=== PATIENT | male | born 1945 | race Caucasian/White ===

== ENCOUNTER → 2016-04-11 | Outpatient (CLI) | payer OTHER ==
[~2016-04-11] MED LIST: ADVIN25050 INH; ALBU0.08 INH; ALBUAER2 INH; ASPEC81 PO; ATEN-175 PO; ATOR-26 PO; CALC500C70 PO; DIGO0.2518 PO; FURO20TA PO; HYDR-5688 PO; KRIL1CAP14 PO; MOME50SP5; MULT-506 PO; SNG10 PO; XRL10 PO
[2016-04-11 12:16] LABS: HEMATOCRIT 48.1 % (42-52); MEAN CELL VOLUME 97.4 fL (80-100); MEAN CORPUSCULAR HEMOGLOBIN 32.6 pg (25-34); MEAN CORPUSCULAR HGB CONC 33.5 g/dl (32-36); PLATELET COUNT 244 K/uL (130-400); RED BLOOD COUNT 4.94 M/uL (4.7-6.1); WHITE BLOOD COUNT 9.59 K/uL (4.8-10.8)
[2016-04-11 12:26] LABS: ALT/SGPT 34 U/L (12-78); AST/SGOT 25 U/L (15-37); BLOOD UREA NITROGEN 19 mg/dl (7-18); BUN/CREATININE RATIO 20.4 (10-20); CALCIUM 8.9 mg/dl (8.5-10.1); CARBON DIOXIDE 31 mmol/L (21-32); CHLORIDE 105 mmol/L (98-107); CREATININE 0.94 mg/dl (0.60-1.40); GLUCOSE 90 mg/dl (70-99); POTASSIUM 4.4 mmol/L (3.5-5.1); SODIUM 144 mmol/L (136-145)
[2016-04-11 12:37] LABS: ALKALINE PHOSPHATASE 84 U/L (45-117)
== END | disposition home or self-care (01) ==
LOC: C.LAB1850 10:23
PROVIDERS: ATTEND Internal Medicine Cardiovascular Disease
DX: R53.83 Other fatigue (principal)

== ENCOUNTER → 2016-05-03 | Outpatient (CLI) | payer OTHER ==
--- NOTE | 2016-05-03 09:29 | DIAGNOSTIC IMAGING REPORT ---
TWO VIEW CHEST CLINICAL HISTORY: COPD. FINDINGS: PA and lateral chest radiographs are compared to study dated 04/14/2015. Correlation is made with chest CT dated 01/07/2014. The examination is degraded by large body habitus. The heart is enlarged and there is atherosclerotic calcification of the thoracic aorta. The pulmonary vasculature is noncongested. Emphysema and chronic interstitial thickening are similar to previous. There is no evidence of superimposed airspace consolidation or pleural effusion. Linear atelectasis is seen at the left lung base. There is no pneumothorax. The skeletal structures are osteopenic. A right shoulder arthroplasty is unchanged again noted. Lumbar fusion hardware is partially imaged. IMPRESSION: 1. Cardiomegaly and emphysema with no active disease in the chest. 2. No concerning pulmonary nodules are identified by x-ray. Note that chest x-ray is insensitive in screening for lung cancer. If there is strong clinical concern for lung cancer then a chest CT should be considered. Electronically signed by: Nicolas Duenas M.D. 05/03/2016 9:28 AM Dictated Date/Time: 05/03/2016 9:26 AM
== END | disposition home or self-care (01) ==
LOC: C.RAD1850 09:11
PROVIDERS: ATTEND Internal Medicine Pulmonary Disease
DX: J44.9 Chronic obstructive pulmonary disease, unspecified (principal); I51.7 Cardiomegaly

== ENCOUNTER → 2016-11-07 | Outpatient (CLI) | payer OTHER ==
[2016-11-07 12:42] LABS: BASO % 0.3 %; BASO ABS # 0.02 K/uL (0-0.2); COMPLETE YES; EOS % 2.5 %; HEMATOCRIT 47.4 % (42-52); IG% 0.2 %; LYMPH % 18.7 %; LYMPH ABS # 1.11 K/uL (1.2-3.4); MEAN CELL VOLUME 105.3 fL (80-100); MEAN CORPUSCULAR HEMOGLOBIN 36.2 pg (25-34); MEAN CORPUSCULAR HGB CONC 34.4 g/dl (32-36); MONO % 10.3 %; PLATELET COUNT 194 K/uL (130-400); WHITE BLOOD COUNT 5.94 K/uL (4.8-10.8)
[2016-11-07 12:57] LABS: ALT/SGPT 45 U/L (12-78); AST/SGOT 38 U/L (15-37); BLOOD UREA NITROGEN 19 mg/dl (7-18); BUN/CREATININE RATIO 18.6 (10-20); CALCIUM 8.5 mg/dl (8.5-10.1); CARBON DIOXIDE 28 mmol/L (21-32); CHLORIDE 105 mmol/L (98-107); GLUCOSE 141 mg/dl (70-99); SODIUM 141 mmol/L (136-145)
[2016-11-07 13:02] LABS: ALKALINE PHOSPHATASE 68 U/L (45-117); CHOLESTEROL 155 mg/dl (0-200); CHOLESTEROL/HDL RATIO 2.9; HDL CHOLESTEROL 54 mg/dl; LDL CHOLESTEROL CALCULATED 74 mg/dl; PROSTATE SPECIFIC ANTIGEN < 0.010 ng/ml (0.000-4.000); TRIGLYCERIDES 136 mg/dl (0-150); VERY LOW DENSITY LIPOPROT CALC 27 mg/dl
== END | disposition home or self-care (01) ==
LOC: C.LABBFT 08:58
PROVIDERS: ATTEND Internal Medicine
DX: E78.5 Hyperlipidemia, unspecified (principal); R53.83 Other fatigue; I25.10 Atherosclerotic heart disease of native coronary artery without angina pectoris; C61 Malignant neoplasm of prostate

== ENCOUNTER → 2017-03-13 | Outpatient (CLI) | payer OTHER ==
[2017-03-13 13:01] LABS: ESTIMATED AVERAGE GLUCOSE 128 mg/dl; HA1C FLAG Normal (Normal)
== END | disposition home or self-care (01) ==
LOC: C.LABBFT 09:21
PROVIDERS: ATTEND Physician Assistant Medical
DX: R73.09 Other abnormal glucose (principal); L03.115 Cellulitis of right lower limb

== ENCOUNTER → 2017-05-24 | Outpatient (CLI) | payer OTHER ==
[2017-05-24 12:04] LABS: BASO % 0.3 %; BASO ABS # 0.02 K/uL (0-0.2); EOS % 1.6 %; EOS ABS # 0.12 K/uL (0-0.5); HEMATOCRIT 48.2 % (42-52); HEMOGLOBIN 16.9 g/dL (14.0-18.0); IG# 0.02 K/uL (0.00-0.02); LYMPH % 17.9 %; LYMPH ABS # 1.33 K/uL (1.2-3.4); MEAN CELL VOLUME 102.8 fL (80-100); MEAN CORPUSCULAR HGB CONC 35.1 g/dl (32-36); MEAN PLATELET VOLUME 10.7 fL (7.4-10.4); MONO % 10.9 %; MONO ABS # 0.81 K/uL (0.11-0.59); NEUT ABS # 5.14 K/uL (1.4-6.5); PLATELET COUNT 212 K/uL (130-400); RED CELL DISTRIBUTION WIDTH CV 13.8 % (11.5-14.5); RED CELL DISTRIBUTION WIDTH SD 51.7 fL (36.4-46.3); WHITE BLOOD COUNT 7.44 K/uL (4.8-10.8)
[2017-05-24 12:15] LABS: ALBUMIN 3.4 gm/dl (3.4-5.0); ALT/SGPT 49 U/L (12-78); AST/SGOT 47 U/L (15-37); BLOOD UREA NITROGEN 22 mg/dl (7-18); CALCIUM 8.9 mg/dl (8.5-10.1); CARBON DIOXIDE 33 mmol/L (21-32); CREATININE 0.92 mg/dl (0.60-1.40); GLUCOSE 102 mg/dl (70-99); SODIUM 139 mmol/L (136-145)
[2017-05-24 12:18] LABS: ALKALINE PHOSPHATASE 64 U/L (45-117); TOTAL PROTEIN 7.2 gm/dl (6.4-8.2)
== END | disposition home or self-care (01) ==
LOC: C.LAB1850 10:25
PROVIDERS: ATTEND Internal Medicine Cardiovascular Disease
DX: G47.30 Sleep apnea, unspecified (principal)

== ENCOUNTER 2017-10-24 05:03 | Inpatient (IN) | payer OTHER ==
[2017-09-19 08:36] VITALS: BMI 42.0
--- NOTE | 2017-09-24 08:36 | PAT Medication Instructions ---
Service Date Sep 24, 2017. Current Home Medication List Albuterol Hfa (Ventolin Hfa), 2-4 PUFFS INH Q6H PRN for SOB/Wheezing Aspirin (Aspirin Adult Low Dose), 1 TAB PO QAM Atenolol (Tenormin), 200 MG PO BID Atorvastatin (Lipitor), 80 MG PO HS Calcium/Vitamin D (Os-Kostas 500 Plus D), 1 TAB PO BID Digoxin (Digoxin), 1 TAB PO QAM Fluticasone Prop/Salmeterol (Advair Diskus 250/50 60 Dose), 1 PUFF INH BID Furosemide (Furosemide), 2 TAB PO QAM Ipratropium [place] (Ipratropium [place]), 1 DOSE INH Q6 PRN for SOB/Wheezing Mometasone Furoate (Nasal) (Mometasone Furoate), 2 SPRAYS NA HS Montelukast Sod (Montelukast Sodium), 1 TAB PO QAM Multivitamin (Multivitamin), 1 TAB PO QPM Naproxen (Aleve), 2 TABS PO BID Potassium Ext Rel (Klor-Con), 1 TAB PO QAM Rivaroxaban (Xarelto), 2 TAB PO QAM [ Klor-Con], 10 MEQ PO BID [[place] 3 Krill Oil], 500 MG PO QAM Medication Instructions For Your Scheduled Surgery -Check with your hand embroiderer for instructions for: Rivaroxaban (Xarelto), 2 TAB PO QAM *MUST BE HELD FOR AT LEAST 72 HOURS FOR SPINAL ANESTHESIA* - Hold the following medications 2 weeks prior to surgery: [[place] 3 Krill Oil], 500 MG PO QAM - Hold the following medications 10 days prior to surgery per surgeon: Naproxen (Aleve), 2 TABS PO BID - Hold the following medications the morning of surgery: Furosemide (Furosemide), 2 TAB PO QAM Montelukast Sod (Montelukast Sodium), 1 TAB PO QAM Potassium Ext Rel (Klor-Con), 1 TAB PO QAM [ Klor-Con], 10 MEQ PO BID - Take the following medications the morning of surgery with a sip of water: Albuterol Hfa (Ventolin Hfa), 2-4 PUFFS INH Q6H PRN for SOB/Wheezing (if needed , and bring it with you the day of surgery) Aspirin (Aspirin Adult Low Dose), 1 TAB PO QAM Atenolol (Tenormin), 200 MG PO BID Digoxin (Digoxin), 1 TAB PO QAM Fluticasone Prop/Salmeterol (Advair Diskus 250/50 60 Dose), 1 PUFF INH BID Ipratropium [place] (Ipratropium [place]), 1 DOSE INH Q6 PRN for SOB/Wheezing ( if needed) - Take the following medications as scheduled the night before surgery: Albuterol Hfa (Ventolin Hfa), 2-4 PUFFS INH Q6H PRN for SOB/Wheezing (if needed) Atenolol (Tenormin), 200 MG PO BID Atorvastatin (Lipitor), 80 MG PO HS Calcium/Vitamin D (Os-Kostas 500 Plus D), 1 TAB PO BID Ipratropium [place] (Ipratropium [place]), 1 DOSE INH Q6 PRN for SOB/Wheezing ( if needed) Mometasone Furoate (Nasal) (Mometasone Furoate), 2 SPRAYS NA HS Multivitamin (Multivitamin), 1 TAB PO QPM [ Klor-Con], 10 MEQ PO BID If you have any questions please call us at [phone] or [phone] or [phone]
--- NOTE | 2017-09-24 09:01 | DIAGNOSTIC IMAGING REPORT ---
CHEST 2 VIEWS ROUTINE HISTORY: Preop. COMPARISON: Chest 05/03/2016. FINDINGS: The heart remains borderline enlarged. Mild interstitial thickening which appears to be chronic. Linear densities at the left lung base favor subsegmental atelectasis or scarring. No new focal lung consolidations. No pleural effusions. No pneumothorax. Right shoulder prosthesis and lumbar spinal fusion hardware is noted. IMPRESSION: No significant change compared to the prior study. No acute process. Electronically signed by: Sudeep Wolff M.D. 09/24/2017 9:00 AM Dictated Date/Time: 09/24/2017 8:58 AM
[2017-09-24 09:03] LABS: BASO % 0.5 %; BASO ABS # 0.03 K/uL (0-0.2); EOS % 2.6 %; EOS ABS # 0.17 K/uL (0-0.5); HEMATOCRIT 46.7 % (42-52); IG# 0.02 K/uL (0.00-0.02); LYMPH ABS # 1.16 K/uL (1.2-3.4); MEAN CELL VOLUME 102.4 fL (80-100); MEAN CORPUSCULAR HEMOGLOBIN 35.1 pg (25-34); MEAN CORPUSCULAR HGB CONC 34.3 g/dl (32-36); MEAN PLATELET VOLUME 10.1 fL (7.4-10.4); MONO % 12.1 %; MONO ABS # 0.78 K/uL (0.11-0.59); NEUT % 66.5 %; NEUT ABS # 4.28 K/uL (1.4-6.5); PLATELET COUNT 216 K/uL (130-400); RED CELL DISTRIBUTION WIDTH CV 13.5 % (11.5-14.5); RED CELL DISTRIBUTION WIDTH SD 50.2 fL (36.4-46.3); WHITE BLOOD COUNT 6.44 K/uL (4.8-10.8)
[2017-09-24 09:11] LABS: INR 1.4 (0.9-1.1); PTT PATIENT 30.7 SECONDS (21.0-31.0)
[2017-09-24 09:12] LABS: BLOOD UREA NITROGEN 17 mg/dl (7-18); CALCIUM 8.8 mg/dl (8.5-10.1); CARBON DIOXIDE 32 mmol/L (21-32); CREATININE 0.86 mg/dl (0.60-1.40); GLUCOSE 130 mg/dl (70-99); POTASSIUM 4.2 mmol/L (3.5-5.1); SODIUM 140 mmol/L (136-145)
--- NOTE | 2017-10-08 12:15 | HISTORY & PHYSICAL EXAMINATION ---
DATE OF ADMISSION: 10/24/2017 CHIEF COMPLAINT: Right hip pain, discomfort, and stiffness. HISTORY OF PRESENT ILLNESS: A 72-year-old gentleman well known to me from previous left hip replacement done 8 years ago and a troch nail done on this right side 4 years ago. He has done pretty well. He has got a long history of alcohol abuse and his left hip was done for AVN. Over the past year, he has developed increased pain and discomfort in his right hip. He did have extensive back surgery by Dr. Bravo. We have seen him in consultation and he has told him that he thinks most of his pain is coming from his hip. This does describe some degree of lateral hip pain and groin pain. He has difficulty putting his shoes and socks on. He says difficulty walking any distance. He uses a cane to try and get along for quite some time now. X-ray show progressive hip arthritis and he would like to have his right hip fixed. PAST MEDICAL HISTORY: Significant for: 1. Coronary artery disease, status post cardiac stent placement done by Dr. Luna. 2. Emphysema/COPD. 3. Sleep apnea with CPAP machine. 4. Extensive back surgery and fusion. 5. Arthritis. 6. Prostate cancer. 7. Obesity with BMI of 42. PAST SURGICAL HISTORY: Include: 1. Left hip replacement done 04/22/2009. 2. Right troch nail done 04/05/2013. 3. Right shoulder replacement. 4. Extensive back surgery. 5. Prostate surgery. 6. Umbilical hernia. ALLERGIES: OXYCODONE, LATEX. CURRENT MEDICINES: Include: 1. Xarelto 20 mg a day. 2. Digoxin 250 mcg a day. 3. Atenolol 200 mg twice a day. 4. Furosemide 20 mg a day. 5. Atorvastatin 80 mg at bedtime. 6. Advair Diskus at bedtime. 7. Albuterol 2 puffs p.r.n. 8. Ipratropium nebulizer every 6 hours p.r.n. 9. Nasonex 2 sprays at bedtime each nostril. 10. Aspirin 81 mg a day. 11. Calcium with vitamin D. 12. Multivitamin. 13. MegaRed Krill oil. 14. Montelukast 10 mg a day. 15. Klor-Con 10 mEq twice a day. 16. Aleve 2 tablets twice a day. SOCIAL HISTORY: A 72-year-old male. He is . Drinks 25 drinks per week. Does not smoke. FAMILY HISTORY: Noncontributory. REVIEW OF SYSTEMS: Significant for alcohol history. Denies any chest pain or shortness of breath. No history of DVT or PE. He is on Xarelto. PHYSICAL EXAMINATION: GENERAL: A large moderately obese middle-aged male. HEENT: Benign. NECK: Supple. No lymphadenopathy. LUNGS: Clear to auscultation. HEART: Regular rate and rhythm. ABDOMEN: Soft, nontender, nondistended. EXTREMITIES: Grossly neurovascularly intact. Examination of the right hip reveals the patient walks with antalgic gait. He comes in using a cane. He is about a 0.5 cm short on the right side compared to left. He has a very stiff hip with pain with any type of hip motion. He can internally rotate to -5. He is neurologically intact. Negative straight leg raise. X-RAYS: X-ray of the right hip reviewed. Shows advanced right hip DJD. He has got a long troch nail in place. Hip x-ray shows progressive arthritis over the past year. He does have a pretty extensive spine fusion. ASSESSMENT: A 72-year-old male 4 years out from right long troch nail for fracture and significant alcohol use with advanced right hip arthritis after previous spine surgery. He failed conservative care. I do think some of his pain is coming from his hip, but I cannot certainly guarantee him all of it by any sense. PLAN: We talked about treatment. He would like to have his hip replaced. We will take him to the operating room and do a right hip hardware removal. We are going to need to take the troch nail out and do a noncemented total hip replacement. The risks and benefits of this procedure were explained to the patient including, but not limited to DVT, PE, , infection, neurological injury, vascular injury, bleeding problem, pain, limited range of motion, stiffness, failure to relieve his symptoms, incomplete relief of symptoms, need for further surgery in future, fracture, leg length inequality, nerve palsy, dislocation, etc. The patient understands and desires to proceed. Informed consent was obtained. We did talk about stopping his Xarelto 3 days preop. We will likely have Dr. Luna follow him in the hospital along with his automotive sales associate. We will start him back on the Xarelto 24 hours postoperative at a lower dose and discharge him on therapeutic dose. We did talk to him about taking his atenolol on the morning of surgery and holding his Lasix, potassium, Aleve, and Xarelto.
[~2017-10-24] VITALS: Ht 170.2 cm; Wt 122.7 kg
[2017-10-24] VITALS (18 sets, daily range): BP systolic 103–151; BP diastolic 54–92; PULSE 54–88; TEMP 36.4–36.8; O2SAT 91–98; Ht 170.2 cm; Wt 122.7 kg
[~2017-10-24 05:03] MED LIST changes: +ADVIN25/60 INH; -ADVIN25050 INH; -ALBU0.08 INH; -ALBUAER2 INH; -ASPEC81 PO; +ASPI-589 PO; -CALC500C70 PO; -DIGO0.2518 PO; -FURO20TA PO; -HYDR-5688 PO; -KRIL1CAP14 PO; +LNX25 PO; +LSX40 PO; -MOME50SP5; +MOME6000; +NAPR1TAB9 PO; +OMEGA 3 KRILL OIL PO; +POTA-639 PO; +RRIPRATNEB INH; +VNTHFA/IN INH
[2017-10-24] MEDS ORDERED: PRLSR20 PO (05:56)
[2017-10-24] MEDS ORDERED: LACTATED RINGER'S 1000ML IV SCH (06:00)
[2017-10-24] MEDS ORDERED: METOCLOPRAMIDE HCL 10 MG TAB PO SCH (06:00)
[2017-10-24] MEDS ORDERED: ACETAMINOPHEN 500 MG TAB PO SCH (06:00)
[2017-10-24] MEDS ORDERED: FAMOTIDINE 20 MG TAB PO SCH (06:00)
[2017-10-24] MEDS ORDERED: CEFAZOLIN 3000MG IV PUSH 22.5 ML IV SCH (06:00)
[2017-10-24] MEDS ORDERED: LACTATED RINGER'S 1000ML 1,000 ML IV SCH (06:00)
[2017-10-24] MEDS ORDERED: TRANEXAMIC ACID INJ 1,000 MG x 1 Bag Preop IV SCH ×2 (06:00)
[2017-10-24] MEDS ORDERED: GABAPENTIN 300 MG CAP PO SCH (06:00)
[2017-10-24 06:05] LABS: PTT PATIENT 23.4 SECONDS (21.0-31.0)
[2017-10-24] MEDS ORDERED: BUPIVACAINE 0.5 % 5 MG/1 ML PF 10ML VIAL ONE (06:19)
[2017-10-24] MEDS ORDERED: MIDAZOLAM HCL 1 MG/ML 2ML VIAL ONE (06:27)
[2017-10-24] MEDS ORDERED: FENTANYL CITRATE INJ 50 MCG/1 ML 2 ML VIAL ONE (06:27)
[2017-10-24] MEDS ORDERED: MoRPHine SULFATE PF 1 MG/ML 10 ML AMP/VIAL ONE (06:28)
--- NOTE | 2017-10-24 06:49 | History & Physical Bridge Note ---
H&P Re-Evaluation Bridge Note: I have examined the patient, reviewed the History & Physical and in the interval since the performance of the History & Physical I have noted the following changes of clinical significance: No changes noted
[2017-10-24] MEDS ORDERED: BACITRACIN 50000 UNIT VIAL ONE (06:50)
[2017-10-24] MEDS ORDERED: BUPIVACAINE/EPINEPHRINE 0.5% MPF 1:200,000 30 ML VIAL ONE (06:50)
[2017-10-24] MEDS ORDERED: ONDANSETRON INJ 2 MG/ML 2 ML VIAL ONE (08:17)
[2017-10-24] MEDS ORDERED: PROPOFOL IV EMULSION 10 MG/ML 20 ML VIAL ONE ×2 (08:17→09:10)
[2017-10-24] MEDS ORDERED: LIDOCAINE HCL 2% 2 ML VIAL (20MG/ML) ONE (08:17)
[2017-10-24] MEDS ORDERED: SODIUM CHLORIDE 0.9% 1000ML 1,000 ML IV PRN (08:59)
[2017-10-24] MEDS ORDERED: NALOXONE HCL INJ 0.08 MG in SYRINGE 1.8 ML IV PRN (08:59)
[2017-10-24] MEDS ORDERED: LACTATED RINGER'S 1000ML 500 ML IV PRN (08:59)
[2017-10-24] MEDS ORDERED: NALOXONE HCL INJ 1 MG in SODIUM CHLORIDE 0.9% 1000ML 1,000 ML IV PRN ×4 (08:59)
[2017-10-24] MEDS ORDERED: ONDANSETRON INJ 2 MG/ML 2 ML VIAL IV PRN ×2 (09:00)
[2017-10-24] MEDS ORDERED: NALBUPHINE HCL INJ 10 MG/ML 1ML AMP IV PRN (09:00)
[2017-10-24] MEDS ORDERED: NO NARCOTICS OR SEDATIVES SCH (09:00)
[2017-10-24] MEDS ORDERED: NALOXONE HCL 0.4 MG/1 ML VIAL/CARP IV PRN (09:00)
[2017-10-24] MEDS ORDERED: EpHEDrine SULFATE INJ 50 MG/ML AMP IV PRN ×2 (09:00)
[2017-10-24] MEDS ORDERED: MoRPHine SULFATE PF 1 MG/ML 10 ML AMP/VIAL EPI PRN (09:00)
[2017-10-24] MEDS ORDERED: PROMETHAZINE HCL INJ 12.5 MG in SODIUM CHLORIDE 0.9% 50ML 50 ML IV PRN (09:00)
[2017-10-24] MEDS ORDERED: MEPERIDINE HCL 25 MG/ML CARP IV PRN ×2 (09:00)
[2017-10-24] MEDS ORDERED: PHENYLEPHRINE 100MCG/ML 5ML SYR IV PRN (09:00)
[2017-10-24] MEDS ORDERED: DiphenhydrAMINE HCL 50 MG/ML VIAL IV PRN (09:00)
[2017-10-24] MEDS ORDERED: KETOROLAC TROMETHAMINE 15 MG/ML VIAL IV. PRN ×2 (09:00)
[2017-10-24] MEDS ORDERED: ATROPINE SULFATE 0.1 MG/ML 5ML SYR IV PRN (09:00)
[2017-10-24] MEDS ORDERED: TAMSULOSIN HCL 0.4 MG CAP PO PRN (09:30)
[2017-10-24] MEDS ORDERED: ALUMINUM/MAGNESIUM/SIMETH (MAALOX MAX) 30 ML UDC PO PRN (09:30)
[2017-10-24] MEDS ORDERED: IPRATROPIUM BROMIDE NEB SOLN 0.02% 2.5 ML VIAL INH PRN (09:30)
[2017-10-24] MEDS ORDERED: BISACODYL 10 MG SUPP PR PRN (09:30)
[2017-10-24] MEDS ORDERED: ALBUTEROL HFA 8 GM INHALER INH PRN (09:30)
[2017-10-24] MEDS ORDERED: SILVER SULFADIAZINE 1% CR 50 GM JAR EXT PRN (09:30)
[2017-10-24] MEDS ORDERED: MAGNESIUM HYDROXIDE SUSP 30 ML UDC PO PRN (09:30)
--- NOTE | 2017-10-24 09:30 | [facility] Post Operative Brief Note ---
Immediate Operative Summary Operative Date Oct 24, 2017. Pre-Operative Diagnosis Advanced Right Hip Degenerative Joint Disease, With A Long Troch Nail In Place. Post-Operative Diagnosis Advanced Right Hip Degenerative Joint Disease, With A Long Troch Nail In Place. Procedure(s) Performed Right Femur Hardware Removal Right Uncemented Total Hip Arthroplasty Surgeon Rug Measurer Surgeon(s) ALEXANDRA Hensley Estimated Blood Loss 400ML Findings Consistent with Post-Op Diagnosis Fluids (cc crystalloids) 1900 cc Specimens A. Removed Hardware Right Hip b. Right Femoral Head Drains None Anesthesia Type Spinal MAC Complication(s) none Disposition Accompanied Pt To Recover: yes Disposition: Recovery Room / PACU Overlapping Procedure I was present for: the critical portions of procedure. I was immediately available: during the entire case
--- NOTE | 2017-10-24 10:21 | DIAGNOSTIC IMAGING REPORT ---
R PELVIS/UNILATERAL HIP 1 VIEW CLINICAL HISTORY: IN PACU - A/P PELVIS and LATERAL HIP INCLUDING ALL OF IMPLANT postoperative evaluation COMPARISON: None. DISCUSSION: Anatomic alignment posttotal right hip arthroplasty. Good contact between prosthetic and underlying bone. Pre-existing total left hip arthroplasty with postoperative changes to the lumbosacral region. Expected soft tissue postoperative change IMPRESSION: Anatomic alignment posttotal right hip arthroplasty. The above report was generated using voice recognition software. It may contain grammatical, syntax or spelling errors. Electronically signed by: Shane Pastor M.D. 10/24/2017 10:20 AM Dictated Date/Time: 10/24/2017 10:18 AM
--- NOTE | 2017-10-24 11:00 | Anesthesiology Progress Note ---
Anesthesia Post Op Note Date & Time Oct 24, 2017 at 11:00 Vital Signs Pain Intensity: 0 Vital Signs Past 12 Hours Date Time Temp Pulse Resp B/P (MAP) Pulse Ox O2 Delivery O2 Flow Rate FiO2 10/24/17 10:15 98 Nasal Cannula 2.0 10/24/17 10:15 98 Nasal Cannula 2.0 10/24/17 10:15 36.5 70 16 130/78 (95) 98 Nasal Cannula 2.0 10/24/17 10:00 36.4 83 16 122/84 97 Nasal Cannula 2 10/24/17 09:50 68 16 146/77 97 Nasal Cannula 2 10/24/17 09:40 60 16 156/75 97 Nasal Cannula 2 10/24/17 09:31 36.4 65 16 148/88 97 Nasal Cannula 2 10/24/17 06:05 36.4 88 20 133/66 91 Room Air Notes Mental Status: alert / awake / arousable, participated in evaluation Pt Amnestic to Procedure: Yes Nausea / Vomiting: adequately controlled Pain: adequately controlled Airway Patency, RR, SpO2: stable & adequate BP & HR: stable & adequate Hydration State: stable & adequate Anesthetic Complications: no major complications apparent
[2017-10-24] MEDS: CEFAZOLIN IV 2,000 MG in SYRINGE 0 ML IV SCH ×2 (13:34→21:00)
[2017-10-24] MEDS: FERROUS GLUCONATE 324 MG TAB PO SCH ×2 (13:34→17:40)
[2017-10-24] MEDS: D5W AND 1/2NSS + 20MEQ KCL 1,000 ML IV SCH ×2 (13:34→19:09)
[2017-10-24] MEDS: ACETAMINOPHEN 500 MG TAB PO SCH ×2 (13:35→21:02)
--- NOTE | 2017-10-24 14:40 | PROGRESS NOTE ---
DATE: 10/24/2017 SUBJECTIVE: A 72-year-old gentleman postop from a right total hip replacement and hardware removal of a troch nail. He is doing pretty well. Not having any pain yet. No chest pain or shortness of breath. Not feeling dizzy or lightheaded. OBJECTIVE: VITAL SIGNS: Temperature is 36.5. Vital signs stable. GENERAL: Physical examination reveals a healthy, pleasant, middle-aged male. He is sitting up in bed and looks quite comfortable. LUNGS: Clear to auscultation. HEART: Regular rate and rhythm. ABDOMEN: Soft, nontender, nondistended. EXTREMITIES: Grossly neurovascularly intact except as follows: Examination of the right leg reveals his dressing to be clean, dry and intact. His hip is located. Leg lengths are equal. Thigh is soft and supple. He can dorsiflex and plantarflex his foot appropriately. He is neurologically intact. X-RAYS: X-ray of the right hip from recovery room reviewed. It shows a right uncemented total hip arthroplasty. Components looked to be in good position. No signs of problems. ASSESSMENT: A 72-year-old gentleman postop from a right femur hardware removal and total hip replacement for degenerative arthritis. He is doing well. Hip is located. He is neurologically intact. His pain is controlled. He does have a significant alcohol history and we are going to provide him with some DVT prophylaxis. PLAN: 1. DVT prophylaxis including thigh-high TEDs, SCDs, and back on his Xarelto at a prophylactic dose. 2. PT/OT. He can weightbear as tolerated. Right total hip protocol. 3. Pain control. Doing reasonably well with current pain regimen. 4. IV antibiotics x24 hours. 5. Alcohol history. We put him on thiamine and folic acid and p.r.n. Librium. We will consult medicine to help manage this. 6. Disposition: Plan to discharge to home with some home health once adequately recovered.
--- NOTE | 2017-10-24 17:16 | Medical Consult ---
Consultation Date of Consultation: Oct 24, 2017. Attending Physician: Colton Ty M.D. Reason for Consultation: Post Op management History of Present Illness 72y/oM with hx of CAD s/p RCA stent, PAF, HLD, significant alcohol abuse, emphysema/COPD, SHIRA with CPAP use, prostate cancer, arthritis, back surgery/ fusion and obesity admitted post R total hip arthroplasty. Consultation placed for medical management in the setting of severe alcohol abuse. Pt denies any discomfort or symptoms at this time. Pain well controlled on ATC tylenol. Pt has been drinking 4 seagrams 12oz with 7up each night from 4:30-8:30 for a long time. He last drank last night. Denies any hx of withdrawal or seizures. He denied having any during previous hospitalizations as well. Denies any palpitations, tremors or agitation at this time. Past Medical/Surgical History CAD s/p RCA stent PAF HLD significant alcohol abuse emphysema/COPD SHIRA with CPAP use prostate cancer arthritis back surgery/fusion obesity Family History FH: cancer Social History Smoking Status: Former Smoker Drug Use: none Marital Status: Housing Status: lives with significant other Occupation Status: employed Allergies Coded Allergies: Adhesives (Verified Allergy, Mild, TAPE-RASH, 10/03/17) Latex (Verified Allergy, Mild, RASH, 10/03/17) Oxycodone (Verified Allergy, Unknown, RASH, 10/03/17) Home Medications Reported Home Medications Medications Dose Route/Sig Max Daily Dose Days Date Category Prilosec (Omeprazole) 20 Mg Capcr 20 Mg PO DAILY 10/24/17 Reported Klor-Con (Potassium Chloride) 20 Meq Tabcr 1 Tab PO QAM 09/19/17 Reported Aleve (Naproxen) 220 Mg Tab 2 Tabs PO BID 09/19/17 Reported Advair Diskus 250/50 60 Dose (Fluticasone Prop/Salmeterol) 1 Ea Aerp 1 Puff INH BID 09/19/17 Reported [[place] 3 Krill Oil] 500 Mg PO QAM 09/19/17 Reported Mometasone Furoate (Mometasone Furoate (Nasal)) 50 Mcg/Act Spr 2 Sprays NA HS 09/19/17 Reported Ipratropium [place] 0.5 Mg/2.5 Ml Nebu 1 Dose INH Q6 PRN 09/19/17 Reported Furosemide 40 Mg Tab 2 Tab PO QAM 09/19/17 Reported Digoxin 0.25 Mg Tab 1 Tab PO QAM 09/19/17 Reported Aspirin Adult Low Dose (Aspirin) 81 Mg Tab 1 Tab PO QAM 09/19/17 Reported Ventolin Hfa (Albuterol) 200 Puffs/53454 Mcg Aers 2-4 Puffs INH Q6H PRN 09/19/17 Reported Montelukast Sodium (Montelukast Sod) 10 Mg Tab 1 Tab PO QAM 09/19/17 Reported Lipitor (Atorvastatin Calcium) 80 Mg Tab 80 Mg PO HS 04/14/15 Reported Xarelto (Rivaroxaban) 10 Mg Tab 1 Tab PO QAM 04/14/15 Reported Tenormin (Atenolol) 100 Mg Tab 200 Mg PO BID 04/14/15 Reported Multivitamin (Multivitamins) Tab 1 Tab PO QPM 05/03/08 Reported Current Inpatient Medications Current Inpatient Medications Medications (Trade) Dose Ordered Sig/[place] Route Start Time Stop Time Status Last Admin Dose Admin Naloxone HCl (Narcan Inj) 0.1 mg UD PRN IV 10/24/17 09:00 10/25/17 00:00 Diphenhydramine HCl (Benadryl Inj) 12.5 mg Q6H PRN IV 10/24/17 09:00 10/25/17 00:00 Nalbuphine HCl (Nubain Inj) 5 mg Q10M PRN IV 10/24/17 09:00 10/25/17 00:00 Naloxone HCl 1 mg/ Sodium Chloride 1,002.5 ml @ 50 mls/hr Q20H3M PRN IV 10/24/17 08:59 10/25/17 00:00 Ondansetron HCl (Zofran Inj) 4 mg Q6H PRN IV 10/24/17 09:00 10/25/17 00:00 Promethazine HCl 12.5 mg/Sodium Chloride 50.5 ml @ 200 mls/hr Q6H PRN IV 10/24/17 09:00 10/25/17 00:00 Naloxone HCl 1 mg/ Sodium Chloride 1,002.5 ml @ 50 mls/hr Q20H3M PRN IV 10/24/17 08:59 10/25/17 00:00 Ketorolac Tromethamine (Toradol Inj) 15 mg Q6H PRN IV. 10/24/17 09:00 10/25/17 00:00 Meperidine HCl (Demerol Inj) 25 mg Q15M PRN IV 10/24/17 09:00 10/25/17 00:00 Miscellaneous Information (Dc Intraspinal Morphine) 1 ea TODAY@0000 N/A 10/25/17 00:00 10/25/17 00:01 Miscellaneous Information (No Narcotics Or Sedatives) 1 ea UD N/A 10/24/17 09:00 10/25/17 00:00 Naloxone HCl 0.08 mg/Syringe 2 ml @ 1 mls/min Q2M PRN IV 10/24/17 08:59 10/25/17 00:00 Lactated Ringer's 500 ml @ 999 mls/hr Q31M PRN IV 10/24/17 08:59 10/25/17 00:00 Ephedrine Sulfate (EpHEDrine SULFATE INJ) 10 mg Q5M PRN IV 10/24/17 09:00 10/25/17 00:00 Morphine Sulfate (Duramorph Pf Inj) TODAY PRN EPI 10/24/17 09:00 10/25/17 00:00 Sodium Chloride 1,000 ml @ 15 mls/hr Q24H PRN IV 10/24/17 08:59 10/25/17 00:00 Potassium Chloride/Dextrose/ Sod Cl 1,000 ml @ 150 mls/hr Q6H40M IV 10/24/17 12:00 10/25/17 09:29 10/24/17 13:34 150 MLS/HR Ketorolac Tromethamine (Toradol Inj) 15 mg Q6H IV. 10/25/17 02:00 10/25/17 20:01 Acetaminophen (Tylenol Tab) 1,000 mg Q8H PO 10/24/17 14:00 11/23/17 09:29 10/24/17 13:35 1,000 MG Magnesium Hydroxide (Milk Of Magnesia Susp) 30 ml Q6H PRN PO 10/24/17 09:30 11/23/17 09:29 Bisacodyl (Dulcolax Supp) 10 mg DAILY PRN [place] 10/24/17 09:30 11/23/17 09:29 Senna (Senokot Tab) 17.2 mg HS PO 10/24/17 21:00 11/23/17 20:59 Docusate Sodium (coLACE CAP) 100 mg BID PO 10/24/17 21:00 11/23/17 20:59 Al Hydrox/Mg Hydrox/Simethicone (Maalox Max Susp) 15 ml Q4H PRN PO 10/24/17 09:30 11/23/17 09:29 Zolpidem Tartrate (Ambien Tab) 5 mg HSZ PRN PO 10/25/17 00:01 11/24/17 00:00 Ondansetron HCl (Zofran Inj) 4 mg Q6H PRN IV 10/25/17 00:01 11/24/17 00:00 Metoclopramide HCl (Reglan Inj) 10 mg Q6H PRN IV 10/25/17 00:01 11/24/17 00:00 Ferrous Gluconate (Ferrous Gluconate Tab) 324 mg TIDM PO 10/24/17 12:30 11/23/17 12:29 10/24/17 13:34 324 MG Silver Sulfadiazine (Silvadene 1% Crm 50GM Jar) 1 appln BID PRN EXT 10/24/17 09:30 11/23/17 09:29 Tamsulosin HCl (Flomax Cap) 0.4 mg QAM PRN PO 10/24/17 09:30 11/23/17 09:29 Cefazolin Sodium 2000 mg/Syringe 15 ml @ 3.75 mls/ min Q8H IV 10/24/17 14:00 10/24/17 22:03 10/24/17 13:34 3.75 MLS/MIN Tapentadol (Nucynta Er Tab) 50 mg BID PO 10/25/17 09:00 11/24/17 08:59 Hydromorphone HCl (Dilaudid Inj) 0.5 mg Q1H PRN IV 10/25/17 00:01 11/08/17 00:00 Hydromorphone HCl (Dilaudid Tab) 2 mg Q4H PRN PO 10/25/17 00:01 11/08/17 00:00 Albuterol (Ventolin Hfa Inhaler) prn Q6H PRN INH 10/24/17 09:30 11/23/17 09:29 Aspirin (Ecotrin Tab) 81 mg QAM PO 10/25/17 09:00 11/24/17 08:59 Atenolol (Tenormin Tab) 200 mg BID PO 10/24/17 21:00 11/23/17 20:59 Atorvastatin Calcium (Lipitor Tab) 80 mg HS PO 10/24/17 21:00 11/23/17 20:59 Digoxin (Lanoxin Tab) 0.25 mg DAILY@1600 PO 10/25/17 16:00 11/24/17 15:59 Salmeterol Xinafoate/ Fluticasone (Advair Diskus 250/50 Inh) 1 puff BID INH 10/24/17 21:00 11/23/17 20:59 Furosemide (Lasix Tab) 80 mg QAM PO 10/25/17 09:00 11/24/17 08:59 Ipratropium [place] (Atrovent 0.02% 0.5MG/2.5ML Neb) 0.5 mg Q6 PRN INH 10/24/17 09:30 11/23/17 09:29 Montelukast Sodium (Singulair Tab) 10 mg QAM PO 10/25/17 09:00 11/24/17 08:59 Multivitamins (Multivitamin Tab) 1 tab QPM PO 10/24/17 21:00 11/23/17 20:59 Potassium Chloride (Klor-Con Tab) 20 meq QAM PO 10/25/17 09:00 11/24/17 08:59 Fluticasone Propionate (Flonase Nasal [place]) 2 sprays HS NA 10/24/17 21:00 11/23/17 20:59 Pantoprazole Sodium (Protonix Tab) 40 mg QAM PO 10/25/17 09:00 11/24/17 08:59 Thiamine HCl (Vitamin B-1 Tab) 50 mg QAM PO 10/25/17 09:00 11/24/17 08:59 Folic Acid (Folvite Tab) 1 mg QAM PO 10/25/17 09:00 11/24/17 08:59 Chlordiazepoxide (Librium Cap) 25 mg Q8H PRN PO 10/25/17 00:01 11/24/17 00:00 Rivaroxaban (Xarelto Tab) 10 mg DAILY PO 10/25/17 10:00 11/24/17 09:59 Review of Systems Constitutional: No fever, No chills Respiratory: No shortness of breath Cardiovascular: No chest pain Abdomen: No pain, No nausea, No vomiting, No diarrhea, No constipation Musculoskeletal: + problem reported (denied any R hip discomfort) Genitourinary - Male: No dysuria Physical Exam Date Time Temp Pulse Resp B/P (MAP) Pulse Ox O2 Delivery O2 Flow Rate FiO2 10/24/17 16:15 15 92 10/24/17 15:40 Nasal Cannula 2.0 10/24/17 15:15 18 97 10/24/17 14:59 36.6 71 18 134/76 (95) 97 Nasal Cannula 2.0 10/24/17 13:47 61 15 103/54 (70) 95 10/24/17 13:25 61 18 125/67 (86) 97 10/24/17 12:15 54 18 147/92 (110) 97 10/24/17 11:15 60 18 151/77 (101) 97 10/24/17 10:45 62 18 132/85 (101) 95 10/24/17 10:15 98 Nasal Cannula 2.0 10/24/17 10:15 98 Nasal Cannula 2.0 10/24/17 10:15 36.5 70 16 130/78 (95) 98 Nasal Cannula 2.0 10/24/17 10:00 36.4 83 16 122/84 97 Nasal Cannula 2 10/24/17 09:50 68 16 146/77 97 Nasal Cannula 2 10/24/17 09:40 60 16 156/75 97 Nasal Cannula 2 10/24/17 09:31 36.4 65 16 148/88 97 Nasal Cannula 2 10/24/17 06:05 36.4 88 20 133/66 91 Room Air General Appearance: no apparent distress Head: normocephalic, atraumatic Eyes: normal inspection ENT: hearing grossly normal Respiratory/Chest: lungs clear, normal breath sounds, no respiratory distress Cardiovascular: regular rate, rhythm, no murmur Abdomen/GI: normal bowel sounds, non tender, soft Back: normal inspection Extremities/Musculoskelatal: no calf tenderness, no pedal edema, + pertinent finding (R hip dressing C/D/I, good distal pulses; skin warm and dry) Neurologic/Psych: alert Skin: normal color, warm/dry Laboratory Results Last 24 Hours Test 10/24/17 05:49 Prothrombin Time 10.9 SECONDS Prothromb Time International Ratio 1.0 Activated Partial Thromboplast Time 23.4 SECONDS Partial Thromboplastin Ratio 0.9 Assessment & Plan 72y/oM with hx of CAD s/p RCA stent, PAF, HLD, significant alcohol abuse, emphysema/COPD, SHIRA with CPAP use, prostate cancer, arthritis, back surgery/ fusion and obesity admitted post R total hip arthroplasty. Pain well controlled on current regimen and otherwise asymptomatic. R hip total arthroplasty - pain well managed on: Tylenol 1g q8H. Also has Toradol 15mg IV Q6H and Dilaudid 0.5mg Q1H, and 2mmg Q4H PRN - D5W 1/2NS + 20KCL at 150mls/hr - PT/OT with WBAT - DVT prop: Xarelt will resume tomorrow and JOSELIN/SCDs Alcohol abuse - Drinks 4 - 12oz Seagrams per night - no concern for withdrawal at this time; no hx of withdrawal/seizures - Continue Librium 25mg Q8H PRN - Continue Thiamine 50mg QAM and Folic acid 1mg QAM - Continue to monitor for withdrawal symptoms CAD s/p stent in RCA/HLD/PAF - Continue Atenolol, Digoxin, Lasix, Atorvastatin, Aspirin - Continue Xarelto tomorrow Emphysema/COPD - Continue Advair BID - Continue Albuterol and Ipratropium PRN - Continue Nasonex and Montelukast SHIRA - Continue home CPAP FEN/GI - Zofran and Reglan PRN for nausea - Continue Protonix DVT prop: Xarelto continue tomorrow; SCD/TEDs Full Code Dispo: pending clinical improvement Resident Physician Supervision Note: I interviewed and examined the patient. Discussed with Dr. Jovany Aponte and agree with findings and plan as documented in the note. Any exceptions or clarifications are listed here: Eventhough patient has history of alcohol abuse, patient is not exhibiting signs of withdrawal. Will continue to monitor patient. In regards to his COPD and emphysema, will continue his home meds as noted above. Documented By: Lucio Steel
[2017-10-24] MEDS: FLUTICASONE PROPIONATE NA SPR 16 GM BTL SCH (21:01)
[2017-10-24] MEDS: FLUTICASONE/SALMETEROL 250/50 (ADVAIR) 14 PUFF/1 INHALER INH SCH (21:01)
[2017-10-24] MEDS: SENNA 8.6 MG TAB PO SCH (21:01)
[2017-10-24] MEDS: ATORVASTATIN 40 MG TAB PO SCH (21:02)
[2017-10-24] MEDS: DOCUSATE SODIUM 100 MG CAP PO SCH (21:03)
[2017-10-24] MEDS: MULTIVITAMIN TAB PO SCH (21:03)
[2017-10-25] VITALS (9 sets, daily range): BP systolic 94–133; BP diastolic 59–79; PULSE 58–99; TEMP 36.4–37; O2SAT 88–98
[2017-10-25] MEDS ORDERED: DC INTRASPINAL MORPHINE SCH
[2017-10-25] MEDS ORDERED: ONDANSETRON INJ 2 MG/ML 2 ML VIAL IV PRN (00:01)
[2017-10-25] MEDS ORDERED: METOCLOPRAMIDE HCL INJ 5 MG/ML 2 ML VIAL IV PRN (00:01)
[2017-10-25] MEDS ORDERED: HYDROmorphone HCL 2 MG TAB PO PRN (00:01)
[2017-10-25] MEDS ORDERED: CHLORDIAZEPOXIDE 25 MG CAP PO PRN (00:01)
[2017-10-25] MEDS ORDERED: HYDROmorphone INJ 0.5 MG/0.5 ML SYR IV PRN (00:01)
[2017-10-25] MEDS ORDERED: ZOLPIDEM TARTRATE 5 MG TAB PO PRN (00:01)
[2017-10-25] MEDS: D5W AND 1/2NSS + 20MEQ KCL 1,000 ML IV SCH ×2 (01:38→08:00)
[2017-10-25] MEDS: KETOROLAC TROMETHAMINE 15 MG/ML VIAL IV. SCH ×4 (01:39→19:54)
[2017-10-25] MEDS: ACETAMINOPHEN 500 MG TAB PO SCH ×3 (05:56→21:51)
[2017-10-25 06:07] LABS: BASO % 0.1 %; BASO ABS # 0.01 K/uL (0-0.2); EOS % 2.2 %; EOS ABS # 0.15 K/uL (0-0.5); HEMATOCRIT 40.7 % (42-52); HEMOGLOBIN 13.5 g/dL (14.0-18.0); IG# 0.02 K/uL (0.00-0.02); LYMPH % 14.6 %; LYMPH ABS # 1.01 K/uL (1.2-3.4); MEAN CELL VOLUME 104.9 fL (80-100); MEAN CORPUSCULAR HEMOGLOBIN 34.8 pg (25-34); MEAN CORPUSCULAR HGB CONC 33.2 g/dl (32-36); MEAN PLATELET VOLUME 10.1 fL (7.4-10.4); MONO % 7.8 %; MONO ABS # 0.54 K/uL (0.11-0.59); NEUT ABS # 5.19 K/uL (1.4-6.5); PLATELET COUNT 155 K/uL (130-400); RED CELL DISTRIBUTION WIDTH CV 13.4 % (11.5-14.5); RED CELL DISTRIBUTION WIDTH SD 51.4 fL (36.4-46.3); WHITE BLOOD COUNT 6.92 K/uL (4.8-10.8)
[2017-10-25 06:44] LABS: CALCIUM 7.8 mg/dl (8.5-10.1); CREATININE 0.75 mg/dl (0.60-1.40); POTASSIUM 4.4 mmol/L (3.5-5.1)
--- NOTE | 2017-10-25 07:27 | Anesthesiology Progress Note ---
Anesthesia Post Op Note Date & Time Oct 25, 2017 at 07:26 Vital Signs Pain Intensity: 1.0 Vital Signs Past 12 Hours Date Time Temp Pulse Resp B/P (MAP) Pulse Ox O2 Delivery O2 Flow Rate FiO2 10/25/17 07:02 36.4 58 18 122/72 (89) 98 2.0 10/25/17 02:51 37.0 75 17 120/64 (82) 97 Nasal Cannula 2.0 10/25/17 00:00 Nasal Cannula 2.0 10/25/17 00:00 16 97 10/24/17 22:56 36.6 76 16 138/82 (100) 91 Nasal Cannula 2.0 10/24/17 22:14 15 96 10/24/17 21:20 17 97 10/24/17 20:30 18 97 Notes Mental Status: alert / awake / arousable, participated in evaluation Pt Amnestic to Procedure: Yes Nausea / Vomiting: adequately controlled Pain: adequately controlled Airway Patency, RR, SpO2: stable & adequate BP & HR: stable & adequate Hydration State: stable & adequate Neuraxial Anesthesia: sensory block resolved Anesthetic Complications: no major complications apparent
--- NOTE | 2017-10-25 07:51 | OPERATIVE REPORT ---
DATE OF OPERATION: 10/24/2017 SURGEON: Colton Ty MD PLANT QUALITY MANAGER: ALEXANDRA Holden PREOPERATIVE DIAGNOSIS: Right hip degenerative joint disease status post intramedullary nailing for a previous hip fracture. POSTOPERATIVE DIAGNOSIS: Same. PROCEDURE PERFORMED: 1. Right femoral trochanteric nail removal. 2. Right uncemented total hip arthroplasty. COMPLICATIONS: None. ESTIMATED BLOOD LOSS: 400 mL. FLUID REPLACEMENT: 1900 mL crystalloid fluid replacement. ANESTHESIA: Spinal. DRAINS: None. SPECIMENS: 1. Right femoral head sent for pathology. 2. Right femoral hardware sent for gross specimen. OPERATIVE INDICATIONS: The patient is a 72-year-old gentleman who is 4 years out from IM nailing of a right intertrochanteric fracture. He did well, but over the past year or so, he has developed markedly increasing leg pain. He actually underwent a pretty extensive spine surgery without much relief. X-rays show progressive hip arthritis and patient elected to proceed with operative treatment of his hip pathology. OPERATIVE FINDINGS: Operative findings were advanced right hip degenerative joint disease. Extensive grade 4 [id number] disease of the femoral head and acetabulum. He had a fairly large joint effusion. OPERATIVE IMPLANTS: Operative implants consisted of: 1. Biomet G7 size 52 mm acetabular shell. 2. A 6.5 cancellous acetabular screws, 1 at 35 mm length and one at 20 mm length. 3. Highly cross-linked polyethylene liner with a 52 mm outer diameter and 36 mm inner diameter. 4. An apex hole eliminator. 5. DePuy size 12 small stature AML femoral stem. 6. A +8.5/36 mm metal articular ball. OPERATIVE PROCEDURE: The patient taken to the operating room, identified, and placed on the operating table in supine position. All contact areas were appropriately padded. IV antibiotics were provided by anesthesia team. A spinal anesthetic had been implemented in the holding area. Menendez catheter was placed in sterile fashion. The patient was then placed in the left lateral decubitus position. An axillary roll was placed. [facility] hip positioner was used for positioning. The hip was then prepped and draped in the usual sterile fashion. A posterolateral approach to the right hip was then performed through a curvilinear incision centered over the greater trochanter. I did have to make a different incision posterior to his previous hip incision. I did incorporate the distal aspect of the incision with his helical blade incision. Sharp dissection was carried through subcutaneous tissue down to the level of the IT band and gluteal fascia. The IT band and gluteal fascia were incised longitudinally in line with the skin incision. The underlying greater trochanteric bursa was excised. The piriformis and external rotators and posterior capsule were then released from the posterior aspect of the femur as a single layer as his hip was significantly contracted and difficult to internally rotate. Great care was taken throughout the procedure to protect the sciatic nerve at all times. Hip was internally rotated and dislocated. At this point, I elected to proceed with hardware removal. The hip was then once again relocated. I made an incision in the hip abductor muscles and used a curette to find the proximal aspect of the troch nail. It was buried in bone and I had to remove this. I then threaded the extraction device in and loosened the set screw. I then made an incision in the vastus lateralis in the area of the helical blade. We also had to define this as it was buried in bone. Once found, I threaded the extractor into this and removed the helical blade. I then made a stab incision distally over the distal interlocking hole. I made an incision through the IT band and down to the bone and removed the distal interlocking screw. I then irrigated that wound extensively and injected locally with about 10 mL of 0.5% Marcaine with epinephrine and closed the IT band with #1 Vicryl suture in running fashion and the subcutaneous tissues with 2-0 Dexon suture in a buried interrupted fashion. Attention was then drawn back to the hip. I then removed the IM nail with a SLAP hammer. I then made a femoral neck osteotomy cut with the final cut about 10 mm above the lesser trochanter. Femoral head was removed and sent for pathology. The femur was retracted anteriorly. Attention was then drawn to the acetabulum. The acetabulum labrum was excised. The pulvinar fat was excised. Sequential reaming of the acetabulum was then performed beginning with a size 45 reamer and progressing up to 51. A 52 mm Biomet G7 acetabular shell was then placed in about 40 degrees of lateral opening and 20 degrees of anteversion. It was fixed with two 6.5 cancellous acetabular screws. A trial liner was placed. Attention was then drawn to the femur. The proximal femur was entered with a [employer] cutter followed by canal finder and lateralizing reamer. I reamed and even started getting chatter little bit of a 10. We reamed up to 11.5. I did not think I could get any bigger implant in so we stopped. I then broached beginning with size 10.5 broach and progressing up to a 12 small. We got good fit with this. Calcar reamer was used to smoothen off the calcar. I then trialed the hip. I elected to use a +8.5 articular ball. It created soft tissue tension appropriately and was fully stable in full extension and external rotation and flexion to 90 degrees, internal rotation to 60 degrees. I knew this was a little longer neck than on his other side, but I felt the neck was a little bit lower and the soft tissue tension was looser. We elected to place these implants. All trial implants were removed. An apex hole eliminator was placed. Highly cross-linked polyethylene liner was placed. A size 12 small stature AML femoral stem was impacted in position. We got good fit. I relocated the hip. Attention was then drawn toward closing. The wound was irrigated with copious amounts of pulsatile lavage solution. I did inject locally with 50 mL of 0.5% Marcaine with epinephrine. The posterior capsule and external rotators were repaired as a single layer through drill holes in the posterior trochanter with #2 Ti-Cron suture. I did repair a little bit of gluteal sling with #1 Vicryl suture which had been taken off to remove the helical blade. The IT band and gluteal fascia were then closed with #1 PDS suture in running fashion. The subcutaneous tissues were closed with #2 Vicryl suture in a buried interrupted fashion. The subcutaneous tissue was then closed with 2-0 Dexon suture in a buried interrupted fashion. Both incisions were then closed with skin garrett. The leg was then cleaned and dried and a sterile dressing of Xeroform, 4 x 4, sterile ABD pad and foam tape was applied. The patient was then transferred to the recovery room in stable condition. The patient tolerated the procedure well with no complications. All needle and sponge counts were correct at the end of the operation. I attest to the content of the Intraoperative Record and any orders documented therein. Any exceptions are noted below. TONIE
--- NOTE | 2017-10-25 08:09 | PROGRESS NOTE ---
DATE: 10/25/2017 SUBJECTIVE: A 72-year-old gentleman, postop day 1, from a right femur hardware removal and total hip replacement. He is doing well. Really not having much pain. No chest pain, no shortness of breath. Not feeling dizzy or lightheaded. OBJECTIVE: VITAL SIGNS: Temperature is 36.4. Stable. GENERAL: Examination shows a pleasant middle-aged male. He is lying in bed and looks pretty comfortable. EXTREMITIES: Examination of the right hip and leg reveals the leg to be well positioned. His dressing is clean, dry, and intact. His thigh is soft and supple. Hip is located. He is neurologically intact. LABORATORY DATA: Hemoglobin 13.5, hematocrit 40.7. Electrolytes are stable. ASSESSMENT: A 72-year-old gentleman postop day 1 from right total hip replacement and hardware removal. He is doing pretty well. Pretty significant operation. His pain is controlled. His hip is located. He is neurologically intact. PLAN: 1. DVT prophylaxis including thigh-high TEDs, SCDs, and back on Xarelto. 2. PT/OT. Weight bear as tolerated. Right total hip protocol. 3. Pain control, doing well with current pain regimen. 4. Disposition: Plan is to discharge to home with some home health once adequately recovered.
[2017-10-25] MEDS: FLUTICASONE/SALMETEROL 250/50 (ADVAIR) 14 PUFF/1 INHALER INH SCH ×2 (08:21→20:00)
[2017-10-25] MEDS: FERROUS GLUCONATE 324 MG TAB PO SCH ×3 (08:22→18:17)
[2017-10-25] MEDS: DOCUSATE SODIUM 100 MG CAP PO SCH ×2 (08:22→20:00)
[2017-10-25] MEDS: ASPIRIN 81 MG ECTAB PO SCH (08:22)
[2017-10-25] MEDS: POTASSIUM CHLORIDE 20 MEQ TABCR PO SCH (08:23)
[2017-10-25] MEDS: FUROSEMIDE 80 MG PO SCH (08:26)
[2017-10-25] MEDS: THIAMINE HCL 50 MG TAB PO SCH (08:27)
[2017-10-25] MEDS: MONTELUKAST SOD 10 MG TAB PO SCH (08:27)
[2017-10-25] MEDS: PANTOprazole SOD 40 MG TAB PO SCH (08:27)
[2017-10-25] MEDS: TAPENTADOL ER 50 MG TABCR PO SCH ×2 (08:30→20:00)
[2017-10-25] MEDS ORDERED: PANTOprazole SOD 40 MG TAB PO SCH (09:00)
[2017-10-25] MEDS ORDERED: MULTIVITAMIN TAB PO SCH (09:00)
[2017-10-25] MEDS: RIVAROXABAN 10 MG TAB PO SCH (09:39)
--- NOTE | 2017-10-25 10:51 | Hospitalist Progress Note ---
Hospitalist Progress Note Date of Service Oct 25, 2017. Subjective Pt evaluation today including: conversation w/ patient, conversation w/ family , physical exam, chart review, lab review, review of inpatient medication list Patient seen and evaluated. No acute events overnight. Tolerating diet. Pain is controlled. No signs of ETOH withdrawal at this time. Is currently on supplemental O2. No SOB and no wheezing to suggest exacerbation. Will wean to maintain sats at 88-92%. Does utilize CPAP at night but states he will just use O2 while here. Does have some macrocytic anemia which is likely from ETOH consumption and reports largely only eating 1 meal a day. Discussed considering B12/Folate supplementation. Constitutional: No fever, No chills ENT: No nasal symptoms, No trouble swallowing Respiratory: No cough, No wheezing, No shortness of breath Cardiovascular: No chest pain Abdomen: No pain, No nausea, No vomiting, No diarrhea, No constipation Musculoskeletal: No swelling, No calf pain Neurologic: No numbness/tingling Heme: No abnormal bleeding/bruising Skin: No rash Medications Current Inpatient Medications Medications (Trade) Dose Ordered Sig/Soledad Route Start Time Stop Time Status Last Admin Dose Admin Ketorolac Tromethamine (Toradol Inj) 15 mg Q6H IV. 10/25/17 02:00 10/25/17 20:01 10/25/17 07:39 15 MG Acetaminophen (Tylenol Tab) 1,000 mg Q8H PO 10/24/17 14:00 11/23/17 09:29 10/25/17 05:56 1,000 MG Magnesium Hydroxide (Milk Of Magnesia Susp) 30 ml Q6H PRN PO 10/24/17 09:30 11/23/17 09:29 Bisacodyl (Dulcolax Supp) 10 mg DAILY PRN [place] 10/24/17 09:30 11/23/17 09:29 Senna (Senokot Tab) 17.2 mg HS PO 10/24/17 21:00 11/23/17 20:59 10/24/17 21:01 17.2 MG Docusate Sodium (coLACE CAP) 100 mg BID PO 10/24/17 21:00 11/23/17 20:59 10/25/17 08:22 100 MG Al Hydrox/Mg Hydrox/Simethicone (Maalox Max Susp) 15 ml Q4H PRN PO 10/24/17 09:30 11/23/17 09:29 Zolpidem Tartrate (Ambien Tab) 5 mg HSZ PRN PO 10/25/17 00:01 11/24/17 00:00 Ondansetron HCl (Zofran Inj) 4 mg Q6H PRN IV 10/25/17 00:01 11/24/17 00:00 Metoclopramide HCl (Reglan Inj) 10 mg Q6H PRN IV 10/25/17 00:01 11/24/17 00:00 Ferrous Gluconate (Ferrous Gluconate Tab) 324 mg TIDM PO 10/24/17 12:30 11/23/17 12:29 10/25/17 08:22 324 MG Silver Sulfadiazine (Silvadene 1% Crm 50GM Jar) 1 appln BID PRN EXT 10/24/17 09:30 11/23/17 09:29 Tamsulosin HCl (Flomax Cap) 0.4 mg QAM PRN PO 10/24/17 09:30 11/23/17 09:29 Tapentadol (Nucynta Er Tab) 50 mg BID PO 10/25/17 09:00 11/24/17 08:59 10/25/17 08:30 50 MG Hydromorphone HCl (Dilaudid Inj) 0.5 mg Q1H PRN IV 10/25/17 00:01 11/08/17 00:00 Hydromorphone HCl (Dilaudid Tab) 2 mg Q4H PRN PO 10/25/17 00:01 11/08/17 00:00 Albuterol (Ventolin Hfa Inhaler) prn Q6H PRN INH 10/24/17 09:30 11/23/17 09:29 Aspirin (Ecotrin Tab) 81 mg QAM PO 10/25/17 09:00 11/24/17 08:59 10/25/17 08:22 81 MG Atenolol (Tenormin Tab) 200 mg BID PO 10/24/17 21:00 11/23/17 20:59 10/25/17 08:28 200 MG Atorvastatin Calcium (Lipitor Tab) 80 mg HS PO 10/24/17 21:00 11/23/17 20:59 10/24/17 21:02 80 MG Digoxin (Lanoxin Tab) 0.25 mg DAILY@1600 PO 10/25/17 16:00 11/24/17 15:59 Salmeterol Xinafoate/ Fluticasone (Advair Diskus 250/50 Inh) 1 puff BID INH 10/24/17 21:00 11/23/17 20:59 10/25/17 08:21 1 PUFF Furosemide (Lasix Tab) 80 mg QAM PO 10/25/17 09:00 11/24/17 08:59 10/25/17 08:26 80 MG Ipratropium [place] (Atrovent 0.02% 0.5MG/2.5ML Neb) 0.5 mg Q6 PRN INH 10/24/17 09:30 8 09:29 Montelukast Sodium (Singulair Tab) 10 mg QAM PO 10/25/17 09:00 11/24/17 08:59 10/25/17 08:27 10 MG Multivitamins (Multivitamin Tab) 1 tab QPM PO 10/24/17 21:00 11/23/17 20:59 10/24/17 21:03 1 TAB Potassium Chloride (Klor-Con Tab) 20 meq QAM PO 10/25/17 09:00 11/24/17 08:59 10/25/17 08:23 20 MEQ Fluticasone Propionate (Flonase Nasal [place]) 2 sprays HS NA 10/24/17 21:00 11/23/17 20:59 10/24/17 21:01 2 SPRAYS Pantoprazole Sodium (Protonix Tab) 40 mg QAM PO 10/25/17 09:00 11/24/17 08:59 10/25/17 08:27 40 MG Thiamine HCl (Vitamin B-1 Tab) 50 mg QAM PO 10/25/17 09:00 11/24/17 08:59 10/25/17 08:27 50 MG Folic Acid (Folvite Tab) 1 mg QAM PO 10/25/17 09:00 11/24/17 08:59 10/25/17 08:23 1 MG Chlordiazepoxide (Librium Cap) 25 mg Q8H PRN PO 10/25/17 00:01 11/24/17 00:00 Rivaroxaban (Xarelto Tab) 10 mg DAILY PO 10/25/17 10:00 11/24/17 09:59 10/25/17 09:39 10 MG Objective Vital Signs Date Time Temp Pulse Resp B/P (MAP) Pulse Ox O2 Delivery O2 Flow Rate FiO2 10/25/17 08:24 80 114/66 (82) 10/25/17 07:50 Nasal Cannula 1.0 10/25/17 07:02 36.4 58 18 122/72 (89) 98 2.0 10/25/17 02:51 37.0 75 17 120/64 (82) 97 Nasal Cannula 2.0 10/25/17 00:00 Nasal Cannula 2.0 10/25/17 00:00 16 97 10/24/17 22:56 36.6 76 16 138/82 (100) 91 Nasal Cannula 2.0 10/24/17 22:14 15 96 10/24/17 21:20 17 97 10/24/17 20:30 18 97 10/24/17 19:25 36.8 72 18 123/78 (93) 91 Room Air 10/24/17 19:09 17 96 10/24/17 18:15 17 97 10/24/17 17:30 18 92 10/24/17 16:15 15 92 10/24/17 15:40 Nasal Cannula 2.0 10/24/17 15:15 18 97 10/24/17 14:59 36.6 71 18 134/76 (95) 97 Nasal Cannula 2.0 10/24/17 13:47 61 15 103/54 (70) 95 10/24/17 13:25 61 18 125/67 (86) 97 10/24/17 12:15 54 18 147/92 (110) 97 10/24/17 11:15 60 18 151/77 (101) 97 10/24/17 10:45 62 18 132/85 (101) 95 Physical Exam General Appearance: WD/WN, no apparent distress, + obese Eyes: sclerae normal ENT: hearing grossly normal Neck: supple, no JVD, trachea midline Respiratory/Chest: lungs clear, normal breath sounds, no respiratory distress, no accessory muscle use Cardiovascular: regular rate, rhythm Abdomen: normal bowel sounds, non tender, soft Extremities: no calf tenderness Neurologic/Psychiatric: alert, normal mood/affect, oriented x 3 Skin: normal color, warm/dry Laboratory Results Last 24 Hours Test 10/25/17 05:56 White Blood Count 6.92 K/uL Red Blood Count 3.88 M/uL Hemoglobin 13.5 g/dL Hematocrit 40.7 % Mean Corpuscular Volume 104.9 fL Mean Corpuscular Hemoglobin 34.8 pg Mean Corpuscular Hemoglobin Concent 33.2 g/dl Platelet Count 155 K/uL Mean Platelet Volume 10.1 fL Neutrophils (%) (Auto) 75.0 % Lymphocytes (%) (Auto) 14.6 % Monocytes (%) (Auto) 7.8 % Eosinophils (%) (Auto) 2.2 % Basophils (%) (Auto) 0.1 % Neutrophils # (Auto) 5.19 K/uL Lymphocytes # (Auto) 1.01 K/uL Monocytes # (Auto) 0.54 K/uL Eosinophils # (Auto) 0.15 K/uL Basophils # (Auto) 0.01 K/uL RDW Standard Deviation 51.4 fL RDW Coefficient of Variation 13.4 % Immature Granulocyte % (Auto) 0.3 % Immature Granulocyte # (Auto) 0.02 K/uL Sodium Level 138 mmol/L Potassium Level 4.4 mmol/L Chloride Level 104 mmol/L Carbon Dioxide Level 31 mmol/L Anion Gap 3.0 mmol/L Blood Urea Nitrogen 13 mg/dl Creatinine 0.75 mg/dl Est Creatinine Clear Calc Drug Dose 115.1 ml/min Estimated GFR () 107.7 Estimated GFR (Non- 92.9 BUN/Creatinine Ratio 16.7 Random Glucose 133 mg/dl Calcium Level 7.8 mg/dl Assessment and Plan 72y/oM with hx of CAD s/p RCA stent, PAF, HLD, significant alcohol abuse, emphysema/COPD, SHIRA with CPAP use, prostate cancer, arthritis, back surgery/ fusion and obesity admitted post R total hip arthroplasty. Pain well controlled on current regimen and otherwise asymptomatic. S/P R ROHAN on 10/25: - Pain management, DVT Prophylaxis, IVF, PT/OT, Surgical management per primary - DVT prophylaxis: Xarelto ETOH Abuse: - Reports drinking Seagrams 7 and 7 - has four 12 oz drinks per night - No signs of alcohol withdrawal at this time/no H/O withdrawal seizures - Librium PRN; Folic acid/Thiamine Emphysema/COPD without Exacerbation and SHIRA on CPAP: STABLE - Recommend to wean O2 for sats 88-92% - patient follows with Finn Garrison PA-C - Reports he will just use supplemental O2 at night instead of CPAP while in the hospital - Ventolin PRN; Advair BID; Singulair 10 mg daily CAD S/P [employer] Stent/Paroxysmal A Fib/HLD: STABLE - Continue ASA 81 mg daily, Atenolol 200 mg BID, Digoxin 0.25 mg daily, Lasix 80 mg daily, Lipitor 80 mg HS - Patient is normally on Xarelto at A Fib dosing - will defer to orthopedics when to advance to this full amount given recent surgery Macrocytic Anemia: - Likely due to ETOH use and limited food intake - Continue Folic acid 1 mg daily - Discussed with patient about supplementation Hospitalists will continue to follow
[2017-10-25] MEDS ORDERED: DIGOXIN 0.25 MG TAB PO SCH (16:00)
[2017-10-25] MEDS: ATORVASTATIN 40 MG TAB PO SCH (20:01)
[2017-10-25] MEDS: MULTIVITAMIN TAB PO SCH (20:01)
[2017-10-25] MEDS: SENNA 8.6 MG TAB PO SCH (20:01)
[2017-10-25] MEDS: FLUTICASONE PROPIONATE NA SPR 16 GM BTL SCH (20:02)
[2017-10-26] MEDS: ACETAMINOPHEN 500 MG TAB PO SCH (05:30)
[2017-10-26 06:37] VITALS: BP 111/64; PULSE 71; TEMP 36.5; O2SAT 91
[2017-10-26] MEDS ORDERED: ACET-24 PO (08:24)
[2017-10-26] MEDS ORDERED: DLD/2 PO (08:24)
--- NOTE | 2017-10-26 08:25 | Discharge Instructions ---
Discharge Instructions Date of Service Oct 26, 2017. Admission Reason for Admission: Right Hip Degenerative Joint Disease Discharge Discharge Diagnosis / Problem: Right Hip Replacement Discharge Goals Goal(s): Decrease discomfort, Improve function, Increase independence, Improve disease control, Therapeutic intervention Activity Recommendations Activity Limitations: per Instructions/Follow-up section Weightbearing Status: Right weightbearing . Instructions / Follow-Up Instructions / Follow-Up ACTIVITY RECOMMENDATIONS: Physical Therapy: * Aggressive physical therapy is not usually needed. You will learn to take care of yourself safely and walk. * Follow the "Hip Precautions Instructions." * In some cases, the pediatric social worker at the hospital will arrange to have a therapist come to your house for the first couple of weeks to help you learn these skills. * You need to practice on your own or with the help of a family member as needed. * When you learn these skills, most of the therapy can be done on your own. Home Exercise: * You were shown a series of exercises in the hospital. Do these exercises three to four times each day including the exercises you were shown in physical therapy. Walking: * Get up and walk several times each day. For the first four weeks, try not to stand or walk for more than one hour at a time. If you do stand or walk for more than one hour, you will not hurt anything, but your leg will likely swell. * As you feel comfortable, you may change from the walker or crutches to a cane and then to independent walking. MEDICATIONS: New Medicine: * You will likely be taking one or more of these medicines: 1. Dilaudid - Take, as directed, when you need it, every four to six hours to control your pain. 2. Aspirin - Thins your blood to lessen the chance of forming a blood clot. * The most common side effects of pain medicine and iron are nausea and constipation. If nausea or constipation is too much of a problem or if you have any questions about your new medicines or doses, call [facility] at . We will try to help you manage these issues. VERY IMPORTANT TO READ AND REVIEW" Pain: * The immediate post-operative period after hip replacement surgery is often quite painful. * You are given a prescription for pain medicine. You should take it, as directed, when you need it, especially before physical therapy and before going to bed. Pain that interferes with sleep is very common and can last several months. * You will likely need pain medicine for the first two to four weeks. It will not stop all of the pain. The pain will lessen and as you feel better, you may change to milder pain medicine such as Tylenol. * The most common side effects of pain medicine are nausea and constipation, so don't take more than you need. SPECIAL CARE INSTRUCTIONS: TEDs/Elastic Stockings: * The white elastic stockings help limit swelling and prevent blood clots from forming in your legs. The more you wear them, the more they work. * Wear them for six weeks. Prevention of Infection: * Take antibiotics one hour before any dental cleaning, dental work, urological procedure, gastrointestinal procedure or any invasive surgery in order to prevent your new joint from getting infected. * You may get the antibiotics from the doctor performing the procedure or you may call our office at before and we will call in a prescription to the pharmacy of your choice. Things to Watch For: * Drainage from the incision site that occurs more than one week after your surgery. * Severely increased leg pain or swelling. * Increased redness at the incision site. * Fever above 102 degrees Fahrenheit. * Unusual chest pain or shortness of breath. * Unusual pain or burning with urination. Call [facility] at with any of the above problems or if you have any questions about your medicines or recovery. FOLLOW UP VISIT: Make an appointment to see your doctor for approximately two weeks after surgery for a progress check and staple removal by calling the office at . Current Hospital Diet Patient's current hospital diet: Regular Diet Discharge Diet Recommended Diet: Regular Diet Procedures Procedures Performed: Right Femur Hardware Removal Right Uncemented Total Hip Arthroplasty Pending Studies Studies pending at discharge: no Laboratory Results Hemoglobin A1c Test 09/24/17 08:14 Range/Units Estimated Average Glucose 126 mg/dl Hemoglobin A1c 6.0 H 4.5-5.6 % Lipid Panel Test 09/24/17 08:14 Range/Units Triglycerides Level 111 0-150 mg/dl Cholesterol Level 146 0-200 mg/dl HDL Cholesterol 53 mg/dl Cholesterol/HDL Ratio 2.8 LDL Cholesterol, Calculated 71 mg/dl Medical Emergencies . Who to Call and When: Medical Emergencies: If at any time you feel your situation is an emergency, please call 911 immediately. . Non-Emergent Contact Non-Emergency issues call your: Surgeon . "Provider Documentation" section prepared by Colton Ty. .
[2017-10-26] MEDS: PANTOprazole SOD 40 MG TAB PO SCH (08:34)
[2017-10-26] MEDS: FLUTICASONE/SALMETEROL 250/50 (ADVAIR) 14 PUFF/1 INHALER INH SCH (08:34)
[2017-10-26] MEDS: FERROUS GLUCONATE 324 MG TAB PO SCH (08:34)
[2017-10-26] MEDS: DOCUSATE SODIUM 100 MG CAP PO SCH (08:34)
[2017-10-26] MEDS: FUROSEMIDE 80 MG PO SCH (08:35)
[2017-10-26] MEDS: POTASSIUM CHLORIDE 20 MEQ TABCR PO SCH (08:35)
[2017-10-26] MEDS: ASPIRIN 81 MG ECTAB PO SCH (08:35)
[2017-10-26] MEDS: MONTELUKAST SOD 10 MG TAB PO SCH (08:35)
[2017-10-26] MEDS: RIVAROXABAN 10 MG TAB PO SCH (08:36)
[2017-10-26] MEDS: THIAMINE HCL 50 MG TAB PO SCH (08:36)
[2017-10-26] MEDS: TAPENTADOL ER 50 MG TABCR PO SCH (08:39)
[2017-10-26 08:41] VITALS: BP 151/79; PULSE 71
--- NOTE | 2017-10-26 08:55 | PROGRESS NOTE ---
DATE: 10/26/2017 SUBJECTIVE: A 72-year-old gentleman postop day 2 from right femur hardware removal and total hip arthroplasty. He is doing well. Pain is controlled. No chest pain or shortness of breath. Not feeling dizzy or lightheaded. OBJECTIVE: VITAL SIGNS: Temperature 36.5. Vital signs stable. GENERAL: Physical examination reveals a pleasant, middle-aged male. He is sitting up in his bedside chair and looks comfortable. EXTREMITIES: Examination of the right hip reveals the dressing to be clean, dry and intact. Thigh is soft and supple. His hip is located. He is neurologically intact. ASSESSMENT: A 72-year-old gentleman postop day 2 from a right hip hardware removal and hip replacement, doing pretty well. His pain is controlled. PLAN: 1. DVT prophylaxis including thigh-high TEDs, SCDs, and back on his Xarelto. 2. PT/OT. Weight bear as tolerated. Right total hip protocol. 3. Pain control, doing well with current pain regimen. 4. Disposition: Plan to discharge to home with some home health later today if does okay in therapy.
[2017-10-26 09:45] VITALS: BP 151/79; PULSE 71; TEMP 36.5; O2SAT 91
--- NOTE | 2017-11-05 16:01 | DISCHARGE SUMMARY ---
ADMITTING PHYSICIAN AND SURGEON: Dr. Ty. ADMITTING DIAGNOSIS: Right hip degenerative joint disease status post IM nailing of a previous hip fracture. PROCEDURE PERFORMED: 1. Right femoral trochanteric nail removal. 2. Right total hip arthroplasty. SECONDARY DIAGNOSES: Coronary artery disease, emphysema, COPD, sleep apnea, extensive back surgery and history of fusion, arthritis, prostate cancer, obesity. CONSULTS: Dr. Acevedo, postoperative medical management and DT prophylaxis. HISTORY AND PHYSICAL EXAM: Well documented in the patient's chart. HOSPITAL COURSE: The patient was admitted on 10/24/2017, underwent hardware removal and total hip arthroplasty, tolerated the procedure well. There were no complications. He was transferred to the PACU postoperatively and later to the orthopedic floor for further care. He was given Ancef for antibiotic prophylaxis, JOSELIN stockings, SCDs and Xarelto for DVT prophylaxis. Hemoglobin, hematocrit and vital signs were monitored during his hospital stay and remained stable. He did not require any blood transfusions. There were no complications during his hospital stay. He did have a history of heavy alcohol intake. The hospitalist service was consulted for DT prophylaxis. He was given Librium p.r.n. and folic acid as well as thiamin. By postoperative day 2, he was tolerating a regular diet, pain was controlled with oral pain medicine. He was participating in physical therapy. On postop day 2, he was discharged to home, set up with home health services. He was given printed discharge instructions including new prescriptions for extra-strength Tylenol and hydromorphone. Continue his home medications, continue physical therapy, weightbearing as tolerated, JOSELIN stockings, total hip precautions. Follow up approximately 2 weeks postoperatively or sooner if any problems or concerns.
== END 2017-10-26 10:52 | disposition home health service (06) | DRG 470 ==
LOC: C.ACU 05:03 → C.3E 06:35 → ENRESERV 09:45
PROVIDERS: ADMIT Orthopaedic Surgery Sports Medicine; ATTEND Orthopaedic Surgery Sports Medicine
PROC: 0SR904A Replacement of Right Hip Joint with Ceramic on Polyethylene Synthetic Substitute, Uncemented, Open Approach (ICD-10-PCS; principal; 2017-10-24 07:15)
PROC: 0QP604Z Removal of Internal Fixation Device from Right Upper Femur, Open Approach (ICD-10-PCS; principal; 2017-10-24 07:15)
DX: M16.11 Unilateral primary osteoarthritis, right hip (principal); Z68.41 Body mass index [BMI] 40.0-44.9, adult; F10.10 Alcohol abuse, uncomplicated; Z96.642 Presence of left artificial hip joint; I25.10 Atherosclerotic heart disease of native coronary artery without angina pectoris; Z95.5 Presence of coronary angioplasty implant and graft; Z98.1 Arthrodesis status; E66.9 Obesity, unspecified; Z96.611 Presence of right artificial shoulder joint; I48.0 Paroxysmal atrial fibrillation; J43.9 Emphysema, unspecified; E78.5 Hyperlipidemia, unspecified; G47.33 Obstructive sleep apnea (adult) (pediatric); Z85.45 Personal history of malignant neoplasm of unspecified male genital organ; Z87.891 Personal history of nicotine dependence

== ENCOUNTER 2019-10-13 11:32 | Inpatient (IN) ==
[2019-10-13] MEDS ORDERED: ASPIRIN CHEW 324 MG PO STA (12:14)
[2019-10-13] MEDS ORDERED: ALBUTEROL HFA 8 GM INHALER INH ONE (12:15)
[2019-10-13] MEDS ORDERED: predniSONE 50 MG TAB PO STA (12:16)
--- NOTE | 2019-10-13 12:20 | Emergency Department Note ---
History of Present Illness General Chief complaint: Shortness of Breath/Dyspnea Stated complaint: SOB Time Seen by Provider: 10/13/19 12:05 History of Present Illness Provider complaint: Shortness of breath Onset (ago): day(s) 3 Location: chest Maximum Pain Intensity: 0 Current Pain Intensity: 0 Relieved By: + rest Exacerbated By: + movement Associated symptoms: + shortness of breath; no chest pain, no fever/chills and no nausea/vomiting 74-year-old male presents emergency department with shortness of breath. Patient reports for the last 3 days he has had worsening shortness of breath with exertion. He denies any cough. No fevers, no loss of taste or smell, no cough. He denies any hemoptysis. No nausea vomiting or diarrhea. No hematuria dysuria. Patient states he wears 3 L of home oxygen all the time but with his increasing shortness of breath has had to wear 4 L lately. Home Medications Home Medications Medication Instructions Recorded Confirmed Type Calcium 600 + D(3) 1 cap PO BID 08/21/18 10/13/19 History albuterol sulfate 1 puff INHALATION Q6H PRN 08/21/18 10/13/19 History [id number] 1 cap PO QAM 08/21/18 10/13/19 History [MegaRed Ariel-3 Krill Oil] mometasone [Nasonex] 2 spray INTRANASAL HS 08/21/18 10/13/19 History multivitamin 1 tab PO QAM 08/21/18 10/13/19 History omeprazole 40 mg PO BID 08/21/18 10/13/19 History triamcinolone acetonide 1 applic TOPICAL DAILY PRN 08/21/18 10/13/19 History ipratropium 0.5 mg-albuterol 3 mg 3 ml INHALATION Q6H PRN ml 11/04/18 10/13/19 History (2.5 mg base)/3 mL nebulization soln cyanocobalamin (vitamin B-12) 1,000 mcg PO QAM 11/05/18 10/13/19 History [Vitamin B-12] furosemide 40 mg tablet 80 mg PO QAM #90 tab 03/20/19 10/13/19 Rx atenolol 100 mg tablet 200 mg PO BID 05/19/19 10/13/19 History digoxin 125 mcg (0.125 mg) tablet 125 mcg PO QAM #90 tab 07/27/19 10/13/19 Rx rivaroxaban 20 mg tablet 20 mg PO QAM #90 tab 07/27/19 10/13/19 Rx atorvastatin 80 mg tablet 80 mg PO HS #90 tab 09/11/19 10/13/19 Rx Advair Diskus 250 mcg-50 mcg/dose 1 inh INHALATION BID #1 inhaler NS 09/16/19 10/13/19 Rx powder for inhalation montelukast 10 mg PO DAILY 09/24/19 10/13/19 History potassium chloride 10 mEq 20 meq PO BID #360 tab 10/01/19 10/13/19 Rx tablet,extended release Allergies Allergy/AdvReac Type Severity Reaction Status Date / Time adhesive Allergy Mild TAPE-RASH Verified 10/13/19 12:33 oxycodone Allergy Mild RASH Verified 10/13/19 12:33 diltiazem Allergy Unknown Verified 10/13/19 12:33 Past Med/Surg History Medical History (Updated 10/13/19 @ 19:53 by Anand Higgins) Anemia Atrial fibrillation dx 4-5 years ago --reason for xarelto--follows with Dr. Luna Walker esophagus Chronic obstructive pulmonary disease Denies any h/o hospitalization or intubation. Used advair this am. Has not used albuterol for a few months. Chronic respiratory failure with hypoxia and hypercapnia Difficulty swallowing GERD (gastroesophageal reflux disease) History of heart artery stent x1 2008 @ [facility] by Dr. Luna History of prostate cancer Hyperlipidemia Hypertension Morbid obesity with BMI of 45.0-49.9, adult On anticoagulant therapy On home oxygen therapy 2-3L N/C at all times Sleep apnea CPAP with 2-3L Surgical History History of bilateral cataract extraction History of cardiac cath 2008 @ [facility] - HAD STENT X1 History of colonoscopy History of esophagogastroduodenoscopy (EGD) EUS 03/2019 [facility] EUS 11/21/18 Glidescope 4 with grade 1 view History of lumbar surgery hardware in place History of prostate biopsy malignant History of prostatectomy History of right shoulder replacement History of total left hip replacement History of total right hip replacement History of umbilical hernia repair Hx of esophagogastroduodenoscopy Hx of nasal septoplasty Family History Uncle Prostate cancer Mother Septicemia Father COPD (chronic obstructive pulmonary disease) Pancreatic cancer Other No family history of adverse response to anesthesia Social History (Updated 10/13/19 @ 17:16 by Avila Abraham) Preferred Language: Portuguese Communication Ability: Effective Hearing Ability: Use of Hearing Aid 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: No Beliefs That Will Affect Care: Hindu, Spiritual and Cultural marital status: Current Living Situation: Spouse Current Living Situation Comment: has step-children 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 Other Information That Helps Us Care for You: No Feels Safe at Home: Yes Safety Concerns: Feels Safe At This Time Smoking Status: Former smoker Tobacco Type: cigarettes ; Age Started Using Tobacco: 17 ; Age Quit Using Tobacco: 54 ; packs per day: 1 ; Do You Dip or Chew Tobacco: No ; Second Hand Exposure: No ; Tobacco Cessation Education Requested by Patient: No Hx Alcohol Use: Yes Alcohol type: hard liquor Alcohol Intake Frequency: Daily Alcohol Intake Frequency Comment: 2-3 daily Hx Substance Use: No Seatbelt Use: always Sunscreen Use: No Review of Systems A total of 10 systems reviewed and were otherwise negative Physical Exam Vital Signs Vital Signs - 24 hr 10/13/19 11:41 10/13/19 11:56 10/13/19 12:00 Temperature 36.4 C L Temperature Source Oral Pulse Rate 80 69 76 Pulse Rate [Right Finger] Pulse Rate from SpO2 Sensor Respiratory Rate 20 17 24 Respiratory Effort / Characteristics Respiratory Depth Respiratory Pattern Blood Pressure 128/55 L Blood Pressure Mean 79 Pulse Oximetry 93 Oxygen Delivery Method Nasal Cannula Oxygen Flow Rate 4 Fraction of Inspired Oxygen Sepsis Recent Fever Within 48 Hours No Sepsis New/Unexplained Change in Mental Status No 10/13/19 12:10 10/13/19 12:14 10/13/19 12:17 Temperature Temperature Source Pulse Rate 76 Pulse Rate [Right Finger] Pulse Rate from SpO2 Sensor 78 Respiratory Rate 15 Respiratory Effort / Characteristics Spontaneous Labored Respiratory Depth Shallow Respiratory Pattern Tachypnea Blood Pressure Blood Pressure Mean Pulse Oximetry 99 96 96 Oxygen Delivery Method Nasal Cannula Nasal Cannula Oxygen Flow Rate 4 4 Fraction of Inspired Oxygen Sepsis Recent Fever Within 48 Hours Sepsis New/Unexplained Change in Mental Status 10/13/19 12:20 10/13/19 12:30 10/13/19 12:40 Temperature Temperature Source Pulse Rate 76 83 79 Pulse Rate [Right Finger] Pulse Rate from SpO2 Sensor 76 80 79 Respiratory Rate 27 H 13 22 Respiratory Effort / Characteristics Respiratory Depth Respiratory Pattern Blood Pressure Blood Pressure Mean Pulse Oximetry 100 99 100 Oxygen Delivery Method Oxygen Flow Rate Fraction of Inspired Oxygen Sepsis Recent Fever Within 48 Hours Sepsis New/Unexplained Change in Mental Status 10/13/19 12:50 10/13/19 13:00 10/13/19 13:03 Temperature Temperature Source Pulse Rate 76 77 74 Pulse Rate [Right Finger] Pulse Rate from SpO2 Sensor 80 78 75 Respiratory Rate 24 29 H 25 H Respiratory Effort / Characteristics Respiratory Depth Respiratory Pattern Blood Pressure 140/90 Blood Pressure Mean 95 Pulse Oximetry 100 100 100 Oxygen Delivery Method Oxygen Flow Rate Fraction of Inspired Oxygen Sepsis Recent Fever Within 48 Hours Sepsis New/Unexplained Change in Mental Status 10/13/19 13:04 10/13/19 13:10 10/13/19 13:20 Temperature Temperature Source Pulse Rate 71 76 80 Pulse Rate [Right Finger] Pulse Rate from SpO2 Sensor 77 81 80 Respiratory Rate 26 H 29 H 19 Respiratory Effort / Characteristics Respiratory Depth Respiratory Pattern Blood Pressure Blood Pressure Mean Pulse Oximetry 100 100 100 Oxygen Delivery Method Oxygen Flow Rate Fraction of Inspired Oxygen Sepsis Recent Fever Within 48 Hours Sepsis New/Unexplained Change in Mental Status 10/13/19 13:48 10/13/19 13:49 10/13/19 13:50 Temperature Temperature Source Pulse Rate 76 Pulse Rate [Right Finger] 76 Pulse Rate from SpO2 Sensor 74 76 Respiratory Rate 25 H Respiratory Effort / Characteristics Spontaneous Respiratory Depth Respiratory Pattern Tachypnea Blood Pressure Blood Pressure Mean Pulse Oximetry 97 97 97 Oxygen Delivery Method BiPAP Oxygen Flow Rate Fraction of Inspired Oxygen 30 Sepsis Recent Fever Within 48 Hours Sepsis New/Unexplained Change in Mental Status 10/13/19 14:00 10/13/19 14:10 10/13/19 14:11 Temperature Temperature Source Pulse Rate 68 74 Pulse Rate [Right Finger] Pulse Rate from SpO2 Sensor 77 74 78 Respiratory Rate 16 19 Respiratory Effort / Characteristics Respiratory Depth Respiratory Pattern Blood Pressure 128/60 Blood Pressure Mean 83 Pulse Oximetry 95 93 94 Oxygen Delivery Method Oxygen Flow Rate Fraction of Inspired Oxygen Sepsis Recent Fever Within 48 Hours Sepsis New/Unexplained Change in Mental Status 10/13/19 14:12 10/13/19 14:20 10/13/19 14:30 Temperature Temperature Source Pulse Rate 71 74 76 Pulse Rate [Right Finger] Pulse Rate from SpO2 Sensor 72 72 76 Respiratory Rate 16 18 27 H Respiratory Effort / Characteristics Respiratory Depth Respiratory Pattern Blood Pressure Blood Pressure Mean Pulse Oximetry 94 94 91 Oxygen Delivery Method Oxygen Flow Rate Fraction of Inspired Oxygen Sepsis Recent Fever Within 48 Hours Sepsis New/Unexplained Change in Mental Status 10/13/19 14:40 10/13/19 14:50 10/13/19 15:00 Temperature Temperature Source Pulse Rate 72 67 73 Pulse Rate [Right Finger] Pulse Rate from SpO2 Sensor Respiratory Rate 23 12 24 Respiratory Effort / Characteristics Respiratory Depth Respiratory Pattern Blood Pressure Blood Pressure Mean Pulse Oximetry Oxygen Delivery Method Oxygen Flow Rate Fraction of Inspired Oxygen Sepsis Recent Fever Within 48 Hours Sepsis New/Unexplained Change in Mental Status 10/13/19 15:01 10/13/19 15:10 10/13/19 15:20 Temperature Temperature Source Pulse Rate 68 72 74 Pulse Rate [Right Finger] Pulse Rate from SpO2 Sensor Respiratory Rate 25 H 24 25 H Respiratory Effort / Characteristics Respiratory Depth Respiratory Pattern Blood Pressure 158/50 H Blood Pressure Mean 95 Pulse Oximetry Oxygen Delivery Method Oxygen Flow Rate Fraction of Inspired Oxygen Sepsis Recent Fever Within 48 Hours Sepsis New/Unexplained Change in Mental Status 10/13/19 15:30 10/13/19 15:40 10/13/19 15:50 Temperature Temperature Source Pulse Rate 71 70 74 Pulse Rate [Right Finger] Pulse Rate from SpO2 Sensor Respiratory Rate 26 H 20 17 Respiratory Effort / Characteristics Respiratory Depth Respiratory Pattern Blood Pressure Blood Pressure Mean Pulse Oximetry Oxygen Delivery Method Oxygen Flow Rate Fraction of Inspired Oxygen Sepsis Recent Fever Within 48 Hours Sepsis New/Unexplained Change in Mental Status 10/13/19 16:00 10/13/19 16:10 10/13/19 16:20 Temperature Temperature Source Pulse Rate 73 75 71 Pulse Rate [Right Finger] Pulse Rate from SpO2 Sensor 72 Respiratory Rate 22 24 22 Respiratory Effort / Characteristics Respiratory Depth Respiratory Pattern Blood Pressure Blood Pressure Mean Pulse Oximetry 94 Oxygen Delivery Method Oxygen Flow Rate Fraction of Inspired Oxygen Sepsis Recent Fever Within 48 Hours Sepsis New/Unexplained Change in Mental Status 10/13/19 16:30 10/13/19 16:31 Temperature Temperature Source Pulse Rate 75 74 Pulse Rate [Right Finger] Pulse Rate from SpO2 Sensor 79 71 Respiratory Rate 15 19 Respiratory Effort / Characteristics Respiratory Depth Respiratory Pattern Blood Pressure 146/80 H Blood Pressure Mean 111 Pulse Oximetry 97 95 Oxygen Delivery Method Oxygen Flow Rate Fraction of Inspired Oxygen Sepsis Recent Fever Within 48 Hours Sepsis New/Unexplained Change in Mental Status Physical Exam GENERAL: He is oriented to person, place, and time. He appears well-developed and well-nourished. He does not appear distressed. HENT: Exam performed. - Head: Normocephalic and atraumatic. - Right Ear: External ear normal. No mastoid tenderness. - Left Ear: External ear normal. No mastoid tenderness. - Mouth/Throat: The oropharynx is clear and moist. No trismus in the jaw. No dental abscesses or uvula swelling. No oropharyngeal exudate or tonsillar abscesses. EYES: Conjunctivae and EOM are normal. Pupils are equal, round, and reactive to light. Right eye exhibits no discharge. Left eye exhibits no discharge. No scleral icterus. NECK: Normal range of motion. Neck supple. No JVD present. No spinous process tenderness present. No carotid bruit present. No rigidity. No tracheal deviation and normal range of motion present. No Brudzinski's sign and no Kernig's sign noted. CV: Normal rate, irregular rhythm, normal heart sounds and intact distal pulses. There is no peripheral edema. Palpable radial pulses bue. PULM/CHEST: Diffuse expiratory wheezes bilaterally. - Chest Wall: He exhibits no tenderness. ABD: The abdomen is soft obese. No pain on palpation of the abdomen. MUSC/SKEL: Normal range of motion. There is no peripheral edema, tenderness or deformity. No COVID toes. LYMPH: No cervical adenopathy. NEURO: He is alert and oriented to person, place, and time. He has normal strength. No cranial nerve deficit or sensory deficit. Coordination and gait normal. GCS eye subscore is 4. GCS verbal subscore is 5. GCS motor subscore is 6. Cerebellar tests wnl. SKIN: Skin is warm and dry. He is not diaphoretic. PSYCH: He has a normal mood and affect. Behavior is normal. Judgment and thought content normal. Course Course 1205: The patient was evaluated in room C1. A complete history and physical exam was performed. Cardiac monitoring: An order was placed for continuous cardiac monitoring. The monitor shows a rate of 80 with atrial fibrillation rhythm EMR reviewed. Patient has a history of Walker's esophagus, anemia, pulmonary A V fistula, atrial fibrillation, COPD, coronary artery disease, lymphedema, is on Xarelto and digoxin. Patient had negative COVID-19 swab on September 30, 2019. 1350: Vital signs stable. Potassium is elevated 5.9. Patient will be treated with calcium gluconate 1 g as well as 10 units of insulin along with 1 amp of D50. Patient's VBG shows a PCO2 of 90 and a venous pH of 7.23. proBNP elevated at 1176. Patient continues to have wheezing. Chest x-ray viewed by me showed cardiomegaly with cephalization. Given his VBG findings, continued wheezing despite albuterol treatment, and chest x-ray findings, the patient be started on BiPAP and attempt to improve his blood gas as well as work of breathing for CHF/COPD exacerbation. Patient will be given additional DuoNeb treatment. We will repeat the VBG after the patient has been on BiPAP to see if there is any significant improvement. 1500: Blood gas shows some improvement with BiPAP, venous pH repeat 7.25 and PCO2 has gone down to 84. Patient is alert and oriented, he is complaining about waiting so long in the emergency department and wants his bed ready upstairs and is asking for food. Administered Medications Discontinued Medications Albuterol (Ventolin Hfa) 4 puffs INH NOW ONE Stop: 10/13/19 12:16 Last Admin: 10/13/19 12:26 Dose: 4 puffs Documented by: [id number] Albuterol (Duoneb) 3 ml NEB NOW STA Stop: 10/13/19 13:26 Last Admin: 10/13/19 13:49 Dose: 3 ml Documented by: [id number] Aspirin (Aspirin) 324 mg PO NOW STA Stop: 10/13/19 12:15 Last Admin: 10/13/19 12:27 Dose: 324 mg Documented by: [id number] Dextrose (Dextrose 50%) 50 ml IV NOW STA Stop: 10/13/19 13:29 Last Admin: 10/13/19 14:08 Dose: 50 ml Documented by: [id number] Furosemide (Lasix) 40 mg IV NOW STA Stop: 10/13/19 15:06 Last Admin: 10/13/19 16:11 Dose: 40 mg Documented by: [id number] Calcium Gluconate 1,000 mg/ (Sodium Chloride) 60 mls @ 240 mls/hr IV NOW STA Stop: 10/13/19 13:42 Last Infusion: 10/13/19 14:33 Dose: 0 mls/hr Documented by: [id number] Admin: 10/13/19 14:08 Dose: 240 mls/hr Documented by: [id number] Insulin Human Regular 10 units (/ Syringe) 9.9 mls @ 3 mls/sec IV ONE STA Stop: 10/13/19 13:29 Last Admin: 10/13/19 14:08 Dose: 3 mls/sec Documented by: [id number] Cosigned by: [id number] Methylprednisolone (Solumedrol) 60 mg IV NOW STA Stop: 10/13/19 16:27 Last Admin: 10/13/19 18:48 Dose: Not Given Documented by: [id number] Methylprednisolone (Solumedrol) Confirm Administered Dose 125 mg .ROUTE .STK-MED ONE Stop: 10/13/19 16:49 Last Admin: 10/13/19 16:52 Dose: 60 mg Documented by: [id number] Prednisone (Prednisone) 50 mg PO NOW STA Stop: 10/13/19 12:17 Last Admin: 10/13/19 12:27 Dose: 50 mg Documented by: [id number] Critical Care Time Critical Care Time: Yes Total Critical Care Time: 51 I have personally spent greater than 51 minutes of critical care time in the direct management of this patient. This includes bedside care, interpretation of diagnostic studies, and testing, discussion with consultants, patient, and family members, and other required patient management activities. This 51 minutes is in excess of all separately billable procedures. Medical Decision Making Laboratory Data Result diagrams: 10/13/19 12:25 10/13/19 16:43 Lab Results 10/13/19 10/13/19 10/13/19 Range/Units 12:25 12:25 12:25 WBC 9.17 (4.8-10.8) K/uL RBC 3.27 L (4.7-6.1) M/uL Hgb 8.2 L (14.0-18.0) g/dL Hct 29.7 L (42-52) % MCV 90.8 (80-100) fL MCH 25.1 (25-34) pg MCHC 27.6 L (32-36) g/dL RDW Std Deviation 57.3 H (36.4-46.3) fL RDW Coeff of Ezekiel 17.2 H (11.5-14.5) % Plt Count 266 (130-400) K/uL MPV 11.1 H (7.4-10.4) fL Immature Gran % (Auto) 0.4 % Neut % (Auto) 72.4 % Lymph % (Auto) 11.9 % Fleming % (Auto) 13.4 % Eos % (Auto) 1.6 % Baso % (Auto) 0.3 % Neut # (Auto) 6.63 H (1.4-6.5) K/uL Lymph # (Auto) 1.09 L (1.2-3.4) K/uL Fleming # (Auto) 1.23 H (0.11-0.59) K/uL Eos # (Auto) 0.15 (0-0.5) K/uL Baso # (Auto) 0.03 (0-0.2) K/uL Immature Gran # (Auto) 0.04 H (0.00-0.02) K/uL Absolute Nucleated RBC 0.04 H (0-0) K/uL Nucleated RBC % (auto) 0.4 % Hypochromasia Present Stomatocytes 2+ PT 18.1 H (9.0-12.0) Seconds INR 1.8 H (0.9-1.1) APTT 30.4 (21.0-31.0) Seconds PTT Ratio 1.1 VBG pH (7.36-7.41) VBG pCO2 (38-50) mmHg VBG pO2 mmHg VBG HCO3 mmol/L VBG O2 Saturation % VBG Base Excess mEq/L Barometric Pressure mm/Hg Sodium 144 (136-145) mmol/L Potassium 5.9 H (3.5-5.1) mmol/L Chloride 108 H (98-107) mmol/L Carbon Dioxide 36 H (21-32) mmol/L Anion Gap 0 L (3-11) BUN 27 H (7-18) mg/dl Creatinine 1.15 (0.6-1.4) mg/dl Est Cr Clr Drug Dosing 76.4 ml/min Est GFR ( Amer) 73.3 Est GFR (Non-Af Amer) 63.2 BUN/Creatinine Ratio 23.2 H (10-20) Glucose 113 H (70-99) mg/dl Calcium 8.3 L (8.5-10.1) mg/dl Troponin I < 0.015 (0-0.045) ng/ml NT-Pro-B Natriuret Pep 1176 H (0-900) pg/ml Lipase 324 (73-393) U/L Digoxin (0.8-2.0) ng/ml 10/13/19 10/13/19 10/13/19 Range/Units 12:25 12:27 14:37 WBC (4.8-10.8) K/uL RBC (4.7-6.1) M/uL Hgb (14.0-18.0) g/dL Hct (42-52) % MCV (80-100) fL MCH (25-34) pg MCHC (32-36) g/dL RDW Std Deviation (36.4-46.3) fL RDW Coeff of Ezekiel (11.5-14.5) % Plt Count (130-400) K/uL MPV (7.4-10.4) fL Immature Gran % (Auto) % Neut % (Auto) % Lymph % (Auto) % Fleming % (Auto) % Eos % (Auto) % Baso % (Auto) % Neut # (Auto) (1.4-6.5) K/uL Lymph # (Auto) (1.2-3.4) K/uL Fleming # (Auto) (0.11-0.59) K/uL Eos # (Auto) (0-0.5) K/uL Baso # (Auto) (0-0.2) K/uL Immature Gran # (Auto) (0.00-0.02) K/uL Absolute Nucleated RBC (0-0) K/uL Nucleated RBC % (auto) % Hypochromasia Stomatocytes PT (9.0-12.0) Seconds INR (0.9-1.1) APTT (21.0-31.0) Seconds PTT Ratio VBG pH 7.23 L 7.25 L (7.36-7.41) VBG pCO2 90 H 84 H (38-50) mmHg VBG pO2 27 25 mmHg VBG HCO3 37 36 mmol/L VBG O2 Saturation < 60.0 < 60.0 % VBG Base Excess 7.7 7.3 mEq/L Barometric Pressure 733.4 732.7 mm/Hg Sodium (136-145) mmol/L Potassium (3.5-5.1) mmol/L Chloride (98-107) mmol/L Carbon Dioxide (21-32) mmol/L Anion Gap (3-11) BUN (7-18) mg/dl Creatinine (0.6-1.4) mg/dl Est Cr Clr Drug Dosing ml/min Est GFR ( Amer) Est GFR (Non-Af Amer) BUN/Creatinine Ratio (10-20) Glucose (70-99) mg/dl Calcium (8.5-10.1) mg/dl Troponin I (0-0.045) ng/ml NT-Pro-B Natriuret Pep (0-900) pg/ml Lipase (73-393) U/L Digoxin 1.4 (0.8-2.0) ng/ml Imaging Data Radiologist's Impression: XR chest 2V PA/lateral CLINICAL HISTORY: Chest Pain COMPARISON STUDY: 10/05/2019 FINDINGS: Limited study technically due to body habitus configuration/limitation. Persistent cardiomegaly. Prominent pulmonary vascul ature. Small bilateral pleural effusions. IMPRESSION: Congestive heart failure ACT 112: Negative or not required by law. The above report was generated using voice recognition software. It may contain grammatical, syntax or spelling errors. Electronically signed by: Shane Pastor M.D. 10/13/2019 1:49 PM Dictated: 10/13/19 1348 Transcribed: 10/13/19 1348 ECG Data Indication: + SOB/dyspnea Rate (beats per minute): 71 Rhythm: + atrial fibrillation ECG Intervals/blocks: + Normal QRS and + Normal QT-c ECG ST segments: + Normal ST segments [facility] Narrative 1205: The patient was evaluated in room C1. A complete history and physical exam was performed. Cardiac monitoring: An order was placed for continuous cardiac monitoring. The monitor shows a rate of 80 with atrial fibrillation rhythm EMR reviewed. Patient has a history of Walker's esophagus, anemia, pulmonary AV fistula, atrial fibrillation, COPD, coronary artery disease, lymphedema, is on Xarelto and digoxin. Patient had negative COVID-19 swab on September 30, 2019. 1350: Vital signs stable. Potassium is elevated 5.9. Patient will be treated with calcium gluconate 1 g as well as 10 units of insulin along with 1 amp of D50. Patient's VBG shows a PCO2 of 90 and a venous pH of 7.23. proBNP elevated at 1176. Patient continues to have wheezing. Chest x-ray viewed by me showed cardiomegaly with cephalization. Given his VBG findings, continued wheezing despite albuterol treatment, and chest x-ray findings, the patient be started on BiPAP and attempt to improve his blood gas as well as work of breathing for CHF/COPD exacerbation. Patient will be given additional DuoNeb treatment. We will repeat the VBG after the patient has been on BiPAP to see if there is any significant improvement. 1500: Blood gas shows some improvement with BiPAP, venous pH repeat 7.25 and PCO2 has gone down to 84. Patient is alert and oriented, he is complaining about waiting so long in the emergency department and wants his bed ready upstairs and is asking for food. Impression & Plan Acute exacerbation of CHF (congestive heart failure), COPD exacerbation, Acute hyperkalemia Discharge Plan Visit Data *Final* Discharge Date/Time: 10/13/19 17:31 Chief Complaint: Shortness of Breath/Dyspnea Stated Complaint: SOB ED Provider: Anand Higgins Discharge Problem: Acute exacerbation of CHF (congestive heart failure), COPD exacerbation, Acute hyperkalemia Patient Disposition: Admitted As Inpatient Discharge Instructions Interventions: ED Discharge Assessment Last Done: 10/13/19 17:31 Discharge Problem: Acute exacerbation of CHF (congestive heart failure) Qualifiers: Heart failure type: unspecified Qualified Code(s): I50.9 - Heart failure, un specified
[2019-10-13 12:43] LABS: Base Excess VBG 7.7 mEq/L; HCO3 VBG 37 mmol/L; PCO2 VBG 90 mmHg (38-50); PO2 VBG 27 mmHg; pH VBG 7.23 (7.36-7.41)
[2019-10-13 12:44] LABS: Oxygen Saturation VBG < 60.0 %
[2019-10-13 12:48] LABS: INR 1.8 (0.9-1.1); Partial Thromboplastin Ratio 1.1; Partial Thromboplastin Time 30.4 Seconds (21.0-31.0); Prothrombin Time 18.1 Seconds (9.0-12.0)
[2019-10-13 12:52] LABS: Anion Gap 0 (3-11); BUN Creatinine Ratio 23.2 (10-20); Blood Urea Nitrogen 27 mg/dl (7-18); Calcium 8.3 mg/dl (8.5-10.1); Carbon Dioxide 36 mmol/L (21-32); Chloride 108 mmol/L (98-107); Creatinine Clr Calc Pharmacy 76.4 ml/min; Est GFR (African American) 73.3; Est GFR (Non-African American) 63.2; Glucose 113 mg/dl (70-99); Lipase 324 U/L (73-393); Potassium 5.9 mmol/L (3.5-5.1); Sodium 144 mmol/L (136-145)
[2019-10-13 12:57] LABS: NT Pro B Type Natriuretic Pept 1176 pg/ml (0-900); Troponin I < 0.015 ng/ml (0-0.045)
[2019-10-13 13:03] LABS: Hematocrit (blood only) 29.7 % (42-52); Hemoglobin 8.2 g/dL (14.0-18.0); Mean Corpuscular Hemoglobin 25.1 pg (25-34); Mean Corpuscular Hgb Conc 27.6 g/dL (32-36); Mean Corpuscular Volume 90.8 fL (80-100); Mean Platelet Volume 11.1 fL (7.4-10.4); Nucleated RBC # (auto) 0.04 K/uL (0-0); Nucleated RBC % (auto) 0.4 %; Platelet Count 266 K/uL (130-400); RDW Coefficient of Variation 17.2 % (11.5-14.5); RDW Standard Deviation 57.3 fL (36.4-46.3); Red Blood Count 3.27 M/uL (4.7-6.1); White Blood Count 9.17 K/uL (4.8-10.8)
[2019-10-13 13:05] LABS: Basophils # (auto) 0.03 K/uL (0-0.2); Basophils % (auto) 0.3 %; Eosinophils # (auto) 0.15 K/uL (0-0.5); Eosinophils % (auto) 1.6 %; Hypochromasia Present; Immature Granulocytes # (auto) 0.04 K/uL (0.00-0.02); Immature Granulocytes % (auto) 0.4 %; Lymphocytes # (auto) 1.09 K/uL (1.2-3.4); Lymphocytes % (auto) 11.9 %; Monocytes # (auto) 1.23 K/uL (0.11-0.59); Monocytes % (auto) 13.4 %; Neutrophils # (auto) 6.63 K/uL (1.4-6.5); Neutrophils % (auto) 72.4 %; Stomatocytes 2+
[2019-10-13] MEDS ORDERED: ALBUT/IPRATROP 3MG/0.5MG NEB 3 ML VIAL NEB STA (13:25)
[2019-10-13] MEDS ORDERED: CALCIUM GLUCONATE 10% 1,000 MG in SODIUM CHLORIDE 0.9% 50 ML IV STA (13:28)
[2019-10-13] MEDS ORDERED: DEXTROSE 50% 50 ML SYRINGE IV STA (13:28)
[2019-10-13] MEDS ORDERED: INSULIN HUMAN REGULAR PER UNIT 10 UNITS in SYRINGE 9.9 ML IV STA (13:28)
--- NOTE | 2019-10-13 13:50 | XRay Report ---
XR chest 2V PA/lateral CLINICAL HISTORY: Chest Pain COMPARISON STUDY: 10/05/2019 FINDINGS: Limited study technically due to body habitus configuration/limitation. Persistent cardiome iman. Prominent pulmonary vasculature. Small bilateral pleural effusions. IMPRESSION: Congestive heart failure ACT 112: Negative or not required by law. The above report was generated using voice recognition software. It may contain grammatical, syntax or spelling errors. Electronically signed by: Shane Pastor M.D. 10/13/2019 1:49 PM
[2019-10-13 14:49] LABS: Base Excess VBG 7.3 mEq/L; HCO3 VBG 36 mmol/L; PCO2 VBG 84 mmHg (38-50); PO2 VBG 25 mmHg; pH VBG 7.25 (7.36-7.41)
[2019-10-13] MEDS ORDERED: FUROSEMIDE 40 MG/4 ML VIAL IV STA (15:05)
[2019-10-13 15:09] LABS: Oxygen Saturation VBG < 60.0 %
--- NOTE | 2019-10-13 15:38 | Electrocardiogram Report ---
Test Reason : Blood Pressure : / mmHG Vent. Rate : 071 BPM Atrial Rate : 102 BPM P-R Int : 000 ms QRS Dur : 088 ms QT Int : 336 ms P-R-T Axes : 000 117 047 degrees QTc Int : 365 ms Atrial fibrillation Low voltage QRS Left posterior fascicular block Abnormal ECG When compared with ECG of 24-SEP-2017 08:17, Left posterior fascicular block is now Present Confirmed by Miguelangel Bauer ([id number]) on 10/13/2019 3:38:20 PM Referred By: Confirmed By:rBuce Bauer
--- NOTE | 2019-10-13 15:53 | History & Physical Report ---
Date of Service October 13, 2019 Assessment & Plan (1) Acute on chronic respiratory failure with hypoxia and hypercapnia: Patient with chronic respiratory failure at baseline - likely combination of COPD, SHIRA, etc. Now with acute on chronic respiratory failure - acute component most likely COPD exacerbation. He had no response to IV lasix in the ER (i.e. no UOP). He has not had any increase in weight, peripheral edema, etc. Plan - * repeat VBG now to ensure hypercarbia is improving and that current BiPAP settings are appropriate * continue BiPAP * solumedrol 60mg IV q6h * duonebs q4h * continue advair * pulmonary toilet * no cough, sputum production, or infectious symptoms; defer on antibiotics for now * hold off on additional diuretic at this time (2) COPD (chronic obstructive pulmonary disease): With exacerbation. Severe COPD at baseline. Patient reports symptoms worsened recently in the heat outside. Environmental/allergic trigger? other? Again no infectious symptoms. IV steroids as above. Duonebs q4h. Defer on antibiotics for now. Pulmonary toilet. No COVID-19 risk factors (no travel, sick contacts, etc). Defer on COVID testing at this time. (also had negative COVID-19 test earlier this month). (3) Hyperkalemia: Mild volume depletion/prerenal state in the setting of chronic potassium supplementation? Repeat BMP now. If K still high then kayexalate x 1. BMP again in am (sooner if needed). Hold additional lasix given he may be modestly volume depleted. (4) Coagulopathy: INR 1.8 today. Is on xarelto and novel agents can make INR modestly elevated but typically not 1.8. Check LFTs to ensure no liver dysfunction. Repeat INR am. Platelets noted to be normal. (5) Anemia: Check iron studies, B12, and folate level. Patient reporting melena stools. Has prior h/o iron deficiency. Check fecal occult blood test. CBC in am. Cont PPI bid. Just had EGD a few weeks ago and, although Walker's was present, he had no source of bleeding. 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 (7) CAD (coronary artery disease): No ischemic symptoms. Stable EKG. Troponin negative. Continue atenolol, statin. Uncertain why not on aspirin. (8) Hypertension: Continue all home medications except lasix for now. (9) Permanent atrial fibrillation: Rates controlled. Continue atenolol. Continue xarelto. (10) Sleep apnea, unspecified: Continue CPAP or BiPAP (BiPAP for now due to hypercarbia). (11) Morbid obesity with BMI of 45.0-49.9, adult: BMI 48.7 (12) Iron deficiency: History of such. Significant anemia found on CBC. Patient reporting melena stools. Check iron studies. Check fecal occult blood test. CBC in am. (13) DVT prophylaxis: xarelto updated at bedside History of Present Illness Chief Complaint: shortness of breath Primary Care Provider: Luis Manuel Mijares MD 74yo male with h/o chronic hypoxic/hypercarbic respiratory failure on home O2 3 Liters continuously, SHIRA on CPAP, permanent a.fib on xarelto, Walker's esophagus, COPD, CAD, and HTN who presents from home with his due to progressive dyspnea. Patient is on BiPAP during my assessment and it is difficult to hear his history. Therefore his supplemented some of the historical details. Apparently in the last 2-3 days he has had worsening dyspnea particularly with exertion. He has had no cough, fever, chills, loss of taste or smell, loss of appetite (although he reports chronic poor appetite), nasal congestion, sore throat, headache, fatigue/malaise, abdominal pain, emesis, diarrhea, dysuria, or myalgias. He denies any worsening LE edema, weight gain or abdominal swelling. He reports using his CPAP each night and did not have orthopnea last night. Denies sick contacts. Denies travel outside of the local area. Had EGD on October [address] Sandhu showing Walker's esophagus. He underwent COVID-19 testing pre-operatively and this was negative. During the ER encounter he was placed on BiPAP, given IV lasix, given prednisone, and received treatment for mild hyperkalemia. He also received a duoneb. He reports "feeling the same" despite all of these measures. Allergies Allergy/AdvReac Type Severity Reaction Status Date / Time adhesive Allergy Mild TAPE-RASH Verified 10/13/19 12:33 oxycodone Allergy Mild RASH Verified 10/13/19 12:33 diltiazem Allergy Unknown Verified 10/13/19 12:33 Home Medications Home Medications Medication Instructions Recorded Confirmed Type Calcium 600 + D(3) 1 cap PO BID 08/21/18 10/13/19 History albuterol sulfate 1 puff INHALATION Q6H PRN 08/21/18 10/13/19 History wzunu-[id number]-ast 1 cap PO QAM 08/21/18 10/13/19 History [MegaRed Reeders-3 Krill Oil] mometasone [Nasonex] 2 spray INTRANASAL HS 08/21/18 10/13/19 History multivitamin 1 tab PO QAM 08/21/18 10/13/19 History omeprazole 40 mg PO BID 08/21/18 10/13/19 History triamcinolone acetonide 1 applic TOPICAL DAILY PRN 08/21/18 10/13/19 History ipratropium 0.5 mg-albuterol 3 mg 3 ml INHALATION Q6H PRN ml 11/04/18 10/13/19 History (2.5 mg base)/3 mL nebulization soln cyanocobalamin (vitamin B-12) 1,000 mcg PO QAM 11/05/18 10/13/19 History [Vitamin B-12] furosemide 40 mg tablet 80 mg PO QAM #90 tab 03/20/19 10/13/19 Rx atenolol 100 mg tablet 200 mg PO BID 05/19/19 10/13/19 History digoxin 125 mcg (0.125 mg) tablet 125 mcg PO QAM #90 tab 07/27/19 10/13/19 Rx rivaroxaban 20 mg tablet 20 mg PO QAM #90 tab 07/27/19 10/13/19 Rx atorvastatin 80 mg tablet 80 mg PO HS #90 tab 09/11/19 10/13/19 Rx Advair Diskus 250 mcg-50 mcg/dose 1 inh INHALATION BID #1 inhaler NS 09/16/19 10/13/19 Rx powder for inhalation montelukast 10 mg PO DAILY 09/24/19 10/13/19 History potassium chloride 10 mEq 20 meq PO BID #360 tab 10/01/19 10/13/19 Rx tablet,extended release Past Med/Surg History Medical History (Updated 10/13/19 @ 19:53 by Anand Higgins) Anemia Atrial fibrillation dx 4-5 years ago --reason for xarelto--follows with Dr. Luna Walker esophagus Chronic obstructive pulmonary disease Denies any h/o hospitalization or intubation. Used advair this am. Has not used albuterol for a few months. Chronic respiratory failure with hypoxia and hypercapnia Difficulty swallowing GERD (gastroesophageal reflux disease) History of heart artery stent x1 2008 @ [facility] by Dr. Luna History of prostate cancer Hyperlipidemia Hypertension Morbid obesity with BMI of 45.0-49.9, adult On anticoagulant therapy On home oxygen therapy 2-3L N/C at all times Sleep apnea CPAP with 2-3L Surgical History History of bilateral cataract extraction History of cardiac cath 2008 @ [facility] - HAD STENT X1 History of colonoscopy History of esophagogastroduodenoscopy (EGD) EUS 03/2019 [facility] EUS 11/21/18 Glidescope 4 with grade 1 view History of lumbar surgery hardware in place History of prostate biopsy malignant History of prostatectomy History of right shoulder replacement History of total left hip replacement History of total right hip replacement History of umbilical hernia repair Hx of esophagogastroduodenoscopy Hx of nasal septoplasty Family History Uncle Prostate cancer Mother Septicemia Father COPD (chronic obstructive pulmonary disease) Pancreatic cancer Other No family history of adverse response to anesthesia Social History (Updated 10/13/19 @ 17:16 by Avila Abraham) Preferred Language: Barbadian Communication Ability: Effective Hearing Ability: Use of Hearing Aid Cyber Special Agent Required: No Beliefs That Will Affect Care: Restorationism, Spiritual and Cultural marital status: Current Living Situation: Spouse Current Living Situation Comment: has step-children 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 Other Information That Helps Us Care for You: No Feels Safe at Home: Yes Safety Concerns: Feels Safe At This Time Smoking Status: Former smoker Tobacco Type: cigarettes ; Age Started Using Tobacco: 17 ; Age Quit Using Tobacco: 54 ; packs per day: 1 ; Do You Dip or Chew Tobacco: No ; Second Hand Exposure: No ; Tobacco Cessation Education Requested by Patient: No Hx Alcohol Use: Yes Alcohol type: hard liquor Alcohol Intake Frequency: Daily Alcohol Intake Frequency Comment: 2-3 daily Hx Substance Use: No Seatbelt Use: always Sunscreen Use: No Review of Systems Constitutional: + anorexia (chronic); no fever, no chills, no fatigue, no weight loss and no weight gain Eyes: no worsening vision Ear, Nose, Mouth, Throat: no nasal discharge, no nasal trauma and no sore throat Respiratory: + dyspnea, + dyspnea on exertion and + wheezing; no cough and no sputum production Cardiovascular: + edema (mild); no chest pain, no orthopnea and no paroxysmal nocturnal dyspnea Gastrointestinal: + melena; no abdominal pain, no nausea, no vomiting, no constipation, no diarrhea/loose stools and no blood in stools Genitourinary: no dysuria Musculoskeletal: no joint pain and no myalgia Integumentary: + rash (feet) Neurologic: no localized weakness and no loss of sensation Psychiatric: no depression Endocrine: denies any diabetes Hematologic / Lymphatic: no unexplained weight loss Physical Exam Constitutional: + morbidly obese; no acute distress and no altered mental status Eyes: PERRL ENMT: Ears: no TM abnormality Mouth: + dry oral mucous membranes Neck: trachea midline, no thyromegaly Respiratory: + tachypneic; does not use accessory muscles Auscultation: + diminished lung sounds (expiratory phase; poor air movement ) and + wheezes (extensive b/l ); no crackles Cardiovascular: Rate/Rhythm: regular rate and + irregularly irregular Heart Sounds: normal S1 and normal S2; no murmur Vessels: posterior tibial pulses present and dorsalis pedis pulses present; no JVD Extremities: + edema (<1+ b/l) Gastrointestinal (Abdomen): normal bowel sounds, soft, nontender, no hepatosplenomegaly Inspection/Auscultation: + abdomen distended Musculoskeletal: no cyanosis or clubbing, extremities motor strength 5/5 Skin: dry feet b/l; mild stasis changes b/l shins Neurologic: deep tendon reflexes 2+ bilaterally and moves all extremities Psychiatric: A+Ox3, euthymic affect Lymphatic: no cervical lymphadenopathy Results & Data Results & Data ([facility]) Vital Signs (Past 12 Hours) Vital Signs Temp Pulse Pulse Resp BP Pulse Ox 10/13/19 15:10 72 24 10/13/19 15:01 68 25 H 158/50 H 10/13/19 15:00 73 24 10/13/19 14:50 67 12 10/13/19 14:40 72 23 10/13/19 14:30 76 27 H 91 10/13/19 14:20 74 18 94 10/13/19 14:12 71 16 94 10/13/19 14:11 74 19 128/60 94 10/13/19 14:10 68 16 93 10/13/19 14:00 95 10/13/19 13:50 97 10/13/19 13:49 76 76 25 H 97 10/13/19 13:48 97 10/13/19 13:20 80 19 100 10/13/19 13:10 76 29 H 100 10/13/19 13:04 71 26 H 100 10/13/19 13:03 74 25 H 140/90 100 10/13/19 13:00 77 29 H 100 10/13/19 12:50 76 24 100 10/13/19 12:40 79 22 100 10/13/19 12:30 83 13 99 10/13/19 12:20 76 27 H 100 10/13/19 12:17 96 10/13/19 12:14 96 10/13/19 12:10 76 15 99 10/13/19 12:00 76 24 10/13/19 11:56 69 17 10/13/19 11:41 36.4 C L 80 20 128/55 L 93 Laboratory Results Laboratory Results - last 24 hr 10/13/19 10/13/19 10/13/19 12:25 12:25 12:25 WBC 9.17 RBC 3.27 L Hgb 8.2 L Hct 29.7 L MCV 90.8 MCH 25.1 MCHC 27.6 L RDW Std Deviation 57.3 H RDW Coeff of Ezekiel 17.2 H Plt Count 266 MPV 11.1 H Immature Gran % (Auto) 0.4 Neut % (Auto) 72.4 Lymph % (Auto) 11.9 [place] % (Auto) 13.4 Eos % (Auto) 1.6 Baso % (Auto) 0.3 Neut # (Auto) 6.63 H Lymph # (Auto) 1.09 L [place] # (Auto) 1.23 H Eos # (Auto) 0.15 Baso # (Auto) 0.03 Immature Gran # (Auto) 0.04 H Absolute Nucleated RBC 0.04 H Nucleated RBC % (auto) 0.4 Hypochromasia Present Stomatocytes 2+ PT 18.1 H INR 1.8 H APTT 30.4 PTT Ratio 1.1 VBG pH VBG pCO2 VBG pO2 VBG HCO3 VBG O2 Saturation VBG Base Excess Barometric Pressure Sodium 144 Potassium 5.9 H Chloride 108 H Carbon Dioxide 36 H Anion Gap 0 L BUN 27 H Creatinine 1.15 Est Cr Clr Drug Dosing 76.4 Est GFR ( Amer) 73.3 Est GFR (Non-Af Amer) 63.2 BUN/Creatinine Ratio 23.2 H Glucose 113 H Calcium 8.3 L Iron Transferrin Transferrin % Sat Ferritin Total Bilirubin AST ALT Alkaline Phosphatase Troponin I < 0.015 NT-Pro-B Natriuret Pep 1176 H Total Protein Albumin Globulin Albumin/Globulin Ratio Lipase 324 Vitamin B12 Folate Digoxin 10/13/19 10/13/19 10/13/19 12:25 12:27 14:37 WBC RBC Hgb Hct MCV MCH MCHC RDW Std Deviation RDW Coeff of Ezekiel Plt Count MPV Immature Gran % (Auto) Neut % (Auto) Lymph % (Auto) [place] % (Auto) Eos % (Auto) Baso % (Auto) Neut # (Auto) Lymph # (Auto) [place] # (Auto) Eos # (Auto) Baso # (Auto) Immature Gran # (Auto) Absolute Nucleated RBC Nucleated RBC % (auto) Hypochromasia Stomatocytes PT INR APTT PTT Ratio VBG pH 7.23 L 7.25 L VBG pCO2 90 H 84 H VBG pO2 27 25 VBG HCO3 37 36 VBG O2 Saturation < 60.0 < 60.0 VBG Base Excess 7.7 7.3 Barometric Pressure 733.4 732.7 Sodium Potassium Chloride Carbon Dioxide Anion Gap BUN Creatinine Est Cr Clr Drug Dosing Est GFR ( Amer) Est GFR (Non-Af Amer) BUN/Creatinine Ratio Glucose Calcium Iron Transferrin Transferrin % Sat Ferritin Total Bilirubin AST ALT Alkaline Phosphatase Troponin I NT-Pro-B Natriuret Pep Total Protein Albumin Globulin Albumin/Globulin Ratio Lipase Vitamin B12 Folate Digoxin 1.4 10/13/19 10/13/19 10/13/19 16:43 16:43 16:43 WBC RBC Hgb Hct MCV MCH MCHC RDW Std Deviation RDW Coeff of Ezekiel Plt Count MPV Immature Gran % (Auto) Neut % (Auto) Lymph % (Auto) [place] % (Auto) Eos % (Auto) Baso % (Auto) Neut # (Auto) Lymph # (Auto) [place] # (Auto) Eos # (Auto) Baso # (Auto) Immature Gran # (Auto) Absolute Nucleated RBC Nucleated RBC % (auto) Hypochromasia Stomatocytes PT INR APTT PTT Ratio VBG pH 7.28 L VBG pCO2 76 H VBG pO2 29 VBG HCO3 35 VBG O2 Saturation < 60.0 VBG Base Excess 7.3 Barometric Pressure 733.0 Sodium 143 Potassium 5.5 H Chloride 107 Carbon Dioxide 35 H Anion Gap 1.0 L BUN 28 H Creatinine 1.04 Est Cr Clr Drug Dosing 84.5 Est GFR ( Amer) 82.7 Est GFR (Non-Af Amer) 71.4 BUN/Creatinine Ratio 26.4 H Glucose 91 Calcium 9.0 Iron 25 L Transferrin 286 Transferrin % Sat 6 L Ferritin 16.3 Total Bilirubin 0.8 AST 26 ALT 25 Alkaline Phosphatase 57 Troponin I NT-Pro-B Natriuret Pep Total Protein 7.2 Albumin 3.3 L Globulin 3.9 Albumin/Globulin Ratio 0.8 L Lipase Vitamin B12 Pending Folate Pending Digoxin Diagnostic Findings cxr - pulm edema EKG - a.fib, no St changes Code Status & VTE Plan Code Status DNR/DNI VTE Prophylaxis Plan VTE Prophylaxis will be ordered: Yes PG Care Time/CCT Total # of Minutes Spent Total Time Spent with Patient: Total time spent is greater than 50% in coordination of care (as documented) at patient's floor/unit and/or counseling patient: Coding Level of Care Code 64338 Initial Inpt Care Lvl 3 Diagnoses Acute on chronic respiratory failure with hypoxia and hypercapnia J96.21; J96.22 COPD (chronic obstructive pulmonary disease) J44.1 COPD type: COPD with acute exacerbation Hyperkalemia E87.5 Coagulopathy D68.9 Anemia D64.9 Anemia type: unspecified type Walker esophagus K22.719 Walker's esophagus type: with dysplasia of unspecified degree CAD (coronary artery disease) I25.10 Associated angina: without angina Coronary Disease-Associated Artery/Lesion type: [place] artery [place] vs. transplanted heart: [place] heart Hypertension I10 Hypertension type: essential hypertension Permanent atrial fibrillation I48.2 Sleep apnea, unspecified G47.33 Sleep apnea type: obstructive Morbid obesity with BMI of 45.0-49.9, adult E66.01; Z68.42 Iron deficiency E61.1 DVT prophylaxis Z29.9 (1) Sleep apnea, unspecified Sleep apnea type: obstructive Qualified Code(s): G47.33 - Obstructive sleep apnea (adult) (pediatric) (2) CAD (coronary artery disease) Associated angina: without angina Coronary Disease-Associated Artery/Lesion type: [place] artery [place] vs. transplanted heart: [place] heart Qualified Code(s): I25.10 - Atherosclerotic heart disease of [place] coronary artery without angina pectoris (3) Anemia Anemia type: unspecified type Qualified Code(s): D64.9 - Anemia, unspecified (4) COPD (chronic obstructive pulmonary disease) COPD type: COPD with acute exacerbation Qualified Code(s): J44.1 - Chronic obstructive pulmonary disease with (acute) exacerbation (5) Walker esophagus Walker's esophagus type: with dysplasia of unspecified degree Qualified Code(s): K22.719 - Walker's esophagus with dysplasia, unspecified (6) Hypertension Hypertension type: essential hypertension Qualified Code(s): I10 - Essential (primary) hypertension
[2019-10-13] MEDS ORDERED: methylPREDNISolone 125 MG/2 ML VIAL IV STA (16:26)
[2019-10-13] MEDS ORDERED: methylPREDNISolone 125 MG/2 ML VIAL ONE (16:48)
[2019-10-13 17:09] LABS: Albumin Level 3.3 gm/dl (3.4-5.0); BUN Creatinine Ratio 26.4 (10-20); Creatinine Clr Calc Pharmacy 84.5 ml/min; Est GFR (African American) 82.7; Est GFR (Non-African American) 71.4; Potassium 5.5 mmol/L (3.5-5.1)
[2019-10-13 17:12] LABS: Albumin Globulin Ratio 0.8 (0.9-2); Bilirubin,Total 0.8 mg/dl (0.2-1); Ferritin 16.3 ng/ml (8-388); Globulin 3.9 gm/dl (2.5-4.0); Total Protein 7.2 gm/dl (6.4-8.2)
[2019-10-13 17:17] LABS: Base Excess VBG 7.3 mEq/L; HCO3 VBG 35 mmol/L; Oxygen Saturation VBG < 60.0 %; PCO2 VBG 76 mmHg (38-50); PO2 VBG 29 mmHg; pH VBG 7.28 (7.36-7.41)
[2019-10-13] MEDS ORDERED: SODIUM POLYSTYRENE SULFONATE 15G/60ML SUSP PO STA ×2 (17:25→19:05)
[2019-10-13 17:35] LABS: Vitamin B12 > 2000 pg/ml (211-911)
[2019-10-13 17:36] LABS: Folate (Folic Acid) 15.59 ng/ml (>5.38)
[2019-10-13] MEDS ORDERED: NITROGLYCERIN SL 0.4 MG/TAB TAB SL PRN (18:40)
[2019-10-13] MEDS ORDERED: ONDANSETRON INJ 2 MG/ML 2 ML VIAL IV PRN (18:40)
[2019-10-13] MEDS: ALBUT/IPRATROP 3MG/0.5MG NEB 3 ML VIAL INH SCH ×2 (19:54→22:28)
[2019-10-13] MEDS: CALCIUM 600MG + VIT D 400 IU TAB PO SCH (20:13)
[2019-10-13] MEDS: ATENOLOL 50 MG TABLET PO SCH (20:13)
[2019-10-13] MEDS: ATORVASTATIN 40 MG TAB PO SCH (20:13)
[2019-10-13] MEDS: PANTOprazole 40 MG TAB PO SCH (20:13)
[2019-10-13] MEDS: methylPREDNISolone 60 MG in SYRINGE 0 ML IV SCH (22:11)
[2019-10-13] MEDS: FLUTICASONE PROPIONATE NA SPR 16 GM BTL SCH (22:11)
[2019-10-13] MEDS ORDERED: methylPREDNISolone 125 MG/2 ML VIAL IV SCH (22:30)
[2019-10-14] MEDS: methylPREDNISolone 60 MG in SYRINGE 0 ML IV SCH ×4 (03:33→20:48)
[2019-10-14] MEDS: ALBUT/IPRATROP 3MG/0.5MG NEB 3 ML VIAL INH SCH ×6 (03:47→22:55)
[2019-10-14 07:28] LABS: INR 1.4 (0.9-1.1); Prothrombin Time 14.3 Seconds (9.0-12.0)
[2019-10-14 07:40] LABS: Hematocrit (blood only) 28.7 % (42-52); Mean Corpuscular Hemoglobin 25.2 pg (25-34); Mean Corpuscular Hgb Conc 27.9 g/dL (32-36); Mean Corpuscular Volume 90.5 fL (80-100); Nucleated RBC # (auto) 0.03 K/uL (0-0); Nucleated RBC % (auto) 0.5 %; Platelet Count 242 K/uL (130-400); RDW Coefficient of Variation 17.2 % (11.5-14.5); RDW Standard Deviation 56.5 fL (36.4-46.3); Red Blood Count 3.17 M/uL (4.7-6.1); White Blood Count 5.16 K/uL (4.8-10.8)
[2019-10-14] MEDS: CYANOCOBALAMIN 500 MCG TABLET (VITAMIN B-12) PO SCH (07:55)
[2019-10-14] MEDS: FERROUS SULFATE 325 MG TAB PO SCH ×2 (07:55→16:15)
[2019-10-14] MEDS: ATENOLOL 50 MG TABLET PO SCH ×2 (07:56→20:49)
[2019-10-14] MEDS: CALCIUM 600MG + VIT D 400 IU TAB PO SCH ×2 (07:56→20:50)
[2019-10-14] MEDS: PANTOprazole 40 MG TAB PO SCH ×2 (07:56→20:51)
[2019-10-14] MEDS: MONTELUKAST SODIUM 10 MG TABLET PO SCH (07:56)
[2019-10-14] MEDS: MULTIVITAMIN TAB PO SCH (07:56)
[2019-10-14] MEDS: RIVAROXABAN 20 MG TAB PO SCH (07:56)
[2019-10-14] MEDS: FLUTICASONE/VILANTEROL 100/25MCG 14 PUFFS/INHALER INH SCH (07:57)
[2019-10-14 07:58] LABS: BUN Creatinine Ratio 29.4 (10-20); Calcium 8.7 mg/dl (8.5-10.1); Creatinine Clr Calc Pharmacy 93.5 ml/min; Est GFR (African American) 91.2; Est GFR (Non-African American) 78.7; Potassium 5.1 mmol/L (3.5-5.1)
[2019-10-14] MEDS: DIGOXIN 0.125 MG TAB PO SCH (16:15)
[2019-10-14] MEDS: ATORVASTATIN 40 MG TAB PO SCH (20:49)
[2019-10-14] MEDS: FLUTICASONE PROPIONATE NA SPR 16 GM BTL SCH (20:49)
--- NOTE | 2019-10-14 22:36 | Hospitalist Progress Note ---
Date of Service October 14, 2019 Assessment & Plan (1) Acute on chronic respiratory failure with hypoxia and hypercapnia: Patient with chronic respiratory failure at baseline It appears to be multfactorial: likely combination of COPD, SHIRA, etc. Now with acute on chronic respiratory failure - acute component most likely COPD exacerbation. He had no response to IV lasix in the ER (i.e. no UOP). He has not had any increase in weight, peripheral edema, etc. Plan - * rVBG is showing an improvement in his CO2. Given how he is improving, likely his baseline is high. * continue BiPAP HS. * solumedrol 60mg IV q6h * duonebs q4h * continue advair * pulmonary toilet * no cough, sputum production, or infectious symptoms; defer on antibiotics for now * hold off on additional diuretic at this time * Will continnue to monitor: continues to be wheezing. (2) COPD (chronic obstructive pulmonary disease): With exacerbation. Severe COPD at baseline. Patient reports symptoms worsened recently in the heat outside. Environmental/allergic trigger? other? Again no infectious symptoms. IV steroids as above. Duonebs q4h. Defer on antibiotics for now. Pulmonary toilet. No COVID-19 risk factors (no travel, sick contacts, etc). Defer on COVID testing at this time. (also had negative COVID-19 test earlier this month). (3) Hyperkalemia: Mild volume depletion/prerenal state in the setting of chronic potassium supplementation? improved will monitor (4) Coagulopathy: INR 1.8 today. Is on xarelto and novel agents can make INR modestly elevated but typically not 1.8. Check LFTs to ensure no liver dysfunction. Repeat INR am. Platelets noted to be normal. (5) Anemia: Check iron studies, B12, and folate level. Patient reporting melena stools. Iron studies are suggestive of iron def. anemia with low ferritin and iron. Has prior h/o iron deficiency. Check fecal occult blood test: pending. will repeat CBC in am. Cont PPI bid. Just had EGD a few weeks ago and, although Walker's was present, he had no source of bleeding. 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 (7) CAD (coronary artery disease): No ischemic symptoms. Stable EKG. Troponin negative. Continue atenolol, statin. Uncertain why not on aspirin. (8) Hypertension: Continue all home medications except lasix for now. (9) Permanent atrial fibrillation: Rates controlled. Continue atenolol. Continue xarelto. (10) Sleep apnea, unspecified: Continue CPAP or BiPAP (BiPAP for now due to hypercarbia). (11) Morbid obesity with BMI of 45.0-49.9, adult: BMI 48.7 (12) Iron deficiency: History of such. Significant anemia found on CBC. Patient reporting melena stools. Check iron studies. Check fecal occult blood test. CBC in am. (13) DVT prophylaxis: xarelto Admission and Anticipated Discharge Date Admission Date: October 13, 2019 Subjective Patient continues to feel SOB at rest, but it has decreased in intensity. He states he does feel better, but not quite at baseline. Patient deneis any fever, chills, nausea, or vomiting. Review of Systems Review of Systems: All systems reviewed & are unremarkable except as noted in HPI & below Physical Exam Physical Exam: Constitutional: + morbidly obese; no acute distress and no altered mental status Eyes: PERRL ENMT: Ears: no TM abnormality Mouth: + dry oral mucous membranes Neck: trachea midline, no thyromegaly Respiratory: + tachypneic; does not use accessory muscles Auscultation: + diminished lung sounds (expiratory phase; poor air movement ) and + wheezes (extensive b/l ); no crackles Cardiovascular: Rate/Rhythm: regular rate and + irregularly irregular Heart Sounds: normal S1 and normal S2; no murmur Vessels: posterior tibial pulses present and dorsalis pedis pulses present; no JVD Extremities: + edema (<1+ b/l) Gastrointestinal (Abdomen): normal bowel sounds, soft, nontender, no hepatosplenomegaly Inspection/Auscultation: + abdomen distended Musculoskeletal: no cyanosis or clubbing, extremities motor strength 5/5 Skin: dry feet b/l; mild stasis changes b/l shins Neurologic: deep tendon reflexes 2+ bilaterally and moves all extremities Psychiatric: A+Ox3, euthymic affect Lymphatic: no cervical lymphadenopathy Results & Data Results & Data ([facility]) Vital Signs (Past 12 Hours) Vital Signs Temp Pulse Pulse Resp BP Pulse Ox 10/14/19 21:42 102 H 27 H 94 07/15/20 19:21 36.2 C L 97 H 20 135/72 94 10/14/19 19:09 101 H 18 94 10/14/19 16:15 81 10/14/19 15:39 36.6 C 90 24 121/74 94 10/14/19 15:09 81 18 93 10/14/19 11:14 36.4 C L 79 20 149/85 H 98 10/14/19 11:08 79 20 95 PG Care Time/CCT Total # of Minutes Spent Total Time Spent with Patient: Total time spent is greater than 50% in coordination of care (as documented) at patient's floor/unit and/or counseling patient: Coding Level of Care Code 77467 Subseq Hosp Care Lvl 3 Diagnoses Acute on chronic respiratory failure with hypoxia and hypercapnia J96.21; J96.22 COPD (chronic obstructive pulmonary disease) J44.1 COPD type: COPD with acute exacerbation Hyperkalemia E87.5 Coagulopathy D68.9 Anemia D64.9 Anemia type: unspecified type Walker esophagus K22.719 Walker's esophagus type: with dysplasia of unspecified degree CAD (coronary artery disease) I25.10 Associated angina: without angina Coronary Disease-Associated Artery/Lesion type: [place] artery [place] vs. transplanted heart: [place] heart Hypertension I10 Hypertension type: essential hypertension Permanent atrial fibrillation I48.2 Sleep apnea, unspecified G47.33 Sleep apnea type: obstructive Morbid obesity with BMI of 45.0-49.9, adult E66.01; Z68.42 Iron deficiency E61.1 DVT prophylaxis Z29.9 Time Spent (min) 35 (1) Sleep apnea, unspecified Sleep apnea type: obstructive Qualified Code(s): G47.33 - Obstructive sleep apnea (adult) (pediatric) (2) CAD (coronary artery disease) Associated angina: without angina Coronary Disease-Associated Artery/Lesion type: [place] artery [place] vs. transplanted heart: [place] heart Qualified Code(s): I25.10 - Atherosclerotic heart disease of [place] coronary artery without angina pectoris (3) Anemia Anemia type: unspecified type Qualified Code(s): D64.9 - Anemia, unspecified (4) COPD (chronic obstructive pulmonary disease) COPD type: COPD with acute exacerbation Qualified Code(s): J44.1 - Chronic obstructive pulmonary disease with (acute) exacerbation (5) Walker esophagus Walker's esophagus type: with dysplasia of unspecified degree Qualified Code(s): K22.719 - Walker's esophagus with dysplasia, unspecified (6) Hypertension Hypertension type: essential hypertension Qualified Code(s): I10 - Essential (primary) hypertension
[2019-10-15] MEDS: ALBUT/IPRATROP 3MG/0.5MG NEB 3 ML VIAL INH SCH ×6 (03:08→23:19)
[2019-10-15] MEDS: methylPREDNISolone 60 MG in SYRINGE 0 ML IV SCH ×3 (03:26→15:27)
[2019-10-15] MEDS: PANTOprazole 40 MG TAB PO SCH ×2 (08:32→20:53)
[2019-10-15] MEDS: RIVAROXABAN 20 MG TAB PO SCH (08:33)
[2019-10-15] MEDS: ATENOLOL 50 MG TABLET PO SCH ×2 (08:33→20:52)
[2019-10-15] MEDS: MULTIVITAMIN TAB PO SCH (08:33)
[2019-10-15] MEDS: FLUTICASONE/VILANTEROL 100/25MCG 14 PUFFS/INHALER INH SCH (08:33)
[2019-10-15] MEDS: CALCIUM 600MG + VIT D 400 IU TAB PO SCH ×2 (08:33→20:52)
[2019-10-15] MEDS: MONTELUKAST SODIUM 10 MG TABLET PO SCH (08:33)
[2019-10-15] MEDS: FERROUS SULFATE 325 MG TAB PO SCH ×2 (08:34→15:29)
[2019-10-15] MEDS: CYANOCOBALAMIN 500 MCG TABLET (VITAMIN B-12) PO SCH (08:34)
[2019-10-15 10:30] LABS: Calcium 8.5 mg/dl (8.5-10.1); Creatinine Clr Calc Pharmacy 97.2 ml/min; Est GFR (African American) 94.7; Est GFR (Non-African American) 81.7; Potassium 4.7 mmol/L (3.5-5.1)
[2019-10-15] MEDS ORDERED: FUROSEMIDE 40 MG in SYRINGE 0 ML IV ONE ×2 (12:00→16:30)
[2019-10-15] MEDS: POLYETHYLENE (MIRALAX) 17 GM PACK PO SCH (12:49)
--- NOTE | 2019-10-15 13:21 | XRay Report ---
XR chest 2V PA/lateral CLINICAL HISTORY: Respiratory failure COMPARISON STUDY: 10/13/2019 FINDINGS: The heart remains enlarged. There is radiographic evidence of congestive failure/fluid over load. There are bilateral pleural effusions. There are basilar airspace opacities, likely atelectatic . A superimposed infectious/inflammatory process cannot be excluded[ IMPRESSION: Cardiomegaly and radiographic evidence of congestive failure/fluid overload with bilatera l pleural effusions ACT 112: Negative or not required by law. Electronically signed by: Hira Moreno M.D. 10/15/2019 1:19 PM
--- NOTE | 2019-10-15 14:02 | Ultrasound Report ---
US venous doppler UE LT CLINICAL HISTORY: Left arm edema. Possible DVT COMPARISON STUDY: No previous studies for comparison. FINDINGS: No intraluminal thrombus was visualized. The internal jugular, subclavian, axillary, cephal ic, brachial, basilic, radial, and ulnar veins were patent. There is soft tissue edema. IMPRESSION: No evidence of left upper extremity DVT. ACT 112: Negative or not required by law. Electronically signed by: Hira Moreno M.D. 10/15/2019 2:00 PM
[2019-10-15] MEDS: SENNA 8.6 MG TAB PO SCH (15:27)
[2019-10-15] MEDS: DIGOXIN 0.125 MG TAB PO SCH (15:28)
[2019-10-15] MEDS: FLUTICASONE PROPIONATE NA SPR 16 GM BTL SCH (20:51)
[2019-10-15] MEDS: methylPREDNISolone 40 MG in SYRINGE 0 ML IV SCH (20:52)
[2019-10-15] MEDS: ATORVASTATIN 40 MG TAB PO SCH (20:53)
--- NOTE | 2019-10-15 21:19 | Hospitalist Progress Note ---
Date of Service October 15, 2019 Assessment & Plan (1) Acute on chronic respiratory failure with hypoxia and hypercapnia: Patient with chronic respiratory failure at baseline - likely combination of COPD, SHIRA, etc. Now with acute on chronic respiratory failure - acute component 2nd COPD exace rbation +/- acute/chronic diastolic CHF. * cont solumedrol but lower dose to 40mg IV q6h * duonebs q4h * continue advair * pulmonary toilet * no cough, sputum production, or infectious symptoms; defer on antibiotics * cxr today with pulmonary edema - resume lasix but give IV x 2 doses today (2) COPD (chronic obstructive pulmonary disease): With exacerbation. Severe COPD at baseline. Patient reports symptoms worsened recently in the heat outside. Environmental/allergic trigger? other? Again no infectious symptoms. IV steroids as above. Duonebs q4h. Defer on antibiotics. Pulmonary toilet. repeat cxr today with pulmonary edema. diurese. (3) Hyperkalemia: resolved still holding K supplementation (4) Coagulopathy: repeat INR after admission 1.4 INR elevation likely 2nd to xarelto (5) Anemia: Fe studies c/w severe Fe def. Cont ferrous sulfate BID. Check fecal occult blood test. CBC in am. Cont PPI bid. Just had EGD a few weeks ago and, although Walker's was present, he had no source of bleeding. 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 (7) CAD (coronary artery disease): No ischemic symptoms. Stable EKG. Troponin negative. Continue atenolol, statin. Uncertain why not on aspirin. (8) Hypertension: Continue all home medications (9) Permanent atrial fibrillation: Rates controlled. Continue atenolol. Continue xarelto. (10) Sleep apnea, unspecified: Continue BiPAP HS (11) Morbid obesity with BMI of 45.0-49.9, adult: BMI 51 - rise during the stay likely edema (12) Iron deficiency: severe Fe supplementation hb in am will need GI evaluation post-d/c (13) Acute on chronic diastolic (congestive) heart failure: lasix IV x 2 today (14) Edema of left upper arm: check doppler - r/o DVT if negative - likely due to CHF?? (15) DVT prophylaxis: xarelto updated by phone today PT/OT requested Admission and Anticipated Discharge Date Admission Date: October 13, 2019 Subjective patient reports slow improvement in dyspnea still no significant cough appetite fair still with edema mainly of left arm and b/l legs c/o constipation no other new complaints tele - a.fib, rates controlled Review of Systems Constitutional: no fever and no chills Respiratory: + wheezing; no hemoptysis Cardiovascular: no chest pain Gastrointestinal: no abdominal pain, no nausea and no vomiting Physical Exam Constitutional: + morbidly obese; no acute distress and no altered mental status ENMT: external ear and nose normal, oropharynx normal Respiratory: no respiratory distress Auscultation: + crackles and + wheezes (Extensive b/l -- but improved relative to my admit exam) Cardiovascular: Rate/Rhythm: regular rate and + irregularly irregular Heart Sounds: normal S1 and normal S2; no murmur Vessels: + JVD (Mild?), posterior tibial pulses present and dorsalis pedis pulses present Extremities: + edema (2+ left arm, 1+ right arm; <1+ b/l legs ) Gastrointestinal (Abdomen): normal bowel sounds, soft, nontender, no hepatosplenomegaly Inspection/Auscultation: + abdomen distended Psychiatric: A+Ox3, euthymic affect Results & Data Results & Data ([facility]) Vital Signs (Past 12 Hours) Vital Signs Temp Pulse Pulse Resp BP BP Pulse Ox 10/15/19 19:38 36.8 C 79 19 131/75 95 10/15/19 19:21 89 20 90 10/15/19 16:00 80 10/15/19 15:55 92 H 18 96 10/15/19 15:46 36.4 C L 80 22 161/78 H 96 10/15/19 15:28 80 10/15/19 12:59 36.6 C 84 22 121/77 93 10/15/19 11:07 79 20 97 Laboratory Results Laboratory Results - last 24 hr 10/15/19 10/15/19 10/15/19 09:43 11:33 16:18 Sodium 143 Potassium 4.7 Chloride 104 Carbon Dioxide 35 H Anion Gap 4.0 BUN 28 H Creatinine 0.93 Est Cr Clr Drug Dosing 97.2 Est GFR ( Amer) 94.7 Est GFR (Non-Af Amer) 81.7 BUN/Creatinine Ratio 30.0 H Glucose 162 H POC Glucose 149 H 146 H Calcium 8.5 PG Care Time/CCT Total # of Minutes Spent Total Time Spent with Patient: Total time spent is greater than 50% in coordination of care (as documented) at patient's floor/unit and/or counseling patient: Coding Level of Care Code 57226 Subseq Hosp Care Lvl 3 Diagnoses Acute on chronic respiratory failure with hypoxia and hypercapnia J96.21; J96 .22 COPD (chronic obstructive pulmonary disease) J44.1 COPD type: COPD with acute exacerbation Hyperkalemia E87.5 Coagulopathy D68.9 Anemia D64.9 Anemia type: unspecified type Walker esophagus K22.719 Walker's esophagus type: with dysplasia of unspecified degree CAD (coronary artery disease) I25.10 Associated angina: without angina Coronary Disease-Associated Artery/Lesion type: [place] artery [place] vs. transplanted heart: [place] heart Hypertension I10 Hypertension type: essential hypertension Permanent atrial fibrillation I48.2 Sleep apnea, unspecified G47.33 Sleep apnea type: obstructive Morbid obesity with BMI of 45.0-49.9, adult E66.01; Z68.42 Iron deficiency E61.1 Acute on chronic diastolic (congestive) heart failure I50.33 Edema of left upper arm R60.0 DVT prophylaxis Z29.9 (1) Sleep apnea, unspecified Sleep apnea type: obstructive Qualified Code(s): G47.33 - Obstructive sleep apnea (adult) (pediatric) (2) CAD (coronary artery disease) Associated angina: without angina Coronary Disease-Associated Artery/Lesion type: [place] artery [place] vs. 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
[2019-10-16] MEDS: ALBUT/IPRATROP 3MG/0.5MG NEB 3 ML VIAL INH SCH ×6 (02:45→22:45)
[2019-10-16] MEDS: methylPREDNISolone 40 MG in SYRINGE 0 ML IV SCH ×4 (03:19→20:16)
[2019-10-16 06:51] LABS: BUN Creatinine Ratio 32.2 (10-20); Calcium 8.9 mg/dl (8.5-10.1); Est GFR (African American) 94.7; Est GFR (Non-African American) 81.7; Potassium 4.5 mmol/L (3.5-5.1)
[2019-10-16] MEDS ORDERED: IRON SUCROSE 200 MG in 0.9 % SODIUM CHLORIDE 100 ML IV ONE (08:30)
[2019-10-16] MEDS: MONTELUKAST SODIUM 10 MG TABLET PO SCH (08:40)
[2019-10-16] MEDS: FLUTICASONE/VILANTEROL 100/25MCG 14 PUFFS/INHALER INH SCH (08:40)
[2019-10-16] MEDS: MULTIVITAMIN TAB PO SCH (08:40)
[2019-10-16] MEDS: ATENOLOL 50 MG TABLET PO SCH ×2 (08:41→20:16)
[2019-10-16] MEDS: PANTOprazole 40 MG TAB PO SCH ×2 (08:41→20:17)
[2019-10-16] MEDS: CYANOCOBALAMIN 500 MCG TABLET (VITAMIN B-12) PO SCH (08:41)
[2019-10-16] MEDS: SENNA 8.6 MG TAB PO SCH (08:42)
[2019-10-16] MEDS: CALCIUM 600MG + VIT D 400 IU TAB PO SCH ×2 (08:42→20:17)
[2019-10-16] MEDS: POLYETHYLENE (MIRALAX) 17 GM PACK PO SCH (08:42)
[2019-10-16] MEDS: RIVAROXABAN 20 MG TAB PO SCH (08:42)
[2019-10-16] MEDS: FERROUS SULFATE 325 MG TAB PO SCH (08:43)
[2019-10-16] MEDS: FUROSEMIDE 40 MG in SYRINGE 0 ML IV SCH ×2 (09:37→15:54)
--- NOTE | 2019-10-16 12:17 | Hospitalist Progress Note ---
Date of Service October 16, 2019 Assessment & Plan (1) Acute on chronic respiratory failure with hypoxia and hypercapnia: Patient with chronic respiratory failure at baseline - likely combination of COPD, SHIRA, etc. Now with acute on chronic respiratory failure - acute component 2nd COPD exace rbation + acute/chronic diastolic CHF. * cont solumedrol 40mg IV q6h - no wean today * duonebs q4h * continue advair * pulmonary toilet * no cough, sputum production, or infectious symptoms; cont to defer on antibiotics * cont lasix 40mg IV BID (2) COPD (chronic obstructive pulmonary disease): With exacerbation. Severe COPD at baseline. Patient reports symptoms worsened recently in the heat outside. Environmental/allergic trigger? IV steroids as above. Duonebs q4h. Defer on antibiotics. Pulmonary toilet. cont diuresis for CHF. (3) Hyperkalemia: resolved still holding K supplementation that he typically takes at home (4) Coagulopathy: repeat INR after admission 1.4 INR elevation likely 2nd to xarelto (5) Anemia: 2nd severe Fe def. Just had EGD a few weeks ago and, although Walker's was present, he had no lauryn rce of bleeding. s/p venofer 200mg yesterday. will repeat tomorrow. refusing PO supplementation. will need outpatient colonoscopy and/or capsule study. stool indeed heme+. CBC am. 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 (7) CAD (coronary artery disease): No ischemic symptoms. Stable EKG. Troponin negative. Continue atenolol, statin. Uncertain why not on aspirin. (8) Hypertension: Continue all home medications (9) Permanent atrial fibrillation: Rates controlled. Continue atenolol. Continue xarelto. (10) Sleep apnea, unspecified: Continue BiPAP HS (11) Morbid obesity with BMI of 45.0-49.9, adult: BMI >50 (12) Acute on chronic diastolic (congestive) heart failure: cont to tiny (13) Edema of left upper arm: checked doppler - DVT ruled out unusual to have this even with CHF if this persists then check chest CT (14) Iron deficiency: severe see above in anemia (15) Heme positive stool: PPI BID outpatient w/u will be needed (16) DVT prophylaxis: xarelto updated at bedside today cont PT/OT Admission and Anticipated Discharge Date Admission Date: October 13, 2019 Subjective patient's breathing improved no cough eating well LUE edema still present LE edema about at baseline had bowel movement today - was heme+ tele overnight - rate controlled a.[email or web address] at bedside today Review of Systems Constitutional: no fever, no chills, no fatigue and no anorexia Respiratory: + dyspnea on exertion (at baseline); no hemoptysis and no wheezing Cardiovascular: no chest pain Gastrointestinal: no abdominal pain, no nausea and no vomiting Physical Exam Constitutional: + morbidly obese; no acute distress and no altered mental status ENMT: external ear and nose normal, oropharynx normal Respiratory: no respiratory distress and does not use accessory muscles Auscultation: + diminished lung sounds (air movement improving slowly ) and + wheezes (Extensive b/l but improved from prior exams); no crackles Cardiovascular: Rate/Rhythm: regular rate and + irregularly irregular Heart Sounds: normal S1 and normal S2; no murmur Vessels: posterior tibial pulses present and dorsalis pedis pulses present; no JVD Extremities: + edema (1+ left arm, none right arm; 1+ b/l legs ) Gastrointestinal (Abdomen): normal bowel sounds, soft, nontender, no hepatosplenomegaly Psychiatric: A+Ox3, euthymic affect Results & Data Results & Data ([facility]) Vital Signs (Past 12 Hours) Vital Signs Temp Pulse Pulse Resp BP BP Pulse Ox 10/16/19 12:01 36.5 C 81 19 101/46 L 98 10/16/19 11:06 84 19 92 10/16/19 08:00 68 10/16/19 07:41 36.3 C L 77 22 123/69 95 10/16/19 07:15 82 82 21 92 10/16/19 03:23 36.8 C 80 18 122/71 88 L 10/16/19 02:47 71 18 95 10/16/19 02:46 71 17 95 Laboratory Results Laboratory Results - last 24 hr 10/15/19 10/16/19 10/16/19 16:18 05:35 05:38 Sodium 143 Potassium 4.5 Chloride 101 Carbon Dioxide 37 H Anion Gap 5.0 BUN 30 H Creatinine 0.93 Est Cr Clr Drug Dosing 97.0 Est GFR ( Amer) 94.7 Est GFR (Non-Af Amer) 81.7 BUN/Creatinine Ratio 32.2 H Glucose 127 H POC Glucose 146 H Calcium 8.9 Stool Occult Bld Scrn Positive A 10/16/19 10/16/19 07:30 11:33 Sodium Potassium Chloride Carbon Dioxide Anion Gap BUN Creatinine Est Cr Clr Drug Dosing Est GFR ( Amer) Est GFR (Non-Af Amer) BUN/Creatinine Ratio Glucose POC Glucose 126 H 159 H Calcium Stool Occult Bld Scrn PG Care Time/CCT Total # of Minutes Spent Total Time Spent with Patient: Total time spent is greater than 50% in coordination of care (as documented) at patient's floor/unit and/or counseling patient: Coding Level of Care Code 87652 Subseq Hosp Care Lvl 3 Diagnoses Acute on chronic respiratory failure with hypoxia and hypercapnia J96.21; J96.22 COPD (chronic obstructive pulmonary disease) J44.1 COPD type: COPD with acute exacerbation Hyperkalemia E87.5 Coagulopathy D68.9 Anemia D64.9 Anemia type: unspecified type Walker esophagus K22.719 Walker's esophagus type: with dysplasia of unspecified degree CAD (coronary artery disease) I25.10 Associated angina: without angina Coronary Disease-Associated Artery/Lesion type: [place] artery [place] vs. transplanted heart: [place] heart Hypertension I10 Hypertension type: essential hypertension Permanent atrial fibrillation I48.2 Sleep apnea, unspecified G47.33 Sleep apnea type: obstructive Morbid obesity with BMI of 45.0-49.9, adult E66.01; Z68.42 Acute on chronic diastolic (congestive) heart failure I50.33 Edema of left upper arm R60.0 Iron deficiency E61.1 Heme positive stool R19.5 DVT prophylaxis Z29.9 (1) Sleep apnea, unspecified Sleep apnea type: obstructive Qualified Code(s): G47.33 - Obstructive sleep apnea (adult) (pediatric) (2) CAD (coronary artery disease) Associated angina: without angina Coronary Disease-Associated Artery/Lesion type: [place] artery [place] vs. 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
[2019-10-16] MEDS: DIGOXIN 0.125 MG TAB PO SCH (15:55)
[2019-10-16] MEDS: ATORVASTATIN 40 MG TAB PO SCH (20:17)
[2019-10-16] MEDS: FLUTICASONE PROPIONATE NA SPR 16 GM BTL SCH (20:18)
[2019-10-17] MEDS: ALBUT/IPRATROP 3MG/0.5MG NEB 3 ML VIAL INH SCH ×6 (02:35→23:10)
[2019-10-17] MEDS: methylPREDNISolone 40 MG in SYRINGE 0 ML IV SCH ×2 (04:57→08:36)
[2019-10-17 06:30] LABS: Hematocrit (blood only) 27.6 % (42-52); Hemoglobin 7.8 g/dL (14.0-18.0); Mean Corpuscular Hemoglobin 25.2 pg (25-34); Mean Corpuscular Hgb Conc 28.3 g/dL (32-36); Mean Platelet Volume 10.4 fL (7.4-10.4); Nucleated RBC # (auto) 0.11 K/uL (0-0); Nucleated RBC % (auto) 1.5 %; Platelet Count 251 K/uL (130-400); RDW Coefficient of Variation 17.7 % (11.5-14.5); RDW Standard Deviation 57.1 fL (36.4-46.3); White Blood Count 7.73 K/uL (4.8-10.8)
[2019-10-17 06:57] LABS: BUN Creatinine Ratio 33.4 (10-20); Calcium 8.3 mg/dl (8.5-10.1); Creatinine Clr Calc Pharmacy 115.7 ml/min; Est GFR (African American) 104.5; Est GFR (Non-African American) 90.2; Magnesium 2.3 mg/dl (1.8-2.4); Potassium 4.4 mmol/L (3.5-5.1)
[2019-10-17] MEDS ORDERED: IRON SUCROSE 200 MG in 0.9 % SODIUM CHLORIDE 100 ML IV ONE (08:30)
[2019-10-17] MEDS: FUROSEMIDE 40 MG in SYRINGE 0 ML IV SCH (08:36)
[2019-10-17] MEDS: ATENOLOL 50 MG TABLET PO SCH ×2 (08:36→21:00)
[2019-10-17] MEDS: MULTIVITAMIN TAB PO SCH (08:36)
[2019-10-17] MEDS: POLYETHYLENE (MIRALAX) 17 GM PACK PO SCH (08:37)
[2019-10-17] MEDS: MONTELUKAST SODIUM 10 MG TABLET PO SCH (08:37)
[2019-10-17] MEDS: CYANOCOBALAMIN 500 MCG TABLET (VITAMIN B-12) PO SCH (08:37)
[2019-10-17] MEDS: FLUTICASONE/VILANTEROL 100/25MCG 14 PUFFS/INHALER INH SCH (08:37)
[2019-10-17] MEDS: SENNA 8.6 MG TAB PO SCH (08:37)
[2019-10-17] MEDS: CALCIUM 600MG + VIT D 400 IU TAB PO SCH ×2 (08:38→21:00)
[2019-10-17] MEDS: PANTOprazole 40 MG TAB PO SCH ×2 (08:38→21:01)
[2019-10-17] MEDS: RIVAROXABAN 20 MG TAB PO SCH (08:41)
--- NOTE | 2019-10-17 15:18 | Hospitalist Progress Note ---
Date of Service October 17, 2019 Assessment & Plan (1) Acute on chronic respiratory failure with hypoxia and hypercapnia: Patient with chronic respiratory failure at baseline - likely combination of COPD, SHIRA, etc. Acute component 2nd COPD exacerbation + acute/chronic diastolic CHF. -- IMPR OVING. * cont solumedrol - wean to 30mg IV q6h * duonebs q4h * continue advair * pulmonary toilet, flutter valve/incentive lata * no cough, sputum production, or infectious symptoms; cont to defer on an tibiotics * cont lasix but increase to 60mg IV BID (2) COPD (chronic obstructive pulmonary disease): With exacerbation. Severe COPD at baseline. Patient reports symptoms worsened recently in the heat outside. Environmental/allergic trigger? IV steroids as above. Duonebs q4h. Pulmonary toilet. (3) Acute on chronic diastolic (congestive) heart failure: cont to diurese but increase to 60mg IV BID lasix BMP am (4) Coagulopathy: INR 1.8 at admission - lab error? repeat INR was 1.4 INR elevation likely 2nd to xarelto use (5) Anemia: 2nd severe Fe def. Just had EGD a few weeks ago and, although Walker's was present, he had no source of bleeding. s/p venofer 200mg x 2 doses thus far; will give 3rd dose tomorrow am. Hb 7.8 today; if any Hb < 7.5 then Tx PRBCs in light of significant cardiopulmonary disease. will need outpatient colonoscopy and/or capsule study. stool indeed heme+. Hb am. 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 (7) CAD (coronary artery disease): No ischemic symptoms. Stable EKG. Troponin negative. Continue atenolol, statin. Uncertain why not on aspirin. In light of CAD and anemia low threshold for PRBC infusion. (8) Hypertension: Continue all home medications (9) Permanent atrial fibrillation: Rates controlled. Continue atenolol. Continue xarelto. (10) Sleep apnea, unspecified: Continue BiPAP HS (11) Morbid obesity with BMI of 45.0-49.9, adult: BMI >50 but improving w/ diuresis (12) Edema of left upper arm: checked doppler - DVT ruled out unusual to have this even with CHF but edema IS improving w/ diuresis if this persists then check chest CT to r/o SVC compression (13) Iron deficiency: severe see above in anemia (14) Heme positive stool: PPI BID recent EGD w/o bleeding source outpatient w/u will be needed (15) DVT prophylaxis: xarelto updated at bedside today cont PT/OT, but rehab not recommended by either anticipate another 2 days of hospitalization Admission and Anticipated Discharge Date Admission Date: October 13, 2019 Subjective patient sitting in chair getting neb upon my arrival. feels same or better than yesterday. starting to cough - mainly with use of flutter valve. RIVERA is nearing his baseline. appetite fair/good. had another BM this am. tolerated venofer this morning. no new complaints. tele - rate-controlled a.fib. Review of Systems Constitutional: no fever and no chills Respiratory: + cough, + dyspnea on exertion and + wheezing; no dyspnea, no hemoptysis and no sputum production Cardiovascular: + edema; no chest pain and no orthopnea Gastrointestinal: no abdominal pain, no nausea, no vomiting, no constipation and no diarrhea/loose stools Physical Exam 2 Constitutional: + morbidly obese; no acute distress and no altered mental status ENMT: external ear and nose normal, oropharynx normal Respiratory: no respiratory distress and does not use accessory muscles Auscultation: + diminished lung sounds (exp phase; bases of lungs ) and + wheezes (b/l ); no crackles Cardiovascular: Rate/Rhythm: regular rate and + irregularly irregular Heart Sounds: normal S1 and normal S2; no murmur Vessels: posterior tibial pulses present and dorsalis pedis pulses present; no JVD Extremities: + edema (<1+ left arm (improved), none right arm; 1+ b/l legs - no change ) Gastrointestinal (Abdomen): normal bowel sounds, soft, nontender, no hepatosplenomegaly Psychiatric: A+Ox3, euthymic affect Results & Data Results & Data ([facility]) Vital Signs (Past 12 Hours) Vital Signs Temp Pulse Resp BP BP Pulse Ox 10/17/19 15:11 89 20 145/71 H 95 10/17/19 15:01 79 16 95 10/17/19 11:22 36.5 C 82 20 102/66 95 10/17/19 11:06 72 16 93 10/17/19 07:45 76 18 96 10/17/19 07:17 70 20 116/78 98 07/18/20 04:00 36.5 C 77 18 106/69 97 Laboratory Results Laboratory Results - last 24 hr 10/16/19 10/16/19 10/17/19 16:15 20:29 06:14 WBC 7.73 RBC 3.10 L Hgb 7.8 L Hct 27.6 L MCV 89.0 MCH 25.2 MCHC 28.3 L RDW Std Deviation 57.1 H RDW Coeff of Ezekiel 17.7 H Plt Count 251 MPV 10.4 Absolute Nucleated RBC 0.11 H Nucleated RBC % (auto) 1.5 Sodium Potassium Chloride Carbon Dioxide Anion Gap BUN Creatinine Est Cr Clr Drug Dosing Est GFR ( Amer) Est GFR (Non-Af Amer) BUN/Creatinine Ratio Glucose POC Glucose 161 H 206 H Calcium Magnesium 10/17/19 10/17/19 10/17/19 06:14 07:46 11:48 WBC RBC Hgb Hct MCV MCH MCHC RDW Std Deviation RDW Coeff of Ezekiel Plt Count MPV Absolute Nucleated RBC Nucleated RBC % (auto) Sodium 143 Potassium 4.4 Chloride 99 Carbon Dioxide 40 H Anion Gap 4.0 BUN 26 H Creatinine 0.78 Est Cr Clr Drug Dosing 115.7 Est GFR ( Amer) 104.5 Est GFR (Non-Af Amer) 90.2 BUN/Creatinine Ratio 33.4 H Glucose 118 H POC Glucose 129 H 165 H Calcium 8.3 L Magnesium 2.3 PG Care Time/CCT Total # of Minutes Spent Total Time Spent with Patient: Total time spent is greater than 50% in coordination of care (as documented) at patient's floor/unit and/or counseling patient: Coding Level of Care Code 12323 Subseq Hosp Care Lvl 3 Diagnoses Acute on chronic respiratory failure with hypoxia and hypercapnia J96.21; J96.22 COPD (chronic obstructive pulmonary disease) J44.1 COPD type: COPD with acute exacerbation Acute on chronic diastolic (congestive) heart failure I50.33 Coagulopathy D68.9 Anemia D64.9 Anemia type: unspecified type Walker esophagus K22.719 Walker's esophagus type: with dysplasia of unspecified degree CAD (coronary artery disease) I25.10 Associated angina: without angina Coronary Disease-Associated Artery/Lesion type: [place] artery [place] vs. transplanted heart: [place] heart Hypertension I10 Hypertension type: essential hypertension Permanent atrial fibrillation I48.2 Sleep apnea, unspecified G47.33 Sleep apnea type: obstructive Morbid obesity with BMI of 45.0-49.9, adult E66.01; Z68.42 Edema of left upper arm R60.0 Iron deficiency E61.1 Heme positive stool R19.5 DVT prophylaxis Z29.9 (1) Sleep apnea, unspecified Sleep apnea type: obstructive Qualified Code(s): G47.33 - Obstructive sleep apnea (adult) (pediatric) (2) CAD (coronary artery disease) Associated angina: without angina Coronary Disease-Associated Artery/Lesion type: [place] artery [place] vs. transplanted heart: [place] heart Qualified Code(s): I25.10 - Atherosclerotic heart disease of [place] coronary artery without angina pectoris (3) Anemia Anemia type: unspecified type Qualified Code(s): D64.9 - Anemia, unspecified (4) COPD (chronic obstructive pulmonary disease) COPD type: COPD with acute exacerbation Qualified Code(s): J44.1 - Chronic obstructive pulmonary disease with (acute) exacerbation (5) Walker esophagus Walker's esophagus type: with dysplasia of unspecified degree Qualified Code(s): K22.719 - Walker's esophagus with dysplasia, unspecified (6) Hypertension Hypertension type: essential hypertension Qualified Code(s): I10 - Essential (primary) hypertension
[2019-10-17] MEDS: FUROSEMIDE 60 MG in SYRINGE 0 ML IV SCH (16:14)
[2019-10-17] MEDS: DIGOXIN 0.125 MG TAB PO SCH (16:14)
[2019-10-17] MEDS: methylPREDNISolone 30 MG in SYRINGE 0 ML IV SCH ×2 (16:14→21:00)
[2019-10-17] MEDS: ATORVASTATIN 40 MG TAB PO SCH (21:01)
[2019-10-17] MEDS: FLUTICASONE PROPIONATE NA SPR 16 GM BTL SCH (21:03)
[2019-10-18] MEDS: ALBUT/IPRATROP 3MG/0.5MG NEB 3 ML VIAL INH SCH ×6 (03:38→23:20)
[2019-10-18] MEDS: methylPREDNISolone 30 MG in SYRINGE 0 ML IV SCH ×3 (04:11→20:10)
[2019-10-18] MEDS: FUROSEMIDE 60 MG in SYRINGE 0 ML IV SCH ×2 (08:16→17:23)
[2019-10-18] MEDS: FLUTICASONE/VILANTEROL 100/25MCG 14 PUFFS/INHALER INH SCH (08:16)
[2019-10-18] MEDS: CYANOCOBALAMIN 500 MCG TABLET (VITAMIN B-12) PO SCH (08:17)
[2019-10-18] MEDS: CALCIUM 600MG + VIT D 400 IU TAB PO SCH ×2 (08:17→20:10)
[2019-10-18] MEDS: RIVAROXABAN 20 MG TAB PO SCH (08:17)
[2019-10-18] MEDS: ATENOLOL 50 MG TABLET PO SCH ×2 (08:17→20:13)
[2019-10-18] MEDS: MONTELUKAST SODIUM 10 MG TABLET PO SCH (08:17)
[2019-10-18] MEDS: SENNA 8.6 MG TAB PO SCH (08:17)
[2019-10-18] MEDS: PANTOprazole 40 MG TAB PO SCH ×2 (08:17→20:13)
[2019-10-18] MEDS: MULTIVITAMIN TAB PO SCH (08:17)
[2019-10-18] MEDS: POLYETHYLENE (MIRALAX) 17 GM PACK PO SCH (08:21)
[2019-10-18] MEDS ORDERED: IRON SUCROSE 200 MG in 0.9 % SODIUM CHLORIDE 100 ML IV ONE (08:30)
[2019-10-18 08:36] LABS: BUN Creatinine Ratio 31.2 (10-20); Calcium 8.9 mg/dl (8.5-10.1); Creatinine Clr Calc Pharmacy 101.8 ml/min; Est GFR (Non-African American) 85.4; Potassium 4.3 mmol/L (3.5-5.1)
--- NOTE | 2019-10-18 10:15 | Hospitalist Progress Note ---
Date of Service October 18, 2019 Assessment & Plan (1) Acute on chronic respiratory failure with hypoxia and hypercapnia: Patient with chronic respiratory failure at baseline - likely combination of COPD, obesity-hypoventilation syndrome, etc. Acute component 2nd COPD exacerbation + acute/chronic diastolic CHF. -- IMPROVING. * cont solumedrol - wean to 30mg IV q12h * duonebs q4h * continue advair * pulmonary toilet, flutter valve/incentive lata * lasix 60mg IV BID (2) COPD (chronic obstructive pulmonary disease): With exacerbation. Severe COPD at baseline. IMPROVING flare. wean steroids to q12h. cont nebs, inhalers, O2, pulmonary toilet. (3) Acute on chronic diastolic (congestive) heart failure: improving. continue lasix 60mg IV BID. typically takes lasix 40mg PO BID at home. Follows with Dr Luna. cont daily weights, fluid restriction, etc. (4) Coagulopathy: INR 1.8 at admission - lab error? repeat INR was 1.4 INR elevation likely 2nd to xarelto use (5) Anemia: 2nd severe Fe def. Ferritin level 16. H/H improved today. Just had EGD a few weeks ago by Dr Sandhu. Walker's was present but had no source of bleeding. s/p venofer 200mg x 3 doses thus far. check retic, ferritin, and Hb in am. this will help determine if he needs additional Fe IV. will need outpatient colonoscopy and/or capsule study with Dr Sandhu. stool indeed heme+. 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 (8) Heme positive stool: PPI BID recent EGD w/o bleeding source outpatient w/u will be needed (colonoscopy, etc) (9) CAD (coronary artery disease): No ischemic symptoms. Stable EKG. Continue atenolol, statin. Uncertain why not on aspirin. In light of CAD and anemia low threshold for PRBC infusion. (10) Hypertension: Continue all home medications (11) Permanent atrial fibrillation: Rates controlled. Continue atenolol. Continue xarelto. (12) Sleep apnea, unspecified: Continue BiPAP HS (13) Morbid obesity with BMI of 45.0-49.9, adult: BMI >50 but improving w/ diuresis (14) Edema of left upper arm: checked doppler - DVT ruled out improved/nearly resolved w/ diuresis doubt SVC syndrome (15) DVT prophylaxis: xarelto updated by phone today cont PT/OT, but rehab not recommended by either anticipate another 1-2 days of hospitalization Admission and Anticipated Discharge Date Admission Date: October 13, 2019 Subjective patient overall doing well had 3rd venofer treatment today w/o incident denies any new complaints feels about "50%" better relative to his baseline still with RIVERA above his baseline eating well Review of Systems Constitutional: no fever Respiratory: + cough (minimal), + dyspnea on exertion and + wheezing; no dyspnea Cardiovascular: + edema; no chest pain and no dyspnea at rest Gastrointestinal: no abdominal pain and no constipation Physical Exam Constitutional: + morbidly obese; no acute distress and no altered mental status ENMT: external ear and nose normal, oropharynx normal Respiratory: no respiratory distress and does not use accessory muscles Auscultation: + diminished lung sounds (exp phase; bases of lungs ) and + wheezes (b/l - but again improved relative to 10/16 exam); no crackles Cardiovascular: Rate/Rhythm: regular rate and + irregularly irregular Heart Sounds: normal S1 and normal S2; no murmur Vessels: posterior tibial pulses present and dorsalis pedis pulses present; no JVD Extremities: + edema (left arm resolved; 1+ b/l legs - no change (firm edema)) Gastrointestinal (Abdomen): normal bowel sounds, soft, nontender, no hepatosplenomegaly Psychiatric: A+Ox3, euthymic affect Results & Data Results & Data ([facility]) Vital Signs (Past 12 Hours) Vital Signs Temp Pulse Pulse Resp BP Pulse Ox 10/18/19 07:32 21 93 10/18/19 07:27 36.6 C 70 20 101/61 92 10/18/19 03:42 58 L 29 H 97 10/18/19 03:39 58 L 29 H 97 10/18/19 03:01 37 C 80 19 104/67 96 10/17/19 23:31 36.6 C 81 18 110/75 97 10/17/19 23:11 80 22 94 Laboratory Results Laboratory Results - last 24 hr 10/17/19 10/17/19 10/17/19 11:48 16:39 20:17 Hgb Sodium Potassium Chloride Carbon Dioxide Anion Gap BUN Creatinine Est Cr Clr Drug Dosing Est GFR ( Amer) Est GFR (Non-Af Amer) BUN/Creatinine Ratio Glucose POC Glucose 165 H 128 H 180 H Calcium 10/18/19 10/18/19 10/18/19 07:09 07:09 07:43 Hgb 8.9 L Sodium 140 Potassium 4.3 Chloride 97 L Carbon Dioxide 38 H Anion Gap 5.0 BUN 28 H Creatinine 0.89 Est Cr Clr Drug Dosing 101.8 Est GFR ( Amer) 99.0 Est GFR (Non-Af Amer) 85.4 BUN/Creatinine Ratio 31.2 H Glucose 110 H POC Glucose 127 H Calcium 8.9 PG Care Time/CCT Total # of Minutes Spent Total Time Spent with Patient: Total time spent is greater than 50% in coordination of care (as documented) at patient's floor/unit and/or counseling patient: Coding Level of Care Code 20106 Subseq Hosp Care Lvl 3 Diagnoses Acute on chronic respiratory failure with hypoxia and hypercapnia J96.21; J96.22 COPD (chronic obstructive pulmonary disease) J44.1 COPD type: COPD with acute exacerbation Acute on chronic diastolic (congestive) heart failure I50.33 Coagulopathy D68.9 Anemia D64.9 Anemia type: unspecified type Iron deficiency E61.1 Walker esophagus K22.719 Walker's esophagus type: with dysplasia of unspecified degree Heme positive stool R19.5 CAD (coronary artery disease) I25.10 Associated angina: without angina Coronary Disease-Associated Artery/Lesion type: [place] artery [place] vs. transplanted heart: [place] heart Hypertension I10 Hypertension type: essential hypertension Permanent atrial fibrillation I48.2 Sleep apnea, unspecified G47.33 Sleep apnea type: obstructive Morbid obesity with BMI of 45.0-49.9, adult E66.01; Z68.42 Edema of left upper arm R60.0 DVT prophylaxis Z29.9 (1) Sleep apnea, unspecified Sleep apnea type: obstructive Qualified Code(s): G47.33 - Obstructive sleep apnea (adult) (pediatric) (2) CAD (coronary artery disease) Associated angina: without angina Coronary Disease-Associated Artery/Lesion type: [place] artery [place] vs. transplanted heart: [place] heart Qualified Code(s): I25.10 - Atherosclerotic heart disease of [place] coronary artery without angina pectoris (3) Anemia Anemia type: unspecified type Qualified Code(s): D64.9 - Anemia, unspecified (4) COPD (chronic obstructive pulmonary disease) COPD type: COPD with acute exacerbation Qualified Code(s): J44.1 - Chronic obstructive pulmonary disease with (acute) exacerbation (5) Walker esophagus Walker's esophagus type: with dysplasia of unspecified degree Qualified Code(s): K22.719 - Walker's esophagus with dysplasia, unspecified (6) Hypertension Hypertension type: essential hypertension Qualified Code(s): I10 - Essential (primary) hypertension
[2019-10-18] MEDS: NYSTATIN SUSP 500,000 U/5 ML UDC PO SCH ×3 (13:08→20:13)
[2019-10-18] MEDS: DIGOXIN 0.125 MG TAB PO SCH (16:21)
[2019-10-18] MEDS: FLUTICASONE PROPIONATE NA SPR 16 GM BTL SCH (20:12)
[2019-10-18] MEDS: ATORVASTATIN 40 MG TAB PO SCH (20:13)
[2019-10-19] MEDS: ALBUT/IPRATROP 3MG/0.5MG NEB 3 ML VIAL INH SCH ×6 (03:16→22:59)
[2019-10-19 07:09] LABS: Reticulocyte % 5.2 % (0.5-2.0); Reticulocytes # 0.19 10^6/uL (0.02-0.10)
[2019-10-19 07:37] LABS: BUN Creatinine Ratio 34.6 (10-20); Calcium 8.2 mg/dl (8.5-10.1); Creatinine Clr Calc Pharmacy 116.1 ml/min; Est GFR (African American) 104.5; Est GFR (Non-African American) 90.2; Ferritin 247.7 ng/ml (8-388); Potassium 3.8 mmol/L (3.5-5.1)
[2019-10-19] MEDS: CYANOCOBALAMIN 500 MCG TABLET (VITAMIN B-12) PO SCH (08:40)
[2019-10-19] MEDS: ATENOLOL 50 MG TABLET PO SCH ×2 (08:40→21:36)
[2019-10-19] MEDS: RIVAROXABAN 20 MG TAB PO SCH (08:40)
[2019-10-19] MEDS: CALCIUM 600MG + VIT D 400 IU TAB PO SCH ×2 (08:40→21:36)
[2019-10-19] MEDS: MULTIVITAMIN TAB PO SCH (08:40)
[2019-10-19] MEDS: SENNA 8.6 MG TAB PO SCH (08:40)
[2019-10-19] MEDS: FLUTICASONE/VILANTEROL 100/25MCG 14 PUFFS/INHALER INH SCH (08:41)
[2019-10-19] MEDS: NYSTATIN SUSP 500,000 U/5 ML UDC PO SCH ×4 (08:41→21:36)
[2019-10-19] MEDS: MONTELUKAST SODIUM 10 MG TABLET PO SCH (08:41)
[2019-10-19] MEDS: methylPREDNISolone 30 MG in SYRINGE 0 ML IV SCH ×2 (08:41→21:35)
[2019-10-19] MEDS: FUROSEMIDE 60 MG in SYRINGE 0 ML IV SCH ×2 (08:41→17:41)
[2019-10-19] MEDS: PANTOprazole 40 MG TAB PO SCH ×2 (08:41→21:36)
[2019-10-19] MEDS: POLYETHYLENE (MIRALAX) 17 GM PACK PO SCH (08:55)
[2019-10-19] MEDS: ACETAMINOPHEN 325 MG TAB PO PRN (15:22)
[2019-10-19] MEDS: DIGOXIN 0.125 MG TAB PO SCH (15:23)
--- NOTE | 2019-10-19 15:55 | Hospitalist Progress Note ---
Date of Service October 19, 2019 Assessment & Plan (1) Acute on chronic respiratory failure with hypoxia and hypercapnia: Patient with chronic respiratory failure at baseline - likely combination of COPD, obesity-hypoventilation syndrome, etc. Acute component 2nd COPD exacerbation + acute/chronic diastolic CHF. -- IMPROVING. - Continue Advair - Switch steroid to oral tomorrow * lasix 60mg IV BID (2) COPD (chronic obstructive pulmonary disease): With exacerbation. Severe COPD at baseline. - Improving cont nebs, inhalers, O2, pulmonary toilet. (3) Acute on chronic diastolic (congestive) heart failure: Typically takes lasix 40mg PO BID at home. Follows with Dr Luna. - Cont daily weights, fluid restriction, etc. - Continue with Lasix 60 mg IV BID (4) Anemia: 2nd severe Fe def. Ferritin level 16. Just had EGD a few weeks ago by Dr Sandhu. Walker's was present but had no source of bleeding. - S/p venofer 200mg x 3 doses - Will need outpatient colonoscopy and/or capsule study with Dr Sandhu; stool is heme positive. 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 (6) CAD (coronary artery disease): No ischemic symptoms. Stable EKG. - Continue atenolol, statin. (7) Hypertension: BP is 125/65 today. Continue all home medications (8) Permanent atrial fibrillation: Rates controlled. - Continue atenolol. - Continue Xarelto. (9) Sleep apnea, unspecified: Continue BiPAP HS (10) DVT prophylaxis: Xarelto Admission and Anticipated Discharge Date Admission Date: October 13, 2019 Subjective Improving somewhat today. Still with some mild wheezing. Reports no fevers/chills, chest pain, abdominal pain, nausea, or vomiting. Physical Exam Constitutional: WD/WN, vitals as above Eyes: EOM intact bilaterally; no conjunctival abnormality ENMT: external ear and nose normal, oropharynx normal Neck: trachea midline, no thyromegaly normal visual inspection Respiratory: no respiratory distress Auscultation: + wheezes Cardiovascular: RRR, no murmur, no edema Gastrointestinal (Abdomen): Inspection/Auscultation: abdomen normal to inspection; abdomen not distended Musculoskeletal: no cyanosis or clubbing, extremities motor strength 5/5 Skin: no rashes, warm and dry Neurologic: moves all extremities and awake Psychiatric: Orientation: alert, oriented to person and cooperative Results & Data Results & Data ([facility]) Vital Signs (Past 12 Hours) Vital Signs Temp Pulse Pulse Resp BP Pulse Ox 10/19/19 15:37 84 18 96 10/19/19 15:35 36.6 C 76 18 124/65 94 10/19/19 15:23 77 10/19/19 11:14 82 16 93 10/19/19 07:31 36.8 C 82 16 148/69 H 95 10/19/19 06:58 72 22 94 PG Care Time/CCT Total # of Minutes Spent Total Time Spent with Patient: Total time spent is greater than 50% in coordination of care (as documented) at patient's floor/unit and/or counseling patient: Coding Level of Care Code 64647 Subseq Hosp Care Lvl 2 Diagnoses Acute on chronic respiratory failure with hypoxia and hypercapnia J96.21; J96.22 COPD (chronic obstructive pulmonary disease) J44.1 COPD type: COPD with acute exacerbation Acute on chronic diastolic (congestive) heart failure I50.33 Anemia D64.9 Anemia type: unspecified type Walker esophagus K22.719 Walker's esophagus type: with dysplasia of unspecified degree CAD (coronary artery disease) I25.10 Coronary Disease-Associated Artery/Lesion type: [place] artery [place] vs. transplanted heart: [place] heart Associated angina: without angina Hypertension I10 Hypertension type: essential hypertension Permanent atrial fibrillation I48.2 Sleep apnea, unspecified G47.33 Sleep apnea type: obstructive DVT prophylaxis Z29.9 (1) COPD (chronic obstructive pulmonary disease) COPD type: COPD with acute exacerbation Qualified Code(s): J44.1 - Chronic obstructive pulmonary disease with (acute) exacerbation (2) Anemia Anemia type: unspecified type Qualified Code(s): D64.9 - Anemia, unspecified (3) Walker esophagus Walker's esophagus type: with dysplasia of unspecified degree Qualified Code(s): K22.719 - Walker's esophagus with dysplasia, unspecified (4) CAD (coronary artery disease) Coronary Disease-Associated Artery/Lesion type: [place] artery [place] vs. transplanted heart: [place] heart Associated angina: without angina Qualified Code(s): I25.10 - Atherosclerotic heart disease of [place] coronary artery without angina pectoris (5) Hypertension Hypertension type: essential hypertension Qualified Code(s): I10 - Essential (primary) hypertension (6) Sleep apnea, unspecified Sleep apnea type: obstructive Qualified Code(s): G47.33 - Obstructive sleep apnea (adult) (pediatric)
[2019-10-19] MEDS: ATORVASTATIN 40 MG TAB PO SCH (21:37)
[2019-10-19] MEDS: FLUTICASONE PROPIONATE NA SPR 16 GM BTL SCH (21:37)
[2019-10-20] MEDS: ALBUT/IPRATROP 3MG/0.5MG NEB 3 ML VIAL INH SCH ×6 (03:13→22:53)
[2019-10-20 06:13] LABS: Hematocrit (blood only) 30.9 % (42-52); Hemoglobin 8.9 g/dL (14.0-18.0); Mean Corpuscular Hemoglobin 25.7 pg (25-34); Mean Corpuscular Hgb Conc 28.8 g/dL (32-36); Mean Corpuscular Volume 89.3 fL (80-100); Mean Platelet Volume 10.8 fL (7.4-10.4); Nucleated RBC # (auto) 0.07 K/uL (0-0); Nucleated RBC % (auto) 0.7 %; Platelet Count 278 K/uL (130-400); RDW Coefficient of Variation 19.8 % (11.5-14.5); RDW Standard Deviation 56.3 fL (36.4-46.3); Red Blood Count 3.46 M/uL (4.7-6.1); White Blood Count 10.31 K/uL (4.8-10.8)
[2019-10-20 06:37] LABS: Calcium 8.1 mg/dl (8.5-10.1); Creatinine Clr Calc Pharmacy 105.7 ml/min; Est GFR (African American) 101.4; Est GFR (Non-African American) 87.5; Magnesium 2.5 mg/dl (1.8-2.4); Potassium 3.8 mmol/L (3.5-5.1)
[2019-10-20] MEDS: FUROSEMIDE 60 MG in SYRINGE 0 ML IV SCH ×2 (08:28→16:11)
[2019-10-20] MEDS: RIVAROXABAN 20 MG TAB PO SCH (08:29)
[2019-10-20] MEDS: predniSONE 20 MG TAB PO SCH (08:29)
[2019-10-20] MEDS: MULTIVITAMIN TAB PO SCH (08:29)
[2019-10-20] MEDS: NYSTATIN SUSP 500,000 U/5 ML UDC PO SCH ×4 (08:29→20:47)
[2019-10-20] MEDS: CYANOCOBALAMIN 500 MCG TABLET (VITAMIN B-12) PO SCH (08:29)
[2019-10-20] MEDS: MONTELUKAST SODIUM 10 MG TABLET PO SCH (08:30)
[2019-10-20] MEDS: ATENOLOL 50 MG TABLET PO SCH ×2 (08:30→20:51)
[2019-10-20] MEDS: SENNA 8.6 MG TAB PO SCH (08:30)
[2019-10-20] MEDS: FLUTICASONE/VILANTEROL 100/25MCG 14 PUFFS/INHALER INH SCH (08:31)
[2019-10-20] MEDS: PANTOprazole 40 MG TAB PO SCH ×2 (08:31→20:47)
[2019-10-20] MEDS: CALCIUM 600MG + VIT D 400 IU TAB PO SCH ×2 (08:32→20:48)
[2019-10-20] MEDS: POLYETHYLENE (MIRALAX) 17 GM PACK PO SCH (08:38)
--- NOTE | 2019-10-20 12:08 | Hospitalist Progress Note ---
Date of Service October 20, 2019 Assessment & Plan (1) Acute on chronic respiratory failure with hypoxia and hypercapnia: Patient with chronic respiratory failure at baseline - likely combination of COPD, obesity-hypoventilation syndrome, etc. Acute component 2nd COPD exacerbation + acute/chronic diastolic CHF. -- IMPROVING. - Continue Advair - Switched to prednisone 40mg daily on 10/19 - Continue Lasix 60mg IV BID (2) COPD (chronic obstructive pulmonary disease): With exacerbation. Severe COPD at baseline. - Improving - Cont nebs, inhalers, O2, pulmonary toilet. (3) Acute on chronic diastolic (congestive) heart failure: Typically takes lasix 40mg PO BID at home. Follows with Dr Luna. - Cont daily weights, fluid restriction, etc. - Continue with Lasix 60 mg IV BID -> Cr stable. Wt at 139 kg today. Net -1.5L in 24 hours. (4) Anemia: 2nd severe Fe def. Ferritin level 16. Just had EGD a few weeks ago by Dr. Sandhu. Walker's was present but had no source of bleeding. - S/p Venofer 200mg x 3 doses - Will need outpatient colonoscopy and/or capsule study with Dr. Sandhu; stool is heme positive. 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 (6) CAD (coronary artery disease): No ischemic symptoms. Stable EKG. - Continue atenolol, statin. (7) Hypertension: BP is 105/65 today. - Continue all home medications (8) Permanent atrial fibrillation: Rates controlled. - Continue atenolol. - Continue Xarelto. (9) Sleep apnea, unspecified: - Continue BiPAP HS (10) DVT prophylaxis: Xarelto Admission and Anticipated Discharge Date Admission Date: October 13, 2019 Subjective About 1/2 better compared to baseline. Reports no fevers/chills, chest pain, abdominal pain, nausea, or vomiting. Physical Exam Constitutional: WD/WN, vitals as above Eyes: EOM intact bilaterally; no conjunctival abnormality ENMT: external ear and nose normal, oropharynx normal Neck: trachea midline, no thyromegaly normal visual inspection Respiratory: no respiratory distress Auscultation: + wheezes Cardiovascular: RRR, no murmur, no edema Gastrointestinal (Abdomen): Inspection/Auscultation: abdomen normal to inspection; abdomen not distended Musculoskeletal: no cyanosis or clubbing, extremities motor strength 5/5 Skin: no rashes, warm and dry Neurologic: moves all extremities and awake Psychiatric: Orientation: alert, oriented to person and cooperative Results & Data Results & Data ([facility]) Vital Signs (Past 12 Hours) Vital Signs Temp Pulse Pulse Resp BP Pulse Ox 10/20/19 11:20 86 16 95 10/20/19 07:26 65 18 93 10/20/19 07:07 36.5 C 65 20 100/65 95 10/20/19 03:15 69 20 92 10/20/19 03:13 69 20 92 PG Care Time/CCT Total # of Minutes Spent Total Time Spent with Patient: Total time spent is greater than 50% in coordination of care (as documented) at patient's floor/unit and/or counseling patient: Coding Level of Care Code 56083 Subseq Hosp Care Lvl 2 Diagnoses Acute on chronic respiratory failure with hypoxia and hypercapnia J96.21; J96.22 COPD (chronic obstructive pulmonary disease) J44.1 COPD type: COPD with acute exacerbation Acute on chronic diastolic (congestive) heart failure I50.33 Anemia D64.9 Anemia type: unspecified type Walker esophagus K22.719 Walker's esophagus type: with dysplasia of unspecified degree CAD (coronary artery disease) I25.10 Coronary Disease-Associated Artery/Lesion type: [place] artery [place] vs. transplanted heart: [place] heart Associated angina: without angina Hypertension I10 Hypertension type: essential hypertension Permanent atrial fibrillation I48.2 Sleep apnea, unspecified G47.33 Sleep apnea type: obstructive DVT prophylaxis Z29.9 (1) COPD (chronic obstructive pulmonary disease) COPD type: COPD with acute exacerbation Qualified Code(s): J44.1 - Chronic obstructive pulmonary disease with (acute) exacerbation (2) Anemia Anemia type: unspecified type Qualified Code(s): D64.9 - Anemia, unspecified (3) Walker esophagus Walker's esophagus type: with dysplasia of unspecified degree Qualified Code(s): K22.719 - Walker's esophagus with dysplasia, unspecified (4) CAD (coronary artery disease) Coronary Disease-Associated Artery/Lesion type: [place] artery [place] vs. transplanted heart: [place] heart Associated angina: without angina Qualified Code(s): I25.10 - Atherosclerotic heart disease of [place] coronary artery without angina pectoris (5) Hypertension Hypertension type: essential hypertension Qualified Code(s): I10 - Essential (primary) hypertension (6) Sleep apnea, unspecified Sleep apnea type: obstructive Qualified Code(s): G47.33 - Obstructive sleep apnea (adult) (pediatric)
[2019-10-20] MEDS: DIGOXIN 0.125 MG TAB PO SCH (16:13)
[2019-10-20] MEDS: ATORVASTATIN 40 MG TAB PO SCH (20:48)
[2019-10-20] MEDS: FLUTICASONE PROPIONATE NA SPR 16 GM BTL SCH (20:48)
[2019-10-20] MEDS: ACETAMINOPHEN 325 MG TAB PO PRN (20:55)
[2019-10-21] MEDS: ALBUT/IPRATROP 3MG/0.5MG NEB 3 ML VIAL INH SCH ×6 (03:30→22:42)
[2019-10-21 07:49] LABS: Creatinine Clr Calc Pharmacy 121.4 ml/min; Est GFR (African American) 107.4; Est GFR (Non-African American) 92.7; Potassium 3.8 mmol/L (3.5-5.1)
[2019-10-21] MEDS: FLUTICASONE/VILANTEROL 100/25MCG 14 PUFFS/INHALER INH SCH (08:07)
[2019-10-21] MEDS: ATENOLOL 50 MG TABLET PO SCH ×2 (08:08→21:00)
[2019-10-21] MEDS: CYANOCOBALAMIN 500 MCG TABLET (VITAMIN B-12) PO SCH (08:08)
[2019-10-21] MEDS: FUROSEMIDE 60 MG in SYRINGE 0 ML IV SCH ×2 (08:09→17:57)
[2019-10-21] MEDS: PANTOprazole 40 MG TAB PO SCH ×2 (08:09→20:56)
[2019-10-21] MEDS: predniSONE 20 MG TAB PO SCH (08:09)
[2019-10-21] MEDS: CALCIUM 600MG + VIT D 400 IU TAB PO SCH ×2 (08:09→20:56)
[2019-10-21] MEDS: NYSTATIN SUSP 500,000 U/5 ML UDC PO SCH ×4 (08:10→20:56)
[2019-10-21] MEDS: MONTELUKAST SODIUM 10 MG TABLET PO SCH (08:10)
[2019-10-21] MEDS: MULTIVITAMIN TAB PO SCH (08:10)
[2019-10-21] MEDS: RIVAROXABAN 20 MG TAB PO SCH (08:10)
[2019-10-21] MEDS: SENNA 8.6 MG TAB PO SCH (08:11)
[2019-10-21] MEDS: POLYETHYLENE (MIRALAX) 17 GM PACK PO SCH (08:16)
--- NOTE | 2019-10-21 15:38 | Hospitalist Progress Note ---
Date of Service October 21, 2019 Assessment & Plan (1) Acute on chronic respiratory failure with hypoxia and hypercapnia: Patient with chronic respiratory failure at baseline - likely combination of COPD, obesity-hypoventilation syndrome, etc. Acute component 2nd COPD exacerbation + acute/chronic diastolic CHF. -- IMPROVING today, but slowly. - Continue Advair - Switched to prednisone 40mg daily on 10/19 - Continue Lasix 60mg IV BID (2) COPD (chronic obstructive pulmonary disease): With exacerbation. Severe COPD at baseline. - Improving - Cont nebs, inhalers, O2, pulmonary toilet. (3) Acute on chronic diastolic (congestive) heart failure: Typically takes lasix 40mg PO BID at home. Follows with Dr Luna. - Cont daily weights, fluid restriction, etc. - Continue with Lasix 60 mg IV BID -> Cr stable. Wt at 139 kg today. Net -800 mL in 24 hours. (4) Anemia: 2nd severe Fe def. Ferritin level 16. Just had EGD a few weeks ago by Dr. Sandhu. Walker's was present but had no source of bleeding. - S/p Venofer 200mg x 3 doses - Will need outpatient colonoscopy and/or capsule study with Dr. Sandhu; stool is heme positive. 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 (6) CAD (coronary artery disease): No ischemic symptoms. Stable EKG. - Continue atenolol, statin. (7) Hypertension: BP is 100/65 today. - Continue all home medications (8) Permanent atrial fibrillation: Rates controlled. - Continue atenolol. - Continue Xarelto. (9) Sleep apnea, unspecified: - Continue BiPAP HS (10) DVT prophylaxis: Xarelto Admission and Anticipated Discharge Date Admission Date: October 13, 2019 Subjective Somewhat better this morning, though still only slightly above 50%. Reports no fevers/chills, chest pain, abdominal pain, nausea, or vomiting. Physical Exam Constitutional: WD/WN, vitals as above Eyes: EOM intact bilaterally; no conjunctival abnormality ENMT: external ear and nose normal, oropharynx normal Neck: trachea midline, no thyromegaly normal visual inspection Respiratory: no respiratory distress Auscultation: + wheezes Cardiovascular: RRR, no murmur, no edema Gastrointestinal (Abdomen): Inspection/Auscultation: abdomen normal to inspection; abdomen not distended Musculoskeletal: no cyanosis or clubbing, extremities motor strength 5/5 Skin: no rashes, warm and dry Neurologic: moves all extremities and awake Psychiatric: Orientation: alert, oriented to person and cooperative Results & Data Results & Data ([facility]) Vital Signs (Past 12 Hours) Vital Signs Temp Pulse Pulse Resp BP Pulse Ox 10/21/19 15:11 75 18 96 10/21/19 11:17 57 L 16 95 10/21/19 08:00 36.7 C 72 16 94/57 L 94 10/21/19 07:14 73 18 97 10/21/19 04:00 36.6 C 71 18 108/68 97 PG Care Time/CCT Total # of Minutes Spent Total Time Spent with Patient: Total time spent is greater than 50% in coordination of care (as documented) at patient's floor/unit and/or counseling patient: Coding Level of Care Code 65794 Subseq Hosp Care Lvl 2 Diagnoses Acute on chronic respiratory failure with hypoxia and hypercapnia J96.21; J96.22 COPD (chronic obstructive pulmonary disease) J44.1 COPD type: COPD with acute exacerbation Acute on chronic diastolic (congestive) heart failure I50.33 Anemia D64.9 Anemia type: unspecified type Walker esophagus K22.719 Walker's esophagus type: with dysplasia of unspecified degree CAD (coronary artery disease) I25.10 Coronary Disease-Associated Artery/Lesion type: [place] artery [place] vs. transplanted heart: [place] heart Associated angina: without angina Hypertension I10 Hypertension type: essential hypertension Permanent atrial fibrillation I48.2 Sleep apnea, unspecified G47.33 Sleep apnea type: obstructive DVT prophylaxis Z29.9 (1) COPD (chronic obstructive pulmonary disease) COPD type: COPD with acute exacerbation Qualified Code(s): J44.1 - Chronic obstructive pulmonary disease with (acute) exacerbation (2) Anemia Anemia type: unspecified type Qualified Code(s): D64.9 - Anemia, unspecified (3) Walker esophagus Walker's esophagus type: with dysplasia of unspecified degree Qualified Code(s): K22.719 - Walker's esophagus with dysplasia, unspecified (4) CAD (coronary artery disease) Coronary Disease-Associated Artery/Lesion type: [place] artery [place] vs. transplanted heart: [place] heart Associated angina: without angina Qualified Code(s): I25.10 - Atherosclerotic heart disease of [place] coronary artery without angina pectoris (5) Hypertension Hypertension type: essential hypertension Qualified Code(s): I10 - Essential (primary) hypertension (6) Sleep apnea, unspecified Sleep apnea type: obstructive Qualified Code(s): G47.33 - Obstructive sleep apnea (adult) (pediatric)
[2019-10-21] MEDS: DIGOXIN 0.125 MG TAB PO SCH (17:26)
[2019-10-21] MEDS: ATORVASTATIN 40 MG TAB PO SCH (20:56)
[2019-10-21] MEDS: ACETAMINOPHEN 325 MG TAB PO PRN (21:00)
[2019-10-21] MEDS: FLUTICASONE PROPIONATE NA SPR 16 GM BTL SCH (21:02)
[2019-10-22] MEDS: ALBUT/IPRATROP 3MG/0.5MG NEB 3 ML VIAL INH SCH ×6 (03:38→23:26)
[2019-10-22] MEDS: NYSTATIN SUSP 500,000 U/5 ML UDC PO SCH ×4 (08:11→20:35)
[2019-10-22] MEDS: FUROSEMIDE 60 MG in SYRINGE 0 ML IV SCH ×2 (08:11→16:10)
[2019-10-22] MEDS: PANTOprazole 40 MG TAB PO SCH ×2 (08:11→20:39)
[2019-10-22] MEDS: CYANOCOBALAMIN 500 MCG TABLET (VITAMIN B-12) PO SCH (08:11)
[2019-10-22] MEDS: RIVAROXABAN 20 MG TAB PO SCH (08:12)
[2019-10-22] MEDS: MONTELUKAST SODIUM 10 MG TABLET PO SCH (08:12)
[2019-10-22] MEDS: SENNA 8.6 MG TAB PO SCH (08:12)
[2019-10-22] MEDS: ATENOLOL 50 MG TABLET PO SCH ×2 (08:12→20:38)
[2019-10-22] MEDS: CALCIUM 600MG + VIT D 400 IU TAB PO SCH ×2 (08:12→20:38)
[2019-10-22] MEDS: MULTIVITAMIN TAB PO SCH (08:13)
[2019-10-22] MEDS: predniSONE 20 MG TAB PO SCH (08:13)
[2019-10-22] MEDS: POLYETHYLENE (MIRALAX) 17 GM PACK PO SCH (08:14)
[2019-10-22] MEDS: FLUTICASONE/VILANTEROL 100/25MCG 14 PUFFS/INHALER INH SCH (08:15)
[2019-10-22 08:24] LABS: Hematocrit (blood only) 34.3 % (42-52); Hemoglobin 9.8 g/dL (14.0-18.0); Mean Corpuscular Hgb Conc 28.6 g/dL (32-36); Mean Platelet Volume 10.5 fL (7.4-10.4); Platelet Count 262 K/uL (130-400); RDW Coefficient of Variation 21.4 % (11.5-14.5); RDW Standard Deviation 62.2 fL (36.4-46.3); Red Blood Count 3.77 M/uL (4.7-6.1); White Blood Count 11.94 K/uL (4.8-10.8)
[2019-10-22 08:45] LABS: BUN Creatinine Ratio 31.3 (10-20); Calcium 8.3 mg/dl (8.5-10.1); Creatinine Clr Calc Pharmacy 109.8 ml/min; Est GFR (African American) 103.4; Est GFR (Non-African American) 89.2; Magnesium 2.6 mg/dl (1.8-2.4)
--- NOTE | 2019-10-22 15:47 | Hospitalist Progress Note ---
Date of Service October 22, 2019 Assessment & Plan (1) Acute on chronic respiratory failure with hypoxia and hypercapnia: Patient with chronic respiratory failure at baseline - likely combination of COPD, obesity-hypoventilation syndrome, etc. Acute component 2nd COPD exacerbation + acute/chronic diastolic CHF. -- IMPROVING today, but slowly. - Continue Advair - Switched to prednisone 40mg daily on 10/19 - Continue Lasix 60mg IV BID -> Still with no XIOMY. Will continue this dosing. Supposedly net -1.9 L today. (2) COPD (chronic obstructive pulmonary disease): With exacerbation. Severe COPD at baseline. - Improving - Cont nebs, inhalers, O2, pulmonary toilet. (3) Acute on chronic diastolic (congestive) heart failure: Typically takes lasix 40mg PO BID at home. Follows with Dr Luna. - Cont daily weights, fluid restriction, etc. - Continue with Lasix 60 mg IV BID -> Cr stable. Wt at 137 kg today. Net -1.9 mL in 24 hours. (4) Anemia: 2nd severe Fe def. Ferritin level 16. Just had EGD a few weeks ago by Dr. Sandhu. Walker's was present but had no source of bleeding. - S/p Venofer 200mg x 3 doses - Will need outpatient colonoscopy and/or capsule study with Dr. Sandhu; stool is heme positive. 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 (6) CAD (coronary artery disease): No ischemic symptoms. Stable EKG. - Continue atenolol, statin. (7) Hypertension: BP is 110/65 today. - Continue all home medications (8) Permanent atrial fibrillation: Rates controlled. - Continue atenolol. - Continue Xarelto. (9) Sleep apnea, unspecified: - Continue BiPAP HS (10) DVT prophylaxis: Xarelto Admission and Anticipated Discharge Date Admission Date: October 13, 2019 Subjective Doing better today. Around 75%. Reports no fevers/chills, chest pain, abdominal pain, nausea, or vomiting. Physical Exam Constitutional: WD/WN, vitals as above Eyes: EOM intact bilaterally; no conjunctival abnormality ENMT: external ear and nose normal, oropharynx normal Neck: trachea midline, no thyromegaly normal visual inspection Respiratory: no respiratory distress Auscultation: + wheezes Cardiovascular: RRR, no murmur, no edema Gastrointestinal (Abdomen): Inspection/Auscultation: abdomen normal to inspection; abdomen not distended Musculoskeletal: no cyanosis or clubbing, extremities motor strength 5/5 Skin: no rashes, warm and dry Neurologic: moves all extremities and awake Psychiatric: Orientation: alert, oriented to person and cooperative Results & Data Results & Data ([facility]) Vital Signs (Past 12 Hours) Vital Signs Temp Pulse Resp BP Pulse Ox 10/22/19 15:29 36.4 C L 69 18 113/65 97 10/22/19 11:02 70 18 94 10/22/19 07:19 74 18 96 10/22/19 06:56 36.5 C 69 19 115/74 97 10/22/19 04:18 36.7 C 71 19 123/72 97 PG Care Time/CCT Total # of Minutes Spent Total Time Spent with Patient: Total time spent is greater than 50% in coordination of care (as documented) at patient's floor/unit and/or counseling patient: Coding Level of Care Code 90529 Subseq Hosp Care Lvl 2 Diagnoses Acute on chronic respiratory failure with hypoxia and hypercapnia J96.21; J96.22 COPD (chronic obstructive pulmonary disease) J44.1 COPD type: COPD with acute exacerbation Acute on chronic diastolic (congestive) heart failure I50.33 Anemia D64.9 Anemia type: unspecified type Walker esophagus K22.719 Walker's esophagus type: with dysplasia of unspecified degree CAD (coronary artery disease) I25.10 Coronary Disease-Associated Artery/Lesion type: [place] artery [place] vs. transplanted heart: [place] heart Associated angina: without angina Hypertension I10 Hypertension type: essential hypertension Permanent atrial fibrillation I48.2 Sleep apnea, unspecified G47.33 Sleep apnea type: obstructive DVT prophylaxis Z29.9 (1) COPD (chronic obstructive pulmonary disease) COPD type: COPD with acute exacerbation Qualified Code(s): J44.1 - Chronic obstructive pulmonary disease with (acute) exacerbation (2) Anemia Anemia type: unspecified type Qualified Code(s): D64.9 - Anemia, unspecified (3) Walker esophagus Walker's esophagus type: with dysplasia of unspecified degree Qualified Code(s): K22.719 - Walker's esophagus with dysplasia, unspecified (4) CAD (coronary artery disease) Coronary Disease-Associated Artery/Lesion type: [place] artery [place] vs. transplanted heart: [place] heart Associated angina: without angina Qualified Code(s): I25.10 - Atherosclerotic heart disease of [place] coronary artery without angina pectoris (5) Hypertension Hypertension type: essential hypertension Qualified Code(s): I10 - Essential (primary) hypertension (6) Sleep apnea, unspecified Sleep apnea type: obstructive Qualified Code(s): G47.33 - Obstructive sleep apnea (adult) (pediatric)
[2019-10-22] MEDS: DIGOXIN 0.125 MG TAB PO SCH (16:10)
[2019-10-22] MEDS: ATORVASTATIN 40 MG TAB PO SCH (20:35)
[2019-10-22] MEDS: FLUTICASONE PROPIONATE NA SPR 16 GM BTL SCH (20:37)
[2019-10-23] MEDS: ALBUT/IPRATROP 3MG/0.5MG NEB 3 ML VIAL INH SCH ×3 (03:16→11:04)
[2019-10-23 07:38] LABS: Hematocrit (blood only) 33.8 % (42-52); Hemoglobin 9.6 g/dL (14.0-18.0); Mean Corpuscular Hemoglobin 25.6 pg (25-34); Mean Corpuscular Hgb Conc 28.4 g/dL (32-36); Mean Corpuscular Volume 90.1 fL (80-100); Mean Platelet Volume 11.1 fL (7.4-10.4); Platelet Count 248 K/uL (130-400); RDW Coefficient of Variation 21.3 % (11.5-14.5); RDW Standard Deviation 65.2 fL (36.4-46.3); Red Blood Count 3.75 M/uL (4.7-6.1); White Blood Count 9.51 K/uL (4.8-10.8)
[2019-10-23 07:49] LABS: BUN Creatinine Ratio 31.1 (10-20); Calcium 8.2 mg/dl (8.5-10.1); Creatinine Clr Calc Pharmacy 118.4 ml/min; Est GFR (Non-African American) 93.2; Magnesium 2.4 mg/dl (1.8-2.4); Potassium 3.5 mmol/L (3.5-5.1)
[2019-10-23] MEDS: FLUTICASONE/VILANTEROL 100/25MCG 14 PUFFS/INHALER INH SCH (08:07)
[2019-10-23] MEDS: CALCIUM 600MG + VIT D 400 IU TAB PO SCH (08:08)
[2019-10-23] MEDS: FUROSEMIDE 60 MG in SYRINGE 0 ML IV SCH (08:08)
[2019-10-23] MEDS: MULTIVITAMIN TAB PO SCH (08:08)
[2019-10-23] MEDS: SENNA 8.6 MG TAB PO SCH (08:09)
[2019-10-23] MEDS: predniSONE 20 MG TAB PO SCH (08:09)
[2019-10-23] MEDS: NYSTATIN SUSP 500,000 U/5 ML UDC PO SCH ×2 (08:09→13:59)
[2019-10-23] MEDS: PANTOprazole 40 MG TAB PO SCH (08:09)
[2019-10-23] MEDS: CYANOCOBALAMIN 500 MCG TABLET (VITAMIN B-12) PO SCH (08:10)
[2019-10-23] MEDS: ATENOLOL 50 MG TABLET PO SCH (08:10)
[2019-10-23] MEDS: MONTELUKAST SODIUM 10 MG TABLET PO SCH (08:10)
[2019-10-23] MEDS: RIVAROXABAN 20 MG TAB PO SCH (08:10)
[2019-10-23] MEDS: POLYETHYLENE (MIRALAX) 17 GM PACK PO SCH (08:55)
--- NOTE | 2019-10-23 16:37 | Discharge Summary ---
Date of Service October 23, 2019 Admission HPI Per Admitting Provider 74yo male with h/o chronic hypoxic/hypercarbic respiratory failure on home O2 3 Liters continuously, SHIRA on CPAP, permanent a.fib on xarelto, Walker's esophagus, COPD, CAD, and HTN who presents from home with his due to progressive dyspnea. Patient is on BiPAP during my assessment and it is difficult to hear his history. Therefore his supplemented some of the historical details. Apparently in the last 2-3 days he has had worsening dyspnea particularly with exertion. He has had no cough, fever, chills, loss of taste or smell, loss of appetite (although he reports chronic poor appetite), nasal congestion, sore throat, headache, fatigue/malaise, abdominal pain, emesis, diarrhea, dysuria, or myalgias. He denies any worsening LE edema, weight gain or abdominal swelling. He reports using his CPAP each night and did not have orthopnea last night. Denies sick contacts. Denies travel outside of the local area. Had EGD on October [address] Sandhu showing Walker's esophagus. He underwent COVID-19 testing pre-operatively and this was negative. During the ER encounter he was placed on BiPAP, given IV lasix, given prednisone, and received treatment for mild hyperkalemia. He also received a duoneb. He reports "feeling the same" despite all of these measures. Principal Diagnosis COPD exacerbation Discharge Exam Constitutional WD/WN, vitals as above Eyes EOM intact bilaterally; no conjunctival abnormality ENMT external ear and nose normal, oropharynx normal Neck trachea midline, no thyromegaly normal visual inspection Respiratory no respiratory distress Auscultation: + wheezes Cardiovascular RRR, no murmur, no edema Gastrointestinal (Abdomen) Inspection/Auscultation: abdomen normal to inspection; abdomen not distended Musculoskeletal no cyanosis or clubbing, extremities motor strength 5/5 Skin no rashes, warm and dry Neurologic moves all extremities and awake Psychiatric Orientation: alert, oriented to person and cooperative Discharge Data Allergies Allergy/AdvReac Type Severity Reaction Status Date / Time adhesive Allergy Mild TAPE-RASH Verified 10/13/19 12:33 oxycodone Allergy Mild RASH Verified 10/13/19 12:33 diltiazem Allergy Unknown Verified 10/13/19 12:33 Consultations 10/13/19 15:08 ED Decision to Admit Stat Ordered Studies 10/15/19 15:00 US venous doppler UE LT Urgent Hospital Course (1) Acute on chronic respiratory failure with hypoxia and hypercapnia: Patient with chronic respiratory failure at baseline - likely combination of COPD, obesity-hypoventilation syndrome, etc. Acute component 2nd COPD exacerbation + acute/chronic diastolic CHF. -- IMPROVING today, but slowly. - Continue Advair - Switched to prednisone 40mg daily on 10/19 - 2 week taper of steroids. Will see pulmonology next week. - Continued Lasix 60mg IV BID while inpatient. Likely still has some volume to give. Instructed to not allow himself to gain weight. (2) COPD (chronic obstructive pulmonary disease): With exacerbation. Severe COPD at baseline. - Improving - Cont nebs, inhalers, O2, pulmonary toilet. (3) Acute on chronic diastolic (congestive) heart failure: Typically takes lasix 40mg PO BID at home. Follows with Dr Luna. - Cont daily weights, fluid restriction, etc. - Continued with Lasix 60 mg IV BID while inpatient. (4) Anemia: 2nd severe Fe def. Ferritin level 16. Just had EGD a few weeks ago by Dr. Sandhu. Walker's was present but had no source of bleeding. - S/p Venofer 200mg x 3 doses - Will need outpatient colonoscopy and/or capsule study with Dr. Sandhu; stool is heme positive. 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 (6) CAD (coronary artery disease): No ischemic symptoms. Stable EKG. - Continue atenolol, statin. (7) Hypertension: BP is 110/65 today. - Continue all home medications (8) Permanent atrial fibrillation: Rates controlled. - Continue atenolol. - Continue Xarelto. (9) Sleep apnea, unspecified: - Continue BiPAP HS (10) DVT prophylaxis: Xarelto Total Time Total Time Spent Total Time Spent (In Minutes): 35 Discharge Plan Discharge Items Patient Disposition: Home - Self-Care Reason For Visit: ACUTE/CHRONIC HYPERCARBIC,HYPOXIC RESP FAILURE,MANAGER STRATEGY & ACCOUNT Discharge Diagnosis: COPD exacerbation Activity: Resume your previous activity Non-emergency contact: Primary Care Provider and Interior Design Instructor Call non-emergency contact if: your symptoms worsen Follow-up/Referrals: Luis Manuel Mijares III, MD [Primary Care Provider] - 11/05/19 2:20 pm () Opal Estrella MD [Physician] - 10/30/19 11:00 am (You have an appointment with Dr. Estrella on October 29 at 11:00. If you can not keep this appointment please call [phone]) Diet: Heart Healthy Addtl Attending Provider Instructions: Mr. Anderson, You were admitted to the hospital with shortness of breath. We feel this was a combination of COPD exacerbation as well as extra fluid. We gave you steroids to help you reduce inflammation (irritation) in the lungs, and we would like you to follow up with your lung doctor, Dr. Estrella next week. Please take your steroid taper as follows: Prednisone 30 mg (3 tablets) by mouth once a day for 3 days, then Prednisone 20 mg (2 tablets) by mouth once a day for 3 days, then Prednisone 10 mg (1 tablet) by mouth once a day for 3 days, then stop. Please also watch your weight. On discharge, your weight is 285 lbs almost even. Check yourself on the scale at home to see what you weigh on your home scale. We would like you to stay at this weight and not gain weight. If you start to gain more than 2-3 lbs, please take an extra dose of Lasix in the afternoon around 3pm, and call your doctor to be seen to be sure you are not building up fluid in the legs and lungs. Finally, you had blood in your bowel movements. You should follow up with Dr. Sandhu to pursue a colonoscopy to be sure you do not have colon cancer or a source of bleeding. Pending Studies at Discharge: No Stand-Alone Forms: My [facility] [employer], Smoking Cessation Medications and DC Order Prescriptions: New prednisone 10 mg tablet 30 mg PO DAILY Qty: 18 RF: 0 Continued digoxin [Digox] 125 mcg (0.125 mg) tablet 125 mcg PO QAM Qty: 90 RF: 3 Xarelto 20 mg tablet 20 mg PO QAM Qty: 90 RF: 3 atorvastatin 80 mg tablet 80 mg PO HS Qty: 90 RF: 3 fluticasone propion-salmeterol [Advair Diskus] 250-50 mcg/dose blister with device 1 inh INHALATION BID Qty: 1 RF: 5 potassium chloride [Klor-Con 10] 10 mEq tablet extended release 20 meq PO BID Qty: 360 RF: 3 furosemide 40 mg tablet 80 mg PO QAM Qty: 90 RF: 3 montelukast 10 mg tablet 10 mg PO DAILY RF: 0 multivitamin Tablet 1 tab PO QAM RF: 0 omeprazole 40 mg Capsule,Delayed Release(Dr/Ec) 40 mg PO BID RF: 0 triamcinolone acetonide 0.1 % Cream 1 applic TOPICAL DAILY PRN (Reason: Rash) RF: 0 mometasone [Nasonex] 50 mcg/actuation [place],Non-Aerosol 2 spray INTRANASAL HS RF: 0 albuterol sulfate 90 mcg/actuation Hfa Aerosol Inhaler 1 puff INHALATION Q6H PRN (Reason: Shortness Of Breath) RF: 0 Calcium 600 + D(3) 600 mg calcium- 200 unit Capsule 1 cap PO BID RF: 0 kawjc-cc-0-zfl-mbt-lsknslm-ast [MegaRed [place]-3 Krill Oil] 1,000-230-60 mg Capsule 1 cap PO QAM RF: 0 ipratropium-albuterol 0.5 mg-3 mg(2.5 mg base)/3 mL solution for nebulization 3 ml INHALATION Q6H PRN (Reason: Wheezing) RF: 0 cyanocobalamin (vitamin B-12) [Vitamin B-12] 1,000 mcg Tablet Extended Release 1,000 mcg PO QAM RF: 0 atenolol 100 mg tablet 200 mg PO BID RF: 0 Discharge Orders: Discharge Order (Routine); Ordered 10/23/19 Ordered By: Edgard Crocker Admission Data Admit Date/Time: 10/13/19 16:33 Attending Provider: Edgard Crocker Admit Provider: Avila Abraham Primary Care Provider: Luis Manuel Mijares III Other Providers: Lucio Steel Other Interventions: Discharge Summary Assessment (RN) Last Done: 10/23/19 13:20 DC Date/Time DO NOT enter until pt leaves facility: 10/23/19 14:57 Coding Level of Care Code D/C Day Management >30 mins Diagnoses Acute on chronic respiratory failure with hypoxia and hypercapnia J96.21; J96.22 COPD (chronic obstructive pulmonary disease) J44.1 COPD type: COPD with acute exacerbation Acute on chronic diastolic (congestive) heart failure I50.33 Anemia D64.9 Anemia type: unspecified type Walker esophagus K22.719 Walker's esophagus type: with dysplasia of unspecified degree CAD (coronary artery disease) I25.10 Coronary Disease-Associated Artery/Lesion type: [place] artery [place] vs. transplanted heart: [place] heart Associated angina: without angina Hypertension I10 Hypertension type: essential hypertension Permanent atrial fibrillation I48.2 Sleep apnea, unspecified G47.33 Sleep apnea type: obstructive DVT prophylaxis Z29.9
== END 2019-10-23 14:57 | disposition home or self-care (01) | DRG 190 ==
LOC: ED 11:32 → 2S 16:33 → SUATTDRO 16:33 → 2S 17:31 → 2N 10-16 15:10

== ENCOUNTER 2020-02-02 11:56 | Inpatient (IN) ==
[2020-02-02] MEDS ORDERED: SODIUM CHLORIDE 0.9% 250 ML IV PRN ×3 (12:17→22:31)
--- NOTE | 2020-02-02 12:17 | Emergency Department Note ---
Impression & Plan Acute GI bleeding, Acute hyperkalemia, CHF (congestive heart failure), XIOMY (acute kidney injury), Acute electrocardiogram changes ED Provider Note NAME: ALINA SHAH AGE: 74 SEX: M : 1945 ARRIVES VIA: Walk-In INFORMANT: Patient ED PROVIDER(S): Johnathan Sanchez DO CHIEF COMPLAINT: Bright red blood per rectum HPI: Patient is a 74-year-old male who presents the ER for bright red blood per rectum along with dark tarry stools which is been present since this past . He notes going to the bathroom about every 2 hours. He does take blood thinners which include rivaroxaban. I believe he takes it for irregular heartbeat. He denies any headaches but does admit to shortness of breath which has been worsening over the past several weeks. He notes he is now short of breath with walking 20 feet. He does have a history of COPD and wears 4 L nasal cannula persistently. Denies any belly pain nausea vomiting or diarrhea. ROS: See above HPI for pertinent positives & negatives. A total of 10 systems reviewed and were otherwise negative. PAST MEDICAL HISTORY:See Below PAST SURGICAL HISTORY:See Below FAMILY HISTORY:See Below SOCIAL HISTORY:See Below HOME MEDICATIONS:See Below ALLERGIES:See Below VITALS:See Below PHYSICAL EXAMINATION: GENERAL: Sitting up in bed, alert, morbidly obese, disheveled, on 4 L nasal cannula EYE EXAM: normal conjunctiva. PERRL and EOM's grossly intact. OROPHARYNX: no exudate, no erythema, lips, buccal mucosa, and tongue normal and mucous membranes are moist NECK: supple, no nuchal rigidity, no adenopathy, non-tender LUNGS: Mild wheezing bilaterally. Normal chest wall mechanics HEART: no murmurs, S1 normal and S2 normal ABDOMEN: abdomen soft, non-tender, normo-active bowel sounds, no masses, no rebound or guarding. BACK: Back is symmetrical on inspection and there is no deformity, no midline tenderness, no CVA tenderness. SKIN: no rashes and no bruising UPPER EXTREMITIES: upper extremities are grossly normal. LOWER EXTREMITIES: Diffuse pitting edema tracking up to chest NEURO EXAM: Normal sensorium, cranial nerves II-XII grossly intact, normal speech, no gross weakness of arms, no gross weakness of legs. MEDICAL DECISION MAKING: Patient is a 74-year-old male who presents the ER for bright red blood and dark tarry stools which have been present since last week. Upon presentation he was found to be hypotensive with systolic pressures in the 70s. Heart rates in the 40s. IV was established blood work was obtained. Difficult stick blood work was eventually obtained. Results show a hemoglobin of 6.7. No significant leukocytosis. INR was 2.3 as he is taking rivaroxaban. BMP with a potassium of 7.3 and a creatinine of 3.4. Troponin was elevated 0.131. With the bradycardia and hypotension EKG shows Afib with normal intervals, normal QRS complexes, no ST elevation or depression, and no arrhythmias. And difficult access triple- lumen was placed emergently in the right groin. He was given IV bicarb x3 A, IV calcium gluconate, insulin and dextrose. He was not given any Kayexalate due to the GI bleed. After these doses heart rates came up into the 60s to 70s. Patient does have diffuse pitting edema. He was given a dose of Lasix in consultation with Dr. Estrella from the ICU after reviewing the case. Patient was also given Kcentra and IV vitamin K for the reversal of the GI bleed. He was typed and crossed and consented at bedside by myself and given 2 units of PRBCs. Discussed with the hospitalist and patient will be admitted for acute kidney injury with hyperkalemia, EKG changes and a GI bleed with symptomatic anemia. Triage Nursing notes reviewed. Prior medical records reviewed Vital Signs: reviewed and remarkable for hypotension Differential diagnosis: Differential diagnosis includes etiologies such as diverticulitis, diverticulosis, AVM, coagulopathy, colitis, inflammatory bowel disease, malignancy, Blanca-Butler tear, esophagitis, peptic ulcer disease, variceal bleed, gastritis, epistaxis, fissure, hemorrhoids, as well as others were entertained. ER treatment provided: See below Diagnostics interpreted by me: ECG: A. fib rate of 54 Normal axis No PVCs Low voltage ST depressions in the high lateral leads Cardiac Monitoring: An order was placed for continuous cardiac monitoring. The monitor shows a rate of 40 with Afib rhythm. Laboratory studies: As stated above and show below. Imaging studies: Chest x-ray shows pulmonary edema Consultation(s): D/w Dr. huang who accept the patient to the ICU Discussed with Dr. Steel from not any hospitalist ED COURSE: Procedures: PROCEDURE NOTE - Central Line Insertion - Ultrasound Guided PRIOR TO PROCEDURE: Consent: Discussion was held with the patient concerning central line. The risks and benefits were explained with possible risks to include bleeding, pain, pneumothorax, hemothorax, pulmonary contusion, pulmonary laceration, and infection. The patient freely consented. The patient was evaluated prior to the procedure. The patient was identified and the procedure verified as central line insertion. A Time Out was held and the following information confirmed. Verify Correct Patient: Yes Verify Correct Site: Yes Availability of Necessary Equipment: Yes PROCEDURE NOTE: Procedure: Central Line Inserting Clinician: Johnathan Sanchez DO. Guide-wire was removed, examined and is intact Complication/Corrective Action: Two sticks Estimated Blood Loss: 10 mls US guided line placement: Yes I have reviewed and educated the patient and or family regarding the benefits and risks of central line insertion, and I have reviewed the potential complications including infection - yes CENTRAL LINE BUNDLE: Skin Prep: Chlorhexidine/alcohol Barriers Used: Mask: yes Sterile gown: yes Large sterile drape: yes Cap: yes Sterile gloves: yes Insertion Status: new site Placement Conditions: Emergent 2/2 hypotension Site: Femoral Side: r Number of lumen(s): 3 Length of catheter inserted into patient: 20 centimeters Anesthesia: local Number of Needle Passes: 2 Radiological confirmation: No I performed the procedure. Critical Care: I have personally spent 75 minutes of critical care time in the direct management of this patient. This includes bedside care, interpretation of diagnostic studies, and testing, discussion with consultants, patient, and family members, and other required patient management activities. This 75 minutes is in excess of all separately billable procedures. Past Med/Surg History Medical History (Updated 02/02/20 @ 16:12 by Johnathan Sanchez DO) Anemia Atrial fibrillation dx 4-5 years ago --reason for xarelto--follows with Dr. Cheryl Walker esophagus Chronic obstructive pulmonary disease Denies any h/o hospitalization or intubation. Used advair this am. Has not used albuterol for a few months. Chronic respiratory failure with hypoxia and hypercapnia Difficulty swallowing GERD (gastroesophageal reflux disease) History of heart artery stent x1 2008 @ [facility] by Dr. Luna History of prostate cancer Hyperlipidemia Hypertension Morbid obesity with BMI of 45.0-49.9, adult On anticoagulant therapy On home oxygen therapy 2-3L N/C at all times Sleep apnea CPAP with 2-3L Surgical History History of bilateral cataract extraction History of cardiac cath 2008 @ [facility] - HAD STENT X1 History of colonoscopy History of esophagogastroduodenoscopy (EGD) EUS 03/2019 [facility] EUS 11/21/18 Glidescope 4 with grade 1 view History of lumbar surgery hardware in place History of prostate biopsy malignant History of prostatectomy History of right shoulder replacement History of total left hip replacement History of total right hip replacement History of umbilical hernia repair Hx of esophagogastroduodenoscopy Hx of nasal septoplasty Family History Uncle Prostate cancer Mother Septicemia Father COPD (chronic obstructive pulmonary disease) Pancreatic cancer Other No family history of adverse response to anesthesia Social History Smoking Status: Former smoker Tobacco Type: Cigarettes Age Started Using Tobacco: 17; Age Quit Using Tobacco: 54; packs per day: 1; Years Smoked: 37; Second Hand Exposure: No; Hx Alcohol Use: Yes Alcohol type: hard liquor Alcohol Intake Frequency Comment: 2-3 daily Hx Substance Use: No Preferred Language: Lao Communication Ability: Effective Hearing Ability: Use of Hearing Aid Medical Scribe Required: No Beliefs That Will Affect Care: None marital status: Current Living Situation: Spouse Current Living Situation Comment: has step-children 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 Other Information That Helps Us Care for You: No Feels Safe at Home: Yes Safety Concerns: Feels Safe At This Time Seatbelt Use: always Sunscreen Use: No Assistive Devices: Cane, CPAP, Oxygen - Continuous and Walker Allergies Allergies Allergy/AdvReac Type Severity Reaction Status Date / Time adhesive Allergy Mild TAPE-RASH Verified 02/02/20 13:08 oxycodone Allergy Mild RASH Verified 02/02/20 13:08 diltiazem Allergy Unknown Verified 02/02/20 13:08 Home Meds Home Medications Medication Instructions Recorded Confirmed Calcium 600 + D(3) 1 cap PO BID 08/21/18 02/02/20 [id number]-[id number] 1 cap PO QAM 08/21/18 02/02/20 [MegaRed [place]-3 Krill Oil] mometasone [Nasonex] 2 spray INTRANASAL HS 08/21/18 02/02/20 multivitamin 1 tab PO QAM 08/21/18 02/02/20 triamcinolone acetonide 1 applic TOPICAL DAILY PRN 08/21/18 02/02/20 cyanocobalamin (vitamin B-12) 1,000 mcg PO QAM 11/05/18 02/02/20 [Vitamin B-12] [id number] 1 inh INH QAM 02/02/20 02/02/20 [Trelegy Ellipta] furosemide 40 mg PO BID 02/02/20 02/02/20 metolazone 2.5 mg PO FR 02/02/20 02/02/20 montelukast 10 mg PO QAM 02/02/20 02/02/20 Previous Rx's Medication Instructions Recorded digoxin 125 mcg (0.125 mg) tablet 125 mcg PO QAM #90 tab 07/27/19 rivaroxaban 20 mg tablet 20 mg PO QAM #90 tab 07/27/19 atorvastatin 80 mg tablet 80 mg PO HS #90 tab 09/11/19 potassium chloride 10 mEq 20 meq PO BID #360 tab 10/01/19 tablet,extended release atenolol 100 mg tablet 200 mg PO BID #360 tab 11/04/19 albuterol sulfate 90 mcg/actuation 1 puff INHALATION Q6H PRN #18 g 11/18/19 aerosol inhaler ipratropium 0.5 mg-albuterol 3 mg 3 ml INHALATION Q6H PRN #180 ml 11/18/19 (2.5 mg base)/3 mL nebulization soln omeprazole 40 mg capsule,delayed 40 mg PO BID #180 cap 12/15/19 release Results & Data (ED) Vital Signs Vital Signs - 24 hr 02/02/20 11:57 02/02/20 12:18 02/02/20 12:20 Temperature 36.3 C L Temperature Source Oral Pulse Rate 57 L 47 L 54 L Pulse Rate from SpO2 Sensor Respiratory Rate 24 24 21 Respiratory Effort / Characteristics Non-Labored Spontaneous Respiratory Depth Normal Respiratory Pattern Regular Blood Pressure 73/43 L 115/44 L Blood Pressure [Left Arm] Blood Pressure Mean 53 62 Blood Pressure Mean [Left Arm] Pulse Oximetry 93 Oxygen Delivery Method Nasal Cannula Oxygen Flow Rate 4 Sepsis Recent Fever Within 48 Hours No Sepsis New/Unexplained Change in Mental Status N/A Sepsis Action Taken by Nursing No Action Required 02/02/20 12:21 02/02/20 12:30 02/02/20 12:36 Temperature Temperature Source Pulse Rate 44 L Pulse Rate from SpO2 Sensor Respiratory Rate 22 15 Respiratory Effort / Characteristics Respiratory Depth Respiratory Pattern Blood Pressure 105/41 L Blood Pressure [Left Arm] 115/44 L Blood Pressure Mean 59 Blood Pressure Mean [Left Arm] 67 Pulse Oximetry 98 Oxygen Delivery Method Nasal Cannula Oxygen Flow Rate 2 Sepsis Recent Fever Within 48 Hours Sepsis New/Unexplained Change in Mental Status Sepsis Action Taken by Nursing 02/02/20 12:45 02/02/20 12:46 02/02/20 13:00 Temperature Temperature Source Pulse Rate 47 L 49 L 52 L Pulse Rate from SpO2 Sensor 48 L 47 L 44 L Respiratory Rate 12 18 18 Respiratory Effort / Characteristics Respiratory Depth Respiratory Pattern Blood Pressure 100/36 L Blood Pressure [Left Arm] Blood Pressure Mean 52 Blood Pressure Mean [Left Arm] Pulse Oximetry 98 96 94 Oxygen Delivery Method Oxygen Flow Rate 4 4 Sepsis Recent Fever Within 48 Hours Sepsis New/Unexplained Change in Mental Status Sepsis Action Taken by Nursing 02/02/20 13:15 02/02/20 13:17 02/02/20 13:30 Temperature Temperature Source Pulse Rate 48 L 48 L Pulse Rate from SpO2 Sensor Respiratory Rate 19 20 31 H Respiratory Effort / Characteristics Respiratory Depth Respiratory Pattern Blood Pressure 115/31 L Blood Pressure [Left Arm] Blood Pressure Mean 47 Blood Pressure Mean [Left Arm] Pulse Oximetry Oxygen Delivery Method Oxygen Flow Rate 4 4 4 Sepsis Recent Fever Within 48 Hours Sepsis New/Unexplained Change in Mental Status Sepsis Action Taken by Nursing 02/02/20 13:31 02/02/20 13:45 02/02/20 13:46 Temperature Temperature Source Pulse Rate Pulse Rate from SpO2 Sensor Respiratory Rate 31 H 21 16 Respiratory Effort / Characteristics Respiratory Depth Respiratory Pattern Blood Pressure 111/46 L 93/41 L Blood Pressure [Left Arm] Blood Pressure Mean 61 66 Blood Pressure Mean [Left Arm] Pulse Oximetry Oxygen Delivery Method Oxygen Flow Rate 4 Sepsis Recent Fever Within 48 Hours Sepsis New/Unexplained Change in Mental Status Sepsis Action Taken by Nursing 02/02/20 13:59 02/02/20 14:00 02/02/20 14:06 Temperature 36.3 C L Temperature Source Oral Pulse Rate 66 47 L 68 Pulse Rate from SpO2 Sensor 66 73 Respiratory Rate 18 21 17 Respiratory Effort / Characteristics Respiratory Depth Respiratory Pattern Blood Pressure 108/42 L 108/42 L Blood Pressure [Left Arm] Blood Pressure Mean 64 74 Blood Pressure Mean [Left Arm] Pulse Oximetry 100 99 96 Oxygen Delivery Method Oxygen Flow Rate 4 4 4 Sepsis Recent Fever Within 48 Hours Sepsis New/Unexplained Change in Mental Status Sepsis Action Taken by Nursing 02/02/20 14:15 02/02/20 14:16 Temperature Temperature Source Pulse Rate 67 76 Pulse Rate from SpO2 Sensor 70 78 Respiratory Rate 17 20 Respiratory Effort / Characteristics Respiratory Depth Respiratory Pattern Blood Pressure 119/60 Blood Pressure [Left Arm] Blood Pressure Mean 83 Blood Pressure Mean [Left Arm] Pulse Oximetry 100 100 Oxygen Delivery Method Oxygen Flow Rate 4 4 Sepsis Recent Fever Within 48 Hours Sepsis New/Unexplained Change in Mental Status Sepsis Action Taken by Nursing Laboratory Data Result diagrams: 02/02/20 12:22 02/02/20 12:22 Lab Results 02/02/20 02/02/20 02/02/20 Range/Units 12:22 12:22 12:22 WBC 8.92 (4.8-10.8) K/uL RBC 3.03 L (4.7-6.1) M/uL Hgb 6.7 L* (14.0-18.0) g/dL POC Hgb (14.0-18.0) g/dl Hct 25.9 L (42-52) % POC Hct (42-52) % MCV 85.5 (80-100) fL MCH 22.1 L (25-34) pg MCHC 25.9 L (32-36) g/dL RDW Std Deviation 63.4 H (36.4-46.3) fL RDW Coeff of Ezekiel 20.4 H (11.5-14.5) % Plt Count 357 (130-400) K/uL MPV 11.3 H (7.4-10.4) fL Immature Gran % (Auto) 0.1 % Neut % (Auto) 74.6 % Lymph % (Auto) 9.0 % Mckenzie % (Auto) 15.5 % Eos % (Auto) 0.7 % Baso % (Auto) 0.1 % Neut # (Auto) 6.66 H (1.4-6.5) K/uL Lymph # (Auto) 0.80 L (1.2-3.4) K/uL Mckenzie # (Auto) 1.38 H (0.11-0.59) K/uL Eos # (Auto) 0.06 (0-0.5) K/uL Baso # (Auto) 0.01 (0-0.2) K/uL Immature Gran # (Auto) 0.01 (0.00-0.02) K/uL Absolute Nucleated RBC 0.08 H (0-0) K/uL Nucleated RBC % (auto) 0.9 % Hypochromasia Present Ovalocytes 1+ PT 23.4 H (9.0-12.0) Seconds INR 2.3 H (0.9-1.1) APTT 34.3 H (21.0-31.0) Seconds PTT Ratio 1.2 POC Sodium (135-144) mmol/L Sodium 137 (136-145) mmol/L POC Potassium (3.3-5.0) mmol/L Potassium 7.7 H* (3.5-5.1) mmol/L POC Chloride (101-112) mmol/L Chloride 104 (98-107) mmol/L Carbon Dioxide 27 (21-32) mmol/L POC Total CO2 (24-31) mmol/L Anion Gap 6.0 (3-11) POC Anion Gap (16-25) mmol/L POC BUN (7-18) mg/dl BUN 77 H (7-18) mg/dl Creatinine 3.55 H (0.6-1.4) mg/dl POC Creatinine (0.6-1.3) mg/dl Est Cr Clr Drug Dosing Not Reportable Est GFR ( Amer) 18.8 Est GFR (Non-Af Amer) 16.2 BUN/Creatinine Ratio 21.6 H (10-20) Glucose 106 H (70-99) mg/dl POC Glucose (other) (70-99) mg/dl Calcium 8.8 (8.5-10.1) mg/dl POC Ioniz Calcium Magaly (1.12-1.32) mmol/l Total Bilirubin 0.8 (0.2-1) mg/dl AST 38 H (15-37) U/L ALT 20 (12-78) U/L Alkaline Phosphatase 57 (45-117) U/L Troponin I 0.131 H* (0-0.045) ng/ml Total Protein 7.0 (6.4-8.2) gm/dl Albumin 3.1 L (3.4-5.0) gm/dl Globulin 3.9 (2.5-4.0) gm/dl Albumin/Globulin Ratio 0.8 L (0.9-2) Blood Type Antibody Screen Crossmatch 02/02/20 02/02/20 Range/Units 12:30 13:45 WBC (4.8-10.8) K/uL RBC (4.7-6.1) M/uL Hgb (14.0-18.0) g/dL POC Hgb 7.1 L (14.0-18.0) g/dl Hct (42-52) % POC Hct 21 L (42-52) % MCV (80-100) fL MCH (25-34) pg MCHC (32-36) g/dL RDW Std Deviation (36.4-46.3) fL RDW Coeff of Ezekiel (11.5-14.5) % Plt Count (130-400) K/uL MPV (7.4-10.4) fL Immature Gran % (Auto) % Neut % (Auto) % Lymph % (Auto) % Mckenzie % (Auto) % Eos % (Auto) % Baso % (Auto) % Neut # (Auto) (1.4-6.5) K/uL Lymph # (Auto) (1.2-3.4) K/uL Mckenzie # (Auto) (0.11-0.59) K/uL Eos # (Auto) (0-0.5) K/uL Baso # (Auto) (0-0.2) K/uL Immature Gran # (Auto) (0.00-0.02) K/uL Absolute Nucleated RBC (0-0) K/uL Nucleated RBC % (auto) % Hypochromasia Ovalocytes PT (9.0-12.0) Seconds INR (0.9-1.1) APTT (21.0-31.0) Seconds PTT Ratio POC Sodium 139 (135-144) mmol/L Sodium (136-145) mmol/L POC Potassium 7.3 H* (3.3-5.0) mmol/L Potassium (3.5-5.1) mmol/L POC Chloride 99 L (101-112) mmol/L Chloride (98-107) mmol/L Carbon Dioxide (21-32) mmol/L POC Total CO2 32 H (24-31) mmol/L Anion Gap (3-11) POC Anion Gap 17.0 (16-25) mmol/L POC BUN 82 H (7-18) mg/dl BUN (7-18) mg/dl Creatinine (0.6-1.4) mg/dl POC Creatinine 3.4 H (0.6-1.3) mg/dl Est Cr Clr Drug Dosing Est GFR ( Amer) Est GFR (Non-Af Amer) BUN/Creatinine Ratio (10-20) Glucose (70-99) mg/dl POC Glucose (other) 107 H (70-99) mg/dl Calcium (8.5-10.1) mg/dl POC Ioniz Calcium Magaly 1.05 L (1.12-1.32) mmol/l Total Bilirubin (0.2-1) mg/dl AST (15-37) U/L ALT (12-78) U/L Alkaline Phosphatase (45-117) U/L Troponin I (0-0.045) ng/ml Total Protein (6.4-8.2) gm/dl Albumin (3.4-5.0) gm/dl Globulin (2.5-4.0) gm/dl Albumin/Globulin Ratio (0.9-2) Blood Type A Positive Antibody Screen NEGATIVE Crossmatch See Detail Administered Medications Prothrombin Complex Concent ( (Human) 2,000 units/ Syringe) 80 mls @ 10 mls/min IV TODAY@1315 [facility]; Protocol Stop: 02/02/20 18:00 Last Admin: 02/02/20 13:23 Dose: 10 mls/min Documented by: [id number] Discontinued Medications Calcium Gluconate (Calcium Gluconate 10% 10 Ml Vial) 1,000 mg IV NOW STA Stop: 02/02/20 13:05 Last Admin: 02/02/20 14:15 Dose: 1,000 mg Documented by: [id number] Dextrose (Dextrose 50% 50 Ml Syringe) 50 ml IV NOW STA Stop: 02/02/20 13:07 Last Admin: 02/02/20 13:47 Dose: 50 ml Documented by: [id number] Furosemide (Furosemide 40 Mg/4 Ml Vial) 60 mg IV NOW STA Stop: 02/02/20 14:00 Last Admin: 02/02/20 14:39 Dose: 60 mg Documented by: [id number] Phytonadione 10 mg/ Sodium (Chloride) 51 mls @ 102 mls/hr IV NOW ONE Stop: 02/02/20 13:44 Last Infusion: 02/02/20 16:06 Dose: 0 mls/hr Documented by: [id number] Admin: 02/02/20 13:53 Dose: 102 mls/hr Documented by: [id number] Sodium Chloride (Nss 1000ml) 1,000 mls @ 999 mls/hr IV .Q1H1M ONE Stop: 02/02/20 14:48 Last Infusion: 02/02/20 16:08 Dose: 0 mls/hr Documented by: [id number] Admin: 02/02/20 14:18 Dose: 999 mls/hr Documented by: [id number] Glucagon 5 mg/ Syringe 5 mls @ 1 mls/min IV ONE ONE Stop: 02/02/20 15:39 Last Admin: 02/02/20 15:59 Dose: 1 mls/min Documented by: [id number] Insulin Human Regular (Novolin-R Insulin Per Unit Charge) 10 units IV NOW STA Stop: 02/02/20 13:07 Last Admin: 02/02/20 13:13 Dose: 10 units Documented by: [id number] Cosigned by: [id number] Sodium Bicarbonate (Sodium Bicarb 8.4% Inj 50 Meq/50 Ml Syr) 150 meq IV NOW STA Stop: 02/02/20 13:05 Last Admin: 02/02/20 13:13 Dose: 150 meq Documented by: [id number] Discharge Plan Visit Data Chief Complaint: GI Bleed Stated Complaint: REF BY ,BLOOD IN STOOL ED Provider: Johnathan Sanchez Discharge Problem: Acute GI bleeding, Acute hyperkalemia, CHF (congestive heart failure), XIOMY (acute kidney injury), Acute electrocardiogram changes Patient Disposition: Admitted As Inpatient Discharge Instructions Interventions: ED Discharge Assessment Last Done: 02/02/20 14:47
[2020-02-02 12:51] LABS: INR 2.3 (0.9-1.1); Partial Thromboplastin Ratio 1.2; Partial Thromboplastin Time 34.3 Seconds (21.0-31.0); Prothrombin Time 23.4 Seconds (9.0-12.0)
--- NOTE | 2020-02-02 12:53 | Electrocardiogram Report ---
Test Reason : Blood Pressure : / mmHG Vent. Rate : 054 BPM Atrial Rate : 032 BPM P-R Int : 000 ms QRS Dur : 108 ms QT Int : 380 ms P-R-T Axes : 000 049 020 degrees QTc Int : 360 ms Atrial fibrillation with slow ventricular response Low voltage QRS Possible Anterolateral infarct (cited on or before 02-FEB-2020) Abnormal ECG Confirmed by Miguelangel Bauer ([id number]) on 02/02/2020 12:53:17 PM Referred By: Confirmed By:Bruce Bauer
[2020-02-02 13:01] LABS: Hematocrit (blood only) 25.9 % (42-52); Hemoglobin 6.7 g/dL (14.0-18.0); Mean Corpuscular Hemoglobin 22.1 pg (25-34); Mean Corpuscular Hgb Conc 25.9 g/dL (32-36); Mean Corpuscular Volume 85.5 fL (80-100); Mean Platelet Volume 11.3 fL (7.4-10.4); Nucleated RBC # (auto) 0.08 K/uL (0-0); Nucleated RBC % (auto) 0.9 %; Platelet Count 357 K/uL (130-400); RDW Coefficient of Variation 20.4 % (11.5-14.5); RDW Standard Deviation 63.4 fL (36.4-46.3); Red Blood Count 3.03 M/uL (4.7-6.1); White Blood Count 8.92 K/uL (4.8-10.8)
[2020-02-02] MEDS ORDERED: SODIUM BICARB 8.4% INJ 50 MEQ/50 ML SYR IV STA (13:04)
[2020-02-02] MEDS ORDERED: CALCIUM GLUCONATE 10% 10 ML VIAL IV STA (13:04)
[2020-02-02 13:06] LABS: Alanine Aminotransferase 20 U/L (12-78); Albumin Globulin Ratio 0.8 (0.9-2); Albumin Level 3.1 gm/dl (3.4-5.0); Alkaline Phosphatase 57 U/L (45-117); Aspartate Aminotransferase 38 U/L (15-37); BUN Creatinine Ratio 21.6 (10-20); Bilirubin,Total 0.8 mg/dl (0.2-1); Blood Urea Nitrogen 77 mg/dl (7-18); Calcium 8.8 mg/dl (8.5-10.1); Carbon Dioxide 27 mmol/L (21-32); Chloride 104 mmol/L (98-107); Est GFR (African American) 18.8; Est GFR (Non-African American) 16.2; Globulin 3.9 gm/dl (2.5-4.0); Glucose 106 mg/dl (70-99); Potassium 7.7 mmol/L (3.5-5.1); Sodium 137 mmol/L (136-145); Troponin I 0.131 ng/ml (0-0.045)
[2020-02-02] MEDS ORDERED: DEXTROSE 50% 50 ML SYRINGE IV STA (13:06)
[2020-02-02] MEDS ORDERED: NovoLIN-R INSULIN PER UNIT CHARGE IV STA (13:06)
[2020-02-02 13:08] LABS: Basophils # (auto) 0.01 K/uL (0-0.2); Basophils % (auto) 0.1 %; Eosinophils # (auto) 0.06 K/uL (0-0.5); Eosinophils % (auto) 0.7 %; Hypochromasia Present; Immature Granulocytes # (auto) 0.01 K/uL (0.00-0.02); Immature Granulocytes % (auto) 0.1 %; Monocytes # (auto) 1.38 K/uL (0.11-0.59); Monocytes % (auto) 15.5 %; Neutrophils # (auto) 6.66 K/uL (1.4-6.5); Neutrophils % (auto) 74.6 %; Ovalocytes 1+
[2020-02-02] MEDS ORDERED: PHYTONADIONE 10 MG in SODIUM CHLORIDE 0.9% 50 ML IV ONE (13:15)
[2020-02-02] MEDS ORDERED: PROTHROMBIN COMP CONC- KCENTRA 2,000 UNITS in SYRINGE 0 ML IV SCH (13:15)
[2020-02-02] MEDS ORDERED: SODIUM CHLORIDE 0.9% 1000ML 1,000 ML IV ONE (13:48)
[2020-02-02 13:59] LABS: iSTAT Creatinine 3.4 mg/dl (0.6-1.3); iSTAT Hemoglobin 7.1 g/dl (14.0-18.0); iSTAT Ionized Calcium 1.05 mmol/l (1.12-1.32); iSTAT Potassium 7.3 mmol/L (3.3-5.0)
[2020-02-02] MEDS ORDERED: FUROSEMIDE 40 MG/4 ML VIAL IV STA (13:59)
[2020-02-02] MEDS ORDERED: ICU PROTOCOL FOR HYPERGLYCEMIA PRN (14:24)
--- NOTE | 2020-02-02 14:43 | XRay Report ---
XR chest 1V portable HISTORY: Shortness of breath. COMPARISON: Chest 12/23/2019. FINDINGS: The heart remains enlarged. There is a right shoulder prosthesis. No pneumothorax. Progress rahat perihilar interstitial and vascular thickening with hazy airspace opacities. Small bilateral pleu ral effusions have also progressed. Left basilar densities are noted. IMPRESSION: 1. Interval progression of the moderate pulmonary edema and small bilateral pleural effusions. 2. Left basilar densities have also progressed. This favors atelectasis from the pleural effusion. A pneumonia could also have a similar appearance. ACT 112: Negative or not required by law. Electronically signed by: Sudeep Wolff M.D. 02/02/2020 2:41 PM
[2020-02-02] MEDS ORDERED: GLUCAGON 5 MG in SYRINGE 0 ML IV ONE (15:35)
--- NOTE | 2020-02-02 15:35 | Critical Care Consultation ---
Date of Consultation February 02, 2020 Assessment & Plan (1) Admitted to intensive care unit: Reason Critically Ill: Mr. Anderson is a 74 yo gentleman who was admitted with a GI bleed, found to have XIOMY with hyperkalemia on presentation. He was sent to the ICU for close cardiac monitoring in the setting of significant electrolyte derangements. Neuro: [facility] ICU: Negative - no issues Cardiac: * Atrial Fibrillation - EKG showing Afib without RVR - holding Rivaroxaban in the setting of acute GI bleed - INR 2.3 on admission - rate controlled with atenolol 200mg, BID at home * Hx CHF - CXR on admission showing bilateral pleural effusions and moderate pulmonary vascular congestion - patient appears to be volume overloaded on exam - home medication regimen includes digoxin, atenolol, and furosemide 40mg, PO BID - given 60mg IV lasix in ED; additional 60mg ordered - digoxin level elevated to 2.9 - most recent ECHO 07/2018 showing normal biventricular systolic function, mild concentric LVH, no valvular abnormalities * Hx CAD - on atorvastatin 80 * Elevated troponin - trop at 0.131 on admission - EKG without ST segment changes - likely secondary to demand ischemia in the setting of anemia - without chest pain on exam - trend trop Respiratory: * COPD - baseline oxygen requirement of 4L via NC - currently satting 95% on 10 L via NC - continue home medication regimen: montelukast, Trelegy Ellipta and ipratropium/albuterol inhaler * Hx SHIRA - patient compliant with CPAP at home GI: * GI bleed - Hgb 6.7 on admission, fecal occult blood + - patient reported 6 day history of BRBPR and black, tarry stools on admission - patient with extensive work over past year without identified source (see HPI) - K-centra and vit K administered in the event of procedure - NPO in the event of procedure - GI consulted RENAL/LYTES: * Acute Kidney Injury - Cr 3.55, BUN 77, ratio 21.6 - given 1 L of normal saline in ED - suspect secondary to hypoperfusion (given hypotension on admission) - nephrology consulted * Hyperkalemia - K 7.7 on admission; K down to 6.6 - EKG with mildly prolonged QRS interval, but with normal CA interval, no peaked T waves - given 60mg IV lasix in ED; additional 60mg ordered now - given 10 units of Novolin Insulin; 5mg glucagon ordered - given 150 meq Na-Bicarb - given 1 g Ca+ gluconate for cardiac membrane stabilization - cayexalate contraindicated in setting of acute GI bleed; Valtasa ordered - nephrology consulted as above -CK level ordered : - Raphael in place -strict Is/Os ENDO: - no history of diabetes or thyroid disease HEME: * Anemia - Hgb 6.7 on admission - MCV 85, normocytic - known history of iron deficiency - fecal occult stool + and report of BRBPR suggestive of blood loss - s/p 1 unit of pRBCs - repeat H+H ID: - WBC normal on admission - procal not elevated - Nasal MRSA pending LINES/IV ACCESS: R femoral triple lumen central catheter, PIV (22 gauge in R wrist), raphael CODE STATUS: Full DVT PROPHYLAXIS: bilateral SCDs, chemical prophylaxis contraindicated in se tting of acute GI bleed Thank you for allowing us to participate in the care of this patient. Please refer to my attending physician's documentation for any further recommendations. Supervising Physician Co-Signing Physician Notes Dr Grant was the resident-physician during care of patient. I separately evaluated patient for blancas portions of the history and the exam. I was present during the critical portion of medical decision making, and I discussed the case with the resident. I generally agree with the findings and plan except for any additions/exceptions noted. Patient seen and examined at bedside no acute distress at the time of examination. He is a morbidly obese brittney who was on Xarelto and has taken the medication even today along with hypertension medications. He has been having bloody bowel movements since almost a week. He had decreased appetite as well. He came in with acute renal failure along with hyperkalemia and hemoglobin of 6.7 He got 1 unit of PRBC. 60 of Lasix in the ED. His potassium went down from 7.7 to 6.6. Patient got the hyperkalemia cocktail which includes calcium gluconate, insulin, DuoNeb's, bicarb. Nephrology is on board. He also got phosphate binder. If there is no improvement in the potassium when the renal function does not improve dialysis up is a possibility. Patient is agreeable to it if need be. GI has been consulted for the GI bleed. Protonix twice daily. Patient got K Centra as well as vitamin K in the ED. For possible EGD tomorrow Patient digoxin level is 2.9 he has been taking digoxin on a daily basis and took it in the morning as well. EKG shows A. fib with low voltage QRS. There is no widening of the QRS but patient has been bradycardic. It could be from atenolol and it could be from digoxin toxicity as well. After improvement in the potassium if there is no improvement in the bradycardia, Digibind will be considered. Patient was given glucagon for his bradycardia to reverse beta-surjit. SHIRA continue with CPAP Case was discussed on the phone with nephrology as well as GI. I have personally spent 61 minutes of critical care time in the direct management of this patient. This is a life/limb threatening event. This includes time spent evaluating patient, direct bedside care, chart review, placing orders, interpretation of diagnostic studies, discussion with consultants, patient, and/or family members regarding treatment decisions, as well as other required patient management activities. This time is exclusive of all separately billable procedures, and teaching time and separate from and in addition to any other critical care service time. History of Present Illness Reason for Consultation: Mr. Anderson is a 74 yo gentleman with a PMHx of atrial fibrillation, on anticoagulation with Rivaroxaban, who presented to [facility] today with bright red blood per rectum and black, tarry stools for past 6 days. He has a history of iron deficiency for which he takes ferrous sulfate supplements. He had a colonoscopy in 07/[address] Sandhu at which time 7 polyps were removed ; other findings included diverticulosis + several non-bleeding internal hemorrhoids. The pathology reported of the 7 polyps returned as tubular adenomas. He also had an upper endoscopy 07/2018, which showed no evidence of a bleeding source. He had a wireless capsule endoscopy which identified diffuse LAD in 09/2018; EUS and FNA analysis returned benign in fall. He had a repeat abdominal CT scan in 05/2019, which showed no evidence of LAD. Upper endoscopy was repeated in 10/18 which showed a submucosal gastric mass; biopsy returned as normal gastric mucosa. He was experiencing SOB in the days to weeks preceding admission. He does have underlying COPD for which he has a baseline oxygen requirement of 4L O2 via NC. He also sleeps with a CPAP at night. He does wear it every night. In the emergency department, his HR was in 40-50s and his blood pressers were soft, both of which improved with 1 liter bolus of normal saline. His hemoglobin was found to be low at 6.7. Fecal occult blood was positive. He was typed and crossed and transfused 1 unit of pRBCs. He was administered 10 units of vitamin K. Creatinine was 3.55 and potassium was elevated to 7.7. He was administered 60mg of IV lasix, 10 units of Novolin and and 150meQ of sodium bicarbonate. He was also given Ca2+ gluconate. Attending Physician: Lucio Steel Allergies Allergy/AdvReac Type Severity Reaction Status Date / Time adhesive Allergy Mild TAPE-RASH Verified 02/02/20 13:08 oxycodone Allergy Mild RASH Verified 02/02/20 13:08 diltiazem Allergy Unknown Verified 02/02/20 13:08 Home Medications Home Medications Medication Instructions Recorded Confirmed Type Calcium 600 + D(3) 1 cap PO BID 08/21/18 02/02/20 History lrsgn-yr-[id number]-nlo-[id number]-ast 1 cap PO QAM 08/21/18 02/02/20 History [MegaRed [place]-3 Krill Oil] mometasone [Nasonex] 2 spray INTRANASAL HS 08/21/18 02/02/20 History multivitamin 1 tab PO QAM 08/21/18 02/02/20 History triamcinolone acetonide 1 applic TOPICAL DAILY PRN 08/21/18 02/02/20 History cyanocobalamin (vitamin B-12) 1,000 mcg PO QAM 11/05/18 02/02/20 History [Vitamin B-12] digoxin 125 mcg (0.125 mg) tablet 125 mcg PO QAM #90 tab 07/27/19 02/02/20 Rx rivaroxaban 20 mg tablet 20 mg PO QAM #90 tab 07/27/19 02/02/20 Rx atorvastatin 80 mg tablet 80 mg PO HS #90 tab 09/11/19 02/02/20 Rx potassium chloride 10 mEq 20 meq PO BID #360 tab 10/01/19 02/02/20 Rx tablet,extended release atenolol 100 mg tablet 200 mg PO BID #360 tab 11/04/19 02/02/20 Rx albuterol sulfate 90 mcg/actuation 1 puff INHALATION Q6H PRN #18 g 08/19/20 11/03/20 Rx aerosol inhaler ipratropium 0.5 mg-albuterol 3 mg 3 ml INHALATION Q6H PRN #180 ml 11/18/19 02/02/20 Rx (2.5 mg base)/3 mL nebulization soln omeprazole 40 mg capsule,delayed 40 mg PO BID #180 cap 12/15/19 02/02/20 Rx release epjdxsyiukt-tojqxoffb-fjcwwhwk 1 inh INH QAM 02/02/20 02/02/20 History [Trelegy Ellipta] furosemide 40 mg PO BID 02/02/20 02/02/20 History metolazone 2.5 mg PO FR 02/02/20 02/02/20 History montelukast 10 mg PO QAM 02/02/20 02/02/20 History Patient History Medical History (Updated 02/03/20 @ 08:08 by Mahamed Acevedo MD) Anemia Atrial fibrillation dx 4-5 years ago --reason for xarelto--follows with Dr. Luna Walker esophagus Chronic obstructive pulmonary disease Denies any h/o hospitalization or intubation. Used advair this am. Has not used albuterol for a few months. Chronic respiratory failure with hypoxia and hypercapnia Difficulty swallowing GERD (gastroesophageal reflux disease) History of heart artery stent x1 2008 @ [facility] by Dr. Luna History of prostate cancer Hyperlipidemia Hypertension Morbid obesity with BMI of 45.0-49.9, adult On anticoagulant therapy On home oxygen therapy 2-3L N/C at all times Sleep apnea CPAP with 2-3L Surgical History History of bilateral cataract extraction History of cardiac cath 2008 @ [facility] - HAD STENT X1 History of colonoscopy History of esophagogastroduodenoscopy (EGD) EUS 03/2019 [facility] EUS 11/21/18 Glidescope 4 with grade 1 view History of lumbar surgery hardware in place History of prostate biopsy malignant History of prostatectomy History of right shoulder replacement History of total left hip replacement History of total right hip replacement History of umbilical hernia repair Hx of esophagogastroduodenoscopy Hx of nasal septoplasty Family History Uncle Prostate cancer Mother Septicemia Father COPD (chronic obstructive pulmonary disease) Pancreatic cancer Other No family history of adverse response to anesthesia Social History Smoking Status: Former smoker Tobacco Type: Cigarettes Age Started Using Tobacco: 17; Age Quit Using Tobacco: 54; packs per day: 1; Years Smoked: 37; Second Hand Exposure: No; Hx Alcohol Use: Yes Alcohol type: hard liquor Alcohol Intake Frequency Comment: 2-3 daily Hx Substance Use: No Preferred Language: Russian Communication Ability: Effective Hearing Ability: Use of Hearing Aid [employer] Specialist Required: No Beliefs That Will Affect Care: None marital status: Current Living Situation: Spouse Current Living Situation Comment: has step-children 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 Feels Safe at Home: Yes Seatbelt Use: always Sunscreen Use: No Assistive Devices: CPAP Review of Systems Cardiovascular: + dyspnea; no chest pain Physical Exam Constitutional: + obese and cooperative; no acute distress Eyes: PERRL, conjunctivae normal, anicteric sclerae ENMT: external ear and nose normal, oropharynx normal Neck: normal visual inspection and trachea midline Respiratory: Auscultation: + rales (bilateral lung bases) and + wheezes (inspiratory and expiratory, diffusely throughout lung martínez) Cardiovascular: Rate/Rhythm: regular rate and + irregularly irregular Heart Sounds: normal S1 and normal S2 Extremities: + pedal edema (+2 bilaterally) Gastrointestinal (Abdomen): normal bowel sounds, soft, nontender, no hepatosplenomegaly Skin: no rashes, warm and dry Psychiatric: A+Ox3, euthymic affect Genitourinary: Raphael catheter in place, draining yellow urine without visible blood clots Results & Data Results & Data ([facility]) Vital Signs (Past 12 Hours) Vital Signs Temp Pulse Resp BP BP Pulse Ox 02/02/20 15:00 76 24 130/63 02/02/20 14:46 74 18 125/79 100 02/02/20 14:45 71 16 100 02/02/20 14:40 36.5 C 73 16 125/79 94 02/02/20 14:30 67 28 H 99 02/02/20 14:27 68 24 119/57 L 100 02/02/20 14:25 36.4 C L 66 18 119/57 L 99 02/02/20 14:16 76 20 119/60 100 02/02/20 14:15 67 17 100 02/02/20 14:06 68 17 108/42 L 96 02/02/20 14:00 47 L 21 99 02/02/20 13:59 36.3 C L 66 18 108/42 L 100 02/02/20 13:46 16 93/41 L 02/02/20 13:45 21 02/02/20 13:31 31 H 111/46 L 02/02/20 13:30 31 H 02/02/20 13:17 48 L 20 115/31 L 02/02/20 13:15 48 L 19 02/02/20 13:00 52 L 18 94 02/02/20 12:46 49 L 18 100/36 L 96 02/02/20 12:45 47 L 12 98 02/02/20 12:36 15 105/41 L 02/02/20 12:30 44 L 22 02/02/20 12:21 115/44 L 98 02/02/20 12:20 54 L 21 115/44 L 02/02/20 12:18 47 L 24 02/02/20 11:57 36.3 C L 57 L 24 73/43 L 93 Resident Activity Tracking Resident Involvement: Resident Care Provided Care Provided: Adult Hospital Medicine
[2020-02-02] MEDS ORDERED: SODIUM CHLORIDE 0.9% 1000ML 1,000 ML IV SCH (15:45)
[2020-02-02] MEDS ORDERED: PATIROMER CALCIUM SORBITEX 8.4 GM PACK PO ONE (16:15)
[2020-02-02 16:38] LABS: BUN Creatinine Ratio 23.2 (10-20); Calcium 8.6 mg/dl (8.5-10.1); Creatinine Clr Calc Pharmacy 25.6 ml/min; Est GFR (African American) 19.2; Est GFR (Non-African American) 16.6; Magnesium 2.9 mg/dl (1.8-2.4); Phosphorus 5.6 mg/dl (2.5-4.9); Potassium 6.6 mmol/L (3.5-5.1)
[2020-02-02] MEDS: PANTOprazole 40 MG TAB PO SCH ×2 (17:32→19:59)
[2020-02-02] MEDS: MONTELUKAST SODIUM 10 MG TABLET PO SCH (19:59)
[2020-02-02] MEDS ORDERED: SODIUM BICARBONATE 8.4% 75 MEQ in SODIUM CHLORIDE 0.45 % 1,000 ML IV SCH (20:00)
--- NOTE | 2020-02-02 20:11 | Nephrology Consultation ---
Date of Consultation February 02, 2020 Assessment & Plan (1) XIOMY (acute kidney injury): Clinically consistent with ATN. Non-oliguric. No emergent need for dialysis. Medications appropriately dosed for kidney function. UA/micro requested. No imaging at this time. Menendez intact. If kidney function continues to decline, non contrast CT should be obtained of the abdomen and pelvis. (2) Acute hyperkalemia: Patiromer 8.4 g given. Additional 60 mg IV furosemide ordered. Continue diuretics with IV fluid containing HCO3 to encourage urine output. 0.45% NaCl + NaHCO3 @ 100 ml/hr x 1 L ordered. No acute EKG changes. Potential role of dialysis discussed with patient. He is aware that [facility] has limited dialysis capabilities overnight. (3) Acute on chronic diastolic (congestive) heart failure: Document strict I/O's. Goal is to encourage a slightly negative fluid balance. Additional 60 mg IV now. (4) Acute GI bleeding: GI consult pending. Rivaroxaban held. (5) SHIRA (obstructive sleep apnea): CPAP QHS. (6) Admitted to intensive care unit: 45 minutes of critical care time provided today. History of Present Illness Reason for Consultation: XIOMY, hyperkalemia Requesting Physician: Lucio Steel Attending Physician: Lucio Steel History of Present Illness Mr. Rodrigo Anderson is a 74-year-old male with obesity, hypertension, coronary artery disease, atrial fibrillation, COPD requiring supplemental oxygen, obstructive sleep apnea, chronic anemia, and history of GI bleed. More recent medical history includes an admission to [facility] in September of 2019 with a COPD exacerbation. Rodrigo has been undergoing monitoring and evaluation for a submucosal gastric mass. Pathology most recently from September continued to demonstrate benign gastric mucosa. Rodrigo presented to the ER at [facility] today with BRBPR and melena. Symptoms started 6 days ago. He reported associated progressive weakness and dyspnea. Rodrigo described dyspnea at rest when sitting down. He has noticed increasing edema in his arms and legs over the past few days. He has been taking furosemide 40 mg twice daily but urine output was noted to be significantly reduced. He denies any LUTS otherwise. He denied any pain. Rodrigo was hypotensive and bradycardic on arrival with a BP of 73/43 mmHg. EKG demonstrated atrial fibrillation with a ventricular rate of 54 bpm. Creatinine was 3.5 mg/dL with a serum potassium of 7.7 mmol/L. <7. He has received medical therapy for hyperkalemia. Following 1 L NSS, 60 mg IV furosemide was provided. 1 unit PRBC transfusion has been provided. Repeat metabolic profile demonstrates a creatinine of 3.5 mg/dL and potassium of 6.6 mmol/L. Urine output since admission ~250 ml. I discussed the POC with the ICU team this evening. Allergies Allergy/AdvReac Type Severity Reaction Status Date / Time adhesive Allergy Mild TAPE-RASH Verified 02/02/20 13:08 oxycodone Allergy Mild RASH Verified 02/02/20 13:08 diltiazem Allergy Unknown Verified 02/02/20 13:08 Home Medications Home Medications Medication Instructions Recorded Confirmed Type Calcium 600 + D(3) 1 cap PO BID 08/21/18 02/02/20 History apkys-bx-3-kde-emk-fptyeor-ast 1 cap PO QAM 08/21/18 02/02/20 History [MegaRed [place]-3 Krill Oil] mometasone [Nasonex] 2 spray INTRANASAL HS 08/21/18 02/02/20 History multivitamin 1 tab PO QAM 08/21/18 02/02/20 History triamcinolone acetonide 1 applic TOPICAL DAILY PRN 08/21/18 02/02/20 History cyanocobalamin (vitamin B-12) 1,000 mcg PO QAM 11/05/18 02/02/20 History [Vitamin B-12] digoxin 125 mcg (0.125 mg) tablet 125 mcg PO QAM #90 tab 07/27/19 02/02/20 Rx rivaroxaban 20 mg tablet 20 mg PO QAM #90 tab 07/27/19 02/02/20 Rx atorvastatin 80 mg tablet 80 mg PO HS #90 tab 09/11/19 02/02/20 Rx potassium chloride 10 mEq 20 meq PO BID #360 tab 10/01/19 02/02/20 Rx tablet,extended release atenolol 100 mg tablet 200 mg PO BID #360 tab 11/04/19 02/02/20 Rx albuterol sulfate 90 mcg/actuation 1 puff INHALATION Q6H PRN #18 g 11/18/19 02/02/20 Rx aerosol inhaler ipratropium 0.5 mg-albuterol 3 mg 3 ml INHALATION Q6H PRN #180 ml 11/18/19 02/02/20 Rx (2.5 mg base)/3 mL nebulization soln omeprazole 40 mg capsule,delayed 40 mg PO BID #180 cap 12/15/19 02/02/20 Rx release blujfdpkdnc-zzacfnkfj-bklrconr 1 inh INH QAM 02/02/20 02/02/20 History [Trelegy Ellipta] furosemide 40 mg PO BID 02/02/20 02/02/20 History metolazone 2.5 mg PO FR 02/02/20 02/02/20 History montelukast 10 mg PO QAM 02/02/20 02/02/20 History Patient History Medical History Anemia Atrial fibrillation dx 4-5 years ago --reason for xarelto--follows with Dr. Luna Walker esophagus Chronic obstructive pulmonary disease Denies any h/o hospitalization or intubation. Used advair this am. Has not used albuterol for a few months. Chronic respiratory failure with hypoxia and hypercapnia Difficulty swallowing GERD (gastroesophageal reflux disease) History of heart artery stent x1 2008 @ [facility] by Dr. Luna History of prostate cancer Hyperlipidemia Hypertension Morbid obesity with BMI of 45.0-49.9, adult On anticoagulant therapy On home oxygen therapy 2-3L N/C at all times Sleep apnea CPAP with 2-3L Surgical History History of bilateral cataract extraction History of cardiac cath 2008 @ [facility] - HAD STENT X1 History of colonoscopy History of esophagogastroduodenoscopy (EGD) EUS 03/2019 [facility] EUS 11/21/18 Glidescope 4 with grade 1 view History of lumbar surgery hardware in place History of prostate biopsy malignant History of prostatectomy History of right shoulder replacement History of total left hip replacement History of total right hip replacement History of umbilical hernia repair Hx of esophagogastroduodenoscopy Hx of nasal septoplasty Family History Uncle Prostate cancer Mother Septicemia Father COPD (chronic obstructive pulmonary disease) Pancreatic cancer Other No family history of adverse response to anesthesia Social History (Reviewed 02/02/20 @ 20:03 by MICHELINE Balderas Smoking Status: Former smoker Tobacco Type: Cigarettes Age Started Using Tobacco: 17; Age Quit Using Tobacco: 54; packs per day: 1; Years Smoked: 37; Second Hand Exposure: No; Hx Alcohol Use: Yes Alcohol type: hard liquor Alcohol Intake Frequency Comment: 2-3 daily Hx Substance Use: No Preferred Language: Korean Communication Ability: Effective Hearing Ability: Use of Hearing Aid Generator Switchboard Operator Required: No Beliefs That Will Affect Care: None marital status: Current Living Situation: Spouse Current Living Situation Comment: has step-children 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 Other Information That Helps Us Care for You: No Feels Safe at Home: Yes Safety Concerns: Feels Safe At This Time Seatbelt Use: always Sunscreen Use: No Assistive Devices: Cane, CPAP, Oxygen - Continuous and Walker Review of Systems Review of Systems: All systems reviewed & are unremarkable except as noted in HPI & below Physical Exam Constitutional: well developed, + ill appearing and + morbidly obese; no acute distress Eyes: + anicteric sclerae; no corneal abnormality ENMT: Mouth: no oral mucosal abnormality and oral mucous membranes not dry Neck: normal visual inspection, trachea midline and + thick neck Respiratory: normal respiratory effort Auscultation: + diminished lung sounds and + wheezes Cardiovascular: Rate/Rhythm: + irregularly irregular Heart Sounds: normal S1 and normal S2 Extremities: + edema Gastrointestinal (Abdomen): Percussion/Palpation: abdomen soft; abdomen nontender Musculoskeletal: Extremities: no cyanosis and no clubbing Skin: normal turgor; no lesions Neurologic: Motor/Sensory: no tremor and no asterixis Psychiatric: Orientation: alert and oriented x 3 Genitourinary: ~250 ml of concentrated cloudy urine in bag Results & Data ([facility]) Vital Signs (Past 12 Hours) Vital Signs Temp Pulse Pulse Resp BP BP Pulse Ox 02/02/20 17:18 36.9 C 63 24 122/35 L 02/02/20 16:52 36.9 C 64 16 122/35 L 98 02/02/20 16:45 66 21 94 02/02/20 16:30 62 23 02/02/20 16:22 59 L 21 122/35 L 02/02/20 16:15 64 25 H 02/02/20 16:00 60 22 02/02/20 15:45 73 25 H 02/02/20 15:33 36.4 C L 71 24 120/51 L 95 02/02/20 15:30 62 25 H 02/02/20 15:22 62 27 H 120/51 L 02/02/20 15:19 80 14 02/02/20 15:00 76 24 130/63 02/02/20 14:46 74 18 125/79 100 02/02/20 14:45 71 16 100 02/02/20 14:40 36.5 C 73 16 125/79 94 02/02/20 14:30 67 28 H 99 02/02/20 14:27 68 24 119/57 L 100 02/02/20 14:25 36.4 C L 66 18 119/57 L 99 02/02/20 14:16 76 20 119/60 100 02/02/20 14:15 67 17 100 02/02/20 14:06 68 17 108/42 L 96 02/02/20 14:00 47 L 21 99 02/02/20 13:59 36.3 C L 66 18 108/42 L 100 02/02/20 13:46 16 93/41 L 02/02/20 13:45 21 02/02/20 13:31 31 H 111/46 L 02/02/20 13:30 31 H 02/02/20 13:17 48 L 20 115/31 L 02/02/20 13:15 48 L 19 02/02/20 13:00 52 L 18 94 02/02/20 12:46 49 L 18 100/36 L 96 02/02/20 12:45 47 L 12 98 02/02/20 12:36 15 105/41 L 02/02/20 12:30 44 L 22 02/02/20 12:21 115/44 L 98 02/02/20 12:20 54 L 21 115/44 L 02/02/20 12:18 47 L 24 02/02/20 11:57 36.3 C L 57 L 24 73/43 L 93 Laboratory Results Laboratory Results - last 24 hr 02/02/20 02/02/20 02/02/20 12:22 12:22 12:22 WBC 8.92 RBC 3.03 L Hgb 6.7 L* POC Hgb Hct 25.9 L POC Hct MCV 85.5 MCH 22.1 L MCHC 25.9 L RDW Std Deviation 63.4 H RDW Coeff of Ezekiel 20.4 H Plt Count 357 MPV 11.3 H Immature Gran % (Auto) 0.1 Neut % (Auto) 74.6 Lymph % (Auto) 9.0 Wilcox % (Auto) 15.5 Eos % (Auto) 0.7 Baso % (Auto) 0.1 Neut # (Auto) 6.66 H Lymph # (Auto) 0.80 L Wilcox # (Auto) 1.38 H Eos # (Auto) 0.06 Baso # (Auto) 0.01 Immature Gran # (Auto) 0.01 Absolute Nucleated RBC 0.08 H Nucleated RBC % (auto) 0.9 Hypochromasia Present Ovalocytes 1+ PT 23.4 H INR 2.3 H APTT 34.3 H PTT Ratio 1.2 POC Sodium Sodium 137 POC Potassium Potassium 7.7 H* POC Chloride Chloride 104 Carbon Dioxide 27 POC Total CO2 Anion Gap 6.0 POC Anion Gap POC BUN BUN 77 H Creatinine 3.55 H POC Creatinine Est Cr Clr Drug Dosing Not Reportable Est GFR ( Amer) 18.8 Est GFR (Non-Af Amer) 16.2 BUN/Creatinine Ratio 21.6 H Glucose 106 H POC Glucose POC Glucose (other) Lactate Calcium 8.8 POC Ioniz Calcium Magaly Phosphorus Magnesium Total Bilirubin 0.8 AST 38 H ALT 20 Alkaline Phosphatase 57 Total Creatine Kinase Troponin I 0.131 H* Total Protein 7.0 Albumin 3.1 L Globulin 3.9 Albumin/Globulin Ratio 0.8 L Procalcitonin Nasal Screen MRSA (PCR) Digoxin Blood Type Antibody Screen Crossmatch 02/02/20 02/02/20 02/02/20 12:30 13:45 15:24 WBC RBC Hgb POC Hgb 7.1 L Hct POC Hct 21 L MCV MCH MCHC RDW Std Deviation RDW Coeff of Ezekiel Plt Count MPV Immature Gran % (Auto) Neut % (Auto) Lymph % (Auto) Wilcox % (Auto) Eos % (Auto) Baso % (Auto) Neut # (Auto) Lymph # (Auto) Wilcox # (Auto) Eos # (Auto) Baso # (Auto) Immature Gran # (Auto) Absolute Nucleated RBC Nucleated RBC % (auto) Hypochromasia Ovalocytes PT INR APTT PTT Ratio POC Sodium 139 Sodium POC Potassium 7.3 H* Potassium POC Chloride 99 L Chloride Carbon Dioxide POC Total CO2 32 H Anion Gap POC Anion Gap 17.0 POC BUN 82 H BUN Creatinine POC Creatinine 3.4 H Est Cr Clr Drug Dosing Est GFR ( Amer) Est GFR (Non-Af Amer) BUN/Creatinine Ratio Glucose POC Glucose POC Glucose (other) 107 H Lactate Calcium POC Ioniz Calcium Magaly 1.05 L Phosphorus Magnesium Total Bilirubin AST ALT Alkaline Phosphatase Total Creatine Kinase Troponin I Total Protein Albumin Globulin Albumin/Globulin Ratio Procalcitonin Nasal Screen MRSA (PCR) Negative Digoxin Blood Type A Positive Antibody Screen NEGATIVE Crossmatch See Detail 02/02/20 02/02/20 02/02/20 15:52 15:52 15:52 WBC RBC Hgb POC Hgb Hct POC Hct MCV MCH MCHC RDW Std Deviation RDW Coeff of Ezekiel Plt Count MPV Immature Gran % (Auto) Neut % (Auto) Lymph % (Auto) Wilcox % (Auto) Eos % (Auto) Baso % (Auto) Neut # (Auto) Lymph # (Auto) Wilcox # (Auto) Eos # (Auto) Baso # (Auto) Immature Gran # (Auto) Absolute Nucleated RBC Nucleated RBC % (auto) Hypochromasia Ovalocytes PT INR APTT PTT Ratio POC Sodium Sodium 141 POC Potassium Potassium 6.6 H* POC Chloride Chloride 106 Carbon Dioxide 32 POC Total CO2 Anion Gap 4.0 POC Anion Gap POC BUN BUN 81 H Creatinine 3.48 H POC Creatinine Est Cr Clr Drug Dosing 25.6 Est GFR ( Amer) 19.2 Est GFR (Non-Af Amer) 16.6 BUN/Creatinine Ratio 23.2 H Glucose 58 L POC Glucose POC Glucose (other) Lactate Calcium 8.6 POC Ioniz Calcium Magaly Phosphorus 5.6 H Magnesium 2.9 H Total Bilirubin AST ALT Alkaline Phosphatase Total Creatine Kinase 59 Troponin I Total Protein Albumin Globulin Albumin/Globulin Ratio Procalcitonin 0.21 Nasal Screen MRSA (PCR) Digoxin 2.9 H* Blood Type Antibody Screen Crossmatch 02/02/20 02/02/20 15:52 16:13 WBC RBC Hgb POC Hgb Hct POC Hct MCV MCH MCHC RDW Std Deviation RDW Coeff of Ezekiel Plt Count MPV Immature Gran % (Auto) Neut % (Auto) Lymph % (Auto) Wilcox % (Auto) Eos % (Auto) Baso % (Auto) Neut # (Auto) Lymph # (Auto) Wilcox # (Auto) Eos # (Auto) Baso # (Auto) Immature Gran # (Auto) Absolute Nucleated RBC Nucleated RBC % (auto) Hypochromasia Ovalocytes PT INR APTT PTT Ratio POC Sodium Sodium POC Potassium Potassium POC Chloride Chloride Carbon Dioxide POC Total CO2 Anion Gap POC Anion Gap POC BUN BUN Creatinine POC Creatinine Est Cr Clr Drug Dosing Est GFR ( Amer) Est GFR (Non-Af Amer) BUN/Creatinine Ratio Glucose POC Glucose 71 POC Glucose (other) Lactate 1.7 Calcium POC Ioniz Calcium Magaly Phosphorus Magnesium Total Bilirubin AST ALT Alkaline Phosphatase Total Creatine Kinase Troponin I Total Protein Albumin Globulin Albumin/Globulin Ratio Procalcitonin Nasal Screen MRSA (PCR) Digoxin Blood Type Antibody Screen Crossmatch PG Care Time/CCT Total # of Minutes Spent Total Time Spent with Patient: Total time spent is greater than 50% in coordination of care (as documented) at patient's floor/unit and/or counseling patient: Coding Level of Care Code 25600 Inpt Consult Level 5 Diagnoses XIOMY (acute kidney injury) N17.9 Acute hyperkalemia E87.5 Acute on chronic diastolic (congestive) heart failure I50.33 Acute GI bleeding K92.2 SHIRA (obstructive sleep apnea) G47.33 Admitted to intensive care unit Z78.9
[2020-02-02] MEDS ORDERED: FUROSEMIDE 60 MG in SYRINGE 0 ML IV ONE (20:30)
[2020-02-02] MEDS ORDERED: ATENOLOL 50 MG TABLET PO SCH (21:00)
[2020-02-02 21:49] LABS: Appearance Urine Turbid (Clear); Bilirubin Urine Negative (Negative); Blood Urine 2+ (Negative); Color Urine Dark Yellow; Epithelial Cell Urine Auto >30 /lpf (0-5); Glucose Urine UA Negative (Negative); Ketones Urine Negative (Negative); Leukocyte Esterase Urine 2+ (Negative); Nitrite Urine Negative (Negative); Protein Urine 2+ (Negative); Specific Gravity Urine 1.019 (1.000-1.030); Urobilinogen Urine Negative (Negative); WBC Urine Automated >30 /hpf (0-5)
[2020-02-02 21:49] LABS: Hematocrit (blood only) 25.3 % (42-52); Mean Corpuscular Hemoglobin 23.4 pg (25-34); Mean Corpuscular Hgb Conc 27.7 g/dL (32-36); Mean Corpuscular Volume 84.6 fL (80-100); Mean Platelet Volume 10.6 fL (7.4-10.4); Platelet Count 287 K/uL (130-400); RDW Coefficient of Variation 19.2 % (11.5-14.5); RDW Standard Deviation 58.9 fL (36.4-46.3); Red Blood Count 2.99 M/uL (4.7-6.1); White Blood Count 9.49 K/uL (4.8-10.8)
[2020-02-02 21:59] LABS: Bacteria Urine Automated 1+ (Negative)
[2020-02-02 22:14] LABS: Urine Potassium 58.9 mmol/L
[2020-02-02 22:15] LABS: BUN Creatinine Ratio 22.7 (10-20); Calcium 8.5 mg/dl (8.5-10.1); Creatinine Clr Calc Pharmacy 25.7 ml/min; Est GFR (African American) 19.3; Est GFR (Non-African American) 16.6; Potassium 6.8 mmol/L (3.5-5.1)
[2020-02-02 22:17] LABS: Basophils # (auto) 0.02 K/uL (0-0.2); Basophils % (auto) 0.2 %; Eosinophils # (auto) 0.07 K/uL (0-0.5); Eosinophils % (auto) 0.7 %; Hypochromasia Present; Immature Granulocytes # (auto) 0.02 K/uL (0.00-0.02); Immature Granulocytes % (auto) 0.2 %; Lymphocytes # (auto) 0.93 K/uL (1.2-3.4); Lymphocytes % (auto) 9.8 %; Monocytes # (auto) 1.46 K/uL (0.11-0.59); Monocytes % (auto) 15.4 %; Neutrophils # (auto) 6.99 K/uL (1.4-6.5); Neutrophils % (auto) 73.7 %; Ovalocytes 1+
--- NOTE | 2020-02-02 23:50 | History & Physical Report ---
Date of Service February 02, 2020 Assessment & Plan (1) Acute GI bleeding: Patient has an acute gastrointestinal bleed, Likely lower GI, this has been ongoing for about 5 days. will replenish with PRBC.consent obtained. will admit to the ICU. will hold rivaroxaban (2) Acute hyperkalemia: potassium is relevated at 7.7 may need dialysis. will consult nephri. patient receiving diuretics may be complicated by his home potassium supplements. may need to hold this at discharge (3) Acute on chronic diastolic (congestive) heart failure: Paient appears to be fluid overloaded, this may be complicated by his poor rennal function. will continue diuretics for now (4) SHIRA (obstructive sleep apnea): bipap at night. (5) XIOMY (acute kidney injury): as noted above. consult nephro (6) Chronic obstructive pulmonary disease: does not appear to be in COPD exacerbation at this time. will resume home meds Admission and Anticipated Discharge Date Admission Date: February 02, 2020 History of Present Illness Chief Complaint: Blood in stool Primary Care Provider: Luis Manuel Mijares MD This is a pleasant 74 yo male who has h/o atrial fib, on Rivaroxaban, COPD presents to the hospital with a 5 day history (last ), of having bright red blood in his stools. His is at bedside and reports that it was a large amount and splattered all over the toilet. He states he had an appointment with a provider on and was willing to wait it out, however as each day passed, his bleeding continued, and be came more tired, and weak. As he continued to feel worse, he finally called his provider and was told to go to the ER. Allergies Allergy/AdvReac Type Severity Reaction Status Date / Time adhesive Allergy Mild TAPE-RASH Verified 02/02/20 13:08 oxycodone Allergy Mild RASH Verified 02/02/20 13:08 diltiazem Allergy Unknown Verified 02/02/20 13:08 Home Medications Home Medications Medication Instructions Recorded Confirmed Type Calcium 600 + D(3) 1 cap PO BID 08/21/18 02/02/20 History grgme-nz-3-sni-ske-lgzafis-ast 1 cap PO QAM 08/21/18 02/02/20 History [MegaRed [place]-3 Krill Oil] mometasone [Nasonex] 2 spray INTRANASAL HS 08/21/18 02/02/20 History multivitamin 1 tab PO QAM 08/21/18 02/02/20 History triamcinolone acetonide 1 applic TOPICAL DAILY PRN 08/21/18 02/02/20 History cyanocobalamin (vitamin B-12) 1,000 mcg PO QAM 11/05/18 02/02/20 History [Vitamin B-12] digoxin 125 mcg (0.125 mg) tablet 125 mcg PO QAM #90 tab 07/27/19 02/02/20 Rx rivaroxaban 20 mg tablet 20 mg PO QAM #90 tab 07/27/19 02/02/20 Rx atorvastatin 80 mg tablet 80 mg PO HS #90 tab 09/11/19 02/02/20 Rx potassium chloride 10 mEq 20 meq PO BID #360 tab 10/01/19 02/02/20 Rx tablet,extended release atenolol 100 mg tablet 200 mg PO BID #360 tab 11/04/19 02/02/20 Rx albuterol sulfate 90 mcg/actuation 1 puff INHALATION Q6H PRN #18 g 11/18/19 02/02/20 Rx aerosol inhaler ipratropium 0.5 mg-albuterol 3 mg 3 ml INHALATION Q6H PRN #180 ml 11/18/19 02/02/20 Rx (2.5 mg base)/3 mL nebulization soln omeprazole 40 mg capsule,delayed 40 mg PO BID #180 cap 12/15/19 02/02/20 Rx release swqtntjaxkd-ocblhacuu-uubdrbot 1 inh INH QAM 02/02/20 02/02/20 History [Trelegy Ellipta] furosemide 40 mg PO BID 02/02/20 02/02/20 History metolazone 2.5 mg PO FR 02/02/20 02/02/20 History montelukast 10 mg PO QAM 02/02/20 02/02/20 History Past Med/Surg History Medical History (Updated 02/03/20 @ 07:52 by Lucio Steel) Anemia Atrial fibrillation dx 4-5 years ago --reason for xarelto--follows with Dr. Cheryl Walker esophagus Chronic obstructive pulmonary disease Denies any h/o hospitalization or intubation. Used advair this am. Has not used albuterol for a few months. Chronic respiratory failure with hypoxia and hypercapnia Difficulty swallowing GERD (gastroesophageal reflux disease) History of heart artery stent x1 2008 @ [facility] by Dr. Luna History of prostate cancer Hyperlipidemia Hypertension Morbid obesity with BMI of 45.0-49.9, adult On anticoagulant therapy On home oxygen therapy 2-3L N/C at all times Sleep apnea CPAP with 2-3L Surgical History History of bilateral cataract extraction History of cardiac cath 2008 @ [facility] - HAD STENT X1 History of colonoscopy History of esophagogastroduodenoscopy (EGD) EUS 03/2019 [facility] EUS 11/21/18 Glidescope 4 with grade 1 view History of lumbar surgery hardware in place History of prostate biopsy malignant History of prostatectomy History of right shoulder replacement History of total left hip replacement History of total right hip replacement History of umbilical hernia repair Hx of esophagogastroduodenoscopy Hx of nasal septoplasty Family History Uncle Prostate cancer Mother Septicemia Father COPD (chronic obstructive pulmonary disease) Pancreatic cancer Other No family history of adverse response to anesthesia Social History Smoking Status: Former smoker Tobacco Type: Cigarettes Age Started Using Tobacco: 17; Age Quit Using Tobacco: 54; packs per day: 1; Years Smoked: 37; Second Hand Exposure: No; Hx Alcohol Use: Yes Alcohol type: hard liquor Alcohol Intake Frequency Comment: 2-3 daily Hx Substance Use: No Preferred Language: Sierra Leonean Communication Ability: Effective Hearing Ability: Use of Hearing Aid Pipe Chipper Required: No Beliefs That Will Affect Care: None marital status: Current Living Situation: Spouse Current Living Situation Comment: has step-children 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 Other Information That Helps Us Care for You: No Feels Safe at Home: Yes Safety Concerns: Feels Safe At This Time Seatbelt Use: always Sunscreen Use: No Assistive Devices: Cane, CPAP, Oxygen - Continuous and Walker Review of Systems Constitutional: no fever and no sweats Eyes: no diplopia Ear, Nose, Mouth, Throat: no ear pain and no ear trauma Respiratory: no change in sputum Cardiovascular: no chest pain, no chest pain with activity and no radiating jaw, neck or arm pain Gastrointestinal: + blood in stools Genitourinary: no urinary frequency Musculoskeletal: no radicular pain Integumentary: no rash Neurologic: no falls Psychiatric: no hopelessness Endocrine: no polydipsia Hematologic / Lymphatic: no unexplained weight loss Physical Exam Constitutional: Lying in bed and receiving blood Eyes: PERRL, conjunctivae normal, anicteric sclerae ENMT: external ear and nose normal, oropharynx normal Neck: trachea midline, no thyromegaly Respiratory: bilateral wheezing heard Cardiovascular: Rate/Rhythm: regular rate and regular rhythm Heart Sounds: normal S1 and normal S2 Gastrointestinal (Abdomen): normal bowel sounds, soft, nontender, no hepatosplenomegaly Musculoskeletal: no cyanosis or clubbing, extremities motor strength 5/5 Skin: no rashes, warm and dry Neurologic: PERRL, EOMI, accommodation nl, no face palsy, no dysarthria Psychiatric: A+Ox3, euthymic affect Lymphatic: no cervical or axillary lymphadenopathy Results & Data Results & Data ([facility]) Vital Signs (Past 12 Hours) Vital Signs Temp Pulse Pulse Resp BP BP Pulse Ox 02/02/20 22:56 61 22 95 02/02/20 22:44 36.4 C L 60 15 99/55 L 95 02/02/20 21:30 64 19 100 02/02/20 21:22 63 13 84/66 L 100 02/02/20 21:00 61 12 100 02/02/20 20:31 62 15 110/39 L 100 02/02/20 20:30 61 13 02/02/20 20:00 65 19 85 L 02/02/20 19:30 54 L 19 86 L 02/02/20 19:22 56 L 26 H 112/58 L 02/02/20 19:00 57 L 15 02/02/20 17:18 36.9 C 63 24 122/35 L 02/02/20 16:52 36.9 C 64 16 122/35 L 98 02/02/20 16:45 66 21 94 02/02/20 16:30 62 23 02/02/20 16:22 59 L 21 122/35 L 02/02/20 16:15 64 25 H 02/02/20 16:00 60 22 02/02/20 15:45 73 25 H 02/02/20 15:33 36.4 C L 71 24 120/51 L 95 02/02/20 15:30 62 25 H 02/02/20 15:22 62 27 H 120/51 L 02/02/20 15:19 80 14 02/02/20 15:00 76 24 130/63 02/02/20 14:46 74 18 125/79 100 02/02/20 14:45 71 16 100 02/02/20 14:40 36.5 C 73 16 125/79 94 02/02/20 14:30 67 28 H 99 02/02/20 14:27 68 24 119/57 L 100 02/02/20 14:25 36.4 C L 66 18 119/57 L 99 02/02/20 14:16 76 20 119/60 100 02/02/20 14:15 67 17 100 02/02/20 14:06 68 17 108/42 L 96 02/02/20 14:00 47 L 21 99 02/02/20 13:59 36.3 C L 66 18 108/42 L 100 02/02/20 13:46 16 93/41 L 02/02/20 13:45 21 02/02/20 13:31 31 H 111/46 L 02/02/20 13:30 31 H 02/02/20 13:17 48 L 20 115/31 L 02/02/20 13:15 48 L 19 02/02/20 13:00 52 L 18 94 02/02/20 12:46 49 L 18 100/36 L 96 02/02/20 12:45 47 L 12 98 02/02/20 12:36 15 105/41 L 02/02/20 12:30 44 L 22 02/02/20 12:21 115/44 L 98 02/02/20 12:20 54 L 21 115/44 L 02/02/20 12:18 47 L 24 02/02/20 11:57 36.3 C L 57 L 24 73/43 L 93 PG Care Time/CCT Total # of Minutes Spent Total Time Spent with Patient: Total time spent is greater than 50% in coordination of care (as documented) at patient's floor/unit and/or counseling patient: Coding Level of Care Code 46367 Initial Inpt Care Lvl 3 Diagnoses Acute GI bleeding K92.2 Acute hyperkalemia E87.5 Acute on chronic diastolic (congestive) heart failure I50.33 SHIRA (obstructive sleep apnea) G47.33 XIOMY (acute kidney injury) N17.9 Chronic obstructive pulmonary disease J44.9 Time Spent (min) 65
[2020-02-03] MEDS ORDERED: DEXTROSE 50% 50 ML SYRINGE IV ONE (00:11)
[2020-02-03] MEDS ORDERED: CALCIUM CHLORIDE 10% 1,000 MG in SODIUM CHLORIDE 0.9% 50 ML IV STA (00:11)
[2020-02-03] MEDS ORDERED: SODIUM BICARB 8.4% INJ 50 MEQ/50 ML SYR IV STA (00:11)
[2020-02-03] MEDS ORDERED: INSULIN HUMAN REGULAR PER UNIT 8 UNITS in SYRINGE 7.92 ML IV STA (00:22)
[2020-02-03 03:23] LABS: Hematocrit (blood only) 25.5 % (42-52); Hemoglobin 7.5 g/dL (14.0-18.0); Mean Corpuscular Hgb Conc 29.4 g/dL (32-36); Mean Platelet Volume 10.9 fL (7.4-10.4); Nucleated RBC # (auto) 0.06 K/uL (0-0); Nucleated RBC % (auto) 0.6 %; Platelet Count 263 K/uL (130-400); RDW Coefficient of Variation 18.9 % (11.5-14.5); RDW Standard Deviation 58.5 fL (36.4-46.3); White Blood Count 10.37 K/uL (4.8-10.8)
[2020-02-03 03:29] LABS: Base Excess VBG 5.3 mEq/L; HCO3 VBG 31 mmol/L; PCO2 VBG 56 mmHg (38-50); PO2 VBG 31 mmHg; pH VBG 7.37 (7.36-7.41)
[2020-02-03 03:30] LABS: Oxygen Saturation VBG < 60.0 %
[2020-02-03 03:31] LABS: INR 1.6 (0.9-1.1); Prothrombin Time 16.9 Seconds (9.0-12.0)
[2020-02-03 03:39] LABS: BUN Creatinine Ratio 24.7 (10-20); Calcium 8.3 mg/dl (8.5-10.1); Creatinine Clr Calc Pharmacy 26.8 ml/min; Est GFR (African American) 20.3; Est GFR (Non-African American) 17.5; Magnesium 2.8 mg/dl (1.8-2.4); Potassium 5.9 mmol/L (3.5-5.1)
[2020-02-03 03:49] LABS: Phosphorus 5.4 mg/dl (2.5-4.9); Troponin I 0.274 ng/ml (0-0.045)
[2020-02-03 03:53] LABS: Basophils # (auto) 0.01 K/uL (0-0.2); Basophils % (auto) 0.1 %; Eosinophils # (auto) 0.12 K/uL (0-0.5); Eosinophils % (auto) 1.2 %; Hypochromasia Present; Immature Granulocytes # (auto) 0.01 K/uL (0.00-0.02); Immature Granulocytes % (auto) 0.1 %; Lymphocytes # (auto) 1.87 K/uL (1.2-3.4); Monocytes # (auto) 0.77 K/uL (0.11-0.59); Monocytes % (auto) 7.4 %; Neutrophils # (auto) 7.59 K/uL (1.4-6.5); Neutrophils % (auto) 73.2 %; Ovalocytes 1+
[2020-02-03] MEDS ORDERED: SODIUM CHLORIDE 0.9% 250 ML IV PRN (03:53)
[2020-02-03] MEDS ORDERED: FUROSEMIDE 80 MG in SYRINGE 0 ML IV ONE ×2 (05:04→11:00)
--- NOTE | 2020-02-03 07:14 | XRay Report ---
XR chest 1V portable CLINICAL HISTORY: f/u COMPARISON STUDY: Chest radiograph December 19, 2018. Chest radiograph February 02, 2020 FINDINGS: Right shoulder arthroplasty is incidentally noted. Cardiomegaly is unchanged. Interstitial thickening and bilateral opacities have slightly improved. There are small bilateral pleural effusion s with left basilar opacity. There is no pneumothorax. IMPRESSION: 1. Mild pulmonary edema, improved since prior exam. 2. Persistent small bilateral pleural effusions with left basilar opacity which may reflect atelectas is or consolidation. ACT 112: Negative or not required by law. Electronically signed by: Zackery Jensen M.D. 02/03/2020 7:13 AM
[2020-02-03] MEDS ORDERED: GLUCAGON 5 MG in SYRINGE 0 ML IV STA (07:21)
--- NOTE | 2020-02-03 08:02 | Hospitalist Progress Note ---
Date of Service February 03, 2020 Assessment & Plan (1) Acute GI bleeding: Patient has an acute gastrointestinal bleed, acute blood loss anemia, ongoing for about 5 days. hold rivaroxaban previous significant work up in 2019 with endosocpes and capsule was unrevealing no plan on intervention at this time unless bleeding appears to be on going repeat hgb 8.2 (2) Acute hyperkalemia: potassium was elevated at 7.7, after treatment has improved but not completely normal followed by consult nephrology patient did recieve additional diuretics nephrology is considering dialysis (3) Acute on chronic diastolic (congestive) heart failure: Paient appears to be fluid overloaded, this may be complicated by his poor renal function. will continue diuretics for now, not clear if will have good response, may need dialysis for volume and electrolyte balance (4) Elevated troponin: likely demand ischemia in the face of severe anemia (5) Afib: pt is with rate control, atenolol digoxin is supratherapeutic (6) XIOMY (acute kidney injury): acute kideny injury in history of ckd 3, most likley from intravascular volume loss, complicated by / causing digoxin toxicity, on digibine, and attempt to promote urine production with loop diuretic to help lower potassium, consideration for dialysis by neprhology (7) Chronic obstructive pulmonary disease: does not appear to be in COPD exacerbation at this time. will resume home meds-trelegy, singular and nebulized albuterol and atrovent (8) Abnormal urinalysis: markedly abnormal will send syed mauricio from atn (9) SHIRA (obstructive sleep apnea): bipap at night. (10) DVT prophylaxis: scd as chemoprophylaxis contraindicated in pt with Acute blood loss anemia Admission and Anticipated Discharge Date Admission Date: February 02, 2020 Subjective Patient is mild distress he is appearing to be mildly volume overloaded given his peripheral edema. There is concern for ATN with low urine output possibly based on hypovolemic shock to the acute blood loss from a suspected lower GI bleed that was encouraged by chronic anticoagulation therapy with Xarelto patient suffers without significant distress he has no abdominal pain he did note a hospital to have significant dyspnea on exertion and was also troubled by blood containing stools or dark stools Nephrology is considering the need for dialysis as a bridge to get the patient over his ATN if he does not produce urine by this afternoon Gastroenterology is also hesitant to perform any intervention unless it becomes apparent that acute blood loss is continuing Patient is renal distress this created him to be dig toxic and he was given Digibind Review of Systems Review of Systems: Moderate distress and fatigue no headache, blurry or double vision no speech or swallowing issues no chest pain, pressure or palpitations Dyspnea on exertion, no significant cough or wheezes no abdominal pain, nausea or vomiting, diarrhea or constipation no dysuria, hematuria or frequency no focal joint pain significant peripheral swelling no back pain, CVA tenderness or radicular pain no bruising, bleeding or rashes no focal signs of weakness or numbness or altered sensation no complaints of anxiety or depression. Physical Exam Physical Exam: The patient appeared in moderate distress, swollen and uncomfortable Vital signs as documented. Head exam is normocephalic atraumatic no scleral icterus Neck is with difficult to asses JVD due to morbid obesity, no carotid bruits. Lungs are diminshed at the bases Cardiac exam, irregular rate controlled with [place] Abdominal exam reveals normal bowel sounds, soft non tender, no masses, distended Extremities are 2+ edematous and both pedal pulses are present Neurologic exam is alert and oriented, no focal loss of strength or sensation Skin is without bruises Psychologically is without concerns for anxiety or depression. Results & Data Results & Data ([facility]) Vital Signs (Past 12 Hours) Vital Signs Temp Pulse Resp BP Pulse Ox 02/03/20 07:33 98.1 F 57 L 24 125/61 96 02/03/20 07:32 97.9 F 57 L 24 121/48 L 95 02/03/20 06:15 59 L 25 H 90 02/03/20 06:03 62 27 H 116/42 L 89 L 02/03/20 06:00 71 28 H 91 02/03/20 05:48 59 L 22 108/46 L 87 L 02/03/20 05:45 64 22 89 L 02/03/20 05:33 67 24 120/50 L 90 02/03/20 05:30 72 23 84 L 02/03/20 05:18 66 24 120/60 88 L 02/03/20 05:16 97.7 F 59 L 19 119/49 L 91 02/03/20 05:15 60 27 H 93 02/03/20 05:03 60 27 H 119/49 L 91 02/03/20 05:00 66 23 89 L 02/03/20 04:48 47 L 21 105/50 L 88 L 02/03/20 04:45 52 L 17 82 L 02/03/20 04:33 63 23 112/45 L 84 L 02/03/20 04:30 68 22 85 L 02/03/20 03:26 60 18 92 02/03/20 02:00 51 L 14 94 02/03/20 01:48 59 L 12 101/52 L 94 02/03/20 01:45 58 L 17 88 L 02/03/20 01:34 60 23 101/37 L 83 L 02/03/20 01:30 56 L 21 86 L 02/03/20 01:18 64 25 H 115/54 L 88 L 02/03/20 01:15 60 19 87 L 02/03/20 01:03 69 28 H 109/45 L 93 02/03/20 01:00 53 L 18 89 L 02/03/20 00:48 61 28 H 116/43 L 90 02/03/20 00:45 64 28 H 90 02/03/20 00:33 62 17 101/59 L 96 02/03/20 00:30 66 23 95 02/03/20 00:18 63 24 89/71 L 96 02/03/20 00:15 48 L 18 95 02/03/20 00:03 53 L 15 90/67 L 94 02/03/20 00:00 62 24 111/44 L 96 02/02/20 23:48 63 16 111/44 L 95 02/02/20 23:45 57 L 16 87 L 02/02/20 23:33 54 L 18 106/41 L 94 02/02/20 23:30 57 L 23 90 02/02/20 23:21 60 20 98/50 L 91 02/02/20 23:15 59 L 16 90 02/02/20 23:03 61 20 94 02/02/20 23:00 60 8 L 94 02/02/20 22:56 61 22 95 02/02/20 22:44 97.5 F L 60 15 99/55 L 95 02/02/20 21:30 64 19 100 02/02/20 21:22 63 13 84/66 L 100 02/02/20 21:00 61 12 100 02/02/20 20:31 62 15 110/39 L 100 02/02/20 20:30 61 13 02/02/20 20:00 65 19 85 L PG Care Time/CCT Total # of Minutes Spent Total Time Spent with Patient: Total time spent is greater than 50% in coordination of care (as documented) at patient's floor/unit and/or counseling patient: Coding Level of Care Code 72724 Subseq Hosp Care Lvl 3 Diagnoses Acute GI bleeding K92.2 Acute hyperkalemia E87.5 Acute on chronic diastolic (congestive) heart failure I50.33 Elevated troponin R77.8 Afib I48.91 XIOMY (acute kidney injury) N17.9 Chronic obstructive pulmonary disease J44.9 Abnormal urinalysis R82.90 SHIRA (obstructive sleep apnea) G47.33 DVT prophylaxis Z29.9
[2020-02-03] MEDS: ATORVASTATIN 40 MG TAB PO SCH (08:17)
[2020-02-03] MEDS: FLUTICASONE FUROATE 100MCG 14 PUFFS/INHALER INH SCH (08:17)
[2020-02-03] MEDS: UMECLIDINIUM/VILANTEROL 62.5/25MCG 7 PUFFS/INHALER INH SCH (08:17)
[2020-02-03] MEDS: PATIROMER CALCIUM SORBITEX 8.4 GM PACK PO SCH (08:19)
--- NOTE | 2020-02-03 08:27 | Critical Care Progress Note ---
Date of Service February 03, 2020 Assessment & Plan (1) Admitted to intensive care unit: Reason Critically Ill: Mr. Anderson is a 74 yo gentleman who was admitted with a GI bleed, found to have XIOMY with hyperkalemia on presentation. He was sent to the ICU for close cardiac monitoring in the setting of significant electrolyte derangements. Over the past 24 hours Mr. Anderson has received 3 units of pRBCs. His hemoglobin did not rise appropriately after the first two units, suggestive of an ongoing GI bleed. Plan to recheck H+H after third unit transfuses. He was given vitamin K and prothrombin concentrate to lower his INR in anticipation of an endoscopy procedure today. His renal function has only mildly improved. Urine output has been only 125 cc in the past 12 hours, despite 2 doses of lasix, IV 60mg. An additional dose will be ordered this morning. For his hyperkalemia, he was started on a bicarb drip overnight, and was given an additional 10 units of insulin. His potassium has come down to 5.9 from 7.7 on admission. The bicarb drip has since been discontinued. We will order an additional dose of Valtasa this morning. Patient is aware he may need dialysis if his kidney function fails to improve; he is also aware this will entail placement of a hemodialysis catheter. Patient's presentation may be secondary to digoxin toxicity. Digoxin level remains elevated at 2.9; we will initiate digibind today. His HR remains mildly bradycardic in 50s; he is meeting MAP goals without vasopressors. He is breathing on his home oxygen requirement. Neuro: CAM ICU: Negative - no issues Cardiac: * Atrial Fibrillation - EKG showing Afib without RVR - holding Rivaroxaban in the setting of acute GI bleed - INR 2.3 on admission, down to 1.6 with vitamin K and prothrombin concentrate administration - rate controlled with atenolol 200mg, BID at home * Hx CHF - CXR on admission showing bilateral pleural effusions and moderate pulmonary vascular congestion. Repeat study today showing improvement in his pulmonary edema. - patient appears to be volume overloaded on exam - home medication regimen includes digoxin, atenolol, and furosemide 40mg, PO BID - currently holding digoxin, atenolol and home lasix dose in favor of IV doses - expect further dieresis with additional IV lasix - digoxin level elevated to 2.9 on admission, remains at 2.9 today. Will start Digibind today. - most recent ECHO 07/2018 showing normal biventricular systolic function, mild concentric LVH, no valvular abnormalities * Hx CAD - on atorvastatin 80mg * Elevated troponin - trop at 0.131 on admission --> 0.27 - EKG without ST segment changes - likely secondary to demand ischemia in the setting of anemia - without chest pain on exam - trend trop Respiratory: * COPD - baseline oxygen requirement of 4L via NC - currently satting 95% on 10 L via NC - continue home medication regimen: montelukast, Trelegy Ellipta and ipratropium/albuterol inhaler * Hx SHIRA - patient compliant with CPAP at home GI: * GI bleed - Hgb 6.7 on admission, fecal occult blood + - patient reported 6 day history of BRBPR and black, tarry stools on admission - patient with extensive work over past year without identified source (see HPI) - Hgb improved to 7.5 after 2 units of pRBCs transfused, suggestive of ongoing GI bleed. Additional unit ordered. - K-centra and vit K administered in the event of procedure - NPO in the event of procedure - GI consulted RENAL/LYTES: * Acute Kidney Injury - Cr 3.55 on admission, down to 3.33 today. BUN 77, ratio 24 - suspect secondary to hypoperfusion (given hypotension on admission) - urine sodium at 23. Urine osmolality 340. Urine urea and creatinine pending. - oliguric - nephrology consulted * Hyperkalemia - K 7.7 on admission; K down to 5.9 - EKG with mildly prolonged QRS interval, but with normal ME interval, no peaked T waves (although low voltage makes interpretation limited) - patient has been treated with Iv Lasix, insulin, and bicarb drip - he has been given calcium gluconate for cardiac membrane stabilization - cayexalate contraindicated in setting of acute GI bleed; Valtasa ordered - nephrology consulted as above -CK level normal : - Raphael in place -strict Is/Os ENDO: - no history of diabetes or thyroid disease HEME: * Anemia - Hgb 6.7 on admission. Improved to only 7.5 after being transfused 2 units of pRBCs. Additional unit ordered. - MCV 85, normocytic - known history of iron deficiency - fecal occult stool + in ED and report of BRBPR by patient suggestive of blood loss - etiology of anemia may therefore be multifactorial - repeat H+H after 3rd unit transfused ID: - WBC normal on admission - procal not elevated - Nasal MRSA negative LINES/IV ACCESS: R femoral triple lumen central catheter, PIV (22 gauge in R wrist), raphael CODE STATUS: DNR/DNI DVT PROPHYLAXIS: bilateral SCDs, chemical prophylaxis contraindicated in setting of acute GI bleed Thank you for allowing us to participate in the care of this patient. Please refer to my attending physician's documentation for any further recommendations. Admission and Anticipated Discharge Date Admission Date: February 02, 2020 Supervising Physician Co-Signing Physician Notes Dr Grant was the resident-physician during care of patient. I separately d[place] luated patient for blancas portions of the history and the exam. I was present during the critical portion of medical decision making, and I discussed the case with the resident. I generally agree with the findings and plan except for any additions/exceptions noted. Patient seen and examined at bedside. No acute distress, no adverse events overnight. Patient was 68 of Lasix early in the morning. His potassium is still on the higher side. His urine output is significantly reduced he made only 270 ml in the last 12 hours. Given the decrease in urine output as well as still elevated potassium. Plan will be to dialyze the patient. We will put dialysis catheter. Patient digoxin level is still 2.9. And he is also bradycardic. Digoxin toxicity can also present the same way. We will give him 1 dose of Digibind. Discussed the case with GI. They want to monitor H&H and plan to do EGD prior to discharge if need be. In/out: Urine output 150 mL, +[id number] I have personally spent 37 minutes of critical care time in the direct management of this patient. This is a life/limb threatening event. This includes time spent evaluating patient, direct bedside care, chart review, placing orders, interpretation of diagnostic studies, discussion with consultants, patient, and/or family members regarding treatment decisions, as well as other required patient management activities. This time is exclusive of all separately billable procedures, and teaching time and separate from and in addition to any other critical care service time. Subjective Mr. Anderson says he is feeling lousy, but denies any chest pain or SOB. He is aware he may ultimately need to be dialyzed, which will involve placement of an HD catheter. He has no had a BM since being in the hospital. Review of Systems Cardiovascular: no chest pain and no dyspnea Physical Exam Constitutional: + obese and cooperative; no acute distress Eyes: PERRL, conjunctivae normal, anicteric sclerae ENMT: external ear and nose normal, oropharynx normal Neck: normal visual inspection and trachea midline Respiratory: Auscultation: + rales (bilateral lung bases) and + wheezes (inspiratory and expiratory, diffusely throughout lung martínez) Cardiovascular: Rate/Rhythm: regular rate and + irregularly irregular Heart Sounds: normal S1 and normal S2 Extremities: + pedal edema (+2 bilaterally) Gastrointestinal (Abdomen): normal bowel sounds, soft, nontender, no hepatosplenomegaly Skin: no rashes, warm and dry Psychiatric: A+Ox3, euthymic affect Genitourinary: Raphael catheter in place, draining yellow urine without visible blood clots Results & Data Results & Data ([facility]) Vital Signs (Past 12 Hours) Vital Signs Temp Pulse Resp BP Pulse Ox 02/03/20 07:33 36.7 C 57 L 24 125/61 96 02/03/20 07:32 36.6 C 57 L 24 121/48 L 95 02/03/20 06:15 59 L 25 H 90 02/03/20 06:03 62 27 H 116/42 L 89 L 02/03/20 06:00 71 28 H 91 02/03/20 05:48 59 L 22 108/46 L 87 L 02/03/20 05:45 64 22 89 L 02/03/20 05:33 67 24 120/50 L 90 02/03/20 05:30 72 23 84 L 02/03/20 05:18 66 24 120/60 88 L 02/03/20 05:16 36.5 C 59 L 19 119/49 L 91 02/03/20 05:15 60 27 H 93 02/03/20 05:03 60 27 H 119/49 L 91 02/03/20 05:00 66 23 89 L 02/03/20 04:48 47 L 21 105/50 L 88 L 02/03/20 04:45 52 L 17 82 L 02/03/20 04:33 63 23 112/45 L 84 L 02/03/20 04:30 68 22 85 L 02/03/20 03:26 60 18 92 02/03/20 02:00 51 L 14 94 02/03/20 01:48 59 L 12 101/52 L 94 02/03/20 01:45 58 L 17 88 L 02/03/20 01:34 60 23 101/37 L 83 L 02/03/20 01:30 56 L 21 86 L 02/03/20 01:18 64 25 H 115/54 L 88 L 02/03/20 01:15 60 19 87 L 02/03/20 01:03 69 28 H 109/45 L 93 02/03/20 01:00 53 L 18 89 L 02/03/20 00:48 61 28 H 116/43 L 90 02/03/20 00:45 64 28 H 90 02/03/20 00:33 62 17 101/59 L 96 02/03/20 00:30 66 23 95 02/03/20 00:18 63 24 89/71 L 96 02/03/20 00:15 48 L 18 95 02/03/20 00:03 53 L 15 90/67 L 94 02/03/20 00:00 62 24 111/44 L 96 02/02/20 23:48 63 16 111/44 L 95 02/02/20 23:45 57 L 16 87 L 02/02/20 23:33 54 L 18 106/41 L 94 02/02/20 23:30 57 L 23 90 02/02/20 23:21 60 20 98/50 L 91 02/02/20 23:15 59 L 16 90 02/02/20 23:03 61 20 94 02/02/20 23:00 60 8 L 94 02/02/20 22:56 61 22 95 02/02/20 22:44 36.4 C L 60 15 99/55 L 95 02/02/20 21:30 64 19 100 02/02/20 21:22 63 13 84/66 L 100 02/02/20 21:00 61 12 100 02/02/20 20:31 62 15 110/39 L 100 02/02/20 20:30 61 13 Resident Activity Tracking Resident Involvement: Resident Care Provided Care Provided: Adult Hospital Medicine
[2020-02-03] MEDS ORDERED: 0.2 MICRON FILTER SET 1 EA IV ONE (08:44)
[2020-02-03] MEDS ORDERED: SODIUM CHLORIDE 0.9% IV ONE (08:45)
[2020-02-03] MEDS ORDERED: DIGOXIN IMMUNE FAB IV ONE (08:45)
[2020-02-03] MEDS: PANTOprazole 40 MG in SYRINGE 0 ML IV SCH ×2 (09:25→20:07)
[2020-02-03 09:26] LABS: Hematocrit (blood only) 29.6 % (42-52); Hemoglobin 8.4 g/dL (14.0-18.0)
--- NOTE | 2020-02-03 09:30 | Billing Data ---
Date of Service February 02, 2020 Coding Level of Care Code Critical Care 1st 30-74 mins Time Spent (min) 61
--- NOTE | 2020-02-03 10:07 | Gastrointestinal Consultation ---
Date of Consultation February 03, 2020 Assessment & Plan (1) Rectal bleeding: By description, sounds consistent with lower GI bleeding. Possible etiologies include diverticular vs hemorrhoidal vs less likely neoplastic vs other. Patient has had a significant work-up for anemia/bleeding since 2019 with EGDs, colonoscopy, & VCE without source of bleeding. Of note, patient continues Xarelto as an outpatient. -Monitor H/H. -Treat possible volume overload. -Will continue o follow clinically, but will determine need for potential intervention as things continue. -Supportive care per primary team. Thank you for allowing us to participate in the care of this patient. If you should have any further questions or concerns, do not hesitate to contact us at extension [phone] or [phone]. Supervising Physician Co-Signing Physician Notes Agree with Elaine Cuevas PAC He is sitting up in bed eating Abd: Soft, NT, ND, +BS Will follow H/H and allow for treatment of heart failure Consider endoscopic evaluation for evidence of overt GI bleeding Continue current therapy and supportive care. History of Present Illness Reason for Consultation: Lower GI bleeding, anemia Attending Physician: Mahamed Acevedo MD History of Present Illness Patient is a 74 yo male who presents to [facility] with rectal bleeding. Currently hemoglobin and hematocrit is 8.4/29.6. Upon presentation yesterday his Hemoglobin was 6.7. He reports 5 days of painless BRBPR. He is on Xarelto for atrial fibrillation. He reports no additional NSAID use. He denies abdominal pain or rectal pain. He has been evaluated repeatedly for anemia in the outpatient setting. In July 2018, he underwent an EGD & colonoscopy that did not indicate any sources of active bleeding. He then had a video capsule study that was unremarkable as well. Presently, he does seem to have an acute exacerbation of CHF with volume overload. He reports he feels well at present, but acknowledges he never really feels significantly different when anemic. Allergies Allergy/AdvReac Type Severity Reaction Status Date / Time adhesive Allergy Mild TAPE-RASH Verified 02/02/20 13:08 oxycodone Allergy Mild RASH Verified 02/02/20 13:08 diltiazem Allergy Unknown Verified 02/02/20 13:08 Home Medications Home Medications Medication Instructions Recorded Confirmed Type Calcium 600 + D(3) 1 cap PO BID 08/21/18 02/02/20 History vfknt-qj-3-fqj-eri-maxmrea-ast 1 cap PO QAM 08/21/18 02/02/20 History [MegaRed Sequ[place]-3 Krill Oil] mometasone [Nasonex] 2 spray INTRANASAL HS 08/21/18 02/02/20 History multivitamin 1 tab PO QAM 08/21/18 02/02/20 History triamcinolone acetonide 1 applic TOPICAL DAILY PRN 08/21/18 02/02/20 History cyanocobalamin (vitamin B-12) 1,000 mcg PO QAM 11/05/18 02/02/20 History [Vitamin B-12] digoxin 125 mcg (0.125 mg) tablet 125 mcg PO QAM #90 tab 07/27/19 02/02/20 Rx rivaroxaban 20 mg tablet 20 mg PO QAM #90 tab 07/27/19 02/02/20 Rx atorvastatin 80 mg tablet 80 mg PO HS #90 tab 09/11/19 02/02/20 Rx potassium chloride 10 mEq 20 meq PO BID #360 tab 10/01/19 02/02/20 Rx tablet,extended release atenolol 100 mg tablet 200 mg PO BID #360 tab 11/04/19 02/02/20 Rx albuterol sulfate 90 mcg/actuation 1 puff INHALATION Q6H PRN #18 g 11/18/19 02/02/20 Rx aerosol inhaler ipratropium 0.5 mg-albuterol 3 mg 3 ml INHALATION Q6H PRN #180 ml 11/18/19 02/02/20 Rx (2.5 mg base)/3 mL nebulization soln omeprazole 40 mg capsule,delayed 40 mg PO BID #180 cap 12/15/19 02/02/20 Rx release xoykmursqly-xdgpxrafp-hdtbliwh 1 inh INH QAM 02/02/20 02/02/20 History [Trelegy Ellipta] furosemide 40 mg PO BID 02/02/20 02/02/20 History metolazone 2.5 mg PO FR 02/02/20 02/02/20 History montelukast 10 mg PO QAM 02/02/20 02/02/20 History Patient History Medical History (Updated 02/03/20 @ 15:18 by Mahamed Acevedo MD) Anemia Atrial fibrillation dx 4-5 years ago --reason for xarelto--follows with Dr. Luna Walker esophagus Chronic obstructive pulmonary disease Denies any h/o hospitalization or intubation. Used advair this am. Has not used albuterol for a few months. Chronic respiratory failure with hypoxia and hypercapnia Difficulty swallowing GERD (gastroesophageal reflux disease) History of heart artery stent x1 2008 @ [facility] by Dr. Luna History of prostate cancer Hyperlipidemia Hypertension Morbid obesity with BMI of 45.0-49.9, adult On anticoagulant therapy On home oxygen therapy 2-3L N/C at all times Sleep apnea CPAP with 2-3L Surgical History History of bilateral cataract extraction History of cardiac cath 2008 @ [facility] - HAD STENT X1 History of colonoscopy History of esophagogastroduodenoscopy (EGD) EUS 03/2019 [facility] EUS 11/21/18 Glidescope 4 with grade 1 view History of lumbar surgery hardware in place History of prostate biopsy malignant History of prostatectomy History of right shoulder replacement History of total left hip replacement History of total right hip replacement History of umbilical hernia repair Hx of esophagogastroduodenoscopy Hx of nasal septoplasty Family History Uncle Prostate cancer Mother Septicemia Father COPD (chronic obstructive pulmonary disease) Pancreatic cancer Other No family history of adverse response to anesthesia Social History Smoking Status: Former smoker Tobacco Type: Cigarettes Age Started Using Tobacco: 17; Age Quit Using Tobacco: 54; packs per day: 1; Years Smoked: 37; Second Hand Exposure: No; Hx Alcohol Use: Yes Alcohol type: hard liquor Alcohol Intake Frequency Comment: 2-3 daily Hx Substance Use: No Preferred Language: Indonesian Communication Ability: Effective Hearing Ability: Use of Hearing Aid Ruling Machine Feeder Required: No Beliefs That Will Affect Care: None marital status: Current Living Situation: Spouse Current Living Situation Comment: has step-children 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 Feels Safe at Home: Yes Seatbelt Use: always Sunscreen Use: No Assistive Devices: CPAP Review of Systems Constitutional: no fever and no chills Eyes: no problem reported Respiratory: + dyspnea on exertion Cardiovascular: no chest pain Gastrointestinal: + blood in stools; no abdominal pain, no heartburn, no vomiting, no cramping, no change in bowel habits and no diarrhea/loose stools Musculoskeletal: no problem reported Neurologic: no problem reported Psychiatric: no problem reported Hematologic / Lymphatic: no unexplained weight loss Physical Exam Constitutional: well developed and well nourished Neck: normal visual inspection Respiratory: no respiratory distress Cardiovascular: Extremities: + edema Gastrointestinal (Abdomen): Inspection/Auscultation: abdomen normal to inspection; abdomen not distended Percussion/Palpation: abdomen nontender Skin: no rashes Psychiatric: A+Ox3, euthymic affect Results & Data ([facility]) Vital Signs (Past 12 Hours) Vital Signs Temp Pulse Resp BP Pulse Ox 02/03/20 09:49 63 26 H 114/45 L 96 02/03/20 09:33 68 21 119/40 L 92 02/03/20 09:30 60 24 95 02/03/20 09:19 67 36 H 112/42 L 96 02/03/20 09:03 68 28 H 109/59 L 94 02/03/20 09:00 36.6 C 65 22 96 02/03/20 08:48 66 18 122/46 L 96 02/03/20 08:33 62 25 H 114/51 L 96 02/03/20 08:30 68 26 H 96 02/03/20 08:28 62 20 123/54 L 95 02/03/20 08:19 63 26 H 90/32 L 96 02/03/20 08:04 63 20 140/55 L 97 02/03/20 08:00 37.0 C 72 22 97 02/03/20 07:48 77 23 101/72 97 02/03/20 07:34 64 24 125/51 L 97 02/03/20 07:33 36.7 C 57 L 24 125/61 96 02/03/20 07:32 36.6 C 57 L 24 121/48 L 95 02/03/20 07:30 66 23 96 02/03/20 07:19 64 21 121/48 L 96 02/03/20 07:04 66 21 113/58 L 96 02/03/20 07:00 65 28 H 89 L 02/03/20 06:49 57 L 27 H 103/38 L 93 02/03/20 06:34 62 27 H 104/54 L 95 02/03/20 06:30 58 L 27 H 89 L 02/03/20 06:19 59 L 23 107/42 L 91 02/03/20 06:15 59 L 25 H 90 02/03/20 06:03 62 27 H 116/42 L 89 L 02/03/20 06:00 71 28 H 91 02/03/20 05:48 59 L 22 108/46 L 87 L 02/03/20 05:45 64 22 89 L 02/03/20 05:33 67 24 120/50 L 90 02/03/20 05:30 72 23 84 L 02/03/20 05:18 66 24 120/60 88 L 02/03/20 05:16 36.5 C 59 L 19 119/49 L 91 02/03/20 05:15 60 27 H 93 02/03/20 05:03 60 27 H 119/49 L 91 02/03/20 05:00 66 23 89 L 02/03/20 04:48 47 L 21 105/50 L 88 L 02/03/20 04:45 52 L 17 82 L 02/03/20 04:33 63 23 112/45 L 84 L 02/03/20 04:30 68 22 85 L 02/03/20 03:26 60 18 92 02/03/20 02:00 51 L 14 94 02/03/20 01:48 59 L 12 101/52 L 94 02/03/20 01:45 58 L 17 88 L 02/03/20 01:34 60 23 101/37 L 83 L 02/03/20 01:30 56 L 21 86 L 02/03/20 01:18 64 25 H 115/54 L 88 L 02/03/20 01:15 60 19 87 L 02/03/20 01:03 69 28 H 109/45 L 93 02/03/20 01:00 53 L 18 89 L 02/03/20 00:48 61 28 H 116/43 L 90 02/03/20 00:45 64 28 H 90 02/03/20 00:33 62 17 101/59 L 96 02/03/20 00:30 66 23 95 02/03/20 00:18 63 24 89/71 L 96 02/03/20 00:15 48 L 18 95 02/03/20 00:03 53 L 15 90/67 L 94 02/03/20 00:00 62 24 111/44 L 96 02/02/20 23:48 63 16 111/44 L 95 02/02/20 23:45 57 L 16 87 L 02/02/20 23:33 54 L 18 106/41 L 94 02/02/20 23:30 57 L 23 90 02/02/20 23:21 60 20 98/50 L 91 02/02/20 23:15 59 L 16 90 02/02/20 23:03 61 20 94 02/02/20 23:00 60 8 L 94 02/02/20 22:56 61 22 95 02/02/20 22:44 36.4 C L 60 15 99/55 L 95 PG Care Time/CCT Total # of Minutes Spent Total Time Spent with Patient: Total time spent is greater than 50% in coordination of care (as documented) at patient's floor/unit and/or counseling patient: Coding Level of Care Code 60600 Initial Inpt Care Lvl 3 Diagnoses Rectal bleeding K62.5
[2020-02-03 12:14] LABS: Hemoglobin 8.2 g/dL (14.0-18.0)
[2020-02-03 12:23] LABS: BUN Creatinine Ratio 24.4 (10-20); Calcium 8.5 mg/dl (8.5-10.1); Creatinine Clr Calc Pharmacy 26.9 ml/min; Est GFR (African American) 20.3; Est GFR (Non-African American) 17.5; Magnesium 2.7 mg/dl (1.8-2.4); Phosphorus 5.6 mg/dl (2.5-4.9); Potassium 5.9 mmol/L (3.5-5.1)
--- NOTE | 2020-02-03 12:24 | Nephrology Progress Note ---
Date of Service February 03, 2020 Assessment & Plan (1) XIOMY (acute kidney injury): Clinically consistent with ATN. UA: +2 protein, >30 WBC, 5-10 RBC, and granular casts. Creatinine stable. Unfortunately remains relatively oliguric and in a positive fluid balance without response to diuretic challenge. Remains hyperkalemic but improved. If no significant improvement in urine output, I suspect Rodrigo would benefit from HD for some clearance. Medications appropriately dosed for kidney function. Digoxin held initially due to renal dysfunction. Remains relatively bradycardic but no evidence of toxicity at this time. I have discussed temporary dialysis catheter placement with the patient and his family which Dr. Estrella was agreeable to if UOP does not improve. To rule-out any partial obstruction in anticipation of potential need for LADLER, I would like to obtain a non-contrast CT abdomen and pelvis. (2) Acute hyperkalemia: Patiromer 8.4 g given again this morning. Additional 60 mg IV furosemide also provided. Potassium improved but Rodrigo remains relatively oliguric. (3) Acute on chronic diastolic (congestive) heart failure: Ideally would like to encourage a slightly negative fluid balance. (4) Acute GI bleeding: GI consult pending. NO active signs of bleeding since admission. Rivaroxaban held. (5) SHIRA (obstructive sleep apnea): CPAP QHS. (6) Admitted to intensive care unit: 30 minutes of critical care time provided today. Admission and Anticipated Discharge Date Admission Date: February 02, 2020 Subjective No acute events overnight. Uncomfortable this AM and mildly dyspneic at rest but no acute complaints otherwise. Afebrile. No bowel movement - melena or hematochezia since admission. UOP remains relatively olguric despite diuretics. Serum potassium thankfully improved. Review of Systems Review of Systems: All systems reviewed & are unremarkable except as noted in HPI & below Physical Exam Constitutional: well developed and + morbidly obese; no acute distress Eyes: + anicteric sclerae; no corneal abnormality ENMT: Mouth: no oral mucosal abnormality and oral mucous membranes not dry Neck: normal visual inspection, trachea midline and + thick neck Respiratory: + tachypneic Auscultation: + diminished lung sounds Cardiovascular: Rate/Rhythm: + irregularly irregular Heart Sounds: normal S1 and normal S2 Extremities: + edema Gastrointestinal (Abdomen): Percussion/Palpation: abdomen soft; abdomen nontender Musculoskeletal: Extremities: no cyanosis and no clubbing Skin: normal turgor; no lesions Neurologic: Motor/Sensory: no tremor and no asterixis Psychiatric: Orientation: alert and oriented x 3 Genitourinary: small amount of concentrate urine in [place] Results & Data ([facility]) Vital Signs (Past 12 Hours) Vital Signs Temp Pulse Resp BP Pulse Ox 02/03/20 12:00 63 02/03/20 09:49 63 26 H 114/45 L 96 02/03/20 09:33 68 21 119/40 L 92 02/03/20 09:30 60 24 95 02/03/20 09:19 67 36 H 112/42 L 96 02/03/20 09:03 68 28 H 109/59 L 94 02/03/20 09:00 36.6 C 65 22 96 02/03/20 08:48 66 18 122/46 L 96 02/03/20 08:33 62 25 H 114/51 L 96 02/03/20 08:30 68 26 H 96 02/03/20 08:28 62 20 123/54 L 95 02/03/20 08:19 63 26 H 90/32 L 96 02/03/20 08:04 63 20 140/55 L 97 02/03/20 08:00 37.0 C 72 22 97 02/03/20 07:48 77 23 101/72 97 02/03/20 07:34 64 24 125/51 L 97 02/03/20 07:33 36.7 C 57 L 24 125/61 96 02/03/20 07:32 36.6 C 57 L 24 121/48 L 95 02/03/20 07:30 66 23 96 02/03/20 07:19 64 21 121/48 L 96 02/03/20 07:04 66 21 113/58 L 96 02/03/20 07:00 65 28 H 89 L 02/03/20 06:49 57 L 27 H 103/38 L 93 02/03/20 06:34 62 27 H 104/54 L 95 02/03/20 06:30 58 L 27 H 89 L 02/03/20 06:19 59 L 23 107/42 L 91 02/03/20 06:15 59 L 25 H 90 02/03/20 06:03 62 27 H 116/42 L 89 L 02/03/20 06:00 71 28 H 91 02/03/20 05:48 59 L 22 108/46 L 87 L 02/03/20 05:45 64 22 89 L 02/03/20 05:33 67 24 120/50 L 90 02/03/20 05:30 72 23 84 L 02/03/20 05:18 66 24 120/60 88 L 02/03/20 05:16 36.5 C 59 L 19 119/49 L 91 02/03/20 05:15 60 27 H 93 02/03/20 05:03 60 27 H 119/49 L 91 02/03/20 05:00 66 23 89 L 02/03/20 04:48 47 L 21 105/50 L 88 L 02/03/20 04:45 52 L 17 82 L 02/03/20 04:33 63 23 112/45 L 84 L 02/03/20 04:30 68 22 85 L 02/03/20 03:26 60 18 92 02/03/20 02:00 51 L 14 94 02/03/20 01:48 59 L 12 101/52 L 94 02/03/20 01:45 58 L 17 88 L 02/03/20 01:34 60 23 101/37 L 83 L 02/03/20 01:30 56 L 21 86 L 02/03/20 01:18 64 25 H 115/54 L 88 L 02/03/20 01:15 60 19 87 L 02/03/20 01:03 69 28 H 109/45 L 93 02/03/20 01:00 53 L 18 89 L 02/03/20 00:48 61 28 H 116/43 L 90 02/03/20 00:45 64 28 H 90 02/03/20 00:33 62 17 101/59 L 96 02/03/20 00:30 66 23 95 Laboratory Results Laboratory Results - last 24 hr 02/02/20 02/02/20 02/02/20 12:22 12:22 12:22 WBC 8.92 RBC 3.03 L Hgb 6.7 L* POC Hgb Hct 25.9 L POC Hct MCV 85.5 MCH 22.1 L MCHC 25.9 L RDW Std Deviation 63.4 H RDW Coeff of Ezekiel 20.4 H Plt Count 357 MPV 11.3 H Immature Gran % (Auto) 0.1 Neut % (Auto) 74.6 Lymph % (Auto) 9.0 Cassia % (Auto) 15.5 Eos % (Auto) 0.7 Baso % (Auto) 0.1 Neut # (Auto) 6.66 H Lymph # (Auto) 0.80 L Cassia # (Auto) 1.38 H Eos # (Auto) 0.06 Baso # (Auto) 0.01 Immature Gran # (Auto) 0.01 Absolute Nucleated RBC 0.08 H Nucleated RBC % (auto) 0.9 Hypochromasia Present Ovalocytes 1+ PT 23.4 H INR 2.3 H APTT 34.3 H PTT Ratio 1.2 VBG pH VBG pCO2 VBG pO2 VBG HCO3 VBG O2 Saturation VBG Base Excess Barometric Pressure POC Sodium Sodium 137 POC Potassium Potassium 7.7 H* POC Chloride Chloride 104 Carbon Dioxide 27 POC Total CO2 Anion Gap 6.0 POC Anion Gap POC BUN BUN 77 H Creatinine 3.55 H POC Creatinine Est Cr Clr Drug Dosing Not Reportable Est GFR ( Amer) 18.8 Est GFR (Non-Af Amer) 16.2 BUN/Creatinine Ratio 21.6 H Glucose 106 H POC Glucose POC Glucose (other) Lactate Calcium 8.8 POC Ioniz Calcium Magaly Phosphorus Magnesium Total Bilirubin 0.8 AST 38 H ALT 20 Alkaline Phosphatase 57 Total Creatine Kinase Troponin I 0.131 H* Total Protein 7.0 Albumin 3.1 L Globulin 3.9 Albumin/Globulin Ratio 0.8 L Procalcitonin Urine Color Urine Appearance Urine pH Ur Specific Lucile Urine Protein Urine Glucose (UA) Urine Ketones Urine Blood Urine Nitrite Urine Bilirubin Urine Urobilinogen Ur Leukocyte Esterase Urine WBC (Auto) Urine RBC (Auto) U Hyaline Cast (Auto) U Epithel Cells (Auto) Urine Bacteria (Auto) Ur Renal Epithelial Cell Granular Casts Urine Yeast Urine Osmolality Ur Random Creatinine Ur Random Urea Nitrogn Urine Sodium Urine Potassium Urine Chloride Nasal Screen MRSA (PCR) Stool Occult Bld Scrn POC Stool Occult Blood Digoxin Blood Type Antibody Screen Crossmatch 02/02/20 02/02/20 02/02/20 12:30 13:45 15:24 WBC RBC Hgb POC Hgb 7.1 L Hct POC Hct 21 L MCV MCH MCHC RDW Std Deviation RDW Coeff of Ezekiel Plt Count MPV Immature Gran % (Auto) Neut % (Auto) Lymph % (Auto) Cassia % (Auto) Eos % (Auto) Baso % (Auto) Neut # (Auto) Lymph # (Auto) Cassia # (Auto) Eos # (Auto) Baso # (Auto) Immature Gran # (Auto) Absolute Nucleated RBC Nucleated RBC % (auto) Hypochromasia Ovalocytes PT INR APTT PTT Ratio VBG pH VBG pCO2 VBG pO2 VBG HCO3 VBG O2 Saturation VBG Base Excess Barometric Pressure POC Sodium 139 Sodium POC Potassium 7.3 H* Potassium POC Chloride 99 L Chloride Carbon Dioxide POC Total CO2 32 H Anion Gap POC Anion Gap 17.0 POC BUN 82 H BUN Creatinine POC Creatinine 3.4 H Est Cr Clr Drug Dosing Est GFR ( Amer) Est GFR (Non-Af Amer) BUN/Creatinine Ratio Glucose POC Glucose POC Glucose (other) 107 H Lactate Calcium POC Ioniz Calcium Magaly 1.05 L Phosphorus Magnesium Total Bilirubin AST ALT Alkaline Phosphatase Total Creatine Kinase Troponin I Total Protein Albumin Globulin Albumin/Globulin Ratio Procalcitonin Urine Color Urine Appearance Urine pH Ur Specific Lucile Urine Protein Urine Glucose (UA) Urine Ketones Urine Blood Urine Nitrite Urine Bilirubin Urine Urobilinogen Ur Leukocyte Esterase Urine WBC (Auto) Urine RBC (Auto) U Hyaline Cast (Auto) U Epithel Cells (Auto) Urine Bacteria (Auto) Ur Renal Epithelial Cell Granular Casts Urine Yeast Urine Osmolality Ur Random Creatinine Ur Random Urea Nitrogn Urine Sodium Urine Potassium Urine Chloride Nasal Screen MRSA (PCR) Negative Stool Occult Bld Scrn POC Stool Occult Blood Digoxin Blood Type A Positive Antibody Screen NEGATIVE Crossmatch See Detail 02/02/20 02/02/20 02/02/20 15:52 15:52 15:52 WBC RBC Hgb POC Hgb Hct POC Hct MCV MCH MCHC RDW Std Deviation RDW Coeff of Ezekiel Plt Count MPV Immature Gran % (Auto) Neut % (Auto) Lymph % (Auto) Cassia % (Auto) Eos % (Auto) Baso % (Auto) Neut # (Auto) Lymph # (Auto) Cassia # (Auto) Eos # (Auto) Baso # (Auto) Immature Gran # (Auto) Absolute Nucleated RBC Nucleated RBC % (auto) Hypochromasia Ovalocytes PT INR APTT PTT Ratio VBG pH VBG pCO2 VBG pO2 VBG HCO3 VBG O2 Saturation VBG Base Excess Barometric Pressure POC Sodium Sodium 141 POC Potassium Potassium 6.6 H* POC Chloride Chloride 106 Carbon Dioxide 32 POC Total CO2 Anion Gap 4.0 POC Anion Gap POC BUN BUN 81 H Creatinine 3.48 H POC Creatinine Est Cr Clr Drug Dosing 25.6 Est GFR ( Amer) 19.2 Est GFR (Non-Af Amer) 16.6 BUN/Creatinine Ratio 23.2 H Glucose 58 L POC Glucose POC Glucose (other) Lactate Calcium 8.6 POC Ioniz Calcium Magaly Phosphorus 5.6 H Magnesium 2.9 H Total Bilirubin AST ALT Alkaline Phosphatase Total Creatine Kinase 59 Troponin I Total Protein Albumin Globulin Albumin/Globulin Ratio Procalcitonin 0.21 Urine Color Urine Appearance Urine pH Ur Specific Lucile Urine Protein Urine Glucose (UA) Urine Ketones Urine Blood Urine Nitrite Urine Bilirubin Urine Urobilinogen Ur Leukocyte Esterase Urine WBC (Auto) Urine RBC (Auto) U Hyaline Cast (Auto) U Epithel Cells (Auto) Urine Bacteria (Auto) Ur Renal Epithelial Cell Granular Casts Urine Yeast Urine Osmolality Ur Random Creatinine Ur Random Urea Nitrogn Urine Sodium Urine Potassium Urine Chloride Nasal Screen MRSA (PCR) Stool Occult Bld Scrn POC Stool Occult Blood Digoxin 2.9 H* Blood Type Antibody Screen Crossmatch 02/02/20 02/02/20 02/02/20 15:52 16:13 21:15 WBC RBC Hgb POC Hgb Hct POC Hct MCV MCH MCHC RDW Std Deviation RDW Coeff of Ezekiel Plt Count MPV Immature Gran % (Auto) Neut % (Auto) Lymph % (Auto) Cassia % (Auto) Eos % (Auto) Baso % (Auto) Neut # (Auto) Lymph # (Auto) Cassia # (Auto) Eos # (Auto) Baso # (Auto) Immature Gran # (Auto) Absolute Nucleated RBC Nucleated RBC % (auto) Hypochromasia Ovalocytes PT INR APTT PTT Ratio VBG pH VBG pCO2 VBG pO2 VBG HCO3 VBG O2 Saturation VBG Base Excess Barometric Pressure POC Sodium Sodium POC Potassium Potassium POC Chloride Chloride Carbon Dioxide POC Total CO2 Anion Gap POC Anion Gap POC BUN BUN Creatinine POC Creatinine Est Cr Clr Drug Dosing Est GFR ( Amer) Est GFR (Non-Af Amer) BUN/Creatinine Ratio Glucose POC Glucose 71 POC Glucose (other) Lactate 1.7 Calcium POC Ioniz Calcium Magaly Phosphorus Magnesium Total Bilirubin AST ALT Alkaline Phosphatase Total Creatine Kinase Troponin I Total Protein Albumin Globulin Albumin/Globulin Ratio Procalcitonin Urine Color Urine Appearance Urine pH Ur Specific Lucile Urine Protein Urine Glucose (UA) Urine Ketones Urine Blood Urine Nitrite Urine Bilirubin Urine Urobilinogen Ur Leukocyte Esterase Urine WBC (Auto) Urine RBC (Auto) U Hyaline Cast (Auto) U Epithel Cells (Auto) Urine Bacteria (Auto) Ur Renal Epithelial Cell Granular Casts Urine Yeast Urine Osmolality Ur Random Creatinine Ur Random Urea Nitrogn Urine Sodium 23 Urine Potassium 58.9 Urine Chloride 32 Nasal Screen MRSA (PCR) Stool Occult Bld Scrn POC Stool Occult Blood Digoxin Blood Type Antibody Screen Crossmatch 02/02/20 02/02/20 02/02/20 21:15 21:39 21:39 WBC 9.49 RBC 2.99 L Hgb 7.0 L POC Hgb Hct 25.3 L POC Hct MCV 84.6 MCH 23.4 L MCHC 27.7 L RDW Std Deviation 58.9 H RDW Coeff of Ezekiel 19.2 H Plt Count 287 MPV 10.6 H Immature Gran % (Auto) 0.2 Neut % (Auto) 73.7 Lymph % (Auto) 9.8 Cassia % (Auto) 15.4 Eos % (Auto) 0.7 Baso % (Auto) 0.2 Neut # (Auto) 6.99 H Lymph # (Auto) 0.93 L Cassia # (Auto) 1.46 H Eos # (Auto) 0.07 Baso # (Auto) 0.02 Immature Gran # (Auto) 0.02 Absolute Nucleated RBC Nucleated RBC % (auto) Hypochromasia Present Ovalocytes 1+ PT INR APTT PTT Ratio VBG pH VBG pCO2 VBG pO2 VBG HCO3 VBG O2 Saturation VBG Base Excess Barometric Pressure POC Sodium Sodium 140 POC Potassium Potassium 6.8 H* POC Chloride Chloride 104 Carbon Dioxide 33 H POC Total CO2 Anion Gap 3.0 POC Anion Gap POC BUN BUN 79 H Creatinine 3.47 H POC Creatinine Est Cr Clr Drug Dosing 25.7 Est GFR ( Amer) 19.3 Est GFR (Non-Af Amer) 16.6 BUN/Creatinine Ratio 22.7 H Glucose 90 POC Glucose POC Glucose (other) Lactate Calcium 8.5 POC Ioniz Calcium Magaly Phosphorus Magnesium Total Bilirubin AST ALT Alkaline Phosphatase Total Creatine Kinase Troponin I Total Protein Albumin Globulin Albumin/Globulin Ratio Procalcitonin Urine Color Dark Yellow Urine Appearance Turbid A Urine pH 5.0 Ur Specific Lucile 1.019 Urine Protein 2+ H Urine Glucose (UA) Negative Urine Ketones Negative Urine Blood 2+ H Urine Nitrite Negative Urine Bilirubin Negative Urine Urobilinogen Negative Ur Leukocyte Esterase 2+ H Urine WBC (Auto) >30 H Urine RBC (Auto) 5-10 H U Hyaline Cast (Auto) 1-5 U Epithel Cells (Auto) >30 H Urine Bacteria (Auto) 1+ H Ur Renal Epithelial Cell Not Reportable Granular Casts 1-5 H Urine Yeast Not Reportable Urine Osmolality Ur Random Creatinine Ur Random Urea Nitrogn Urine Sodium Urine Potassium Urine Chloride Nasal Screen MRSA (PCR) Stool Occult Bld Scrn POC Stool Occult Blood Digoxin Blood Type Antibody Screen Crossmatch 02/03/20 02/03/20 02/03/20 03:18 03:18 03:18 WBC 10.37 RBC 3.00 L Hgb 7.5 L POC Hgb Hct 25.5 L POC Hct MCV 85.0 MCH 25.0 MCHC 29.4 L RDW Std Deviation 58.5 H RDW Coeff of Ezekiel 18.9 H Plt Count 263 MPV 10.9 H Immature Gran % (Auto) 0.1 Neut % (Auto) 73.2 Lymph % (Auto) 18.0 Cassia % (Auto) 7.4 Eos % (Auto) 1.2 Baso % (Auto) 0.1 Neut # (Auto) 7.59 H Lymph # (Auto) 1.87 Cassia # (Auto) 0.77 H Eos # (Auto) 0.12 Baso # (Auto) 0.01 Immature Gran # (Auto) 0.01 Absolute Nucleated RBC 0.06 H Nucleated RBC % (auto) 0.6 Hypochromasia Present Ovalocytes 1+ PT 16.9 H INR 1.6 H APTT PTT Ratio VBG pH VBG pCO2 VBG pO2 VBG HCO3 VBG O2 Saturation VBG Base Excess Barometric Pressure POC Sodium Sodium 140 POC Potassium Potassium 5.9 H POC Chloride Chloride 105 Carbon Dioxide 32 POC Total CO2 Anion Gap 3.0 POC Anion Gap POC BUN BUN 82 H Creatinine 3.33 H POC Creatinine Est Cr Clr Drug Dosing 26.8 Est GFR ( Amer) 20.3 Est GFR (Non-Af Amer) 17.5 BUN/Creatinine Ratio 24.7 H Glucose 77 POC Glucose POC Glucose (other) Lactate Calcium 8.3 L POC Ioniz Calcium Magaly Phosphorus 5.4 H Magnesium 2.8 H Total Bilirubin AST ALT Alkaline Phosphatase Total Creatine Kinase Troponin I 0.274 H* Total Protein Albumin Globulin Albumin/Globulin Ratio Procalcitonin Urine Color Urine Appearance Urine pH Ur Specific Lucile Urine Protein Urine Glucose (UA) Urine Ketones Urine Blood Urine Nitrite Urine Bilirubin Urine Urobilinogen Ur Leukocyte Esterase Urine WBC (Auto) Urine RBC (Auto) U Hyaline Cast (Auto) U Epithel Cells (Auto) Urine Bacteria (Auto) Ur Renal Epithelial Cell Granular Casts Urine Yeast Urine Osmolality Ur Random Creatinine Ur Random Urea Nitrogn Urine Sodium Urine Potassium Urine Chloride Nasal Screen MRSA (PCR) Stool Occult Bld Scrn POC Stool Occult Blood Digoxin Blood Type Antibody Screen Crossmatch 02/03/20 02/03/20 02/03/20 03:18 03:18 08:46 WBC RBC Hgb POC Hgb Hct POC Hct MCV MCH MCHC RDW Std Deviation RDW Coeff of Ezekiel Plt Count MPV Immature Gran % (Auto) Neut % (Auto) Lymph % (Auto) Cassia % (Auto) Eos % (Auto) Baso % (Auto) Neut # (Auto) Lymph # (Auto) Cassia # (Auto) Eos # (Auto) Baso # (Auto) Immature Gran # (Auto) Absolute Nucleated RBC Nucleated RBC % (auto) Hypochromasia Ovalocytes PT INR APTT PTT Ratio VBG pH 7.37 VBG pCO2 56 H VBG pO2 31 VBG HCO3 31 VBG O2 Saturation < 60.0 VBG Base Excess 5.3 Barometric Pressure 737.9 POC Sodium Sodium POC Potassium Potassium POC Chloride Chloride Carbon Dioxide POC Total CO2 Anion Gap POC Anion Gap POC BUN BUN Creatinine POC Creatinine Est Cr Clr Drug Dosing Est GFR ( Amer) Est GFR (Non-Af Amer) BUN/Creatinine Ratio Glucose POC Glucose 127 H POC Glucose (other) Lactate Calcium POC Ioniz Calcium Magaly Phosphorus Magnesium Total Bilirubin AST ALT Alkaline Phosphatase Total Creatine Kinase Troponin I Total Protein Albumin Globulin Albumin/Globulin Ratio Procalcitonin Urine Color Urine Appearance Urine pH Ur Specific Lucile Urine Protein Urine Glucose (UA) Urine Ketones Urine Blood Urine Nitrite Urine Bilirubin Urine Urobilinogen Ur Leukocyte Esterase Urine WBC (Auto) Urine RBC (Auto) U Hyaline Cast (Auto) U Epithel Cells (Auto) Urine Bacteria (Auto) Ur Renal Epithelial Cell Granular Casts Urine Yeast Urine Osmolality Ur Random Creatinine Ur Random Urea Nitrogn Urine Sodium Urine Potassium Urine Chloride Nasal Screen MRSA (PCR) Stool Occult Bld Scrn POC Stool Occult Blood Digoxin 2.9 H* Blood Type Antibody Screen Crossmatch 02/03/20 02/03/20 02/03/20 08:50 08:50 08:50 WBC RBC Hgb POC Hgb Hct POC Hct MCV MCH MCHC RDW Std Deviation RDW Coeff of Ezekiel Plt Count MPV Immature Gran % (Auto) Neut % (Auto) Lymph % (Auto) Cassia % (Auto) Eos % (Auto) Baso % (Auto) Neut # (Auto) Lymph # (Auto) Cassia # (Auto) Eos # (Auto) Baso # (Auto) Immature Gran # (Auto) Absolute Nucleated RBC Nucleated RBC % (auto) Hypochromasia Ovalocytes PT INR APTT PTT Ratio VBG pH VBG pCO2 VBG pO2 VBG HCO3 VBG O2 Saturation VBG Base Excess Barometric Pressure POC Sodium Sodium POC Potassium Potassium POC Chloride Chloride Carbon Dioxide POC Total CO2 Anion Gap POC Anion Gap POC BUN BUN Creatinine POC Creatinine Est Cr Clr Drug Dosing Est GFR ( Amer) Est GFR (Non-Af Amer) BUN/Creatinine Ratio Glucose POC Glucose POC Glucose (other) Lactate Calcium POC Ioniz Calcium Magaly Phosphorus Magnesium Total Bilirubin AST ALT Alkaline Phosphatase Total Creatine Kinase Troponin I Total Protein Albumin Globulin Albumin/Globulin Ratio Procalcitonin Urine Color Urine Appearance Urine pH Ur Specific Lucile Urine Protein Urine Glucose (UA) Urine Ketones Urine Blood Urine Nitrite Urine Bilirubin Urine Urobilinogen Ur Leukocyte Esterase Urine WBC (Auto) Urine RBC (Auto) U Hyaline Cast (Auto) U Epithel Cells (Auto) Urine Bacteria (Auto) Ur Renal Epithelial Cell Granular Casts Urine Yeast Urine Osmolality 340 L Ur Random Creatinine 152.0 Ur Random Urea Nitrogn 475 Urine Sodium Urine Potassium Urine Chloride Nasal Screen MRSA (PCR) Stool Occult Bld Scrn POC Stool Occult Blood Digoxin Blood Type Antibody Screen Crossmatch 02/03/20 02/03/20 02/03/20 08:59 10:34 10:34 WBC RBC Hgb 8.4 L POC Hgb Hct 29.6 L POC Hct MCV MCH MCHC RDW Std Deviation RDW Coeff of Ezekiel Plt Count MPV Immature Gran % (Auto) Neut % (Auto) Lymph % (Auto) Cassia % (Auto) Eos % (Auto) Baso % (Auto) Neut # (Auto) Lymph # (Auto) Cassia # (Auto) Eos # (Auto) Baso # (Auto) Immature Gran # (Auto) Absolute Nucleated RBC Nucleated RBC % (auto) Hypochromasia Ovalocytes PT INR APTT PTT Ratio VBG pH VBG pCO2 VBG pO2 VBG HCO3 VBG O2 Saturation VBG Base Excess Barometric Pressure POC Sodium Sodium POC Potassium Potassium POC Chloride Chloride Carbon Dioxide POC Total CO2 Anion Gap POC Anion Gap POC BUN BUN Creatinine POC Creatinine Est Cr Clr Drug Dosing Est GFR ( Amer) Est GFR (Non-Af Amer) BUN/Creatinine Ratio Glucose POC Glucose POC Glucose (other) Lactate Calcium POC Ioniz Calcium Magaly Phosphorus Magnesium Total Bilirubin AST ALT Alkaline Phosphatase Total Creatine Kinase Troponin I Total Protein Albumin Globulin Albumin/Globulin Ratio Procalcitonin Urine Color Urine Appearance Urine pH Ur Specific Lucile Urine Protein Urine Glucose (UA) Urine Ketones Urine Blood Urine Nitrite Urine Bilirubin Urine Urobilinogen Ur Leukocyte Esterase Urine WBC (Auto) Urine RBC (Auto) U Hyaline Cast (Auto) U Epithel Cells (Auto) Urine Bacteria (Auto) Ur Renal Epithelial Cell Granular Casts Urine Yeast Urine Osmolality Ur Random Creatinine Ur Random Urea Nitrogn Urine Sodium Urine Potassium Urine Chloride Nasal Screen MRSA (PCR) Stool Occult Bld Scrn Positive A POC Stool Occult Blood Cancelled Digoxin Blood Type Antibody Screen Crossmatch 02/03/20 02/03/20 02/03/20 11:50 11:50 11:50 WBC RBC Hgb 8.2 L POC Hgb Hct 29.0 L POC Hct MCV MCH MCHC RDW Std Deviation RDW Coeff of Ezekiel Plt Count MPV Immature Gran % (Auto) Neut % (Auto) Lymph % (Auto) Cassia % (Auto) Eos % (Auto) Baso % (Auto) Neut # (Auto) Lymph # (Auto) Cassia # (Auto) Eos # (Auto) Baso # (Auto) Immature Gran # (Auto) Absolute Nucleated RBC Nucleated RBC % (auto) Hypochromasia Ovalocytes PT INR APTT PTT Ratio VBG pH VBG pCO2 VBG pO2 VBG HCO3 VBG O2 Saturation VBG Base Excess Barometric Pressure POC Sodium Sodium 140 POC Potassium Potassium 5.9 H POC Chloride Chloride 104 Carbon Dioxide 32 POC Total CO2 Anion Gap 5.0 POC Anion Gap POC BUN BUN 81 H Creatinine 3.32 H POC Creatinine Est Cr Clr Drug Dosing 26.9 Est GFR ( Amer) 20.3 Est GFR (Non-Af Amer) 17.5 BUN/Creatinine Ratio 24.4 H Glucose 79 POC Glucose POC Glucose (other) Lactate Calcium 8.5 POC Ioniz Calcium Magaly Phosphorus 5.6 H Magnesium 2.7 H Total Bilirubin AST ALT Alkaline Phosphatase Total Creatine Kinase Troponin I Total Protein Albumin Globulin Albumin/Globulin Ratio Procalcitonin Urine Color Urine Appearance Urine pH Ur Specific Lucile Urine Protein Urine Glucose (UA) Urine Ketones Urine Blood Urine Nitrite Urine Bilirubin Urine Urobilinogen Ur Leukocyte Esterase Urine WBC (Auto) Urine RBC (Auto) U Hyaline Cast (Auto) U Epithel Cells (Auto) Urine Bacteria (Auto) Ur Renal Epithelial Cell Granular Casts Urine Yeast Urine Osmolality Ur Random Creatinine Ur Random Urea Nitrogn Urine Sodium Urine Potassium Urine Chloride Nasal Screen MRSA (PCR) Stool Occult Bld Scrn POC Stool Occult Blood Digoxin Blood Type Antibody Screen Crossmatch PG Care Time/CCT Total # of Minutes Spent Total Time Spent with Patient: Total time spent is greater than 50% in coordination of care (as documented) at patient's floor/unit and/or counseling patient: Coding Level of Care Code 06504 Subseq Hosp Care Lvl 3 Diagnoses XIOMY (acute kidney injury) N17.9 Acute hyperkalemia E87.5 Acute on chronic diastolic (congestive) heart failure I50.33 Acute GI bleeding K92.2 SHIRA (obstructive sleep apnea) G47.33 Admitted to intensive care unit Z78.9
--- NOTE | 2020-02-03 13:10 | CT Scan Report ---
ABDOMEN AND PELVIS CT WITHOUT CONTRAST CT DOSE: 2115.48 mGy.cm HISTORY: acute kidney injury TECHNIQUE: Multiaxial CT images of the abdomen and pelvis were performed without contrast. A dose lo wering technique was utilized adhering to the principles of ALARA. COMPARISON STUDY: MRI of the abdomen 12/19/2018, chest CT 12/19/2018 FINDINGS: Small right and [id number]-dwullwgi left pleural effusions with dependent left greater than right bibas ilar consolidation suggestive of atelectasis. Emphysema. No pneumatosis or pneumoperitoneum. Study is limited secondary to patient body habitus. Cardiomegaly. Coronary artery calcifications. Spleen, lucero creas and right adrenal gland are unremarkable. Unchanged 13 mm left adrenal gland adenoma. Mild hepa tic steatosis. Unremarkable gallbladder. There are approximately 3-4 nonobstructing calculi left kidney measuring up to 4 mm. Unremarkable rig ht kidney. No ureteral calculi or obstructive uropathy. Decompressed or bladder. Pelvis is suboptimal ly visualized secondary to streak artifact from bilateral hip total joint arthroplasties. Uterus appe ars surgically absent. No adnexal mass lesion. Extensive calcified plaque of the abdominal aorta with out aneurysm. No adenopathy. Ingested fat versus lipoma of the distal gastric body, 1.3 cm. Mild colonic diverticulosis. No bowel obstruction or bowel wall thickening. Visualized appendix is unremarkable. Small volume of abdominal pelvic ascites with anasarca. No acute fracture. Posterior interbody corwin fusion at L2-S1. The hardwar e appears intact. IMPRESSION: 1. Nonobstructing left nephrolithiasis. No ureteral calculi or obstructive uropathy. 2. Cardiomegaly with fluid overload manifested by left greater than right pleural effusions, small vo lume of abdominopelvic ascites and anasarca. 3. Hepatic steatosis. 4. Mild colonic diverticulosis. 5. Additional findings as above. ACT 112: Negative or not required by law. The above report was generated using voice recognition software. It may contain grammatical, syntax o r spelling errors. Electronically signed by: Kvng Santana M.D. 02/03/2020 1:09 PM
[2020-02-03 14:05] LABS: Hepatitis B Surface Ab Quant < 3.10 mIU/mL (>or=10mIU/mL Immune); Hepatitis B Surface Antibody Non-Immune
[2020-02-03 14:16] LABS: Hepatitis B Surface Antigen Neg (Neg)
--- NOTE | 2020-02-03 14:23 | XRay Report ---
SINGLE VIEW CHEST CLINICAL HISTORY: Central venous catheter placement attempt. FINDINGS: An AP, portable, upright chest radiograph is compared to study performed earlier the same d ay 02/03/2020. Impression degraded The heart is enlarged noting atherosclerotic calcification of the t horacic aorta. There is pulmonary vascular congestion with evidence of interstitial edema. There are small pleural effusions with bibasilar consolidation. No pneumothorax is seen. The skeletal structure s are osteopenic. The bony thorax is grossly intact. A right shoulder arthroplasty is in place. IMPRESSION: 1. No pneumothorax is identified post procedure. 2. Cardiomegaly with evidence of congestive failure and interstitial edema. This is unchanged from pr evious. 3. Small pleural effusions with bibasilar consolidation ACT 112: Negative or not required by law. Electronically signed by: Nicolas Duenas M.D. 02/03/2020 2:22 PM
[2020-02-03] MEDS ORDERED: DIGOXIN 0.125 MG TAB PO SCH (16:00)
--- NOTE | 2020-02-03 16:58 | Procedure Note ---
Procedure Note Date of Service February 03, 2020 Procedure: Inserting dialysis catheter Tearoom Host/Hostess: Dr. Opal Estrella Indication: Acute renal failure Consent: signed by patient and verified with timeout prior to procedure. Anesthesia: 1% lidocaine without epinephrine local. Procedure: Consent was verified and timeout performed. Appropriate imaging studies were reviewed prior to the procedure. Right IJ was tried first but guidewire was unable to be passed after second length and the procedure was terminated. Chest x-ray postprocedure did not show any pneumothorax. Under aseptic and sterile condition, left femoral vein was accessed under direct ultrasound guidance. Guidewire was confirmed to be within the lumen of vein with the help of ultrasound. Catheter was introduced via Seldinger technique. Guide a wire was removed. Good non-pulsatile blood flow was appreciated from all the ports. The catheter was placed at 24 cm and sutured in place. BioPatch was applied to the catheter and a sterile Tegaderm dressing was applied over the catheter with careful attention to sterility. Patient tolerated the procedure well. Blood loss: Less than 5 cc Complications: None Coding CPT Codes Tubes, Drains, and Vasc Access - Tubes, Drains, and Vasc Access: [id number] Insertion of cannula for hemodialysis ([id number]) Tubes, Drains, and Vasc Access - Tubes, Drains, and Vasc Access: [id number] Ultrasound Guidance For Vascular ([id number]) [facility] [place] Procedure Codes (Charges) Tubes, Drains, and Vasc Access Procedure 1: Tubes, Drains, and Vasc Access: [id number] Insertion of cannula for hemodialysis Procedure 2: Tubes, Drains, and Vasc Access: [id number] Ultrasound Guidance For Vascular
[2020-02-03 19:04] LABS: Hematocrit (blood only) 29.8 % (42-52); Hemoglobin 8.3 g/dL (14.0-18.0)
--- NOTE | 2020-02-03 19:17 | Billing Data ---
Date of Service February 03, 2020 Coding Level of Care Code Critical Care 1st 30-74 mins Time Spent (min) 37
[2020-02-03] MEDS: MONTELUKAST SODIUM 10 MG TABLET PO SCH (20:08)
[2020-02-04 04:35] LABS: Hematocrit (blood only) 27.9 % (42-52); Hemoglobin 7.7 g/dL (14.0-18.0); Mean Corpuscular Hemoglobin 24.1 pg (25-34); Mean Corpuscular Hgb Conc 27.6 g/dL (32-36); Mean Corpuscular Volume 87.2 fL (80-100); Mean Platelet Volume 10.9 fL (7.4-10.4); Nucleated RBC # (auto) 0.03 K/uL (0-0); Nucleated RBC % (auto) 0.3 %; Platelet Count 249 K/uL (130-400); RDW Coefficient of Variation 19.1 % (11.5-14.5); RDW Standard Deviation 61.8 fL (36.4-46.3); White Blood Count 10.04 K/uL (4.8-10.8)
[2020-02-04 05:09] LABS: BUN Creatinine Ratio 25.4 (10-20); Calcium 7.9 mg/dl (8.5-10.1); Creatinine Clr Calc Pharmacy 34.3 ml/min; Est GFR (African American) 27.2; Est GFR (Non-African American) 23.5; Magnesium 2.6 mg/dl (1.8-2.4); Potassium 4.8 mmol/L (3.5-5.1)
--- NOTE | 2020-02-04 07:12 | Hospitalist Progress Note ---
Date of Service February 04, 2020 Assessment & Plan (1) Acute GI bleeding: Patient has an acute gastrointestinal bleed, hgb in the 7 gm range if needed can transuse with dialysis acute blood loss anemia, ongoing for about 5 days. hold rivaroxaban previous significant work up in 2019 with endosocpes and capsule was unrevealing (2) Acute hyperkalemia: potassium was elevated at 7.7, after treatment has normalized followed by consult nephrology patient did receive additional diuretics nephrology is considering dialysis (3) Acute on chronic diastolic (congestive) heart failure: Paient appears to be fluid overloaded, this may be complicated by his poor renal function. nephrology oversight for dialysis (4) Elevated troponin: likely demand ischemia in the face of severe anemia (5) Afib: pt is with rate control, atenolol digoxin is supratherapeutic, was given digibind (6) XIOMY (acute kidney injury): acute kideny injury in history of ckd 3, most likley from intravascular volume loss, complicated by / causing digoxin toxicity, on digibine, and attempt to promote urine production with loop diuretic to help lower potassium, dialysis by neprhology (7) Chronic obstructive pulmonary disease: does not appear to be in COPD exacerbation at this time. will resume home meds-trelegy, singular and nebulized albuterol and atrovent (8) Abnormal urinalysis: markedly abnormal will send culture, syed from [facility], pt did grow strep consider a contaminant unless he develops symptoms (9) SHIRA (obstructive sleep apnea): bipap at night. (10) DVT prophylaxis: scd as chemoprophylaxis contraindicated in pt with Acute blood loss anemia (11) Digoxin toxicity: pt did have digibind, Admission and Anticipated Discharge Date Admission Date: February 02, 2020 Subjective Patient is stable respiratory status however he overlooked over looks uncomfortable with significant third space and tissue fluid. Nephrology is planning for additional dialysis as needed while is ATN is still having sluggish urine output. Additionally his digoxin level was supratherapeutic today and Digibind was given. Remainder of his electrolytes are improving although he still has some elevations of magnesium and phosphorus his potassium and bicarb as well as anion gap are stable. No plans of interventional gastroenterology at this time Review of Systems Review of Systems: Continues with moderate distress and fatigue no headache, blurry or double vision no speech or swallowing issues no chest pain, pressure or palpitations Dyspnea on exertion, no significant cough or wheezes no abdominal pain, nausea or vomiting, diarrhea or constipation no dysuria, hematuria or frequency no focal joint pain significant peripheral swelling no back pain, CVA tenderness or radicular pain no bruising, bleeding or rashes no focal signs of weakness or numbness or altered sensation no complaints of anxiety or depression. Physical Exam Physical Exam: The patient appeared in moderate distress, remains swollen and uncomfortable Vital signs as documented. Head exam is normocephalic atraumatic no scleral icterus Neck is with difficult to asses JVD due to morbid obesity, no carotid bruits. Lungs are diminished at the bases Cardiac exam, irregular rate controlled with [place] Abdominal exam reveals normal bowel sounds, soft non tender, no masses, distended Extremities are 2+ edematous and both pedal pulses are present Neurologic exam is alert and oriented, no focal loss of strength or sensation Skin is without bruises Psychologically is without concerns for anxiety or depression. Results & Data Results & Data ([facility]) Vital Signs (Past 12 Hours) Vital Signs Temp Pulse Resp BP Pulse Ox 02/04/20 06:39 63 125/52 L 97 02/04/20 06:00 70 97 02/04/20 05:39 77 141/65 H 97 02/04/20 05:00 69 99 02/04/20 04:45 72 98 02/04/20 04:39 71 130/62 96 02/04/20 04:30 96 02/04/20 04:15 64 25 H 94 02/04/20 04:00 66 21 95 02/04/20 03:45 64 16 95 02/04/20 03:39 65 16 132/51 L 89 L 02/04/20 03:30 75 25 H 90 02/04/20 03:15 68 21 96 02/04/20 03:12 76 18 96 02/04/20 03:00 66 18 87 L 02/04/20 02:45 60 17 88 L 02/04/20 02:39 73 22 113/55 L 90 02/04/20 01:39 72 21 132/57 L 90 02/04/20 01:00 78 17 89 L 02/04/20 00:39 72 22 120/61 89 L 02/03/20 23:40 63 02/03/20 23:39 63 20 123/38 L 89 L 02/03/20 23:00 98.2 F 72 23 90 02/03/20 22:36 68 23 93 02/03/20 22:35 65 19 115/46 L 87 L 02/03/20 22:05 66 20 117/51 L 85 L 02/03/20 22:00 64 19 89 L 02/03/20 21:49 64 23 122/49 L 88 L 02/03/20 21:35 68 25 H 106/52 L 90 02/03/20 21:20 69 H 96 02/03/20 21:04 74 29 H 123/48 L 96 02/03/20 21:00 67 30 H 97 02/03/20 20:50 67 26 H 129/52 L 95 02/03/20 20:35 79 27 H 109/54 L 92 02/03/20 20:19 69 17 120/54 L 100 02/03/20 20:04 69 30 H 116/60 98 02/03/20 20:00 65 23 98 02/03/20 19:59 69 02/03/20 19:49 71 23 122/45 L 100 02/03/20 19:34 66 30 H 104/52 L 97 02/03/20 19:19 64 30 H 118/49 L 100 02/03/20 19:14 72 23 129/39 L 95 PG Care Time/CCT Total # of Minutes Spent Total Time Spent with Patient: Total time spent is greater than 50% in coordination of care (as documented) at patient's floor/unit and/or counseling patient: Coding Level of Care Code 74632 Subseq Hosp Care Lvl 3 Diagnoses Acute GI bleeding K92.2 Acute hyperkalemia E87.5 Acute on chronic diastolic (congestive) heart failure I50.33 Elevated troponin R77.8 Afib I48.91 XIOMY (acute kidney injury) N17.9 Chronic obstructive pulmonary disease J44.9 Abnormal urinalysis R82.90 SHIRA (obstructive sleep apnea) G47.33 DVT prophylaxis Z29.9 Digoxin toxicity T46.0X1A
--- NOTE | 2020-02-04 07:52 | Critical Care Progress Note ---
Date of Service February 04, 2020 Assessment & Plan (1) Admitted to intensive care unit: Reason Critically Ill: Mr. Anderson is a 74 yo gentleman who was admitted with a GI bleed, found to have XIOMY with hyperkalemia on presentation. He was sent to the ICU for close cardiac monitoring in the setting of significant electrolyte derangements. Over the past 24 hours Mr. Anderson underwent dialysis. His renal function has improved and his potassium has normalized. He has made ~ 1 liter of urine since being dialyzed. His fluid balance remains positive at 4.9 liters and significantly edematous on exam. Additional 60mg IV Lasix today along with metolazone 2.5mg. His urine production is encouraging that he may not be reliant on permanent dialysis. Mr. Anderson's hemoglobin has improved to 7.7, an increase of only 1 point despite transfusion of 3 units of pRBCs. Will repeat H+H today. GI is following, considering scope. Patient's presentation may be secondary to digoxin toxicity. Digoxin level 2.9 on admission, given 1 dose of Digibind yesterday. Increase in level today is secondary to Digibind administration (falsely elevates digoxin level). His HR has improved, ranging 60s-70s. He is meeting MAP goals without vasopressors. He is breathing on his home oxygen requirement. Plan to remove his right femoral catheter. At this time, he is stable for ICU downgrade. Neuro: CAM ICU: Negative - no issues Cardiac: * Atrial Fibrillation - EKG showing Afib without RVR - holding Rivaroxaban in the setting of acute GI bleed - INR 2.3 on admission, down to 1.6 with vitamin K and prothrombin concentrate administration (in the event of GI scope) - rate controlled with atenolol 200mg, BID at home - will resume renally dosed Atenolol at 25mg, BID today * Hx CHF - CXR on admission showing bilateral pleural effusions and moderate pulmonary vascular congestion. Repeat CXR from 02/02 showing mild improvement - patient appears to be volume overloaded on exam - home medication regimen includes digoxin, atenolol, and furosemide 40mg, PO BID - currently holding digoxin (due to elevated level)and home lasix dose in favor of IV doses - resume renally dosed atenolol 25mg, BID - expect further dieresis with additional IV lasix and metolazone - digoxin level elevated to 2.9 on admission, given 1 dose of Digibind yesterday. Level today 3.3 (falsely elevated due to digibind) - most recent ECHO 07/2018 showing normal biventricular systolic function, mild concentric LVH, no valvular abnormalities * Hx CAD - continue atorvastatin 80mg * Elevated troponin - trop at 0.131 on admission --> 0.27 - EKG without ST segment changes - likely secondary to demand ischemia in the setting of anemia - without chest pain on exam Respiratory: * COPD - currently satting 97% on baseline oxygen requirement of 4L via NC - continue home medication regimen: montelukast, Trelegy Ellipta and ipratropium/albuterol inhaler - flutter valve added - mucinex 600mg, BID - Duo Nebs q6 prn * Hx SHIRA - patient compliant with CPAP at home - likely a component of obesity hypoventilation syndrome GI: * GI bleed - Hgb 6.7 on admission, fecal occult blood + - patient reported 6 day history of BRBPR and black, tarry stools on admission - patient with extensive work over past year without identified source - Hgb improved to 7.7 after 3 units of pRBCs - repeat H+H today at noon - K-centra and vit K administered in the event of procedure (due to elevated INR) - GI following RENAL/LYTES: * Acute Kidney Injury - Cr 3.55 on admission, down to 2.6 today. BUN 66, ratio 25 - suspect secondary to hypoperfusion (given hypotension on admission) - patient underwent dialysis yesterday - FeUrea 12.8% - non-oliguric; improved urine output is encouraging, less likelihood of needing dialysis permanently - nephrology consulted * Hyperkalemia - resolved - K 7.7 on admission; K down to 4.9 - EKG with mildly prolonged QRS interval, but with normal MS interval, no peaked T waves (although low voltage makes interpretation limited) - patient has been treated with Iv Lasix, insulin, and bicarb drip - he has been given calcium gluconate for cardiac membrane stabilization - cayexalate contraindicated in setting of acute GI bleed - we will give dose of Valtasa today and then discontinue - likely secondary to acute kidney injury - patient underwent dialysis on 02/02 - nephrology consulted as above -CK level normal : - Raphael in place -strict Is/Os ENDO: - no history of diabetes or thyroid disease HEME: * Anemia - Hgb 6.7 on admission. Improved to only 7.7 after being transfused 3 units of pRBCs. - MCV 85, normocytic - known history of iron deficiency - fecal occult stool + in ED and report of BRBPR by patient suggestive of blood loss - etiology of anemia may therefore be multifactorial - transfuse if Hgb <7 ID: - WBC normal on admission - procal not elevated - Nasal MRSA negative LINES/IV ACCESS: L femoral hemodialysis cath, PIV (22 gauge in R wrist), raphael CODE STATUS: DNR/DNI DVT PROPHYLAXIS: bilateral SCDs, chemical prophylaxis contraindicated in setting of acute GI bleed Thank you for allowing us to participate in the care of this patient. Please refer to my attending physician's documentation for any further recommendations. Admission and Anticipated Discharge Date Admission Date: February 02, 2020 Supervising Physician Co-Signing Physician Notes Dr Grant was the resident-physician during care of patient. I separately evaluated patient for blancas portions of the history and the exam. I was present during the critical portion of medical decision making, and I discussed the case with the resident. I generally agree with the findings and plan except for any additions/exceptions noted. Patient seen and examined at bedside. No acute distress, no adverse events overnight. Patient is feeling better. Denies any shortness of breath, no chest pain, no dizziness, no headache, no nausea, no vomiting. Patient digoxin level is today 3.3 but he got Digibind yesterday which is the reason for the false elevation of digoxin level. He got dialysis yesterday. Potassium today is 4.8. We will give 1 more dose of potassium binder today. He is making urine him a total of 1 L which is progress compared to 175 the night prior. I will give him 60 mg of Lasix IV once following 2.5 mg of metolazone. Nephrology is on board and follow recommendation. Hemoglobin is still trending down. It is 7.7 today. Repeat H&H at 12 there is trending down transfuse and let GI know. Get peripheral IV access and remove the right-sided femoral central line. Patient is hemodynamically stable to be downgraded to the medical floor. In/out: Urine output 1020 mL, +487 This time is exclusive of all separately billable procedures, and teaching time and separate from and in addition to any other critical care service time. Subjective Mr. Anderson again says he feels lousy this morning. He denies any chest pain or SOB. Review of Systems Respiratory: no dyspnea Cardiovascular: no chest pain Physical Exam Constitutional: + obese, cooperative and + edematous; no acute distress Eyes: PERRL, conjunctivae normal, anicteric sclerae ENMT: external ear and nose normal, oropharynx normal Neck: normal visual inspection and trachea midline Respiratory: Auscultation: + rales (bilateral lung bases) and + wheezes (inspiratory and expiratory, diffusely throughout lung martínez) Cardiovascular: Rate/Rhythm: regular rate and + irregularly irregular Heart Sounds: normal S1 and normal S2 Extremities: + pedal edema (+2 bilaterally) Gastrointestinal (Abdomen): normal bowel sounds, soft, nontender, no hepatosplenomegaly Skin: no rashes, warm and dry blisters and erythema on b/l lower legs Psychiatric: A+Ox3, euthymic affect Genitourinary: Raphael catheter in place, draining yellow urine without visible blood clots Results & Data Results & Data ([facility]) Vital Signs (Past 12 Hours) Vital Signs Temp Pulse Resp BP Pulse Ox 02/04/20 06:39 63 125/52 L 97 02/04/20 06:00 70 97 02/04/20 05:39 77 141/65 H 97 02/04/20 05:00 69 99 02/04/20 04:45 72 98 02/04/20 04:39 71 130/62 96 02/04/20 04:30 96 02/04/20 04:15 64 25 H 94 02/04/20 04:00 66 21 95 02/04/20 03:45 64 16 95 02/04/20 03:39 65 16 132/51 L 89 L 02/04/20 03:30 75 25 H 90 02/04/20 03:15 68 21 96 02/04/20 03:12 76 18 96 02/04/20 03:00 66 18 87 L 02/04/20 02:45 60 17 88 L 02/04/20 02:39 73 22 113/55 L 90 02/04/20 01:39 72 21 132/57 L 90 02/04/20 01:00 78 17 89 L 02/04/20 00:39 72 22 120/61 89 L 02/03/20 23:40 63 02/03/20 23:39 63 20 123/38 L 89 L 02/03/20 23:00 36.8 C 72 23 90 02/03/20 22:36 68 23 93 02/03/20 22:35 65 19 115/46 L 87 L 02/03/20 22:05 66 20 117/51 L 85 L 02/03/20 22:00 64 19 89 L 02/03/20 21:49 64 23 122/49 L 88 L 02/03/20 21:35 68 25 H 106/52 L 90 02/03/20 21:20 69 H 96 02/03/20 21:04 74 29 H 123/48 L 96 02/03/20 21:00 67 30 H 97 02/03/20 20:50 67 26 H 129/52 L 95 02/03/20 20:35 79 27 H 109/54 L 92 02/03/20 20:19 69 17 120/54 L 100 02/03/20 20:04 69 30 H 116/60 98 02/03/20 20:00 65 23 98 02/03/20 19:59 69 Resident Activity Tracking Resident Involvement: Resident Care Provided Care Provided: Adult Hospital Medicine
[2020-02-04] MEDS: UMECLIDINIUM/VILANTEROL 62.5/25MCG 7 PUFFS/INHALER INH SCH (08:13)
[2020-02-04] MEDS: FLUTICASONE FUROATE 100MCG 14 PUFFS/INHALER INH SCH (08:13)
[2020-02-04] MEDS: PANTOprazole 40 MG in SYRINGE 0 ML IV SCH ×2 (08:14→21:17)
[2020-02-04] MEDS: ATORVASTATIN 40 MG TAB PO SCH (08:14)
[2020-02-04] MEDS ORDERED: ALBUT/IPRATROP 3MG/0.5MG NEB 3 ML VIAL NEB PRN (09:01)
--- NOTE | 2020-02-04 09:59 | Gastroenterology Progress Note ---
Date of Service February 04, 2020 Assessment & Plan (1) Rectal bleeding: -Continue to monitor H/H -Protonix 40 mg BID -Given no further bleeding at present, can continue to monitor conservatively and consider endoscopic evaluation once stable from cardiopulmonary standpoint Present on Admission?: Yes Admission and Anticipated Discharge Date Admission Date: February 02, 2020 Supervising Physician Co-Signing Physician Notes Agree with Elaine Cuevas, PAC Continue current therapy and supportive care Will consider endoscopic workup when more clinically appropriate if he is agreeable. Subjective Follow-up for rectal bleeding and anemia. H/H is 7.7/27.9 though he is volume overloaded so this may be dilutional to some degree. He reports no further rectal bleeding. He underwent dialysis yesterday. He is being treated for a CHF exacerbation along with possible Digoxin toxicity contributing to worsening kidney function. He reports he feels very tired today. Review of Systems Constitutional: + fatigue Cardiovascular: no chest pain Gastrointestinal: no abdominal pain, no change in bowel habits and no blood in stools Musculoskeletal: no problem reported Physical Exam Constitutional: WD/WN, vitals as above Respiratory: no respiratory distress Cardiovascular: Extremities: + edema Gastrointestinal (Abdomen): Percussion/Palpation: abdomen soft; abdomen nontender Musculoskeletal: Head/Neck/Chest: normocephalic Psychiatric: A+Ox3, euthymic affect Results & Data Results & Data ([facility]) Vital Signs (Past 12 Hours) Vital Signs Temp Pulse Resp BP Pulse Ox 02/04/20 06:39 63 125/52 L 97 02/04/20 06:00 70 97 02/04/20 05:39 77 141/65 H 97 02/04/20 05:00 69 99 02/04/20 04:45 72 98 02/04/20 04:39 71 130/62 96 02/04/20 04:30 96 02/04/20 04:15 64 25 H 94 02/04/20 04:00 66 21 95 02/04/20 03:45 64 16 95 02/04/20 03:39 65 16 132/51 L 89 L 02/04/20 03:30 75 25 H 90 02/04/20 03:15 68 21 96 02/04/20 03:12 76 18 96 02/04/20 03:00 66 18 87 L 02/04/20 02:45 60 17 88 L 02/04/20 02:39 73 22 113/55 L 90 02/04/20 01:39 72 21 132/57 L 90 02/04/20 01:00 78 17 89 L 02/04/20 00:39 72 22 120/61 89 L 02/03/20 23:40 63 02/03/20 23:39 63 20 123/38 L 89 L 02/03/20 23:00 36.8 C 72 23 90 02/03/20 22:36 68 23 93 02/03/20 22:35 65 19 115/46 L 87 L 02/03/20 22:05 66 20 117/51 L 85 L 02/03/20 22:00 64 19 89 L PG Care Time/CCT Total # of Minutes Spent Total Time Spent with Patient: Total time spent is greater than 50% in coordination of care (as documented) at patient's floor/unit and/or counseling patient: Coding Level of Care Code 44151 Subseq Hosp Care Lvl 2 Diagnoses Rectal bleeding K62.5
[2020-02-04] MEDS ORDERED: metOLazone 2.5 MG TABLET PO ONE (10:00)
--- NOTE | 2020-02-04 10:01 | XRay Report ---
XR chest 1V portable CLINICAL HISTORY: f/u COMPARISON STUDY: Chest radiograph February 03, 2020. FINDINGS: Right shoulder arthroplasty is incidentally noted. Cardiomegaly is unchanged. There is no p neumothorax. Small to moderate left pleural effusion has increased. There is a small right pleural ef fusion. Persistent left basilar opacity is noted. Pulmonary edema is again noted. IMPRESSION: 1. Increase in a small to moderate left pleural effusion with left basilar opacity could reflect atel ectasis or consolidation. Small right pleural effusion. 2. Persistent pulmonary edema. ACT 112: Negative or not required by law. Electronically signed by: Zackery Jensen M.D. 02/04/2020 9:59 AM
--- NOTE | 2020-02-04 10:18 | Nephrology Progress Note ---
Date of Service February 04, 2020 Assessment & Plan (1) XIOMY (acute kidney injury): Clinically consistent with ATN. UA: +2 protein, >30 WBC, 5-10 RBC, and granular casts. L HD cath placed at the bedside yesterday by ICU team. 1st HD treatment completed yesterday without complications. Will perform 2nd treatment today for additional UF. UOP improving. Electrolytes acceptable. Remains hypervolemic. Medications appropriately dosed for kidney function. Digibind provided and monitored. No obvious signs of toxicity at this time. Remains relatively bradycardic but acceptable. No obstruction noted on CT. Menendez remains intact. (2) Acute hyperkalemia: Resolved. (3) Acute on chronic diastolic (congestive) heart failure: Ideally would like to encourage a slightly negative fluid balance. (4) Acute GI bleeding: No melena or hematochezia overnight. Hgb 7.7. If signs of bleeding, PRBC can be given with HD as needed. (5) SHIRA (obstructive sleep apnea): (6) Admitted to intensive care unit: Admission and Anticipated Discharge Date Admission Date: February 02, 2020 Subjective No acute events overnight. HD completed yesterday without complications. UOP improving. Remains in a positive fluid balance. Breathing relatively comfortably with poor activity tolerance. No fevers or chills. No additional melena or hematochezia. Review of Systems Review of Systems: All systems reviewed & are unremarkable except as noted in HPI & below Physical Exam Constitutional: well developed and + morbidly obese; no acute distress Eyes: + anicteric sclerae; no corneal abnormality ENMT: Mouth: no oral mucosal abnormality and oral mucous membranes not dry Neck: normal visual inspection, trachea midline and + thick neck Respiratory: + tachypneic Auscultation: + diminished lung sounds Cardiovascular: Rate/Rhythm: + irregularly irregular Heart Sounds: normal S1 and normal S2 Extremities: + edema Gastrointestinal (Abdomen): Percussion/Palpation: abdomen soft; abdomen nontender Musculoskeletal: Extremities: no cyanosis and no clubbing Skin: normal turgor; no lesions Neurologic: Motor/Sensory: no tremor and no asterixis Psychiatric: Orientation: alert and oriented x 3 Results & Data ([facility]) Vital Signs (Past 12 Hours) Vital Signs Temp Pulse Resp BP Pulse Ox 02/04/20 06:39 63 125/52 L 97 02/04/20 06:00 70 97 11/05/20 05:39 77 141/65 H 97 02/04/20 05:00 69 99 02/04/20 04:45 72 98 02/04/20 04:39 71 130/62 96 02/04/20 04:30 96 02/04/20 04:15 64 25 H 94 02/04/20 04:00 66 21 95 02/04/20 03:45 64 16 95 02/04/20 03:39 65 16 132/51 L 89 L 02/04/20 03:30 75 25 H 90 02/04/20 03:15 68 21 96 02/04/20 03:12 76 18 96 02/04/20 03:00 66 18 87 L 02/04/20 02:45 60 17 88 L 02/04/20 02:39 73 22 113/55 L 90 02/04/20 01:39 72 21 132/57 L 90 02/04/20 01:00 78 17 89 L 02/04/20 00:39 72 22 120/61 89 L 02/03/20 23:40 63 02/03/20 23:39 63 20 123/38 L 89 L 02/03/20 23:00 36.8 C 72 23 90 02/03/20 22:36 68 23 93 02/03/20 22:35 65 19 115/46 L 87 L Laboratory Results Laboratory Results - last 24 hr 02/02/20 02/03/20 02/03/20 12:30 08:50 10:34 WBC RBC Hgb Hct MCV MCH MCHC RDW Std Deviation RDW Coeff of Ezekiel Plt Count MPV Absolute Nucleated RBC Nucleated RBC % (auto) Sodium Potassium Chloride Carbon Dioxide Anion Gap BUN Creatinine Est Cr Clr Drug Dosing Est GFR ( Amer) Est GFR (Non-Af Amer) BUN/Creatinine Ratio Glucose POC Glucose Calcium Phosphorus Magnesium Ur Random Creatinine 152.0 Stool Occult Bld Scrn POC Stool Occult Blood Cancelled Digoxin Hep Bs Antigen Hep Bs Antibody Hep Bs Antibody, Quant Crossmatch See Detail 02/03/20 02/03/20 02/03/20 10:34 11:50 11:50 WBC RBC Hgb Hct MCV MCH MCHC RDW Std Deviation RDW Coeff of Ezekiel Plt Count MPV Absolute Nucleated RBC Nucleated RBC % (auto) Sodium 140 Potassium 5.9 H Chloride 104 Carbon Dioxide 32 Anion Gap 5.0 BUN 81 H Creatinine 3.32 H Est Cr Clr Drug Dosing 26.9 Est GFR ( Amer) 20.3 Est GFR (Non-Af Amer) 17.5 BUN/Creatinine Ratio 24.4 H Glucose 79 POC Glucose Calcium 8.5 Phosphorus 5.6 H Magnesium 2.7 H Ur Random Creatinine Stool Occult Bld Scrn Positive A POC Stool Occult Blood Digoxin Hep Bs Antigen Hep Bs Antibody Hep Bs Antibody, Quant Crossmatch 02/03/20 02/03/20 02/03/20 11:50 13:18 15:21 WBC RBC Hgb 8.2 L Hct 29.0 L MCV MCH MCHC RDW Std Deviation RDW Coeff of Ezekiel Plt Count MPV Absolute Nucleated RBC Nucleated RBC % (auto) Sodium Potassium Chloride Carbon Dioxide Anion Gap BUN Creatinine Est Cr Clr Drug Dosing Est GFR ( Amer) Est GFR (Non-Af Amer) BUN/Creatinine Ratio Glucose POC Glucose 83 Calcium Phosphorus Magnesium Ur Random Creatinine Stool Occult Bld Scrn POC Stool Occult Blood Digoxin Hep Bs Antigen Neg Hep Bs Antibody Non-Immune Hep Bs Antibody, Quant < 3.10 L Crossmatch 02/03/20 02/03/20 02/04/20 18:32 20:17 03:52 WBC 10.04 RBC 3.20 L Hgb 8.3 L 7.7 L Hct 29.8 L 27.9 L MCV 87.2 MCH 24.1 L MCHC 27.6 L RDW Std Deviation 61.8 H RDW Coeff of Ezekiel 19.1 H Plt Count 249 MPV 10.9 H Absolute Nucleated RBC 0.03 H Nucleated RBC % (auto) 0.3 Sodium Potassium Chloride Carbon Dioxide Anion Gap BUN Creatinine Est Cr Clr Drug Dosing Est GFR ( Amer) Est GFR (Non-Af Amer) BUN/Creatinine Ratio Glucose POC Glucose 100 H Calcium Phosphorus Magnesium Ur Random Creatinine Stool Occult Bld Scrn POC Stool Occult Blood Digoxin Hep Bs Antigen Hep Bs Antibody Hep Bs Antibody, Quant Crossmatch 02/04/20 02/04/20 03:52 03:52 WBC RBC Hgb Hct MCV MCH MCHC RDW Std Deviation RDW Coeff of Ezekiel Plt Count MPV Absolute Nucleated RBC Nucleated RBC % (auto) Sodium 139 Potassium 4.8 D Chloride 103 Carbon Dioxide 32 Anion Gap 4.0 BUN 66 H Creatinine 2.61 H D Est Cr Clr Drug Dosing 34.3 Est GFR ( Amer) 27.2 Est GFR (Non-Af Amer) 23.5 BUN/Creatinine Ratio 25.4 H Glucose 81 POC Glucose Calcium 7.9 L Phosphorus 5.0 H Magnesium 2.6 H Ur Random Creatinine Stool Occult Bld Scrn POC Stool Occult Blood Digoxin 3.3 H* Hep Bs Antigen Hep Bs Antibody Hep Bs Antibody, Quant Crossmatch PG Care Time/CCT Total # of Minutes Spent Total Time Spent with Patient: Total time spent is greater than 50% in coordination of care (as documented) at patient's floor/unit and/or counseling patient: Coding Level of Care Code 57929 Subseq Hosp Care Lvl 3 Diagnoses XIOMY (acute kidney injury) N17.9 Acute hyperkalemia E87.5 Acute on chronic diastolic (congestive) heart failure I50.33 Acute GI bleeding K92.2 SHIRA (obstructive sleep apnea) G47.33 Admitted to intensive care unit Z78.9
[2020-02-04] MEDS ORDERED: FUROSEMIDE 60 MG in SYRINGE 0 ML IV ONE (10:30)
[2020-02-04] MEDS ORDERED: ATENOLOL 25 MG TABLET PO ONE (11:00)
--- NOTE | 2020-02-04 11:26 | Billing Data ---
Date of Service February 04, 2020 Coding Level of Care Code 74649 Subseq Hosp Care Lvl 3
[2020-02-04] MEDS: PATIROMER CALCIUM SORBITEX 8.4 GM PACK PO SCH (12:09)
[2020-02-04 12:28] LABS: Hemoglobin 8.4 g/dL (14.0-18.0)
[2020-02-04] MEDS: guaiFENesin 600 MG TABCR PO SCH (21:17)
[2020-02-04] MEDS: MONTELUKAST SODIUM 10 MG TABLET PO SCH (21:18)
[2020-02-04] MEDS: ATENOLOL 25 MG TABLET PO SCH (21:19)
[2020-02-05 06:31] LABS: Hemoglobin 7.7 g/dL (14.0-18.0); Mean Corpuscular Hemoglobin 24.6 pg (25-34); Mean Corpuscular Hgb Conc 27.5 g/dL (32-36); Mean Corpuscular Volume 89.5 fL (80-100); Mean Platelet Volume 10.2 fL (7.4-10.4); Platelet Count 214 K/uL (130-400); RDW Coefficient of Variation 19.5 % (11.5-14.5); RDW Standard Deviation 63.6 fL (36.4-46.3); Red Blood Count 3.13 M/uL (4.7-6.1); White Blood Count 9.61 K/uL (4.8-10.8)
--- NOTE | 2020-02-05 07:00 | Hospitalist Progress Note ---
Date of Service February 05, 2020 Assessment & Plan (1) Acute GI bleeding: *Hemorrhagic disord d/t extrinsic circulating anticoagulants Patient has an acute gastrointestinal bleed, hgb in the 7 gm range if needed can transuse with dialysis acute blood loss anemia, ongoing for about 5 days prehospital no significant blood loss noted while here but we did hold rivaroxaban Continue to hold this at time of discharge. previous significant work up in 2019 with endosocpes and capsule was unrevealing No plan on intervention was hemodynamically unstable (2) Acute hyperkalemia: potassium was elevated at 7.7, after treatment has normalized followed by consult nephrology patient did receive additional diuretics nephrology has completed dialysis is considering stopping dialysis and trying diuresis (3) Acute on chronic diastolic (congestive) heart failure: Paimaci appears to be fluid overloaded, this may be complicated by his poor renal function. nephrology oversight for dialysis improving with negative fluid balance on 02/05/2020 (4) Elevated troponin: likely demand ischemia in the face of severe anemia (5) Afib: pt is with rate control, atenolol digoxin is supratherapeutic, was given digibind (6) XIOMY (acute kidney injury): acute kideny injury in history of ckd 3, most likley from intravascular volume loss, complicated by / causing digoxin toxicity, on digibine, and attempt to promote urine production with loop diuretic to help lower potassium, dialysis by neprhology (7) Chronic obstructive pulmonary disease: does not appear to be in COPD exacerbation at this time. will resume home meds-trelegy, singular and nebulized albuterol and atrovent (8) Abnormal urinalysis: markedly abnormal will send culture, syed from atn, pt did grow strep consider a contaminant unless he develops symptoms (9) SHIRA (obstructive sleep apnea): bipap at night. (10) DVT prophylaxis: scd as chemoprophylaxis contraindicated in pt with Acute blood loss anemia (11) Digoxin toxicity: pt did have digibind, last dialysis Admission and Anticipated Discharge Date Admission Date: February 02, 2020 Subjective Patient doing somewhat better. He is overall generally not feeling well. He has had some urine output. Nephrology is encouraged that we may be able to stop dialysis and his ATN may be recovering. His hemoglobin is stayed stable in the 7.5 g range. He is mostly bothered by having poor sleep Review of Systems Review of Systems: Continues with moderate distress and fatigue no headache, blurry or double vision no speech or swallowing issues no chest pain, pressure or palpitations Dyspnea on exertion, no significant cough or wheezes no abdominal pain, nausea or vomiting, diarrhea or constipation no dysuria, hematuria or frequency no focal joint pain significant peripheral swelling no back pain, CVA tenderness or radicular pain no bruising, bleeding or rashes no focal signs of weakness or numbness or altered sensation no complaints of anxiety or depression. Physical Exam Physical Exam: The patient appeared in mild to moderate distress, remains swollen and uncomfortable Vital signs as documented. Head exam is normocephalic atraumatic no scleral icterus Neck is with difficult to asses JVD due to morbid obesity, no carotid bruits. Lungs are diminished at the bases Cardiac exam, irregular rate controlled with [place] Abdominal exam reveals normal bowel sounds, soft non tender, no masses, distended Extremities are 2+ edematous and both pedal pulses are present Neurologic exam is alert and oriented, no focal loss of strength or sensation Skin is without bruises Psychologically is without concerns for anxiety or depression. Results & Data Results & Data ([facility]) Vital Signs (Past 12 Hours) Vital Signs Temp Pulse Pulse Resp BP Pulse Ox 02/05/20 03:30 97.9 F 64 24 124/42 L 95 02/05/20 02:44 71 20 91 02/05/20 00:03 98.4 F 65 20 110/56 L 86 L 02/05/20 00:01 91 02/04/20 21:36 59 L 20 95 02/04/20 20:10 97.7 F 74 21 162/72 H 93 PG Care Time/CCT Total # of Minutes Spent Total Time Spent with Patient: Total time spent is greater than 50% in coordination of care (as documented) at patient's floor/unit and/or counseling patient: Coding Level of Care Code 49509 Subseq Hosp Care Lvl 3 Diagnoses Acute GI bleeding K92.2 Acute hyperkalemia E87.5 Acute on chronic diastolic (congestive) heart failure I50.33 Elevated troponin R77.8 Afib I48.91 XIOMY (acute kidney injury) N17.9 Chronic obstructive pulmonary disease J44.9 Abnormal urinalysis R82.90 SHIRA (obstructive sleep apnea) G47.33 DVT prophylaxis Z29.9 Digoxin toxicity T46.0X1A
[2020-02-05 07:01] LABS: Calcium 7.9 mg/dl (8.5-10.1); Creatinine Clr Calc Pharmacy 52.2 ml/min; Est GFR (African American) 45.4; Est GFR (Non-African American) 39.1; Potassium 4.7 mmol/L (3.5-5.1)
[2020-02-05] MEDS: FLUTICASONE FUROATE 100MCG 14 PUFFS/INHALER INH SCH (08:13)
[2020-02-05] MEDS: ATENOLOL 25 MG TABLET PO SCH ×2 (08:13→20:44)
[2020-02-05] MEDS: UMECLIDINIUM/VILANTEROL 62.5/25MCG 7 PUFFS/INHALER INH SCH (08:13)
[2020-02-05] MEDS: guaiFENesin 600 MG TABCR PO SCH ×2 (08:13→20:44)
[2020-02-05] MEDS: PANTOprazole 40 MG in SYRINGE 0 ML IV SCH ×2 (08:13→20:44)
[2020-02-05] MEDS ORDERED: FUROSEMIDE 80 MG in SYRINGE 0 ML IV ONE (09:30)
--- NOTE | 2020-02-05 13:19 | Nephrology Progress Note ---
Date of Service February 05, 2020 Assessment & Plan (1) XIOMY (acute kidney injury): Clinically consistent with ATN. UA: +2 protein, >30 WBC, 5-10 RBC, and granular casts. L HD cath placed at the bedside 02/02 by ICU team. 1st HD treatment completed 02/02 without complications. 2nd treatment yesterday for additional UF. Metabolic profile acceptable this AM. UOP improving. Furosemide 80 mg IV provided this AM to encourage a a goal net negative fluid balance. Remains hypervolemic but no urgent indication for additional [employer] at this time as volume status is reasonable, obligatory intake low, and hyperkalemia resolved. Will hold today and monitor for renal recovery. Nephrology will evaluation tomorrow in the AM for possible additional dialysis needs. Please maintain femoral catheter as able for now. Medications appropriately dosed for kidney function. No signs of digoxin toxicity at this time. Remains relatively bradycardic but acceptable. I did review Rodrigo's recent history with Dr. Luna in the clinic. Outpatient follow up with cardiology will be arranged as appropriate. No obstruction noted on CT. Menendez remains intact. (2) Acute hyperkalemia: Resolved. Remains on low potassium diet with monitoring of renal recovery. (3) Acute on chronic diastolic (congestive) heart failure: Balanced I/O's for admission. Fluid retention appears to be largely related to renal insufficiency. Monitoring for renal recovery at this time while providing supportive HD as needed. (4) Acute GI bleeding: No melena or hematochezia overnight. Hgb 7.7 stable. s/p 3 units PRBC within 24 hours of admission. Admission and Anticipated Discharge Date Admission Date: February 02, 2020 Subjective No acute events overnight. Rodrigo looks well this morning. He denies significant dyspnea. He has not passed any melena or hematochezia overnight. No ligh theadedness, dizziness, chest pain, or palpitations. Tolerated HD yesterday without complications. Net UF 2 L. I/O's matched at this time. Edema persists but Rodrigo notes some improvement. UOP has been increasing. Review of Systems Review of Systems: All systems reviewed & are unremarkable except as noted in HPI & below Physical Exam Constitutional: well developed and + morbidly obese; no acute distress Eyes: + anicteric sclerae; no corneal abnormality ENMT: Mouth: no oral mucosal abnormality and oral mucous membranes not dry Neck: normal visual inspection, trachea midline and + thick neck Respiratory: normal respiratory effort Auscultation: + diminished lung sounds Cardiovascular: Rate/Rhythm: + irregularly irregular Heart Sounds: normal S1 and normal S2 Extremities: + edema Gastrointestinal (Abdomen): Percussion/Palpation: abdomen soft; abdomen nontender Musculoskeletal: Extremities: no cyanosis and no clubbing Skin: normal turgor; no lesions Neurologic: Motor/Sensory: no tremor and no asterixis Psychiatric: Orientation: alert and oriented x 3 Results & Data ([facility]) Vital Signs (Past 12 Hours) Vital Signs Temp Pulse Pulse Resp BP Pulse Ox 02/05/20 11:24 36.5 C 68 19 132/50 L 96 02/05/20 07:32 36.5 C 71 22 131/54 L 97 02/05/20 03:30 36.6 C 64 24 124/42 L 95 02/05/20 02:44 71 20 91 Laboratory Results Laboratory Results - last 24 hr 02/02/20 02/05/20 02/05/20 12:30 06:02 06:02 WBC 9.61 RBC 3.13 L Hgb 7.7 L Hct 28.0 L MCV 89.5 MCH 24.6 L MCHC 27.5 L RDW Std Deviation 63.6 H RDW Coeff of Ezekiel 19.5 H Plt Count 214 MPV 10.2 Sodium 140 Potassium 4.7 Chloride 105 Carbon Dioxide 33 H Anion Gap 2.0 L BUN 43 H Creatinine 1.71 H D Est Cr Clr Drug Dosing 52.2 Est GFR ( Amer) 45.4 Est GFR (Non-Af Amer) 39.1 BUN/Creatinine Ratio 25.0 H Glucose 116 H Calcium 7.9 L Digoxin Crossmatch See Detail 02/05/20 06:02 WBC RBC Hgb Hct MCV MCH MCHC RDW Std Deviation RDW Coeff of Ezekiel Plt Count MPV Sodium Potassium Chloride Carbon Dioxide Anion Gap BUN Creatinine Est Cr Clr Drug Dosing Est GFR ( Amer) Est GFR (Non-Af Amer) BUN/Creatinine Ratio Glucose Calcium Digoxin 1.9 Crossmatch PG Care Time/CCT Total # of Minutes Spent Total Time Spent with Patient: Total time spent is greater than 50% in coordination of care (as documented) at patient's floor/unit and/or counseling patient: Coding Level of Care Code 20019 Subseq Hosp Care Lvl 3 Diagnoses XIOMY (acute kidney injury) N17.9 Acute hyperkalemia E87.5 Acute on chronic diastolic (congestive) heart failure I50.33 Acute GI bleeding K92.2
[2020-02-05] MEDS ORDERED: MELATONIN 3 MG TAB PO ONE ×2 (16:00→21:00)
[2020-02-05] MEDS ORDERED: Nursing to Pharmacy Communication SCH (18:15)
[2020-02-05] MEDS: MONTELUKAST SODIUM 10 MG TABLET PO SCH (20:44)
[2020-02-05] MEDS: QUEtiapine FUMARATE 25 MG TABLET PO SCH (20:44)
--- NOTE | 2020-02-06 07:11 | Hospitalist Progress Note ---
Date of Service February 06, 2020 Assessment & Plan (1) XIOMY (acute kidney injury): acute kideny injury in history of ckd 3, most likley ATN from intravascular volume loss, complicated by / causing digoxin toxicity, on digibind Pt was given lasix 80 mg 02/05/20 with -1340, w renal function has improved restart his Lasix at 40 twice daily which is his prehospital dose (2) Acute GI bleeding: *Hemorrhagic disord d/t extrinsic circulating anticoagulants Patient has an acute gastrointestinal bleed, hgb in the 8 gm range if needed can transuse with dialysis acute blood loss anemia, ongoing for about 5 days prehospital no significant blood loss noted while here but we did hold rivaroxaban Continue to hold this at time of discharge. previous significant work up in 2019 with endosocpes and capsule was unrevealing No plan on intervention was hemodynamically unstable (3) Acute hyperkalemia: potassium was elevated at 7.7, after treatment has normalized followed by consult nephrology patient did receive additional diuretics nephrology has completed dialysis he will return to his normal oral medications of Lasix 40 twice daily (4) Acute on chronic diastolic (congestive) heart failure: Paimaci appears to be fluid overloaded, this may be complicated by his poor renal function. nephrology oversight no indication for dialysis with improving weight is reduced from admission (5) Elevated troponin: likely demand ischemia in the face of severe anemia (6) Afib: pt is with rate control, atenolol digoxin is supratherapeutic, was given digibind digoxin is not restarted rate control with atenolol is appropriate at this time (7) Chronic obstructive pulmonary disease: does not appear to be in COPD exacerbation at this time. will resume home meds-trelegy, singular and nebulized albuterol and atrovent (8) Abnormal urinalysis: markedly abnormal will send culture, syed from at, pt did grow Enterococcus faecalis he is without symptoms but he has a femoral dialysis cath in place and will be treated (9) SHIRA (obstructive sleep apnea): bipap at night. (10) DVT prophylaxis: scd as chemoprophylaxis contraindicated in pt with Acute blood loss anemia (11) Digoxin toxicity: pt did have digibind, last dialysis Admission and Anticipated Discharge Date Admission Date: February 02, 2020 Subjective Patient did not sleep well with melatonin and Seroquel combination. He was seen by nephrology is pleased with the improvement of his renal function. He will be resumed on his home Lasix dosing which is 40 twice daily starting on 02/05. Bev ent otherwise is significantly deconditioned and likely may benefit from some physical rehab prior to going home Review of Systems Review of Systems: Continues with mild distress and fatigue no headache, blurry or double vision no speech or swallowing issues no chest pain, pressure or palpitations Dyspnea on exertion, no significant cough or wheezes no abdominal pain, nausea or vomiting, diarrhea or constipation no dysuria, hematuria or frequency no focal joint pain persist with peripheral swelling no back pain, CVA tenderness or radicular pain no bruising, bleeding or rashes no focal signs of weakness or numbness or altered sensation no complaints of anxiety or depression. Physical Exam Physical Exam: The patient appeared in mild distress, remains uncomfortable did have improved sleep Vital signs as documented. Head exam is normocephalic atraumatic no scleral icterus Neck is with difficult to asses JVD due to morbid obesity, no carotid bruits. Lungs are diminished at the bases Cardiac exam, irregular rate controlled with [place] Abdominal exam reveals normal bowel sounds, soft non tender, no masses, distended Extremities are 2+ edematous and both pedal pulses are present Neurologic exam is alert and oriented, no focal loss of strength or sensation Skin is without bruises Psychologically is without concerns for anxiety or depression. Results & Data Results & Data ([facility]) Vital Signs (Past 12 Hours) Vital Signs Temp Pulse Pulse Resp BP BP Pulse Ox 02/06/20 06:00 78 18 132/78 95 02/06/20 00:00 98.2 F 67 19 129/53 L 97 02/05/20 21:00 80 18 90 02/05/20 20:40 98.2 F 68 18 125/48 L 95 PG Care Time/CCT Total # of Minutes Spent Total Time Spent with Patient: Total time spent is greater than 50% in coordination of care (as documented) at patient's floor/unit and/or counseling patient: Coding Level of Care Code 19972 Subseq Hosp Care Lvl 3 Diagnoses XIOMY (acute kidney injury) N17.9 Acute GI bleeding K92.2 Acute hyperkalemia E87.5 Acute on chronic diastolic (congestive) heart failure I50.33 Elevated troponin R77.8 Afib I48.91 Chronic obstructive pulmonary disease J44.9 Abnormal urinalysis R82.90 SHIRA (obstructive sleep apnea) G47.33 DVT prophylaxis Z29.9 Digoxin toxicity T46.0X1A
[2020-02-06 07:37] LABS: Hematocrit (blood only) 28.9 % (42-52); Mean Corpuscular Hemoglobin 24.8 pg (25-34); Mean Corpuscular Hgb Conc 27.7 g/dL (32-36); Mean Corpuscular Volume 89.5 fL (80-100); Mean Platelet Volume 10.1 fL (7.4-10.4); Platelet Count 196 K/uL (130-400); RDW Coefficient of Variation 19.6 % (11.5-14.5); RDW Standard Deviation 63.8 fL (36.4-46.3); Red Blood Count 3.23 M/uL (4.7-6.1); White Blood Count 11.06 K/uL (4.8-10.8)
[2020-02-06 07:48] LABS: BUN Creatinine Ratio 26.6 (10-20); Calcium 8.2 mg/dl (8.5-10.1); Est GFR (African American) 55.4; Est GFR (Non-African American) 47.8; Potassium 4.4 mmol/L (3.5-5.1)
[2020-02-06] MEDS: guaiFENesin 600 MG TABCR PO SCH ×2 (08:19→21:22)
[2020-02-06] MEDS: UMECLIDINIUM/VILANTEROL 62.5/25MCG 7 PUFFS/INHALER INH SCH (08:19)
[2020-02-06] MEDS: FLUTICASONE FUROATE 100MCG 14 PUFFS/INHALER INH SCH (08:19)
[2020-02-06] MEDS: ATENOLOL 25 MG TABLET PO SCH ×2 (08:31→21:23)
[2020-02-06] MEDS: PANTOprazole 40 MG in SYRINGE 0 ML IV SCH ×2 (08:31→21:23)
--- NOTE | 2020-02-06 10:42 | Nephrology Progress Note ---
Date of Service February 06, 2020 Assessment & Plan (1) XIOMY (acute kidney injury): * ATN due to GI bleed, hypotension and impaired renal perfusion * Required acute HD 02/02 & 02/03 * Now in recovery phase. Cr has improved from 3.5 to 1.45 (baseline Cr ~ 1.0). Volume status and electrolyte balance are acceptable. No acute indication for HD today * Keep R femoral temporary dialysis catheter in place today. If continued improvement tomorrow, it may then be removed (2) Acute hyperkalemia: * Resolved following d/c of KCl supplement and HD * Continue to hold KCl * Continue low potassium diet (3) Acute on chronic diastolic (congestive) heart failure: * 3L volume + since admission * Now diuresing in recovery phase of XIOMY * Hold diuretic today and monitor UO (4) Acute GI bleeding: * Hgb stable. GI is following and will consider endoscopic evaluation once medically stable Admission and Anticipated Discharge Date Admission Date: February 02, 2020 Subjective Mr. Anderson was seen & examined in his hospital room this morning. His was present at the time of my evaluation. She reports that her slept poorly last night. Mr. Anderson will awaken to voice. He is oriented to self and place but not month. He currently denies angina, dyspnea or fever. His temporary R femoral HD catheter remains in place. His last HD treatment was 02/03 am. Menendez catheter collection bag has ~ 1 L clear, yellow urine. Review of Systems Constitutional: no fever Eyes: no problem reported Ear, Nose, Mouth, Throat: no problem reported Respiratory: no dyspnea Cardiovascular: no chest pain Gastrointestinal: no abdominal pain, no nausea and no diarrhea/loose stools Integumentary: no rash Physical Exam Constitutional: + morbidly obese; no acute distress Eyes: + anicteric sclerae; no corneal abnormality ENMT: Mouth: no oral mucosal abnormality Neck: normal visual inspection, trachea midline and + thick neck Respiratory: normal respiratory effort Auscultation: + diminished lung sounds Cardiovascular: Rate/Rhythm: + irregularly irregular Heart Sounds: normal S1 and normal S2 Extremities: + edema Gastrointestinal (Abdomen): Percussion/Palpation: abdomen soft; abdomen nontender Musculoskeletal: Extremities: no cyanosis Neurologic: Motor/Sensory: no tremor Results & Data ([facility]) Vital Signs (Past 12 Hours) Vital Signs Temp Pulse Pulse Resp BP BP Pulse Ox 1107/20 07:49 36.5 C 73 16 132/59 L 97 02/06/20 06:00 78 18 132/78 95 02/06/20 00:00 36.8 C 67 19 129/53 L 97 Laboratory Results Laboratory Tests 02/03/20 02/06/20 02/06/20 03:18 06:50 06:50 WBC 11.06 H Hgb 8.0 L Hct 28.9 L Plt Count 196 INR 1.6 H Sodium 142 Potassium 4.4 Chloride 106 Carbon Dioxide 33 H BUN 39 H Creatinine 1.45 H Glucose 137 H PG Care Time/CCT Total # of Minutes Spent Total Time Spent with Patient: Total time spent is greater than 50% in coordination of care (as documented) at patient's floor/unit and/or counseling patient: Coding Level of Care Code 90062 Subseq Hosp Care Lvl 3 Diagnoses XIOMY (acute kidney injury) N17.9 Acute hyperkalemia E87.5 Acute on chronic diastolic (congestive) heart failure I50.33 Acute GI bleeding K92.2
[2020-02-06] MEDS ORDERED: FUROSEMIDE 40 MG in SYRINGE 0 ML IV ONE (13:45)
[2020-02-06] MEDS ORDERED: FUROSEMIDE 40 MG TAB PO SCH (17:00)
[2020-02-06] MEDS: QUEtiapine FUMARATE 25 MG TABLET PO SCH (21:22)
[2020-02-06] MEDS: MONTELUKAST SODIUM 10 MG TABLET PO SCH (21:22)
[2020-02-06] MEDS: AMOXICILLIN 500 MG CAP PO SCH (23:01)
[2020-02-07 07:33] LABS: BUN Creatinine Ratio 28.3 (10-20); Calcium 8.2 mg/dl (8.5-10.1); Creatinine Clr Calc Pharmacy 79.6 ml/min; Est GFR (African American) 76.5
[2020-02-07 07:45] LABS: Hematocrit (blood only) 29.1 % (42-52); Hemoglobin 7.9 g/dL (14.0-18.0); Mean Corpuscular Hemoglobin 24.7 pg (25-34); Mean Corpuscular Hgb Conc 27.1 g/dL (32-36); Mean Corpuscular Volume 90.9 fL (80-100); Mean Platelet Volume 10.8 fL (7.4-10.4); Platelet Count 211 K/uL (130-400); RDW Coefficient of Variation 19.7 % (11.5-14.5); RDW Standard Deviation 65.5 fL (36.4-46.3); White Blood Count 11.42 K/uL (4.8-10.8)
[2020-02-07] MEDS: FUROSEMIDE 40 MG TAB PO SCH (09:11)
[2020-02-07] MEDS: AMOXICILLIN 500 MG CAP PO SCH ×2 (09:11→22:15)
[2020-02-07] MEDS: PANTOprazole 40 MG in SYRINGE 0 ML IV SCH ×2 (09:11→22:41)
[2020-02-07] MEDS: guaiFENesin 600 MG TABCR PO SCH ×2 (09:12→22:15)
[2020-02-07] MEDS: FLUTICASONE FUROATE 100MCG 14 PUFFS/INHALER INH SCH (09:13)
[2020-02-07] MEDS: UMECLIDINIUM/VILANTEROL 62.5/25MCG 7 PUFFS/INHALER INH SCH (09:13)
[2020-02-07] MEDS: ATENOLOL 25 MG TABLET PO SCH ×2 (09:22→22:16)
--- NOTE | 2020-02-07 10:17 | Nephrology Progress Note ---
Date of Service February 07, 2020 Assessment & Plan (1) XIOMY (acute kidney injury): * ATN due to GI bleed, hypotension and impaired renal perfusion * Required acute HD 02/02 & 02/03 * Now in recovery phase. Cr has improved from 3.5 to 1.1 (baseline Cr ~ 1.0). Volume status and electrolyte balance are acceptable. No acute indication for HD today * I have spoken w/ critical care. They will remove temporary dialysis catheter in am (2) Acute hyperkalemia: * Resolved following d/c of KCl supplement and HD * Continue to hold KCl * Continue low potassium diet (3) Acute on chronic diastolic (congestive) heart failure: * Continues to diurese well on his own. Net -2.3L last 24 hours * Hold diuretic today and monitor UO (4) Acute GI bleeding: * Hgb stable. GI is following and will consider endoscopic evaluation once medically stable Admission and Anticipated Discharge Date Admission Date: February 02, 2020 Subjective Mr. Anderson was seen & examined in his hospital room this morning. His was present at the time of my evaluation. He is more alert and denies angina, dyspnea or fever. His temporary R femoral HD catheter remains in place. His last HD treatment was 02/03 am. Menendez catheter collection bag has yellow urine. Review of Systems Constitutional: no fever Eyes: no problem reported Ear, Nose, Mouth, Throat: no problem reported Respiratory: no dyspnea Cardiovascular: no chest pain Gastrointestinal: no abdominal pain, no nausea and no diarrhea/loose stools Integumentary: no rash Physical Exam Constitutional: + morbidly obese; no acute distress Eyes: PERRL ENMT: Mouth: no oral mucosal abnormality Neck: trachea midline Respiratory: normal respiratory effort, lungs clear to auscultation Cardiovascular: Rate/Rhythm: regular rate and regular rhythm Extremities: + edema (2+ dependent edema) Gastrointestinal (Abdomen): normal bowel sounds, soft, nontender, no hepatosplenomegaly Musculoskeletal: Extremities: no cyanosis Neurologic: Motor/Sensory: no tremor Results & Data ([facility]) Vital Signs (Past 12 Hours) Vital Signs Temp Pulse Pulse Resp BP Pulse Ox 02/07/20 08:00 83 02/07/20 07:53 36.6 C 94 H 22 101/60 94 02/07/20 03:16 37.0 C 83 19 99/56 L 95 02/07/20 00:53 37.0 C 78 20 99/55 L 94 Laboratory Results Laboratory Tests 02/07/20 02/07/20 06:26 06:26 WBC 11.42 H Hgb 7.9 L Hct 29.1 L Plt Count 211 Sodium 143 Potassium 4.0 Chloride 105 Carbon Dioxide 37 H BUN 31 H Creatinine 1.11 D Glucose 118 H PG Care Time/CCT Total # of Minutes Spent Total Time Spent with Patient: Total time spent is greater than 50% in coordination of care (as documented) at patient's floor/unit and/or counseling patient: Coding Diagnoses XIOMY (acute kidney injury) N17.9 Acute hyperkalemia E87.5 Acute on chronic diastolic (congestive) heart failure I50.33 Acute GI bleeding K92.2
--- NOTE | 2020-02-07 19:36 | Hospitalist Progress Note ---
Date of Service February 07, 2020 Assessment & Plan (1) XIOMY (acute kidney injury): acute kidney injury in history of ckd 3, most likley ATN from intravascular volume loss, complicated by / causing digoxin toxicity, did receive digibind Patient did have dialysis on 2 occasions, however since that time his renal function has improved, 02/06 in the evening did restart his Lasix at 40 twice daily which is his prehospital dose Dialysis catheter will be removed on 02/06 Marked deconditioning and morbid obesity likely will combined require rehabilitation prior to going home (2) Acute GI bleeding: *Hemorrhagic disord d/t extrinsic circulating anticoagulants* Patient has an acute gastrointestinal bleed, hgb in the 7-8 gm range has not required transfusions acute blood loss anemia, ongoing for about 5 days prehospital no significant blood loss noted while here but we did hold rivaroxaban Continue to hold this at time of discharge. Dr. Hernandez stated he would speak to Dr. Luna regarding this previous significant work up in 2019 with endosocpes and capsule was unrevealing No plan on intervention was hemodynamically unstable (3) Acute hyperkalemia: potassium was elevated at 7.7, after treatment has normalized followed by consult nephrology patient did receive additional diuretics nephrology has completed dialysis he will return to his normal oral medications of Lasix 40 twice daily (4) Acute on chronic diastolic (congestive) heart failure: Paimaci appears to be fluid overloaded, this may be complicated by his poor renal function. nephrology oversight no indication for dialysis with improving weight is reduced from admission (5) Elevated troponin: likely demand ischemia in the face of severe anemia (6) Afib: pt is with rate control, continues with lower dose atenolol digoxin was supratherapeutic, was given digibind digoxin is not restarted (7) Chronic obstructive pulmonary disease: does not appear to be in COPD exacerbation at this time. will resume home meds-trelegy, singular and nebulized albuterol and atrovent (8) Abnormal urinalysis: markedly abnormal will send culture, syed from [facility]), pt did grow Enterococcus faecalis he is without symptoms but he has a femoral dialysis cath in place and will be treated currently with po amoxil (9) SHIRA (obstructive sleep apnea): bipap at night. (10) Digoxin toxicity: pt did have digibind,plus dialysis (11) DVT prophylaxis: scd as chemoprophylaxis contraindicated in pt with Acute blood loss anemia Admission and Anticipated Discharge Date Admission Date: February 02, 2020 Subjective pt was feeling somewhat lethargic today likely still hangover from his Seroquel sleeping medication which is stopped on 02/06. Patient has had good urine output. Nephrology is recommending removal of left inguinal dialysis catheter. The patient requests his Menendez catheter stay in place he does not get out of bed. The patient is morbidly obese with a BMI of 51 and has mobility issues as he is only 5 foot 5 inches tall. Patient likely need PT OT and eventual penitentiary placement Review of Systems Review of Systems: Continues with mild distress and fatigue proving every day no headache, blurry or double vision no speech or swallowing issues no chest pain, pressure or palpitations Continues with dyspnea on exertion, no significant cough or wheezes no abdominal pain, nausea or vomiting, diarrhea or constipation no dysuria, hematuria or frequency no focal joint pain persist with peripheral swelling no back pain, CVA tenderness or radicular pain no bruising, bleeding or rashes no focal signs of weakness or numbness or altered sensation no complaints of anxiety or depression. Physical Exam Physical Exam: The patient appeared in mild distress, but better but remains sleepy today Vital signs as documented. Head exam is normocephalic atraumatic no scleral icterus Neck is with difficult to asses JVD due to morbid obesity, no carotid bruits. Lungs are diminished at the bases Cardiac exam, irregular rate controlled with [place] Abdominal exam reveals normal bowel sounds, soft non tender, no masses, distended Left groin dialysis catheter will be removed on 02/07/2020 Extremities are 2+ edematous and both pedal pulses are present Neurologic exam is alert and oriented, no focal loss of strength or sensation Skin is without bruises Psychologically is without concerns for anxiety or depression. Results & Data Results & Data ([facility]) Vital Signs (Past 12 Hours) Vital Signs Temp Pulse Pulse Pulse Resp BP Pulse Ox 02/07/20 15:36 97.9 F 80 18 104/63 91 02/07/20 11:34 97.5 F L 81 20 111/57 L 96 02/07/20 08:00 83 02/07/20 07:53 97.9 F 94 H 22 101/60 94 PG Care Time/CCT Total # of Minutes Spent Total Time Spent with Patient: Total time spent is greater than 50% in coordination of care (as documented) at patient's floor/unit and/or counseling patient: Coding Level of Care Code 21098 Subseq Hosp Care Lvl 3 Diagnoses XIOMY (acute kidney injury) N17.9 Acute GI bleeding K92.2 Acute hyperkalemia E87.5 Acute on chronic diastolic (congestive) heart failure I50.33 Elevated troponin R77.8 Afib I48.91 Chronic obstructive pulmonary disease J44.9 Abnormal urinalysis R82.90 SHIRA (obstructive sleep apnea) G47.33 Digoxin toxicity T46.0X1A DVT prophylaxis Z29.9
[2020-02-07] MEDS: MONTELUKAST SODIUM 10 MG TABLET PO SCH (22:15)
[2020-02-07] MEDS ORDERED: MICONAZOLE NITRATE POWDER 43 GM EXT PRN (22:45)
[2020-02-08 06:37] LABS: Hematocrit (blood only) 27.9 % (42-52); Hemoglobin 7.7 g/dL (14.0-18.0); Mean Corpuscular Hemoglobin 24.6 pg (25-34); Mean Corpuscular Hgb Conc 27.6 g/dL (32-36); Mean Corpuscular Volume 89.1 fL (80-100); Mean Platelet Volume 10.5 fL (7.4-10.4); Platelet Count 217 K/uL (130-400); RDW Coefficient of Variation 19.9 % (11.5-14.5); RDW Standard Deviation 65.5 fL (36.4-46.3); Red Blood Count 3.13 M/uL (4.7-6.1); White Blood Count 8.39 K/uL (4.8-10.8)
[2020-02-08 06:38] LABS: INR 1.1 (0.9-1.1)
[2020-02-08 07:01] LABS: BUN Creatinine Ratio 23.2 (10-20); Calcium 8.5 mg/dl (8.5-10.1); Est GFR (African American) 92.3; Est GFR (Non-African American) 79.7; Potassium 3.7 mmol/L (3.5-5.1)
[2020-02-08] MEDS: PANTOprazole 40 MG in SYRINGE 0 ML IV SCH ×2 (08:08→20:58)
[2020-02-08] MEDS: guaiFENesin 600 MG TABCR PO SCH ×2 (08:08→20:59)
[2020-02-08] MEDS: AMOXICILLIN 500 MG CAP PO SCH ×2 (08:08→20:59)
[2020-02-08] MEDS: FUROSEMIDE 40 MG TAB PO SCH (08:08)
[2020-02-08] MEDS: UMECLIDINIUM/VILANTEROL 62.5/25MCG 7 PUFFS/INHALER INH SCH (08:09)
[2020-02-08] MEDS: MULTIVITAMIN TAB PO SCH (08:09)
[2020-02-08] MEDS: ATENOLOL 25 MG TABLET PO SCH ×2 (08:09→21:00)
[2020-02-08] MEDS: FLUTICASONE FUROATE 100MCG 14 PUFFS/INHALER INH SCH (08:09)
--- NOTE | 2020-02-08 09:39 | Nephrology Progress Note ---
Date of Service February 08, 2020 Assessment & Plan (1) XIOMY (acute kidney injury): * ATN due to GI bleed, hypotension and impaired renal perfusion * Required acute HD 02/02 & 02/03 * Kidney function has recovered. Patient is nonoliguric. I&O's matched overnight. Electrolyte balance is acceptable. No further need for HD * I have spoken w/ critical care. They will remove temporary dialysis catheter today * No further Nephrology evaluation indicated at this time. Will sign off. Please call if further assistance is needed (2) Acute on chronic diastolic (congestive) heart failure: * Clinically improved. Continues to diurese well on his own. I&O's matched overnight (3) Acute GI bleeding: * Hgb stable. GI is following and will consider endoscopic evaluation once medically stable Admission and Anticipated Discharge Date Admission Date: February 02, 2020 Subjective Mr. Anderson was seen & examined in his hospital room this morning. He denies angina, dyspnea or fever. His temporary R femoral HD catheter remains in place. His last HD treatment was 02/03 am. Menendez catheter collection bag has yellow urine. Review of Systems Constitutional: no fever Eyes: no problem reported Ear, Nose, Mouth, Throat: no problem reported Respiratory: no dyspnea Cardiovascular: no chest pain Gastrointestinal: no abdominal pain, no nausea and no diarrhea/loose stools Integumentary: no rash Physical Exam Constitutional: + morbidly obese; no acute distress Eyes: PERRL ENMT: Mouth: no oral mucosal abnormality Neck: trachea midline Respiratory: normal respiratory effort, lungs clear to auscultation Cardiovascular: Rate/Rhythm: regular rate and regular rhythm Extremities: + edema (2+ dependent edema) Gastrointestinal (Abdomen): normal bowel sounds, soft, nontender, no hepatosplenomegaly Musculoskeletal: Extremities: no cyanosis Neurologic: Motor/Sensory: no tremor Results & Data ([facility]) Vital Signs (Past 12 Hours) Vital Signs Temp Pulse Resp BP BP Pulse Ox 02/08/20 08:16 122/72 02/08/20 07:44 36.8 C 77 16 95/59 L 91 02/07/20 22:05 36.3 C L 80 18 136/70 94 Laboratory Results Laboratory Tests 02/08/20 02/08/20 02/08/20 05:52 05:52 05:52 WBC 8.39 Hgb 7.7 L Hct 27.9 L Plt Count 217 INR 1.1 Sodium 143 Potassium 3.7 Chloride 104 Carbon Dioxide 39 H BUN 22 H Creatinine 0.95 Glucose 95 PG Care Time/CCT Total # of Minutes Spent Total Time Spent with Patient: Total time spent is greater than 50% in coordination of care (as documented) at patient's floor/unit and/or counseling patient: Coding Level of Care Code 13678 Subseq Hosp Care Lvl 3 Diagnoses XIOMY (acute kidney injury) N17.9 Acute on chronic diastolic (congestive) heart failure I50.33 Acute GI bleeding K92.2
--- NOTE | 2020-02-08 13:20 | XRay Report ---
SINGLE VIEW CHEST CLINICAL HISTORY: Respiratory failure. FINDINGS: 2 AP, portable, semierect chest radiographs are compared to study dated 02/04/2020. The exam ination is degraded by portable technique, large body habitus, and patient rotation. The heart is enl arged noting atherosclerotic calcification of the thoracic aorta. There is pulmonary vascular congest ion with evidence of interstitial edema. There are layering pleural effusions with bibasilar consolid ation. No pneumothorax is seen. The skeletal structures are osteopenic. The bony thorax is grossly in tact. A right shoulder arthroplasty is in place. Advanced arthritic change is noted in the left shoul fabiola. IMPRESSION: 1. Cardiomegaly with evidence of congestive failure and interstitial edema. This has worsened as comp ared to 02/04/2020. 2. Layering pleural effusions with bibasilar consolidation Electronically signed by: Nicolas Duenas M.D. 02/08/2020 1:19 PM
[2020-02-08 14:15] LABS: Base Excess ABG 11.2 mEq/L (-9-1.8); HCO3 ABG 38 mmol/L (19-24); Oxygen Saturation ABG 92.1 % (90-95); PCO2 ABG 76 mmHg (35-46); PO2 ABG 90 mmHg (80-95); pH ABG 7.32 (7.35-7.45)
--- NOTE | 2020-02-08 14:48 | Hospitalist Progress Note ---
Date of Service February 08, 2020 Assessment & Plan (1) XIOMY (acute kidney injury): acute kidney injury in history of ckd 3, most likley ATN from intravascular volume loss, complicated by / causing digoxin toxicity, did receive digibind Patient did have dialysis on 2 occasions, however since that time his renal function has improved Dialysis catheter will be removed on 02/07 (2) Acute GI bleeding: *Hemorrhagic disord d/t extrinsic circulating anticoagulants* Patient has an acute gastrointestinal bleed, hgb in the 7-8 gm range has not required transfusions acute blood loss anemia, ongoing for about 5 days prehospital no significant blood loss noted while here but we did hold rivaroxaban Continue to hold this at time of discharge. Dr. Hernandez stated he would speak to Dr. Luna regarding this previous significant work up in 2019 with endosocpes and capsule was unrevealing No plan on intervention was hemodynamically unstable (3) Acute hyperkalemia: potassium was elevated at 7.7, after treatment has normalized followed by consult nephrology patient did receive additional diuretics nephrology has completed dialysis (4) Acute on chronic diastolic (congestive) heart failure: Paient appears to be fluid overloaded and chest x-ray today appears worse. He will need parenteral Lasix diuresis. Will need to monitor renal function daily. (5) Elevated troponin: likely demand ischemia in the face of severe anemia (6) Afib: pt is with rate control, continues with lower dose atenolol digoxin was supratherapeutic, was given digibind digoxin is not restarted (7) Chronic obstructive pulmonary disease: Acute exacerbation of COPD with acute on chronic respiratory failure. Oxygen requirements are higher than usual. This is due to exacerbation of his COPD and worsening diastolic CHF. Hopefully will respond with diuresis. Continue nebulizers. (8) Abnormal urinalysis: Enterococcal UTI noted and treated. (9) SHIRA (obstructive sleep apnea): bipap at night. (10) Digoxin toxicity: pt did have digibind,plus dialysis (11) DVT prophylaxis: scd as chemoprophylaxis contraindicated in pt with Acute blood loss anemia Admission and Anticipated Discharge Date Admission Date: February 02, 2020 Subjective The patient is short of breath at rest. He is slightly lethargic. CO2 levels may be elevated. ABGs pending. Chest x-ray today reveals worsening edema from fluid overload. Despite his recent acute renal failure, parenteral diuresis will be necessary. Review of Systems Review of Systems: Constitutional-no fever or chills ENT-no blurred vision, no double vision, no epistaxis, no sore throat Respiratory-shortness of breath at rest. Wheezing. Nonproductive cough Cardiac-no palpitations, no chest pain, no syncope GI-no nausea, vomiting, diarrhea, melena, hematochezia -no urinary retention, no urinary incontinence, no dysuria, no hematuria Musculoskeletal-no joint pain, no muscle tenderness Skin-no bruising, no rashes, no pruritus Neuro-no isolated weakness, no paresthesia, no weakness Psych-no depression, no anxiety Physical Exam Physical Exam: General-somewhat lethargic. Morbidly obese HEENT-head atraumatic and normocephalic, TMs intact bilaterally, pupils equal and reactive to light, extraocular muscles intact Neck-no lymphadenopathy or thyromegaly, trachea midline Chest-auscultated anteriorly. Diminished breath sounds. End expiratory wheezes. Mildly tachypneic with prolonged expiratory phase Cardiac-regular rate and rhythm, normal S1 and S2 Abdomen-normal bowel sounds, nontender, no hepatosplenomegaly Extremities-no cyanosis, clubbing. Chronic bilateral edema noted Neuro-cranial nerves II through XII intact, motor and sensory function within normal limits, strength symmetrical 5/5, no focal deficits Psych-normal affect, normal mood Results & Data Results & Data ([facility]) Vital Signs (Past 12 Hours) Vital Signs Temp Pulse Resp BP BP Pulse Ox 02/08/20 11:27 36.4 C L 79 16 134/80 93 02/08/20 08:16 122/72 02/08/20 07:44 36.8 C 77 16 95/59 L 91 Laboratory Results 02/08/20 05:52 02/08/20 05:52 PG Care Time/CCT Total # of Minutes Spent Total Time Spent with Patient: Total time spent is greater than 50% in coordination of care (as documented) at patient's floor/unit and/or counseling patient: Coding Level of Care Code 92486 Subseq Hosp Care Lvl 3 Diagnoses XIOMY (acute kidney injury) N17.9 Acute GI bleeding K92.2 Acute hyperkalemia E87.5 Acute on chronic diastolic (congestive) heart failure I50.33 Elevated troponin R77.8 Afib I48.91 Chronic obstructive pulmonary disease J44.9 Abnormal urinalysis R82.90 SHIRA (obstructive sleep apnea) G47.33 Digoxin toxicity T46.0X1A DVT prophylaxis Z29.9
[2020-02-08 14:52] LABS: Allen Test Pos (Pos)
[2020-02-08] MEDS: FUROSEMIDE 40 MG in SYRINGE 0 ML IV SCH (14:59)
[2020-02-08] MEDS: MONTELUKAST SODIUM 10 MG TABLET PO SCH (20:59)
[2020-02-09] MEDS: FUROSEMIDE 40 MG in SYRINGE 0 ML IV SCH ×2 (02:44→14:31)
[2020-02-09 08:41] LABS: Hematocrit (blood only) 28.1 % (42-52); Hemoglobin 7.8 g/dL (14.0-18.0); Mean Corpuscular Hemoglobin 24.7 pg (25-34); Mean Corpuscular Hgb Conc 27.8 g/dL (32-36); Mean Corpuscular Volume 88.9 fL (80-100); Mean Platelet Volume 9.9 fL (7.4-10.4); Platelet Count 216 K/uL (130-400); RDW Coefficient of Variation 19.7 % (11.5-14.5); RDW Standard Deviation 64.6 fL (36.4-46.3); Red Blood Count 3.16 M/uL (4.7-6.1); White Blood Count 7.64 K/uL (4.8-10.8)
[2020-02-09 09:00] LABS: Basophils # (auto) 0.01 K/uL (0-0.2); Basophils % (auto) 0.1 %; Eosinophils # (auto) 0.24 K/uL (0-0.5); Eosinophils % (auto) 3.1 %; Hypochromasia Present; Immature Granulocytes # (auto) 0.01 K/uL (0.00-0.02); Immature Granulocytes % (auto) 0.1 %; Lymphocytes # (auto) 0.76 K/uL (1.2-3.4); Lymphocytes % (auto) 9.9 %; Monocytes # (auto) 1.08 K/uL (0.11-0.59); Monocytes % (auto) 14.1 %; Neutrophils # (auto) 5.54 K/uL (1.4-6.5); Neutrophils % (auto) 72.7 %; Ovalocytes 1+; Polychromasia 1+
[2020-02-09] MEDS: UMECLIDINIUM/VILANTEROL 62.5/25MCG 7 PUFFS/INHALER INH SCH (09:17)
[2020-02-09] MEDS: AMOXICILLIN 500 MG CAP PO SCH ×2 (09:19→21:04)
[2020-02-09] MEDS: MULTIVITAMIN TAB PO SCH (09:20)
[2020-02-09] MEDS: guaiFENesin 600 MG TABCR PO SCH ×2 (09:20→21:04)
[2020-02-09] MEDS: FLUTICASONE FUROATE 100MCG 14 PUFFS/INHALER INH SCH (09:21)
[2020-02-09 09:25] LABS: BUN Creatinine Ratio 18.7 (10-20); Calcium 8.7 mg/dl (8.5-10.1); Creatinine Clr Calc Pharmacy 102.7 ml/min; Est GFR (African American) 100.4; Est GFR (Non-African American) 86.6; Potassium 3.4 mmol/L (3.5-5.1)
[2020-02-09] MEDS: ATENOLOL 25 MG TABLET PO SCH ×2 (09:26→21:05)
[2020-02-09] MEDS: PANTOprazole 40 MG in SYRINGE 0 ML IV SCH ×2 (09:40→21:03)
[2020-02-09] MEDS: POTASSIUM CHLORIDE CRTAB 20 MEQ TABCR PO SCH ×2 (12:00→21:03)
--- NOTE | 2020-02-09 12:21 | Hospitalist Progress Note ---
Date of Service February 09, 2020 Assessment & Plan (1) XIOMY (acute kidney injury): acute kidney injury in history of ckd 3, most likley ATN from intravascular volume loss, complicated by / causing digoxin toxicity, did receive digibind Patient did have dialysis on 2 occasions, however since that time his renal function has improved Dialysis catheter removed on 02/07 (2) Acute GI bleeding: *Hemorrhagic disord d/t extrinsic circulating anticoagulants* Patient has an acute gastrointestinal bleed, hgb in the 7-8 gm range has not required transfusions acute blood loss anemia, ongoing for about 5 days prehospital no significant blood loss noted while here but we did hold rivaroxaban Continue to hold this at time of discharge. Dr. Hernandez stated he would speak to Dr. Luna regarding this previous significant work up in 2019 with endosocpes and capsule was unrevealing No plan on intervention was hemodynamically unstable (3) Acute hyperkalemia: potassium was elevated at 7.7 on admission. Normalized with resolution of renal failure. Now hypokalemic with diuresis. Oral potassium replacement u n[place]way. Serial lab studies. (4) Acute on chronic diastolic (congestive) heart failure: Paient is now fluid overloaded and chest x-ray 02/07 appears worse. Very good diuretic response with intravenous Lasix started February 07. Creatinine is trending down and now normal. Will need to monitor renal function daily. (5) Elevated troponin: likely demand ischemia in the face of severe anemia (6) Afib: pt is with rate control, continues with lower dose atenolol digoxin was supratherapeutic, was given digibind digoxin is not restarted (7) Chronic obstructive pulmonary disease: Acute exacerbation of COPD with acute on chronic respiratory failure. Oxygen requirements are higher than usual. This is due to exacerbation of his COPD and worsening diastolic CHF. BiPAP in place. He should improve with continued diuresis. Repeat ABGs today, February 08. Continue nebulizers. (8) Abnormal urinalysis: Enterococcal UTI noted and treated. (9) SHIRA (obstructive sleep apnea): bipap at night. (10) Digoxin toxicity: pt did have digibind,plus dialysis (11) DVT prophylaxis: scd as chemoprophylaxis contraindicated in pt with Acute blood loss anemia (12) Acute and chronic respiratory failure with hypercapnia: Treat underlying CHF. BiPAP until hypercarbia is back to baseline. Repeat ABGs today, February 08. Present on Admission?: No Admission and Anticipated Discharge Date Admission Date: February 02, 2020 Subjective The patient had a brisk diuresis with intravenous Lasix. Chest x-ray revealed CHF with effusions consistent with acute exacerbation of his chronic diastolic CHF. Creatinine continues to improve. Potassium replacement underway. Repeat ABGs pending. Hopefully he can come off the BiPAP today. Review of Systems Review of Systems: Constitutional-no fever or chills ENT-no blurred vision, no double vision, no epistaxis, no sore throat Respiratory-no cough, no wheezing. Dyspnea with minimal exertion Cardiac-no palpitations, no chest pain, no syncope GI-no nausea, vomiting, diarrhea, melena, hematochezia -no urinary retention, no urinary incontinence, no dysuria, no hematuria Musculoskeletal-no joint pain, no muscle tenderness Skin-no bruising, no rashes, no pruritus Neuro-no isolated weakness, no paresthesia, no weakness Psych-no depression, no anxiety Physical Exam Physical Exam: General-alert and oriented x3, no fevers, no chills HEENT-head atraumatic and normocephalic, TMs intact bilaterally, pupils equal and reactive to light, extraocular muscles intact Neck-no lymphadenopathy or thyromegaly, trachea midline Chest-diminished breath sounds anteriorly bilaterally. Tachypnea has resolved. No respiratory distress. Cardiac-regular rate and rhythm, normal S1 and S2, no murmurs Abdomen-normal bowel sounds, nontender, no hepatosplenomegaly Extremities-no cyanosis, clubbing. 2-3+ pitting edema bilateral lower extremities below the knees Neuro-cranial nerves II through XII intact, motor and sensory function within normal limits, strength symmetrical 5/5, no focal deficits Psych-normal affect, normal mood Results & Data Results & Data ([facility]) Vital Signs (Past 12 Hours) Vital Signs Temp Pulse Pulse Resp BP BP Pulse Ox 02/09/20 09:47 68 26 H 93 02/09/20 09:25 91 H 119/71 02/09/20 08:12 36.5 C 84 20 125/62 91 02/09/20 03:37 37.1 C 92 H 18 92/53 L 95 02/09/20 00:55 88 16 96 Laboratory Results 02/09/20 08:20 02/09/20 08:20 PG Care Time/CCT Total # of Minutes Spent Total Time Spent with Patient: Total time spent is greater than 50% in coordina tion of care (as documented) at patient's floor/unit and/or counseling patient: Coding Level of Care Code 07168 Subseq Hosp Care Lvl 3 Diagnoses XIOMY (acute kidney injury) N17.9 Acute GI bleeding K92.2 Acute hyperkalemia E87.5 Acute on chronic diastolic (congestive) heart failure I50.33 Elevated troponin R77.8 Afib I48.91 Chronic obstructive pulmonary disease J44.9 Abnormal urinalysis R82.90 SHIRA (obstructive sleep apnea) G47.33 Digoxin toxicity T46.0X1A DVT prophylaxis Z29.9 Acute and chronic respiratory failure with hypercapnia J96.22
[2020-02-09 12:23] LABS: Base Excess ABG 14.1 mEq/L (-9-1.8); HCO3 ABG 42 mmol/L (19-24); PCO2 ABG 76 mmHg (35-46); PO2 ABG 80 mmHg (80-95); pH ABG 7.36 (7.35-7.45)
[2020-02-09 12:24] LABS: Allen Test Pos (Pos)
[2020-02-09] MEDS: MONTELUKAST SODIUM 10 MG TABLET PO SCH (21:05)
[2020-02-10] MEDS: FUROSEMIDE 40 MG in SYRINGE 0 ML IV SCH (02:17)
[2020-02-10 07:22] LABS: BUN Creatinine Ratio 16.6 (10-20); Calcium 8.8 mg/dl (8.5-10.1); Creatinine Clr Calc Pharmacy 111.8 ml/min; Est GFR (Non-African American) 89.7; Potassium 3.4 mmol/L (3.5-5.1)
[2020-02-10 07:24] LABS: Hematocrit (blood only) 28.8 % (42-52); Hemoglobin 7.8 g/dL (14.0-18.0); Mean Corpuscular Hemoglobin 24.3 pg (25-34); Mean Corpuscular Hgb Conc 27.1 g/dL (32-36); Mean Corpuscular Volume 89.7 fL (80-100); Mean Platelet Volume 10.4 fL (7.4-10.4); Platelet Count 240 K/uL (130-400); RDW Coefficient of Variation 19.8 % (11.5-14.5); RDW Standard Deviation 65.5 fL (36.4-46.3); Red Blood Count 3.21 M/uL (4.7-6.1); White Blood Count 6.93 K/uL (4.8-10.8)
[2020-02-10 07:39] LABS: Anisocytosis Present; Basophils # (auto) 0.02 K/uL (0-0.2); Basophils % (auto) 0.3 %; Eosinophils # (auto) 0.25 K/uL (0-0.5); Eosinophils % (auto) 3.6 %; Hypochromasia Present; Immature Granulocytes # (auto) 0.01 K/uL (0.00-0.02); Immature Granulocytes % (auto) 0.1 %; Lymphocytes # (auto) 1.02 K/uL (1.2-3.4); Lymphocytes % (auto) 14.7 %; Monocytes # (auto) 0.84 K/uL (0.11-0.59); Monocytes % (auto) 12.1 %; Neutrophils # (auto) 4.79 K/uL (1.4-6.5); Neutrophils % (auto) 69.2 %; Ovalocytes 1+
[2020-02-10] MEDS: AMOXICILLIN 500 MG CAP PO SCH ×2 (08:43→20:18)
[2020-02-10] MEDS: guaiFENesin 600 MG TABCR PO SCH ×2 (08:44→20:19)
[2020-02-10] MEDS: MULTIVITAMIN TAB PO SCH (08:44)
[2020-02-10] MEDS: POTASSIUM CHLORIDE CRTAB 20 MEQ TABCR PO SCH ×2 (08:45→20:19)
[2020-02-10] MEDS: ATENOLOL 25 MG TABLET PO SCH ×2 (08:45→20:18)
--- NOTE | 2020-02-10 09:01 | XRay Report ---
SINGLE VIEW CHEST CLINICAL HISTORY: Dyspnea. FINDINGS: And AP, portable, upright chest radiograph is compared to study dated 02/08/2020. The examin ation is degraded by portable technique and apical lordotic positioning. The heart is enlarged noting atherosclerotic calcification of the thoracic aorta. There is pulmonary vascular congestion with rosalinda dence of interstitial edema. There are layering pleural effusions with bibasilar consolidation. No pn eumothorax is seen. The skeletal structures are osteopenic. The bony thorax is grossly intact. A righ t shoulder arthroplasty is in place. Advanced arthritic change is noted in the left shoulder. IMPRESSION: 1. Cardiomegaly with evidence of congestive failure and interstitial edema. This has modestly improve d as compared to 02/08/2020. 2. Layering pleural effusions with bibasilar consolidation Electronically signed by: Nicolas Duenas M.D. 02/10/2020 8:59 AM
[2020-02-10] MEDS: UMECLIDINIUM/VILANTEROL 62.5/25MCG 7 PUFFS/INHALER INH SCH (09:34)
[2020-02-10] MEDS: PANTOprazole 40 MG in SYRINGE 0 ML IV SCH ×2 (09:35→20:19)
[2020-02-10] MEDS: FLUTICASONE FUROATE 100MCG 14 PUFFS/INHALER INH SCH (09:37)
--- NOTE | 2020-02-10 15:10 | Hospitalist Progress Note ---
Date of Service February 10, 2020 Assessment & Plan (1) Acute and chronic respiratory failure with hypercapnia: Treating underlying CHF. likely component of SHIRA/obesity hypoventilation as well bipap prn (2) Acute on chronic diastolic (congestive) heart failure: Paient is now fluid overloaded and chest x-ray 02/07 appears worse -- some improvement in CXR on 02-09 Needing to hold diuresis in setting of metabolic alkalosis - bicarb 44 Will resume diuretics again tomorrow Creatinine is trending down and now normal. monitor renal function daily (3) SHIRA (obstructive sleep apnea): bipap at night 12/12 (4) Chronic obstructive pulmonary disease: Acute exacerbation of COPD with acute on chronic respiratory failure. Oxygen requirements are higher than usual. This is due to exacerbation of his COPD and worsening diastolic CHF. BiPAP in place. He should improve with continued diuresis. Repeat ABGs today, February 08. Continue nebulizers. (5) Afib: pt is with rate control, continues with lower dose atenolol digoxin was supratherapeutic, was given digibind digoxin is not restarted (6) Acute GI bleeding: *Hemorrhagic disord d/t extrinsic circulating anticoagulants* Patient has an acute gastrointestinal bleed, hgb in the 7-8 gm range has not required transfusions acute blood loss anemia, ongoing for about 5 days prehospital no significant blood loss noted while here but we did hold rivaroxaban Continue to hold this at time of discharge. Dr. Hernandez stated he would speak to Dr. Luna regarding this previous significant work up in 2019 with endosocpes and capsule was unrevealing No plan on intervention was hemodynamically unstable (7) XIOMY (acute kidney injury): acute kidney injury in history of ckd 3, most likely ATN from intravascular volume loss, complicated by / causing digoxin toxicity, did receive digibind Patient did have dialysis on 2 occasions, however since that time his renal function has improved Dialysis catheter removed on 02/07 (8) Acute hyperkalemia: potassium was elevated at 7.7 on admission. Normalized with resolution of renal failure. Now hypokalemic with diuresis. Oral potassium replacement underway. Serial lab studies. (9) Elevated troponin: likely demand ischemia in the face of severe anemia (10) Digoxin toxicity: pt did have digibind,plus dialysis (11) Abnormal urinalysis: Enterococcal UTI noted and treated. (12) DVT prophylaxis: SCD as chemoprophylaxis contraindicated in pt with Acute blood loss anemia Admission and Anticipated Discharge Date Admission Date: February 02, 2020 Subjective Mr. Anderson reports that he did not sleep well. He woke up feeling short of breath. He states that he did not wear his bipap over night -- RT confirmed that he did wear it over night. Patient denies cough. Reports that his edema is improving, though still present in both legs. Agreeable to trying compression hose. Denies nausea, vomiting, diarrhea. Eating well. Review of Systems Constitutional: no fever, no chills, no fatigue, no weakness, no anorexia, no weight loss and no weight gain Ear, Nose, Mouth, Throat: no nasal congestion, no sore throat and no dysphagia Respiratory: no cough and no dyspnea Cardiovascular: no chest pain, no dyspnea on exertion, no orthopnea and no palpitations Gastrointestinal: no abdominal pain, no nausea, no vomiting, no hematemesis, no dysphagia, no constipation, no diarrhea/loose stools, no blood in stools and no melena Musculoskeletal: no back pain, no joint pain, no myalgia and no muscle weakness Integumentary: no rash, no lesions, no skin ulcer, no erythema, no dry skin and no pruritus Neurologic: no falls, no localized weakness, no generalized weakness, no numbness, no paresthesia, no tremor(s) and no headache(s) Psychiatric: no depression, no suicidal ideation, no homicidal ideation and no anxiety Endocrine: no cold intolerance and no heat intolerance Hematologic / Lymphatic: no easy bleeding and no easy bruising Physical Exam Constitutional: well developed, well nourished and + morbidly obese; no acute distress Eyes: PERRL, conjunctivae normal, anicteric sclerae ENMT: Mouth: oral mucous membranes not dry Respiratory: normal respiratory effort; no respiratory distress and no labored breathing Auscultation: lungs clear to auscultation bilaterally; no crackles, no rales, no rhonchi and no wheezes Cardiovascular: Rate/Rhythm: regular rate and regular rhythm Heart Sounds: no murmur and no cardiac rub Vessels: normal peripheral pulses and radial pulses present; no JVD Extremities: + edema Gastrointestinal (Abdomen): Inspection/Auscultation: abdomen normal to inspection and normal bowel sounds; abdomen not distended Pe rcussion/Palpation: abdomen soft; abdomen nontender, no guarding, abdomen not rigid and no hepatosplenomegaly Musculoskeletal: Head/Neck/Chest: normocephalic and head atraumatic Spine: no cervical spinal tenderness, no cervical muscular tenderness, no thoracic spinal tenderness and no lumbar spinal tenderness Skin: no rashes, warm and dry Neurologic: CN's II-XI intact bilaterally and moves all extremities Motor/Sensory: no tremor and no sensory deficit Psychiatric: Orientation: alert, oriented to person, oriented to place and oriented to time Apperance: appropriately groomed; not disheveled Affect: euthymic affect; no anxious affect and no tearful affect Genitourinary: no Menendez catheter Results & Data Results & Data ([facility]) Vital Signs (Past 12 Hours) Vital Signs Temp Pulse Pulse Resp BP BP Pulse Ox 02/10/20 15:02 37.2 C 76 20 142/70 H 100 02/10/20 14:24 97 02/10/20 14:21 88 22 95 02/10/20 08:40 78 130/63 02/10/20 07:56 37.0 C 77 22 127/68 95 Laboratory Results Abnormal lab results 02/10/20 02/10/20 Range/Units 05:45 05:45 RBC 3.21 L (4.7-6.1) M/uL Hgb 7.8 L (14.0-18.0) g/dL Hct 28.8 L (42-52) % MCH 24.3 L (25-34) pg MCHC 27.1 L (32-36) g/dL RDW Std Deviation 65.5 H (36.4-46.3) fL RDW Coeff of Ezekiel 19.8 H (11.5-14.5) % Lymph # (Auto) 1.02 L (1.2-3.4) K/uL [place] # (Auto) 0.84 H (0.11-0.59) K/uL Potassium 3.4 L (3.5-5.1) mmol/L Carbon Dioxide 44 H* (21-32) mmol/L Anion Gap 1.0 L (3-11) Medications Administered Current Inpatient Medications Albuterol (Albut/Ipratrop 3mg/0.5mg Neb 3 Ml Vial) 3 ml NEB Q6H PRN PRN Reason: Wheezing Stop: 03/05/20 09:00 Amoxicillin (Amoxicillin 500 Mg Cap) 1,000 mg PO BID [facility] Stop: 02/16/20 20:59 Last Admin: 02/10/20 08:43 Dose: 1,000 mg Documented by: Atenolol (Atenolol 25 Mg Tablet) 25 mg PO BID [facility] Stop: 03/05/20 20:59 Last Admin: 02/10/20 08:45 Dose: 25 mg Documented by: Fluticasone Furoate (Fluticasone Furoate 100mcg 14 Puffs/Inhaler) 1 puffs INH QAM [facility] Stop: 03/04/20 08:59 Last Admin: 02/10/20 09:37 Dose: 1 puffs Documented by: Guaifenesin (Guaifenesin 600 Mg Tabcr) 600 mg PO Q12 [facility] Stop: 03/05/20 20:59 Last Admin: 02/10/20 08:44 Dose: 600 mg Documented by: Heparin Sodium (Beef Lung) (Heparin 10 Unit/Ml 5 Ml Flush) 5 ml FLUSH PRN PRN PRN Reason: Flush Stop: 03/09/20 15:09 Last Admin: 02/10/20 09:35 Dose: 5 ml Documented by: Pantoprazole Sodium 40 mg/ (Syringe) 10 mls @ 5 mls/min IV BID [facility] Stop: 03/04/20 08:59 Last Admin: 02/10/20 09:35 Dose: 5 mls/min Documented by: Miconazole Nitrate (Miconazole Nitrate Powder 43 Gm) 1 appln EXT PRN PRN PRN Reason: Affected Skin Folds Stop: 03/08/20 22:44 Last Admin: 02/08/20 08:09 Dose: 1 appln Documented by: Montelukast Sodium (Montelukast Sodium 10 Mg Tablet) 10 mg PO HS [facility] Stop: 03/03/20 20:59 Last Admin: 02/09/20 21:05 Dose: 10 mg Documented by: Multivitamins (Multivitamin Tab) 1 tab PO QAM [facility] Stop: 03/09/20 08:59 Last Admin: 02/10/20 08:44 Dose: 1 tab Documented by: Potassium Chloride (Potassium Chloride 20 Meq Tabcr) 20 meq PO BID [facility] Stop: 03/10/20 09:44 Last Admin: 02/10/20 08:45 Dose: 20 meq Documented by: Umeclidinium/Vilanterol (Umeclidinium/Vilanterol 62.5/25mcg 7 Puffs/Inhaler) 1 puffs INH QAM [facility] Stop: 03/04/20 08:59 Last Admin: 02/10/20 09:34 Dose: 1 puffs Documented by: PG Care Time/CCT Total # of Minutes Spent Total Time Spent with Patient: Total time spent is greater than 50% in coordination of care (as documented) at patient's floor/unit and/or counseling patient: Coding Level of Care Code 10533 Subseq Hosp Care Lvl 3 Diagnoses Acute and chronic respiratory failure with hypercapnia J96.22 Acute on chronic diastolic (congestive) heart failure I50.33 SHIRA (obstructive sleep apnea) G47.33 Chronic obstructive pulmonary disease J44.9 COPD type: unspecified COPD Afib I48.91 Atrial fibrillation type: unspecified Acute GI bleeding K92.2 XIOMY (acute kidney injury) N17.9 Acute hyperkalemia E87.5 Elevated troponin R77.8 Digoxin toxicity T46.0X1S Encounter type: sequela Injury intent: accidental or unintentional Abnormal urinalysis R82.90 DVT prophylaxis Z29.9 (1) Digoxin toxicity Encounter type: sequela Injury intent: accidental or unintentional Qualified Code(s): T46.0X1S - Poisoning by cardiac-stimulant glycosides and drugs of similar action, accidental (unintentional), sequela (2) Afib Atrial fibrillation type: unspecified Qualified Code(s): I48.91 - Unspecified atrial fibrillation (3) Chronic obstructive pulmonary disease COPD type: unspecified COPD Qualified Code(s): J44.9 - Chronic obstructive pulmonary disease, unspecified
[2020-02-10] MEDS: MONTELUKAST SODIUM 10 MG TABLET PO SCH (20:18)
[2020-02-11 06:38] LABS: Hematocrit (blood only) 28.7 % (42-52); Hemoglobin 7.6 g/dL (14.0-18.0); Mean Corpuscular Hemoglobin 23.9 pg (25-34); Mean Corpuscular Hgb Conc 26.5 g/dL (32-36); Mean Corpuscular Volume 90.3 fL (80-100); Mean Platelet Volume 10.4 fL (7.4-10.4); Platelet Count 248 K/uL (130-400); RDW Coefficient of Variation 19.7 % (11.5-14.5); RDW Standard Deviation 65.1 fL (36.4-46.3); Red Blood Count 3.18 M/uL (4.7-6.1); White Blood Count 7.06 K/uL (4.8-10.8)
[2020-02-11 07:04] LABS: BUN Creatinine Ratio 16.2 (10-20); Calcium 8.4 mg/dl (8.5-10.1); Est GFR (African American) 107.4; Est GFR (Non-African American) 92.7; Magnesium 1.9 mg/dl (1.8-2.4); Phosphorus 2.3 mg/dl (2.5-4.9); Potassium 3.6 mmol/L (3.5-5.1)
[2020-02-11 08:05] LABS: Anisocytosis Present; Basophils # (auto) 0.02 K/uL (0-0.2); Basophils % (auto) 0.3 %; Eosinophils # (auto) 0.24 K/uL (0-0.5); Eosinophils % (auto) 3.4 %; Hypochromasia Present; Immature Granulocytes # (auto) 0.01 K/uL (0.00-0.02); Immature Granulocytes % (auto) 0.1 %; Lymphocytes # (auto) 1.02 K/uL (1.2-3.4); Lymphocytes % (auto) 14.4 %; Monocytes # (auto) 0.85 K/uL (0.11-0.59); Neutrophils # (auto) 4.92 K/uL (1.4-6.5); Neutrophils % (auto) 69.8 %; Ovalocytes 1+
[2020-02-11] MEDS: FLUTICASONE FUROATE 100MCG 14 PUFFS/INHALER INH SCH (08:43)
[2020-02-11] MEDS: PANTOprazole 40 MG in SYRINGE 0 ML IV SCH ×2 (08:43→20:13)
[2020-02-11] MEDS: UMECLIDINIUM/VILANTEROL 62.5/25MCG 7 PUFFS/INHALER INH SCH (08:43)
[2020-02-11] MEDS: ATENOLOL 25 MG TABLET PO SCH ×2 (08:44→20:17)
[2020-02-11] MEDS: AMOXICILLIN 500 MG CAP PO SCH ×2 (08:44→20:14)
[2020-02-11] MEDS: POTASSIUM CHLORIDE CRTAB 20 MEQ TABCR PO SCH ×2 (08:44→20:14)
[2020-02-11] MEDS: guaiFENesin 600 MG TABCR PO SCH ×2 (08:44→20:14)
[2020-02-11] MEDS: MULTIVITAMIN TAB PO SCH (08:44)
--- NOTE | 2020-02-11 08:58 | Hospitalist Progress Note ---
Date of Service February 11, 2020 Assessment & Plan (1) Acute on chronic respiratory failure with hypoxia and hypercapnia: Requires 4L oxygen at baseline -- up to 5L today Treating underlying CHF. 11 added COPD exacerbation treatment likely component of SHIRA/obesity hypoventilation as well bipap at bed and prn (2) Acute on chronic diastolic (congestive) heart failure: Paient is fluid overloaded 02-07 Chest x-ray appears worse 02-09 CXR some improvement, unfortunately needed to hold diuresis in setting of metabolic alkalosis - bicarb 44 02-10 again unable to diurese due to alkalosis 02-11 resume diruresis lasix 40mg IV daily monitor renal function daily (3) Chronic obstructive pulmonary disease: Acute exacerbation of COPD Oxygen requirements are higher than usual and wheezing started prednisone 40mg x 5 days Continue nebulizers -- change from PRN to q6h scheduled (4) Metabolic alkalosis: 02-09 held lasix, bicarb minimal improvement 02-10 gave acetazolamide 500mg IV once (5) SHIRA (obstructive sleep apnea): bipap at night 12/12 (6) Afib: pt is with rate control, continues with lower dose atenolol digoxin was supratherapeutic, was given digibind digoxin is not restarted (7) Acute GI bleeding: *Hemorrhagic disord d/t extrinsic circulating anticoagulants* Patient has an acute gastrointestinal bleed, hgb in the 7-8 gm range has not required transfusions acute blood loss anemia, ongoing for about 5 days prehospital no significant blood loss noted while here but we did hold rivaroxaban Continue to hold this at time of discharge. Dr. Hernandez stated he would speak to Dr. Luna regarding this previous significant work up in 2019 with endosocpes and capsule was unrevealing No plan on intervention was hemodynamically unstable (8) XIOMY (acute kidney injury): acute kidney injury in history of ckd 3, most likely ATN from intravascular volume loss, complicated by / causing digoxin toxicity, did receive digibind Patient did have dialysis on 2 occasions, however since that time his renal function has improved Dialysis catheter removed on 02/07 (9) Acute hyperkalemia: potassium was elevated at 7.7 on admission. Normalized with resolution of renal failure. Now hypokalemic with diuresis. Oral potassium replacement underway. Serial lab studies. (10) Elevated troponin: likely demand ischemia in the face of severe anemia (11) Digoxin toxicity: pt did have digibind,plus dialysis (12) Abnormal urinalysis: Enterococcal UTI noted and treated. (13) DVT prophylaxis: SCD as chemoprophylaxis contraindicated in pt with Acute blood loss anemia Admission and Anticipated Discharge Date Admission Date: February 02, 2020 Subjective Patient slept better last night. Wore Bipap. Required frequent breaks from Bipap in order to take sips of water. This morning, requiring 5L up from his baseline 4L. Patient denies chest pain, abdominal pain. Endorses headache. No nausea, no vomiting. Edema has improved. His hands are more wrinkly. Persistent shortness of breath with rest and worse with any exertion. States he can not walk to bedside commode without needing a break to catch his breath. Review of Systems Constitutional: no fever, no chills, no fatigue, no weakness, no anorexia, no weight loss and no weight gain Ear, Nose, Mouth, Throat: no nasal congestion, no sore throat and no dysphagia Respiratory: + dyspnea; no cough Cardiovascular: + dyspnea on exertion, + orthopnea and + edema; no chest pain and no palpitations Gastrointestinal: no abdominal pain, no nausea, no vomiting, no hematemesis, no dysphagia, no constipation, no diarrhea/loose stools, no blood in stools and no melena Musculoskeletal: no back pain, no joint pain, no myalgia and no muscle weakness Integumentary: no rash, no lesions, no skin ulcer, no erythema, no dry skin and no pruritus Neurologic: no falls, no localized weakness, no generalized weakness, no numbness, no paresthesia, no tremor(s) and no headache(s) Psychiatric: no depression, no suicidal ideation, no homicidal ideation and no anxiety Endocrine: no cold intolerance and no heat intolerance Hematologic / Lymphatic: no easy bleeding and no easy bruising Physical Exam Constitutional: well developed, well nourished and + morbidly obese; no acute distress Eyes: PERRL, conjunctivae normal, anicteric sclerae ENMT: Mouth: oral mucous membranes not dry Respiratory: normal respiratory effort and + labored breathing; no respiratory distress and + not able to speak in complete sentence Auscultation: + rales and + wheezes; + lungs not clear to auscultation, no crackles and no rhonchi Cardiovascular: Rate/Rhythm: regular rate and regular rhythm Heart Sounds: no murmur and no cardiac rub Vessels: normal peripheral pulses and radial pulses present; no JVD Extremities: + edema Gastrointestinal (Abdomen): Inspection/Auscultation: abdomen normal to inspection and normal bowel sounds; abdomen not distended Percussion/Palpation: abdomen soft; abdomen nontender, no guarding, abdomen not rigid and no hepatosplenomegaly Musculoskeletal: Head/Neck/Chest: normocephalic and head atraumatic Spine: no cervical spinal tenderness, no cervical muscular tenderness, no thoracic spinal tenderness and no lumbar spinal tenderness Skin: no rashes, warm and dry Neurologic: CN's II-XI intact bilaterally and moves all extremities Motor/Sensory: no tremor and no sensory deficit Psychiatric: Orientation: alert, oriented to person, oriented to place and oriented to time Apperance: appropriately groomed; not disheveled Affect: euthymic affect; no anxious affect and no tearful affect Results & Data Results & Data ([facility]) Vital Signs (Past 12 Hours) Vital Signs Temp Pulse Pulse Resp BP BP Pulse Ox 02/11/20 07:52 37.0 C 98 H 20 137/77 93 02/11/20 02:00 92 H 29 H 95 02/10/20 23:50 91 02/10/20 22:57 36.8 C 74 16 128/72 95 02/10/20 22:06 87 22 91 Laboratory Results Abnormal lab results 02/11/20 02/11/20 02/11/20 Range/Units 05:36 05:36 12:15 RBC 3.18 L (4.7-6.1) M/uL Hgb 7.6 L (14.0-18.0) g/dL Hct 28.7 L (42-52) % MCH 23.9 L (25-34) pg MCHC 26.5 L (32-36) g/dL RDW Std Deviation 65.1 H (36.4-46.3) fL RDW Coeff of Ezekiel 19.7 H (11.5-14.5) % Lymph # (Auto) 1.02 L (1.2-3.4) K/uL [place] # (Auto) 0.85 H (0.11-0.59) K/uL Carbon Dioxide 43 H* 44 H* (21-32) mmol/L Anion Gap -1.0 L -2.0 L (3-11) Glucose 134 H (70-99) mg/dl Calcium 8.4 L (8.5-10.1) mg/dl Phosphorus 2.3 L (2.5-4.9) mg/dl 02/11/20 Range/Units 17:51 RBC (4.7-6.1) M/uL Hgb (14.0-18.0) g/dL Hct (42-52) % MCH (25-34) pg MCHC (32-36) g/dL RDW Std Deviation (36.4-46.3) fL RDW Coeff of Ezekiel (11.5-14.5) % Lymph # (Auto) (1.2-3.4) K/uL [place] # (Auto) (0.11-0.59) K/uL Carbon Dioxide 38 H (21-32) mmol/L Anion Gap (3-11) Glucose 129 H (70-99) mg/dl Calcium (8.5-10.1) mg/dl Phosphorus (2.5-4.9) mg/dl Medications Administered Current Inpatient Medications Acetaminophen (Acetaminophen 325 Mg Tab) 325 mg PO Q4H PRN PRN Reason: Pain Stop: 03/12/20 16:19 Last Admin: 02/11/20 19:08 Dose: 325 mg Documented by: Albuterol (Albut/Ipratrop 3mg/0.5mg Neb 3 Ml Vial) 3 ml NEB Q6H PRN PRN Reason: Wheezing Stop: 03/05/20 09:00 Amoxicillin (Amoxicillin 500 Mg Cap) 1,000 mg PO BID [facility] Stop: 02/16/20 20:59 Last Admin: 02/11/20 08:44 Dose: 1,000 mg Documented by: Atenolol (Atenolol 25 Mg Tablet) 25 mg PO BID [facility] Stop: 03/05/20 20:59 Last Admin: 02/11/20 08:44 Dose: 25 mg Documented by: Fluticasone Furoate (Fluticasone Furoate 100mcg 14 Puffs/Inhaler) 1 puffs INH QAM [facility] Stop: 03/04/20 08:59 Last Admin: 02/11/20 08:43 Dose: 1 puffs Documented by: Guaifenesin (Guaifenesin 600 Mg Tabcr) 600 mg PO Q12 [facility] Stop: 03/05/20 20:59 Last Admin: 02/11/20 08:44 Dose: 600 mg Documented by: Heparin Sodium (Beef Lung) (Heparin 10 Unit/Ml 5 Ml Flush) 5 ml FLUSH PRN PRN PRN Reason: Flush Stop: 03/09/20 15:09 Last Admin: 02/11/20 05:36 Dose: 5 ml Documented by: Pantoprazole Sodium 40 mg/ (Syringe) 10 mls @ 5 mls/min IV BID [facility] Stop: 03/04/20 08:59 Last Admin: 02/11/20 08:43 Dose: 5 mls/min Documented by: Furosemide 40 mg/ Syringe 4 mls @ 4 mls/min IV DAILY [facility] Stop: 03/13/20 08:59 Miconazole Nitrate (Miconazole Nitrate Powder 43 Gm) 1 appln EXT PRN PRN PRN Reason: Affected Skin Folds Stop: 03/08/20 22:44 Last Admin: 02/08/20 08:09 Dose: 1 appln Documented by: Montelukast Sodium (Montelukast Sodium 10 Mg Tablet) 10 mg PO HS [facility] Stop: 03/03/20 20:59 Last Admin: 02/10/20 20:18 Dose: 10 mg Documented by: Multivitamins (Multivitamin Tab) 1 tab PO QAM [facility] Stop: 03/09/20 08:59 Last Admin: 02/11/20 08:44 Dose: 1 tab Documented by: Potassium Chloride (Potassium Chloride 20 Meq Tabcr) 20 meq PO BID [facility] Stop: 03/10/20 09:44 Last Admin: 02/11/20 08:44 Dose: 20 meq Documented by: Prednisone (Prednisone 20 Mg Tab) 40 mg PO DAILY [facility] Stop: 02/16/20 10:29 Last Admin: 02/11/20 19:07 Dose: 40 mg Documented by: Umeclidinium/Vilanterol (Umeclidinium/Vilanterol 62.5/25mcg 7 Puffs/Inhaler) 1 puffs INH QAM [facility] Stop: 03/04/20 08:59 Last Admin: 02/11/20 08:43 Dose: 1 puffs Documented by: PG Care Time/CCT Total # of Minutes Spent Total Time Spent with Patient: Total time spent is greater than 50% in coordination of care (as documented) at patient's floor/unit and/or counseling patient: Coding Level of Care Code 47247 Subseq Hosp Care Lvl 3 Diagnoses Acute on chronic respiratory failure with hypoxia and hypercapnia J96.21; J96.22 Acute on chronic diastolic (congestive) heart failure I50.33 Chronic obstructive pulmonary disease J44.9 COPD type: unspecified COPD Metabolic alkalosis E87.3 SHIRA (obstructive sleep apnea) G47.33 Afib I48.91 Atrial fibrillation type: unspecified Acute GI bleeding K92.2 XIOMY (acute kidney injury) N17.9 Acute hyperkalemia E87.5 Elevated troponin R77.8 Digoxin toxicity T46.0X1S Encounter type: sequela Injury intent: accidental or unintentional Abnormal urinalysis R82.90 DVT prophylaxis Z29.9 (1) Digoxin toxicity Encounter type: sequela Injury intent: accidental or unintentional Qualified Code(s): T46.0X1S - Poisoning by cardiac-stimulant glycosides and drugs of similar action, accidental (unintentional), sequela (2) Afib Atrial fibrillation type: unspecified Qualified Code(s): I48.91 - Unspecified atrial fibrillation (3) Chronic obstructive pulmonary disease COPD type: unspecified COPD Qualified Code(s): J44.9 - Chronic obstructive pulmonary disease, unspecified
[2020-02-11] MEDS ORDERED: acetaZOLAMIDE 500 MG in SYRINGE 0 ML IV ONE (09:30)
[2020-02-11 12:58] LABS: BUN Creatinine Ratio 12.9 (10-20); Calcium 8.6 mg/dl (8.5-10.1); Creatinine Clr Calc Pharmacy 111.8 ml/min; Est GFR (Non-African American) 89.7; Potassium 3.6 mmol/L (3.5-5.1)
[2020-02-11 18:18] LABS: BUN Creatinine Ratio 14.4 (10-20); Calcium 8.6 mg/dl (8.5-10.1); Creatinine Clr Calc Pharmacy 124.4 ml/min; Est GFR (African American) 108.6; Est GFR (Non-African American) 93.7; Potassium 4.7 mmol/L (3.5-5.1)
[2020-02-11] MEDS: predniSONE 20 MG TAB PO SCH (19:07)
[2020-02-11] MEDS: ACETAMINOPHEN 325 MG TAB PO PRN (19:08)
[2020-02-11] MEDS: MONTELUKAST SODIUM 10 MG TABLET PO SCH (20:15)
[2020-02-11] MEDS: ALBUT/IPRATROP 3MG/0.5MG NEB 3 ML VIAL NEB SCH (20:46)
[2020-02-12] MEDS: ALBUT/IPRATROP 3MG/0.5MG NEB 3 ML VIAL NEB SCH ×4 (00:28→20:25)
[2020-02-12 06:32] LABS: Hematocrit (blood only) 28.5 % (42-52); Hemoglobin 7.5 g/dL (14.0-18.0); Mean Corpuscular Hemoglobin 23.9 pg (25-34); Mean Corpuscular Hgb Conc 26.3 g/dL (32-36); Mean Corpuscular Volume 90.8 fL (80-100); Mean Platelet Volume 10.6 fL (7.4-10.4); Platelet Count 252 K/uL (130-400); RDW Coefficient of Variation 19.5 % (11.5-14.5); RDW Standard Deviation 64.7 fL (36.4-46.3); Red Blood Count 3.14 M/uL (4.7-6.1); White Blood Count 6.51 K/uL (4.8-10.8)
[2020-02-12 07:00] LABS: Anisocytosis Present; Basophils # (auto) 0.01 K/uL (0-0.2); Basophils % (auto) 0.2 %; Eosinophils # (auto) 0.01 K/uL (0-0.5); Eosinophils % (auto) 0.2 %; Lymphocytes # (auto) 0.34 K/uL (1.2-3.4); Lymphocytes % (auto) 5.2 %; Monocytes # (auto) 0.13 K/uL (0.11-0.59); Neutrophils # (auto) 6.02 K/uL (1.4-6.5); Neutrophils % (auto) 92.4 %
[2020-02-12 07:02] LABS: Calcium 8.7 mg/dl (8.5-10.1); Creatinine Clr Calc Pharmacy 126.2 ml/min; Est GFR (African American) 109.3; Est GFR (Non-African American) 94.3; Magnesium 2.1 mg/dl (1.8-2.4); Potassium 4.4 mmol/L (3.5-5.1)
[2020-02-12] MEDS: FLUTICASONE FUROATE 100MCG 14 PUFFS/INHALER INH SCH (08:44)
[2020-02-12] MEDS: UMECLIDINIUM/VILANTEROL 62.5/25MCG 7 PUFFS/INHALER INH SCH (08:44)
[2020-02-12] MEDS: ATENOLOL 25 MG TABLET PO SCH ×2 (08:45→20:46)
[2020-02-12] MEDS: FUROSEMIDE 40 MG in SYRINGE 0 ML IV SCH (08:45)
[2020-02-12] MEDS: PANTOprazole 40 MG in SYRINGE 0 ML IV SCH ×2 (08:45→20:42)
[2020-02-12] MEDS: AMOXICILLIN 500 MG CAP PO SCH ×2 (08:46→20:43)
[2020-02-12] MEDS: MULTIVITAMIN TAB PO SCH (08:46)
[2020-02-12] MEDS: predniSONE 20 MG TAB PO SCH (08:46)
[2020-02-12] MEDS: guaiFENesin 600 MG TABCR PO SCH ×2 (08:46→20:42)
[2020-02-12] MEDS: POTASSIUM CHLORIDE CRTAB 20 MEQ TABCR PO SCH ×2 (08:47→20:43)
--- NOTE | 2020-02-12 08:47 | Hospitalist Progress Note ---
Date of Service February 12, 2020 Assessment & Plan (1) Acute on chronic respiratory failure with hypoxia and hypercapnia: Requires 4L oxygen at baseline 02-10 up to 5L Treating underlying CHF 02-10 added COPD exacerbation treatment likely component of SHIRA/obesity hypoventilation as well bipap at bed and prn (2) Acute on chronic diastolic (congestive) heart failure: Paient is fluid overloaded 02-07 Chest x-ray appears worse 02-09 CXR some improvement, unfortunately needed to hold diuresis in setting of metabolic alkalosis - bicarb 44 02-10 again unable to diurese due to alkalosis 02-11 resume diruresis lasix 40mg IV daily and an additional lasix 20mg IV in the afternoon monitor renal function and bicarb daily (3) Chronic obstructive pulmonary disease: Acute exacerbation of COPD Oxygen requirements are higher than usual and he is wheezing 02-05 already on amoxicillin for UTI 02-10 started prednisone 40mg x 5 days and continue nebulizers, but change from PRN to q6h scheduled (4) Metabolic alkalosis: baseline bicarb 33 02-09 bicarb 44, held lasix 02-10 bicarb still 43, gave acetazolamide 500mg IV once 02-11 bicarb 39, resumed diuresis (5) Complicated UTI (urinary tract infection): 02-02 urine culture with > 100,000 enterococcus faecalis 02-05 evening started on amoxicillin 1g BID 02-13 morning stop amoxicillin for completion of 7 day course (6) SHIRA (obstructive sleep apnea): bipap at night 12/12 (7) Afib: pt is with rate control, continues with lower dose atenolol digoxin was supratherapeutic, was given digibind digoxin is not restarted (8) Acute GI bleeding: *Hemorrhagic disord d/t extrinsic circulating anticoagulants* Patient has an acute gastrointestinal bleed, hgb in the 7-8 gm range has not required transfusions acute blood loss anemia, ongoing for about 5 days prehospital no significant blood loss noted while here but we did hold rivaroxaban Continue to hold this at time of discharge. Dr. Hernandez stated he would speak to Dr. Luna regarding this previous significant work up in 2019 with endosocpes and capsule was unrevealing No plan on intervention was hemodynamically unstable (9) XIOMY (acute kidney injury): acute kidney injury in history of ckd 3, most likely ATN from intravascular volume loss, complicated by / causing digoxin toxicity, did receive digibind Patient did have dialysis on 2 occasions, however since that time his renal function has improved Dialysis catheter removed on 02/07 (10) Acute hyperkalemia: potassium was elevated at 7.7 on admission. Normalized with resolution of renal failure. Now hypokalemic with diuresis. Oral potassium replacement underway. Serial lab studies. (11) Elevated troponin: likely demand ischemia in the face of severe anemia (12) Digoxin toxicity: pt did have digibind,plus dialysis (13) Abnormal urinalysis: Enterococcal UTI noted and treated. (14) DVT prophylaxis: SCD as chemoprophylaxis contraindicated in pt with Acute blood loss anemia Admission and Anticipated Discharge Date Admission Date: February 02, 2020 Subjective Did not sleep well overnight which he thinks is related to frequent naps in the daytime. Patient has less dyspnea today. Less coughing. Reports that the prednisone is helping a lot. Tells me that his edema in his hands has improved, as he can now see wrinkles. Only had a small BM today. Making plenty of urine. No headache. Review of Systems Constitutional: no fever, no chills, no fatigue, no weakness, no anorexia, no weight loss and no weight gain Ear, Nose, Mouth, Throat: no nasal congestion, no sore throat and no dysphagia Respiratory: + cough and + dyspnea Cardiovascular: + dyspnea on exertion, + orthopnea and + edema; no chest pain and no palpitations Gastrointestinal: no abdominal pain, no nausea, no vomiting, no hematemesis, no dysphagia, no constipation, no diarrhea/loose stools, no blood in stools and no melena Musculoskeletal: no back pain, no joint pain, no myalgia and no muscle weakness Integumentary: no rash, no lesions, no skin ulcer, no erythema, no dry skin and no pruritus Neurologic: no falls, no localized weakness, no generalized weakness, no numbness, no paresthesia, no tremor(s) and no headache(s) Psychiatric: no depression, no suicidal ideation, no homicidal ideation and no anxiety Endocrine: no cold intolerance and no heat intolerance Hematologic / Lymphatic: no easy bleeding and no easy bruising Physical Exam Constitutional: well developed, well nourished and + morbidly obese; no acute distress Eyes: PERRL, conjunctivae normal, anicteric sclerae ENMT: Mouth: oral mucous membranes not dry Respiratory: normal respiratory effort and + labored breathing; no respiratory distress and + not able to speak in complete sentence Auscultation: + rales and + wheezes; + lungs not clear to auscultation, no crackles and no rhonchi Cardiovascular: Rate/Rhythm: regular rate and regular rhythm Heart Sounds: no murmur and no cardiac rub Vessels: normal peripheral pulses and radial pulses present; no JVD Extremities: + edema Gastrointestinal (Abdomen): Inspection/Auscultation: abdomen normal to inspection and normal bowel sounds; abdomen not distended Percussion/Pal pation: abdomen soft; abdomen nontender, no guarding, abdomen not rigid and no hepatosplenomegaly Musculoskeletal: Head/Neck/Chest: normocephalic and head atraumatic Spine: no cervical spinal tenderness, no cervical muscular tenderness, no thoracic spinal tenderness and no lumbar spinal tenderness Skin: no rashes, warm and dry Neurologic: CN's II-XI intact bilaterally and moves all extremities Motor/Sensory: no tremor and no sensory deficit Psychiatric: Orientation: alert, oriented to person, oriented to place and oriented to time Apperance: appropriately groomed; not disheveled Affect: euthymic affect; no anxious affect and no tearful affect Results & Data Results & Data ([facility]) Vital Signs (Past 12 Hours) Vital Signs Temp Pulse Pulse Resp BP BP Pulse Ox 02/12/20 08:07 98 H 18 93 02/12/20 07:16 36.6 C 18 86/59 L 93 02/12/20 00:28 82 82 20 92 02/11/20 23:49 36.5 C 92 H 20 131/72 90 02/11/20 20:49 86 86 20 96 Laboratory Results Abnormal lab results 02/11/20 02/11/20 02/12/20 Range/Units 12:15 17:51 05:26 RBC 3.14 L (4.7-6.1) M/uL Hgb 7.5 L (14.0-18.0) g/dL Hct 28.5 L (42-52) % MCH 23.9 L (25-34) pg MCHC 26.3 L (32-36) g/dL RDW Std Deviation 64.7 H (36.4-46.3) fL RDW Coeff of Ezekiel 19.5 H (11.5-14.5) % MPV 10.6 H (7.4-10.4) fL Lymph # (Auto) 0.34 L (1.2-3.4) K/uL Carbon Dioxide 44 H* 38 H (21-32) mmol/L Anion Gap -2.0 L (3-11) Glucose 134 H 129 H (70-99) mg/dl 02/12/20 Range/Units 05:26 RBC (4.7-6.1) M/uL Hgb (14.0-18.0) g/dL Hct (42-52) % MCH (25-34) pg MCHC (32-36) g/dL RDW Std Deviation (36.4-46.3) fL RDW Coeff of Ezekiel (11.5-14.5) % MPV (7.4-10.4) fL Lymph # (Auto) (1.2-3.4) K/uL Carbon Dioxide 39 H (21-32) mmol/L Anion Gap 2.0 L (3-11) Glucose 152 H (70-99) mg/dl Medications Administered Current Inpatient Medications Acetaminophen (Acetaminophen 325 Mg Tab) 325 mg PO Q4H PRN PRN Reason: Pain Stop: 03/12/20 16:19 Last Admin: 02/11/20 19:08 Dose: 325 mg Documented by: Albuterol (Albut/Ipratrop 3mg/0.5mg Neb 3 Ml Vial) 3 ml NEB Q6R [facility] Stop: 03/12/20 19:29 Last Admin: 02/12/20 08:07 Dose: 3 ml Documented by: Amoxicillin (Amoxicillin 500 Mg Cap) 1,000 mg PO BID [facility] Stop: 02/16/20 20:59 Last Admin: 02/11/20 20:14 Dose: 1,000 mg Documented by: Atenolol (Atenolol 25 Mg Tablet) 25 mg PO BID [facility] Stop: 03/05/20 20:59 Last Admin: 02/11/20 20:17 Dose: Not Given Documented by: Fluticasone Furoate (Fluticasone Furoate 100mcg 14 Puffs/Inhaler) 1 puffs INH QAM [facility] Stop: 03/04/20 08:59 Last Admin: 02/11/20 08:43 Dose: 1 puffs Documented by: Guaifenesin (Guaifenesin 600 Mg Tabcr) 600 mg PO Q12 [facility] Stop: 03/05/20 20:59 Last Admin: 02/11/20 20:14 Dose: 600 mg Documented by: Heparin Sodium (Beef Lung) (Heparin 10 Unit/Ml 5 Ml Flush) 5 ml FLUSH PRN PRN PRN Reason: Flush Stop: 03/09/20 15:09 Last Admin: 02/12/20 05:26 Dose: 5 ml Documented by: Pantoprazole Sodium 40 mg/ (Syringe) 10 mls @ 5 mls/min IV BID [facility] Stop: 03/04/20 08:59 Last Admin: 02/11/20 20:13 Dose: 5 mls/min Documented by: Furosemide 40 mg/ Syringe 4 mls @ 4 mls/min IV DAILY [facility] Stop: 03/13/20 08:59 Miconazole Nitrate (Miconazole Nitrate Powder 43 Gm) 1 appln EXT PRN PRN PRN Reason: Affected Skin Folds Stop: 03/08/20 22:44 Last Admin: 02/08/20 08:09 Dose: 1 appln Documented by: Montelukast Sodium (Montelukast Sodium 10 Mg Tablet) 10 mg PO HS [facility] Stop: 03/03/20 20:59 Last Admin: 02/11/20 20:15 Dose: 10 mg Documented by: Multivitamins (Multivitamin Tab) 1 tab PO QAM [facility] Stop: 03/09/20 08:59 Last Admin: 02/11/20 08:44 Dose: 1 tab Documented by: Potassium Chloride (Potassium Chloride 20 Meq Tabcr) 20 meq PO BID [facility] Stop: 03/10/20 09:44 Last Admin: 02/11/20 20:14 Dose: 20 meq Documented by: Prednisone (Prednisone 20 Mg Tab) 40 mg PO DAILY [facility] Stop: 02/16/20 10:29 Last Admin: 02/11/20 19:07 Dose: 40 mg Documented by: Umeclidinium/Vilanterol (Umeclidinium/Vilanterol 62.5/25mcg 7 Puffs/Inhaler) 1 puffs INH QAM [facility] Stop: 03/04/20 08:59 Last Admin: 02/11/20 08:43 Dose: 1 puffs Documented by: PG Care Time/CCT Total # of Minutes Spent Total Time Spent with Patient: Total time spent is greater than 50% in coordination of care (as documented) at patient's floor/unit and/or counseling patient: Coding Level of Care Code 10945 Subseq Hosp Care Lvl 3 Diagnoses Acute on chronic respiratory failure with hypoxia and hypercapnia J96.21; J96.22 Acute on chronic diastolic (congestive) heart failure I50.33 Chronic obstructive pulmonary disease J44.9 COPD type: unspecified COPD Metabolic alkalosis E87.3 Complicated UTI (urinary tract infection) N39.0 SHIRA (obstructive sleep apnea) G47.33 Afib I48.91 Atrial fibrillation type: unspecified Acute GI bleeding K92.2 XIOMY (acute kidney injury) N17.9 Acute hyperkalemia E87.5 Elevated troponin R77.8 Digoxin toxicity T46.0X1S Encounter type: sequela Injury intent: accidental or unintentional Abnormal urinalysis R82.90 DVT prophylaxis Z29.9 (1) Digoxin toxicity Encounter type: sequela Injury intent: accidental or unintentional Qualified Code(s): T46.0X1S - Poisoning by cardiac-stimulant glycosides and drugs of similar action, accidental (unintentional), sequela (2) Afib Atrial fibrillation type: unspecified Qualified Code(s): I48.91 - Unspecified atrial fibrillation (3) Chronic obstructive pulmonary disease COPD type: unspecified COPD Qualified Code(s): J44.9 - Chronic obstructive pulmonary disease, unspecified
[2020-02-12] MEDS ORDERED: FUROSEMIDE 20 MG in SYRINGE 0 ML IV ONE (15:15)
[2020-02-12] MEDS: MONTELUKAST SODIUM 10 MG TABLET PO SCH (20:43)
[2020-02-13] MEDS: ALBUT/IPRATROP 3MG/0.5MG NEB 3 ML VIAL NEB SCH ×4 (00:44→19:14)
[2020-02-13] MEDS: NYSTATIN POWDER 15GM BTL EXT PRN ×2 (04:31→08:49)
[2020-02-13] MEDS: ACETAMINOPHEN 325 MG TAB PO PRN (06:25)
[2020-02-13 06:29] LABS: Hematocrit (blood only) 28.2 % (42-52); Hemoglobin 7.7 g/dL (14.0-18.0); Mean Corpuscular Hemoglobin 24.7 pg (25-34); Mean Corpuscular Hgb Conc 27.3 g/dL (32-36); Mean Corpuscular Volume 90.4 fL (80-100); Mean Platelet Volume 10.1 fL (7.4-10.4); Platelet Count 260 K/uL (130-400); RDW Coefficient of Variation 19.4 % (11.5-14.5); RDW Standard Deviation 64.9 fL (36.4-46.3); Red Blood Count 3.12 M/uL (4.7-6.1); White Blood Count 8.43 K/uL (4.8-10.8)
[2020-02-13 07:01] LABS: Anisocytosis Present; Eosinophils # (auto) 0.02 K/uL (0-0.5); Eosinophils % (auto) 0.2 %; Hypochromasia Present; Immature Granulocytes # (auto) 0.02 K/uL (0.00-0.02); Immature Granulocytes % (auto) 0.2 %; Lymphocytes # (auto) 0.69 K/uL (1.2-3.4); Lymphocytes % (auto) 8.2 %; Monocytes # (auto) 1.21 K/uL (0.11-0.59); Monocytes % (auto) 14.4 %; Neutrophils # (auto) 6.49 K/uL (1.4-6.5); Ovalocytes 1+; Polychromasia 1+; Stomatocytes 1+
[2020-02-13 07:02] LABS: BUN Creatinine Ratio 18.4 (10-20); Calcium 8.8 mg/dl (8.5-10.1); Creatinine Clr Calc Pharmacy 105.1 ml/min; Est GFR (African American) 101.4; Est GFR (Non-African American) 87.5; Potassium 4.3 mmol/L (3.5-5.1)
--- NOTE | 2020-02-13 07:33 | Hospitalist Progress Note ---
Date of Service February 13, 2020 Assessment & Plan (1) Acute on chronic respiratory failure with hypoxia and hypercapnia: Requires 4L oxygen at baseline 02-10 up to 5L Treating underlying CHF 02-10 added COPD exacerbation treatment likely component of SHIRA/obesity hypoventilation as well bipap at bed and prn 02-12 patient making little improvement. remains dyspneic at rest. desaturates with any movement. sleeping all the time. offered palliative care consult. pt is agreeable to palliative care consult on the condition that his be present on speaker phone for all conversations (2) Acute on chronic diastolic (congestive) heart failure: Paient is fluid overloaded 02-07 Chest x-ray appears worse 02-09 CXR some improvement, unfortunately needed to hold diuresis in setting of metabolic alkalosis - bicarb 44 02-10 again unable to diurese due to alkalosis 02-11 resume diruresis lasix 40mg IV daily and an additional lasix 20mg IV in the afternoon monitor renal function and bicarb daily 02-12 little improvement, start monitoring daily weights. giving an additional lasix 40mg IV this afternoon (3) Chronic obstructive pulmonary disease: Acute exacerbation of COPD Oxygen requirements are higher than usual and he is wheezing 02-05 already on amoxicillin for UTI 02-10 started prednisone 40mg x 5 days and continue nebulizers, but change from PRN to q6h scheduled (4) Metabolic alkalosis: baseline bicarb 33 02-09 bicarb 44, held lasix 02-10 bicarb still 43, gave acetazolamide 500mg IV once 02-11 bicarb 39, resumed diuresis (5) Complicated UTI (urinary tract infection): 02-02 urine culture with > 100,000 enterococcus faecalis 02-05 evening started on amoxicillin 1g BID 02-13 morning stop amoxicillin for completion of 7 day course (6) SHIRA (obstructive sleep apnea): bipap at night 12/12 (7) Afib: pt is with rate control, continues with lower dose atenolol digoxin was supratherapeutic, was given digibind digoxin is not restarted (8) Acute GI bleeding: *Hemorrhagic disord d/t extrinsic circulating anticoagulants* Patient has an acute gastrointestinal bleed, hgb in the 7-8 gm range has not required transfusions acute blood loss anemia, ongoing for about 5 days prehospital no significant blood loss noted while here but we did hold rivaroxaban Continue to hold this at time of discharge. Dr. Hernandez stated he would speak to Dr. Luna regarding this previous significant work up in 2019 with endosocpes and capsule was unrevealing No plan on intervention was hemodynamically unstable (9) XIOMY (acute kidney injury): acute kidney injury in history of ckd 3, most likely ATN from intravascular volume loss, complicated by / causing digoxin toxicity, did receive digibind Patient did have dialysis on 2 occasions, however since that time his renal function has improved Dialysis catheter removed on 02/07 (10) Acute hyperkalemia: potassium was elevated at 7.7 on admission. Normalized with resolution of renal failure. Now hypokalemic with diuresis. Oral potassium replacement underway. Serial lab studies. (11) Elevated troponin: likely demand ischemia in the face of severe anemia (12) Digoxin toxicity: pt did have digibind,plus dialysis (13) Abnormal urinalysis: Enterococcal UTI noted and treated. (14) DVT prophylaxis: SCD as chemoprophylaxis contraindicated in pt with Acute blood loss anemia Admission and Anticipated Discharge Date Admission Date: February 02, 2020 Subjective Patient walked 18 feet with bariatric rollator with PT yesterday. During ambulation, his oxygen sats dipped into 70-80's with ambulation. Nursing reports patient sleeping every time they enter the room. This morning patient asleep in chair when I entered. He does not feel his dyspnea is improving. His cough is persistent as well. His edema is unchanged. No pain, no headache. Review of Systems Constitutional: no fever, no chills, no fatigue, no weakness, no anorexia, no weight loss and no weight gain Ear, Nose, Mouth, Throat: + hearing loss; no nasal congestion, no sore throat and no dysphagia Respiratory: + cough and + dyspnea Cardiovascular: + dyspnea on exertion, + orthopnea and + edema; no chest pain and no palpitations Gastrointestinal: no abdominal pain, no nausea, no vomiting, no hematemesis, no dysphagia, no constipation, no diarrhea/loose stools, no blood in stools and no melena Musculoskeletal: no back pain, no joint pain, no myalgia and no muscle weakness Integumentary: no rash, no lesions, no skin ulcer, no erythema, no dry skin and no pruritus Neurologic: no falls, no localized weakness, no generalized weakness, no numbness, no paresthesia, no tremor(s) and no headache(s) Psychiatric: no depression, no suicidal ideation, no homicidal ideation and no anxiety Endocrine: no cold intolerance and no heat intolerance Hematologic / Lymphatic: no easy bleeding and no easy bruising Physical Exam Constitutional: well developed, well nourished and + morbidly obese; no acute distress Eyes: PERRL, conjunctivae normal, anicteric sclerae ENMT: Ears: + hearing impairment Mouth: oral mucous membranes not dry Respiratory: normal respiratory effort and + labored breathing; no respiratory distress and + not able to speak in complete sentence Auscultation: + rales and + wheezes; + lungs not clear to auscultation, no crackles and no rhonchi Cardiovascular: Rate/Rhythm: regular rate and regular rhythm Heart Sounds: no murmur and no cardiac rub Vessels: normal peripheral pulses and radial pulses present; no JVD Extremities: + edema Gastrointestinal (Abdomen): Inspection/Auscultation: abdomen normal to inspection and normal bowel sounds; abdomen not distended Percussion/Palpation: abdomen soft; abdomen nontender, no guarding, abdomen not rigid and no hepatosplenomegaly Musculoskeletal: Head/Neck/Chest: normocephalic and head atraumatic Spine: no cervical spinal tenderness, no cervical muscular tenderness, no thoracic spinal tenderness and no lumbar spinal tenderness Skin: no rashes, warm and dry Neurologic: CN's II-XI intact bilaterally and moves all extremities Motor/Sensory: no tremor and no sensory deficit Psychiatric: Orientation: alert, oriented to person, oriented to place and oriented to time Apperance: appropriately groomed; not disheveled Affect: euthymic affect; no anxious affect and no tearful affect Results & Data Results & Data ([facility]) Vital Signs (Past 12 Hours) Vital Signs Temp Pulse Pulse Resp BP BP Pulse Ox 02/13/20 07:22 99 H 20 98 02/13/20 06:47 36.8 C 98 H 16 101/65 94 02/13/20 00:46 90 22 94 02/12/20 23:32 36.5 C 88 22 109/63 92 02/12/20 20:29 90 90 24 92 Laboratory Results Abnormal lab results 02/13/20 02/13/20 Range/Units 06:03 06:03 RBC 3.12 L (4.7-6.1) M/uL Hgb 7.7 L (14.0-18.0) g/dL Hct 28.2 L (42-52) % MCH 24.7 L (25-34) pg MCHC 27.3 L (32-36) g/dL RDW Std Deviation 64.9 H (36.4-46.3) fL RDW Coeff of Ezekiel 19.4 H (11.5-14.5) % Lymph # (Auto) 0.69 L (1.2-3.4) K/uL Desha # (Auto) 1.21 H (0.11-0.59) K/uL Carbon Dioxide 39 H (21-32) mmol/L Anion Gap 0 L (3-11) Glucose 132 H (70-99) mg/dl Medications Administered Current Inpatient Medications Acetaminophen (Acetaminophen 325 Mg Tab) 325 mg PO Q4H PRN PRN Reason: Pain Stop: 03/12/20 16:19 Last Admin: 02/13/20 06:25 Dose: 325 mg Documented by: Albuterol (Albut/Ipratrop 3mg/0.5mg Neb 3 Ml Vial) 3 ml NEB Q6R [facility] Stop: 03/12/20 19:29 Last Admin: 02/13/20 07:18 Dose: 3 ml Documented by: Amoxicillin (Amoxicillin 500 Mg Cap) 1,000 mg PO BID [facility] Stop: 02/16/20 20:59 Last Admin: 02/12/20 20:43 Dose: 1,000 mg Documented by: Atenolol (Atenolol 25 Mg Tablet) 25 mg PO BID [facility] Stop: 03/05/20 20:59 Last Admin: 02/12/20 20:46 Dose: 25 mg Documented by: Fluticasone Furoate (Fluticasone Furoate 100mcg 14 Puffs/Inhaler) 1 puffs INH QAM [facility] Stop: 03/04/20 08:59 Last Admin: 02/12/20 08:44 Dose: 1 puffs Documented by: Guaifenesin (Guaifenesin 600 Mg Tabcr) 600 mg PO Q12 [facility] Stop: 03/05/20 20:59 Last Admin: 02/12/20 20:42 Dose: 600 mg Documented by: Heparin Sodium (Beef Lung) (Heparin 10 Unit/Ml 5 Ml Flush) 5 ml FLUSH PRN PRN PRN Reason: Flush Stop: 03/09/20 15:09 Last Admin: 02/13/20 06:04 Dose: 10 ml Documented by: Pantoprazole Sodium 40 mg/ (Syringe) 10 mls @ 5 mls/min IV BID [facility] Stop: 03/04/20 08:59 Last Admin: 02/12/20 20:42 Dose: 5 mls/min Documented by: Furosemide 40 mg/ Syringe 4 mls @ 4 mls/min IV DAILY [facility] Stop: 03/13/20 08:59 Last Admin: 02/12/20 08:45 Dose: 4 mls/min Documented by: Miconazole Nitrate (Miconazole Nitrate Powder 43 Gm) 1 appln EXT PRN PRN PRN Reason: Affected Skin Folds Stop: 03/08/20 22:44 Last Admin: 02/08/20 08:09 Dose: 1 appln Documented by: Montelukast Sodium (Montelukast Sodium 10 Mg Tablet) 10 mg PO HS [facility] Stop: 03/03/20 20:59 Last Admin: 02/12/20 20:43 Dose: 10 mg Documented by: Multivitamins (Multivitamin Tab) 1 tab PO QAM [facility] Stop: 03/09/20 08:59 Last Admin: 02/12/20 08:46 Dose: 1 tab Documented by: Nystatin (Nystatin Powder 15gm Btl) 1 appln EXT TID PRN PRN Reason: Affected Skin Folds Stop: 03/14/20 04:08 Last Admin: 02/13/20 04:31 Dose: 1 appln Documented by: Potassium Chloride (Potassium Chloride 20 Meq Tabcr) 20 meq PO BID [facility] Stop: 03/10/20 09:44 Last Admin: 02/12/20 20:43 Dose: 20 meq Documented by: Prednisone (Prednisone 20 Mg Tab) 40 mg PO DAILY [facility] Stop: 02/16/20 10:29 Last Admin: 02/12/20 08:46 Dose: 40 mg Documented by: Umeclidinium/Vilanterol (Umeclidinium/Vilanterol 62.5/25mcg 7 Puffs/Inhaler) 1 puffs INH QAM [facility] Stop: 03/04/20 08:59 Last Admin: 02/12/20 08:44 Dose: 1 puffs Documented by: PG Care Time/CCT Total # of Minutes Spent Total Time Spent with Patient: Total time spent is greater than 50% in coordination of care (as documented) at patient's floor/unit and/or counseling patient: Coding Level of Care Code 35050 Subseq Hosp Care Lvl 3 Diagnoses Acute on chronic respiratory failure with hypoxia and hypercapnia J96.21; J96.22 Acute on chronic diastolic (congestive) heart failure I50.33 Chronic obstructive pulmonary disease J44.9 COPD type: unspecified COPD Metabolic alkalosis E87.3 Complicated UTI (urinary tract infection) N39.0 SHIRA (obstructive sleep apnea) G47.33 Afib I48.91 Atrial fibrillation type: unspecified Acute GI bleeding K92.2 XIOMY (acute kidney injury) N17.9 Acute hyperkalemia E87.5 Elevated troponin R77.8 Digoxin toxicity T46.0X1S Encounter type: sequela Injury intent: accidental or unintentional Abnormal urinalysis R82.90 DVT prophylaxis Z29.9 (1) Digoxin toxicity Encounter type: sequela Injury intent: accidental or unintentional Qualified Code(s): T46.0X1S - Poisoning by cardiac-stimulant glycosides and drugs of similar action, accidental (unintentional), sequela (2) Afib Atrial fibrillation type: unspecified Qualified Code(s): I48.91 - Unspecified atrial fibrillation (3) Chronic obstructive pulmonary disease COPD type: unspecified COPD Qualified Code(s): J44.9 - Chronic obstructive pulmonary disease, unspecified
[2020-02-13] MEDS: FUROSEMIDE 40 MG in SYRINGE 0 ML IV SCH (08:45)
[2020-02-13] MEDS: PANTOprazole 40 MG in SYRINGE 0 ML IV SCH ×2 (08:45→22:02)
[2020-02-13] MEDS: MULTIVITAMIN TAB PO SCH (08:46)
[2020-02-13] MEDS: AMOXICILLIN 500 MG CAP PO SCH ×2 (08:46→22:02)
[2020-02-13] MEDS: ATENOLOL 25 MG TABLET PO SCH ×2 (08:46→22:02)
[2020-02-13] MEDS: POTASSIUM CHLORIDE CRTAB 20 MEQ TABCR PO SCH ×2 (08:46→22:02)
[2020-02-13] MEDS: predniSONE 20 MG TAB PO SCH (08:46)
[2020-02-13] MEDS: UMECLIDINIUM/VILANTEROL 62.5/25MCG 7 PUFFS/INHALER INH SCH (08:47)
[2020-02-13] MEDS: guaiFENesin 600 MG TABCR PO SCH ×2 (08:47→22:03)
[2020-02-13] MEDS: FLUTICASONE FUROATE 100MCG 14 PUFFS/INHALER INH SCH (08:47)
[2020-02-13] MEDS ORDERED: FUROSEMIDE 40 MG in SYRINGE 0 ML IV ONE (14:00)
[2020-02-13] MEDS: MONTELUKAST SODIUM 10 MG TABLET PO SCH (22:03)
[2020-02-14] MEDS: ALBUT/IPRATROP 3MG/0.5MG NEB 3 ML VIAL NEB SCH ×4 (01:03→19:15)
[2020-02-14 07:13] LABS: Hematocrit (blood only) 28.4 % (42-52); Hemoglobin 7.7 g/dL (14.0-18.0); Mean Corpuscular Hemoglobin 24.5 pg (25-34); Mean Corpuscular Hgb Conc 27.1 g/dL (32-36); Mean Corpuscular Volume 90.4 fL (80-100); Mean Platelet Volume 10.3 fL (7.4-10.4); Platelet Count 268 K/uL (130-400); RDW Coefficient of Variation 19.6 % (11.5-14.5); RDW Standard Deviation 64.7 fL (36.4-46.3); Red Blood Count 3.14 M/uL (4.7-6.1); White Blood Count 8.25 K/uL (4.8-10.8)
[2020-02-14 07:49] LABS: BUN Creatinine Ratio 25.9 (10-20); Calcium 8.7 mg/dl (8.5-10.1); Creatinine Clr Calc Pharmacy 112.9 ml/min; Est GFR (African American) 104.5; Est GFR (Non-African American) 90.2; Magnesium 2.4 mg/dl (1.8-2.4); Phosphorus 2.9 mg/dl (2.5-4.9); Potassium 4.7 mmol/L (3.5-5.1)
[2020-02-14] MEDS: FLUTICASONE FUROATE 100MCG 14 PUFFS/INHALER INH SCH (08:38)
[2020-02-14] MEDS: UMECLIDINIUM/VILANTEROL 62.5/25MCG 7 PUFFS/INHALER INH SCH (08:38)
[2020-02-14] MEDS: POTASSIUM CHLORIDE CRTAB 20 MEQ TABCR PO SCH (08:38)
[2020-02-14] MEDS: AMOXICILLIN 500 MG CAP PO SCH (08:38)
[2020-02-14] MEDS: PANTOprazole 40 MG in SYRINGE 0 ML IV SCH ×2 (08:39→20:46)
[2020-02-14] MEDS: FUROSEMIDE 40 MG in SYRINGE 0 ML IV SCH (08:39)
[2020-02-14] MEDS: MULTIVITAMIN TAB PO SCH (08:39)
[2020-02-14] MEDS: guaiFENesin 600 MG TABCR PO SCH ×2 (08:39→20:45)
[2020-02-14] MEDS: ATENOLOL 25 MG TABLET PO SCH ×3 (08:40→20:54)
[2020-02-14] MEDS: predniSONE 20 MG TAB PO SCH (08:40)
[2020-02-14] MEDS ORDERED: SODIUM CHLORIDE 0.9% 250 ML IV PRN (09:41)
--- NOTE | 2020-02-14 09:46 | Hospitalist Progress Note ---
Date of Service February 14, 2020 Assessment & Plan (1) Acute on chronic respiratory failure with hypoxia and hypercapnia: Requires 4L oxygen at baseline 02-10 up to 5L Treating underlying CHF 02-10 added COPD exacerbation treatment likely component of SHIRA/obesity hypoventilation as well bipap at bed and prn 02-12 patient making little improvement. remains dyspneic at rest. desaturates with any movement. sleeping all the time. offered palliative care consult. pt is agreeable to palliative care consult on the condition that his be present on speaker phone for all conversations 02-13 awaiting palliative consult asked pulm to see -- discussed with Dr. Lock and he agreed with current management (2) Acute on chronic diastolic (congestive) heart failure: Paient is fluid overloaded 02-01 143.9 kg 02-07 Chest x-ray appears worse 02-09 CXR some improvement, unfortunately needed to hold diuresis in setting of metabolic alkalosis - bicarb 44 02-10 again unable to diurese due to alkalosis 02-11 resume diruresis lasix 40mg IV daily and an additional lasix 20mg IV in the afternoon monitor renal function and bicarb daily 02-12 little improvement, start monitoring daily weights. giving an additional lasix 40mg IV this afternoon 02-13 140.8kg, lasix 40mg IV once this morning, acetazolamide this afternoon Dr. Lock does not recommend lasix drip (3) Chronic obstructive pulmonary disease: Acute exacerbation of COPD Oxygen requirements are higher than usual and he is wheezing 02-05 already on amoxicillin for UTI 02-10 started prednisone 40mg x 5 days and continue nebulizers, but change from PRN to q6h scheduled (4) Anemia: 02-01 transfused 2 units PRBC 02-02 transfused 1 unit PRBC 02-13 Hg 7.7, will transfuse one unit (5) Hyperkalemia: 02-13 minimal elevation of K 5.2 checking EKG to ensure no changes stopped daily potassium supplement (6) Metabolic alkalosis: baseline bicarb 33 02-09 bicarb 44, held lasix 02-10 bicarb still 43, gave acetazolamide 500mg IV once 02-11 bicarb 39, resumed diuresis 02-13, bicarb 40, will give another dose acetazolamide 500mg IV once this afternoon repeat bicarb 43, hold off on additional lasix today decrease dose of lasix going forward to 20mg IV BID Dr. Lock agrees alkalosis will continue to be an issue with diuresis and would likely improve over time with compliance with BIPAP (7) SHIRA (obstructive sleep apnea): bipap at night 12/12 (8) Complicated UTI (urinary tract infection): 11-4 urine culture with > 100,000 enterococcus faecalis 11-7 evening started on amoxicillin 1g BID 11-15 morning stop amoxicillin for completion of 7 day course (9) Afib: pt is with rate control, continues with lower dose atenolol digoxin was supratherapeutic, was given digibind digoxin is not restarted (10) Acute GI bleeding: *Hemorrhagic disord d/t extrinsic circulating anticoagulants* Patient has an acute gastrointestinal bleed, hgb in the 7-8 gm range has not required transfusions acute blood loss anemia, ongoing for about 5 days prehospital no significant blood loss noted while here but we did hold rivaroxaban Continue to hold this at time of discharge. Dr. Hernandez stated he would speak to Dr. Luna regarding this previous significant work up in 2019 with endosocpes and capsule was unrevealing No plan on intervention was hemodynamically unstable (11) XIOMY (acute kidney injury): acute kidney injury in history of ckd 3, most likely ATN from intravascular volume loss, complicated by / causing digoxin toxicity, did receive digibind Patient did have dialysis on 2 occasions, however since that time his renal function has improved Dialysis catheter removed on 02/07 (12) Acute hyperkalemia: potassium was elevated at 7.7 on admission. Normalized with resolution of renal failure. Now hypokalemic with diuresis. Oral potassium replacement underway. Serial lab studies. (13) Elevated troponin: likely demand ischemia in the face of severe anemia (14) Digoxin toxicity: pt did have digibind,plus dialysis (15) Abnormal urinalysis: Enterococcal UTI noted and treated. (16) DVT prophylaxis: SCD chemoprophylaxis contraindicated in pt with Acute blood loss anemia Admission and Anticipated Discharge Date Admission Date: February 02, 2020 Subjective Called yesterday by IV team -- stool found near femoral central line. Placed peripheral IV and pulled femoral line. Receiving PRBC today. Patient feels better today -- more energy. Continues to have massive leg edema and abdominal edema. Continues to have shortness of breath with minimal activity. Coughing is productive of phlegm. He is using his flutter valve which helps. Denies fevers, nausea, vomiting. Tolerating his diet. Review of Systems Constitutional: no fever, no chills, no fatigue, no weakness, no anorexia, no weight loss and no weight gain Ear, Nose, Mouth, Throat: + hearing loss; no nasal congestion, no sore throat and no dysphagia Respiratory: + cough and + dyspnea Cardiovascular: + dyspnea on exertion, + orthopnea and + edema; no chest pain and no palpitations Gastrointestinal: no abdominal pain, no nausea, no vomiting, no hematemesis, no dysphagia, no constipation, no diarrhea/loose stools, no blood in stools and no melena Musculoskeletal: no back pain, no joint pain, no myalgia and no muscle weakness Integumentary: no rash, no lesions, no skin ulcer, no erythema, no dry skin and no pruritus Neurologic: no falls, no localized weakness, no generalized weakness, no numbness, no paresthesia, no tremor(s) and no headache(s) Psychiatric: no depression, no suicidal ideation, no homicidal ideation and no anxiety Endocrine: no cold intolerance and no heat intolerance Hematologic / Lymphatic: no easy bleeding and no easy bruising Physical Exam Constitutional: well developed, well nourished and + morbidly obese; no acute distress Eyes: PERRL, conjunctivae normal, anicteric sclerae ENMT: Ears: + hearing impairment Mouth: oral mucous membranes not dry Respiratory: normal respiratory effort and + labored breathing; no respiratory distress and + not able to speak in complete sentence Auscultation: + rales and + wheezes; + lungs not clear to auscultation, no crackles and no rhonchi Cardiovascular: Rate/Rhythm: regular rate and regular rhythm Heart Sounds: no murmur and no cardiac rub Vessels: + JVD, normal peripheral pulses and radial pulses present Extremities: + edema Gastrointestinal (Abdomen): Inspection/Auscultation: abdomen normal to inspection and normal bowel sounds; abdomen not distended Percussion/Palpation: abdomen soft; abdomen nontender, no guarding, abdomen not rigid and no hepatosplenomegaly Musculoskeletal: Head/Neck/Chest: normocephalic and head atraumatic Spine: no cervical spinal tenderness, no cervical muscular tenderness, no thoracic spinal tenderness and no lumbar spinal tenderness Skin: no rashes, warm and dry Neurologic: CN's II-XI intact bilaterally and moves all extremities Motor/Sensory: no tremor and no sensory deficit Psychiatric: Orientation: alert, oriented to person, oriented to place and oriented to time Apperance: appropriately groomed; not disheveled Affect: euthymic affect; no anxious affect and no tearful affect Results & Data Results & Data ([facility]) Vital Signs (Past 12 Hours) Vital Signs Temp Pulse Pulse Resp BP Pulse Ox 02/14/20 07:52 98 H 22 93 02/14/20 07:10 36.7 C 94 H 15 107/64 92 02/14/20 02:06 98 H 24 92 02/14/20 01:05 95 H 25 H 96 02/14/20 01:04 95 H 25 H 96 02/13/20 23:23 36.6 C 98 H 20 113/54 L 92 02/13/20 22:07 90 20 95 Laboratory Results Abnormal lab results 02/14/20 02/14/20 Range/Units 06:42 06:42 RBC 3.14 L (4.7-6.1) M/uL Hgb 7.7 L (14.0-18.0) g/dL Hct 28.4 L (42-52) % MCH 24.5 L (25-34) pg MCHC 27.1 L (32-36) g/dL RDW Std Deviation 64.7 H (36.4-46.3) fL RDW Coeff of Ezekiel 19.6 H (11.5-14.5) % Carbon Dioxide 40 H (21-32) mmol/L Anion Gap 1.0 L (3-11) BUN 20 H (7-18) mg/dl BUN/Creatinine Ratio 25.9 H (10-20) Glucose 100 H (70-99) mg/dl Medications Administered Current Inpatient Medications Acetaminophen (Acetaminophen 325 Mg Tab) 325 mg PO Q4H PRN PRN Reason: Pain Stop: 03/12/20 16:19 Last Admin: 02/13/20 06:25 Dose: 325 mg Documented by: Albuterol (Albut/Ipratrop 3mg/0.5mg Neb 3 Ml Vial) 3 ml NEB Q6R FREDDY Stop: 03/12/20 19:29 Last Admin: 02/14/20 07:50 Dose: 3 ml Documented by: Amoxicillin (Amoxicillin 500 Mg Cap) 1,000 mg PO BID FREDDY Stop: 02/16/20 20:59 Last Admin: 02/14/20 08:38 Dose: 1,000 mg Documented by: Atenolol (Atenolol 25 Mg Tablet) 25 mg PO BID FREDDY Stop: 03/05/20 20:59 Last Admin: 02/14/20 08:40 Dose: 25 mg Documented by: Fluticasone Furoate (Fluticasone Furoate 100mcg 14 Puffs/Inhaler) 1 puffs INH QAM FREDDY Stop: 03/04/20 08:59 Last Admin: 02/14/20 08:38 Dose: 1 puffs Documented by: Guaifenesin (Guaifenesin 600 Mg Tabcr) 600 mg PO Q12 FREDDY Stop: 03/05/20 20:59 Last Admin: 02/14/20 08:39 Dose: 600 mg Documented by: Heparin Sodium (Beef Lung) (Heparin 10 Unit/Ml 5 Ml Flush) 5 ml FLUSH PRN PRN PRN Reason: Flush Stop: 03/09/20 15:09 Last Admin: 02/13/20 06:04 Dose: 10 ml Documented by: Pantoprazole Sodium 40 mg/ (Syringe) 10 mls @ 5 mls/min IV BID [facility] Stop: 03/04/20 08:59 Last Admin: 02/14/20 08:39 Dose: 5 mls/min Documented by: Furosemide 40 mg/ Syringe 4 mls @ 4 mls/min IV DAILY FREDDY Stop: 03/13/20 08:59 Last Admin: 02/14/20 08:39 Dose: 4 mls/min Documented by: Miconazole Nitrate (Miconazole Nitrate Powder 43 Gm) 1 appln EXT PRN PRN PRN Reason: Affected Skin Folds Stop: 03/08/20 22:44 Last Admin: 02/08/20 08:09 Dose: 1 appln Documented by: Montelukast Sodium (Montelukast Sodium 10 Mg Tablet) 10 mg PO HS [facility] Stop: 03/03/20 20:59 Last Admin: 02/13/20 22:03 Dose: 10 mg Documented by: Multivitamins (Multivitamin Tab) 1 tab PO QAM FREDDY Stop: 03/09/20 08:59 Last Admin: 02/14/20 08:39 Dose: 1 tab Documented by: Nystatin (Nystatin Powder 15gm Btl) 1 appln EXT TID PRN PRN Reason: Affected Skin Folds Stop: 03/14/20 04:08 Last Admin: 02/13/20 08:49 Dose: 1 appln Documented by: Potassium Chloride (Potassium Chloride 20 Meq Tabcr) 20 meq PO BID [facility] Stop: 03/10/20 09:44 Last Admin: 02/14/20 08:38 Dose: 20 meq Documented by: Prednisone (Prednisone 20 Mg Tab) 40 mg PO DAILY [facility] Stop: 02/16/20 10:29 Last Admin: 02/14/20 08:40 Dose: 40 mg Documented by: Umeclidinium/Vilanterol (Umeclidinium/Vilanterol 62.5/25mcg 7 Puffs/Inhaler) 1 puffs INH QAM [facility] Stop: 03/04/20 08:59 Last Admin: 02/14/20 08:38 Dose: 1 puffs Documented by: PG Care Time/CCT Total # of Minutes Spent Total Time Spent with Patient: Total time spent is greater than 50% in coordination of care (as documented) at patient's floor/unit and/or counseling patient: Coding Level of Care Code 19142 Subseq Hosp Care Lvl 3 Diagnoses Acute on chronic respiratory failure with hypoxia and hypercapnia J96.21; J96.22 Acute on chronic diastolic (congestive) heart failure I50.33 Chronic obstructive pulmonary disease J44.9 COPD type: unspecified COPD Anemia D64.9 Anemia type: unspecified type Hyperkalemia E87.5 Metabolic alkalosis E87.3 SHIRA (obstructive sleep apnea) G47.33 Complicated UTI (urinary tract infection) N39.0 Afib I48.91 Atrial fibrillation type: unspecified Acute GI bleeding K92.2 XIOMY (acute kidney injury) N17.9 Acute hyperkalemia E87.5 Elevated troponin R77.8 Digoxin toxicity T46.0X1S Encounter type: sequela Injury intent: accidental or unintentional Abnormal urinalysis R82.90 DVT prophylaxis Z29.9 (1) Digoxin toxicity Encounter type: sequela Injury intent: accidental or unintentional Qualified Code(s): T46.0X1S - Poisoning by cardiac-stimulant glycosides and drugs of similar action, accidental (unintentional), sequela (2) Anemia Anemia type: unspecified type Qualified Code(s): D64.9 - Anemia, unspecified (3) Afib Atrial fibrillation type: unspecified Qualified Code(s): I48.91 - Unspecified atrial fibrillation (4) Chronic obstructive pulmonary disease COPD type: unspecified COPD Qualified Code(s): J44.9 - Chronic obstructive pulmonary disease, unspecified
--- NOTE | 2020-02-14 13:24 | Pulmonary Consultation ---
Date of Consultation February 14, 2020 Assessment & Plan (1) Acute on chronic respiratory failure with hypoxia and hypercapnia: The patient's hypoxia is multifactorial most likely related to his acute on chronic diastolic heart failure exacerbation, obesity hypoventilation syndrome, obstructive sleep apnea, likely cor pulmonale and possibly some degree of COPD. No PFTs are available for review, but he does have evidence of emphysema noted on the CT chest from 2019 and he does have a smoking history. I would recommend discontinuing the Arnuity inhaler and starting him on a long- acting muscarinic antagonist such as Spiriva or Incruse Ellipta. Recommend continued use of BiPAP at all times while sleeping and discharge home on BiPAP. He apparently has a CPAP at home. I would recommend minimizing steroid use to no longer than 5 days especially in light of his very significant obesity. Excess steroids can also worsen underlying metabolic alkalosis. Significant weight loss is advised. It appears that there may be a palliative care consultation which may be beneficial for symptom management. PFTs as an outpatient would be recommended. Pulmonary rehab may also be beneficial. Can consider ordering a repeat chest x-ray for tomorrow morning to see how his pleural effusions look post diuresis. He does have small bilateral effusions on the most recent chest x-ray which would likely be difficult to tap due to his large size. I do not know that a Lasix drip at this point would change his outcome much. His ongoing metabolic alkalosis will continue to be an issue with diuresis and this would most likely be improved with adequate compliance of BiPAP. Diamox likely has little utility here. He likely has very significant cor pulmonale. His intravascular volume status is difficult to assess given his size. I suspect that a repeat echocardiogram will be of limited utility as well as the acoustic windows would likely be poor to evaluate the right ventricular outflow tract. I discussed the case with the bedside RN and the hospitalist. (2) Chronic obstructive pulmonary disease: COPD type: unspecified COPD Qualified Code(s): J44.9 - Chronic obstructive pulmonary disease, unspecified (3) CHF (congestive heart failure): (4) SHIRA (obstructive sleep apnea): (5) Morbid obesity with BMI of 45.0-49.9, adult: (6) Bilateral pleural effusion: History of Present Illness Reason for Consultation: Acute hypoxemic respiratory failure Requesting Physician: Hospitalist service Attending Physician: Elena Brar MD History of Present Illness 74-year-old male with a past medical history of morbid obesity, likely OHS, reported COPD, coronary artery disease, atrial fibrillation, obstructive sleep apnea, chronic hypoxemic respiratory failure and diastolic heart failure who is currently in the hospital due to ongoing hypoxia and diastolic heart failure. He was originally admitted approximately 12 days ago due to acute kidney injury, digoxin toxicity and a concern for possible gastrointestinal bleed. Gastroenterology saw him earlier in the hospitalization and determined that he likely had rectal bleeding. No EGD was performed. He did require hemodialysis during this hospital visit. His creatinine recovered. He did have a dialysis catheter temporarily. He is currently requiring 5 L of oxygen and his baseline is typically 4 L. He is being treated for an Enterococcus faecalis UTI with amoxicillin. He is currently also on BiPAP at 12/12 for OHS/SHIRA. He is receiving Diamox and Lasix for volume overload. Serum bicarbonate has been very elevated likely related to chronic hypercapnic respiratory failure and contraction alkalosis. He was recently started on prednisone for concern of a possible COPD exacerbation by the hospitalist. His most recent ABG is from his 02/09/2020 which demonstrated pH is 7.36, PCO2 of 76 and a PO2 of 80. His procalcitonin on 02/19/2020 was 0.21. Echocardiogram on 08/28/2018 was a technically limited study, but moderate left atrial dilation was noted with mild concentric left ventricular hypertrophy and normal biventricular systolic function. Chest x-ray from 02/09 with evidence of cardiomegaly and CHF. Bilateral effusions noted. He is -8 L since hospital admission. Patient very hard of hearing and history is limited. He notes that he smoked 2 packs a day for 30 to 40 years. He quit several years ago. He is very sedentary at home. He does not have any pets. He lives with his . I did discuss with the bedside nurse who indicated the patient is not very motivated for activity. He denies any chest pain. He has chronic shortness of breath and is chronically on 3 to 4 L of oxygen at home. He notes that he has a CPAP at home. Allergies Allergy/AdvReac Type Severity Reaction Status Date / Time adhesive Allergy Mild TAPE-RASH Verified 02/02/20 13:08 oxycodone Allergy Mild RASH Verified 02/02/20 13:08 diltiazem Allergy Unknown Verified 02/02/20 13:08 Home Medications Home Medications Medication Instructions Recorded Confirmed Type Calcium 600 + D(3) 1 cap PO BID 08/21/18 02/02/20 History seadc-[id number]-ast 1 cap PO QAM 08/21/18 02/02/20 History [MegaRed Dry Run-3 Krill Oil] mometasone [Nasonex] 2 spray INTRANASAL HS 08/21/18 02/02/20 History multivitamin 1 tab PO QAM 08/21/18 02/02/20 History triamcinolone acetonide 1 applic TOPICAL DAILY PRN 08/21/18 02/02/20 History cyanocobalamin (vitamin B-12) 1,000 mcg PO QAM 11/05/18 02/02/20 History [Vitamin B-12] digoxin 125 mcg (0.125 mg) tablet 125 mcg PO QAM #90 tab 07/27/19 02/02/20 Rx rivaroxaban 20 mg tablet 20 mg PO QAM #90 tab 07/27/19 02/02/20 Rx atorvastatin 80 mg tablet 80 mg PO HS #90 tab 09/11/19 02/02/20 Rx potassium chloride 10 mEq 20 meq PO BID #360 tab 10/01/19 02/02/20 Rx tablet,extended release atenolol 100 mg tablet 200 mg PO BID #360 tab 11/04/19 02/02/20 Rx albuterol sulfate 90 mcg/actuation 1 puff INHALATION Q6H PRN #18 g 11/18/19 02/02/20 Rx aerosol inhaler ipratropium 0.5 mg-albuterol 3 mg 3 ml INHALATION Q6H PRN #180 ml 11/18/19 02/02/20 Rx (2.5 mg base)/3 mL nebulization soln omeprazole 40 mg capsule,delayed 40 mg PO BID #180 cap 12/15/19 02/02/20 Rx release clmtmiuutgw-vrtzoxxxx-iyrjfbqe 1 inh INH QAM 02/02/20 02/02/20 History [Trelegy Ellipta] furosemide 40 mg PO BID 02/02/20 02/02/20 History metolazone 2.5 mg PO FR 02/02/20 02/02/20 History montelukast 10 mg PO QAM 02/02/20 02/02/20 History Patient History Medical History (Updated 02/14/20 @ 13:23 by Bobby Lock MD) Anemia Atrial fibrillation dx 4-5 years ago --reason for xarelto--follows with Dr. Luna Walker esophagus Bilateral pleural effusion Chronic obstructive pulmonary disease Denies any h/o hospitalization or intubation. Used advair this am. Has not used albuterol for a few months. Chronic respiratory failure with hypoxia and hypercapnia Difficulty swallowing GERD (gastroesophageal reflux disease) History of heart artery stent x1 2008 @ [facility] by Dr. Luna History of prostate cancer Hyperlipidemia Hypertension Morbid obesity with BMI of 45.0-49.9, adult On anticoagulant therapy On home oxygen therapy 2-3L N/C at all times Sleep apnea CPAP with 2-3L Surgical History History of bilateral cataract extraction History of cardiac cath 2008 [facility] - HAD STENT X1 History of colonoscopy History of esophagogastroduodenoscopy (EGD) EUS 03/2019 [facility] EUS 11/21/18 Glidescope 4 with grade 1 view History of lumbar surgery hardware in place History of prostate biopsy malignant History of prostatectomy History of right shoulder replacement History of total left hip replacement History of total right hip replacement History of umbilical hernia repair Hx of esophagogastroduodenoscopy Hx of nasal septoplasty Family History Uncle Prostate cancer Mother Septicemia Father COPD (chronic obstructive pulmonary disease) Pancreatic cancer Other No family history of adverse response to anesthesia Social History Smoking Status: Former smoker Tobacco Type: Cigarettes Age Started Using Tobacco: 17; Age Quit Using Tobacco: 54; packs per day: 1; Years Smoked: 37; Second Hand Exposure: No; Hx Alcohol Use: Yes Alcohol type: hard liquor Alcohol Intake Frequency Comment: 2-3 daily Hx Substance Use: No Preferred Language: Swedish Communication Ability: Effective Hearing Ability: Use of Hearing Aid Maintenance Journeyman Required: No Beliefs That Will Affect Care: None marital status: Current Living Situation: Spouse Current Living Situation Comment: has step-children 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 Diminished at the bases. Cardiovascular: Rate/Rhythm: regular rate and regular rhythm Heart Sounds: normal S1 and normal S2 3-4+ pitting edema in the lower extremities. Gastrointestinal (Abdomen): normal bowel sounds, soft, nontender, no hepatosplenomegaly Musculoskeletal: no cyanosis or clubbing, extremities motor strength 5/5 Skin: no rashes, warm and dry Neurologic: PERRL, EOMI, accommodation nl, no face palsy, no dysarthria Psychiatric: A+Ox3, euthymic affect Results & Data Results & Data ([facility]) Vital Signs (Past 12 Hours) Vital Signs Temp Pulse Pulse Resp BP BP Pulse Ox 02/14/20 12:59 94 H 20 94 02/14/20 12:35 97.5 F L 95 H 21 134/74 90 02/14/20 12:05 98.4 F 87 24 121/65 97 02/14/20 11:50 98.2 F 82 24 112/59 L 95 02/14/20 11:33 97.9 F 92 H 24 107/70 95 02/14/20 07:52 98 H 22 93 02/14/20 07:10 98.1 F 94 H 15 107/64 92 02/14/20 02:06 98 H 24 92 I reviewed the vital signs, labs and imaging PG Care Time/CCT Total # of Minutes Spent Total Time Spent with Patient: Total time spent is greater than 50% in coordination of care (as documented) at patient's floor/unit and/or counseling patient: Coding Level of Care Code 39093 Inpt Consult Level 5 Diagnoses Acute on chronic respiratory failure with hypoxia and hypercapnia J96.21; J96.22 Chronic obstructive pulmonary disease J44.9 COPD type: unspecified COPD CHF (congestive heart failure) I50.9 SHIRA (obstructive sleep apnea) G47.33 Morbid obesity with BMI of 45.0-49.9, adult E66.01; Z68.42 Bilateral pleural effusion J90
[2020-02-14] MEDS ORDERED: acetaZOLAMIDE 500 MG in SYRINGE 0 ML IV ONE (15:00)
[2020-02-14 17:36] LABS: BUN Creatinine Ratio 26.8 (10-20); Creatinine Clr Calc Pharmacy 102.4 ml/min; Est GFR (African American) 100.4; Est GFR (Non-African American) 86.6; Potassium 5.2 mmol/L (3.5-5.1)
[2020-02-14 17:45] LABS: Hematocrit (blood only) 34.1 % (42-52); Hemoglobin 9.4 g/dL (14.0-18.0); Immature Granulocytes # (auto) 0.05 K/uL (0.00-0.02); Immature Granulocytes % (auto) 0.5 %; Lymphocytes % (auto) 4.3 %; Mean Corpuscular Hemoglobin 25.1 pg (25-34); Mean Corpuscular Hgb Conc 27.6 g/dL (32-36); Mean Corpuscular Volume 90.9 fL (80-100); Mean Platelet Volume 10.6 fL (7.4-10.4); Monocytes # (auto) 0.67 K/uL (0.11-0.59); Monocytes % (auto) 7.2 %; Neutrophils # (auto) 8.21 K/uL (1.4-6.5); Platelet Count 292 K/uL (130-400); RDW Coefficient of Variation 19.2 % (11.5-14.5); RDW Standard Deviation 64.3 fL (36.4-46.3); Red Blood Count 3.75 M/uL (4.7-6.1); White Blood Count 9.33 K/uL (4.8-10.8)
[2020-02-14] MEDS ORDERED: FUROSEMIDE 40 MG in SYRINGE 0 ML IV ONE (19:00)
[2020-02-14] MEDS: MONTELUKAST SODIUM 10 MG TABLET PO SCH (20:45)
[2020-02-15] MEDS: ALBUT/IPRATROP 3MG/0.5MG NEB 3 ML VIAL NEB SCH ×4 (00:45→19:21)
[2020-02-15] MEDS: NYSTATIN POWDER 15GM BTL EXT PRN ×2 (01:04→20:31)
[2020-02-15 06:18] LABS: Hematocrit (blood only) 30.6 % (42-52); Hemoglobin 8.6 g/dL (14.0-18.0); Mean Corpuscular Hemoglobin 25.3 pg (25-34); Mean Corpuscular Hgb Conc 28.1 g/dL (32-36); Mean Platelet Volume 10.3 fL (7.4-10.4); Platelet Count 269 K/uL (130-400); RDW Coefficient of Variation 19.4 % (11.5-14.5); RDW Standard Deviation 63.9 fL (36.4-46.3); White Blood Count 7.61 K/uL (4.8-10.8)
[2020-02-15 06:24] LABS: BUN Creatinine Ratio 31.2 (10-20); Calcium 8.7 mg/dl (8.5-10.1); Creatinine Clr Calc Pharmacy 115.8 ml/min; Est GFR (African American) 105.6; Est GFR (Non-African American) 91.1; Magnesium 2.4 mg/dl (1.8-2.4); Phosphorus 3.1 mg/dl (2.5-4.9); Potassium 4.1 mmol/L (3.5-5.1)
[2020-02-15] MEDS: UMECLIDINIUM/VILANTEROL 62.5/25MCG 7 PUFFS/INHALER INH SCH (08:15)
[2020-02-15] MEDS: FLUTICASONE FUROATE 100MCG 14 PUFFS/INHALER INH SCH (08:15)
[2020-02-15] MEDS: MULTIVITAMIN TAB PO SCH (08:16)
[2020-02-15] MEDS: predniSONE 20 MG TAB PO SCH (08:16)
[2020-02-15] MEDS: guaiFENesin 600 MG TABCR PO SCH ×2 (08:16→20:30)
[2020-02-15] MEDS: ATENOLOL 25 MG TABLET PO SCH ×2 (08:16→20:30)
[2020-02-15] MEDS: PANTOprazole 40 MG in SYRINGE 0 ML IV SCH (08:18)
[2020-02-15] MEDS: FUROSEMIDE 20 MG in SYRINGE 0 ML IV SCH ×2 (09:21→19:23)
--- NOTE | 2020-02-15 09:24 | Palliative Care Consultation ---
Date of Consultation February 15, 2020 Assessment & Plan (1) Palliative care encounter: This patient is a 74 year old male who presented to the [facility] with a five day history of hematochezia, along with weakness. He has a PMH that includes Atrial Fibrillation and is on Rivaroxaban. Additionally, he has CHF, and COPD and wears 3-4 liters of supplemental home oxygen at baseline, along with a CPAP machine. ON admission he has been receiving treatment for CHF, maintaining his hemodynamic balance, and wearing BiPAP PRN at at ; however, he has not been making significant improvement. Pulmonary did see this gentleman who recommended continued use of BiPAP, even upon discharge at home. Despite treatment, he is making little improvement and remains having RIVERA and at rest. He does desaturate into the 70s and is becoming more lethargic. He has a that lives with him at home. Palliative Care has been consulted to discuss goals of care and provide symptom management. Patient was sitting in his bedside chair watching television in no apparent distress. Patient is significantly hard of hearing, hears me best when I am close to his left side. Lengthy conversation regarding his disease process and overall big picture indentification of what he would like done regarding halfway goals. The patient is receptive to the conversation and would like me to talk with his , Rosa, as well. He understands that his COPD and CHF are becoming more difficult to manage. He would like to persue rehabilitation and return home, but when he returns home, he is not certain that he would want to return to the hospital. Lengthy discussion held with patients regarding hospice and qualifying factors and logistics. POLST form completed with the patient at his bedside indicating DNR/DNI, [employer], trial abx and no artificial nutrition/hydration. Palliative Care will follow from a symptom management standpoint and if any other needs arise. (2) Chronic obstructive pulmonary disease: The patient has been evaluated by Pulmonary medicine. patient wears 3-4 liters of supplemental O2 at baseline. He always uses a CPAP at bedtime at home. He is a chronic smoker, although recently has participated in smoking cessation. He was started on a long acting inhaler and is receiving steroids. Roxanol may benefit for air hunger - this has been ordered: Roxanol 5 mg PO Q4 PRN and we will reevaluate response and use of it. Discussion held with patient and regarding hospice and qualifying diagnosis of COPD COPD type: unspecified COPD Qualified Code(s): J44.9 - Chronic obstructive pulmonary disease, unspecified (3) CHF (congestive heart failure): Patient has had complicated course of CHF and COPD. Discussion held with patient and regarding hospice and qualifying diagnosis of CHF (4) Heme positive stool: (5) Anemia: Anemia type: unspecified type Qualified Code(s): D64.9 - Anemia, unspecified History of Present Illness Reason for Consultation: Goals of Care Requesting Physician: Elena Brar MD Attending Physician: Avila Abraham History of Present Illness This patient is a 74 year old male who presented to the [facility] with a five day history of hematochezia, along with weakness. He has a PMH that includes Atrial Fibrillation and is on Rivaroxaban. Additionally, he has CHF, and COPD and wears 3-4 liters of supplemental home oxygen at baseline, along with a CPAP machine. On admission he has been receiving treatment for CHF, maintaining his hemodynamic balance, and wearing BiPAP PRN at at HS; however, he has not been making significant improvement. Pulmonary did see this gentleman who recommended continued use of BiPAP, even upon discharge at home. Despite treatment, he is making little improvement and remains having RIVERA and at rest. He does desaturate into the 70s and is becoming more lethargic. He has a that lives with him at home. Palliative Care has been consulted to discuss goals of care and provide symptom management. Please see A/P for further details. Thank you kindly for involving the palliative care consultation service with this individual. Allergies Allergy/AdvReac Type Severity Reaction Status Date / Time adhesive Allergy Mild TAPE-RASH Verified 02/02/20 13:08 oxycodone Allergy Mild RASH Verified 02/02/20 13:08 diltiazem Allergy Unknown Verified 02/02/20 13:08 Home Medications Medication Instructions Recorded Confirmed Type Calcium 600 + D(3) 1 cap PO BID 08/21/18 02/02/20 History nlyza-fo-0-thb-vtj-nmvfcmy-ast 1 cap PO QAM 08/21/18 02/02/20 History [MegaRed [place]-3 Krill Oil] mometasone [Nasonex] 2 spray INTRANASAL HS 08/21/18 02/02/20 History multivitamin 1 tab PO QAM 08/21/18 02/02/20 History triamcinolone acetonide 1 applic TOPICAL DAILY PRN 08/21/18 02/02/20 History cyanocobalamin (vitamin B-12) 1,000 mcg PO QAM 11/05/18 02/02/20 History [Vitamin B-12] digoxin 125 mcg (0.125 mg) tablet 125 mcg PO QAM #90 tab 07/27/19 02/02/20 Rx rivaroxaban 20 mg tablet 20 mg PO QAM #90 tab 07/27/19 02/02/20 Rx atorvastatin 80 mg tablet 80 mg PO HS #90 tab 09/11/19 02/02/20 Rx potassium chloride 10 mEq 20 meq PO BID #360 tab 10/01/19 02/02/20 Rx tablet,extended release atenolol 100 mg tablet 200 mg PO BID #360 tab 11/04/19 02/02/20 Rx albuterol sulfate 90 mcg/actuation 1 puff INHALATION Q6H PRN #18 g 11/18/19 02/02/20 Rx aerosol inhaler ipratropium 0.5 mg-albuterol 3 mg 3 ml INHALATION Q6H PRN #180 ml 11/18/19 02/02/20 Rx (2.5 mg base)/3 mL nebulization soln omeprazole 40 mg capsule,delayed 40 mg PO BID #180 cap 12/15/19 02/02/20 Rx release yatznuyufef-hpuyrqiyh-fqoxfzbj 1 inh INH QAM 02/02/20 02/02/20 History [Trelegy Ellipta] furosemide 40 mg PO BID 02/02/20 02/02/20 History metolazone 2.5 mg PO FR 02/02/20 02/02/20 History montelukast 10 mg PO QAM 02/02/20 02/02/20 History Patient History Medical History (Updated 02/16/20 @ 09:06 by Avila Abraham) Anemia Atrial fibrillation dx 4-5 years ago --reason for xarelto--follows with Dr. Luna Walker esophagus Bilateral pleural effusion Chronic obstructive pulmonary disease Denies any h/o hospitalization or intubation. Used advair this am. Has not used albuterol for a few months. Chronic respiratory failure with hypoxia and hypercapnia Difficulty swallowing GERD (gastroesophageal reflux disease) History of heart artery stent x1 2008 @ [facility] by Dr. Luna History of prostate cancer Hyperlipidemia Hypertension Morbid obesity with BMI of 45.0-49.9, adult On anticoagulant therapy On home oxygen therapy 2-3L N/C at all times Palliative care encounter Sleep apnea CPAP with 2-3L Surgical History History of bilateral cataract extraction History of cardiac cath 2008 @ [facility] - HAD STENT X1 History of colonoscopy History of esophagogastroduodenoscopy (EGD) EUS 03/2019 [facility] EUS 11/21/18 Glidescope 4 with grade 1 view History of lumbar surgery hardware in place History of prostate biopsy malignant History of prostatectomy History of right shoulder replacement History of total left hip replacement History of total right hip replacement History of umbilical hernia repair Hx of esophagogastroduodenoscopy Hx of nasal septoplasty Family History Uncle Prostate cancer Mother Septicemia Father COPD (chronic obstructive pulmonary disease) Pancreatic cancer Other No family history of adverse response to anesthesia Social History Smoking Status: Former smoker Tobacco Type: Cigarettes Age Started Using Tobacco: 17; Age Quit Using Tobacco: 54; packs per day: 1; Years Smoked: 37; Second Hand Exposure: No; Hx Alcohol Use: Yes Alcohol type: hard liquor Alcohol Intake Frequency Comment: 2-3 daily Hx Substance Use: No Preferred Language: Maltese Communication Ability: Effective Hearing Ability: Use of Hearing Aid Stores [employer] Required: No Beliefs That Will Affect Care: None marital status: Current Living Situation: Spouse Current Living Situation Comment: has step-children 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 Feels Safe at Home: Yes Seatbelt Use: always Sunscreen Use: No Assistive Devices: Walker Physical Exam Constitutional: + ill appearing, + obese and cooperative Respiratory: + uses accessory muscles and + cough Auscultation: + diminished lung sounds and + rhonchi Cardiovascular: Rate/Rhythm: + tachycardic Heart Sounds: normal S1 and normal S2 Extremities: normal capillary refill and + edema Gastrointestinal (Abdomen): Inspection/Auscultation: + abdomen distended Psychiatric: Orientation: alert and oriented x 3 Insight: good insight Judgement: good judgement Genitourinary: indwelling raphael catheter Lymphatic: + lymphedema Results & Data ([place]) Vital Signs (Past 12 Hours) Vital Signs Temp Pulse Pulse Pulse Resp BP Pulse Ox 02/15/20 07:12 36.5 C 99 H 16 93/60 L 95 02/15/20 07:03 101 H 20 94 02/15/20 00:45 94 H 94 H 20 94 02/14/20 23:36 36.5 C 98 H 20 90/54 L 94 02/14/20 21:56 95 H 28 H 99 PG Care Time/CCT Total # of Minutes Spent Total Time Spent with Patient: Total time spent is greater than 50% in coordination of care (as documented) at patient's floor/unit and/or counseling patient: 100 Coding Level of Care Code 53328 Inpt Consult Level 4 Diagnoses Palliative care encounter Z51.5 Chronic obstructive pulmonary disease J44.9 COPD type: unspecified COPD CHF (congestive heart failure) I50.9 Heme positive stool R19.5 Anemia D64.9 Anemia type: unspecified type Time Spent (min) 100 Time Spent Midlevel Total time spent 100 minutes with > 50% of that time spent assessing the patient, discussing goals of care with the patient and his , completing a POLST form and collaborating with the IDT
[2020-02-15] MEDS ORDERED: FUROSEMIDE 40 MG in SYRINGE 0 ML IV ONE (09:30)
[2020-02-15] MEDS ORDERED: MoRPHine SULFATE 5 MG/0.25 ML UDP PO PRN (10:48)
--- NOTE | 2020-02-15 13:27 | Electrocardiogram Report ---
Test Reason : Blood Pressure : / mmHG Vent. Rate : 088 BPM Atrial Rate : 394 BPM P-R Int : 000 ms QRS Dur : 098 ms QT Int : 324 ms P-R-T Axes : 000 008 044 degrees QTc Int : 392 ms Atrial fibrillation Low voltage QRS Possible Anterolateral infarct (cited on or before 02-FEB-2020) Abnormal ECG When compared with ECG of 02-FEB-2020 12:17, Vent. rate has increased BY 34 BPM Questionable change in initial forces of Lateral leads Confirmed by Richard Sams ([id number]) on 02/15/2020 1:27:31 PM Referred By: REFERRED SELF Confirmed By:Richard Sams
--- NOTE | 2020-02-15 13:43 | Pulmonology Progress Note ---
Date of Service February 15, 2020 Assessment & Plan (1) Acute on chronic respiratory failure with hypoxia and hypercapnia: --Acute on chronic hypercapnic hypoxic respiratory failure Multifactorial Underlying SHIRA/OHS playing a role Diastolic CHF as well as recent history of XIOMY We will continue with diuresis as tolerated. Keep the patient negative balance. Needs to be compliant with CPAP/BiPAP in the hospital as well as at home Keep O2 saturation between 88-92% --Metabolic alkalosis Is a combination of chronic respiratory acidosis as well as contraction alkalosis from Lasix use Patient was on Diamox which was recently stopped. --COPD Continue with Anoro and Arnuity Discharged only on Anoro. --SHIRA/OHS Continue with BiPAP while in the hospital --Morbid obesity Advised to lose weight Plan: Patient is s/p Diamox. Patient's metabolic alkalosis is most likely because of the use of Lasix. If the patient's bicarb again goes greater than 38 can give Diamox for total of 6 doses. Keep an eye on while giving Diamox pH to make sure it is not getting acidotic. Patient is back to his baseline 4 L oxygen saturating 93%. No further recommendations from pulmonary perspective. Will sign off. Recall if needed. Please note the above document was generated using voice recognition software. It may contain grammatical, syntax or spelling errors.Any formal questions or concerns about the content, text or information contained within the body of this dictation should be directly addressed to the provider for clarification. (2) Chronic obstructive pulmonary disease: COPD type: unspecified COPD Qualified Code(s): J44.9 - Chronic obstructive pulmonary disease, unspecified (3) CHF (congestive heart failure): (4) SHIRA (obstructive sleep apnea): (5) Morbid obesity with BMI of 45.0-49.9, adult: (6) Bilateral pleural effusion: Admission and Anticipated Discharge Date Admission Date: February 02, 2020 Subjective Patient seen and examined at bedside. No acute distress, no adverse events overnight. Patient was sitting on a chair at the time of examination. He was saturating 97% on 5 L nasal cannula. Went down to 4 L. Denies any chest pain, no shortness of breath, no headache, no nausea, no vomiting. Patient was last seen at his hearing is worse while he is in the hospital. Urinating well. Review of Systems Review of Systems: All systems reviewed & are unremarkable except as noted in Subjective Physical Exam Physical Exam: Constitutional: No acute distress HEENT: EOMI, PERRLA Respiratory system: Decreased air entry bilaterally, no wheeze, no rhonchi, positive crackles bilateral lower lobes CVS: S1-S2 positive, no murmurs or gallops, distant heart sounds Abdomen: Soft, nontender, nondistended, positive bowel sounds x4, obese Extremities: +2 pulses bilaterally radialis/ dorsalis pedis, no cyanosis, +3 pitting edema bilateral lower extremity Neuro: Awake alert oriented x3 Psych: Normal mood and affect G/U: Positive Menendez Skin: no rashes, warm and dry Lymphatic: no cervical or axillary lymphadenopathy Results & Data Results & Data ([facility]) Vital Signs (Past 12 Hours) Vital Signs Temp Pulse Pulse Resp BP Pulse Ox 02/15/20 12:30 112 H 18 93 02/15/20 07:12 36.5 C 99 H 16 93/60 L 95 02/15/20 07:03 101 H 20 94 02/15/20 05:21 02/15/20 05:21 PG Care Time/CCT Total # of Minutes Spent Total Time Spent with Patient: Total time spent is greater than 50% in coordination of care (as documented) at patient's floor/unit and/or counseling patient: Coding Level of Care Code 26863 Subseq Hosp Care Lvl 3 Diagnoses Acute on chronic respiratory failure with hypoxia and hypercapnia J96.21; J96.22 Chronic obstructive pulmonary disease J44.9 COPD type: unspecified COPD CHF (congestive heart failure) I50.9 SIHRA (obstructive sleep apnea) G47.33 Morbid obesity with BMI of 45.0-49.9, adult E66.01; Z68.42 Bilateral pleural effusion J90
[2020-02-15] MEDS ORDERED: acetaZOLAMIDE 500 MG in SYRINGE 0 ML IV ONE (17:15)
[2020-02-15] MEDS: PANTOprazole 40 MG TAB PO SCH (20:30)
[2020-02-15] MEDS: MONTELUKAST SODIUM 10 MG TABLET PO SCH (20:30)
[2020-02-16] MEDS: ALBUT/IPRATROP 3MG/0.5MG NEB 3 ML VIAL NEB SCH ×2 (01:18→06:57)
[2020-02-16 06:36] LABS: Hematocrit (blood only) 31.8 % (42-52); Hemoglobin 8.9 g/dL (14.0-18.0)
[2020-02-16 07:02] LABS: BUN Creatinine Ratio 31.6 (10-20); Calcium 9.2 mg/dl (8.5-10.1); Creatinine Clr Calc Pharmacy 119.8 ml/min; Est GFR (Non-African American) 93.2; Potassium 3.9 mmol/L (3.5-5.1)
[2020-02-16] MEDS: ATENOLOL 25 MG TABLET PO SCH (08:27)
[2020-02-16] MEDS: FLUTICASONE FUROATE 100MCG 14 PUFFS/INHALER INH SCH (08:27)
[2020-02-16] MEDS: UMECLIDINIUM/VILANTEROL 62.5/25MCG 7 PUFFS/INHALER INH SCH (08:27)
[2020-02-16] MEDS: predniSONE 20 MG TAB PO SCH (08:28)
[2020-02-16] MEDS: guaiFENesin 600 MG TABCR PO SCH ×2 (08:28→20:03)
[2020-02-16] MEDS: PANTOprazole 40 MG TAB PO SCH ×2 (08:28→20:03)
[2020-02-16] MEDS: MULTIVITAMIN TAB PO SCH (08:28)
--- NOTE | 2020-02-16 08:51 | Hospitalist Progress Note ---
Date of Service February 15, 2020 Assessment & Plan (1) Acute on chronic respiratory failure with hypoxia and hypercapnia: Requires 4L NC O2 continuously at baseline. acute component 2nd to decompensated CHF & COPD exacerbation. chronically - component of SHIRA/obesity hypoventilation as well as COPD. continue diuresis, steroids, nebs. (2) Acute on chronic diastolic (congestive) heart failure: Previous echo 2018 with preserved LV and RV function. Lasix 40mg IV x 1 this am. Then 500mg IV of acetazolamide this afternoon. BMP in am. (3) Chronic obstructive pulmonary disease: With exacerbation. Cont nebs. Cont prednisone - no wean today. Completed course of antibiotics. Pulmonary toilet. Diurese for decompensated CHF. (4) Anemia: Total 4 units PRBCs since admission. Suspected GI bleeding. Remains on PPI IV twice daily. Convert latter to oral. Start ferrous sulfate. CBC in am. (5) Metabolic alkalosis: 2nd diuresis. diamox x 1 again today. wear BIPAP at night/naps. BMP am. (6) SHIRA (obstructive sleep apnea): bipap at night 12/12 (7) Complicated UTI (urinary tract infection): 02-02 urine culture with > 100,000 enterococcus faecalis s/p 7 day course of amoxicillin (8) Afib: digoxin was supratherapeutic at presentation and he was given digibind. digoxin on hold since then. remains on atenolol BID. ideally would use beta selective agent for rate control. xarelto on hold due to concerns for GI bleeding. (9) Acute GI bleeding: Hemorrhagic disorder d/t extrinsic circulating anticoagulants. With resulting acute blood loss anemia. s/p 4 units PRBCs since admission. PPI twice daily. Ferrous sulfate supplementation. Cont to hold xarelto. Previous significant work up in 2019 with endoscopes and capsule endoscopy was unrevealing. (10) XIOMY (acute kidney injury): 2nd ATN. Resolved. Patient did have dialysis on 2 occasions earlier in stay. None needed since. Dialysis catheter removed on 02/07. Making good urine with diuretics. BMP in am. (11) Elevated troponin: likely demand ischemia in the face of severe anemia earlier this stay. doubt ACS. (12) Digoxin toxicity: pt did have digibind + dialysis at presentation. resolved. (13) Morbid obesity with BMI of 45.0-49.9, adult: BMI 49-50 (14) CAD (coronary artery disease): h/o stent in the past primary economics professor - Dr Luna, [facility] Cardiology (15) DVT prophylaxis: SCDs chemoprophylaxis contraindicated in pt with Acute blood loss anemia and suspicion of GI bleeding appreciate palliative care assistance, POLST completion DNR status Admission and Anticipated Discharge Date Admission Date: February 02, 2020 Subjective patient resting in bed watching TV during the visit. very hard of hearing - feels that he has "plugged ears", like he's on an airplane. denies dyspnea at rest but with any activity has such. continues with edema of legs and abd swelling but thinks it is modestly improved. denies pain any location. eating fair. Review of Systems Constitutional: no fever Respiratory: + cough Cardiovascular: + edema; no chest pain and no orthopnea Gastrointestinal: + bloating; no abdominal pain and no nausea Physical Exam Constitutional: + morbidly obese and + frail appearing; no acute distress and no altered mental status ENMT: external ear and nose normal, oropharynx normal Respiratory: Auscultation: + diminished lung sounds and + crackles (bases); no wheezes Cardiovascular: Rate/Rhythm: regular rate and + irregularly irregular Heart Sounds: normal S1, normal S2 and + murmur (2/6 systolic LSB) Vessels: + JVD (to the jaw ), posterior tibial pulses present and dorsalis pedis pulses present Extremities: + edema (2-3+ b/l legs ) Gastrointestinal (Abdomen): normal bowel sounds, soft, nontender, no hepatosplenomegaly Inspection/Auscultation: + abdomen distended (with edema/ascites ) Skin: + pallor Psychiatric: Orientation: alert and oriented x 3 Results & Data Results & Data ([facility]) Vital Signs (Past 12 Hours) Vital Signs Temp Pulse Pulse Resp BP BP Pulse Ox 02/16/20 07:45 37.1 C 96 H 20 89/58 L 93 02/16/20 06:57 103 H 20 96 02/16/20 01:18 96 H 96 H 20 96 02/15/20 23:07 36.4 C L 111 H 20 78/52 L 88/53 L 94 02/15/20 22:53 94 H 26 H 94 PG Care Time/CCT Total # of Minutes Spent Total Time Spent with Patient: Total time spent is greater than 50% in coordination of care (as documented) at patient's floor/unit and/or counseling patient: Coding Level of Care Code 47436 Subseq Hosp Care Lvl 3 Diagnoses Acute on chronic respiratory failure with hypoxia and hypercapnia J96.21; J96.22 Acute on chronic diastolic (congestive) heart failure I50.33 Chronic obstructive pulmonary disease J44.9 COPD type: unspecified COPD Anemia D64.9 Anemia type: unspecified type Metabolic alkalosis E87.3 SHIRA (obstructive sleep apnea) G47.33 Complicated UTI (urinary tract infection) N39.0 Afib I48.91 Atrial fibrillation type: unspecified Acute GI bleeding K92.2 XIOMY (acute kidney injury) N17.9 Elevated troponin R77.8 Digoxin toxicity T46.0X1S Encounter type: sequela Injury intent: accidental or unintentional Morbid obesity with BMI of 45.0-49.9, adult E66.01; Z68.42 CAD (coronary artery disease) I25.10 DVT prophylaxis Z29.9 (1) Chronic obstructive pulmonary disease COPD type: unspecified COPD Qualified Code(s): J44.9 - Chronic obstructive pulmonary disease, unspecified (2) Anemia Anemia type: unspecified type Qualified Code(s): D64.9 - Anemia, unspecified (3) Afib Atrial fibrillation type: unspecified Qualified Code(s): I48.91 - Unspecified atrial fibrillation (4) Digoxin toxicity Encounter type: sequela Injury intent: accidental or unintentional Qualified Code(s): T46.0X1S - Poisoning by cardiac-stimulant glycosides and drugs of similar action, accidental (unintentional), sequela
[2020-02-16] MEDS ORDERED: ALBUT/IPRATROP 3MG/0.5MG NEB 3 ML VIAL NEB PRN (09:26)
[2020-02-16] MEDS: ACETAMINOPHEN 325 MG TAB PO PRN (12:15)
[2020-02-16] MEDS ORDERED: FUROSEMIDE 40 MG in SYRINGE 0 ML IV ONE (15:30)
--- NOTE | 2020-02-16 17:21 | XRay Report ---
XR chest 1V portable HISTORY: 74 years-old Male extensive b/l wheezing acute shortness of breath with wheezing COMPARISON: Chest radiograph 02/10/2020 TECHNIQUE: Portable AP view the chest FINDINGS: Moderate cardiomegaly with pulmonary vascular congestion and interstitial opacities. No pneumothorax. Bilateral pleural effusions with bibasilar consolidation, left greater than right appears unchanged from comparison. Degenerative changes of the spine and left shoulder. Right shoulder total joint arth roplasty. IMPRESSION: 1. Cardiomegaly with unchanged pulmonary edema. 2. Pleural effusions with bibasilar consolidation, left greater than right. ACT 112: Negative or not required by law. The above report was generated using voice recognition software. It may contain grammatical, syntax o r spelling errors. Electronically signed by: Kvng Santana M.D. 02/16/2020 5:20 PM
[2020-02-16] MEDS: methylPREDNISolone 40 MG in SYRINGE 0 ML IV SCH (19:43)
[2020-02-16] MEDS: MONTELUKAST SODIUM 10 MG TABLET PO SCH (20:03)
[2020-02-16] MEDS: METOPROLOL TARTRATE 25 MG TAB PO SCH (20:03)
[2020-02-16] MEDS: NYSTATIN POWDER 15GM BTL EXT PRN (20:07)
--- NOTE | 2020-02-16 20:12 | Hospitalist Progress Note ---
Date of Service February 16, 2020 Assessment & Plan (1) Acute on chronic respiratory failure with hypoxia and hypercapnia: Requires 3-4L NC O2 continuously at baseline. acute component 2nd to decompensated CHF & COPD exacerbation. chronically - component of SHIRA/obesity hypoventilation as well as COPD. continue diuresis, steroids, nebs. will change steroids to IV solumedrol today due to worsening wheezing. will repeat his cxr today due to the wheezing. (2) Acute on chronic diastolic (congestive) heart failure: Previous echo 2018 with preserved LV and RV function. will obtain repeat echo to ensure no change in systolic function. Give additional IV lasix today. Change atenolol to metoprolol. (3) Chronic obstructive pulmonary disease: With exacerbation. Cont nebs. Seems worse today - change PO prednisone to IV solumedrol 40mg IV q8h. Completed course of antibiotics. Pulmonary toilet. Diurese for decompensated CHF. Repeat a cxr today. (4) Anemia: Total 4 units PRBCs since admission. Suspected GI bleeding. PPI bid. Consider ferrous sulfate. CBC in am. Consider ferritin check. (5) Metabolic alkalosis: 2nd diuresis. 2nd to compensation for resp acidosis. wear BIPAP at night/naps. BMP am. (6) SHIRA (obstructive sleep apnea): bipap at night / (7) Complicated UTI (urinary tract infection): 11-4 urine culture with > 100,000 enterococcus faecalis s/p 7 day course of amoxicillin (8) Afib: digoxin was supratherapeutic at presentation and he was given digibind. digoxin on hold since then. remains on atenolol BID. change this to metoprolol. xarelto on hold due to concerns for GI bleeding. (9) Acute GI bleeding: Hemorrhagic disorder d/t extrinsic circulating anticoagulants. With resulting acute blood loss anemia. s/p 4 units PRBCs since admission. PPI twice daily. Cont to hold xarelto. Previous significant work up in 2019 with endoscopes and capsule endoscopy was unrevealing. (10) XIOMY (acute kidney injury): 2nd ATN. Resolved. Patient did have dialysis on 2 occasions earlier in stay. None needed since. Dialysis catheter removed on 02/07. Making good urine with diuretics. BMP in am. (11) Elevated troponin: likely demand ischemia in the face of severe anemia earlier this stay. doubt ACS. (12) Digoxin toxicity: pt did have digibind + dialysis at presentation. resolved. 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 he had woken up with PND. he feels wheezy today and short of breath. weakness continues. mild cough; no sputum. no chest pain or abd pain. eating ok. Review of Systems Constitutional: + fatigue; no fever Respiratory: + cough, + dyspnea on exertion and + wheezing Cardiovascular: + paroxysmal nocturnal dyspnea and + edema; no chest pain Gastrointestinal: + bloating; no nausea and no vomiting Physical Exam Constitutional: + morbidly obese and + frail appearing; no acute distress and no altered mental status ENMT: external ear and nose normal, oropharynx normal Respiratory: Auscultation: + diminished lung sounds, + crackles (bases, minimal) and + wheezes (Extensive today ) Cardiovascular: Rate/Rhythm: regular rate and + irregularly irregular Heart Sounds: normal S1, normal S2 and + murmur (2/6 systolic LSB) Vessels: + JVD, posterior tibial pulses present and dorsalis pedis pulses present Extremities: + edema (3+ b/l legs ) Gastrointestinal (Abdomen): normal bowel sounds, soft, nontender, no hepatosplenomegaly Inspection/Auscultation: + abdomen distended (with edema/ascites ) Skin: + pallor Psychiatric: Orientation: alert and oriented x 3 Results & Data Results & Data ([facility]) Vital Signs (Past 12 Hours) Vital Signs Temp Pulse Resp BP Pulse Ox 02/16/20 15:38 36.7 C 98 H 18 97/67 L 94 02/16/20 13:52 95 Laboratory Results Laboratory Results - last 24 hr 02/16/20 02/16/20 05:52 05:52 Hgb 8.9 L Hct 31.8 L Sodium 141 Potassium 3.9 Chloride 99 Carbon Dioxide 37 H Anion Gap 4.0 BUN 23 H Creatinine 0.72 Est Cr Clr Drug Dosing 119.8 Est GFR ( Amer) 108.0 Est GFR (Non-Af Amer) 93.2 BUN/Creatinine Ratio 31.6 H Glucose 86 Calcium 9.2 PG Care Time/CCT Total # of Minutes Spent Total Time Spent with Patient: Total time spent is greater than 50% in coordination of care (as documented) at patient's floor/unit and/or counseling patient: Coding Level of Care Code 55815 Subseq Hosp Care Lvl 3 Diagnoses Acute on chronic respiratory failure with hypoxia and hypercapnia J96.21; J96.22 Acute on chronic diastolic (congestive) heart failure I50.33 Chronic obstructive pulmonary disease J44.9 COPD type: unspecified COPD Anemia D64.9 Anemia type: unspecified type Metabolic alkalosis E87.3 SHIRA (obstructive sleep apnea) G47.33 Complicated UTI (urinary tract infection) N39.0 Afib I48.91 Atrial fibrillation type: unspecified Acute GI bleeding K92.2 XIOMY (acute kidney injury) N17.9 Elevated troponin R77.8 Digoxin toxicity T46.0X1S Encounter type: sequela Injury intent: accidental or unintentional Morbid obesity with BMI of 45.0-49.9, adult E66.01; Z68.42 CAD (coronary artery disease) I25.10 DVT prophylaxis Z29.9 (1) Digoxin toxicity Encounter type: sequela Injury intent: accidental or unintentional Qualified Code(s): T46.0X1S - Poisoning by cardiac-stimulant glycosides and drugs of similar action, accidental (unintentional), sequela (2) Anemia Anemia type: unspecified type Qualified Code(s): D64.9 - Anemia, unspecified (3) Afib Atrial fibrillation type: unspecified Qualified Code(s): I48.91 - Unspecified atrial fibrillation (4) Chronic obstructive pulmonary disease COPD type: unspecified COPD Qualified Code(s): J44.9 - Chronic obstructive pulmonary disease, unspecified
[2020-02-17] MEDS: methylPREDNISolone 40 MG in SYRINGE 0 ML IV SCH ×2 (05:04→15:55)
[2020-02-17 07:14] LABS: BUN Creatinine Ratio 30.8 (10-20); Calcium 9.3 mg/dl (8.5-10.1); Creatinine Clr Calc Pharmacy 123.1 ml/min; Est GFR (African American) 109.3; Est GFR (Non-African American) 94.3; Magnesium 2.3 mg/dl (1.8-2.4); Potassium 4.3 mmol/L (3.5-5.1)
[2020-02-17 07:21] LABS: Hematocrit (blood only) 32.4 % (42-52); Mean Corpuscular Hemoglobin 25.2 pg (25-34); Mean Corpuscular Hgb Conc 27.8 g/dL (32-36); Mean Corpuscular Volume 90.8 fL (80-100); Mean Platelet Volume 10.9 fL (7.4-10.4); Platelet Count 342 K/uL (130-400); RDW Standard Deviation 63.4 fL (36.4-46.3); Red Blood Count 3.57 M/uL (4.7-6.1); White Blood Count 6.53 K/uL (4.8-10.8)
[2020-02-17] MEDS: PANTOprazole 40 MG TAB PO SCH ×2 (09:29→20:26)
[2020-02-17] MEDS: guaiFENesin 600 MG TABCR PO SCH ×2 (09:29→20:26)
[2020-02-17] MEDS: METOPROLOL TARTRATE 25 MG TAB PO SCH ×2 (09:29→20:25)
[2020-02-17] MEDS: MULTIVITAMIN TAB PO SCH (09:30)
[2020-02-17] MEDS: UMECLIDINIUM/VILANTEROL 62.5/25MCG 7 PUFFS/INHALER INH SCH (09:30)
[2020-02-17] MEDS: FLUTICASONE FUROATE 100MCG 14 PUFFS/INHALER INH SCH (09:30)
[2020-02-17] MEDS ORDERED: FUROSEMIDE 40 MG in SYRINGE 0 ML IV ONE (10:15)
--- NOTE | 2020-02-17 11:29 | Palliative Care Progress Note ---
Date of Service February 17, 2020 Assessment & Plan (1) Palliative care encounter: Patient was sitting in his bedside chair watching television in no apparent distress when I entered the room. He is requiring 3 LNC and appears to have return to a baseline O2 need standpoint. Patient continues to plan for [facility] for rehab and transition to a more conservative approach after he returns home. I did order Roxanol on Saturday for air hunger. He has not utilized any doses and he does recall that it is available for him. He denies struggling to breathe and feels comfortable with the current plan for him See below for COPD details. POLST form completed on 02/15/20 with the patient at his bedside indicating DNR/DNI, [employer], trial abx and no artificial nutrition/hydration. For now, Palliative Care will follow peripherally unless requested or if the patient has a decline in his condition. (2) Chronic obstructive pulmonary disease: The patient has been evaluated by Pulmonary medicine. patient wears 3-4 liters of supplemental O2 at baseline. He always uses a CPAP at bedtime at home. He is a chronic smoker, although recently has participated in smoking cessation. He was started on a long acting inhaler and is receiving steroids. Roxanol may benefit for air hunger - this has been ordered: Roxanol 5 mg PO Q4 PRN . Pt has not utilized any doses. (3) CHF (congestive heart failure): Patient has had complicated course of CHF and COPD. Discussion held with patient regarding hospice and qualifying diagnosis of CHF (4) Heme positive stool: (5) Anemia: Admission and Anticipated Discharge Date Admission Date: February 02, 2020 Subjective patient resting in bed watching TV during the visit. very hard of hearing - feels that he has "plugged ears", like he's on an airplane. denies dyspnea at rest but with any activity has such. continues with edema of legs and abd swelling but thinks it is modestly improved. denies pain any location. eating fair. Physical Exam Constitutional: + ill appearing, + obese and cooperative Respiratory: + uses accessory muscles and + cough Auscultation: + diminished lung sounds and + rhonchi Cardiovascular: Rate/Rhythm: + tachycardic Heart Sounds: normal S1 and normal S2 Extremities: normal capillary refill and + edema Gastrointestinal (Abdomen): Inspection/Auscultation: + abdomen distended Psychiatric: Orientation: alert and oriented x 3 Insight: good insight Judgement: good judgement Lymphatic: + lymphedema Results & Data ([facility]) Vital Signs (Past 12 Hours) Vital Signs Temp Pulse Pulse Resp BP Pulse Ox 02/17/20 07:00 37.1 C 96 H 16 101/65 93 02/17/20 00:02 87 18 90 PG Care Time/CCT Total # of Minutes Spent Total Time Spent with Patient: Total time spent is greater than 50% in coordination of care (as documented) at patient's floor/unit and/or counseling patient: 35 Coding Level of Care Code 73707 Subseq Hosp Care Lvl 3 Diagnoses Palliative care encounter Z51.5 Chronic obstructive pulmonary disease J44.9 COPD type: unspecified COPD CHF (congestive heart failure) I50.9 Heme positive stool R19.5 Anemia D64.9 Anemia type: unspecified type Time Spent (min) 35 Time Spent Midlevel Total time spent 35 minutes with > 50% of that time spent assessing the patient, discussing plan of care and symptom management with patient; all while collaborating with IDT (1) Chronic obstructive pulmonary disease COPD type: unspecified COPD Qualified Code(s): J44.9 - Chronic obstructive pulmonary disease, unspecified (2) Anemia Anemia type: unspecified type Qualified Code(s): D64.9 - Anemia, unspecified
--- NOTE | 2020-02-17 14:42 | XCELERA ---
[id number]
[2020-02-17] MEDS: MONTELUKAST SODIUM 10 MG TABLET PO SCH (20:26)
--- NOTE | 2020-02-17 20:33 | Hospitalist Progress Note ---
Date of Service February 17, 2020 Assessment & Plan (1) Acute on chronic respiratory failure with hypoxia and hypercapnia: Requires 4L NC O2 continuously at baseline. acute component 2nd to decompensated CHF & COPD exacerbation. both improved albeit slowly. chronically - component of SHIRA/obesity hypoventilation as well as COPD. continue diuresis, steroids, nebs. (2) Acute on chronic diastolic (congestive) heart failure: Previous echo 2018 with preserved LV and RV function. Echo today with EF >70%, RV function preserved. Lasix 40mg IV x 1 again this am. BMP in am. Cont beta surjit. (3) Chronic obstructive pulmonary disease: With exacerbation. Improved. Wean steroids. Cont bronchodilators. Completed course of antibiotics. Pulmonary toilet. Diurese for decompensated CHF. (4) Anemia: Total 4 units PRBCs since admission. Suspected GI bleeding. Remains on PPI IV twice daily. Convert latter to oral. Check ferritin in am - if low then IV venofer. Hemoglobin in am for stability. (5) Metabolic alkalosis: 2nd diuresis and acute/chronic resp acidosis. wear BIPAP at night/naps. BMP am. (6) SHIRA (obstructive sleep apnea): bipap at night 12/12 (7) Complicated UTI (urinary tract infection): - urine culture with > 100,000 enterococcus faecalis s/p 7 day course of amoxicillin (8) Afib: digoxin was supratherapeutic at presentation and he was given digibind. digoxin on hold since then. changed atenolol to metoprolol for beta selective rate control. (9) Acute GI bleeding: Hemorrhagic disorder d/t extrinsic circulating anticoagulants. With resulting acute blood loss anemia. s/p 4 units PRBCs since admission. PPI twice daily. Cont to hold xarelto. Previous significant work up in 2019 with endoscopes and capsule endoscopy was unrevealing. Check ferritin and hb in am (10) XIOMY (acute kidney injury): 2nd ATN. Resolved. Patient did have dialysis on 2 occasions earlier in stay. None needed since. Dialysis catheter removed on 02/07. Making good urine with diuretics. BMP in am. (11) Elevated troponin: likely demand ischemia in the face of severe anemia earlier this stay. doubt ACS. (12) Digoxin toxicity: pt did have digibind + dialysis at presentation. resolved. 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, [facility] Cardiology cont BB (15) Candidiasis of mouth and esophagus: start nystatin solution 5cc qid (16) DVT prophylaxis: SCDs chemoprophylaxis contraindicated in pt with Acute blood loss anemia and suspicion of GI bleeding appreciate palliative care assistance, POLST completion DNR status updated yesterday evening extensively Admission and Anticipated Discharge Date Admission Date: February 02, 2020 Subjective feels better today less wheezing no cough still w/ dyspnea at times eating ok no pain good spirits despite his situation Review of Systems Constitutional: no fever and no chills Respiratory: no sputum production Cardiovascular: + edema; no chest pain Gastrointestinal: + bloating Physical Exam Constitutional: + morbidly obese and + frail appearing; no acute distress and no altered mental status ENMT: Mouth: + oropharynx abnormality (mild erythema of posterior palate - early thrush?) Respiratory: Auscultation: + diminished lung sounds and + crackles (bases); no wheezes Cardiovascular: Rate/Rhythm: regular rate and + irregularly irregular Heart Sounds: normal S1, normal S2 and + murmur (2/6 systolic LSB) Vessels: + JVD (improved today ), posterior tibial pulses present and dorsalis pedis pulses present Extremities: + edema (3+ b/l legs ) Gastrointestinal (Abdomen): normal bowel sounds, soft, nontender, no hepatosplenomegaly Inspection/Auscultation: + abdomen distended (with edema/ascites ) Skin: + pallor Psychiatric: Orientation: alert and oriented x 3 Results & Data Results & Data ([facility]) Vital Signs (Past 12 Hours) Vital Signs Temp Pulse Resp BP Pulse Ox 02/17/20 20:23 86 16 97/62 L 02/17/20 16:17 36.5 C 88 19 91/54 L 96 Laboratory Results Laboratory Results - last 24 hr 02/17/20 02/17/20 06:33 06:33 WBC 6.53 RBC 3.57 L Hgb 9.0 L Hct 32.4 L MCV 90.8 MCH 25.2 MCHC 27.8 L RDW Std Deviation 63.4 H RDW Coeff of Ezekiel 19.0 H Plt Count 342 MPV 10.9 H Sodium 140 Potassium 4.3 Chloride 100 Carbon Dioxide 38 H Anion Gap 1.0 L BUN 22 H Creatinine 0.70 Est Cr Clr Drug Dosing 123.1 Est GFR ( Amer) 109.3 Est GFR (Non-Af Amer) 94.3 BUN/Creatinine Ratio 30.8 H Glucose 146 H Calcium 9.3 Magnesium 2.3 PG Care Time/CCT Total # of Minutes Spent Total Time Spent with Patient: Total time spent is greater than 50% in coordination of care (as documented) at patient's floor/unit and/or counseling patient: Coding Level of Care Code 89094 Subseq Hosp Care Lvl 3 Diagnoses Acute on chronic respiratory failure with hypoxia and hypercapnia J96.21; J96.22 Acute on chronic diastolic (congestive) heart failure I50.33 Chronic obstructive pulmonary disease J44.9 COPD type: unspecified COPD Anemia D64.9 Anemia type: unspecified type Metabolic alkalosis E87.3 SHIRA (obstructive sleep apnea) G47.33 Complicated UTI (urinary tract infection) N39.0 Afib I48.91 Atrial fibrillation type: unspecified Acute GI bleeding K92.2 XIOMY (acute kidney injury) N17.9 Elevated troponin R77.8 Digoxin toxicity T46.0X1S Encounter type: sequela Injury intent: accidental or unintentional Morbid obesity with BMI of 45.0-49.9, adult E66.01; Z68.42 CAD (coronary artery disease) I25.10 Candidiasis of mouth and esophagus B37.81; B37.0 DVT prophylaxis Z29.9 (1) Digoxin toxicity Encounter type: sequela Injury intent: accidental or unintentional Qualified Code(s): T46.0X1S - Poisoning by cardiac-stimulant glycosides and drugs of similar action, accidental (unintentional), sequela (2) Anemia Anemia type: unspecified type Qualified Code(s): D64.9 - Anemia, unspecified (3) Afib Atrial fibrillation type: unspecified Qualified Code(s): I48.91 - Unspecified atrial fibrillation (4) Chronic obstructive pulmonary disease COPD type: unspecified COPD Qualified Code(s): J44.9 - Chronic obstructive pulmonary disease, unspecified
--- NOTE | 2020-02-17 21:08 | Medical Student Progress Note ---
Date of Service February 17, 2020 Assessment & Plan (1) COPD exacerbation: bilateral wheezing, pulmonary congestion still present, productive cough to a lesser degree. Completed a course of ABX Plan: continue steroids, and albuterol (2) Acute on chronic diastolic (congestive) heart failure: Still fluid overloaded. Weight only down by 0.2 kg since yesterday. Bilateral edema 3+. Bilateral wheeze on auscultation. Plan: Continue Lasix and acetazolamide. Add an additional does of 40 mg Lasix in the evening. Get weight tomorrow am (3) Acute on chronic respiratory failure with hypoxia and hypercapnia: 2nd to COPD exacerbation, CHF with decompensation, Hx of SHIRA, O2 sat 93% on 4L/m NC. Co2=38 Plan: continue on NC 4 L/min, Bipap at night. (4) Metabolic alkalosis: 2nd to diuretics and steroids. complicated by resp alkalosis due to rapid shallow breathing. Co2 38. Plan: continue bipap at night (5) Acute GI bleeding: Resolved. 4 units of RBC were given. Hg= 9 Plan: continue to hold Xeralto for Afid Cont PPI Continue Iron supplement Monitor with CBC Admission and Anticipated Discharge Date Admission Date: February 02, 2020 Subjective Mr. Anderson says that he feels like he is improving. He denies SOB at rest but has RIVERA. He feel like his edema has gone down. His appetite is not great but still eats. He was able to sit in his chair today. He admits to some headaches, co ughing w/sputum. Denies chest pain, palpitations, fevers, chills, sweats, presyncope, syncope Review of Systems Constitutional: no fever, no chills and no sweats Respiratory: + cough, + chest congestion and + dyspnea on exertion; no dyspnea Cardiovascular: + chest pain with activity, + dyspnea on exertion and + edema; no chest pain at rest, no radiating jaw, neck or arm pain, no dyspnea, no palpitations, no syncope and no calf pain Gastrointestinal: no abdominal pain, no nausea and no vomiting Psychiatric: no behavioral changes, no panic attacks, no difficulty concentrating and no confusion Physical Exam Physical Exam: Was sleeping in bed what I walked in. Shallow, fast breathing. Constitutional: + morbidly obese; no acute distress Respiratory: + labored breathing, + cough and + tachypneic Auscultation: + diminished lung sounds and + wheezes; no crackles, no rales and no rhonchi Cardiovascular: Rate/Rhythm: + tachycardic and + irregularly irregular Heart Sounds: no gallop, no murmur and no cardiac rub Vessels: no JVD and no carotid bruit Extremities: + pedal edema and + edema (3+ bilateral edema ); no calf tenderness Gastrointestinal (Abdomen): Inspection/Auscultation: abdomen normal to inspection, + abdomen distended, normal bowel sounds and + abdominal edema Percussion/Palpation: abdomen nontender, no guarding and abdomen not rigid Neurologic: moves all extremities and awake; not confused Speech / Cognition: + abnormal speech Psychiatric: Orientation: alert and oriented x 3 Apperance: appropriately dressed Eye Contact: good eye contact Speech: normal rate/rhythm/volume of speech Affect: euthymic affect Results & Data ([facility]) Vital Signs (Past 12 Hours) Vital Signs Temp Pulse Resp BP Pulse Ox 02/17/20 20:23 86 16 97/62 L 02/17/20 16:17 36.5 C 88 19 91/54 L 96
[2020-02-18] MEDS: ACETAMINOPHEN 325 MG TAB PO PRN (02:09)
[2020-02-18] MEDS ORDERED: methylPREDNISolone 30 MG in SYRINGE 0 ML IV SCH (04:00)
[2020-02-18 07:50] LABS: Calcium 9.2 mg/dl (8.5-10.1); Est GFR (Non-African American) 93.2; Potassium 4.5 mmol/L (3.5-5.1)
[2020-02-18 08:00] LABS: Thyroid Stimulating Hormone 2.46 uIu/ml (0.300-4.500)
[2020-02-18] MEDS: FLUTICASONE FUROATE 100MCG 14 PUFFS/INHALER INH SCH (09:09)
[2020-02-18] MEDS: UMECLIDINIUM/VILANTEROL 62.5/25MCG 7 PUFFS/INHALER INH SCH (09:09)
[2020-02-18] MEDS: MULTIVITAMIN TAB PO SCH (09:10)
[2020-02-18] MEDS: METOPROLOL TARTRATE 25 MG TAB PO SCH ×2 (09:10→20:45)
[2020-02-18] MEDS: PANTOprazole 40 MG TAB PO SCH ×2 (09:10→20:45)
[2020-02-18] MEDS: ATORVASTATIN 40 MG TAB PO SCH (09:10)
[2020-02-18] MEDS: guaiFENesin 600 MG TABCR PO SCH ×2 (09:10→20:46)
[2020-02-18] MEDS: NYSTATIN SUSP 500,000 U/5 ML UDC PO SCH ×4 (09:10→20:46)
[2020-02-18] MEDS ORDERED: IRON SUCROSE 200 MG in 0.9 % SODIUM CHLORIDE 100 ML IV ONE (10:30)
[2020-02-18] MEDS ORDERED: FUROSEMIDE 40 MG in SYRINGE 0 ML IV ONE (10:30)
[2020-02-18] MEDS: ACETAMINOPHEN 500 MG TAB PO SCH ×2 (13:10→20:45)
[2020-02-18] MEDS ORDERED: acetaZOLAMIDE 500 MG in SYRINGE 0 ML IV ONE (16:30)
--- NOTE | 2020-02-18 16:56 | Medical Student Progress Note ---
Date of Service February 18, 2020 Assessment & Plan (1) COPD exacerbation: bilateral wheezing, pulmonary congestion still present, productive cough to a lesser degree. Completed a course of ABX Plan: continue nebs start steroid taper off. Switch to prednisone 40 mg daily (2) Acute on chronic diastolic (congestive) heart failure: Still fluid overloaded. Weight only down by 2.8 kg on a standing scale compared to bed scale yesterday. Bilateral edema 3+. Bilateral wheeze on auscultation. Plan: Continue Lasix and acetazolamide Get weight tomorrow am, standing scale if possible (3) Acute on chronic respiratory failure with hypoxia and hypercapnia: 2nd to COPD exacerbation, CHF with decompensation, Hx of SHIRA, O2 sat 95% on 4L/m NC. Co2=38 Plan: continue on NC 4 L/min, Bipap at night. try to stay on bipap at night as much as tolerable (4) Metabolic alkalosis: 2nd to diuretics and steroids. complicated by resp alkalosis due to rapid shallow breathing. Co2 38. Plan: Order ABG to reevaluate CO2 levls continue bipap at night (5) Acute GI bleeding: Resolved. 4 units of RBC were given. Hg= 9.8 Ferritin levels low at 28. Plan: continue to hold Xeralto for Afid Give Iron sucrose IV Monitor with CBC (6) Headache: Frontal headaches. Plan: tylonol 325 Q4h PRN Admission and Anticipated Discharge Date Admission Date: February 02, 2020 Subjective Mr Anderson says he feels better today. He does not have chest pain or SOB at rest. He feels less swollen. Coughing a little bit with some sputum. Was able to get up and walk to the bathroom. Was a little SOB doing that. He complains of not being able to sleep well at night. Keeps waking up. Cannot stay on bipap more than 3 hours at night, as apposed to using his at home throughout the whole night, as this one keep "leaking air". Also complains of some headaches in the frontal area of the head. Denies palpations, fevers, chills, night sweats, calf pain. Review of Systems Constitutional: no fever, no chills and no sweats Respiratory: + cough, + chest congestion and + dyspnea on exertion; no dyspnea Cardiovascular: + chest pain with activity, + dyspnea on exertion and + edema; no chest pain at rest, no radiating jaw, neck or arm pain, no dyspnea, no dyspnea at rest, no palpitations, no syncope and no calf pain Gastrointestinal: no nausea, no vomiting and no pain with swallowing Psychiatric: no behavioral changes, no hopelessness and no change in appetite Physical Exam Constitutional: + ill appearing and + morbidly obese; no acute distress Respiratory: + labored breathing, + cough and + tachypneic Auscultation: + diminished lung sounds and + wheezes (diffuse bilateral ); no crackles, no rales and no rhonchi Cardiovascular: Rate/Rhythm: + tachycardic and + irregularly irregular Heart Sounds: no gallop, no murmur and no cardiac rub Vessels: no JVD and no carotid bruit Extremities: + pedal edema and + edema (3+ bilateral edema ); no calf tenderness Gastrointestinal (Abdomen): Inspection/Auscultation: abdomen normal to inspection, + abdomen distended, normal bowel sounds and + abdominal edema Percussion/Palpation: abdomen nontender, no guarding and abdomen not rigid Neurologic: moves all extremities and awake; not confused Speech / Cognition: + abnormal speech Psychiatric: Orientation: alert and oriented x 3 Apperance: appropriately dressed Eye Contact: good eye contact Speech: normal rate/rhythm/volume of speech Affect: euthymic affect Results & Data ([facility]) Vital Signs (Past 12 Hours) Vital Signs Temp Pulse Resp BP BP Pulse Ox 02/18/20 15:34 36.7 C 98 H 18 100/65 90 02/18/20 07:32 37 C 96 H 20 119/70 95
--- NOTE | 2020-02-18 20:43 | Hospitalist Progress Note ---
Date of Service February 18, 2020 Assessment & Plan (1) Acute on chronic respiratory failure with hypoxia and hypercapnia: Requires 4L NC O2 continuously at baseline. acute component 2nd to decompensated CHF & COPD exacerbation. both improving slowly. chronically - component of SHIRA/obesity hypoventilation as well as COPD. continue diuresis, steroids, nebs. (2) Acute on chronic diastolic (congestive) heart failure: Previous echo 2019 with preserved LV and RV function. Echo this admission with EF >70%, RV function preserved. Lasix 40mg IV x 1 again this am with diamox 500mg IV x 1 this afternoon. BMP in am. Cont beta surjit. Increase to 25mg BID. (3) Iron deficiency anemia: ferritin very low 20s venofer 200mg daily x 5 days repeat H/H am. (4) Chronic obstructive pulmonary disease: With exacerbation. Improving. Wean steroids -- prednisone 40mg daily starting tomorrow. Cont bronchodilators. Completed course of antibiotics. Pulmonary toilet. Diurese for decompensated CHF. (5) Anemia: Total 4 units PRBCs since admission. Suspected GI bleeding. Remains on PPI twice daily. IV iron today. H/H stable x 4 days - high risk of VTE, atrial thrombus with a.fib, etc. resume anticoagulation - use eliquis in ramya of xarelto. (6) Metabolic alkalosis: 2nd diuresis and acute/chronic resp acidosis. wear BIPAP at night/naps. BMP am. (7) SHIRA (obstructive sleep apnea): bipap at night 13/9 (8) Complicated UTI (urinary tract infection): 11-4 urine culture with > 100,000 enterococcus faecalis s/p 7 day course of amoxicillin (9) Afib: digoxin was supratherapeutic at presentation and he was given digibind. digoxin on hold since then. changed atenolol to metoprolol for beta selective rate control. increase to 25mg BID today. resume anticoagulation tomorrow if H/H stable. (10) Acute GI bleeding: Hemorrhagic disorder d/t extrinsic circulating anticoagulants. With resulting acute blood loss anemia. s/p 4 units PRBCs since admission. PPI twice daily. xarelto on hold. Previous significant work up in 2019 with endoscopes and capsule endoscopy was unrevealing. IV iron today. resume anticoagulation tomorrow cautiously but use eliquis. (11) XIOMY (acute kidney injury): 2nd ATN. Resolved. Patient did have dialysis on 2 occasions earlier in stay. None needed since. Dialysis catheter removed on 02/07. Making good urine with diuretics. BMP in am. (12) Elevated troponin: likely demand ischemia in the face of severe anemia earlier this stay. doubt ACS. (13) Digoxin toxicity: pt did have digibind + dialysis at presentation. resolved. 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 - Dr Luna, [facility] Cardiology cont BB (16) Candidiasis of mouth and esophagus: nystatin solution 5cc qid resolved (17) DVT prophylaxis: SCDs strongly consider restarting anticoagulation tomorrow appreciate palliative care assistance, POLST completion DNR status updated again tonight by phone Admission and Anticipated Discharge Date Admission Date: February 02, 2020 Subjective patient feels better today still sleeping very poorly, however only sleeping 2 hours, maybe 3 at most, then wakes up and takes off the BIPAP has same issues at home sleeps during the day with frequent falling asleep declined PT today - too tired minimal cough eating ok did ambulate and sit in chair today Review of Systems Constitutional: + fatigue; no fever and no chills Respiratory: + cough and + wheezing Cardiovascular: + edema; no chest pain and no orthopnea Gastrointestinal: + bloating; no abdominal pain, no nausea and no vomiting Physical Exam Constitutional: + morbidly obese and + frail appearing; no acute distress and no altered mental status ENMT: external ear and nose normal, oropharynx normal thrush improved Respiratory: Auscultation: + diminished lung sounds, + crackles (bases) and + wheezes (b/l - mild) Cardiovascular: Rate/Rhythm: regular rate and + irregularly irregular Heart Sounds: normal S1, normal S2 and + murmur (2/6 systolic LSB) Vessels: + JVD, posterior tibial pulses present and dorsalis pedis pulses present Extremities: + edema (2-3+ b/l legs ) Gastrointestinal (Abdomen): normal bowel sounds, soft, nontender, no hepatosplenomegaly Inspection/Auscultation: + abdomen distended (with edema/ascites ) Skin: + pallor Psychiatric: Orientation: alert and oriented x 3 Results & Data Results & Data ([facility]) Vital Signs (Past 12 Hours) Vital Signs Temp Pulse Resp BP Pulse Ox 02/18/20 15:34 36.7 C 98 H 18 100/65 90 Laboratory Results Laboratory Results - last 24 hr 02/18/20 02/18/20 06:59 06:59 Hgb 9.8 L Sodium 140 Potassium 4.5 Chloride 99 Carbon Dioxide 39 H Anion Gap 1.0 L BUN 28 H Creatinine 0.72 Est Cr Clr Drug Dosing 118.0 Est GFR ( Amer) 108.0 Est GFR (Non-Af Amer) 93.2 BUN/Creatinine Ratio 39.0 H Glucose 126 H Calcium 9.2 Ferritin 24.0 TSH 2.460 PG Care Time/CCT Total # of Minutes Spent Total Time Spent with Patient: Total time spent is greater than 50% in coordination of care (as documented) at patient's floor/unit and/or counseling patient: Coding Level of Care Code 95965 Subseq Hosp Care Lvl 3 Diagnoses Acute on chronic respiratory failure with hypoxia and hypercapnia J96.21; J96.22 Acute on chronic diastolic (congestive) heart failure I50.33 Iron deficiency anemia D50.9 Iron deficiency anemia type: unspecified iron deficiency Chronic obstructive pulmonary disease J44.9 COPD type: unspecified COPD Anemia D64.9 Anemia type: unspecified type Metabolic alkalosis E87.3 SHIRA (obstructive sleep apnea) G47.33 Complicated UTI (urinary tract infection) N39.0 Afib I48.91 Atrial fibrillation type: unspecified Acute GI bleeding K92.2 XIOMY (acute kidney injury) N17.9 Elevated troponin R77.8 Digoxin toxicity T46.0X1S Encounter type: sequela Injury intent: accidental or unintentional Morbid obesity with BMI of 45.0-49.9, adult E66.01; Z68.42 CAD (coronary artery disease) I25.10 Candidiasis of mouth and esophagus B37.81; B37.0 DVT prophylaxis Z29.9 (1) Digoxin toxicity Encounter type: sequela Injury intent: accidental or unintentional Qualified Code(s): T46.0X1S - Poisoning by cardiac-stimulant glycosides and drugs of similar action, accidental (unintentional), sequela (2) Anemia Anemia type: unspecified type Qualified Code(s): D64.9 - Anemia, unspecified (3) Afib Atrial fibrillation type: unspecified Qualified Code(s): I48.91 - Unspecified atrial fibrillation (4) Chronic obstructive pulmonary disease COPD type: unspecified COPD Qualified Code(s): J44.9 - Chronic obstructive pulmonary disease, unspecified (5) Iron deficiency anemia Iron deficiency anemia type: unspecified iron deficiency Qualified Code(s): D50.9 - Iron deficiency anemia, unspecified
[2020-02-18] MEDS: MONTELUKAST SODIUM 10 MG TABLET PO SCH (20:45)
[2020-02-18] MEDS ORDERED: traZODone HCL 50 MG TAB PO SCH (21:00)
[2020-02-19 08:01] LABS: Base Excess VBG 12.1 mEq/L; Oxygen Saturation VBG 77.3 %; pH VBG 7.34 (7.36-7.41)
[2020-02-19 08:20] LABS: Hematocrit (blood only) 34.7 % (42-52); Hemoglobin 9.8 g/dL (14.0-18.0); Mean Corpuscular Hemoglobin 25.3 pg (25-34); Mean Corpuscular Hgb Conc 28.2 g/dL (32-36); Mean Corpuscular Volume 89.7 fL (80-100); Mean Platelet Volume 10.2 fL (7.4-10.4); Platelet Count 381 K/uL (130-400); RDW Coefficient of Variation 19.3 % (11.5-14.5); RDW Standard Deviation 63.1 fL (36.4-46.3); Red Blood Count 3.87 M/uL (4.7-6.1); White Blood Count 9.62 K/uL (4.8-10.8)
[2020-02-19 08:29] LABS: BUN Creatinine Ratio 34.5 (10-20); Calcium 8.9 mg/dl (8.5-10.1); Creatinine Clr Calc Pharmacy 107.5 ml/min; Est GFR (Non-African American) 89.7; Potassium 4.2 mmol/L (3.5-5.1)
[2020-02-19] MEDS: UMECLIDINIUM/VILANTEROL 62.5/25MCG 7 PUFFS/INHALER INH SCH (08:34)
[2020-02-19] MEDS: FLUTICASONE FUROATE 100MCG 14 PUFFS/INHALER INH SCH (08:34)
[2020-02-19] MEDS: METOPROLOL TARTRATE 25 MG TAB PO SCH ×2 (08:35→21:35)
[2020-02-19] MEDS: guaiFENesin 600 MG TABCR PO SCH ×2 (08:35→21:36)
[2020-02-19] MEDS: predniSONE 20 MG TAB PO SCH (08:35)
[2020-02-19] MEDS: ATORVASTATIN 40 MG TAB PO SCH (08:36)
[2020-02-19] MEDS: MULTIVITAMIN TAB PO SCH (08:36)
[2020-02-19] MEDS: PANTOprazole 40 MG TAB PO SCH ×2 (08:36→21:36)
[2020-02-19] MEDS: NYSTATIN SUSP 500,000 U/5 ML UDC PO SCH ×4 (08:36→21:36)
[2020-02-19] MEDS: ACETAMINOPHEN 500 MG TAB PO SCH ×3 (08:37→21:36)
[2020-02-19] MEDS ORDERED: FUROSEMIDE 40 MG in SYRINGE 0 ML IV ONE (10:00)
--- NOTE | 2020-02-19 10:06 | Medical Student Progress Note ---
Date of Service February 19, 2020 Assessment & Plan (1) COPD exacerbation: lungs sounds much better to auscultation. No wheezing today. productive cough still there. Completed a course of ABX Plan: continue nebs continue steroid taper. continue prednisone 40 mg daily (2) Acute on chronic diastolic (congestive) heart failure: Still fluid overloaded. Weigh not obtained today yet? . Bilateral edema 3+. Plan: Continue Lasix. Stop acetazolamide? Get weight tomorrow am, standing scale if possible (3) Acute on chronic respiratory failure with hypoxia and hypercapnia: 2nd to COPD exacerbation, CHF with decompensation, Hx of SHIRA, O2 sat 95% on 4L/m NC. Co2=38 Plan: continue on NC 4 L/min, Bipap at night. try to stay on bipap at night as much as tolerable (4) Acute GI bleeding: Resolved. 4 units of RBC were given. Hg= 9.8 Iron sucrose IV was given yesterday due to low Iron. Plan: Give another dose of Iron sucrose IV Monitor with CBC, get retic count Since no sins of GI bleeding, will resume Xeralto for Afib (5) Headache: Frontal headaches. Likely due to lack of sleep Plan: tylonol 325 Q4h PRN (6) Metabolic acidosis: Due to res acidosis secondary to COPD exacerbation and hypercapnia, with metabolic decompenstation pH= 7.34 on ABG HCO3 40 PCO2 75 encourage longer use of bipap, may use dueing day naps as well. Discussed having drop off his unite from home. Continue NC at 4ml/min Admission and Anticipated Discharge Date Admission Date: February 02, 2020 Subjective Mr Anderson says that he feels better today. Some productive cough still present. No chest pain, SOB at rest. Able to walk around in room with some SOB and no chest pain. Feels less swollen. Some appetite, still eating. Headache still there. Still having trouble sleeping, tolerating bipap for a few hours at night. Nurse said she was removing raphael today. Had been there since admission. Says this will encourage him to get up and move around. Review of Systems Constitutional: no fever, no chills, no sweats and no fatigue Respiratory: + cough, + chest congestion and + dyspnea on exertion; no dyspnea Cardiovascular: + chest pain with activity, + dyspnea on exertion and + edema; no chest pain at rest, no radiating jaw, neck or arm pain, no dyspnea, no dyspnea at rest, no palpitations, no syncope and no calf pain Gastrointestinal: + bloating; no nausea, no vomiting, no constipation and no diarrhea/loose stools Psychiatric: no depression, no hopelessness, no anhedonia and no change in appetite Physical Exam Physical Exam: was sitting comfortably in chair when I walked in. Looks better. NAD Constitutional: + morbidly obese; no acute distress Respiratory: + labored breathing, + cough and + tachypneic Auscultation: lungs clear to auscultation bilaterally; no crackles, no rales, no rhonchi and no wheezes Cardiovascular: Rate/Rhythm: + tachycardic and + irregularly irregular Heart Sounds: no gallop, no murmur and no cardiac rub Vessels: no JVD and no carotid bruit Extremities: + pedal edema and + edema (3+ bilateral edema ); no calf tenderness Gastrointestinal (Abdomen): Inspection/Auscultation: abdomen normal to inspection, + abdomen distended, normal bowel sounds and + abdominal edema Percussion/Palpation: abdomen nontender, no guarding and abdomen not rigid Neurologic: moves all extremities and awake; not confused Speech / Cognition: + abnormal speech Psychiatric: Orientation: alert and oriented x 3 Apperance: appropriately dressed Eye Contact: good eye contact Speech: normal rate/rhythm/volume of speech Affect: euthymic affect Results & Data ([facility]) Vital Signs (Past 12 Hours) Vital Signs Temp Pulse Pulse Pulse Resp BP BP 02/19/20 07:25 36.9 C 98 H 18 103/66 02/18/20 23:22 36.5 C 89 20 123/66 02/18/20 23:03 93 H 26 H Pulse Ox 02/19/20 07:25 93 02/18/20 23:22 91 02/18/20 23:03 91
[2020-02-19] MEDS ORDERED: IRON SUCROSE 200 MG in 0.9 % SODIUM CHLORIDE 100 ML IV ONE (10:30)
[2020-02-19] MEDS: APIXABAN 5 MG TABLET PO SCH ×2 (11:38→21:36)
[2020-02-19] MEDS: NYSTATIN POWDER 15GM BTL EXT PRN (13:20)
--- NOTE | 2020-02-19 14:49 | Palliative Care Progress Note ---
Date of Service February 19, 2020 Assessment & Plan (1) Palliative care encounter: I talked with him about his goals. Plan has been for him to go to [facility] for rehab. He has been there in the past and is aware that this is a pretty rigorous schedule for PT. We discussed concern that he may not be up to doing that much therapy. He acknowledges this but feels like he wants to give it a try. He hopes to be able to be more mobile and independent at home. He understands that he may not reach this goal and then would want to go home. When discharged to home, his goal is to have hospice with symptom management and focus on remaining at home until his dying time. I did also speak to his on the phone. She is having a difficult time managing the house and property which is something that Rodrigo has always done. She feels that she would be able to care for him at home and has a lot of equipment already at home to help with this. They are considering purchasing a lift chair. She seems to be in agreement that ideally, he would go to [facility] first. (2) Dyspnea: Comfortable at rest. Increased with exertion. Opioid is available for air hunger as needed. Admission and Anticipated Discharge Date Admission Date: February 02, 2020 Subjective Sitting in chair, watching TV. Denies dyspnea or discomfort. He has been walking with PT and does get fatigued and short of breath. He tells me that he's getting better every day. Review of Systems Review of Systems: [place] Symptom Assessment Scale Dyspnea 1/3 Pain 0/3 Depression 0/3 Anxiety 0/3 Nausea 0/3 Drowsiness 0/3 Physical Exam Constitutional: no acute distress Respiratory: no labored breathing Musculoskeletal: Extremities: strength 5/5 throughout Skin: no rashes, warm and dry Psychiatric: A+Ox3, euthymic affect Genitourinary: Continent Results & Data ([facility]) Vital Signs (Past 12 Hours) Vital Signs Temp Pulse Pulse Resp BP Pulse Ox 02/19/20 10:13 88 18 96 02/19/20 07:25 98.4 F 98 H 18 103/66 93 PG Care Time/CCT Total # of Minutes Spent Total Time Spent with Patient: Total time spent is greater than 50% in coordination of care (as documented) at patient's floor/unit and/or counseling patient: 40 minutes total with more than 50% of time spent on discussing hospice, goals of care and support. Coding Level of Care Code 16850 Subseq Hosp Care Lvl 3 Diagnoses Palliative care encounter Z51.5 Dyspnea R06.00
[2020-02-19] MEDS ORDERED: SPIRONOLACTONE 12.5 MG TAB PO ONE (18:46)
--- NOTE | 2020-02-19 21:21 | Hospitalist Progress Note ---
Date of Service February 19, 2020 Assessment & Plan (1) Acute on chronic respiratory failure with hypoxia and hypercapnia: Requires 4L NC O2 continuously at baseline. acute component 2nd to decompensated CHF & COPD exacerbation. both improving slowly. this am with mild resp acidosis due to poor compliance with night-time BIPAP. I asked him to wear it for the remainder of this am. I also spoke with - asked her to drop off his home unit - likely to feel more comfortable using his own. chronically - component of SHIRA/obesity hypoventilation as well as COPD. continue diuresis, steroids, nebs. (2) Acute on chronic diastolic (congestive) heart failure: Previous echo 2018 with preserved LV and RV function. Echo this admission with EF >70%, RV function preserved. Lasix 40mg IV x 1 again this am and will also start aldactone 12.5mg daily. BMP in am. Cont beta surjit. (3) Iron deficiency anemia: ferritin very low 20s. venofer 200mg x 1 again today; consider tomorrow as well. repeat H/H am. (4) Chronic obstructive pulmonary disease: With exacerbation. Improving. Cont prednisone 40mg daily - no wean today. Cont bronchodilators. Completed course of antibiotics. Pulmonary toilet. Diurese for decompensated CHF. (5) Anemia: Total 4 units PRBCs since admission. Suspected GI bleeding. Remains on PPI twice daily. IV iron again today. H/H stable x 5 days - high risk of VTE, atrial thrombus with a.fib, etc. Thus, cont anticoagulation with eliquis in ramya of xarelto. (6) Metabolic alkalosis: 2nd diuresis and acute/chronic resp acidosis. wear BIPAP at night/naps. BMP am. (7) SHIRA (obstructive sleep apnea): bipap at night 12/12 asked to bring home unit (8) Complicated UTI (urinary tract infection): 11-4 urine culture with > 100,000 enterococcus faecalis s/p 7 day course of amoxicillin (9) Afib: digoxin was supratherapeutic at presentation and he was given digibind. digoxin on hold since then. changed atenolol to metoprolol for beta selective rate control. improved on metoprolol 25mg BID. eliquis BID. (10) Acute GI bleeding: Hemorrhagic disorder d/t extrinsic circulating anticoagulants. With resulting acute blood loss anemia. s/p 4 units PRBCs since admission. PPI twice daily. Previous significant work up in 2019 with endoscopes and capsule endoscopy was unrevealing. IV iron today. resumed anticoagulation cautiously with eliquis. (11) XIOMY (acute kidney injury): 2nd ATN. Resolved. Patient did have dialysis on 2 occasions earlier in stay. None needed since. Dialysis catheter removed on 02/07. Making good urine with diuretics. BMP in am. (12) Elevated troponin: likely demand ischemia in the face of severe anemia earlier this stay. doubt ACS. (13) Digoxin toxicity: pt did have digibind + dialysis at presentation. resolved. 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 he does indeed want to walk and work with them - he was simply tired yesterday. despite trazodone overnight he still woke up early in the night and took BIPAP off. remained awake remainder of night. breathing somewhat better than previous. no cough. eating fine. no other new complaints. tolerated IV Fe this am. Review of Systems Constitutional: no fever and no chills Ear, Nose, Mouth, Throat: no loss of taste/smell Respiratory: + dyspnea on exertion Cardiovascular: + edema; no dyspnea at rest, no orthopnea and no paroxysmal nocturnal dyspnea Gastrointestinal: + bloating; no abdominal pain Physical Exam Constitutional: + morbidly obese and + frail appearing; no acute distress and no altered mental status ENMT: external ear and nose normal, oropharynx normal Respiratory: Auscultation: + diminished lung sounds, + crackles (bases) and + wheezes (b/l - minimal ) Cardiovascular: Rate/Rhythm: regular rate and + irregularly irregular Heart Sounds: normal S1, normal S2 and + murmur (2/6 systolic LSB) Vessels: + JVD, posterior tibial pulses present and dorsalis pedis pulses present Extremities: + edema (2-3+ b/l legs ) Gastrointestinal (Abdomen): normal bowel sounds, soft, nontender, no hepatosplenomegaly Inspection/Auscultation: + abdomen distended (with edema/ascites ) Psychiatric: Orientation: alert and oriented x 3 Results & Data Results & Data ([facility]) Vital Signs (Past 12 Hours) Vital Signs Temp Pulse Pulse Resp BP Pulse Ox 02/19/20 15:32 36.9 C 92 H 18 97/65 L 91 02/19/20 10:13 88 18 96 Laboratory Results Laboratory Results - last 24 hr 02/19/20 02/19/20 02/19/20 07:42 07:42 07:42 WBC 9.62 RBC 3.87 L Hgb 9.8 L Hct 34.7 L MCV 89.7 MCH 25.3 MCHC 28.2 L RDW Std Deviation 63.1 H RDW Coeff of Ezekiel 19.3 H Plt Count 381 MPV 10.2 VBG pH VBG pCO2 VBG pO2 VBG HCO3 VBG O2 Saturation VBG Base Excess Barometric Pressure Sodium 141 Potassium 4.2 Chloride 100 Carbon Dioxide 39 H Anion Gap 2.0 L BUN 27 H Creatinine 0.79 Est Cr Clr Drug Dosing 107.5 Est GFR ( Amer) 104.0 Est GFR (Non-Af Amer) 89.7 BUN/Creatinine Ratio 34.5 H Glucose 77 Calcium 8.9 Ammonia 29.2 Specimen Hemolysis 02/19/20 07:42 WBC RBC Hgb Hct MCV MCH MCHC RDW Std Deviation RDW Coeff of Ezekiel Plt Count MPV VBG pH 7.34 L VBG pCO2 75 H VBG pO2 46 VBG HCO3 40 VBG O2 Saturation 77.3 VBG Base Excess 12.1 Barometric Pressure 741.8 Sodium Potassium Chloride Carbon Dioxide Anion Gap BUN Creatinine Est Cr Clr Drug Dosing Est GFR ( Amer) Est GFR (Non-Af Amer) BUN/Creatinine Ratio Glucose Calcium Ammonia Specimen Hemolysis PG Care Time/CCT Total # of Minutes Spent Total Time Spent with Patient: Total time spent is greater than 50% in coordination of care (as documented) at patient's floor/unit and/or counseling patient: Coding Level of Care Code 00335 Subseq Hosp Care Lvl 3 Diagnoses Acute on chronic respiratory failure with hypoxia and hypercapnia J96.21; J96.22 Acute on chronic diastolic (congestive) heart failure I50.33 Iron deficiency anemia D50.9 Iron deficiency anemia type: unspecified iron deficiency Chronic obstructive pulmonary disease J44.9 COPD type: unspecified COPD Anemia D64.9 Anemia type: unspecified type Metabolic alkalosis E87.3 SHIRA (obstructive sleep apnea) G47.33 Complicated UTI (urinary tract infection) N39.0 Afib I48.91 Atrial fibrillation type: unspecified Acute GI bleeding K92.2 XIOMY (acute kidney injury) N17.9 Elevated troponin R77.8 Digoxin toxicity T46.0X1S Encounter type: sequela Injury intent: accidental or unintentional Morbid obesity with BMI of 45.0-49.9, adult E66.01; Z68.42 CAD (coronary artery disease) I25.10 Candidiasis of mouth and esophagus B37.81; B37.0 DVT prophylaxis Z29.9 (1) Digoxin toxicity Encounter type: sequela Injury intent: accidental or unintentional Qualified Code(s): T46.0X1S - Poisoning by cardiac-stimulant glycosides and drugs of similar action, accidental (unintentional), sequela (2) Anemia Anemia type: unspecified type Qualified Code(s): D64.9 - Anemia, unspecified (3) Afib Atrial fibrillation type: unspecified Qualified Code(s): I48.91 - Unspecified atrial fibrillation (4) Iron deficiency anemia Iron deficiency anemia type: unspecified iron deficiency Qualified Code(s): D50.9 - Iron deficiency anemia, unspecified (5) Chronic obstructive pulmonary disease COPD type: unspecified COPD Qualified Code(s): J44.9 - Chronic obstructive pulmonary disease, unspecified
[2020-02-19] MEDS: MONTELUKAST SODIUM 10 MG TABLET PO SCH (21:36)
[2020-02-19] MEDS: traZODone HCL 50 MG TAB PO SCH (21:44)
[2020-02-20 07:50] LABS: Hematocrit (blood only) 35.1 % (42-52); Hemoglobin 9.9 g/dL (14.0-18.0)
[2020-02-20 08:15] LABS: BUN Creatinine Ratio 30.2 (10-20); Calcium 8.9 mg/dl (8.5-10.1); Creatinine Clr Calc Pharmacy 115.1 ml/min; Est GFR (African American) 106.8; Est GFR (Non-African American) 92.2; Potassium 3.7 mmol/L (3.5-5.1)
[2020-02-20] MEDS: ATORVASTATIN 40 MG TAB PO SCH (08:47)
[2020-02-20] MEDS: PANTOprazole 40 MG TAB PO SCH ×2 (08:47→20:44)
[2020-02-20] MEDS: guaiFENesin 600 MG TABCR PO SCH ×2 (08:47→20:44)
[2020-02-20] MEDS: NYSTATIN SUSP 500,000 U/5 ML UDC PO SCH ×4 (08:47→20:46)
[2020-02-20] MEDS: FLUTICASONE FUROATE 100MCG 14 PUFFS/INHALER INH SCH (08:47)
[2020-02-20] MEDS: METOPROLOL TARTRATE 25 MG TAB PO SCH ×2 (08:47→20:45)
[2020-02-20] MEDS: UMECLIDINIUM/VILANTEROL 62.5/25MCG 7 PUFFS/INHALER INH SCH (08:47)
[2020-02-20] MEDS: MULTIVITAMIN TAB PO SCH (08:48)
[2020-02-20] MEDS: APIXABAN 5 MG TABLET PO SCH ×2 (08:48→20:46)
[2020-02-20] MEDS: ACETAMINOPHEN 500 MG TAB PO SCH ×3 (08:48→20:45)
[2020-02-20] MEDS: predniSONE 20 MG TAB PO SCH (08:48)
[2020-02-20] MEDS ORDERED: SPIRONOLACTONE 12.5 MG TAB PO SCH (10:00)
[2020-02-20] MEDS ORDERED: FUROSEMIDE 40 MG in SYRINGE 0 ML IV ONE (10:00)
[2020-02-20] MEDS ORDERED: IRON SUCROSE 200 MG in 0.9 % SODIUM CHLORIDE 100 ML IV ONE (10:00)
[2020-02-20] MEDS: traZODone HCL 50 MG TAB PO SCH (20:45)
[2020-02-20] MEDS: MONTELUKAST SODIUM 10 MG TABLET PO SCH (20:45)
--- NOTE | 2020-02-20 21:02 | Hospitalist Progress Note ---
Date of Service February 20, 2020 Assessment & Plan (1) Acute on chronic respiratory failure with hypoxia and hypercapnia: Requires 3-4L NC O2 continuously at baseline. acute component 2nd to decompensated CHF & COPD exacerbation. both improving slowly. chronically - component of SHIRA/obesity hypoventilation as well as COPD. acute component improving with diuresis, steroids, nebs. no wean on steroids today- 40mg prednisone today, then again tomorrow, then wean to 30mg after that. additional dose of lasix today. increase aldactone to 25mg daily. (2) Acute on chronic diastolic (congestive) heart failure: IMPROVING. Previous echo 2018 with preserved LV and RV function. Echo this admission with EF >70%, RV function preserved. Lasix 40mg IV x 1 again this am and will also increase his aldactone to 25mg daily. BMP in am. Cont beta surjit - should convert metoprolol to metoprolol xl before d/c. (3) Iron deficiency anemia: ferritin very low 20s. venofer 200mg x 1 again today; consider tomorrow as well. repeat H/H am. today is 3rd dose of IV venofer. could do up to 5 days while hospitalized. (4) Chronic obstructive pulmonary disease: With exacerbation. Improving. Cont prednisone 40mg daily - no wean today. Would do 40mg on 02/20, then wean to 30mg on 02/21. wean every 2-3 days. Cont bronchodilators. Completed course of antibiotics. Pulmonary toilet. Diurese for decompensated CHF. (5) Anemia: Total 4 units PRBCs since admission. Suspected GI bleeding. Remains on PPI twice daily. IV iron again today. see above. H/H stable x 5 days - high risk of VTE, atrial thrombus with a.fib, etc. Thus, cont anticoagulation with eliquis in ramya of xarelto. (6) Metabolic alkalosis: 2nd diuresis and acute/chronic resp acidosis. wear BIPAP at night/naps - this will help. BMP am. (7) SHIRA (obstructive sleep apnea): bipap at night 12/12 asked to bring home unit and she dropped this off today - staff know to use home unit (8) Complicated UTI (urinary tract infection): 11-4 urine culture with > 100,000 enterococcus faecalis s/p 7 day course of amoxicillin (9) Afib: digoxin was supratherapeutic at presentation and he was given digibind. digoxin on hold since then. changed atenolol to metoprolol for beta selective rate control. improved on metoprolol 25mg BID. eliquis BID. (10) Acute GI bleeding: Hemorrhagic disorder d/t extrinsic circulating anticoagulants. With resulting acute blood loss anemia. s/p 4 units PRBCs since admission. PPI twice daily. Previous significant work up in 2019 with endoscopes and capsule endoscopy was unrevealing. IV iron today. resumed anticoagulation cautiously with eliquis. (11) XIOMY (acute kidney injury): 2nd ATN. Resolved. Patient did have dialysis on 2 occasions earlier in stay. None needed since. Dialysis catheter removed earlier this stay. (12) Elevated troponin: likely demand ischemia in the face of severe anemia earlier this stay. doubt ACS. (13) Digoxin toxicity: pt did have digibind + dialysis at presentation. resolved. 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 but refusing home with HH or hospice? slowly progressing with CHF/COPD Admission and Anticipated Discharge Date Admission Date: February 02, 2020 Subjective patient sitting in chair during my visit says this is the best he has felt in some time he said "I think the sleeping pill worked" he slept good until about 4-5am this am - much better than usual kept BIPAP on multiple times yesterday, and then again overnight no cough no dyspnea at rest -- just w/ exertion eating well Review of Systems Constitutional: no fever, no chills, no fatigue and no anorexia Respiratory: + cough and + wheezing; no sputum production Cardiovascular: + edema; no chest pain Gastrointestinal: no abdominal pain, no nausea and no vomiting Physical Exam Constitutional: + morbidly obese; no acute distress and no altered mental status sitting in chair, best he has looked all week ENMT: external ear and nose normal, oropharynx normal Respiratory: Auscultation: + diminished lung sounds, + crackles (bases) and + wheezes (b/l - minimal ) Cardiovascular: Rate/Rhythm: regular rate and + irregularly irregular Heart Sounds: normal S1, normal S2 and + murmur (2/6 systolic LSB) Vessels: + JVD, posterior tibial pulses present and dorsalis pedis pulses present Extremities: + edema (2+ b/l legs -- firm & hard) Gastrointestinal (Abdomen): normal bowel sounds, soft, nontender, no hepatosplenomegaly Inspection/Auscultation: + abdomen distended (with edema/ascites ) Skin: + pallor Psychiatric: Orientation: alert and oriented x 3 Results & Data Results & Data ([facility]) Vital Signs (Past 12 Hours) Vital Signs Temp Pulse Resp BP Pulse Ox 02/20/20 15:18 36.6 C 100 H 16 105/68 91 02/20/20 12:14 36.6 C 88 16 104/72 92 02/20/20 10:32 36.6 C 92 H 16 94/59 L 95 Laboratory Results Laboratory Results - last 24 hr 02/20/20 02/20/20 07:25 07:25 Hgb 9.9 L Hct 35.1 L Sodium 142 Potassium 3.7 Chloride 101 Carbon Dioxide 40 H Anion Gap 1.0 L BUN 22 H Creatinine 0.74 Est Cr Clr Drug Dosing 115.1 Est GFR ( Amer) 106.8 Est GFR (Non-Af Amer) 92.2 BUN/Creatinine Ratio 30.2 H Glucose 83 Calcium 8.9 PG Care Time/CCT Total # of Minutes Spent Total Time Spent with Patient: Total time spent is greater than 50% in coordination of care (as documented) at patient's floor/unit and/or counseling patient: Coding Level of Care Code 61178 Subseq Hosp Care Lvl 3 Diagnoses Acute on chronic respiratory failure with hypoxia and hypercapnia J96.21; J96.22 Acute on chronic diastolic (congestive) heart failure I50.33 Iron deficiency anemia D50.9 Iron deficiency anemia type: unspecified iron deficiency Chronic obstructive pulmonary disease J44.9 COPD type: unspecified COPD Anemia D64.9 Anemia type: unspecified type Metabolic alkalosis E87.3 SHIRA (obstructive sleep apnea) G47.33 Complicated UTI (urinary tract infection) N39.0 Afib I48.91 Atrial fibrillation type: unspecified Acute GI bleeding K92.2 XIOMY (acute kidney injury) N17.9 Elevated troponin R77.8 Digoxin toxicity T46.0X1S Encounter type: sequela Injury intent: accidental or unintentional Morbid obesity with BMI of 45.0-49.9, adult E66.01; Z68.42 CAD (coronary artery disease) I25.10 Candidiasis of mouth and esophagus B37.81; B37.0 DVT prophylaxis Z29.9 (1) Digoxin toxicity Encounter type: sequela Injury intent: accidental or unintentional Qualified Code(s): T46.0X1S - Poisoning by cardiac-stimulant glycosides and drugs of similar action, accidental (unintentional), sequela (2) Anemia Anemia type: unspecified type Qualified Code(s): D64.9 - Anemia, unspecified (3) Afib Atrial fibrillation type: unspecified Qualified Code(s): I48.91 - Unspecified atrial fibrillation (4) Iron deficiency anemia Iron deficiency anemia type: unspecified iron deficiency Qualified Code(s): D50.9 - Iron deficiency anemia, unspecified (5) Chronic obstructive pulmonary disease COPD type: unspecified COPD Qualified Code(s): J44.9 - Chronic obstructive pulmonary disease, unspecified
[2020-02-21 06:41] LABS: BUN Creatinine Ratio 32.4 (10-20); Calcium 8.7 mg/dl (8.5-10.1); Creatinine Clr Calc Pharmacy 134.6 ml/min; Est GFR (African American) 114.1; Est GFR (Non-African American) 98.5; Potassium 3.8 mmol/L (3.5-5.1)
[2020-02-21] MEDS: UMECLIDINIUM/VILANTEROL 62.5/25MCG 7 PUFFS/INHALER INH SCH (09:17)
[2020-02-21] MEDS: FLUTICASONE FUROATE 100MCG 14 PUFFS/INHALER INH SCH (09:17)
[2020-02-21] MEDS: APIXABAN 5 MG TABLET PO SCH ×2 (09:17→21:23)
[2020-02-21] MEDS: guaiFENesin 600 MG TABCR PO SCH ×2 (09:17→21:25)
[2020-02-21] MEDS: NYSTATIN SUSP 500,000 U/5 ML UDC PO SCH ×4 (09:17→21:32)
[2020-02-21] MEDS: predniSONE 20 MG TAB PO SCH (09:18)
[2020-02-21] MEDS: METOPROLOL TARTRATE 25 MG TAB PO SCH ×2 (09:18→21:27)
[2020-02-21] MEDS: MULTIVITAMIN TAB PO SCH (09:18)
[2020-02-21] MEDS: ATORVASTATIN 40 MG TAB PO SCH (09:18)
[2020-02-21] MEDS: PANTOprazole 40 MG TAB PO SCH ×2 (09:19→21:26)
[2020-02-21] MEDS: ACETAMINOPHEN 500 MG TAB PO SCH ×3 (09:19→21:27)
[2020-02-21] MEDS: SPIRONOLACTONE 25 MG TAB PO SCH (09:23)
[2020-02-21] MEDS ORDERED: MAGNESIUM HYDROXIDE SUSP 30 ML UDC PO STA (11:43)
[2020-02-21] MEDS ORDERED: IRON SUCROSE 200 MG in 0.9 % SODIUM CHLORIDE 100 ML IV ONE (13:00)
[2020-02-21] MEDS: SENNA 8.6 MG TAB PO SCH (13:27)
--- NOTE | 2020-02-21 14:42 | Hospitalist Progress Note ---
Date of Service February 21, 2020 Assessment & Plan (1) Acute on chronic respiratory failure with hypoxia and hypercapnia: Requires 3-4L NC O2 continuously at baseline. acute component 2nd to decompensated CHF & COPD exacerbation. both improving slowly. chronically - component of SHIRA/obesity hypoventilation as well as COPD. acute component improving with diuresis, steroids, nebs. no wean on steroids today- 40mg prednisone today, then wean to 30mg after that. Edema improved s/p additional dose of lasix 02/19 and increased aldactone to 25mg daily. (2) Acute on chronic diastolic (congestive) heart failure: IMPROVING. Previous echo 2018 with preserved LV and RV function. Echo this admission with EF >70%, RV function preserved. Edema improved s/p additional dose of lasix 02/19 and increased aldactone to 25mg daily. BMP in am. Cont beta surjit - should convert metoprolol to metoprolol xl before d/c. (3) Iron deficiency anemia: ferritin very low 20s. venofer 200mg IV started 02/17, last dose will be 02/21 monitor H/H (4) Chronic obstructive pulmonary disease: With exacerbation. Improving. Cont prednisone 40mg taper Would do 40mg on 02/20, then wean to 30mg on 02/21. wean every 2-3 days. Cont bronchodilators. Completed course of antibiotics. Pulmonary toilet. Diurese for decompensated CHF. (5) Anemia: Total 4 units PRBCs since admission. Suspected GI bleeding. Remains on PPI twice daily. IV iron again today. see above. H/H stable x 5 days - high risk of VTE, atrial thrombus with a.fib, etc. Thus, cont anticoagulation with eliquis in ramya of xarelto. (6) Metabolic alkalosis: 2nd diuresis and acute/chronic resp acidosis. wear BIPAP at night/naps - this will help. BMP am. (7) SHIRA (obstructive sleep apnea): bipap at night 12/12 pt has home unit now (8) Complicated UTI (urinary tract infection): 11-4 urine culture with > 100,000 enterococcus faecalis s/p 7 day course of amoxicillin (9) Afib: digoxin was supratherapeutic at presentation and he was given digibind. digoxin on hold since then. changed atenolol to metoprolol for beta selective rate control. improved on metoprolol 25mg BID. eliquis BID. (10) Acute GI bleeding: Hemorrhagic disorder d/t extrinsic circulating anticoagulants. With resulting acute blood loss anemia. s/p 4 units PRBCs since admission. PPI twice daily. Previous significant work up in 2019 with endoscopes and capsule endoscopy was unrevealing. IV iron today. resumed anticoagulation cautiously with eliquis. (11) XIOMY (acute kidney injury): 2nd ATN. Resolved. Patient did have dialysis on 2 occasions earlier in stay. None needed since. Dialysis catheter removed earlier this stay. (12) Elevated troponin: likely demand ischemia in the face of severe anemia earlier this stay. doubt ACS. (13) Digoxin toxicity: pt did have digibind + dialysis at presentation. resolved. 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 [place] Cardiology cont BB Dr Luna extensively updated during admission (16) Candidiasis of mouth and esophagus: nystatin solution 5cc qid, started on 02/17 and will need 10-14 days of tx resolved (17) DVT prophylaxis: eliquis 5mg BID appreciate palliative care assistance, POLST completion DNR status updated again tonight by phone disposition still uncertain if he makes improvement rehab is not out of the question if no improvement - SNF? but refusing home with HH or hospice? Currently planning for rehab, accepted at [facility] slowly progressing with CHF/COPD Admission and Anticipated Discharge Date Admission Date: February 02, 2020 Subjective Pt states he felt better today and was able to walk around the nursing unit. Pt denies fever, SOB, chest pain, abd pain, n/v, LE pain or swelling. Tolerating PO without issue. Pt denies michi constipation, but apprarently reported to nursing that he feels like his stool is "stuck" at time and would like a stool softener. Review of Systems Review of Systems: Pertinent positives and negatives reviewed in HPI--all others negative Physical Exam Constitutional: WD/WN, vitals as above Eyes: normal visual martínez by confrontation and + anicteric sclerae Neck: normal visual inspection and trachea midline Respiratory: normal respiratory effort, lungs clear to auscultation Auscultation: no crackles and no wheezes Cardiovascular: Rate/Rhythm: regular rate and regular rhythm Extremities: + edema (trace) Gastrointestinal (Abdomen): Inspection/Auscultation: abdomen not distended Percussion/Palpation: abdomen soft; abdomen nontender Musculoskeletal: Head/Neck/Chest: normocephalic and head atraumatic peripheral pulses intact Skin: no rashes, warm and dry Neurologic: awake; not confused Speech / Cognition: normal speech Psychiatric: A+Ox3, euthymic affect Results & Data Results & Data ([facility]) Vital Signs (Past 12 Hours) Vital Signs Temp Pulse Pulse Resp BP Pulse Ox 02/21/20 13:38 95 H 16 99/68 L 92 02/21/20 07:25 36.5 C 91 H 16 103/67 95 PG Care Time/CCT Total # of Minutes Spent Total Time Spent with Patient: Total time spent is greater than 50% in coordination of care (as documented) at patient's floor/unit and/or counseling patient: Coding Level of Care Code 15384 Subseq Hosp Care Lvl 3 Diagnoses Acute on chronic respiratory failure with hypoxia and hypercapnia J96.21; J96.22 Acute on chronic diastolic (congestive) heart failure I50.33 Iron deficiency anemia D50.9 Iron deficiency anemia type: unspecified iron deficiency Chronic obstructive pulmonary disease J44.9 COPD type: unspecified COPD Anemia D64.9 Anemia type: unspecified type Metabolic alkalosis E87.3 SHIRA (obstructive sleep apnea) G47.33 Complicated UTI (urinary tract infection) N39.0 Afib I48.91 Atrial fibrillation type: unspecified Acute GI bleeding K92.2 XIOMY (acute kidney injury) N17.9 Elevated troponin R77.8 Digoxin toxicity T46.0X1S Encounter type: sequela Injury intent: accidental or unintentional Morbid obesity with BMI of 45.0-49.9, adult E66.01; Z68.42 CAD (coronary artery disease) I25.10 Candidiasis of mouth and esophagus B37.81; B37.0 DVT prophylaxis Z29.9 (1) Iron deficiency anemia Iron deficiency anemia type: unspecified iron deficiency Qualified Code(s): D50.9 - Iron deficiency anemia, unspecified (2) Chronic obstructive pulmonary disease COPD type: unspecified COPD Qualified Code(s): J44.9 - Chronic obstructive pulmonary disease, unspecified (3) Anemia Anemia type: unspecified type Qualified Code(s): D64.9 - Anemia, unspecified (4) Afib Atrial fibrillation type: unspecified Qualified Code(s): I48.91 - Unspecified atrial fibrillation (5) Digoxin toxicity Encounter type: sequela Injury intent: accidental or unintentional Qualified Code(s): T46.0X1S - Poisoning by cardiac-stimulant glycosides and drugs of similar action, accidental (unintentional), sequela
[2020-02-21] MEDS: traZODone HCL 50 MG TAB PO SCH (21:23)
[2020-02-21] MEDS: MONTELUKAST SODIUM 10 MG TABLET PO SCH (21:27)
[2020-02-22 06:18] LABS: Basophils # (auto) 0.01 K/uL (0-0.2); Basophils % (auto) 0.1 %; Eosinophils # (auto) 0.09 K/uL (0-0.5); Hematocrit (blood only) 35.1 % (42-52); Hemoglobin 9.9 g/dL (14.0-18.0); Immature Granulocytes # (auto) 0.08 K/uL (0.00-0.02); Immature Granulocytes % (auto) 0.8 %; Lymphocytes # (auto) 1.02 K/uL (1.2-3.4); Lymphocytes % (auto) 10.8 %; Mean Corpuscular Hemoglobin 25.1 pg (25-34); Mean Corpuscular Hgb Conc 28.2 g/dL (32-36); Mean Corpuscular Volume 89.1 fL (80-100); Mean Platelet Volume 10.7 fL (7.4-10.4); Monocytes # (auto) 0.99 K/uL (0.11-0.59); Monocytes % (auto) 10.5 %; Neutrophils # (auto) 7.24 K/uL (1.4-6.5); Neutrophils % (auto) 76.8 %; Platelet Count 438 K/uL (130-400); RDW Coefficient of Variation 19.7 % (11.5-14.5); RDW Standard Deviation 63.2 fL (36.4-46.3); Red Blood Count 3.94 M/uL (4.7-6.1); White Blood Count 9.43 K/uL (4.8-10.8)
[2020-02-22] MEDS: SPIRONOLACTONE 25 MG TAB PO SCH (08:41)
[2020-02-22] MEDS: PANTOprazole 40 MG TAB PO SCH ×2 (08:41→20:30)
[2020-02-22] MEDS: SENNA 8.6 MG TAB PO SCH (08:41)
[2020-02-22] MEDS: guaiFENesin 600 MG TABCR PO SCH ×2 (08:41→20:29)
[2020-02-22] MEDS: ATORVASTATIN 40 MG TAB PO SCH (08:41)
[2020-02-22] MEDS: APIXABAN 5 MG TABLET PO SCH ×2 (08:41→20:29)
[2020-02-22] MEDS: MULTIVITAMIN TAB PO SCH (08:41)
[2020-02-22] MEDS: predniSONE 10 MG TABLET PO SCH (08:42)
[2020-02-22] MEDS: ACETAMINOPHEN 500 MG TAB PO SCH ×3 (08:42→20:30)
[2020-02-22] MEDS: FLUTICASONE FUROATE 100MCG 14 PUFFS/INHALER INH SCH (08:43)
[2020-02-22] MEDS: NYSTATIN SUSP 500,000 U/5 ML UDC PO SCH ×4 (08:43→20:30)
[2020-02-22] MEDS: UMECLIDINIUM/VILANTEROL 62.5/25MCG 7 PUFFS/INHALER INH SCH (08:43)
[2020-02-22] MEDS ORDERED: IRON SUCROSE 200 MG in 0.9 % SODIUM CHLORIDE 100 ML IV ONE (09:00)
[2020-02-22] MEDS: METOPROLOL SUCC 50MG EXT REL TAB PO SCH (09:45)
--- NOTE | 2020-02-22 15:45 | Hospitalist Progress Note ---
Date of Service February 22, 2020 Assessment & Plan (1) Acute on chronic respiratory failure with hypoxia and hypercapnia: Requires 3-4L NC O2 continuously at baseline. acute component 2nd to decompensated CHF & COPD exacerbation. both improving slowly. chronically - component of SHIRA/obesity hypoventilation as well as COPD. acute component improving with diuresis, steroids, nebs. Wean to 30mg prednisone 02/21 Edema improved s/p additional dose of lasix 02/19 and increased aldactone to 25mg daily. (2) Acute on chronic diastolic (congestive) heart failure: IMPROVING. Previous echo 2018 with preserved LV and RV function. Echo this admission with EF >70%, RV function preserved. Edema improved s/p additional dose of lasix 02/19 and increased aldactone to 25mg daily. BMP in am. Cont beta sujrit - should convert metoprolol to metoprolol xl before d/c. (3) Iron deficiency anemia: ferritin very low 20s. venofer 200mg IV started 02/17, last dose 02/21 monitor H/H (4) Chronic obstructive pulmonary disease: With exacerbation. Improving. Cont prednisone taper Wean to 30mg on 02/21. wean every 2-3 days. Cont bronchodilators. Completed course of antibiotics. Pulmonary toilet. Diurese for decompensated CHF. (5) Anemia: Total 4 units PRBCs since admission. Suspected GI bleeding. Remains on PPI twice daily. IV iron again today. see above. H/H stable x 5 days - high risk of VTE, atrial thrombus with a.fib, etc. Thus, cont anticoagulation with eliquis in ramya of xarelto. (6) Metabolic alkalosis: 2nd diuresis and acute/chronic resp acidosis. wear BIPAP at night/naps - this will help. BMP am. (7) SHIRA (obstructive sleep apnea): bipap at night 12/12 pt has home unit now (8) Complicated UTI (urinary tract infection): 11-4 urine culture with > 100,000 enterococcus faecalis s/p 7 day course of amoxicillin (9) Afib: digoxin was supratherapeutic at presentation and he was given digibind. digoxin on hold since then. changed atenolol to metoprolol for beta selective rate control. improved on metoprolol 25mg BID. eliquis BID. (10) Acute GI bleeding: Hemorrhagic disorder d/t extrinsic circulating anticoagulants. With resulting acute blood loss anemia. s/p 4 units PRBCs since admission. PPI twice daily. Previous significant work up in 2019 with endoscopes and capsule endoscopy was unrevealing. IV iron today. resumed anticoagulation cautiously with eliquis. (11) XIOMY (acute kidney injury): 2nd ATN. Resolved. Patient did have dialysis on 2 occasions earlier in stay. None needed since. Dialysis catheter removed earlier this stay. (12) Elevated troponin: likely demand ischemia in the face of severe anemia earlier this stay. doubt ACS. (13) Digoxin toxicity: pt did have digibind + dialysis at presentation. resolved. 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 but refusing home with HH or hospice? Currently planning for rehab, accepted at [facility] slowly progressing with CHF/COPD Pt requesting copies of d/c summary to Dr. Luna and Finn Garrison Admission and Anticipated Discharge Date Admission Date: February 02, 2020 Subjective Pt is OOB to chair. He has not had therapy yet today, so has not walked much. Nursing states he does well getting from the bed to the chair. Pt feels that he is not yet ready to go to rehab. "I want to be sure before I go there so that I don't end up right back here." Pt denies fever, SOB, chest pain, abd pain, n/v/c/d, LE pain. Ongoing LE swelling. Review of Systems Review of Systems: Pertinent positives and negatives reviewed in HPI--all others negative Physical Exam Constitutional: WD/WN, vitals as above Eyes: normal visual martínez by confrontation and + anicteric sclerae Neck: normal visual inspection and trachea midline Respiratory: normal respiratory effort, lungs clear to auscultation Auscultation: no crackles and no wheezes Cardiovascular: Rate/Rhythm: regular rate; + abnormal rhythm Extremities: + edema (trace pitting) Gastrointestinal (Abdomen): Inspection/Auscultation: abdomen not distended Percussion/Palpation: abdomen soft; abdomen nontender Musculoskeletal: Head/Neck/Chest: normocephalic and head atraumatic Skin: no rashes, warm and dry Neurologic: awake; not confused Speech / Cognition: normal speech Psychiatric: A+Ox3, euthymic affect Results & Data Results & Data ([facility]) Vital Signs (Past 12 Hours) Vital Signs Temp Pulse Pulse Resp BP Pulse Ox 02/22/20 15:22 36.8 C 102 H 16 105/73 94 02/22/20 07:48 36.8 C 96 H 16 115/75 96 PG Care Time/CCT Total # of Minutes Spent Total Time Spent with Patient: Total time spent is greater than 50% in coordination of care (as documented) at patient's floor/unit and/or counseling patient: Coding Level of Care Code 02732 Subseq Hosp Care Lvl 3 Diagnoses Acute on chronic respiratory failure with hypoxia and hypercapnia J96.21; J96.2 2 Acute on chronic diastolic (congestive) heart failure I50.33 Iron deficiency anemia D50.9 Iron deficiency anemia type: unspecified iron deficiency Chronic obstructive pulmonary disease J44.9 COPD type: unspecified COPD Anemia D64.9 Anemia type: unspecified type Metabolic alkalosis E87.3 SHIRA (obstructive sleep apnea) G47.33 Complicated UTI (urinary tract infection) N39.0 Afib I48.91 Atrial fibrillation type: unspecified Acute GI bleeding K92.2 XIOMY (acute kidney injury) N17.9 Elevated troponin R77.8 Digoxin toxicity T46.0X1S Encounter type: sequela Injury intent: accidental or unintentional Morbid obesity with BMI of 45.0-49.9, adult E66.01; Z68.42 CAD (coronary artery disease) I25.10 Candidiasis of mouth and esophagus B37.81; B37.0 DVT prophylaxis Z29.9 (1) Iron deficiency anemia Iron deficiency anemia type: unspecified iron deficiency Qualified Code(s): D50.9 - Iron deficiency anemia, unspecified (2) Chronic obstructive pulmonary disease COPD type: unspecified COPD Qualified Code(s): J44.9 - Chronic obstructive pulmonary disease, unspecified (3) Anemia Anemia type: unspecified type Qualified Code(s): D64.9 - Anemia, unspecified (4) Afib Atrial fibrillation type: unspecified Qualified Code(s): I48.91 - Unspecified atrial fibrillation (5) Digoxin toxicity Encounter type: sequela Injury intent: accidental or unintentional Qualified Code(s): T46.0X1S - Poisoning by cardiac-stimulant glycosides and drugs of similar action, accidental (unintentional), sequela
[2020-02-22] MEDS: traZODone HCL 50 MG TAB PO SCH (20:28)
[2020-02-22] MEDS: MONTELUKAST SODIUM 10 MG TABLET PO SCH (20:30)
[2020-02-23] MEDS: UMECLIDINIUM/VILANTEROL 62.5/25MCG 7 PUFFS/INHALER INH SCH (08:42)
[2020-02-23] MEDS: SPIRONOLACTONE 25 MG TAB PO SCH (08:42)
[2020-02-23] MEDS: APIXABAN 5 MG TABLET PO SCH (08:43)
[2020-02-23] MEDS: FLUTICASONE FUROATE 100MCG 14 PUFFS/INHALER INH SCH (08:43)
[2020-02-23] MEDS: NYSTATIN SUSP 500,000 U/5 ML UDC PO SCH ×2 (08:44→13:12)
[2020-02-23] MEDS: ATORVASTATIN 40 MG TAB PO SCH (08:44)
[2020-02-23] MEDS: guaiFENesin 600 MG TABCR PO SCH (08:44)
[2020-02-23] MEDS: MULTIVITAMIN TAB PO SCH (08:44)
[2020-02-23] MEDS: PANTOprazole 40 MG TAB PO SCH (08:45)
[2020-02-23] MEDS: predniSONE 10 MG TABLET PO SCH (08:45)
[2020-02-23] MEDS: METOPROLOL SUCC 50MG EXT REL TAB PO SCH (08:45)
[2020-02-23] MEDS: SENNA 8.6 MG TAB PO SCH (08:45)
[2020-02-23] MEDS: ACETAMINOPHEN 500 MG TAB PO SCH ×2 (08:46→13:11)
[2020-02-23 10:29] LABS: BUN Creatinine Ratio 20.2 (10-20); Calcium 8.4 mg/dl (8.5-10.1); Creatinine Clr Calc Pharmacy 107.3 ml/min; Est GFR (Non-African American) 89.7; Magnesium 2.1 mg/dl (1.8-2.4); Potassium 3.8 mmol/L (3.5-5.1)
[2020-02-23 10:34] LABS: Ferritin 481.3 ng/ml (8-388)
[2020-02-23] MEDS ORDERED: FUROSEMIDE 20 MG TAB PO ONE (12:00)
--- NOTE | 2020-02-23 13:23 | Discharge Summary ---
Date of Service date of admission - February 02, 2020 date of discharge - February 23, 2020 Admission HPI Per Admitting Provider This is a pleasant 74 yo male who has h/o atrial fib on Rivaroxaban, COPD with resulting chronic hypoxic respiratory failure, SHIRA, CAD, and HTN who presents t o the hospital with a 5 day history of having bright red blood in his stools. His is at bedside and reports that it was a large amount and splattered all over the toilet. He states he had an appointment with a provider on and was willing to wait it out, however as each day passed, his bleeding continued, and became more tired and weak. As he continued to feel worse, he finally called his provider and was told to go to the ER. Hemoglobin upon admission was 6.7. Principal Diagnosis 1. acute blood loss anemia 2nd to GI bleeding 2. acute/chronic respiratory failure with hypoxia and hypercarbia Discharge Exam Constitutional + morbidly obese; no acute distress and no altered mental status ENMT Mouth: + oropharynx abnormality (mild erythema of posterior palate - early thrush?) Respiratory Auscultation: + diminished lung sounds and + wheezes (b/l - minimal ); no crackles Cardiovascular Rate/Rhythm: regular rate and + irregularly irregular Heart Sounds: normal S1, normal S2 and + murmur (2/6 systolic LSB) Vessels: posterior tibial pulses present and dorsalis pedis pulses present; no JVD Extremities: + edema (1-2+ b/l legs ) Gastrointestinal (Abdomen) normal bowel sounds, soft, nontender, no hepatosplenomegaly Psychiatric Orientation: alert and oriented x 3 Discharge Data Allergies Allergy/AdvReac Type Severity Reaction Status Date / Time adhesive Allergy Mild TAPE-RASH Verified 02/02/20 13:08 oxycodone Allergy Mild RASH Verified 02/02/20 13:08 diltiazem Allergy Unknown Verified 02/02/20 13:08 Consultations Consult Lease Analyst Consult Nephrology Gastroenterology Consult Palliative Care Pulmonology PT, OT Ordered Studies 02/03/20 10:31 US point of care ultrasound Urgent 02/03/20 11:39 CT abd pelvis wo con Stat IMPRESSION: 1. Nonobstructing left nephrolithiasis. No ureteral calculi or obstructive uropathy. 2. Cardiomegaly with fluid overload manifested by left greater than right pleural effusions, small volume of abdominopelvic ascites and anasarca. 3. Hepatic steatosis. 4. Mild colonic diverticulosis. Echocardiogram: * EF >70% * hyperdynamic left ventricle * no regional wall motion abnormalities * mild LVH * no significant valvular abnormalities * normal RV function Temporary femoral dialysis catheter PRBCs x 4 units Hospital Course (1) Acute GI bleeding: Patient had acute blood loss anemia 2nd to acute GI bleeding in the setting of chronic xarelto use. Xarelto was held, and patient ultimately received 4 units of PRBCs. Following the PRBCs his H/H remained stable for the remainder of his stay. Discharge hemoglobin was 10.5. The patient was seen by [facility]. GI opted to defer on endoscopic evaluation given his fragile status early on in the hospital stay. Instead he was treated with PPI twice daily and simply watched carefully. Previous work up in 2019 for GI bleeding with endoscopes and capsule endoscopy failed to show a source for his bleeding. Patient was ultimately resumed on anticoagulation - eliquis was used in ramya of xarelto - and there was no overt bleeding moving forward. (2) Acute blood loss anemia: 2nd to GI bleeding. Source uncertain. Lowest Hb was 6.7 at time of admission. s/p 4 units PRBCs in total during the stay. Discharge hemoglobin was 10.5. (3) Digoxin toxicity: Patient's peak digoxin level was 3.3. The digoxin toxicity was in the setting of his acute GI bleeding, acute kidney injury, and hyperkalemia. Digibind was administered. Digoxin was discontinued for the remainder of the stay and not resumed at d ischarge. (4) XIOMY (acute kidney injury): 2nd ATN. Peak Cr was 3.5. This led to hyperkalemia with K level of 7.7. Patient required placement of temporary dialysis catheter and 2 dialysis sessions while in the ICU. He had spontaneous recovery of renal function, dialysis catheter was removed, and made normal amounts of urine for the remainder of his stay. Cr at discharge was 0.7. (5) Acute on chronic respiratory failure with hypoxia and hypercapnia: Requires 3-4L NC O2 continuously at baseline. Acute component 2nd to decompensated CHF & COPD exacerbation. Both improved albeit slowly. Chronic resp failure 2nd SHIRA/obesity hypoventilation as well as COPD. Acute component improved with steroids, diuresis, and nebs. (6) Acute on chronic diastolic (congestive) heart failure: IMPROVED with diuresis. Previous echo 2019 with preserved LV and RV function. Echo this admission with EF >70%, RV function preserved. Regimen at discharge - * metoprolol xl 50mg qam * metoprolol xl 25mg qhs * lasix 40mg BID * aldactone 25mg daily Discharge weight ~132 kg (7) Iron deficiency anemia: ferritin very low at 24. s/p multiple doses of venofer IV. ferritin improved to 481, and hemoglobin improved to 10.5 prior to discharge. (8) Chronic obstructive pulmonary disease: With exacerbation. Improved with slow prednisone wean. Cont prednisone for a few more days post-discharge. Cont bronchodilators. Completed course of antibiotics while hospitalized. Continue NC O2. (9) SHIRA (obstructive sleep apnea): bipap at night 12/12 (10) Complicated UTI (urinary tract infection): 11-4 urine culture with > 100,000 enterococcus faecalis s/p 7 day course of amoxicillin (11) Afib: digoxin was supratherapeutic at presentation and he was given digibind. digoxin discontinued thereafter. changed atenolol to metoprolol for beta selective rate control. dosing as above. eliquis BID used in ramya of xarelto. (12) Elevated troponin: likely demand ischemia in the face of severe anemia earlier in stay. doubt ACS. 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 Cardiology cont BB cont statin (15) Candidiasis of mouth and esophagus: nystatin solution 5cc qid resolved finish 7 days of such Total Time Total Time Spent Total Time Spent (In Minutes): 50 Total Time Includes: Examination of the Patient, Discharge Planning, Medication Reconciliation and Communication With Other Providers Discharge Plan Discharge Items Patient Disposition: Transfer Inpatient Rehab Fac Reason For Visit: GI BLEED Discharge Diagnosis: 1. GI bleeding - resolved 2. acute blood loss anemia due to #1 - s/p 4 units of red cells - discharge Hemoglobin 10.5 3. acute/chronic diastolic congestive heart failure 4. COPD exacerbation 5. chronic hypoxic respiratory failure on home O2 - 3/4 liters continuously 6. SHIRA (sleep apnea) on BIPAP at night 7. digoxin toxicity 8. acute renal failure - needed temporary dialysis - resolved; making good urine on own 9. 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 An appointment has been scheduled for you with the [facility] Heart [facility] within 7 days of discharge. Anticipate this visit to be 30-60 minutes long. Please expect a supervisor dry paste phone call from one of our nurses approximately 48 hours from discharge. They will also be placing an order for lab work to be completed 1-2 days prior to your heart failure follow up appointment. Please be sure to have this done so we can go over the results when you come in. Office Location The cardiology office building is located in front of the hospital at [address]. Bring the following with you to your follow-up doctor appointments: Please bring your daily weight log any discharge paperwork all of your medication bottles with you to this visit. ) Diet: Heart Healthy and Low Sodium (2gm) Fluids: 1800ml (7 cups) Addtl Attending Provider Instructions: 1. repeat CBC, BMP, and magnesium in 3 days, then weekly thereafter for stability. Results to ophthalmic medical technician. 2. see ALEXANDRA Chopra OR Dr Hanna - [facility] - 5-7 days for CHF. 3. see Dr Finn Lock or any [facility] pulmonary provider - 1-2 weeks - for COPD. 4. BIPAP via home unit EVERY NIGHT and with NAPS. 5. NC O2 - continuously - 3-4 liters. 6. DAILY WEIGHTS. Notify MD of any weight gain of more than 3 pounds in 24 hours. Pending Studies at Discharge: No Stand-Alone Forms: My [facility] Skilled Items Patient informed of condition?: Yes DNR: Yes Discharge Level of Care: Acute rehab Communicable Disease: No Discharge Prognosis: Stable Lines: None Urinary Catheter: No Medications and DC Order Prescriptions: New Eliquis 5 mg Tablet 5 mg PO BID Qty: 60 RF: 2 metoprolol succinate 50 mg Tablet Extended Release 24 Hr 50 mg PO QAM Qty: 30 RF: 2 spironolactone 25 mg Tablet 25 mg PO DAILY Qty: 30 RF: 2 trazodone 50 mg Tablet 37.5 mg PO HS Qty: 45 RF: 0 pantoprazole 40 mg Tablet,Delayed Release (Dr/Ec) 40 mg PO BID Qty: 60 RF: 2 sennosides [Senokot] 8.6 mg Tablet 8.6 mg PO QAM Qty: 30 RF: 0 metoprolol succinate [Toprol XL] 25 mg tablet extended release 24 hr 25 mg PO HS Qty: 30 RF: 2 prednisone 10 mg tablet 10 mg PO DIRECTED Qty: 9 RF: 0 (DME) Oxygen Home Liters Per Minute See Rx Instructions .ROUTE .MEDSUPPLY Qty: 1 RF: 0 Continued atorvastatin 80 mg tablet 80 mg PO HS Qty: 90 RF: 3 potassium chloride [Klor-Con 10] 10 mEq tablet extended release 20 meq PO BID Qty: 360 RF: 3 albuterol sulfate 90 mcg/actuation HFA aerosol inhaler 1 puff INHALATION Q6H PRN (Reason: Shortness Of Breath) Qty: 18 RF: 5 ipratropium-albuterol 0.5 mg-3 mg(2.5 mg base)/3 mL solution for nebulization 3 ml INHALATION Q6H PRN (Reason: Wheezing) Qty: 180 RF: 5 multivitamin Tablet 1 tab PO QAM RF: 0 triamcinolone acetonide 0.1 % Cream 1 applic TOPICAL DAILY PRN (Reason: Rash) RF: 0 mometasone [Nasonex] 50 mcg/actuation [place],Non-Aerosol 2 spray INTRANASAL HS RF: 0 Calcium 600 + D(3) 600 mg calcium- 200 unit Capsule 1 cap PO BID RF: 0 [id number] [MegaRed [place]-3 Krill Oil] 1,000-230-60 mg Capsule 1 cap PO QAM RF: 0 cyanocobalamin (vitamin B-12) [Vitamin B-12] 1,000 mcg Tablet Extended Release 1,000 mcg PO QAM RF: 0 furosemide 40 mg tablet 40 mg PO BID RF: 0 montelukast 10 mg tablet 10 mg PO QAM RF: 0 Trelegy Ellipta 100-62.5-25 mcg blister with device 1 inh INH QAM RF: 0 Discontinued digoxin [Digox] 125 mcg (0.125 mg) tablet 125 mcg PO QAM Qty: 90 RF: 3 Xarelto 20 mg tablet 20 mg PO QAM Qty: 90 RF: 3 atenolol 100 mg tablet 200 mg PO BID Qty: 360 RF: 3 omeprazole 40 mg capsule,delayed release(DR/EC) 40 mg PO BID Qty: 180 RF: 3 metolazone 2.5 mg tablet 2.5 mg PO FR RF: 0 Discharge Orders: Discharge Order (Routine); Ordered 02/23/20 Ordered By: Avila Abraham Admission Data Admit Date/Time: 02/02/20 14:24 Attending Provider: Avila Abraham Admit Provider: Lucio Steel Primary Care Provider: Luis Manuel Mijares III [facility] ; Lucio Steel ; Opal Estrella ; Boyd Mcnamara ; Pattie Dixon ; Bobby Lock Other Interventions: Discharge Summary Assessment (RN) Last Done: 02/23/20 12:41 Coding Level of Care Code D/C Day Management >30 mins Diagnoses Acute GI bleeding K92.2 Acute blood loss anemia D62 Digoxin toxicity T46.0X1S Encounter type: sequela Injury intent: accidental or unintentional XIOMY (acute kidney injury) N17.9 Acute on chronic respiratory failure with hypoxia and hypercapnia J96.21; J96.22 Acute on chronic diastolic (congestive) heart failure I50.33 Iron deficiency anemia D50.9 Iron deficiency anemia type: unspecified iron deficiency Chronic obstructive pulmonary disease J44.9 COPD type: unspecified COPD SHIRA (obstructive sleep apnea) G47.33 Complicated UTI (urinary tract infection) N39.0 Afib I48.91 Atrial fibrillation type: unspecified Elevated troponin R77.8 Morbid obesity with BMI of 45.0-49.9, adult E66.01; Z68.42 CAD (coronary artery disease) I25.10 Candidiasis of mouth and esophagus B37.81; B37.0
== END 2020-02-23 14:39 | DRG 377 ==
LOC: ED 11:56 → 1E 14:24 → SUATTDRO 14:24 → 1E 14:47 → 2E 02-04 11:58 → 2N 02-07 15:15 → 3E 02-09 03:47

== ENCOUNTER 2020-04-12 15:55 | Inpatient (IN) ==
[2020-04-12] MEDS ORDERED: SODIUM CHLORIDE 0.9% 1000ML 500 ML IV ONE ×2 (16:24→18:10)
--- NOTE | 2020-04-12 16:37 | Electrocardiogram Report ---
Test Reason : Blood Pressure : / mmHG Vent. Rate : 036 BPM Atrial Rate : 258 BPM P-R Int : 000 ms QRS Dur : 094 ms QT Int : 390 ms P-R-T Axes : 000 -22 020 degrees QTc Int : 301 ms Atrial fibrillation with slow ventricular response (36 bpm) Low voltage QRS Possible Old Anterior infarct (cited on or before 02-FEB-2020) Diffuse Nonspecific T wave abnormality Abnormal ECG When compared with ECG of 14-FEB-2020 18:56, Vent. rate has decreased BY 52 BPM Nonspecific T wave abnormality now present Confirmed by Bib Ramirez ([id number]) on 04/12/2020 4:37:36 PM Referred By: Confirmed By:Bib Ramirez
[2020-04-12 16:55] LABS: Mean Corpuscular Hgb Conc 30.5 g/dL (32-36); Mean Platelet Volume 11.2 fL (7.4-10.4); Platelet Count 224 K/uL (130-400)
[2020-04-12 16:59] LABS: iSTAT Creatinine 1.5 mg/dl (0.6-1.3); iSTAT Hemoglobin 10.9 g/dl (14.0-18.0); iSTAT Ionized Calcium 1.05 mmol/l (1.12-1.32); iSTAT Potassium 4.8 mmol/L (3.3-5.0)
[2020-04-12 17:06] LABS: INR 1.3 (0.9-1.1); Partial Thromboplastin Ratio 1.1; Partial Thromboplastin Time 30.8 Seconds (21.0-31.0); Prothrombin Time 13.6 Seconds (9.0-12.0)
[2020-04-12 17:09] LABS: Hematocrit (blood only) 34.7 % (42-52); Hemoglobin 10.6 g/dL (14.0-18.0); Mean Corpuscular Hemoglobin 31.2 pg (25-34); Mean Corpuscular Volume 102.1 fL (80-100); RDW Coefficient of Variation 23.5 % (11.5-14.5); RDW Standard Deviation 88.2 fL (36.4-46.3); White Blood Count 7.47 K/uL (4.8-10.8)
[2020-04-12 17:10] LABS: Anisocytosis Present; Basophils # (auto) 0.04 K/uL (0-0.2); Basophils % (auto) 0.5 %; Eosinophils # (auto) 0.16 K/uL (0-0.5); Eosinophils % (auto) 2.1 %; Immature Granulocytes # (auto) 0.01 K/uL (0.00-0.02); Immature Granulocytes % (auto) 0.1 %; Lymphocytes # (auto) 1.29 K/uL (1.2-3.4); Lymphocytes % (auto) 17.3 %; Monocytes # (auto) 0.79 K/uL (0.11-0.59); Monocytes % (auto) 10.6 %; Neutrophils # (auto) 5.18 K/uL (1.4-6.5); Neutrophils % (auto) 69.4 %; Ovalocytes 1+
[2020-04-12 17:11] LABS: Alanine Aminotransferase 17 U/L (12-78); Albumin Level 3.3 gm/dl (3.4-5.0); Aspartate Aminotransferase 22 U/L (15-37); BUN Creatinine Ratio 20.8 (10-20); Blood Urea Nitrogen 30 mg/dl (7-18); Calcium 8.9 mg/dl (8.5-10.1); Carbon Dioxide 33 mmol/L (21-32); Chloride 105 mmol/L (98-107); Creatinine Clr Calc Pharmacy 56.6 ml/min; Est GFR (African American) 54.9; Est GFR (Non-African American) 47.4; Glucose 96 mg/dl (70-99); Magnesium 2.5 mg/dl (1.8-2.4); Potassium 4.8 mmol/L (3.5-5.1); Sodium 141 mmol/L (136-145)
[2020-04-12 17:16] LABS: Albumin Globulin Ratio 0.9 (0.9-2); Alkaline Phosphatase 49 U/L (45-117); Bilirubin,Total 0.8 mg/dl (0.2-1); C Reactive Protein 0.61 mg/dl (0-0.29); Globulin 3.6 gm/dl (2.5-4.0); Total Protein 6.9 gm/dl (6.4-8.2); Troponin I < 0.015 ng/ml (0-0.045)
--- NOTE | 2020-04-12 17:28 | Emergency Department Note ---
Impression & Plan Digoxin toxicity, Acute kidney injury, Acute GI bleeding, Acute hypotension, Symptomatic bradycardia ED Provider Note NAME: ALINA SHAH AGE: 74 SEX: M : 1945 ARRIVES VIA: Walk-In INFORMANT: Patient, ED PROVIDER(S): Richard Leonardo DO CHIEF COMPLAINT: Weakness HPI: The patient is a 74-year-old male who presented to the emergency department for an evaluation of generalized weakness. The patient states he started having the symptoms over the course the last 2 to 3 days. He states that he started noticing difficulty ambulating and becoming very dizzy and lightheaded upon standing. The patient states that he went to see his primary care physician for the symptoms and was found to have significant bradycardia. He was sent to the emergency department because his heart rate was low and his blood pressure was also very low. The patient has a history of atrial fibrillation. He is noticed lower extremity swelling. He denies having any chest pain or difficulty breathing. He is also noticed rectal bleeding recently. The patient states he also had his digoxin dose increased over the course of the last few weeks. He does take Eliquis for chronic atrial fibrillation. He states that he has been compliant with all of his medications. ROS: See above HPI for pertinent positives & negatives. A total of 10 systems reviewed and were otherwise negative. PAST MEDICAL HISTORY: See Below PAST SURGICAL HISTORY: See Below FAMILY HISTORY: See Below SOCIAL HISTORY: See Below HOME MEDICATIONS: See Below ALLERGIES: See Below VITALS: See Below PHYSICAL EXAMINATION: GENERAL: The patient is awake and alert. The patient is somewhat anxious appearing. EYES: The conjunctivae are clear. The pupils are round and reactive. EARS, NOSE, MOUTH AND THROAT: The nose is without any evidence of any deformity. NECK: The neck is nontender and supple. RESPIRATORY: Shallow respirations were noted. Diminished breath sounds are noted in the left base. CARDIOVASCULAR: Bradycardic heart sounds were noted to auscultation. No definite murmur was noted. GASTROINTESTINAL: The abdomen is soft and nondistended. There is no tenderness to palpation. Rectal exam revealed brown stool which was strongly heme positive. MUSCULOSKELETAL/EXTREMITIES: There is no evidence of gross deformity full range of motion is noted in the hips and shoulders. SKIN: There is no obvious evidence of any rash. Pedal edema was noted bilaterally. NEUROLOGIC: Patient is awake alert and oriented x3. MEDICAL DECISION MAKING: The patient is a 74-year-old male who presented to the emergency department for an evaluation of generalized weakness. The patient was found to bradycardia hypotension. Initially his work-up started to go down a septic pathway given his symptoms. The patient was found to have an elevated digoxin level. He was treated with IV fluids. He was reevaluated multiple times. His symptoms significantly improved. He was also found to have heme positive stool. I am unsure of the significance of this at this time he does not appear to be hemorrhaging and his stool was only heme positive brown. I discussed the patient's laboratory and radiographic studies with him. I also discussed his case with the on-call [facility] hospitalist. I discussed his case with the strategic marketing manager at the [facility]. Triage Nursing notes reviewed. Prior medical records reviewed Vital Signs: reviewed and remarkable for bradycardia and hypotension. Differential diagnosis: Premature contractions, electrolyte abnormality, cardiac dysrhythmia, thyroid dysfunction, pulmonary embolism, infection, gastrointestinal, as well as other pathologies. ER treatment provided: See below Diagnostics interpreted by me: ECG: EKG was obtained in the emergency department. My interpretation is atrial fibrillation at 36 bpm. Low voltage was noted throughout. Lateral ST segment abnormalities were noted. This was compared to a tracing from February 14, 2020. The rate has significantly decreased otherwise no significant changes were noted. Cardiac Monitoring: An order was placed for continuous cardiac monitoring. The monitor shows a rate of 38 bpm with atrial fibrillation rhythm. Laboratory studies: As stated above and show below. Imaging studies: See below Consultation(s): [id number]: PCC consult. Dr Snell, she recommends giving the patient Digibind. She recommends starting with 1-2 vials over the first 60 minutes and then repeat one vial at a time to affect. She also recommends that we keep the patient in the ICU. She also recommends that we further evaluate why the patient is on digoxin and consider discontinuing this medication if at all possible. 182: I discussed this case with Dr. Saavedra [facility] will [facility] the patient in the emergency department. ED COURSE: Procedures: none PDMP:reviewed and no issues Critical Care: I have personally spent greater than 45 minutes of critical care time in the direct management of this patient. This includes bedside care, interpretation of diagnostic studies, and testing, discussion with consultants, patient, and family members, and other required patient management activities. This 45 minutes is in excess of all separately billable procedures. Past Med/Surg History Medical History Acute blood loss anemia Acute exacerbation of CHF (congestive heart failure) Acute hyperkalemia XIOMY (acute kidney injury) Anemia Atrial fibrillation Walker esophagus Cellulitis of right lower leg Chronic respiratory failure with hypoxia and hypercapnia Closed right hip fracture (04/05/13) COPD exacerbation Difficulty swallowing Edema of left upper arm Gastritis, erosive GERD (gastroesophageal reflux disease) Hip fracture (04/03/13) History of heart artery stent x1 2008 @ [facility] by Dr. Luna History of prostate cancer Hyperlipidemia Hypertension Leg edema On anticoagulant therapy On home oxygen therapy 2-3L N/C at all times S/P right hip fracture (04/05/13) Sleep apnea CPAP with 2-3L Subepithelial gastric mass Surgical History History of bilateral cataract extraction History of cardiac cath 2008 @ [facility] - HAD STENT X1 History of colonoscopy History of esophagogastroduodenoscopy (EGD) EUS 03/2019 [facility] EUS 11/21/18 Glidescope 4 with grade 1 view History of lumbar surgery hardware in place History of prostate biopsy malignant History of prostatectomy History of right shoulder replacement History of total left hip replacement History of total right hip replacement History of umbilical hernia repair Hx of nasal septoplasty Family History Uncle Prostate cancer Mother Septicemia Father COPD (chronic obstructive pulmonary disease) Pancreatic cancer Other No family history of adverse response to anesthesia Social History Smoking Status: Former smoker Tobacco Type: Cigarettes Age Started Using Tobacco: 17; Age Quit Using Tobacco: 54; packs per day: 1; Years Smoked: 37; Second Hand Exposure: No; Hx Alcohol Use: Yes Alcohol type: hard liquor Alcohol Intake Frequency Comment: 2-3 daily Hx Substance Use: No Preferred Language: [place] Citizen Communication Ability: Effective Hearing Ability: Use of Hearing Aid Thin Film Technician Required: No Beliefs That Will Affect Care: None marital status: Current Living Situation: Spouse Current Living Situation Comment: has step-children 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 Feels Safe at Home: Yes Seatbelt Use: always Sunscreen Use: No Assistive Devices: Walker Allergies Allergies Allergy/AdvReac Type Severity Reaction Status Date / Time adhesive Allergy Mild TAPE-RASH Verified 04/12/20 15:23 oxycodone Allergy Mild RASH Verified 04/12/20 15:23 diltiazem Allergy Unknown Verified 04/12/20 15:23 Home Meds Home Medications Medication Instructions Recorded Confirmed Calcium 600 + D(3) 1 cap PO BID 08/21/18 04/12/20 [id number] 1 cap PO QAM 08/21/18 04/12/20 [MegaRed [place]-3 Krill Oil] mometasone [Nasonex] 2 spray INTRANASAL HS 08/21/18 04/12/20 multivitamin 1 tab PO QAM 08/21/18 04/12/20 triamcinolone acetonide 1 applic TOPICAL DAILY PRN 08/21/18 04/12/20 cyanocobalamin (vitamin B-12) 1,000 mcg PO QAM 11/05/18 04/12/20 [Vitamin B-12] Trelegy Ellipta 1 inh INH QAM 02/02/20 04/12/20 montelukast 10 mg PO QAM 02/02/20 04/12/20 furosemide 40 mg tablet 120 mg PO BID tab 04/12/20 04/12/20 Previous Rx's Medication Instructions Recorded atorvastatin 80 mg tablet 80 mg PO HS #90 tab 09/11/19 albuterol sulfate 90 mcg/actuation 1 puff INHALATION Q6H PRN #18 g 11/18/19 aerosol inhaler ipratropium 0.5 mg-albuterol 3 mg 3 ml INHALATION Q6H PRN #180 ml 11/18/19 (2.5 mg base)/3 mL nebulization soln Oxygen Home #1 ea 02/23/20 apixaban [Eliquis] 5 mg PO BID #60 tab 02/23/20 trazodone 37.5 mg PO HS #45 tab 02/23/20 omeprazole 40 mg capsule,delayed 40 mg PO DAILY #30 cap 03/24/20 release Lift Chair See Rx Instructions .ROUTE 04/05/20 .COMPLEX #1 ea NS atenolol 100 mg tablet 100 mg PO DAILY #30 tab 04/09/20 potassium chloride 10 mEq 10 meq PO DAILY #90 tab 04/09/20 tablet,extended release Results & Data (ED) Vital Signs Vital Signs - 24 hr 04/12/20 15:59 04/12/20 16:20 04/12/20 16:23 Temperature 36.5 C Temperature Source Oral Pulse Rate 41 L 41 L 41 L Pulse Rate [Apical] Pulse Rate from SpO2 Sensor Pulse Rhythm Regular Pulse Rhythm [Apical] Pulse Strength Normal Respiratory Rate 16 20 21 Respiratory Effort / Characteristics Non-Labored Respiratory Depth Normal Respiratory Pattern Regular Blood Pressure 99/48 L 114/36 L Blood Pressure [Right Arm] Blood Pressure Mean 65 88 Blood Pressure Mean [Right Arm] Blood Pressure Position Sitting Blood Pressure Position [Right Arm] Pulse Oximetry 92 100 99 Oxygen Delivery Method Room Air Room Air Room Air Oxygen Flow Rate Sepsis Recent Fever Within 48 Hours No Sepsis New/Unexplained Change in Mental Status N/A Sepsis Action Taken by Nursing No Action Required 04/12/20 16:30 04/12/20 16:31 04/12/20 16:40 Temperature Temperature Source Pulse Rate 35 L 30 L 42 L Pulse Rate [Apical] Pulse Rate from SpO2 Sensor 42 L Pulse Rhythm Pulse Rhythm [Apical] Pulse Strength Respiratory Rate 21 22 18 Respiratory Effort / Characteristics Respiratory Depth Respiratory Pattern Blood Pressure 122/92 Blood Pressure [Right Arm] Blood Pressure Mean 100 Blood Pressure Mean [Right Arm] Blood Pressure Position Blood Pressure Position [Right Arm] Pulse Oximetry 98 97 100 Oxygen Delivery Method Room Air Room Air Room Air Oxygen Flow Rate Sepsis Recent Fever Within 48 Hours Sepsis New/Unexplained Change in Mental Status Sepsis Action Taken by Nursing 04/12/20 16:46 04/12/20 16:47 04/12/20 16:50 Temperature Temperature Source Pulse Rate 41 L 39 L 37 L Pulse Rate [Apical] Pulse Rate from SpO2 Sensor 42 L 51 L 42 L Pulse Rhythm Pulse Rhythm [Apical] Pulse Strength Respiratory Rate 19 14 24 Respiratory Effort / Characteristics Respiratory Depth Respiratory Pattern Blood Pressure 115/42 L Blood Pressure [Right Arm] Blood Pressure Mean 66 66 Blood Pressure Mean [Right Arm] Blood Pressure Position Blood Pressure Position [Right Arm] Pulse Oximetry 100 96 97 Oxygen Delivery Method Room Air Room Air Room Air Oxygen Flow Rate Sepsis Recent Fever Within 48 Hours Sepsis New/Unexplained Change in Mental Status Sepsis Action Taken by Nursing 04/12/20 16:58 04/12/20 17:00 04/12/20 17:01 Temperature Temperature Source Pulse Rate 45 L Pulse Rate [Apical] Pulse Rate from SpO2 Sensor 44 L Pulse Rhythm Pulse Rhythm [Apical] Pulse Strength Respiratory Rate 17 Respiratory Effort / Characteristics Respiratory Depth Respiratory Pattern Blood Pressure 120/46 L Blood Pressure [Right Arm] Blood Pressure Mean 68 Blood Pressure Mean [Right Arm] Blood Pressure Position Blood Pressure Position [Right Arm] Pulse Oximetry 100 100 100 Oxygen Delivery Method Room Air Room Air Oxygen Flow Rate Sepsis Recent Fever Within 48 Hours Sepsis New/Unexplained Change in Mental Status Sepsis Action Taken by Nursing 04/12/20 17:11 04/12/20 17:16 04/12/20 17:20 Temperature Temperature Source Pulse Rate 46 L 61 61 Pulse Rate [Apical] Pulse Rate from SpO2 Sensor 49 L 108 H 67 Pulse Rhythm Pulse Rhythm [Apical] Pulse Strength Respiratory Rate 20 23 23 Respiratory Effort / Characteristics Respiratory Depth Respiratory Pattern Blood Pressure 100/89 Blood Pressure [Right Arm] Blood Pressure Mean 95 Blood Pressure Mean [Right Arm] Blood Pressure Position Blood Pressure Position [Right Arm] Pulse Oximetry 98 97 100 Oxygen Delivery Method Room Air Other Oxygen Flow Rate Sepsis Recent Fever Within 48 Hours Sepsis New/Unexplained Change in Mental Status Sepsis Action Taken by Nursing 04/12/20 17:30 04/12/20 17:31 04/12/20 17:41 Temperature Temperature Source Pulse Rate 50 L 52 L 59 L Pulse Rate [Apical] Pulse Rate from SpO2 Sensor 47 L 65 70 Pulse Rhythm Pulse Rhythm [Apical] Pulse Strength Respiratory Rate 20 21 21 Respiratory Effort / Characteristics Respiratory Depth Respiratory Pattern Blood Pressure 120/95 Blood Pressure [Right Arm] Blood Pressure Mean 99 Blood Pressure Mean [Right Arm] Blood Pressure Position Blood Pressure Position [Right Arm] Pulse Oximetry 99 100 98 Oxygen Delivery Method Oxygen Flow Rate Sepsis Recent Fever Within 48 Hours Sepsis New/Unexplained Change in Mental Status Sepsis Action Taken by Nursing 04/12/20 17:50 04/12/20 18:00 04/12/20 18:01 Temperature Temperature Source Pulse Rate 54 L 51 L 0 L Pulse Rate [Apical] Pulse Rate from SpO2 Sensor 86 52 L 47 L Pulse Rhythm Pulse Rhythm [Apical] Pulse Strength Respiratory Rate 22 21 19 Respiratory Effort / Characteristics Respiratory Depth Respiratory Pattern Blood Pressure 111/83 Blood Pressure [Right Arm] Blood Pressure Mean 87 Blood Pressure Mean [Right Arm] Blood Pressure Position Blood Pressure Position [Right Arm] Pulse Oximetry 100 99 96 Oxygen Delivery Method Room Air Room Air Oxygen Flow Rate Sepsis Recent Fever Within 48 Hours Sepsis New/Unexplained Change in Mental Status Sepsis Action Taken by Nursing 04/12/20 18:10 04/12/20 18:11 04/12/20 18:18 Temperature Temperature Source Pulse Rate 38 L 45 L Pulse Rate [Apical] 47 L Pulse Rate from SpO2 Sensor 37 L 50 L Pulse Rhythm Pulse Rhythm [Apical] Irregular Pulse Strength Respiratory Rate 24 17 24 Respiratory Effort / Characteristics Non-Labored Spontaneous Respiratory Depth Shallow Respiratory Pattern Regular Blood Pressure 107/80 Blood Pressure [Right Arm] 111/83 Blood Pressure Mean 83 Blood Pressure Mean [Right Arm] 92 Blood Pressure Position Blood Pressure Position [Right Arm] Lying Pulse Oximetry 100 99 100 Oxygen Delivery Method Nasal Cannula Room Air Room Air Oxygen Flow Rate 2 Sepsis Recent Fever Within 48 Hours Sepsis New/Unexplained Change in Mental Status Sepsis Action Taken by Nursing 04/12/20 18:20 Temperature Temperature Source Pulse Rate 56 L Pulse Rate [Apical] Pulse Rate from SpO2 Sensor 70 Pulse Rhythm Pulse Rhythm [Apical] Pulse Strength Respiratory Rate 22 Respiratory Effort / Characteristics Respiratory Depth Respiratory Pattern Blood Pressure Blood Pressure [Right Arm] Blood Pressure Mean Blood Pressure Mean [Right Arm] Blood Pressure Position Blood Pressure Position [Right Arm] Pulse Oximetry 100 Oxygen Delivery Method Room Air Oxygen Flow Rate Sepsis Recent Fever Within 48 Hours Sepsis New/Unexplained Change in Mental Status Sepsis Action Taken by Long-Term Medications Current Medication List: was personally reviewed by me Laboratory Data Attestation: I reviewed the patient's lab results. Result diagrams: 04/12/20 16:38 04/12/20 16:38 Lab Results 04/12/20 04/12/20 04/12/20 Range/Units 16:25 16:25 16:38 WBC (4.8-10.8) K/uL RBC (4.7-6.1) M/uL Hgb (14.0-18.0) g/dL POC Hgb (14.0-18.0) g/dl Hct (42-52) % POC Hct (42-52) % MCV (80-100) fL MCH (25-34) pg MCHC (32-36) g/dL RDW Std Deviation (36.4-46.3) fL RDW Coeff of Ezekiel (11.5-14.5) % Plt Count (130-400) K/uL MPV (7.4-10.4) fL Immature Gran % (Auto) % Neut % (Auto) % Lymph % (Auto) % Ellis % (Auto) % Eos % (Auto) % Baso % (Auto) % Neut # (Auto) (1.4-6.5) K/uL Lymph # (Auto) (1.2-3.4) K/uL Ellis # (Auto) (0.11-0.59) K/uL Eos # (Auto) (0-0.5) K/uL Baso # (Auto) (0-0.2) K/uL Immature Gran # (Auto) (0.00-0.02) K/uL Anisocytosis Ovalocytes ESR (0-14) mm/hr PT (9.0-12.0) Seconds INR (0.9-1.1) APTT (21.0-31.0) Seconds PTT Ratio POC Sodium (135-144) mmol/L Sodium (136-145) mmol/L POC Potassium (3.3-5.0) mmol/L Potassium (3.5-5.1) mmol/L POC Chloride (101-112) mmol/L Chloride (98-107) mmol/L Carbon Dioxide (21-32) mmol/L POC Total CO2 (24-31) mmol/L Anion Gap (3-11) POC Anion Gap (16-25) mmol/L POC BUN (7-18) mg/dl BUN (7-18) mg/dl Creatinine (0.6-1.4) mg/dl POC Creatinine (0.6-1.3) mg/dl Est Cr Clr Drug Dosing ml/min Est GFR ( Amer) Est GFR (Non-Af Amer) BUN/Creatinine Ratio (10-20) Glucose (70-99) mg/dl POC Glucose (other) (70-99) mg/dl Lactate (0.4-2.0) mmol/L Calcium (8.5-10.1) mg/dl POC Ioniz Calcium Magaly (1.12-1.32) mmol/l Magnesium (1.8-2.4) mg/dl Total Bilirubin (0.2-1) mg/dl AST (15-37) U/L ALT (12-78) U/L Alkaline Phosphatase (45-117) U/L Troponin I (0-0.045) ng/ml C-Reactive Protein (0-0.29) mg/dl Total Protein (6.4-8.2) gm/dl Albumin (3.4-5.0) gm/dl Globulin (2.5-4.0) gm/dl Albumin/Globulin Ratio (0.9-2) Procalcitonin Digoxin (0.8-2.0) ng/ml COVID-19 Eval Order Covid19 IDNow atMDEC SARS-CoV-2, RNA, NAAT NEGATIVE (NEGATIVE) Blood Type A Positive Antibody Screen NEGATIVE 04/12/20 04/12/20 04/12/20 Range/Units 16:38 16:38 16:38 WBC 7.47 (4.8-10.8) K/uL RBC 3.40 L (4.7-6.1) M/uL Hgb 10.6 L (14.0-18.0) g/dL POC Hgb (14.0-18.0) g/dl Hct 34.7 L (42-52) % POC Hct (42-52) % MCV 102.1 H (80-100) fL MCH 31.2 (25-34) pg MCHC 30.5 L (32-36) g/dL RDW Std Deviation 88.2 H (36.4-46.3) fL RDW Coeff of Ezekiel 23.5 H (11.5-14.5) % Plt Count 224 (130-400) K/uL MPV 11.2 H (7.4-10.4) fL Immature Gran % (Auto) 0.1 % Neut % (Auto) 69.4 % Lymph % (Auto) 17.3 % Ellis % (Auto) 10.6 % Eos % (Auto) 2.1 % Baso % (Auto) 0.5 % Neut # (Auto) 5.18 (1.4-6.5) K/uL Lymph # (Auto) 1.29 (1.2-3.4) K/uL Ellis # (Auto) 0.79 H (0.11-0.59) K/uL Eos # (Auto) 0.16 (0-0.5) K/uL Baso # (Auto) 0.04 (0-0.2) K/uL Immature Gran # (Auto) 0.01 (0.00-0.02) K/uL Anisocytosis Present Ovalocytes 1+ ESR 22 H (0-14) mm/hr PT 13.6 H (9.0-12.0) Seconds INR 1.3 H (0.9-1.1) APTT 30.8 (21.0-31.0) Seconds PTT Ratio 1.1 POC Sodium (135-144) mmol/L Sodium (136-145) mmol/L POC Potassium (3.3-5.0) mmol/L Potassium (3.5-5.1) mmol/L POC Chloride (101-112) mmol/L Chloride (98-107) mmol/L Carbon Dioxide (21-32) mmol/L POC Total CO2 (24-31) mmol/L Anion Gap (3-11) POC Anion Gap (16-25) mmol/L POC BUN (7-18) mg/dl BUN (7-18) mg/dl Creatinine (0.6-1.4) mg/dl POC Creatinine (0.6-1.3) mg/dl Est Cr Clr Drug Dosing ml/min Est GFR ( Amer) Est GFR (Non-Af Amer) BUN/Creatinine Ratio (10-20) Glucose (70-99) mg/dl POC Glucose (other) (70-99) mg/dl Lactate (0.4-2.0) mmol/L Calcium (8.5-10.1) mg/dl POC Ioniz Calcium Magaly (1.12-1.32) mmol/l Magnesium (1.8-2.4) mg/dl Total Bilirubin (0.2-1) mg/dl AST (15-37) U/L ALT (12-78) U/L Alkaline Phosphatase (45-117) U/L Troponin I (0-0.045) ng/ml C-Reactive Protein (0-0.29) mg/dl Total Protein (6.4-8.2) gm/dl Albumin (3.4-5.0) gm/dl Globulin (2.5-4.0) gm/dl Albumin/Globulin Ratio (0.9-2) Procalcitonin Digoxin (0.8-2.0) ng/ml COVID-19 Eval Order SARS-CoV-2, RNA, NAAT (NEGATIVE) Blood Type Antibody Screen 01/12/21 01/12/21 01/12/21 Range/Units 16:38 16:38 16:38 WBC (4.8-10.8) K/uL RBC (4.7-6.1) M/uL Hgb (14.0-18.0) g/dL POC Hgb (14.0-18.0) g/dl Hct (42-52) % POC Hct (42-52) % MCV (80-100) fL MCH (25-34) pg MCHC (32-36) g/dL RDW Std Deviation (36.4-46.3) fL RDW Coeff of Ezekiel (11.5-14.5) % Plt Count (130-400) K/uL MPV (7.4-10.4) fL Immature Gran % (Auto) % Neut % (Auto) % Lymph % (Auto) % Ellis % (Auto) % Eos % (Auto) % Baso % (Auto) % Neut # (Auto) (1.4-6.5) K/uL Lymph # (Auto) (1.2-3.4) K/uL Ellis # (Auto) (0.11-0.59) K/uL Eos # (Auto) (0-0.5) K/uL Baso # (Auto) (0-0.2) K/uL Immature Gran # (Auto) (0.00-0.02) K/uL Anisocytosis Ovalocytes ESR (0-14) mm/hr PT (9.0-12.0) Seconds INR (0.9-1.1) APTT (21.0-31.0) Seconds PTT Ratio POC Sodium (135-144) mmol/L Sodium 141 (136-145) mmol/L POC Potassium (3.3-5.0) mmol/L Potassium 4.8 (3.5-5.1) mmol/L POC Chloride (101-112) mmol/L Chloride 105 (98-107) mmol/L Carbon Dioxide 33 H (21-32) mmol/L POC Total CO2 (24-31) mmol/L Anion Gap 3.0 (3-11) POC Anion Gap (16-25) mmol/L POC BUN (7-18) mg/dl BUN 30 H (7-18) mg/dl Creatinine 1.46 H (0.6-1.4) mg/dl POC Creatinine (0.6-1.3) mg/dl Est Cr Clr Drug Dosing 56.6 ml/min Est GFR ( Amer) 54.9 Est GFR (Non-Af Amer) 47.4 BUN/Creatinine Ratio 20.8 H (10-20) Glucose 96 (70-99) mg/dl POC Glucose (other) (70-99) mg/dl Lactate 2.3 H* (0.4-2.0) mmol/L Calcium 8.9 (8.5-10.1) mg/dl POC Ioniz Calcium Magaly (1.12-1.32) mmol/l Magnesium 2.5 H (1.8-2.4) mg/dl Total Bilirubin 0.8 (0.2-1) mg/dl AST 22 (15-37) U/L ALT 17 (12-78) U/L Alkaline Phosphatase 49 (45-117) U/L Troponin I < 0.015 (0-0.045) ng/ml C-Reactive Protein 0.61 H (0-0.29) mg/dl Total Protein 6.9 (6.4-8.2) gm/dl Albumin 3.3 L (3.4-5.0) gm/dl Globulin 3.6 (2.5-4.0) gm/dl Albumin/Globulin Ratio 0.9 (0.9-2) Procalcitonin Cancelled Digoxin (0.8-2.0) ng/ml COVID-19 Eval Order SARS-CoV-2, RNA, NAAT (NEGATIVE) Blood Type Antibody Screen 04/12/20 04/12/20 Range/Units 16:42 16:47 WBC (4.8-10.8) K/uL RBC (4.7-6.1) M/uL Hgb (14.0-18.0) g/dL POC Hgb 10.9 L (14.0-18.0) g/dl Hct (42-52) % POC Hct 32 L (42-52) % MCV (80-100) fL MCH (25-34) pg MCHC (32-36) g/dL RDW Std Deviation (36.4-46.3) fL RDW Coeff of Ezekiel (11.5-14.5) % Plt Count (130-400) K/uL MPV (7.4-10.4) fL Immature Gran % (Auto) % Neut % (Auto) % Lymph % (Auto) % Ellis % (Auto) % Eos % (Auto) % Baso % (Auto) % Neut # (Auto) (1.4-6.5) K/uL Lymph # (Auto) (1.2-3.4) K/uL Ellis # (Auto) (0.11-0.59) K/uL Eos # (Auto) (0-0.5) K/uL Baso # (Auto) (0-0.2) K/uL Immature Gran # (Auto) (0.00-0.02) K/uL Anisocytosis Ovalocytes ESR (0-14) mm/hr PT (9.0-12.0) Seconds INR (0.9-1.1) APTT (21.0-31.0) Seconds PTT Ratio POC Sodium 140 (135-144) mmol/L Sodium (136-145) mmol/L POC Potassium 4.8 (3.3-5.0) mmol/L Potassium (3.5-5.1) mmol/L POC Chloride 102 (101-112) mmol/L Chloride (98-107) mmol/L Carbon Dioxide (21-32) mmol/L POC Total CO2 32 H (24-31) mmol/L Anion Gap (3-11) POC Anion Gap 12.0 L (16-25) mmol/L POC BUN 31 H (7-18) mg/dl BUN (7-18) mg/dl Creatinine (0.6-1.4) mg/dl POC Creatinine 1.5 H (0.6-1.3) mg/dl Est Cr Clr Drug Dosing ml/min Est GFR ( Amer) Est GFR (Non-Af Amer) BUN/Creatinine Ratio (10-20) Glucose (70-99) mg/dl POC Glucose (other) 97 (70-99) mg/dl Lactate (0.4-2.0) mmol/L Calcium (8.5-10.1) mg/dl POC Ioniz Calcium Magaly 1.05 L (1.12-1.32) mmol/l Magnesium (1.8-2.4) mg/dl Total Bilirubin (0.2-1) mg/dl AST (15-37) U/L ALT (12-78) U/L Alkaline Phosphatase (45-117) U/L Troponin I (0-0.045) ng/ml C-Reactive Protein (0-0.29) mg/dl Total Protein (6.4-8.2) gm/dl Albumin (3.4-5.0) gm/dl Globulin (2.5-4.0) gm/dl Albumin/Globulin Ratio (0.9-2) Procalcitonin Digoxin 3.9 H* (0.8-2.0) ng/ml COVID-19 Eval Order SARS-CoV-2, RNA, NAAT (NEGATIVE) Blood Type Antibody Screen Administered Medications Sodium Chloride (Nss 1000ml) 500 mls @ 999 mls/hr IV .Q31M ONE Stop: 04/12/20 18:40 Last Admin: 04/12/20 18:16 Dose: 999 mls/hr Documented by: [id number] Discontinued Medications Sodium Chloride (Nss 1000ml) 500 mls @ 999 mls/hr IV .Q31M ONE Stop: 04/12/20 16:54 Last Infusion: 04/12/20 17:16 Dose: 0 mls/hr Documented by: [id number] Admin: 04/12/20 16:44 Dose: 999 mls/hr Documented by: [id number] Imaging Data Radiologist's Impression: Patient: ALINA SHAH Admit Date: 04/12/20 MR#: [id number] Address1: [address] [place] [address] Acct ID:[id number] Address2: Date: 1945 [facility] [place] Zip: [place] [address] Age: 74 Location: ED Sex: M Room/Bed: Att Phy: Diagnosis: LOW HEART RATE AND HYPOTENSION Henny Phy: Luis Manuel Mijares III, MD Service Date: 04/12/20 Fam Phy: Interpreting Phy: Tristan Santana Admit Phy: Ordering Phy: Richard Leonardo DO cc: ~ XR chest 1V portable HISTORY: 74 years-old Male SEPSIS acute sepsis COMPARISON: Chest radiograph 02/16/2020 TECHNIQUE: Portable AP view the chest FINDINGS: Cardiac silhouette is enlarged. Pulmonary vascular congestion. Trace pleural effusions with mild bibasilar opacities. Degenerative changes of the spine and left shoulder. Right shoulder total joint arthroplasty. IMPRESSION: 1. Cardiomegaly with pulmonary vascular congestion. 2. Mild bibasilar opacities suggest atelectasis versus pneumonitis. 3. Trace pleural effusions. ACT 112: Negative or not required by law. The above report was generated using voice recognition software. It may contain grammatical, syntax or spelling errors. Electronically signed by: Kvng Santana M.D. 04/12/2020 5:59 PM Dictated: 04/12/201757 Transcribed: 04/12/201757 Blood Pressure Blood Pressure Findings: Low blood pressure Discharge Plan Visit Data Chief Complaint: Hypotension Stated Complaint: LOW HEART RATE AND HYPOTENSION ED Provider: Richard Leonardo Discharge Problem: Digoxin toxicity, Acute kidney injury, Acute GI bleeding, Acute hypotension, Symptomatic bradycardia Patient Disposition: Being Evaluated by Hospitalist Condition: Good Forms Stand Alone Forms: My [employer] Prescriptions Prescriptions: No Action atorvastatin 80 mg tablet 80 mg PO HS Qty: 90 RF: 3 furosemide 40 mg tablet 120 mg PO BID RF: 0 omeprazole 40 mg capsule,delayed release(DR/EC) 40 mg PO DAILY Qty: 30 RF: 2 Lift Chair Misc See Rx Instructions .ROUTE .COMPLEX Qty: 1 RF: 0 atenolol 100 mg tablet 100 mg PO DAILY Qty: 30 RF: 2 potassium chloride [Klor-Con 10] 10 mEq tablet extended release 10 meq PO DAILY Qty: 90 RF: 3 albuterol sulfate 90 mcg/actuation HFA aerosol inhaler 1 puff INHALATION Q6H PRN (Reason: Shortness Of Breath) Qty: 18 RF: 5 ipratropium-albuterol 0.5 mg-3 mg(2.5 mg base)/3 mL solution for nebulization 3 ml INHALATION Q6H PRN (Reason: Wheezing) Qty: 180 RF: 5 multivitamin Tablet 1 tab PO QAM RF: 0 triamcinolone acetonide 0.1 % Cream 1 applic TOPICAL DAILY PRN (Reason: Rash) RF: 0 mometasone [Nasonex] 50 mcg/actuation [place],Non-Aerosol 2 spray INTRANASAL HS RF: 0 Calcium 600 + D(3) 600 mg calcium- 200 unit Capsule 1 cap PO BID RF: 0 ijgao-un-6-hba-njg-jfchtal-ast [MegaRed [place]-3 Krill Oil] 1,000-230-60 mg Capsule 1 cap PO QAM RF: 0 cyanocobalamin (vitamin B-12) [Vitamin B-12] 1,000 mcg Tablet Extended Release 1,000 mcg PO QAM RF: 0 montelukast 10 mg tablet 10 mg PO QAM RF: 0 Trelegy Ellipta 100-62.5-25 mcg blister with device 1 inh INH QAM RF: 0 Eliquis 5 mg Tablet 5 mg PO BID Qty: 60 RF: 2 trazodone 50 mg Tablet 37.5 mg PO HS Qty: 45 RF: 0 (DME) Oxygen Home Liters Per Minute See Rx Instructions .ROUTE .MEDSUPPLY Qty: 1 RF: 0 Referrals Referrals: Luis Manuel Mijares III, MD [Primary Care Provider] - Discharge Problem: Digoxin toxicity Qualifiers: Encounter type: initial encounter Injury intent: accidental or unintentional Qualified Code(s): T46.0X1A - Poisoning by cardiac-stimulant glycosides and drugs of similar action, accidental (unintentional), initial encounter
--- NOTE | 2020-04-12 18:00 | XRay Report ---
XR chest 1V portable HISTORY: 74 years-old Male SEPSIS acute sepsis COMPARISON: Chest radiograph 02/16/2020 TECHNIQUE: Portable AP view the chest FINDINGS: Cardiac silhouette is enlarged. Pulmonary vascular congestion. Trace pleural effusions with mild biba silar opacities. Degenerative changes of the spine and left shoulder. Right shoulder total joint arth roplasty. IMPRESSION: 1. Cardiomegaly with pulmonary vascular congestion. 2. Mild bibasilar opacities suggest atelectasis versus pneumonitis. 3. Trace pleural effusions. ACT 112: Negative or not required by law. The above report was generated using voice recognition software. It may contain grammatical, syntax o r spelling errors. Electronically signed by: Kvng Santana M.D. 04/12/2020 5:59 PM
[2020-04-12] MEDS ORDERED: CALCIUM GLUCONATE 10% 1,000 MG in SODIUM CHLORIDE 0.9% 50 ML IV ONE ×2 (18:54→19:22)
[2020-04-12] MEDS ORDERED: LACTATED RINGER'S 1,000 ML IV ONE (19:20)
[2020-04-12 19:24] LABS: Appearance Urine Cloudy (Clear); Bacteria Urine Automated Negative (Negative); Bilirubin Urine Negative (Negative); Blood Urine Negative (Negative); Color Urine Yellow; Glucose Urine UA Negative (Negative); Ketones Urine Negative (Negative); Leukocyte Esterase Urine Negative (Negative); Nitrite Urine Negative (Negative); Protein Urine 1+ (Negative); RBC Urine Automated 0-4 /hpf (0-4); Specific Gravity Urine 1.015 (1.000-1.030); Urobilinogen Urine Negative (Negative)
--- NOTE | 2020-04-12 20:07 | History & Physical Report ---
Date of Service April 12, 2020 Assessment & Plan (1) Digoxin toxicity: Patient has again suffered an XIOMY on top of his CKD, and resulting in Digoxin toxicity. We will have to ensure that the patient is able to remove this medication from his use upon discharge as he was not supposed to be taking it anyway given a history of digoxin toxicity and previous hospitalization requiring Digibind. Currently the patient is responding to conservative therapy, is well perfused and is mentating well, has blurred vision bradycardia and hypotension. - Will stabilize rhythm with optimizing electrolytes. Specifically K+, CA++, MG++ and NA+. - Clearing through urine is primary excretion, will increase IVF to dilute and as long as patient continues to make urine and kidney function responds to perfusion and hydration the patient should excrete digoxin. - If patient status fails to respond or he becomes hemodynamically unstable, would support with vasopressor/inotrope- Dopamine. We have discussed the case with Dr. Bauer (Cardiology/Electrophysiology) realtime and agrees with conservative care at this time. - Digibind-if needed, recommend to start with 1 vials over the first 60 minutes and then repeat one vial at a time to affect. Poison control has been consulted by the EMD. Holding off on giving this for now unless develops worsening ventricular ectopy or worsening bradycardia Admitted to ICU for close monitoring in case of recurrent hypotension and bradycardia requiring vasopressors (2) Acute kidney injury: Stage I XIOMY on CKD III. - Hypovolemia at this time, likely related to his diuretic use and blood loss (although does not appear to be severe acute blood loss), Resuscitate up front with 2L crystalloid, then re-evaluate organ perfusion, volume status, and urinary output. Optimizing hemodynamics and flushing out digoxin level as above. - Maintain MAPS >65 or per ICU team. (3) Acute hypotension: As above, contributed to digoxin overdose, likely concomitant with reduced beta surjit clearance as well. - As patient responds will not administer glucagon secondary to unwanted side effect profile and short lived effects. Improved with administration of IV fluids Following in the ICU in case of need for vasopressors (4) Symptomatic bradycardia: as above (5) Atrial fibrillation with slow ventricular response: as above - Hold BB for 24-48 hours until patient hemodynamics improve (HR/BP) - reintroduce slowly for HR control as well as BP support. Recommend conve rting back to metoprolol rather than atenolol in case of worsening renal failure again in the future - Will need to discuss bleeding vs clot risk with the patient regarding ferry terminal agent anticoagulation for AFIB. Patient has had bleeding episodes with Xeralto and Apixaban. No acute need to reverse at this time and half life will be done by this evening. Will hold PM dose. - Maybe a good candidate for aspirin therapy as primary. Multidisciplinary discussion regarding risk and benefit. (6) Acute GI bleeding: Patient with strong history of recurrent GI bleeds and anemia. Unclear at this time if patient is acutely bleeding, there appears to be no sign with physical exam however Heme (+) with guiac in ER. No michi blood comming from rectum. - Will trend CBC q6 hours with the ability to adjust frequency as clinical scenario changes - HGB and HCT may trend down with volume replacement, but will be careful not to misinterpret - Type and Cross for PRBC - Ferritin level pending - IF HGB/HCT trend down and acute bleeding can not be ruled out will consult GI - Consider as renal function stabilizes repeat abdominal CT scan for evaluation of gastric malignancy and abdominal lymphadenopathy. (7) COPD (chronic obstructive pulmonary disease): Continue home therapy. Patient is on home oxygen, will support SPO2 goal of 88-92% (8) CAD (coronary artery disease): No acute disease process needs at this time. Follow ECG, Troponin negative in the EMD, patient has no complaints of CP or worsening of dyspnea. Resume BB when able, continue to medically optimize (9) Iron deficiency anemia: Currently no acute need. Ferritin pending. - Is concerning with patient requiring multiple amount of blood transfusions and iron infusion. (10) Sleep apnea: BIPAP 13/9 for in house. Continue to work with patient compliance while at home. Mixed component likely and obesity playing large role is likely. (11) On home oxygen therapy: Continue support, will need upon discharge. (12) Chronic kidney disease (CKD): As above. Maintain perfusion and MAPS. Avoid nephrotoxic agents. Suppo rtive care. (13) Current use of nursing home anticoagulation: as above. Risk vs. Benefit needs to be discussed. (14) Lymphadenopathy, abdominal: Patient with portacaval and racheal hepatis lymphadenopathy history and adrenal gland nodule from previous scans of the abdomen. Negative FNA from 2019. - CT scan of abdomen repeat as above when stable or discuss alternate imaging modalities. (15) DVT prophylaxis: Holding home Eliquis for rectal bleeding as above, add SCDs Disposition-admit to ICU, appreciate etiquette teacher consultation History of Present Illness Primary Care Provider: Luis Manuel Mijares MD Mr. 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 Luna today, bradycardia; hypotension; and concern for acute blood loss in lower GI tract. The patient has a history of XIOMY, FE deficient anemia (recieved iron supplementation and 4 units of PRBC in most recent hospitalization in Jan), Afib on apixaban, HfPef (EF 70%), multiple assessments for anemia/lower GI bleeding concerns, COPD with SHIRA and Obesity on home oxygen at 5L/min, CAD with stent placement, HLD, CKD. Patient was recently admitted in January for continued anemia and blood loss and was sent to [facility] for rehab. Patient was discharged from [facility] to home with new medication list, that did not include digoxin, however, patient states that his dose was recently increased and he has been taking Digoxin 250 mcg every day. This appears to not be the case when reviewing his outpatient notes. Medication list was reviewed with telephone plant power operator and the patient on Mar 23, 2020 and did not include digoxin. The patient was restarted on his atenolol 200mg PO BID for patient preference and was changed to apixaban at that time from [facility] secondary to concern for GI bleeding. During the January admission, the patient was in ARF secondary to ATN from hypovolemia/anemia he was supported with dialysis and also had digoxin toxicity (level 3.3 at that time). Patient was seen by GI and secondary to his critical illness and resolution of his bleeding it was deemed that he would be evaluated when more clinically stable. He did have a FNA (2018) for evaluation of submucosal gastric mass that was negative. He has been evaluated repeatedly for anemia in the outpatient setting. In July 2018, he underwent an EGD & colonoscopy that did not indicate any sources of active bleeding, He then had a video capsule study that was unremarkable as well. He arrived to the emergency room with BP recorded at 70/42 and HR in the 30's, following 1 liter of 0.9% saline the patient's HR increased to the 40-50 range and BP increased to 90-100/40-50. Upon further evaluation it was determined that the patient was continuing to take his digoxin medication and digoxin level was 3.9. The patient does endorse 2 weeks of blood in the toilet at home and on the toilet paper, has not had any on his underwear. He reports that the blood is so much in the toilet that he can sometimes not see his stool through it. Patient is heme (+) in the EMD and does not have any michi blood coming from rectum. Patient is alert and keenly responsive and rythm is stabilizing and he is well perfused. His potassium level is normal at this time, sodium level normal at this time, and will acutely replace calcium for hypocalcemia iCA 1.05. Cardiology was consulted and reviewed the case. Poison control was consulted by the EMD provider. Patient will be admitted for telemetry monitoring, resuscitation and following of perfusion/hemodynamic support. COVID negative. Allergies Allergy/AdvReac Type Severity Reaction Status Date / Time adhesive Allergy Mild TAPE-RASH Verified 04/12/20 15:23 oxycodone Allergy Mild RASH Verified 04/12/20 15:23 diltiazem Allergy Unknown Verified 04/12/20 15:23 Home Medications Medication Instructions Recorded Confirmed Type Calcium 600 + D(3) 1 cap PO BID 08/21/18 04/12/20 History triamcinolone acetonide 1 applic TOPICAL DAILY PRN 08/21/18 04/12/20 History cyanocobalamin (vitamin B-12) 1,000 mcg PO QAM 11/05/18 04/12/20 History [Vitamin B-12] Trelegy Ellipta 1 inh INH QAM 02/02/20 04/12/20 History montelukast 10 mg PO HS 02/02/20 04/12/20 History trazodone 37.5 mg PO HS #45 tab 02/23/20 04/12/20 Rx acetaminophen 1,000 mg PO TID MDD 3000 MG 04/12/20 04/12/20 History APAP/DAY albuterol sulfate 1 puff INHALATION Q6H PRN 04/12/20 04/12/20 History apixaban [Eliquis] 5 mg PO AMHS 04/12/20 04/12/20 History atorvastatin 80 mg PO QAM 04/12/20 04/12/20 History digoxin 250 mcg PO QAM 04/12/20 04/12/20 History docusate sodium 100 mg PO BID 04/12/20 04/12/20 History fluticasone propionate [Flonase] 2 spray INTRANASAL DAILY PRN 04/12/20 04/12/20 History furosemide 40 mg tablet 40 mg PO BID tab 04/12/20 04/12/20 History ipratropium-albuterol 3 ml INHALATION Q6H PRN 04/12/20 04/12/20 History melatonin 3 mg PO HS 04/12/20 04/12/20 History metoprolol succinate See Rx Instructions .ROUTE .COMPLEX 04/12/20 04/12/20 History multivitamin,yt-nwfk-Ou-FA-min 1 tab PO QAM 04/12/20 04/12/20 History [Multivitamin And Mineral] omega-3 fatty acids [Fish Oil] 1,000 mg PO QAM 04/12/20 04/12/20 History Past Med/Surg History Medical History (Updated 04/12/20 @ 23:06 by Collette Saavedra MD) Acute blood loss anemia Acute exacerbation of CHF (congestive heart failure) Acute hyperkalemia XIOMY (acute kidney injury) Anemia Atrial fibrillation Walker esophagus Cellulitis of right lower leg Chronic respiratory failure with hypoxia and hypercapnia Closed right hip fracture (04/05/13) COPD exacerbation Difficulty swallowing Edema of left upper arm Gastritis, erosive GERD (gastroesophageal reflux disease) Hip fracture (04/03/13) History of heart artery stent x1 2008 @ [facility] by Dr. Luna History of prostate cancer Hyperlipidemia Hypertension Leg edema On anticoagulant therapy On home oxygen therapy 2-3L N/C at all times S/P right hip fracture (04/05/13) Sleep apnea CPAP with 2-3L Subepithelial gastric mass Surgical History History of bilateral cataract extraction History of cardiac cath 2008 @ [facility] - HAD STENT X1 History of colonoscopy History of esophagogastroduodenoscopy (EGD) EUS 03/2019 [facility] EUS 11/21/18 Glidescope 4 with grade 1 view History of lumbar surgery hardware in place History of prostate biopsy malignant History of prostatectomy History of right shoulder replacement History of total left hip replacement History of total right hip replacement History of umbilical hernia repair Hx of nasal septoplasty Family History Uncle Prostate cancer Mother Septicemia Father COPD (chronic obstructive pulmonary disease) Pancreatic cancer Other No family history of adverse response to anesthesia Social History Smoking Status: Former smoker Tobacco Type: Cigarettes Age Started Using Tobacco: 17; Age Quit Using Tobacco: 54; packs per day: 1; Years Smoked: 37; Second Hand Exposure: No; Hx Alcohol Use: Yes Alcohol type: hard liquor Alcohol Intake Frequency Comment: 2-3 daily Hx Substance Use: No Preferred Language: Yakut Communication Ability: Effective Hearing Ability: Use of Hearing Aid Cutting Supervisor Required: No Beliefs That Will Affect Care: None marital status: Current Living Situation: Spouse Current Living Situation Comment: has step-children 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 ENT: normal hearing, no trouble swallowing Respiratory: (+) oxygen use at home, sob with 50 feet of walking, (+)cough, (-) sputum, dyspnea at rest. Cardiovascular: Denies chest pain, tightness or palpitations, dizziness or light headedness Abdomen: (+) blood, No pain, nausea, vomiting, diarrhea or constipation Musculoskeletal: (+) joint pain, (-) calf pain, swelling Neurologic: No weakness, numbness/tingling, or balance problems Psychiatric: No anxiety or depression Skin: (+) venous ulcerations. No rash or itch Physical Exam Physical Exam: PHYSICAL EXAM: General: awake, alert, no apparent distress Head: Normocephalic, atraumatic ENT: PERRL, EOMI, no pharyngeal exudate, mucous membranes dry. Neuro: AAO x 3, speech clear and appropriate, strength intact bilaterally 5/5, sensation intact and equal all extremities. Chest: equal rise and fall of the chest, no accessory muscle use, no heaves or thirlls, Clear to auscultation, on 3l NC. Cardiac: irregular rate and rhythm, telemetry reviewed with bigeminy/bradycardia/afib and NSR, skin warm dry, cap refill <3 seconds, peripheral pusles +2 no JVD, no murmur +3 edema to lower extremities to mid calf, venous ulcerations to legs. GI: NABS x 4 quadrants, soft, nontender to palpation, no rebound, guarding or tenderness : Spontaneously voiding, no pain, no CVA tenderness, Extremities: Normal inspection, no peripheral edema or erythema, calfs nontender to palpation Psych: Normal mood and affect cits Skin: no rash or erythema Results & Data Results & Data ([facility]) Vital Signs (Past 12 Hours) Vital Signs Temp Pulse Pulse Resp BP BP Pulse Ox 04/12/20 19:31 51 L 24 93/58 L 99 04/12/20 19:17 48 L 24 102/56 L 99 04/12/20 19:01 59 L 18 100/71 100 04/12/20 18:45 0 L 23 110/55 L 100 04/12/20 18:32 43 L 19 101/41 L 99 04/12/20 18:30 50 L 21 97 04/12/20 18:20 56 L 22 100 04/12/20 18:18 45 L 24 107/80 100 04/12/20 18:11 38 L 17 99 04/12/20 18:10 47 L 24 111/83 100 04/12/20 18:01 0 L 19 111/83 96 04/12/20 18:00 51 L 21 99 04/12/20 17:50 54 L 22 100 04/12/20 17:41 59 L 21 98 04/12/20 17:31 52 L 21 120/95 100 04/12/20 17:30 50 L 20 99 04/12/20 17:20 61 23 100 04/12/20 17:16 61 23 100/89 97 04/12/20 17:11 46 L 20 98 04/12/20 17:01 45 L 17 120/46 L 100 04/12/20 17:00 100 04/12/20 16:58 100 04/12/20 16:50 37 L 24 97 04/12/20 16:47 39 L 14 115/42 L 96 04/12/20 16:46 41 L 19 100 04/12/20 16:40 42 L 18 100 04/12/20 16:31 30 L 22 97 04/12/20 16:30 35 L 21 122/92 98 04/12/20 16:23 41 L 21 99 04/12/20 16:20 41 L 20 114/36 L 100 04/12/20 15:59 36.5 C 41 L 16 99/48 L 92 ECG: Atrial fibrillation with slow ventricular response (36 bpm) Low voltage QRS Possible Old Anterior infarct (cited on or before 02-FEB-2020) Diffuse Nonspecific T wave abnormality Abnormal ECG When compared with ECG of 14-FEB-2020 18:56, Vent. rate has decreased BY 52 BPM Nonspecific T wave abnormality now present XR chest 1V portable HISTORY: 74 years-old Male SEPSIS acute sepsis COMPARISON: Chest radiograph 02/16/2020 TECHNIQUE: Portable AP view the chest FINDINGS: Cardiac silhouette is enlarged. Pulmonary vascular congestion. Trace pleural effusions with mild bibasilar opacities. Degenerative changes of the spine and left shoulder. Right shoulder total joint arthroplasty. IMPRESSION: 1. Cardiomegaly with pulmonary vascular congestion. 2. Mild bibasilar opacities suggest atelectasis versus pneumonitis. 3. Trace pleural effusions. Code Status & VTE Plan Code Status Full code VTE- SCD"s Hold Apixaban. VTE Prophylaxis Plan VTE Prophylaxis will be ordered: Yes Critical Care Time Prolonged Care Time Prolonged Care Time: Yes Total Prolonged Care Time: 40 Supervising Physician Co-Signing Physician Notes KENNEL MANAGER Supervision note: I have personally seen and examined the patient and discussed and verified the blancas points of the history and physical along with the plan with CHARISMA Adair with the following exceptions and/or additions: Patient presents from his telephone plant power operator office with feeling very lightheaded, and found to be hypotensive and bradycardic. His digoxin level is quite elevated and he had a heart rate in the 30s with a blood pressure of 70/40 upon arrival. He was given IV fluids and the blood pressure did improve to the low 100 systolic. Discussion was had with cardiology as well as the ER physician who discussed with poison control. Poison control did recommend Digibind at a low dose at this time, but after further discussion with cardiology, conservative management with IV fluid resuscitation and IV calcium gluconate and careful observation were chosen instead. Patient is mentating very well and denies any nausea. He does have some blurry vision. He denies any chest pain or shortness of breath. History and ROS reviewed as above-also with rectal bleeding ongoing again for several weeks Vitals reviewed Gen: AAOx3, NAD, morbidly obese HEENT: Anicteric sclerae, EOMI CV: Irregularly irregular, bradycardic, no mgr nl S1S2 Pulm: CTAB no wcr Abd: +BS soft NT ND no masses or hernias Ext: Chronic 2-3+ woody edema of legs bilaterally Skin: No rashes, warm/dry Neuro: Full strength throughout Laboratory values reviewed ECG reviewed Chest x-ray reviewed Case discussed with Dr. Bauer of cardiology 74-year-old male with history as noted above, here with hypotension, bradycardia, acute kidney injury, and rectal bleeding. Hypotension bradycardia thought to be secondary to digoxin toxicity as well as beta-surjit overdose. The patient is noted to have significant confusion over what medications he should and should not be taking. He was not to be taking digoxin at all and obviously has been. He plans on having his check all of his bottles tomorrow and will call in to say if digoxin is in one of the medication bottles. He is also been taking high doses of atenolol for a long time and was supposed to be on metoprolol since discharge from the rehab 1 month ago. His atenolol dose was reduced last week by cardiology down to 100 mg once a day. We will hold off on giving any glucagon at this point but will focus on improving renal function with IV fluid hydration and holding diuretics Discussion on Digibind as above-hold off for now unless has worsening ventricular ectopy-did have bigeminy in the ER Monitor closely in the ICU Could consider giving dopamine versus isoproterenol if needed For rectal bleeding, he has had extensive work-ups by GI in the past and had a recent admission for GI bleed 2 months ago here. Hemoglobin has not dropped much from previous. Trend serial CBC, hold Eliquis and consider discontinuing anticoagulation permanently in the future. Consider consultation with GI once more stable. PG Care Time/CCT Total # of Minutes Spent Total Time Spent: 75 Total Time Spent with Patient: Total time spent is greater than 50% in coordination of care (as documented) at patient's floor/unit and/or counseling patient: Prolonged Care Time Prolonged Care Time: Yes Total Prolonged Care Time: 40 Coding Level of Care Code 70429 Initial Inpt Care Lvl 3 (25 - SIGNIFICANT, SEPARATELY IDENTIFIABLE ) Diagnoses Digoxin toxicity T46.0X1A Encounter type: initial encounter Injury intent: accidental or unintentional Acute kidney injury N17.9 Acute hypotension I95.9 Symptomatic bradycardia R00.1 Atrial fibrillation with slow ventricular response I48.91 Acute GI bleeding K92.2 COPD (chronic obstructive pulmonary disease) J44.1 COPD type: COPD with acute exacerbation CAD (coronary artery disease) I25.10 Associated angina: without angina Coronary Disease-Associated Artery/Lesion type: ione artery [place] vs. transplanted heart: ione heart Iron deficiency anemia D50.9 Iron deficiency anemia type: unspecified iron deficiency Sleep apnea G47.30 Sleep apnea type: unspecified type On home oxygen therapy Z99.81 Chronic kidney disease (CKD) N18.9 Chronic kidney disease stage: stage 3 (moderate) Current use of nursing home anticoagulation Z79.01 Lymphadenopathy, abdominal R59.0 DVT prophylaxis Z29.9 Additional Codes Prolonged Care Time - Prolonged Care Time: Yes ([id number]) (1) Sleep apnea Sleep apnea type: unspecified type Qualified Code(s): G47.30 - Sleep apnea, unspecified (2) Digoxin toxicity Encounter type: initial encounter Injury intent: accidental or unintentional Qualified Code(s): T46.0X1A - Poisoning by cardiac-stimulant glycosides and drugs of similar action, accidental (unintentional), initial encounter (3) CAD (coronary artery disease) Associated angina: without angina Coronary Disease-Associated Artery/Lesion type: ione artery [place] vs. transplanted heart: ione heart Qualified Code(s): I25.10 - Atherosclerotic heart disease of ione coronary artery without angina pectoris (4) Chronic kidney disease (CKD) Chronic kidney disease stage: stage 3 (moderate) (5) Iron deficiency anemia Iron deficiency anemia type: unspecified iron deficiency Qualified Code(s): D50.9 - Iron deficiency anemia, unspecified (6) COPD (chronic obstructive pulmonary disease) COPD type: COPD with acute exacerbation Qualified Code(s): J44.1 - Chronic obstructive pulmonary disease with (acute) exacerbation
[2020-04-12] MEDS ORDERED: ICU PROTOCOL FOR HYPERGLYCEMIA PRN (20:37)
[2020-04-12] MEDS ORDERED: SODIUM CHLORIDE 0.9% 250 ML IV PRN (21:12)
[2020-04-12 21:42] LABS: BUN Creatinine Ratio 21.1 (10-20); Calcium 9.2 mg/dl (8.5-10.1); Creatinine Clr Calc Pharmacy 59.2 ml/min; Est GFR (African American) 57.8; Est GFR (Non-African American) 49.8; Potassium 4.7 mmol/L (3.5-5.1)
--- NOTE | 2020-04-12 21:45 | Critical Care Consultation ---
Date of Consultation April 12, 2020 Assessment & Plan (1) Admitted to intensive care unit: Reason Critically Ill: 74-year-old male with symptomatic bradycardia and hypotension with concerns of intravascular volume depletion and possible digitalis toxicity requiring close hemodynamic monitoring and possible need for intervention in the event of ongoing and/or worsening symptomatic bradycardia. NEURO - * CAM ICU: NEGATIVE CARDIAC/VASCULAR - * Bradycardia: * Patient currently on metoprolol at home. Previously on atenolol. * Concerns for digitalis toxicity with a level of 3.9 today. * Patient has remained hemodynamically stable after fluid resuscitation and IV calcium gluconate. * Initial recommendation for Digibind were held at the recommendation of cardiology as the patient has remained hemodynamically stable. * Will proceed with Digibind in the event that symptoms were to worsen. Would allow this to gauge further treatment recommendations including continuing with ongoing Digibind versus addition of chronotropic agent. * Will repeat AM Dig levels. * Will add AM Lyme titer for the sake of completeness. * Hypotension: * Likely 2/2 bradycardia and volume depletion. * Responded to IVF. * If requiring pressors, would consider Dopamine initially, but would certainly be cautious given its propensity for arrhythmogenicity. * EKG: A. fib w/ slow ventricular response at 36 bpm. QTc 301 ms. When compared to prior, rate has decrease, but no other significant findings noted. * Monitor on telemetry. RESPIRATORY - * Chronic hypoxic respiratory failure: * 5L O2 dependency. * BiPAP HS. * Saturating well at this time. GI/NUTRITION - * AHA Diet RENAL/LYTES - * XIOMY: * Concerns for volume depletion. * Received 1L crystalloid in the ED followed by 1L LR @200mL/hr * Continue to monitor closely for s/s volume overload. * Patient has previously required short term HD 2/2 XIOMY and oliguria. * Will monitor electrolytes and Dig levels w/ hopes of being able to avoid the need for HD. - * Strict I&Os. ENDO - * No h/o DM or Thyroid Dz * BSGs per unit protocol. ISS --> gtt per unit policy. HEME - * Monitor H&H in the setting of heme positive stools. * Previously evaluated for this and required PRBCs during recent admission. ID - * COVID PCR - NEGATIVE LINES/IV ACCESS - * PIVs x2 DVT PROPHYLAXIS - * Hold 2/2 Heme positive stool and currently on Eliquis. * SCDs I have personally spent 35 minutes of critical care time in the direct management of this patient. This is a life/limb threatening event. This includes time spent evaluating patient, direct bedside care, chart review, placing orders, interpretation of diagnostic studies, discussion with consultants, patient, and family members, as well as other required patient management activities. This time is exclusive of all separately billable procedures, and teaching time and separate from and in addition to any other critical care service time. Thank you for allowing us to participate in the care of this patient. Please refer to my attending physician's documentation for any further recommendations. (2) Bradycardia: (3) Digoxin toxicity: (4) Acute kidney injury: (5) Heme positive stool: (6) Acute hypotension: (7) Symptomatic bradycardia: (8) Atrial fibrillation: (9) Chronic respiratory failure with hypoxia and hypercapnia: (10) Sleep apnea, unspecified: (11) COPD (chronic obstructive pulmonary disease): (12) CAD (coronary artery disease): (13) Hypertension: Supervising Physician Co-Signing Physician Notes Seen and examined. Discussed with admitting service and with CC FELISHA. Agree with AP as noted. History of Present Illness Attending Physician: Collette Saavedra MD History of Present Illness Patient is a 74-year-old male with significant past medical history of hypertension, chronic respiratory failure on 5 L home O2 dependence, iron deficiency anemia coronary artery disease,, COPD, obstructive sleep apnea, A. fib on chronic anticoagulation in the form of Eliquis hyperlipidemia, obesity, iron deficiency anemia, chronic kidney disease, and recent concerns for GI bleeding. Patient was recently admitted to this facility with concerns for GI bleeding. He was eventually discharged to a rehabilitation facility and subsequently able to return to home. At some point during the patient's time at home, digoxin was restarted. There was also concern that the patient's dose may have been doubled. He was seen today at a regular cardiology follow-up appointment at which point, the patient was noted to be hypotensive and bradycardic. There was concern for volume depletion as well. Patient was directed immediately to the emergency department for further evaluation management. Upon arrival in the emergency department, the patient was noted to be hypotensive with systolic blood pressures in the 70s. His heart rate was in the 30s. Patient was resuscitated with 1 L of normal saline. His heart rate did improve into the 40s to 50s at that point. Blood pressure was maintained with appropriate systolics in the 1 teens to 120s with appropriate MAPs. Emergency physician did speak with poison control with recommendation for Digibind. Conversation also had with cardiology who recommends hydration and close hemodynamic monitoring and withholding Digibind unless the patient is to develop worsening ventricular dysrhythmias and/or worsening hemodynamics. He did receive 2 g of calcium gluconate as well as some additional total liter of lactated Ringer's at a rate of 200 mL/h. Upon arrival in the ICU, the patient is awake, alert, and oriented. He states that other than feeling generally weak, he reports that he is near his baseline. Specifically, the patient denies any complaints of dizziness, lightheadedness, palpitations, nausea, vomiting, abdominal pain. He does report some shortness of breath which he states has been ongoing for the last few months. Allergies Allergy/AdvReac Type Severity Reaction Status Date / Time adhesive Allergy Mild TAPE-RASH Verified 04/12/20 15:23 oxycodone Allergy Mild RASH Verified 04/12/20 15:23 diltiazem Allergy Unknown Verified 04/12/20 15:23 Home Medications Medication Instructions Recorded Confirmed Type Calcium 600 + D(3) 1 cap PO BID 08/21/18 04/12/20 History triamcinolone acetonide 1 applic TOPICAL DAILY PRN 08/21/18 04/12/20 History cyanocobalamin (vitamin B-12) 1,000 mcg PO QAM 11/05/18 04/12/20 History [Vitamin B-12] Trelegy Ellipta 1 inh INH QAM 02/02/20 04/12/20 History montelukast 10 mg PO HS 02/02/20 04/12/20 History trazodone 37.5 mg PO HS #45 tab 02/23/20 04/12/20 Rx acetaminophen 1,000 mg PO TID MDD 3000 MG 04/12/20 04/12/20 History APAP/DAY albuterol sulfate 1 puff INHALATION Q6H PRN 04/12/20 04/12/20 History apixaban [Eliquis] 5 mg PO AMHS 04/12/20 04/12/20 History atorvastatin 80 mg PO QAM 04/12/20 04/12/20 History digoxin 250 mcg PO QAM 04/12/20 04/12/20 History docusate sodium 100 mg PO BID 04/12/20 04/12/20 History fluticasone propionate [Flonase] 2 spray INTRANASAL DAILY PRN 04/12/20 04/12/20 History furosemide 40 mg tablet 40 mg PO BID tab 04/12/20 04/12/20 History ipratropium-albuterol 3 ml INHALATION Q6H PRN 04/12/20 04/12/20 History melatonin 3 mg PO HS 04/12/20 04/12/20 History metoprolol succinate See Rx Instructions .ROUTE .COMPLEX 04/12/20 04/12/20 History multivitamin,ue-eycq-Dg-FA-min 1 tab PO QAM 04/12/20 04/12/20 History [Multivitamin And Mineral] omega-3 fatty acids [Fish Oil] 1,000 mg PO QAM 04/12/20 04/12/20 History Patient History Medical History Acute blood loss anemia Acute exacerbation of CHF (congestive heart failure) Acute hyperkalemia XIOMY (acute kidney injury) Anemia Atrial fibrillation Walker esophagus Cellulitis of right lower leg Chronic respiratory failure with hypoxia and hypercapnia Closed right hip fracture (04/05/13) COPD exacerbation Difficulty swallowing Edema of left upper arm Gastritis, erosive GERD (gastroesophageal reflux disease) Hip fracture (04/03/13) History of heart artery stent x1 2008 @ [facility] by Dr. Luna History of prostate cancer Hyperlipidemia Hypertension Leg edema On anticoagulant therapy On home oxygen therapy 2-3L N/C at all times S/P right hip fracture (04/05/13) Sleep apnea CPAP with 2-3L Subepithelial gastric mass Surgical History History of bilateral cataract extraction History of cardiac cath 2008 @ [facility] - HAD STENT X1 History of colonoscopy History of esophagogastroduodenoscopy (EGD) EUS 03/2019 [facility] EUS 11/21/18 Glidescope 4 with grade 1 view History of lumbar surgery hardware in place History of prostate biopsy malignant History of prostatectomy History of right shoulder replacement History of total left hip replacement History of total right hip replacement History of umbilical hernia repair Hx of nasal septoplasty Family History Uncle Prostate cancer Mother Septicemia Father COPD (chronic obstructive pulmonary disease) Pancreatic cancer Other No family history of adverse response to anesthesia Social History Smoking Status: Former smoker Tobacco Type: Cigarettes Age Started Using Tobacco: 17; Age Quit Using Tobacco: 54; packs per day: 1; Years Smoked: 37; Second Hand Exposure: No; Hx Alcohol Use: Yes Alcohol type: hard liquor Alcohol Intake Frequency Comment: 2-3 daily Hx Substance Use: No Preferred Language: Serbian Communication Ability: Effective Hearing Ability: Use of Hearing Aid Hydrator Required: No Beliefs That Will Affect Care: None marital status: Current Living Situation: Spouse Current Living Situation Comment: has step-children 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 All else were negative. Physical Exam Physical Exam: VITAL SIGNS - Vital signs and nursing notes were reviewed. GENERAL - 74-year-old male appearing his stated age who is in no acute distress. Communicates well with provider and answers questions appropriately. SKIN - Without rashes. HEAD - NC/AT. EYES - PERRL with EOMI bilaterally. Sclera anicteric. EARS - No deformities of external structures noted on gross examination bilaterally. NOSE - Midline and without cyanosis. No epistaxis or purulent drainage noted. MOUTH/OROPHARYNX - Without perioral cyanosis. Buccal mucosa pink and moist and without leukoplakia. NECK - Neck with FROM. Supple to palpation. No nuchal rigidity. LUNGS - Chest wall symmetric without accessory muscle use, intercostals retractions, or central cyanosis. Normal vesicular breath sounds CTA B/L. No wheezes, rales, or rhonchi appreciated. CARDIAC - RRR with S1/S2. No murmur, rubs, or gallops appreciated. ABDOMEN - Abdominal contour obese without pulsations or visible masses. BS normoactive all four quadrants. No tenderness, palpable masses, he patosplenomegaly, or ascites noted. EXTREMITIES - No clubbing or peripheral cyanosis. +3/5 radial and dorsalis pedis pulses palpated throughout. +5/5 strength noted in UE/LE bilaterally. NEUROLOGIC - Cranial nerves II through XII grossly intact. PSYCH - A&Ox3 and cooperates fully with examiner. Pt is very pleasant and interacts well with examiner. Results & Data Results & Data ([facility]) Vital Signs (Past 12 Hours) Vital Signs Temp Pulse Pulse Resp BP BP Pulse Ox 04/12/20 20:59 36.7 C 54 L 20 108/55 L 99 04/12/20 20:16 58 L 23 124/45 L 100 04/12/20 20:00 47 L 18 124/45 L 100 04/12/20 19:46 61 19 115/58 L 97 04/12/20 19:31 51 L 24 93/58 L 99 04/12/20 19:17 48 L 24 102/56 L 99 04/12/20 19:01 59 L 18 100/71 100 04/12/20 18:45 0 L 23 110/55 L 100 04/12/20 18:32 43 L 19 101/41 L 99 04/12/20 18:30 50 L 21 97 04/12/20 18:20 56 L 22 100 04/12/20 18:18 45 L 24 107/80 100 04/12/20 18:11 38 L 17 99 04/12/20 18:10 47 L 24 111/83 100 04/12/20 18:01 0 L 19 111/83 96 04/12/20 18:00 51 L 21 99 04/12/20 17:50 54 L 22 100 04/12/20 17:41 59 L 21 98 04/12/20 17:31 52 L 21 120/95 100 04/12/20 17:30 50 L 20 99 04/12/20 17:20 61 23 100 04/12/20 17:16 61 23 100/89 97 04/12/20 17:11 46 L 20 98 04/12/20 17:01 45 L 17 120/46 L 100 04/12/20 17:00 100 04/12/20 16:58 100 04/12/20 16:50 37 L 24 97 04/12/20 16:47 39 L 14 115/42 L 96 04/12/20 16:46 41 L 19 100 04/12/20 16:40 42 L 18 100 04/12/20 16:31 30 L 22 97 04/12/20 16:30 35 L 21 122/92 98 04/12/20 16:23 41 L 21 99 04/12/20 16:20 41 L 20 114/36 L 100 04/12/20 15:59 36.5 C 41 L 16 99/48 L 92 Coding Level of Care Code 80816 Inpt Consult Level 5 Diagnoses Admitted to intensive care unit Z78.9 Bradycardia R00.1 Digoxin toxicity T46.0X1A Encounter type: initial encounter Injury intent: accidental or unintentional Acute kidney injury N17.9 Heme positive stool R19.5 Acute hypotension I95.9 Symptomatic bradycardia R00.1 Atrial fibrillation I48.21 Atrial fibrillation type: permanent Chronic respiratory failure with hypoxia and hypercapnia J96.11; J96.12 Sleep apnea, unspecified G47.33 Sleep apnea type: obstructive COPD (chronic obstructive pulmonary disease) J44.1 COPD type: COPD with acute exacerbation CAD (coronary artery disease) I25.10 Associated angina: without angina Coronary Disease-Associated Artery/Lesion type: [place] artery [place] vs. transplanted heart: [place] heart Hypertension I10 Hypertension type: essential hypertension Time Spent (min) 35 (1) Sleep apnea, unspecified Sleep apnea type: obstructive Qualified Code(s): G47.33 - Obstructive sleep apnea (adult) (pediatric) (2) Digoxin toxicity Encounter type: initial encounter Injury intent: accidental or unintentional Qualified Code(s): T46.0X1A - Poisoning by cardiac-stimulant glycosides and drugs of similar action, accidental (unintentional), initial encounter (3) CAD (coronary artery disease) Associated angina: without angina Coronary Disease-Associated Artery/Lesion type: [place] artery [place] vs. transplanted heart: [place] heart Qualified Code(s): I25.10 - Atherosclerotic heart disease of [place] coronary artery without angina pectoris (4) Atrial fibrillation Atrial fibrillation type: permanent Qualified Code(s): I48.21 - Permanent atrial fibrillation (5) COPD (chronic obstructive pulmonary disease) COPD type: COPD with acute exacerbation Qualified Code(s): J44.1 - Chronic obstructive pulmonary disease with (acute) exacerbation (6) Hypertension Hypertension type: essential hypertension Qualified Code(s): I10 - Essential (primary) hypertension
[2020-04-12 21:46] LABS: Ferritin 73.9 ng/ml (8-388); Hematocrit (blood only) 32.6 % (42-52); Hemoglobin 10.1 g/dL (14.0-18.0); Mean Corpuscular Hemoglobin 30.8 pg (25-34); Mean Corpuscular Volume 99.4 fL (80-100); Mean Platelet Volume 11.1 fL (7.4-10.4); Platelet Count 209 K/uL (130-400); RDW Coefficient of Variation 23.4 % (11.5-14.5); RDW Standard Deviation 85.5 fL (36.4-46.3); Red Blood Count 3.28 M/uL (4.7-6.1); White Blood Count 6.96 K/uL (4.8-10.8)
[2020-04-12 21:47] LABS: Anisocytosis Present; Basophils # (auto) 0.05 K/uL (0-0.2); Basophils % (auto) 0.7 %; Eosinophils # (auto) 0.15 K/uL (0-0.5); Eosinophils % (auto) 2.2 %; Immature Granulocytes # (auto) 0.03 K/uL (0.00-0.02); Immature Granulocytes % (auto) 0.4 %; Lymphocytes # (auto) 1.65 K/uL (1.2-3.4); Lymphocytes % (auto) 23.7 %; Monocytes # (auto) 0.75 K/uL (0.11-0.59); Monocytes % (auto) 10.8 %; Neutrophils # (auto) 4.33 K/uL (1.4-6.5); Neutrophils % (auto) 62.2 %; Ovalocytes 1+; Platelet Estimate Normal (Normal)
[2020-04-12] MEDS ORDERED: ALBUTEROL HFA 8 GM INHALER INH PRN (22:03)
[2020-04-12] MEDS ORDERED: TRIAMCINOLONE ACET 0.1% CR 15 GM TUBE TOP PRN (22:03)
[2020-04-12] MEDS ORDERED: ALBUT/IPRATROP 3MG/0.5MG NEB 3 ML VIAL INH PRN (22:03)
[2020-04-13 01:25] LABS: BUN Creatinine Ratio 21.9 (10-20); Calcium 8.5 mg/dl (8.5-10.1); Est GFR (African American) 59.8; Est GFR (Non-African American) 51.6; Potassium 4.9 mmol/L (3.5-5.1)
[2020-04-13 05:01] LABS: Basophils # (auto) 0.02 K/uL (0-0.2); Basophils % (auto) 0.3 %; Eosinophils # (auto) 0.17 K/uL (0-0.5); Eosinophils % (auto) 2.9 %; Hemoglobin 9.5 g/dL (14.0-18.0); Lymphocytes # (auto) 1.17 K/uL (1.2-3.4); Mean Corpuscular Hemoglobin 31.4 pg (25-34); Mean Corpuscular Hgb Conc 30.6 g/dL (32-36); Mean Corpuscular Volume 102.3 fL (80-100); Mean Platelet Volume 11.3 fL (7.4-10.4); Monocytes # (auto) 0.66 K/uL (0.11-0.59); Monocytes % (auto) 11.3 %; Neutrophils # (auto) 3.82 K/uL (1.4-6.5); Neutrophils % (auto) 65.5 %; Platelet Count 209 K/uL (130-400); RDW Coefficient of Variation 23.6 % (11.5-14.5); RDW Standard Deviation 89.3 fL (36.4-46.3); Red Blood Count 3.03 M/uL (4.7-6.1); White Blood Count 5.84 K/uL (4.8-10.8)
[2020-04-13 05:26] LABS: BUN Creatinine Ratio 23.1 (10-20); Calcium 8.6 mg/dl (8.5-10.1); Creatinine Clr Calc Pharmacy 64.3 ml/min; Est GFR (African American) 63.8; Magnesium 2.4 mg/dl (1.8-2.4); Potassium 4.4 mmol/L (3.5-5.1)
[2020-04-13 05:30] LABS: Giant Platelets 1+; Ovalocytes 1+
[2020-04-13 05:45] LABS: Lyme Ab IgG w/WB Rflx Negative (Negative); Lyme Ab IgM w/WB Rflx Negative (Negative)
[2020-04-13] MEDS: ACETAMINOPHEN 500 MG TAB PO SCH ×3 (06:01→20:24)
--- NOTE | 2020-04-13 08:46 | Critical Care Progress Note ---
Date of Service April 13, 2020 Assessment & Plan (1) Admitted to intensive care unit: Impression: 74-year-old male with multiple comorbidities including heart failure, chronic kidney disease, sleep disordered breathing, COPD with chronic hypoxemic respiratory failure admitted with digoxin toxicity and heme positive stools. 24-hour events: Patient presented to the emergency room and was evaluated. Poison control was contacted and initially recommended administration of Digibind however after discussion with cardiology and the hospitalist was elected to proceed with conservative management. The patient has been monitored in the ICU overnight with no adverse effects. He initially had low blood pressure which resolved with IV fluids. He is without complaints this morning. Recommendations: 1. Neurologic: No current issues. 2. Cardiovascular: Acute hypotension likely secondary to volume depletion as well as digoxin overdose. Improved with IV fluids. He has had A. fib with a slow response but heart rates now appear to be in the 50s sustained and his blood pressure is better. Would continue telemetry. He does not appear to require Digibind. Think he is okay to transfer out of the ICU to the floor on telemetry status at this point time but will await cardiology input. With regards to his atrial fibrillation, would be reluctant to start beta-surjit until the digoxin has cleared. Anticoagulation may also be an issue given the questionable GI bleed so we will hold for now. Aspirin may be appropriate as there does not appear to be active ongoing bleeding. Continue lipid therapy 3. Pulmonary: Advanced COPD. Follows with ALEXANDRA Garrison in the pulmonary cl in. Oxygen dependent at baseline. Continue supplemental oxygen. He is not bronchospastic currently. Outpatient inhalers can be continued. He does have sleep disordered breathing and will continue nightly CPAP. 4. Renal: Acute on chronic renal insufficiency. Kidney function is improved with IV fluids. Continue to trend and follow electrolytes with appropriate repletion. Suspect some degree of prerenal/cardiorenal syndrome based on his low blood pressure on presentation. 5. GI: Questionable GI bleed. The patient reportedly had heme positive stools. He has declined GI evaluation for this in the past most recently a month ago. He is hemodynamically stable and his hemoglobin hematocrit of been stable so would defer endoscopy for now until his other issues are addressed. Holding anticoagulation for now. Okay to advance diet. 6. Endo: Glycemic control per protocol. 7. ID: No current issues. Continue to follow. 8. Goals of therapy: The patient was seen by palliative care during her hospitalization in January and plans were to go to [facility] and then presumably pursue home hospice. He states he was evaluated by hospice and told that he was doing so well that he did not need hospice. We readdressed CODE STATUS today and the patient confirms that he would want ACLS interventions and intubation if needed. 9. Patient appears appropriate to transfer out of the intensive care unit to the telemetry unit as he has been stable for over 12 hours now. Will await fo rmal cardiology consultation. We will sign off at this point time. Feel free to contact us if we can be of additional assistance. Admission and Anticipated Discharge Date Admission Date: April 12, 2020 Subjective Patient seen and examined. EMR reviewed. The patient reports that his breathing is stable. Used his CPAP last night. He is not experiencing any chest pain or palpitations. No dizziness or lightheadedness. He feels he is close to his baseline. Review of Systems Review of Systems: All systems reviewed & are unremarkable except as noted in HPI & below Physical Exam Constitutional: + morbidly obese; no acute distress and no altered mental status sitting in chair, best he has looked all week ENMT: external ear and nose normal, oropharynx normal Respiratory: Auscultation: + diminished lung sounds, + crackles (bases) and + wheezes (b/l - minimal ) Cardiovascular: Rate/Rhythm: regular rate and + irregularly irregular Heart Sounds: normal S1, normal S2 and + murmur (2/6 systolic LSB) Vessels: + JVD, posterior tibial pulses present and dorsalis pedis pulses present Ext remities: + edema (2+ b/l legs -- firm & hard) Gastrointestinal (Abdomen): normal bowel sounds, soft, nontender, no hepatosplenomegaly Inspection/Auscultation: + abdomen distended (with edema/ascites ) Skin: + pallor Psychiatric: Orientation: alert and oriented x 3 Results & Data Results & Data ([facility]) Vital Signs (Past 12 Hours) Vital Signs Temp Pulse Pulse Resp BP BP Pulse Ox 04/13/20 06:08 43 L 20 106/47 L 95 04/13/20 04:52 36.5 C 39 L 18 114/92 98 04/13/20 03:57 46 L 19 123/40 L 93 04/13/20 02:56 43 L 16 99/60 L 96 04/13/20 01:53 42 L 14 106/34 L 97 04/13/20 00:52 36.7 C 33 L 13 111/42 L 96 04/12/20 23:59 37 L 04/12/20 23:52 52 L 18 116/44 L 96 04/12/20 23:05 54 L 22 98 04/12/20 22:52 63 12 100/39 L 100 04/12/20 22:05 56 L 23 102/46 L 98 04/12/20 20:59 36.7 C 54 L 20 108/55 L 99 Laboratory Results 04/13/20 04:33 04/13/20 04:33 Diagnostic Findings Chest x-ray from yesterday was independently reviewed. Cardiomegaly is noted. Coarsening of the bronchovascular markings in the bilateral bases but no focal airspace opacity or pleural effusion noted. Small degree of blunting of the costophrenic angles bilaterally. Right shoulder replacement Coding Level of Care Code 25408 Subs Hosp Care Lvl 3 Diagnoses Admitted to intensive care unit Z78.9
[2020-04-13] MEDS: CALCIUM 600MG + VIT D 400 IU TAB PO SCH ×2 (08:47→20:24)
[2020-04-13] MEDS: CEROVITE ADV FORMULA TAB PO SCH (08:47)
[2020-04-13] MEDS: FLUTICASONE FUROATE 100MCG 14 PUFFS/INHALER INH SCH (08:47)
[2020-04-13] MEDS: DOCUSATE SODIUM 100 MG CAP PO SCH ×2 (08:47→20:24)
[2020-04-13] MEDS: UMECLIDINIUM/VILANTEROL 62.5/25MCG 7 PUFFS/INHALER INH SCH (08:47)
[2020-04-13] MEDS: CYANOCOBALAMIN 500 MCG TABLET (VITAMIN B-12) PO SCH (08:47)
[2020-04-13] MEDS: ATORVASTATIN 40 MG TAB PO SCH (08:48)
[2020-04-13] MEDS: PANTOprazole 40 MG TAB PO SCH (08:48)
[2020-04-13] MEDS ORDERED: OMEGA-3 (PURIFIED FISH OIL) 1 GM CAP PO SCH (09:00)
[2020-04-13 09:34] LABS: BUN Creatinine Ratio 21.9 (10-20); Calcium 9.5 mg/dl (8.5-10.1); Creatinine Clr Calc Pharmacy 63.3 ml/min; Est GFR (African American) 60.9; Est GFR (Non-African American) 52.6
--- NOTE | 2020-04-13 11:09 | Hospitalist Progress Note ---
Date of Service April 13, 2020 Assessment & Plan (1) Digoxin toxicity: 74 yo M PMHx CKD stage III, AFib, COPD, chronic hypercapnic respiratory failure, CAD, HTN, iron deficiency anemia presented with symptomatic hypotension and bradycardia from Cardiology office, and was found to have Digoxin toxicity. Digoxin toxicity with symptomatic bradycardia: - History of digoxin toxicity in the past requiring Digibind, and patient was discontinued from this medication on his January admission. - Electrolytes are stable, continue to monitor on Telemetry. - No further IV fluids given holding furosemide. Encourage PO fluid intake. - Poison control consulted while in ED; given stable blood pressure Digibind was deferred for now. - Cardiology consulted, appreciate recommendations. - Stable for transfer from ICU level of care to PCU/Telemetry floor. - He admits that he is unclear which medications he should take, and that he "takes whatever the bottles say to take" so it is likely that he was taking his previous Digoxin despite being advised to stop it. Spoke to on phone who does not participate in his medications in any way. She was unaware that his Digoxin was stopped. I advised her to dispose of this medication so as to prevent further accidental toxicity on discharge. XIOMY on CKD: - Creatinine 1.42, baseline 1.15. - Holding diuretics given XIOMY and low BP. - Encourage PO fluids. No IVF at this time. - BMP in AM. Hypotension: - As above with digoxin, patient's atenolol was changed to metoprolol in January, however patient reverted back to atenolol at home on discharge home. - Will discuss with Cardiology which medication will be appropriate on discharge, and discuss with family which medications to dispose of prior to patient going home. - Hold antihypertensives and beta blockers at this time. Atrial fibrillation: - Hold beta blockers given hypotension and bradycardia. - Have discussed home medications with . She could not find metoprolol at home, but did find atenolol 100mg daily. Will confer with Cardiology regarding transition to metoprolol on discharge once patient's bradycardia improves. Will advise on which medication will be appropriate for discharge tomorrow. - CHADS-VASc score 5, HAS-BLED score 2. Benefit outweighs risk regarding anti coagulation for AFib. Defer restarting Eliquis to Cardiology. ? Acute GI bleeding: - Heme positive stool in ED, with history of prior GI bleed. - Hgb stable this admission compared to baseline of ~10. - Has been offered endoscopy in the past but has declined. - Will hold Eliquis/Heparin at this time, defer to Cardiology regarding anticoagulation. - Does not appear to have acute GI bleed at this time. - Daily CBC. COPD (chronic obstructive pulmonary disease)/chronic hypercapnic respiratory failure/SHIRA: - On 4LNC at home at baseline with BiPAP at night. - Saturating well on baseline oxygen requirements. - Continue home inhalers. CAD (coronary artery disease), HLD: - EKG, troponin negative for acute ischemia. - Continue atorvastatin. - Will confer with Cardiology regarding baby aspirin for CAD. Code Status: FULL CODE FEN/GI: Heart Healthy, DM2 diet DVT ppx: SCDs, holding medical ppx at this time Dispo: transfer to Telemetry level of care from ICU today. Tele for continuous monitoring of bradycardia given Digoxin toxicity. PT/OT evaluations ordered. (2) Atrial fibrillation: (3) Acute kidney injury: (4) Chronic kidney disease (CKD): (5) Chronic respiratory failure with hypoxia and hypercapnia: (6) Sleep apnea, unspecified: (7) Hyperlipidemia: (8) COPD (chronic obstructive pulmonary disease): (9) CAD (coronary artery disease): (10) Iron deficiency anemia: (11) Hypertension: Admission and Anticipated Discharge Date Admission Date: April 12, 2020 Supervising Physician Co-Signing Physician Notes Resident Physician Supervision Note: I independently interviewed and examined the patient and verified the blancas history and physical, reviewed labs and image studies, discussed the case with the resident Dr. Salvador and agree with the findings and care plan. Subjective Patient without acute events overnight. Feels well this morning, albeit a bit fatigued. Feels like he "has more pep" as compared to yesterday. No subjective complaints of shortness of breath or chest pain, nausea or vomiting, abdominal pain. Review of Systems Review of Systems: All systems reviewed & are unremarkable except as noted in HPI & below Constitutional: no fever, no chills and no malaise Respiratory: no cough and no dyspnea (no change from baseline 4LNC) Cardiovascular: no chest pain, no palpitations and no edema Gastrointestinal: no abdominal pain, no constipation and no diarrhea/loose stools Physical Exam Constitutional: well developed and + morbidly obese; no acute distress Respiratory: poor air movement bilaterally bibasilar wheezes saturating well on baseline 4LNC Cardiovascular: 2/6 systolic murmur best heard over LUSB regular rate and rhythm 2+ pitting edema Gastrointestinal (Abdomen): Inspection/Auscultation: + abdomen distended and normal bowel sounds Percussion/Palpation: abdomen soft; abdomen nontender and no guarding Skin: no rashes, warm and dry Psychiatric: A+Ox3, euthymic affect Results & Data Results & Data ([facility]) Vital Signs (Past 12 Hours) Vital Signs Temp Pulse Resp BP Pulse Ox 04/13/20 10:00 40 L 23 96 04/13/20 09:52 40 L 21 125/55 L 96 04/13/20 08:53 44 L 22 115/39 L 96 04/13/20 08:00 36.5 C 21 93 04/13/20 07:52 18 109/41 L 92 04/13/20 07:00 47 L 12 96 04/13/20 06:08 43 L 20 106/47 L 95 04/13/20 04:52 36.5 C 39 L 18 114/92 98 04/13/20 03:57 46 L 19 123/40 L 93 04/13/20 02:56 43 L 16 99/60 L 96 04/13/20 01:53 42 L 14 106/34 L 97 04/13/20 00:52 36.7 C 33 L 13 111/42 L 96 04/12/20 23:59 37 L 04/12/20 23:52 52 L 18 116/44 L 96 Resident Activity Tracking Resident Involvement: Resident Care Provided Care Provided: Adult Hospital Medicine (1) Sleep apnea, unspecified Sleep apnea type: obstructive Qualified Code(s): G47.33 - Obstructive sleep apnea (adult) (pediatric) (2) Digoxin toxicity Encounter type: initial encounter Injury intent: accidental or unintentional Qualified Code(s): T46.0X1A - Poisoning by cardiac-stimulant glycosides and drugs of similar action, accidental (unintentional), initial encounter (3) CAD (coronary artery disease) Associated angina: without angina Coronary Disease-Associated Artery/Lesion type: [place] artery [place] vs. transplanted heart: [place] heart Qualified Code(s): I25.10 - Atherosclerotic heart disease of [place] coronary artery without angina pectoris (4) Atrial fibrillation Atrial fibrillation type: permanent Qualified Code(s): I48.21 - Permanent atrial fibrillation (5) Hyperlipidemia Hyperlipidemia type: unspecified Qualified Code(s): E78.5 - Hyperlipidemia, unspecified (6) Chronic kidney disease (CKD) Chronic kidney disease stage: stage 3 (moderate) Chronic kidney disease stage 3 subtype: stage 3a (GFR 45-59) Qualified Code(s): N18.31 - Chronic kidney disease, stage 3a (7) Iron deficiency anemia Iron deficiency anemia type: unspecified iron deficiency Qualified Code(s): D 50.9 - Iron deficiency anemia, unspecified (8) COPD (chronic obstructive pulmonary disease) COPD type: COPD with acute exacerbation Qualified Code(s): J44.1 - Chronic obstructive pulmonary disease with (acute) exacerbation (9) Hypertension Hypertension type: essential hypertension Qualified Code(s): I10 - Essential (primary) hypertension
[2020-04-13 12:41] LABS: Hematocrit (blood only) 33.3 % (42-52); Hemoglobin 9.9 g/dL (14.0-18.0); Mean Corpuscular Hemoglobin 30.7 pg (25-34); Mean Corpuscular Hgb Conc 29.7 g/dL (32-36); Mean Corpuscular Volume 103.1 fL (80-100); Mean Platelet Volume 11.1 fL (7.4-10.4); Platelet Count 226 K/uL (130-400); RDW Coefficient of Variation 23.6 % (11.5-14.5); RDW Standard Deviation 88.9 fL (36.4-46.3); Red Blood Count 3.23 M/uL (4.7-6.1)
[2020-04-13 12:46] LABS: Anisocytosis Present; Basophils # (auto) 0.02 K/uL (0-0.2); Basophils % (auto) 0.3 %; Eosinophils # (auto) 0.14 K/uL (0-0.5); Eosinophils % (auto) 2.3 %; Giant Platelets 1+; Immature Granulocytes # (auto) 0.01 K/uL (0.00-0.02); Immature Granulocytes % (auto) 0.2 %; Lymphocytes # (auto) 1.14 K/uL (1.2-3.4); Lymphocytes % (auto) 18.4 %; Monocytes # (auto) 0.69 K/uL (0.11-0.59); Monocytes % (auto) 11.1 %; Neutrophils % (auto) 67.7 %; Ovalocytes 1+; Polychromasia 1+
[2020-04-13 13:00] LABS: BUN Creatinine Ratio 20.4 (10-20); Calcium 9.3 mg/dl (8.5-10.1); Creatinine Clr Calc Pharmacy 59.7 ml/min; Est GFR (African American) 56.8; Potassium 4.9 mmol/L (3.5-5.1)
[2020-04-13] MEDS ORDERED: HEPARIN SOD 5,000 UNIT/0.5 ML VIAL SQ SCH (14:00)
[2020-04-13 17:29] LABS: BUN Creatinine Ratio 21.5 (10-20); Calcium 9.2 mg/dl (8.5-10.1); Creatinine Clr Calc Pharmacy 60.6 ml/min; Est GFR (African American) 57.8; Est GFR (Non-African American) 49.8; Potassium 4.9 mmol/L (3.5-5.1)
[2020-04-13] MEDS ORDERED: APIXABAN 5 MG TABLET PO SCH (21:00)
[2020-04-14] MEDS: ACETAMINOPHEN 500 MG TAB PO SCH ×3 (06:44→21:04)
[2020-04-14 07:31] LABS: Basophils # (auto) 0.02 K/uL (0-0.2); Basophils % (auto) 0.4 %; Eosinophils # (auto) 0.17 K/uL (0-0.5); Eosinophils % (auto) 3.1 %; Hematocrit (blood only) 30.2 % (42-52); Hemoglobin 9.2 g/dL (14.0-18.0); Immature Granulocytes # (auto) 0.01 K/uL (0.00-0.02); Immature Granulocytes % (auto) 0.2 %; Lymphocytes # (auto) 0.95 K/uL (1.2-3.4); Lymphocytes % (auto) 17.4 %; Mean Corpuscular Hemoglobin 31.3 pg (25-34); Mean Corpuscular Hgb Conc 30.5 g/dL (32-36); Mean Corpuscular Volume 102.7 fL (80-100); Mean Platelet Volume 11.1 fL (7.4-10.4); Monocytes # (auto) 0.72 K/uL (0.11-0.59); Monocytes % (auto) 13.2 %; Neutrophils # (auto) 3.58 K/uL (1.4-6.5); Neutrophils % (auto) 65.7 %; Platelet Count 200 K/uL (130-400); RDW Coefficient of Variation 23.3 % (11.5-14.5); RDW Standard Deviation 88.1 fL (36.4-46.3); Red Blood Count 2.94 M/uL (4.7-6.1); White Blood Count 5.45 K/uL (4.8-10.8)
[2020-04-14 07:49] LABS: Macrocytosis Present; Ovalocytes 1+; Polychromasia 1+
[2020-04-14] MEDS: UMECLIDINIUM/VILANTEROL 62.5/25MCG 7 PUFFS/INHALER INH SCH (07:50)
[2020-04-14] MEDS: DOCUSATE SODIUM 100 MG CAP PO SCH ×2 (07:51→21:04)
[2020-04-14] MEDS: CYANOCOBALAMIN 500 MCG TABLET (VITAMIN B-12) PO SCH (07:51)
[2020-04-14] MEDS: FLUTICASONE FUROATE 100MCG 14 PUFFS/INHALER INH SCH (07:51)
[2020-04-14] MEDS: CALCIUM 600MG + VIT D 400 IU TAB PO SCH ×2 (07:52→21:04)
[2020-04-14] MEDS: CEROVITE ADV FORMULA TAB PO SCH (07:52)
[2020-04-14] MEDS: PANTOprazole 40 MG TAB PO SCH (07:52)
[2020-04-14] MEDS: ATORVASTATIN 40 MG TAB PO SCH (07:52)
[2020-04-14 08:00] LABS: Calcium 9.4 mg/dl (8.5-10.1); Est GFR (African American) 77.3; Est GFR (Non-African American) 66.7; Magnesium 2.5 mg/dl (1.8-2.4); Potassium 4.5 mmol/L (3.5-5.1)
--- NOTE | 2020-04-14 08:11 | Hospitalist Progress Note ---
Date of Service April 14, 2020 Assessment & Plan (1) Digoxin toxicity: 74 yo M PMHx CKD stage III, AFib, COPD, chronic hypercapnic respiratory failure, CAD, HTN, iron deficiency anemia presented with symptomatic hypotension and bradycardia from Cardiology office, and was found to have Digoxin toxicity. Digoxin toxicity with symptomatic bradycardia: - History of digoxin toxicity in the past requiring Digibind, and patient was discontinued from Digoxin on his January admission. - Electrolytes are stable, continue to monitor on Telemetry. - No further IV fluids given holding furosemide. - Poison control consulted while in ED; given stable blood pressure Digibind was deferred. - Continue PCU Telemetry for continuous cardiac monitoring given intermittent HR in 30s. - Suspect 1-2 days for Digoxin to clear, especially given patient's CKD. Watchful waiting for now. - He admits that he is unclear which medications he should take, and that he "takes whatever the bottles say to take" so it is likely that he was taking his previous Digoxin despite being advised to stop it. Spoke to on phone who does not participate in his medications in any way. She was unaware that his Digoxin was stopped. I advised her to dispose of this medication so as to prevent further accidental toxicity on discharge. - Cardiology consulted, appreciate recommendations. XIOMY on CKD: - Creatinine 1.42 on admission, has since decreased to 1.1 0 which is his baseline. - Consider resuming diuretics tomorrow given fluid overload. - Encourage PO fluids. No IVF at this time. - BMP in AM. Hypotension: - As above with digoxin, patient's atenolol was changed to metoprolol in January, however patient reverted back to atenolol at home on discharge home. - Hold antihypertensives and beta blockers at this time. - Will likely defer restarting beta blockers this admission and instead have patient follow up in short order with Dr. Luna in the outpatient setting. Atrial fibrillation: - Holding beta blockers given hypotension and bradycardia. - Have discussed home medications with . She could not find metoprolol at home, but did find atenolol 100mg daily. Will confer with Cardiology regarding transition to metoprolol on discharge once patient's bradycardia improves. Will advise on which medication will be appropriate for discharge tomorrow. - CHADS-VASc score 5, HAS-BLED score 2. Benefit outweighs risk regarding anticoagulation for AFib. Will resume Eliquis today. ? Acute GI bleeding: - Heme positive stool in ED, with history of prior GI bleed. - Hgb stable this admission and near baseline of ~10. - Has been offered endoscopy in the past but has declined. - Does not appear to have acute GI bleed at this time, no bloody BM, no change in Hgb. - Daily CBC. COPD (chronic obstructive pulmonary disease)/chronic hypercapnic respiratory failure/SHIRA: - On 4LNC at home at baseline with BiPAP at night. - Saturating well on baseline oxygen requirements. - Continue home inhalers. CAD (coronary artery disease), HLD: - EKG, troponin negative for acute ischemia. - Continue atorvastatin. - Consider baby asa for CAD. Code Status: FULL CODE FEN/GI: Heart Healthy, DM2 diet DVT ppx: Eliquis 5mg BID Dispo: Telemetry for continuous cardiac monitoring given Digoxin toxicity and bradycardia Admission and Anticipated Discharge Date Admission Date: April 12, 2020 Supervising Physician Co-Signing Physician Notes Resident Physician Supervision Note: I independently interviewed and examined the patient and verified the blancas history and physical, reviewed labs and image studies, discussed the case with the resident Dr. Salvador and agree with the findings and care plan. Subjective Patient without acute events overnight. Continues to be bradycardic to 40-50s, however feels more well today than yesterday and day before. Denies shortness of breath, chest pain, nausea, abdominal pain, dizziness, headache. Review of Systems Review of Systems: no fever, no chills and no malaise no cough and no dyspnea (no change from baseline 4LNC) no chest pain, no palpitations and no edema no abdominal pain, no constipation and no diarrhea/loose stools Physical Exam Constitutional: well developed and + morbidly obese; no acute distress Respiratory: poor air movement bilaterally bibasilar wheezes saturating well on baseline 4LNC Cardiovascular: Rate/Rhythm: regular rhythm and + bradycardic Heart Sounds: + murmur (2/6, systolic) Extremities: + edema (2+ pitting, bilateral LE) Gastrointestinal (Abdomen): Inspection/Auscultation: + abdomen distended and normal bowel sounds Percussion/Palpation: abdomen soft; abdomen nontender and no guarding Skin: no rashes, warm and dry Psychiatric: A+Ox3, euthymic affect Results & Data Results & Data ([facility]) Vital Signs (Past 12 Hours) Vital Signs Temp Pulse Pulse Resp BP BP Pulse Ox 04/14/20 07:59 36.5 C 52 L 20 122/52 L 94 04/14/20 07:00 36.8 C 103 H 20 125/70 96 04/14/20 04:00 36.7 C 56 L 20 145/71 H 95 04/14/20 02:10 80 18 95 04/14/20 00:14 37 C 45 L 18 127/56 L 95 04/13/20 23:00 51 L 04/13/20 22:25 56 L 18 94 Resident Activity Tracking Resident Involvement: Resident Care Provided Care Provided: Adult Hospital Medicine (1) Digoxin toxicity Encounter type: initial encounter Injury intent: accidental or unintentional Qualified Code(s): T46.0X1A - Poisoning by cardiac-stimulant glycosides and drugs of similar action, accidental (unintentional), initial encounter
--- NOTE | 2020-04-14 15:12 | Cardiology Progress Note ---
Date of Service April 13, 2020 Assessment & Plan (1) Bradycardia: His current bradycardia is almost certainly due to excessive AV jamilah blocking medications which include high-dose beta-blockade on admission and digoxin. Agree with withholding both of these medications for now. We could give Digibind, since he is doing adequately well hemodynamically I do not think we need to although with his renal insufficiency it will take a long time to excrete the digoxin. The beta-surjit should be metabolized more quickly. I would continue to observe. (2) Digoxin toxicity: His digoxin level is markedly elevated and his electrocardiogram is consi stent with AV block potentiated by dig toxicity. Digibind would probably help, however will still take a long time to eliminate the bound digoxin from his system and observation should be sufficient. (3) Atrial fibrillation with slow ventricular response: He remains in atrial fibrillation, his heart rate is slow but he is not in heart block (as evidenced by an irregular rhythm). Ideally he would be anticoagulated. (4) Current use of senior care anticoagulation: He does have a high [id number] score, and he should be on an anticoagulant if possible. We can hold it temporarily but we should make a decision as to whether to restart in the near future. That would be determined by his bleeding risk, from the cardiac standpoint he should be on an anticoagulant. Eliquis is probably the safest in this regard. Admission and Anticipated Discharge Date Admission Date: April 12, 2020 Subjective This is a 74-year-old male with a history of atrial fibrillation and coronary artery disease including stent placement in the past. He presented with volume overload in January 2020, his ejection fraction was greater than 70% with normal right ventricular systolic function and he had an elevated troponin felt secondary to demand ischemia. He was discharged on March 04, 2020 to [facility]. His medications had been adjusted during the hospitalization and at [facility] however upon discharge from [facility] he went back to a lot of his prior medications which included atenolol 200 mg twice a day and digoxin. He saw Dr. Luna in the office on April 12, 2020 where his heart rate was in the 40s, his blood pressure was slightly low at 106/54 and his weight had increased. He was on apixaban for atrial fibrillation and was having bright red blood in the toilet bowl. He was therefore sent to the hospital. He was evaluated in the emergency room on April 12, 2020 where he confirmed that he was having rectal bleeding and additionally stated that his induction dose had been increased over the prior several weeks. He was in atrial fibrillation with a very slow heart rate. His digoxin level of 3.9, consideration had been given to giving Digibind however he was hemodynamically stable and that was not done. He was in atrial fibrillation. Although he reported rectal bleeding his hemoglobin was stable but in the emergency room I believe he did have heme positive stools. His Eliquis is on hold. Today he tells me he feels well, he does not have lightheadedness or dizziness, he does not seem to be aware that his heart rate is slow. He does note that he has significant peripheral edema. Physical Exam Physical Exam: Constitutional: Alert, cooperative and in no distress. HEENT: Unremarkable Neck: No jugular venous distention, carotid pulses are irregular and slow but otherwise normal and equal bilaterally without bruits. Pulmonary: Clear to auscultation bilaterally. Cardiac: Irregular slow rhythm with no murmur, gallop or rub. Abdomen: Soft, nontender with normal bowel sounds. Extremities: +3 bilateral pretibial edema. Distal pulses difficult to feel. Neurologic: No focal findings. Gait was not tested. Skin: No rash, ecchymoses or petechiae. Results & Data ([facility]) Vital Signs (Past 12 Hours) Vital Signs Temp Pulse Resp BP Pulse Ox 04/13/20 15:52 36.8 C 35 L 22 112/51 L 97 04/13/20 15:30 46 L 04/13/20 14:52 36.9 C 46 L 23 126/42 L 96 04/13/20 13:50 43 L 20 115/34 L 94 04/13/20 12:52 44 L 26 H 121/35 L 04/13/20 12:00 36.7 C 35 L 26 H 04/13/20 11:52 41 L 20 111/50 L 04/13/20 11:12 39 L 19 117/66 96 04/13/20 10:53 40 L 20 105/62 96 04/13/20 10:00 40 L 23 96 04/13/20 09:52 40 L 21 125/55 L 96 04/13/20 08:53 44 L 22 115/39 L 96 04/13/20 08:00 36.5 C 21 93 04/13/20 07:52 18 109/41 L 92 04/13/20 07:00 47 L 12 96 04/13/20 06:08 43 L 20 106/47 L 95 PG Care Time/CCT Total # of Minutes Spent Total Time Spent with Patient: Total time spent is greater than 50% in coordination of care (as documented) at patient's floor/unit and/or counseling patient: Coding Level of Care Code 92385 Subseq Hosp Care Lvl 3 Diagnoses Bradycardia R00.1 Digoxin toxicity T46.0X1A Encounter type: initial encounter Injury intent: accidental or unintentional Atrial fibrillation with slow ventricular response I48.91 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
--- NOTE | 2020-04-14 15:34 | Cardiology Progress Note ---
Date of Service April 14, 2020 Assessment & Plan (1) Bradycardia: His current bradycardia is almost certainly due to excessive AV jamilah blocking medications which include high-dose beta-blockade on admission and digoxin. Agree with withholding both of these medications for now. We could give Digibind, since he is doing adequately well hemodynamically I do not think we need to although with his renal insufficiency it will take a long time to excrete the digoxin. His level has dropped down to 2.9 today, from 3.9, and will likely take several more days to get below 2. The beta-surjit should be metabolized more quickly and is probably mostly out of his system. I would continue to observe. I am not surprised his heart rate is not increased much with that level of dig toxicity. (2) Digoxin toxicity: His digoxin level was markedly elevated and his electrocardiogram is consistent with AV jamilah block potentiated by dig toxicity. Digibind would probably help his heart rate, however will still take a long time to eliminate the bound digoxin from his system and observation should be sufficient. It will be important to try to keep him from taking digoxin in the future, I do not know if he was supposed to be on a low dose or not but I would avoid it altogether. There is a second time he has been admitted with dig toxicity. (3) Atrial fibrillation with slow ventricular response: He remains in atrial fibrillation, his heart rate is slow but he is not in heart block (as evidenced by an irregular rhythm). Ideally he would be anticoagulated. (4) Current use of group home anticoagulation: He does have a high [id number] score, and he should be on an anticoagulant if possible. We can hold it temporarily but we should make a decision as to whether to restart in the near future. That would be determined by his bleeding risk, from the cardiac standpoint he should be on an anticoagulant. Eliquis is probably the safest in this regard. (5) Edema: He has quite significant lower extremity edema. Part of that might be from sitting in a chair with his feet down a great deal the time, however I bel ieve he is fluid overloaded. His kidney function has improved since admission, probably in part by improved kidney perfusion even though his heart rate has not increased substantially as yet. We should try removal of some fluid. He is not currently on a diuretic, I would recommend introducing 1 at least by tomorrow to see whether we can remove some of his fluid. His weight is up about 8 kg over what looks like his dry weight during his last admission. Admission and Anticipated Discharge Date Admission Date: April 12, 2020 Subjective This is a 74-year-old male with a history of atrial fibrillation and coronary artery disease including stent placement in the past. He presented with volume overload in January 2020, his ejection fraction was greater than 70% with normal right ventricular systolic function and he had an elevated troponin felt secondary to demand ischemia. He was discharged on March 04, 2020 to [facility]. His medications had been adjusted during the hospitalization and at [facility] however upon discharge from [facility] he went back to a lot of his prior medications which included atenolol 200 mg twice a day and digoxin. He saw Dr. Luna in the office on April 12, 2020 where his heart rate was in the 40s, his blood pressure was slightly low at 106/54 and his weight had increased. He was on apixaban for atrial fibrillation and was reportedly having bright red blood in the toilet bowl. He was therefore sent to the hospital. He was evaluated in the emergency room on April 12, 2020 where he confirmed that he was having rectal bleeding and additionally stated that his digoxin dose had been increased over the prior several weeks. He was in atrial fibrillation with a very slow heart rate. His digoxin level of 3.9, consideration had been given to giving Digibind however he was hemodynamically stable and that was not done. He was in atrial fibrillation. Although he reported rectal bleeding his hemoglobin was stable but in the emergency room I believe he did have heme positive stools. His Eliquis is on hold. He tells me he is feeling well although he is sitting at his bedside and has not been active. He does not have lightheadedness or dizziness, he is not aware of his heart rate and he has no chest discomfort or other cardiovascular symptoms. Physical Exam Physical Exam: Constitutional: Alert, cooperative and in no distress. HEENT: Unremarkable Neck: No jugular venous distention, carotid pulses are irregular and slow but otherwise normal and equal bilaterally without bruits. Pulmonary: Clear to auscultation bilaterally. Cardiac: Irregular slow rhythm with no murmur, gallop or rub. Abdomen: Soft, nontender with normal bowel sounds. Extremities: +3 bilateral pretibial edema. Distal pulses difficult to feel. Neurologic: No focal findings. Gait was not tested. Skin: No rash, ecchymoses or petechiae. Results & Data ([facility]) Vital Signs (Past 12 Hours) Vital Signs Temp Pulse Pulse Resp BP BP Pulse Ox 04/14/20 15:07 36.5 C 43 L 17 103/48 L 100 04/14/20 11:47 36.5 C 43 L 22 116/90 99 04/14/20 08:00 51 L 04/14/20 07:59 36.5 C 52 L 20 122/52 L 94 04/14/20 07:00 36.8 C 103 H 20 125/70 96 04/14/20 04:00 36.7 C 56 L 20 145/71 H 95 Laboratory Results CBC 04/14/20 Range/Units 07:04 WBC 5.45 (4.8-10.8) K/uL RBC 2.94 L (4.7-6.1) M/uL Hgb 9.2 L (14.0-18.0) g/dL Hct 30.2 L (42-52) % Plt Count 200 (130-400) K/uL Neut # (Auto) 3.58 (1.4-6.5) K/uL Lymph # (Auto) 0.95 L (1.2-3.4) K/uL [place] # (Auto) 0.72 H (0.11-0.59) K/uL Eos # (Auto) 0.17 (0-0.5) K/uL Baso # (Auto) 0.02 (0-0.2) K/uL Comprehensive Metabolic Panel 04/13/20 04/14/20 Range/Units 16:53 07:04 Sodium 143 143 (136-145) mmol/L Potassium 4.9 4.5 (3.5-5.1) mmol/L Chloride 108 H 107 (98-107) mmol/L Carbon Dioxide 28 32 (21-32) mmol/L BUN 30 H 26 H (7-18) mg/dl Creatinine 1.40 1.10 D (0.6-1.4) mg/dl Glucose 115 H 114 H (70-99) mg/dl Calcium 9.2 9.4 (8.5-10.1) mg/dl Intake and Output 01/14/21 01/14/21 01/14/21 06:59 14:59 22:59 Intake Total 200 / 1120 720 / 720 Output Total 150 / 601 50 / 50 Balance 50 / 519 720 / 670 -50 / 670 Intake: Oral 200 / 1120 720 / 720 Output: Urine 150 / 600 50 / 50 Other: Weight 125.7 kg Diagnostic Findings Telemetry: Atrial fibrillation with a slow heart rate, averaging around 40 bpm. PG Care Time/CCT Total # of Minutes Spent Total Time Spent with Patient: Total time spent is greater than 50% in coordination of care (as documented) at patient's floor/unit and/or counseling patient: Coding Level of Care Code 48710 Subseq Hosp Care Lvl 3 Diagnoses Bradycardia R00.1 Digoxin toxicity T46.0X1A Encounter type: initial encounter Injury intent: accidental or unintentional Atrial fibrillation with slow ventricular response I48.91 Current use of extermination supervisor anticoagulation Z79.01 Edema R60.9 (1) Digoxin toxicity Encounter type: initial encounter Injury intent: accidental or unintentional Qualified Code(s): T46.0X1A - Poisoning by cardiac-stimulant glycosides and drugs of similar action, accidental (unintentional), initial encounter
[2020-04-14] MEDS: APIXABAN 5 MG TABLET PO SCH (21:05)
[2020-04-15] MEDS: ACETAMINOPHEN 500 MG TAB PO SCH ×3 (05:57→20:12)
[2020-04-15 06:41] LABS: Hematocrit (blood only) 30.4 % (42-52); Hemoglobin 9.4 g/dL (14.0-18.0); Mean Corpuscular Hemoglobin 31.5 pg (25-34); Mean Corpuscular Hgb Conc 30.9 g/dL (32-36); Mean Platelet Volume 10.6 fL (7.4-10.4); Platelet Count 207 K/uL (130-400); RDW Coefficient of Variation 23.2 % (11.5-14.5); RDW Standard Deviation 87.3 fL (36.4-46.3); Red Blood Count 2.98 M/uL (4.7-6.1)
[2020-04-15 07:15] LABS: BUN Creatinine Ratio 24.1 (10-20); Calcium 9.2 mg/dl (8.5-10.1); Creatinine Clr Calc Pharmacy 96.9 ml/min; Est GFR (African American) 99.9; Est GFR (Non-African American) 86.2; Magnesium 2.5 mg/dl (1.8-2.4); Potassium 4.4 mmol/L (3.5-5.1)
[2020-04-15] MEDS: FLUTICASONE FUROATE 100MCG 14 PUFFS/INHALER INH SCH (09:01)
[2020-04-15] MEDS: UMECLIDINIUM/VILANTEROL 62.5/25MCG 7 PUFFS/INHALER INH SCH (09:01)
[2020-04-15] MEDS: CYANOCOBALAMIN 500 MCG TABLET (VITAMIN B-12) PO SCH (09:02)
[2020-04-15] MEDS: PANTOprazole 40 MG TAB PO SCH (09:02)
[2020-04-15] MEDS: CALCIUM 600MG + VIT D 400 IU TAB PO SCH ×2 (09:02→20:12)
[2020-04-15] MEDS: CEROVITE ADV FORMULA TAB PO SCH (09:02)
[2020-04-15] MEDS: ATORVASTATIN 40 MG TAB PO SCH (09:02)
[2020-04-15] MEDS: APIXABAN 5 MG TABLET PO SCH ×2 (09:02→20:12)
[2020-04-15] MEDS: DOCUSATE SODIUM 100 MG CAP PO SCH ×2 (09:05→20:13)
--- NOTE | 2020-04-15 10:28 | Cardiology Progress Note ---
Date of Service April 15, 2020 Assessment & Plan (1) Bradycardia: His current bradycardia is almost certainly due to excessive AV jamilah blocking medications which include high-dose beta-blockade on admission and digoxin. Agree with withholding both of these medications for now. His digoxin level has dropped down to 1.8 today, from 3.9, and will continue to drop fairly quickly now that is renal function has improved. The beta-surjit should be metabolized more quickly and is probably out of his system. I would continue to observe. If possible I would send him home without beta-blockade and without digoxin, we should know over the next day or 2 whether his heart rate can sustain that. He did have some bradycardia during the night but that is acceptable. (2) Digoxin toxicity: His digoxin level was markedly elevated and his electrocardiogram was consistent with AV jamilah block potentiated by dig toxicity. That has substantially improved now that his digoxin level is dropping. It will be important to try to keep him from taking digoxin in the future, I do not know if he was supposed to be on a low dose or not but I would avoid it altogether going forward. I tried to discuss it with him but he is very confused and told me fabiano t in July 2019 he was told to go up to a higher dose, long before it was discontinued several months ago. There is a second time he has been admitted with dig toxicity. (3) Atrial fibrillation with slow ventricular response: He remains in atrial fibrillation, his heart rate is slow but he was not in heart block (as evidenced by an irregular rhythm). Ideally he would be anticoagulated. (4) Current use of skilled nursing anticoagulation: He does have a high [id number] score, and he should be on an anticoagulant if possible. We can hold it temporarily but we should make a decision as to whether to restart in the near future. That would be determined by his bleeding risk, from the cardiac standpoint he should be on an anticoagulant. Eliquis is probably the safest in this regard. (5) Edema: He has quite significant lower extremity edema. Part of that might be f rom sitting in a chair with his feet down a great deal the time, however he is fluid overloaded and his weight is increasing. His kidney function has improved markedly since admission, probably in part by improved kidney perfusion. We should try removal of some fluid. He is not currently on a diuretic, I would recommend introducing it today to see whether we can remove some of his fluid. Admission and Anticipated Discharge Date Admission Date: April 12, 2020 Subjective This is a 74-year-old male with a history of atrial fibrillation and coronary artery disease including stent placement in the past. He presented with volume overload in January 2020, his ejection fraction was greater than 70% with normal right ventricular systolic function and he had an elevated troponin felt secondary to demand ischemia. He was discharged on March 04, 2020 to [facility]. His medications had been adjusted during the hospitalization and at [facility] however upon discharge from [facility] he went back to a lot of his prior medications which included atenolol 200 mg twice a day and digoxin. He saw Dr. Luna in the office on April 12, 2020 where his heart rate was in the 40s, his blood pressure was slightly low at 106/54 and his weight had increased. He was on apixaban for atrial fibrillation and was reportedly having bright red blood in the toilet bowl. He was therefore sent to the hospital. He was evaluated in the emergency room on April 12, 2020 where he confirmed that he was having rectal bleeding and additionally stated that his digoxin dose had been increased over the prior several weeks. He was in atrial fibrillation with a very slow heart rate. His digoxin level of 3.9, consideration had been given to giving Digibind however he was hemodynamically stable and that was not done. He was in atrial fibrillation. Although he reported rectal bleeding his hemoglobin was stable but in the emergency room I believe he did have heme positive stools. His Eliquis is on hold. He seems to be doing well this morning, he was very hard to arouse as he was sleeping in his bedside chair. Once aroused he was conversational. He told me he did not sleep well last night. He is not having lightheadedness, dizziness or palpitations. He is aware that his legs are very edematous. Physical Exam Physical Exam: Constitutional: Alert, cooperative and in no distress. HEENT: Unremarkable Neck: No jugular venous distention, carotid pulses are irregular and slow but otherwise normal and equal bilaterally without bruits. Pulmonary: Clear to auscultation bilaterally. Cardiac: Irregular somewhat slow rhythm with no murmur, gallop or rub. Abdomen: Soft, nontender with normal bowel sounds. Extremities: +3 bilateral pretibial edema. Distal pulses difficult to feel. Neurologic: No focal findings. Gait was not tested. Skin: No rash, ecchymoses or petechiae. Results & Data ([facility]) Vital Signs (Past 12 Hours) Vital Signs Temp Pulse Pulse Resp BP Pulse Ox 04/15/20 07:52 36.5 C 68 18 145/62 H 98 04/15/20 03:09 36.3 C L 52 L 18 146/68 H 97 04/15/20 02:49 63 18 93 04/14/20 23:15 36.9 C 54 L 18 121/74 96 04/14/20 22:43 100 H 20 95 Laboratory Results CBC 04/15/20 Range/Units 06:27 WBC 6.00 (4.8-10.8) K/uL RBC 2.98 L (4.7-6.1) M/uL Hgb 9.4 L (14.0-18.0) g/dL Hct 30.4 L (42-52) % Plt Count 207 (130-400) K/uL Comprehensive Metabolic Panel 04/15/20 Range/Units 06:27 Sodium 143 (136-145) mmol/L Potassium 4.4 (3.5-5.1) mmol/L Chloride 107 (98-107) mmol/L Carbon Dioxide 33 H (21-32) mmol/L BUN 21 H (7-18) mg/dl Creatinine 0.87 (0.6-1.4) mg/dl Glucose 106 H (70-99) mg/dl Calcium 9.2 (8.5-10.1) mg/dl Intake and Output 04/14/20 04/15/20 04/15/20 22:59 06:59 14:59 Intake Total 240 / 960 Output Total 351 / 451 100 / 451 Balance -111 / 509 -100 / 509 Intake: Oral 240 / 960 Output: Urine 350 / 450 100 / 450 # Bowel Movements Other: # Unmeasured Voids 1 Weight 127.4 kg Diagnostic Findings Telemetry: Atrial fibrillation, heart rate averaging about 50 bpm this morning. Improved. PG Care Time/CCT Total # of Minutes Spent Total Time Spent with Patient: Total time spent is greater than 50% in coordination of care (as documented) at patient's floor/unit and/or counseling patient: Coding Level of Care Code 88315 Subseq Hosp Care Lvl 2 Diagnoses Bradycardia R00.1 Digoxin toxicity T46.0X1A Encounter type: initial encounter Injury intent: accidental or unintentional Atrial fibrillation with slow ventricular response I48.91 Current use of skilled nursing anticoagulation Z79.01 Edema R60.9 (1) Digoxin toxicity Encounter type: initial encounter Injury intent: accidental or unintentional Qualified Code(s): T46.0X1A - Poisoning by cardiac-stimulant glycosides and drugs of similar action, accidental (unintentional), initial encounter
--- NOTE | 2020-04-15 10:37 | Hospitalist Progress Note ---
Date of Service April 15, 2020 Assessment & Plan (1) Digoxin toxicity: 74 yo M PMHx CKD stage III, AFib, COPD, chronic hypercapnic respiratory failure, CAD, HTN, iron deficiency anemia presented with symptomatic hypotension and bradycardia from Cardiology office, and was found to have Digoxin toxicity. Digoxin toxicity with symptomatic bradycardia: - History of digoxin toxicity in the past requiring Digibind, and patient was discontinued from Digoxin on his January admission. - Electrolytes are stable, continue to monitor on Telemetry. - Poison control consulted while in ED; given stable blood pressure Digibind was deferred. - Continue PCU Telemetry for continuous cardiac monitoring given intermittent HR in 30s. - HR braycardic to low 30s overnight while sleeping, but 50s while awake. Watchful waiting for now. - Patient's spouse disposed of Digoxin at home; will defer resumption of beta surjit to Cardiology in outpatient setting. - Cardiology consulted, appreciate recommendations. Acute on chronic diastolic heart failure: - Sec to holding home lasix because of XIOMY and receiving IV hydration - Resumed home lasix - follow I and Os XIOMY on CKD: - Creatinine 1.42 on admission, has since returned to baseline. - Will resume his home diuretic dosing given peripheral edema. - Encourage PO fluids. No IVF at this time. - BMP daily while admitted. Hypotension: - As above with digoxin, patient's atenolol was changed to metoprolol in January, however patient reverted back to atenolol at home on discharge home. - Hold antihypertensives and beta blockers at this time. - Will defer restarting beta blockers this admission and instead have patient follow up in short order with Dr. Luna in the outpatient setting. Atrial fibrillation: - Holding beta blockers given bradycardia. - CHADS-VASc score 5, HAS-BLED score 2. Benefit outweighs risk regarding anticoagulation for AFib. Continue Eliquis. ? Acute GI bleeding: - Heme positive stool in ED, with history of prior GI bleed. - Hgb stable this admission and near baseline of ~10. - Has been offered endoscopy in the past but has declined. - Does not appear to have acute GI bleed at this time, no bloody BM, no change in Hgb. - Daily CBC. Worsening Lower Extremity Edema: - Seemingly dependent edema as patient's fluid in legs worsening with gravity. - Encourage leg wrapping. - Resume home Lasix 40mg PO BID, and reevaluate in morning. COPD (chronic obstructive pulmonary disease)/chronic hypercapnic respiratory viky lure/SHIRA: - On 4LNC at home at baseline with BiPAP at night. - Saturating well on baseline oxygen requirements. - Continue home inhalers. CAD (coronary artery disease), HLD: - EKG, troponin negative for acute ischemia. - Continue atorvastatin. - Consider baby asa for CAD. Code Status: FULL CODE FEN/GI: Heart Healthy, DM2 diet DVT ppx: Eliquis 5mg BID Dispo: Telemetry for continuous cardiac monitoring given Digoxin toxicity and bradycardia (2) Atrial fibrillation: Admission and Anticipated Discharge Date Admission Date: April 12, 2020 Supervising Physician Co-Signing Physician Notes Resident Physician Supervision Note: I independently interviewed and examined the patient and verified the blancas history and physical, reviewed labs and image studies, discussed the case with the resident Dr. Salvador and agree with the findings and care plan. Subjective Patient with HR low 30s while sleeping, asymptomatic; 50s during the day. Feeling well and without complaints today, no chest pain, SOB, abdominal pain. Reports worse swelling in bilateral LE. Review of Systems Review of Systems: no fever, no chills and no malaise no cough and no dyspnea (no change from baseline 4LNC) no chest pain, no palpitations and no edema no abdominal pain, no constipation and no diarrhea/loose stools Physical Exam Constitutional: well developed and + morbidly obese; no acute distress Respiratory: poor air movement bilaterally left sided expiratory wheeze saturating well on baseline 4LNC Cardiovascular: Rate/Rhythm: regular rhythm and + bradycardic Heart Sounds: + murmur (2/6, systolic) Extremities: + edema (3+ pitting, bilateral LE, skin tightening) Gastrointestinal (Abdomen): Inspection/Auscultation: + abdomen distended and normal bowel sounds Percussion/Palpation: abdomen soft; abdomen nontender and no guarding Skin: no rashes, warm and dry Psychiatric: A+Ox3, euthymic affect Results & Data Results & Data ([facility]) Vital Signs (Past 12 Hours) Vital Signs Temp Pulse Pulse Resp BP Pulse Ox 04/15/20 07:52 36.5 C 68 18 145/62 H 98 04/15/20 03:09 36.3 C L 52 L 18 146/68 H 97 04/15/20 02:49 63 18 93 04/14/20 23:15 36.9 C 54 L 18 121/74 96 04/14/20 22:43 100 H 20 95 Resident Activity Tracking Resident Involvement: Resident Care Provided Care Provided: Adult Hospital Medicine (1) Digoxin toxicity Encounter type: initial encounter Injury intent: accidental or unintentional Qualified Code(s): T46.0X1A - Poisoning by cardiac-stimulant glycosides and drugs of similar action, accidental (unintentional), initial encounter (2) Atrial fibrillation Atrial fibrillation type: permanent Qualified Code(s): I48.21 - Permanent atrial fibrillation
[2020-04-15] MEDS: FUROSEMIDE 40 MG TAB PO SCH ×2 (11:40→16:36)
--- NOTE | 2020-04-15 13:25 | Electrocardiogram Report ---
Test Reason : Blood Pressure : / mmHG Vent. Rate : 036 BPM Atrial Rate : 000 BPM P-R Int : 000 ms QRS Dur : 082 ms QT Int : 416 ms P-R-T Axes : 000 -35 047 degrees QTc Int : 321 ms Atrial fibrillation with slow ventricular response Left axis deviation Low voltage QRS Cannot rule out Anteroseptal infarct (cited on or before 02-FEB-2020) Abnormal ECG When compared with ECG of 12-APR-2020 16:20, No significant change was found Confirmed by José Lewis ([id number]) on 04/15/2020 1:25:20 PM Referred By: Matias Luna Confirmed By:José Lewis
[2020-04-16] MEDS: ACETAMINOPHEN 500 MG TAB PO SCH ×2 (05:42→14:22)
[2020-04-16] MEDS: FLUTICASONE FUROATE 100MCG 14 PUFFS/INHALER INH SCH (08:27)
[2020-04-16] MEDS: CEROVITE ADV FORMULA TAB PO SCH (08:27)
[2020-04-16] MEDS: CYANOCOBALAMIN 500 MCG TABLET (VITAMIN B-12) PO SCH (08:27)
[2020-04-16] MEDS: UMECLIDINIUM/VILANTEROL 62.5/25MCG 7 PUFFS/INHALER INH SCH (08:27)
[2020-04-16] MEDS: CALCIUM 600MG + VIT D 400 IU TAB PO SCH (08:28)
[2020-04-16] MEDS: ATORVASTATIN 40 MG TAB PO SCH (08:28)
[2020-04-16] MEDS: APIXABAN 5 MG TABLET PO SCH (08:28)
[2020-04-16] MEDS: FUROSEMIDE 40 MG TAB PO SCH (08:28)
[2020-04-16] MEDS: PANTOprazole 40 MG TAB PO SCH (08:28)
[2020-04-16 08:30] LABS: Basophils # (auto) 0.02 K/uL (0-0.2); Basophils % (auto) 0.3 %; Eosinophils # (auto) 0.24 K/uL (0-0.5); Eosinophils % (auto) 3.9 %; Hematocrit (blood only) 31.8 % (42-52); Hemoglobin 9.9 g/dL (14.0-18.0); Immature Granulocytes # (auto) 0.01 K/uL (0.00-0.02); Immature Granulocytes % (auto) 0.2 %; Lymphocytes # (auto) 0.92 K/uL (1.2-3.4); Lymphocytes % (auto) 15.1 %; Mean Corpuscular Hemoglobin 31.5 pg (25-34); Mean Corpuscular Hgb Conc 31.1 g/dL (32-36); Mean Corpuscular Volume 101.3 fL (80-100); Mean Platelet Volume 10.5 fL (7.4-10.4); Monocytes # (auto) 0.68 K/uL (0.11-0.59); Monocytes % (auto) 11.1 %; Neutrophils # (auto) 4.23 K/uL (1.4-6.5); Neutrophils % (auto) 69.4 %; Platelet Count 234 K/uL (130-400); RDW Coefficient of Variation 22.8 % (11.5-14.5); RDW Standard Deviation 85.9 fL (36.4-46.3); Red Blood Count 3.14 M/uL (4.7-6.1)
[2020-04-16] MEDS: DOCUSATE SODIUM 100 MG CAP PO SCH (08:32)
[2020-04-16 09:18] LABS: Anisocytosis Present; Ovalocytes 1+
[2020-04-16 09:32] LABS: BUN Creatinine Ratio 15.7 (10-20); Calcium 9.5 mg/dl (8.5-10.1); Creatinine Clr Calc Pharmacy 101.3 ml/min; Est GFR (African American) 101.9; Est GFR (Non-African American) 87.9; Potassium 4.2 mmol/L (3.5-5.1)
--- NOTE | 2020-04-16 10:41 | Discharge Summary ---
Date of Service April 16, 2020 Admission HPI Per Admitting Provider Mr. 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 Luna today, bradycardia; hypotension; and concern for acute blood loss in lower GI tract. The patient has a history of XIOMY, FE deficient anemia (recieved iron supplementation and 4 units of PRBC in most recent hospitalization in Jan), Afib on apixaban, HfPef (EF 70%), multiple assessments for anemia/lower GI bleeding concerns, COPD with SHIRA and Obesity on home oxygen at 5L/min, CAD with stent placement, HLD, CKD. Patient was recently admitted in January for continued anemia and blood loss and was sent to [facility] for rehab. Patient was discharged from [facility] to home with new medication list, that did not include digoxin, however, patient states that his dose was recently increased and he has been taking Digoxin 250 mcg every day. This appears to not be the case when reviewing his outpatient notes. Medication list was reviewed with extrusion process operator and the patient on Mar 23, 2020 and did not include digoxin. The patient was restarted on his atenolol 200mg PO BID for patient preference and was changed to apixaban at that time from [facility] secondary to concern for GI bleeding. During the January admission, the patient was in ARF secondary to ATN from hypovolemia/anemia he was supported with dialysis and also had digoxin toxicity (level 3.3 at that time). Patient was seen by GI and secondary to his critical illness and resolution of his bleeding it was deemed that he would be evaluated when more clinically stable. He did have a FNA (2018) for evaluation of submucosal gastric mass that was negative. He has been evaluated repeatedly for anemia in the outpatient setting. In July 2018, he underwent an EGD & colonoscopy that did not indicate any sources of active bleeding, He then had a video capsule study that was unremarkable as well. He arrived to the emergency room with BP recorded at 70/42 and HR in the 30's, following 1 liter of 0.9% saline the patient's HR increased to the 40-50 range and BP increased to 90-100/40-50. Upon further evaluation it was determined that the patient was continuing to take his digoxin medication and digoxin level was 3.9. The patient does endorse 2 weeks of blood in the toilet at home and on the toilet paper, has not had any on his underwear. He reports that the blood is so much in the toilet that he can sometimes not see his stool through it. Patient is heme (+) in the EMD and does not have any michi blood coming from rectum. Patient is alert and keenly responsive and rythm is stabilizing and he is well perfused. His potassium level is normal at this time, sodium level normal at this time, and will acutely replace calcium for hypocalcemia iCA 1.05. Cardiology was consulted and reviewed the case. Poison control was consulted by the EMD provider. Patient will be admitted for telemetry monitoring, resuscitation and following of perfusion/hemodynamic support. COVID negative. Admission Exam Per Admitting Provider General: awake, alert, no apparent distress Head: Normocephalic, atraumatic ENT: PERRL, EOMI, no pharyngeal exudate, mucous membranes dry. Neuro: AAO x 3, speech clear and appropriate, strength intact bilaterally 5/5, sensation intact and equal all extremities. Chest: equal rise and fall of the chest, no accessory muscle use, no heaves or thirlls, Clear to auscultation, on 3l NC. Cardiac: irregular rate and rhythm, telemetry reviewed with bigeminy/bradycardia/afib and NSR, skin warm dry, cap refill <3 seconds, peripheral pusles +2 no JVD, no murmur +3 edema to lower extremities to mid calf, venous ulcerations to legs. GI: NABS x 4 quadrants, soft, nontender to palpation, no rebound, guarding or tenderness : Spontaneously voiding, no pain, no CVA tenderness, Extremities: Normal inspection, no peripheral edema or erythema, calfs nontender to palpation Psych: Normal mood and affect cits Skin: no rash or erythema Principal Diagnosis Digoxin toxicity Discharge Exam Constitutional: obese, in no apparent distress, sitting comfortably in chair Eyes: EOMI, pupils equal and reactive bilaterally, no scleral icterus Cardiac: RRR, no murmurs, gallops or rubs. Normal S1, S2 Pulm: CTA BL, no wheezes, rhonchi, crackles or rubs, moving air well throughout both lungs on 4L NC Abd: soft, nontender, distended, normal bowel sounds, no rebound or guarding Extremities:poor peripheral pulses, 3+ pitting edema BL, overlying venous stasis changes with left calf posterior pressure ulcer bandaged, Neuro: no focal deficits, moving all 4 limbs, A&Ox3, able to walk unassisted with walker Discharge Data Allergies Allergy/AdvReac Type Severity Reaction Status Date / Time adhesive Allergy Mild TAPE-RASH Verified 04/12/20 15:23 oxycodone Allergy Mild RASH Verified 04/12/20 15:23 diltiazem Allergy Unknown Verified 04/12/20 15:23 Consultations 04/12/20 18:22 ED Decision to Admit Stat 04/12/20 20:37 Consult Case Management - Discharge Planning Routine Consult Industrial Recruiter Routine 04/12/20 20:44 Consult Cardiology Stat 04/14/20 07:14 Consult Cardiology Routine Hospital Course (1) Digoxin toxicity: 74 yo M PMHx CKD stage III, AFib, COPD, chronic hypercapnic respiratory failure, CAD, HTN, iron deficiency anemia presented with symptomatic hypotension and bradycardia from Cardiology office, and was found to have Digoxin toxicity. Digoxin toxicity with symptomatic bradycardia: Mr. Anderson did not require Digibind during this admission. His digoxin was held and was given IVF and level appropriately downtrended. Level at discharge was 1.2. He was seen by [facility] cardiology who recommended discontinuing the metoprolol and digoxin given considerable hypotension and resistant bradycardia during admission. Patient reportedly had reverted back to taking his atenolol rather than metoprolol when he was last discharged from the hospital. Recommended short follow up with Cardiology to reconcile necessary medications. XIOMY on CKD: - Creatinine 1.42 on admission, returned to baseline with fluid resuscitation and medication hold. Home diuretic dosing of 40 mg Lasix PO BID restarted at discharge, yielding appropriate urine output. Acute on Chronic diastolic heart failure: Sec to holding lasix and receiving IVF. Diuresed with resumption of home diuretics. Acute vs chronic GI bleeding: Mr. Anderson has a history of GIB and was found to have heme positive stool in the emergency department. His hemoglobin remained stable near baseline at 10, and did not have any bloody BMs or Hg fluctuation during stay. Eliquis continued during stay given high chadsvasc score and benefit of anticoagulation over bleeding risk. Recommend outpatient follow up with Upper endoscopy + Colonoscopy. All other chronic conditions managed per home regimen. Discontinued Medications: Digoxin 250 mcg PO AM Metoprolol Succinate ER 50 mg AM, 25 mg PM (2) Atrial fibrillation: Total Time Total Time Spent Total Time Spent (In Minutes): see attending attestation Discharge Plan Discharge Items Patient Disposition: Home - Self-Care Reason For Visit: DIGOXIN TOXICITY Discharge Diagnosis: Digoxin toxicity Condition on Discharge: Good Activity: Resume your previous activity Non-emergency contact: Primary Care Provider and Archivist Call non-emergency contact if: you have any medication questions and your symptoms worsen Follow-up/Referrals: Luis Manuel Mijares III, MD [Primary Care Provider] - (1 week following discharge) Matias Luna Jr, MD, FACC [Physician] - (1 week following discharge for digoxin toxicity and medication adjustments) Diet: Heart Healthy Addtl Attending Provider Instructions: You were admitted to the hospital for low blood pressure and low heart rate. You were found to have what is called Digoxin Toxicity, where your body is poisoned by the Digoxin medication and makes your heart rate very low. We stopped the Digoxin medicine as well as your atenolol medicine because of your low heart rate. Your heart rate got slowly better and we felt safe to discharge you home with the following changes: 1) DO NOT TAKE Digoxin when you go home. 2) STOP TAKING your atenolol medication at home. Dr. Luna and the Cardiology group are aware of these medication changes. You can talk about these changes with him at your appointment. You will be scheduled with an appointment with Dr. Luna for following discharge. If you are not contacted Saturday regarding scheduling an appointment, then call his office to schedule a hospital follow up. Please take a look at the medication list on this paperwork, and compare it to the medicines you have at home. Do not take any that are not on the list to take. You should also get a call to schedule an appointment with Dr. Mijares's office. If in the meantime before seeing Dr Luna and Dr Mijares you feel worsening shortness of breath, pain in your chest, dizziness, passing out, please come back to the hospital to be evaluated. Pending Studies at Discharge: No Stand-Alone Forms: [employer], Smoking Cessation Medications and DC Order Prescriptions: Continued furosemide 40 mg tablet 40 mg PO BID RF: 0 triamcinolone acetonide 0.1 % Cream 1 applic TOPICAL DAILY PRN (Reason: Rash) RF: 0 Calcium 600 + D(3) 600 mg calcium- 200 unit Capsule 1 cap PO BID RF: 0 cyanocobalamin (vitamin B-12) [Vitamin B-12] 1,000 mcg Tablet Extended Release 1,000 mcg PO QAM RF: 0 montelukast 10 mg tablet 10 mg PO HS RF: 0 Trelegy Ellipta 100-62.5-25 mcg blister with device 1 inh INH QAM RF: 0 trazodone 50 mg Tablet 37.5 mg PO HS Qty: 45 RF: 0 acetaminophen 500 mg Tablet 1,000 mg PO TID MDD 3000 MG APAP/DAY RF: 0 docusate sodium 100 mg Capsule 100 mg PO BID RF: 0 atorvastatin 80 mg tablet 80 mg PO QAM RF: 0 ipratropium-albuterol 0.5 mg-3 mg(2.5 mg base)/3 mL solution for nebulization 3 ml INHALATION Q6H PRN (Reason: Shortness Of Breath Or Wheezing) RF: 0 Eliquis 5 mg tablet 5 mg PO AMHS RF: 0 fluticasone propionate 50 mcg/actuation [place],Suspension 2 spray INTRANASAL DAILY PRN (Reason: Allergy Symptoms) RF: 0 melatonin 3 mg Tablet 3 mg PO HS RF: 0 multivitamin,ms-dpkn-Kk-FA-min Tablet 1 tab PO QAM RF: 0 omega-3 fatty acids Capsule 1,000 mg PO QAM RF: 0 albuterol sulfate 90 mcg/actuation HFA aerosol inhaler 1 puff INHALATION Q6H PRN (Reason: Shortness Of Breath Or Wheezing) RF: 0 Discontinued metoprolol succinate 50 mg Tablet Extended Release 24 Hr See Rx Instructions .ROUTE .COMPLEX RF: 0 digoxin 125 mcg (0.125 mg) Tablet 250 mcg PO QAM RF: 0 Discharge Orders: Discharge Order (Routine); Ordered 04/16/20 Ordered By: Ellen Olson Admission Data Admit Date/Time: 04/12/20 19:39 Attending Provider: Naomie Tellez Admit Provider: Collette Saavedra Primary Care Provider: Luis Manuel Mijares III Other Providers: Collette Saavedra ; Miguel Garcia ; Roland Bauer ; José Lewis ; Ellen Olson Other Interventions: Discharge Summary Assessment (RN) Last Done: 04/16/20 14:14 Supervising Physician Co-Signing Physician Notes Resident Physician Supervision Note: I independently interviewed and examined the patient and verified the blancas history and physical, reviewed labs and image studies, discussed the case with the resident Dr. Olson and agree with the findings and care plan. Resident Activity Tracking Resident Involvement: Resident Care Provided Care Provided: [facility]
== END 2020-04-16 16:23 | disposition home or self-care (01) | DRG 917 ==
LOC: ED 15:55 → 1E 19:39 → SUATTDRO 19:39 → 1E 20:22 → 2S 04-13 17:43

== ENCOUNTER 2020-08-16 11:47 | Inpatient (IN) ==
[2020-08-16 13:20] LABS: Appearance Urine Clear (Clear); Bilirubin Urine Negative (Negative); Blood Urine Negative (Negative); Color Urine Yellow; Glucose Urine UA Negative (Negative); Ketones Urine Trace (Negative); Leukocyte Esterase Urine Negative (Negative); Nitrite Urine Negative (Negative); Protein Urine 3+ (Negative); Specific Gravity Urine 1.025 (1.000-1.030); Urobilinogen Urine Negative (Negative)
--- NOTE | 2020-08-16 13:34 | XRay Report ---
XR chest 1V portable HISTORY: Dyspnea COMPARISON: Chest 04/12/2020. FINDINGS: No pneumothorax. The heart remains enlarged. Perihilar interstitial/vascular thickening wit h trace bilateral pleural effusions. This is similar to the prior study and consistent with mild pulm onary edema. Right shoulder prosthesis. IMPRESSION: No change in the mild pulmonary edema and trace bilateral pleural effusions. ACT 112: Negative or not required by law. Electronically signed by: Sudeep Wolff M.D. 08/16/2020 1:33 PM
[2020-08-16 13:37] LABS: Mucus Urine Present (None Prsent)
[2020-08-16 13:38] LABS: RBC Urine 0-4 /hpf (0-4); WBC Urine 0-5 /hpf (0-5)
[2020-08-16 13:39] LABS: Amorphous Sediment Urine Present (None Prsent); Bacteria Urine 1+ (Negative)
--- NOTE | 2020-08-16 13:56 | Emergency Department Note ---
Impression & Plan Edema, Painless rectal bleeding, CHF (congestive heart failure), Symptomatic anemia ED Provider Note INFORMANT: Patient ED PROVIDER(S): Pillo Briceno MD CHIEF COMPLAINT: Shortness of breath PLAN: Disposition: Admitted Condition: Guarded Outpatient prescription management: none Referral: None MEDICAL DECISION MAKING: Patient presented to the emergency department because of shortness of breath and swelling. His clinical examination was concerning for CHF. The patient also noted recent rectal bleeding. His vital signs were stable. Blood work was obtained. He was found to be profoundly anemic. He was consented for packed red blood cell transfusion. Transfusion began in the ER. The patient was also found to be mildly hyperkalemic and have XIOMY. He notes he has not taken his Lasix today. The patient was given Lasix 120 mg IV to compensate for his home dose that was missed. He will need further management in the hospital. Patient and are in agreement. Consultation was made with Dr. Acevedo of the hospitalist service. He was evaluated in the ER and admitted for further management. Triage Nursing notes reviewed and agree them. Vital Signs: reviewed and remarkable for borderline tachycardia Differential diagnosis: Symptomatic anemia, reactive airway disease, pneumonia, pneumothorax, COPD, CHF, infections, cardiac ischemia, pulmonary embolism, musculoskeletal, gastrointestinal, as well as other pathologies. Diagnostics interpreted by me: ECG: Twelve-lead ECG reveals atrial fibrillation with rapid ventricular response at 104 bpm. Low voltage QRS. Poor R wave progression. No ST elevation or depression. No PVCs. Cardiac Monitoring: Cardiac monitoring ordered by me: The patient was placed on continuous cardiac monitoring and observed. It revealed atrial fibrillation at 98 bpm. Imaging studies: Chest x-ray reveals mild pulmonary edema and effusions. HPI: The patient is a 75 year old male who presents to the Emergency Room with complaints of SOB. This started two weeks ago and is worsening. The patient also notes the following associated symptoms, lower leg swelling, wheezing, weakness, rectal bleeding. The patient has found no relieving factors. Been using lasix as prescribed. Current pain is rated as o/10. Patient is on anticoagulation secondary to A. fib. Pt denies LOC, headache, fevers, chills, diaphoresis, visual changes, neck pain, chest pain, nausea, vomiting, abdominal pain, back pain, melena, hematochezia, urinary symptoms, numbness, lymphadenopathy, rash, or other complaints. ROS: See above HPI for pertinent positives & negatives. A total of 10 systems reviewed and were otherwise negative. PAST MEDICAL HISTORY:See Below , Afib PAST SURGICAL HISTORY:See Below, FAMILY HISTORY:See Below SOCIAL HISTORY:See Below, HOME MEDICATIONS:See Below ALLERGIES:See Below VITALS:See Below PHYSICAL EXAMINATION: GENERAL: Awake, alert, well-appearing, in no distress HENT: Normocephalic, atraumatic. Oropharynx unremarkable. EYES: Pale conjunctiva. Sclera non-icteric. NECK: Inspection normal. Non-tender. Supple. No nuchal rigidity. FROM. No masses. RESPIRATORY: Scattered rales and wheezes. Normal respiratory effort. CARDIAC: Normal rate. Normal rhythm. No murmurs. No rubs. Extremities warm and well perfused. Pulses equal. No JVD. GI: Soft, non-distended. No tenderness to palpation. No rebound or guarding. No masses. RECTAL: Deferred. MUSCULOSKELETAL: Atraumatic. Chest examination reveals no tenderness. The back is symmetrical on inspection without obvious abnormality. There is no CVA tenderness to palpation. No joint edema. LOWER EXTREMITIES: Calves are equal size bilaterally and non-tender. 3+ edema. Chronic venous discoloration. NEURO: Normal sensorium. No sensory or motor deficits noted. SKIN: No rash or jaundice noted. CRITICAL CARE: I have personally spent greater than 40 minutes of critical care time in the direct management of this patient. This includes bedside care, interpretation of diagnostic studies, and testing, discussion with consultants, patient, and family members, and other required patient management activities. These minutes are in excess of all separately billable procedures. Pillo Briceno MD Past Med/Surg History Medical History Acute blood loss anemia Acute exacerbation of CHF (congestive heart failure) Acute GI bleeding Acute hyperkalemia Acute hypotension Acute kidney injury XIOMY (acute kidney injury) Anemia Atrial fibrillation with slow ventricular response Walker esophagus Bilateral cellulitis of lower leg Cellulitis of right lower leg Chronic respiratory failure with hypoxia and hypercapnia Closed right hip fracture (04/05/13) Coagulopathy COPD exacerbation Difficulty swallowing Digoxin toxicity Digoxin toxicity Edema of left upper arm Gastritis, erosive Gastrointestinal hemorrhage GERD (gastroesophageal reflux disease) Hip fracture (04/03/13) History of heart artery stent History of prostate cancer Hyperlipidemia Hypertension Leg edema On anticoagulant therapy On home oxygen therapy S/P right hip fracture (04/05/13) Sleep apnea Subepithelial gastric mass Symptomatic bradycardia Surgical History History of bilateral cataract extraction History of cardiac cath History of colonoscopy History of esophagogastroduodenoscopy (EGD) History of lumbar surgery History of prostate biopsy History of prostatectomy History of right shoulder replacement History of total left hip replacement History of total right hip replacement History of umbilical hernia repair Hx of nasal septoplasty Family History Uncle Prostate cancer Mother Septicemia Father COPD (chronic obstructive pulmonary disease) Pancreatic cancer Other No family history of adverse response to anesthesia Social History Smoking Status: Current some day smoker Tobacco Type: Cigarettes Age Started Using Tobacco: 17; Age Quit Using Tobacco: 54; packs per day: 1; Years Smoked: 37; Second Hand Exposure: No; Hx Alcohol Use: Yes Alcohol type: hard liquor Alcohol Intake Frequency Comment: 2-3 daily Hx Substance Use: No Preferred Language: Armenian Communication Ability: Effective Visual Impairment: No Limitations Hearing Ability: Use of Hearing Aid Manager Intensive Care Required: No Beliefs That Will Affect Care: None marital status: Current Living Situation: Spouse Current Living Situation Comment: has step-children 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 Feels Safe at Home: Yes Seatbelt Use: always Sunscreen Use: No Assistive Devices: Cane, Glasses and Oxygen - Continuous Allergies Allergies Allergy/AdvReac Type Severity Reaction Status Date / Time adhesive Allergy Mild TAPE-RASH Verified 08/16/20 13:31 oxycodone Allergy Mild RASH Verified 08/16/20 13:31 diltiazem Allergy Unknown Verified 08/16/20 13:31 Home Meds Home Medications Medication Instructions Recorded Confirmed Calcium 600 + D(3) 1 cap PO BID 08/21/18 08/16/20 cyanocobalamin (vitamin B-12) 1,000 mcg PO QAM 11/05/18 08/16/20 [Vitamin B-12] albuterol sulfate 1 puff INHALATION Q6H PRN 04/12/20 08/16/20 naproxen sodium 220 mg capsule 440 mg PO BID cap 04/21/20 08/16/20 omeprazole 40 mg capsule,delayed 40 mg PO BID 04/21/20 08/16/20 release triamcinolone acetonide 55 mcg 2 spray INTRANASAL DAILY 04/21/20 08/16/20 nasal spray aerosol docusate sodium 100 mg capsule 100 mg PO BID PRN 05/18/20 08/16/20 potassium chloride 10 mEq 10 meq PO QAM tab 05/18/20 08/16/20 tablet,extended release atorvastatin 80 mg PO HS 08/16/20 08/16/20 [id number] 1 inh INHALATION QAM 08/16/20 08/16/20 [Trelegy Ellipta] ipratropium-albuterol 3 ml INHALATION BID 08/16/20 08/16/20 multivitamin 1 tab PO QDD 08/16/20 08/16/20 omega 5-wgr-obi-fish oil [Fish Oil] 1 cap PO QAM 08/16/20 08/16/20 triamcinolone acetonide [Nasacort] 1 spray INTRANASAL HS 08/16/20 08/16/20 Previous Rx's Medication Instructions Recorded apixaban 5 mg tablet 5 mg PO BID #180 tab 05/19/20 furosemide 40 mg tablet 120 mg PO BID #540 tab 05/19/20 atenolol 100 mg tablet 100 mg PO BID #180 tab 06/07/20 Results & Data (ED) Vital Signs Vital Signs - 24 hr 08/16/20 11:49 08/16/20 12:18 08/16/20 12:20 Temperature 36.4 C L Temperature Source Temporal Artery Scan Pulse Rate 101 H 98 H 96 H Pulse Rate [Left] Pulse Rate from SpO2 Sensor 93 H 107 H Respiratory Rate 97 H 20 29 H Respiratory Effort / Characteristics Spontaneous Blood Pressure 105/74 Blood Pressure Mean 84 Blood Pressure Position Pulse Oximetry 97 100 100 Oxygen Delivery Method Nasal Cannula Oxygen Flow Rate 4 Sepsis Recent Fever Within 48 Hours No Sepsis New/Unexplained Change in Mental Status N/A Sepsis Action Taken by Nursing No Action Required 08/16/20 12:30 08/16/20 12:31 08/16/20 12:40 Temperature Temperature Source Pulse Rate 97 H 105 H 96 H Pulse Rate [Left] Pulse Rate from SpO2 Sensor 108 H 97 H Respiratory Rate 25 H 25 H 19 Respiratory Effort / Characteristics Blood Pressure 96/64 L Blood Pressure Mean 74 Blood Pressure Position Pulse Oximetry 100 100 Oxygen Delivery Method Oxygen Flow Rate Sepsis Recent Fever Within 48 Hours Sepsis New/Unexplained Change in Mental Status Sepsis Action Taken by Nursing 08/16/20 12:50 08/16/20 13:00 08/16/20 13:01 Temperature Temperature Source Pulse Rate 112 H Pulse Rate [Left] Pulse Rate from SpO2 Sensor 92 H 104 H 112 H Respiratory Rate 19 24 27 H Respiratory Effort / Characteristics Blood Pressure 125/73 Blood Pressure Mean 90 Blood Pressure Position Pulse Oximetry 100 100 100 Oxygen Delivery Method Oxygen Flow Rate Sepsis Recent Fever Within 48 Hours Sepsis New/Unexplained Change in Mental Status Sepsis Action Taken by Nursing 08/16/20 13:07 08/16/20 13:10 08/16/20 13:20 Temperature Temperature Source Pulse Rate 116 H Pulse Rate [Left] Pulse Rate from SpO2 Sensor 96 H 107 H Respiratory Rate 26 H 22 Respiratory Effort / Characteristics Blood Pressure Blood Pressure Mean Blood Pressure Position Pulse Oximetry 95 100 100 Oxygen Delivery Method Nasal Cannula Oxygen Flow Rate Sepsis Recent Fever Within 48 Hours Sepsis New/Unexplained Change in Mental Status Sepsis Action Taken by Nursing 08/16/20 13:30 08/16/20 13:40 08/16/20 13:50 Temperature Temperature Source Pulse Rate 106 H 99 H 113 H Pulse Rate [Left] Pulse Rate from SpO2 Sensor 107 H 114 H Respiratory Rate 20 20 20 Respiratory Effort / Characteristics Blood Pressure 113/87 Blood Pressure Mean 95 Blood Pressure Position Pulse Oximetry 100 100 Oxygen Delivery Method Oxygen Flow Rate Sepsis Recent Fever Within 48 Hours Sepsis New/Unexplained Change in Mental Status Sepsis Action Taken by Nursing 08/16/20 14:00 08/16/20 14:10 08/16/20 14:20 Temperature Temperature Source Pulse Rate 103 H 90 111 H Pulse Rate [Left] Pulse Rate from SpO2 Sensor 108 H 90 103 H Respiratory Rate 24 21 23 Respiratory Effort / Characteristics Blood Pressure Blood Pressure Mean Blood Pressure Position Pulse Oximetry 100 100 100 Oxygen Delivery Method Nasal Cannula Nasal Cannula Nasal Cannula Oxygen Flow Rate 3 3 3 Sepsis Recent Fever Within 48 Hours Sepsis New/Unexplained Change in Mental Status Sepsis Action Taken by Nursing 08/16/20 14:30 08/16/20 14:31 08/16/20 14:40 Temperature Temperature Source Pulse Rate 93 H 94 H 102 H Pulse Rate [Left] Pulse Rate from SpO2 Sensor 95 H 99 H 95 H Respiratory Rate 21 22 21 Respiratory Effort / Characteristics Blood Pressure 108/74 Blood Pressure Mean 85 Blood Pressure Position Pulse Oximetry 100 100 100 Oxygen Delivery Method Oxygen Flow Rate Sepsis Recent Fever Within 48 Hours Sepsis New/Unexplained Change in Mental Status Sepsis Action Taken by Nursing 08/16/20 14:50 08/16/20 15:00 08/16/20 15:01 Temperature Temperature Source Pulse Rate 86 94 H 93 H Pulse Rate [Left] Pulse Rate from SpO2 Sensor 93 H 89 99 H Respiratory Rate 24 26 H 21 Respiratory Effort / Characteristics Blood Pressure 107/73 Blood Pressure Mean 84 Blood Pressure Position Pulse Oximetry 100 100 100 Oxygen Delivery Method Oxygen Flow Rate Sepsis Recent Fever Within 48 Hours Sepsis New/Unexplained Change in Mental Status Sepsis Action Taken by Nursing 08/16/20 15:05 08/16/20 15:10 08/16/20 15:20 Temperature Temperature Source Pulse Rate 100 H 157 H Pulse Rate [Left] 99 H Pulse Rate from SpO2 Sensor 92 H 107 H Respiratory Rate 22 16 23 Respiratory Effort / Characteristics Non-Labored Spontaneous Blood Pressure Blood Pressure Mean Blood Pressure Position Pulse Oximetry 99 100 96 Oxygen Delivery Method Nasal Cannula Oxygen Flow Rate 4 Sepsis Recent Fever Within 48 Hours Sepsis New/Unexplained Change in Mental Status Sepsis Action Taken by Nursing 08/16/20 15:30 08/16/20 15:31 08/16/20 15:40 Temperature Temperature Source Pulse Rate 90 101 H 96 H Pulse Rate [Left] Pulse Rate from SpO2 Sensor 84 97 H 99 H Respiratory Rate 23 19 27 H Respiratory Effort / Characteristics Blood Pressure 132/85 Blood Pressure Mean 100 Blood Pressure Position Pulse Oximetry 100 100 100 Oxygen Delivery Method Oxygen Flow Rate Sepsis Recent Fever Within 48 Hours Sepsis New/Unexplained Change in Mental Status Sepsis Action Taken by Nursing 08/16/20 15:50 08/16/20 16:00 08/16/20 16:10 Temperature Temperature Source Pulse Rate 102 H 117 H 103 H Pulse Rate [Left] Pulse Rate from SpO2 Sensor 99 H 101 H 96 H Respiratory Rate 30 H 27 H 26 H Respiratory Effort / Characteristics Blood Pressure 115/81 Blood Pressure Mean 92 Blood Pressure Position Pulse Oximetry 100 100 100 Oxygen Delivery Method Oxygen Flow Rate Sepsis Recent Fever Within 48 Hours Sepsis New/Unexplained Change in Mental Status Sepsis Action Taken by Nursing 08/16/20 16:18 08/16/20 16:32 08/16/20 16:50 Temperature 36.8 C 36.9 C Temperature Source Oral Oral Pulse Rate 95 H 97 H 93 H Pulse Rate [Left] Pulse Rate from SpO2 Sensor 103 H Respiratory Rate 29 H 23 24 Respiratory Effort / Characteristics Blood Pressure 117/57 L 120/64 107/74 Blood Pressure Mean 77 82 85 Blood Pressure Position Lying Sitting Pulse Oximetry 100 100 100 Oxygen Delivery Method Oxygen Flow Rate 4 4 Sepsis Recent Fever Within 48 Hours Sepsis New/Unexplained Change in Mental Status Sepsis Action Taken by Nursing Laboratory Data Result diagrams: 08/16/20 13:57 08/16/20 13:57 Lab Results 08/16/20 08/16/20 08/16/20 Range/Units 12:15 13:07 13:57 WBC 10.40 (4.8-10.8) K/uL RBC 2.23 L (4.7-6.1) M/uL Hgb 6.0 L* (14.0-18.0) g/dL Hct 20.5 L* (42-52) % MCV 91.9 (80-100) fL MCH 26.9 (25-34) pg MCHC 29.3 L (32-36) g/dL RDW Std Deviation 56.7 H (36.4-46.3) fL RDW Coeff of Ezekiel 17.0 H (11.5-14.5) % Plt Count 311 (130-400) K/uL MPV 10.1 (7.4-10.4) fL Immature Gran % (Auto) 0.3 % Neut % (Auto) 74.7 % Lymph % (Auto) 10.9 % Gordon % (Auto) 12.4 % Eos % (Auto) 1.4 % Baso % (Auto) 0.3 % Neut # (Auto) 7.77 H (1.4-6.5) K/uL Lymph # (Auto) 1.13 L (1.2-3.4) K/uL Gordon # (Auto) 1.29 H (0.11-0.59) K/uL Eos # (Auto) 0.15 (0-0.5) K/uL Baso # (Auto) 0.03 (0-0.2) K/uL Immature Gran # (Auto) 0.03 H (0.00-0.02) K/uL Absolute Nucleated RBC 0.03 H (0-0) K/uL Nucleated RBC % (auto) 0.3 % Poikilocytosis Present Anisocytosis Present PT (9.0-12.0) Seconds INR (0.9-1.1) APTT (21.0-31.0) Seconds PTT Ratio Sodium (136-145) mmol/L Potassium (3.5-5.1) mmol/L Chloride (98-107) mmol/L Carbon Dioxide (21-32) mmol/L Anion Gap (3-11) BUN (7-18) mg/dl Creatinine (0.6-1.4) mg/dl Est Cr Clr Drug Dosing Est GFR ( Amer) ml/min Est GFR (Non-Af Amer) ml/min BUN/Creatinine Ratio (10-20) Glucose (70-99) mg/dl Calcium (8.5-10.1) mg/dl Magnesium (1.8-2.4) mg/dl Total Bilirubin (0.2-1) mg/dl AST (15-37) U/L ALT (12-78) U/L Alkaline Phosphatase (45-117) U/L Troponin I (0-0.045) ng/ml NT-Pro-B Natriuret Pep (0-900) pg/ml Total Protein (6.4-8.2) gm/dl Albumin (3.4-5.0) gm/dl Globulin (2.5-4.0) gm/dl Albumin/Globulin Ratio (0.9-2) Urine Color Yellow Cancelled Urine Appearance Clear Cancelled (Clear) Urine pH 5.0 Cancelled (4.5-7.5) Ur Specific [place] 1.025 Cancelled (1.000-1.030) Urine Protein 3+ H Cancelled (Negative) Urine Glucose (UA) Negative Cancelled (Negative) Urine Ketones Trace H Cancelled (Negative) Urine Blood Negative Cancelled (Negative) Urine Nitrite Negative Cancelled (Negative) Urine Bilirubin Negative Cancelled (Negative) Urine Urobilinogen Negative Cancelled (Negative) Ur Leukocyte Esterase Negative Cancelled (Negative) Urine WBC (Auto) Cancelled Urine RBC (Auto) Cancelled U Hyaline Cast (Auto) Cancelled U Epithel Cells (Auto) Cancelled Urine Bacteria (Auto) Cancelled Urine RBC 0-4 (0-4) /hpf Urine WBC 0-5 (0-5) /hpf Ur Epithelial Cells 10-20 H (0-5) /lpf Ur Renal Epithelial Cell Cancelled Urine Crystals Cancelled Calcium Oxalate Crystal Cancelled Uric Acid Crystals Cancelled Triple Phos Crystals Cancelled Other Crystals Cancelled Amorphous Sediment Present A Cancelled (None Prsent) Urine Bacteria 1+ H (Negative) Hyaline Casts 10-30 H (0-5) /lpf Granular Casts Cancelled Waxy Casts Cancelled RBC Casts Cancelled WBC Casts Cancelled Other Casts Cancelled Urine Mucus Present A Cancelled (None Prsent) Urine Other Cancelled Urine Trichomonas Cancelled Urine Yeast Cancelled Urine Sperm Cancelled Ur Oval Fat Bodies Cancelled COVID-19 Eval Order SARS-CoV-2 (PCR) (Negative) Blood Type Antibody Screen Crossmatch 08/16/20 08/16/20 08/16/20 Range/Units 13:57 13:59 13:59 WBC (4.8-10.8) K/uL RBC (4.7-6.1) M/uL Hgb (14.0-18.0) g/dL Hct (42-52) % MCV (80-100) fL MCH (25-34) pg MCHC (32-36) g/dL RDW Std Deviation (36.4-46.3) fL RDW Coeff of Ezekiel (11.5-14.5) % Plt Count (130-400) K/uL MPV (7.4-10.4) fL Immature Gran % (Auto) % Neut % (Auto) % Lymph % (Auto) % Gordon % (Auto) % Eos % (Auto) % Baso % (Auto) % Neut # (Auto) (1.4-6.5) K/uL Lymph # (Auto) (1.2-3.4) K/uL Gordon # (Auto) (0.11-0.59) K/uL Eos # (Auto) (0-0.5) K/uL Baso # (Auto) (0-0.2) K/uL Immature Gran # (Auto) (0.00-0.02) K/uL Absolute Nucleated RBC (0-0) K/uL Nucleated RBC % (auto) % Poikilocytosis Anisocytosis PT 13.0 H (9.0-12.0) Seconds INR 1.3 H (0.9-1.1) APTT 23.9 (21.0-31.0) Seconds PTT Ratio 0.9 Sodium 141 (136-145) mmol/L Potassium 5.8 H (3.5-5.1) mmol/L Chloride 105 (98-107) mmol/L Carbon Dioxide 31 (21-32) mmol/L Anion Gap 5.0 (3-11) BUN 48 H (7-18) mg/dl Creatinine 2.17 H (0.6-1.4) mg/dl Est Cr Clr Drug Dosing Not Reportable Est GFR ( Amer) 33.8 ml/min Est GFR (Non-Af Amer) 29.1 ml/min BUN/Creatinine Ratio 22.1 H (10-20) Glucose 104 H (70-99) mg/dl Calcium 8.8 (8.5-10.1) mg/dl Magnesium 3.1 H (1.8-2.4) mg/dl Total Bilirubin 0.6 (0.2-1) mg/dl AST 13 L (15-37) U/L ALT 12 (12-78) U/L Alkaline Phosphatase 40 L (45-117) U/L Troponin I < 0.015 (0-0.045) ng/ml NT-Pro-B Natriuret Pep 2371 H (0-900) pg/ml Total Protein 6.6 (6.4-8.2) gm/dl Albumin 3.3 L (3.4-5.0) gm/dl Globulin 3.3 (2.5-4.0) gm/dl Albumin/Globulin Ratio 1.0 (0.9-2) Urine Color Urine Appearance (Clear) Urine pH (4.5-7.5) Ur Specific [place] (1.000-1.030) Urine Protein (Negative) Urine Glucose (UA) (Negative) Urine Ketones (Negative) Urine Blood (Negative) Urine Nitrite (Negative) Urine Bilirubin (Negative) Urine Urobilinogen (Negative) Ur Leukocyte Esterase (Negative) Urine WBC (Auto) Urine RBC (Auto) U Hyaline Cast (Auto) U Epithel Cells (Auto) Urine Bacteria (Auto) Urine RBC (0-4) /hpf Urine WBC (0-5) /hpf Ur Epithelial Cells (0-5) /lpf Ur Renal Epithelial Cell Urine Crystals Calcium Oxalate Crystal Uric Acid Crystals Triple Phos Crystals Other Crystals Amorphous Sediment (None Prsent) Urine Bacteria (Negative) Hyaline Casts (0-5) /lpf Granular Casts Waxy Casts RBC Casts WBC Casts Other Casts Urine Mucus (None Prsent) Urine Other Urine Trichomonas Urine Yeast Urine Sperm Ur Oval Fat Bodies COVID-19 Eval Order SARS-CoV-2 (PCR) (Negative) Blood Type A Positive Antibody Screen NEGATIVE Crossmatch See Detail 08/16/20 08/16/20 Range/Units 14:32 14:32 WBC (4.8-10.8) K/uL RBC (4.7-6.1) M/uL Hgb (14.0-18.0) g/dL Hct (42-52) % MCV (80-100) fL MCH (25-34) pg MCHC (32-36) g/dL RDW Std Deviation (36.4-46.3) fL RDW Coeff of Ezekiel (11.5-14.5) % Plt Count (130-400) K/uL MPV (7.4-10.4) fL Immature Gran % (Auto) % Neut % (Auto) % Lymph % (Auto) % Gordon % (Auto) % Eos % (Auto) % Baso % (Auto) % Neut # (Auto) (1.4-6.5) K/uL Lymph # (Auto) (1.2-3.4) K/uL Gordon # (Auto) (0.11-0.59) K/uL Eos # (Auto) (0-0.5) K/uL Baso # (Auto) (0-0.2) K/uL Immature Gran # (Auto) (0.00-0.02) K/uL Absolute Nucleated RBC (0-0) K/uL Nucleated RBC % (auto) % Poikilocytosis Anisocytosis PT (9.0-12.0) Seconds INR (0.9-1.1) APTT (21.0-31.0) Seconds PTT Ratio Sodium (136-145) mmol/L Potassium (3.5-5.1) mmol/L Chloride (98-107) mmol/L Carbon Dioxide (21-32) mmol/L Anion Gap (3-11) BUN (7-18) mg/dl Creatinine (0.6-1.4) mg/dl Est Cr Clr Drug Dosing Est GFR ( Amer) ml/min Est GFR (Non-Af Amer) ml/min BUN/Creatinine Ratio (10-20) Glucose (70-99) mg/dl Calcium (8.5-10.1) mg/dl Magnesium (1.8-2.4) mg/dl Total Bilirubin (0.2-1) mg/dl AST (15-37) U/L ALT (12-78) U/L Alkaline Phosphatase (45-117) U/L Troponin I (0-0.045) ng/ml NT-Pro-B Natriuret Pep (0-900) pg/ml Total Protein (6.4-8.2) gm/dl Albumin (3.4-5.0) gm/dl Globulin (2.5-4.0) gm/dl Albumin/Globulin Ratio (0.9-2) Urine Color Urine Appearance (Clear) Urine pH (4.5-7.5) Ur Specific [place] (1.000-1.030) Urine Protein (Negative) Urine Glucose (UA) (Negative) Urine Ketones (Negative) Urine Blood (Negative) Urine Nitrite (Negative) Urine Bilirubin (Negative) Urine Urobilinogen (Negative) Ur Leukocyte Esterase (Negative) Urine WBC (Auto) Urine RBC (Auto) U Hyaline Cast (Auto) U Epithel Cells (Auto) Urine Bacteria (Auto) Urine RBC (0-4) /hpf Urine WBC (0-5) /hpf Ur Epithelial Cells (0-5) /lpf Ur Renal Epithelial Cell Urine Crystals Calcium Oxalate Crystal Uric Acid Crystals Triple Phos Crystals Other Crystals Amorphous Sediment (None Prsent) Urine Bacteria (Negative) Hyaline Casts (0-5) /lpf Granular Casts Waxy Casts RBC Casts WBC Casts Other Casts Urine Mucus (None Prsent) Urine Other Urine Trichomonas Urine Yeast Urine Sperm Ur Oval Fat Bodies COVID-19 Eval Order Covid19 at [facility] SARS-CoV-2 (PCR) NEGATIVE (Negative) Blood Type Antibody Screen Crossmatch Administered Medications Discontinued Medications Albuterol (Albut/Ipratrop 3mg/0.5mg Neb 3 Ml Vial) 3 ml NEB NOW STA Stop: 08/16/20 14:36 Last Admin: 08/16/20 15:03 Dose: 3 ml Documented by: [id number] Furosemide (Furosemide 40 Mg/4 Ml Vial) 120 mg IV NOW STA Stop: 08/16/20 14:36 Last Admin: 08/16/20 16:17 Dose: 120 mg Documented by: [id number] Imaging Data Radiologist's Impression: Chest X-Ray 08/16/20 13:05 XR chest 1V portable HISTORY: Dyspnea COMPARISON: Chest 04/12/2020. FINDINGS: No pneumothorax. The heart remains enlarged. Perihilar interstitial/vascular thickening with trace bilateral pleural effusions. This is similar to the prior study and consistent with mild pulmonary edema. Right shoulder prosthesis. IMPRESSION: No change in the mild pulmonary edema and trace bilateral pleural effusions. ACT 112: Negative or not required by law. Electronically signed by: Sudeep Wolff M.D. 08/16/2020 1:33 PM Discharge Plan Visit Data Chief Complaint: Illness Stated Complaint: BLOOD IN URINE, RETAINING FLUID, SOB ED Provider: Pillo Briceno Discharge Problem: Edema, Painless rectal bleeding, CHF (congestive heart failure), Symptomatic anemia Forms Stand Alone Forms: [facility] Prescriptions Prescriptions: No Action furosemide 40 mg tablet 120 mg PO BID Qty: 540 RF: 3 Eliquis 5 mg tablet 5 mg PO BID Qty: 180 RF: 3 atenolol 100 mg tablet 100 mg PO BID Qty: 180 RF: 3 omeprazole 40 mg capsule,delayed release(DR/EC) 40 mg PO BID RF: 0 naproxen sodium [Aleve] 220 mg capsule 440 mg PO BID RF: 0 triamcinolone acetonide [Nasacort] 55 mcg aerosol,spray 2 spray intranasal DAILY RF: 0 potassium chloride [Klor-Con 10] 10 mEq tablet extended release 10 meq PO QAM RF: 0 Calcium 600 + D(3) 600 mg calcium- 200 unit Capsule 1 cap PO BID RF: 0 cyanocobalamin (vitamin B-12) [Vitamin B-12] 1,000 mcg Tablet Extended Release 1,000 mcg PO QAM RF: 0 albuterol sulfate 90 mcg/actuation HFA aerosol inhaler 1 puff INHALATION Q6H PRN (Reason: Shortness Of Breath Or Wheezing) RF: 0 docusate sodium 100 mg capsule 100 mg PO BID PRN (Reason: constipation) RF: 0 multivitamin Tablet 1 tab PO QDD RF: 0 triamcinolone acetonide [Nasacort] 55 mcg Aerosol,[place] 1 spray INTRANASAL HS RF: 0 omega 9-pwy-zkk-fish oil [Fish Oil] 1,000 mg (120 mg-180 mg) Capsule 1 cap PO QAM RF: 0 atorvastatin 80 mg tablet 80 mg PO HS RF: 0 ipratropium-albuterol 0.5 mg-3 mg(2.5 mg base)/3 mL solution for nebulization 3 ml INHALATION BID RF: 0 Trelegy Ellipta 100-62.5-25 mcg blister with device 1 inh inhalation QAM RF: 0
[2020-08-16 14:20] LABS: Hematocrit (blood only) 20.5 % (42-52); Mean Corpuscular Hemoglobin 26.9 pg (25-34); Mean Corpuscular Hgb Conc 29.3 g/dL (32-36); Mean Corpuscular Volume 91.9 fL (80-100); Mean Platelet Volume 10.1 fL (7.4-10.4); Nucleated RBC # (auto) 0.03 K/uL (0-0); Nucleated RBC % (auto) 0.3 %; Platelet Count 311 K/uL (130-400); RDW Standard Deviation 56.7 fL (36.4-46.3); Red Blood Count 2.23 M/uL (4.7-6.1)
[2020-08-16] MEDS ORDERED: SODIUM CHLORIDE 0.9% 250 ML IV PRN (14:22)
[2020-08-16 14:25] LABS: Alanine Aminotransferase 12 U/L (12-78); Albumin Level 3.3 gm/dl (3.4-5.0); Aspartate Aminotransferase 13 U/L (15-37); BUN Creatinine Ratio 22.1 (10-20); Blood Urea Nitrogen 48 mg/dl (7-18); Calcium 8.8 mg/dl (8.5-10.1); Carbon Dioxide 31 mmol/L (21-32); Chloride 105 mmol/L (98-107); Est GFR (African American) 33.8 ml/min; Est GFR (Non-African American) 29.1 ml/min; Glucose 104 mg/dl (70-99); Magnesium 3.1 mg/dl (1.8-2.4); Potassium 5.8 mmol/L (3.5-5.1); Sodium 141 mmol/L (136-145)
[2020-08-16 14:30] LABS: Alkaline Phosphatase 40 U/L (45-117); Bilirubin,Total 0.6 mg/dl (0.2-1); Globulin 3.3 gm/dl (2.5-4.0); NT Pro B Type Natriuretic Pept 2371 pg/ml (0-900); Total Protein 6.6 gm/dl (6.4-8.2); Troponin I < 0.015 ng/ml (0-0.045)
[2020-08-16 14:34] LABS: Anisocytosis Present; Basophils # (auto) 0.03 K/uL (0-0.2); Basophils % (auto) 0.3 %; Eosinophils # (auto) 0.15 K/uL (0-0.5); Eosinophils % (auto) 1.4 %; Immature Granulocytes # (auto) 0.03 K/uL (0.00-0.02); Immature Granulocytes % (auto) 0.3 %; Lymphocytes # (auto) 1.13 K/uL (1.2-3.4); Lymphocytes % (auto) 10.9 %; Monocytes # (auto) 1.29 K/uL (0.11-0.59); Monocytes % (auto) 12.4 %; Neutrophils # (auto) 7.77 K/uL (1.4-6.5); Neutrophils % (auto) 74.7 %; Poikilocytosis Present
[2020-08-16] MEDS ORDERED: FUROSEMIDE 40 MG/4 ML VIAL IV STA (14:35)
[2020-08-16] MEDS ORDERED: ALBUT/IPRATROP 3MG/0.5MG NEB 3 ML VIAL NEB STA (14:35)
[2020-08-16 14:48] LABS: INR 1.3 (0.9-1.1); Partial Thromboplastin Ratio 0.9; Partial Thromboplastin Time 23.9 Seconds (21.0-31.0)
--- NOTE | 2020-08-16 16:06 | History & Physical Report ---
Date of Service August 16, 2020 Assessment & Plan (1) GI bleed: Unspecified source, presumed lower - chronic on acute ? - symptomatic anemia - Hemodynamically stable - Transfuse 1-2 units PRBC diurese in between - GI consult - Ferritin and iron studies pending (2) CHF (congestive heart failure): Increased in lower extremity edema, already given 120 mg Lasix in the EMD - observe response - Hold atenolol at this time, - he has remained on Atenolol secondary to preference, he was put on Metoprolol in Jan. (3) Permanent atrial fibrillation: As above, - Metoprolol- 5 mg IV q4 hr PRN for HR >110, can adjust or schedule if needed - Continue Atenolol when backk to PO - NPO after midnight for GI eval. (4) Anemia: As above - iron studies pending (5) Chronic kidney disease (CKD): CKD III with XIOMY - ENTRY LEVEL CHEMIST doubled from outpatient - Improve volume status - monitor renal function closely - FEUREA pending - UA pending- expect to see some casts with his renal function (6) COPD (chronic obstructive pulmonary disease): No acute needs, continue home inhalers - chronic oxygen therapy- continue - CPAP at night (7) Hyperlipidemia: Continue Atorvastatin (8) Hypertension: As above- offload volume (9) On home oxygen therapy: As above, chronic. Titrate to keep SP02> 88-92% History of Present Illness Primary Care Provider: Luis Manuel Mijares MD 75 YOM with past medical history of CAD with stent, permanent afib (on eliquis), FE deficient anemia, HFpEF, SHIRA, COPD, chronic home oxygen, Dig-toxicity, dialysis. Patient comes in today for complaints of blood in toilet, in his stool, and increase in shortness of breath as well as increase in lower extremity edema. He reports that this has been ongoing for the past 2 weeks, and up until then he was feeling much better, this is also reflected in his most recent cardiology note from May. The patient has been having complaints of blood in his lower GI tract since January. He did have a FNA (2018) for evaluation of submucosal gastric mass that was negative. He has been evaluated repeatedly for anemia in the outpatient setting prior to his January admission. In July 2018, he underwent an EGD & colonoscopy that did not indicate any sources of active bleeding, He then had a video capsule study that was unremarkable as well. He reportedly declined this service during his admission in April 2020. His bleeding is not associated with pain, denies hemorrhoids. He has not had any dark tarry stools or vomited any blood. He has noted some small clots in the toilet and on the toilet paper. His summation of amount of blood is difficult to discern. He is now short of breath when walking about 25 feet and his activity tolerance has gone down. He also endorses that he has not been urinating much after his Lasix dosing at home. Patient has a history of non-compliance and his does endorse dietary indiscretion with "junk food" and chips. The patient is overtly volume overloaded at this time and IS hemodynamically stable. He was noted to have a hemoglobin of 6.6 in the emergency room. He was typed and crossed, given 120 mg IV lasix, and 2 units of PRBC to be transfused upon my evaluation. Patient will be admitted to PCU for anemia, CHF exacerbation, GI consult. He will have iron studies in the morning, and will consult the CHF clinic and will hold his Eliquis for now. Patient was admitted in January 2020 for similar episode of anemia and concern for GI Bleeding. He received iron and 4 units PRBC. He suffered from an acute renal failure episode secondary to ATN and was supported with short term dialysis. He was also admitted in April for digoxin toxicity and above symptoms. His dig-toxicity was secondary to him taking this medication when it was discontinued. Allergies Allergy/AdvReac Type Severity Reaction Status Date / Time adhesive Allergy Mild TAPE-RASH Verified 08/16/20 13:31 oxycodone Allergy Mild RASH Verified 08/16/20 13:31 diltiazem Allergy Unknown Verified 08/16/20 13:31 Home Medications Medication Instructions Recorded Confirmed Type Calcium 600 + D(3) 1 cap PO BID 08/21/18 08/16/20 History cyanocobalamin (vitamin B-12) 1,000 mcg PO QAM 11/05/18 08/16/20 History [Vitamin B-12] albuterol sulfate 1 puff INHALATION Q6H PRN 04/12/20 08/16/20 History naproxen sodium 220 mg capsule 440 mg PO BID cap 04/21/20 08/16/20 History omeprazole 40 mg capsule,delayed 40 mg PO BID 04/21/20 08/16/20 History release triamcinolone acetonide 55 mcg 2 spray INTRANASAL DAILY 04/21/20 08/16/20 History nasal spray aerosol docusate sodium 100 mg capsule 100 mg PO BID PRN 05/18/20 08/16/20 History potassium chloride 10 mEq 10 meq PO QAM tab 05/18/20 08/16/20 History tablet,extended release apixaban 5 mg tablet 5 mg PO BID #180 tab 05/19/20 08/16/20 Rx furosemide 40 mg tablet 120 mg PO BID #540 tab 05/19/20 08/16/20 Rx atenolol 100 mg tablet 100 mg PO BID #180 tab 06/07/20 08/16/20 Rx atorvastatin 80 mg PO HS 08/16/20 08/16/20 History silicourycy-ksrvojhgq-qaghwbog 1 inh INHALATION QAM 08/16/20 08/16/20 History [Trelegy Ellipta] ipratropium-albuterol 3 ml INHALATION BID 08/16/20 08/16/20 History multivitamin 1 tab PO QDD 08/16/20 08/16/20 History omega 5-xfg-zsd-fish oil [Fish Oil] 1 cap PO QAM 08/16/20 08/16/20 History triamcinolone acetonide [Nasacort] 1 spray INTRANASAL HS 08/16/20 08/16/20 History Past Med/Surg History Medical History Acute blood loss anemia Acute exacerbation of CHF (congestive heart failure) Acute GI bleeding Acute hyperkalemia Acute hypotension Acute kidney injury XIOMY (acute kidney injury) Anemia Atrial fibrillation with slow ventricular response Walker esophagus Bilateral cellulitis of lower leg Cellulitis of right lower leg Chronic respiratory failure with hypoxia and hypercapnia Closed right hip fracture (04/05/13) Coagulopathy COPD exacerbation Difficulty swallowing Digoxin toxicity Digoxin toxicity Edema of left upper arm Gastritis, erosive Gastrointestinal hemorrhage GERD (gastroesophageal reflux disease) Hip fracture (04/03/13) History of heart artery stent History of prostate cancer Hyperlipidemia Hypertension Leg edema On anticoagulant therapy On home oxygen therapy S/P right hip fracture (04/05/13) Sleep apnea Subepithelial gastric mass Symptomatic bradycardia Surgical History History of bilateral cataract extraction History of cardiac cath History of colonoscopy History of esophagogastroduodenoscopy (EGD) History of lumbar surgery History of prostate biopsy History of prostatectomy History of right shoulder replacement History of total left hip replacement History of total right hip replacement History of umbilical hernia repair Hx of nasal septoplasty Family History Uncle Prostate cancer Mother Septicemia Father COPD (chronic obstructive pulmonary disease) Pancreatic cancer Other No family history of adverse response to anesthesia Social History Smoking Status: Smoker, status unknown Tobacco Type: Cigarettes Age Started Using Tobacco: 17; Age Quit Using Tobacco: 54; packs per day: 1; Years Smoked: 37; Second Hand Exposure: No; Hx Alcohol Use: Yes Alcohol type: hard liquor Alcohol Intake Frequency Comment: 2-3 daily Hx Substance Use: No Preferred Language: Indonesian Communication Ability: Effective Visual Impairment: No Limitations Hearing Ability: Use of Hearing Aid 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: No Beliefs That Will Affect Care: None marital status: Current Living Situation: Spouse 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 Feels Safe at Home: Yes Safety Concerns: Feels Safe At This Time Seatbelt Use: always Sunscreen Use: No Assistive Devices: Cane, Glasses and Oxygen - Continuous Review of Systems Review of Systems: REVIEW OF SYSTEMS: Constitutional: No fever, sweats or chills Eyes: No diplopia, no worsening or blurred vision ENT: normal hearing, no trouble swallowing Respiratory: (+) dyspnea at rest or on exertion, No cough, sputum, Cardiovascular: No chest pain, tightness or palpitations Abdomen: No pain, nausea, vomiting, diarrhea or constipation Musculoskeletal: No joint pain, calf pain, swelling Neurologic: No weakness, numbness/tingling, or balance problems Psychiatric: No anxiety or depression Skin: No rash or itch Physical Exam Physical Exam: PHYSICAL EXAM: General: awake, alert, no apparent distress Head: Normocephalic, atraumatic ENT: PERRL, EOMI, no pharyngeal exudate, mucous membranes moist Neuro: AAO x 3, speech clear and appropriate, strength intact bilaterally 5/5, sensation intact and equal all extremities and dermatomes, no pronator drift Chest: equal rise and fall of the chest, no accessory muscle use, no heaves or thrills, Clear to auscultation, on room air, Cardiac: Regular rate and rhythm, telemetry reviewed- afib, skin warm dry, cap refill <3 seconds, peripheral pules +2 no JVD, no murmur, (+) 3 pitting edema to thighs GI: NABS x 4 quadrants, soft, nontender to palpation, no rebound, guarding or tenderness : Spontaneously voiding, no pain, no CVA tenderness, Extremities: chronic venous insufficiency to bilateral lower extremities, mild erythema, calfs nontender to palpation Psych: Normal mood and affect Skin: no rash or erythema Results & Data Results & Data ([facility]) Vital Signs (Past 12 Hours) Vital Signs Temp Pulse Pulse Resp BP Pulse Ox 08/16/20 15:10 100 H 16 100 08/16/20 15:05 99 H 22 99 08/16/20 15:01 93 H 21 100 08/16/20 15:00 94 H 26 H 107/73 100 08/16/20 14:50 86 24 100 08/16/20 14:40 102 H 21 100 08/16/20 14:31 94 H 22 108/74 100 08/16/20 14:30 93 H 21 100 08/16/20 14:20 111 H 23 100 08/16/20 14:10 90 21 100 08/16/20 14:00 103 H 24 100 08/16/20 13:50 113 H 20 08/16/20 13:40 99 H 20 100 08/16/20 13:30 106 H 20 113/87 100 08/16/20 13:20 116 H 22 100 08/16/20 13:10 26 H 100 08/16/20 13:07 95 08/16/20 13:01 112 H 27 H 100 08/16/20 13:00 24 125/73 100 08/16/20 12:50 19 100 08/16/20 12:40 96 H 19 100 08/16/20 12:31 105 H 25 H 96/64 L 100 08/16/20 12:30 97 H 25 H 08/16/20 12:20 96 H 29 H 100 08/16/20 12:18 98 H 20 100 08/16/20 11:49 36.4 C L 101 H 97 H 105/74 97 Laboratory Results Abnormal lab results 08/16/20 08/16/20 08/16/20 Range/Units 12:15 13:57 13:57 RBC 2.23 L (4.7-6.1) M/uL Hgb 6.0 L* (14.0-18.0) g/dL Hct 20.5 L* (42-52) % MCHC 29.3 L (32-36) g/dL RDW Std Deviation 56.7 H (36.4-46.3) fL RDW Coeff of Ezekiel 17.0 H (11.5-14.5) % Neut # (Auto) 7.77 H (1.4-6.5) K/uL Lymph # (Auto) 1.13 L (1.2-3.4) K/uL [place] # (Auto) 1.29 H (0.11-0.59) K/uL Immature Gran # (Auto) 0.03 H (0.00-0.02) K/uL Absolute Nucleated RBC 0.03 H (0-0) K/uL PT (9.0-12.0) Seconds INR (0.9-1.1) Potassium 5.8 H (3.5-5.1) mmol/L BUN 48 H (7-18) mg/dl Creatinine 2.17 H (0.6-1.4) mg/dl BUN/Creatinine Ratio 22.1 H (10-20) Glucose 104 H (70-99) mg/dl Magnesium 3.1 H (1.8-2.4) mg/dl AST 13 L (15-37) U/L Alkaline Phosphatase 40 L (45-117) U/L NT-Pro-B Natriuret Pep 2371 H (0-900) pg/ml Albumin 3.3 L (3.4-5.0) gm/dl Urine Protein 3+ H (Negative) Urine Ketones Trace H (Negative) Ur Epithelial Cells 10-20 H (0-5) /lpf Amorphous Sediment Present A (None Prsent) Urine Bacteria 1+ H (Negative) Hyaline Casts 10-30 H (0-5) /lpf Urine Mucus Present A (None Prsent) Crossmatch 08/16/20 08/16/20 Range/Units 13:59 13:59 RBC (4.7-6.1) M/uL Hgb (14.0-18.0) g/dL Hct (42-52) % MCHC (32-36) g/dL RDW Std Deviation (36.4-46.3) fL RDW Coeff of Ezekiel (11.5-14.5) % Neut # (Auto) (1.4-6.5) K/uL Lymph # (Auto) (1.2-3.4) K/uL [place] # (Auto) (0.11-0.59) K/uL Immature Gran # (Auto) (0.00-0.02) K/uL Absolute Nucleated RBC (0-0) K/uL PT 13.0 H (9.0-12.0) Seconds INR 1.3 H (0.9-1.1) Potassium (3.5-5.1) mmol/L BUN (7-18) mg/dl Creatinine (0.6-1.4) mg/dl BUN/Creatinine Ratio (10-20) Glucose (70-99) mg/dl Magnesium (1.8-2.4) mg/dl AST (15-37) U/L Alkaline Phosphatase (45-117) U/L NT-Pro-B Natriuret Pep (0-900) pg/ml Albumin (3.4-5.0) gm/dl Urine Protein (Negative) Urine Ketones (Negative) Ur Epithelial Cells (0-5) /lpf Amorphous Sediment (None Prsent) Urine Bacteria (Negative) Hyaline Casts (0-5) /lpf Urine Mucus (None Prsent) Crossmatch See Detail Diagnostic Findings Chest X-Ray 08/16/20 13:05 XR chest 1V portable HISTORY: Dyspnea COMPARISON: Chest 04/12/2020. FINDINGS: No pneumothorax. The heart remains enlarged. Perihilar interstitial/vascular thickening with trace bilateral pleural effusions. This is similar to the prior study and consistent with mild pulmonary edema. Right shoulder prosthesis. IMPRESSION: No change in the mild pulmonary edema and trace bilateral pleural effusions. Electronically signed by: Sudeep Wolff M.D. 08/16/2020 1:33 PM Medications Administered Discontinued Medications Albuterol (Albut/Ipratrop 3mg/0.5mg Neb 3 Ml Vial) 3 ml NEB NOW STA Stop: 08/16/20 14:36 Last Admin: 08/16/20 15:03 Dose: 3 ml Documented by: [id number] Furosemide (Furosemide 40 Mg/4 Ml Vial) 120 mg IV NOW STA Stop: 08/16/20 14:36 Last Admin: 08/16/20 16:17 Dose: 120 mg Documented by: [id number] Home Medications Calcium 600 + D(3) 1 cap PO BID 08/21/18 [History Confirmed 08/16/20] cyanocobalamin (vitamin B-12) [Vitamin B-12] 1,000 mcg PO QAM 11/05/18 [History Confirmed 08/16/20] albuterol sulfate 1 puff INHALATION Q6H PRN 04/12/20 [History Confirmed 08/16/20] naproxen sodium 220 mg capsule 440 mg PO BID cap 04/21/20 [History Confirmed 08/16/20] omeprazole 40 mg capsule,delayed release 40 mg PO BID 04/21/20 [History Confirmed 08/16/20] triamcinolone acetonide 55 mcg nasal spray aerosol 2 spray INTRANASAL DAILY 04/21/20 [History Confirmed 08/16/20] docusate sodium 100 mg capsule 100 mg PO BID PRN 05/18/20 [History Confirmed 08/16/20] potassium chloride 10 mEq tablet,extended release 10 meq PO QAM tab 05/18/20 [History Confirmed 08/16/20] apixaban 5 mg tablet 5 mg PO BID #180 tab 05/19/20 [Rx Confirmed 08/16/20] furosemide 40 mg tablet 120 mg PO BID #540 tab 05/19/20 [Rx Confirmed 08/16/20] atenolol 100 mg tablet 100 mg PO BID #180 tab 06/07/20 [Rx Confirmed 08/16/20] atorvastatin 80 mg PO HS 08/16/20 [History Confirmed 08/16/20] kjafnowiqtd-vwdgpdjer-oqcqrqnr [Trelegy Ellipta] 1 inh INHALATION QAM 08/16/20 [History Confirmed 08/16/20] ipratropium-albuterol 3 ml INHALATION BID 08/16/20 [History Confirmed 08/16/20] multivitamin 1 tab PO QDD 08/16/20 [History Confirmed 08/16/20] omega 3-ese-luh-fish oil [Fish Oil] 1 cap PO QAM 08/16/20 [History Confirmed 08/16/20] triamcinolone acetonide [Nasacort] 1 spray INTRANASAL HS 08/16/20 [History Confirmed 08/16/20] Active Medications Sodium Chloride (Nss) 250 mls @ 15 mls/hr IV .[id number] PRN PRN Reason: For Transfusion Stop: 08/17/20 00:22 ECG Additional Comments: Atrial fibrillation with rapid ventricular response Low vo ltage QRS Code Status & VTE Plan Code Status CODE: FULL VTE: SCD's, ambulation, oob to chair ALL meals. VTE Prophylaxis Plan VTE Prophylaxis will be ordered: Yes Supervising Physician Co-Signing Physician Notes Patient was seen and examined independently I discussed the case with Nitish ZAFAR I reviewed pertinent past medical social family history and also the plan of care and agree with the plan of care. Patient is here with significant what appears to be peripheral edema marked anemia he is known to have heart failure preserved ejection fraction in the past and has had very similar presentations of this in the past. He has lower extremity edema such that he is weeping of fluid he has got open areas to his lower extremities he is dyspneic just sitting in bed he says he has been wheezing for a week prehospital. His examination reveals him to have wheezes in his upper air martínez he is on a percent sats on 4 L he is has a Menendez placed and was given Lasix therapy at this time Likely heart failure preserved ejection fraction or acute on chronic diastolic heart failure precipitated by significant anemia. In the past he has been unable to have a colonoscopy is although he recently reports some blood in his stools. Will re address these issues as his hospital stay progresses. He may benefit from heart failure clinic Any exceptions will be noted below PG Care Time/CCT Total # of Minutes Spent Total Time Spent with Patient: Total time spent is greater than 50% in coordination of care (as documented) at patient's floor/unit and/or counseling patient: Coding Level of Care Code 52163 Initial Inpt Care Lvl 3 Diagnoses GI bleed K92.2 GI bleed type/associated pathology: unspecified gastrointestinal hemorrhage type CHF (congestive heart failure) I50.9 Heart failure chronicity: unspecified Heart failure type: unspecified Permanent atrial fibrillation I48.2 Anemia D64.9 Anemia type: unspecified type Chronic kidney disease (CKD) N18.31 Chronic kidney disease stage: stage 3 (moderate) Chronic kidney disease stage 3 subtype: stage 3a (GFR 45-59) COPD (chronic obstructive pulmonary disease) J44.1 COPD type: COPD with acute exacerbation Hyperlipidemia E78.5 Hyperlipidemia type: unspecified Hypertension I10 Hypertension type: essential hypertension On home oxygen therapy Z99.81 (1) GI bleed GI bleed type/associated pathology: unspecified gastrointestinal hemorrhage type Qualified Code(s): K92.2 - Gastrointestinal hemorrhage, unspecified (2) CHF (congestive heart failure) Heart failure chronicity: unspecified Heart failure type: unspecified Qualified Code(s): I50.9 - Heart failure, unspecified (3) Anemia Anemia type: unspecified type Qualified Code(s): D64.9 - Anemia, unspecified (4) Hyperlipidemia Hyperlipidemia type: unspecified Qualified Code(s): E78.5 - Hyperlipidemia, unspecified (5) Chronic kidney disease (CKD) Chronic kidney disease stage: stage 3 (moderate) Chronic kidney disease stage 3 subtype: stage 3a (GFR 45-59) Qualified Code(s): N18.31 - Chronic kidney disease, stage 3a (6) COPD (chronic obstructive pulmonary disease) COPD type: COPD with acute exacerbation Qualified Code(s): J44.1 - Chronic obstructive pulmonary disease with (acute) exacerbation (7) Hypertension Hypertension type: essential hypertension Qualified Code(s): I10 - Essential (primary) hypertension
--- NOTE | 2020-08-16 17:12 | Electrocardiogram Report ---
Test Reason : Blood Pressure : / mmHG Vent. Rate : 104 BPM Atrial Rate : 093 BPM P-R Int : 000 ms QRS Dur : 096 ms QT Int : 330 ms P-R-T Axes : 000 000 035 degrees QTc Int : 433 ms Atrial fibrillation with rapid ventricular response Low voltage QRS Cannot rule out Anterior infarct (cited on or before 02-FEB-2020) Abnormal ECG When compared with ECG of 13-APR-2020 09:47, Vent. rate has increased BY 68 BPM Nonspecific T wave abnormality no longer evident in Lateral leads QT has lengthened Confirmed by Miguelangel Bauer ([id number]) on 08/16/2020 5:11:31 PM Referred By: Confirmed By:Bruce Bauer
[2020-08-16] MEDS ORDERED: ALBUTEROL HFA 8 GM INHALER INH PRN (19:35)
[2020-08-16] MEDS ORDERED: ONDANSETRON INJ 2 MG/ML 2 ML VIAL IV PRN (19:35)
[2020-08-16] MEDS ORDERED: METOPROLOL TARTRATE 1 MG/ML VIAL IV PRN (19:35)
[2020-08-16] MEDS ORDERED: DOCUSATE SODIUM 100 MG CAP PO PRN (19:35)
[2020-08-16 20:50] LABS: Creatinine Urine Random 52.4 mg/dl
[2020-08-16] MEDS: ALBUT/IPRATROP 3MG/0.5MG NEB 3 ML VIAL INH SCH (20:54)
[2020-08-16] MEDS: ATORVASTATIN 40 MG TAB PO SCH (20:57)
[2020-08-16] MEDS: PANTOprazole 40 MG TAB PO SCH (21:49)
[2020-08-16] MEDS: TRIAMCINOLONE ACET NASAL SPRAY 10.8ML BTL SCH (21:50)
[2020-08-17 01:42] LABS: Basophils # (auto) 0.02 K/uL (0-0.2); Basophils % (auto) 0.2 %; Eosinophils # (auto) 0.23 K/uL (0-0.5); Eosinophils % (auto) 2.7 %; Hematocrit (blood only) 22.6 % (42-52); Immature Granulocytes # (auto) 0.02 K/uL (0.00-0.02); Immature Granulocytes % (auto) 0.2 %; Lymphocytes # (auto) 1.15 K/uL (1.2-3.4); Lymphocytes % (auto) 13.4 %; Mean Corpuscular Volume 90.4 fL (80-100); Mean Platelet Volume 10.2 fL (7.4-10.4); Monocytes # (auto) 0.98 K/uL (0.11-0.59); Monocytes % (auto) 11.4 %; Neutrophils # (auto) 6.17 K/uL (1.4-6.5); Neutrophils % (auto) 72.1 %; Nucleated RBC # (auto) 0.03 K/uL (0-0); Nucleated RBC % (auto) 0.3 %; Platelet Count 252 K/uL (130-400); RDW Coefficient of Variation 16.5 % (11.5-14.5); RDW Standard Deviation 54.6 fL (36.4-46.3); White Blood Count 8.57 K/uL (4.8-10.8)
[2020-08-17 02:08] LABS: Hypochromasia Present; Ovalocytes 1+; Polychromasia 1+
[2020-08-17 06:59] LABS: Basophils # (auto) 0.02 K/uL (0-0.2); Basophils % (auto) 0.2 %; Eosinophils # (auto) 0.22 K/uL (0-0.5); Eosinophils % (auto) 2.6 %; Hematocrit (blood only) 24.3 % (42-52); Hemoglobin 7.4 g/dL (14.0-18.0); Immature Granulocytes # (auto) 0.02 K/uL (0.00-0.02); Immature Granulocytes % (auto) 0.2 %; Lymphocytes # (auto) 0.99 K/uL (1.2-3.4); Lymphocytes % (auto) 11.8 %; Mean Corpuscular Hemoglobin 27.7 pg (25-34); Mean Corpuscular Hgb Conc 30.5 g/dL (32-36); Mean Platelet Volume 10.1 fL (7.4-10.4); Monocytes % (auto) 9.5 %; Neutrophils # (auto) 6.35 K/uL (1.4-6.5); Neutrophils % (auto) 75.7 %; Nucleated RBC # (auto) 0.02 K/uL (0-0); Nucleated RBC % (auto) 0.3 %; Platelet Count 256 K/uL (130-400); RDW Coefficient of Variation 16.7 % (11.5-14.5); RDW Standard Deviation 55.1 fL (36.4-46.3); Red Blood Count 2.67 M/uL (4.7-6.1)
[2020-08-17] MEDS: ALBUT/IPRATROP 3MG/0.5MG NEB 3 ML VIAL INH SCH ×2 (07:06→17:57)
[2020-08-17 07:38] LABS: Calcium 8.8 mg/dl (8.5-10.1); Creatinine Clr Calc Pharmacy 51.8 ml/min; Est GFR (African American) 44.1 ml/min; Est GFR (Non-African American) 38.1 ml/min; Magnesium 2.9 mg/dl (1.8-2.4); Potassium 4.6 mmol/L (3.5-5.1)
[2020-08-17 07:43] LABS: Estimated Average Glucose 111 mg/dl; Hemoglobin A1C 5.5 % (4.5-5.6)
[2020-08-17 07:44] LABS: Ferritin 10.8 ng/ml (8-388)
[2020-08-17 07:48] LABS: Polychromasia 1+
[2020-08-17] MEDS ORDERED: FUROSEMIDE 120 MG in SYRINGE 0 ML IV ONE (08:10)
[2020-08-17] MEDS ORDERED: SODIUM CHLORIDE 0.9% 250 ML IV PRN (08:11)
[2020-08-17] MEDS ORDERED: FUROSEMIDE IV ONE (08:12)
[2020-08-17] MEDS ORDERED: SODIUM CHLORIDE 0.9% IV ONE (08:12)
--- NOTE | 2020-08-17 08:15 | Hospitalist Progress Note ---
Date of Service August 17, 2020 Assessment & Plan (1) GI bleed: Unspecified source, presumed lower but did have melena noted as well. Along with acute on chronic CHF exacerbation. (Weight 146.6kg on admission from 120s more dry weight, currently 141.5kg this AM) * On Eliquis and had been using Naproxen as he had not been told to avoid per his account (holding currently) * Transfused 2u PRBC on admission with 120mg IV lasix. * Additional 2u PRBC today for hgb 7.4 to get >8. Additional 120mg IV lasix provided. * Discussed with GI -- will need cardiac clearance. Clear liquid diet with bowel prep today with plans for scope in AM. NPO after midnight * Iron studies with low iron -- will avoid IV iron supplementation at the moment given hx transfusions requiring dialysis last year. * Will start daily supplementation once taking PO and continue at d/c * Cardiology consulted. Trop negative on admission. No CP reported. Telemetry to afib 90-100s. (2) Permanent atrial fibrillation: * As above, - Metoprolol- 5 mg IV q4 hr PRN for HR >110, can adjust or schedule if needed * Atenolol today x 1 if able to tolerate * NPO after midnight for GI eval (3) Anemia: * As above * iron studies as above --> low. Rec PO supplementation. 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 Nephrology following. * BMP in AM (5) COPD (chronic obstructive pulmonary disease): * No acute needs, continue home inhalers * chronic oxygen therapy- continue 4l NC -- currently 97% on 4L NC * CPAP at night (6) Hyperlipidemia: * Continue Atorvastatin when on PO (7) Hypertension: * As above- offload volume * BP low but asymptomatic * Continue diuresis as above * Holding atenolol for now (8) On home oxygen therapy: * As above, chronic. Titrate to keep SP02> 88-92% * On 4L chronically GERD/Barretts * On omeprazole 40mg PO BID * Put on protonix and changed to IVP BID currently and will continue overnight as NPO DVT Prophylaxis * Holding Eliquis for bleeding * SCDs Dispo: bowel prep/cardio clearance today NPO after midnight (9) Morbid obesity with BMI of 50.0-59.9, adult: (10) Acute blood loss anemia: (11) Chronic respiratory failure with hypoxia and hypercapnia: Admission and Anticipated Discharge Date Admission Date: August 16, 2020 Supervising Physician Co-Signing Physician Notes Attending Attestation: Chart reviewed in detail, care plan d/w PA Beth Momin. I agree w/ the blancas components of her documentation. Complex 75yo male with chronic resp failure on home O2, morbid obesity BMI 50, CAD, COPD, a.fib on eliquis - with acute blood loss anemia 2nd GI blood loss. s/p transfusion. GI consultation appreciated. Scheduled for EGD/colonoscopy 08/18. Trend labs. VSS thus far. Avila Abraham MD Subjective Patient evaluated this morning. Feeling better. Chronically on 4L NC. States over past week he has noticed increased swelling, edema, and shortness of breath. No increased abdominal fullness, nausea or vomiting. Good appetite. Has been taking naproxen on occasion for aches/pains - states he was never told not to take NSAIDs with his eliquis, as this could be cause for current bleeding. He states he has not had any further BM or bleeding noted. Will have liquid diet today and clearance by cardiology and scope by GI tomorrow. Has not yet seen cardiology but denies chest pain, tightness, palpitations. Chronically in afib on eliquis, rates 90-100s on monitor. Discussed switching to bumex to see if any improvement in diuresis. Patient agreeable. He states he is ok with CPR and ventilation as long as it's "not assisted". No fever, chills, chest pain, abdominal pain, nausea, vomiting or dysuria. Questions/concerns addressed at this time. Review of Systems Review of Systems: All systems reviewed & are unremarkable except as noted in HPI & below Physical Exam Physical Exam: PHYSICAL EXAM: General: awake, alert, no apparent distress, well nourished, well developed. morbidly obese. sitting up in bed eating lunch Head: Normocephalic, atraumatic ENT: PERRL, EOMI, no pharyngeal exudate, mucous membranes moist Neuro: AAO x 3, speech clear and appropriate, strength intact bilaterally 5/5, sensation intact and equal all extremities and dermatomes, no pronator drift Chest: equal rise and fall of the chest, no accessory muscle use, no heaves or thrills, diminished BS in bases. End expiratory wheezing posterior martínez. No crackles/rhonchi. 97% on chronic 4L NC Cardiac: irregularrly irregular, cap refil <3 seconds. 3+ pitting edema bi laterally up to thighs. NVI. pulses palpable. multiple excoriations to b/l LE noted GI: NABS x 4 quadrants, soft, nontender to palpation, no rebound, guarding or tenderness : Menendez with yellow urine draining, 600cc in bag currently Extremities: chronic venous insufficiency to bilateral lower extremities, mild erythema, calfs nontender to palpation Psych: Normal mood and affect Skin: no rash or erythema Results & Data Results & Data ([facility]) Vital Signs (Past 12 Hours) Vital Signs Temp Pulse Pulse Resp BP BP Pulse Ox 08/17/20 07:36 36.4 C L 96 H 23 126/69 99 08/17/20 07:06 80 18 99 08/17/20 04:04 36.8 C 92 H 13 130/74 98 08/16/20 23:43 98 H 08/16/20 23:27 36.9 C 81 20 112/71 95 08/16/20 22:00 87 20 94 08/16/20 21:52 36.9 C 81 20 112/71 95 08/16/20 21:22 36.5 C 102 H 20 111/74 99 08/16/20 21:07 36.7 C 100 H 21 128/59 L 96 08/16/20 20:54 92 H 16 94 08/16/20 20:44 36.8 C 20 121/76 100 Laboratory Results 08/17/20 08/17/20 08/17/20 Range/Units 06:37 06:37 06:37 WBC 8.40 (4.8-10.8) K/uL RBC 2.67 L (4.7-6.1) M/uL Hgb 7.4 L (14.0-18.0) g/dL Hct 24.3 L (42-52) % MCV 91.0 (80-100) fL MCH 27.7 (25-34) pg MCHC 30.5 L (32-36) g/dL RDW Std Deviation 55.1 H (36.4-46.3) fL RDW Coeff of Ezekiel 16.7 H (11.5-14.5) % Plt Count 256 (130-400) K/uL MPV 10.1 (7.4-10.4) fL Immature Gran % (Auto) 0.2 % Neut % (Auto) 75.7 % Lymph % (Auto) 11.8 % [place] % (Auto) 9.5 % Eos % (Auto) 2.6 % Baso % (Auto) 0.2 % Neut # (Auto) 6.35 (1.4-6.5) K/uL Lymph # (Auto) 0.99 L (1.2-3.4) K/uL [place] # (Auto) 0.80 H (0.11-0.59) K/uL Eos # (Auto) 0.22 (0-0.5) K/uL Baso # (Auto) 0.02 (0-0.2) K/uL Immature Gran # (Auto) 0.02 (0.00-0.02) K/uL Absolute Nucleated RBC 0.02 H (0-0) K/uL Nucleated RBC % (auto) 0.3 % Polychromasia 1+ Hypochromasia Poikilocytosis Anisocytosis Ovalocytes PT (9.0-12.0) Seconds INR (0.9-1.1) APTT (21.0-31.0) Seconds PTT Ratio Sodium 142 (136-145) mmol/L Potassium 4.6 D (3.5-5.1) mmol/L Chloride 104 (98-107) mmol/L Carbon Dioxide 33 H (21-32) mmol/L Anion Gap 5.0 (3-11) BUN 45 H (7-18) mg/dl Creatinine 1.74 H D (0.6-1.4) mg/dl Est Cr Clr Drug Dosing 51.8 Est GFR ( Amer) 44.1 ml/min Est GFR (Non-Af Amer) 38.1 ml/min BUN/Creatinine Ratio 26.0 H (10-20) Glucose 92 (70-99) mg/dl Estimat Average Glucose 111 mg/dl Hemoglobin A1c 5.5 (4.5-5.6) % Calcium 8.8 (8.5-10.1) mg/dl Magnesium 2.9 H (1.8-2.4) mg/dl Iron 30 L (35-175) mcg/dl Transferrin 283 (200-360) mg/dl Transferrin % Sat 7 L (20-50) % Ferritin 10.8 (8-388) ng/ml Total Bilirubin (0.2-1) mg/dl AST (15-37) U/L ALT (12-78) U/L Alkaline Phosphatase (45-117) U/L Troponin I (0-0.045) ng/ml NT-Pro-B Natriuret Pep (0-900) pg/ml Total Protein (6.4-8.2) gm/dl Albumin (3.4-5.0) gm/dl Globulin (2.5-4.0) gm/dl Albumin/Globulin Ratio (0.9-2) Urine Color Urine Appearance (Clear) Urine pH (4.5-7.5) Ur Specific [place] (1.000-1.030) Urine Protein (Negative) Urine Glucose (UA) (Negative) Urine Ketones (Negative) Urine Blood (Negative) Urine Nitrite (Negative) Urine Bilirubin (Negative) Urine Urobilinogen (Negative) Ur Leukocyte Esterase (Negative) Urine WBC (Auto) Urine RBC (Auto) U Hyaline Cast (Auto) U Epithel Cells (Auto) Urine Bacteria (Auto) Urine RBC (0-4) /hpf Urine WBC (0-5) /hpf Ur Epithelial Cells (0-5) /lpf Ur Renal Epithelial Cell Urine Crystals Calcium Oxalate Crystal Uric Acid Crystals Triple Phos Crystals Other Crystals Amorphous Sediment (None Prsent) Urine Bacteria (Negative) Hyaline Casts (0-5) /lpf Granular Casts Waxy Casts RBC Casts WBC Casts Other Casts Urine Mucus (None Prsent) Urine Other Urine Trichomonas Urine Yeast Urine Sperm Ur Oval Fat Bodies Ur Random Creatinine mg/dl Ur Random Urea Nitrogn mg/dl COVID-19 Eval Order SARS-CoV-2 (PCR) (Negative) Blood Type Antibody Screen Crossmatch 08/17/20 08/16/20 08/16/20 Range/Units 00:56 Unknown 14:32 WBC 8.57 (4.8-10.8) K/uL RBC 2.50 L (4.7-6.1) M/uL Hgb 7.0 L (14.0-18.0) g/dL Hct 22.6 L (42-52) % MCV 90.4 (80-100) fL MCH 28.0 (25-34) pg MCHC 31.0 L (32-36) g/dL RDW Std Deviation 54.6 H (36.4-46.3) fL RDW Coeff of Ezekiel 16.5 H (11.5-14.5) % Plt Count 252 (130-400) K/uL MPV 10.2 (7.4-10.4) fL Immature Gran % (Auto) 0.2 % Neut % (Auto) 72.1 % Lymph % (Auto) 13.4 % [place] % (Auto) 11.4 % Eos % (Auto) 2.7 % Baso % (Auto) 0.2 % Neut # (Auto) 6.17 (1.4-6.5) K/uL Lymph # (Auto) 1.15 L (1.2-3.4) K/uL [place] # (Auto) 0.98 H (0.11-0.59) K/uL Eos # (Auto) 0.23 (0-0.5) K/uL Baso # (Auto) 0.02 (0-0.2) K/uL Immature Gran # (Auto) 0.02 (0.00-0.02) K/uL Absolute Nucleated RBC 0.03 H (0-0) K/uL Nucleated RBC % (auto) 0.3 % Polychromasia 1+ Hypochromasia Present Poikilocytosis Anisocytosis Ovalocytes 1+ PT (9.0-12.0) Seconds INR (0.9-1.1) APTT (21.0-31.0) Seconds PTT Ratio Sodium (136-145) mmol/L Potassium (3.5-5.1) mmol/L Chloride (98-107) mmol/L Carbon Dioxide (21-32) mmol/L Anion Gap (3-11) BUN (7-18) mg/dl Creatinine (0.6-1.4) mg/dl Est Cr Clr Drug Dosing Est GFR ( Amer) ml/min Est GFR (Non-Af Amer) ml/min BUN/Creatinine Ratio (10-20) Glucose (70-99) mg/dl Estimat Average Glucose mg/dl Hemoglobin A1c (4.5-5.6) % Calcium (8.5-10.1) mg/dl Magnesium (1.8-2.4) mg/dl Iron (35-175) mcg/dl Transferrin (200-360) mg/dl Transferrin % Sat (20-50) % Ferritin (8-388) ng/ml Total Bilirubin (0.2-1) mg/dl AST (15-37) U/L ALT (12-78) U/L Alkaline Phosphatase (45-117) U/L Troponin I (0-0.045) ng/ml NT-Pro-B Natriuret Pep (0-900) pg/ml Total Protein (6.4-8.2) gm/dl Albumin (3.4-5.0) gm/dl Globulin (2.5-4.0) gm/dl Albumin/Globulin Ratio (0.9-2) Urine Color Urine Appearance (Clear) Urine pH (4.5-7.5) Ur Specific [place] (1.000-1.030) Urine Protein (Negative) Urine Glucose (UA) (Negative) Urine Ketones (Negative) Urine Blood (Negative) Urine Nitrite (Negative) Urine Bilirubin (Negative) Urine Urobilinogen (Negative) Ur Leukocyte Esterase (Negative) Urine WBC (Auto) Urine RBC (Auto) U Hyaline Cast (Auto) U Epithel Cells (Auto) Urine Bacteria (Auto) Urine RBC (0-4) /hpf Urine WBC (0-5) /hpf Ur Epithelial Cells (0-5) /lpf Ur Renal Epithelial Cell Urine Crystals Calcium Oxalate Crystal Uric Acid Crystals Triple Phos Crystals Other Crystals Amorphous Sediment (None Prsent) Urine Bacteria (Negative) Hyaline Casts (0-5) /lpf Granular Casts Waxy Casts RBC Casts WBC Casts Other Casts Urine Mucus (None Prsent) Urine Other Urine Trichomonas Urine Yeast Urine Sperm Ur Oval Fat Bodies Ur Random Creatinine 52.4 mg/dl Ur Random Urea Nitrogn 255 mg/dl COVID-19 Eval Order SARS-CoV-2 (PCR) NEGATIVE (Negative) Blood Type Antibody Screen Crossmatch 08/16/20 08/16/20 08/16/20 Range/Units 14:32 13:59 13:59 WBC (4.8-10.8) K/uL RBC (4.7-6.1) M/uL Hgb (14.0-18.0) g/dL Hct (42-52) % MCV (80-100) fL MCH (25-34) pg MCHC (32-36) g/dL RDW Std Deviation (36.4-46.3) fL RDW Coeff of Ezekiel (11.5-14.5) % Plt Count (130-400) K/uL MPV (7.4-10.4) fL Immature Gran % (Auto) % Neut % (Auto) % Lymph % (Auto) % [place] % (Auto) % Eos % (Auto) % Baso % (Auto) % Neut # (Auto) (1.4-6.5) K/uL Lymph # (Auto) (1.2-3.4) K/uL [place] # (Auto) (0.11-0.59) K/uL Eos # (Auto) (0-0.5) K/uL Baso # (Auto) (0-0.2) K/uL Immature Gran # (Auto) (0.00-0.02) K/uL Absolute Nucleated RBC (0-0) K/uL Nucleated RBC % (auto) % Polychromasia Hypochromasia Poikilocytosis Anisocytosis Ovalocytes PT 13.0 H (9.0-12.0) Seconds INR 1.3 H (0.9-1.1) APTT 23.9 (21.0-31.0) Seconds PTT Ratio 0.9 Sodium (136-145) mmol/L Potassium (3.5-5.1) mmol/L Chloride (98-107) mmol/L Carbon Dioxide (21-32) mmol/L Anion Gap (3-11) BUN (7-18) mg/dl Creatinine (0.6-1.4) mg/dl Est Cr Clr Drug Dosing Est GFR ( Amer) ml/min Est GFR (Non-Af Amer) ml/min BUN/Creatinine Ratio (10-20) Glucose (70-99) mg/dl Estimat Average Glucose mg/dl Hemoglobin A1c (4.5-5.6) % Calcium (8.5-10.1) mg/dl Magnesium (1.8-2.4) mg/dl Iron (35-175) mcg/dl Transferrin (200-360) mg/dl Transferrin % Sat (20-50) % Ferritin (8-388) ng/ml Total Bilirubin (0.2-1) mg/dl AST (15-37) U/L ALT (12-78) U/L Alkaline Phosphatase (45-117) U/L Troponin I (0-0.045) ng/ml NT-Pro-B Natriuret Pep (0-900) pg/ml Total Protein (6.4-8.2) gm/dl Albumin (3.4-5.0) gm/dl Globulin (2.5-4.0) gm/dl Albumin/Globulin Ratio (0.9-2) Urine Color Urine Appearance (Clear) Urine pH (4.5-7.5) Ur Specific [place] (1.000-1.030) Urine Protein (Negative) Urine Glucose (UA) (Negative) Urine Ketones (Negative) Urine Blood (Negative) Urine Nitrite (Negative) Urine Bilirubin (Negative) Urine Urobilinogen (Negative) Ur Leukocyte Esterase (Negative) Urine WBC (Auto) Urine RBC (Auto) U Hyaline Cast (Auto) U Epithel Cells (Auto) Urine Bacteria (Auto) Urine RBC (0-4) /hpf Urine WBC (0-5) /hpf Ur Epithelial Cells (0-5) /lpf Ur Renal Epithelial Cell Urine Crystals Calcium Oxalate Crystal Uric Acid Crystals Triple Phos Crystals Other Crystals Amorphous Sediment (None Prsent) Urine Bacteria (Negative) Hyaline Casts (0-5) /lpf Granular Casts Waxy Casts RBC Casts WBC Casts Other Casts Urine Mucus (None Prsent) Urine Other Urine Trichomonas Urine Yeast Urine Sperm Ur Oval Fat Bodies Ur Random Creatinine mg/dl Ur Random Urea Nitrogn mg/dl COVID-19 Eval Order Covid19 at [facility] SARS-CoV-2 (PCR) (Negative) Blood Type A Positive Antibody Screen NEGATIVE Crossmatch See Detail 08/16/20 08/16/20 08/16/20 Range/Units 13:57 13:57 13:07 WBC 10.40 (4.8-10.8) K/uL RBC 2.23 L (4.7-6.1) M/uL Hgb 6.0 L* (14.0-18.0) g/dL Hct 20.5 L* (42-52) % MCV 91.9 (80-100) fL MCH 26.9 (25-34) pg MCHC 29.3 L (32-36) g/dL RDW Std Deviation 56.7 H (36.4-46.3) fL RDW Coeff of Ezekiel 17.0 H (11.5-14.5) % Plt Count 311 (130-400) K/uL MPV 10.1 (7.4-10.4) fL Immature Gran % (Auto) 0.3 % Neut % (Auto) 74.7 % Lymph % (Auto) 10.9 % [place] % (Auto) 12.4 % Eos % (Auto) 1.4 % Baso % (Auto) 0.3 % Neut # (Auto) 7.77 H (1.4-6.5) K/uL Lymph # (Auto) 1.13 L (1.2-3.4) K/uL [place] # (Auto) 1.29 H (0.11-0.59) K/uL Eos # (Auto) 0.15 (0-0.5) K/uL Baso # (Auto) 0.03 (0-0.2) K/uL Immature Gran # (Auto) 0.03 H (0.00-0.02) K/uL Absolute Nucleated RBC 0.03 H (0-0) K/uL Nucleated RBC % (auto) 0.3 % Polychromasia Hypochromasia Poikilocytosis Present Anisocytosis Present Ovalocytes PT (9.0-12.0) Seconds INR (0.9-1.1) APTT (21.0-31.0) Seconds PTT Ratio Sodium 141 (136-145) mmol/L Potassium 5.8 H (3.5-5.1) mmol/L Chloride 105 (98-107) mmol/L Carbon Dioxide 31 (21-32) mmol/L Anion Gap 5.0 (3-11) BUN 48 H (7-18) mg/dl Creatinine 2.17 H (0.6-1.4) mg/dl Est Cr Clr Drug Dosing Not Reportable Est GFR ( Amer) 33.8 ml/min Est GFR (Non-Af Amer) 29.1 ml/min BUN/Creatinine Ratio 22.1 H (10-20) Glucose 104 H (70-99) mg/dl Estimat Average Glucose mg/dl Hemoglobin A1c (4.5-5.6) % Calcium 8.8 (8.5-10.1) mg/dl Magnesium 3.1 H (1.8-2.4) mg/dl Iron (35-175) mcg/dl Transferrin (200-360) mg/dl Transferrin % Sat (20-50) % Ferritin (8-388) ng/ml Total Bilirubin 0.6 (0.2-1) mg/dl AST 13 L (15-37) U/L ALT 12 (12-78) U/L Alkaline Phosphatase 40 L (45-117) U/L Troponin I < 0.015 (0-0.045) ng/ml NT-Pro-B Natriuret Pep 2371 H (0-900) pg/ml Total Protein 6.6 (6.4-8.2) gm/dl Albumin 3.3 L (3.4-5.0) gm/dl Globulin 3.3 (2.5-4.0) gm/dl Albumin/Globulin Ratio 1.0 (0.9-2) Urine Color Cancelled Urine Appearance Cancelled (Clear) Urine pH Cancelled (4.5-7.5) Ur Specific [place] Cancelled (1.000-1.030) Urine Protein Cancelled (Negative) Urine Glucose (UA) Cancelled (Negative) Urine Ketones Cancelled (Negative) Urine Blood Cancelled (Negative) Urine Nitrite Cancelled (Negative) Urine Bilirubin Cancelled (Negative) Urine Urobilinogen Cancelled (Negative) Ur Leukocyte Esterase Cancelled (Negative) Urine WBC (Auto) Cancelled Urine RBC (Auto) Cancelled U Hyaline Cast (Auto) Cancelled U Epithel Cells (Auto) Cancelled Urine Bacteria (Auto) Cancelled Urine RBC (0-4) /hpf Urine WBC (0-5) /hpf Ur Epithelial Cells (0-5) /lpf Ur Renal Epithelial Cell Cancelled Urine Crystals Cancelled Calcium Oxalate Crystal Cancelled Uric Acid Crystals Cancelled Triple Phos Crystals Cancelled Other Crystals Cancelled Amorphous Sediment Cancelled (None Prsent) Urine Bacteria (Negative) Hyaline Casts (0-5) /lpf Granular Casts Cancelled Waxy Casts Cancelled RBC Casts Cancelled WBC Casts Cancelled Other Casts Cancelled Urine Mucus Cancelled (None Prsent) Urine Other Cancelled Urine Trichomonas Cancelled Urine Yeast Cancelled Urine Sperm Cancelled Ur Oval Fat Bodies Cancelled Ur Random Creatinine mg/dl Ur Random Urea Nitrogn mg/dl COVID-19 Eval Order SARS-CoV-2 (PCR) (Negative) Blood Type Antibody Screen Crossmatch 08/16/20 Range/Units 12:15 WBC (4.8-10.8) K/uL RBC (4.7-6.1) M/uL Hgb (14.0-18.0) g/dL Hct (42-52) % MCV (80-100) fL MCH (25-34) pg MCHC (32-36) g/dL RDW Std Deviation (36.4-46.3) fL RDW Coeff of Ezekiel (11.5-14.5) % Plt Count (130-400) K/uL MPV (7.4-10.4) fL Immature Gran % (Auto) % Neut % (Auto) % Lymph % (Auto) % [place] % (Auto) % Eos % (Auto) % Baso % (Auto) % Neut # (Auto) (1.4-6.5) K/uL Lymph # (Auto) (1.2-3.4) K/uL [place] # (Auto) (0.11-0.59) K/uL Eos # (Auto) (0-0.5) K/uL Baso # (Auto) (0-0.2) K/uL Immature Gran # (Auto) (0.00-0.02) K/uL Absolute Nucleated RBC (0-0) K/uL Nucleated RBC % (auto) % Polychromasia Hypochromasia Poikilocytosis Anisocytosis Ovalocytes PT (9.0-12.0) Seconds INR (0.9-1.1) APTT (21.0-31.0) Seconds PTT Ratio Sodium (136-145) mmol/L Potassium (3.5-5.1) mmol/L Chloride (98-107) mmol/L Carbon Dioxide (21-32) mmol/L Anion Gap (3-11) BUN (7-18) mg/dl Creatinine (0.6-1.4) mg/dl Est Cr Clr Drug Dosing Est GFR ( Amer) ml/min Est GFR (Non-Af Amer) ml/min BUN/Creatinine Ratio (10-20) Glucose (70-99) mg/dl Estimat Average Glucose mg/dl Hemoglobin A1c (4.5-5.6) % Calcium (8.5-10.1) mg/dl Magnesium (1.8-2.4) mg/dl Iron (35-175) mcg/dl Transferrin (200-360) mg/dl Transferrin % Sat (20-50) % Ferritin (8-388) ng/ml Total Bilirubin (0.2-1) mg/dl AST (15-37) U/L ALT (12-78) U/L Alkaline Phosphatase (45-117) U/L Troponin I (0-0.045) ng/ml NT-Pro-B Natriuret Pep (0-900) pg/ml Total Protein (6.4-8.2) gm/dl Albumin (3.4-5.0) gm/dl Globulin (2.5-4.0) gm/dl Albumin/Globulin Ratio (0.9-2) Urine Color Yellow Urine Appearance Clear (Clear) Urine pH 5.0 (4.5-7.5) Ur Specific [place] 1.025 (1.000-1.030) Urine Protein 3+ H (Negative) Urine Glucose (UA) Negative (Negative) Urine Ketones Trace H (Negative) Urine Blood Negative (Negative) Urine Nitrite Negative (Negative) Urine Bilirubin Negative (Negative) Urine Urobilinogen Negative (Negative) Ur Leukocyte Esterase Negative (Negative) Urine WBC (Auto) Urine RBC (Auto) U Hyaline Cast (Auto) U Epithel Cells (Auto) Urine Bacteria (Auto) Urine RBC 0-4 (0-4) /hpf Urine WBC 0-5 (0-5) /hpf Ur Epithelial Cells 10-20 H (0-5) /lpf Ur Renal Epithelial Cell Urine Crystals Calcium Oxalate Crystal Uric Acid Crystals Triple Phos Crystals Other Crystals Amorphous Sediment Present A (None Prsent) Urine Bacteria 1+ H (Negative) Hyaline Casts 10-30 H (0-5) /lpf Granular Casts Waxy Casts RBC Casts WBC Casts Other Casts Urine Mucus Present A (None Prsent) Urine Other Urine Trichomonas Urine Yeast Urine Sperm Ur Oval Fat Bodies Ur Random Creatinine mg/dl Ur Random Urea Nitrogn mg/dl COVID-19 Eval Order SARS-CoV-2 (PCR) (Negative) Blood Type Antibody Screen Crossmatch PG Care Time/CCT Total # of Minutes Spent Total Time Spent with Patient: Total time spent is greater than 50% in coordination of care (as documented) at patient's floor/unit and/or counseling patient: Coding Level of Care Code 68234 Subseq Hosp Care Lvl 3 Diagnoses GI bleed K92.2 GI bleed type/associated pathology: unspecified gastrointestinal hemorrhage type Permanent atrial fibrillation I48.2 Anemia D64.9 Anemia type: unspecified type Chronic kidney disease (CKD) N18.31 Chronic kidney disease stage: stage 3 (moderate) Chronic kidney disease stage 3 subtype: stage 3a (GFR 45-59) COPD (chronic obstructive pulmonary disease) J44.1 COPD type: COPD with acute exacerbation Hyperlipidemia E78.5 Hyperlipidemia type: unspecified Hypertension I10 Hypertension type: essential hypertension On home oxygen therapy Z99.81 Morbid obesity with BMI of 50.0-59.9, adult E66.01; Z68.43 Acute blood loss anemia D62 Chronic respiratory failure with hypoxia and hypercapnia J96.11; J96.12 (1) GI bleed GI bleed type/associated pathology: unspecified gastrointestinal hemorrhage type Qualified Code(s): K92.2 - Gastrointestinal hemorrhage, unspecified (2) Anemia Anemia type: unspecified type Qualified Code(s): D64.9 - Anemia, unspecified (3) Hyperlipidemia Hyperlipidemia type: unspecified Qualified Code(s): E78.5 - Hyperlipidemia, unspecified (4) Chronic kidney disease (CKD) Chronic kidney disease stage: stage 3 (moderate) Chronic kidney disease stage 3 subtype: stage 3a (GFR 45-59) Qualified Code(s): N18.31 - Chronic kidney disease, stage 3a (5) COPD (chronic obstructive pulmonary disease) COPD type: COPD with acute exacerbation Qualified Code(s): J44.1 - Chronic obstructive pulmonary disease with (acute) exacerbation (6) Hypertension Hypertension type: essential hypertension Qualified Code(s): I10 - Essential (primary) hypertension
[2020-08-17] MEDS: PANTOprazole 40 MG in SYRINGE 0 ML IV SCH ×3 (08:36→20:39)
[2020-08-17] MEDS: UMECLIDINIUM/VILANTEROL 62.5/25MCG 7 PUFFS/INHALER INH SCH (08:36)
[2020-08-17] MEDS: OMEGA-3 (PURIFIED FISH OIL) 1 GM CAP PO SCH (08:36)
[2020-08-17] MEDS: FLUTICASONE FUROATE 100MCG 14 PUFFS/INHALER INH SCH (08:37)
[2020-08-17] MEDS ORDERED: NON-FORMULARY MEDICATION (Fluticasone-Umeclidin-Vilanter [Trelegy Ellipta] 100-62.5-25 mcg INH SCH (09:00)
[2020-08-17 09:22] LABS: Folate (Folic Acid) > 20.00 ng/ml (>5.38); Vitamin B12 513 pg/ml (193-986)
[2020-08-17] MEDS ORDERED: acetaZOLAMIDE 250 MG TAB PO ONE (09:42)
--- NOTE | 2020-08-17 10:02 | Nephrology Consultation ---
Date of Consultation August 17, 2020 Assessment & Plan (1) Acute kidney injury: * XIOMY due to renal hypoperfusion from profound anemia in the setting of NSAID therapy * Agree w/ holding Apixaban and Alleve * Urine sediment is negative for casts, patient remains nonoliguric, electrolyte balance is acceptable. No acute indication for BUSINESS CONT[employer] GLOBAL [employer]OR at this time * Monitor PRP (2) Anemia: * Agree w/ blood transfusion to maintain Hgb > 8 * Consider GI evaluation * Cardiology to assess risks/benefits to longterm anticoagulation (3) CHF (congestive heart failure): * Follows closely w/ Cardiology. Previously CHF was compensated * Diuretics as per Cardiology. Outpatient Furosemide dose was 120 mg po BID History of Present Illness Reason for Consultation: XIOMY Attending Physician: Avila Abraham History of Present Illness Mr. Anderson is a 75 year old white male who is seen at the request of Dr. Abraham for evaluation of XIOMY. Medical records in the EMR were reviewed today and are summarized as follows: Mr. Anderson's medical history is significant for ASCVD s/p PCI with stenting, HFpEF, permanent atrial fibrillation (on apixaban, h/o digoxin toxicity), iron deficient anemia, SHIRA, COPD requiring chronic home oxygen. and osteoarthritis managed w/ OTC Alleve BID. He has suffered from recurrent LGI bleeding. In 02/18 he became profoundly anemic and developed XIOMY w/ hyperkalemia requiring two sessions of acute HD. Mr. Anderson's baseline Cr is 0.8. He reports that over the last two weeks he has been experiencing melena and hematochezia. This has been accompanied by progressive weakness, LE swelling, dyspnea and lower back pain. Mr. Anderson presented to the [facility] ED yesterday evening where Hgb was 6.0, Cr 2.7, K 5.8 and CXR revealed mild pulmonary vascular congestion. He was transfused 2 U PRBC and given 120 mg Furosemide IV x1. Apixaban and Alleve have been held. Mr. Anderson has a raphael catheter in place draining clear yellow urine. He reports that his breathing this morning is subjectively improved Allergies Allergy/AdvReac Type Severity Reaction Status Date / Time adhesive Allergy Mild TAPE-RASH Verified 08/16/20 13:31 oxycodone Allergy Mild RASH Verified 08/16/20 13:31 diltiazem Allergy Unknown Verified 08/16/20 13:31 Home Medications Medication Instructions Recorded Confirmed Type Calcium 600 + D(3) 1 cap PO BID 08/21/18 08/16/20 History cyanocobalamin (vitamin B-12) 1,000 mcg PO QAM 11/05/18 08/16/20 History [Vitamin B-12] albuterol sulfate 1 puff INHALATION Q6H PRN 04/12/20 08/16/20 History naproxen sodium 220 mg capsule 440 mg PO BID cap 04/21/20 08/16/20 History omeprazole 40 mg capsule,delayed 40 mg PO BID 04/21/20 08/16/20 History release triamcinolone acetonide 55 mcg 2 spray INTRANASAL DAILY 04/21/20 08/16/20 History nasal spray aerosol docusate sodium 100 mg capsule 100 mg PO BID PRN 05/18/20 08/16/20 History potassium chloride 10 mEq 10 meq PO QAM tab 05/18/20 08/16/20 History tablet,extended release apixaban 5 mg tablet 5 mg PO BID #180 tab 05/19/20 08/16/20 Rx furosemide 40 mg tablet 120 mg PO BID #540 tab 05/19/20 08/16/20 Rx atenolol 100 mg tablet 100 mg PO BID #180 tab 06/07/20 08/16/20 Rx atorvastatin 80 mg PO HS 08/16/20 08/16/20 History mxukfulktnb-emxofdusm-djsagrcc 1 inh INHALATION QAM 08/16/20 08/16/20 History [Trelegy Ellipta] ipratropium-albuterol 3 ml INHALATION BID 08/16/20 08/16/20 History multivitamin 1 tab PO QDD 08/16/20 08/16/20 History omega 6-ial-jit-fish oil [Fish Oil] 1 cap PO QAM 08/16/20 08/16/20 History triamcinolone acetonide [Nasacort] 1 spray INTRANASAL HS 08/16/20 08/16/20 History Patient History Medical History Acute blood loss anemia Acute exacerbation of CHF (congestive heart failure) Acute GI bleeding Acute hyperkalemia Acute hypotension Acute kidney injury XIOMY (acute kidney injury) Anemia Atrial fibrillation with slow ventricular response Walker esophagus Bilateral cellulitis of lower leg Cellulitis of right lower leg Chronic respiratory failure with hypoxia and hypercapnia Closed right hip fracture (04/05/13) Coagulopathy COPD exacerbation Difficulty swallowing Digoxin toxicity Digoxin toxicity Edema of left upper arm Gastritis, erosive Gastrointestinal hemorrhage GERD (gastroesophageal reflux disease) Hip fracture (04/03/13) History of heart artery stent x1 2008 @ [facility] by Dr. Luna History of prostate cancer Hyperlipidemia Hypertension Leg edema On anticoagulant therapy On home oxygen therapy 2-3L N/C at all times S/P right hip fracture (04/05/13) Sleep apnea CPAP with 2-3L Subepithelial gastric mass Symptomatic bradycardia Surgical History History of bilateral cataract extraction History of cardiac cath 2008 @ [facility] - HAD STENT X1 History of colonoscopy History of esophagogastroduodenoscopy (EGD) EUS 03/2019 [facility] EUS 11/21/18 Glidescope 4 with grade 1 view History of lumbar surgery hardware in place History of prostate biopsy malignant History of prostatectomy History of right shoulder replacement History of total left hip replacement History of total right hip replacement History of umbilical hernia repair Hx of nasal septoplasty Family History Uncle Prostate cancer Mother Septicemia Father COPD (chronic obstructive pulmonary disease) Pancreatic cancer Other No family history of adverse response to anesthesia Social History Smoking Status: Smoker, status unknown Tobacco Type: Cigarettes Age Started Using Tobacco: 17; Age Quit Using Tobacco: 54; packs per day: 1; Years Smoked: 37; Second Hand Exposure: No; Hx Alcohol Use: Yes Alcohol type: hard liquor Alcohol Intake Frequency Comment: 2-3 daily Hx Substance Use: No Preferred Language: Uzbek Communication Ability: Effective Visual Impairment: No Limitations Hearing Ability: Use of Hearing Aid Sports Book Board Attendant Required: No Beliefs That Will Affect Care: None marital status: Current Living Situation: Spouse 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 Feels Safe at Home: Yes Safety Concerns: Feels Safe At This Time Seatbelt Use: always Sunscreen Use: No Assistive Devices: Cane, CPAP and Oxygen - Continuous Review of Systems Constitutional: + weakness; no fever Eyes: no problem reported Ear, Nose, Mouth, Throat: no problem reported Respiratory: + dyspnea Cardiovascular: + edema; no chest pain and no palpitations Gastrointestinal: + blood in stools and + melena; no abdominal pain, no nausea and no diarrhea/loose stools Musculoskeletal: + back pain Neurologic: no falls, no dizziness and no confusion Physical Exam Constitutional: + obese; not in distress Eyes: PERRL, conjunctivae normal, anicteric sclerae ENMT: external ear and nose normal, oropharynx normal Neck: trachea midline, no thyromegaly Respiratory: normal respiratory effort, lungs clear to auscultation Cardiovascular: Rate/Rhythm: + irregularly irregular Extremities: + edema (2+ pretibial pitting edema) Gastrointestinal (Abdomen): normal bowel sounds, soft, nontender, no hepatosplenomegaly Musculoskeletal: Extremities: no cyanosis Skin: no rashes, warm and dry Neurologic: awake; not confused Results & Data ([facility]) Vital Signs (Past 12 Hours) Vital Signs Temp Pulse Pulse Resp BP BP Pulse Ox 08/17/20 07:36 36.4 C L 96 H 23 126/69 99 08/17/20 07:06 80 18 99 08/17/20 04:04 36.8 C 92 H 13 130/74 98 08/16/20 23:43 98 H 08/16/20 23:27 36.9 C 81 20 112/71 95 08/16/20 22:00 87 20 94 08/16/20 21:52 36.9 C 81 20 112/71 95 Laboratory Tests 04/25/20 05/18/20 08/16/20 12:08 12:04 12:15 WBC Hgb Hct Plt Count Sodium Potassium Chloride Carbon Dioxide BUN Creatinine 0.85 1.06 Estimat Average Glucose Urine Color Yellow Urine Appearance Clear Urine pH 5.0 Ur Specific [place] 1.025 Urine Protein 3+ H Urine Glucose (UA) Negative Urine Ketones Trace H Urine Blood Negative Urine Nitrite Negative Urine Bilirubin Negative Urine Urobilinogen Negative Ur Leukocyte Esterase Negative Urine RBC 0-4 Urine WBC 0-5 Ur Epithelial Cells 10-20 H Amorphous Sediment Present A Urine Bacteria 1+ H Hyaline Casts 10-30 H Urine Mucus Present A Ur Random Creatinine Ur Random Urea Nitrogn 08/16/20 08/16/20 08/17/20 13:57 Unknown 06:37 WBC 8.40 Hgb 7.4 L Hct 24.3 L Plt Count 256 Sodium Potassium Chloride Carbon Dioxide BUN Creatinine 2.17 H Estimat Average Glucose Urine Color Urine Appearance Urine pH Ur Specific [place] Urine Protein Urine Glucose (UA) Urine Ketones Urine Blood Urine Nitrite Urine Bilirubin Urine Urobilinogen Ur Leukocyte Esterase Urine RBC Urine WBC Ur Epithelial Cells Amorphous Sediment Urine Bacteria Hyaline Casts Urine Mucus Ur Random Creatinine 52.4 Ur Random Urea Nitrogn 255 08/17/20 08/17/20 06:37 06:37 WBC Hgb Hct Plt Count Sodium 142 Potassium 4.6 D Chloride 104 Carbon Dioxide 33 H BUN 45 H Creatinine 1.74 H D Estimat Average Glucose 111 Urine Color Urine Appearance Urine pH Ur Specific [place] Urine Protein Urine Glucose (UA) Urine Ketones Urine Blood Urine Nitrite Urine Bilirubin Urine Urobilinogen Ur Leukocyte Esterase Urine RBC Urine WBC Ur Epithelial Cells Amorphous Sediment Urine Bacteria Hyaline Casts Urine Mucus Ur Random Creatinine Ur Random Urea Nitrogn PG Care Time/CCT Total # of Minutes Spent Total Time Spent with Patient: Total time spent is greater than 50% in coordination of care (as documented) at patient's floor/unit and/or counseling patient: Coding Level of Care Code 96229 Inpt Consult Level 5 Diagnoses Acute kidney injury N17.9 Anemia D64.9 Anemia type: unspecified type CHF (congestive heart failure) I50.9 Heart failure type: unspecified Heart failure chronicity: unspecified (1) Anemia Anemia type: unspecified type Qualified Code(s): D64.9 - Anemia, unspecified (2) CHF (congestive heart failure) Heart failure type: unspecified Heart failure chronicity: unspecified Qualified Code(s): I50.9 - Heart failure, unspecified
[2020-08-17] MEDS: POTASSIUM CHLORIDE 10 MEQ TABCR PO SCH (10:29)
--- NOTE | 2020-08-17 10:40 | Gastrointestinal Consultation ---
Date of Consultation August 17, 2020 Assessment & Plan (1) Symptomatic anemia: (2) GI bleed: Possible diverticular vs hemorrhoidal bleeding vs other. Likely worsened by daily Apixiban. -Continue to monitor H/H -Transfusion per primary team with caution due to CHF -Obtain cardiac clearance -Clear liquid diet today -NPO after midnight with exception of bowel prep as ordered -Colonoscopy/EGD tomorrow Supervising Physician Co-Signing Physician Notes Agree with NAZANIN Saleh as above Abd: Soft, NT, ND, +BS Clear liquid diet, Bowel prep tonight, then NPO EGD and Colon tomorrow Continue current meds and supportive care Transfuse PRN to maintain H/H >8/24 History of Present Illness Reason for Consultation: GI bleeding, anemia Attending Physician: Avila Abraham History of Present Illness Patient is a 75 yo male with many medical comorbidities including CHF, SHIRA, CKD, chronic iron deficiency anemia, Walker's Esophagus, permanent atrial fibrillation, DJD, prostate cancer, HLD, CAD with stent placement, COPD, HTN, & lymphadenopathy. GI has been consulted for evaluation of rectal bleeding and anemia. The patient has an extensive history of rectal bleeding & anemia. He underwent an EGD, colonoscopy in 2018 for this issue. He was noted to have Walker's Esophagus as well as internal hemorrhoids & diverticulosis. He then had a Video Capsule Endoscopy that did not indicate sources of bleeding. He was hospitalized in April for rectal bleeding. At the time he felt his symptoms were hemorrhoidal and did not wish to proceed with repeat endoscopic evaluation. He is on Apixiban daily for his atrial fibrillation. He notes that 4 days ago, he developed bright red blood per rectum & increased frequency of bowel movements (up to 4 times daily). He denies diarrhea or melena. This eventually led him to feeling short of breath. He presented to the ED where his hemoglobin was found to be 6.6. He has been transfused and is currently receiving more blood this AM. H/H 7.4/24.3. No bowel movements since admission. He offers no further complaints to me at the present time. Allergies Allergy/AdvReac Type Severity Reaction Status Date / Time adhesive Allergy Mild TAPE-RASH Verified 08/16/20 13:31 oxycodone Allergy Mild RASH Verified 08/16/20 13:31 diltiazem Allergy Unknown Verified 08/16/20 13:31 Home Medications Medication Instructions Recorded Confirmed Type Calcium 600 + D(3) 1 cap PO BID 08/21/18 08/16/20 History cyanocobalamin (vitamin B-12) 1,000 mcg PO QAM 11/05/18 08/16/20 History [Vitamin B-12] albuterol sulfate 1 puff INHALATION Q6H PRN 04/12/20 08/16/20 History naproxen sodium 220 mg capsule 440 mg PO BID cap 04/21/20 08/16/20 History omeprazole 40 mg capsule,delayed 40 mg PO BID 04/21/20 08/16/20 History release triamcinolone acetonide 55 mcg 2 spray INTRANASAL DAILY 04/21/20 08/16/20 History nasal spray aerosol docusate sodium 100 mg capsule 100 mg PO BID PRN 05/18/20 08/16/20 History potassium chloride 10 mEq 10 meq PO QAM tab 05/18/20 08/16/20 History tablet,extended release apixaban 5 mg tablet 5 mg PO BID #180 tab 05/19/20 08/16/20 Rx furosemide 40 mg tablet 120 mg PO BID #540 tab 05/19/20 08/16/20 Rx atenolol 100 mg tablet 100 mg PO BID #180 tab 06/07/20 08/16/20 Rx atorvastatin 80 mg PO HS 08/16/20 08/16/20 History sazdozdiwpm-mibxazppa-lawlrrua 1 inh INHALATION QAM 08/16/20 08/16/20 History [Trelegy Ellipta] ipratropium-albuterol 3 ml INHALATION BID 08/16/20 08/16/20 History multivitamin 1 tab PO QDD 08/16/20 08/16/20 History omega 4-cdn-axi-fish oil [Fish Oil] 1 cap PO QAM 08/16/20 08/16/20 History triamcinolone acetonide [Nasacort] 1 spray INTRANASAL HS 08/16/20 08/16/20 History Patient History Medical History Acute blood loss anemia Acute exacerbation of CHF (congestive heart failure) Acute GI bleeding Acute hyperkalemia Acute hypotension Acute kidney injury XIOMY (acute kidney injury) Anemia Atrial fibrillation with slow ventricular response Walker esophagus Bilateral cellulitis of lower leg Cellulitis of right lower leg Chronic respiratory failure with hypoxia and hypercapnia Closed right hip fracture (04/05/13) Coagulopathy COPD exacerbation Difficulty swallowing Digoxin toxicity Digoxin toxicity Edema of left upper arm Gastritis, erosive Gastrointestinal hemorrhage GERD (gastroesophageal reflux disease) Hip fracture (04/03/13) History of heart artery stent x1 2008 @ [facility] by Dr. Luna History of prostate cancer Hyperlipidemia Hypertension Leg edema On anticoagulant therapy On home oxygen therapy 2-3L N/C at all times S/P right hip fracture (04/05/13) Sleep apnea CPAP with 2-3L Subepithelial gastric mass Symptomatic bradycardia Surgical History History of bilateral cataract extraction History of cardiac cath 2008 @ [facility] - HAD STENT X1 History of colonoscopy History of esophagogastroduodenoscopy (EGD) EUS 03/2019 [facility] EUS 11/21/18 Glidescope 4 with grade 1 view History of lumbar surgery hardware in place History of prostate biopsy malignant History of prostatectomy History of right shoulder replacement History of total left hip replacement History of total right hip replacement History of umbilical hernia repair Hx of nasal septoplasty Family History Uncle Prostate cancer Mother Septicemia Father COPD (chronic obstructive pulmonary disease) Pancreatic cancer Other No family history of adverse response to anesthesia Social History Smoking Status: Smoker, status unknown Tobacco Type: Cigarettes Age Started Using Tobacco: 17; Age Quit Using Tobacco: 54; packs per day: 1; Years Smoked: 37; Second Hand Exposure: No; Hx Alcohol Use: Yes Alcohol type: hard liquor Alcohol Intake Frequency Comment: 2-3 daily Hx Substance Use: No Preferred Language: Indonesian Communication Ability: Effective Visual Impairment: No Limitations Hearing Ability: Use of Hearing Aid Green Inspector Required: No Beliefs That Will Affect Care: None marital status: Current Living Situation: Spouse 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 Feels Safe at Home: Yes Safety Concerns: Feels Safe At This Time Seatbelt Use: always Sunscreen Use: No Assistive Devices: Cane, CPAP and Oxygen - Continuous Review of Systems Constitutional: + fatigue Respiratory: + dyspnea on exertion Cardiovascular: no chest pain Gastrointestinal: + change in bowel habits and + blood in stools; no abdominal pain Neurologic: no problem reported Psychiatric: no problem reported Hematologic / Lymphatic: + easy bleeding and + easy bruising; no unexplained weight loss Physical Exam Constitutional: + morbidly obese Respiratory: normal respiratory effort Cardiovascular: Rate/Rhythm: + irregularly irregular Heart Sounds: + murmur Extremities: + edema Gastrointestinal (Abdomen): Inspection/Auscultation: abdomen normal to inspection and + hypoactive bowel sounds (bowel sounds difficult to auscultate given body habitus) Percussion/Palpation: abdomen soft; abdomen nontender Musculoskeletal: Head/Neck/Chest: normocephalic Skin: + ecchymosis Psychiatric: A+Ox3, euthymic affect Results & Data ([facility]) Vital Signs (Past 12 Hours) Vital Signs Temp Pulse Pulse Resp BP BP Pulse Ox 08/17/20 10:20 92/66 L 08/17/20 10:10 36.3 C L 101 H 20 89/57 L 99 08/17/20 09:46 36.7 C 94 H 20 100/64 98 08/17/20 07:36 36.4 C L 96 H 23 126/69 99 08/17/20 07:06 80 18 99 08/17/20 04:04 36.8 C 92 H 13 130/74 98 08/16/20 23:43 98 H 08/16/20 23:27 36.9 C 81 20 112/71 95 PG Care Time/CCT Total # of Minutes Spent Total Time Spent with Patient: Total time spent is greater than 50% in coordination of care (as documented) at patient's floor/unit and/or counseling patient: Coding Level of Care Code 29754 Initial Inpt Care Lvl 3 Diagnoses Symptomatic anemia D64.9 GI bleed K92.2 GI bleed type/associated pathology: unspecified gastrointestinal hemorrhage type (1) GI bleed GI bleed type/associated pathology: unspecified gastrointestinal hemorrhage type Qualified Code(s): K92.2 - Gastrointestinal hemorrhage, unspecified
--- NOTE | 2020-08-17 10:47 | Heart Failure Consultation ---
Date of Consultation August 17, 2020 Assessment & Plan (1) Acute on chronic diastolic (congestive) heart failure: (2) Acute kidney injury: (3) Edema: (4) On home oxygen therapy: (5) Chronic kidney disease (CKD): (6) Anemia: (7) Permanent atrial fibrillation: (8) CAD (coronary artery disease): (9) COPD (chronic obstructive pulmonary disease): (10) Current use of continuous churn buttermaker anticoagulation: (11) Dependence on continuous supplemental oxygen: (12) Sleep apnea: Acute on chronic diastolic congestive heart failure: Currently Class III symptoms. He is significantly hypervolemic on his exam. He notes a decrease response to Lasix (120 mg BID) at home. Dyspnea is likely secondary to both CHF and anemia. Would recommend switching him to Bumex 2 mg IV BID with a goal loss of 1-2 L per day. Continue to closely monitor kidney function and electrolytes. Would have a low threshold to increase to 3mg or 4mg if needed. Tachycardia may be contributing factor as well, recommend optimization of rate once BP stabilizes. Low sodium diet, less than 2,000 mg daily. Strict I&Os during admission. Daily STANDING weights each morning. Anemia: As per GI and primary service. For colonoscopy/EGD in am. Atrial fibrillation. Recommend improved rate control. Plan to resume Atenolol once BP adequate. Plan for anticoagulation pending results of procedures tomorrow. Discussed the nature of heart failure and the goals of the program. Patient has been referred in the past but has been resistant to follow up. I think participation would offer significant benefits to him including decrease his risk of hospitalization. He is somewhat agreeable to this today. Will arrange for ongoing outpatient follow up at discharge. Will continue to follow during hospitalization. Disposition: Follow up with the heart failure program within 7 days of discharge. Follow up with Dr. Luna as scheduled 09/12/20. History of Present Illness Attending Physician: Avila Abraham Mr. Anderson is a 75 year old male with a history of permanent atrial fibrillation, CAD, anemia, edema, hyperlipidemia, GI bleed, CKD, chronic diastolic CHF, sleep apea- uses CPAP, and COPD requiring supplemental O2. Dr. 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 Recent cardiac studies: 1. 02/17/20 Echo: LV is hyperdynamic. EF > 70%. No RWMA. Mild LVH. His last hospitalization was 2020 for digoxin toxicity. He was last evaluated by Dr. Luna on 06/07/20. He was doing very well at that time. Patient has been referred to the heart failure program in the past but has been resistant to follow up. Patient presented to the ED yesterday with dark stool, shortness of breath, edema, and weight gain. He also noted recent rectal bleeding. He was having progressive shortness of breath that has worsened over the past 2 weeks. His lower extremity edema has increased. He has not been weighing himself at home but his last dry weight was approximately 160 lb. He's up 30-40 lb in the last 2 months. He confirms he's taking Lasix 120 mg BID without missing any doses. He notes less urine output more recently. CXR mild pulmonary edema and trace BL pleural effusions. XIOMY noted on admission with creatinine 2.17, BUN 48. ProBNP 2371. Hgb was 6.0 on admission and he received 2 units PRBCs in the ED. He was also treated with 120 mg Lasix IV. This morning he is laying in bed. He reports he is comfortable. His breathing is somewhat improved but not yet to baseline. He has not been out of bed. He slept well with his head elevated. His lower extremity edema is about the same. There is no drainage or evidence of cellulitis. He denies chest pain, worsening cough, palpitations. He is net negative -600 ml. Weight has gone from 323 lb in the ED to 312 lb this am on standing scale. He had another 120 mg of Lasix IV this am. Patient has been evaluated by palliative care in the past. POLST completed 01/2020. He was DNR/DNI at that time. Now currently listed as full code. Allergies Allergy/AdvReac Type Severity Reaction Status Date / Time adhesive Allergy Mild TAPE-RASH Verified 08/16/20 13:31 oxycodone Allergy Mild RASH Verified 08/16/20 13:31 diltiazem Allergy Unknown Verified 08/16/20 13:31 Home Medications Medication Instructions Recorded Confirmed Type Calcium 600 + D(3) 1 cap PO BID 08/21/18 08/16/20 History cyanocobalamin (vitamin B-12) 1,000 mcg PO QAM 11/05/18 08/16/20 History [Vitamin B-12] albuterol sulfate 1 puff INHALATION Q6H PRN 04/12/20 08/16/20 History naproxen sodium 220 mg capsule 440 mg PO BID cap 04/21/20 08/16/20 History omeprazole 40 mg capsule,delayed 40 mg PO BID 04/21/20 08/16/20 History release triamcinolone acetonide 55 mcg 2 spray INTRANASAL DAILY 04/21/20 08/16/20 History nasal spray aerosol docusate sodium 100 mg capsule 100 mg PO BID PRN 05/18/20 08/16/20 History potassium chloride 10 mEq 10 meq PO QAM tab 05/18/20 08/16/20 History tablet,extended release apixaban 5 mg tablet 5 mg PO BID #180 tab 05/19/20 08/16/20 Rx furosemide 40 mg tablet 120 mg PO BID #540 tab 05/19/20 08/16/20 Rx atenolol 100 mg tablet 100 mg PO BID #180 tab 06/07/20 08/16/20 Rx atorvastatin 80 mg PO HS 08/16/20 08/16/20 History szlzkpopcnp-gbkzdwdas-uefrqank 1 inh INHALATION QAM 08/16/20 08/16/20 History [Trelegy Ellipta] ipratropium-albuterol 3 ml INHALATION BID 08/16/20 08/16/20 History multivitamin 1 tab PO QDD 08/16/20 08/16/20 History omega 9-ifk-ehz-fish oil [Fish Oil] 1 cap PO QAM 08/16/20 08/16/20 History triamcinolone acetonide [Nasacort] 1 spray INTRANASAL HS 08/16/20 08/16/20 History Patient History Medical History Acute blood loss anemia Acute exacerbation of CHF (congestive heart failure) Acute GI bleeding Acute hyperkalemia Acute hypotension Acute kidney injury XIOYM (acute kidney injury) Anemia Atrial fibrillation with slow ventricular response Walker esophagus Bilateral cellulitis of lower leg Cellulitis of right lower leg Chronic respiratory failure with hypoxia and hypercapnia Closed right hip fracture (04/05/13) Coagulopathy COPD exacerbation Difficulty swallowing Digoxin toxicity Digoxin toxicity Edema of left upper arm Gastritis, erosive Gastrointestinal hemorrhage GERD (gastroesophageal reflux disease) Hip fracture (04/03/13) History of heart artery stent x1 2009 @ [facility] [address] Luna History of prostate cancer Hyperlipidemia Hypertension Leg edema On anticoagulant therapy On home oxygen therapy 2-3L N/C at all times S/P right hip fracture (04/05/13) Sleep apnea CPAP with 2-3L Subepithelial gastric mass Symptomatic bradycardia Surgical History History of bilateral cataract extraction History of cardiac cath 2008 @ [facility] - HAD STENT X1 History of colonoscopy History of esophagogastroduodenoscopy (EGD) EUS 03/2019 [facility] EUS 11/21/18 Glidescope 4 with grade 1 view History of lumbar surgery hardware in place History of prostate biopsy malignant History of prostatectomy History of right shoulder replacement History of total left hip replacement History of total right hip replacement History of umbilical hernia repair Hx of nasal septoplasty Family History Uncle Prostate cancer Mother Septicemia Father COPD (chronic obstructive pulmonary disease) Pancreatic cancer Other No family history of adverse response to anesthesia Social History Smoking Status: Smoker, status unknown Tobacco Type: Cigarettes Age Started Using Tobacco: 17; Age Quit Using Tobacco: 54; packs per day: 1; Years Smoked: 37; Second Hand Exposure: No; Hx Alcohol Use: Yes Alcohol type: hard liquor Alcohol Intake Frequency Comment: 2-3 daily Hx Substance Use: No Preferred Language: Portuguese Communication Ability: Effective Visual Impairment: No Limitations Hearing Ability: Use of Hearing Aid Adult Neurologist Required: No Beliefs That Will Affect Care: None marital status: Current Living Situation: Spouse 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 EOMs intact. Sclera anicteric. Face is symmetric. No perioral cyanosis. Mucous membranes moist. Neck: Supple, JVD difficult to determine due to body habitus Pulmonary: Normal respiratory effort, clear to auscultation bilaterally Cardiac: Irregular rate and rhythm. Normal S1 and S2, no gallops, no rubs, no murmurs Extremities: 2+ radial pulses bilaterally. 2+ posterior tibialis pulses bilaterally. 2-3+ pitting edema extending into the thighs. No cyanosis or clubbing. Abdomen: Normal bowel sounds, soft, non-tender, no abdominal mass palpated. Obese. Skin: Normal skin color, turgor, and pigmentation, no rash, no skin lesions Neurological: Patient is awake, alert, and oriented. Pleasant and cooperative. Answers questions appropriately. Speech is clear. Normal movement in all 4 extremities. Gait pattern is unremarkable. Results & Data ([facility]) Vital Signs (Past 12 Hours) Vital Signs Temp Pulse Pulse Resp BP BP Pulse Ox 08/17/20 10:25 97.5 F L 101 H 20 96/60 L 98 08/17/20 10:20 92/66 L 08/17/20 10:10 97.3 F L 101 H 20 89/57 L 99 08/17/20 09:46 98.1 F 94 H 20 100/64 98 08/17/20 07:36 97.5 F L 96 H 23 126/69 99 08/17/20 07:06 80 18 99 08/17/20 04:04 98.2 F 92 H 13 130/74 98 08/16/20 23:43 98 H 08/16/20 23:27 98.4 F 81 20 112/71 95 Heart Failure Data/Metrics Heart Failure Type: Diastolic Ejection Fraction: 70% Dry Weight (kg): 260 Weight: 312 lb Pacemaker: No Implanted Cardiac Defibrillator (ICD): No Bi-V Pacemaker: No Bi-V Defibrillator: No Evidenced Based Beta Ivon Therapy Beta Ivon Therapy: Not Indicated SILVIA/ARB/ARNI Therapy SILVIA/ARB/ARNI Therapy: Not Indicated Aldosterone Antagonist Therapy Aldosterone Antagonist Therapy: Not Indicated Coding Level of Care Code 98461 Initial Inpt Care Lvl 3 Diagnoses Acute on chronic diastolic (congestive) heart failure I50.33 Acute kidney injury N17.9 Edema R60.9 On home oxygen therapy Z99.81 Chronic kidney disease (CKD) N18.31 Chronic kidney disease stage: stage 3 (moderate) Chronic kidney disease stage 3 subtype: stage 3a (GFR 45-59) Anemia D64.9 Anemia type: unspecified type Permanent atrial fibrillation I48.2 CAD (coronary artery disease) I25.10 Associated angina: without angina Coronary Disease-Associated Artery/Lesion type: [place] artery [place] vs. transplanted heart: [place] heart COPD (chronic obstructive pulmonary disease) J44.1 COPD type: COPD with acute exacerbation Current use of continuous churn buttermaker anticoagulation Z79.01 Dependence on continuous supplemental oxygen Z99.81 Sleep apnea G47.30 Sleep apnea type: unspecified type (1) Sleep apnea Sleep apnea type: unspecified type Qualified Code(s): G47.30 - Sleep apnea, unspecified (2) CAD (coronary artery disease) Associated angina: without angina Coronary Disease-Associated Artery/Lesion type: [place] artery [place] vs. transplanted heart: [place] heart Qualified Code(s): I25.10 - Atherosclerotic heart disease of [place] coronary artery without angina pectoris (3) Anemia Anemia type: unspecified type Qualified Code(s): D64.9 - Anemia, unspecified (4) Chronic kidney disease (CKD) Chronic kidney disease stage: stage 3 (moderate) Chronic kidney disease stage 3 subtype: stage 3a (GFR 45-59) Qualified Code(s): N18.31 - Chronic kidney disease, stage 3a (5) COPD (chronic obstructive pulmonary disease) COPD type: COPD with acute exacerbation Qualified Code(s): J44.1 - Chronic obstructive pulmonary disease with (acute) exacerbation
[2020-08-17] MEDS ORDERED: ATENOLOL 50 MG TABLET PO ONE ×2 (12:46→20:12)
--- NOTE | 2020-08-17 14:56 | Cardiology Consultation ---
Date of Consultation August 17, 2020 Assessment & Plan (1) Acute on chronic diastolic (congestive) heart failure: Echocardiogram performed approximately 6 months ago revealed preserved LV systolic function. He has mild LVH. He is clearly volume overloaded. He is very edematous and has gained a significant amount of weight. He follows a high sodium diet by admission. He appears to be compliant with his diuretics, but has notice reduced urination recently. He did receive an intravenous dose of Bumex this morning appears to be affecting a good diuresis. While he does have significant dyspnea, this was likely related both to his anemia and only mild pulmonary vascular congestion. He will likely need to have a significant diuresis prior to discharge. We will continue his Bumex, monitor his outputs and electrolytes closely. With AV has significant diuresis over the course of today and this evening he would be safe for his colonoscopy tomorrow. (2) Symptomatic anemia: Most likely related to gastrointestinal hemorrhage. Receiving blood transfusion. (3) Permanent atrial fibrillation: He is not symptomatic from the arrhythmia itself. He seems to have adequate rate control. One question would be a need for continued anticoagulation. Clearly he has an elevated risk of stroke given his comorbidities. However, he now has significant gastrointestinal bleeding requiring transfusion. We can wait to see the results of the colonoscopy tomorrow, but I think he would benefit from an evaluation for left atrial appendage occlusion device. I will continue him on beta-blockade. His blood pressure is somewhat low currently, but when he is normotensive I would administer his usual atenolol dose. (4) CAD (coronary artery disease): He has remote history of PCI to the RCA. No current symptoms suggestive of coronary insufficiency or angina. He should be continued high-dose atorvastatin. History of Present Illness Reason for Consultation: Preop evaluation Requesting Physician: Liliane Attending Physician: Avila Abraham History of Present Illness The patient is a 75-year-old gentleman with a remote history of coronary disease having previously undergone percutaneous intervention in 2008. He is known to have permanent atrial fibrillation and diastolic heart failure. Patient states that he was at his baseline until approximately 1 and half weeks ago. This time frame he developed progressively worsening dyspnea. He has some dyspnea at baseline uses supplemental oxygen at all times. However, even doing minor acti vities over the past week caused him significant shortness of breath. Around this time he also noticed the development of some blood in his stools as well as dark stools. He was having frequent bowel movements. He also noted the development of progressively worsening edema. This is most notable in his lower extremities but also increasing abdominal girth. He denied other symptoms such as dizziness or lightheadedness. He has not been aware of any palpitations. He denies any symptoms of chest pain either at rest or with activity. The patient was referred to the emergency room for evaluation. He was discovered to have significant anemia. He is also noted to be very edematous. He was admitted for evaluation of a suspected gastrointestinal hemorrhage as well as diuresis. Allergies Allergy/AdvReac Type Severity Reaction Status Date / Time adhesive Allergy Mild TAPE-RASH Verified 08/16/20 13:31 oxycodone Allergy Mild RASH Verified 08/16/20 13:31 diltiazem Allergy Unknown Verified 08/16/20 13:31 Home Medications Medication Instructions Recorded Confirmed Type Calcium 600 + D(3) 1 cap PO BID 08/21/18 08/16/20 History cyanocobalamin (vitamin B-12) 1,000 mcg PO QAM 11/05/18 08/16/20 History [Vitamin B-12] albuterol sulfate 1 puff INHALATION Q6H PRN 04/12/20 08/16/20 History naproxen sodium 220 mg capsule 440 mg PO BID cap 04/21/20 08/16/20 History omeprazole 40 mg capsule,delayed 40 mg PO BID 04/21/20 08/16/20 History release triamcinolone acetonide 55 mcg 2 spray INTRANASAL DAILY 04/21/20 08/16/20 History nasal spray aerosol docusate sodium 100 mg capsule 100 mg PO BID PRN 05/18/20 08/16/20 History potassium chloride 10 mEq 10 meq PO QAM tab 05/18/20 08/16/20 History tablet,extended release apixaban 5 mg tablet 5 mg PO BID #180 tab 05/19/20 08/16/20 Rx furosemide 40 mg tablet 120 mg PO BID #540 tab 05/19/20 08/16/20 Rx atenolol 100 mg tablet 100 mg PO BID #180 tab 06/07/20 08/16/20 Rx atorvastatin 80 mg PO HS 08/16/20 08/16/20 History eizkekgvzlv-aentovdxl-fxrsmaif 1 inh INHALATION QAM 08/16/20 08/16/20 History [Trelegy Ellipta] ipratropium-albuterol 3 ml INHALATION BID 08/16/20 08/16/20 History multivitamin 1 tab PO QDD 08/16/20 08/16/20 History omega 1-ybr-iim-fish oil [Fish Oil] 1 cap PO QAM 08/16/20 08/16/20 History triamcinolone acetonide [Nasacort] 1 spray INTRANASAL HS 08/16/20 08/16/20 History Patient History Medical History Acute blood loss anemia Acute exacerbation of CHF (congestive heart failure) Acute GI bleeding Acute hyperkalemia Acute hypotension Acute kidney injury XIOMY (acute kidney injury) Anemia Atrial fibrillation with slow ventricular response Walker esophagus Bilateral cellulitis of lower leg Cellulitis of right lower leg Chronic respiratory failure with hypoxia and hypercapnia Closed right hip fracture (04/05/13) Coagulopathy COPD exacerbation Difficulty swallowing Digoxin toxicity Digoxin toxicity Edema of left upper arm Gastritis, erosive Gastrointestinal hemorrhage GERD (gastroesophageal reflux disease) Hip fracture (04/03/13) History of heart artery stent x1 2009 @ [facility] by Dr. Luna History of prostate cancer Hyperlipidemia Hypertension Leg edema On anticoagulant therapy On home oxygen therapy 2-3L N/C at all times S/P right hip fracture (04/05/13) Sleep apnea CPAP with 2-3L Subepithelial gastric mass Symptomatic bradycardia Surgical History History of bilateral cataract extraction History of cardiac cath 2008 @ [facility] - HAD STENT X1 History of colonoscopy History of esophagogastroduodenoscopy (EGD) EUS 03/2019 [facility] EUS 11/21/18 Glidescope 4 with grade 1 view History of lumbar surgery hardware in place History of prostate biopsy malignant History of prostatectomy History of right shoulder replacement History of total left hip replacement History of total right hip replacement History of umbilical hernia repair Hx of nasal septoplasty Family History Uncle Prostate cancer Mother Septicemia Father COPD (chronic obstructive pulmonary disease) Pancreatic cancer Other No family history of adverse response to anesthesia Social History Smoking Status: Smoker, status unknown Tobacco Type: Cigarettes Age Started Using Tobacco: 17; Age Quit Using Tobacco: 54; packs per day: 1; Years Smoked: 37; Second Hand Exposure: No; Hx Alcohol Use: Yes Alcohol type: hard liquor Alcohol Intake Frequency Comment: 2-3 daily Hx Substance Use: No Preferred Language: Urdu Communication Ability: Effective Visual Impairment: No Limitations Hearing Ability: Use of Hearing Aid Director Of Customer Service Required: No Beliefs That Will Affect Care: None marital status: Current Living Situation: Spouse 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 No recent fevers or chills. He does admit to a high sodium diet. He has notice reduced urination with use of his usual diuretic regimen. Easy bruisability on Eliquis Physical Exam Physical Exam: The patient is alert and oriented. Mood and affect appeared normal. He answered all questions appropriately. HEENT: Pupils are equal and reactive to light and accommodation. Extraocular movements are intact. The sclerae are anicteric. Neuro: Cranial nerves intact Neck: Patient's neck is supple. He has palpable carotid pulses bilaterally without bruits on auscultation. . The thyroid is not enlarged. Lungs: Some expiratory wheezing. Normal respiratory effort. Reduced breath sounds diffusely. Cardiac: Heart demonstrates an irregular rhythm but normal rate. Normal S1 and S2. No murmurs on examination. Pulses: The patient has palpable radial pulses bilaterally that are equal in intensity Abdomen: Distended Extremities: There was no evidence of hypoperfusion. There is no cyanosis or clubbing. Severe lower extremity edema. Skin: I did not appreciate any rashes on examination today. Results & Data ([facility]) Vital Signs (Past 12 Hours) Vital Signs Temp Pulse Pulse Resp BP BP Pulse Ox 08/17/20 14:38 88 20 96/63 L 98 08/17/20 14:16 36.8 C 87 20 97/57 L 98 08/17/20 14:01 36.8 C 101 H 22 103/66 98 08/17/20 13:40 36.7 C 93 H 22 99/64 L 98 08/17/20 13:25 36.8 C 97 H 20 89/60 L 100 08/17/20 12:55 36.8 C 95 H 20 98/63 L 100 08/17/20 11:55 36.8 C 92 H 20 98/66 L 97 08/17/20 10:55 36.7 C 96 H 20 106/70 08/17/20 10:25 36.4 C L 101 H 20 96/60 L 98 08/17/20 10:20 92/66 L 08/17/20 10:10 36.3 C L 101 H 20 89/57 L 99 08/17/20 09:46 36.7 C 94 H 20 100/64 98 08/17/20 08:20 100 H 08/17/20 07:36 36.4 C L 96 H 23 126/69 99 08/17/20 07:06 80 18 99 08/17/20 04:04 36.8 C 92 H 13 130/74 98 Laboratory Results Abnormal Lab Results 08/16/20 08/16/20 08/16/20 13:59 14:32 14:32 WBC RBC Hgb Hct MCV MCH MCHC RDW Std Deviation RDW Coeff of Ezekiel Plt Count MPV Immature Gran % (Auto) Neut % (Auto) Lymph % (Auto) Jennings % (Auto) Eos % (Auto) Baso % (Auto) Neut # (Auto) Lymph # (Auto) Jennings # (Auto) Eos # (Auto) Baso # (Auto) Immature Gran # (Auto) Absolute Nucleated RBC Nucleated RBC % (auto) Polychromasia Hypochromasia Ovalocytes Sodium Potassium Chloride Carbon Dioxide Anion Gap BUN Creatinine Est Cr Clr Drug Dosing Est GFR ( Amer) Est GFR (Non-Af Amer) BUN/Creatinine Ratio Glucose Estimat Average Glucose Hemoglobin A1c Calcium Magnesium Iron Transferrin Transferrin % Sat Ferritin Vitamin B12 Folate Ur Random Creatinine Ur Random Urea Nitrogn COVID-19 Eval Order Covid19 at [facility] SARS-CoV-2 (PCR) NEGATIVE Blood Type A Positive Antibody Screen NEGATIVE Crossmatch See Detail 08/16/20 08/17/20 08/17/20 Unknown 00:56 06:37 WBC 8.57 8.40 RBC 2.50 L 2.67 L Hgb 7.0 L 7.4 L Hct 22.6 L 24.3 L MCV 90.4 91.0 MCH 28.0 27.7 MCHC 31.0 L 30.5 L RDW Std Deviation 54.6 H 55.1 H RDW Coeff of Ezekiel 16.5 H 16.7 H Plt Count 252 256 MPV 10.2 10.1 Immature Gran % (Auto) 0.2 0.2 Neut % (Auto) 72.1 75.7 Lymph % (Auto) 13.4 11.8 Jennings % (Auto) 11.4 9.5 Eos % (Auto) 2.7 2.6 Baso % (Auto) 0.2 0.2 Neut # (Auto) 6.17 6.35 Lymph # (Auto) 1.15 L 0.99 L Jennings # (Auto) 0.98 H 0.80 H Eos # (Auto) 0.23 0.22 Baso # (Auto) 0.02 0.02 Immature Gran # (Auto) 0.02 0.02 Absolute Nucleated RBC 0.03 H 0.02 H Nucleated RBC % (auto) 0.3 0.3 Polychromasia 1+ 1+ Hypochromasia Present Ovalocytes 1+ Sodium Potassium Chloride Carbon Dioxide Anion Gap BUN Creatinine Est Cr Clr Drug Dosing Est GFR ( Amer) Est GFR (Non-Af Amer) BUN/Creatinine Ratio Glucose Estimat Average Glucose Hemoglobin A1c Calcium Magnesium Iron Transferrin Transferrin % Sat Ferritin Vitamin B12 Folate Ur Random Creatinine 52.4 Ur Random Urea Nitrogn 255 COVID-19 Eval Order SARS-CoV-2 (PCR) Blood Type Antibody Screen Crossmatch 08/17/20 08/17/20 08/17/20 06:37 06:37 08:17 WBC RBC Hgb Hct MCV MCH MCHC RDW Std Deviation RDW Coeff of Ezekiel Plt Count MPV Immature Gran % (Auto) Neut % (Auto) Lymph % (Auto) Jennings % (Auto) Eos % (Auto) Baso % (Auto) Neut # (Auto) Lymph # (Auto) Jennings # (Auto) Eos # (Auto) Baso # (Auto) Immature Gran # (Auto) Absolute Nucleated RBC Nucleated RBC % (auto) Polychromasia Hypochromasia Ovalocytes Sodium 142 Potassium 4.6 D Chloride 104 Carbon Dioxide 33 H Anion Gap 5.0 BUN 45 H Creatinine 1.74 H D Est Cr Clr Drug Dosing 51.8 Est GFR ( Amer) 44.1 Est GFR (Non-Af Amer) 38.1 BUN/Creatinine Ratio 26.0 H Glucose 92 Estimat Average Glucose 111 Hemoglobin A1c 5.5 Calcium 8.8 Magnesium 2.9 H Iron 30 L Transferrin 283 Transferrin % Sat 7 L Ferritin 10.8 Vitamin B12 513 Folate > 20.00 Ur Random Creatinine Ur Random Urea Nitrogn COVID-19 Eval Order SARS-CoV-2 (PCR) Blood Type Antibody Screen Crossmatch Diagnostic Findings Mild pulmonary edema and trace bilateral pleural effusions. ECG Additional Comments: EKG demonstrated atrial fibrillation rapid ventricular response. Somewhat low voltage with poor R-wave progression of precordial leads PG Care Time/CCT Total # of Minutes Spent Total Time Spent with Patient: Total time spent is greater than 50% in coordination of care (as documented) at patient's floor/unit and/or counseling patient: Coding Level of Care Code 48993 Initial Inpt Care Lvl 3 Diagnoses Acute on chronic diastolic (congestive) heart failure I50.33 Symptomatic anemia D64.9 Permanent atrial fibrillation I48.2 CAD (coronary artery disease) I25.10 Coronary Disease-Associated Artery/Lesion type: [place] artery [place] vs. transplanted heart: [place] heart Associated angina: without angina (1) CAD (coronary artery disease) Coronary Disease-Associated Artery/Lesion type: [place] artery [place] vs. transplanted heart: [place] heart Associated angina: without angina Qualified Code(s): I25.10 - Atherosclerotic heart disease of [place] coronary artery without angina pectoris
[2020-08-17] MEDS ORDERED: BUMETANIDE 2 MG in SYRINGE 0 ML IV ONE (16:00)
[2020-08-17] MEDS: LAVAGE SOLUTION 4000ML PO SCH (18:09)
[2020-08-17 19:42] LABS: Hematocrit (blood only) 29.4 % (42-52); Mean Corpuscular Hemoglobin 27.3 pg (25-34); Mean Corpuscular Hgb Conc 30.6 g/dL (32-36); Mean Corpuscular Volume 89.1 fL (80-100); Mean Platelet Volume 10.3 fL (7.4-10.4); Nucleated RBC # (auto) 0.03 K/uL (0-0); Nucleated RBC % (auto) 0.3 %; Platelet Count 236 K/uL (130-400); RDW Coefficient of Variation 16.8 % (11.5-14.5); RDW Standard Deviation 54.5 fL (36.4-46.3); White Blood Count 9.18 K/uL (4.8-10.8)
[2020-08-17 20:07] LABS: BUN Creatinine Ratio 25.1 (10-20); Calcium 8.4 mg/dl (8.5-10.1); Creatinine Clr Calc Pharmacy 58.1 ml/min; Est GFR (African American) 51.9 ml/min; Est GFR (Non-African American) 44.8 ml/min
[2020-08-17] MEDS: ATORVASTATIN 40 MG TAB PO SCH (20:40)
[2020-08-17] MEDS: TRIAMCINOLONE ACET NASAL SPRAY 10.8ML BTL SCH (20:41)
[2020-08-18] MEDS: LAVAGE SOLUTION 4000ML PO SCH (03:01)
[2020-08-18] MEDS ORDERED: SOD PHOSPHATE/SOD BIPHOSPHATE ENEMA 132 ML BTL PR STA (06:05)
[2020-08-18 06:10] LABS: Basophils # (auto) 0.02 K/uL (0-0.2); Basophils % (auto) 0.2 %; Eosinophils % (auto) 2.3 %; Hematocrit (blood only) 30.4 % (42-52); Hemoglobin 9.3 g/dL (14.0-18.0); Immature Granulocytes # (auto) 0.02 K/uL (0.00-0.02); Immature Granulocytes % (auto) 0.2 %; Lymphocytes # (auto) 0.97 K/uL (1.2-3.4); Mean Corpuscular Hemoglobin 27.5 pg (25-34); Mean Corpuscular Hgb Conc 30.6 g/dL (32-36); Mean Corpuscular Volume 89.9 fL (80-100); Mean Platelet Volume 10.3 fL (7.4-10.4); Monocytes # (auto) 0.87 K/uL (0.11-0.59); Monocytes % (auto) 9.8 %; Neutrophils # (auto) 6.76 K/uL (1.4-6.5); Neutrophils % (auto) 76.5 %; Nucleated RBC # (auto) 0.02 K/uL (0-0); Nucleated RBC % (auto) 0.3 %; Platelet Count 236 K/uL (130-400); RDW Coefficient of Variation 17.3 % (11.5-14.5); Red Blood Count 3.38 M/uL (4.7-6.1); White Blood Count 8.84 K/uL (4.8-10.8)
[2020-08-18] MEDS ORDERED: BUMETANIDE 2 MG in SYRINGE 0 ML IV ONE (06:30)
[2020-08-18 06:48] LABS: BUN Creatinine Ratio 25.1 (10-20); Calcium 8.1 mg/dl (8.5-10.1); Est GFR (African American) 61.6 ml/min; Est GFR (Non-African American) 53.1 ml/min; Magnesium 2.7 mg/dl (1.8-2.4)
[2020-08-18] MEDS: ALBUT/IPRATROP 3MG/0.5MG NEB 3 ML VIAL INH SCH ×2 (07:12→20:01)
[2020-08-18] MEDS: OMEGA-3 (PURIFIED FISH OIL) 1 GM CAP PO SCH (09:07)
[2020-08-18] MEDS: POTASSIUM CHLORIDE 10 MEQ TABCR PO SCH (09:08)
[2020-08-18] MEDS: PANTOprazole 40 MG in SYRINGE 0 ML IV SCH (09:08)
[2020-08-18] MEDS: FLUTICASONE FUROATE 100MCG 14 PUFFS/INHALER INH SCH (09:08)
[2020-08-18] MEDS: UMECLIDINIUM/VILANTEROL 62.5/25MCG 7 PUFFS/INHALER INH SCH (09:09)
--- NOTE | 2020-08-18 09:10 | Hospitalist Progress Note ---
Date of Service August 18, 2020 Assessment & Plan (1) GI bleed: Unspecified source, presumed lower but did have melena noted as well. Along with acute on chronic CHF exacerbation. (Weight 146.6kg on admission from 120s more dry weight, currently 141.5kg this AM) * On Eliquis and had been using Naproxen as he had not been told to avoid per his account (holding currently) * Transfused 2u PRBC on admission with 120mg IV lasix. * Additional 2u PRBC today for hgb 7.4 to get >8. Additional 120mg IV lasix provided. * Discussed with GI -- will need cardiac clearance. Clear liquid diet with bowel prep today with plans for scope in AM. NPO after midnight * Iron studies with low iron -- will avoid IV iron supplementation at the moment given hx transfusions requiring dialysis last year. * Will start daily supplementation once taking PO and continue at d/c * Cardiology consulted. Trop negative on admission. No CP reported. Telemetry to afib 90-100s. 08/18 * -- Given dose of Bumex 2mg IV last evening and additional 3L output. Weight stable and will continue diuresis with 2mg IV BID with hopes of increasing to 3mg BID at discharge * --Given dose of PO atenolol 100mg last evening after bumex with HR in 110s as BP improved to 130s/72 in evening * --Additional 2mg Bumex this AM * --H/h stable and improved to 9.3 on am labs. Total 4u PRBC * --NO MORE ALEVE -- HAS BEEN TAKING 2X/DAILY FOR ONE YEAR AT LEAST FOR SHOULDER PAIN * Currently NPO for EGD/C-scope by Dr. Sandhu. * Cardiology on board -- ok for scope if good diuresis. HD stable (2) Permanent atrial fibrillation: * As above, - Metoprolol- 5 mg IV q4 hr PRN for HR >110, can adjust or schedule if needed * Atenolol 100mg last evening * NPO after midnight for GI eval -- would resume atenolol this evening if BP tolerates/elevated HR given afib (3) Anemia: * As above * iron studies as above --> low. Rec PO supplementation when able. Avoid IV venofer at this time (4) Chronic kidney disease (CKD): * CKD III with XIOMY - OB GYN doubled from outpatient * Cr improving with diuresis -- currently 1.32 from 2.17 on admission * Switching to bumex as above * AVOID NSAIDs * UA with evidence of ATN. Nephrology following. * BMP in AM (5) COPD (chronic obstructive pulmonary disease): * No acute needs, continue home inhalers * chronic oxygen therapy- continue 4l NC -- currently 94% on 4L NC * CPAP at night (6) Hyperlipidemia: * Continue Atorvastatin when on PO (7) Hypertension: * As above- offload volume * BP low but asymptomatic * Continue diuresis as above * Atenolol as above (8) On home oxygen therapy: * As above, chronic. Titrate to keep SP02> 88-92% * On 4L chronically GERD/Barretts * On omeprazole 40mg PO BID * Put on protonix and changed to IVP BID currently and will continue overnight as NPO DVT Prophylaxis * Holding Eliquis for bleeding * SCDs Dispo: NPO for EGD/c-scope (9) Morbid obesity with BMI of 50.0-59.9, adult: (10) Acute blood loss anemia: (11) Chronic respiratory failure with hypoxia and hypercapnia: Admission and Anticipated Discharge Date Admission Date: August 16, 2020 Supervising Physician Co-Signing Physician Notes Attending Attestation - Chart reviewed in detail, care plan d/w ALEXANDRA Momin. I agree w/ the blancas components of her documentation. s/p EGD / colonoscopy today. source of GI bleeding found - multiple AVMs, s/p argon plasma by Dr Sandhu. colonoscopy wnl. H/H remain acceptable. Doing well with diuresis for decompensated CHF. Vitals remain stable. Labs in am. Avila Abraham MD Subjective Patient evaluated this morning. Breathing better less wheezing. No CP. On his usual 4L NC. Output over 3L overnight. 2L yesterday during the day. He is slightly irritated about having scope this afternoon and not being able to have any water. He states per Dr. Aguilar for his left shoulder pain that eventually needs repair, was recommended to take Aleve and ok'd to take twice daily. Mr Anderson states he has been taking 2 Aleve twice daily for at least the past year. He now understands that this medication should not be taken, especially with his eliquis. No fever, chills, chest pain, palpitations, nausea, vomiting or other issues at this time. Review of Systems Review of Systems: All systems reviewed & are unremarkable except as noted in HPI & below Physical Exam Physical Exam: PHYSICAL EXAM: General: awake, alert, no apparent distress, well nourished, well developed. morbidly obese. sitting up in bed watching TV Head: Normocephalic, atraumatic ENT: PERRL, EOMI, no pharyngeal exudate, mucous membranes moist Neuro: AAO x 3, irritable about not getting water. speech clear and appropriate, strength intact bilaterally 5/5, sensation intact and equal all extremities and dermatomes, no pronator drift Chest: equal rise and fall of the chest, no accessory muscle use, no heaves or thrills, diminished BS in bases. End expiratory wheezing posterior martínez. No crackles/rhonchi. 94% on chronic 4L NC Cardiac: irregularrly irregular 94bpm, cap refil <3 seconds. 2-3+ pitting edema bilaterally up to thighs. NVI. pulses palpable. multiple excoriations to b/l LE noted GI: NABS x 4 quadrants, soft, nontender to palpation, no rebound, guarding or tenderness : Menendez with yellow urine draining, 700cc in bag currently Extremities: chronic venous insufficiency to bilateral lower extremities, mild erythema, calfs nontender to palpation Psych: Normal mood and affect Skin: no rash or erythema Results & Data Results & Data ([facility]) Vital Signs (Past 12 Hours) Vital Signs Temp Pulse Pulse Resp BP Pulse Ox 08/18/20 07:30 36.4 C L 105 H 22 104/80 94 08/18/20 07:14 104 H 18 96 08/18/20 02:56 36.8 C 101 H 20 104/63 97 08/17/20 23:27 36.6 C 102 H 20 132/71 97 08/17/20 22:20 103 H Laboratory Results 08/18/20 08/18/20 08/17/20 Range/Units 05:31 05:31 20:39 WBC 8.84 (4.8-10.8) K/uL RBC 3.38 L (4.7-6.1) M/uL Hgb 9.3 L (14.0-18.0) g/dL Hct 30.4 L (42-52) % MCV 89.9 (80-100) fL MCH 27.5 (25-34) pg MCHC 30.6 L (32-36) g/dL RDW Std Deviation 56.0 H (36.4-46.3) fL RDW Coeff of Ezekiel 17.3 H (11.5-14.5) % Plt Count 236 (130-400) K/uL MPV 10.3 (7.4-10.4) fL Immature Gran % (Auto) 0.2 % Neut % (Auto) 76.5 % Lymph % (Auto) 11.0 % Kittson % (Auto) 9.8 % Eos % (Auto) 2.3 % Baso % (Auto) 0.2 % Neut # (Auto) 6.76 H (1.4-6.5) K/uL Lymph # (Auto) 0.97 L (1.2-3.4) K/uL Kittson # (Auto) 0.87 H (0.11-0.59) K/uL Eos # (Auto) 0.20 (0-0.5) K/uL Baso # (Auto) 0.02 (0-0.2) K/uL Immature Gran # (Auto) 0.02 (0.00-0.02) K/uL Absolute Nucleated RBC 0.02 H (0-0) K/uL Nucleated RBC % (auto) 0.3 % Sodium 142 (136-145) mmol/L Potassium 4.0 4.1 (3.5-5.1) mmol/L Chloride 105 (98-107) mmol/L Carbon Dioxide 34 H (21-32) mmol/L Anion Gap 3.0 (3-11) BUN 33 H (7-18) mg/dl Creatinine 1.32 (0.6-1.4) mg/dl Est Cr Clr Drug Dosing 68.0 ml/min Est GFR ( Amer) 61.6 ml/min Est GFR (Non-Af Amer) 53.1 ml/min BUN/Creatinine Ratio 25.1 H (10-20) Glucose 99 (70-99) mg/dl Calcium 8.1 L (8.5-10.1) mg/dl Magnesium 2.7 H (1.8-2.4) mg/dl Vitamin B12 (193-986) pg/ml Folate (>5.38) ng/ml Blood Type Antibody Screen Crossmatch 08/17/20 08/17/20 08/17/20 Range/Units 19:15 19:15 08:17 WBC 9.18 (4.8-10.8) K/uL RBC 3.30 L (4.7-6.1) M/uL Hgb 9.0 L (14.0-18.0) g/dL Hct 29.4 L (42-52) % MCV 89.1 (80-100) fL MCH 27.3 (25-34) pg MCHC 30.6 L (32-36) g/dL RDW Std Deviation 54.5 H (36.4-46.3) fL RDW Coeff of Ezekiel 16.8 H (11.5-14.5) % Plt Count 236 (130-400) K/uL MPV 10.3 (7.4-10.4) fL Immature Gran % (Auto) % Neut % (Auto) % Lymph % (Auto) % Kittson % (Auto) % Eos % (Auto) % Baso % (Auto) % Neut # (Auto) (1.4-6.5) K/uL Lymph # (Auto) (1.2-3.4) K/uL Kittson # (Auto) (0.11-0.59) K/uL Eos # (Auto) (0-0.5) K/uL Baso # (Auto) (0-0.2) K/uL Immature Gran # (Auto) (0.00-0.02) K/uL Absolute Nucleated RBC 0.03 H (0-0) K/uL Nucleated RBC % (auto) 0.3 % Sodium 143 (136-145) mmol/L Potassium (3.5-5.1) mmol/L Chloride 105 (98-107) mmol/L Carbon Dioxide 35 H (21-32) mmol/L Anion Gap 3.0 (3-11) BUN 38 H (7-18) mg/dl Creatinine 1.52 H (0.6-1.4) mg/dl Est Cr Clr Drug Dosing 58.1 ml/min Est GFR ( Amer) 51.9 ml/min Est GFR (Non-Af Amer) 44.8 ml/min BUN/Creatinine Ratio 25.1 H (10-20) Glucose 97 (70-99) mg/dl Calcium 8.4 L (8.5-10.1) mg/dl Magnesium (1.8-2.4) mg/dl Vitamin B12 513 (193-986) pg/ml Folate > 20.00 (>5.38) ng/ml Blood Type Antibody Screen Crossmatch 08/16/20 Range/Units 13:59 WBC (4.8-10.8) K/uL RBC (4.7-6.1) M/uL Hgb (14.0-18.0) g/dL Hct (42-52) % MCV (80-100) fL MCH (25-34) pg MCHC (32-36) g/dL RDW Std Deviation (36.4-46.3) fL RDW Coeff of Ezekiel (11.5-14.5) % Plt Count (130-400) K/uL MPV (7.4-10.4) fL Immature Gran % (Auto) % Neut % (Auto) % Lymph % (Auto) % Kittson % (Auto) % Eos % (Auto) % Baso % (Auto) % Neut # (Auto) (1.4-6.5) K/uL Lymph # (Auto) (1.2-3.4) K/uL Kittson # (Auto) (0.11-0.59) K/uL Eos # (Auto) (0-0.5) K/uL Baso # (Auto) (0-0.2) K/uL Immature Gran # (Auto) (0.00-0.02) K/uL Absolute Nucleated RBC (0-0) K/uL Nucleated RBC % (auto) % Sodium (136-145) mmol/L Potassium (3.5-5.1) mmol/L Chloride (98-107) mmol/L Carbon Dioxide (21-32) mmol/L Anion Gap (3-11) BUN (7-18) mg/dl Creatinine (0.6-1.4) mg/dl Est Cr Clr Drug Dosing ml/min Est GFR ( Amer) ml/min Est GFR (Non-Af Amer) ml/min BUN/Creatinine Ratio (10-20) Glucose (70-99) mg/dl Calcium (8.5-10.1) mg/dl Magnesium (1.8-2.4) mg/dl Vitamin B12 (193-986) pg/ml Folate (>5.38) ng/ml Blood Type A Positive Antibody Screen NEGATIVE Crossmatch See Detail PG Care Time/CCT Total # of Minutes Spent Total Time Spent with Patient: Total time spent is greater than 50% in coordination of care (as documented) at patient's floor/unit and/or counseling patient: Coding Level of Care Code 28803 Subseq Hosp Care Lvl 3 Diagnoses GI bleed K92.2 GI bleed type/associated pathology: unspecified gastrointestinal hemorrhage type Permanent atrial fibrillation I48.2 Anemia D64.9 Anemia type: unspecified type Chronic kidney disease (CKD) N18.31 Chronic kidney disease stage: stage 3 (moderate) Chronic kidney disease stage 3 subtype: stage 3a (GFR 45-59) COPD (chronic obstructive pulmonary disease) J44.1 COPD type: COPD with acute exacerbation Hyperlipidemia E78.5 Hyperlipidemia type: unspecified Hypertension I10 Hypertension type: essential hypertension On home oxygen therapy Z99.81 Morbid obesity with BMI of 50.0-59.9, adult E66.01; Z68.43 Acute blood loss anemia D62 Chronic respiratory failure with hypoxia and hypercapnia J96.11; J96.12 (1) GI bleed GI bleed type/associated pathology: unspecified gastrointestinal hemorrhage type Qualified Code(s): K92.2 - Gastrointestinal hemorrhage, unspecified (2) Anemia Anemia type: unspecified type Qualified Code(s): D64.9 - Anemia, unspecified (3) Hyperlipidemia Hyperlipidemia type: unspecified Qualified Code(s): E78.5 - Hyperlipidemia, unspecified (4) Chronic kidney disease (CKD) Chronic kidney disease stage: stage 3 (moderate) Chronic kidney disease stage 3 subtype: stage 3a (GFR 45-59) Qualified Code(s): N18.31 - Chronic kidney disease, stage 3a (5) COPD (chronic obstructive pulmonary disease) COPD type: COPD with acute exacerbation Qualified Code(s): J44.1 - Chronic obstructive pulmonary disease with (acute) exacerbation (6) Hypertension Hypertension type: essential hypertension Qualified Code(s): I10 - Essential (primary) hypertension
--- NOTE | 2020-08-18 09:25 | Nephrology Progress Note ---
Date of Service August 18, 2020 Assessment & Plan (1) Acute kidney injury: * XIOMY due to renal hypoperfusion from profound anemia in the setting of NSAID therapy * Continue to hold Alleve * Apixaban as per Cardiology * Kidney function has returned to baseline, urine sediment is negative for casts, patient remains nonoliguric, electrolyte balance is acceptable. No further Nephrology evaluation indicated at this time. Will sign off. Please call if further assistance is needed (2) Anemia: * Agree w/ blood transfusion to maintain Hgb > 8 * Cardiology to assess risks/benefits to predatory animal exterminator anticoagulation * Marleni is scheduled for endoscopy today (3) CHF (congestive heart failure): * Follows closely w/ Cardiology. Previously CHF was compensated * Diuretics as per Cardiology. Outpatient Furosemide dose was 120 mg po BID Admission and Anticipated Discharge Date Admission Date: August 16, 2020 Subjective Mr. Anderson was seen and examined in his hospital room this morning. He has a Menendez catheter in place but notes brisk UO and reports that peripheral edema is mildly improved. Mr. Anderson denies melena or hematochezia over night. He is awaiting endoscopy later this morning. Review of Systems Constitutional: + weakness; no fever Eyes: no problem reported Ear, Nose, Mouth, Throat: no problem reported Respiratory: + dyspnea Cardiovascular: + edema; no chest pain and no palpitations Gastrointestinal: no abdominal pain, no nausea, no blood in stools and no melena Musculoskeletal: no back pain Neurologic: no falls, no dizziness and no confusion Physical Exam Constitutional: + obese; not in distress Eyes: PERRL, conjunctivae normal, anicteric sclerae ENMT: external ear and nose normal, oropharynx normal Neck: trachea midline, no thyromegaly Respiratory: normal respiratory effort, lungs clear to auscultation Cardiovascular: Rate/Rhythm: + irregularly irregular Extremities: + edema (2+ pretibial pitting edema) Gastrointestinal (Abdomen): normal bowel sounds, soft, nontender, no hepatosplenomegaly Musculoskeletal: Extremities: no cyanosis Skin: no rashes, warm and dry Neurologic: awake; not confused Results & Data ([facility]) Vital Signs (Past 12 Hours) Vital Signs Temp Pulse Pulse Resp BP Pulse Ox 08/18/20 07:30 36.4 C L 105 H 22 104/80 94 08/18/20 07:14 104 H 18 96 08/18/20 02:56 36.8 C 101 H 20 104/63 97 08/17/20 23:27 36.6 C 102 H 20 132/71 97 08/17/20 22:20 103 H Laboratory Tests 08/18/20 08/18/20 05:31 05:31 WBC 8.84 Hgb 9.3 L Hct 30.4 L Plt Count 236 Sodium 142 Potassium 4.0 Chloride 105 Carbon Dioxide 34 H BUN 33 H Creatinine 1.32 Glucose 99 PG Care Time/CCT Total # of Minutes Spent Total Time Spent with Patient: Total time spent is greater than 50% in coordination of care (as documented) at patient's floor/unit and/or counseling patient: Coding Level of Care Code 84951 Subseq Hosp Care Lvl 3 Diagnoses Acute kidney injury N17.9 Anemia D64.9 Anemia type: unspecified type CHF (congestive heart failure) I50.9 Heart failure type: unspecified Heart failure chronicity: unspecified (1) Anemia Anemia type: unspecified type Qualified Code(s): D64.9 - Anemia, unspecified (2) CHF (congestive heart failure) Heart failure type: unspecified Heart failure chronicity: unspecified Qualified Code(s): I50.9 - Heart failure, unspecified
--- NOTE | 2020-08-18 09:36 | History & Physical Bridge Note ---
Date of Service August 18, 2020 History & Physical Bridge Note I have examined the patient, reviewed the History & Physical and in the interval since the performance of the History & Physical I have noted the following changes of clinical significance: no changes noted. Patient denies any bleeding this AM. Nursing reports his bowels are moving liquid stool that is more clear since the enema provided to him this morning. His H/H is 9.3/30.4. He denies any further issues at present. He has been NPO since prior to midnight with the exception of his bowel preparation. Keep NPO & proceed with EGD & colonoscopy this afternoon. Supervising Physician Co-Signing Physician Notes Agree with NAZANIN Saleh as above Abd: Soft, Obese, NT, +BS Continue current therapy Proceed with EGD and colonoscopy now for further evaluation of GI bleeding and acute blood loss anemia.
--- NOTE | 2020-08-18 13:14 | Heart Failure Progress Note ---
Date of Service August 18, 2020 Assessment & Plan (1) Acute on chronic diastolic (congestive) heart failure: (2) Morbid obesity with BMI of 50.0-59.9, adult: (3) On home oxygen therapy: (4) Chronic kidney disease (CKD): (5) COPD (chronic obstructive pulmonary disease): Acute on chronic diastolic congestive heart failure: Currently Class III symptoms. He is significantly hypervolemic on his exam. He notes a decrease response to Lasix (120 mg BID) at home. Continue aggressive diuresis while inpatient, Bumex 2 mg IV BID with a goal loss of 1-2 L per day. Continue to closely monitor kidney function and electrolytes. Would have a low threshold to increase to 3mg or 4mg if needed - for now he seems to be doing well on 2 mg. Anticipate 2 mg PO BID on discharge. Tachycardia may be contributing factor as well, recommend optimization of rate once BP stabilizes. Low sodium diet, less than 2,000 mg daily. Could consider inpatient dietary consult for education. Strict I&Os during admission. Daily STANDING weights each morning. Anemia: As per GI and primary service. For colonoscopy/EGD today. Atrial fibrillation. Recommend improved rate control. Plan to resume Atenolol once BP adequate. Plan for anticoagulation pending results of procedures. Discussed the nature of heart failure and the goals of the program. Patient has been referred in the past but has been resistant to follow up. I think participation would offer significant benefits to him including decrease his risk of hospitalization. He is somewhat agreeable to this. Will arrange for ongoing outpatient follow up at discharge. Will continue to follow during hospitalization. Disposition: Follow up with the heart failure program within 7 days of discharge. Follow up with Dr. Luna as scheduled 09/12/20. Admission and Anticipated Discharge Date Admission Date: August 16, 2020 Subjective Patient reports he's feeling well this am. His breathing is slightly improved. He remains on supplemental O2, 4 L. He slept with his head elevated but denies PND. He continues to demonstrate significant lower extremity edema. He effected a good diuresis with Bumex 2 mg IV yesterday. He's net negative 3 L. Weight is trending down, 312 lb on standing scale this am. He denies chest pain, tightness, palpitations, or lightheadedness. Physical Exam Physical Exam: Constitutional: Alert, oriented, in no acute distress HEENT: Head is atraumatic and normocephalic. EOMs intact. Sclera anicteric. Face is symmetric. No perioral cyanosis. Mucous membranes moist. Neck: Supple, JVD difficult to determine due to body habitus Pulmonary: Normal respiratory effort, clear to auscultation bilaterally Cardiac: Irregular rate and rhythm. Normal S1 and S2, no gallops, no rubs, no murmurs Extremities: 2+ radial pulses bilaterally. 2+ posterior tibialis pulses bilaterally. 2-3+ pitting edema extending into the thighs. No cyanosis or clubbing. Abdomen: Normal bowel sounds, soft, non-tender, no abdominal mass palpated. Obese. Skin: Normal skin color, turgor, and pigmentation, no rash, no skin lesions Neurological: Patient is awake, alert, and oriented. Pleasant and cooperative. Answers questions appropriately. Speech is clear. Normal movement in all 4 extremities. Results & Data ([facility]) Vital Signs (Past 12 Hours) Vital Signs Temp Pulse Pulse Resp BP Pulse Ox 08/18/20 11:38 97.7 F 105 H 19 119/67 99 08/18/20 08:00 101 H 08/18/20 07:30 97.5 F L 105 H 22 104/80 94 08/18/20 07:14 104 H 18 96 08/18/20 02:56 98.2 F 101 H 20 104/63 97 PG Care Time/CCT Total # of Minutes Spent Total Time Spent with Patient: Total time spent is greater than 50% in coordination of care (as documented) at patient's floor/unit and/or counseling patient: Heart Failure Data/Metrics Heart Failure Type: Diastolic Evidenced Based Beta Ivon Therapy Beta Ivon Therapy: Not Indicated SILVIA/ARB/ARNI Therapy SILVIA/ARB/ARNI Therapy: Not Indicated Aldosterone Antagonist Therapy Aldosterone Antagonist Therapy: Not Indicated Coding Level of Care Code 96002 Subseq Hosp Care Lvl 3 Diagnoses Acute on chronic diastolic (congestive) heart failure I50.33 Morbid obesity with BMI of 50.0-59.9, adult E66.01; Z68.43 On home oxygen therapy Z99.81 Chronic kidney disease (CKD) N18.31 Chronic kidney disease stage: stage 3 (moderate) Chronic kidney disease stage 3 subtype: stage 3a (GFR 45-59) COPD (chronic obstructive pulmonary disease) J44.1 COPD type: COPD with acute exacerbation (1) Chronic kidney disease (CKD) Chronic kidney disease stage: stage 3 (moderate) Chronic kidney disease stage 3 subtype: stage 3a (GFR 45-59) Qualified Code(s): N18.31 - Chronic kidney disease, stage 3a (2) COPD (chronic obstructive pulmonary disease) COPD type: COPD with acute exacerbation Qualified Code(s): J44.1 - Chronic obstructive pulmonary disease with (acute) exacerbation
--- NOTE | 2020-08-18 16:16 | Anesthesiology Consultation ---
Date of Service August 18, 2020 Assessment & Plan Chart Review Chart Review: Acceptable Risk for Surgery Consults Requested none History Surgery Operation Date: 08/18/20 16:00 Proposed Procedures p Colonoscopy EGD Dr. Edson Sandhu, Height/Weight Height: 5 ft 6 in Weight: 141.8 kg Allergies Allergy/AdvReac Type Severity Reaction Status Date / Time adhesive Allergy Mild TAPE-RASH Verified 08/16/20 13:31 oxycodone Allergy Mild RASH Verified 08/16/20 13:31 diltiazem Allergy Unknown Verified 08/16/20 13:31 Medications Home Medications Medication Instructions Recorded Confirmed Last Taken Calcium 600 + D(3) 1 cap PO BID 08/21/18 08/16/20 08/16/20 cyanocobalamin (vitamin B-12) 1,000 mcg PO QAM 11/05/18 08/16/20 08/16/20 [Vitamin B-12] albuterol sulfate 1 puff INHALATION Q6H PRN 04/12/20 08/16/20 Unknown naproxen sodium 220 mg capsule 440 mg PO BID cap 04/21/20 08/16/20 08/16/20 omeprazole 40 mg capsule,delayed 40 mg PO BID 04/21/20 08/16/20 08/16/20 release triamcinolone acetonide 55 mcg 2 spray INTRANASAL DAILY 04/21/20 08/16/20 Unknown nasal spray aerosol docusate sodium 100 mg capsule 100 mg PO BID PRN 05/18/20 08/16/20 Unknown potassium chloride 10 mEq 10 meq PO QAM tab 05/18/20 08/16/20 08/16/20 tablet,extended release apixaban 5 mg tablet 5 mg PO BID #180 tab 05/19/20 08/16/20 08/16/20 furosemide 40 mg tablet 120 mg PO BID #540 tab 05/19/20 08/16/20 08/16/20 atenolol 100 mg tablet 100 mg PO BID #180 tab 06/07/20 08/16/20 08/16/20 atorvastatin 80 mg PO HS 08/16/20 08/16/20 08/15/20 xjcixtdxyqt-fewyzmqtb-maydxbsc 1 inh INHALATION QAM 08/16/20 08/16/20 08/16/20 [Trelegy Ellipta] ipratropium-albuterol 3 ml INHALATION BID 08/16/20 08/16/20 08/16/20 multivitamin 1 tab PO QDD 08/16/20 08/16/20 08/15/20 omega 6-vvc-hqb-fish oil [Fish Oil] 1 cap PO QAM 08/16/20 08/16/20 08/16/20 triamcinolone acetonide [Nasacort] 1 spray INTRANASAL HS 08/16/20 08/16/20 08/15/20 Active Medications Generic Name Dose Route Start Last Admin Trade Name Freq PRN Reason Stop Dose Admin Albuterol 3 ml 08/16/20 21:00 08/18/20 07:12 Albut/Ipratrop 3mg/0.5mg Neb 3 Ml Vial INH 09/15/20 20:59 3 ml BID FREDDY Administration Atorvastatin Calcium 80 mg 08/16/20 21:00 08/17/20 20:40 Atorvastatin 40 Mg Tab PO 09/15/20 20:59 80 mg HS FREDDY Administration Fish Oil 1 gm 08/17/20 09:00 08/18/20 09:07 [place]-3 (Purified Fish Oil) 1 Gm Cap PO 09/16/20 08:59 Not Given QAM FREDDY Fluticasone Furoate 1 puffs 08/17/20 09:00 08/18/20 09:08 Fluticasone Furoate 100mcg 14 Puffs/Inhaler INH 09/16/20 08:59 1 puffs DAILY FREDDY Administration Pantoprazole Sodium 40 mg/ 10 mls @ 5 mls/min 08/17/20 09:00 08/18/20 09:08 Syringe IV 09/16/20 08:59 5 mls/min BID FREDDY Administration Pantoprazole Sodium 40 mg 08/16/20 21:00 08/16/20 21:49 Pantoprazole 40 Mg Tab PO 09/15/20 20:59 40 mg BID FREDDY Administration Potassium Chloride 10 meq 08/17/20 09:00 08/18/20 09:08 Potassium Chloride 10 Meq Tabcr PO 09/16/20 08:59 Not Given QAM FREDDY Triamcinolone Acetonide 1 sprays 08/16/20 21:00 08/17/20 20:41 Triamcinolone Acet Nasal [place] 10.8ml Btl NA 09/15/20 20:59 1 sprays HS FREDDY Administration Umeclidinium/Vilanterol 1 puffs 08/17/20 09:00 08/18/20 09:09 Umeclidinium/Vilanterol 62.5/25mcg 7 Puffs/Inhaler INH 09/16/20 08:59 1 puf fs DAILY FREDDY Administration NPO Date Last Intake of Fluids: 08/18/20 Time Last Intake of Fluids: 05:00 Date Last Intake of Solids: 08/16/20 Time Last Intake of Solids: 17:00 Past Medical History Medical History Acute blood loss anemia Acute exacerbation of CHF (congestive heart failure) Acute GI bleeding Acute hyperkalemia Acute hypotension Acute kidney injury XIOMY (acute kidney injury) Anemia Atrial fibrillation with slow ventricular response Walker esophagus Bilateral cellulitis of lower leg Cellulitis of right lower leg Chronic respiratory failure with hypoxia and hypercapnia Closed right hip fracture (04/05/13) Coagulopathy COPD exacerbation Difficulty swallowing Digoxin toxicity Digoxin toxicity Edema of left upper arm Gastritis, erosive Gastrointestinal hemorrhage GERD (gastroesophageal reflux disease) Hip fracture (04/03/13) History of heart artery stent x1 2008 @ [facility] by Dr. Luna History of prostate cancer Hyperlipidemia Hypertension Leg edema On anticoagulant therapy On home oxygen therapy 2-3L N/C at all times S/P right hip fracture (04/05/13) Sleep apnea CPAP with 2-3L Subepithelial gastric mass Symptomatic bradycardia Past Family History Family History Uncle Prostate cancer Mother Septicemia Father COPD (chronic obstructive pulmonary disease) Pancreatic cancer Other No family history of adverse response to anesthesia Past Surgical History Surgical History History of bilateral cataract extraction History of cardiac cath 2008 @ [facility] - HAD STENT X1 History of colonoscopy History of esophagogastroduodenoscopy (EGD) EUS 03/2019 [facility] EUS 11/21/18 Glidescope 4 with grade 1 view History of lumbar surgery hardware in place History of prostate biopsy malignant History of prostatectomy History of right shoulder replacement History of total left hip replacement History of total right hip replacement History of umbilical hernia repair Hx of nasal septoplasty Social History Smoking Status: Smoker, status unknown tobacco type: cigarettes Hx Alcohol Use: Yes Alcohol type: hard liquor alcohol intake frequency: 0-2 drinks per day Hx Substance Use: No substance use type: does not use Physical Exam Vital Signs Last Vital Signs Temp 36.5 C 08/18/20 16:01 Pulse 99 H 08/18/20 16:01 Resp 22 08/18/20 16:01 BP 103/71 08/18/20 16:01 Pulse Ox 100 08/18/20 16:01 Testing Laboratory Results 08/18/20 05:31 08/18/20 05:31 PT 13.0 Seconds (9.0-12.0) H 08/16/20 13:59 INR 1.3 (0.9-1.1) H 08/16/20 13:59 APTT 23.9 Seconds (21.0-31.0) 08/16/20 13:59 Hemoglobin A1c 5.5 % (4.5-5.6) 08/17/20 06:37 Urine Color Cancelled 08/16/20 13:07 Urine Appearance Cancelled 08/16/20 13:07 Urine pH Cancelled 08/16/20 13:07 Ur Specific [place] Cancelled 08/16/20 13:07 Urine Protein Cancelled 08/16/20 13:07 Urine Glucose (UA) Cancelled 08/16/20 13:07 Urine Ketones Cancelled 08/16/20 13:07 Urine Nitrite Cancelled 08/16/20 13:07 Ur Leukocyte Esterase Cancelled 08/16/20 13:07 Urine WBC (Auto) Cancelled 08/16/20 13:07 Urine RBC (Auto) Cancelled 08/16/20 13:07 U Hyaline Cast (Auto) Cancelled 08/16/20 13:07 U Epithel Cells (Auto) Cancelled 08/16/20 13:07 Urine Bacteria (Auto) Cancelled 08/16/20 13:07 Urine RBC 0-4 /hpf (0-4) 08/16/20 12:15 Urine WBC 0-5 /hpf (0-5) 08/16/20 12:15 Ur Epithelial Cells 10-20 /lpf (0-5) H 08/16/20 12:15 Blood Type A Positive 08/16/20 13:59 Antibody Screen NEGATIVE 08/16/20 13:59 08/16/20 12:15 Urine Culture - Final Urine,Clean Catch More than three types of organisms present, all moderate counts mixed probable skin beronica. No further identifications or sensitivities to follow.
[2020-08-18] MEDS ORDERED: LIDOCAINE 2% 2 ML VIAL/AMP(20MG/ML) INFIL ONE (16:17)
[2020-08-18] MEDS ORDERED: PROPOFOL IV EMULSION 10 MG/ML 20 ML VIAL IV ONE (16:17)
[2020-08-18] MEDS ORDERED: GLYCOPYRROLATE 0.2 MG/ML VIAL ONE (16:17)
[2020-08-18] MEDS ORDERED: KETAMINE 50 MG/5 ML SYRINGE ONE (16:20)
--- NOTE | 2020-08-18 17:05 | GI REPORT ---
Patient Name: Rodrigo Anderson Procedure Date: 08/18/2020 4:04 PM Date of : 1945 Admit Type: Inpatient Age: 75 Gender: Male Attending MD: Lex Sandhu DO Procedure: Colonoscopy Providers: Lex Sandhu DO Referring MD: Matias Luna Indications: Last colonoscopy: July 2018, Acute post hemorrhagic anemia Medicines: Monitored Anesthesia Care Complications: No immediate complications. Estimated Blood Loss: Estimated blood loss: none. Procedure: Pre-Anesthesia Assessment: - Prior to the procedure, a History and Physical was performed, and patient medications and allergies were reviewed. The patient's tolerance of previous anesthesia was also reviewed. The risks and benefits of the procedure and the sedation options and risks were discussed with the patient. All questions were answered, and informed consent was obtained. Prior Anticoagulants: The patient has taken Eliquis (apixaban), last dose was 2 days prior to procedure. ASA Grade Assessment: IV - A patient with severe systemic disease that is a constant threat to life. After reviewing the risks and benefits, the patient was deemed in satisfactory condition to undergo the procedure. After I obtained informed consent, the scope was passed under direct vision. Throughout the procedure, the patient's blood pressure, pulse, and oxygen saturations were monitored continuously. The Colonoscope was introduced through the anus and advanced to the cecum, identified by appendiceal orifice and ileocecal valve. The colonoscopy was performed without difficulty. The patient tolerated the procedure well. The quality of the bowel preparation was good. The terminal ileum, ileocecal valve, appendiceal orifice, and rectum were photographed. Findings: The perianal and digital rectal examinations were normal. Multiple small-mouthed diverticula were found in the sigmoid colon. Non-bleeding internal hemorrhoids were found during retroflexion. The hemorrhoids were small. Impression: - Diverticulosis in the sigmoid colon. - Non-bleeding internal hemorrhoids. - No specimens collected. Recommendation: - [facility]. - Advance diet as tolerated. - Continue present medications. - No repeat colonoscopy due to age and the absence of advanced adenomas. Lex Sandhu DO 08/18/2020 5:05:30 PM This report has been signed electronically. Note Initiated On: 08/18/2020 4:04 PM Number of Addenda: 0 I attest to the content of the Intraoperative Record and orders documented therein, exceptions below {[id number]}
--- NOTE | 2020-08-18 17:12 | GI REPORT ---
Patient Name: Rodrigo Anderson Procedure Date: 08/18/2020 4:05 PM Date of : 1945 Admit Type: Inpatient Age: 75 Gender: Male Attending MD: Lex Sandhu DO Procedure: Upper GI endoscopy Providers: Lex Sandhu DO Referring MD: Matias Luna Indications: Acute post hemorrhagic anemia Medicines: Monitored Anesthesia Care Complications: No immediate complications. Estimated Blood Loss: Estimated blood loss: none. Procedure: Pre-Anesthesia Assessment: - Prior to the procedure, a History and Physical was performed, and patient medications and allergies were reviewed. The patient's tolerance of previous anesthesia was also reviewed. The risks and benefits of the procedure and the sedation options and risks were discussed with the patient. All questions were answered, and informed consent was obtained. Prior Anticoagulants: The patient has taken Eliquis (apixaban), last dose was 2 days prior to procedure. ASA Grade Assessment: IV - A patient with severe systemic disease that is a constant threat to life. After reviewing the risks and benefits, the patient was deemed in satisfactory condition to undergo the procedure. After obtaining informed consent, the endoscope was passed under direct vision. Throughout the procedure, the patient's blood pressure, pulse, and oxygen saturations were monitored continuously. The Colonoscope was introduced through the mouth, and advanced to the fourth part of duodenum. The upper GI endoscopy was accomplished without difficulty. The patient tolerated the procedure well. Findings: The esophagus was normal. A small hiatal hernia was present. Multiple 2 to 5 mm angioectasias with stigmata of recent bleeding were found in the gastric antrum. Coagulation for hemostasis using argon plasma at 1.4 liters/minute and 35 jenkins was successful. A medium-sized, submucosal, non-circumferential mass with no bleeding and no stigmata of recent bleeding was found on the greater curvature of the stomach. The examined duodenum was normal. Impression: - Normal esophagus. - Small hiatal hernia. - Multiple recently bleeding angioectasias in the stomach. Treated with argon plasma coagulation (APC). 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 - Normal examined duodenum. - No specimens collected. Recommendation: - [facility]. - Advance diet as tolerated. - Continue present medications. Lexajit Sandhu, DO 08/18/2020 5:12:21 PM This report has been signed electronically. Note Initiated On: 08/18/2020 4:05 PM Number of Addenda: 0 I attest to the content of the Intraoperative Record and orders documented therein, exceptions below {[id number]}
--- NOTE | 2020-08-18 17:45 | Anesthesiology Progress Note ---
Date of Service August 18, 2020 Anesthesia Post Procedure Vital Signs Vital Signs: Temp Pulse Pulse Resp BP BP Pulse Ox 08/18/20 17:36 120 H 20 82/70 L 100 08/18/20 17:22 114 H 20 96/64 L 100 08/18/20 17:05 125 H 16 82/66 L 100 08/18/20 16:01 36.5 C 99 H 22 103/71 103/71 100 08/18/20 15:20 104 H 08/18/20 11:38 36.5 C 105 H 19 119/67 99 08/18/20 08:00 101 H 08/18/20 07:30 36.4 C L 105 H 22 104/80 94 08/18/20 07:14 104 H 18 96 08/18/20 02:56 36.8 C 101 H 20 104/63 97 08/17/20 23:27 36.6 C 102 H 20 132/71 97 08/17/20 22:20 103 H 08/17/20 19:29 36.3 C L 115 H 22 133/72 94 08/17/20 17:57 100 H 20 95 Transfer of Care Handoff Completed per policy Notes Mental Status: alert / awake / arousable and participated in evaluation Patient Amnestic to Procedure: Yes Nausea / Vomiting: adequately controlled Pain: adequately controlled Airway Patency, RR, SpO2: stable & adequate BP & HR: stable & adequate Hydration State: stable & adequate Anesthetic Complications: no major complications apparent
[2020-08-18] MEDS: BUMETANIDE 2 MG in SYRINGE 0 ML IV SCH (18:18)
[2020-08-18] MEDS: ATORVASTATIN 40 MG TAB PO SCH (20:20)
[2020-08-18] MEDS: TRIAMCINOLONE ACET NASAL SPRAY 10.8ML BTL SCH (20:21)
[2020-08-18] MEDS: POTASSIUM CHLORIDE CRTAB 20 MEQ TABCR PO SCH (20:22)
[2020-08-18] MEDS: PANTOprazole 40 MG TAB PO SCH (20:37)
[2020-08-18] MEDS ORDERED: ATENOLOL 50 MG TABLET PO ONE (23:38)
[2020-08-19 05:41] LABS: Basophils # (auto) 0.01 K/uL (0-0.2); Basophils % (auto) 0.1 %; Eosinophils # (auto) 0.11 K/uL (0-0.5); Eosinophils % (auto) 1.6 %; Hematocrit (blood only) 29.6 % (42-52); Hemoglobin 8.8 g/dL (14.0-18.0); Immature Granulocytes # (auto) 0.01 K/uL (0.00-0.02); Immature Granulocytes % (auto) 0.1 %; Lymphocytes # (auto) 0.91 K/uL (1.2-3.4); Lymphocytes % (auto) 12.9 %; Mean Corpuscular Hemoglobin 27.3 pg (25-34); Mean Corpuscular Hgb Conc 29.7 g/dL (32-36); Mean Corpuscular Volume 91.9 fL (80-100); Mean Platelet Volume 9.9 fL (7.4-10.4); Monocytes # (auto) 0.69 K/uL (0.11-0.59); Monocytes % (auto) 9.7 %; Neutrophils # (auto) 5.35 K/uL (1.4-6.5); Neutrophils % (auto) 75.6 %; Platelet Count 223 K/uL (130-400); RDW Coefficient of Variation 17.1 % (11.5-14.5); RDW Standard Deviation 56.8 fL (36.4-46.3); Red Blood Count 3.22 M/uL (4.7-6.1); White Blood Count 7.08 K/uL (4.8-10.8)
[2020-08-19 06:18] LABS: BUN Creatinine Ratio 19.1 (10-20); Calcium 7.6 mg/dl (8.5-10.1); Creatinine Clr Calc Pharmacy 83.4 ml/min; Est GFR (African American) 80.3 ml/min; Est GFR (Non-African American) 69.3 ml/min; Magnesium 2.4 mg/dl (1.8-2.4); Potassium 3.9 mmol/L (3.5-5.1)
[2020-08-19] MEDS: ALBUT/IPRATROP 3MG/0.5MG NEB 3 ML VIAL INH SCH ×2 (07:23→19:23)
[2020-08-19] MEDS: ACETAMINOPHEN 325 MG TAB PO PRN ×2 (08:10→20:43)
[2020-08-19] MEDS: BUMETANIDE 2 MG in SYRINGE 0 ML IV SCH ×2 (08:45→16:52)
[2020-08-19] MEDS: PANTOprazole 40 MG TAB PO SCH ×2 (08:46→20:26)
[2020-08-19] MEDS: OMEGA-3 (PURIFIED FISH OIL) 1 GM CAP PO SCH (08:46)
[2020-08-19] MEDS: POTASSIUM CHLORIDE CRTAB 20 MEQ TABCR PO SCH ×2 (08:46→20:26)
[2020-08-19] MEDS: FLUTICASONE FUROATE 100MCG 14 PUFFS/INHALER INH SCH (08:47)
[2020-08-19] MEDS: UMECLIDINIUM/VILANTEROL 62.5/25MCG 7 PUFFS/INHALER INH SCH (08:48)
--- NOTE | 2020-08-19 09:41 | Hospitalist Progress Note ---
Date of Service August 19, 2020 Assessment & Plan (1) GI bleed: Unspecified source, presumed lower but did have melena noted as well. Along with acute on chronic CHF exacerbation. (Weight 146.6kg on admission from 120s more dry weight, currently 139.3kg this AM) * WAS taking aleve 2 pills twice daily for at least 1 year -- educated on avoidance of NSAIDs and to use tylenol as needed for pain. Has been controlling his shoulder pain * On Eliquis and had been using Naproxen as he had not been told to avoid per his account (holding currently) * Transfused 4u PRBC * GI consulted 08/18 s/p EGD/c-scope with Dr. Sandhu * EGD: Multiple recently bleeding angioectasias in the stomach. Treated with argon plasma coagulation (APC). 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 * C-scope: non bleeding internal hemorrhoids * Placed back on Protonix 40mg PO BID and to be continued at discharge 08/19 * Hgb 8.8 but still signif volume overload and suspect some hemodilution as no further bleeding reported * Iron studies on admission with low iron 30 (prior IV iron req HD) and will order PO supplementation -- would continue at d/c for 2-3 months and have repeat labs now that he will no longer be on Aleve and is instructed to avoid NSAIDs in general * Will attempt to resume Eliquis in AM unless felt otherwise by cardiology * Diuresis as below * Telemetry 100-120s this AM, resumed atenolol --> in 80s-90s currently, afib * CBC in AM (2) Acute on chronic diastolic (congestive) heart failure: * ECHO 08/28/18 with EF 60-65%. Most recent 02/17/20 with hyperdynamic LV, no wnl. mild LVH. Of note, had been in volume overload state at that time * Wt on admission 146.6kg * Dry weight closer to 120kg * Switched lasix 120mg PO BID to Bumex 2mg IV BID 08/17- : * Output 4L, net negative 2.3L * Wt 141kg 08/18-: * Additional 3.2L output, net -1.5L * Wt 139.3kg * Continue bumex 2mg IV BID * Additional 675cc so far this afternoon * Had given evening doses of 100mg atenolol on 08/17 and 08/18 as BP tolerated with diuresis--> Resumed usual 100mg BID today * CHF clinic referral * Discussed with patient about monitoring daily weights at home. and patient report they had been doing that up until past couple of months when weight gain became issue. * TO WATCH FLUID INTAKE AND BE MINDFUL AT D/C TO LIMIT INTAKE, MORE ICE IF NEEDED * F/U CHF clinic AND DR. BUSCH AT D/C * Continue to monitor (3) Permanent atrial fibrillation: * As above * Atenolol 100mg PO BID resumed, rates improved, currently 80-90s * Eliquis as above,cardiology reviewing need for continued vs atrial appendage occ. 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 Nephrology following. 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 I agree w/ the blancas components of her documentation. Labs & vitals are acceptable - hemoglobin today 8.8. Continue current care plan. Diurese. H/H in am . Avila Abraham MD Subjective Patient evaluated this afternoon with at bedside. Confirmed Aleve 2pills 2x/daily that had initially been one pill once daily but increased by Dr. Aguilar for his pain. Reviewed EGD/c-scope and treatment. Tylenol effective at pain control for his shoulder. Can try topical Voltaren if needed but no needs at this time. No further bleeding. Eating/drinking no issue. Started on oral iron daily. Discussed restarted atenolol and will continue his Bumex. Kidney function improving. Shortness of breath and abdominal fullness improved. Has dry mouth/nose due to oxygen and agreeable to humidify oxygen. Of note, confirmed with they do have scale at home and had been doing daily weights but haven't for the past couple of months. Did note increased abd fullness and belly touching the steering wheel as well as inability to put on his socks let alone his shoes. Had increased PND and filling up bedside urinal more than once at times. Discussed need for CHF clinic follow up and can coordinate with his primary photostat operator Dr. Busch to keep stable and prevent need for rehospitalization in the future as Mr Anderson states in past he was here almost a month for diuresis at one point. He and state they will need vary specific instructions at discharge given prior admission last year when he was to stop his digoxin but and patient denied having known this. They would also like Finn Garrison from pulmonary and Dr Mijares to be provided with information and medication changes so that everyone is on the same page. No fever, chills, chest pain, abdominal pain, nausea, vomiting or dysuria at this time. Questions/concerns were addressed at this time. Review of Systems Review of Systems: All systems reviewed & are unremarkable except as noted in HPI & below Physical Exam Physical Exam: General: awake, alert, no apparent distress, well nourished, well developed. morbidly obese. sitting up in bed watching TV. at bedside Head: Normocephalic, atraumatic ENT: PERRL, EOMI, no pharyngeal exudate, mucous membranes dry Neuro: AAO x 3, euthymic. speech clear and appropriate, strength intact bilaterally, sensation intact and equal all extremities and dermatomes, no pronator drift Resp: equal rise and fall of the chest, no accessory muscle use, no heaves or thrills, diminished BS in bases. +Wheezing throughout. Bibasilar crackels 98%on 4L NC Cardiac: irregularly irregular 108bpm, cap refill <3 seconds. 2-3+ pitting edema bilaterally up to thighs. NVI. pulses palpable. multiple excoriations to b/l LE noted GI: NABS x 4 quadrants, soft, distended, nontender to palpation, no rebound, guarding or tenderness : Menendez with yellow urine draining, 700cc in bag currently Extremities: chronic venous insufficiency to bilateral lower extremities, mild erythema, calfs nontender to palpation Psych: Normal mood and affect Results & Data Results & Data ([facility]) Vital Signs (Past 12 Hours) Vital Signs Temp Pulse Pulse Pulse Resp BP Pulse Ox 08/19/20 08:50 96 H 08/19/20 08:06 37.0 C 120 H 18 128/65 96 08/19/20 07:23 98 H 18 96 08/19/20 04:29 36.8 C 104 H 18 95/53 L 97 08/18/20 23:26 37.4 C 115 H 18 110/66 90 08/18/20 22:20 122 H Laboratory Results 08/19/20 08/19/20 Range/Units 05:21 05:21 WBC 7.08 (4.8-10.8) K/uL RBC 3.22 L (4.7-6.1) M/uL Hgb 8.8 L (14.0-18.0) g/dL Hct 29.6 L (42-52) % MCV 91.9 (80-100) fL MCH 27.3 (25-34) pg MCHC 29.7 L (32-36) g/dL RDW Std Deviation 56.8 H (36.4-46.3) fL RDW Coeff of Ezekiel 17.1 H (11.5-14.5) % Plt Count 223 (130-400) K/uL MPV 9.9 (7.4-10.4) fL Immature Gran % (Auto) 0.1 % Neut % (Auto) 75.6 % Lymph % (Auto) 12.9 % [place] % (Auto) 9.7 % Eos % (Auto) 1.6 % Baso % (Auto) 0.1 % Neut # (Auto) 5.35 (1.4-6.5) K/uL Lymph # (Auto) 0.91 L (1.2-3.4) K/uL [place] # (Auto) 0.69 H (0.11-0.59) K/uL Eos # (Auto) 0.11 (0-0.5) K/uL Baso # (Auto) 0.01 (0-0.2) K/uL Immature Gran # (Auto) 0.01 (0.00-0.02) K/uL Sodium 144 (136-145) mmol/L Potassium 3.9 (3.5-5.1) mmol/L Chloride 106 (98-107) mmol/L Carbon Dioxide 36 H (21-32) mmol/L Anion Gap 2.0 L (3-11) BUN 20 H (7-18) mg/dl Creatinine 1.06 (0.6-1.4) mg/dl Est Cr Clr Drug Dosing 83.4 ml/min Est GFR ( Amer) 80.3 ml/min Est GFR (Non-Af Amer) 69.3 ml/min BUN/Creatinine Ratio 19.1 (10-20) Glucose 96 (70-99) mg/dl Calcium 7.6 L (8.5-10.1) mg/dl Magnesium 2.4 (1.8-2.4) mg/dl PG Care Time/CCT Total # of Minutes Spent Total Time Spent with Patient: Total time spent is greater than 50% in coordination of care (as documented) at patient's floor/unit and/or counseling patient: Coding Level of Care Code 28571 Subseq Hosp Care Lvl 3 Diagnoses GI bleed K92.2 GI bleed type/associated pathology: unspecified gastrointestinal hemorrhage type Acute on chronic diastolic (congestive) heart failure I50.33 Permanent atrial fibrillation I48.2 Anemia D64.9 Anemia type: unspecified type Chronic kidney disease (CKD) N18.31 Chronic kidney disease stage: stage 3 (moderate) Chronic kidney disease stage 3 subtype: stage 3a (GFR 45-59) COPD (chronic obstructive pulmonary disease) J44.1 COPD type: COPD with acute exacerbation Hyperlipidemia E78.5 Hyperlipidemia type: unspecified Hypertension I10 Hypertension type: essential hypertension On home oxygen therapy Z99.81 Morbid obesity with BMI of 50.0-59.9, adult E66.01; Z68.43 Acute blood loss anemia D62 Chronic respiratory failure with hypoxia and hypercapnia J96.11; J96.12 (1) GI bleed GI bleed type/associated pathology: unspecified gastrointestinal hemorrhage type Qualified Code(s): K92.2 - Gastrointestinal hemorrhage, unspecified (2) Anemia Anemia type: unspecified type Qualified Code(s): D64.9 - Anemia, unspecified (3) Hyperlipidemia Hyperlipidemia type: unspecified Qualified Code(s): E78.5 - Hyperlipidemia, unspecified (4) Chronic kidney disease (CKD) Chronic kidney disease stage: stage 3 (moderate) Chronic kidney disease stage 3 subtype: stage 3a (GFR 45-59) Qualified Code(s): N18.31 - Chronic kidney disease, stage 3a (5) COPD (chronic obstructive pulmonary disease) COPD type: COPD with acute exacerbation Qualified Code(s): J44.1 - Chronic obstructive pulmonary disease with (acute) exacerbation (6) Hypertension Hypertension type: essential hypertension Qualified Code(s): I10 - Essential (primary) hypertension
--- NOTE | 2020-08-19 10:41 | Gastroenterology Progress Note ---
Date of Service August 19, 2020 Assessment & Plan (1) Acute blood loss anemia: (2) AVM (arteriovenous malformation): -Continue Protonix 40 mg BID (continue for discharge as well). -Continue to monitor H/H. -Agree with Dr. Sandhu's recommendation from yesterday to advance diet as tolerated, barring any other planned testing/studies per primary team or other consulting services. Admission and Anticipated Discharge Date Admission Date: August 16, 2020 Supervising Physician Co-Signing Physician Notes Agree with NAZANIN Saleh as above Abd: Soft, Obese, NT Continue current therapy Advance diet as tolerated Will defer to primary team regarding further anticoagulation, as GI bleed is a relative contraindication to anticoagulation, and therefore risk/benefit analysis is vital. Subjective Patient is a 75 yo male with anemia. He underwent an EGD and colonoscopy on 08/18/20 that indicated a gastric AVM. This was treated with APC. H/H stable today at 8.8/29.6. No further GI bleeding. Patient is hungry and appears to be on a liquid diet still. He is receiving IV Protonix 40 mg BID. Review of Systems Constitutional: no fever and no chills Respiratory: no cough and no dyspnea Cardiovascular: no chest pain Gastrointestinal: no abdominal pain and no melena Physical Exam Constitutional: well developed Respiratory: normal respiratory effort Cardiovascular: Extremities: no edema Gastrointestinal (Abdomen): Inspection/Auscultation: abdomen normal to inspection and normal bowel sounds (difficult to auscultate due to body habitus) Percussion/Palpation: abdomen soft; abdomen nontender Musculoskeletal: Head/Neck/Chest: normocephalic Psychiatric: A+Ox3, euthymic affect Results & Data Results & Data ([facility]) Vital Signs (Past 12 Hours) Vital Signs Temp Pulse Pulse Pulse Resp BP Pulse Ox 08/19/20 08:50 96 H 08/19/20 08:15 90 08/19/20 08:06 37.0 C 120 H 18 128/65 96 08/19/20 07:23 98 H 18 96 08/19/20 04:29 36.8 C 104 H 18 95/53 L 97 08/18/20 23:26 37.4 C 115 H 18 110/66 90 PG Care Time/CCT Total # of Minutes Spent Total Time Spent with Patient: Total time spent is greater than 50% in coordination of care (as documented) at patient's floor/unit and/or counseling patient: Coding Level of Care Code 91925 Subseq Hosp Care Lvl 3 Diagnoses Acute blood loss anemia D62 AVM (arteriovenous malformation) Q27.30
[2020-08-19] MEDS: ATENOLOL 50 MG TABLET PO SCH ×2 (11:03→20:26)
[2020-08-19] MEDS: FERROUS SULFATE 325 MG TAB PO SCH (11:03)
[2020-08-19] MEDS: VITAMIN B COMPLEX TAB PO SCH (15:31)
--- NOTE | 2020-08-19 17:25 | Cardiology Progress Note ---
Date of Service August 19, 2020 Assessment & Plan (1) Acute on chronic diastolic (congestive) heart failure: He appears to be diuresing well on his current medical regimen. I will continue the Bumex twice daily monitoring his electrolytes and renal function closely. At some point he can be transitioned to an oral regimen of Bumex and monitored on an outpatient basis. (2) Permanent atrial fibrillation: No symptoms of atrial fibrillation. He has had some higher ventricular rates over the past 24 hours. I believe this is related to holding his beta- surjit. He is now back on his outpatient dose of atenolol and his heart rates are improved. With respect to ongoing anticoagulation, we will require some guidance from the GI service. However, if the bleeding was felt to be due to his AVMs which were cauterized, then resuming his apixaban seems like a good idea. However, I would wait couple of days order to ensure there was no additional bleeding before restarting the medication. He has had some symptoms of gastrointestinal bleeding previously. He appears to be a good candidate for the Watchman device as an alternative to ongoing anticoagulation. A referral could be arranged in the outpatient setting. (3) CAD (coronary artery disease): He has remote history of PCI to the RCA. No current symptoms suggestive of coronary insufficiency or angina. He should be continued high-dose atorv astatin. Admission and Anticipated Discharge Date Admission Date: August 16, 2020 Subjective This afternoon the patient claims to be feeling well. He states his breathing is fine. He does report being ambulatory back in 4 to the bathroom without significant difficulty. No abdominal pain. Tolerating a diet. Review of Systems Review of Systems: Per HPI Physical Exam Physical Exam: The patient is alert and oriented. Mood and affect appeared normal. He answered all questions appropriately. HEENT: Pupils are equal and reactive to light and accommodation. Extraocular movements are intact. The sclerae are anicteric. Neuro: Cranial nerves intact Lungs: Normal respiratory effort Cardiac: Regular rhythm Pulses: The patient has palpable radial pulses bilaterally that are equal in intensity somewhat diminished overall. Abdomen: Distended Extremities: There was no evidence of hypoperfusion. There is no cyanosis or clubbing. Severe lower extremity edema. Skin: I did not appreciate any rashes on examination today. Some ecchymosis on both arms. Results & Data ([facility]) Vital Signs (Past 12 Hours) Vital Signs Temp Pulse Pulse Pulse Resp BP Pulse Ox 08/19/20 15:26 36.8 C 92 H 84 18 111/65 98 08/19/20 11:56 36.7 C 108 H 18 101/68 98 08/19/20 08:50 96 H 08/19/20 08:15 90 08/19/20 08:06 37.0 C 120 H 18 128/65 96 08/19/20 07:23 98 H 18 96 Laboratory Results Abnormal Lab Results 08/19/20 08/19/20 05:21 05:21 WBC 7.08 RBC 3.22 L Hgb 8.8 L Hct 29.6 L MCV 91.9 MCH 27.3 MCHC 29.7 L RDW Std Deviation 56.8 H RDW Coeff of Ezekiel 17.1 H Plt Count 223 MPV 9.9 Immature Gran % (Auto) 0.1 Neut % (Auto) 75.6 Lymph % (Auto) 12.9 Kane % (Auto) 9.7 Eos % (Auto) 1.6 Baso % (Auto) 0.1 Neut # (Auto) 5.35 Lymph # (Auto) 0.91 L Kane # (Auto) 0.69 H Eos # (Auto) 0.11 Baso # (Auto) 0.01 Immature Gran # (Auto) 0.01 Sodium 144 Potassium 3.9 Chloride 106 Carbon Dioxide 36 H Anion Gap 2.0 L BUN 20 H Creatinine 1.06 Est Cr Clr Drug Dosing 83.4 Est GFR ( Amer) 80.3 Est GFR (Non-Af Amer) 69.3 BUN/Creatinine Ratio 19.1 Glucose 96 Calcium 7.6 L Magnesium 2.4 Diagnostic Findings Chest x-ray demonstrated Mild pulmonary edema and trace bilateral pleural effusions. PG Care Time/CCT Total # of Minutes Spent Total Time Spent with Patient: Total time spent is greater than 50% in coordination of care (as documented) at patient's floor/unit and/or counseling patient: Coding Level of Care Code 37867 Subseq Hosp Care Lvl 2 Diagnoses Acute on chronic diastolic (congestive) heart failure I50.33 Permanent atrial fibrillation I48.2 CAD (coronary artery disease) I25.10 Coronary Disease-Associated Artery/Lesion type: eek artery [place] vs. transplanted heart: eek heart Associated angina: without angina (1) CAD (coronary artery disease) Coronary Disease-Associated Artery/Lesion type: eek artery [place] vs. transplanted heart: eek heart Associated angina: without angina Qualified Code(s): I25.10 - Atherosclerotic heart disease of eek coronary artery without angina pectoris
[2020-08-19] MEDS ORDERED: CALCIUM GLUCONATE 10% 1,000 MG in SODIUM CHLORIDE 0.9% 50 ML IV ONE (19:00)
[2020-08-19] MEDS: ATORVASTATIN 40 MG TAB PO SCH (20:26)
[2020-08-19] MEDS: TRIAMCINOLONE ACET NASAL SPRAY 10.8ML BTL SCH (20:26)
[2020-08-19] MEDS ORDERED: APIXABAN 5 MG TABLET PO SCH (21:00)
[2020-08-20] MEDS: ALBUT/IPRATROP 3MG/0.5MG NEB 3 ML VIAL INH SCH ×2 (07:00→19:13)
[2020-08-20 07:34] LABS: Hematocrit (blood only) 31.3 % (42-52); Mean Corpuscular Hemoglobin 27.4 pg (25-34); Mean Corpuscular Hgb Conc 28.8 g/dL (32-36); Mean Corpuscular Volume 95.4 fL (80-100); Mean Platelet Volume 9.9 fL (7.4-10.4); Platelet Count 221 K/uL (130-400); RDW Coefficient of Variation 16.9 % (11.5-14.5); RDW Standard Deviation 58.4 fL (36.4-46.3); Red Blood Count 3.28 M/uL (4.7-6.1); White Blood Count 6.84 K/uL (4.8-10.8)
[2020-08-20 07:48] LABS: Albumin Level 2.7 gm/dl (3.4-5.0); BUN Creatinine Ratio 15.4 (10-20); Creatinine Clr Calc Pharmacy 88.2 ml/min; Est GFR (African American) 87.2 ml/min; Est GFR (Non-African American) 75.2 ml/min
[2020-08-20 07:51] LABS: Albumin Globulin Ratio 0.8 (0.9-2); Bilirubin,Total 0.7 mg/dl (0.2-1); Globulin 3.5 gm/dl (2.5-4.0); Total Protein 6.2 gm/dl (6.4-8.2)
[2020-08-20] MEDS: PANTOprazole 40 MG TAB PO SCH ×2 (08:09→20:54)
[2020-08-20] MEDS: POTASSIUM CHLORIDE CRTAB 20 MEQ TABCR PO SCH ×2 (08:10→20:54)
[2020-08-20] MEDS: FERROUS SULFATE 325 MG TAB PO SCH (08:10)
[2020-08-20] MEDS: VITAMIN B COMPLEX TAB PO SCH (08:10)
[2020-08-20] MEDS: FLUTICASONE FUROATE 100MCG 14 PUFFS/INHALER INH SCH (08:11)
[2020-08-20] MEDS: UMECLIDINIUM/VILANTEROL 62.5/25MCG 7 PUFFS/INHALER INH SCH (08:11)
[2020-08-20] MEDS: BUMETANIDE 2 MG in SYRINGE 0 ML IV SCH (08:11)
[2020-08-20] MEDS: ATENOLOL 50 MG TABLET PO SCH ×2 (08:13→20:54)
[2020-08-20] MEDS ORDERED: acetaZOLAMIDE 250 MG TAB PO ONE (09:50)
--- NOTE | 2020-08-20 09:53 | Hospitalist Progress Note ---
Date of Service August 20, 2020 Assessment & Plan (1) GI bleed: Unspecified source, presumed lower but did have melena noted as well. Along with acute on chronic CHF exacerbation. (Weight 146.6kg on admission from 120s more dry weight, currently 139.3kg this AM) * WAS taking aleve 2 pills twice daily for at least 1 year -- educated on avoidance of NSAIDs and to use tylenol as needed for pain. Has been controlling his shoulder pain * On Eliquis and had been using Naproxen as he had not been told to avoid per his account (holding currently) * Transfused 4u PRBC * GI consulted 08/18 s/p EGD/c-scope with Dr. Sandhu * EGD: Multiple recently bleeding angioectasias in the stomach. Treated with argon plasma coagulation (APC). 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 * C-scope: non bleeding internal hemorrhoids * Placed back on Protonix 40mg PO BID and to be continued at discharge 08/19 * Hgb 8.8 but still signif volume overload and suspect some hemodilution as no further bleeding reported * Iron studies on admission with low iron 30 (prior IV iron req HD) and will order PO supplementation -- would continue at d/c for 2-3 months and have repeat labs now that he will no longer be on Aleve and is instructed to avoid NSAIDs in general * Diuresis as below * Resumed atenolol 100mg BID 08/20 hgb 9.0 -- no further bleeding reported. Continuing to hold eliquis to prevent rebleeding. To resume when safe with cardiology/GI -- hesitant to resume given risk for rebleeding -- possible restart in AM Started iron supplementations (added bowel regimen to prevent constipation) CBC in AM (2) Acute on chronic diastolic (congestive) heart failure: * ECHO 08/28/18 with EF 60-65%. Most recent 02/17/20 with hyperdynamic LV, no wnl. mild LVH. Of note, had been in volume overload state at that time * Wt on admission 146.6kg * Dry weight closer to 120kg * Switched lasix 120mg PO BID to Bumex 2mg IV BID CHF referral --> will need close f/u outpatient Discussed with patient about monitoring daily weights at home. and patient report they had been doing that up until past couple of months when weight gain became issue. TO WATCH FLUID INTAKE AND BE MINDFUL AT D/C TO LIMIT INTAKE, MORE ICE IF NEEDED Discussed at length sodium and fluid restriction with patient and at bedside and to keep dietary journal for sodium as well as log of daily weights to get better control on chronic issue Atenolol 100 mg twice daily resumed on 08/19 blood pressures have tolerated 08/17- : * Output 4L, net negative 2.3L. Of note he did get a dose of Diamox * Wt 141kg 08/18-: * Additional 3.2L output, net -1.5L * Wt 139.3kg * Continued bumex 2mg IV BID 08/19-08/20: * Did not obtain standing weight this AM * Output 1.9L, net -1.2L * *Increasing to bumex 3mg IV BID (2mg BID equivalent to usual home dosing and will increase as tolerated) * Attempted dose of Diamox today as was done on 08/17 with good success however patient developed shaking which has resolved and will avoid repeat dose of this in the future * Cr improved to 0.99 on Am labs (3) Permanent atrial fibrillation: * As above * Atenolol 100mg PO BID resumed, rates improved, currently 80-90s * Eliquis as above,cardiology reviewing need for continued vs atrial appendage occ. * continue to monitor on telemetry --got a dose of Lopressor this afternoon for rate up to 140 (4) Anemia: * As above-- started oral iron supp as above for iron low at 30 (5) Chronic kidney disease (CKD): * CKD III with XIOMY - [employer] doubled from outpatient. 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 Nephro consulted, signed off. * Cr improving with diuresis -- currently 0.99 from 2.17 on admission * Lasix --> bumex as above (6) COPD (chronic obstructive pulmonary disease): * No acute needs, continue home inhalers * chronic oxygen therapy- continue 4l NC * CPAP at night (7) Hyperlipidemia: * Continue Atorvastatin when on PO (8) Hypertension: * As above- offload volume * BP tolerating diuretics and atenolol able to be resumed as above * BP currently 102/55 * Continue to monitor (9) On home oxygen therapy: * On 4L chronically * please forward d/c summary to Finn Garrison per patient request (as well as Dr Mijares) GERD/Barretts * On omeprazole 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 --> Patient to be good candidate for watchman device as alternative and ref could be arranged in outpatient setting if unable to resume. * SCDs Dispo: continued inpatient stay for diuresis PT/OT consultations placed (10) Morbid obesity with BMI of 50.0-59.9, adult: (11) Acute blood loss anemia: (12) Chronic respiratory failure with hypoxia and hypercapnia: Admission and Anticipated Discharge Date Admission Date: August 16, 2020 Supervising Physician Co-Signing Physician Notes Attending Attestation - Chart reviewed in detail, care plan d/w ALEXANDRA Momin. I agree w/ the blancas components of her documentation. Labs & vitals are acceptable today including Hb 9 and Cr 0.99. Continue diuresis for decompensated CHF. Trend the H/H. Cont PPI. Avila Abraham MD Subjective Patient evaluated this afternoon. He had previously had an episode of shivering following administration of Diamox although he did tolerate this dose 2 days prior. Will avoid in the future as this was likely the culprit and has resolved. His heart rates did get up to the [id number] in A. fib and was given a dose of Lopressor with resolution of the [id number]. He continues to have good diuresis however we will attempt to increase his Bumex to 3 mg twice daily as blood pressures tolerate. He states his breathing is improved. He has not yet had a bowel movement per his account. Updated at bedside and discussed importance of fluid restriction as they had questions regarding why he needed to have this reduced dose. . That and patient unaware salt intake increasing thirst and increasing his fluid intake which further promotes his heart failure and weight gain and will need to closely monitor his dietary and fluid intake at discharge to prevent recurrence of present issue. They are in agreement to follow-up for CHF program at discharge. Patient currently denies any headaches, blurred vision, chest pain, abdominal discomfort, nausea, vomiting at this time. No further bleeding reported and his hemoglobin remained stable discussed starting iron supplementation which should be continued at discharge at least temporarily given his bleeding. All questions and concerns addressed at this time. Review of Systems Review of Systems: All systems reviewed & are unremarkable except as noted in HPI & below Physical Exam Physical Exam: General: awake, alert, no apparent distress, well nourished, well developed. morbidly obese. sitting up in bed watching TV. at bedside Head: Normocephalic, atraumatic ENT: PERRL, EOMI, no pharyngeal exudate, mucous membranes dry Neuro: AAO x 3, euthymic. speech clear and appropriate, strength intact bilaterally, sensation intact and equal all extremities and dermatomes, no pronator drift Resp: equal rise and fall of the chest, no accessory muscle use, no heaves or thrills, diminished BS in bases. +Wheezing throughout (decreased). Bibasilar crackles 92%on 4L NC Cardiac: irregularly irregular 98bpm, cap refill <3 seconds. 2-3+ pitting edema bilaterally up to thighs. NVI. pulses palpable. multiple excoriations to b/l LE noted GI: NABS x 4 quadrants, soft, distended, nontender to palpation, no rebound, guarding or tenderness : Menendez with yellow urine draining Extremities: chronic venous insufficiency to bilateral lower extremities, mild erythema, calfs nontender to palpation Psych: Normal mood and affect Results & Data Results & Data ([facility]) Vital Signs (Past 12 Hours) Vital Signs Temp Pulse Pulse Pulse Resp BP BP 08/20/20 08:00 93 H 76 130/71 08/20/20 07:59 36.7 C 64 19 91/51 L 08/20/20 07:02 71 18 08/20/20 04:29 37.0 C 96 H 18 102/61 08/19/20 23:07 36.7 C 107 H 18 110/61 Pulse Ox 08/20/20 08:00 08/20/20 07:59 98 08/20/20 07:02 98 08/20/20 04:29 95 08/19/20 23:07 91 Laboratory Results 08/20/20 08/20/20 Range/Units 06:56 06:56 WBC 6.84 (4.8-10.8) K/uL RBC 3.28 L (4.7-6.1) M/uL Hgb 9.0 L (14.0-18.0) g/dL Hct 31.3 L (42-52) % MCV 95.4 (80-100) fL MCH 27.4 (25-34) pg MCHC 28.8 L (32-36) g/dL RDW Std Deviation 58.4 H (36.4-46.3) fL RDW Coeff of Ezekiel 16.9 H (11.5-14.5) % Plt Count 221 (130-400) K/uL MPV 9.9 (7.4-10.4) fL Sodium 143 (136-145) mmol/L Potassium 4.0 (3.5-5.1) mmol/L Chloride 105 (98-107) mmol/L Carbon Dioxide 35 H (21-32) mmol/L Anion Gap 3.0 (3-11) BUN 15 (7-18) mg/dl Creatinine 0.99 (0.6-1.4) mg/dl Est Cr Clr Drug Dosing 88.2 ml/min Est GFR ( Amer) 87.2 ml/min Est GFR (Non-Af Amer) 75.2 ml/min BUN/Creatinine Ratio 15.4 (10-20) Glucose 99 (70-99) mg/dl Calcium 8.0 L (8.5-10.1) mg/dl Total Bilirubin 0.7 (0.2-1) mg/dl AST 15 (15-37) U/L ALT 11 L (12-78) U/L Alkaline Phosphatase 40 L (45-117) U/L Total Protein 6.2 L (6.4-8.2) gm/dl Albumin 2.7 L (3.4-5.0) gm/dl Globulin 3.5 (2.5-4.0) gm/dl Albumin/Globulin Ratio 0.8 L (0.9-2) PG Care Time/CCT Total # of Minutes Spent Total Time Spent with Patient: Total time spent is greater than 50% in coordination of care (as documented) at patient's floor/unit and/or counseling patient: Coding Level of Care Code 68619 Subseq Hosp Care Lvl 3 Diagnoses GI bleed K92.2 GI bleed type/associated pathology: unspecified gastrointestinal hemorrhage type Acute on chronic diastolic (congestive) heart failure I50.33 Permanent atrial fibrillation I48.2 Anemia D64.9 Anemia type: unspecified type Chronic kidney disease (CKD) N18.31 Chronic kidney disease stage: stage 3 (moderate) Chronic kidney disease stage 3 subtype: stage 3a (GFR 45-59) COPD (chronic obstructive pulmonary disease) J44.1 COPD type: COPD with acute exacerbation Hyperlipidemia E78.5 Hyperlipidemia type: unspecified Hypertension I10 Hypertension type: essential hypertension On home oxygen therapy Z99.81 Morbid obesity with BMI of 50.0-59.9, adult E66.01; Z68.43 Acute blood loss anemia D62 Chronic respiratory failure with hypoxia and hypercapnia J96.11; J96.12 (1) GI bleed GI bleed type/associated pathology: unspecified gastrointestinal hemorrhage type Qualified Code(s): K92.2 - Gastrointestinal hemorrhage, unspecified (2) Anemia Anemia type: unspecified type Qualified Code(s): D64.9 - Anemia, unspecified (3) Hyperlipidemia Hyperlipidemia type: unspecified Qualified Code(s): E78.5 - Hyperlipidemia, unspecified (4) Chronic kidney disease (CKD) Chronic kidney disease stage: stage 3 (moderate) Chronic kidney disease stage 3 subtype: stage 3a (GFR 45-59) Qualified Code(s): N18.31 - Chronic kidney disease, stage 3a (5) COPD (chronic obstructive pulmonary disease) COPD type: COPD with acute exacerbation Qualified Code(s): J44.1 - Chronic obstructive pulmonary disease with (acute) exacerbation (6) Hypertension Hypertension type: essential hypertension Qualified Code(s): I10 - Essential (primary) hypertension
[2020-08-20] MEDS: ACETAMINOPHEN 325 MG TAB PO PRN ×2 (10:53→20:53)
[2020-08-20] MEDS: BUMETANIDE 3 MG in SYRINGE 0 ML IV SCH (17:18)
[2020-08-20] MEDS: DOCUSATE SODIUM 100 MG CAP PO SCH (20:54)
[2020-08-20] MEDS: ATORVASTATIN 40 MG TAB PO SCH (20:54)
[2020-08-20] MEDS: TRIAMCINOLONE ACET NASAL SPRAY 10.8ML BTL SCH (20:55)
--- NOTE | 2020-08-20 22:30 | Communication Note ---
Date of Service: August 20, 2020 Notified by nursing that patient was having a fever 38.7C which reduced to 38.5C after 650mg tylenol. Evaluated patient at bedside. Other than feeling tired, patient noted he was feeling fine. No chest pain, pressure, SOB, abdominal pain, tenderness of his upper or lower extremities, headache. Repeat temperature check showed a temp of 37.6C. Plan: -At this time without obvious source of infection will continue to monitor -If fever again later this night, consider UA, blood cultures -Will continue to follow throughout the night. Resident Activity Tracking Resident Involvement: Resident Care Provided Care Provided: Adult [facility] Medicine
[2020-08-21] MEDS: ACETAMINOPHEN 325 MG TAB PO PRN ×3 (06:37→21:06)
[2020-08-21] MEDS: ALBUT/IPRATROP 3MG/0.5MG NEB 3 ML VIAL INH SCH ×2 (07:22→19:39)
[2020-08-21 07:30] LABS: Hematocrit (blood only) 31.4 % (42-52); Hemoglobin 9.1 g/dL (14.0-18.0); Mean Corpuscular Hemoglobin 27.4 pg (25-34); Mean Corpuscular Volume 94.6 fL (80-100); Mean Platelet Volume 9.9 fL (7.4-10.4); Platelet Count 215 K/uL (130-400); RDW Coefficient of Variation 16.9 % (11.5-14.5); RDW Standard Deviation 57.9 fL (36.4-46.3); Red Blood Count 3.32 M/uL (4.7-6.1); White Blood Count 8.76 K/uL (4.8-10.8)
--- NOTE | 2020-08-21 07:44 | Hospitalist Progress Note ---
Date of Service August 21, 2020 Assessment & Plan (1) GI bleed: Unspecified source, presumed lower but did have melena noted as well. Along with acute on chronic CHF exacerbation. (Weight 146.6kg on admission from 120s more dry weight, currently 139.3kg this AM) * WAS taking aleve 2 pills twice daily for at least 1 year -- educated on avoidance of NSAIDs and to use tylenol as needed for pain. Has been controlling his shoulder pain * On Eliquis and had been using Naproxen as he had not been told to avoid per his account (holding currently) * Transfused 4u PRBC * Iron studies on admission with low iron 30 (prior IV iron req HD) and ordered PO supplementation -- would continue at d/c for 2-3 months and have repeat labs now that he will no longer be on Aleve and is instructed to avoid NSAIDs in general * GI consulted POD#3 s/p EGD/c-scope with Dr. Sandhu * EGD: Multiple recently bleeding angioectasias in the stomach. Treated with argon plasma coagulation (APC). 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 * C-scope: non bleeding internal hemorrhoids * Placed back on Protonix 40mg PO BID and to be continued at discharge 08/21 Hgb 9.1 Did have temp of 38.7C last evening -- discussed with overnight resident chain sales consultant regarding patient condition. stable but with some erythema to b/l LE (chronic, non-tender). Stated he felt well at that time Obtained CXR: no change Blood cultures obtained Currently 37.2C Of note, patient was very cold yesterday and had multiple warm blankets after administration of diamox --? medication reaction Lactic wnl. Procal 0.09 -- possible LE cellulitis and placed on doxy po BID. Will also obtain venous dopplers to r/o DVT given eliquis on hold Continue to monitor (2) Acute on chronic diastolic (congestive) heart failure: * ECHO 08/28/18 with EF 60-65%. Most recent 02/17/20 with hyperdynamic LV, no wnl. mild LVH. Of note, had been in volume overload state at that time * Wt on admission 146.6kg * Dry weight closer to 120kg * CHF referral --> will need close f/u outpatient * Discussed with patient about monitoring daily weights at home. and patient report they had been doing that up until past couple of months when weight gain became issue. * TO WATCH FLUID INTAKE AND BE MINDFUL AT D/C TO LIMIT INTAKE, MORE ICE IF NEEDED * Discussed at length sodium and fluid restriction with patient and at bedside and to keep dietary journal for sodium as well as log of daily weights to get better control on chronic issue * Atenolol 100 mg twice daily resumed on 08/19 blood pressures have tolerated * Switched lasix 120mg PO BID to Bumex 2mg IV BID --> Increased to bumex 3mg IV BID currently 08/17- : Wt 141kg. Output 4L, net negative 2.3L. Of note he did get a dose of Diamox 08/18-: Wt 139.2kg. Additional 3.2L output, net -1.5L. Continued bumex 2mg IV BID 08/19-08/20: 139.3kg -- output 1.9L, net -1.2L. Increased bumex to 3mg IV BID for now. (outpt lasix 120bid = 2mg bumex bid) * Attempted dose of Diamox today as was done on 08/17 with good success however patient developed shaking which has resolved and will avoid repeat dose of this in the future 08/20-08/21: Nursing to obtain standing scale weight later today. Output 2.7L, net -1.7L thus far. Continued bumex 3mg IV BID (3) Permanent atrial fibrillation: * As above * Atenolol 100mg PO BID resumed, rates improved, currently 80-90s * Eliquis as above,cardiology reviewing need for continued vs atrial appendage occ. 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 Nephro consulted, signed off. 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 --> Patient to be good candidate for watchman device as alternative and ref could be arranged in outpatient setting if unable to resume. * SCDs * Obtaining Venous Dopplers to r/o DVT as above give eliquis on hold Dispo: continued inpatient stay for diuresis PT/OT consultations placed (10) Morbid obesity with BMI of 50.0-59.9, adult: (11) Acute blood loss anemia: (12) Chronic respiratory failure with hypoxia and hypercapnia: (13) Fever: (14) Cellulitis: Admission and Anticipated Discharge Date Admission Date: August 16, 2020 Subjective Patient evaluated this morning. Feeling ok. Little tired this morning. Noted fever last evening -- Mr Anderson states he did not feel warm, chills, chest pain, shortness of breath above baseline, abdominal pain or other issues at that time or currently. Does not feel tight in his chest or increased wheezing. Declines feeling need for any type of nebulizers at this time. No cough or sputum production noted. Tolerating increased dose of bumex. HR improved. Discussed erythema to b/l legs and will cover for possible soft tissue/cellulitis. Agreeable to plan. Going to work with PT/OT today. Review of Systems Review of Systems: All systems reviewed & are unremarkable except as noted in HPI & below Physical Exam Physical Exam: General: awake, alert, no apparent distress, well nourished, well developed. morbidly obese. laying in bed sleeping upon arrival but easily awoken Head: Normocephalic, atraumatic ENT: PERRL, EOMI, no pharyngeal exudate, mucous membranes moist Neuro: AAO x 3, euthymic. speech clear and appropriate, strength intact bilaterally, sensation intact and equal all extremities and dermatomes, no pronator drift Resp: equal rise and fall of the chest, no accessory muscle use, no heaves or thrills, diminished BS in bases. +Wheezing throughout (decreased). Bibasilar crackles 92%on 4L NC Cardiac: irregularly irregular 98bpm, cap refill <3 seconds. 2-3+ pitting edema bilaterally up to thighs. NVI. pulses palpable. multiple excoriations to b/l LE noted with mild erythema L>R GI: NABS x 4 quadrants, soft, distended, nontender to palpation, no rebound, guarding or tenderness : Menendez with yellow urine draining Extremities: chronic venous insufficiency to bilateral lower extremities, mild erythema, calfs nontender to palpation Psych: Normal mood and affect Results & Data Results & Data ([facility]) Vital Signs (Past 12 Hours) Vital Signs Temp Pulse Pulse Resp BP BP Pulse Ox 08/21/20 07:23 105 H 18 96 08/21/20 06:56 37.2 C 92 H 20 98/58 L 97 08/21/20 03:32 37.3 C 95 H 20 95/71 L 97 08/20/20 23:21 37.8 C H 105 H 16 91/50 L 92 08/20/20 22:39 106 H 16 91 08/20/20 22:21 37.6 C H 08/20/20 21:46 38.5 C H Laboratory Results 08/21/20 08/21/20 08/21/20 Range/Units 07:17 07:17 07:17 WBC 8.76 (4.8-10.8) K/uL RBC 3.32 L (4.7-6.1) M/uL Hgb 9.1 L (14.0-18.0) g/dL Hct 31.4 L (42-52) % MCV 94.6 (80-100) fL MCH 27.4 (25-34) pg MCHC 29.0 L (32-36) g/dL RDW Std Deviation 57.9 H (36.4-46.3) fL RDW Coeff of Ezekiel 16.9 H (11.5-14.5) % Plt Count 215 (130-400) K/uL MPV 9.9 (7.4-10.4) fL Sodium 141 (136-145) mmol/L Potassium 3.8 (3.5-5.1) mmol/L Chloride 103 (98-107) mmol/L Carbon Dioxide 35 H (21-32) mmol/L Anion Gap 3.0 (3-11) BUN 15 (7-18) mg/dl Creatinine 1.04 (0.6-1.4) mg/dl Est Cr Clr Drug Dosing 83.7 ml/min Est GFR ( Amer) 82.2 ml/min Est GFR (Non-Af Amer) 70.9 ml/min BUN/Creatinine Ratio 14.3 (10-20) Glucose 106 H (70-99) mg/dl Lactate (0.4-2.0) mmol/L Calcium 8.4 L (8.5-10.1) mg/dl Vitamin B1 Pending Procalcitonin (0-0.5) ng/ml 08/21/20 08/21/20 Range/Units 00:19 00:19 WBC (4.8-10.8) K/uL RBC (4.7-6.1) M/uL Hgb (14.0-18.0) g/dL Hct (42-52) % MCV (80-100) fL MCH (25-34) pg MCHC (32-36) g/dL RDW Std Deviation (36.4-46.3) fL RDW Coeff of Ezekiel (11.5-14.5) % Plt Count (130-400) K/uL MPV (7.4-10.4) fL Sodium (136-145) mmol/L Potassium (3.5-5.1) mmol/L Chloride (98-107) mmol/L Carbon Dioxide (21-32) mmol/L Anion Gap (3-11) BUN (7-18) mg/dl Creatinine (0.6-1.4) mg/dl Est Cr Clr Drug Dosing ml/min Est GFR ( Amer) ml/min Est GFR (Non-Af Amer) ml/min BUN/Creatinine Ratio (10-20) Glucose (70-99) mg/dl Lactate 0.9 (0.4-2.0) mmol/L Calcium (8.5-10.1) mg/dl Vitamin B1 Procalcitonin 0.09 (0-0.5) ng/ml Diagnostic Findings Chest X-Ray 08/20/20 23:41 XR chest 1V portable HISTORY: Fever. Congestive heart failure. COMPARISON: Chest 08/16/2020. FINDINGS: No change in the mild interstitial pulmonary edema, cardiomegaly, and small bilateral pleural effusions. No new focal lung consolidations identified. There is a right shoulder prosthesis. No pneumothorax. IMPRESSION: No change in the mild pulmonary edema and trace bilateral pleural effusions. ACT 112: Negative or not required by law. Electronically signed by: Sudeep Wolff M.D. 08/21/2020 9:04 AM PG Care Time/CCT Total # of Minutes Spent Total Time Spent with Patient: Total time spent is greater than 50% in coordination of care (as documented) at patient's floor/unit and/or counseling patient: Coding Level of Care Code 94599 Subseq Hosp Care Lvl 3 Diagnoses GI bleed K92.2 GI bleed type/associated pathology: unspecified gastrointestinal hemorrhage type Acute on chronic diastolic (congestive) heart failure I50.33 Permanent atrial fibrillation I48.2 Anemia D64.9 Anemia type: unspecified type Chronic kidney disease (CKD) N18.31 Chronic kidney disease stage: stage 3 (moderate) Chronic kidney disease stage 3 subtype: stage 3a (GFR 45-59) COPD (chronic obstructive pulmonary disease) J44.1 COPD type: COPD with acute exacerbation Hyperlipidemia E78.5 Hyperlipidemia type: unspecified Hypertension I10 Hypertension type: essential hypertension On home oxygen therapy Z99.81 Morbid obesity with BMI of 50.0-59.9, adult E66.01; Z68.43 Acute blood loss anemia D62 Chronic respiratory failure with hypoxia and hypercapnia J96.11; J96.12 Fever R50.9 Cellulitis L03.90 (1) GI bleed GI bleed type/associated pathology: unspecified gastrointestinal hemorrhage type Qualified Code(s): K92.2 - Gastrointestinal hemorrhage, unspecified (2) Anemia Anemia type: unspecified type Qualified Code(s): D64.9 - Anemia, unspecified (3) Hyperlipidemia Hyperlipidemia type: unspecified Qualified Code(s): E78.5 - Hyperlipidemia, unspecified (4) Chronic kidney disease (CKD) Chronic kidney disease stage: stage 3 (moderate) Chronic kidney disease stage 3 subtype: stage 3a (GFR 45-59) Qualified Code(s): N18.31 - Chronic kidney disease, stage 3a (5) COPD (chronic obstructive pulmonary disease) COPD type: COPD with acute exacerbation Qualified Code(s): J44.1 - Chronic obstructive pulmonary disease with (acute) exacerbation (6) Hypertension Hypertension type: essential hypertension Qualified Code(s): I10 - Essential (primary) hypertension
[2020-08-21 07:59] LABS: BUN Creatinine Ratio 14.3 (10-20); Calcium 8.4 mg/dl (8.5-10.1); Creatinine Clr Calc Pharmacy 83.7 ml/min; Est GFR (African American) 82.2 ml/min; Est GFR (Non-African American) 70.9 ml/min; Potassium 3.8 mmol/L (3.5-5.1)
[2020-08-21] MEDS: POTASSIUM CHLORIDE CRTAB 20 MEQ TABCR PO SCH ×2 (08:38→21:07)
[2020-08-21] MEDS: DOCUSATE SODIUM 100 MG CAP PO SCH ×2 (08:38→21:07)
[2020-08-21] MEDS: ATENOLOL 50 MG TABLET PO SCH ×2 (08:38→21:07)
[2020-08-21] MEDS: BUMETANIDE 3 MG in SYRINGE 0 ML IV SCH ×2 (08:38→16:22)
[2020-08-21] MEDS: PANTOprazole 40 MG TAB PO SCH ×2 (08:38→21:07)
[2020-08-21] MEDS: UMECLIDINIUM/VILANTEROL 62.5/25MCG 7 PUFFS/INHALER INH SCH (08:39)
[2020-08-21] MEDS: VITAMIN B COMPLEX TAB PO SCH (08:39)
[2020-08-21] MEDS: FERROUS SULFATE 325 MG TAB PO SCH (08:39)
[2020-08-21] MEDS: FLUTICASONE FUROATE 100MCG 14 PUFFS/INHALER INH SCH (08:39)
[2020-08-21] MEDS: POLYETHYLENE (MIRALAX) 17 GM PACK PO SCH (08:39)
--- NOTE | 2020-08-21 09:05 | XRay Report ---
XR chest 1V portable HISTORY: Fever. Congestive heart failure. COMPARISON: Chest 08/16/2020. FINDINGS: No change in the mild interstitial pulmonary edema, cardiomegaly, and small bilateral pleur al effusions. No new focal lung consolidations identified. There is a right shoulder prosthesis. No p neumothorax. IMPRESSION: No change in the mild pulmonary edema and trace bilateral pleural effusions. ACT 112: Negative or not required by law. Electronically signed by: Sudeep Wolff M.D. 08/21/2020 9:04 AM
--- NOTE | 2020-08-21 13:47 | Ultrasound Report ---
BILATERAL LOWER EXTREMITY VENOUS DOPPLER HISTORY: Bilateral leg swelling. r/o DVT COMPARISON STUDY: None. FINDINGS: There is normal compressibility, flow, and augmentation within the bilateral lower extremit y deep venous systems. IMPRESSION: No DVT within the right or left lower extremity. ACT 112: Negative or not required by law. Electronically signed by: Sudeep Wolff M.D. 08/21/2020 1:46 PM
[2020-08-21] MEDS: DOXYCYCLINE HYCLATE 100 MG CAP PO SCH (18:25)
[2020-08-21] MEDS: MELATONIN 3 MG TAB PO PRN (21:06)
[2020-08-21] MEDS: TRIAMCINOLONE ACET NASAL SPRAY 10.8ML BTL SCH (21:07)
[2020-08-21] MEDS: ATORVASTATIN 40 MG TAB PO SCH (21:07)
[2020-08-22] MEDS: ALBUT/IPRATROP 3MG/0.5MG NEB 3 ML VIAL INH SCH ×2 (07:20→19:13)
[2020-08-22 07:45] LABS: BUN Creatinine Ratio 18.1 (10-20); Calcium 8.7 mg/dl (8.5-10.1); Creatinine Clr Calc Pharmacy 93.2 ml/min; Est GFR (African American) 94.1 ml/min; Est GFR (Non-African American) 81.2 ml/min; Potassium 4.2 mmol/L (3.5-5.1)
[2020-08-22] MEDS: DOXYCYCLINE HYCLATE 100 MG CAP PO SCH ×2 (07:48→20:35)
[2020-08-22 08:10] LABS: Basophils # (auto) 0.02 K/uL (0-0.2); Basophils % (auto) 0.3 %; Eosinophils # (auto) 0.31 K/uL (0-0.5); Eosinophils % (auto) 4.5 %; Hematocrit (blood only) 31.6 % (42-52); Hemoglobin 9.1 g/dL (14.0-18.0); Immature Granulocytes # (auto) 0.01 K/uL (0.00-0.02); Immature Granulocytes % (auto) 0.1 %; Lymphocytes # (auto) 0.54 K/uL (1.2-3.4); Lymphocytes % (auto) 7.9 %; Mean Corpuscular Hemoglobin 27.4 pg (25-34); Mean Corpuscular Hgb Conc 28.8 g/dL (32-36); Mean Corpuscular Volume 95.2 fL (80-100); Mean Platelet Volume 10.2 fL (7.4-10.4); Monocytes # (auto) 0.75 K/uL (0.11-0.59); Monocytes % (auto) 10.9 %; Neutrophils # (auto) 5.23 K/uL (1.4-6.5); Neutrophils % (auto) 76.3 %; Platelet Count 223 K/uL (130-400); RDW Coefficient of Variation 16.6 % (11.5-14.5); Red Blood Count 3.32 M/uL (4.7-6.1); White Blood Count 6.86 K/uL (4.8-10.8)
[2020-08-22] MEDS: VITAMIN B COMPLEX TAB PO SCH (08:17)
[2020-08-22] MEDS: ATENOLOL 50 MG TABLET PO SCH ×2 (08:17→20:37)
[2020-08-22] MEDS: FERROUS SULFATE 325 MG TAB PO SCH (08:17)
[2020-08-22] MEDS: PANTOprazole 40 MG TAB PO SCH ×2 (08:17→20:36)
[2020-08-22] MEDS: DOCUSATE SODIUM 100 MG CAP PO SCH ×2 (08:17→20:36)
[2020-08-22] MEDS: BUMETANIDE 3 MG in SYRINGE 0 ML IV SCH ×2 (08:17→18:06)
[2020-08-22] MEDS: POTASSIUM CHLORIDE CRTAB 20 MEQ TABCR PO SCH ×2 (08:17→20:37)
[2020-08-22] MEDS: POLYETHYLENE (MIRALAX) 17 GM PACK PO SCH (08:18)
[2020-08-22] MEDS: UMECLIDINIUM/VILANTEROL 62.5/25MCG 7 PUFFS/INHALER INH SCH (08:18)
[2020-08-22] MEDS: FLUTICASONE FUROATE 100MCG 14 PUFFS/INHALER INH SCH (08:18)
[2020-08-22] MEDS: ACETAMINOPHEN 325 MG TAB PO PRN (10:15)
--- NOTE | 2020-08-22 14:42 | Hospitalist Progress Note ---
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 (Weight 146.6kg on admission from 120s more dry weight, currently 139.3kg this AM) * WAS taking aleve 2 pills twice daily for at least 1 year -- educated on avoidance of NSAIDs and to use tylenol as needed for pain. Has been controlling his shoulder pain * On Eliquis and had been using Naproxen as he had not been told to avoid per his account (holding currently) * Transfused 4u PRBC * Iron studies on admission with low iron 30 (prior IV iron req HD) and ordered PO supplementation -- would continue at d/c for 2-3 months and have repeat labs now that he will no longer be on Aleve and is instructed to avoid NSAIDs in general POD#4 s/p EGD/c-scope with Dr. Sandhu * EGD: Multiple recently bleeding angioectasias in the stomach. Treated with argon plasma coagulation (APC). 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 * C-scope: non bleeding internal hemorrhoids * Placed back on Protonix 40mg PO BID and to be continued at discharge (2) Acute on chronic diastolic (congestive) heart failure: * ECHO 08/28/18 with EF 60-65%. Most recent 02/17/20 with hyperdynamic LV, no wnl. mild LVH. Of note, had been in volume overload state at that time * Wt on admission 146.6kg * Dry weight closer to 120kg * Appreciate heart failure progress note -discussed with Sara Kahn and will need further IV diuresis prior to discharge * Atenolol 100 mg twice daily resumed on 08/19 blood pressures have tolerated * Switched lasix 120mg PO BID to Bumex 2mg IV BID --> Increased to bumex 3mg IV BID currently (3) Permanent atrial fibrillation: * As above * Atenolol 100mg PO BID resumed, rates improved, currently 80-90s * Eliquis as above,cardiology reviewing need for continued vs atrial appendage occ. 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 Nephro consulted, signed off. 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 --> Patient to be good candidate for watchman device as alternative and ref could be arranged in outpatient setting if unable to resume. * SCDs * Obtaining Venous Dopplers to r/o DVT as above give eliquis on hold Dispo: continued inpatient stay for diuresis PT/OT consultations placed (10) Morbid obesity with BMI of 50.0-59.9, adult: (11) Acute blood loss anemia: (12) Chronic respiratory failure with hypoxia and hypercapnia: Admission and Anticipated Discharge Date Admission Date: August 16, 2020 Subjective Patient reports at baseline oxygen saturation. Not yet back to baseline shortness of breath or weight. No further fevers or chills. Ultrasound venous Doppler negative for right DVT. He reports that his right leg is still larger than the left. No worsening erythema on his legs. No chest pain. Review of Systems Review of Systems: All systems reviewed & are unremarkable except as noted in HPI & below Physical Exam Constitutional: WD/WN, vitals as above + morbidly obese Eyes: + anicteric sclerae; normal pupil size Neck: trachea midline Respiratory: normal respiratory effort, lungs clear to auscultation Auscultation: + diminished lung sounds (Mild at bases only) Cardiovascular: Rate/Rhythm: + tachycardic Heart Sounds: no murmur Extremities: normal capillary refill, + calf tenderness (Bilateral) and + pedal edema (3+ R > L pitting) Gastrointestinal (Abdomen): normal bowel sounds, soft, nontender, no hepatosplenomegaly Inspection/Auscultation: + abdomen distended Musculoskeletal: no cyanosis or clubbing, extremities motor strength 5/5 Skin: + erythema (B/l venous stasis LE not extending below ankle or above knee) Neurologic: moves all extremities and awake; not confused Psychiatric: A+Ox3, euthymic affect Results & Data Results & Data ([facility]) Vital Signs (Past 12 Hours) Vital Signs Temp Pulse Pulse Resp BP BP Pulse Ox 08/22/20 11:35 37.0 C 113 H 22 118/66 96 08/22/20 10:24 95 08/22/20 08:00 93 H 08/22/20 07:20 85 18 97 08/22/20 07:16 36.6 C 108 H 22 106/60 96 08/22/20 04:04 36.5 C 99 H 25 H 138/84 95 PG Care Time/CCT Total # of Minutes Spent Total Time Spent with Patient: Total time spent is greater than 50% in coordination of care (as documented) at patient's floor/unit and/or counseling patient: Coding Level of Care Code 86885 Subseq Hosp Care Lvl 2 Diagnoses GI bleed K92.2 GI bleed type/associated pathology: unspecified gastrointestinal hemorrhage type Acute on chronic diastolic (congestive) heart failure I50.33 Permanent atrial fibrillation I48.2 Anemia D64.9 Anemia type: unspecified type Chronic kidney disease (CKD) N18.31 Chronic kidney disease stage: stage 3 (moderate) Chronic kidney disease stage 3 subtype: stage 3a (GFR 45-59) COPD (chronic obstructive pulmonary disease) J44.1 COPD type: COPD with acute exacerbation Hyperlipidemia E78.5 Hyperlipidemia type: unspecified Hypertension I10 Hypertension type: essential hypertension On home oxygen therapy Z99.81 Morbid obesity with BMI of 50.0-59.9, adult E66.01; Z68.43 Acute blood loss anemia D62 Chronic respiratory failure with hypoxia and hypercapnia J96.11; J96.12 (1) GI bleed GI bleed type/associated pathology: unspecified gastrointestinal hemorrhage type Qualified Code(s): K92.2 - Gastrointestinal hemorrhage, unspecified (2) Anemia Anemia type: unspecified type Qualified Code(s): D64.9 - Anemia, unspecified (3) Hyperlipidemia Hyperlipidemia type: unspecified Qualified Code(s): E78.5 - Hyperlipidemia, unspecified (4) Chronic kidney disease (CKD) Chronic kidney disease stage: stage 3 (moderate) Chronic kidney disease stage 3 subtype: stage 3a (GFR 45-59) Qualified Code(s): N18.31 - Chronic kidney disease, stage 3a (5) COPD (chronic obstructive pulmonary disease) COPD type: COPD with acute exacerbation Qualified Code(s): J44.1 - Chronic obstructive pulmonary disease with (acute) exacerbation (6) Hypertension Hypertension type: essential hypertension Qualified Code(s): I10 - Essential (primary) hypertension
--- NOTE | 2020-08-22 16:45 | Heart Failure Progress Note ---
Date of Service August 22, 2020 Assessment & Plan (1) Acute on chronic diastolic (congestive) heart failure: (2) Morbid obesity with BMI of 50.0-59.9, adult: (3) On home oxygen therapy: (4) Chronic kidney disease (CKD): (5) COPD (chronic obstructive pulmonary disease): Acute on chronic diastolic congestive heart failure: Currently Class III symptoms. He remains significantly hypervolemic on his exam. Continue aggressive diuresis while inpatient, Bumex 3 mg IV BID with a goal loss of 1-2 L per day. Continue to closely monitor kidney function and electrolytes. Would have a low threshold to increase to 4mg if needed - for now he seems to be doing well on 3 mg with appropriate output. Anticipate 2 mg PO BID on discharge. Tachycardia may be contributing factor as well, recommend optimization of rate once BP stabilizes. Low sodium diet, less than 2,000 mg daily. Could consider inpatient dietary consult for education. Strict I&Os during admission. Daily STANDING weights each morning. Anemia: As per GI and primary service. For colonoscopy/EGD today. Atrial fibrillation. Recommend improved rate control. Plan to resume Atenolol once BP adequate. Plan for anticoagulation pending results of procedures. Discussed the nature of heart failure and the goals of the program. Patient has been referred in the past but has been resistant to follow up. I think participation would offer significant benefits to him including decrease his risk of hospitalization. He is somewhat agreeable to this. Will arrange for ongoing outpatient follow up at discharge. Will continue to follow during hospitalization. Disposition: Follow up with the heart failure program within 7 days of discharge. Follow up with Dr. Luna as scheduled 09/12/20. Admission and Anticipated Discharge Date Admission Date: August 16, 2020 Subjective Patient reports he's feeling about the same. He seems more fatigued today but did not sleep well last night. Denies worsening shortness of breath or edema. Remains on supplemental O2. Continues to diurese well- negative 10 L per admission. Weight trending down- 302 lb today. Physical Exam Physical Exam: Constitutional: Alert, oriented, in no acute distress HEENT: Head is atraumatic and normocephalic. EOMs intact. Sclera anicteric. Face is symmetric. No perioral cyanosis. Mucous membranes moist. Neck: Supple, JVD difficult to determine due to body habitus Pulmonary: Normal respiratory effort, clear to auscultation bilaterally Cardiac: Irregular rate and rhythm. Normal S1 and S2, no gallops, no rubs, no murmurs Extremities: 2+ radial pulses bilaterally. 2+ posterior tibialis pulses bilaterally. 2-3+ pitting edema extending into the thighs. No cyanosis or clubbing. Abdomen: Normal bowel sounds, soft, non-tender, no abdominal mass palpated. Obese. Skin: Normal skin color, turgor, and pigmentation, no rash, no skin lesions Neurological: Patient is awake, alert, and oriented. Pleasant and cooperative. Answers questions appropriately. Speech is clear. Normal movement in all 4 extremities. Results & Data ([facility]) Vital Signs (Past 12 Hours) Vital Signs Temp Pulse Pulse Pulse Resp BP Pulse Ox 08/22/20 15:00 98.1 F 95 H 18 113/72 97 08/22/20 11:35 98.6 F 113 H 22 118/66 96 08/22/20 10:24 95 08/22/20 08:00 93 H 08/22/20 07:20 85 18 97 08/22/20 07:16 97.9 F 108 H 22 106/60 96 PG Care Time/CCT Total # of Minutes Spent Total Time Spent with Patient: Total time spent is greater than 50% in coordination of care (as documented) at patient's floor/unit and/or counseling patient: Heart Failure Data/Metrics Heart Failure Type: Diastolic Evidenced Based Beta Ivon Therapy Beta Ivon Therapy: Not Indicated SILVIA/ARB/ARNI Therapy SILVIA/ARB/ARNI Therapy: Not Indicated Aldosterone Antagonist Therapy Aldosterone Antagonist Therapy: Not Indicated Coding Level of Care Code 79388 Subseq Hosp Care Lvl 3 Diagnoses Acute on chronic diastolic (congestive) heart failure I50.33 Morbid obesity with BMI of 50.0-59.9, adult E66.01; Z68.43 On home oxygen therapy Z99.81 Chronic kidney disease (CKD) N18.31 Chronic kidney disease stage: stage 3 (moderate) Chronic kidney disease stage 3 subtype: stage 3a (GFR 45-59) COPD (chronic obstructive pulmonary disease) J44.1 COPD type: COPD with acute exacerbation (1) Chronic kidney disease (CKD) Chronic kidney disease stage: stage 3 (moderate) Chronic kidney disease stage 3 subtype: stage 3a (GFR 45-59) Qualified Code(s): N18.31 - Chronic kidney disease, stage 3a (2) COPD (chronic obstructive pulmonary disease) COPD type: COPD with acute exacerbation Qualified Code(s): J44.1 - Chronic obstructive pulmonary disease with (acute) exacerbation
[2020-08-22] MEDS: ATORVASTATIN 40 MG TAB PO SCH (20:35)
[2020-08-22] MEDS: TRIAMCINOLONE ACET NASAL SPRAY 10.8ML BTL SCH (20:36)
[2020-08-23] MEDS: DOXYCYCLINE HYCLATE 100 MG CAP PO SCH ×2 (05:57→18:04)
[2020-08-23] MEDS: ACETAMINOPHEN 325 MG TAB PO PRN ×2 (06:26→14:09)
[2020-08-23] MEDS: ALBUT/IPRATROP 3MG/0.5MG NEB 3 ML VIAL INH SCH (07:36)
[2020-08-23] MEDS: POTASSIUM CHLORIDE CRTAB 20 MEQ TABCR PO SCH ×2 (08:23→21:27)
[2020-08-23] MEDS: FERROUS SULFATE 325 MG TAB PO SCH (08:23)
[2020-08-23] MEDS: ATENOLOL 50 MG TABLET PO SCH (08:23)
[2020-08-23] MEDS: VITAMIN B COMPLEX TAB PO SCH (08:24)
[2020-08-23] MEDS: FLUTICASONE FUROATE 100MCG 14 PUFFS/INHALER INH SCH (08:24)
[2020-08-23] MEDS: PANTOprazole 40 MG TAB PO SCH ×2 (08:24→21:27)
[2020-08-23] MEDS: UMECLIDINIUM/VILANTEROL 62.5/25MCG 7 PUFFS/INHALER INH SCH (08:24)
[2020-08-23] MEDS: POLYETHYLENE (MIRALAX) 17 GM PACK PO SCH (08:25)
[2020-08-23] MEDS: DOCUSATE SODIUM 100 MG CAP PO SCH ×2 (08:25→21:26)
[2020-08-23] MEDS: BUMETANIDE 3 MG in SYRINGE 0 ML IV SCH ×2 (08:25→18:04)
--- NOTE | 2020-08-23 14:36 | Heart Failure Progress Note ---
Date of Service August 23, 2020 Assessment & Plan (1) Acute on chronic diastolic (congestive) heart failure: (2) Morbid obesity with BMI of 50.0-59.9, adult: (3) On home oxygen therapy: (4) Chronic kidney disease (CKD): (5) COPD (chronic obstructive pulmonary disease): Acute on chronic diastolic congestive heart failure: Currently Class III symptoms. He remains significantly hypervolemic on his exam. Continue aggressive diuresis while inpatient, Bumex 3 mg IV BID with a goal loss of 1-2 L per day. Continue to closely monitor kidney function and electrolytes. No labs drawn today. Trend BNP tomorrow. Would have a low threshold to increase to 4 mg if needed. Could also consider the addition of Diuril. Anticipate 4 mg PO BID on discharge as he will likely need continued diuresis as outpatient. Tachycardia may be contributing factor as well, recommend optimization of rate once BP st abilizes (Metoprolol added today). Low sodium diet, less than 2,000 mg daily. Could consider inpatient dietary consult for education. Strict I&Os during admission. Daily STANDING weights each morning. Anemia: As per GI and primary service. Atrial fibrillation. Recommend improved rate control. Metoprolol succinate added by primary service to begin tonight. Plan for anticoagulation pending results of procedures- Jennifer on hold. Discussed the nature of heart failure and the goals of the program. Patient has been referred in the past but has been resistant to follow up. I think participation would offer significant benefits to him including decrease his risk of hospitalization. He is somewhat agreeable to this. Will arrange for ongoing outpatient follow up at discharge. Will continue to follow during hospitalization. Disposition: Follow up with the heart failure program within 7 days of discharge. Follow up with Dr. Luna as scheduled 09/12/20. Admission and Anticipated Discharge Date Admission Date: August 16, 2020 Subjective Patient reports he's feeling about the same. He seems more fatigued today but did not sleep well last night. He's pretty lethargic this morning, having difficulty staying awake for conversation. Denies worsening shortness of breath or edema. Remains on supplemental O2. Continues to diurese well- negative 10 L per admission. Weight trending down- 302 lb today. However not seeing much improvement clinically. Physical Exam Physical Exam: Constitutional: Alert, oriented, in no acute distress. Obese. HEENT: Head is atraumatic and normocephalic. EOMs intact. Sclera anicteric. Face is symmetric. No perioral cyanosis. Mucous membranes moist. Neck: Supple, JVD difficult to determine due to body habitus Pulmonary: Normal respiratory effort, clear to auscultation bilaterally Cardiac: Irregular rate and rhythm. Normal S1 and S2, no gallops, no rubs, no murmurs Extremities: 2+ radial pulses bilaterally. 2+ posterior tibialis pulses bila terally. 2-3+ pitting edema extending into the thighs. No cyanosis or clubbing. Abdomen: Normal bowel sounds, soft, non-tender, no abdominal mass palpated. Obese. Skin: Normal skin color, turgor, venous stasis changes. Neurological: Patient is awake, alert, and oriented. Pleasant and cooperative. Answers questions appropriately, but falls asleep. Results & Data ([facility]) Vital Signs (Past 12 Hours) Vital Signs Temp Pulse Pulse Pulse Resp BP Pulse Ox 08/23/20 11:10 98.2 F 101 H 18 95/67 L 95 08/23/20 08:03 97.9 F 104 H 20 96/63 L 94 08/23/20 08:00 114 H 08/23/20 07:36 93 H 18 98 08/23/20 03:00 97.9 F 116 H 19 97/58 L 93 PG Care Time/CCT Total # of Minutes Spent Total Time Spent with Patient: Total time spent is greater than 50% in coordination of care (as documented) at patient's floor/unit and/or counseling patient: Heart Failure Data/Metrics Heart Failure Type: Diastolic Evidenced Based Beta Ivon Therapy Beta Ivon Therapy: Not Indicated SILVIA/ARB/ARNI Therapy SILVIA/ARB/ARNI Therapy: Not Indicated Aldosterone Antagonist Therapy Aldosterone Antagonist Therapy: Not Indicated Coding Level of Care Code 92733 Subseq Hosp Care Lvl 3 Diagnoses Acute on chronic diastolic (congestive) heart failure I50.33 Morbid obesity with BMI of 50.0-59.9, adult E66.01; Z68.43 On home oxygen therapy Z99.81 Chronic kidney disease (CKD) N18.31 Chronic kidney disease stage: stage 3 (moderate) Chronic kidney disease stage 3 subtype: stage 3a (GFR 45-59) COPD (chronic obstructive pulmonary disease) J44.1 COPD type: COPD with acute exacerbation (1) Chronic kidney disease (CKD) Chronic kidney disease stage: stage 3 (moderate) Chronic kidney disease stage 3 subtype: stage 3a (GFR 45-59) Qualified Code(s): N18.31 - Chronic kidney disease, stage 3a (2) COPD (chronic obstructive pulmonary disease) COPD type: COPD with acute exacerbation Qualified Code(s): J44.1 - Chronic obstructive pulmonary disease with (acute) exacerbation
[2020-08-23] MEDS ORDERED: ALBUT/IPRATROP 3MG/0.5MG NEB 3 ML VIAL INH PRN (14:55)
--- NOTE | 2020-08-23 20:14 | Hospitalist Progress Note ---
Date of Service August 23, 2020 Assessment & Plan (1) GI bleed: Suspected secondary to AVMs * WAS taking aleve 2 pills twice daily for at least 1 year -- educated on avoidance of NSAIDs and to use tylenol as needed for pain. Has been controlling his shoulder pain * On Eliquis and had been using Naproxen as he had not been told to avoid per his account (holding currently) - will restart Eliquis if Hgb stable on tomorrow labs * Transfused 4u PRBC * Iron studies on admission with low iron 30 (prior IV iron req HD) and ordered PO supplementation -- would continue at d/c for 2-3 months and have repeat labs now that he will no longer be on Aleve and is instructed to avoid NSAIDs in general s/p EGD/c-scope with Dr. Sandhu 08/18 * EGD: Multiple recently bleeding angioectasias in the stomach. Treated with argon plasma coagulation (APC). 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 * C-scope: non bleeding internal hemorrhoids * Placed back on Protonix 40mg PO BID and to be continued at discharge (2) Acute on chronic diastolic (congestive) heart failure: * ECHO 08/28/18 with EF 60-65%. Most recent 02/17/20 with hyperdynamic LV, no wnl. mild LVH. Of note, had been in volume overload state at that time * Wt on admission 146.6kg * Dry weight closer to 120kg * Appreciate heart failure progress note - discussed with Sara Kahn again today, BMP and BNP with AM labs, agree with continued diuretics * Atenolol held this morning due to hypotension will switch to Metoprolol succinate 100mg PO BID and uptitrate as able. 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 Nephro consulted, signed off. * Cr improving with diuresis -- Cr stable * Lasix --> bumex as above (6) COPD (chronic obstructive pulmonary disease): * No acute needs, continue home inhalers * chronic oxygen therapy- continue 4l NC * CPAP at night (7) Hyperlipidemia: * Continue Atorvastatin (8) Hypertension: * As above- offload volume * BP tolerating diuretics and atenolol able to be resumed as above * BP currently 118/66 * Continue to monitor (9) On home oxygen therapy: * On 4L chronically * please forward d/c summary to Finn Garrison per patient request (as well as Dr Mijares) GERD/Barretts * On omeprazole 40mg PO BID MANAGER POST * Put on protonix IVP BID while NPO and changed to 40mg PO BID and to be contin ued at discharge DVT Prophylaxis * Holding Eliquis for bleeding -per cards -- would wait couple of days to ensure no bleeding. --> Patient to be good candidate for watchman device as alter ely [place] and ref could be arranged in outpatient setting if unable to resume. * SCDs * Obtaining Venous Dopplers to r/o DVT as above give eliquis on hold Dispo: continued inpatient stay for diuresis PT/OT consultations placed (10) Morbid obesity with BMI of 50.0-59.9, adult: (11) Acute blood loss anemia: (12) Chronic respiratory failure with hypoxia and hypercapnia: At baseline Admission and Anticipated Discharge Date Admission Date: August 16, 2020 Subjective Patient reports slow improvement every day. Significant diuresis with -2160 mL yesterday. No significant change in leg edema. Main ongoing complaint is back pain whenever he moves. He declines increased pain medication for this or orthopedic spine consult. No radiation down his legs. Currently has Menendez catheter in place and request this is left in for the time being as he is still finding it difficult to move to urinate due to continues leg edema. Review of Systems Review of Systems: All systems reviewed & are unremarkable except as noted in HPI & below Physical Exam Constitutional: WD/WN, vitals as above + morbidly obese Eyes: + anicteric sclerae; normal pupil size Neck: trachea midline Respiratory: normal respiratory effort, lungs clear to auscultation Auscultation: + diminished lung sounds (Mild at bases only) Cardiovascular: Rate/Rhythm: + tachycardic Heart Sounds: no murmur Extremities: normal capillary refill, + calf tenderness (Bilateral) and + pedal edema (3+ R > L pitting) Gastrointestinal (Abdomen): normal bowel sounds, soft, nontender, no hepatosplenomegaly Inspection/Auscultation: + abdomen distended Musculoskeletal: no cyanosis or clubbing, extremities motor strength 5/5 Skin: + erythema (B/l venous stasis LE not extending below ankle or above knee) Neurologic: moves all extremities and awake; not confused Psychiatric: A+Ox3, euthymic affect Results & Data Results & Data ([facility]) Vital Signs (Past 12 Hours) Vital Signs Temp Pulse Pulse Pulse Resp BP BP 08/23/20 18:37 36.6 C 108 H 20 97/59 L 08/23/20 18:03 92 H 101/67 08/23/20 15:00 36.8 C 74 18 107/70 08/23/20 14:30 103 H 08/23/20 11:10 36.8 C 101 H 18 95/67 L 08/23/20 08:03 36.6 C 104 H 20 96/63 L Pulse Ox 08/23/20 18:37 97 08/23/20 18:03 08/23/20 15:00 96 08/23/20 14:30 08/23/20 11:10 95 08/23/20 08:03 94 PG Care Time/CCT Total # of Minutes Spent Total Time Spent with Patient: Total time spent is greater than 50% in coordination of care (as documented) at patient's floor/unit and/or counseling patient: Coding Level of Care Code 87371 Subseq Hosp Care Lvl 2 Diagnoses GI bleed K92.2 GI bleed type/associated pathology: unspecified gastrointestinal hemorrhage type Acute on chronic diastolic (congestive) heart failure I50.33 Permanent atrial fibrillation I48.2 Anemia D64.9 Anemia type: unspecified type Chronic kidney disease (CKD) N18.31 Chronic kidney disease stage: stage 3 (moderate) Chronic kidney disease stage 3 subtype: stage 3a (GFR 45-59) COPD (chronic obstructive pulmonary disease) J44.1 COPD type: COPD with acute exacerbation Hyperlipidemia E78.5 Hyperlipidemia type: unspecified Hypertension I10 Hypertension type: essential hypertension On home oxygen therapy Z99.81 Morbid obesity with BMI of 50.0-59.9, adult E66.01; Z68.43 Acute blood loss anemia D62 Chronic respiratory failure with hypoxia and hypercapnia J96.11; J96.12 (1) GI bleed GI bleed type/associated pathology: unspecified gastrointestinal hemorrhage type Qualified Code(s): K92.2 - Gastrointestinal hemorrhage, unspecified (2) Anemia Anemia type: unspecified type Qualified Code(s): D64.9 - Anemia, unspecified (3) Chronic kidney disease (CKD) Chronic kidney disease stage: stage 3 (moderate) Chronic kidney disease stage 3 subtype: stage 3a (GFR 45-59) Qualified Code(s): N18.31 - Chronic kidney disease, stage 3a (4) COPD (chronic obstructive pulmonary disease) COPD type: COPD with acute exacerbation Qualified Code(s): J44.1 - Chronic obstructive pulmonary disease with (acute) exacerbation (5) Hyperlipidemia Hyperlipidemia type: unspecified Qualified Code(s): E78.5 - Hyperlipidemia, unspecified (6) Hypertension Hypertension type: essential hypertension Qualified Code(s): I10 - Essential (primary) hypertension
[2020-08-23] MEDS: ATORVASTATIN 40 MG TAB PO SCH (21:26)
[2020-08-23] MEDS: METOPROLOL SUCC 50MG EXT REL TAB PO SCH (21:27)
[2020-08-23] MEDS: TRIAMCINOLONE ACET NASAL SPRAY 10.8ML BTL SCH (21:27)
[2020-08-24 07:01] LABS: Hematocrit (blood only) 30.5 % (42-52); Mean Corpuscular Hemoglobin 27.2 pg (25-34); Mean Corpuscular Hgb Conc 29.5 g/dL (32-36); Mean Corpuscular Volume 92.1 fL (80-100); Mean Platelet Volume 9.9 fL (7.4-10.4); Platelet Count 240 K/uL (130-400); RDW Coefficient of Variation 16.3 % (11.5-14.5); RDW Standard Deviation 54.8 fL (36.4-46.3); Red Blood Count 3.31 M/uL (4.7-6.1); White Blood Count 6.63 K/uL (4.8-10.8)
[2020-08-24 07:28] LABS: Calcium 8.8 mg/dl (8.5-10.1); Creatinine Clr Calc Pharmacy 117.6 ml/min; Est GFR (African American) 106.7 ml/min; Potassium 3.8 mmol/L (3.5-5.1)
[2020-08-24] MEDS: VITAMIN B COMPLEX TAB PO SCH (08:00)
[2020-08-24] MEDS: PANTOprazole 40 MG TAB PO SCH ×2 (08:00→20:28)
[2020-08-24] MEDS: METOPROLOL SUCC 50MG EXT REL TAB PO SCH ×2 (08:00→20:27)
[2020-08-24] MEDS: FERROUS SULFATE 325 MG TAB PO SCH (08:01)
[2020-08-24] MEDS: FLUTICASONE FUROATE 100MCG 14 PUFFS/INHALER INH SCH (08:01)
[2020-08-24] MEDS: BUMETANIDE 3 MG in SYRINGE 0 ML IV SCH ×2 (08:01→17:07)
[2020-08-24] MEDS: POLYETHYLENE (MIRALAX) 17 GM PACK PO SCH (08:01)
[2020-08-24] MEDS: UMECLIDINIUM/VILANTEROL 62.5/25MCG 7 PUFFS/INHALER INH SCH (08:02)
[2020-08-24] MEDS: POTASSIUM CHLORIDE CRTAB 20 MEQ TABCR PO SCH ×2 (08:03→20:27)
[2020-08-24] MEDS: DOCUSATE SODIUM 100 MG CAP PO SCH ×2 (08:03→20:27)
[2020-08-24] MEDS: ACETAMINOPHEN 325 MG TAB PO PRN ×2 (08:07→18:40)
--- NOTE | 2020-08-24 10:51 | Heart Failure Progress Note ---
Date of Service August 24, 2020 Assessment & Plan (1) Acute on chronic diastolic (congestive) heart failure: (2) Morbid obesity with BMI of 50.0-59.9, adult: (3) On home oxygen therapy: (4) Chronic kidney disease (CKD): (5) COPD (chronic obstructive pulmonary disease): Acute on chronic diastolic congestive heart failure: Currently Class III symptoms. He remains significantly hypervolemic on his exam. Continue aggressive diuresis while inpatient, Bumex 3 mg IV BID with a goal loss of > 2 L per day. Continue to closely monitor kidney function and electrolytes. No labs drawn today. ProBNP trending down. Would have a low threshold to increase to 4 mg if needed. Could also consider the addition of Diuril. Anticipate 4 mg PO BID on discharge as he will likely need continued diuresis as outpatient. Tachycardia may be contributing factor as well, recommend optimization of rate once BP stabilizes. Metoprolol succinate started 08/23. BP adequate, remains tachycardic. Continue to titrate as able. Low sodium diet, less than 2,000 mg daily. Could consider inpatient dietary consult for education. Strict I&Os during admission. Daily STANDING weights each morning. Anemia: As per GI and primary service. Atrial fibrillation. Recommend improved rate control. Metoprolol succinate added by primary service. Continue to titrate and optimize rate. Plan for anticoagulation pending results of procedures- Jennifer on hold. Discussed the nature of heart failure and the goals of the program. Patient has been referred in the past but has been resistant to follow up. I think participation would offer significant benefits to him including decrease his risk of hospitalization. He is somewhat agreeable to this. Will arrange for ongoing outpatient follow up at discharge. Will continue to follow during hospitalization. Disposition: Follow up with the heart failure program within 7 days of d ischarge. Follow up with Dr. Luna as scheduled 09/12/20. Admission and Anticipated Discharge Date Admission Date: August 16, 2020 Subjective Patient reports he's feeling about the same. He seems more alert today today. Denies worsening shortness of breath or edema. Remains on supplemental O2. Continues to diurese well- negative 12 L per admission. Weight trending down- 297 lb today. However not seeing much improvement clinically. ProBNP trending down 2371 ----> 1625. Kidney function and electrolytes remain stable. Physical Exam Physical Exam: Constitutional: Alert, oriented, in no acute distress. Obese. HEENT: Head is atraumatic and normocephalic. EOMs intact. Sclera anicteric. Face is symmetric. No perioral cyanosis. Mucous membranes moist. Neck: Supple, JVD difficult to determine due to body habitus Pulmonary: Normal respiratory effort, scattered expiratory wheezing Cardiac: Irregular rate and rhythm. Normal S1 and S2, no gallops, no rubs, no murmurs Extremities: 2+ radial pulses bilaterally. 2+ posterior tibialis pulses bilaterally. 2-3+ pitting edema extending into the thighs. No cyanosis or clubbing. Abdomen: Normal bowel sounds, soft, non-tender, no abdominal mass palpated. Obese. Skin: Normal skin color, turgor, venous stasis changes. Neurological: Patient is awake, alert, and oriented. Pleasant and cooperative. Answers questions appropriately Results & Data ([facility]) Vital Signs (Past 12 Hours) Vital Signs Temp Pulse Pulse Resp BP Pulse Ox 08/24/20 08:23 97.7 F 110 H 22 137/73 93 08/24/20 08:00 103 H 08/24/20 04:10 97.7 F 99 H 18 99/61 L 92 08/24/20 01:08 101 H 08/23/20 23:44 98.1 F 91 H 18 103/62 91 PG Care Time/CCT Total # of Minutes Spent Total Time Spent with Patient: Total time spent is greater than 50% in coordination of care (as documented) at patient's floor/unit and/or counseling patient: Heart Failure Data/Metrics Heart Failure Type: Diastolic Evidenced Based Beta Ivon Therapy Beta Ivon Therapy: Not Indicated SILVIA/ARB/ARNI Therapy SILVIA/ARB/ARNI Therapy: Not Indicated Aldosterone Antagonist Therapy Aldosterone Antagonist Therapy: Not Indicated Coding Level of Care Code 45838 Subseq Hosp Care Lvl 3 Diagnoses Acute on chronic diastolic (congestive) heart failure I50.33 Morbid obesity with BMI of 50.0-59.9, adult E66.01; Z68.43 On home oxygen therapy Z99.81 Chronic kidney disease (CKD) N18.31 Chronic kidney disease stage: stage 3 (moderate) Chronic kidney disease stage 3 subtype: stage 3a (GFR 45-59) COPD (chronic obstructive pulmonary disease) J44.1 COPD type: COPD with acute exacerbation (1) Chronic kidney disease (CKD) Chronic kidney disease stage: stage 3 (moderate) Chronic kidney disease stage 3 subtype: stage 3a (GFR 45-59) Qualified Code(s): N18.31 - Chronic kidney disease, stage 3a (2) COPD (chronic obstructive pulmonary disease) COPD type: COPD with acute exacerbation Qualified Code(s): J44.1 - Chronic obstructive pulmonary disease with (acute) exacerbation
--- NOTE | 2020-08-24 19:37 | Hospitalist Progress Note ---
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 Has been controlling his shoulder pain * On Eliquis and had been using Naproxen as he had not been told to avoid per his account (holding currently) -restart Eliquis today * Transfused 4u PRBC * Iron studies on admission with low iron 30 (prior IV iron req HD) and ordered PO supplementation -- would continue at d/c for 2-3 months and have repeat labs now that he will no longer be on Aleve and is instructed to avoid NSAIDs in general s/p EGD/c-scope with Dr. Sandhu 08/18 * EGD: Multiple recently bleeding angioectasias in the stomach. Treated with argon plasma coagulation (APC). 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 * C-scope: non bleeding internal hemorrhoids * Placed back on Protonix 40mg PO BID and to be continued at discharge (2) Acute on chronic diastolic (congestive) heart failure: * ECHO 08/28/18 with EF 60-65%. Most recent 02/17/20 with hyperdynamic LV, no wnl. mild LVH. Of note, had been in volume overload state at that time * Wt on admission 146.6kg * Dry weight closer to 120kg * Appreciate heart failure progress note - discussed with Sara Kahn again today, BMP and BNP with AM labs, agree with continued diuretics * Increase Metoprolol succinate 200mg PO BID * Continue increased dose of Bumex 3mg IV BID (given good diuresis on this dose I don't see a reason to increase at the current time despite lack of clinical improvement) * Low Na diet, heart healthy diet, Intake restricted to 1200ml (3) Permanent atrial fibrillation: * As above * switched to metoprolol succinate 200mg PO BID to enable better rate control given hypotension on atenolol (4) Anemia: * As above-- started oral iron supp as above for iron low at 30 (5) Chronic kidney disease (CKD): * CKD 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 Nephro consulted, signed off. 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 No significant change to leg swelling or shortness of breath. No chest pain, fevers, chills. Review of Systems Review of Systems: All systems reviewed & are unremarkable except as noted in HPI & below Physical Exam Constitutional: WD/WN, vitals as above + morbidly obese Eyes: + anicteric sclerae; normal pupil size Neck: trachea midline Respiratory: normal respiratory effort, lungs clear to auscultation Auscultation: + diminished lung sounds (Mild at bases only) Cardiovascular: Rate/Rhythm: + tachycardic Heart Sounds: no murmur Extremities: normal capillary refill, + calf tenderness (Bilateral) and + pedal edema (3+ R > L pitting) Gastrointestinal (Abdomen): normal bowel sounds, soft, nontender, no hepatosplenomegaly Inspection/Auscultation: + abdomen distended Musculoskeletal: no cyanosis or clubbing, extremities motor strength 5/5 Skin: + erythema (B/l venous stasis LE not extending below ankle or above knee) Neurologic: moves all extremities and awake; not confused Psychiatric: A+Ox3, euthymic affect Results & Data Results & Data ([facility]) Vital Signs (Past 12 Hours) Vital Signs Temp Pulse Pulse Resp BP BP Pulse Ox 08/24/20 15:23 100 H 08/24/20 15:00 36.8 C 94 H 20 135/70 98 08/24/20 11:52 103 H 22 96/52 L 98 08/24/20 08:23 36.5 C 110 H 22 137/73 93 08/24/20 08:00 103 H PG Care Time/CCT Total # of Minutes Spent Total Time Spent with Patient: Total time spent is greater than 50% in coordination of care (as documented) at patient's floor/unit and/or counseling patient: Coding Level of Care Code 83936 Subseq Hosp Care Lvl 2 Diagnoses GI bleed K92.2 GI bleed type/associated pathology: unspecified gastrointestinal hemorrhage type Acute on chronic diastolic (congestive) heart failure I50.33 Permanent atrial fibrillation I48.2 Anemia D64.9 Anemia type: unspecified type Chronic kidney disease (CKD) N18.31 Chronic kidney disease stage: stage 3 (moderate) Chronic kidney disease stage 3 subtype: stage 3a (GFR 45-59) COPD (chronic obstructive pulmonary disease) J44.1 COPD type: COPD with acute exacerbation Hyperlipidemia E78.5 Hyperlipidemia type: unspecified Hypertension I10 Hypertension type: essential hypertension On home oxygen therapy Z99.81 Morbid obesity with BMI of 50.0-59.9, adult E66.01; Z68.43 Acute blood loss anemia D62 Chronic respiratory failure with hypoxia and hypercapnia J96.11; J96.12 (1) GI bleed GI bleed type/associated pathology: unspecified gastrointestinal hemorrhage type Qualified Code(s): K92.2 - Gastrointestinal hemorrhage, unspecified (2) Anemia Anemia type: unspecified type Qualified Code(s): D64.9 - Anemia, unspecified (3) Hyperlipidemia Hyperlipidemia type: unspecified Qualified Code(s): E78.5 - Hyperlipidemia, unspecified (4) Chronic kidney disease (CKD) Chronic kidney disease stage: stage 3 (moderate) Chronic kidney disease stage 3 subtype: stage 3a (GFR 45-59) Qualified Code(s): N18.31 - Chronic kidney disease, stage 3a (5) COPD (chronic obstructive pulmonary disease) COPD type: COPD with acute exacerbation Qualified Code(s): J44.1 - Chronic obstructive pulmonary disease with (acute) exacerbation (6) Hypertension Hypertension type: essential hypertension Qualified Code(s): I10 - Essential (primary) hypertension
[2020-08-24] MEDS: ATORVASTATIN 40 MG TAB PO SCH (20:27)
[2020-08-24] MEDS: APIXABAN 5 MG TABLET PO SCH (20:27)
[2020-08-24] MEDS: TRIAMCINOLONE ACET NASAL SPRAY 10.8ML BTL SCH (20:28)
[2020-08-24] MEDS ORDERED: BUMETANIDE 2 MG in SYRINGE 0 ML IV ONE (21:15)
[2020-08-25] MEDS: ACETAMINOPHEN 325 MG TAB PO PRN ×2 (06:17→11:07)
[2020-08-25 07:31] LABS: BUN Creatinine Ratio 15.4 (10-20); Calcium 8.7 mg/dl (8.5-10.1); Creatinine Clr Calc Pharmacy 110.5 ml/min; Est GFR (African American) 104.3 ml/min; Potassium 3.6 mmol/L (3.5-5.1)
[2020-08-25] MEDS: BUMETANIDE 4 MG in SYRINGE 0 ML IV SCH ×2 (07:40→16:27)
[2020-08-25] MEDS: METOPROLOL SUCC 50MG EXT REL TAB PO SCH ×2 (07:40→21:40)
[2020-08-25] MEDS: PANTOprazole 40 MG TAB PO SCH ×2 (07:40→21:40)
[2020-08-25] MEDS: FERROUS SULFATE 325 MG TAB PO SCH (07:41)
[2020-08-25] MEDS: FLUTICASONE FUROATE 100MCG 14 PUFFS/INHALER INH SCH (07:41)
[2020-08-25] MEDS: VITAMIN B COMPLEX TAB PO SCH (07:41)
[2020-08-25] MEDS: UMECLIDINIUM/VILANTEROL 62.5/25MCG 7 PUFFS/INHALER INH SCH (07:41)
[2020-08-25] MEDS: APIXABAN 5 MG TABLET PO SCH ×2 (07:42→21:39)
[2020-08-25] MEDS: POLYETHYLENE (MIRALAX) 17 GM PACK PO SCH (07:42)
[2020-08-25] MEDS: POTASSIUM CHLORIDE CRTAB 20 MEQ TABCR PO SCH ×2 (07:44→22:19)
[2020-08-25] MEDS: DOCUSATE SODIUM 100 MG CAP PO SCH ×2 (07:44→21:42)
[2020-08-25] MEDS: CHLOROTHIAZIDE SODIUM 500 MG in DEXTROSE 5% 50 ML IV SCH (07:45)
[2020-08-25] MEDS ORDERED: METOPROLOL SUCC 50MG EXT REL TAB PO STA (12:20)
--- NOTE | 2020-08-25 15:34 | Heart Failure Progress Note ---
Date of Service August 25, 2020 Assessment & Plan (1) Acute on chronic diastolic (congestive) heart failure: (2) Morbid obesity with BMI of 50.0-59.9, adult: (3) On home oxygen therapy: (4) Chronic kidney disease (CKD): (5) COPD (chronic obstructive pulmonary disease): Acute on chronic diastolic congestive heart failure: Currently Class III symptoms. He remains significantly hypervolemic on his exam. Continue aggressive diuresis while inpatient, Bumex increased to 4 mg IV BID with a goal loss of > 2 L per day. Diuril 500 mg also added today. There has been significant output already today. Continue to closely monitor kidney function and electrolytes. ProBNP trending down. Anticipate 4 mg PO BID on discharge as he will likely need continued diuresis as outpatient. Tachycardia may be contributing factor as well, recommend optimization of rate once BP stabilizes. Metoprolol succinate started 08/23. BP adequate, remains tachycardic. Continue to titrate as able. Low sodium diet, less than 2,000 mg daily. Could consider inpatient dietary consult for education. Strict I&Os during admission. Daily STANDING weights each morning. Anemia: As per GI and primary service. Atrial fibrillation. Recommend improved rate control. Metoprolol succinate added by primary service. Continue to titrate and optimize rate. Plan for anticoagulation pending results of procedures- Jennifer on hold. Discussed the nature of heart failure and the goals of the program. Patient has been referred in the past but has been resistant to follow up. I think participation would offer significant benefits to him including decrease his risk of hospitalization. He is somewhat agreeable to this. Will arrange for ongoing outpatient follow up at discharge. Will continue to follow during hospitalization. Disposition: Follow up with the heart failure program within 7 days of discharge. Follow up with Dr. Luna as scheduled 09/12/20. Admission and Anticipated Discharge Date Admission Date: August 16, 2020 Subjective Patient reports he's feeling about the same. He's up in the chair this am. Denies worsening shortness of breath or edema. Remains on supplemental O2. Continues to diurese well- negative 16 L per admission. Weight trending down- 292 lb today. Kidney function and electrolytes remain stable. Physical Exam Physical Exam: Constitutional: Alert, oriented, in no acute distress. Obese. HEENT: Head is atraumatic and normocephalic. EOMs intact. Sclera anicteric. Face is symmetric. No perioral cyanosis. Mucous membranes moist. Neck: Supple, JVD difficult to determine due to body habitus Pulmonary: Normal respiratory effort, scattered expiratory wheezing Cardiac: Irregular rate and rhythm. Normal S1 and S2, no gallops, no rubs, no murmurs Extremities: 2+ radial pulses bilaterally. 2+ posterior tibialis pulses bilaterally. 2-3+ pitting edema extending into the thighs. No cyanosis or clubbing. Abdomen: Normal bowel sounds, soft, non-tender, no abdominal mass palpated. Obese. Skin: Normal skin color, turgor, venous stasis changes. Neurological: Patient is awake, alert, and oriented. Pleasant and cooperative. Answers questions appropriately Results & Data ([facility]) Vital Signs (Past 12 Hours) Vital Signs Temp Pulse Pulse Pulse Resp BP BP 08/25/20 11:24 97.5 F L 96 H 18 118/76 08/25/20 07:45 100 H 08/25/20 07:09 98.4 F 91 H 22 98/66 L 08/25/20 03:35 98.4 F 103 H 22 141/69 H Pulse Ox 08/25/20 11:24 96 08/25/20 07:45 08/25/20 07:09 97 08/25/20 03:35 95 PG Care Time/CCT Total # of Minutes Spent Total Time Spent with Patient: Total time spent is greater than 50% in coordination of care (as documented) at patient's floor/unit and/or counseling patient: Heart Failure Data/Metrics Heart Failure Type: Diastolic Evidenced Based Beta Ivon Therapy Beta Ivon Therapy: Not Indicated SILVIA/ARB/ARNI Therapy SILVIA/ARB/ARNI Therapy: Not Indicated Aldosterone Antagonist Therapy Aldosterone Antagonist Therapy: Not Indicated Coding Level of Care Code 71714 Subseq Hosp Care Lvl 3 Diagnoses Acute on chronic diastolic (congestive) heart failure I50.33 Morbid obesity with BMI of 50.0-59.9, adult E66.01; Z68.43 On home oxygen therapy Z99.81 Chronic kidney disease (CKD) N18.31 Chronic kidney disease stage: stage 3 (moderate) Chronic kidney disease stage 3 subtype: stage 3a (GFR 45-59) COPD (chronic obstructive pulmonary disease) J44.1 COPD type: COPD with acute exacerbation (1) Chronic kidney disease (CKD) Chronic kidney disease stage: stage 3 (moderate) Chronic kidney disease stage 3 subtype: stage 3a (GFR 45-59) Qualified Code(s): N18.31 - Chronic kidney disease, stage 3a (2) COPD (chronic obstructive pulmonary disease) COPD type: COPD with acute exacerbation Qualified Code(s): J44.1 - Chronic obstructive pulmonary disease with (acute) exacerbation
[2020-08-25 18:20] LABS: HCO3 ABG 45 mmol/L (19-24); PCO2 ABG 81 mmHg (35-46); PO2 ABG 119 mmHg (80-95); pH ABG 7.36 (7.35-7.45)
[2020-08-25 18:21] LABS: Allen Test POS (Pos)
--- NOTE | 2020-08-25 19:21 | Hospitalist Progress Note ---
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 Has been controlling his shoulder pain * Restarted Eliquis 08/24 * Transfused 4u PRBC * Iron studies on admission with low iron 30 (prior IV iron req HD) and ordered PO supplementation -- would continue at d/c for 2-3 months and have repeat labs now that he will no longer be on Aleve and is instructed to avoid NSAIDs in general s/p EGD/c-scope with Dr. Sandhu 08/18 * EGD: Multiple recently bleeding angioectasias in the stomach. Treated with argon plasma coagulation (APC). 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 * C-scope: non bleeding internal hemorrhoids * Placed back on Protonix 40mg PO BID and to be continued at discharge (2) Acute on chronic diastolic (congestive) heart failure: * ECHO 08/28/18 with EF 60-65%. Most recent 02/17/20 with hyperdynamic LV, no wnl. mild LVH. Of note, had been in volume overload state at that time * Wt on admission 146.6kg * Dry weight closer to 120kg * Continue metoprolol succinate 200 mg p.o. twice daily. Appears to be tolerating this with better rate control. * Continue increased dose of Bumex 4mg IV BID, since diuresis appears to be leveling off added Diuril on discussion with Sara Kahn * Low Na diet, heart healthy diet, will limit intake to 1500ml (slight increase per patient request) (3) Permanent atrial fibrillation: * As above * Switch to metoprolol succinate 200 mg p.o. 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 Nephro consulted, signed off. * Cr improving with diuresis -- Cr stable * Lasix --> bumex as above (6) COPD (chronic obstructive pulmonary disease): * No acute exacerbation, continue home inhalers * chronic oxygen therapy- ABG to assess for hypercapnia (7) Chronic respiratory failure with hypoxia and hypercapnia: Given increased lethargy today will get ABG. 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 This was confirmed by his however the patient feels he is at his baseline. Reports not getting very much sleep last night. Waking up multiple times throughout the night. No significant change to leg swelling. Planning on encompass on discharge once reached a more euvolemic state. Review of Systems Review of Systems: All systems reviewed & are unremarkable except as noted in HPI & below Physical Exam Constitutional: WD/WN, vitals as above + morbidly obese Eyes: + anicteric sclerae; normal pupil size Neck: trachea midline Respiratory: normal respiratory effort, lungs clear to auscultation A uscultation: + diminished lung sounds (Mild at bases only) Cardiovascular: Rate/Rhythm: + tachycardic and + irregularly irregular Heart Sounds: no murmur Extremities: normal capillary refill, + calf tenderness (Bilateral) and + pedal edema (3+ R > L pitting) Gastrointestinal (Abdomen): normal bowel sounds, soft, nontender, no hepatosplenomegaly Inspection/Auscultation: + abdomen distended Musculoskeletal: no cyanosis or clubbing, extremities motor strength 5/5 Skin: + erythema (B/l venous stasis LE not extending below ankle or above knee) Neurologic: moves all extremities and awake; not confused Psychiatric: A+Ox3, euthymic affect Results & Data Results & Data ([facility]) Vital Signs (Past 12 Hours) Vital Signs Temp Pulse Pulse Resp BP Pulse Ox 08/25/20 15:50 36.6 C 96 H 20 92/66 L 98 08/25/20 11:24 36.4 C L 96 H 18 118/76 96 08/25/20 07:45 100 H PG Care Time/CCT Total # of Minutes Spent Total Time Spent with Patient: Total time spent is greater than 50% in coordination of care (as documented) at patient's floor/unit and/or counseling patient: Coding Level of Care Code 35412 Subseq Hosp Care Lvl 2 Diagnoses GI bleed K92.2 GI bleed type/associated pathology: unspecified gastrointestinal hemorrhage type Acute on chronic diastolic (congestive) heart failure I50.33 Permanent atrial fibrillation I48.2 Anemia D64.9 Anemia type: unspecified type Chronic kidney disease (CKD) N18.31 Chronic kidney disease stage: stage 3 (moderate) Chronic kidney disease stage 3 subtype: stage 3a (GFR 45-59) COPD (chronic obstructive pulmonary disease) J44.1 COPD type: COPD with acute exacerbation Chronic respiratory failure with hypoxia and hypercapnia J96.11; J96.12 Hyperlipidemia E78.5 Hyperlipidemia type: unspecified Hypertension I10 Hypertension type: essential hypertension On home oxygen therapy Z99.81 Morbid obesity with BMI of 50.0-59.9, adult E66.01; Z68.43 Acute blood loss anemia D62 (1) GI bleed GI bleed type/associated pathology: unspecified gastrointestinal hemorrhage type Qualified Code(s): K92.2 - Gastrointestinal hemorrhage, unspecified (2) Anemia Anemia type: unspecified type Qualified Code(s): D64.9 - Anemia, unspecified (3) Hyperlipidemia Hyperlipidemia type: unspecified Qualified Code(s): E78.5 - Hyperlipidemia, unspecified (4) Chronic kidney disease (CKD) Chronic kidney disease stage: stage 3 (moderate) Chronic kidney disease stage 3 subtype: stage 3a (GFR 45-59) Qualified Code(s): N18.31 - Chronic kidney disease, stage 3a (5) COPD (chronic obstructive pulmonary disease) COPD type: COPD with acute exacerbation Qualified Code(s): J44.1 - Chronic obstructive pulmonary disease with (acute) exacerbation (6) Hypertension Hypertension type: essential hypertension Qualified Code(s): I10 - Essential (primary) hypertension
[2020-08-25] MEDS: TRIAMCINOLONE ACET NASAL SPRAY 10.8ML BTL SCH (21:38)
[2020-08-25] MEDS: ATORVASTATIN 40 MG TAB PO SCH (21:39)
[2020-08-26 06:37] LABS: BUN Creatinine Ratio 17.8 (10-20); Calcium 8.7 mg/dl (8.5-10.1); Creatinine Clr Calc Pharmacy 113.1 ml/min; Est GFR (African American) 105.5 ml/min; Potassium 3.5 mmol/L (3.5-5.1)
[2020-08-26] MEDS: METOPROLOL SUCC 50MG EXT REL TAB PO SCH ×2 (08:14→20:22)
[2020-08-26] MEDS: BUMETANIDE 4 MG in SYRINGE 0 ML IV SCH ×2 (08:14→17:30)
[2020-08-26] MEDS: APIXABAN 5 MG TABLET PO SCH ×2 (08:15→20:23)
[2020-08-26] MEDS: VITAMIN B COMPLEX TAB PO SCH (08:15)
[2020-08-26] MEDS: FERROUS SULFATE 325 MG TAB PO SCH (08:15)
[2020-08-26] MEDS: POTASSIUM CHLORIDE CRTAB 20 MEQ TABCR PO SCH ×2 (08:15→20:35)
[2020-08-26] MEDS: PANTOprazole 40 MG TAB PO SCH ×2 (08:15→20:22)
[2020-08-26] MEDS: UMECLIDINIUM/VILANTEROL 62.5/25MCG 7 PUFFS/INHALER INH SCH (08:16)
[2020-08-26] MEDS: FLUTICASONE FUROATE 100MCG 14 PUFFS/INHALER INH SCH (08:16)
[2020-08-26] MEDS: CHLOROTHIAZIDE SODIUM 500 MG in DEXTROSE 5% 50 ML IV SCH (08:44)
[2020-08-26] MEDS: POLYETHYLENE (MIRALAX) 17 GM PACK PO SCH (08:44)
[2020-08-26] MEDS: ACETAMINOPHEN 325 MG TAB PO PRN ×3 (08:59→20:51)
[2020-08-26] MEDS: DOCUSATE SODIUM 100 MG CAP PO SCH ×2 (09:26→20:22)
--- NOTE | 2020-08-26 11:39 | XRay Report ---
XR chest 1V portable CLINICAL HISTORY: hypoxia COMPARISON STUDY: 08/18/2020 FINDINGS: The heart remains enlarged. There is a prominent left cardiophrenic angle fat pad. Trace ef fusions are suspected. There is persistent mild pulmonary vascular congestion.[There is a right shoul fabiola arthroplasty. IMPRESSION: Persistent mild pulmonary vascular congestion and trace bilateral pleural effusions ACT 112: Negative or not required by law. Electronically signed by: Hira Moreno M.D. 08/26/2020 11:37 AM
[2020-08-26] MEDS ORDERED: POTASSIUM CHLORIDE CRTAB 20 MEQ TABCR PO STA (17:45)
--- NOTE | 2020-08-26 18:09 | Hospitalist Progress Note ---
Date of Service August 26, 2020 Assessment & Plan (1) GI bleed: Suspected secondary to AVMs * WAS taking aleve 2 pills twice daily for at least 1 year -- educated on avoidance of NSAIDs and to use tylenol as needed for pain. Has been controlling his shoulder pain * Restarted Eliquis 08/24 * Transfused 4u PRBC * Iron studies on admission with low iron 30 (prior IV iron req HD) and ordered PO supplementation -- would continue at d/c for 2-3 months and have repeat labs now that he will no longer be on Aleve and is instructed to avoid NSAIDs in general s/p EGD/c-scope with Dr. Sandhu 08/18 * EGD: Multiple recently bleeding angioectasias in the stomach. Treated with argon plasma coagulation (APC). 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 * C-scope: non bleeding internal hemorrhoids * Placed back on Protonix 40mg PO BID and to be continued at discharge (2) Acute blood loss anemia: (3) Acute on chronic diastolic (congestive) heart failure: * ECHO 08/28/18 with EF 60-65%. Most recent 02/17/20 with hyperdynamic LV, no wnl. mild LVH. Of note, had been in volume overload state at that time * Wt on admission 146.6kg * Dry weight closer to 120kg * Continue metoprolol succinate 200 mg p.o. twice daily. Appears to be tolerating this with better rate control. * Continue increased dose of Bumex 4mg IV BID, added Diuril 08/25 with much larger diuresis without hypotension 3.7L: off yesterday * Low Na diet, heart healthy diet, will limit intake to 1500ml (slight increase per patient request) (4) Permanent atrial fibrillation: * As above * Switched to metoprolol succinate 200 mg p.o. twice daily to enable better rate control given hypotension on atenolol * Restarted on Eliquis for anticoagulation. 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 Nephro consulted, signed off. * Cr improving with diuresis -- Cr stable * Lasix --> bumex as above (7) COPD (chronic obstructive pulmonary disease): * No acute exacerbation, continue home inhalers * chronic oxygen therapy- ABG to assess for hypercapnia (8) Chronic respiratory failure with hypoxia and hypercapnia: ABG suggestive of over treatment of oxygen. Wean to 88%. Turned down to 3 LPM by myself today. 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 Suspect MSK. Consider imaging if persistent. Baclofen for muscle spasms. Suspect related to large fluids shifts causing muscle spasm and should improve with time once more euvolemic. (14) Ankle pain, right: No trauma. If persistent consider XR tomorrow. No erythema or effusion. Admission and Anticipated Discharge Date Admission Date: August 16, 2020 Subjective Patient appears more awake today. Leg swelling actually starting to improve and O2 requirement appears to be below his baseline based on ABG yesterday. CXR without significant improvement however. Patients main complaint today is his back pain and right ankle pain. Yesterday chayo mercedes did a lot of work with physical therapy for the first time and he suspects it is due to that. Pain is reproducible on exam. Review of Systems Review of Systems: All systems reviewed & are unremarkable except as noted in HPI & below Physical Exam Constitutional: WD/WN, vitals as above + morbidly obese Eyes: + anicteric sclerae; normal pupil size Neck: trachea midline Respiratory: normal respiratory effort, lungs clear to auscultation Auscultation: + diminished lung sounds (Mild at bases only) Cardiovascular: Rate/Rhythm: + tachycardic and + irregularly irregular Heart Sounds: no murmur Extremities: normal capillary refill, + calf tenderness (Bilateral) and + pedal edema (2+ R > L pitting) Gastrointestinal (Abdomen): normal bowel sounds, soft, nontender, no hepatosplenomegaly Inspection/Auscultation: + abdomen distended Musculoskeletal: Ankle: + limited ROM of ankle (right painful) and + joint line tenderness (ankle) (latereal malleolus); no deformity, no effusion and no skin erythema Skin: + erythema (B/l venous stasis LE not extending below ankle or above knee, improving) Neurologic: moves all extremities and awake; not confused Psychiatric: A+Ox3, euthymic affect Results & Data Results & [facility] ([facility]) Vital Signs (Past 12 Hours) Vital Signs Temp Pulse Pulse Resp BP Pulse Ox 08/26/20 15:05 36.9 C 99 H 20 123/74 95 08/26/20 11:26 36.9 C 96 H 20 125/79 95 08/26/20 07:32 102 H 20 140/79 93 PG Care Time/CCT Total # of Minutes Spent Total Time Spent with Patient: Total time spent is greater than 50% in coordination of care (as documented) at patient's floor/unit and/or counseling patient: Coding Level of Care Code 69486 Subseq Hosp Care Lvl 2 Diagnoses GI bleed K92.2 GI bleed type/associated pathology: unspecified gastrointestinal hemorrhage type Acute blood loss anemia D62 Acute on chronic diastolic (congestive) heart failure I50.33 Permanent atrial fibrillation I48.2 Anemia D64.9 Anemia type: unspecified type Chronic kidney disease (CKD) N18.31 Chronic kidney disease stage: stage 3 (moderate) Chronic kidney disease stage 3 subtype: stage 3a (GFR 45-59) COPD (chronic obstructive pulmonary disease) J44.1 COPD type: COPD with acute exacerbation Chronic respiratory failure with hypoxia and hypercapnia J96.11; J96.12 On home oxygen therapy Z99.81 Hyperlipidemia E78.5 Hyperlipidemia type: unspecified Hypertension I10 Hypertension type: essential hypertension Morbid obesity with BMI of 50.0-59.9, adult E66.01; Z68.43 Back pain M54.9 Ankle pain, right M25.571 Chronicity: acute (1) GI bleed GI bleed type/associated pathology: unspecified gastrointestinal hemorrhage type Qualified Code(s): K92.2 - Gastrointestinal hemorrhage, unspecified (2) Anemia Anemia type: unspecified type Qualified Code(s): D64.9 - Anemia, unspecified (3) Hyperlipidemia Hyperlipidemia type: unspecified Qualified Code(s): E78.5 - Hyperlipidemia, unspecified (4) Chronic kidney disease (CKD) Chronic kidney disease stage: stage 3 (moderate) Chronic kidney disease stage 3 subtype: stage 3a (GFR 45-59) Qualified Code(s): N18.31 - Chronic kidney disease, stage 3a (5) COPD (chronic obstructive pulmonary disease) COPD type: COPD with acute exacerbation Qualified Code(s): J44.1 - Chronic obstructive pulmonary disease with (acute) exacerbation (6) Hypertension Hypertension type: essential hypertension Qualified Code(s): I10 - Essential (primary) hypertension (7) Ankle pain, right Chronicity: acute Qualified Code(s): M25.571 - Pain in right ankle and joints of right foot
[2020-08-26] MEDS: ATORVASTATIN 40 MG TAB PO SCH (20:23)
[2020-08-26] MEDS: TRIAMCINOLONE ACET NASAL SPRAY 10.8ML BTL SCH (20:24)
[2020-08-27 07:22] LABS: Basophils # (auto) 0.02 K/uL (0-0.2); Basophils % (auto) 0.2 %; Eosinophils # (auto) 0.26 K/uL (0-0.5); Eosinophils % (auto) 3.2 %; Hematocrit (blood only) 34.5 % (42-52); Hemoglobin 10.5 g/dL (14.0-18.0); Immature Granulocytes # (auto) 0.01 K/uL (0.00-0.02); Immature Granulocytes % (auto) 0.1 %; Lymphocytes # (auto) 1.41 K/uL (1.2-3.4); Lymphocytes % (auto) 17.3 %; Mean Corpuscular Hemoglobin 27.4 pg (25-34); Mean Corpuscular Hgb Conc 30.4 g/dL (32-36); Mean Corpuscular Volume 90.1 fL (80-100); Mean Platelet Volume 10.4 fL (7.4-10.4); Monocytes # (auto) 0.77 K/uL (0.11-0.59); Monocytes % (auto) 9.4 %; Neutrophils # (auto) 5.68 K/uL (1.4-6.5); Neutrophils % (auto) 69.8 %; Platelet Count 331 K/uL (130-400); RDW Coefficient of Variation 16.5 % (11.5-14.5); RDW Standard Deviation 53.5 fL (36.4-46.3); Red Blood Count 3.83 M/uL (4.7-6.1); White Blood Count 8.15 K/uL (4.8-10.8)
[2020-08-27] MEDS: ACETAMINOPHEN 325 MG TAB PO PRN ×2 (07:43→23:12)
[2020-08-27] MEDS: PANTOprazole 40 MG TAB PO SCH ×2 (07:45→20:09)
[2020-08-27] MEDS: APIXABAN 5 MG TABLET PO SCH ×2 (07:45→20:09)
[2020-08-27] MEDS: METOPROLOL SUCC 50MG EXT REL TAB PO SCH ×2 (07:45→20:09)
[2020-08-27] MEDS: FERROUS SULFATE 325 MG TAB PO SCH (07:46)
[2020-08-27] MEDS: CHLOROTHIAZIDE SODIUM 500 MG in DEXTROSE 5% 50 ML IV SCH (07:46)
[2020-08-27] MEDS: BUMETANIDE 4 MG in SYRINGE 0 ML IV SCH ×2 (07:46→16:42)
[2020-08-27] MEDS: VITAMIN B COMPLEX TAB PO SCH (07:46)
[2020-08-27] MEDS: POTASSIUM CHLORIDE CRTAB 20 MEQ TABCR PO SCH ×3 (07:52→20:09)
[2020-08-27] MEDS: FLUTICASONE FUROATE 100MCG 14 PUFFS/INHALER INH SCH (07:52)
[2020-08-27] MEDS: BACLOFEN 10 MG TAB PO PRN (07:52)
[2020-08-27] MEDS: UMECLIDINIUM/VILANTEROL 62.5/25MCG 7 PUFFS/INHALER INH SCH (07:52)
[2020-08-27] MEDS: POLYETHYLENE (MIRALAX) 17 GM PACK PO SCH (07:52)
[2020-08-27] MEDS: DOCUSATE SODIUM 100 MG CAP PO SCH ×2 (07:52→20:09)
[2020-08-27 08:02] LABS: BUN Creatinine Ratio 16.7 (10-20); Calcium 9.6 mg/dl (8.5-10.1); Creatinine Clr Calc Pharmacy 91.4 ml/min; Est GFR (African American) 96.6 ml/min; Est GFR (Non-African American) 83.3 ml/min; Magnesium 2.1 mg/dl (1.8-2.4); Potassium 3.5 mmol/L (3.5-5.1)
[2020-08-27] MEDS ORDERED: predniSONE 10 MG TABLET PO ONE (19:24)
[2020-08-27] MEDS ORDERED: COLCHICINE 0.6 MG TAB PO ONE (19:24)
--- NOTE | 2020-08-27 19:24 | Hospitalist Progress Note ---
Date of Service August 27, 2020 Assessment & Plan (1) Ankle pain, right: right first MTP pain/swelling; right mid-foot pain/swelling; right ankle pain. suspect acute gouty arthritis. CPPD possible but less likely. obtained x-rays of right foot and right ankle today -- no fractures or CPPD changes. plan - check sed rate/uric acid level am. in meantime - prednisone 10mg po x 1; colchicine 0.6mg po x 1. re-eval in am. of note - diuril usage (Thiazide) theoretically could have precipitated a gout flare. (2) Acute on chronic diastolic (congestive) heart failure: slow yet steady, daily improvement in volume status with ongoing diuresis. admission weight 146kg. dry weight ~120kg. down to 127kg today. cont bumex 4mg IV BID. diuril added 08/25 prior to AM bumex. at his request I have increased free water restriction to 1800cc/day. continue metoprolol xl 200mg BID. with at bedside I reinforced the importance of fluid and salt restriction today. check BMP am. (3) GI bleed: secondary to gastric AVMs as seen on EGD on 08/[address] Sandhu. s/p APC treatment to the AVMs. 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 Lesion was not biopsied during EGD. also recieved colonoscopy this admission without source of bleeding. Eliquis held for much of the stay, and with stable H/H it was resumed on 08/24. GI bleed resulted in acute blood loss anemia - s/p 4 units PRBCs early this admission. H/H cont to remain stable with Hb >10 today. Cont PPI twice daily. (4) Acute blood loss anemia: s/p 4 units PRBCs earlier this stay. acute blood loss anemia 2nd to upper GI bleeding. (5) Permanent atrial fibrillation: Rates controlled with toprol xl 200mg BID Cont eliquis 5mg BID for anticoagulation. (6) Acute kidney injury: Peak Cr 2.1 at admission. Cr today 0.9. Likely XIOMY was ATN from GI bleeding. Fully resolved. (7) COPD (chronic obstructive pulmonary disease): No acute exacerbation during the stay. Cont usual inhalers. Cont NC O2 continuously. (8) Chronic respiratory failure with hypoxia and hypercapnia: Stable O2 sats on 2-3 L of NC O2. Continue NC O2 during the day and BIPAP at HS. (9) Hyperlipidemia: Continue Atorvastatin (10) Hypertension: Continue to monitor closely with increased dose of diuretics But otherwise well-controlled (11) Morbid obesity with BMI of 50.0-59.9, adult: BMI had been >50 but with diuresis BMI now 45 (12) DVT prophylaxis: eliquis 5mg BID updated at bedside OOB to chair PT, OT labs am progressing Admission and Anticipated Discharge Date Admission Date: August 16, 2020 Subjective tele overnight - a.fib, rates controlled patient c/o right foot & ankle pain during the visit started pm into Saturday am feels a little better today but not back to normal he was quite upset about his fluid restriction during the visit he was adamant that he wasn't being given the total amount ordered (1500cc/day) denied any change in his breathing does admit to feeling weak and fatigued only got out of bed once today to the chair doesn't enjoy the hospital food Review of Systems Constitutional: + fatigue; no fever, no chills and no anorexia Respiratory: no cough Cardiovascular: no chest pain Gastrointestinal: no abdominal pain Physical Exam Constitutional: + acute distress and + morbidly obese; no altered mental status ENMT: external ear and nose normal, oropharynx normal Respiratory: no respiratory distress Auscultation: + diminished lung sounds, + rales (Bases) and + wheezes Cardiovascular: Rate/Rhythm: regular rate and + irregularly irregular Heart Sounds: normal S1 and normal S2; no murmur Vessels: posterior tibial pulses present and dorsalis pedis pulses present; no JVD Extremities: + edema (1+ b/l, a little worse on right ) Gastrointestinal (Abdomen): normal bowel sounds, soft, nontender, no hepatosplenomegaly Musculoskeletal: right foot - podagra first MTP; swelling/tenderness to palpation. mid-foot arthritis - swelling, erythema, warmth, tenderness to palpation. right ankle - also swollen, tender to palpation, mild tenderness with passive ROM Skin: venous stasis changes b/l shins, worse on right ; no cellulitis either mcguire Psychiatric: Orientation: alert and oriented x 3 Results & Data Results & Data ([facility]) Vital Signs (Past 12 Hours) Vital Signs Temp Pulse Pulse Pulse Resp BP Pulse Ox 08/27/20 15:00 36.8 C 62 20 106/68 95 08/27/20 11:02 36.9 C 57 L 20 103/65 95 08/27/20 09:17 94 H 08/27/20 08:12 36.6 C 89 18 133/72 93 08/27/20 08:00 36.5 C 89 20 140/69 94 Laboratory Results Laboratory Results - last 24 hr 08/27/20 08/27/20 06:44 06:44 WBC 8.15 RBC 3.83 L Hgb 10.5 L Hct 34.5 L MCV 90.1 MCH 27.4 MCHC 30.4 L RDW Std Deviation 53.5 H RDW Coeff of Ezekiel 16.5 H Plt Count 331 MPV 10.4 Immature Gran % (Auto) 0.1 Neut % (Auto) 69.8 Lymph % (Auto) 17.3 [place] % (Auto) 9.4 Eos % (Auto) 3.2 Baso % (Auto) 0.2 Neut # (Auto) 5.68 Lymph # (Auto) 1.41 [place] # (Auto) 0.77 H Eos # (Auto) 0.26 Baso # (Auto) 0.02 Immature Gran # (Auto) 0.01 Sodium 139 Potassium 3.5 Chloride 95 L Carbon Dioxide 39 H Anion Gap 5.0 BUN 15 Creatinine 0.91 Est Cr Clr Drug Dosing 91.4 Est GFR ( Amer) 96.6 Est GFR (Non-Af Amer) 83.3 BUN/Creatinine Ratio 16.7 Glucose 96 Calcium 9.6 Magnesium 2.1 PG Care Time/CCT Total # of Minutes Spent Total Time Spent with Patient: Total time spent is greater than 50% in coordination of care (as documented) at patient's floor/unit and/or counseling patient: Coding Level of Care Code 54386 Subseq Hosp Care Lvl 2 Diagnoses Ankle pain, right M25.571 Chronicity: acute Acute on chronic diastolic (congestive) heart failure I50.33 GI bleed K92.2 GI bleed type/associated pathology: unspecified gastrointestinal hemorrhage type Acute blood loss anemia D62 Permanent atrial fibrillation I48.2 Acute kidney injury N17.9 COPD (chronic obstructive pulmonary disease) J44.1 COPD type: COPD with acute exacerbation Chronic respiratory failure with hypoxia and hypercapnia J96.11; J96.12 Hyperlipidemia E78.5 Hyperlipidemia type: unspecified Hypertension I10 Hypertension type: essential hypertension Morbid obesity with BMI of 50.0-59.9, adult E66.01; Z68.43 DVT prophylaxis Z29.9 (1) GI bleed GI bleed type/associated pathology: unspecified gastrointestinal hemorrhage type Qualified Code(s): K92.2 - Gastrointestinal hemorrhage, unspecified (2) Hyperlipidemia Hyperlipidemia type: unspecified Qualified Code(s): E78.5 - Hyperlipidemia, unspecified (3) Ankle pain, right Chronicity: acute Qualified Code(s): M25.571 - Pain in right ankle and joints of right foot (4) COPD (chronic obstructive pulmonary disease) COPD type: COPD with acute exacerbation Qualified Code(s): J44.1 - Chronic obstructive pulmonary disease with (acute) exacerbation (5) Hypertension Hypertension type: essential hypertension Qualified Code(s): I10 - Essential (primary) hypertension
--- NOTE | 2020-08-27 19:52 | XRay Report ---
XR ankle RT 2V CLINICAL HISTORY: gout vs CPPD COMPARISON: None FINDINGS: Alignment of the right ankle is anatomic. Talar dome is intact. A few small ossicles along the lateral malleolus are chronic. Ankle soft tissue swelling is present. No acute fracture is ident ified. No soft tissue calcifications are identified. Vascular calcification is incidentally noted. Ti biotalar and subtalar joint spaces are preserved. IMPRESSION: 1. No acute fracture. 2. Ankle soft tissue swelling. No soft tissue calcifications. ACT 112: Negative or not required by law. Electronically signed by: Zackery Jensen M.D. 08/27/2020 7:50 PM
--- NOTE | 2020-08-27 19:54 | XRay Report ---
XR foot RT 2V CLINICAL HISTORY: ?gout vs CPPD right mid-foot COMPARISON: None FINDINGS: Tarsometatarsal joints are intact. Incidental note is made of moderate vascular calcificat ion. Right ankle and right foot soft tissue swelling is present. There is no acute fracture within th e right foot. Severe joint space narrowing of the right first and second metatarsophalangeal joints i s noted. No erosions are identified. No soft tissue calcifications are identified. IMPRESSION: 1. No acute fracture or dislocation within the right foot. 2. Severe joint space narrowing with osteophytosis of the right first and second metatarsophalangeal joints suggestive of osteoarthritis. 3. No radiographic evidence for gout. ACT 112: Negative or not required by law. Electronically signed by: Zackery Jensen M.D. 08/27/2020 7:53 PM
[2020-08-27] MEDS: ATORVASTATIN 40 MG TAB PO SCH (20:09)
[2020-08-27] MEDS: TRIAMCINOLONE ACET NASAL SPRAY 10.8ML BTL SCH (20:10)
[2020-08-28] MEDS: VITAMIN B COMPLEX TAB PO SCH (07:47)
[2020-08-28] MEDS: APIXABAN 5 MG TABLET PO SCH ×2 (07:47→20:15)
[2020-08-28] MEDS: POTASSIUM CHLORIDE CRTAB 20 MEQ TABCR PO SCH ×3 (07:47→20:15)
[2020-08-28] MEDS: DOCUSATE SODIUM 100 MG CAP PO SCH ×2 (07:48→20:15)
[2020-08-28] MEDS: PANTOprazole 40 MG TAB PO SCH ×2 (07:48→20:15)
[2020-08-28] MEDS: BUMETANIDE 4 MG in SYRINGE 0 ML IV SCH ×2 (07:48→17:21)
[2020-08-28] MEDS: FERROUS SULFATE 325 MG TAB PO SCH (07:48)
[2020-08-28 07:49] LABS: BUN Creatinine Ratio 20.2 (10-20); Calcium 9.4 mg/dl (8.5-10.1); Creatinine Clr Calc Pharmacy 95.5 ml/min; Est GFR (African American) 99.7 ml/min; Potassium 3.7 mmol/L (3.5-5.1); Uric Acid 11.9 mg/dl (2.6-7.2)
[2020-08-28] MEDS: FLUTICASONE FUROATE 100MCG 14 PUFFS/INHALER INH SCH (07:49)
[2020-08-28] MEDS: UMECLIDINIUM/VILANTEROL 62.5/25MCG 7 PUFFS/INHALER INH SCH (07:49)
[2020-08-28] MEDS: CHLOROTHIAZIDE SODIUM 500 MG in DEXTROSE 5% 50 ML IV SCH (07:49)
[2020-08-28] MEDS: POLYETHYLENE (MIRALAX) 17 GM PACK PO SCH (07:57)
[2020-08-28] MEDS: BACLOFEN 10 MG TAB PO PRN (07:57)
[2020-08-28] MEDS: METOPROLOL SUCC 50MG EXT REL TAB PO SCH ×2 (09:24→20:15)
[2020-08-28] MEDS: ACETAMINOPHEN 325 MG TAB PO PRN ×2 (10:34→20:15)
[2020-08-28] MEDS ORDERED: predniSONE 5 MG TAB PO ONE (11:05)
[2020-08-28] MEDS ORDERED: COLCHICINE 0.6 MG TAB PO ONE (11:05)
[2020-08-28] MEDS: ATORVASTATIN 40 MG TAB PO SCH (20:15)
[2020-08-28] MEDS: TRIAMCINOLONE ACET NASAL SPRAY 10.8ML BTL SCH (20:16)
--- NOTE | 2020-08-28 21:40 | Hospitalist Progress Note ---
Date of Service August 28, 2020 Assessment & Plan (1) Acute gouty arthritis: right first MTP joint, right mid-foot, and right ankle. uric acid >11. sed rate markedly elevated. symptoms/signs/labs all suggestive of acute gouty arthritis. no evidence of CPPD on x-rays. no fractures. improved overnight with small dose of prednisone and colchicine. possible that recent diuril may have elevated uric acid level and precipitated the gout flare. either way will treat again with prednisone today along with colchicine. then prednisone 5mg daily starting tomorrow and colchicine 0.6mg daily. (2) Acute on chronic diastolic (congestive) heart failure: continues to improve with stable BUN and Cr. admission weight 146kg. dry weight ~120kg. down to 125kg today. cont bumex 4mg IV BID. cont free water restriction at 1800cc/day. continue metoprolol xl 200mg BID. check BMP am. daily standing weights. (3) GI bleed: secondary to gastric AVMs as seen on EGD on 08/[address] Sandhu. s/p APC treatment to the AVMs. 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 Lesion was not biopsied during EGD. also recieved colonoscopy this admission without source of bleeding. Eliquis held for much of the stay, and with stable H/H it was resumed on 08/24. No bleeding since then. GI bleed resulted in acute blood loss anemia - s/p 4 units PRBCs early this admission. H/H cont to remain stable. Cont PPI twice daily. (4) Acute blood loss anemia: s/p 4 units PRBCs earlier this stay. acute blood loss anemia 2nd to upper GI bleeding. (5) Permanent atrial fibrillation: Rates controlled with toprol xl 200mg BID Cont eliquis 5mg BID for anticoagulation. (6) Acute kidney injury: Peak Cr 2.1 at admission. Cr today 0.9. Likely XIOMY was ATN from GI bleeding. Fully resolved. (7) COPD (chronic obstructive pulmonary disease): No acute exacerbation during the stay. Cont usual inhalers. Cont NC O2 continuously. His wheezing on exam is either "Cardiac" wheezing from volume overload or his COPD itself. (8) Chronic respiratory failure with hypoxia and hypercapnia: Stable O2 sats on 2-3 L of NC O2. Continue NC O2 during the day and BIPAP at HS. (9) Hyperlipidemia: Continue Atorvastatin (10) Hypertension: Controlled Cont current medications (11) Morbid obesity with BMI of 45.0-49.9, adult: (12) DVT prophylaxis: eliquis 5mg BID updated at bedside again today OOB to chair PT, OT - [facility] at discharge? ok to d/c tele - move to medical floor Admission and Anticipated Discharge Date Admission Date: August 16, 2020 Subjective tele overnight - a. fib, rates controlled, <100 patient overall feeling ok right foot and ankle pain improved still hurts to walk on such but improved from yesterday not as swollen breathing improved not as short of breath no cough c/o poor sleep has chronic insomnia at home sleeps maybe 1-3 hours then wakes up and is awake for the rest of the night this pattern has persisted in the hospital Review of Systems Constitutional: + fatigue; no fever, no chills and no anorexia Respiratory: + dyspnea on exertion and + wheezing Cardiovascular: no chest pain, no orthopnea and no edema Gastrointestinal: no abdominal pain, no nausea and no vomiting Physical Exam Constitutional: + morbidly obese; no acute distress and no altered mental status ENMT: external ear and nose normal, oropharynx normal Respiratory: no respiratory distress Auscultation: + diminished lung sounds (bases), + rales (bibasilar) and + wheezes (Right lung worse than Left) Cardiovascular: Rate/Rhythm: regular rate and + irregularly irregular Heart Sounds: normal S1 and normal S2; no murmur Vessels: posterior tibial pulses present and dorsalis pedis pulses present; no JVD Extremities: + edema (trace b/l) Gastrointestinal (Abdomen): normal bowel sounds, soft, nontender, no hepatosplenomegaly Musculoskeletal: right ankle, right mid-foot, and right first MTP with improved swelling, warmth and tenderness. ROM of right ankle is much improved today. Psychiatric: Orientation: alert and oriented x 3 Results & Data Results & Data ([facility]) Vital Signs (Past 12 Hours) Vital Signs Temp Pulse Pulse Pulse Resp BP Pulse Ox 08/28/20 20:14 89 131/80 08/28/20 18:09 36.6 C 101 H 18 139/79 94 08/28/20 15:49 82 08/28/20 15:43 36.7 C 87 16 150/91 H 93 08/28/20 11:49 36.4 C L 95 H 20 108/73 95 Laboratory Results Laboratory Results - last 24 hr 08/28/20 08/28/20 07:15 07:15 ESR 88 H Sodium 137 Potassium 3.7 Chloride 96 L Carbon Dioxide 37 H Anion Gap 4.0 BUN 17 Creatinine 0.86 Est Cr Clr Drug Dosing 95.5 Est GFR ( Amer) 99.7 Est GFR (Non-Af Amer) 86.0 BUN/Creatinine Ratio 20.2 H Glucose 120 H Uric Acid 11.9 H Calcium 9.4 PG Care Time/CCT Total # of Minutes Spent Total Time Spent with Patient: Total time spent is greater than 50% in coordination of care (as documented) at patient's floor/unit and/or counseling patient: Coding Level of Care Code 92277 Subseq Hosp Care Lvl 3 Diagnoses Acute gouty arthritis M10.9 Acute on chronic diastolic (congestive) heart failure I50.33 GI bleed K92.2 GI bleed type/associated pathology: unspecified gastrointestinal hemorrhage type Acute blood loss anemia D62 Permanent atrial fibrillation I48.2 Acute kidney injury N17.9 COPD (chronic obstructive pulmonary disease) J44.1 COPD type: COPD with acute exacerbation Chronic respiratory failure with hypoxia and hypercapnia J96.11; J96.12 Hyperlipidemia E78.5 Hyperlipidemia type: unspecified Hypertension I10 Hypertension type: essential hypertension Morbid obesity with BMI of 45.0-49.9, adult E66.01; Z68.42 DVT prophylaxis Z29.9 (1) GI bleed GI bleed type/associated pathology: unspecified gastrointestinal hemorrhage type Qualified Code(s): K92.2 - Gastrointestinal hemorrhage, unspecified (2) Hyperlipidemia Hyperlipidemia type: unspecified Qualified Code(s): E78.5 - Hyperlipidemia, unspecified (3) COPD (chronic obstructive pulmonary disease) COPD type: COPD with acute exacerbation Qualified Code(s): J44.1 - Chronic obstructive pulmonary disease with (acute) exacerbation (4) Hypertension Hypertension type: essential hypertension Qualified Code(s): I10 - Essential (primary) hypertension
[2020-08-29 05:41] LABS: Hematocrit (blood only) 33.9 % (42-52); Hemoglobin 10.4 g/dL (14.0-18.0); Mean Corpuscular Hemoglobin 27.3 pg (25-34); Mean Corpuscular Hgb Conc 30.7 g/dL (32-36); Mean Platelet Volume 10.1 fL (7.4-10.4); Platelet Count 389 K/uL (130-400); RDW Coefficient of Variation 16.5 % (11.5-14.5); RDW Standard Deviation 53.5 fL (36.4-46.3); Red Blood Count 3.81 M/uL (4.7-6.1); White Blood Count 6.92 K/uL (4.8-10.8)
[2020-08-29 06:12] LABS: BUN Creatinine Ratio 22.2 (10-20); Calcium 8.9 mg/dl (8.5-10.1); Creatinine Clr Calc Pharmacy 96.5 ml/min; Est GFR (African American) 99.7 ml/min; Potassium 3.6 mmol/L (3.5-5.1)
[2020-08-29] MEDS: BUMETANIDE 4 MG in SYRINGE 0 ML IV SCH ×2 (07:56→17:26)
[2020-08-29] MEDS: POTASSIUM CHLORIDE CRTAB 20 MEQ TABCR PO SCH ×3 (07:57→20:37)
[2020-08-29] MEDS: VITAMIN B COMPLEX TAB PO SCH (07:57)
[2020-08-29] MEDS: DOCUSATE SODIUM 100 MG CAP PO SCH ×2 (07:58→20:38)
[2020-08-29] MEDS: METOPROLOL SUCC 50MG EXT REL TAB PO SCH ×2 (07:58→20:31)
[2020-08-29] MEDS: PANTOprazole 40 MG TAB PO SCH ×2 (07:58→20:32)
[2020-08-29] MEDS: POLYETHYLENE (MIRALAX) 17 GM PACK PO SCH (07:59)
[2020-08-29] MEDS: FERROUS SULFATE 325 MG TAB PO SCH (07:59)
[2020-08-29] MEDS: APIXABAN 5 MG TABLET PO SCH ×2 (07:59→20:30)
[2020-08-29] MEDS: predniSONE 5 MG TAB PO SCH (08:26)
[2020-08-29] MEDS: COLCHICINE 0.6 MG TAB PO SCH (08:26)
[2020-08-29] MEDS: FLUTICASONE FUROATE 100MCG 14 PUFFS/INHALER INH SCH (08:27)
[2020-08-29] MEDS: UMECLIDINIUM/VILANTEROL 62.5/25MCG 7 PUFFS/INHALER INH SCH (08:27)
[2020-08-29] MEDS: ATORVASTATIN 40 MG TAB PO SCH (20:30)
[2020-08-29] MEDS: traZODone HCL 50 MG TAB PO SCH (20:32)
[2020-08-29] MEDS: TRIAMCINOLONE ACET NASAL SPRAY 10.8ML BTL SCH (20:33)
[2020-08-29] MEDS: ACETAMINOPHEN 325 MG TAB PO PRN (21:46)
[2020-08-29] MEDS: MELATONIN 3 MG TAB PO PRN (21:47)
--- NOTE | 2020-08-29 21:54 | Hospitalist Progress Note ---
Date of Service August 29, 2020 Assessment & Plan (1) Acute on chronic diastolic (congestive) heart failure: continues to improve with stable BUN and Cr. admission weight 146kg. dry weight ~120kg. down to 122kg today. cont bumex 4mg IV BID. suspect we are very close to euvolemia and may need to d/c IV diurectics tomorrow. cont free water restriction at 1800cc/day. continue metoprolol xl 200mg BID. check BMP am. daily standing weights. I spoke with pt and his about f/u with CHF clinic via [facility] cardiology. They are interested. He understands how important it will be to regulate his salt & water intake post-d/c. (2) Acute gouty arthritis: right first MTP joint, right mid-foot, and right ankle. uric acid >11 with high sed rate. IMPROVING with daily prednisone & colchicine. cont pred 5mg daily along with colchicine 0.6mg. symptoms/signs/labs all suggestive of acute gouty arthritis. no evidence of CPPD on x-rays. no fractures. possible that recent diuril may have precipitated the gout flare. diuril was stopped. (3) GI bleed: secondary to gastric AVMs as seen on EGD on 08/[address] Sandhu. s/p APC treatment to the AVMs. 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 Lesion was not biopsied during EGD. s/p colonoscopy - no source of bleeding. Eliquis resumed on 08/24. No bleeding since then with stable h/h since. Cont PPI twice daily. (4) Acute blood loss anemia: s/p 4 units PRBCs earlier this stay. acute blood loss anemia was 2nd to upper GI bleeding as above. H/H stable again today. (5) Iron deficiency anemia: 08/17/20 -- ferritin level was 10. has been on once daily ferrous sulfate since then. will give IV venofer tomorrow. (6) Permanent atrial fibrillation: Rates controlled with toprol xl 200mg BID Cont eliquis 5mg BID for anticoagulation. (7) Acute kidney injury: Peak Cr 2.1 at admission. Cr today 0.8. RESOLVED. XIOMY was likely ATN from GI bleeding. (8) COPD (chronic obstructive pulmonary disease): No acute exacerbation during the stay. Cont usual inhalers. Cont NC O2 continuously. His wheezing on exam is either "Cardiac" wheezing from volume overload or his COPD itself. Wheezing is mild and relatively asymptomatic. (9) Chronic respiratory failure with hypoxia and hypercapnia: Stable O2 sats on 2-3 L of NC O2. Continue NC O2 during the day and BIPAP at HS. (10) Hyperlipidemia: Continue Atorvastatin (11) Hypertension: Controlled Cont current medications (12) Morbid obesity with BMI of 45.0-49.9, adult: BMI now 43 with copious diuresis (13) Insomnia: chronic, severe. has very poor sleep hygiene. spends many nights watching TV in bed, etc. trial of trazodone 25mg HS (14) DVT prophylaxis: eliquis 5mg BID updated at bedside again today OOB to chair PT, OT - [facility] at discharge? will inquire with case workers tomorrow Admission and Anticipated Discharge Date Admission Date: August 16, 2020 Subjective still slept poorly last pm despite having a new, private room on 3rd floor slept only 2 hours, then watched TV the rest of the night during my visit he was sitting in chair stated "my breathing is really much better today" he overall feels better right foot still mildly uncomfortable w/ weight-bearing / walking but improved pt and his inquire if he can still go to [facility] at discharge he desires such Review of Systems Constitutional: + fatigue; no fever, no chills and no anorexia Respiratory: + dyspnea on exertion and + wheezing; no cough Cardiovascular: + edema; no chest pain Gastrointestinal: no abdominal pain, no nausea, no vomiting and no diarrhea/loose stools Physical Exam Constitutional: + morbidly obese; no acute distress and no altered mental status sitting in chair - looks good today ENMT: external ear and nose normal, oropharynx normal Respiratory: no respiratory distress Auscultation: + diminished lung sounds (RIGHT base [place] ), + rales (bibasilar - minimal today) and + wheezes (mild end expiratory) Cardiovascular: Rate/Rhythm: regular rate and + irregularly irregular Heart Sounds: normal S1 and normal S2; no murmur Vessels: posterior tibial pulses present and dorsalis pedis pulses present; no JVD Extremities: + edema (trace b/l) Gastrointestinal (Abdomen): normal bowel sounds, soft, nontender, no hepatosplenomegaly Musculoskeletal: Right foot -- first MTP, mid-foot region -- MUCH improved swelling, warmth and tenderness. Right ankle -- MUCH improved swelling, warmth and tenderness. Psychiatric: Orientation: alert and oriented x 3 Results & Data Results & Data ([facility]) Vital Signs (Past 12 Hours) Vital Signs Temp Pulse Pulse Resp BP BP Pulse Ox 08/29/20 20:28 91 H 138/84 08/29/20 15:29 36.4 C L 86 18 123/73 98 Laboratory Results Laboratory Results - last 24 hr 08/29/20 08/29/20 05:26 05:26 WBC 6.92 RBC 3.81 L Hgb 10.4 L Hct 33.9 L MCV 89.0 MCH 27.3 MCHC 30.7 L RDW Std Deviation 53.5 H RDW Coeff of Ezekiel 16.5 H Plt Count 389 MPV 10.1 Sodium 140 Potassium 3.6 Chloride 98 Carbon Dioxide 38 H Anion Gap 4.0 BUN 19 H Creatinine 0.86 Est Cr Clr Drug Dosing 96.5 Est GFR ( Amer) 99.7 Est GFR (Non-Af Amer) 86.0 BUN/Creatinine Ratio 22.2 H Glucose 98 Calcium 8.9 PG Care Time/CCT Total # of Minutes Spent Total Time Spent with Patient: Total time spent is greater than 50% in coordination of care (as documented) at patient's floor/unit and/or counseling patient: Coding Level of Care Code 86187 Subseq Hosp Care Lvl 2 Diagnoses Acute on chronic diastolic (congestive) heart failure I50.33 Acute gouty arthritis M10.9 GI bleed K92.2 GI bleed type/associated pathology: unspecified gastrointestinal hemorrhage type Acute blood loss anemia D62 Iron deficiency anemia D50.9 Permanent atrial fibrillation I48.2 Acute kidney injury N17.9 COPD (chronic obstructive pulmonary disease) J44.1 COPD type: COPD with acute exacerbation Chronic respiratory failure with hypoxia and hypercapnia J96.11; J96.12 Hyperlipidemia E78.5 Hyperlipidemia type: unspecified Hypertension I10 Hypertension type: essential hypertension Morbid obesity with BMI of 45.0-49.9, adult E66.01; Z68.42 Insomnia G47.00 DVT prophylaxis Z29.9 (1) GI bleed GI bleed type/associated pathology: unspecified gastrointestinal hemorrhage type Qualified Code(s): K92.2 - Gastrointestinal hemorrhage, unspecified (2) COPD (chronic obstructive pulmonary disease) COPD type: COPD with acute exacerbation Qualified Code(s): J44.1 - Chronic obstructive pulmonary disease with (acute) exacerbation (3) Hyperlipidemia Hyperlipidemia type: unspecified Qualified Code(s): E78.5 - Hyperlipidemia, unspecified (4) Hypertension Hypertension type: essential hypertension Qualified Code(s): I10 - Essential (primary) hypertension
[2020-08-30 06:06] LABS: Calcium 8.6 mg/dl (8.5-10.1); Creatinine Clr Calc Pharmacy 84.6 ml/min; Est GFR (African American) 90.5 ml/min; Est GFR (Non-African American) 78.1 ml/min; Potassium 3.9 mmol/L (3.5-5.1)
[2020-08-30] MEDS: FERROUS SULFATE 325 MG TAB PO SCH (08:13)
[2020-08-30] MEDS: VITAMIN B COMPLEX TAB PO SCH (08:13)
[2020-08-30] MEDS: APIXABAN 5 MG TABLET PO SCH ×2 (08:14→20:29)
[2020-08-30] MEDS: COLCHICINE 0.6 MG TAB PO SCH (08:14)
[2020-08-30] MEDS: predniSONE 5 MG TAB PO SCH (08:14)
[2020-08-30] MEDS: PANTOprazole 40 MG TAB PO SCH ×2 (08:14→20:30)
[2020-08-30] MEDS: POLYETHYLENE (MIRALAX) 17 GM PACK PO SCH (08:14)
[2020-08-30] MEDS: UMECLIDINIUM/VILANTEROL 62.5/25MCG 7 PUFFS/INHALER INH SCH (08:15)
[2020-08-30] MEDS: FLUTICASONE FUROATE 100MCG 14 PUFFS/INHALER INH SCH (08:15)
[2020-08-30] MEDS: METOPROLOL SUCC 50MG EXT REL TAB PO SCH ×2 (08:15→20:30)
[2020-08-30] MEDS: POTASSIUM CHLORIDE CRTAB 20 MEQ TABCR PO SCH ×3 (09:01→20:30)
[2020-08-30] MEDS: BUMETANIDE 4 MG in SYRINGE 0 ML IV SCH ×2 (09:02→16:09)
[2020-08-30] MEDS: DOCUSATE SODIUM 100 MG CAP PO SCH ×2 (09:02→20:30)
--- NOTE | 2020-08-30 13:01 | Heart Failure Progress Note ---
Date of Service August 30, 2020 Assessment & Plan (1) Acute on chronic diastolic (congestive) heart failure: (2) Morbid obesity with BMI of 50.0-59.9, adult: (3) On home oxygen therapy: (4) Chronic kidney disease (CKD): (5) COPD (chronic obstructive pulmonary disease): Acute on chronic diastolic congestive heart failure: Currently Class III symptoms. He is likely near euvolemic. BUN is slightly elevated. Creatinine remains normal. Continue to closely monitor kidney function and electrolytes. ProBNP trending down. Anticipate transition to 4 mg PO BID on discharge as he will likely need continued diuresis as outpatient. Tachycardia may be contributing factor as well, recommend optimization of rate once BP stabilizes. Tolerating Metoprolol 200 mg BID. Low sodium diet, less than 2,000 mg daily. Could consider inpatient dietary consult for education. Strict I&Os during admission. Daily STANDING weights each morning. Anemia: As per GI and primary service. Atrial fibrillation. Recommend improved rate control. Metoprolol succinate added by primary service. Plan for anticoagulation pending results of procedures- Jennifer restarted Discussed the nature of heart failure and the goals of the program. Patient has been referred in the past but has been resistant to follow up. I think participation would offer significant benefits to him including decrease his risk of hospitalization. He is somewhat agreeable to this. Will arrange for ongoing outpatient follow up at discharge. Will continue to follow during hospitalization. Patient accepted at [facility] today. Disposition: Follow up with the heart failure program within 7 days of discharge- 09/02 at 1400. Follow up with Dr. Luna as scheduled 09/12/20. Admission and Anticipated Discharge Date Admission Date: August 16, 2020 Subjective Patient reports he's feeling significantly improved from last week. His breathing is much better. He's sitting in the bedside chair. He continues to wear supplemental O2, which is his baseline. He reports he slept well last night and was flat most of the night. He's net negative 27 L for his admission. Weight is 271 lb this am on the standing scale. Physical Exam Physical Exam: Constitutional: Alert, oriented, in no acute distress. Obese. HEENT: Head is atraumatic and normocephalic. EOMs intact. Sclera anicteric. Face is symmetric. No perioral cyanosis. Mucous membranes moist. Neck: Supple, JVD difficult to determine due to body habitus Pulmonary: Normal respiratory effort, dimished breath sounds but clear throughout. Cardiac: Irregular rate and rhythm. Normal S1 and S2, no gallops, no rubs, no murmurs Extremities: 2+ radial pulses bilaterally. 2+ posterior tibialis pulses bilaterally. 1-2+ pitting edema. No cyanosis or clubbing. Abdomen: Normal bowel sounds, soft, non-tender, no abdominal mass palpated. Obese. Skin: Normal skin color, turgor, venous stasis changes. Neurological: Patient is awake, alert, and oriented. Pleasant and cooperative. Answers questions appropriately Results & Data ([facility]) Vital Signs (Past 12 Hours) Vital Signs Temp Pulse Resp BP Pulse Ox 08/30/20 07:21 98.2 F 91 H 18 155/77 H 98 PG Care Time/CCT Total # of Minutes Spent Total Time Spent with Patient: Total time spent is greater than 50% in coordination of care (as documented) at patient's floor/unit and/or counseling patient: Heart Failure Data/Metrics Heart Failure Type: Diastolic Evidenced Based Beta Ivon Therapy Beta Ivon Therapy: Not Indicated SILVIA/ARB/ARNI Therapy SILVIA/ARB/ARNI Therapy: Not Indicated Aldosterone Antagonist Therapy Aldosterone Antagonist Therapy: Not Indicated Coding Level of Care Code 09162 Subseq Hosp Care Lvl 3 Diagnoses Acute on chronic diastolic (congestive) heart failure I50.33 Morbid obesity with BMI of 50.0-59.9, adult E66.01; Z68.43 On home oxygen therapy Z99.81 Chronic kidney disease (CKD) N18.31 Chronic kidney disease stage: stage 3 (moderate) Chronic kidney disease stage 3 subtype: stage 3a (GFR 45-59) COPD (chronic obstructive pulmonary disease) J44.1 COPD type: COPD with acute exacerbation (1) Chronic kidney disease (CKD) Chronic kidney disease stage: stage 3 (moderate) Chronic kidney disease stage 3 subtype: stage 3a (GFR 45-59) Qualified Code(s): N18.31 - Chronic kidney disease, stage 3a (2) COPD (chronic obstructive pulmonary disease) COPD type: COPD with acute exacerbation Qualified Code(s): J44.1 - Chronic obstructive pulmonary disease with (acute) exacerbation
--- NOTE | 2020-08-30 18:57 | Hospitalist Progress Note ---
Date of Service August 30, 2020 Assessment & Plan (1) Acute on chronic diastolic (congestive) heart failure: Likely near euvolemia today. STOP the IV bumex after tonight's dose. transition to bumex 4mg PO BID tomorrow. admission weight 146kg. dry weight ~120kg. down to 123kg today. cont free water restriction at 1800cc/day. continue metoprolol xl 200mg BID. check BMP am. daily standing weights. f/u with CHF clinic via [facility] post-discharge. Counseled regularly about salt & water intake. (2) Acute gouty arthritis: right first MTP joint, right mid-foot, and right ankle. uric acid >11 with high sed rate. IMPROVING/resolving with daily prednisone & colchicine. cont pred 5mg daily along with colchicine 0.6mg. symptoms/signs/labs all suggestive of acute gouty arthritis. no evidence of CPPD on x-rays. no fractures. possible that recent diuril may have precipitated the gout flare. diuril was stopped. (3) GI bleed: secondary to gastric AVMs as seen on EGD on 08/[address] Sandhu. s/p APC treatment to the AVMs. 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 Lesion was not biopsied during EGD. s/p colonoscopy - no source of bleeding. Eliquis resumed on 08/24. No bleeding since then with stable h/h since. Cont PPI twice daily. Repeat H/H in am for stability. (4) Acute blood loss anemia: s/p 4 units PRBCs earlier this stay. acute blood loss anemia was 2nd to upper GI bleeding as above. H/H in am. (5) Iron deficiency anemia: 08/17/20 -- ferritin level was 10. has been on once daily ferrous sulfate since then. will give 1 run of IV venofer in am prior to d/c. (6) Permanent atrial fibrillation: Rates controlled with toprol xl 200mg BID Cont eliquis 5mg BID for anticoagulation. (7) Acute kidney injury: Peak Cr 2.1 at admission. Cr today 0.8. RESOLVED. XIOMY was likely ATN from GI bleeding. (8) COPD (chronic obstructive pulmonary disease): No acute exacerbation during the stay. Cont usual inhalers. Cont NC O2 continuously. Wheezing is mild and relatively asymptomatic. (9) Chronic respiratory failure with hypoxia and hypercapnia: Stable O2 sats on 2-3 L of NC O2. Continue NC O2 during the day and BIPAP at HS. (10) Hyperlipidemia: Continue Atorvastatin (11) Hypertension: Controlled Cont current medications (12) Morbid obesity with BMI of 45.0-49.9, adult: BMI now 43 with copious diuresis (13) Insomnia: chronic, severe. has very poor sleep hygiene. spends many nights watching TV in bed, etc. trazodone 25mg HS was helpful; will continue (14) DVT prophylaxis: eliquis 5mg BID left message for today stating patient will be ready for [facility] tomorrow Admission and Anticipated Discharge Date Admission Date: August 16, 2020 Subjective feeling good right foot/ankle pain nearly resolved weight bearing fine; walked well with PT today dyspnea near baseline eating well slept well with trazodone last pm accepted at [facility] Review of Systems Constitutional: no fever, no chills, no fatigue and no anorexia Respiratory: + cough, + dyspnea on exertion (baseline) and + wheezing Cardiovascular: no chest pain Gastrointestinal: no abdominal pain, no nausea and no vomiting Physical Exam Constitutional: + morbidly obese; no acute distress and no altered mental status ENMT: external ear and nose normal, oropharynx normal Respiratory: no respiratory distress Auscultation: + wheezes (mild end expiratory); no rales Cardiovascular: Rate/Rhythm: regular rate and + irregularly irregular Heart Sounds: normal S1 and normal S2; no murmur Vessels: posterior tibial pulses present and dorsalis pedis pulses present; no JVD Extremities: + edema (trace b/l) Gastrointestinal (Abdomen): normal bowel sounds, soft, nontender, no hepatosplenomegaly Musculoskeletal: minimal focal swelling right first MTP, mid-foot, and ankle - no tenderness, ROM nl, no erythema Psychiatric: Orientation: alert and oriented x 3 Results & Data Results & Data ([facility]) Vital Signs (Past 12 Hours) Vital Signs Temp Pulse Resp BP Pulse Ox 08/30/20 15:21 36.4 C L 76 18 119/67 98 08/30/20 07:21 36.8 C 91 H 18 155/77 H 98 Laboratory Results Laboratory Results - last 24 hr 08/30/20 05:10 Sodium 139 Potassium 3.9 Chloride 100 Carbon Dioxide 39 H Anion Gap 0 L BUN 25 H Creatinine 0.96 Est Cr Clr Drug Dosing 84.6 Est GFR ( Amer) 90.5 Est GFR (Non-Af Amer) 78.1 BUN/Creatinine Ratio 26.0 H Glucose 117 H Calcium 8.6 PG Care Time/CCT Total # of Minutes Spent Total Time Spent with Patient: Total time spent is greater than 50% in coordination of care (as documented) at patient's floor/unit and/or counseling patient: Coding Level of Care Code 34512 Subseq Hosp Care Lvl 2 Diagnoses Acute on chronic diastolic (congestive) heart failure I50.33 Acute gouty arthritis M10.9 GI bleed K92.2 GI bleed type/associated pathology: unspecified gastrointestinal hemorrhage type Acute blood loss anemia D62 Iron deficiency anemia D50.9 Permanent atrial fibrillation I48.2 Acute kidney injury N17.9 COPD (chronic obstructive pulmonary disease) J44.1 COPD type: COPD with acute exacerbation Chronic respiratory failure with hypoxia and hypercapnia J96.11; J96.12 Hyperlipidemia E78.5 Hyperlipidemia type: unspecified Hypertension I10 Hypertension type: essential hypertension Morbid obesity with BMI of 45.0-49.9, adult E66.01; Z68.42 Insomnia G47.00 DVT prophylaxis Z29.9 (1) GI bleed GI bleed type/associated pathology: unspecified gastrointestinal hemorrhage type Qualified Code(s): K92.2 - Gastrointestinal hemorrhage, unspecified (2) Hyperlipidemia Hyperlipidemia type: unspecified Qualified Code(s): E78.5 - Hyperlipidemia, unspecified (3) COPD (chronic obstructive pulmonary disease) COPD type: COPD with acute exacerbation Qualified Code(s): J44.1 - Chronic obstructive pulmonary disease with (acute) exacerbation (4) Hypertension Hypertension type: essential hypertension Qualified Code(s): I10 - Essential (primary) hypertension
[2020-08-30] MEDS: ATORVASTATIN 40 MG TAB PO SCH (20:30)
[2020-08-30] MEDS: traZODone HCL 50 MG TAB PO SCH (20:30)
[2020-08-30] MEDS: TRIAMCINOLONE ACET NASAL SPRAY 10.8ML BTL SCH (20:31)
[2020-08-30] MEDS: ACETAMINOPHEN 325 MG TAB PO PRN (20:32)
[2020-08-31 06:12] LABS: Hematocrit (blood only) 33.4 % (42-52); Hemoglobin 10.1 g/dL (14.0-18.0)
[2020-08-31 06:37] LABS: BUN Creatinine Ratio 27.6 (10-20); Calcium 8.3 mg/dl (8.5-10.1); Creatinine Clr Calc Pharmacy 91.5 ml/min; Est GFR (African American) 98.3 ml/min; Est GFR (Non-African American) 84.8 ml/min; Potassium 3.8 mmol/L (3.5-5.1)
[2020-08-31] MEDS ORDERED: IRON SUCROSE 200 MG in 0.9 % SODIUM CHLORIDE 100 ML IV ONE (09:00)
[2020-08-31] MEDS ORDERED: BUMETANIDE 1 MG TAB PO SCH (09:00)
[2020-08-31] MEDS: FERROUS SULFATE 325 MG TAB PO SCH (09:09)
[2020-08-31] MEDS: METOPROLOL SUCC 50MG EXT REL TAB PO SCH (09:09)
[2020-08-31] MEDS: COLCHICINE 0.6 MG TAB PO SCH (09:09)
[2020-08-31] MEDS: PANTOprazole 40 MG TAB PO SCH (09:09)
[2020-08-31] MEDS: predniSONE 5 MG TAB PO SCH (09:10)
[2020-08-31] MEDS: VITAMIN B COMPLEX TAB PO SCH (09:10)
[2020-08-31] MEDS: POTASSIUM CHLORIDE CRTAB 20 MEQ TABCR PO SCH ×2 (09:10→13:57)
[2020-08-31] MEDS: APIXABAN 5 MG TABLET PO SCH (09:10)
[2020-08-31] MEDS: POLYETHYLENE (MIRALAX) 17 GM PACK PO SCH (09:10)
[2020-08-31] MEDS: DOCUSATE SODIUM 100 MG CAP PO SCH (09:27)
[2020-08-31] MEDS: UMECLIDINIUM/VILANTEROL 62.5/25MCG 7 PUFFS/INHALER INH SCH (09:37)
[2020-08-31] MEDS: FLUTICASONE FUROATE 100MCG 14 PUFFS/INHALER INH SCH (09:37)
--- NOTE | 2020-08-31 14:20 | Discharge Summary ---
Date of Service date of admission - August 16, 2020 date of discharge - August 31, 2020 Admission HPI Per Admitting Provider 75 YOM with past medical history of CAD with stent, permanent afib (on eliquis), FE deficient anemia, HFpEF, SHIRA, COPD, chronic home oxygen, Dig-toxicity, dialysis. Patient comes in today for complaints of blood in toilet, in his stool, and increase in shortness of breath as well as increase in lower extremity edema. He reports that this has been ongoing for the past 2 weeks, and up until then he was feeling much better, this is also reflected in his most recent cardiology note from May. The patient has been having complaints of blood in his lower GI tract since January. He did have a FNA (2018) for evaluation of submucosal gastric mass that was negative. He has been evaluated repeatedly for anemia in the outpatient setting prior to his January admission. In July 2018, he underwent an EGD & colonoscopy that did not indicate any sources of active bleeding, He then had a video capsule study that was unremarkable as well. He reportedly declined this service during his admission in April 2020. His bleeding is not associated with pain, denies hemorrhoids. He has not had any dark tarry stools or vomited any blood. He has noted some small clots in the toilet and on the toilet paper. His summation of amount of blood is difficult to discern. He is now short of breath when walking about 25 feet and his activity tolerance has gone down. He also endorses that he has not been urinating much after his Lasix dosing at home. Patient has a history of non-compliance and his does endorse dietary indiscretion with "junk food" and chips. The patient is overtly volume overloaded at this time and IS hemodynamically stable. He was noted to have a hemoglobin of 6.6 in the emergency room. He was typed and crossed, given 120 mg IV lasix, and 2 units of PRBC to be transfused upon my evaluation. Patient will be admitted to PCU for anemia, CHF exacerbation, GI consult. He will have iron studies in the morning, and will consult the CHF clinic and will hold his Eliquis for now. Patient was admitted in January 2020 for similar episode of anemia and concern for GI Bleeding. He received iron and 4 units PRBC. He suffered from an acute renal failure episode secondary to ATN and was supported with short term dialysis. He was also admitted in April for digoxin toxicity and above symptoms. His dig-toxicity was secondary to him taking this medication when it was discontinued. Principal Diagnosis 1. 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 acute/chronic diastolic CHF Discharge Exam Constitutional + morbidly obese; no acute distress and no altered mental status ENMT external ear and nose normal, oropharynx normal Respiratory no respiratory distress Auscultation: + wheezes (mild end expiratory); no rales Cardiovascular Rate/Rhythm: regular rate and + irregularly irregular Heart Sounds: normal S1 and normal S2; no murmur Vessels: posterior tibial pulses present and dorsalis pedis pulses present; no JVD Extremities: + edema (trace b/l) Gastrointestinal (Abdomen) normal bowel sounds, soft, nontender, no hepatosplenomegaly Skin venous stasis changes b/l shins Psychiatric Orientation: alert and oriented x 3 Discharge Data Allergies Allergy/AdvReac Type Severity Reaction Status Date / Time adhesive Allergy Mild TAPE-RASH Verified 08/16/20 13:31 oxycodone Allergy Mild RASH Verified 08/16/20 13:31 diltiazem Allergy Unknown Verified 08/16/20 13:31 [place] [facility] [place] - Lex Case [place] [facility] [place] - Sara MORRIS [facility] [place], [place] Procedures Performed Operation Date: 08/18/20 16:00 Actual Procedures p Small Bowel Enteroscopy EGD - Lex Raines Case, DO - Normal esophagus. - Small hiatal hernia. - Multiple recently bleeding angioectasias in the stomach. Treated with argon plasma coagulation (APC). 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 - Normal examined duodenum. - No specimens collected. s Colonoscopy - Lex Harper. Case, DO - Diverticulosis in the sigmoid colon. - Non-bleeding internal hemorrhoids. - No specimens collected. 4 units PRBCs IV venofer x 1 Ordered Studies 08/21/20 09:49 US venous doppler LE BI Routine -- no DVT b/l. Hospital Course (1) Acute on chronic diastolic (congestive) heart failure: Patient was markedly volume overloaded at time of hospital admission. Decompensation was secondary to excess dietary salt consumption +/- excess fluid consumption. A.fib was largely well controlled during his stay thus poor a.fib rate control likely not the culprit in his decompensation. He was aggressively diuresed his entire prolonged hospitalization. Admission weight 146kg. dry weight ~120kg. Discharge weight 122kg. He was counseled numerous times on the importance of water/salt restriction at home. He will continue metoprolol xl 200mg BID. He will continue bumex 4mg BID. f/u with CHF clinic [place] [facility] [place] (ALEXANDRA Chopra / Aris Luna MD). (2) Acute gouty arthritis: Right first MTP joint, right mid-foot, and right ankle. Uric acid >11 with high sed rate. Developed this acute gout attack in the latter half of the visit. IMPROVED/resolving with daily prednisone & colchicine. Continue prednise 5mg daily along with colchicine 0.6mg at discharge for short course of each. Symptoms/signs/labs all suggestive of acute gouty arthritis. No evidence of CPPD on x-rays. No fractures. It was possible that recent diuril usage may have precipitated the gout flare. Diuril was stopped once the gout was identified. (3) GI bleed: secondary to gastric AVMs as seen on EGD on 08/[address] Sandhu. s/p APC treatment to the AVMs. 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 Lesion was not biopsied during EGD and lesion was NOT bleeding. s/p colonoscopy - no source of bleeding. Eliquis resumed on 08/24. No bleeding since then with stable h/h after eliquis reinitiation. Cont PPI twice daily. Discharge hemoglobin - 10.1. (4) Acute blood loss anemia: s/p 4 units PRBCs early in stay for severe anemia. Lowest Hb was 6. acute blood loss anemia was 2nd to upper GI bleeding as above. Discharge Hb 10.1 (5) Iron deficiency anemia: 08/17/20 -- ferritin level was 10. Received oral iron replacement during the stay as well as 1 run of IV venofer. Continue oral iron at discharge; consider additional IV venofer as outpatient. Discharge Hb 10.1. (6) Permanent atrial fibrillation: Rates controlled nicely with toprol xl 200mg BID. Cont eliquis 5mg BID for anticoagulation. (7) Acute kidney injury: Peak Cr 2.1 at admission. Cr at discharge 0.8. XIOMY was likely ATN from GI bleeding. (8) COPD (chronic obstructive pulmonary disease): No acute exacerbation during the stay. Cont usual inhalers. Cont NC O2 continuously. Wheezing is mild and relatively asymptomatic. RIVERA was at baseline by time of discharge. (9) Chronic respiratory failure with hypoxia and hypercapnia: Stable O2 sats on 2-3 L of NC O2 throughout his stay. Continue NC O2 during the day and BIPAP at HS. Discharged to [facility] on 3 L NC O2 continuously. (10) Hyperlipidemia: Continue Atorvastatin (11) Hypertension: Controlled Cont current medications (12) Morbid obesity with BMI of 45.0-49.9, adult: BMI now 43 s/p copious diuresis (13) Insomnia: chronic, severe. has very poor sleep hygiene and sleep habits. spends many nights watching TV in bed, etc. trazodone 25mg HS was helpful and he did not have side effects. will continue at time of discharge. Total Time Total Time Spent Total Time Spent (In Minutes): 45 Total Time Includes: Examination of the Patient, Discharge Planning, Medication Reconciliation and Communication With Other Providers Discharge Plan Discharge Items Patient Disposition: Transfer Inpatient Rehab Fac Reason For Visit: GI BLEED, CHF EXACERBATION Discharge Diagnosis: 1. upper GI bleeding due to AVMs in stomach 2. acute blood loss anemia 2nd to #1 - 4 units PRBCs given 3. acute/chronic diastolic congestive heart failure; discharge weight = 122.1 kg (admit weight was 140 kg) 4. acute gouty arthritis of right ankle, right mid-foot, right great toe - improved with low-dose prednisone & colchicine 5. iron deficiency anemia due to #1 - IV iron given on 08/31/20 without incident 6. chronic insomnia 7. chronic hypoxic/hypercarbic respiratory failure 8. permanent a. fib 9. CAD 10. COPD Activity: Resume your previous activity Non-emergency contact: Primary Care Provider and Planning Aide Call non-emergency contact if: you have any medication questions, your symptoms worsen and you have a fever Follow-up/Referrals: Luis Manuel Mijares III, MD [Primary Care Provider] - (see Dr Mijares within 1 week of discharge from [facility] ) Sarah Beth Kahn PA-C [Physician [employer]ider] - 09/06/20 2:00 pm (Congestive Heart Failure Program Appointment Information Early follow up is essential to managing your heart failure. An appointment has been scheduled for you with the [facility] Heart Failure Program within 7 days of discharge. Anticipate this visit to be 30-60 minutes long. Please expect a fire patrol phone call from one of our nurses approximately 48 hours from discharge. They will also be placing an order for lab work to be completed 1-2 days prior to your heart failure follow up appointment. Please be sure to have this done so we can go over the results when you come in. Office Location The cardiology office building is located in front of the hospital at [address] Bring the following with you to your follow-up doctor appointments: Please bring your daily weight log any discharge paperwork all of your medication bottles with you to this visit. ) Diet: Low Sodium (2gm) Fluids: 1800ml (7 cups) Addtl Attending Provider Instructions: Mr Anderson, You were treated for the problems listed above in "discharge diagnoses." At time of discharge your weight is 122.1 kg (268 pounds), your hemoglobin is 10, and your creatinine (kidney number) is 0.8 (normal). You have lost a tremendous amount of fluid weight while here. This fluid weight was due to congestive heart failure. It is very important to restrict your total fluid intake each day to no more than about 1800cc, and to restrict your salt intake to no more than 2000mg each day. Fluid weight gain will occur easily with too much fluid and salt. Your hemoglobins (blood counts) remained stable following your gastrointestinal bleeding. Finally, your stay was complicated by acute gout of your right ankle, right mid- foot, and right big toe. This is improved. Recommendations - 1. daily standing scale weights 2. BMP in 2 days for stability of creatinine and electrolytes, then 5 days after that as well 3. CBC in 2 days for stability 4. oxygen via nasal cannula 3 liters continuously 5. BIPAP at bedtime please and with naps; current settings used at [facility] - 16/01 with 3 L O2 blended 6. follow-up appointments as listed in follow-up section Addtl Manager [employer] Provider Instructions: Call your Primary Care doctor or Planning Aide if any of the following symptoms or problems start or get worse: * Shortness of breath or difficulty breathing * Wake up at night short of breath * Chest pain * Cough * Swelling of your hands, feet, or legs * More fatigued or tired with your normal activity * Palpitations - sudden fast heart beats WEIGHT * Weigh yourself every morning after using the bathroom. * Use the same scale. * Wear the same amount of clothing. * Write your weight down on a chart. * Call your doctor if you gain more than 2-3 pounds in 1-2 days. This is typically a sign of the start of fluid retention from your congestive heart failure. Do not wait to call when the weight gain occurs. Best to call right away. MEDICATIONS * Use this discharge instruction sheet for medication instructions. * Take your medications at the time your doctor ordered. * Do not skip a dose of your medicines. * If you miss a dose of medicine, take it as soon as possible, but DO NOT DOUBLE A DOSE. * Read your medicine information when you get home. * Know all of the side effects of your medicine. If in doubt, ask your pharmacist * Call your Primary Care doctor's office if you have any side effects. * Be sure all of your doctors know what medicine and herbs you take (including cold, flu, and herbal medicine). Take the following with you to your follow-up doctor appointments: * Weight Chart * Medication List * List of questions Do not drink excessive alcohol, beer or wine. Pending Studies at Discharge: No Stand-Alone Forms: [facility] Skilled Items Patient informed of condition?: Yes DNR: No Discharge Level of Care: Acute rehab Communicable Disease: No Discharge Prognosis: Stable Lines: None Urinary Catheter: No Medications and DC Order Prescriptions: New metoprolol succinate 50 mg Tablet Extended Release 24 Hr 200 mg PO BID Qty: 240 RF: 2 ferrous sulfate 325 mg (65 mg iron) Tablet,Delayed Release (Dr/Ec) 325 mg PO QAM Qty: 30 RF: 2 trazodone 50 mg Tablet 25 mg PO HS Qty: 30 RF: 2 bumetanide 1 mg Tablet 4 mg PO BID17 Qty: 240 RF: 2 polyethylene glycol 3350 [Miralax] 17 gram Powder In Packet 17 g PO DAILY Qty: 1 RF: 0 (DME) Oxygen Home Liters Per Minute See Rx Instructions .ROUTE .MEDSUPPLY Qty: 1 RF: 0 Continued Eliquis 5 mg tablet 5 mg PO BID Qty: 180 RF: 3 omeprazole 40 mg capsule,delayed release(DR/EC) 40 mg PO BID RF: 0 triamcinolone acetonide [Nasacort] 55 mcg aerosol,spray 2 spray intranasal DAILY RF: 0 Calcium 600 + D(3) 600 mg calcium- 200 unit Capsule 1 cap PO BID RF: 0 cyanocobalamin (vitamin B-12) [Vitamin B-12] 1,000 mcg Tablet Extended Release 1,000 mcg PO QAM RF: 0 albuterol sulfate 90 mcg/actuation HFA aerosol inhaler 1 puff INHALATION Q6H PRN (Reason: Shortness Of Breath Or Wheezing) RF: 0 docusate sodium 100 mg capsule 100 mg PO BID PRN (Reason: constipation) RF: 0 multivitamin Tablet 1 tab PO QDD RF: 0 omega 4-gdk-yjz-fish oil [Fish Oil] 1,000 mg (120 mg-180 mg) Capsule 1 cap PO QAM RF: 0 atorvastatin 80 mg tablet 80 mg PO HS RF: 0 ipratropium-albuterol 0.5 mg-3 mg(2.5 mg base)/3 mL solution for nebulization 3 ml INHALATION BID RF: 0 Trelegy Ellipta 100-62.5-25 mcg blister with device 1 inh inhalation QAM RF: 0 Changed potassium chloride [Klor-Con 10] 10 mEq tablet extended release 20 meq PO BID Qty: 60 RF: 0 Discontinued furosemide 40 mg tablet 120 mg PO BID Qty: 540 RF: 3 atenolol 100 mg tablet 100 mg PO BID Qty: 180 RF: 3 naproxen sodium [Aleve] 220 mg capsule 440 mg PO BID RF: 0 Discharge Orders: Discharge Order (Routine); Ordered 08/31/20 Ordered By: Avila Martin/Other Patient Handouts: Taking a Diuretic, What Is Gout? Admission Data Admit Date/Time: 08/16/20 16:19 Attending Provider: Avila Abraham Admit Provider: Mahamed Acevedo Primary Care Provider: Luis Manuel Mijares III Other Providers: Mahamed Acevedo ; [facility],[employer] ; Lex Sandhu ; Sarah Beth Kahn ; Roland Bauer Coding Level of Care Code D/C Day Management >30 mins Diagnoses Acute on chronic diastolic (congestive) heart failure I50.33 Acute gouty arthritis M10.9 GI bleed K92.2 GI bleed type/associated pathology: unspecified gastrointestinal hemorrhage type Acute blood loss anemia D62 Iron deficiency anemia D50.9 Permanent atrial fibrillation I48.2 Acute kidney injury N17.9 COPD (chronic obstructive pulmonary disease) J44.1 COPD type: COPD with acute exacerbation Chronic respiratory failure with hypoxia and hypercapnia J96.11; J96.12 Hyperlipidemia E78.5 Hyperlipidemia type: unspecified Hypertension I10 Hypertension type: essential hypertension Morbid obesity with BMI of 45.0-49.9, adult E66.01; Z68.42 Insomnia G47.00
== END 2020-08-31 15:22 | DRG 377 ==
LOC: ED 11:47 → SUATTDRO 16:19 → 2S 16:19 → 2W 08-22 14:42 → 3E 08-28 18:07
DX: E78.5 Hyperlipidemia, unspecified; I13.0 Hypertensive heart and chronic kidney disease with heart failure and stage 1 through stage 4 chronic kidney disease, or unspecified chronic kidney disease; N17.0 Acute kidney failure with tubular necrosis; K57.30 Diverticulosis of large intestine without perforation or abscess without bleeding; Z88.8 Allergy status to other drugs, medicaments and biological substances; D50.9 Iron deficiency anemia, unspecified; K31.811 Angiodysplasia of stomach and duodenum with bleeding; J96.12 Chronic respiratory failure with hypercapnia; Z91.11 Patient's noncompliance with dietary regimen; Z87.891 Personal history of nicotine dependence; Z95.5 Presence of coronary angioplasty implant and graft; Z86.79 Personal history of other diseases of the circulatory system; R50.9 Fever, unspecified; D62 Acute posthemorrhagic anemia; Z99.81 Dependence on supplemental oxygen; T50.2X5A Adverse effect of carbonic-anhydrase inhibitors, benzothiadiazides and other diuretics, initial encounter; I50.33 Acute on chronic diastolic (congestive) heart failure; L03.116 Cellulitis of left lower limb; D13.1 Benign neoplasm of stomach; Z68.42 Body mass index [BMI] 45.0-49.9, adult; K22.70 Barrett's esophagus without dysplasia; G47.33 Obstructive sleep apnea (adult) (pediatric); Z79.899 Other long term (current) drug therapy; J96.11 Chronic respiratory failure with hypoxia; G47.00 Insomnia, unspecified; K21.9 Gastro-esophageal reflux disease without esophagitis; Z79.51 Long term (current) use of inhaled steroids; M10.271 Drug-induced gout, right ankle and foot; T39.315A Adverse effect of propionic acid derivatives, initial encounter; M62.830 Muscle spasm of back; Z79.01 Long term (current) use of anticoagulants; Z88.5 Allergy status to narcotic agent; M19.90 Unspecified osteoarthritis, unspecified site; I48.21 Permanent atrial fibrillation; L03.115 Cellulitis of right lower limb; J44.9 Chronic obstructive pulmonary disease, unspecified; Z91.048 Other nonmedicinal substance allergy status; K64.8 Other hemorrhoids; N18.30 Chronic kidney disease, stage 3 unspecified; Z79.1 Long term (current) use of non-steroidal anti-inflammatories (NSAID); T45.515A Adverse effect of anticoagulants, initial encounter; E66.01 Morbid (severe) obesity due to excess calories

== ENCOUNTER 2021-03-14 05:48 | Inpatient (IN) ==
--- NOTE | 2021-03-14 06:35 | Emergency Department Note ---
Impression & Plan Sepsis, Fever, COVID-19 ED Provider Note NAME: ALINA SHAH AGE: 75 SEX: M : 1945 ARRIVES VIA: Ambulance INFORMANT: Patient, ED PROVIDER(S): Olivier Willingham MD Chief Complaint: Weakness HPI: Patient does present as he required a lift assist after sliding out of bed. The patient denies any pain. The patient does have some chronic shortness of breath but denies any increasing lower extremity swelling as the patient does take diuretics. Patient did not take his morning medications but otherwise states he is compliant and no recent missed doses. Patient denies any fevers but was noted to be febrile. The patient was tachycardic and hypotensive. Patient does complain of being thirsty. Patient does have a known history of COPD and is on 4 L of chronic oxygen at all times. Patient last smoked in 1999. Patient denies any current chest pains. Patient denies any productive cough. The patient denies any known sick contacts or recent travel. The patient is vaccinated for Covid. Patient denies any abdominal pain nausea vomiting. Patient denies any head neck back abdomen chest or extremity pain. Patient denies any dizziness or lightheadedness. ROS: See HPI for pertinent positives and negatives. A total of 10 systems were reviewed and otherwise negative. Past medical history: See below Surgical history: See below Social history: See below Physical Exam: GENERAL: NAD, non-toxic. Nasal cannula in place. EYE EXAM: Normal conjunctiva. PERRL, no anisocoria and EOM's grossly intact w/o pain. OROPHARYNX: Dry mucus membranes. Missing central right maxillary incisor. NECK: Supple, no nuchal rigidity, no adenopathy, non-tender. No signs of meningismus. LUNGS: Bibasilar crackles. Normal chest wall mechanics. HEART: Irregularly irregular and tachycardic, no MRG. ABDOMEN: Abdomen soft, non-tender, normo-active bowel sounds, no masses, no rebound or guarding. BACK: No CVA TTP. SKIN: No rashes and no bruising. UPPER EXTREMITIES: Upper extremities are grossly normal. LOWER EXTREMITIES: Grossly normal, no edema. NEURO EXAM: A&O x3, cranial nerves II-XII grossly intact, normal speech, moves all 4 extremities on command w/o issue. Differential diagnoses: Infection, dehydration, metabolic abnormality, hypo/hyperglycemia, electrolyte disturbance, anemia, hypoxia, cardiac sources, intracerebral event, toxicologic, neurologic, as well as other pathologies. Course: Patient was seen and evaluated the bedside. Full history physical exam was performed. EKG interpreted by me Musa barba with RVR, ventricular rate 114, left axis deviation, normal QRS duration. Imaging Studies: See Below Cardiac monitoring: An order was placed for continuous cardiac monitoring. The monitor shows a rate of 112 with irregular irregular rhythm. MDM: Patient did present due to concern for weakness and initially was hypotensive tachycardic and febrile. Patient was noted to be hypoxic but this was off of his home O2. Patient's major complaint was weakness. Patient is vaccinated for COVID-19. Blood work was obtained along with blood cultures and a lactate. The patient was treated with IV fluids given the patient's tachycardia and hypotension with associated fever. Tylenol was given. Cefepime ordered along with MRSA and Covid swabs. Patient has a normal white count with mild anemia of 11. Platelet count is unremarkable. Patient's creatinine of 1.5. Lactate of 3. BNP is somewhat elevated at 1600. I did speak the on-call hospitalist Dr. Saavedra the patient was admitted to the medicine service. The patient was given 1500 cc total and not a 30 cc/kg bolus given the patient's known history of CHF and the patient did have improvement in his blood pressure with 1000 - 1500 mL. Positive for Covid negative for flu and RSV. Steroids ordered. Critical Care: I have personally spent 43 minutes of critical care time in direct management of this patient. This includes bedside care, interpretation of diagnostic studies, and testing, discussion with consultants, patient, and family members, and other require inpatient management activities. This 43 minutes is in excess of all separately billable procedures. Past Med/Surg History Medical History Acute blood loss anemia Acute exacerbation of CHF (congestive heart failure) Acute GI bleeding Acute hyperkalemia Acute hypotension Acute kidney injury XIOMY (acute kidney injury) Anemia Atrial fibrillation with slow ventricular response Walker esophagus Bilateral cellulitis of lower leg CAD (coronary artery disease) Cellulitis of right lower leg Closed right hip fracture (04/05/13) Coagulopathy COPD (chronic obstructive pulmonary disease) COPD exacerbation Current use of intermission coordinator anticoagulation Difficulty swallowing Digoxin toxicity Digoxin toxicity Edema of left upper arm Gastritis, erosive Gastrointestinal hemorrhage GERD (gastroesophageal reflux disease) Hip fracture (04/03/13) History of heart artery stent x1 2008 @ [facility] by Dr. Luna History of prostate cancer Hyperlipidemia Hyperlipidemia Leg edema On anticoagulant therapy Permanent atrial fibrillation Persistent atrial fibrillation S/P right hip fracture (04/05/13) Subepithelial gastric mass Symptomatic bradycardia Surgical History History of bilateral cataract extraction History of cardiac cath 2008 @ [facility] - HAD STENT X1 History of colonoscopy History of esophagogastroduodenoscopy (EGD) EUS 03/2019 [facility] EUS 11/21/18 Glidescope 4 with grade 1 view History of lumbar surgery hardware in place History of prostate biopsy malignant History of prostatectomy History of right shoulder replacement History of total left hip replacement History of total right hip replacement History of umbilical hernia repair Hx of nasal septoplasty Family History Uncle Prostate cancer Mother Septicemia Father COPD (chronic obstructive pulmonary disease) Pancreatic cancer Other No family history of adverse response to anesthesia Denies family history of Ovarian cancer Breast cancer Colorectal cancer Social History Smoking Status: Former smoker Tobacco Type: Cigarettes Age Started Using Tobacco: 17; Age Quit Using Tobacco: 54; packs per day: 1; Years Smoked: 37; Second Hand Exposure: No; Hx Alcohol Use: Yes Alcohol type: hard liquor Alcohol Intake Frequency Comment: 2-3 daily Hx Substance Use: No Preferred Language: Peruvian Communication Ability: Effective Visual Impairment: No Limitations Hearing Ability: Use of Hearing Aid Professor Of Political Science Required: No Beliefs That Will Affect Care: None marital status: Current Living Situation: Spouse 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 he does not wear for quick trips outside.) Allergies Allergies Allergy/AdvReac Type Severity Reaction Status Date / Time adhesive Allergy Mild TAPE-RASH Verified 02/22/21 10:01 oxycodone Allergy Mild RASH Verified 02/22/21 10:01 diltiazem Allergy Unknown Verified 02/22/21 10:01 Home Meds Home Medications Medication Instructions Recorded Confirmed calcium carbonate 600 mg-vitamin 1 cap PO BID 08/21/18 03/14/21 D3 5 mcg (200 unit) capsule (Calcium 600 + D(3)) cyanocobalamin (vitamin B-12) 1,000 mcg PO QAM 11/05/18 03/14/21 1,000 mcg tablet,extended release (Vitamin B-12 ER) albuterol sulfate 90 mcg/actuation 1 puff INHALATION Q6H PRN 04/12/20 03/14/21 aerosol inhaler triamcinolone acetonide 55 mcg 2 spray INTRANASAL DAILY 04/21/20 03/14/21 nasal spray aerosol (Nasacort) docusate sodium 100 mg capsule 100 mg PO BID PRN 05/18/20 03/14/21 ipratropium 0.5 mg-albuterol 3 mg 3 ml INHALATION BID 08/16/20 03/14/21 (2.5 mg base)/3 mL nebulization soln multivitamin 1 tab PO QDD 08/16/20 03/14/21 omega 8-xfp-fmz-fish oil 1,000 mg 1 cap PO QAM 08/16/20 03/14/21 (120 mg-180 mg) capsule (Fish Oil) acetaminophen 325 mg tablet 325 mg PO QID PRN 09/14/20 03/14/21 (Tylenol) ipratropium 20 mcg-albuterol 100 1 puff INHALATION BID PRN g 10/06/20 03/14/21 mcg/actuation mist for inhalation Previous Rx's Medication Instructions Recorded apixaban 5 mg tablet (Eliquis) 5 mg PO BID #180 tab 05/19/20 ferrous sulfate 325 mg (65 mg 325 mg PO QAM #30 tab 08/31/20 iron) tablet,delayed release metoprolol succinate 100 mg 200 mg PO BID 90 Days #360 tab 10/17/20 tablet,extended release 24 hr bumetanide 2 mg tablet 4 mg PO BID #360 tab 11/01/20 potassium chloride 10 mEq 10 meq PO DAILY #90 tab 11/01/20 tablet,extended release (Klor-Con) atorvastatin 80 mg tablet 80 mg PO HS #90 tab 12/27/20 omeprazole 40 mg capsule,delayed See Rx Instructions .ROUTE 12/27/20 release .COMPLEX #60 capsule metolazone 5 mg tablet 5 mg PO DAILY PRN #30 tab 01/25/21 fluticasone fur. 100 mcg-umeclid 1 inh INHALATION QAM #1 inhaler 03/06/21 62.5 mcg-vilant 25 mcg inhalat.powder (Trelegy Ellipta) Results & Data (ED) Vital Signs Vital Signs - 24 hr 03/14/21 05:58 03/14/21 06:00 03/14/21 06:05 Temperature Temperature Source Pulse Rate 113 H 112 H Pulse Rate [Finger] Pulse Rate from SpO2 Sensor 137 H 110 H Respiratory Rate 28 H 15 Blood Pressure Blood Pressure [Right Arm] Blood Pressure Mean Blood Pressure Mean [Right Arm] Blood Pressure Position Blood Pressure Position [Right Arm] Pulse Oximetry 89 L 89 L 84 L Oxygen Delivery Method Room Air Nasal Cannula Oxygen Flow Rate 0 Sepsis Recent Fever Within 48 Hours Sepsis New/Unexplained Change in Mental Status Sepsis Action Taken by Nursing Oxygen Flow Rate - Titration 6 Pulse Oximetry Post Tiitration 90 03/14/21 06:08 03/14/21 06:30 03/14/21 07:00 Temperature 37.8 C H Temperature Source Oral Pulse Rate 113 H 114 H 134 H Pulse Rate [Finger] 113 H Pulse Rate from SpO2 Sensor 119 H Respiratory Rate Blood Pressure 77/56 L Blood Pressure [Right Arm] 77/56 L Blood Pressure Mean 63 Blood Pressure Mean [Right Arm] 63 Blood Pressure Position Lying Blood Pressure Position [Right Arm] Sitting Pulse Oximetry 90 91 Oxygen Delivery Method Nasal Cannula Oxygen Flow Rate 6 Sepsis Recent Fever Within 48 Hours Yes Sepsis New/Unexplained Change in Mental Status N/A Sepsis Action Taken by Nursing No Action Required Oxygen Flow Rate - Titration Pulse Oximetry Post Tiitration 03/14/21 07:29 03/14/21 07:30 Temperature Temperature Source Pulse Rate 110 H Pulse Rate [Finger] Pulse Rate from SpO2 Sensor 111 H Respiratory Rate 26 H Blood Pressure 142/57 H Blood Pressure [Right Arm] Blood Pressure Mean 85 Blood Pressure Mean [Right Arm] Blood Pressure Position Blood Pressure Position [Right Arm] Pulse Oximetry 95 96 Oxygen Delivery Method Nasal Cannula Nasal Cannula Oxygen Flow Rate 4 4 Sepsis Recent Fever Within 48 Hours Sepsis New/Unexplained Change in Mental Status Sepsis Action Taken by Nursing Oxygen Flow Rate - Titration Pulse Oximetry Post Tiitration Home Medications Current Medication List: was personally reviewed by me Laboratory Data Attestation: I reviewed the patient's lab results. Result diagrams: 03/14/21 06:30 03/14/21 06:30 Lab Results 03/14/21 03/14/21 03/14/21 Range/Units 06:30 06:30 06:30 WBC 6.77 (4.8-10.8) K/uL RBC 3.44 L (4.7-6.1) M/uL Hgb 11.0 L (14.0-18.0) g/dL Hct 35.3 L (42-52) % MCV 102.6 H (80-100) fL MCH 32.0 (25-34) pg MCHC 31.2 L (32-36) g/dL RDW Std Deviation 72.4 H (36.4-46.3) fL RDW Coeff of Ezekiel 19.3 H (11.5-14.5) % Plt Count 243 (130-400) K/uL MPV 11.0 H (7.4-10.4) fL Immature Gran % (Auto) 0.3 % Neut % (Auto) 76.7 % Lymph % (Auto) 13.3 % Bath % (Auto) 9.5 % Eos % (Auto) 0.1 % Baso % (Auto) 0.1 % Neut # (Auto) 5.19 (1.4-6.5) K/uL Lymph # (Auto) 0.90 L (1.2-3.4) K/uL Bath # (Auto) 0.64 H (0.11-0.59) K/uL Eos # (Auto) 0.01 (0-0.5) K/uL Baso # (Auto) 0.01 (0-0.2) K/uL Immature Gran # (Auto) 0.02 (0.00-0.02) K/uL PT 11.9 (9.0-12.0) Seconds INR 1.2 H (0.9-1.1) APTT 28.5 (21.0-31.0) Seconds PTT Ratio 1.1 Sodium 141 (136-145) mmol/L Potassium 3.6 (3.5-5.1) mmol/L Chloride 100 (98-107) mmol/L Carbon Dioxide 33 H (21-32) mmol/L Anion Gap 8.0 (3-11) BUN 21 H (7-18) mg/dl Creatinine 1.58 H (0.6-1.4) mg/dl Est Cr Clr Drug Dosing 55.1 ml/min Est GFR ( Amer) 49.6 ml/min Est GFR (Non-Af Amer) 42.8 ml/min BUN/Creatinine Ratio 13.2 (10-20) Glucose 128 H (70-99) mg/dl Lactate (0.4-2.0) mmol/L Calcium 8.8 (8.5-10.1) mg/dl Magnesium 2.3 (1.8-2.4) mg/dl Total Bilirubin 0.6 (0.2-1) mg/dl AST 40 H (15-37) U/L ALT 17 (12-78) Alkaline Phosphatase 50 (45-117) U/L Troponin I < 0.015 (0-0.045) ng/ml NT-Pro-B Natriuret Pep 1618 H (0-900) pg/ml Total Protein 6.5 (6.4-8.2) gm/dl Albumin 2.5 L (3.4-5.0) gm/dl Globulin 4.0 (2.5-4.0) gm/dl Albumin/Globulin Ratio 0.6 L (0.9-2) Procalcitonin (0-0.5) ng/ml Nasal Screen MRSA (PCR) (Negative) SARS-CoV-2 (PCR) (Negative) Influenza Type A (PCR) (Neg) Influenza Type B (PCR) (Neg) RSV (RT-PCR) (Neg) 03/14/21 03/14/21 03/14/21 Range/Units 06:30 06:30 07:15 WBC (4.8-10.8) K/uL RBC (4.7-6.1) M/uL Hgb (14.0-18.0) g/dL Hct (42-52) % MCV (80-100) fL MCH (25-34) pg MCHC (32-36) g/dL RDW Std Deviation (36.4-46.3) fL RDW Coeff of Ezekiel (11.5-14.5) % Plt Count (130-400) K/uL MPV (7.4-10.4) fL Immature Gran % (Auto) % Neut % (Auto) % Lymph % (Auto) % Bath % (Auto) % Eos % (Auto) % Baso % (Auto) % Neut # (Auto) (1.4-6.5) K/uL Lymph # (Auto) (1.2-3.4) K/uL Bath # (Auto) (0.11-0.59) K/uL Eos # (Auto) (0-0.5) K/uL Baso # (Auto) (0-0.2) K/uL Immature Gran # (Auto) (0.00-0.02) K/uL PT (9.0-12.0) Seconds INR (0.9-1.1) APTT (21.0-31.0) Seconds PTT Ratio Sodium (136-145) mmol/L Potassium (3.5-5.1) mmol/L Chloride (98-107) mmol/L Carbon Dioxide (21-32) mmol/L Anion Gap (3-11) BUN (7-18) mg/dl Creatinine (0.6-1.4) mg/dl Est Cr Clr Drug Dosing ml/min Est GFR ( Amer) ml/min Est GFR (Non-Af Amer) ml/min BUN/Creatinine Ratio (10-20) Glucose (70-99) mg/dl Lactate 3.0 H* (0.4-2.0) mmol/L Calcium (8.5-10.1) mg/dl Magnesium (1.8-2.4) mg/dl Total Bilirubin (0.2-1) mg/dl AST (15-37) U/L ALT (12-78) Alkaline Phosphatase (45-117) U/L Troponin I (0-0.045) ng/ml NT-Pro-B Natriuret Pep (0-900) pg/ml Total Protein (6.4-8.2) gm/dl Albumin (3.4-5.0) gm/dl Globulin (2.5-4.0) gm/dl Albumin/Globulin Ratio (0.9-2) Procalcitonin 0.39 (0-0.5) ng/ml Nasal Screen MRSA (PCR) (Negative) SARS-CoV-2 (PCR) POSITIVE A* (Negative) Influenza Type A (PCR) Negative (Neg) Influenza Type B (PCR) Negative (Neg) RSV (RT-PCR) Negative (Neg) 03/14/21 Range/Units 07:15 WBC (4.8-10.8) K/uL RBC (4.7-6.1) M/uL Hgb (14.0-18.0) g/dL Hct (42-52) % MCV (80-100) fL MCH (25-34) pg MCHC (32-36) g/dL RDW Std Deviation (36.4-46.3) fL RDW Coeff of Ezekiel (11.5-14.5) % Plt Count (130-400) K/uL MPV (7.4-10.4) fL Immature Gran % (Auto) % Neut % (Auto) % Lymph % (Auto) % Bath % (Auto) % Eos % (Auto) % Baso % (Auto) % Neut # (Auto) (1.4-6.5) K/uL Lymph # (Auto) (1.2-3.4) K/uL Bath # (Auto) (0.11-0.59) K/uL Eos # (Auto) (0-0.5) K/uL Baso # (Auto) (0-0.2) K/uL Immature Gran # (Auto) (0.00-0.02) K/uL PT (9.0-12.0) Seconds INR (0.9-1.1) APTT (21.0-31.0) Seconds PTT Ratio Sodium (136-145) mmol/L Potassium (3.5-5.1) mmol/L Chloride (98-107) mmol/L Carbon Dioxide (21-32) mmol/L Anion Gap (3-11) BUN (7-18) mg/dl Creatinine (0.6-1.4) mg/dl Est Cr Clr Drug Dosing ml/min Est GFR ( Amer) ml/min Est GFR (Non-Af Amer) ml/min BUN/Creatinine Ratio (10-20) Glucose (70-99) mg/dl Lactate (0.4-2.0) mmol/L Calcium (8.5-10.1) mg/dl Magnesium (1.8-2.4) mg/dl Total Bilirubin (0.2-1) mg/dl AST (15-37) U/L ALT (12-78) Alkaline Phosphatase (45-117) U/L Troponin I (0-0.045) ng/ml NT-Pro-B Natriuret Pep (0-900) pg/ml Total Protein (6.4-8.2) gm/dl Albumin (3.4-5.0) gm/dl Globulin (2.5-4.0) gm/dl Albumin/Globulin Ratio (0.9-2) Procalcitonin (0-0.5) ng/ml Nasal Screen MRSA (PCR) Negative (Negative) SARS-CoV-2 (PCR) (Negative) Influenza Type A (PCR) (Neg) Influenza Type B (PCR) (Neg) RSV (RT-PCR) (Neg) Administered Medications Discontinued Medications Acetaminophen (Acetaminophen 500 Mg Tab) 1,000 mg PO NOW STA Stop: 03/14/21 06:43 Last Admin: 03/14/21 07:23 Dose: 1,000 mg Documented by: [id number] Sodium Chloride (Nss 1000ml) 1,000 mls @ 999 mls/hr IV .Q1H1M FREDDY Stop: 03/14/21 07:45 Last Infusion: 03/14/21 07:25 Dose: 0 mls/hr Documented by: [id number] Admin: 03/14/21 06:30 Dose: 999 mls/hr Documented by: [id number] Cefepime HCl (Maxipime) 2,000 mg in 20 mls @ 5 mls/min IV NOW STA; Protocol Stop: 03/14/21 06:43 Last Admin: 03/14/21 07:23 Dose: 5 mls/min Documented by: [id number] Sodium Chloride (Nss 1000ml) 500 mls @ 999 mls/hr IV .Q31M ONE Stop: 03/14/21 07:51 Last Infusion: 03/14/21 08:00 Dose: 0 mls/hr Documented by: [id number] Admin: 03/14/21 07:24 Dose: 999 mls/hr Documented by: [id number] Imaging Data Radiologist's Impression: Chest X-Ray 03/14/21 06:40 XR chest 1V portable CLINICAL HISTORY: SEPSIS TECHNIQUE: Single frontal radiograph of the chest was obtained. Comparison: Comparison is made to chest one view 08/26/2020 FINDINGS: Exam is limited by underpenetration. Cardiomegaly is noted. The lungs are clear. No evidence of pleural effusion or pneumothorax. IMPRESSION: Limited exam due to underpenetration. Cardiomegaly without definite pulmonary abnormality. ACT 112: Negative or not required by law. Electronically signed by: Jared Taveras M.D. 03/14/2021 7:05 AM Discharge Plan Visit Data Chief Complaint: Shortness of Breath/Dyspnea Stated Complaint: RESP DISTRESS ED Provider: Olivier Willingham Discharge Problem: Sepsis, Fever, COVID-19 Patient Disposition: Admitted As Inpatient Forms Stand Alone Forms: [facility] Prescriptions Prescriptions: No Action metoprolol succinate 100 mg tablet extended release 24 hr 200 mg PO BID 90 Days Qty: 360 RF: 3 omeprazole 40 mg capsule,delayed release(DR/EC) See Rx Instructions .ROUTE .COMPLEX Qty: 60 RF: 0 atorvastatin 80 mg tablet 80 mg PO HS Qty: 90 RF: 3 Trelegy Ellipta 100-62.5-25 mcg blister with device 1 inh inhalation QAM Qty: 1 RF: 5 Eliquis 5 mg tablet 5 mg PO BID Qty: 180 RF: 3 ipratropium-albuterol 20-100 mcg/actuation mist 1 puff inhalation BID PRN (Reason: Shortness Of Breath) RF: 0 acetaminophen [Tylenol] 325 mg tablet 325 mg PO QID PRN (Reason: Pain) RF: 0 bumetanide 2 mg tablet 4 mg PO BID Qty: 360 RF: 3 potassium chloride [Klor-Con 10] 10 mEq tablet extended release 10 meq PO DAILY Qty: 90 RF: 3 metolazone 5 mg tablet 5 mg PO DAILY PRN (Reason: Weight gain, dyspnea, edema. ) Qty: 30 RF: 0 triamcinolone acetonide [Nasacort] 55 mcg aerosol,spray 2 spray intranasal DAILY RF: 0 Calcium 600 + D(3) 600 mg calcium- 200 unit Capsule 1 cap PO BID RF: 0 cyanocobalamin (vitamin B-12) [Vitamin B-12] 1,000 mcg Tablet Extended Release 1,000 mcg PO QAM RF: 0 albuterol sulfate 90 mcg/actuation HFA aerosol inhaler 1 puff INHALATION Q6H PRN (Reason: Shortness Of Breath Or Wheezing) RF: 0 docusate sodium 100 mg capsule 100 mg PO BID PRN (Reason: constipation) RF: 0 multivitamin Tablet 1 tab PO QDD RF: 0 omega 7-xzu-pye-fish oil [Fish Oil] 1,000 mg (120 mg-180 mg) Capsule 1 cap PO QAM RF: 0 ipratropium-albuterol 0.5 mg-3 mg(2.5 mg base)/3 mL solution for nebulization 3 ml INHALATION BID RF: 0 ferrous sulfate 325 mg (65 mg iron) Tablet,Delayed Release (Dr/Ec) 325 mg PO QAM Qty: 30 RF: 2 Referrals Referrals: Luis Manuel Mijares III, MD [Primary Care Provider] - Discharge Problem: Sepsis Qualifiers: Sepsis type: sepsis due to unspecified organism Sepsis acute organ dysfunction status: unspecified Qualified Code(s): A41.9 - Sepsis, unspecified organism Fever Qualifiers: Fever type: unspecified Qualified Code(s): R50.9 - Fever, unspecified
[2021-03-14] MEDS ORDERED: CEFEPIME 2,000 MG/20 ML VIAL IV STA (06:40)
[2021-03-14] MEDS ORDERED: ACETAMINOPHEN 500 MG TAB PO STA (06:42)
[2021-03-14] MEDS ORDERED: SODIUM CHLORIDE 0.9% 1000ML 1,000 ML IV SCH (06:45)
[2021-03-14 07:03] LABS: Basophils # (auto) 0.01 K/uL (0-0.2); Basophils % (auto) 0.1 %; Eosinophils # (auto) 0.01 K/uL (0-0.5); Eosinophils % (auto) 0.1 %; Hematocrit (blood only) 35.3 % (42-52); Immature Granulocytes # (auto) 0.02 K/uL (0.00-0.02); Immature Granulocytes % (auto) 0.3 %; Lymphocytes % (auto) 13.3 %; Mean Corpuscular Hgb Conc 31.2 g/dL (32-36); Mean Corpuscular Volume 102.6 fL (80-100); Monocytes # (auto) 0.64 K/uL (0.11-0.59); Monocytes % (auto) 9.5 %; Neutrophils # (auto) 5.19 K/uL (1.4-6.5); Neutrophils % (auto) 76.7 %; Platelet Count 243 K/uL (130-400); RDW Coefficient of Variation 19.3 % (11.5-14.5); RDW Standard Deviation 72.4 fL (36.4-46.3); Red Blood Count 3.44 M/uL (4.7-6.1); White Blood Count 6.77 K/uL (4.8-10.8)
--- NOTE | 2021-03-14 07:06 | XRay Report ---
XR chest 1V portable CLINICAL HISTORY: SEPSIS TECHNIQUE: Single frontal radiograph of the chest was obtained. Comparison: Comparison is made to chest one view 08/26/2020 FINDINGS: Exam is limited by underpenetration. Cardiomegaly is noted. The lungs are clear. No evidence of pleur al effusion or pneumothorax. IMPRESSION: Limited exam due to underpenetration. Cardiomegaly without definite pulmonary abnormality. ACT 112: Negative or not required by law. Electronically signed by: Jared Taveras M.D. 03/14/2021 7:05 AM
[2021-03-14 07:16] LABS: INR 1.2 (0.9-1.1); Partial Thromboplastin Ratio 1.1; Partial Thromboplastin Time 28.5 Seconds (21.0-31.0); Prothrombin Time 11.9 Seconds (9.0-12.0)
[2021-03-14] MEDS ORDERED: SODIUM CHLORIDE 0.9% 1000ML 500 ML IV ONE (07:21)
[2021-03-14 07:32] LABS: Alanine Aminotransferase 17 (12-78); Albumin Level 2.5 gm/dl (3.4-5.0); Aspartate Aminotransferase 40 U/L (15-37); BUN Creatinine Ratio 13.2 (10-20); Blood Urea Nitrogen 21 mg/dl (7-18); Calcium 8.8 mg/dl (8.5-10.1); Carbon Dioxide 33 mmol/L (21-32); Chloride 100 mmol/L (98-107); Creatinine Clr Calc Pharmacy 55.1 ml/min; Est GFR (African American) 49.6 ml/min; Est GFR (Non-African American) 42.8 ml/min; Glucose 128 mg/dl (70-99); Magnesium 2.3 mg/dl (1.8-2.4); Potassium 3.6 mmol/L (3.5-5.1); Sodium 141 mmol/L (136-145)
[2021-03-14 07:37] LABS: Albumin Globulin Ratio 0.6 (0.9-2); Alkaline Phosphatase 50 U/L (45-117); Bilirubin,Total 0.6 mg/dl (0.2-1); NT Pro B Type Natriuretic Pept 1618 pg/ml (0-900); Total Protein 6.5 gm/dl (6.4-8.2); Troponin I < 0.015 ng/ml (0-0.045)
[2021-03-14 08:27] LABS: Influenza A virus by PCR Negative (Neg); Influenza B virus by PCR Negative (Neg); RSV by PCR Negative (Neg)
--- NOTE | 2021-03-14 08:49 | History & Physical Report ---
Date of Service March 14, 2021 Assessment & Plan (1) COVID-19: Plan: Mr. Anderson is a 75-year-old male with a history of CAD s/p Cardiac Catheterization 2008 performed for Exertional Angina Pectoris revealed 30%-40% Ostial LMCA, 20% distal LMCA, 30% LAD Diagonal, 20% Proximal RCA, 95% Mid RCA, and 20% Distal RCA stenoses. TAXUS 2.5 x 16 mm JANETH deployed in mid RCA. Postdilated with 3.25 mm balloon. Residual stenosis 0%. Stress Echocardiogram 2014 negative for evidence of myocardial ischemia. Patient also has a history of Hypertension, Permanent Atrial Fibrillation, COPD (on chronic O2 at 4L/min), Sleep Apnea (on BiPAP), Exertional Hypoxemia (on 6 min walk test August 2016), PAD, Chronic Diastolic CHF, and Dyslipidemia who presents to [facility] ER today with generalized weakness, hypotension, tachycardia, and fever which is most likely secondary to SARS CoV-2 infection. Patient does admit to a "croupy", non-productive cough over the past 2 to 3 days and has had chills at times but denies any fever. This morning he sat up to get out of bed and upon trying to stand he felt weak and could not support his own weight. He tried to sit back down but instead slid down off the side of the mattress. He was unable to get up off of the floor. He called for help from his , but she could not get him up either. Therefore, they called 911 and he was transported here. Patient has otherwise been at baseline. His appetite is typically poor, but that has not changed recently. As far as he knows his body weight is staying stable although he doesn't consistently weigh himself. Leg edema is minimal and his breathing is at baseline. He denies any SOB, unusual RIVERA, orthopnea, or PND. He denies any chest pain or angina pectoris. He denies any pleuritic chest pain, sputum production, or hemoptysis. No loss of sense of taste or smell. No urinary symptoms. He denies any diarrhea, nausea, or vomiting. He denies any recent sick contacts. When he initially arrived to ER, his blood pressure was 77/56, heart rate was in the 110 to 115 bpm range, and his temp is 37.8 degrees Celcius. Patient given IVF, and his BP has come up with current systolic BP's in the 120 to 142 mmHg range. His O2 saturations are staying in the mid to high 90s on 4 L oxygen via nasal cannula (he is chronically on this amount of oxygen at home). COVID test is positive. His initial serum lactate level was elevated at 3.0 mmol/L but repeat level is normal 1.3 mmol/L. Procalcitonin is normal at 0.39 ng/mL. CXR showed acute processes, but the film was under penetrated. Blood cultures have been drawn. He is hemodynamically stable at this time. Admitted with COVID-19 pneumonia and acute on chronic respiratory failure with hypoxia Recommend the followin. Admit to telemetry. 2. IV Dexamethasone 6 mg daily. 3. Continue supplemental O2 at 4 L/minute. May titrate to maintain SpO2 at 94% or higher. 4. Cover with IV Cefepime and IV Azithromycin. 5. Continue nebulized treatments. 6. Continue usual inhalers. 7. Incentive spirometer with flutter valve. (2) Severe sepsis: Plan: With hypotension, fever, tachycardia, and source of infection Covid-19 Lactate elevated now returned to normal after IV fluid resuscitation Procalcitonin within normal limits but could have bacterial pneumonia Continue cefepime and azithromycin Follow blood cultures (3) Sepsis: Plan: Blood cultures have been drawn and patient received a dose of IV Cefepime in the ER. -- Serum lactate level on repeat is within normal limits. Procalcitonin level is normal. -- Manage as outlined above. -- No longer hypotensive, he is hemodynamically stable. (4) Fever: Plan: -- Likely secondary to COVID. -- Tylenol as needed. (5) COPD (chronic obstructive pulmonary disease): Plan: -- Mange as outlined above. -- Continue usual inhalers and nebulizer treatments. -- Continue supplemental oxygen. -- IV Dexamethasone 6 mg daily. (6) Oxygen dependent: Plan: -- Chronically on O2 at 4L/min via NC. (7) CAD (coronary artery disease): Plan: Patient appears to be euvolemic at this time, and he has not had any angina pectoris or anginal equivalent symptoms. -- Resume Toprol XL 200 mg b.i.d. -- Continue Atorvastatin 80 mg daily. (8) Atrial fibrillation, permanent: Plan: Patient has permanent atrial fibrillation and typically has a slow ventricular response. His heart rate is likely elevated due to his acute illness and he missed his medications this morning. -- Resume Toprol XL 200 mg b.i.d.. -- Continue Eliquis 5 mg b.i.d. (9) Chronic diastolic congestive heart failure: Plan: He currently appears euvolemic. -- Continue Bumex 4 mg b.i.d.. -- Monitor I&O's, daily body weights. -- 2 gram low sodium, heart healthy diet. History of Present Illness Chief Complaint: 1. Weakness. 2. Hypotension. 3. COVID +. Primary Care Provider: Luis Manuel Mijares MD Mr. Anderson is a 75-year-old male with a history of CAD s/p Cardiac Catheterization 2008 performed for Exertional Angina Pectoris revealed 30%-40% Ostial LMCA, 20% distal LMCA, 30% LAD Diagonal, 20% Proximal RCA, 95% Mid RCA, and 20% Distal RCA stenoses. TAXUS 2.5 x 16 mm JANETH deployed in mid RCA. Postdilated with 3.25 mm balloon. Residual stenosis 0%. Stress Echocardiogram 2013 negative for evidence of myocardial ischemia. Patient also has a history of Hypertension, Permanent Atrial Fibrillation, COPD (on chronic O2 at 4L/min), Sleep Apnea (on BiPAP), Exertional Hypoxemia (on 6 min walk test August 2016), PAD, Chronic Diastolic CHF, and Dyslipidemia who presents to [facility] ER today with generalized weakness, hypotension, and tachycardia. Patient does admit to a "croupy", non-productive cough over the past 2 to 3 days and has had chills at times but denies any fever. This morning he sat up to get out of bed and upon trying to stand he felt weak and could not support his own weight. He tried to sit back down but instead slid down off the side of the mattress. He was unable to get up off of the floor. He called for help from his , but she could not get him up either. Therefore, they called 911 and he was transported here. Patient has otherwise been at baseline. His appetite is typically poor, but that has not changed recently. As far as he knows his body weight is staying stable although he doesn't consistently weigh himself. Leg edema is minimal and his breathing is at baseline. He denies any SOB, unusual RIVERA, orthopnea, or PND. He denies any chest pain or angina pectoris. He denies any pleuritic chest pain, sputum production, or hemoptysis. No loss of sense of taste or smell. No urinary symptoms. He denies any diarrhea, nausea, or vomiting. He denies any recent sick contacts. Please note the patient did not take any of his home medications today. Allergies Allergy/AdvReac Type Severity Reaction Status Date / Time adhesive Allergy Mild TAPE-RASH Verified 02/22/21 10:01 oxycodone Allergy Mild RASH Verified 02/22/21 10:01 diltiazem Allergy Unknown Verified 02/22/21 10:01 Home Medications Medication Instructions Recorded Confirmed Type calcium carbonate 600 mg-vitamin 1 cap PO BID 08/21/18 03/14/21 History D3 5 mcg (200 unit) capsule (Calcium 600 + D(3)) cyanocobalamin (vitamin B-12) 1,000 mcg PO QAM 11/05/18 03/14/21 History 1,000 mcg tablet,extended release (Vitamin B-12 ER) albuterol sulfate 90 mcg/actuation 1 puff INHALATION Q6H PRN 04/12/20 03/14/21 History aerosol inhaler triamcinolone acetonide 55 mcg 2 spray INTRANASAL DAILY 04/21/20 03/14/21 History nasal spray aerosol (Nasacort) docusate sodium 100 mg capsule 100 mg PO BID PRN 05/18/20 03/14/21 History apixaban 5 mg tablet (Eliquis) 5 mg PO BID #180 tab 05/19/20 03/14/21 Rx ipratropium 0.5 mg-albuterol 3 mg 3 ml INHALATION BID 08/16/20 03/14/21 History (2.5 mg base)/3 mL nebulization soln multivitamin 1 tab PO QDD 08/16/20 03/14/21 History omega 2-nkc-quj-fish oil 1,000 mg 1 cap PO QAM 08/16/20 03/14/21 History (120 mg-180 mg) capsule (Fish Oil) ferrous sulfate 325 mg (65 mg 325 mg PO QAM #30 tab 08/31/20 03/14/21 Rx iron) tablet,delayed release acetaminophen 325 mg tablet 325 mg PO QID PRN 09/14/20 03/14/21 History (Tylenol) ipratropium 20 mcg-albuterol 100 1 puff INHALATION BID PRN g 10/06/20 03/14/21 History mcg/actuation mist for inhalation metoprolol succinate 100 mg 200 mg PO BID 90 Days #360 tab 10/17/20 03/14/21 Rx tablet,extended release 24 hr bumetanide 2 mg tablet 4 mg PO BID #360 tab 11/01/20 03/14/21 Rx potassium chloride 10 mEq 10 meq PO DAILY #90 tab 11/01/20 03/14/21 Rx tablet,extended release (Klor-Con) atorvastatin 80 mg tablet 80 mg PO HS #90 tab 12/27/20 03/14/21 Rx omeprazole 40 mg capsule,delayed See Rx Instructions .ROUTE 12/27/20 03/14/21 Rx release .COMPLEX #60 capsule metolazone 5 mg tablet 5 mg PO DAILY PRN #30 tab 01/25/21 03/14/21 Rx fluticasone fur. 100 mcg-umeclid 1 inh INHALATION QAM #1 inhaler 03/06/21 03/14/21 Rx 62.5 mcg-vilant 25 mcg inhalat.powder (Trelegy Ellipta) Past Med/Surg History Medical History Acute blood loss anemia Acute exacerbation of CHF (congestive heart failure) Acute GI bleeding Acute hyperkalemia Acute hypotension Acute kidney injury XIOMY (acute kidney injury) Anemia Atrial fibrillation with slow ventricular response Walker esophagus Bilateral cellulitis of lower leg CAD (coronary artery disease) Cellulitis of right lower leg Closed right hip fracture (04/05/13) Coagulopathy COPD (chronic obstructive pulmonary disease) COPD exacerbation Current use of usp anticoagulation Difficulty swallowing Digoxin toxicity Digoxin toxicity Edema of left upper arm Gastritis, erosive Gastrointestinal hemorrhage GERD (gastroesophageal reflux disease) Hip fracture (04/03/13) History of heart artery stent x1 2009 @ [facility] by Dr. Luna History of prostate cancer Hyperlipidemia Hyperlipidemia Leg edema On anticoagulant therapy Permanent atrial fibrillation Persistent atrial fibrillation S/P right hip fracture (04/05/13) Subepithelial gastric mass Symptomatic bradycardia Surgical History History of bilateral cataract extraction History of cardiac cath 2008 @ [facility] - HAD STENT X1 History of colonoscopy History of esophagogastroduodenoscopy (EGD) EUS 03/2019 [facility] EUS 11/21/18 Glidescope 4 with grade 1 view History of lumbar surgery hardware in place History of prostate biopsy malignant History of prostatectomy History of right shoulder replacement History of total left hip replacement History of total right hip replacement History of umbilical hernia repair Hx of nasal septoplasty Family History Uncle Prostate cancer Mother Septicemia Father COPD (chronic obstructive pulmonary disease) Pancreatic cancer Other No family history of adverse response to anesthesia Denies family history of Ovarian cancer Breast cancer Colorectal cancer Social History Smoking Status: Former smoker Tobacco Type: Cigarettes Age Started Using Tobacco: 17; Age Quit Using Tobacco: 54; packs per day: 1; Years Smoked: 37; Second Hand Exposure: No; Hx Alcohol Use: Yes Alcohol type: hard liquor Alcohol Intake Frequency Comment: 2-3 daily Hx Substance Use: No Preferred Language: Malian Communication Ability: Effective Visual Impairment: No Limitations Hearing Ability: Use of Hearing Aid Council Member Required: No Beliefs That Will Affect Care: None marital status: Current Living Situation: Spouse 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 HEENT: Head is atraumatic, normocephalic. EOM's intact. Facies symmetric. No perioral cyanosis. NECK: No JVD. JVP is not elevated. Carotid upstrokes are + 2 bilaterally without obvious bruits. CHEST/LUNGS: Diminished breath sounds throughout, scattered late expiratory wheezes. No rales or crackles. CVS: S1 and S2 are irregularly irregular and tachycardic at a rate of approximately 110 bpm. No obvious murmurs, gallops, or rubs. PMI is nonpalpable. No lifts, heaves, or thrills. No abdominal aortic or renal bruits. ABDOMINAL EXAM: Bowel sounds are present. No masses, organomegaly, or tenderness. EXTREMITIES: No clubbing or cyanosis. Pigmentation change of bilateral lower extremities, trace ankle edema bilaterally. Intact posterior radial pulses bilaterally. NEUROLOGIC EXAM: Patient is awake, alert, and oriented. Pleasant and cooperative. Answers questions appropriately. Speech is clear. Normal movement in all 4 extremities. Gait pattern not assessed. monitor tech shows atrial fibrillation with rates between 100 to 110 beats per minute. Results & Data Results & Data ([facility]) Vital Signs (Past 12 Hours) Vital Signs Temp Pulse Pulse Resp BP BP Pulse Ox 03/14/21 07:30 110 H 26 H 142/57 H 96 03/14/21 07:29 95 03/14/21 07:00 134 H 03/14/21 06:30 114 H 91 03/14/21 06:08 37.8 C H 113 H 113 H 77/56 L 77/56 L 90 03/14/21 06:05 84 L 03/14/21 06:00 112 H 15 89 L 03/14/21 05:58 113 H 28 H 89 L Laboratory Results Laboratory Results - last 24 hr 03/14/21 03/14/21 03/14/21 06:30 06:30 06:30 WBC 6.77 RBC 3.44 L Hgb 11.0 L Hct 35.3 L MCV 102.6 H MCH 32.0 MCHC 31.2 L RDW Std Deviation 72.4 H RDW Coeff of Ezekiel 19.3 H Plt Count 243 MPV 11.0 H Immature Gran % (Auto) 0.3 Neut % (Auto) 76.7 Lymph % (Auto) 13.3 [place] % (Auto) 9.5 Eos % (Auto) 0.1 Baso % (Auto) 0.1 Neut # (Auto) 5.19 Lymph # (Auto) 0.90 L [place] # (Auto) 0.64 H Eos # (Auto) 0.01 Baso # (Auto) 0.01 Immature Gran # (Auto) 0.02 PT 11.9 INR 1.2 H APTT 28.5 PTT Ratio 1.1 Sodium 141 Potassium 3.6 Chloride 100 Carbon Dioxide 33 H Anion Gap 8.0 BUN 21 H Creatinine 1.58 H Est Cr Clr Drug Dosing 55.1 Est GFR ( Amer) 49.6 Est GFR (Non-Af Amer) 42.8 BUN/Creatinine Ratio 13.2 Glucose 128 H Lactate Calcium 8.8 Magnesium 2.3 Total Bilirubin 0.6 AST 40 H ALT 17 Alkaline Phosphatase 50 Troponin I < 0.015 NT-Pro-B Natriuret Pep 1618 H Total Protein 6.5 Albumin 2.5 L Globulin 4.0 Albumin/Globulin Ratio 0.6 L Procalcitonin Nasal Screen MRSA (PCR) SARS-CoV-2 (PCR) Influenza Type A (PCR) Influenza Type B (PCR) RSV (RT-PCR) 03/14/21 03/14/21 03/14/21 06:30 06:30 07:15 WBC RBC Hgb Hct MCV MCH MCHC RDW Std Deviation RDW Coeff of Ezekiel Plt Count MPV Immature Gran % (Auto) Neut % (Auto) Lymph % (Auto) [place] % (Auto) Eos % (Auto) Baso % (Auto) Neut # (Auto) Lymph # (Auto) [place] # (Auto) Eos # (Auto) Baso # (Auto) Immature Gran # (Auto) PT INR APTT PTT Ratio Sodium Potassium Chloride Carbon Dioxide Anion Gap BUN Creatinine Est Cr Clr Drug Dosing Est GFR ( Amer) Est GFR (Non-Af Amer) BUN/Creatinine Ratio Glucose Lactate 3.0 H* Calcium Magnesium Total Bilirubin AST ALT Alkaline Phosphatase Troponin I NT-Pro-B Natriuret Pep Total Protein Albumin Globulin Albumin/Globulin Ratio Procalcitonin 0.39 Nasal Screen MRSA (PCR) SARS-CoV-2 (PCR) POSITIVE A* Influenza Type A (PCR) Negative Influenza Type B (PCR) Negative RSV (RT-PCR) Negative 03/14/21 03/14/21 07:15 09:27 WBC RBC Hgb Hct MCV MCH MCHC RDW Std Deviation RDW Coeff of Ezekiel Plt Count MPV Immature Gran % (Auto) Neut % (Auto) Lymph % (Auto) [place] % (Auto) Eos % (Auto) Baso % (Auto) Neut # (Auto) Lymph # (Auto) [place] # (Auto) Eos # (Auto) Baso # (Auto) Immature Gran # (Auto) PT INR APTT PTT Ratio Sodium Potassium Chloride Carbon Dioxide Anion Gap BUN Creatinine Est Cr Clr Drug Dosing Est GFR ( Amer) Est GFR (Non-Af Amer) BUN/Creatinine Ratio Glucose Lactate 1.3 Calcium Magnesium Total Bilirubin AST ALT Alkaline Phosphatase Troponin I NT-Pro-B Natriuret Pep Total Protein Albumin Globulin Albumin/Globulin Ratio Procalcitonin Nasal Screen MRSA (PCR) Negative SARS-CoV-2 (PCR) Influenza Type A (PCR) Influenza Type B (PCR) RSV (RT-PCR) Diagnostic Findings CXR 03/14/21: Exam is limited by under penetration. Cardiomegaly is noted. The lungs are clear. No evidence of pleural effusion or pneumothorax. IMPRESSION: -- Limited exam due to under penetration. -- Cardiomegaly without definite pulmonary abnormality. Medications Administered Medications calcium carbonate 600 mg-vitamin D3 5 mcg (200 unit) capsule (Calcium 600 + D(3)) 1 cap PO BID 08/21/18 [History Confirmed 03/14/21] cyanocobalamin (vitamin B-12) 1,000 mcg tablet,extended release (Vitamin B-12 ER) 1,000 mcg PO QAM 11/05/18 [History Confirmed 03/14/21] albuterol sulfate 90 mcg/actuation aerosol inhaler 1 puff INHALATION Q6H PRN 0 04/12/20 [History Confirmed 03/14/21] triamcinolone acetonide 55 mcg nasal spray aerosol (Nasacort) 2 spray INTRANASAL DAILY 04/21/20 [History Confirmed 03/14/21] docusate sodium 100 mg capsule 100 mg PO BID PRN 05/18/20 [History Confirmed 03/14/21] apixaban 5 mg tablet (Eliquis) 5 mg PO BID #180 tab 05/19/20 [Rx Confirmed 03/14/21] ipratropium 0.5 mg-albuterol 3 mg (2.5 mg base)/3 mL nebulization soln 3 ml INHALATION BID 08/16/20 [History Confirmed 03/14/21] multivitamin 1 tab PO QDD 08/16/20 [History Confirmed 03/14/21] omega 3-inn-gqw-fish oil 1,000 mg (120 mg-180 mg) capsule (Fish Oil) 1 cap PO QAM 08/16/20 [History Confirmed 03/14/21] ferrous sulfate 325 mg (65 mg iron) tablet,delayed release 325 mg PO QAM #30 tab 08/31/20 [Rx Confirmed 03/14/21] acetaminophen 325 mg tablet (Tylenol) 325 mg PO QID PRN 09/14/20 [History Confirmed 03/14/21] ipratropium 20 mcg-albuterol 100 mcg/actuation mist for inhalation 1 puff INHALATION BID PRN g 10/06/20 [History Confirmed 03/14/21] metoprolol succinate 100 mg tablet,extended release 24 hr 200 mg PO BID 90 Days #360 tab 10/17/20 [Rx Confirmed 03/14/21] bumetanide 2 mg tablet 4 mg PO BID #360 tab 11/01/20 [Rx Confirmed 03/14/21] potassium chloride 10 mEq tablet,extended release (Klor-Con) 10 meq PO DAILY #90 tab 11/01/20 [Rx Confirmed 03/14/21] atorvastatin 80 mg tablet 80 mg PO HS #90 tab 12/27/20 [Rx Confirmed 03/14/21] omeprazole 40 mg capsule,delayed release See Rx Instructions .ROUTE .COMPLEX #60 capsule 12/27/20 [Rx Confirmed 03/14/21] metolazone 5 mg tablet 5 mg PO DAILY PRN #30 tab 01/25/21 [Rx Confirmed 03/14/21] fluticasone fur. 100 mcg-umeclid 62.5 mcg-vilant 25 mcg inhalat.powder (Trelegy Ellipta) 1 inh INHALATION QAM #1 inhaler 03/06/21 [Rx Confirmed 03/14/21] Home Medications Pantoprazole Sodium (Pantoprazole 40 Mg Tab) 40 mg PO DAILY FREDDY Stop: 04/13/21 09:29 Code Status & VTE Plan Code Status Full Code VTE Prophylaxis Plan VTE Prophylaxis will be ordered: Yes Supervising Physician Co-Signing Physician Notes ALEXANDRA Supervision Note: I personally saw and examined the patient. I verified all blancas points and agree with ALEXANDRA Cantu with the following exceptions and/or additions: This patient is a 75-year-old male with history of COPD, CAD, permanent atrial fibrillation on Eliquis, CKD stage III, chronic diastolic CHF, and iron deficiency anemia who presents to the ER with weakness and was found to be febrile and with a cough for 2 to 3 days, with some tachypnea in the setting of chronic respiratory failure with hypoxia. He was on his usual 4 L but seemed to be working harder to breathe. He was found to have a positive Covid-19 test. He was mildly hypotensive which responded to a bolus of crystalloid fluid. He is fully vaccinated but had not yet received his booster shot as he was having trouble getting scheduled. History and ROS reviewed as above Vitals reviewed Gen: [AAOx3, NAD, obese HEENT: Anicteric sclerae, EOMI CV: Irregularly irregular no mgr nl S1S2 Pulm: [Diffuse expiratory wheezes, rhonchi at the bases Abd: +BS soft NT ND no masses or hernias Ext: Trace peripheral edema, 2+ DP pulses Skin: No rashes, warm/dry Neuro: Full strength throughout Laboratory values reviewed Chest x-ray image personally reviewed ECG with atrial fibrillation 75-year-old male with history as above here with Covid-19 pneumonia and acute on chronic respiratory failure with hypoxia, as well as severe sepsis -Continue antibiotics, Decadron, add on Remdesivir as he is within the first week of illness -Supplemental O2 to keep pulse ox greater than 90% Supportive care Add incentive spirometry and flutter valve Follow CBC, CMP, CRP in the morning PG Care Time/CCT Total # of Minutes Spent Total Time Spent with Patient: Total time spent is greater than 50% in coordination of care (as documented) at patient's floor/unit and/or counseling patient:40 Coding Level of Care Code 31066 Initial Inpt Care Lvl 3 Diagnoses COVID-19 U07.1 Sepsis A41.9 Sepsis acute organ dysfunction status: unspecified Sepsis type: sepsis due to unspecified organism Fever R50.9 Fever type: unspecified COPD (chronic obstructive pulmonary disease) J44.1 COPD type: COPD with acute exacerbation Oxygen dependent Z99.81 CAD (coronary artery disease) I25.10 Associated angina: without angina Coronary Disease-Associated Artery/Lesion type: [place] artery [place] vs. transplanted heart: [place] heart Atrial fibrillation, permanent I48.21 Chronic diastolic congestive heart failure I50.32 Severe sepsis A41.9; R65.20 Time Spent (min) 65 (1) Fever Fever type: unspecified Qualified Code(s): R50.9 - Fever, unspecified (2) CAD (coronary artery disease) Associated angina: without angina Coronary Disease-Associated Artery/Lesion type: [place] artery [place] vs. transplanted heart: [place] heart Qualified Code(s): I25.10 - Atherosclerotic heart disease of [place] coronary artery without angina pectoris (3) Sepsis Sepsis acute organ dysfunction status: unspecified Sepsis type: sepsis due to unspecified organism Qualified Code(s): A41.9 - Sepsis, unspecified organism (4) COPD (chronic obstructive pulmonary disease) COPD type: COPD with acute exacerbation Qualified Code(s): J44.1 - Chronic obstructive pulmonary disease with (acute) exacerbation
[2021-03-14 09:05] LABS: SARS CoV2 RNA(COVID-19) InHosp POSITIVE (Negative)
[2021-03-14] MEDS ORDERED: dexAMETHasone**PF** 10 MG/ML VIAL IV ONE (09:34)
[2021-03-14] MEDS: PANTOprazole 40 MG TAB PO SCH (10:33)
[2021-03-14] MEDS ORDERED: MAGNESIUM HYDROXIDE SUSP 30 ML UDC PO PRN (11:55)
[2021-03-14] MEDS ORDERED: IPRATROPIUM BROMIDE/ALBUTEROL respimat INH INH PRN (11:55)
[2021-03-14] MEDS ORDERED: ONDANSETRON INJ 2 MG/ML 2 ML VIAL IV PRN (11:55)
[2021-03-14] MEDS ORDERED: ALUMINUM/MAGNESIUM SUSP 30 ML UDC PO PRN (11:55)
[2021-03-14] MEDS ORDERED: ZOLPIDEM TARTRATE 5 MG TAB PO PRN (11:55)
[2021-03-14] MEDS ORDERED: ALBUTEROL HFA 8 GM INHALER INH PRN (11:55)
[2021-03-14] MEDS ORDERED: CEFEPIME 1,000 MG in SYRINGE 0 ML IV SCH (11:55)
[2021-03-14] MEDS ORDERED: ACETAMINOPHEN 325 MG TAB PO PRN (11:55)
[2021-03-14] MEDS: ALBUT/IPRATROP 3MG/0.5MG NEB 3 ML VIAL INH SCH ×2 (12:37→18:34)
[2021-03-14] MEDS ORDERED: Albuterol HFA 8 GM Inhaler (Combivent Respimat P&T Subs) INH PRN (12:55)
[2021-03-14] MEDS ORDERED: Ipratropium HFA Inhaler (Combivent Respimat P&T Subs) INH PRN (12:56)
[2021-03-14] MEDS: AZITHROMYCIN 500 MG in DEXTROSE 5% 250 ML IV SCH (13:45)
[2021-03-14] MEDS: FLUTICASONE FUROATE 100MCG 14 PUFFS/INHALER INH SCH (13:45)
[2021-03-14] MEDS: UMECLIDINIUM/VILANTEROL 62.5/25MCG 7 PUFFS/INHALER INH SCH (13:45)
[2021-03-14] MEDS: BUMETANIDE 1 MG TAB PO SCH ×2 (14:49→21:30)
[2021-03-14] MEDS: APIXABAN 5 MG TABLET PO SCH ×2 (14:49→21:28)
[2021-03-14] MEDS: METOPROLOL SUCC 50MG EXT REL TAB PO SCH ×2 (14:49→21:28)
[2021-03-14] MEDS: MULTIVITAMIN TAB PO SCH (17:05)
[2021-03-14] MEDS: CALCIUM 600MG + VIT D 400 IU TAB PO SCH (21:27)
[2021-03-14] MEDS: ATORVASTATIN 40 MG TAB PO SCH (21:28)
[2021-03-14] MEDS ORDERED: REMDESIVIR 200 MG in SODIUM CHLORIDE 0.9% 210 ML IV ONE (23:00)
[2021-03-14] MEDS: SODIUM CHLORIDE 0.9% 10ML FLUSH IV SCH (23:22)
[2021-03-14] MEDS: CEFEPIME 2,000 MG in SYRINGE 0 ML IV SCH (23:22)
[2021-03-15] MEDS ORDERED: SODIUM CHLORIDE 0.9% 1000ML 500 ML IV ONE (00:13)
[2021-03-15 06:34] LABS: Hematocrit (blood only) 35.5 % (42-52); Immature Granulocytes # (auto) 0.01 K/uL (0.00-0.02); Immature Granulocytes % (auto) 0.2 %; Lymphocytes # (auto) 0.57 K/uL (1.2-3.4); Lymphocytes % (auto) 11.2 %; Mean Corpuscular Hemoglobin 32.6 pg (25-34); Mean Corpuscular Volume 105.3 fL (80-100); Mean Platelet Volume 10.5 fL (7.4-10.4); Monocytes # (auto) 0.41 K/uL (0.11-0.59); Monocytes % (auto) 8.1 %; Neutrophils # (auto) 4.08 K/uL (1.4-6.5); Neutrophils % (auto) 80.5 %; Platelet Count 209 K/uL (130-400); RDW Coefficient of Variation 19.1 % (11.5-14.5); RDW Standard Deviation 73.1 fL (36.4-46.3); Red Blood Count 3.37 M/uL (4.7-6.1); White Blood Count 5.07 K/uL (4.8-10.8)
[2021-03-15 07:10] LABS: Alanine Aminotransferase 32 (12-78); Albumin Level 2.2 gm/dl (3.4-5.0); Aspartate Aminotransferase 145 U/L (15-37); BUN Creatinine Ratio 20.1 (10-20); Bilirubin Direct < 0.1 mg/dl (0-0.2); Blood Urea Nitrogen 22 mg/dl (7-18); Calcium 8.1 mg/dl (8.5-10.1); Carbon Dioxide 35 mmol/L (21-32); Chloride 105 mmol/L (98-107); Creatinine Clr Calc Pharmacy 79.1 ml/min; Est GFR (African American) 76.8 ml/min; Est GFR (Non-African American) 66.2 ml/min; Glucose 160 mg/dl (70-99); Potassium 3.9 mmol/L (3.5-5.1); Sodium 143 mmol/L (136-145)
[2021-03-15 07:11] LABS: Alkaline Phosphatase 41 U/L (45-117); Bilirubin,Total 0.3 mg/dl (0.2-1); Total Protein 6.2 gm/dl (6.4-8.2)
[2021-03-15] MEDS: ALBUT/IPRATROP 3MG/0.5MG NEB 3 ML VIAL INH SCH ×2 (07:22→20:12)
[2021-03-15 07:26] LABS: Magnesium 2.5 mg/dl (1.8-2.4)
[2021-03-15] MEDS: CEFEPIME 2,000 MG in SYRINGE 0 ML IV SCH ×3 (08:19→23:08)
[2021-03-15] MEDS: dexAMETHasone 6 MG in SYRINGE 0 ML IV SCH (08:19)
[2021-03-15] MEDS: APIXABAN 5 MG TABLET PO SCH ×2 (08:20→21:14)
[2021-03-15] MEDS: FERROUS SULFATE 325 MG TAB PO SCH (08:20)
[2021-03-15] MEDS: BUMETANIDE 1 MG TAB PO SCH ×2 (08:20→16:21)
[2021-03-15] MEDS: OMEGA-3 (PURIFIED FISH OIL) 1 GM CAP PO SCH (08:21)
[2021-03-15] MEDS: METOPROLOL SUCC 50MG EXT REL TAB PO SCH ×3 (08:21→22:02)
[2021-03-15] MEDS: CYANOCOBALAMIN 500 MCG TABLET (VITAMIN B-12) PO SCH (08:21)
[2021-03-15] MEDS: POTASSIUM CHLORIDE 10 MEQ TABCR PO SCH (08:21)
[2021-03-15] MEDS: CALCIUM 600MG + VIT D 400 IU TAB PO SCH ×2 (08:22→21:15)
[2021-03-15] MEDS: TRIAMCINOLONE ACET NASAL SPRAY 10.8ML BTL NAE SCH (08:23)
[2021-03-15] MEDS ORDERED: BUMETANIDE 1 MG TAB PO SCH (09:00)
[2021-03-15] MEDS ORDERED: MICONAZOLE NITRATE POWDER 43 GM EXT PRN (10:08)
[2021-03-15] MEDS: FLUTICASONE FUROATE 100MCG 14 PUFFS/INHALER INH SCH (12:16)
[2021-03-15] MEDS: UMECLIDINIUM/VILANTEROL 62.5/25MCG 7 PUFFS/INHALER INH SCH (12:16)
[2021-03-15] MEDS: PANTOprazole 40 MG TAB PO SCH (12:17)
[2021-03-15] MEDS: AZITHROMYCIN 500 MG in DEXTROSE 5% 250 ML IV SCH (12:24)
--- NOTE | 2021-03-15 13:30 | Electrocardiogram Report ---
Test Reason : Blood Pressure : / mmHG Vent. Rate : 114 BPM Atrial Rate : 099 BPM P-R Int : 000 ms QRS Dur : 080 ms QT Int : 320 ms P-R-T Axes : 000 -39 023 degrees QTc Int : 441 ms Atrial fibrillation with rapid ventricular response Left axis deviation Low voltage QRS Cannot rule out Anteroseptal infarct (cited on or before 02-FEB-2020) Abnormal ECG When compared with ECG of 16-AUG-2020 12:12, QRS axis Shifted left Questionable change in initial forces of Anteroseptal leads Confirmed by José Lewis ([id number]) on 03/15/2021 1:30:12 PM Referred By: REFERRED SELF Confirmed By:José Lewis
[2021-03-15] MEDS: MULTIVITAMIN TAB PO SCH (16:22)
[2021-03-15] MEDS: REMDESIVIR 100 MG in SODIUM CHLORIDE 0.9% 230 ML IV SCH (21:14)
[2021-03-15] MEDS: ATORVASTATIN 40 MG TAB PO SCH (21:15)
[2021-03-15] MEDS: SODIUM CHLORIDE 0.9% 10ML FLUSH IV SCH (21:16)
--- NOTE | 2021-03-15 21:57 | Hospitalist Progress Note ---
Date of Service March 15, 2021 Assessment & Plan (1) COVID-19: Plan: This patient is a 75-year-old male with history of COPD, CAD, permanent atrial fibrillation on Eliquis, CKD stage III, chronic diastolic CHF, and iron deficiency anemia who presents to the ER with weakness and was found to be febrile and with a cough for 2 to 3 days, with some tachypnea in the setting of chronic respiratory failure with hypoxia. He was on his usual 4 L but seemed to be working harder to breathe. He was found to have a positive Covid-19 test. He was mildly hypotensive which responded to a bolus of crystalloid fluid. He is fully vaccinated but had not yet received his booster shot as he was having trouble getting scheduled. Covid-19 pneumonia and acute on chronic respiratory failure with hypoxia, as well as severe sepsis Procalcitonin high normal at 0.39 Chest x-ray seems consistent with interstitial pneumonia but no definite infiltrate CRP significantly elevated at 15 on 03/15 -Was started on empiric antibiotics for sepsis and pneumonia with cefepime and azithromycin, however fevers and blood pressure have improved -Continue azithromycin but decrease to 250 mg p.o. once daily, continue cefepime, but can likely de-escalate the antibiotics tomorrow -Continue IV Decadron 6 mg daily -Continue 5-day course of Remdesivir as he presented within the first week of illness -Continue supplemental O2 to keep pulse ox greater than 90%-of note he is chronically on 4 L nasal cannula at home which is what he is at here -Continue incentive spirometry and flutter valve, bronchodilators Follow CBC, CMP, CRP in the morning (2) Severe sepsis: Plan: With hypotension, fever, tachycardia, and source of infection Covid-19 Lactate elevated now returned to normal after IV fluid resuscitation Procalcitonin within normal limits but could have bacterial pneumonia Continue cefepime and azithromycin Follow blood cultures-no growth to date (3) Fever: Plan: -- Likely secondary to COVID and possibly secondary bacterial pneumonia-now resolved -- Tylenol as needed. (4) COPD (chronic obstructive pulmonary disease): Plan: -- Mange as outlined above. -- Continue usual inhalers and nebulizer treatments. -- Continue supplemental oxygen. -- IV Dexamethasone 6 mg daily. (5) Oxygen dependent: Plan: -- Chronically on 4 LNC of O2 (6) CAD (coronary artery disease): Plan: With history of RCA stent No chest pain -Continue Toprol XL 200 mg b.i.d. -Continue Atorvastatin 80 mg daily. -Continue apixaban (7) Atrial fibrillation, permanent: Plan: Patient has permanent atrial fibrillation and typically has a slow ventricular response. His heart rate is likely elevated due to his acute illness -Continue Toprol XL 200 mg b.i.d.. -Continue Eliquis 5 mg b.i.d. Continue to monitor on telemetry (8) Chronic diastolic congestive heart failure: Plan: He currently appears euvolemic. -Continue Bumex 4 mg b.i.d.. -Monitor I&O's, daily body weights. -2 gram low sodium, heart healthy diet. (9) HTN (hypertension), benign: Plan: Blood pressures are controlled Continue home bumetanide, metoprolol (10) SHIRA (obstructive sleep apnea): Plan: Unclear if he has home CPAP, but some previous notes in the chart say that he does He has used BiPAP here in the past and has chronic CO2 retention as evidenced by elevated serum bicarbonate Order BiPAP for at nighttime 13/10 and can be adjusted by respiratory therapist as needed Plan: DVT prophylaxis-apixaban Disposition-continued stay on telemetry with Covid precautions Admission and Anticipated Discharge Date Admission Date: March 14, 2021 Subjective Patient reports feeling okay today, a little bit less short of breath but about the same. Remains on his home 4 L nasal cannula. With some cough. Is eating 50% of his meals, drinking fluid. Denies chest pains. Telemetry with atrial fibrillation with rates in the 90s to low 100s. Review of Systems Review of Systems: All systems reviewed & are unremarkable except as noted in HPI & below Physical Exam Constitutional: WD/WN, vitals as above + morbidly obese Eyes: + anicteric sclerae Neck: trachea midline, no thyromegaly Respiratory: normal respiratory effort and + cough Auscultation: + wheezes (Diffusely at expiration); no crackles and no rhonchi Cardiovascular: Rate/Rhythm: + tachycardic and + irregularly irregular Chest (Breasts): Chest: normal inspection of chest Gastrointestinal (Abdomen): normal bowel sounds, soft, nontender, no hepatosplenomegaly Musculoskeletal: Extremities: extremities normal to inspection; no cyanosis and no clubbing Skin: no rashes, warm and dry Neurologic: moves all extremities and awake; no focal motor deficits Psychiatric: A+Ox3, euthymic affect Lymphatic: no lymphedema Results & Data Results & Data ([facility]) Vital Signs (Past 12 Hours) Vital Signs Temp Pulse Pulse Resp BP BP Pulse Ox 03/15/21 20:13 106 H 20 90 03/15/21 19:00 36.5 C 104 H 20 109/73 90 03/15/21 15:27 36.8 C 106 H 20 137/76 93 03/15/21 15:00 90 03/15/21 11:47 132/81 03/15/21 11:00 36.5 C 113 H 22 85/52 L 97 Laboratory Results 03/15/21 03/15/21 Range/Units 05:49 05:49 WBC 5.07 (4.8-10.8) K/uL RBC 3.37 L (4.7-6.1) M/uL Hgb 11.0 L (14.0-18.0) g/dL Hct 35.5 L (42-52) % MCV 105.3 H (80-100) fL MCH 32.6 (25-34) pg MCHC 31.0 L (32-36) g/dL RDW Std Deviation 73.1 H (36.4-46.3) fL RDW Coeff of Ezekiel 19.1 H (11.5-14.5) % Plt Count 209 (130-400) K/uL MPV 10.5 H (7.4-10.4) fL Immature Gran % (Auto) 0.2 % Neut % (Auto) 80.5 % Lymph % (Auto) 11.2 % [place] % (Auto) 8.1 % Eos % (Auto) 0.0 % Baso % (Auto) 0.0 % Neut # (Auto) 4.08 (1.4-6.5) K/uL Lymph # (Auto) 0.57 L (1.2-3.4) K/uL [place] # (Auto) 0.41 (0.11-0.59) K/uL Eos # (Auto) 0.00 (0-0.5) K/uL Baso # (Auto) 0.00 (0-0.2) K/uL Immature Gran # (Auto) 0.01 (0.00-0.02) K/uL Sodium 143 (136-145) mmol/L Potassium 3.9 (3.5-5.1) mmol/L Chloride 105 (98-107) mmol/L Carbon Dioxide 35 H (21-32) mmol/L Anion Gap 3.0 (3-11) BUN 22 H (7-18) mg/dl Creatinine 1.10 D (0.6-1.4) mg/dl Est Cr Clr Drug Dosing 79.1 ml/min Est GFR ( Amer) 76.8 ml/min Est GFR (Non-Af Amer) 66.2 ml/min BUN/Creatinine Ratio 20.1 H (10-20) Glucose 160 H (70-99) mg/dl Calcium 8.1 L (8.5-10.1) mg/dl Magnesium 2.5 H (1.8-2.4) mg/dl Total Bilirubin 0.3 (0.2-1) mg/dl Direct Bilirubin < 0.1 (0-0.2) mg/dl AST 145 H (15-37) U/L ALT 32 (12-78) Alkaline Phosphatase 41 L (45-117) U/L C-Reactive Protein 15.10 H (0-0.29) mg/dl Total Protein 6.2 L (6.4-8.2) gm/dl Albumin 2.2 L (3.4-5.0) gm/dl PG Care Time/CCT Total # of Minutes Spent Total Time Spent with Patient: Total time spent is greater than 50% in coordination of care (as documented) at patient's floor/unit and/or counseling patient: Coding Level of Care Code 23690 Subseq Hosp Care Lvl 3 Diagnoses COVID-19 U07.1 Severe sepsis A41.9; R65.20 Fever R50.9 Fever type: unspecified COPD (chronic obstructive pulmonary disease) J44.1 COPD type: COPD with acute exacerbation Oxygen dependent Z99.81 CAD (coronary artery disease) I25.10 Coronary Disease-Associated Artery/Lesion type: [place] artery [place] vs. transplanted heart: [place] heart Associated angina: without angina Atrial fibrillation, permanent I48.21 Chronic diastolic congestive heart failure I50.32 HTN (hypertension), benign I10 SHIRA (obstructive sleep apnea) G47.33 (1) Fever Fever type: unspecified Qualified Code(s): R50.9 - Fever, unspecified (2) COPD (chronic obstructive pulmonary disease) COPD type: COPD with acute exacerbation Qualified Code(s): J44.1 - Chronic obstructive pulmonary disease with (acute) exacerbation (3) CAD (coronary artery disease) Coronary Disease-Associated Artery/Lesion type: [place] artery [place] vs. transplanted heart: [place] heart Associated angina: without angina Qualified Code(s): I25.10 - Atherosclerotic heart disease of [place] coronary artery without angina pectoris
[2021-03-16 06:35] LABS: Hematocrit (blood only) 36.1 % (42-52); Hemoglobin 11.1 g/dL (14.0-18.0); Immature Granulocytes # (auto) 0.01 K/uL (0.00-0.02); Immature Granulocytes % (auto) 0.1 %; Lymphocytes # (auto) 0.65 K/uL (1.2-3.4); Lymphocytes % (auto) 8.9 %; Mean Corpuscular Hemoglobin 31.8 pg (25-34); Mean Corpuscular Hgb Conc 30.7 g/dL (32-36); Mean Corpuscular Volume 103.4 fL (80-100); Mean Platelet Volume 10.7 fL (7.4-10.4); Monocytes # (auto) 0.49 K/uL (0.11-0.59); Monocytes % (auto) 6.7 %; Neutrophils # (auto) 6.15 K/uL (1.4-6.5); Neutrophils % (auto) 84.3 %; Platelet Count 222 K/uL (130-400); RDW Coefficient of Variation 18.4 % (11.5-14.5); RDW Standard Deviation 69.9 fL (36.4-46.3); Red Blood Count 3.49 M/uL (4.7-6.1)
[2021-03-16 07:08] LABS: Albumin Level 2.1 gm/dl (3.4-5.0); BUN Creatinine Ratio 31.4 (10-20); C Reactive Protein 9.18 mg/dl (0-0.29); Calcium 8.1 mg/dl (8.5-10.1); Creatinine Clr Calc Pharmacy 93.2 ml/min; Est GFR (African American) 94.1 ml/min; Est GFR (Non-African American) 81.2 ml/min; Magnesium 2.3 mg/dl (1.8-2.4); Potassium 4.1 mmol/L (3.5-5.1)
[2021-03-16 07:10] LABS: Albumin Globulin Ratio 0.5 (0.9-2); Bilirubin,Total 0.4 mg/dl (0.2-1); Total Protein 6.1 gm/dl (6.4-8.2)
[2021-03-16] MEDS: ALBUT/IPRATROP 3MG/0.5MG NEB 3 ML VIAL INH SCH ×2 (07:12→19:36)
[2021-03-16] MEDS: METOPROLOL SUCC 50MG EXT REL TAB PO SCH ×2 (08:10→19:56)
[2021-03-16] MEDS: APIXABAN 5 MG TABLET PO SCH ×2 (08:10→19:56)
[2021-03-16] MEDS: CALCIUM 600MG + VIT D 400 IU TAB PO SCH ×2 (08:10→19:56)
[2021-03-16] MEDS: OMEGA-3 (PURIFIED FISH OIL) 1 GM CAP PO SCH (08:11)
[2021-03-16] MEDS: BUMETANIDE 1 MG TAB PO SCH ×2 (08:11→13:37)
[2021-03-16] MEDS: UMECLIDINIUM/VILANTEROL 62.5/25MCG 7 PUFFS/INHALER INH SCH (08:12)
[2021-03-16] MEDS: FLUTICASONE FUROATE 100MCG 14 PUFFS/INHALER INH SCH (08:12)
[2021-03-16] MEDS: FERROUS SULFATE 325 MG TAB PO SCH (08:12)
[2021-03-16] MEDS: CYANOCOBALAMIN 500 MCG TABLET (VITAMIN B-12) PO SCH (08:12)
[2021-03-16] MEDS: PANTOprazole 40 MG TAB PO SCH (08:12)
[2021-03-16] MEDS: TRIAMCINOLONE ACET NASAL SPRAY 10.8ML BTL NAE SCH (08:13)
[2021-03-16] MEDS: AZITHROMYCIN 250 MG TAB PO SCH (08:26)
[2021-03-16] MEDS: CEFEPIME 2,000 MG in SYRINGE 0 ML IV SCH ×3 (08:36→23:55)
[2021-03-16] MEDS: dexAMETHasone 6 MG in SYRINGE 0 ML IV SCH (08:36)
[2021-03-16] MEDS: POTASSIUM CHLORIDE 10 MEQ TABCR PO SCH (10:39)
[2021-03-16] MEDS ORDERED: Nursing to Pharmacy Communication SCH (11:45)
--- NOTE | 2021-03-16 12:21 | Hospitalist Progress Note ---
Date of Service March 16, 2021 Assessment & Plan (1) COVID-19: Plan: This patient is a 75-year-old male with history of COPD, CAD, permanent atrial fibrillation on Eliquis, CKD stage III, chronic diastolic CHF, and iron deficiency anemia who presents to the ER with weakness and was found to be febrile and with a cough for 2 to 3 days, He was found to have a positive Covid-19 test. He is fully vaccinated but had not yet received his booster shot as he was having trouble getting scheduled. Chest x-ray shows evidence of infiltrates. Started on IV remdesivir, IV Decadron. Also empiric IV azithromycin and cefepime for suspected bacterial infection as well. Patient said his breathing is much better this morning. We will continue to monitor inflammatory markers. Wean oxygen as tolerated. (2) Severe sepsis: Plan: Sepsis is resolving. Most likely secondary to COVID-19 infection and superimposed bacterial pneumonia. Continue antibiotics and also treatment for Covid as per above (3) Fever: Plan: -- resolved (4) COPD (chronic obstructive pulmonary disease): Plan: -- Mange as outlined above. -- Continue usual inhalers and nebulizer treatments. -- Continue supplemental oxygen. -- IV Dexamethasone 6 mg daily. (5) Oxygen dependent: Plan: -- Chronically on 4 LNC of O2 (6) CAD (coronary artery disease): Plan: With history of RCA stent No chest pain -Continue Toprol XL 200 mg b.i.d. -Continue Atorvastatin 80 mg daily. -Continue apixaban (7) Atrial fibrillation, permanent: Plan: Patient has permanent atrial fibrillation and typically has a slow ventricular response. His heart rate is likely elevated due to his acute illness -Continue Toprol XL 200 mg b.i.d.. -Continue Eliquis 5 mg b.i.d. Continue to monitor on telemetry (8) Chronic diastolic congestive heart failure: Plan: He currently appears euvolemic. -Continue Bumex 4 mg b.i.d.. -Monitor I&O's, daily body weights. -2 gram low sodium, heart healthy diet. (9) HTN (hypertension), benign: Plan: Blood pressures are controlled Continue home bumetanide, metoprolol (10) SHIRA (obstructive sleep apnea): Plan: Unclear if he has home CPAP, but some previous notes in the chart say that he does He has used BiPAP here in the past and has chronic CO2 retention as evidenced by elevated serum bicarbonate Order BiPAP for at nighttime 13/10 and can be adjusted by respiratory therapist as needed (11) Morbid obesity: Plan: Patient advised on diet and exercise Plan: DVT prophylaxis-apixaban Disposition-continued stay on telemetry with Covid precautions Admission and Anticipated Discharge Date Admission Date: March 14, 2021 Subjective Patient seen and examined this morning, said he could not tolerate his CPAP at night. Still on full dose of oxygen through nasal cannula. Complains of dry cough. Review of Systems Review of Systems: All systems reviewed are negative, apart from the ones contained in the history. Physical Exam Physical Exam: The patient is awake, alert and oriented 3, well developed and well nourished, normocephalic and atraumatic, lying in bed and in no acute distress.obese HEENT--PERRL, EOMI, mucous membranes and oropharynx mildly dry Neck--supple. No JVD. No bruits. Thyroid normal, trachea midline, no ad enopathy. Heart--normal S1 and S2. No murmurs, rubs or gallops. Lungs--Reduced air entry on auscultation Abdomen--normal bowel sounds and soft. Mild epigastric and left sided abdominal pain Extremities--no cyanosis or clubbing. No edema. Dermatologic--normal skin turgor, normal color, no abnormal lymph nodes, no rash. Neurologic--cranial nerves II through XII grossly intact. Rheumatologic--normal range of motion. Psychiatric--normal affect. Results & Data Results & Data ([facility]) Vital Signs (Past 12 Hours) Vital Signs Temp Pulse Pulse Resp BP Pulse Ox 03/16/21 11:20 98.6 F 112 H 22 139/106 H 90 03/16/21 07:17 97.5 F L 95 H 20 132/82 89 L 03/16/21 07:12 93 H 22 91 03/16/21 07:00 100 H 03/16/21 01:40 18 92 Laboratory Results Laboratory Results - last 24 hr 03/16/21 03/16/21 06:00 06:00 WBC 7.30 RBC 3.49 L Hgb 11.1 L Hct 36.1 L MCV 103.4 H MCH 31.8 MCHC 30.7 L RDW Std Deviation 69.9 H RDW Coeff of Ezekiel 18.4 H Plt Count 222 MPV 10.7 H Immature Gran % (Auto) 0.1 Neut % (Auto) 84.3 Lymph % (Auto) 8.9 [place] % (Auto) 6.7 Eos % (Auto) 0.0 Baso % (Auto) 0.0 Neut # (Auto) 6.15 Lymph # (Auto) 0.65 L [place] # (Auto) 0.49 Eos # (Auto) 0.00 Baso # (Auto) 0.00 Immature Gran # (Auto) 0.01 Sodium 142 Potassium 4.1 Chloride 103 Carbon Dioxide 36 H Anion Gap 3.0 BUN 29 H Creatinine 0.93 Est Cr Clr Drug Dosing 93.2 Est GFR ( Amer) 94.1 Est GFR (Non-Af Amer) 81.2 BUN/Creatinine Ratio 31.4 H Glucose 120 H Calcium 8.1 L Magnesium 2.3 Total Bilirubin 0.4 AST 137 H ALT 31 Alkaline Phosphatase 37 L C-Reactive Protein 9.18 H Total Protein 6.1 L Albumin 2.1 L Globulin 4.0 Albumin/Globulin Ratio 0.5 L PG Care Time/CCT Total # of Minutes Spent Total Time Spent with Patient: Total time spent is greater than 50% in coordination of care (as documented) at patient's floor/unit and/or counseling patient: Coding Level of Care Code 49569 Subseq Hosp Care Lvl 2 Diagnoses COVID-19 U07.1 Severe sepsis A41.9; R65.20 Fever R50.9 Fever type: unspecified COPD (chronic obstructive pulmonary disease) J44.1 COPD type: COPD with acute exacerbation Oxygen dependent Z99.81 CAD (coronary artery disease) I25.10 Coronary Disease-Associated Artery/Lesion type: [place] artery [place] vs. transplanted heart: [place] heart Associated angina: without angina Atrial fibrillation, permanent I48.21 Chronic diastolic congestive heart failure I50.32 HTN (hypertension), benign I10 SHIRA (obstructive sleep apnea) G47.33 Morbid obesity E66.01 Time Spent (min) 35 (1) Fever Fever type: unspecified Qualified Code(s): R50.9 - Fever, unspecified (2) COPD (chronic obstructive pulmonary disease) COPD type: COPD with acute exacerbation Qualified Code(s): J44.1 - Chronic obstructive pulmonary disease with (acute) exacerbation (3) CAD (coronary artery disease) Coronary Disease-Associated Artery/Lesion type: [place] artery [place] vs. transplanted heart: [place] heart Associated angina: without angina Qualified Code(s): I25.10 - Atherosclerotic heart disease of [place] coronary artery without angina pectoris
[2021-03-16] MEDS: MULTIVITAMIN TAB PO SCH (15:07)
[2021-03-16] MEDS: REMDESIVIR 100 MG in SODIUM CHLORIDE 0.9% 230 ML IV SCH (19:44)
[2021-03-16] MEDS: ATORVASTATIN 40 MG TAB PO SCH (19:56)
[2021-03-16] MEDS: SODIUM CHLORIDE 0.9% 10ML FLUSH IV SCH (21:14)
[2021-03-17] MEDS: ALBUT/IPRATROP 3MG/0.5MG NEB 3 ML VIAL INH SCH ×2 (07:22→19:38)
[2021-03-17 07:32] LABS: Basophils # (auto) 0.01 K/uL (0-0.2); Basophils % (auto) 0.1 %; Hematocrit (blood only) 36.7 % (42-52); Hemoglobin 11.4 g/dL (14.0-18.0); Immature Granulocytes # (auto) 0.02 K/uL (0.00-0.02); Immature Granulocytes % (auto) 0.3 %; Lymphocytes # (auto) 0.59 K/uL (1.2-3.4); Lymphocytes % (auto) 7.9 %; Mean Corpuscular Hemoglobin 31.5 pg (25-34); Mean Corpuscular Hgb Conc 31.1 g/dL (32-36); Mean Corpuscular Volume 101.4 fL (80-100); Mean Platelet Volume 10.4 fL (7.4-10.4); Monocytes % (auto) 9.4 %; Neutrophils # (auto) 6.11 K/uL (1.4-6.5); Neutrophils % (auto) 82.3 %; Platelet Count 225 K/uL (130-400); RDW Coefficient of Variation 18.3 % (11.5-14.5); RDW Standard Deviation 67.5 fL (36.4-46.3); Red Blood Count 3.62 M/uL (4.7-6.1); White Blood Count 7.43 K/uL (4.8-10.8)
[2021-03-17] MEDS: BUMETANIDE 1 MG TAB PO SCH (08:57)
[2021-03-17] MEDS: CEFEPIME 2,000 MG in SYRINGE 0 ML IV SCH ×3 (09:12→23:53)
[2021-03-17] MEDS: dexAMETHasone 6 MG in SYRINGE 0 ML IV SCH (09:12)
[2021-03-17] MEDS: BUMETANIDE 2 MG in SYRINGE 0 ML IV SCH ×2 (09:50→16:30)
[2021-03-17] MEDS: APIXABAN 5 MG TABLET PO SCH ×2 (12:21→20:10)
[2021-03-17] MEDS: METOPROLOL SUCC 50MG EXT REL TAB PO SCH ×2 (12:21→20:11)
[2021-03-17] MEDS: CYANOCOBALAMIN 500 MCG TABLET (VITAMIN B-12) PO SCH (12:22)
[2021-03-17] MEDS: AZITHROMYCIN 250 MG TAB PO SCH (12:22)
[2021-03-17] MEDS: CALCIUM 600MG + VIT D 400 IU TAB PO SCH ×2 (12:22→20:11)
[2021-03-17] MEDS: FERROUS SULFATE 325 MG TAB PO SCH (12:22)
[2021-03-17] MEDS: PANTOprazole 40 MG TAB PO SCH (12:22)
[2021-03-17] MEDS: OMEGA-3 (PURIFIED FISH OIL) 1 GM CAP PO SCH (12:22)
[2021-03-17] MEDS: UMECLIDINIUM/VILANTEROL 62.5/25MCG 7 PUFFS/INHALER INH SCH (12:23)
[2021-03-17] MEDS: TRIAMCINOLONE ACET NASAL SPRAY 10.8ML BTL NAE SCH (12:23)
[2021-03-17] MEDS: FLUTICASONE FUROATE 100MCG 14 PUFFS/INHALER INH SCH (12:23)
[2021-03-17] MEDS: ACETAMINOPHEN 325 MG TAB PO PRN (12:37)
[2021-03-17] MEDS: POTASSIUM CHLORIDE 10 MEQ TABCR PO SCH (12:37)
--- NOTE | 2021-03-17 13:29 | Hospitalist Progress Note ---
Date of Service March 17, 2021 Assessment & Plan (1) COVID-19: Plan: This patient is a 75-year-old male with history of COPD, CAD, permanent atrial fibrillation on Eliquis, CKD stage III, chronic diastolic CHF, and iron deficiency anemia who presents to the ER with weakness and was found to be febrile and with a cough for 2 to 3 days, He was found to have a positive Covid-19 test. He is fully vaccinated but had not yet received his booster shot as he was having trouble getting scheduled. Chest x-ray shows evidence of infiltrates. Started on IV remdesivir, IV Decadron. Also empiric IV azithromycin and cefepime for suspected bacterial infection as well. We will continue to monitor inflammatory markers. Wean oxygen as tolerated. (2) Acute and chronic respiratory failure: Plan: Secondary to COVID 19 PNA Patients oxygen requirement has gone up this morning after beibg on 4L Today, he is on high flow oxygen,15L may advance to heated high flow Patient open to intubation if needed Encourage prone positioning, if patient can tolerate (3) Severe sepsis: Plan: Sepsis is resolving. Most likely secondary to COVID-19 infection and superimposed bacterial pneumonia. Continue antibiotics and also treatment for Covid as per above (4) Fever: Plan: -- resolved (5) COPD (chronic obstructive pulmonary disease): Plan: -- Mange as outlined above. -- Continue usual inhalers and nebulizer treatments. -- Continue supplemental oxygen. -- IV Dexamethasone 6 mg daily. (6) Oxygen dependent: Plan: -- Chronically on 4 LNC of O2 (7) CAD (coronary artery disease): Plan: With history of RCA stent No chest pain -Continue Toprol XL 200 mg b.i.d. -Continue Atorvastatin 80 mg daily. -Continue apixaban (8) Atrial fibrillation, permanent: Plan: Patient has permanent atrial fibrillation and typically has a slow ventricular response. His heart rate is likely elevated due to his acute illness -Continue Toprol XL 200 mg b.i.d.. -Continue Eliquis 5 mg b.i.d. Continue to monitor on telemetry (9) Chronic diastolic congestive heart failure: Plan: He currently appears euvolemic. -Continue Bumex 4 mg b.i.d.. -Monitor I&O's, daily body weights. -2 gram low sodium, heart healthy diet. (10) HTN (hypertension), benign: Plan: Blood pressures are controlled Continue home bumetanide, metoprolol (11) SHIRA (obstructive sleep apnea): Plan: Unclear if he has home CPAP, but some previous notes in the chart say that he does He has used BiPAP here in the past and has chronic CO2 retention as evidenced by elevated serum bicarbonate Order BiPAP for at nighttime 15/7 and can be adjusted by respiratory therapist as needed (12) Morbid obesity: Plan: Patient advised on diet and exercise Plan: DVT prophylaxis-apixaban Disposition-continued stay on telemetry with Covid precautions Admission and Anticipated Discharge Date Admission Date: March 14, 2021 Subjective Patient seen and examined this morning, his oxygen requirement has gone up, now on 15L Review of Systems Review of Systems: All systems reviewed are negative, apart from the ones contained in the history. Physical Exam Physical Exam: The patient is awake, alert and oriented 3, well developed and well nourished, normocephalic and atraumatic, lying in bed and in no acute distress.obese HEENT--PERRL, EOMI, mucous membranes and oropharynx mildly dry Neck--supple. No JVD. No bruits. Thyroid normal, trachea midline, no adenopathy. Heart--normal S1 and S2. No murmurs, rubs or gallops. Lungs--Reduced air entry on auscultation Abdomen--normal bowel sounds and soft. Mild epigastric and left sided abdominal pain Extremities--no cyanosis or clubbing. No edema. Dermatologic--normal skin turgor, normal color, no abnormal lymph nodes, no rash. Neurologic--cranial nerves II through XII grossly intact. Rheumatologic--normal range of motion. Psychiatric--normal affect. Results & Data Results & Data ([facility]) Vital Signs (Past 12 Hours) Vital Signs Temp Pulse Pulse Resp BP Pulse Ox Pulse Ox 03/17/21 13:01 24 92 03/17/21 12:40 24 86 L 03/17/21 12:01 97 03/17/21 11:59 98.4 F 88 20 129/76 94 03/17/21 11:20 105 H 22 97 03/17/21 08:15 92 03/17/21 08:00 62 L 03/17/21 07:38 98.4 F 89 20 118/72 93 03/17/21 07:24 98 H 20 96 03/17/21 07:23 98 H 20 96 03/17/21 07:00 80 03/17/21 04:10 93 03/17/21 04:00 98.4 F 71 20 149/83 H 84 L 03/17/21 02:00 92 H 32 H 94 Pulse Ox Pulse Ox 03/17/21 13:01 03/17/21 12:40 03/17/21 12:01 97 94 03/17/21 11:59 03/17/21 11:20 03/17/21 08:15 03/17/21 08:00 03/17/21 07:38 03/17/21 07:24 03/17/21 07:23 03/17/21 07:00 03/17/21 04:10 03/17/21 04:00 03/17/21 02:00 PG Care Time/CCT Total # of Minutes Spent Total Time Spent with Patient: Total time spent is greater than 50% in coordination of care (as documented) at patient's floor/unit and/or counseling patient: Coding Level of Care Code 15273 Subseq Hosp Care Lvl 2 Diagnoses COVID-19 U07.1 Severe sepsis A41.9; R65.20 Fever R50.9 Fever type: unspecified COPD (chronic obstructive pulmonary disease) J44.1 COPD type: COPD with acute exacerbation Oxygen dependent Z99.81 CAD (coronary artery disease) I25.10 Coronary Disease-Associated Artery/Lesion type: [place] artery [place] vs. transplanted heart: [place] heart Associated angina: without angina Atrial fibrillation, permanent I48.21 Chronic diastolic congestive heart failure I50.32 HTN (hypertension), benign I10 SHIRA (obstructive sleep apnea) G47.33 Morbid obesity E66.01 Acute and chronic respiratory failure J96.20 Time Spent (min) 35 (1) Fever Fever type: unspecified Qualified Code(s): R50.9 - Fever, unspecified (2) COPD (chronic obstructive pulmonary disease) COPD type: COPD with acute exacerbation Qualified Code(s): J44.1 - Chronic obstructive pulmonary disease with (acute) exacerbation (3) CAD (coronary artery disease) Coronary Disease-Associated Artery/Lesion type: [place] artery [place] vs. transplanted heart: [place] heart Associated angina: without angina Qualified Code(s): I25.10 - Atherosclerotic heart disease of [place] coronary artery without angina pectoris
[2021-03-17] MEDS: MULTIVITAMIN TAB PO SCH (16:30)
[2021-03-17] MEDS: REMDESIVIR 100 MG in SODIUM CHLORIDE 0.9% 230 ML IV SCH (19:51)
[2021-03-17] MEDS: ATORVASTATIN 40 MG TAB PO SCH (20:12)
[2021-03-17] MEDS: SODIUM CHLORIDE 0.9% 10ML FLUSH IV SCH (21:09)
[2021-03-18] MEDS: ESZOPICLONE 1 MG TAB PO PRN (01:29)
[2021-03-18] MEDS: ALBUT/IPRATROP 3MG/0.5MG NEB 3 ML VIAL INH SCH ×2 (07:35→20:03)
[2021-03-18] MEDS: CALCIUM 600MG + VIT D 400 IU TAB PO SCH ×2 (07:57→20:39)
[2021-03-18] MEDS: METOPROLOL SUCC 50MG EXT REL TAB PO SCH ×2 (07:57→20:38)
[2021-03-18] MEDS: AZITHROMYCIN 250 MG TAB PO SCH (07:57)
[2021-03-18] MEDS: BUMETANIDE 2 MG in SYRINGE 0 ML IV SCH ×2 (07:58→16:08)
[2021-03-18] MEDS: CYANOCOBALAMIN 500 MCG TABLET (VITAMIN B-12) PO SCH (07:58)
[2021-03-18] MEDS: APIXABAN 5 MG TABLET PO SCH ×2 (07:59→20:36)
[2021-03-18] MEDS: OMEGA-3 (PURIFIED FISH OIL) 1 GM CAP PO SCH (07:59)
[2021-03-18] MEDS: PANTOprazole 40 MG TAB PO SCH (07:59)
[2021-03-18] MEDS: FERROUS SULFATE 325 MG TAB PO SCH (07:59)
[2021-03-18] MEDS: dexAMETHasone 6 MG in SYRINGE 0 ML IV SCH (08:00)
[2021-03-18] MEDS: CEFEPIME 2,000 MG in SYRINGE 0 ML IV SCH ×2 (08:00→16:09)
[2021-03-18] MEDS: UMECLIDINIUM/VILANTEROL 62.5/25MCG 7 PUFFS/INHALER INH SCH (08:01)
[2021-03-18] MEDS: FLUTICASONE FUROATE 100MCG 14 PUFFS/INHALER INH SCH (08:01)
[2021-03-18] MEDS: TRIAMCINOLONE ACET NASAL SPRAY 10.8ML BTL NAE SCH (08:01)
[2021-03-18] MEDS: POTASSIUM CHLORIDE 10 MEQ TABCR PO SCH (08:02)
--- NOTE | 2021-03-18 12:34 | Hospitalist Progress Note ---
Date of Service March 18, 2021 Assessment & Plan (1) COVID-19: Plan: This patient is a 75-year-old male with history of COPD, CAD, permanent atrial fibrillation on Eliquis, CKD stage III, chronic diastolic CHF, and iron deficiency anemia who presents to the ER with weakness and was found to be febrile and with a cough for 2 to 3 days, He was found to have a positive Covid-19 test. He is fully vaccinated but had not yet received his booster shot as he was having trouble getting scheduled. Chest x-ray shows evidence of infiltrates. Started on IV remdesivir, IV Decadron. Also empiric IV azithromycin and cefepime for suspected bacterial infection as well. We will continue to monitor inflammatory markers. Wean oxygen as tolerated. Patient not a candidate for Baricitinib, CRP 6.5 today (2) Acute and chronic respiratory failure: Plan: Secondary to COVID 19 PNA He is on high flow oxygen,15L may advance to heated high flow Patient open to intubation if needed Encourage prone positioning, if patient can tolerate (3) Severe sepsis: Plan: Sepsis is resolving. Most likely secondary to COVID-19 infection and superimposed bacterial pneumonia. Continue antibiotics and also treatment for Covid as per above (4) Fever: Plan: -- resolved (5) COPD (chronic obstructive pulmonary disease): Plan: -- [place] as outlined above. -- Continue usual inhalers and nebulizer treatments. -- Continue supplemental oxygen. -- IV Dexamethasone 6 mg daily. (6) Oxygen dependent: Plan: -- Chronically on 4 LNC of O2 at home. Currently on high flow 15L (7) CAD (coronary artery disease): Plan: With history of RCA stent No chest pain -Continue Toprol XL 200 mg b.i.d. -Continue Atorvastatin 80 mg daily. -Continue apixaban (8) Atrial fibrillation, permanent: Plan: Patient has permanent atrial fibrillation and typically has a slow ventricular response. His heart rate is likely elevated due to his acute illness -Continue Toprol XL 200 mg b.i.d.. -Continue Eliquis 5 mg b.i.d. Continue to monitor on telemetry (9) Chronic diastolic congestive heart failure: Plan: He currently appears euvolemic. -Continue Bumex 4 mg b.i.d.. -Monitor I&O's, daily body weights. -2 gram low sodium, heart healthy diet. (10) HTN (hypertension), benign: Plan: Blood pressures are controlled Continue home bumetanide, metoprolol (11) SHIRA (obstructive sleep apnea): Plan: Unclear if he has home CPAP, but some previous notes in the chart say that he does He has used BiPAP here in the past and has chronic CO2 retention as evidenced by elevated serum bicarbonate Order BiPAP for at nighttime 15/7 and can be adjusted by respiratory therapist as needed (12) Morbid obesity: Plan: Patient advised on diet and exercise Plan: DVT prophylaxis-apixaban Disposition-continued stay on telemetry with Covid precautions Admission and Anticipated Discharge Date Admission Date: March 14, 2021 Subjective Patient seen and examined this morning, still on high flow oxygen Review of Systems Review of Systems: All systems reviewed are negative, apart from the ones con tained in the history. Physical Exam Physical Exam: The patient is awake, alert and oriented 3, well developed and well nourished, normocephalic and atraumatic, lying in bed and in no acute distress.obese HEENT--PERRL, EOMI, mucous membranes and oropharynx mildly dry Neck--supple. No JVD. No bruits. Thyroid normal, trachea midline, no adenopathy. Heart--normal S1 and S2. No murmurs, rubs or gallops. Lungs--Reduced air entry on auscultation Abdomen--normal bowel sounds and soft. Mild epigastric and left sided abdominal pain Extremities--no cyanosis or clubbing. No edema. Dermatologic--normal skin turgor, normal color, no abnormal lymph nodes, no rash. Neurologic--cranial nerves II through XII grossly intact. Rheumatologic--normal range of motion. Psychiatric--normal affect. Results & Data Results & Data ([facility]) Vital Signs (Past 12 Hours) Vital Signs Temp Pulse Pulse Resp BP Pulse Ox 03/18/21 12:01 95.7 F L 95 H 20 115/86 90 03/18/21 11:25 90 28 H 93 03/18/21 07:39 88 24 92 03/18/21 07:35 88 24 92 03/18/21 07:21 97.2 F L 78 20 122/82 94 03/18/21 04:20 70 26 H 90 03/18/21 03:46 97.7 F 85 20 114/70 90 03/18/21 02:15 92 H 32 H 93 PG Care Time/CCT Total # of Minutes Spent Total Time Spent with Patient: Total time spent is greater than 50% in coordination of care (as documented) at patient's floor/unit and/or counseling patient: Coding Level of Care Code 84899 Subseq Hosp Care Lvl 2 Diagnoses COVID-19 U07.1 Acute and chronic respiratory failure J96.20 Severe sepsis A41.9; R65.20 Fever R50.9 Fever type: unspecified COPD (chronic obstructive pulmonary disease) J44.1 COPD type: COPD with acute exacerbation Oxygen dependent Z99.81 CAD (coronary artery disease) I25.10 Coronary Disease-Associated Artery/Lesion type: [place] artery [place] vs. transplanted heart: [place] heart Associated angina: without angina Atrial fibrillation, permanent I48.21 Chronic diastolic congestive heart failure I50.32 HTN (hypertension), benign I10 SHIRA (obstructive sleep apnea) G47.33 Morbid obesity E66.01 Time Spent (min) 35 (1) Fever Fever type: unspecified Qualified Code(s): R50.9 - Fever, unspecified (2) COPD (chronic obstructive pulmonary disease) COPD type: COPD with acute exacerbation Qualified Code(s): J44.1 - Chronic obstructive pulmonary disease with (acute) exacerbation (3) CAD (coronary artery disease) Coronary Disease-Associated Artery/Lesion type: [place] artery [place] vs. transplanted heart: [place] heart Associated angina: without angina Qualified Code(s): I25.10 - Atherosclerotic heart disease of [place] coronary artery without angina pectoris
[2021-03-18] MEDS: MULTIVITAMIN TAB PO SCH (16:08)
[2021-03-18] MEDS: REMDESIVIR 100 MG in SODIUM CHLORIDE 0.9% 230 ML IV SCH (20:29)
[2021-03-18] MEDS: ATORVASTATIN 40 MG TAB PO SCH (20:36)
[2021-03-18] MEDS: SODIUM CHLORIDE 0.9% 10ML FLUSH IV SCH (21:44)
[2021-03-19] MEDS: CEFEPIME 2,000 MG in SYRINGE 0 ML IV SCH ×4 (00:04→23:48)
[2021-03-19 04:51] LABS: Allen Test POS (Pos); Base Excess ABG 15.3 mEq/L (-9-1.8); HCO3 ABG 42 mmol/L (19-24); Oxygen Saturation ABG 92.7 % (90-95); PCO2 ABG 64 mmHg (35-46); PO2 ABG 65 mmHg (80-95); pH ABG 7.44 (7.35-7.45)
--- NOTE | 2021-03-19 05:31 | Communication Note ---
Date of Service: March 19, 2021 Contacted by nursing for worsening hypoxia on BIPAP, O2 saturation at 84-86% initially. Patient comfortable and sleeping. Did attempt proning, which patient was unable to tolerate and had desaturation to 81%. Repositioned in bed and O2 sat increased to 87%. ABG ordered and soon thereafter (without intervention) patient's O2 saturation increased to 91%. ABG 7.44/64/65/42. Respiratory acidosis with metabolic alkalosis (?contraction alkalosis, last BMP 03/16 so AM lab ordered to evaluate renal function). PCO2 actually decreased from ABG on previous admission 08/25/20 (evaluated for hypercapnea at that time). Given transient decrease in SpO2 will continue to monitor for now. Patient is amenable to intubation should it be necessary, per previous notes, and is a full code. Resident Activity Tracking Resident Involvement: Resident Care Provided Care Provided: Adult Hospital Medicine
[2021-03-19 07:02] LABS: BUN Creatinine Ratio 39.8 (10-20); Calcium 8.9 mg/dl (8.5-10.1); Est GFR (African American) 99.7 ml/min; Potassium 3.6 mmol/L (3.5-5.1)
[2021-03-19] MEDS: ALBUT/IPRATROP 3MG/0.5MG NEB 3 ML VIAL INH SCH ×2 (07:45→19:46)
[2021-03-19] MEDS: APIXABAN 5 MG TABLET PO SCH ×2 (08:52→21:01)
[2021-03-19] MEDS: TRIAMCINOLONE ACET NASAL SPRAY 10.8ML BTL NAE SCH (08:53)
[2021-03-19] MEDS: dexAMETHasone 6 MG in SYRINGE 0 ML IV SCH (08:53)
[2021-03-19] MEDS: BUMETANIDE 2 MG in SYRINGE 0 ML IV SCH ×2 (08:53→15:07)
[2021-03-19] MEDS: FERROUS SULFATE 325 MG TAB PO SCH (08:53)
[2021-03-19] MEDS: CYANOCOBALAMIN 500 MCG TABLET (VITAMIN B-12) PO SCH (08:53)
[2021-03-19] MEDS: OMEGA-3 (PURIFIED FISH OIL) 1 GM CAP PO SCH (08:53)
[2021-03-19] MEDS: PANTOprazole 40 MG TAB PO SCH (08:53)
[2021-03-19] MEDS: POTASSIUM CHLORIDE 10 MEQ TABCR PO SCH (08:53)
[2021-03-19] MEDS: METOPROLOL SUCC 50MG EXT REL TAB PO SCH ×2 (08:53→21:02)
[2021-03-19] MEDS: CALCIUM 600MG + VIT D 400 IU TAB PO SCH ×2 (08:53→21:02)
[2021-03-19] MEDS: FLUTICASONE FUROATE 100MCG 14 PUFFS/INHALER INH SCH (08:53)
[2021-03-19] MEDS: UMECLIDINIUM/VILANTEROL 62.5/25MCG 7 PUFFS/INHALER INH SCH (08:53)
[2021-03-19] MEDS: dexAMETHasone 8 MG in SYRINGE 0 ML IV SCH (10:45)
--- NOTE | 2021-03-19 12:23 | Hospitalist Progress Note ---
Date of Service March 19, 2021 Assessment & Plan (1) COVID-19: Plan: This patient is a 75-year-old male with history of COPD, CAD, permanent atrial fibrillation on Eliquis, CKD stage III, chronic diastolic CHF, and iron deficiency anemia who presents to the ER with weakness and was found to be febrile and with a cough for 2 to 3 days, He was found to have a positive Covid-19 test. He is fully vaccinated but had not yet received his booster shot as he was having trouble getting scheduled. Chest x-ray shows evidence of infiltrates. Started on IV remdesivir, IV Decadron, increased to 8mg daily Also empiric IV azithromycin and cefepime for suspected bacterial infection as well. We will continue to monitor inflammatory markers. Wean oxygen as tolerated. 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 Most likely secondary to COVID-19 infection and superimposed bacterial pneumonia. Continue antibiotics and also treatment for Covid as per above (4) Fever: Plan: -- resolved (5) COPD (chronic obstructive pulmonary disease): Plan: -- Continue usual inhalers and nebulizer treatments. -- Continue supplemental oxygen. -- IV Dexamethasone 8 mg daily. (6) Oxygen dependent: Plan: -- Chronically on 4 LNC of O2 at home. Currently on BIPAP 16/10, 100% (7) CAD (coronary artery disease): Plan: With history of RCA stent No chest pain -Continue Toprol XL 200 mg b.i.d. -Continue Atorvastatin 80 mg daily. -Continue apixaban (8) Atrial fibrillation, permanent: Plan: Patient has permanent atrial fibrillation and typically has a slow ventricular response. His heart rate is likely elevated due to his acute illness -Continue Toprol XL 200 mg b.i.d.. -Continue Eliquis 5 mg b.i.d. Continue to monitor on telemetry (9) Chronic diastolic congestive heart failure: Plan: He currently appears euvolemic. -Continue Bumex 4 mg b.i.d.. -Monitor I&O's, daily body weights. -2 gram low sodium, heart healthy diet. (10) HTN (hypertension), benign: Plan: Blood pressures are controlled Continue home bumetanide, metoprolol (11) SHIRA (obstructive sleep apnea): Plan: Unclear if he has home CPAP, but some previous notes in the chart say that he does He has used BiPAP here in the past and has chronic CO2 retention as evidenced by elevated serum bicarbonate Order BiPAP for at nighttime 13/10 and can be adjusted by respiratory therapist as needed (12) Morbid obesity: Plan: Patient advised on diet and exercise Plan: DVT prophylaxis-apixaban Disposition-continued stay on telemetry with Covid precautions Admission and Anticipated Discharge Date Admission Date: March 14, 2021 Subjective Patient seen and examined this morning, COMPUTER BOOKKEEPER was called earlier this morning on account of desaturation Review of Systems Review of Systems: All systems reviewed are negative, apart from the ones contained in the history. Physical Exam Physical Exam: The patient is awake, alert and oriented 3, well developed and well nourished, normocephalic and atraumatic, lying in bed and in no acute distress.obese HEENT--PERRL, EOMI, mucous membranes and oropharynx mildly dry Neck--supple. No JVD. No bruits. Thyroid normal, trachea midline, no adenopathy. Heart--normal S1 and S2. No murmurs, rubs or gallops. Lungs--Reduced air entry on auscultation Abdomen--normal bowel sounds and soft. Mild epigastric and left sided abdominal pain Extremities--no cyanosis or clubbing. No edema. Dermatologic--normal skin turgor, normal color, no abnormal lymph nodes, no rash. Neurologic--cranial nerves II through XII grossly intact. Rheumatologic--normal range of motion. Psychiatric--normal affect. Results & Data Results & Data ([facility]) Vital Signs (Past 12 Hours) Vital Signs Temp Pulse Pulse Resp BP Pulse Ox 03/19/21 11:58 97.0 F L 96 H 20 133/77 91 03/19/21 11:20 97 H 33 H 92 03/19/21 07:45 91 H 91 H 26 H 95 03/19/21 07:21 97.9 F 92 H 24 135/75 89 L 03/19/21 03:30 97.9 F 91 H 20 109/73 88 L 03/19/21 01:19 83 87 L PG Care Time/CCT Total # of Minutes Spent Total Time Spent with Patient: Total time spent is greater than 50% in coordination of care (as documented) at patient's floor/unit and/or counseling patient: Coding Level of Care Code 22216 Subseq Hosp Care Lvl 2 Diagnoses COVID-19 U07.1 Acute and chronic respiratory failure J96.20 Severe sepsis A41.9; R65.20 Fever R50.9 Fever type: unspecified COPD (chronic obstructive pulmonary disease) J44.1 COPD type: COPD with acute exacerbation Oxygen dependent Z99.81 CAD (coronary artery disease) I25.10 Coronary Disease-Associated Artery/Lesion type: [place] artery [place] vs. transplanted heart: [place] heart Associated angina: without angina Atrial fibrillation, permanent I48.21 Chronic diastolic congestive heart failure I50.32 HTN (hypertension), benign I10 SHIRA (obstructive sleep apnea) G47.33 Morbid obesity E66.01 Time Spent (min) 35 (1) Fever Fever type: unspecified Qualified Code(s): R50.9 - Fever, unspecified (2) COPD (chronic obstructive pulmonary disease) COPD type: COPD with acute exacerbation Qualified Code(s): J44.1 - Chronic obstructive pulmonary disease with (acute) exacerbation (3) CAD (coronary artery disease) Coronary Disease-Associated Artery/Lesion type: [place] artery [place] vs. transplanted heart: [place] heart Associated angina: without angina Qualified C ode(s): I25.10 - Atherosclerotic heart disease of [place] coronary artery without angina pectoris
[2021-03-19 13:34] LABS: BUN Creatinine Ratio 39.1 (10-20); Calcium 8.6 mg/dl (8.5-10.1); Creatinine Clr Calc Pharmacy 99.7 ml/min; Est GFR (African American) 98.8 ml/min; Est GFR (Non-African American) 85.2 ml/min; Potassium 3.8 mmol/L (3.5-5.1)
[2021-03-19] MEDS: MULTIVITAMIN TAB PO SCH (14:41)
[2021-03-19] MEDS: ATORVASTATIN 40 MG TAB PO SCH (21:02)
[2021-03-19] MEDS ORDERED: SODIUM CHLORIDE 0.9% 1000ML 1,000 ML IV SCH (23:30)
[2021-03-20] MEDS: ALBUT/IPRATROP 3MG/0.5MG NEB 3 ML VIAL NEB PRN (02:57)
[2021-03-20 03:26] LABS: Base Excess ABG 15.2 mEq/L (-9-1.8); HCO3 ABG 40 mmol/L (19-24); Oxygen Saturation ABG 88.7 % (90-95); PCO2 ABG 51 mmHg (35-46); PO2 ABG 57 mmHg (80-95)
[2021-03-20 03:33] LABS: Allen Test POS (Pos)
[2021-03-20 03:34] LABS: pH ABG 7.51 (7.35-7.45)
[2021-03-20] MEDS: CYANOCOBALAMIN 500 MCG TABLET (VITAMIN B-12) PO SCH (07:54)
[2021-03-20] MEDS: PANTOprazole 40 MG TAB PO SCH (07:54)
[2021-03-20] MEDS: OMEGA-3 (PURIFIED FISH OIL) 1 GM CAP PO SCH (07:54)
[2021-03-20] MEDS: METOPROLOL SUCC 50MG EXT REL TAB PO SCH ×2 (07:55→21:42)
[2021-03-20] MEDS: CALCIUM 600MG + VIT D 400 IU TAB PO SCH ×2 (07:55→21:43)
[2021-03-20] MEDS: APIXABAN 5 MG TABLET PO SCH ×2 (07:55→21:42)
[2021-03-20] MEDS: FLUTICASONE FUROATE 100MCG 14 PUFFS/INHALER INH SCH (07:56)
[2021-03-20] MEDS: UMECLIDINIUM/VILANTEROL 62.5/25MCG 7 PUFFS/INHALER INH SCH (07:56)
[2021-03-20] MEDS: FERROUS SULFATE 325 MG TAB PO SCH (07:56)
[2021-03-20] MEDS: TRIAMCINOLONE ACET NASAL SPRAY 10.8ML BTL NAE SCH (07:56)
[2021-03-20] MEDS: BUMETANIDE 2 MG in SYRINGE 0 ML IV SCH (07:57)
[2021-03-20] MEDS: dexAMETHasone 8 MG in SYRINGE 0 ML IV SCH (07:57)
[2021-03-20] MEDS: POTASSIUM CHLORIDE 10 MEQ TABCR PO SCH (07:58)
[2021-03-20] MEDS: CEFEPIME 2,000 MG in SYRINGE 0 ML IV SCH ×2 (07:58→16:33)
[2021-03-20] MEDS: ALBUT/IPRATROP 3MG/0.5MG NEB 3 ML VIAL INH SCH ×2 (08:23→20:22)
--- NOTE | 2021-03-20 14:51 | Hospitalist Progress Note ---
Date of Service March 20, 2021 Assessment & Plan (1) COVID-19: Plan: This patient is a 75-year-old male with history of COPD, CAD, permanent atrial fibrillation on Eliquis, CKD stage III, chronic diastolic CHF, and iron deficiency anemia who presents to the ER with weakness and was found to be febrile and with a cough for 2 to 3 days, He was found to have a positive Covid-19 test. He is fully vaccinated but had not yet received his booster shot as he was having trouble getting scheduled. Chest x-ray shows evidence of infiltrates. Started on IV remdesivir, IV Decadron, increased to 8mg daily Also empiric IV azithromycin and cefepime for suspected bacterial infection as well. We will continue to monitor inflammatory markers. Wean oxygen as tolerated. Patient not a candidate for Baricitinib, CRP 6.5 yesterday, has been in the hospital >72 hrs (2) Acute and chronic respiratory failure: Plan: Secondary to COVID 19 PNA FILLER SPREADER was called this morning on account of desaturation ABG showed PH 7.44, Pco2 64, HCO3 42 Currently on BIPAP 16/10, 100% Patient open to intubation if needed Encourage prone positioning, if patient can tolerate (3) Metabolic alkalosis: Plan: most likely contraction alkalosis due to diuresis Bumex currently on hold Recheck ABG tomorrow morning (4) Severe sepsis: Plan: Sepsis is resolving. Most likely secondary to COVID-19 infection and superimposed bacterial pneumonia. Continue antibiotics and also treatment for Covid as per above Cultures negative so far stop abx tomorrow (5) Fever: Plan: -- resolved (6) COPD (chronic obstructive pulmonary disease): Plan: -- Continue usual inhalers and nebulizer treatments. -- Continue supplemental oxygen. -- IV Dexamethasone 8 mg daily. (7) Oxygen dependent: Plan: -- Chronically on 4 LNC of O2 at home. Currently on BIPAP 16/10, 100% (8) CAD (coronary artery disease): Plan: With history of RCA stent No chest pain -Continue Toprol XL 200 mg b.i.d. -Continue Atorvastatin 80 mg daily. -Continue apixaban (9) Atrial fibrillation, permanent: Plan: Patient has permanent atrial fibrillation and typically has a slow ventricular response. His heart rate is likely elevated due to his acute illness -Continue Toprol XL 200 mg b.i.d.. -Continue Eliquis 5 mg b.i.d. Continue to monitor on telemetry (10) Chronic diastolic congestive heart failure: Plan: He currently appears euvolemic. -Bumex on hold on account of contarction alkalosis monitor I/O, daily weight (11) HTN (hypertension), benign: Plan: Blood pressures are controlled Continue home bumetanide, metoprolol (12) SHIRA (obstructive sleep apnea): Plan: Unclear if he has home CPAP, but some previous notes in the chart say that he does He has used BiPAP here in the past and has chronic CO2 retention as evidenced by elevated serum bicarbonate Order BiPAP for at nighttime 15 and can be adjusted by respiratory therapist as needed (13) Morbid obesity: Plan: Patient advised on diet and exercise Plan: DVT prophylaxis-apixaban Disposition-continued stay on telemetry with Covid precautions Admission and Anticipated Discharge Date Admission Date: March 14, 2021 Subjective Patient seen and examined this morning, still on BIPAP Review of Systems Review of Systems: All systems reviewed are negative, apart from the ones contained in the history. Physical Exam Physical Exam: The patient is awake, alert and oriented 3, well developed and well nourished, normocephalic and atraumatic, lying in bed and in no acute distress.obese HEENT--PERRL, EOMI, mucous membranes and oropharynx mildly dry Neck--supple. No JVD. No bruits. Thyroid normal, trachea midline, no adenopathy. Heart--normal S1 and S2. No murmurs, rubs or gallops. Lungs--Reduced air entry on auscultation Abdomen--normal bowel sounds and soft. Mild epigastric and left sided abdominal pain Extremities--no cyanosis or clubbing. No edema. Dermatologic--normal skin turgor, normal color, no abnormal lymph nodes, no rash. Neurologic--cranial nerves II through XII grossly intact. Rheumatologic--normal range of motion. Psychiatric--normal affect. Results & Data Results & Data ([facility]) Vital Signs (Past 12 Hours) Vital Signs Temp Pulse Pulse Resp BP Pulse Ox 03/20/21 11:40 98.8 F 98 H 20 120/64 89 L 03/20/21 10:51 96 H 26 H 89 L 12/20/21 08:03 88 24 91 03/20/21 08:02 88 26 H 91 03/20/21 08:00 98.4 F 84 20 126/72 91 03/20/21 04:40 85 27 H 89 L 03/20/21 02:58 83 84 24 88 L PG Care Time/CCT Total # of Minutes Spent Total Time Spent with Patient: Total time spent is greater than 50% in coordination of care (as documented) at patient's floor/unit and/or counseling patient: Coding Level of Care Code 61240 Subseq Hosp Care Lvl 2 Diagnoses COVID-19 U07.1 Acute and chronic respiratory failure J96.20 Severe sepsis A41.9; R65.20 Fever R50.9 Fever type: unspecified COPD (chronic obstructive pulmonary disease) J44.1 COPD type: COPD with acute exacerbation Oxygen dependent Z99.81 CAD (coronary artery disease) I25.10 Coronary Disease-Associated Artery/Lesion type: [place] artery [place] vs. transplanted heart: [place] heart Associated angina: without angina Atrial fibrillation, permanent I48.21 Chronic diastolic congestive heart failure I50.32 HTN (hypertension), benign I10 SHIRA (obstructive sleep apnea) G47.33 Morbid obesity E66.01 Metabolic alkalosis E87.3 Time Spent (min) 35 (1) Fever Fever type: unspecified Qualified Code(s): R50.9 - Fever, unspecified (2) COPD (chronic obstructive pulmonary disease) COPD type: COPD with acute exacerbation Qualified Code(s): J44.1 - Chronic obstructive pulmonary disease with (acute) exacerbation (3) CAD (coronary artery disease) Coronary Disease-Associated Artery/Lesion type: [place] artery [place] vs. transplanted heart: [place] heart Associated angina: without angina Qualified Code(s): I25.10 - Atherosclerotic heart disease of [place] coronary artery without angina pectoris
[2021-03-20] MEDS: MULTIVITAMIN TAB PO SCH (15:29)
[2021-03-20] MEDS: ATORVASTATIN 40 MG TAB PO SCH (21:43)
[2021-03-21] MEDS: CEFEPIME 2,000 MG in SYRINGE 0 ML IV SCH ×3 (00:11→16:51)
[2021-03-21] MEDS: ACETAMINOPHEN 325 MG TAB PO PRN ×3 (00:33→21:55)
[2021-03-21 07:09] LABS: Base Excess ABG 12.6 mEq/L (-9-1.8); HCO3 ABG 40 mmol/L (19-24); PCO2 ABG 60 mmHg (35-46); PO2 ABG 68 mmHg (80-95); pH ABG 7.44 (7.35-7.45)
[2021-03-21] MEDS: ALBUT/IPRATROP 3MG/0.5MG NEB 3 ML VIAL INH SCH ×2 (07:37→19:39)
[2021-03-21 07:39] LABS: Creatinine Clr Calc Pharmacy 99.7 ml/min; Est GFR (African American) 99.2 ml/min; Est GFR (Non-African American) 85.6 ml/min; Potassium 3.5 mmol/L (3.5-5.1)
[2021-03-21 07:41] LABS: C Reactive Protein 1.63 mg/dl (0-0.29)
[2021-03-21] MEDS: CYANOCOBALAMIN 500 MCG TABLET (VITAMIN B-12) PO SCH (09:05)
[2021-03-21] MEDS: dexAMETHasone 8 MG in SYRINGE 0 ML IV SCH (09:05)
[2021-03-21] MEDS: FLUTICASONE FUROATE 100MCG 14 PUFFS/INHALER INH SCH (09:05)
[2021-03-21] MEDS: METOPROLOL SUCC 50MG EXT REL TAB PO SCH ×2 (09:05→20:32)
[2021-03-21] MEDS: OMEGA-3 (PURIFIED FISH OIL) 1 GM CAP PO SCH (09:05)
[2021-03-21] MEDS: PANTOprazole 40 MG TAB PO SCH (09:05)
[2021-03-21] MEDS: FERROUS SULFATE 325 MG TAB PO SCH (09:06)
[2021-03-21] MEDS: CALCIUM 600MG + VIT D 400 IU TAB PO SCH ×2 (09:06→20:32)
[2021-03-21] MEDS: APIXABAN 5 MG TABLET PO SCH ×2 (09:06→20:31)
[2021-03-21] MEDS: POTASSIUM CHLORIDE 10 MEQ TABCR PO SCH (09:08)
[2021-03-21] MEDS: TRIAMCINOLONE ACET NASAL SPRAY 10.8ML BTL NAE SCH (09:08)
[2021-03-21] MEDS: UMECLIDINIUM/VILANTEROL 62.5/25MCG 7 PUFFS/INHALER INH SCH (09:08)
--- NOTE | 2021-03-21 12:09 | Hospitalist Progress Note ---
Date of Service March 21, 2021 Assessment & Plan (1) COVID-19: Plan: This patient is a 75-year-old male with history of COPD, CAD, permanent atrial fibrillation on Eliquis, CKD stage III, chronic diastolic CHF, and iron deficiency anemia who presents to the ER with weakness and was found to be febrile and with a cough for 2 to 3 days, He was found to have a positive Covid-19 test. He is fully vaccinated but had not yet received his booster shot as he was having trouble getting scheduled. Chest x-ray shows evidence of infiltrates. Started on IV remdesivir, IV Decadron, increased to 8mg daily Also empiric IV azithromycin and cefepime for suspected bacterial infection as well. We will continue to monitor inflammatory markers. Wean oxygen as tolerated. Patient not a candidate for Baricitinib due to level of CRP and length of hospital stay (2) Acute and chronic respiratory failure: Plan: Secondary to COVID 19 PNA Currently on BIPAP 16/10, 100% Patient open to intubation if needed Encourage prone positioning, if patient can tolerate (3) Metabolic alkalosis: Plan: Now resolved, ABG back to baseline Was most likely contraction alkalosis due to diuresis Bumex currently on hold (4) Severe sepsis: Plan: Resolved Completed a course of antibiotics (5) Fever: Plan: -- resolved (6) COPD (chronic obstructive pulmonary disease): Plan: -- Continue usual inhalers and nebulizer treatments. -- Continue supplemental oxygen. -- IV Dexamethasone 8 mg daily. (7) Oxygen dependent: Plan: -- Chronically on 4 LNC of O2 at home. Currently on BIPAP 16/10, 100% (8) CAD (coronary artery disease): Plan: With history of RCA stent No chest pain -Continue Toprol XL 200 mg b.i.d. -Continue Atorvastatin 80 mg daily. -Continue apixaban (9) Atrial fibrillation, permanent: Plan: Patient has permanent atrial fibrillation and typically has a slow ventricular response. His heart rate is likely elevated due to his acute illness -Continue Toprol XL 200 mg b.i.d.. -Continue Eliquis 5 mg b.i.d. Continue to monitor on telemetry (10) Chronic diastolic congestive heart failure: Plan: He currently appears euvolemic. -Bumex on hold on account of contarction alkalosis monitor I/O, daily weight (11) HTN (hypertension), benign: Plan: Blood pressures are controlled Continue home bumetanide, metoprolol (12) SHIRA (obstructive sleep apnea): Plan: Unclear if he has home CPAP, but some previous notes in the chart say that he does He has used BiPAP here in the past and has chronic CO2 retention as evidenced by elevated serum bicarbonate Order BiPAP for at nighttime 15/7 and can be adjusted by respiratory therapist as needed (13) Morbid obesity: Plan: Patient advised on diet and exercise (14) Nutrition deficiency due to insufficient food: Plan: Due to him being on continuos BIPAP, he has limited access to food will supplement his diet with ensure and glucerna he can take quick sips in between BIPAP Plan: DVT prophylaxis-apixaban Disposition-continued stay on telemetry with Covid precautions Admission and Anticipated Discharge Date Admission Date: March 14, 2021 Subjective Patient seen and examined this morning, still on BIPAP Review of Systems Review of Systems: All systems reviewed are negative, apart from the ones contained in the history. Physical Exam Physical Exam: The patient is awake, alert and oriented 3, well developed and well nourished, normocephalic and atraumatic, lying in bed and in no acute distress.obese HEENT--PERRL, EOMI, mucous membranes and oropharynx mildly dry Neck--supple. No JVD. No bruits. Thyroid normal, trachea midline, no adenopathy. Heart--normal S1 and S2. No murmurs, rubs or gallops. Lungs--Reduced air entry on auscultation Abdomen--normal bowel sounds and soft. Mild epigastric and left sided abdominal pain Extremities--no cyanosis or clubbing. No edema. Dermatologic--normal skin turgor, normal color, no abnormal lymph nodes, no rash. Neurologic--cranial nerves II through XII grossly intact. Rheumatologic--normal range of motion. Psychiatric--normal affect. Results & Data Results & Data ([facility]) Vital Signs (Past 12 Hours) Vital Signs Temp Pulse Pulse Resp BP Pulse Ox 03/21/21 11:35 84 30 H 95 03/21/21 07:39 75 73 24 95 03/21/21 07:34 97.7 F 82 20 121/67 94 03/21/21 03:32 73 28 H 93 03/21/21 02:47 97.9 F 82 18 125/70 90 PG Care Time/CCT Total # of Minutes Spent Total Time Spent with Patient: Total time spent is greater than 50% in coordination of care (as documented) at patient's floor/unit and/or counseling patient: Coding Level of Care Code 16591 Subseq Hosp Care Lvl 2 Diagnoses COVID-19 U07.1 Acute and chronic respiratory failure J96.20 Metabolic alkalosis E87.3 Severe sepsis A41.9; R65.20 Fever R50.9 Fever type: unspecified COPD (chronic obstructive pulmonary disease) J44.1 COPD type: COPD with acute exacerbation Oxygen dependent Z99.81 CAD (coronary artery disease) I25.10 Coronary Disease-Associated Artery/Lesion type: [place] artery [place] vs. transplanted heart: [place] heart Associated angina: without angina Atrial fibrillation, permanent I48.21 Chronic diastolic congestive heart failure I50.32 HTN (hypertension), benign I10 SHIRA (obstructive sleep apnea) G47.33 Morbid obesity E66.01 Nutrition deficiency due to insufficient food E63.9; T73.0XXA Time Spent (min) 35 (1) Fever Fever type: unspecified Qualified Code(s): R50.9 - Fever, unspecified (2) COPD (chronic obstructive pulmonary disease) COPD type: COPD with acute exacerbation Qualified Code(s): J44.1 - Chronic obstructive pulmonary disease with (acute) exacerbation (3) CAD (coronary artery disease) Coronary Disease-Associated Artery/Lesion type: [place] artery [place] vs. transplanted heart: [place] heart Associated angina: without angina Qualified Code(s): I25.10 - Atherosclerotic heart disease of [place] coronary artery without angina pectoris
[2021-03-21] MEDS: MULTIVITAMIN TAB PO SCH (16:51)
[2021-03-21] MEDS: ATORVASTATIN 40 MG TAB PO SCH (20:31)
[2021-03-22] MEDS: ALBUT/IPRATROP 3MG/0.5MG NEB 3 ML VIAL INH SCH ×2 (07:44→19:44)
[2021-03-22] MEDS: dexAMETHasone 8 MG in SYRINGE 0 ML IV SCH (09:20)
[2021-03-22] MEDS: METOPROLOL SUCC 50MG EXT REL TAB PO SCH ×2 (09:21→22:02)
[2021-03-22] MEDS: APIXABAN 5 MG TABLET PO SCH ×2 (09:21→22:02)
[2021-03-22] MEDS: UMECLIDINIUM/VILANTEROL 62.5/25MCG 7 PUFFS/INHALER INH SCH (09:21)
[2021-03-22] MEDS: CALCIUM 600MG + VIT D 400 IU TAB PO SCH ×2 (09:21→22:03)
[2021-03-22] MEDS: POTASSIUM CHLORIDE 10 MEQ TABCR PO SCH (09:21)
[2021-03-22] MEDS: CYANOCOBALAMIN 500 MCG TABLET (VITAMIN B-12) PO SCH (09:22)
[2021-03-22] MEDS: OMEGA-3 (PURIFIED FISH OIL) 1 GM CAP PO SCH (09:22)
[2021-03-22] MEDS: FERROUS SULFATE 325 MG TAB PO SCH (09:22)
[2021-03-22] MEDS: PANTOprazole 40 MG TAB PO SCH (09:22)
[2021-03-22] MEDS: TRIAMCINOLONE ACET NASAL SPRAY 10.8ML BTL NAE SCH (09:23)
[2021-03-22] MEDS: FLUTICASONE FUROATE 100MCG 14 PUFFS/INHALER INH SCH (09:23)
[2021-03-22 09:46] LABS: BUN Creatinine Ratio 39.6 (10-20); C Reactive Protein 1.4 mg/dl (0-0.29); Calcium 8.9 mg/dl (8.5-10.1); Creatinine Clr Calc Pharmacy 81.9 ml/min; Est GFR (African American) 83.1 ml/min; Est GFR (Non-African American) 71.7 ml/min; Potassium 3.8 mmol/L (3.5-5.1)
[2021-03-22] MEDS: BUMETANIDE 1 MG TAB PO SCH (15:34)
[2021-03-22] MEDS: MULTIVITAMIN TAB PO SCH (15:34)
--- NOTE | 2021-03-22 16:39 | Hospitalist Progress Note ---
Date of Service March 22, 2021 Assessment & Plan (1) COVID-19: Plan: This patient is a 75-year-old male with history of COPD, CAD, permanent atrial fibrillation on Eliquis, CKD stage III, chronic diastolic CHF, and iron deficiency anemia who presents to the ER with weakness and was found to be febrile and with a cough for 2 to 3 days, He was found to have a positive Covid-19 test. He is fully vaccinated but had not yet received his booster shot as he was having trouble getting scheduled. -Is on IV Decadroncontinue -Treated with remdesivir -Was on antibiotics for suspected secondary bacterial pneumoniahas finished a week of therapy. Currently his exam and inflammatory markers are not consistent with ongoing bacterial processwill hold on further antibiotics at this time, but close vigilance. -Continue supportive care -Continue diuretics with daily follow-up for goal of negative fluid balance/keeping slightly on the dry side (2) Nutrition deficiency due to insufficient food: Plan: Desaturates very quickly off of BiPAP, even on high flow nasal cannula. Has really not been able to take in much of any meaningful nutrition. This is concerning given how long he has been in the hospital/how long he has been sick, and the fact that he is still requiring BiPAP with high FiO2, not even able to tolerate high flow nasal cannula. To that end, weakness and fatiguing from malnutrition, as well as more subacute to chronic complications from malnutrition are starting to become even more of a concernafter discussion of risk and benefit with patient, we both agree that we should proceed with TPN. Once he is able to take n.p.o. meaningfully, obviously we will stop this as quickly as possible (3) Acute and chronic respiratory failure: Plan: Secondary to COVID 19 PNA Currently on BIPAP 14/01, 100% Patient open to intubation if needed Encourage prone positioning, if patient can tolerate -Continue BiPAP and supportive care (4) Metabolic alkalosis: Plan: Now resolved, ABG back to baseline Suspect chronic hypoventilation due to obesity and COPD, acutely alkalosis was probably a bit worse from a contraction alkalosis. (5) Severe sepsis: Plan: Resolved Completed a course of antibiotics -No clear indication for ongoing antibiotics at this time. Continue to follow closely and reassess (6) Fever: Plan: -- resolved (7) COPD (chronic obstructive pulmonary disease): Plan: -- Continue usual inhalers and nebulizer treatments. -- Continue supplemental oxygen. -- IV Dexamethasone 8 mg daily. --No wheezing noted (8) Oxygen dependent: Plan: -- Chronically on 4 LNC of O2 at home. Currently on BIPAP (9) CAD (coronary artery disease): Plan: With history of RCA stent No chest pain today -Continue Toprol XL 200 mg b.i.d. -Continue Atorvastatin 80 mg daily. -Continue apixaban (10) Atrial fibrillation, permanent: Plan: Rate controlled, anticoagulated (11) Chronic diastolic congestive heart failure: Plan: He currently appears euvolemic. -Cautiously resume Bumex, follow basic metabolic panel (12) HTN (hypertension), benign: Plan: Pressures are acceptable given the situation (13) SHIRA (obstructive sleep apnea): Plan: On BiPAP currently. Obviously will need outpatient follow-up (14) Morbid obesity: Plan: BMI 46.6 likely a strong contributor to his chronic respiratory issues, as well as probably complicating his acute presentation Plan: DVT prophylaxis-apixaban Disposition-continued stay on telemetry with Covid precautions Admission and Anticipated Discharge Date Admission Date: March 14, 2021 Subjective Feeling surprisingly okay. No complaints of shortness of breath. Main complaint is not being able to eat due to BiPAP. Discussed with nursing and at the bedside discussed with respiratory therapyunfortunately even on high flow nasal cannula he desaturates to the low 80s fairly rapidly. Again patient really has no respiratory complaints, no chest pain or shortness of breath. Later updated . Review of Systems Review of Systems: All systems reviewed & are unremarkable except as noted in HPI & below Physical Exam Physical Exam: In general he is awake and alert resting on BiPAP no distress. HEENT normocephalic atraumatic mucous membranes moist. Cardio is distant. Lungs show diminished air entry throughout although no focal findings/no rales rhonchi or wheezes, good effort, fortunately/surprisingly no accessory muscle use. Neuro shows cranial nerves II through XII be grossly intact no focal motor deficits. Skin without rashes, pallor, icterus. Results & Data Results & Data ([facility]) Vital Signs (Past 12 Hours) Vital Signs Temp Pulse Pulse Resp BP BP Pulse Ox 03/22/21 15:40 98.2 F 87 22 134/84 90 03/22/21 14:49 90 31 H 90 03/22/21 13:08 81 32 H 85 L 03/22/21 11:20 98.2 F 79 22 129/81 91 03/22/21 11:01 76 35 H 93 03/22/21 08:18 85 33 H 89 L 03/22/21 07:58 98.2 F 87 22 155/90 H 91 03/22/21 07:54 88 20 90 03/22/21 07:44 80 80 23 93 PG Care Time/CCT Total # of Minutes Spent Total Time Spent with Patient: Total time spent is greater than 50% in coordination of care (as documented) at patient's floor/unit and/or counseling patient: Coding Level of Care Code 81070 Subseq Hosp Care Lvl 3 Diagnoses COVID-19 U07.1 Acute and chronic respiratory failure J96.20 Metabolic alkalosis E87.3 Severe sepsis A41.9; R65.20 Fever R50.9 Fever type: unspecified COPD (chronic obstructive pulmonary disease) J44.1 COPD type: COPD with acute exacerbation Oxygen dependent Z99.81 CAD (coronary artery disease) I25.10 Coronary Disease-Associated Artery/Lesion type: [place] artery [place] vs. transplanted heart: [place] heart Associated angina: without angina Atrial fibrillation, permanent I48.21 Chronic diastolic congestive heart failure I50.32 HTN (hypertension), benign I10 SHIRA (obstructive sleep apnea) G47.33 Morbid obesity E66.01 Nutrition deficiency due to insufficient food E63.9; T73.0XXA (1) Fever Fever type: unspecified Qualified Code(s): R50.9 - Fever, unspecified (2) COPD (chronic obstructive pulmonary disease) COPD type: COPD with acute exacerbation Qualified Code(s): J44.1 - Chronic obstructive pulmonary disease with (acute) exacerbation (3) CAD (coronary artery disease) Coronary Disease-Associated Artery/Lesion type: [place] artery [place] vs. transplanted heart: [place] heart Associated angina: without angina Qualified Code(s): I25.10 - Atherosclerotic heart disease of [place] coronary artery without angina pectoris
--- NOTE | 2021-03-22 17:54 | XRay Report ---
XR chest 1V portable HISTORY: 75 years-old Male PICC placement status post placement of a left-sided PICC COMPARISON: Chest radiograph 03/14/2021 TECHNIQUE: Portable AP view of the chest FINDINGS: A left-sided PICC is noted with distal tip in the expected location of the upper SVC. Unchanged enlar gement of the cardiac silhouette. No pneumothorax. Trace pleural effusions. Reticular interstitial co arsening with ill-defined bibasilar, airspace opacities. Degenerative changes of the spine and left s houlder. Right shoulder arthroplasty. IMPRESSION: 1. Status post placement of a left-sided PICC with distal tip in the expected location of the upper S VC. No postprocedural pneumothorax. 2. Cardiomegaly with suggested pulmonary edema 3. Trace pleural effusions with bibasilar opacities suggestive of atelectasis versus pneumonitis. ACT 112: Negative or not required by law. The above report was generated using voice recognition software. It may contain grammatical, syntax o r spelling errors. Electronically signed by: Tristan Santana M.D. 03/22/2021 5:53 PM
[2021-03-22] MEDS: ATORVASTATIN 40 MG TAB PO SCH (22:01)
[2021-03-23] MEDS ORDERED: TPN/PPN CONSULT PHARMACY PRN (06:00)
[2021-03-23 06:25] LABS: Basophils # (auto) 0.02 K/uL (0-0.2); Basophils % (auto) 0.2 %; Eosinophils # (auto) 0.02 K/uL (0-0.5); Eosinophils % (auto) 0.2 %; Hematocrit (blood only) 40.1 % (42-52); Hemoglobin 12.6 g/dL (14.0-18.0); Immature Granulocytes % (auto) 0.8 %; Lymphocytes # (auto) 0.63 K/uL (1.2-3.4); Lymphocytes % (auto) 5.2 %; Mean Corpuscular Hemoglobin 31.5 pg (25-34); Mean Corpuscular Hgb Conc 31.4 g/dL (32-36); Mean Corpuscular Volume 100.3 fL (80-100); Mean Platelet Volume 10.9 fL (7.4-10.4); Monocytes # (auto) 1.04 K/uL (0.11-0.59); Monocytes % (auto) 8.5 %; Neutrophils # (auto) 10.39 K/uL (1.4-6.5); Neutrophils % (auto) 85.1 %; Platelet Count 302 K/uL (130-400); RDW Coefficient of Variation 17.1 % (11.5-14.5); RDW Standard Deviation 62.7 fL (36.4-46.3)
[2021-03-23 07:10] LABS: BUN Creatinine Ratio 45.7 (10-20); Calcium 9.2 mg/dl (8.5-10.1); Creatinine Clr Calc Pharmacy 92.8 ml/min; Est GFR (African American) 97.9 ml/min; Est GFR (Non-African American) 84.4 ml/min; Magnesium 2.7 mg/dl (1.8-2.4); Phosphorus 4.2 mg/dl (2.5-4.9); Potassium 3.6 mmol/L (3.5-5.1)
[2021-03-23 07:12] LABS: Bilirubin,Total 0.9 mg/dl (0.2-1)
[2021-03-23] MEDS: ALBUT/IPRATROP 3MG/0.5MG NEB 3 ML VIAL INH SCH ×2 (07:13→19:42)
[2021-03-23] MEDS: BUMETANIDE 1 MG TAB PO SCH (09:02)
[2021-03-23] MEDS: METOPROLOL SUCC 50MG EXT REL TAB PO SCH ×2 (09:58→22:49)
[2021-03-23] MEDS: PANTOprazole 40 MG TAB PO SCH (09:58)
[2021-03-23] MEDS: FLUTICASONE FUROATE 100MCG 14 PUFFS/INHALER INH SCH (09:58)
[2021-03-23] MEDS: CYANOCOBALAMIN 500 MCG TABLET (VITAMIN B-12) PO SCH (09:59)
[2021-03-23] MEDS: FERROUS SULFATE 325 MG TAB PO SCH (09:59)
[2021-03-23] MEDS: OMEGA-3 (PURIFIED FISH OIL) 1 GM CAP PO SCH (09:59)
[2021-03-23] MEDS: CALCIUM 600MG + VIT D 400 IU TAB PO SCH ×2 (09:59→22:51)
[2021-03-23] MEDS: UMECLIDINIUM/VILANTEROL 62.5/25MCG 7 PUFFS/INHALER INH SCH (10:00)
[2021-03-23] MEDS: BUMETANIDE 2 MG in SYRINGE 0 ML IV SCH ×2 (10:01→16:40)
[2021-03-23] MEDS: dexAMETHasone 8 MG in SYRINGE 0 ML IV SCH (10:01)
[2021-03-23] MEDS: TRIAMCINOLONE ACET NASAL SPRAY 10.8ML BTL NAE SCH (10:01)
[2021-03-23] MEDS: POTASSIUM CHLORIDE 10 MEQ TABCR PO SCH (10:02)
[2021-03-23] MEDS: APIXABAN 5 MG TABLET PO SCH ×2 (10:02→22:47)
[2021-03-23 10:07] LABS: Base Excess VBG 13.7 mEq/L; HCO3 VBG 41 mmol/L; PCO2 VBG 66 mmHg (38-50); PO2 VBG 29 mmHg; pH VBG 7.41 (7.36-7.41)
[2021-03-23 10:11] LABS: Oxygen Saturation VBG < 60.0 %
[2021-03-23] MEDS: ACETAMINOPHEN 325 MG TAB PO PRN (10:54)
--- NOTE | 2021-03-23 12:01 | Pharmacy Report ---
PHA: Parenteral Nutrition Con - Date of Service March 23, 2021 - Scope Pharmacy was consulted on 03/23 to manage parenteral nutrition orders for this patient. - Subjective The patient is currently on day 1 of central parenteral nutrition for prolonged NPO status, unable to take oral intake due to bipap - Objective Height: 5 ft 6 in Weight: 128.6 kg Diet: Regular Intake & Output (24hrs):: Intake & Output 03/21/21 03/22/21 03/23/21 03/24/21 06:59 06:59 06:59 06:59 Intake Total 650 / 650 370 / 370 350 / 350 Output Total 2375 / 2375 1300 / 1300 3076 / 3076 Balance -1725 / -1725 -930 / -930 -2726 / -2726 Weight 137.4 kg 131 kg 128.6 kg Laboratory Data (Last 24 Hr):: 03/23/21 05:50 Sodium 140 Potassium 3.6 Chloride 97 L Carbon Dioxide 40 H BUN 41 H Creatinine 0.90 Glucose 100 H Calcium 9.2 Phosphorus 4.2 Magnesium 2.7 H Total Bilirubin 0.9 AST 36 ALT 30 Alkaline Phosphatase 48 Triglycerides 121 Nutrition Assessment:: Please refer to the Notes section of the EMR for the most recent photogrammetry 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 - Plan For day 1 of PN administration, the following will be ordered. PICC line placed 03/22. Patient with prolonged NPO status, currently with COVID and on bipap. Per notes, patient quickly decompensates while taken off bipap and not able to take much of meaningful nutrition. Plan to trial TPN Macronutrients Amino acids 80 grams/day Dextrose 140 grams/day Lipids 50 grams/day Micronutrients Sodium chloride 80 mEq Potassium phosphate 15 mMol Multivitamins 10 mL Trace Elements 1 mL Additional additives: receiving PO protonix Total volume 1048 mL to be infused over 24 hrs will provide 1296 kcal/day Labs, as indicated, will be ordered per protocol Pharmacy will continue to follow and adjust parenteral nutrition orders on a daily basis. Thank you for allowing us to participate in the care of this patient.
[2021-03-23] MEDS ORDERED: CLINOLIPID 20% IV FAT EMULSION 250 ML IV SCH (16:00)
[2021-03-23] MEDS ORDERED: CENTRAL TPN IV SCH (16:00)
[2021-03-23] MEDS ORDERED: DEXTROSE 10% 1,000 ML IV PRN (16:00)
[2021-03-23] MEDS ORDERED: AMINO ACID 8% IV SCH (16:00)
[2021-03-23] MEDS ORDERED: [UNRECOGNIZED DRUG - OTHER] IV SCH (16:00)
[2021-03-23] MEDS: MULTIVITAMIN TAB PO SCH (16:37)
--- NOTE | 2021-03-23 19:09 | Hospitalist Progress Note ---
Date of Service March 23, 2021 Assessment & Plan (1) COVID-19: Plan: This patient is a 75-year-old male with history of COPD, CAD, permanent atrial fibrillation on Eliquis, CKD stage III, chronic diastolic CHF, and iron deficiency anemia who presents to the ER with weakness and was found to be febrile and with a cough for 2 to 3 days, He was found to have a positive Covid-19 test. He is fully vaccinated but had not yet received his booster shot as he was having trouble getting scheduled. -Is on IV Decadroncontinue -Treated with remdesivir -Was on antibiotics for suspected secondary bacterial pneumoniahas finished a week of therapy. Currently his exam and inflammatory markers are not consistent with ongoing bacterial processwill hold on further antibiotics at this time, but continue close vigilance. -Continue supportive care -Continue diuretics with daily follow-up for goal of negative fluid balance/keeping slightly on the dry side (follow basic metabolic panelalkalosis is probably 1 part contraction alkalosis at times, but also appears to have a chronic metabolic alkalosis related to chronic respiratory acidosis from hypoventilation) (2) Nutrition deficiency due to insufficient food: Plan: Desaturates very quickly off of BiPAP, even on high flow nasal cannula. Has really not been able to take in much of any meaningful nutrition. This is concerning given how long he has been in the hospital/how long he has been sick, and the fact that he is still requiring BiPAP with high FiO2, not even able to tolerate high flow nasal cannula for short periods of time without significant desaturation. To that end, weakness and fatiguing from malnutrition, as well as more subacute to chronic complications from malnutrition are starting to become even more of a concernafter discussion of risk and benefit with patient, we both agree that we should proceed with TPN. Starting today (3) Acute and chronic respiratory failure: Plan: Secondary to COVID 19 PNA Currently on BIPAP 100% FiO2 currently Patient open to intubation if needed Encourage prone positioning, if patient can tolerate -Continue BiPAP and supportive care -Continue diuretics to maintain negative fluid balance (4) Metabolic alkalosis: Plan: Suspect chronic hypoventilation due to obesity and COPD, acutely alkalosis was probably a bit worse from a contraction alkalosis. (5) Severe sepsis: Plan: Resolved Completed a course of antibiotics -No clear indication for ongoing antibiotics at this time. Continue to follow closely and reassess (6) Fever: Plan: -- resolved (7) COPD (chronic obstructive pulmonary disease): Plan: -- Continue usual inhalers and nebulizer treatments. -- Continue supplemental oxygen. -- IV Dexamethasone 8 mg daily. --No wheezing noted (8) Oxygen dependent: Plan: -- Chronically on 4 LNC of O2 at home. Currently on BIPAP (9) CAD (coronary artery disease): Plan: With history of RCA stent No chest pain noted -Continue Toprol XL 200 mg b.i.d. -Continue Atorvastatin 80 mg daily. -Continue apixaban (10) Atrial fibrillation, permanent: Plan: Rate controlled, anticoagulated (11) Chronic diastolic congestive heart failure: Plan: He currently appears euvolemic to slightly dry - but startign TPN as above. -Cautiously continue Bumex, follow basic metabolic panel (12) HTN (hypertension), benign: Plan: Pressures are acceptable given the situation (13) SHIRA (obstructive sleep apnea): Plan: On BiPAP currently. Obviously will need outpatient follow-up (14) Morbid obesity: Plan: BMI 46.6 likely a strong contributor to his chronic respiratory issues, as well as probably complicating his acute presentation Plan: DVT prophylaxis-apixaban Disposition-continued stay on telemetry with Covid precautions Admission and Anticipated Discharge Date Admission Date: March 14, 2021 Subjective Biggest complaint is dry mouth/dry tongue. Very upset that he cannot eat/drink. However, nursing still notes that he desaturates very quickly with the BiPAP off. Interestingly, he still does not really feel any shortness of breath/chest pressure/etc. PIC line placed yesterday. No other new complaints, just very upset about having BiPAP mask on because of how it pertains to not being able to eat and drink Review of Systems Review of Systems: All systems reviewed & are unremarkable except as noted in HPI & below Physical Exam Physical Exam: Awake and alert hard of hearing but hears well with deep loud voice, on BiPAP with 100% FiO2, surprisingly no distress. HEENT normocephalic atraumatic, BiPAP with tight seal across face t. Lungs are diminished throughout, no adventitious soundsno rales rhonchi or wheezes moderate effort difficult exam due to size and positioning and BiPAP, no accessory muscle use. Abdomen is soft nondistended nontender no masses organomegaly. Extremities without cyanosis or clubbing, trace edema, no calf tenderness. Neuro with cranial nerves II through XII are grossly intact gross motor and sensory are intact. Mental status finds him to be oriented but fairly grumpy about the inability to safely have the mask off for eating and drinking. Results & Data Results & Data ([facility]) Vital Signs (Past 12 Hours) Vital Signs Temp Pulse Pulse Resp BP BP Pulse Ox 03/23/21 15:43 83 03/23/21 15:30 77 22 93 03/23/21 15:00 97.9 F 95 H 22 120/71 95 03/23/21 11:52 97.9 F 83 22 110/74 90 03/23/21 11:15 90 24 93 03/23/21 07:26 97.9 F 85 22 123/76 90 03/23/21 07:14 86 24 92 03/23/21 07:13 86 24 92 PG Care Time/CCT Total # of Minutes Spent Total Time Spent with Patient: Total time spent is greater than 50% in coordination of care (as documented) at patient's floor/unit and/or counseling patient: Coding Level of Care Code 42501 Subseq Hosp Care Lvl 3 Diagnoses COVID-19 U07.1 Nutrition deficiency due to insufficient food E63.9; T73.0XXA Acute and chronic respiratory failure J96.20 Metabolic alkalosis E87.3 Severe sepsis A41.9; R65.20 Fever R50.9 Fever type: unspecified COPD (chronic obstructive pulmonary disease) J44.1 COPD type: COPD with acute exacerbation Oxygen dependent Z99.81 CAD (coronary artery disease) I25.10 Coronary Disease-Associated Artery/Lesion type: [place] artery [place] vs. transplanted heart: [place] heart Associated angina: without angina Atrial fibrillation, permanent I48.21 Chronic diastolic congestive heart failure I50.32 HTN (hypertension), benign I10 SHIRA (obstructive sleep apnea) G47.33 Morbid obesity E66.01 (1) Fever Fever type: unspecified Qualified Code(s): R50.9 - Fever, unspecified (2) COPD (chronic obstructive pulmonary disease) COPD type: COPD with acute exacerbation Qualified Code(s): J44.1 - Chronic obstructive pulmonary disease with (acute) exacerbation (3) CAD (coronary artery disease) Coronary Disease-Associated Artery/Lesion type: [place] artery [place] vs. transplanted heart: [place] heart Associated angina: without angina Qualified Code(s): I25.10 - Atherosclerotic heart disease of [place] coronary artery without angina pectoris
[2021-03-23] MEDS ORDERED: STOP CLINOLIPID ONE (22:00)
[2021-03-23] MEDS: ATORVASTATIN 40 MG TAB PO SCH (22:51)
[2021-03-24 06:02] LABS: Base Excess VBG 12.7 mEq/L; pH VBG 7.43 (7.36-7.41)
[2021-03-24 06:06] LABS: Basophils # (auto) 0.01 K/uL (0-0.2); Basophils % (auto) 0.1 %; Eosinophils % (auto) 1.5 %; Hematocrit (blood only) 38.3 % (42-52); Hemoglobin 12.3 g/dL (14.0-18.0); Immature Granulocytes # (auto) 0.13 K/uL (0.00-0.02); Lymphocytes # (auto) 1.35 K/uL (1.2-3.4); Lymphocytes % (auto) 10.3 %; Mean Corpuscular Hemoglobin 32.2 pg (25-34); Mean Corpuscular Hgb Conc 32.1 g/dL (32-36); Mean Corpuscular Volume 100.3 fL (80-100); Mean Platelet Volume 11.3 fL (7.4-10.4); Monocytes # (auto) 0.37 K/uL (0.11-0.59); Monocytes % (auto) 2.8 %; Neutrophils # (auto) 11.09 K/uL (1.4-6.5); Neutrophils % (auto) 84.3 %; Platelet Count 290 K/uL (130-400); RDW Coefficient of Variation 17.2 % (11.5-14.5); RDW Standard Deviation 63.8 fL (36.4-46.3); Red Blood Count 3.82 M/uL (4.7-6.1); White Blood Count 13.15 K/uL (4.8-10.8)
[2021-03-24 07:24] LABS: Albumin Level 2.1 gm/dl (3.4-5.0); BUN Creatinine Ratio 46.9 (10-20); Calcium 8.9 mg/dl (8.5-10.1); Creatinine Clr Calc Pharmacy 101.8 ml/min; Est GFR (African American) 101.7 ml/min; Est GFR (Non-African American) 87.7 ml/min; Magnesium 2.3 mg/dl (1.8-2.4); Potassium 3.4 mmol/L (3.5-5.1)
[2021-03-24 07:33] LABS: Albumin Globulin Ratio 0.5 (0.9-2); Globulin 4.1 gm/dl (2.5-4.0); Phosphorus 3.2 mg/dl (2.5-4.9); Total Protein 6.2 gm/dl (6.4-8.2)
[2021-03-24] MEDS: CALCIUM 600MG + VIT D 400 IU TAB PO SCH ×2 (07:36→21:00)
[2021-03-24] MEDS: APIXABAN 5 MG TABLET PO SCH ×2 (07:36→21:00)
[2021-03-24] MEDS: CYANOCOBALAMIN 500 MCG TABLET (VITAMIN B-12) PO SCH (07:36)
[2021-03-24] MEDS: OMEGA-3 (PURIFIED FISH OIL) 1 GM CAP PO SCH (07:36)
[2021-03-24] MEDS: PANTOprazole 40 MG TAB PO SCH (07:36)
[2021-03-24] MEDS: METOPROLOL SUCC 50MG EXT REL TAB PO SCH ×2 (07:37→21:43)
[2021-03-24] MEDS: dexAMETHasone 8 MG in SYRINGE 0 ML IV SCH (07:37)
[2021-03-24] MEDS: FERROUS SULFATE 325 MG TAB PO SCH (07:37)
[2021-03-24] MEDS: BUMETANIDE 2 MG in SYRINGE 0 ML IV SCH ×2 (07:37→16:29)
[2021-03-24] MEDS: TRIAMCINOLONE ACET NASAL SPRAY 10.8ML BTL NAE SCH (07:38)
[2021-03-24] MEDS: FLUTICASONE FUROATE 100MCG 14 PUFFS/INHALER INH SCH (07:38)
[2021-03-24] MEDS: POTASSIUM CHLORIDE 10 MEQ TABCR PO SCH (07:43)
[2021-03-24] MEDS: ALBUT/IPRATROP 3MG/0.5MG NEB 3 ML VIAL INH SCH ×2 (07:55→20:19)
[2021-03-24 08:15] LABS: Bilirubin,Total 0.7 mg/dl (0.2-1)
[2021-03-24] MEDS: UMECLIDINIUM/VILANTEROL 62.5/25MCG 7 PUFFS/INHALER INH SCH (10:39)
[2021-03-24] MEDS: POTASSIUM CHLORIDE CRTAB 20 MEQ TABCR PO SCH ×2 (13:34→21:01)
[2021-03-24] MEDS ORDERED: CLINOLIPID 20% IV FAT EMULSION 250 ML IV SCH (16:00)
[2021-03-24] MEDS: DOCUSATE SODIUM 100 MG CAP PO PRN (16:28)
[2021-03-24] MEDS: AMINO ACID 8% IV SCH (16:29)
[2021-03-24] MEDS: CENTRAL TPN IV SCH (16:29)
[2021-03-24] MEDS: [UNRECOGNIZED DRUG - OTHER] IV SCH (16:29)
--- NOTE | 2021-03-24 18:50 | Hospitalist Progress Note ---
Date of Service March 24, 2021 Assessment & Plan (1) Pneumonia due to COVID-19 virus: Plan: severe, with resulting #2 below. Has had severe FiO2 requirements since admission - FiO2 near 100% for most of the last 7+ days, and high CPAP or HFNC requirements. Last few days unable to transition from CPAP to high-flow. day #11 dexamethasone. completed 5-day course of Remdesivir. completed 7-day course of IV abx in the event of bacterial superinfection. successfully stopped the CPAP this afternoon and changed over to HFNC. patient encouraged to perform consistent pulmonary toilet. repeat cxr in am. 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 (2) Acute on chronic respiratory failure with hypoxia and hypercapnia: Plan: acute component - #1, #3. chronic - COPD. usually on 4 L NC O2 at home. see above. (3) Acute on chronic diastolic (congestive) heart failure: Plan: cont IV bumex diuresis. has lost about 10kg of weight. appears to be approaching his dry weight. repeat labs am. (4) Atrial fibrillation, permanent: Plan: rates acceptable cont metoprolol cont eliquis BID cont tele (5) CAD (coronary artery disease): Plan: no ischemic sx's at this time cont statin, BB (6) COPD (chronic obstructive pulmonary disease): Plan: cont bronchodilators, steroids, home inhalers see above (7) HTN (hypertension), benign: Plan: controlled (8) Impaired fasting glucose: Plan: last HbA1C < 6% [id number], because of steroids & TPN, glucoses are running high novolog sliding scale for now (9) Morbid obesity: Plan: BMI 45 (10) SHIRA (obstructive sleep apnea): Plan: typically on CPAP at home (11) DVT prophylaxis: Plan: eliquis 5mg BID (12) Hypokalemia: Plan: replace repeat BMP am Plan: due to inability to take enough nutrition since admission TPN was started a few days ago by Dr Ariza via PICC line pt just given the opportunity to eat this evening for first time in several days thus keep TPN on-board for now extensively updated by phone this evening Admission and Anticipated Discharge Date Admission Date: March 14, 2021 Subjective pt was on CPAP during my visit about 5 minutes into the visit the respiratory therapist came into the room I asked the RT to trial him back on HFNC we tried 35 L with 80% FiO2 high-flow and he was satting 90-92% the patient c/o the high-pitched noise that the HF was making he denied any dyspnea mild cough very weak did c/o thirst remains on TPN via PICC line due to anorexia and inability to take any meaningful nutrition in the last week tele overnight - afib Review of Systems Review of Systems: gen - weak, fatigue, anorexia; no fever cv - no chest pain pulm - no dyspnea at rest GI - no abd pain, N/V Physical Exam Physical Exam: gen - morbidly obese, NAD, irritable mouth - MM without lesions neck - unable to assess for JVD heart - irregular, s1 s2 lungs - decreased BS; wheezes right lung; no wheezes left lung; bibasilar rales (mild); no increased work of breathing abd - soft NT ND BS+ ext - no edema, pulses 2+ b/l skin - venous stasis changes b/l shins vascular - left arm PICC intact psych - oriented x 3 Results & Data Results & Data ([facility]) Vital Signs (Past 12 Hours) Vital Signs Temp Pulse Pulse Resp BP Pulse Ox 03/24/21 16:11 95 H 26 H 90 03/24/21 14:47 36.8 C 90 20 141/82 H 96 03/24/21 11:38 36.8 C 96 H 22 113/75 94 03/24/21 10:56 95 H 36 H 94 03/24/21 09:30 92 03/24/21 08:15 85 03/24/21 08:02 78 29 H 92 03/24/21 08:01 78 29 H 92 03/24/21 07:59 36.9 C 95 H 22 133/75 92 Laboratory Results Laboratory Results - last 24 hr 03/23/21 03/24/21 03/24/21 20:18 01:00 05:41 WBC 13.15 H RBC 3.82 L Hgb 12.3 L Hct 38.3 L MCV 100.3 H MCH 32.2 MCHC 32.1 RDW Std Deviation 63.8 H RDW Coeff of Ezekiel 17.2 H Plt Count 290 MPV 11.3 H Immature Gran % (Auto) 1.0 Neut % (Auto) 84.3 Lymph % (Auto) 10.3 [place] % (Auto) 2.8 Eos % (Auto) 1.5 Baso % (Auto) 0.1 Neut # (Auto) 11.09 H Lymph # (Auto) 1.35 [place] # (Auto) 0.37 Eos # (Auto) 0.20 Baso # (Auto) 0.01 Immature Gran # (Auto) 0.13 H VBG pH VBG pCO2 VBG pO2 VBG HCO3 VBG O2 Saturation VBG Base Excess Barometric Pressure Sodium Potassium Chloride Carbon Dioxide Anion Gap BUN Creatinine Est Cr Clr Drug Dosing Est GFR ( Amer) Est GFR (Non-Af Amer) BUN/Creatinine Ratio Glucose POC Glucose 135 H 111 H Calcium Phosphorus Magnesium Total Bilirubin AST ALT Alkaline Phosphatase Total Protein Albumin Globulin Albumin/Globulin Ratio 03/24/21 03/24/21 03/24/21 05:41 05:49 06:41 WBC RBC Hgb Hct MCV MCH MCHC RDW Std Deviation RDW Coeff of [place] Plt Count MPV Immature Gran % (Auto) Neut % (Auto) Lymph % (Auto) [place] % (Auto) Eos % (Auto) Baso % (Auto) Neut # (Auto) Lymph # (Auto) [place] # (Auto) Eos # (Auto) Baso # (Auto) Immature Gran # (Auto) VBG pH 7.43 H VBG pCO2 61 H VBG pO2 60 VBG HCO3 40 VBG O2 Saturation 89.0 VBG Base Excess 12.7 Barometric Pressure 730.3 Sodium Cancelled 140 Potassium Cancelled 3.4 L Chloride Cancelled 99 Carbon Dioxide Cancelled 35 H Anion Gap Cancelled 5.0 BUN Cancelled 39 H Creatinine Cancelled 0.82 Est Cr Clr Drug Dosing Cancelled 101.8 Est GFR ( Amer) Cancelled 101.7 Est GFR (Non-Af Amer) Cancelled 87.7 BUN/Creatinine Ratio Cancelled 46.9 H Glucose Cancelled 132 H POC Glucose Calcium Cancelled 8.9 Phosphorus Cancelled 3.2 D Magnesium Cancelled 2.3 Total Bilirubin Cancelled 0.7 AST Cancelled 44 H ALT Cancelled 34 Alkaline Phosphatase Cancelled 45 Total Protein Cancelled 6.2 L Albumin Cancelled 2.1 L Globulin Cancelled 4.1 H Albumin/Globulin Ratio Cancelled 0.5 L 03/24/21 16:50 WBC RBC Hgb Hct MCV MCH MCHC RDW Std Deviation RDW Coeff of Ezekiel Plt Count MPV Immature Gran % (Auto) Neut % (Auto) Lymph % (Auto) [place] % (Auto) Eos % (Auto) Baso % (Auto) Neut # (Auto) Lymph # (Auto) [place] # (Auto) Eos # (Auto) Baso # (Auto) Immature Gran # (Auto) VBG pH VBG pCO2 VBG pO2 VBG HCO3 VBG O2 Saturation VBG Base Excess Barometric Pressure Sodium Potassium Chloride Carbon Dioxide Anion Gap BUN Creatinine Est Cr Clr Drug Dosing Est GFR ( Amer) Est GFR (Non-Af Amer) BUN/Creatinine Ratio Glucose POC Glucose 222 H Calcium Phosphorus Magnesium Total Bilirubin AST ALT Alkaline Phosphatase Total Protein Albumin Globulin Albumin/Globulin Ratio PG Care Time/CCT Total # of Minutes Spent Total Time Spent with Patient: Total time spent is greater than 50% in coordination of care (as documented) at patient's floor/unit and/or counseling patient: Coding Level of Care Code 30038 Subseq Hosp Care Lvl 3 Diagnoses Pneumonia due to COVID-19 virus U07.1; J12.82 Acute on chronic respiratory failure with hypoxia and hypercapnia J96.21; J96.22 Acute on chronic diastolic (congestive) heart failure I50.33 Atrial fibrillation, permanent I48.21 CAD (coronary artery disease) I25.10 Coronary Disease-Associated Artery/Lesion type: [place] artery [place] vs. transplanted heart: [place] heart Associated angina: without angina COPD (chronic obstructive pulmonary disease) J44.1 COPD type: COPD with acute exacerbation HTN (hypertension), benign I10 Impaired fasting glucose R73.01 Morbid obesity E66.01 SHIRA (obstructive sleep apnea) G47.33 DVT prophylaxis Z29.9 Hypokalemia E87.6 (1) CAD (coronary artery disease) Coronary Disease-Associated Artery/Lesion type: [place] artery [place] vs. transplanted heart: [place] heart Associated angina: without angina Qualified Code(s): I25.10 - Atherosclerotic heart disease of [place] coronary artery without angina pectoris (2) COPD (chronic obstructive pulmonary disease) COPD type: COPD with acute exacerbation Qualified Code(s): J44.1 - Chronic obstructive pulmonary disease with (acute) exacerbation
[2021-03-24] MEDS ORDERED: GLUCOSE 10 TABS/TUBE PO PRN (19:15)
[2021-03-24] MEDS ORDERED: CARBOHYDRATES FOR HYPOGLYCEMIA PO PRN (19:15)
[2021-03-24] MEDS ORDERED: GLUCOSE 40% GEL 15 GM TUBE PO PRN (19:15)
[2021-03-24] MEDS ORDERED: GLUCAGON FOR INJ 1 MG VIAL IM PRN (19:15)
[2021-03-24] MEDS ORDERED: DEXTROSE 50% 50 ML SYRINGE IV PRN (19:15)
[2021-03-24] MEDS: ATORVASTATIN 40 MG TAB PO SCH (21:01)
[2021-03-24] MEDS: INSULIN ASPART PER UNIT SC SCH (21:42)
[2021-03-24] MEDS ORDERED: STOP CLINOLIPID ONE (22:00)
[2021-03-25] MEDS: ALBUT/IPRATROP 3MG/0.5MG NEB 3 ML VIAL INH SCH ×2 (07:59→20:17)
[2021-03-25] MEDS: INSULIN ASPART PER UNIT SC SCH ×4 (08:35→21:01)
[2021-03-25] MEDS: METOPROLOL SUCC 50MG EXT REL TAB PO SCH ×2 (08:36→20:48)
[2021-03-25] MEDS: BUMETANIDE 2 MG in SYRINGE 0 ML IV SCH (08:36)
[2021-03-25] MEDS: dexAMETHasone 10 MG in SYRINGE 0 ML IV SCH (08:36)
[2021-03-25] MEDS: TRIAMCINOLONE ACET NASAL SPRAY 10.8ML BTL NAE SCH (08:37)
[2021-03-25] MEDS: UMECLIDINIUM/VILANTEROL 62.5/25MCG 7 PUFFS/INHALER INH SCH (08:37)
[2021-03-25] MEDS: APIXABAN 5 MG TABLET PO SCH ×2 (08:37→20:48)
[2021-03-25] MEDS: FLUTICASONE FUROATE 100MCG 14 PUFFS/INHALER INH SCH (08:38)
[2021-03-25] MEDS: FERROUS SULFATE 325 MG TAB PO SCH (08:39)
[2021-03-25] MEDS: PANTOprazole 40 MG TAB PO SCH (08:39)
[2021-03-25] MEDS: CALCIUM 600MG + VIT D 400 IU TAB PO SCH ×2 (08:40→20:49)
[2021-03-25] MEDS: CYANOCOBALAMIN 500 MCG TABLET (VITAMIN B-12) PO SCH (08:40)
[2021-03-25] MEDS: POTASSIUM CHLORIDE CRTAB 20 MEQ TABCR PO SCH ×3 (08:40→20:50)
[2021-03-25] MEDS: OMEGA-3 (PURIFIED FISH OIL) 1 GM CAP PO SCH (08:41)
--- NOTE | 2021-03-25 09:13 | XRay Report ---
XR chest 1V portable CLINICAL HISTORY: COVID pneumonia, interval change TECHNIQUE: Single frontal radiograph of the chest was obtained. Comparison: Comparison is made to chest one view 03/22/2021 FINDINGS: Exam is limited by underpenetration. Lines and tubes are stable. Cardiomegaly is noted. Interval wors ening of pulmonary edema which is now moderate. Stable to minimally increased lower lobe predominant airspace opacities. No evidence of pleural effusion or pneumothorax. IMPRESSION: 1. Moderate pulmonary edema. This represents an increase from the prior exam. 2. Stable to minimally increased lower lobe predominant airspace opacities which may represent atele ctasis, pneumonia or aspiration. 3. Stable cardiomegaly. ACT 112: Negative or not required by law. Electronically signed by: Jared Taveras M.D. 03/25/2021 9:12 AM
[2021-03-25 09:19] LABS: BUN Creatinine Ratio 49.2 (10-20); C Reactive Protein 4.27 mg/dl (0-0.29); Calcium 8.5 mg/dl (8.5-10.1); Creatinine Clr Calc Pharmacy 107.2 ml/min; Est GFR (African American) 103.8 ml/min; Est GFR (Non-African American) 89.6 ml/min; Magnesium 2.3 mg/dl (1.8-2.4); Potassium 3.7 mmol/L (3.5-5.1)
[2021-03-25 09:23] LABS: Phosphorus 2.4 mg/dl (2.5-4.9)
[2021-03-25] MEDS ORDERED: BUMETANIDE 2 MG in SYRINGE 0 ML IV ONE (10:00)
[2021-03-25] MEDS ORDERED: [UNRECOGNIZED DRUG - OTHER] IV SCH (16:00)
[2021-03-25] MEDS ORDERED: AMINO ACID 8% IV SCH (16:00)
[2021-03-25] MEDS ORDERED: CENTRAL TPN IV SCH (16:00)
[2021-03-25] MEDS ORDERED: CLINOLIPID 20% IV FAT EMULSION 250 ML IV SCH (16:00)
[2021-03-25] MEDS: BUMETANIDE 4 MG in SYRINGE 0 ML IV SCH (16:59)
[2021-03-25] MEDS: AMINO ACID 8% IV SCH (17:00)
[2021-03-25] MEDS: [UNRECOGNIZED DRUG - OTHER] IV SCH (17:00)
[2021-03-25] MEDS: CENTRAL TPN IV SCH (17:00)
[2021-03-25] MEDS: ACETAMINOPHEN 325 MG TAB PO PRN (17:56)
--- NOTE | 2021-03-25 19:54 | Hospitalist Progress Note ---
Date of Service March 25, 2021 Assessment & Plan (1) Pneumonia due to COVID-19 virus: Plan: severe, with resulting #2 below. Has had severe FiO2 requirements since admission - FiO2 near 100% for most of the last 10+ days, and high CPAP or HFNC requirements. Last few days unable to transition from CPAP to high-flow consistently - mainly using CPAP. day #12 dexamethasone -- increased to 10mg on 03/24/21 due to refractory symptoms and high O2 requirements. Suspect he has an element of ARDS from his COVID. completed 5-day course of Remdesivir. completed 7-day course of IV abx in the event of bacterial superinfection. cxr today with extensive infiltrates - likely combo of COVID-19 pneumonia + pulmonary edema. patient encouraged to perform consistent pulmonary toilet as tolerated. unfortunately he cannot sit up, get to chair, or lay on side to promote better toilet. (2) Acute on chronic respiratory failure with hypoxia and hypercapnia: Plan: acute component - #1, #3. chronic - COPD. usually on 4 L NC O2 at home. see above and below. (3) Acute on chronic diastolic (congestive) heart failure: Plan: cont IV bumex diuresis. has lost about 10kg of weight. dry weight is uncertain - perhaps we are still 5+ kg above dry weight though?? he takes bumex 4mg BID at home - only on 2mg BID right now -- increase to 4mg BI D IV; shoot for net neg 1-2 L daily. reassess in am. (4) Atrial fibrillation, permanent: Plan: rates acceptable cont metoprolol cont eliquis BID cont tele (5) CAD (coronary artery disease): Plan: no ischemic sx's at this time cont statin, BB (6) COPD (chronic obstructive pulmonary disease): Plan: cont bronchodilators, steroids, home inhalers see above (7) HTN (hypertension), benign: Plan: controlled (8) Impaired fasting glucose: Plan: last HbA1C < 6% [id number], because of steroids & TPN, glucoses are running high add lantus cont novolog suspect he will need additional adjustments (9) Morbid obesity: Plan: BMI 45 (10) SHIRA (obstructive sleep apnea): Plan: typically on CPAP at home (11) DVT prophylaxis: Plan: eliquis 5mg BID (12) Hypokalemia: Plan: replaced and resolved repeat BMP am Plan: due to inability to take enough nutrition since admission TPN was started a few days ago by Dr Ariza via PICC line once on HFNC consistently and taking PO consistently will stop TPN as the TPN is about 1500cc of fluids daily extensively updated by phone this evening and yesterday prognosis guarded remains full code Admission and Anticipated Discharge Date Admission Date: March 14, 2021 Subjective yesterday was able to be maintained on HFNC for several hours then was placed back on CPAP at HS today we have not had much luck getting him back to high-flow but respiratory to keep trying patient again irritable about the constant CPAP usage - main issue is not being able to eat/drink freely he was on CPAP during my rounds - VERY hard to communicate with him because of the mask and he is severely hearing impaired he denied any complaints other than wanting to drink fluids he did confirm he spoke several times with his today tele overnight with [email or web address] [email or web address] Review of Systems Review of Systems: gen - weak, fatigue; he cannot sit up in bed well; states he cannot lay on side cv - no cp pulm - no cough; amazingly denies any dyspnea at rest GI - no pain or nausea Physical Exam Physical Exam: gen - morbidly obese, NAD, irritable; hearing impaired mouth - MM without lesions neck - unable to assess for JVD due to neck size heart - irregular, s1 s2, no obvious murmur lungs - decreased BS b/l; wheezes right lung unchanged; no wheezes left lung; bibasilar rales unchanged; no increased work of breathing abd - soft NT ND BS+ ext - no edema, pulses 2+ b/l skin - venous stasis changes b/l shins vascular - left arm PICC intact, clean psych - oriented x 3, very irritable Results & Data Results & Data ([facility]) Vital Signs (Past 12 Hours) Vital Signs Temp Pulse Pulse Resp BP BP Pulse Ox 03/25/21 18:03 85 03/25/21 17:11 95 H 24 92 03/25/21 15:28 92 H 34 H 97 03/25/21 15:18 36.7 C 82 20 120/80 95 03/25/21 11:18 36.2 C L 87 22 121/69 91 03/25/21 10:42 100 H 28 H 91 03/25/21 09:05 83 26 H 89 L 03/25/21 08:40 76 03/25/21 08:05 104 H 30 H 90 03/25/21 08:00 89 31 H 95 Laboratory Results Laboratory Results - last 24 hr 03/24/21 03/25/21 03/25/21 20:13 07:52 08:20 Sodium 140 Potassium 3.7 Chloride 101 Carbon Dioxide 36 H Anion Gap 3.0 BUN 38 H Creatinine 0.78 Est Cr Clr Drug Dosing 107.2 Est GFR ( Amer) 103.8 Est GFR (Non-Af Amer) 89.6 BUN/Creatinine Ratio 49.2 H Glucose 158 H POC Glucose 172 H 162 H Calcium 8.5 Phosphorus 2.4 L Magnesium 2.3 C-Reactive Protein 4.27 H 03/25/21 03/25/21 11:54 16:26 Sodium Potassium Chloride Carbon Dioxide Anion Gap BUN Creatinine Est Cr Clr Drug Dosing Est GFR ( Amer) Est GFR (Non-Af Amer) BUN/Creatinine Ratio Glucose POC Glucose 207 H 229 H Calcium Phosphorus Magnesium C-Reactive Protein PG Care Time/CCT Total # of Minutes Spent Total Time Spent with Patient: Total time spent is greater than 50% in coordination of care (as documented) at patient's floor/unit and/or counseling patient: Coding Level of Care Code 97234 Subseq Hosp Care Lvl 3 Diagnoses Pneumonia due to COVID-19 virus U07.1; J12.82 Acute on chronic respiratory failure with hypoxia and hypercapnia J96.21; J96.22 Acute on chronic diastolic (congestive) heart failure I50.33 Atrial fibrillation, permanent I48.21 CAD (coronary artery disease) I25.10 Associated angina: without angina Coronary Disease-Associated Artery/Lesion type: [place] artery [place] vs. transplanted heart: [place] heart COPD (chronic obstructive pulmonary disease) J44.1 COPD type: COPD with acute exacerbation HTN (hypertension), benign I10 Impaired fasting glucose R73.01 Morbid obesity E66.01 SHIRA (obstructive sleep apnea) G47.33 DVT prophylaxis Z29.9 Hypokalemia E87.6 (1) CAD (coronary artery disease) Associated angina: without angina Coronary Disease-Associated Artery/Lesion type: [place] artery [place] vs. transplanted heart: [place] heart Qualified Code(s): I25.10 - Atherosclerotic heart disease of [place] coronary artery without angina pectoris (2) COPD (chronic obstructive pulmonary disease) COPD type: COPD with acute exacerbation Qualified Code(s): J44.1 - Chronic obstructive pulmonary disease with (acute) exacerbation
[2021-03-25] MEDS: ATORVASTATIN 40 MG TAB PO SCH (20:49)
[2021-03-25] MEDS ORDERED: INSULIN GLARGINE SOLOSTAR 100 UNITS/ML 3 ML PEN SC SCH (21:00)
[2021-03-25] MEDS ORDERED: STOP CLINOLIPID ONE (22:00)
[2021-03-26] MEDS: ALBUT/IPRATROP 3MG/0.5MG NEB 3 ML VIAL INH SCH ×2 (08:19→19:28)
[2021-03-26] MEDS: dexAMETHasone 10 MG in SYRINGE 0 ML IV SCH (08:43)
[2021-03-26] MEDS: BUMETANIDE 4 MG in SYRINGE 0 ML IV SCH ×2 (08:44→17:20)
[2021-03-26] MEDS: UMECLIDINIUM/VILANTEROL 62.5/25MCG 7 PUFFS/INHALER INH SCH (08:44)
[2021-03-26] MEDS: FLUTICASONE FUROATE 100MCG 14 PUFFS/INHALER INH SCH (08:44)
[2021-03-26] MEDS: POTASSIUM CHLORIDE CRTAB 20 MEQ TABCR PO SCH ×2 (08:45→21:15)
[2021-03-26] MEDS: APIXABAN 5 MG TABLET PO SCH ×2 (08:45→21:15)
[2021-03-26] MEDS: OMEGA-3 (PURIFIED FISH OIL) 1 GM CAP PO SCH (08:46)
[2021-03-26] MEDS: METOPROLOL SUCC 50MG EXT REL TAB PO SCH ×2 (08:46→21:14)
[2021-03-26] MEDS: PANTOprazole 40 MG TAB PO SCH (08:46)
[2021-03-26] MEDS: CYANOCOBALAMIN 500 MCG TABLET (VITAMIN B-12) PO SCH (08:46)
[2021-03-26] MEDS: FERROUS SULFATE 325 MG TAB PO SCH (08:46)
[2021-03-26] MEDS: CALCIUM 600MG + VIT D 400 IU TAB PO SCH ×2 (08:47→21:17)
[2021-03-26] MEDS: TRIAMCINOLONE ACET NASAL SPRAY 10.8ML BTL NAE SCH (08:47)
[2021-03-26] MEDS: INSULIN ASPART PER UNIT SC SCH ×4 (08:52→21:18)
[2021-03-26] MEDS ORDERED: INSULIN GLARGINE SOLOSTAR 100 UNITS/ML 3 ML PEN SC SCH (09:00)
[2021-03-26 10:07] LABS: BUN Creatinine Ratio 54.4 (10-20); Calcium 8.5 mg/dl (8.5-10.1); Creatinine Clr Calc Pharmacy 100.3 ml/min; Est GFR (African American) 101.2 ml/min; Est GFR (Non-African American) 87.3 ml/min; Magnesium 2.2 mg/dl (1.8-2.4); Phosphorus 2.3 mg/dl (2.5-4.9); Potassium 4.5 mmol/L (3.5-5.1)
[2021-03-26] MEDS: ACETAMINOPHEN 325 MG TAB PO PRN ×2 (11:17→19:51)
[2021-03-26] MEDS: ALBUT/IPRATROP 3MG/0.5MG NEB 3 ML VIAL NEB PRN (11:30)
[2021-03-26] MEDS ORDERED: CENTRAL TPN IV SCH ×2 (16:00)
[2021-03-26] MEDS ORDERED: AMINO ACID 8% IV SCH ×2 (16:00)
[2021-03-26] MEDS ORDERED: [UNRECOGNIZED DRUG - OTHER] IV SCH ×2 (16:00)
[2021-03-26] MEDS ORDERED: CLINOLIPID 20% IV FAT EMULSION 250 ML IV SCH (16:00)
--- NOTE | 2021-03-26 18:42 | Hospitalist Progress Note ---
Date of Service March 26, 2021 Assessment & Plan (1) Pneumonia due to COVID-19 virus: Plan: no significant change overnight. severe, with resulting #2 below. Has had severe FiO2 requirements since admission - FiO2 near 100% for most of the last 10+ days, and high CPAP or HFNC requirements. Last few days had been unable to transition from CPAP to high-flow consistently - but last 24 hours have been better in this regard. day #13 dexamethasone -- increased to 10mg on 03/24/21 due to refractory symptoms and high O2 requirements. Suspect he has an element of ARDS from his COVID. completed 5-day course of Remdesivir. completed 7-day course of IV abx in the event of bacterial superinfection. procal negative today. cxr yesterday with extensive infiltrates - likely combo of COVID-19 pneumonia + pulmonary edema. patient again encouraged to perform consistent pulmonary toilet as tolerated. unfortunately he cannot sit up, get to chair, or lay on side to promote better toilet. (2) Acute on chronic respiratory failure with hypoxia and hypercapnia: Plan: acute component - #1, #3. chronic - COPD. usually on 4 L NC O2 at home. see above and below. (3) Acute on chronic diastolic (congestive) heart failure: Plan: cont IV bumex diuresis. has lost 10kg+ of weight. dry weight is uncertain. cont bumex 4mg IV BID. getting off TPN will help as that volume is 1500cc/day. BMP am. (4) Atrial fibrillation, permanent: Plan: rates acceptable cont metoprolol cont eliquis BID cont tele (5) CAD (coronary artery disease): Plan: no ischemic sx's at this time cont statin, BB (6) COPD (chronic obstructive pulmonary disease): Plan: cont bronchodilators, steroids, home inhalers see above (7) HTN (hypertension), benign: Plan: controlled (8) Impaired fasting glucose: Plan: last HbA1C < 6% [id number], because of steroids & TPN, glucoses are running high increase lantus to 15 units BID cont novolog - tighten again (9) Morbid obesity: Plan: BMI 45 (10) SHIRA (obstructive sleep apnea): Plan: typically on CPAP at home (11) DVT prophylaxis: Plan: eliquis 5mg BID (12) Hypokalemia: Plan: replaced and resolved keep on K supplementation due to high-dose bumex usage repeat BMP am Plan: due to inability to take enough nutrition since admission TPN was started a few days ago by Dr Ariza via PICC line he is finally able to take oral nutrition I spoke with pharmacy - will use 1/2 strength TPN tonight/tomorrow am with hopes that tonight's bag is last TPN bag extensively updated by phone yesterday pm prognosis guarded remains full code Admission and Anticipated Discharge Date Admission Date: March 14, 2021 Subjective tele with afib, rates 90s/100s pt on high-flow NC during my visit he was on CPAP at HS but able to be transitioned to high-flow this am staff report he is eating at each meal drinking fluids it was difficult to communicate w/ him because of hearing impairment - used dry erase board to communicate he asked how much longer he would be here Review of Systems Review of Systems: gen - weakness, fatigue; no fevers cv - no chest pain pulm - denies significant cough or dyspnea at rest GI - no abd pain, nausea, or emesis Physical Exam Physical Exam: gen - morbidly obese, NAD, severely hearing impaired mouth - MM dry, no thrush neck - unable to assess for JVD due to neck size heart - irregular, s1 s2, no obvious murmur; HR about 100 lungs - decreased BS b/l; wheezes right lung improved; no wheezes left lung; bibasilar rales remain; no increased work of breathing abd - soft NT ND BS+ ext - no edema, pulses 2+ b/l skin - venous stasis changes b/l shins vascular - left arm PICC intact, clean psych - oriented x 3, very irritable Results & Data Results & Data ([facility]) Vital Signs (Past 12 Hours) Vital Signs Temp Pulse Pulse Resp BP BP Pulse Ox 03/26/21 16:00 95 H 03/26/21 15:23 100 H 20 93 03/26/21 15:16 36.3 C L 99 H 20 105/67 93 03/26/21 11:55 36.9 C 96 H 20 102/59 L 88 L 03/26/21 11:30 90 22 90 03/26/21 09:45 73 03/26/21 08:20 92 03/26/21 08:18 96 H 24 92 03/26/21 07:37 36.6 C 54 L 22 109/65 96 Laboratory Results Laboratory Results - last 24 hr 03/25/21 03/26/21 03/26/21 20:25 07:44 09:18 Sodium 141 Potassium 4.5 D Chloride 104 Carbon Dioxide 36 H Anion Gap 2.0 L BUN 45 H Creatinine 0.83 Est Cr Clr Drug Dosing 100.3 Est GFR ( Amer) 101.2 Est GFR (Non-Af Amer) 87.3 BUN/Creatinine Ratio 54.4 H Glucose 194 H POC Glucose 270 H 165 H Calcium 8.5 Phosphorus 2.3 L Magnesium 2.2 Procalcitonin 03/26/21 03/26/21 03/26/21 09:18 11:47 16:18 Sodium Potassium Chloride Carbon Dioxide Anion Gap BUN Creatinine Est Cr Clr Drug Dosing Est GFR ( Amer) Est GFR (Non-Af Amer) BUN/Creatinine Ratio Glucose POC Glucose 233 H 281 H Calcium Phosphorus Magnesium Procalcitonin < 0.05 PG Care Time/CCT Total # of Minutes Spent Total Time Spent with Patient: Total time spent is greater than 50% in coordination of care (as documented) at patient's floor/unit and/or counseling patient: Coding Level of Care Code 18565 Subseq Hosp Care Lvl 3 Diagnoses Pneumonia due to COVID-19 virus U07.1; J12.82 Acute on chronic respiratory failure with hypoxia and hypercapnia J96.21; J96.22 Acute on chronic diastolic (congestive) heart failure I50.33 Atrial fibrillation, permanent I48.21 CAD (coronary artery disease) I25.10 Associated angina: without angina Coronary Disease-Associated Artery/Lesion type: [place] artery [place] vs. transplanted heart: [place] heart COPD (chronic obstructive pulmonary disease) J44.1 COPD type: COPD with acute exacerbation HTN (hypertension), benign I10 Impaired fasting glucose R73.01 Morbid obesity E66.01 SHIRA (obstructive sleep apnea) G47.33 DVT prophylaxis Z29.9 Hypokalemia E87.6 (1) CAD (coronary artery disease) Associated angina: without angina Coronary Disease-Associated Artery/Lesion type: [place] artery [place] vs. transplanted heart: [place] heart Qualified Code(s): I25.10 - Atherosclerotic heart disease of [place] coronary artery without angina pectoris (2) COPD (chronic obstructive pulmonary disease) COPD type: COPD with acute exacerbation Qualified Code(s): J44.1 - Chronic obstructive pulmonary disease with (acute) exacerbation
[2021-03-26] MEDS: ATORVASTATIN 40 MG TAB PO SCH (21:18)
[2021-03-26] MEDS: INSULIN GLARGINE SOLOSTAR 100 UNITS/ML 3 ML PEN SC SCH (21:19)
[2021-03-26] MEDS ORDERED: STOP CLINOLIPID ONE (22:00)
[2021-03-26] MEDS: ESZOPICLONE 1 MG TAB PO PRN (22:02)
[2021-03-27 06:55] LABS: Hematocrit (blood only) 39.6 % (42-52); Hemoglobin 12.5 g/dL (14.0-18.0); Mean Corpuscular Hemoglobin 31.7 pg (25-34); Mean Corpuscular Hgb Conc 31.6 g/dL (32-36); Mean Corpuscular Volume 100.5 fL (80-100); Mean Platelet Volume 11.8 fL (7.4-10.4); Platelet Count 251 K/uL (130-400); RDW Coefficient of Variation 16.3 % (11.5-14.5); Red Blood Count 3.94 M/uL (4.7-6.1); White Blood Count 15.07 K/uL (4.8-10.8)
[2021-03-27] MEDS: ALBUT/IPRATROP 3MG/0.5MG NEB 3 ML VIAL INH SCH ×2 (07:03→19:44)
[2021-03-27 07:21] LABS: BUN Creatinine Ratio 58.4 (10-20); Creatinine Clr Calc Pharmacy 100.7 ml/min; Est GFR (African American) 101.2 ml/min; Est GFR (Non-African American) 87.3 ml/min; Magnesium 2.4 mg/dl (1.8-2.4); Potassium 4.5 mmol/L (3.5-5.1)
[2021-03-27 07:25] LABS: Phosphorus 2.9 mg/dl (2.5-4.9)
[2021-03-27] MEDS: dexAMETHasone 10 MG in SYRINGE 0 ML IV SCH (09:26)
[2021-03-27] MEDS: METOPROLOL SUCC 50MG EXT REL TAB PO SCH ×2 (09:26→20:39)
[2021-03-27] MEDS: CALCIUM 600MG + VIT D 400 IU TAB PO SCH ×2 (09:27→20:39)
[2021-03-27] MEDS: APIXABAN 5 MG TABLET PO SCH ×2 (09:27→20:40)
[2021-03-27] MEDS: FERROUS SULFATE 325 MG TAB PO SCH (09:27)
[2021-03-27] MEDS: OMEGA-3 (PURIFIED FISH OIL) 1 GM CAP PO SCH (09:28)
[2021-03-27] MEDS: PANTOprazole 40 MG TAB PO SCH (09:28)
[2021-03-27] MEDS: POTASSIUM CHLORIDE CRTAB 20 MEQ TABCR PO SCH ×2 (09:28→20:41)
[2021-03-27] MEDS: UMECLIDINIUM/VILANTEROL 62.5/25MCG 7 PUFFS/INHALER INH SCH (09:29)
[2021-03-27] MEDS: CYANOCOBALAMIN 500 MCG TABLET (VITAMIN B-12) PO SCH (09:29)
[2021-03-27] MEDS: TRIAMCINOLONE ACET NASAL SPRAY 10.8ML BTL NAE SCH (09:30)
[2021-03-27] MEDS: FLUTICASONE FUROATE 100MCG 14 PUFFS/INHALER INH SCH (09:36)
[2021-03-27] MEDS: BUMETANIDE 4 MG in SYRINGE 0 ML IV SCH ×2 (09:58→17:13)
[2021-03-27] MEDS: INSULIN ASPART PER UNIT SC SCH ×4 (10:13→20:44)
[2021-03-27] MEDS: INSULIN GLARGINE SOLOSTAR 100 UNITS/ML 3 ML PEN SC SCH ×2 (10:22→20:45)
[2021-03-27] MEDS ORDERED: TPN - STOP ORDER ONE (15:59)
--- NOTE | 2021-03-27 17:59 | Hospitalist Progress Note ---
Date of Service March 27, 2021 Assessment & Plan (1) Pneumonia due to COVID-19 virus: Plan: again no significant change overnight. no progress. severe, with resulting #2 below. Has had severe FiO2 requirements since admission - FiO2 100% for most of the last 10+ days, and high CPAP or HFNC requirements. Last few days had been unable to transition from CPAP to high-flow NC so that he could get a break from the CPAP. day #14 dexamethasone -- increased to 10mg on 03/24/21 due to refractory symptoms and high O2 requirements. Suspect he has an element of ARDS from his COVID. completed 5-day course of Remdesivir. completed 7-day course of IV abx in the event of bacterial superinfection. most recent procal negative. cxr 2 days ago with extensive infiltrates - likely combo of COVID-19 pneumonia + pulmonary edema. patient again encouraged to perform consistent pulmonary toilet as tolerated but unfortunately he cannot sit up without assistance, get to chair, or lay on side to promote better toilet. (2) Acute on chronic respiratory failure with hypoxia and hypercapnia: Plan: acute component - #1, #3. chronic - COPD. usually on 4 L NC O2 at home. see above and below. (3) Acute on chronic diastolic (congestive) heart failure: Plan: cont IV bumex diuresis. could consider PO metazolone before AM bumex to enhance diuresis. had lost 10kg+ of weight but then his diuresis stalled despite 4mg IV BID of bumex. dry weight is uncertain. some records suggest 120kg. cont bumex 4mg IV BID. getting off TPN will help as that volume is 1500cc/day. TPN done today. BMP am. (4) Atrial fibrillation, permanent: Plan: rates acceptable cont metoprolol cont eliquis BID cont tele (5) CAD (coronary artery disease): Plan: no ischemic sx's at this time cont statin, BB (6) COPD (chronic obstructive pulmonary disease): Plan: cont bronchodilators, steroids, home inhalers, etc see above (7) HTN (hypertension), benign: Plan: controlled (8) Impaired fasting glucose: Plan: last HbA1C < 6% [id number], because of steroids & TPN, glucoses are running high increased lantus to 15 units BID novolog tightened again suspect BSGs will improve with stopping TPN (9) Morbid obesity: Plan: BMI 45 (10) SHIRA (obstructive sleep apnea): Plan: typically on CPAP at home (11) DVT prophylaxis: Plan: eliquis 5mg BID (12) Hypokalemia: Plan: replaced and resolved keep on K supplementation due to high-dose bumex usage repeat BMP am Plan: due to inability to take enough nutrition since admission TPN was started a few days ago by Dr Ariza via PICC line he is not making any progress with his pulmonary issues I believe the risks of ongoing TPN (liver injury, bacteremia, volume overload, etc) outweigh its benefits - will stop TPN very lengthy discussions today with patient (using dry [place] board -- communication is VERY difficult), his by phone, and with his primary manager latin - Finn MORRIS prognosis is very, very poor I discussed all options with his today -- aggressive care vs middle ground approach vs palliative care/comfort care I suggested that palliative/comfort care is likely best she asked if he could "get home" and I stated no Finn Garrison will reach out to patient as patient had asked for him unfortunately our palliative care consultative service is not available may need to have come in to have additional talks she is going to solicit the help of Mr Justin's 2 sons as well need to address code status with patient total time today 80 minutes - complex care coordination Admission and Anticipated Discharge Date Admission Date: March 14, 2021 Subjective like previous - tele stable, a.fib, rates mostly <110 I used the dry erase board in his room to communicate with him due to the loud sound of the CPAP and his severe hearing impairment I told him that I was very concerned about his lack of progress, that we can't get him off CPAP (and he has been using it for 14 days almost continuously), concerned about his nutrition, explained that the TPN is contributing to his fluid retention and needs to be stopped, etc He again asked how long he would be here and I told him weeks He continues to be irritable mainly because he can't eat/drink Patient did ask about speaking with Finn Garrison who follows him in the pulmonary clinic Attempts to remove the CPAP this am and place on HFNC were unsuccessful just like yesterday we discussed trying to sit up in bed - he lays flat in the bed constantly (he can't lay on his side because of chronic lumbar back pain) - he is willing to try and sit up I had a lengthy discussion with his by phone this evening Discussed lack of progress, CPAP dependency, inability to provide nutrition and the fact that TPN is contributing to volume overload, etc she reports that Mr Anderson has 2 sons from a prior marriage she keeps them informed regularly she states that Rodrigo has previously told her that he would not want aggressive measures or intubation I told her that Rodrigo has hinted that he would want to continue all measures pt's said towards the end of our conversation that she doesn't want to see Rodrigo suffer I did reach out to Finn Garrison, pulmonary PA, and I discussed Mr Anderson's current status Mr Garrison is going to try and call or visit Mr Anderson Review of Systems Review of Systems: gen - fatigue/weak; no fevers, no chills; wants to eat/drink CV - no orthopnea/no chest pain pulm - cough, wheezing remain; no dyspnea at rest; he states he "doesn't mind the CPAP" GI - no abd pain, nausea or emesis Physical Exam Physical Exam: gen - morbidly obese, NAD, severely hearing impaired mouth - MM dry, no thrush neck - unable to assess for JVD due to neck size heart - irregular, s1 s2, no obvious murmur lungs - decreased BS b/l; bibasilar rales remain; no increased work of breathing; scattered wheezes b/l abd - soft NT ND BS+ ext - no edema, pulses 2+ b/l skin - venous stasis changes b/l shins vascular - left arm PICC intact, clean psych - oriented x 3 Results & Data Results & Data ([facility]) Vital Signs (Past 12 Hours) Vital Signs Temp Pulse Pulse Resp BP Pulse Ox 03/27/21 16:20 36.8 C 86 16 104/65 94 03/27/21 14:23 87 24 97 03/27/21 11:47 36.4 C L 55 L 24 134/82 91 03/27/21 11:10 89 26 H 90 03/27/21 10:05 28 H 89 L 03/27/21 08:02 36.3 C L 92 H 24 107/68 92 03/27/21 07:04 84 31 H 93 03/27/21 07:03 84 31 H 93 03/27/21 06:17 68 Laboratory Results Laboratory Results - last 24 hr 03/27/21 03/27/21 03/27/21 06:26 07:41 11:39 POC Glucose 174 H 225 H Phosphorus 2.9 03/27/21 03/27/21 16:49 20:25 POC Glucose 196 H 143 H Phosphorus BMP wnl PG Care Time/CCT Total # of Minutes Spent Total Time Spent with Patient: Total time spent is greater than 50% in coordination of care (as documented) at patient's floor/unit and/or counseling patient: Prolonged Care Time Prolonged Care Time: Yes 80 Coding Level of Care Code 19668 Subseq Hosp Care Lvl 3 (25 - SIGNIFICANT, SEPARATELY IDENTIFIABLE ) Diagnoses Pneumonia due to COVID-19 virus U07.1; J12.82 Acute on chronic respiratory failure with hypoxia and hypercapnia J96.21; J96.22 Acute on chronic diastolic (congestive) heart failure I50.33 Atrial fibrillation, permanent I48.21 CAD (coronary artery disease) I25.10 Associated angina: without angina Coronary Disease-Associated Artery/Lesion type: [place] artery [place] vs. transplanted heart: [place] heart COPD (chronic obstructive pulmonary disease) J44.1 COPD type: COPD with acute exacerbation HTN (hypertension), benign I10 Impaired fasting glucose R73.01 Morbid obesity E66.01 SHIRA (obstructive sleep apnea) G47.33 DVT prophylaxis Z29.9 Hypokalemia E87.6 Additional Codes Prolonged Care Time - Prolonged Care Time: Yes ([id number]) Time Spent (min) 80 (1) CAD (coronary artery disease) Associated angina: without angina Coronary Disease-Associated Artery/Lesion type: [place] artery [place] vs. transplanted heart: [place] heart Qualified Code(s): I25.10 - Atherosclerotic heart disease of [place] coronary artery without angina pectoris (2) COPD (chronic obstructive pulmonary disease) COPD type: COPD with acute exacerbation Qualified Code(s): J44.1 - Chronic obstructive pulmonary disease with (acute) exacerbation
[2021-03-27] MEDS: ACETAMINOPHEN 325 MG TAB PO PRN (19:27)
[2021-03-27] MEDS: ATORVASTATIN 40 MG TAB PO SCH (20:40)
[2021-03-27] MEDS: ESZOPICLONE 1 MG TAB PO PRN (20:40)
[2021-03-28] MEDS: ALBUT/IPRATROP 3MG/0.5MG NEB 3 ML VIAL INH SCH ×2 (06:27→19:22)
[2021-03-28] MEDS: UMECLIDINIUM/VILANTEROL 62.5/25MCG 7 PUFFS/INHALER INH SCH (08:28)
[2021-03-28] MEDS: BUMETANIDE 4 MG in SYRINGE 0 ML IV SCH ×2 (08:28→17:35)
[2021-03-28] MEDS: dexAMETHasone 10 MG in SYRINGE 0 ML IV SCH (08:28)
[2021-03-28] MEDS: FLUTICASONE FUROATE 100MCG 14 PUFFS/INHALER INH SCH (08:29)
[2021-03-28] MEDS: APIXABAN 5 MG TABLET PO SCH ×2 (08:30→21:06)
[2021-03-28] MEDS: POTASSIUM CHLORIDE CRTAB 20 MEQ TABCR PO SCH ×2 (08:30→21:07)
[2021-03-28] MEDS: CYANOCOBALAMIN 500 MCG TABLET (VITAMIN B-12) PO SCH (08:30)
[2021-03-28] MEDS: CALCIUM 600MG + VIT D 400 IU TAB PO SCH ×2 (08:30→21:09)
[2021-03-28] MEDS: METOPROLOL SUCC 50MG EXT REL TAB PO SCH ×2 (08:32→21:08)
[2021-03-28] MEDS: OMEGA-3 (PURIFIED FISH OIL) 1 GM CAP PO SCH (08:32)
[2021-03-28] MEDS: FERROUS SULFATE 325 MG TAB PO SCH (08:33)
[2021-03-28] MEDS: TRIAMCINOLONE ACET NASAL SPRAY 10.8ML BTL NAE SCH (08:34)
[2021-03-28] MEDS: ACETAMINOPHEN 325 MG TAB PO PRN ×3 (08:40→21:06)
[2021-03-28 09:13] LABS: BUN Creatinine Ratio 57.7 (10-20); C Reactive Protein 2.82 mg/dl (0-0.29); Calcium 8.9 mg/dl (8.5-10.1); Creatinine Clr Calc Pharmacy 88.3 ml/min; Est GFR (African American) 92.9 ml/min; Est GFR (Non-African American) 80.1 ml/min; Potassium 4.5 mmol/L (3.5-5.1)
[2021-03-28] MEDS: INSULIN ASPART PER UNIT SC SCH ×4 (10:44→20:54)
[2021-03-28] MEDS: INSULIN GLARGINE SOLOSTAR 100 UNITS/ML 3 ML PEN SC SCH ×2 (10:45→20:57)
[2021-03-28] MEDS: PANTOprazole 40 MG TAB PO SCH (11:06)
--- NOTE | 2021-03-28 12:50 | Hospitalist Progress Note ---
Date of Service March 28, 2021 Assessment & Plan (1) Pneumonia due to COVID-19 virus: Plan: able to stay on high flow 40L 100% today for several hours, able to eat plan for CPAP/BIPAP tonight severe, with resulting #2 below. Has had severe FiO2 requirements since admission - FiO2 100% for most of the last 10+ days, and high CPAP or HFNC requirements day #15 dexamethasone -- increased to 10mg on 03/24/21 due to refractory symptoms and high O2 requirements. Suspect he has an element of ARDS from his COVID. completed 5-day course of Remdesivir. completed 7-day course of IV abx in the event of bacterial superinfection. most recent procal negative. cxr 3 days ago with extensive infiltrates - likely combo of COVID-19 pneumonia + pulmonary edema. continue to discuss goals of care, Finn Garrison will be in tomorrow (2) Acute on chronic respiratory failure with hypoxia and hypercapnia: Plan: acute component - #1, #3. chronic - COPD. usually on 4 L NC O2 at home. able to stay on 40L and 100% today, will need CPAP/BIPAP HS (3) Acute on chronic diastolic (congestive) heart failure: Plan: cont IV bumex diuresis. could consider PO metazolone before AM bumex to enhance diuresis. had lost 10kg+ of weight but then his diuresis stalled despite 4mg IV BID of bumex. dry weight is uncertain. some records suggest 120kg. cont bumex 4mg IV BID. getting off TPN will help as that volume is 1500cc/day. TPN done 03/27 able to eat and drink today (4) Atrial fibrillation, permanent: Plan: rates acceptable cont metoprolol cont eliquis BID cont tele (5) CAD (coronary artery disease): Plan: no ischemic sx's at this time cont statin, BB (6) COPD (chronic obstructive pulmonary disease): Plan: cont bronchodilators, steroids, home inhalers, etc see above (7) HTN (hypertension), benign: Plan: controlled (8) Impaired fasting glucose: Plan: last HbA1C < 6% [id number], because of steroids & TPN, glucoses are running high increased lantus to 15 units BID novolog tightened again sugars better today (9) Morbid obesity: Plan: BMI 45 (10) SHIRA (obstructive sleep apnea): Plan: typically on CPAP at home (11) DVT prophylaxis: Plan: eliquis 5mg BID (12) Hypokalemia: Plan: replaced and resolved keep on K supplementation due to high-dose bumex usage repeat BMP am Plan: see if he can stay of BIPAP again tomorrow discuss goals of care with Finn Garrison Admission and Anticipated Discharge Date Admission Date: March 14, 2021 Subjective met with patient at the bedside, he complains that his low back is hurting him, needs to lay more flat he wants to eat and drink, he took order from kitchen all he wants is fruit cup, chocolate milk, chocolate ice cream we discussed that he is BIPAP dependent, he has respiratory failure, no way to give him nutrition typically if you cannot come off BIPAP for 48 hours then you need intubated to provide adequate nutrition we discussed intubated at this point, that if he were to be intubated it is highly unlikely that he would come off ventilator, that intubating him would not fix his lung issues I asked "would you want intubated" and he said "not if I could avoid it" I told him this is not theoretical, he is at the point that intubation would be required to stay alive and provide nutrition as TPN no longer an option he shook his head when I asked about intubation again Finn Garrison, his PA with pulmonology will meet with him tomorrow patient did okay with high flow today, able to eat and drink more will continue CPAP/BIPAP HS Review of Systems Review of Systems: All systems reviewed & are unremarkable except as noted in Subjective Constitutional: + fatigue and + weakness Respiratory: + cough, + dyspnea and + dyspnea on exertion Cardiovascular: + edema Physical Exam Physical Exam: General: well developed, obese, no acute distress, comfortable Neck: supple, trachea midline, normal thyroid Lungs: clear to auscultation bilaterally, diminished breath sounds, tachypneic, no accessory muscle use, no distress Heart: regular S1 and S2, no murmur, peripheral pulses normal, capillary refill normal, no edema Abdomen: soft, NT, ND, + BS, no hepatomegaly, normal to percussion Extremities: normal in appearance, no cyanosis, no petechiae, strength is 5/5 bilaterally Neuro: awake, cooperative, moves all extremities, no focal motor deficits, CN II-XII intact, sensation in extremities intact, normal speech Skin: warm, dry, no rash, normal turgor Psych: Awake, alert oriented x 3, flat affect Results & Data Results & Data ([facility]) Vital Signs (Past 12 Hours) Vital Signs Temp Pulse Pulse Resp BP Pulse Ox 03/28/21 11:30 36.7 C 104 H 20 112/51 L 94 03/28/21 10:20 88 26 H 97 03/28/21 07:41 36.3 C L 108 H 20 127/80 91 03/28/21 06:29 86 29 H 98 03/28/21 06:27 86 29 H 97 03/28/21 05:04 67 03/28/21 03:11 36.5 C 88 20 132/52 L 94 03/28/21 02:12 90 30 H 92 Laboratory Results Laboratory Results - last 24 hr 03/28/21 03/28/21 03/28/21 07:37 08:19 11:55 Sodium 144 Potassium 4.5 Chloride 104 Carbon Dioxide 37 H Anion Gap 3.0 BUN 54 H Creatinine 0.94 Est Cr Clr Drug Dosing 88.3 Est GFR ( Amer) 92.9 Est GFR (Non-Af Amer) 80.1 BUN/Creatinine Ratio 57.7 H Glucose 110 H POC Glucose 109 H 161 H Calcium 8.9 C-Reactive Protein 2.82 H 03/28/21 03/28/21 16:22 20:09 Sodium Potassium Chloride Carbon Dioxide Anion Gap BUN Creatinine Est Cr Clr Drug Dosing Est GFR ( Amer) Est GFR (Non-Af Amer) BUN/Creatinine Ratio Glucose POC Glucose 180 H 205 H Calcium C-Reactive Protein Medications Administered Current Inpatient Medications Acetaminophen (Acetaminophen 325 Mg Tab) 650 mg PO Q4H PRN PRN Reason: pain/fever Stop: 04/13/21 11:54 Last Admin: 03/28/21 15:34 Dose: 650 mg Documented by: Al Hydrox/Mg Hydrox/Simethicone (Aluminum/Magnesium Susp 30 Ml Udc) 30 ml PO Q6H PRN PRN Reason: Dyspepsia Stop: 04/13/21 11:54 Albuterol (Albuterol Hfa 8 Gm Inhaler) 1 puffs INH Q6H PRN PRN Reason: Shortness Of Breath Or Wheezing Stop: 04/13/21 11:54 Albuterol (Albut/Ipratrop 3mg/0.5mg Neb 3 Ml Vial) 3 ml INH BIDR [facility] Stop: 04/13/21 11:54 Last Admin: 03/28/21 19:22 Dose: 3 ml Documented by: Albuterol (Albut/Ipratrop 3mg/0.5mg Neb 3 Ml Vial) 3 ml NEB Q2H PRN PRN Reason: Shortness of Breath/Wheezing Stop: 04/19/21 02:39 Last Admin: 03/26/21 11:30 Dose: 3 ml Documented by: Apixaban (Apixaban 5 Mg Tablet) 5 mg PO BID [facility] Stop: 04/13/21 12:14 Last Admin: 03/28/21 08:30 Dose: 5 mg Documented by: Atorvastatin Calcium (Atorvastatin 40 Mg Tab) 80 mg PO HS [facility] Stop: 04/13/21 20:59 Last Admin: 03/27/21 20:40 Dose: 80 mg Documented by: Cyanocobalamin (Cyanocobalamin 500 Mcg Tablet (Vitamin B-12)) 1,000 mcg PO QAM [facility] Stop: 04/14/21 08:59 Last Admin: 03/28/21 08:30 Dose: 1,000 mcg Documented by: Dextrose (Dextrose 50% 50 Ml Syringe) 25 - 50 ml IV UD PRN; Protocol PRN Reason: Hypoglycemia Protocol Stop: 04/23/21 19:14 Docusate Sodium (Docusate Sodium 100 Mg Cap) 100 mg PO BID PRN PRN Reason: constipation Stop: 04/13/21 11:54 Last Admin: 03/24/21 16:28 Dose: 100 mg Documented by: Eszopiclone (Eszopiclone 1 Mg Tab) 1 mg PO HSZ PRN PRN Reason: Insomnia Stop: 04/17/21 01:18 Last Admin: 03/27/21 20:40 Dose: 1 mg Documented by: Ferrous Sulfate (Ferrous Sulfate 325 Mg Tab) 325 mg PO QAM [facility] Stop: 04/14/21 08:59 Last Admin: 03/28/21 08:33 Dose: 325 mg Documented by: Fish Oil ([place]-3 (Purified Fish Oil) 1 Gm Cap) 1 gm PO QAM [facility] Stop: 04/14/21 08:59 Last Admin: 03/28/21 08:32 Dose: 1 gm Documented by: Fluticasone Furoate (Fluticasone Furoate 100mcg 14 Puffs/Inhaler) 1 puffs INH QAM [facility] Stop: 04/13/21 11:54 Last Admin: 03/28/21 08:29 Dose: 1 puffs Documented by: Glucagon (Glucagon For Inj 1 Mg Vial) 1 mg IM UD PRN; Protocol PRN Reason: Hypoglycemia Protocol Stop: 04/23/21 19:14 Glucose (Glucose 40% Gel 15 Gm Tube) 15 - 30 gm PO UD PRN; Protocol PRN Reason: Hypoglycemia Protocol Stop: 04/23/21 19:14 Glucose (Glucose 10 Tabs/Tube) 4 - 8 tabs PO UD PRN; Protocol PRN Reason: Hypoglycemia Protocol Stop: 04/23/21 19:14 Heparin Sodium (Beef Lung) (Heparin 10 Unit/Ml 5 Ml Flush) 5 ml FLUSH PRN PRN PRN Reason: Flush Stop: 04/21/21 18:14 Dextrose (D10w) 1,000 mls @ 0 mls/hr IV .Q0M PRN PRN Reason: protocol (see label comments) Stop: 04/22/21 15:59 Dexamethasone 10 mg/ Syringe 2.5 mls @ 1 mls/min IV DAILY [facility] Stop: 04/24/21 08:59 Last Admin: 03/28/21 08:28 Dose: 1 mls/min Documented by: Bumetanide 4 mg/ Syringe 16 mls @ 4 mls/min IV BID@0900,1700 [facility] Stop: 04/24/21 16:59 Last Admin: 03/28/21 17:35 Dose: 4 mls/min Documented by: Insulin Aspart (Insulin Aspart Per Unit) 0 units SC ACHS [facility] Stop: 04/23/21 20:59 Last Admin: 03/28/21 17:21 Dose: 7 units Documented by: Insulin Glargine (Insulin Glargine Solostar 100 Units/Ml 3 Ml Pen) 15 units SC BID [facility] Stop: 04/25/21 20:59 Last Admin: 03/28/21 10:45 Dose: 15 units Documented by: Ipratropium [place] (Ipratropium Hfa Inhaler (Combivent Respimat P&T Subs)) 1 puffs INH BID PRN PRN Reason: Shortness Of Breath Stop: 04/13/21 12:55 Magnesium Hydroxide (Magnesium Hydroxide Susp 30 Ml Udc) 30 ml PO Q6H PRN PRN Reason: Constipation Stop: 04/13/21 11:54 Melatonin (Melatonin 3 Mg Tab) 3 mg PO HS PRN PRN Reason: Sleep Stop: 04/27/21 19:37 Metoprolol Succinate (Metoprolol Succ 50mg Ext Rel Tab) 200 mg PO BID [facility] Stop: 04/13/21 12:14 Last Admin: 03/28/21 08:32 Dose: 200 mg Documented by: Miconazole Nitrate (Miconazole Nitrate Powder 43 Gm) 1 appln EXT PRN PRN PRN Reason: Affected Skin Folds Stop: 04/14/21 10:07 Miscellaneous (Carbohydrates For Hypoglycemia ) 15 - 30 gm PO UD PRN PRN Reason: Hypoglycemia Treatment Stop: 04/23/21 19:14 Multivitamins (Multivitamin Tab) 1 tab PO QDD [facility] Stop: 04/13/21 16:29 Last Admin: 03/23/21 16:37 Dose: 1 tab Documented by: Multivitamins/Minerals (Calcium 600mg + Vit D 400 Iu Tab) 1 tab PO BID [facility] Stop: 04/13/21 20:59 Last Admin: 03/28/21 08:30 Dose: 1 tab Documented by: Ondansetron HCl (Ondansetron Inj 2 Mg/Ml 2 Ml Vial) 4 mg IV Q6H PRN PRN Reason: Nausea Stop: 04/13/21 11:54 Pantoprazole Sodium (Pantoprazole 40 Mg Tab) 40 mg PO DAILY [facility] Stop: 04/13/21 09:29 Last Admin: 03/28/21 11:06 Dose: 40 mg Documented by: Polyethylene Glycol (Polyethylene (Miralax) 17 Gm Pack) 17 gm PO DAILY PRN PRN Reason: Constipation Stop: 04/13/21 11:54 Potassium Chloride (Potassium Chloride 10 Meq Tabcr) 10 meq PO DAILY [facility] Stop: 04/14/21 08:59 Last Admin: 03/24/21 07:43 Dose: 10 meq Documented by: Potassium Chloride (Potassium Chloride Crtab 20 Meq Tabcr) 20 meq PO BID [facility] Stop: 04/25/21 20:59 Last Admin: 03/28/21 08:30 Dose: 20 meq Documented by: Triamcinolone Acetonide (Triamcinolone Acet Nasal [place] 10.8ml Btl) 2 sprays ROLLY DAILY [facility] Stop: 04/14/21 08:59 Last Admin: 03/28/21 08:34 Dose: 2 sprays Documented by: Umeclidinium/Vilanterol (Umeclidinium/Vilanterol 62.5/25mcg 7 Puffs/Inhaler) 1 puffs INH DAILY [facility] Stop: 04/13/21 11:54 Last Admin: 03/28/21 08:28 Dose: 1 puffs Documented by: PG Care Time/CCT Total # of Minutes Spent Total Time Spent with Patient: Total time spent is greater than 50% in coordination of care (as documented) at patient's floor/unit and/or counseling patient: Coding Level of Care Code 19106 Subseq Hosp Care Lvl 3 Diagnoses Pneumonia due to COVID-19 virus U07.1; J12.82 Acute on chronic respiratory failure with hypoxia and hypercapnia J96.21; J96.22 Acute on chronic diastolic (congestive) heart failure I50.33 Atrial fibrillation, permanent I48.21 CAD (coronary artery disease) I25.10 Associated angina: without angina Coronary Disease-Associated Artery/Lesion type: [place] artery [place] vs. transplanted heart: [place] heart COPD (chronic obstructive pulmonary disease) J44.1 COPD type: COPD with acute exacerbation HTN (hypertension), benign I10 Impaired fasting glucose R73.01 Morbid obesity E66.01 SHIRA (obstructive sleep apnea) G47.33 DVT prophylaxis Z29.9 Hypokalemia E87.6 (1) CAD (coronary artery disease) Associated angina: without angina Coronary Disease-Associated Artery/Lesion type: [place] artery [place] vs. transplanted heart: [place] heart Qualified Code(s): I25.10 - Atherosclerotic heart disease of [place] coronary artery without angina pectoris (2) COPD (chronic obstructive pulmonary disease) COPD type: COPD with acute exacerbation Qualified Code(s): J44.1 - Chronic obstructive pulmonary disease with (acute) exacerbation
[2021-03-28] MEDS: MELATONIN 3 MG TAB PO PRN (21:06)
[2021-03-28] MEDS: ESZOPICLONE 1 MG TAB PO PRN (21:06)
[2021-03-28] MEDS: ATORVASTATIN 40 MG TAB PO SCH (21:09)
[2021-03-29] MEDS: ALBUT/IPRATROP 3MG/0.5MG NEB 3 ML VIAL INH SCH ×2 (07:27→20:18)
[2021-03-29] MEDS: BUMETANIDE 4 MG in SYRINGE 0 ML IV SCH ×2 (08:57→17:39)
[2021-03-29] MEDS: UMECLIDINIUM/VILANTEROL 62.5/25MCG 7 PUFFS/INHALER INH SCH (08:59)
[2021-03-29] MEDS: DOCUSATE SODIUM 100 MG CAP PO PRN (09:00)
[2021-03-29] MEDS: CALCIUM 600MG + VIT D 400 IU TAB PO SCH ×2 (09:00→21:10)
[2021-03-29] MEDS: FLUTICASONE FUROATE 100MCG 14 PUFFS/INHALER INH SCH (09:00)
[2021-03-29] MEDS: FERROUS SULFATE 325 MG TAB PO SCH (09:01)
[2021-03-29] MEDS: CYANOCOBALAMIN 500 MCG TABLET (VITAMIN B-12) PO SCH (09:01)
[2021-03-29] MEDS: APIXABAN 5 MG TABLET PO SCH ×2 (09:02→21:09)
[2021-03-29] MEDS: POTASSIUM CHLORIDE CRTAB 20 MEQ TABCR PO SCH ×2 (09:02→21:12)
[2021-03-29] MEDS: OMEGA-3 (PURIFIED FISH OIL) 1 GM CAP PO SCH (09:03)
[2021-03-29] MEDS: PANTOprazole 40 MG TAB PO SCH (09:03)
[2021-03-29] MEDS: METOPROLOL SUCC 50MG EXT REL TAB PO SCH ×2 (09:04→21:08)
[2021-03-29] MEDS: TRIAMCINOLONE ACET NASAL SPRAY 10.8ML BTL NAE SCH (09:09)
[2021-03-29] MEDS: INSULIN GLARGINE SOLOSTAR 100 UNITS/ML 3 ML PEN SC SCH ×2 (09:10→21:06)
[2021-03-29] MEDS: INSULIN ASPART PER UNIT SC SCH ×4 (09:22→21:06)
[2021-03-29] MEDS: ACETAMINOPHEN 325 MG TAB PO PRN ×3 (09:23→19:56)
[2021-03-29] MEDS: dexAMETHasone 10 MG in SYRINGE 0 ML IV SCH (10:55)
--- NOTE | 2021-03-29 14:41 | Hospitalist Progress Note ---
Date of Service March 29, 2021 Assessment & Plan (1) Pneumonia due to COVID-19 virus: Plan: able to stay on high flow 40L 100% yesterday and today, happy because he can eat/drink better able to have a more meaningful conversation with him today about intubation, [facility] spoke with him as well he does not want intubated, he understands it would not offer him any benefit if he gets into respiratory distress we can make him comfortable currently he is comfortable on high flow, he is eating and drinking use CPAP HS over 2 weeks now of needing max high flow and/or CPAP day #16 dexamethasone -- increased to 10mg on 03/24/21 due to refractory symptoms and high O2 requirements. Suspect he has an element of ARDS from his COVID decrease to 8mg IV tomorrow, slowly taper completed 5-day course of Remdesivir. completed 7-day course of IV abx in the event of bacterial superinfection. most recent procal negative. cxr 4 days ago with extensive infiltrates - likely combo of COVID-19 pneumonia + pulmonary edema, continue Bumex 4mg IV bid (2) Acute on chronic respiratory failure with hypoxia and hypercapnia: Plan: acute component - #1, #3. chronic - COPD. usually on 4 L NC O2 at home. able to stay on 40L and 100% today and yesterday, will need CPAP/BIPAP HS (3) Acute on chronic diastolic (congestive) heart failure: Plan: cont IV bumex diuresis. could consider PO metazolone before AM bumex to enhance diuresis. had lost 10kg+ of weight but then his diuresis stalled despite 4mg IV BID of bumex. dry weight is uncertain. some records suggest 120kg. cont bumex 4mg IV BID. able to eat and drink today (4) Atrial fibrillation, permanent: Plan: rates acceptable cont metoprolol cont eliquis BID cont tele (5) CAD (coronary artery disease): Plan: no ischemic sx's at this time cont statin, BB (6) COPD (chronic obstructive pulmonary disease): Plan: cont bronchodilators, steroids, home inhalers, etc see above (7) HTN (hypertension), benign: Plan: controlled (8) Impaired fasting glucose: Plan: last HbA1C < 6% [id number], because of steroids & TPN, glucoses are running high increased lantus to 15 units BID novolog tightened again sugars better today (9) Morbid obesity: Plan: BMI 45 (10) SHIRA (obstructive sleep apnea): Plan: typically on CPAP at home (11) DVT prophylaxis: Plan: eliquis 5mg BID (12) Hypokalemia: Plan: replaced and resolved Plan: continue CPAP HS and high flow during the day if he is uncomfortable or gets into distress then transition to comfort care Admission and Anticipated Discharge Date Admission Date: March 14, 2021 Subjective patient stable today on 40L 100%, saturations 89%, no distress at all appreciate Finn MORRIS who came to speak with him today about goals of care Rodrigo agrees again that he does not want intubated, understands it would not offer him any benefit he wants to see how he does with high flow so he can eat/drink we talked that if he gets worse I will make him comfortable Review of Systems Review of Systems: All systems reviewed & are unremarkable except as noted in Subjective Respiratory: + cough, + dyspnea and + dyspnea on exertion Physical Exam Physical Exam: General: well developed, obese, no acute distress, comfortable Neck: supple, trachea midline, normal thyroid Lungs: clear to auscultation bilaterally, diminished breath sounds, tachypneic, no accessory muscle use, no distress Heart: regular S1 and S2, no murmur, peripheral pulses normal, capillary refill normal, no edema Abdomen: soft, NT, ND, + BS, no hepatomegaly, normal to percussion Extremities: normal in appearance, no cyanosis, no petechiae, strength is 5/5 bilaterally Neuro: awake, cooperative, moves all extremities, no focal motor deficits, CN II-XII intact, sensation in extremities intact, normal speech Skin: warm, dry, no rash, normal turgor Psych: Awake, alert oriented x 3, flat affect Results & Data Results & Data ([facility]) Vital Signs (Past 12 Hours) Vital Signs Temp Pulse Pulse Resp BP BP Pulse Ox 03/29/21 14:12 99 H 22 89 L 03/29/21 12:00 36.5 C 100 H 22 108/56 L 88 L 03/29/21 10:32 102 H 20 91 03/29/21 07:50 36.5 C 90 20 99/56 L 86 L 12/29/21 07:28 79 22 89 L 03/29/21 03:13 36.3 C L 81 18 114/73 92 03/29/21 02:55 84 32 H 90 Laboratory Results Laboratory Results - last 24 hr 03/28/21 03/28/21 03/29/21 16:22 20:09 07:46 POC Glucose 180 H 205 H 138 H 03/29/21 12:04 POC Glucose 169 H Medications Administered Current Inpatient Medications Acetaminophen (Acetaminophen 325 Mg Tab) 650 mg PO Q4H PRN PRN Reason: pain/fever Stop: 04/13/21 11:54 Last Admin: 03/29/21 13:53 Dose: 650 mg Documented by: Al Hydrox/Mg Hydrox/Simethicone (Aluminum/Magnesium Susp 30 Ml Udc) 30 ml PO Q6H PRN PRN Reason: Dyspepsia Stop: 04/13/21 11:54 Albuterol (Albuterol Hfa 8 Gm Inhaler) 1 puffs INH Q6H PRN PRN Reason: Shortness Of Breath Or Wheezing Stop: 04/13/21 11:54 Albuterol (Albut/Ipratrop 3mg/0.5mg Neb 3 Ml Vial) 3 ml INH BIDR [facility] Stop: 04/13/21 11:54 Last Admin: 03/29/21 07:27 Dose: 3 ml Documented by: Albuterol (Albut/Ipratrop 3mg/0.5mg Neb 3 Ml Vial) 3 ml NEB Q2H PRN PRN Reason: Shortness of Breath/Wheezing Stop: 04/19/21 02:39 Last Admin: 03/26/21 11:30 Dose: 3 ml Documented by: Apixaban (Apixaban 5 Mg Tablet) 5 mg PO BID [facility] Stop: 04/13/21 12:14 Last Admin: 03/29/21 09:02 Dose: 5 mg Documented by: Atorvastatin Calcium (Atorvastatin 40 Mg Tab) 80 mg PO HS [facility] Stop: 04/13/21 20:59 Last Admin: 03/28/21 21:09 Dose: 80 mg Documented by: Cyanocobalamin (Cyanocobalamin 500 Mcg Tablet (Vitamin B-12)) 1,000 mcg PO QAM [facility] Stop: 04/14/21 08:59 Last Admin: 03/29/21 09:01 Dose: 1,000 mcg Documented by: Dextrose (Dextrose 50% 50 Ml Syringe) 25 - 50 ml IV UD PRN; Protocol PRN Reason: Hypoglycemia Protocol Stop: 04/23/21 19:14 Docusate Sodium (Docusate Sodium 100 Mg Cap) 100 mg PO BID PRN PRN Reason: constipation Stop: 04/13/21 11:54 Last Admin: 03/29/21 09:00 Dose: 100 mg Documented by: Eszopiclone (Eszopiclone 1 Mg Tab) 1 mg PO HSZ PRN PRN Reason: Insomnia Stop: 04/17/21 01:18 Last Admin: 03/28/21 21:06 Dose: 1 mg Documented by: Ferrous Sulfate (Ferrous Sulfate 325 Mg Tab) 325 mg PO QAM [facility] Stop: 04/14/21 08:59 Last Admin: 03/29/21 09:01 Dose: 325 mg Documented by: Fish Oil ([place]-3 (Purified Fish Oil) 1 Gm Cap) 1 gm PO QAM [facility] Stop: 04/14/21 08:59 Last Admin: 03/29/21 09:03 Dose: 1 gm Documented by: Fluticasone Furoate (Fluticasone Furoate 100mcg 14 Puffs/Inhaler) 1 puffs INH QAM FREDDY Stop: 04/13/21 11:54 Last Admin: 03/29/21 09:00 Dose: 1 puffs Documented by: Glucagon (Glucagon For Inj 1 Mg Vial) 1 mg IM UD PRN; Protocol PRN Reason: Hypoglycemia Protocol Stop: 04/23/21 19:14 Glucose (Glucose 40% Gel 15 Gm Tube) 15 - 30 gm PO UD PRN; Protocol PRN Reason: Hypoglycemia Protocol Stop: 04/23/21 19:14 Glucose (Glucose 10 Tabs/Tube) 4 - 8 tabs PO UD PRN; Protocol PRN Reason: Hypoglycemia Protocol Stop: 04/23/21 19:14 Heparin Sodium (Beef Lung) (Heparin 10 Unit/Ml 5 Ml Flush) 5 ml FLUSH PRN PRN PRN Reason: Flush Stop: 04/21/21 18:14 Dextrose (D10w) 1,000 mls @ 0 mls/hr IV .Q0M PRN PRN Reason: protocol (see label comments) Stop: 04/22/21 15:59 Dexamethasone 10 mg/ Syringe 2.5 mls @ 1 mls/min IV DAILY [facility] Stop: 04/24/21 08:59 Last Admin: 03/29/21 10:55 Dose: 1 mls/min Documented by: Bumetanide 4 mg/ Syringe 16 mls @ 4 mls/min IV BID@0900,1700 [facility] Stop: 04/24/21 16:59 Last Admin: 03/29/21 08:57 Dose: 4 mls/min Documented by: Insulin Aspart (Insulin Aspart Per Unit) 0 units SC ACHS [facility] Stop: 04/23/21 20:59 Last Admin: 03/29/21 13:21 Dose: 10 units Documented by: Insulin Glargine (Insulin Glargine Solostar 100 Units/Ml 3 Ml Pen) 15 units SC BID [facility] Stop: 04/25/21 20:59 Last Admin: 03/29/21 09:10 Dose: 15 units Documented by: Ipratropium [place] (Ipratropium Hfa Inhaler (Combivent Respimat P&T Subs)) 1 puffs INH BID PRN PRN Reason: Shortness Of Breath Stop: 04/13/21 12:55 Magnesium Hydroxide (Magnesium Hydroxide Susp 30 Ml Udc) 30 ml PO Q6H PRN PRN Reason: Constipation Stop: 04/13/21 11:54 Melatonin (Melatonin 3 Mg Tab) 3 mg PO HS PRN PRN Reason: Sleep Stop: 04/27/21 19:37 Last Admin: 03/28/21 21:06 Dose: 3 mg Documented by: Metoprolol Succinate (Metoprolol Succ 50mg Ext Rel Tab) 200 mg PO BID [facility] Stop: 04/13/21 12:14 Last Admin: 03/29/21 09:04 Dose: 200 mg Documented by: Miconazole Nitrate (Miconazole Nitrate Powder 43 Gm) 1 appln EXT PRN PRN PRN Reason: Affected Skin Folds Stop: 04/14/21 10:07 Miscellaneous (Carbohydrates For Hypoglycemia ) 15 - 30 gm PO UD PRN PRN Reason: Hypoglycemia Treatment Stop: 04/23/21 19:14 Multivitamins (Multivitamin Tab) 1 tab PO QDD [facility] Stop: 04/13/21 16:29 Last Admin: 03/23/21 16:37 Dose: 1 tab Documented by: Multivitamins/Minerals (Calcium 600mg + Vit D 400 Iu Tab) 1 tab PO BID [facility] Stop: 04/13/21 20:59 Last Admin: 03/29/21 09:00 Dose: 1 tab Documented by: Ondansetron HCl (Ondansetron Inj 2 Mg/Ml 2 Ml Vial) 4 mg IV Q6H PRN PRN Reason: Nausea Stop: 04/13/21 11:54 Pantoprazole Sodium (Pantoprazole 40 Mg Tab) 40 mg PO DAILY [facility] Stop: 04/13/21 09:29 Last Admin: 03/29/21 09:03 Dose: 40 mg Documented by: Polyethylene Glycol (Polyethylene (Miralax) 17 Gm Pack) 17 gm PO DAILY PRN PRN Reason: Constipation Stop: 04/13/21 11:54 Potassium Chloride (Potassium Chloride 10 Meq Tabcr) 10 meq PO DAILY [facility] Stop: 04/14/21 08:59 Last Admin: 03/24/21 07:43 Dose: 10 meq Documented by: Potassium Chloride (Potassium Chloride Crtab 20 Meq Tabcr) 20 meq PO BID [facility] Stop: 04/25/21 20:59 Last Admin: 03/29/21 09:02 Dose: 20 meq Documented by: Triamcinolone Acetonide (Triamcinolone Acet Nasal [place] 10.8ml Btl) 2 sprays ROLLY DAILY [facility] Stop: 04/14/21 08:59 Last Admin: 03/29/21 09:09 Dose: 2 sprays Documented by: Umeclidinium/Vilanterol (Umeclidinium/Vilanterol 62.5/25mcg 7 Puffs/Inhaler) 1 puffs INH DAILY [facility] Stop: 04/13/21 11:54 Last Admin: 03/29/21 08:59 Dose: 1 puffs Documented by: PG Care Time/CCT Total # of Minutes Spent Total Time Spent with Patient: Total time spent is greater than 50% in coordination of care (as documented) at patient's floor/unit and/or counseling patient: Coding Level of Care Code 59244 Subseq Hosp Care Lvl 2 Diagnoses Pneumonia due to COVID-19 virus U07.1; J12.82 Acute on chronic respiratory failure with hypoxia and hypercapnia J96.21; J96.22 Acute on chronic diastolic (congestive) heart failure I50.33 Atrial fibrillation, permanent I48.21 CAD (coronary artery disease) I25.10 Coronary Disease-Associated Artery/Lesion type: [place] artery [place] vs. transplanted heart: [place] heart Associated angina: without angina COPD (chronic obstructive pulmonary disease) J44.1 COPD type: COPD with acute exacerbation HTN (hypertension), benign I10 Impaired fasting glucose R73.01 Morbid obesity E66.01 SHIRA (obstructive sleep apnea) G47.33 DVT prophylaxis Z29.9 Hypokalemia E87.6 (1) CAD (coronary artery disease) Coronary Disease-Associated Artery/Lesion type: [place] artery [place] vs. transplanted heart: [place] heart Associated angina: without angina Qualified Code(s): I25.10 - Atherosclerotic heart disease of [place] coronary artery without angina pectoris (2) COPD (chronic obstructive pulmonary disease) COPD type: COPD with acute exacerbation Qualified Code(s): J44.1 - Chronic obstructive pulmonary disease with (acute) exacerbation
[2021-03-29] MEDS: MELATONIN 3 MG TAB PO PRN (21:07)
[2021-03-29] MEDS: ESZOPICLONE 1 MG TAB PO PRN (21:07)
[2021-03-29] MEDS: ATORVASTATIN 40 MG TAB PO SCH (21:09)
[2021-03-30] MEDS: ALBUT/IPRATROP 3MG/0.5MG NEB 3 ML VIAL INH SCH ×2 (07:30→19:21)
[2021-03-30] MEDS: FERROUS SULFATE 325 MG TAB PO SCH (09:12)
[2021-03-30] MEDS: dexAMETHasone 10 MG in SYRINGE 0 ML IV SCH (09:12)
[2021-03-30] MEDS: OMEGA-3 (PURIFIED FISH OIL) 1 GM CAP PO SCH (09:12)
[2021-03-30] MEDS: PANTOprazole 40 MG TAB PO SCH (09:13)
[2021-03-30] MEDS: CALCIUM 600MG + VIT D 400 IU TAB PO SCH ×2 (09:22→20:32)
[2021-03-30] MEDS: CYANOCOBALAMIN 500 MCG TABLET (VITAMIN B-12) PO SCH (09:22)
[2021-03-30] MEDS: APIXABAN 5 MG TABLET PO SCH ×2 (09:22→20:32)
[2021-03-30] MEDS: METOPROLOL SUCC 50MG EXT REL TAB PO SCH ×2 (09:22→20:35)
[2021-03-30] MEDS: BUMETANIDE 4 MG in SYRINGE 0 ML IV SCH ×2 (09:23→17:51)
[2021-03-30] MEDS: FLUTICASONE FUROATE 100MCG 14 PUFFS/INHALER INH SCH (09:23)
[2021-03-30] MEDS: UMECLIDINIUM/VILANTEROL 62.5/25MCG 7 PUFFS/INHALER INH SCH (09:23)
[2021-03-30] MEDS: TRIAMCINOLONE ACET NASAL SPRAY 10.8ML BTL NAE SCH (09:24)
[2021-03-30] MEDS: INSULIN GLARGINE SOLOSTAR 100 UNITS/ML 3 ML PEN SC SCH ×2 (09:24→20:32)
[2021-03-30] MEDS: ACETAMINOPHEN 325 MG TAB PO PRN ×3 (09:31→20:37)
[2021-03-30] MEDS: INSULIN ASPART PER UNIT SC SCH ×4 (09:31→20:35)
[2021-03-30] MEDS: DOCUSATE SODIUM 100 MG CAP PO PRN (09:32)
[2021-03-30] MEDS: POTASSIUM CHLORIDE CRTAB 20 MEQ TABCR PO SCH ×2 (09:32→20:34)
[2021-03-30] MEDS: POLYETHYLENE (MIRALAX) 17 GM PACK PO PRN (13:51)
--- NOTE | 2021-03-30 15:08 | Hospitalist Progress Note ---
Date of Service March 30, 2021 Assessment & Plan (1) Pneumonia due to COVID-19 virus: Plan: able to stay on high flow 40L 100% the past 3 days, eating and drinking a little more able to have a more meaningful conversation with him about intubation, Finn MORRIS spoke with him as well he does not want intubated, he understands it would not offer him any benefit if he gets into respiratory distress we can make him comfortable currently he is comfortable on high flow, he is eating and drinking use CPAP HS working on getting family in to visit him over 2 weeks now of needing max high flow and/or CPAP day #17 dexamethasone -- increased to 10mg on 03/24/21 due to refractory symptoms and high O2 requirements. Suspect he has an element of ARDS from his COVID decrease to 8mg IV, taper by 2mg every 2 days until off completed 5-day course of Remdesivir. completed 7-day course of IV abx in the event of bacterial superinfection. most recent procal negative. cxr 4 days ago with extensive infiltrates - likely combo of COVID-19 pneumonia + pulmonary edema, continue Bumex 4mg IV bid (2) Acute on chronic respiratory failure with hypoxia and hypercapnia: Plan: acute component - #1, #3. chronic - COPD. usually on 4 L NC O2 at home. able to stay on 40L and 100% past three days, will need CPAP/BIPAP HS (3) Acute on chronic diastolic (congestive) heart failure: Plan: cont IV bumex diuresis had lost 10kg+ of weight but then his diuresis stalled despite 4mg IV BID of bumex. dry weight is uncertain. some records suggest 120kg. cont bumex 4mg IV BID. able to eat and drink today BMP tomorrow (4) Atrial fibrillation, permanent: Plan: rates acceptable cont metoprolol cont eliquis BID can move to medical status (5) CAD (coronary artery disease): Plan: no ischemic sx's at this time cont statin, BB (6) COPD (chronic obstructive pulmonary disease): Plan: cont bronchodilators, steroids, home inhalers, etc see above (7) HTN (hypertension), benign: Plan: controlled (8) Impaired fasting glucose: Plan: last HbA1C < 6% [id number], because of steroids & TPN, glucoses are running high increased lantus to 15 units BID novolog tightened again sugars better today (9) Morbid obesity: Plan: BMI 45 (10) SHIRA (obstructive sleep apnea): Plan: typically on CPAP at home (11) DVT prophylaxis: Plan: eliquis 5mg BID (12) Hypokalemia: Plan: replaced and resolved Plan: continue CPAP HS and high flow during the day if he is uncomfortable or gets into distress then transition to comfort care Admission and Anticipated Discharge Date Admission Date: March 14, 2021 Subjective patient having another decent day, saturations 89% on 40L 100% working on getting him off restrictions so family can visit he c/o constipation, trying Miralax he is eating okay, no abdominal pain, no fever Review of Systems Review of Systems: All systems reviewed & are unremarkable except as noted in Subjective Gastrointestinal: + constipation; no abdominal pain, no nausea and no vomiting Physical Exam Physical Exam: General: well developed, obese, no acute distress, comfortable Neck: supple, trachea midline, normal thyroid Lungs: clear to auscultation bilaterally, diminished breath sounds, tachypneic, no accessory muscle use, no distress Heart: regular S1 and S2, no murmur, peripheral pulses normal, capillary refill normal, no edema Abdomen: soft, NT, ND, + BS, no hepatomegaly, normal to percussion Extremities: normal in appearance, no cyanosis, no petechiae, strength is 5/5 bilaterally Neuro: awake, cooperative, moves all extremities, no focal motor deficits, CN II-XII intact, sensation in extremities intact, normal speech Skin: warm, dry, no rash, normal turgor Psych: Awake, alert oriented x 3, flat affect Results & Data Results & Data ([facility]) Vital Signs (Past 12 Hours) Vital Signs Temp Pulse Pulse Resp BP Pulse Ox 03/30/21 14:50 36.4 C L 105 H 22 109/69 91 03/30/21 14:32 104 H 22 91 03/30/21 11:00 36.6 C 98 H 22 140/78 89 L 03/30/21 10:49 98 H 24 91 03/30/21 07:30 74 76 26 H 88 L 03/30/21 07:00 36.3 C L 80 22 102/71 90 03/30/21 03:50 36.7 C 83 20 110/72 91 PG Care Time/CCT Total # of Minutes Spent Total Time Spent with Patient: Total time spent is greater than 50% in coordination of care (as documented) at patient's floor/unit and/or counseling patient: Coding Level of Care Code 75092 Subseq Hosp Care Lvl 2 Diagnoses Pneumonia due to COVID-19 virus U07.1; J12.82 Acute on chronic respiratory failure with hypoxia and hypercapnia J96.21; J96.22 Acute on chronic diastolic (congestive) heart failure I50.33 Atrial fibrillation, permanent I48.21 CAD (coronary artery disease) I25.10 Coronary Disease-Associated Artery/Lesion type: [place] artery [place] vs. transplanted heart: [place] heart Associated angina: without angina COPD (chronic obstructive pulmonary disease) J44.1 COPD type: COPD with acute exacerbation HTN (hypertension), benign I10 Impaired fasting glucose R73.01 Morbid obesity E66.01 SHIRA (obstructive sleep apnea) G47.33 DVT prophylaxis Z29.9 Hypokalemia E87.6 (1) CAD (coronary artery disease) Coronary Disease-Associated Artery/Lesion type: [place] artery [place] vs. transplanted heart: [place] heart Associated angina: without angina Qualified Code(s): I25.10 - Atherosclerotic heart disease of [place] coronary artery without angina pectoris (2) COPD (chronic obstructive pulmonary disease) COPD type: COPD with acute exacerbation Qualified Code(s): J44.1 - Chronic obstructive pulmonary disease with (acute) exacerbation
[2021-03-30] MEDS: MULTIVITAMIN TAB PO SCH (16:38)
[2021-03-30] MEDS: ATORVASTATIN 40 MG TAB PO SCH (20:32)
[2021-03-30] MEDS: MELATONIN 3 MG TAB PO PRN (23:52)
[2021-03-31] MEDS: ACETAMINOPHEN 325 MG TAB PO PRN ×3 (07:34→20:32)
[2021-03-31] MEDS: UMECLIDINIUM/VILANTEROL 62.5/25MCG 7 PUFFS/INHALER INH SCH (07:36)
[2021-03-31] MEDS: dexAMETHasone 8 MG in SYRINGE 0 ML IV SCH (07:36)
[2021-03-31] MEDS: BUMETANIDE 4 MG in SYRINGE 0 ML IV SCH ×2 (07:36→16:12)
[2021-03-31] MEDS: FLUTICASONE FUROATE 100MCG 14 PUFFS/INHALER INH SCH (07:36)
[2021-03-31] MEDS: OMEGA-3 (PURIFIED FISH OIL) 1 GM CAP PO SCH (07:37)
[2021-03-31] MEDS: TRIAMCINOLONE ACET NASAL SPRAY 10.8ML BTL NAE SCH (07:37)
[2021-03-31] MEDS: CYANOCOBALAMIN 500 MCG TABLET (VITAMIN B-12) PO SCH (07:38)
[2021-03-31] MEDS: APIXABAN 5 MG TABLET PO SCH ×2 (07:38→20:33)
[2021-03-31] MEDS: FERROUS SULFATE 325 MG TAB PO SCH (07:38)
[2021-03-31] MEDS: METOPROLOL SUCC 50MG EXT REL TAB PO SCH ×2 (07:38→20:45)
[2021-03-31] MEDS: PANTOprazole 40 MG TAB PO SCH (07:39)
[2021-03-31] MEDS: POTASSIUM CHLORIDE CRTAB 20 MEQ TABCR PO SCH ×2 (07:39→20:45)
[2021-03-31] MEDS: CALCIUM 600MG + VIT D 400 IU TAB PO SCH ×2 (07:39→20:34)
[2021-03-31 07:44] LABS: BUN Creatinine Ratio 63.5 (10-20); Calcium 8.9 mg/dl (8.5-10.1); Creatinine Clr Calc Pharmacy 80.2 ml/min; Est GFR (African American) 84.1 ml/min; Est GFR (Non-African American) 72.6 ml/min; Magnesium 2.4 mg/dl (1.8-2.4); Phosphorus 4.1 mg/dl (2.5-4.9); Potassium 4.7 mmol/L (3.5-5.1)
[2021-03-31] MEDS: ALBUT/IPRATROP 3MG/0.5MG NEB 3 ML VIAL INH SCH ×2 (08:07→19:49)
[2021-03-31] MEDS: INSULIN ASPART PER UNIT SC SCH ×4 (09:02→20:46)
[2021-03-31] MEDS: INSULIN GLARGINE SOLOSTAR 100 UNITS/ML 3 ML PEN SC SCH ×2 (09:03→20:46)
--- NOTE | 2021-03-31 12:55 | Hospitalist Progress Note ---
Date of Service March 31, 2021 Assessment & Plan (1) Pneumonia due to COVID-19 virus: Plan: able to stay on high flow 40L 100% the past 4 days, eating and drinking a little more able to have a more meaningful conversation with him about intubation, Finn MORRIS spoke with him as well he does not want intubated, he understands it would not offer him any benefit if he gets into respiratory distress we can make him comfortable currently he is comfortable on high flow, he is eating and drinking use CPAP HS working on getting family in to visit him, can come off precautions tomorrow over 2 weeks now of needing max high flow and/or CPAP day #18 dexamethasone -- increased to 10mg on 03/24/21 due to refractory symptoms and high O2 requirements. Suspect he has an element of ARDS from his COVID decrease to 8mg IV, taper by 2mg every 2 days until off completed 5-day course of Remdesivir. completed 7-day course of IV abx in the event of bacterial superinfection. most recent procal negative. cxr 5 days ago with extensive infiltrates - likely combo of COVID-19 pneumonia + pulmonary edema, continue Bumex 4mg IV bid (2) Acute on chronic respiratory failure with hypoxia and hypercapnia: Plan: acute component - #1, #3. chronic - COPD. usually on 4 L NC O2 at home. able to stay on 40L and 100% past four days, will need CPAP/BIPAP HS (3) Acute on chronic diastolic (congestive) heart failure: Plan: cont IV bumex diuresis had lost 10kg+ of weight but then his diuresis stalled despite 4mg IV BID of bumex. dry weight is uncertain. some records suggest 120kg. cont bumex 4mg IV BID. able to eat and drink today BMP today shows stable Cr and K (4) Atrial fibrillation, permanent: Plan: rates acceptable cont metoprolol cont eliquis BID can move to medical status (5) CAD (coronary artery disease): Plan: no ischemic sx's at this time cont statin, BB (6) COPD (chronic obstructive pulmonary disease): Plan: cont bronchodilators, steroids, home inhalers, etc see above (7) HTN (hypertension), benign: Plan: controlled (8) Impaired fasting glucose: Plan: last HbA1C < 6% [id number], because of steroids & TPN, glucoses are running high increased lantus to 15 units BID novolog tightened again sugars staelidia (9) Morbid obesity: Plan: BMI 45 (10) SHIRA (obstructive sleep apnea): Plan: typically on CPAP at home (11) DVT prophylaxis: Plan: eliquis 5mg BID (12) Hypokalemia: Plan: replaced and resolved Plan: continue CPAP HS and high flow during the day if he is uncomfortable or gets into distress then transition to comfort care Admission and Anticipated Discharge Date Admission Date: March 14, 2021 Subjective patient doing fine on 40L 100% again eating and drinking quite well, no nausea, moved his bowels reviewed labs, Cr and K are stable infection control recommends he stay in isolation until tomorrow will try to get family in tomorrow Review of Systems Review of Systems: All systems reviewed & are unremarkable except as noted in Subjective Constitutional: + fatigue and + weakness Respiratory: + cough and + dyspnea on exertion Physical Exam Physical Exam: General: well developed, obese, no acute distress, comfortable Neck: supple, trachea midline, normal thyroid Lungs: clear to auscultation bilaterally, diminished breath sounds, tachypneic, no accessory muscle use, no distress Heart: regular S1 and S2, no murmur, peripheral pulses normal, capillary refill normal, no edema Abdomen: soft, NT, ND, + BS, no hepatomegaly, normal to percussion Extremities: normal in appearance, no cyanosis, no petechiae, strength is 5/5 bilaterally Neuro: awake, cooperative, moves all extremities, no focal motor deficits, CN II-XII intact, sensation in extremities intact, normal speech Skin: warm, dry, no rash, normal turgor Psych: Awake, alert oriented x 3, flat affect Results & Data Results & Data ([facility]) Vital Signs (Past 12 Hours) Vital Signs Temp Pulse Pulse Resp BP Pulse Ox 03/31/21 10:34 91 H 18 89 L 03/31/21 08:08 36.5 C 83 20 117/76 86 L 03/31/21 08:07 90 18 90 03/31/21 03:45 85 26 H 91 Laboratory Results Laboratory Results - last 24 hr 03/30/21 03/30/21 03/31/21 16:13 20:18 06:34 Sodium 140 Potassium 4.7 Chloride 99 Carbon Dioxide 38 H Anion Gap 3.0 BUN 65 H Creatinine 1.02 Est Cr Clr Drug Dosing 80.2 Est GFR ( Amer) 84.1 Est GFR (Non-Af Amer) 72.6 BUN/Creatinine Ratio 63.5 H Glucose 143 H POC Glucose 265 H 252 H Calcium 8.9 Phosphorus 4.1 Magnesium 2.4 03/31/21 03/31/21 07:18 11:31 Sodium Potassium Chloride Carbon Dioxide Anion Gap BUN Creatinine Est Cr Clr Drug Dosing Est GFR ( Amer) Est GFR (Non-Af Amer) BUN/Creatinine Ratio Glucose POC Glucose 156 H 241 H Calcium Phosphorus Magnesium Medications Administered Current Inpatient Medications Acetaminophen (Acetaminophen 325 Mg Tab) 650 mg PO Q4H PRN PRN Reason: pain/fever Stop: 04/13/21 11:54 Last Admin: 03/31/21 07:34 Dose: 650 mg Documented by: Al Hydrox/Mg Hydrox/Simethicone (Aluminum/Magnesium Susp 30 Ml Udc) 30 ml PO Q6H PRN PRN Reason: Dyspepsia Stop: 04/13/21 11:54 Albuterol (Albuterol Hfa 8 Gm Inhaler) 1 puffs INH Q6H PRN PRN Reason: Shortness Of Breath Or Wheezing Stop: 04/13/21 11:54 Albuterol (Albut/Ipratrop 3mg/0.5mg Neb 3 Ml Vial) 3 ml INH BIDR [facility] Stop: 04/13/21 11:54 Last Admin: 03/31/21 08:07 Dose: 3 ml Documented by: Albuterol (Albut/Ipratrop 3mg/0.5mg Neb 3 Ml Vial) 3 ml NEB Q2H PRN PRN Reason: Shortness of Breath/Wheezing Stop: 04/19/21 02:39 Last Admin: 03/26/21 11:30 Dose: 3 ml Documented by: Apixaban (Apixaban 5 Mg Tablet) 5 mg PO BID [facility] Stop: 04/13/21 12:14 Last Admin: 03/31/21 07:38 Dose: 5 mg Documented by: Atorvastatin Calcium (Atorvastatin 40 Mg Tab) 80 mg PO HS [facility] Stop: 04/13/21 20:59 Last Admin: 03/30/21 20:32 Dose: 80 mg Documented by: Cyanocobalamin (Cyanocobalamin 500 Mcg Tablet (Vitamin B-12)) 1,000 mcg PO QAM [facility] Stop: 04/14/21 08:59 Last Admin: 03/31/21 07:38 Dose: 1,000 mcg Documented by: Dextrose (Dextrose 50% 50 Ml Syringe) 25 - 50 ml IV UD PRN; Protocol PRN Reason: Hypoglycemia Protocol Stop: 04/23/21 19:14 Docusate Sodium (Docusate Sodium 100 Mg Cap) 100 mg PO BID PRN PRN Reason: constipation Stop: 04/13/21 11:54 Last Admin: 03/30/21 09:32 Dose: 100 mg Documented by: Eszopiclone (Eszopiclone 1 Mg Tab) 1 mg PO HSZ PRN PRN Reason: Insomnia Stop: 04/17/21 01:18 Last Admin: 03/29/21 21:07 Dose: 1 mg Documented by: Ferrous Sulfate (Ferrous Sulfate 325 Mg Tab) 325 mg PO QAM [facility] Stop: 04/14/21 08:59 Last Admin: 03/31/21 07:38 Dose: 325 mg Documented by: Fish Oil ([place]-3 (Purified Fish Oil) 1 Gm Cap) 1 gm PO QAM [facility] Stop: 04/14/21 08:59 Last Admin: 03/31/21 07:37 Dose: 1 gm Documented by: Fluticasone Furoate (Fluticasone Furoate 100mcg 14 Puffs/Inhaler) 1 puffs INH [facility] Stop: 04/13/21 11:54 Last Admin: 03/31/21 07:36 Dose: 1 puffs Documented by: Glucagon (Glucagon For Inj 1 Mg Vial) 1 mg IM UD PRN; Protocol PRN Reason: Hypoglycemia Protocol Stop: 04/23/21 19:14 Glucose (Glucose 40% Gel 15 Gm Tube) 15 - 30 gm PO UD PRN; Protocol PRN Reason: Hypoglycemia Protocol Stop: 04/23/21 19:14 Glucose (Glucose 10 Tabs/Tube) 4 - 8 tabs PO UD PRN; Protocol PRN Reason: Hypoglycemia Protocol Stop: 04/23/21 19:14 Heparin Sodium (Beef Lung) (Heparin 10 Unit/Ml 5 Ml Flush) 5 ml FLUSH PRN PRN PRN Reason: Flush Stop: 04/21/21 18:14 Bumetanide 4 mg/ Syringe 16 mls @ 4 mls/min IV BID@0900,1700 [facility] Stop: 04/24/21 16:59 Last Admin: 03/31/21 07:36 Dose: 4 mls/min Documented by: Dexamethasone 8 mg/ Syringe 2 mls @ 1 mls/min IV DAILY [facility] Stop: 04/30/21 08:59 Last Admin: 03/31/21 07:36 Dose: 1 mls/min Documented by: Insulin Aspart (Insulin Aspart Per Unit) 0 units SC ACHS [facility] Stop: 04/23/21 20:59 Last Admin: 03/31/21 12:20 Dose: 11 units Documented by: Insulin Glargine (Insulin Glargine Solostar 100 Units/Ml 3 Ml Pen) 15 units SC BID [facility] Stop: 04/25/21 20:59 Last Admin: 03/31/21 09:03 Dose: 15 units Documented by: Ipratropium [place] (Ipratropium Hfa Inhaler (Combivent Respimat P&T Subs)) 1 puffs INH BID PRN PRN Reason: Shortness Of Breath Stop: 04/13/21 12:55 Magnesium Hydroxide (Magnesium Hydroxide Susp 30 Ml Udc) 30 ml PO Q6H PRN PRN Reason: Constipation Stop: 04/13/21 11:54 Melatonin (Melatonin 3 Mg Tab) 3 mg PO HS PRN PRN Reason: Sleep Stop: 04/27/21 19:37 Last Admin: 03/30/21 23:52 Dose: 3 mg Documented by: Metoprolol Succinate (Metoprolol Succ 50mg Ext Rel Tab) 200 mg PO BID [facility] Stop: 04/13/21 12:14 Last Admin: 03/31/21 07:38 Dose: 200 mg Documented by: Miconazole Nitrate (Miconazole Nitrate Powder 43 Gm) 1 appln EXT PRN PRN PRN Reason: Affected Skin Folds Stop: 04/14/21 10:07 Miscellaneous (Carbohydrates For Hypoglycemia ) 15 - 30 gm PO UD PRN PRN Reason: Hypoglycemia Treatment Stop: 04/23/21 19:14 Multivitamins (Multivitamin Tab) 1 tab PO QDD [facility] Stop: 04/13/21 16:29 Last Admin: 03/30/21 16:38 Dose: 1 tab Documented by: Multivitamins/Minerals (Calcium 600mg + Vit D 400 Iu Tab) 1 tab PO BID [facility] Stop: 04/13/21 20:59 Last Admin: 03/31/21 07:39 Dose: 1 tab Documented by: Ondansetron HCl (Ondansetron Inj 2 Mg/Ml 2 Ml Vial) 4 mg IV Q6H PRN PRN Reason: Nausea Stop: 04/13/21 11:54 Pantoprazole Sodium (Pantoprazole 40 Mg Tab) 40 mg PO DAILY [facility] Stop: 04/13/21 09:29 Last Admin: 03/31/21 07:39 Dose: 40 mg Documented by: Polyethylene Glycol (Polyethylene (Miralax) 17 Gm Pack) 17 gm PO DAILY PRN PRN Reason: Constipation Stop: 04/13/21 11:54 Last Admin: 03/30/21 13:51 Dose: 17 gm Documented by: Potassium Chloride (Potassium Chloride Crtab 20 Meq Tabcr) 20 meq PO BID [facility] Stop: 04/25/21 20:59 Last Admin: 03/31/21 07:39 Dose: 20 meq Documented by: Triamcinolone Acetonide (Triamcinolone Acet Nasal [place] 10.8ml Btl) 2 sprays [place] DAILY [facility] Stop: 04/14/21 08:59 Last Admin: 03/31/21 07:37 Dose: Not Given Documented by: Umeclidinium/Vilanterol (Umeclidinium/Vilanterol 62.5/25mcg 7 Puffs/Inhaler) 1 puffs INH DAILY [facility] Stop: 04/13/21 11:54 Last Admin: 03/31/21 07:36 Dose: 1 puffs Documented by: PG Care Time/CCT Total # of Minutes Spent Total Time Spent with Patient: Total time spent is greater than 50% in coordination of care (as documented) at patient's floor/unit and/or counseling patient: Coding Level of Care Code 15264 Subseq Hosp Care Lvl 2 Diagnoses Pneumonia due to COVID-19 virus U07.1; J12.82 Acute on chronic respiratory failure with hypoxia and hypercapnia J96.21; J96.22 Acute on chronic diastolic (congestive) heart failure I50.33 Atrial fibrillation, permanent I48.21 CAD (coronary artery disease) I25.10 Associated angina: without angina Coronary Disease-Associated Artery/Lesion type: [place] artery [place] vs. transplanted heart: [place] heart COPD (chronic obstructive pulmonary disease) J44.1 COPD type: COPD with acute exacerbation HTN (hypertension), benign I10 Impaired fasting glucose R73.01 Morbid obesity E66.01 SHIRA (obstructive sleep apnea) G47.33 DVT prophylaxis Z29.9 Hypokalemia E87.6 (1) CAD (coronary artery disease) Associated angina: without angina Coronary Disease-Associated Artery/Lesion type: [place] artery [place] vs. transplanted heart: [place] heart Qualified Code(s): I25.10 - Atherosclerotic heart disease of [place] coronary artery without angina pectoris (2) COPD (chronic obstructive pulmonary disease) COPD type: COPD with acute exacerbation Qualified Code(s): J44.1 - Chronic obstructive pulmonary disease with (acute) exacerbation
[2021-03-31] MEDS: POLYETHYLENE (MIRALAX) 17 GM PACK PO PRN (16:12)
[2021-03-31] MEDS: MULTIVITAMIN TAB PO SCH (16:12)
[2021-03-31] MEDS: ATORVASTATIN 40 MG TAB PO SCH (20:33)
[2021-03-31] MEDS: MELATONIN 3 MG TAB PO PRN (22:05)
[2021-04-01] MEDS: ALBUT/IPRATROP 3MG/0.5MG NEB 3 ML VIAL INH SCH ×2 (07:23→19:22)
[2021-04-01] MEDS: ACETAMINOPHEN 325 MG TAB PO PRN ×2 (07:52→14:20)
[2021-04-01] MEDS: CALCIUM 600MG + VIT D 400 IU TAB PO SCH ×2 (07:53→20:28)
[2021-04-01] MEDS: APIXABAN 5 MG TABLET PO SCH ×2 (07:54→20:29)
[2021-04-01] MEDS: METOPROLOL SUCC 50MG EXT REL TAB PO SCH ×2 (07:54→20:28)
[2021-04-01] MEDS: FERROUS SULFATE 325 MG TAB PO SCH (07:55)
[2021-04-01] MEDS: OMEGA-3 (PURIFIED FISH OIL) 1 GM CAP PO SCH (07:55)
[2021-04-01] MEDS: CYANOCOBALAMIN 500 MCG TABLET (VITAMIN B-12) PO SCH (07:56)
[2021-04-01] MEDS: PANTOprazole 40 MG TAB PO SCH (07:56)
[2021-04-01] MEDS: BUMETANIDE 4 MG in SYRINGE 0 ML IV SCH ×2 (07:57→17:22)
[2021-04-01] MEDS: dexAMETHasone 8 MG in SYRINGE 0 ML IV SCH (07:57)
[2021-04-01] MEDS: UMECLIDINIUM/VILANTEROL 62.5/25MCG 7 PUFFS/INHALER INH SCH (07:57)
[2021-04-01] MEDS: TRIAMCINOLONE ACET NASAL SPRAY 10.8ML BTL NAE SCH (07:58)
[2021-04-01] MEDS: FLUTICASONE FUROATE 100MCG 14 PUFFS/INHALER INH SCH (07:58)
[2021-04-01] MEDS: POTASSIUM CHLORIDE CRTAB 20 MEQ TABCR PO SCH ×2 (07:58→20:28)
[2021-04-01] MEDS: INSULIN GLARGINE SOLOSTAR 100 UNITS/ML 3 ML PEN SC SCH ×2 (08:15→20:29)
[2021-04-01] MEDS: INSULIN ASPART PER UNIT SC SCH ×4 (08:15→20:29)
--- NOTE | 2021-04-01 14:07 | Hospitalist Progress Note ---
Date of Service April 01, 2021 Assessment & Plan (1) Pneumonia due to COVID-19 virus: Plan: able to stay on high flow 40L 100% the past 5 days, eating and drinking a little more each day, moving his bowels able to have a more meaningful conversation with him about intubation, Finn MORRIS spoke with him as well he does not want intubated, he understands it would not offer him any benefit if he gets into respiratory distress we can make him comfortable currently he is comfortable on high flow use CPAP HS working on getting family in to visit him, can come off precautions tomorrow over 2 weeks now of needing max high flow and/or CPAP day #19 dexamethasone -- increased to 10mg on 03/24/21 due to refractory symptoms and high O2 requirements. Suspect he has an element of ARDS from his COVID decrease to 6mg IV tomorrow, taper by 2mg every 2 days until off completed 5-day course of Remdesivir. completed 7-day course of IV abx in the event of bacterial superinfection. most recent procal negative. cxr 5 days ago with extensive infiltrates - likely combo of COVID-19 pneumonia + pulmonary edema, continue Bumex 4mg IV bid (2) Acute on chronic respiratory failure with hypoxia and hypercapnia: Plan: acute component - #1, #3. chronic - COPD. usually on 4 L NC O2 at home. able to stay on 40L and 100% past 5 days, will need CPAP/BIPAP HS (3) Acute on chronic diastolic (congestive) heart failure: Plan: cont IV bumex diuresis had lost 10kg+ of weight but then his diuresis stalled despite 4mg IV BID of bumex. dry weight is uncertain. some records suggest 120kg. cont bumex 4mg IV BID. able to eat and drink for several days now [facility] 03/31 shows stable Cr and K (4) Atrial fibrillation, permanent: Plan: rates acceptable cont metoprolol cont eliquis BID can move to medical status (5) CAD (coronary artery disease): Plan: no ischemic sx's at this time cont statin, BB (6) COPD (chronic obstructive pulmonary disease): Plan: cont bronchodilators, steroids, home inhalers, etc see above (7) HTN (hypertension), benign: Plan: controlled (8) Impaired fasting glucose: Plan: last HbA1C < 6% [id number], because of steroids & TPN, glucoses are running high increased lantus to 15 units BID novolog tightened again sugars stable (9) Morbid obesity: Plan: BMI 45 (10) SHIRA (obstructive sleep apnea): Plan: typically on CPAP at home (11) DVT prophylaxis: Plan: eliquis 5mg BID (12) Hypokalemia: Plan: replaced and resolved Plan: continue CPAP HS and high flow during the day if he is uncomfortable or gets into distress then transition to comfort care Admission and Anticipated Discharge Date Admission Date: March 14, 2021 Subjective patient eating well, had a BM today breathing comfortably, minimal cough removed isolation precautions today, awaiting a bed to be available to family can visit Review of Systems Review of Systems: All systems reviewed & are unremarkable except as noted in Subjective Physical Exam Physical Exam: General: well developed, obese, no acute distress, comfortable Neck: supple, trachea midline, normal thyroid Lungs: clear to auscultation bilaterally, diminished breath sounds, tachypneic, no accessory muscle use, no distress Heart: regular S1 and S2, no murmur, peripheral pulses normal, capillary refill normal, no edema Abdomen: soft, NT, ND, + BS, no hepatomegaly, normal to percussion Extremities: normal in appearance, no cyanosis, no petechiae, strength is 5/5 bilaterally Neuro: awake, cooperative, moves all extremities, no focal motor deficits, CN II-XII intact, sensation in extremities intact, normal speech Skin: warm, dry, no rash, normal turgor Psych: Awake, alert oriented x 3, flat affect Results & Data Results & Data ([facility]) Vital Signs (Past 12 Hours) Vital Signs Temp Pulse Pulse Resp BP Pulse Ox 04/01/21 11:23 90 20 90 04/01/21 07:23 86 88 22 90 04/01/21 07:00 36.8 C 76 20 114/78 96 04/01/21 02:40 84 19 91 Medications Administered Current Inpatient Medications Acetaminophen (Acetaminophen 325 Mg Tab) 650 mg PO Q4H PRN PRN Reason: pain/fever Stop: 04/13/21 11:54 Last Admin: 04/01/21 07:52 Dose: 650 mg Documented by: Al Hydrox/Mg Hydrox/Simethicone (Aluminum/Magnesium Susp 30 Ml Udc) 30 ml PO Q6H PRN PRN Reason: Dyspepsia Stop: 04/13/21 11:54 Albuterol (Albuterol Hfa 8 Gm Inhaler) 1 puffs INH Q6H PRN PRN Reason: Shortness Of Breath Or Wheezing Stop: 04/13/21 11:54 Albuterol (Albut/Ipratrop 3mg/0.5mg Neb 3 Ml Vial) 3 ml INH BIDR [facility] Stop: 04/13/21 11:54 Last Admin: 04/01/21 07:23 Dose: 3 ml Documented by: Albuterol (Albut/Ipratrop 3mg/0.5mg Neb 3 Ml Vial) 3 ml NEB Q2H PRN PRN Reason: Shortness of Breath/Wheezing Stop: 04/19/21 02:39 Last Admin: 03/26/21 11:30 Dose: 3 ml Documented by: Apixaban (Apixaban 5 Mg Tablet) 5 mg PO BID [facility] Stop: 04/13/21 12:14 Last Admin: 04/01/21 07:54 Dose: 5 mg Documented by: Atorvastatin Calcium (Atorvastatin 40 Mg Tab) 80 mg PO HS [facility] Stop: 04/13/21 20:59 Last Admin: 03/31/21 20:33 Dose: 80 mg Documented by: Cyanocobalamin (Cyanocobalamin 500 Mcg Tablet (Vitamin B-12)) 1,000 mcg PO QAM [facility] Stop: 04/14/21 08:59 Last Admin: 04/01/21 07:56 Dose: 1,000 mcg Documented by: Dextrose (Dextrose 50% 50 Ml Syringe) 25 - 50 ml IV UD PRN; Protocol PRN Reason: Hypoglycemia Protocol Stop: 04/23/21 19:14 Docusate Sodium (Docusate Sodium 100 Mg Cap) 100 mg PO BID PRN PRN Reason: constipation Stop: 04/13/21 11:54 Last Admin: 03/30/21 09:32 Dose: 100 mg Documented by: Eszopiclone (Eszopiclone 1 Mg Tab) 1 mg PO HSZ PRN PRN Reason: Insomnia Stop: 04/17/21 01:18 Last Admin: 03/29/21 21:07 Dose: 1 mg Documented by: Ferrous Sulfate (Ferrous Sulfate 325 Mg Tab) 325 mg PO QAM [facility] Stop: 04/14/21 08:59 Last Admin: 04/01/21 07:55 Dose: 325 mg Documented by: Fish Oil ([place]-3 (Purified Fish Oil) 1 Gm Cap) 1 gm PO QAM [facility] Stop: 04/14/21 08:59 Last Admin: 04/01/21 07:55 Dose: 1 gm Documented by: Fluticasone Furoate (Fluticasone Furoate 100mcg 14 Puffs/Inhaler) 1 puffs INH QAM [facility] Stop: 04/13/21 11:54 Last Admin: 04/01/21 07:58 Dose: 1 puffs Documented by: Glucagon (Glucagon For Inj 1 Mg Vial) 1 mg IM UD PRN; Protocol PRN Reason: Hypoglycemia Protocol Stop: 04/23/21 19:14 Glucose (Glucose 40% Gel 15 Gm Tube) 15 - 30 gm PO UD PRN; Protocol PRN Reason: Hypoglycemia Protocol Stop: 04/23/21 19:14 Glucose (Glucose 10 Tabs/Tube) 4 - 8 tabs PO UD PRN; Protocol PRN Reason: Hypoglycemia Protocol Stop: 04/23/21 19:14 Heparin Sodium (Beef Lung) (Heparin 10 Unit/Ml 5 Ml Flush) 5 ml FLUSH PRN PRN PRN Reason: Flush Stop: 04/21/21 18:14 Bumetanide 4 mg/ Syringe 16 mls @ 4 mls/min IV BID@0900,1700 [facility] Stop: 04/24/21 16:59 Last Admin: 04/01/21 07:57 Dose: 4 mls/min Documented by: Dexamethasone 8 mg/ Syringe 2 mls @ 1 mls/min IV DAILY [facility] Stop: 04/30/21 08:59 Last Admin: 04/01/21 07:57 Dose: 1 mls/min Documented by: Insulin Aspart (Insulin Aspart Per Unit) 0 units SC ACHS [facility] Stop: 04/23/21 20:59 Last Admin: 04/01/21 12:13 Dose: 12 units Documented by: Insulin Glargine (Insulin Glargine Solostar 100 Units/Ml 3 Ml Pen) 15 units SC BID [facility] Stop: 04/25/21 20:59 Last Admin: 04/01/21 08:15 Dose: 15 units Documented by: Ipratropium [place] (Ipratropium Hfa Inhaler (Combivent Respimat P&T Subs)) 1 puffs INH BID PRN PRN Reason: Shortness Of Breath Stop: 04/13/21 12:55 Magnesium Hydroxide (Magnesium Hydroxide Susp 30 Ml Udc) 30 ml PO Q6H PRN PRN Reason: Constipation Stop: 04/13/21 11:54 Melatonin (Melatonin 3 Mg Tab) 3 mg PO HS PRN PRN Reason: Sleep Stop: 04/27/21 19:37 Last Admin: 03/31/21 22:05 Dose: 3 mg Documented by: Metoprolol Succinate (Metoprolol Succ 50mg Ext Rel Tab) 200 mg PO BID [facility] Stop: 04/13/21 12:14 Last Admin: 04/01/21 07:54 Dose: 200 mg Documented by: Miconazole Nitrate (Miconazole Nitrate Powder 43 Gm) 1 appln EXT PRN PRN PRN Reason: Affected Skin Folds Stop: 04/14/21 10:07 Last Admin: 03/31/21 21:57 Dose: 1 appln Documented by: Miscellaneous (Carbohydrates For Hypoglycemia ) 15 - 30 gm PO UD PRN PRN Reason: Hypoglycemia Treatment Stop: 04/23/21 19:14 Multivitamins (Multivitamin Tab) 1 tab PO QDD [facility] Stop: 04/13/21 16:29 Last Admin: 03/31/21 16:12 Dose: 1 tab Documented by: Multivitamins/Minerals (Calcium 600mg + Vit D 400 Iu Tab) 1 tab PO BID [facility] Stop: 04/13/21 20:59 Last Admin: 04/01/21 07:53 Dose: 1 tab Documented by: Ondansetron HCl (Ondansetron Inj 2 Mg/Ml 2 Ml Vial) 4 mg IV Q6H PRN PRN Reason: Nausea Stop: 04/13/21 11:54 Pantoprazole Sodium (Pantoprazole 40 Mg Tab) 40 mg PO DAILY [facility] Stop: 04/13/21 09:29 Last Admin: 04/01/21 07:56 Dose: 40 mg Documented by: Polyethylene Glycol (Polyethylene (Miralax) 17 Gm Pack) 17 gm PO DAILY PRN PRN Reason: Constipation Stop: 04/13/21 11:54 Last Admin: 03/31/21 16:12 Dose: 17 gm Documented by: Potassium Chloride (Potassium Chloride Crtab 20 Meq Tabcr) 20 meq PO BID [facility] Stop: 04/25/21 20:59 Last Admin: 04/01/21 07:58 Dose: 20 meq Documented by: Triamcinolone Acetonide (Triamcinolone Acet Nasal [place] 10.8ml Btl) 2 sprays ROLLY DAILY [facility] Stop: 04/14/21 08:59 Last Admin: 04/01/21 07:58 Dose: 2 sprays Documented by: Umeclidinium/Vilanterol (Umeclidinium/Vilanterol 62.5/25mcg 7 Puffs/Inhaler) 1 puffs INH DAILY [facility] Stop: 04/13/21 11:54 Last Admin: 04/01/21 07:57 Dose: 1 puffs Documented by: PG Care Time/CCT Total # of Minutes Spent Total Time Spent with Patient: Total time spent is greater than 50% in coordination of care (as documented) at patient's floor/unit and/or counseling patient: Coding Level of Care Code 51480 Subseq Hosp Care Lvl 2 Diagnoses Pneumonia due to COVID-19 virus U07.1; J12.82 Acute on chronic respiratory failure with hypoxia and hypercapnia J96.21; J96.22 Acute on chronic diastolic (congestive) heart failure I50.33 Atrial fibrillation, permanent I48.21 CAD (coronary artery disease) I25.10 Associated angina: without angina Coronary Disease-Associated Artery/Lesion type: [place] artery [place] vs. transplanted heart: [place] heart COPD (chronic obstructive pulmonary disease) J44.1 COPD type: COPD with acute exacerbation HTN (hypertension), benign I10 Impaired fasting glucose R73.01 Morbid obesity E66.01 SHIRA (obstructive sleep apnea) G47.33 DVT prophylaxis Z29.9 Hypokalemia E87.6 (1) CAD (coronary artery disease) Associated angina: without angina Coronary Disease-Associated Artery/Lesion type: [place] artery [place] vs. transplanted heart: [place] heart Qualified Code(s): I25.10 - Atherosclerotic heart disease of [place] coronary artery without angina pectoris (2) COPD (chronic obstructive pulmonary disease) COPD type: COPD with acute exacerbation Qualified Code(s): J44.1 - Chronic obstructive pulmonary disease with (acute) exacerbation
[2021-04-01] MEDS: POLYETHYLENE (MIRALAX) 17 GM PACK PO PRN (15:43)
[2021-04-01] MEDS: MULTIVITAMIN TAB PO SCH (17:22)
[2021-04-01] MEDS: ATORVASTATIN 40 MG TAB PO SCH (20:29)
[2021-04-01] MEDS: MELATONIN 3 MG TAB PO PRN (22:35)
[2021-04-02] MEDS: POLYETHYLENE (MIRALAX) 17 GM PACK PO PRN (07:14)
[2021-04-02] MEDS: dexAMETHasone 8 MG in SYRINGE 0 ML IV SCH (07:16)
[2021-04-02] MEDS: UMECLIDINIUM/VILANTEROL 62.5/25MCG 7 PUFFS/INHALER INH SCH (07:16)
[2021-04-02] MEDS: FLUTICASONE FUROATE 100MCG 14 PUFFS/INHALER INH SCH (07:16)
[2021-04-02] MEDS: APIXABAN 5 MG TABLET PO SCH ×2 (07:17→21:13)
[2021-04-02] MEDS: METOPROLOL SUCC 50MG EXT REL TAB PO SCH ×2 (07:17→21:24)
[2021-04-02] MEDS: PANTOprazole 40 MG TAB PO SCH (07:17)
[2021-04-02] MEDS: OMEGA-3 (PURIFIED FISH OIL) 1 GM CAP PO SCH (07:17)
[2021-04-02] MEDS: CYANOCOBALAMIN 500 MCG TABLET (VITAMIN B-12) PO SCH (07:18)
[2021-04-02] MEDS: BUMETANIDE 4 MG in SYRINGE 0 ML IV SCH ×2 (07:18→17:13)
[2021-04-02] MEDS: CALCIUM 600MG + VIT D 400 IU TAB PO SCH ×2 (07:18→21:13)
[2021-04-02] MEDS: FERROUS SULFATE 325 MG TAB PO SCH (07:18)
[2021-04-02] MEDS: POTASSIUM CHLORIDE CRTAB 20 MEQ TABCR PO SCH ×2 (07:19→21:13)
[2021-04-02] MEDS: TRIAMCINOLONE ACET NASAL SPRAY 10.8ML BTL NAE SCH (07:19)
[2021-04-02] MEDS: ALBUT/IPRATROP 3MG/0.5MG NEB 3 ML VIAL INH SCH ×2 (07:24→19:15)
[2021-04-02] MEDS: INSULIN GLARGINE SOLOSTAR 100 UNITS/ML 3 ML PEN SC SCH ×2 (08:29→21:25)
[2021-04-02] MEDS: ACETAMINOPHEN 325 MG TAB PO PRN ×2 (08:30→15:29)
[2021-04-02] MEDS: INSULIN ASPART PER UNIT SC SCH ×4 (08:30→21:24)
[2021-04-02] MEDS: MULTIVITAMIN TAB PO SCH (15:29)
[2021-04-02] MEDS: ATORVASTATIN 40 MG TAB PO SCH (21:13)
[2021-04-02] MEDS: MELATONIN 3 MG TAB PO PRN (21:25)
--- NOTE | 2021-04-02 21:39 | Hospitalist Progress Note ---
Date of Service April 02, 2021 Assessment & Plan (1) Pneumonia due to COVID-19 virus: Plan: able to stay on high flow 40L 100% the past 6 days, eating and drinking a little more each day, moving his bowels able to have a more meaningful conversation with him about intubation, Finn MORRIS spoke with him as well he does not want intubated, he understands it would not offer him any benefit if he gets into respiratory distress we can make him comfortable currently he is comfortable on high flow use CPAP HS working on getting family in to visit him, officially off precautions, just no rooms outside of COVID unit over 2 weeks now of needing max high flow and/or CPAP day #20 dexamethasone -- increased to 10mg on 03/24/21 due to refractory symptoms and high O2 requirements. Suspect he has an element of ARDS from his COVID decrease to 6mg IV taper by 2mg every 2 days until off completed 5-day course of Remdesivir. completed 7-day course of IV abx in the event of bacterial superinfection. most recent procal negative. cxr 6 days ago with extensive infiltrates - likely combo of COVID-19 pneumonia + pulmonary edema, continue Bumex 4mg IV bid (2) Acute on chronic respiratory failure with hypoxia and hypercapnia: Plan: acute component - #1, #3. chronic - COPD. usually on 4 L NC O2 at home. able to stay on 40L and 100% past 6 days, will need CPAP/BIPAP HS (3) Acute on chronic diastolic (congestive) heart failure: Plan: cont IV bumex diuresis had lost 10kg+ of weight but then his diuresis stalled despite 4mg IV BID of bumex. dry weight is uncertain. some records suggest 120kg. cont bumex 4mg IV BID. able to eat and drink for several days now [facility] 03/31 shows stable Cr and K (4) Atrial fibrillation, permanent: Plan: rates acceptable cont metoprolol cont eliquis BID can move to medical status (5) CAD (coronary artery disease): Plan: no ischemic sx's at this time cont statin, BB (6) COPD (chronic obstructive pulmonary disease): Plan: cont bronchodilators, steroids, home inhalers, etc see above (7) HTN (hypertension), benign: Plan: controlled (8) Impaired fasting glucose: Plan: last HbA1C < 6% [id number], because of steroids & TPN, glucoses are running high increased lantus to 15 units BID novolog tightened again sugars stable (9) Morbid obesity: Plan: BMI 45 (10) SHIRA (obstructive sleep apnea): Plan: typically on CPAP at home (11) DVT prophylaxis: Plan: eliquis 5mg BID (12) Hypokalemia: Plan: replaced and resolved Plan: continue CPAP HS and high flow during the day if he is uncomfortable or gets into distress then transition to comfort care main goal is to get family in for a visit he is not getting worse but also not getting better would be ideal palliative care 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 Admission and Anticipated Discharge Date Admission Date: March 14, 2021 Subjective patient continues to be stable on high flow, was even down slightly to 40L 95% today he continues to eat well, making urine, had a BM he is using NIPPV at night still awaiting room outside of COVID unit so his family can visit, he is off precautions Review of Systems Review of Systems: All systems reviewed & are unremarkable except as noted in Subjective Constitutional: + fatigue and + weakness Respiratory: + cough, + dyspnea and + dyspnea on exertion Physical Exam Physical Exam: General: well developed, obese, no acute distress, comfortable Neck: supple, trachea midline, normal thyroid Lungs: clear to auscultation bilaterally, diminished breath sounds, tachypneic, no accessory muscle use, no distress Heart: regular S1 and S2, no murmur, peripheral pulses normal, capillary refill normal, no edema Abdomen: soft, NT, ND, + BS, no hepatomegaly, normal to percussion Extremities: normal in appearance, no cyanosis, no petechiae, strength is diminished bilaterally, not getting OOB Neuro: awake, cooperative, moves all extremities, no focal motor deficits, CN II-XII intact, sensation in extremities intact, normal speech Skin: warm, dry, no rash, normal turgor Psych: Awake, alert oriented x 3, flat affect Results & Data Results & Data ([facility]) Vital Signs (Past 12 Hours) Vital Signs Temp Pulse Resp BP BP Pulse Ox Pulse Ox 04/02/21 21:22 91 H 115/78 04/02/21 20:00 88 L 04/02/21 19:15 93 H 89 L 04/02/21 15:17 36.7 C 85 20 130/78 88 L 04/02/21 14:53 91 H 22 88 L 04/02/21 10:52 83 18 93 Laboratory Results Laboratory Results - last 24 hr 04/02/21 04/02/21 04/02/21 07:32 11:44 16:41 POC Glucose 132 H 222 H 161 H 04/02/21 20:04 POC Glucose 223 H Medications Administered Current Inpatient Medications Acetaminophen (Acetaminophen 325 Mg Tab) 650 mg PO Q4H PRN PRN Reason: pain/fever Stop: 04/13/21 11:54 Last Admin: 04/02/21 15:29 Dose: 650 mg Documented by: Al Hydrox/Mg Hydrox/Simethicone (Aluminum/Magnesium Susp 30 Ml Udc) 30 ml PO Q6H PRN PRN Reason: Dyspepsia Stop: 04/13/21 11:54 Albuterol (Albuterol Hfa 8 Gm Inhaler) 1 puffs INH Q6H PRN PRN Reason: Shortness Of Breath Or Wheezing Stop: 04/13/21 11:54 Albuterol (Albut/Ipratrop 3mg/0.5mg Neb 3 Ml Vial) 3 ml INH BIDR [facility] Stop: 04/13/21 11:54 Last Admin: 04/02/21 19:15 Dose: 3 ml Documented by: Albuterol (Albut/Ipratrop 3mg/0.5mg Neb 3 Ml Vial) 3 ml NEB Q2H PRN PRN Reason: Shortness of Breath/Wheezing Stop: 04/19/21 02:39 Last Admin: 03/26/21 11:30 Dose: 3 ml Documented by: Apixaban (Apixaban 5 Mg Tablet) 5 mg PO BID [facility] Stop: 04/13/21 12:14 Last Admin: 04/02/21 21:13 Dose: 5 mg Documented by: Atorvastatin Calcium (Atorvastatin 40 Mg Tab) 80 mg PO HS [facility] Stop: 04/13/21 20:59 Last Admin: 04/02/21 21:13 Dose: 80 mg Documented by: Cyanocobalamin (Cyanocobalamin 500 Mcg Tablet (Vitamin B-12)) 1,000 mcg PO QAM [facility] Stop: 04/14/21 08:59 Last Admin: 04/02/21 07:18 Dose: 1,000 mcg Documented by: Dextrose (Dextrose 50% 50 Ml Syringe) 25 - 50 ml IV UD PRN; Protocol PRN Reason: Hypoglycemia Protocol Stop: 04/23/21 19:14 Docusate Sodium (Docusate Sodium 100 Mg Cap) 100 mg PO BID PRN PRN Reason: constipation Stop: 04/13/21 11:54 Last Admin: 03/30/21 09:32 Dose: 100 mg Documented by: Eszopiclone (Eszopiclone 1 Mg Tab) 1 mg PO HSZ PRN PRN Reason: Insomnia Stop: 04/17/21 01:18 Last Admin: 03/29/21 21:07 Dose: 1 mg Documented by: Ferrous Sulfate (Ferrous Sulfate 325 Mg Tab) 325 mg PO QAM [facility] Stop: 04/14/21 08:59 Last Admin: 04/02/21 07:18 Dose: 325 mg Documented by: Fish Oil ([place]-3 (Purified Fish Oil) 1 Gm Cap) 1 gm PO QAM [facility] Stop: 04/14/21 08:59 Last Admin: 04/02/21 07:17 Dose: 1 gm Documented by: Fluticasone Furoate (Fluticasone Furoate 100mcg 14 Puffs/Inhaler) 1 puffs INH QAM [facility] Stop: 04/13/21 11:54 Last Admin: 04/02/21 07:16 Dose: 1 puffs Documented by: Glucagon (Glucagon For Inj 1 Mg Vial) 1 mg IM UD PRN; Protocol PRN Reason: Hypoglycemia Protocol Stop: 04/23/21 19:14 Glucose (Glucose 40% Gel 15 Gm Tube) 15 - 30 gm PO UD PRN; Protocol PRN Reason: Hypoglycemia Protocol Stop: 04/23/21 19:14 Glucose (Glucose 10 Tabs/Tube) 4 - 8 tabs PO UD PRN; Protocol PRN Reason: Hypoglycemia Protocol Stop: 04/23/21 19:14 Heparin Sodium (Beef Lung) (Heparin 10 Unit/Ml 5 Ml Flush) 5 ml FLUSH PRN PRN PRN Reason: Flush Stop: 04/21/21 18:14 Bumetanide 4 mg/ Syringe 16 mls @ 4 mls/min IV BID@0900,1700 [facility] Stop: 04/24/21 16:59 Last Admin: 04/02/21 17:13 Dose: 4 mls/min Documented by: Dexamethasone 8 mg/ Syringe 2 mls @ 1 mls/min IV DAILY [facility] Stop: 04/30/21 08:59 Last Admin: 04/02/21 07:16 Dose: 1 mls/min Documented by: Insulin Aspart (Insulin Aspart Per Unit) 0 units SC ACHS [facility] Stop: 04/23/21 20:59 Last Admin: 04/02/21 21:24 Dose: 6 units Documented by: Insulin Glargine (Insulin Glargine Solostar 100 Units/Ml 3 Ml Pen) 15 units SC BID [facility] Stop: 04/25/21 20:59 Last Admin: 04/02/21 21:25 Dose: 15 units Documented by: Ipratropium [place] (Ipratropium Hfa Inhaler (Combivent Respimat P&T Subs)) 1 puffs INH BID PRN PRN Reason: Shortness Of Breath Stop: 04/13/21 12:55 Magnesium Hydroxide (Magnesium Hydroxide Susp 30 Ml Udc) 30 ml PO Q6H PRN PRN Reason: Constipation Stop: 04/13/21 11:54 Last Admin: 04/02/21 15:34 Dose: 30 ml Documented by: Melatonin (Melatonin 3 Mg Tab) 3 mg PO HS PRN PRN Reason: Sleep Stop: 04/27/21 19:37 Last Admin: 04/02/21 21:25 Dose: 3 mg Documented by: Metoprolol Succinate (Metoprolol Succ 50mg Ext Rel Tab) 200 mg PO BID [facility] Stop: 04/13/21 12:14 Last Admin: 04/02/21 21:24 Dose: 200 mg Documented by: Miconazole Nitrate (Miconazole Nitrate Powder 43 Gm) 1 appln EXT PRN PRN PRN Reason: Affected Skin Folds Stop: 04/14/21 10:07 Last Admin: 03/31/21 21:57 Dose: 1 appln Documented by: Miscellaneous (Carbohydrates For Hypoglycemia ) 15 - 30 gm PO UD PRN PRN Reason: Hypoglycemia Treatment Stop: 04/23/21 19:14 Multivitamins (Multivitamin Tab) 1 tab PO QDD [facility] Stop: 04/13/21 16:29 Last Admin: 04/02/21 15:29 Dose: 1 tab Documented by: Multivitamins/Minerals (Calcium 600mg + Vit D 400 Iu Tab) 1 tab PO BID [facility] Stop: 04/13/21 20:59 Last Admin: 04/02/21 21:13 Dose: 1 tab Documented by: Ondansetron HCl (Ondansetron Inj 2 Mg/Ml 2 Ml Vial) 4 mg IV Q6H PRN PRN Reason: Nausea Stop: 04/13/21 11:54 Pantoprazole Sodium (Pantoprazole 40 Mg Tab) 40 mg PO DAILY [facility] Stop: 04/13/21 09:29 Last Admin: 04/02/21 07:17 Dose: 40 mg Documented by: Polyethylene Glycol (Polyethylene (Miralax) 17 Gm Pack) 17 gm PO DAILY PRN PRN Reason: Constipation Stop: 04/13/21 11:54 Last Admin: 04/02/21 07:14 Dose: 17 gm Documented by: Potassium Chloride (Potassium Chloride Crtab 20 Meq Tabcr) 20 meq PO BID [facility] Stop: 04/25/21 20:59 Last Admin: 04/02/21 21:13 Dose: 20 meq Documented by: Triamcinolone Acetonide (Triamcinolone Acet Nasal Mineral 10.8ml Btl) 2 sprays [place] DAILY [facility] Stop: 04/14/21 08:59 Last Admin: 04/02/21 07:19 Dose: Not Given Documented by: Umeclidinium/Vilanterol (Umeclidinium/Vilanterol 62.5/25mcg 7 Puffs/Inhaler) 1 puffs INH DAILY [facility] Stop: 04/13/21 11:54 Last Admin: 04/02/21 07:16 Dose: 1 puffs Documented by: PG Care Time/CCT Total # of Minutes Spent Total Time Spent with Patient: Total time spent is greater than 50% in coordination of care (as documented) at patient's floor/unit and/or counseling patient: Coding Level of Care Code 91565 Subseq Hosp Care Lvl 2 Diagnoses Pneumonia due to COVID-19 virus U07.1; J12.82 Acute on chronic respiratory failure with hypoxia and hypercapnia J96.21; J96.22 Acute on chronic diastolic (congestive) heart failure I50.33 Atrial fibrillation, permanent I48.21 CAD (coronary artery disease) I25.10 Coronary Disease-Associated Artery/Lesion type: [place] artery [place] vs. transplanted heart: [place] heart Associated angina: without angina COPD (chronic obstructive pulmonary disease) J44.1 COPD type: COPD with acute exacerbation HTN (hypertension), benign I10 Impaired fasting glucose R73.01 Morbid obesity E66.01 SHIRA (obstructive sleep apnea) G47.33 DVT prophylaxis Z29.9 Hypokalemia E87.6 (1) CAD (coronary artery disease) Coronary Disease-Associated Artery/Lesion type: [place] artery [place] vs. transplanted heart: [place] heart Associated angina: without angina Qualified Code(s): I25.10 - Atherosclerotic heart disease of [place] coronary artery without angina pectoris (2) COPD (chronic obstructive pulmonary disease) COPD type: COPD with acute exacerbation Qualified Code(s): J44.1 - Chronic obstructive pulmonary disease with (acute) exacerbation
[2021-04-03 06:23] LABS: BUN Creatinine Ratio 66.7 (10-20); Calcium 8.9 mg/dl (8.5-10.1); Creatinine Clr Calc Pharmacy 92.2 ml/min; Est GFR (African American) 98.3 ml/min; Est GFR (Non-African American) 84.8 ml/min
[2021-04-03] MEDS: ALBUT/IPRATROP 3MG/0.5MG NEB 3 ML VIAL INH SCH ×2 (07:17→20:07)
[2021-04-03] MEDS: POTASSIUM CHLORIDE CRTAB 20 MEQ TABCR PO SCH ×2 (08:16→21:21)
[2021-04-03] MEDS: METOPROLOL SUCC 50MG EXT REL TAB PO SCH ×2 (08:17→21:23)
[2021-04-03] MEDS: PANTOprazole 40 MG TAB PO SCH (08:17)
[2021-04-03] MEDS: OMEGA-3 (PURIFIED FISH OIL) 1 GM CAP PO SCH (08:17)
[2021-04-03] MEDS: CYANOCOBALAMIN 500 MCG TABLET (VITAMIN B-12) PO SCH (08:18)
[2021-04-03] MEDS: FERROUS SULFATE 325 MG TAB PO SCH (08:18)
[2021-04-03] MEDS: APIXABAN 5 MG TABLET PO SCH ×2 (08:18→21:23)
[2021-04-03] MEDS: BUMETANIDE 4 MG in SYRINGE 0 ML IV SCH ×2 (08:19→16:27)
[2021-04-03] MEDS: CALCIUM 600MG + VIT D 400 IU TAB PO SCH ×2 (08:19→21:27)
[2021-04-03] MEDS: dexAMETHasone 8 MG in SYRINGE 0 ML IV SCH (08:19)
[2021-04-03] MEDS: FLUTICASONE FUROATE 100MCG 14 PUFFS/INHALER INH SCH (08:20)
[2021-04-03] MEDS: UMECLIDINIUM/VILANTEROL 62.5/25MCG 7 PUFFS/INHALER INH SCH (08:20)
[2021-04-03] MEDS: INSULIN GLARGINE SOLOSTAR 100 UNITS/ML 3 ML PEN SC SCH ×2 (08:20→21:24)
[2021-04-03] MEDS: TRIAMCINOLONE ACET NASAL SPRAY 10.8ML BTL NAE SCH (08:20)
[2021-04-03] MEDS: INSULIN ASPART PER UNIT SC SCH ×4 (08:21→21:24)
[2021-04-03] MEDS: POLYETHYLENE (MIRALAX) 17 GM PACK PO PRN (08:23)
[2021-04-03] MEDS: ACETAMINOPHEN 325 MG TAB PO PRN ×2 (08:23→16:29)
--- NOTE | 2021-04-03 08:30 | Hospitalist Progress Note ---
Date of Service April 03, 2021 Assessment & Plan (1) Pneumonia due to COVID-19 virus: Plan: able to stay on high flow 40L 100%, eating and drinking a little more each day, moving his bowels able to have a more meaningful conversation with him about intubation, Finn MORRIS spoke with him as well he does not want intubated, he understands it would not offer him any benefit if he gets into respiratory distress we can make him comfortable currently he is comfortable on high flow and has remained so use CPAP HS working on getting family in to visit him, officially off precautions, just no rooms outside of COVID unit that can support hi flow oxygen at this time over 2 weeks now of needing max high flow and/or CPAP day #20 dexamethasone -- increased to 10mg on 03/24/21 due to refractory symptoms and high O2 requirements. Suspect he has an element of ARDS from his COVID decrease to 6mg IV taper by 2mg every 2 days until off completed 5-day course of Remdesivir. completed 7-day course of IV abx in the event of bacterial superinfection. most recent procal negative. cxr 6 days ago with extensive infiltrates - likely combo of COVID-19 pneumonia + pulmonary edema, continue Bumex 4mg IV bid (2) Acute on chronic respiratory failure with hypoxia and hypercapnia: Plan: acute component - #1, #3. chronic - COPD. usually on 4 L NC O2 at home. able to stay on 40L and 100% past 6 days, will need CPAP/BIPAP HS (3) Acute on chronic diastolic (congestive) heart failure: Plan: cont IV bumex diuresis had lost 10kg+ of weight but then his diuresis stalled despite 4mg IV BID of bumex. dry weight is uncertain. some records suggest 120kg. cont bumex 4mg IV BID. able to eat and drink for several days now [facility] 03/31 shows stable Cr and K (4) Atrial fibrillation, permanent: Plan: rates acceptable cont metoprolol cont eliquis BID currently on medical status (5) CAD (coronary artery disease): Plan: no ischemic sx's at this time cont statin, BB (6) COPD (chronic obstructive pulmonary disease): Plan: cont bronchodilators, steroids, home inhalers, etc see above (7) HTN (hypertension), benign: Plan: controlled (8) Impaired fasting glucose: Plan: last HbA1C < 6% [id number], because of steroids & TPN, glucoses are running high increased lantus to 15 units BID novolog tightened again sugars stable (9) Morbid obesity: Plan: BMI 45 (10) SHIRA (obstructive sleep apnea): Plan: typically on CPAP at home (11) DVT prophylaxis: Plan: eliquis 5mg BID (12) Hypokalemia: Plan: replaced and resolved Plan: continue CPAP HS and high flow during the day if he is uncomfortable or gets into distress then transition to comfort care main goal is to get family in for a visit he is not getting worse but also not getting better with significant oxygen requirement will need LTAC at this time Admission and Anticipated Discharge Date Admission Date: March 14, 2021 Subjective Patient is awake and alert. He is on significant oxygen requirements however does not appear dyspneic or breathless. Able to tolerate eating well as high flow oxygen at this time Review of Systems Review of Systems: Moderate distress and fatigue no headache, no visual changes no speech or swallowing issues no chest pain, pressure or palpitations Continue shortness of breath, nonproductive cough or wheezes no abdominal pain, nausea or vomiting, no diarrhea no dysuria, hematuria or frequency no focal joint pain or swelling no back pain, CVA tenderness or radicular pain no bruising, bleeding or rashes no focal signs of weakness or numbness or altered sensation no complaints of anxiety or depression.. Physical Exam Physical Exam: The patient appeared mild to moderate respiratory distress Vital signs as documented. Head exam is normocephalic atraumatic Neck is without JVD, thyromegaly, or carotid bruits. Lungs are coarse bilaterally in all lung martínez tachypnea Cardiac exam, Rhythm is regular.. No murmurs, rubs or gallops. Abdominal exam reveals normal bowel sounds, soft non tender, no masses Extremities are nonedematous and both pedal pulses are present Neurologic exam is alert and oriented, no focal loss of strength or sensation Skin is without bruises or rashes Psychologically is without concerns for anxiety or depression.. Results & Data Results & Data ([facility]) Vital Signs (Past 12 Hours) Vital Signs Temp Pulse Pulse Resp BP BP Pulse Ox 04/03/21 07:58 98.2 F 70 20 118/74 90 04/03/21 07:18 74 20 87 L 04/03/21 03:03 88 20 91 04/02/21 23:08 97.7 F 91 H 20 123/78 91 04/02/21 22:29 96 H 33 H 90 04/02/21 21:22 91 H 115/78 PG Care Time/CCT Total # of Minutes Spent Total Time Spent with Patient: Total time spent is greater than 50% in coordination of care (as documented) at patient's floor/unit and/or counseling patient: Coding Level of Care Code 70911 Subseq Hosp Care Lvl 2 Diagnoses Pneumonia due to COVID-19 virus U07.1; J12.82 Acute on chronic respiratory failure with hypoxia and hypercapnia J96.21; J96.22 Acute on chronic diastolic (congestive) heart failure I50.33 Atrial fibrillation, permanent I48.21 CAD (coronary artery disease) I25.10 Associated angina: without angina Coronary Disease-Associated Artery/Lesion type: [place] artery [place] vs. transplanted heart: [place] heart COPD (chronic obstructive pulmonary disease) J44.1 COPD type: COPD with acute exacerbation HTN (hypertension), benign I10 Impaired fasting glucose R73.01 Morbid obesity E66.01 SHIRA (obstructive sleep apnea) G47.33 DVT prophylaxis Z29.9 Hypokalemia E87.6 (1) CAD (coronary artery disease) Associated angina: without angina Coronary Disease-Associated Artery/Lesion type: [place] artery [place] vs. transplanted heart: [place] heart Qualified Code(s): I25.10 - Atherosclerotic heart disease of [place] coronary artery without angina pectoris (2) COPD (chronic obstructive pulmonary disease) COPD type: COPD with acute exacerbation Qualified Code(s): J44.1 - Chronic obstructive pulmonary disease with (acute) exacerbation
[2021-04-03] MEDS: MULTIVITAMIN TAB PO SCH (16:27)
[2021-04-03] MEDS: ATORVASTATIN 40 MG TAB PO SCH (21:21)
[2021-04-03] MEDS: MELATONIN 3 MG TAB PO PRN (21:23)
[2021-04-04] MEDS: ALBUT/IPRATROP 3MG/0.5MG NEB 3 ML VIAL INH SCH ×2 (08:03→19:56)
[2021-04-04] MEDS: FERROUS SULFATE 325 MG TAB PO SCH (08:54)
[2021-04-04] MEDS: OMEGA-3 (PURIFIED FISH OIL) 1 GM CAP PO SCH (08:54)
[2021-04-04] MEDS: ACETAMINOPHEN 325 MG TAB PO PRN ×3 (08:54→20:17)
[2021-04-04] MEDS: DOCUSATE SODIUM 100 MG CAP PO PRN (08:54)
[2021-04-04] MEDS: POLYETHYLENE (MIRALAX) 17 GM PACK PO PRN (08:54)
[2021-04-04] MEDS: POTASSIUM CHLORIDE CRTAB 20 MEQ TABCR PO SCH ×2 (08:54→20:18)
[2021-04-04] MEDS: dexAMETHasone 8 MG in SYRINGE 0 ML IV SCH (08:55)
[2021-04-04] MEDS: PANTOprazole 40 MG TAB PO SCH (08:55)
[2021-04-04] MEDS: APIXABAN 5 MG TABLET PO SCH ×2 (08:55→20:18)
[2021-04-04] MEDS: BUMETANIDE 4 MG in SYRINGE 0 ML IV SCH ×2 (08:55→17:03)
[2021-04-04] MEDS: CALCIUM 600MG + VIT D 400 IU TAB PO SCH ×2 (08:55→20:18)
[2021-04-04] MEDS: CYANOCOBALAMIN 500 MCG TABLET (VITAMIN B-12) PO SCH (08:55)
[2021-04-04] MEDS: INSULIN GLARGINE SOLOSTAR 100 UNITS/ML 3 ML PEN SC SCH ×2 (08:56→20:18)
[2021-04-04] MEDS: UMECLIDINIUM/VILANTEROL 62.5/25MCG 7 PUFFS/INHALER INH SCH (08:56)
[2021-04-04] MEDS: FLUTICASONE FUROATE 100MCG 14 PUFFS/INHALER INH SCH (08:56)
[2021-04-04] MEDS: METOPROLOL SUCC 50MG EXT REL TAB PO SCH ×2 (08:57→21:34)
[2021-04-04] MEDS: INSULIN ASPART PER UNIT SC SCH ×4 (08:58→20:29)
[2021-04-04] MEDS: TRIAMCINOLONE ACET NASAL SPRAY 10.8ML BTL NAE SCH (09:04)
[2021-04-04] MEDS: MULTIVITAMIN TAB PO SCH (17:03)
--- NOTE | 2021-04-04 17:59 | Hospitalist Progress Note ---
Date of Service April 04, 2021 Assessment & Plan (1) Pneumonia due to COVID-19 virus: Plan: able to stay on high flow 40L 100%, eating and drinking a little more each day, moving his bowels able to have a more meaningful conversation with him about intubation, Finn MORRIS spoke with him as well he does not want intubated, he understands it would not offer him any benefit if he gets into respiratory distress we can make him comfortable currently he is comfortable on high flow and has remained so use CPAP HS working on getting family in to visit him, officially off precautions, just no rooms outside of COVID unit that can support hi flow oxygen at this time over 2 weeks now of needing max high flow and/or CPAP slowly taper dexamethasone completed 5-day course of Remdesivir. completed 7-day course of IV abx in the event of bacterial superinfection. most recent procal negative. last chest xray with extensive infiltrates - likely combo of COVID-19 pneumonia + pulmonary edema, continue Bumex 4mg IV bid (2) Acute on chronic respiratory failure with hypoxia and hypercapnia: Plan: acute component - #1, #3. chronic - COPD. usually on 4 L NC O2 at home. able to stay on 40L and 100% past 6 days, will need CPAP/BIPAP HS (3) Acute on chronic diastolic (congestive) heart failure: Plan: cont IV bumex diuresis had lost 10kg+ of weight but then his diuresis stalled despite 4mg IV BID of bumex. dry weight is uncertain. some records suggest 120kg. cont bumex 4mg IV BID. able to eat and drink for several days now [facility] 03/31 shows stable Cr and K (4) Atrial fibrillation, permanent: Plan: rates acceptable cont metoprolol cont eliquis BID currently on medical status (5) CAD (coronary artery disease): Plan: no ischemic sx's at this time cont statin, BB (6) COPD (chronic obstructive pulmonary disease): Plan: cont bronchodilators, steroids, home inhalers, etc see above (7) HTN (hypertension), benign: Plan: controlled (8) Impaired fasting glucose: Plan: last HbA1C < 6% [id number], because of steroids & TPN, glucoses are running high increased lantus to 15 units BID novolog tightened again sugars stable (9) Morbid obesity: Plan: BMI 45 (10) SHIRA (obstructive sleep apnea): Plan: typically on CPAP at home (11) DVT prophylaxis: Plan: eliquis 5mg BID (12) Hypokalemia: Plan: replaced and resolved Plan: continue CPAP HS and high flow during the day if he is uncomfortable or gets into distress then transition to comfort care main goal is to get family in for a visit he is not getting worse but also not getting better with significant oxygen requirement will need LTAC at this time Admission and Anticipated Discharge Date Admission Date: March 14, 2021 Subjective Patient is awake and alert. He is on significant oxygen requirements however does not appear dyspneic or breathless. Able to tolerate eating well as high flow oxygen at this time Review of Systems Review of Systems: Moderate distress and fatigue no headache, no visual changes no speech or swallowing issues no chest pain, pressure or palpitations Continue shortness of breath, nonproductive cough or wheezes no abdominal pain, nausea or vomiting, no diarrhea no dysuria, hematuria or frequency no focal joint pain or swelling no back pain, CVA tenderness or radicular pain no bruising, bleeding or rashes no focal signs of weakness or numbness or altered sensation no complaints of anxiety or depression.. Physical Exam Physical Exam: The patient appeared mild to moderate respiratory distress Vital signs as documented. Head exam is normocephalic atraumatic Neck is without JVD, thyromegaly, or carotid bruits. Lungs are coarse bilaterally in all lung martínez tachypnea Cardiac exam, Rhythm is regular.. No murmurs, rubs or gallops. Abdominal exam reveals normal bowel sounds, soft non tender, no masses Extremities are nonedematous and both pedal pulses are present Neurologic exam is alert and oriented, no focal loss of strength or sensation Skin is without bruises or rashes Psychologically is without concerns for anxiety or depression.. Results & Data Results & Data ([facility]) Vital Signs (Past 12 Hours) Vital Signs Temp Pulse Resp BP Pulse Ox 04/04/21 15:44 97.7 F 62 20 114/65 89 L 04/04/21 14:12 82 20 91 04/04/21 11:38 91 H 20 92 04/04/21 08:07 84 26 H 93 04/04/21 08:05 71 28 H 95 04/04/21 07:59 97.3 F L 70 20 128/83 95 PG Care Time/CCT Total # of Minutes Spent Total Time Spent with Patient: Total time spent is greater than 50% in coordination of care (as documented) at patient's floor/unit and/or counseling patient: Coding Level of Care Code 67963 Subseq Hosp Care Lvl 2 Diagnoses Pneumonia due to COVID-19 virus U07.1; J12.82 Acute on chronic respiratory failure with hypoxia and hypercapnia J96.21; J96.22 Acute on chronic diastolic (congestive) heart failure I50.33 Atrial fibrillation, permanent I48.21 CAD (coronary artery disease) I25.10 Coronary Disease-Associated Artery/Lesion type: [place] artery [place] vs. transplanted heart: [place] heart Associated angina: without angina COPD (chronic obstructive pulmonary disease) J44.1 COPD type: COPD with acute exacerbation HTN (hypertension), benign I10 Impaired fasting glucose R73.01 Morbid obesity E66.01 SHIRA (obstructive sleep apnea) G47.33 DVT prophylaxis Z29.9 Hypokalemia E87.6 (1) CAD (coronary artery disease) Coronary Disease-Associated Artery/Lesion type: [place] artery [place] vs. transplanted heart: [place] heart Associated angina: without angina Qualified Code(s): I25.10 - Atherosclerotic heart disease of [place] coronary artery without angina pectoris (2) COPD (chronic obstructive pulmonary disease) COPD type: COPD with acute exacerbation Qualified Code(s): J44.1 - Chronic obstructive pulmonary disease with (acute) exacerbation
[2021-04-04] MEDS: ATORVASTATIN 40 MG TAB PO SCH (20:17)
[2021-04-04] MEDS: MELATONIN 3 MG TAB PO PRN (21:34)
[2021-04-05] MEDS: ALBUT/IPRATROP 3MG/0.5MG NEB 3 ML VIAL INH SCH ×2 (06:11→19:23)
[2021-04-05] MEDS: METOPROLOL SUCC 50MG EXT REL TAB PO SCH ×2 (08:34→21:14)
[2021-04-05] MEDS: FERROUS SULFATE 325 MG TAB PO SCH (08:35)
[2021-04-05] MEDS: FLUTICASONE FUROATE 100MCG 14 PUFFS/INHALER INH SCH (08:35)
[2021-04-05] MEDS: OMEGA-3 (PURIFIED FISH OIL) 1 GM CAP PO SCH (08:35)
[2021-04-05] MEDS: CYANOCOBALAMIN 500 MCG TABLET (VITAMIN B-12) PO SCH (08:35)
[2021-04-05] MEDS: BUMETANIDE 4 MG in SYRINGE 0 ML IV SCH ×2 (08:35→17:22)
[2021-04-05] MEDS: dexAMETHasone 6 MG in SYRINGE 0 ML IV SCH (08:35)
[2021-04-05] MEDS: APIXABAN 5 MG TABLET PO SCH ×2 (08:35→21:13)
[2021-04-05] MEDS: POTASSIUM CHLORIDE CRTAB 20 MEQ TABCR PO SCH ×2 (08:35→21:16)
[2021-04-05] MEDS: PANTOprazole 40 MG TAB PO SCH (08:35)
[2021-04-05] MEDS: CALCIUM 600MG + VIT D 400 IU TAB PO SCH ×2 (08:35→21:14)
--- NOTE | 2021-04-05 08:35 | Hospitalist Progress Note ---
Date of Service April 05, 2021 Assessment & Plan (1) Pneumonia due to COVID-19 virus: Plan: able to stay on high flow 40L 100%, eating and drinking, moving his bowels Previous provides confirm he does not want intubated, he understands it would not offer him any benefit if he gets into respiratory distress he wants to be on comfort care. currently remains comfortable on high flow CPAP HS working on getting family in to visit him, officially off precautions, just no rooms outside of COVID unit that can support hi flow oxygen at this time over 2 weeks now of needing max high flow and/or CPAP slowly taper dexamethasone completed 5-day course of Remdesivir. completed 7-day course of IV abx in the event of bacterial superinfection. most recent procal negative. last chest xray with extensive infiltrates - likely combo of COVID-19 pneumonia + pulmonary edema, continue Bumex 4mg IV bid (2) Acute on chronic respiratory failure with hypoxia and hypercapnia: Plan: acute component -now 3 weeks here chronic - COPD. usually on 4 L NC O2 at home. able to stay on 40L and 100%, CPAP/BIPAP HS (3) Acute on chronic diastolic (congestive) heart failure: Plan: cont IV bumex diuresis had lost 10kg+ of weight but then his diuresis stalled despite 4mg IV BID of bumex. dry weight is uncertain. some records suggest 120kg. cont bumex 4mg IV BID. able to eat and drink for several days now [facility] 03/31 shows stable Cr and K (4) Atrial fibrillation, permanent: Plan: rates acceptable cont metoprolol cont eliquis BID currently on medical status (5) CAD (coronary artery disease): Plan: no ischemic sx's at this time cont statin, BB (6) COPD (chronic obstructive pulmonary disease): Plan: cont bronchodilators, steroids, home inhalers, etc see above (7) HTN (hypertension), benign: Plan: controlled (8) Impaired fasting glucose: Plan: last HbA1C < 6% [id number], because of steroids, glucoses had been high increased lantus to 15 units BID now with better glucoses sugars stable (9) Morbid obesity: Plan: BMI 44.4 (10) SHIRA (obstructive sleep apnea): Plan: typically on CPAP at home (11) DVT prophylaxis: Plan: eliquis 5mg BID (12) Hypokalemia: Plan: replaced and resolved Plan: continue CPAP HS and high flow during the day if he is uncomfortable or gets into distress then transition to comfort care main goal is to get family in for a visit he is not getting worse but also not getting better with significant oxygen requirement will need LTAC at this time Admission and Anticipated Discharge Date Admission Date: March 14, 2021 Subjective Patient is awake and alert. He is on significant oxygen requirements however remains without dyspnea or breathlessness. Able to tolerate eating well as high flow oxygen at this time Review of Systems Review of Systems: Moderate distress and fatigue no headache, no visual changes no speech or swallowing issues no chest pain, pressure or palpitations Continue shortness of breath, nonproductive cough or wheezes no abdominal pain, nausea or vomiting, no diarrhea no dysuria, hematuria or frequency no focal joint pain or swelling no back pain, CVA tenderness or radicular pain no bruising, bleeding or rashes no focal signs of weakness or numbness or altered sensation no complaints of anxiety or depression.. Physical Exam Physical Exam: The patient appeared mild to moderate respiratory distress Vital signs as documented. Head exam is normocephalic atraumatic Neck is without JVD, thyromegaly, or carotid bruits. Lungs are coarse bilaterally in all lung martínez tachypnea Cardiac exam, Rhythm is regular.. No murmurs, rubs or gallops. Abdominal exam reveals normal bowel sounds, soft non tender, no masses Extremities are nonedematous and both pedal pulses are present Neurologic exam is alert and oriented, no focal loss of strength or sensation Skin is without bruises or rashes Psychologically is without concerns for anxiety or depression.. Results & Data Results & Data ([facility]) Vital Signs (Past 12 Hours) Vital Signs Temp Pulse Pulse Resp BP BP Pulse Ox 04/05/21 07:14 97.5 F L 81 20 123/71 92 04/05/21 06:12 94 04/05/21 02:45 22 04/05/21 00:00 85 26 H 94 04/04/21 22:53 97.5 F L 85 20 122/78 91 04/04/21 21:32 99 H 99/57 L PG Care Time/CCT Total # of Minutes Spent Total Time Spent with Patient: Total time spent is greater than 50% in coordination of care (as documented) at patient's floor/unit and/or counseling patient: Coding Level of Care Code 51001 Subseq Hosp Care Lvl 2 Diagnoses Pneumonia due to COVID-19 virus U07.1; J12.82 Acute on chronic respiratory failure with hypoxia and hypercapnia J96.21; J96.22 Acute on chronic diastolic (congestive) heart failure I50.33 Atrial fibrillation, permanent I48.21 CAD (coronary artery disease) I25.10 Associated angina: without angina Coronary Disease-Associated Artery/Lesion type: [place] artery [place] vs. transplanted heart: [place] heart COPD (chronic obstructive pulmonary disease) J44.1 COPD type: COPD with acute exacerbation HTN (hypertension), benign I10 Impaired fasting glucose R73.01 Morbid obesity E66.01 SHIRA (obstructive sleep apnea) G47.33 DVT prophylaxis Z29.9 Hypokalemia E87.6 (1) CAD (coronary artery disease) Associated angina: without angina Coronary Disease-Associated Artery/Lesion type: [place] artery [place] vs. transplanted heart: [place] heart Qualified Code(s): I25.10 - Atherosclerotic heart disease of [place] coronary artery without angina pectoris (2) COPD (chronic obstructive pulmonary disease) COPD type: COPD with acute exacerbation Qualified Code(s): J44.1 - Chronic obstructive pulmonary disease with (acute) exacerbation
[2021-04-05] MEDS: UMECLIDINIUM/VILANTEROL 62.5/25MCG 7 PUFFS/INHALER INH SCH (08:36)
[2021-04-05] MEDS: TRIAMCINOLONE ACET NASAL SPRAY 10.8ML BTL NAE SCH (08:36)
[2021-04-05] MEDS: ACETAMINOPHEN 325 MG TAB PO PRN ×4 (08:40→22:49)
[2021-04-05] MEDS: POLYETHYLENE (MIRALAX) 17 GM PACK PO PRN (08:40)
[2021-04-05] MEDS: INSULIN ASPART PER UNIT SC SCH ×4 (08:41→21:12)
[2021-04-05] MEDS: INSULIN GLARGINE SOLOSTAR 100 UNITS/ML 3 ML PEN SC SCH ×2 (08:41→21:12)
[2021-04-05] MEDS: DOCUSATE SODIUM 100 MG CAP PO PRN (08:46)
[2021-04-05] MEDS: MULTIVITAMIN TAB PO SCH (17:22)
[2021-04-05] MEDS: ATORVASTATIN 40 MG TAB PO SCH (21:13)
[2021-04-06] MEDS: BUMETANIDE 4 MG in SYRINGE 0 ML IV SCH ×2 (07:23→16:16)
[2021-04-06] MEDS: ACETAMINOPHEN 325 MG TAB PO PRN ×3 (07:23→19:59)
[2021-04-06] MEDS: DOCUSATE SODIUM 100 MG CAP PO PRN (07:23)
[2021-04-06] MEDS: METOPROLOL SUCC 50MG EXT REL TAB PO SCH ×2 (07:24→20:32)
[2021-04-06] MEDS: APIXABAN 5 MG TABLET PO SCH ×2 (07:25→20:31)
[2021-04-06] MEDS: CALCIUM 600MG + VIT D 400 IU TAB PO SCH ×2 (07:25→20:32)
[2021-04-06] MEDS: CYANOCOBALAMIN 500 MCG TABLET (VITAMIN B-12) PO SCH (07:27)
[2021-04-06] MEDS: PANTOprazole 40 MG TAB PO SCH (07:27)
[2021-04-06] MEDS: OMEGA-3 (PURIFIED FISH OIL) 1 GM CAP PO SCH (07:27)
[2021-04-06] MEDS: dexAMETHasone 6 MG in SYRINGE 0 ML IV SCH (07:29)
[2021-04-06] MEDS: FLUTICASONE FUROATE 100MCG 14 PUFFS/INHALER INH SCH (07:29)
[2021-04-06] MEDS: INSULIN ASPART PER UNIT SC SCH ×4 (07:46→20:32)
[2021-04-06] MEDS: ALBUT/IPRATROP 3MG/0.5MG NEB 3 ML VIAL INH SCH ×2 (07:48→19:55)
[2021-04-06] MEDS: UMECLIDINIUM/VILANTEROL 62.5/25MCG 7 PUFFS/INHALER INH SCH (09:00)
--- NOTE | 2021-04-06 09:11 | Hospitalist Progress Note ---
Date of Service April 06, 2021 Assessment & Plan (1) Pneumonia due to COVID-19 virus: Plan: able to stay on high flow 40L 100%, eating and drinking, moving his bowels Previous providers confirm he does not want intubated, he understands it would not offer him any benefit if he gets into respiratory distress he wants to be on comfort care. currently remains comfortable on high flow and CPAP HS working on getting family in to visit him, officially off precautions, just no rooms outside of COVID unit that can support hi flow oxygen at this time over 2 weeks now of needing max high flow and/or CPAP slowly taper dexamethasone completed 5-day course of Remdesivir. completed 7-day course of IV abx in the event of bacterial superinfection. Repeat labs today with CRP reduced and procalcitonin remains negative (2) Acute on chronic respiratory failure with hypoxia and hypercapnia: Plan: acute component -now 3 weeks here chronic - COPD. usually on 4 L NC O2 at home. able to stay on 40L and 100%, CPAP/BIPAP HS (3) Acute on chronic diastolic (congestive) heart failure: Plan: cont IV bumex diuresis had lost 10kg+ of weight but then his diuresis stalled despite 4mg IV BID of bumex dry weight is uncertain. some records suggest 120kg. Unknown how accurate I&Os are but running a negative balance and weight appears to have decreased cont bumex 4mg IV BID. (4) Atrial fibrillation, permanent: Plan: rates acceptable cont metoprolol cont eliquis BID currently on medical status (5) CAD (coronary artery disease): Plan: no ischemic sx's at this time cont statin, BB (6) COPD (chronic obstructive pulmonary disease): Plan: cont bronchodilators, steroids, home inhalers, etc see above (7) HTN (hypertension), benign: Plan: controlled (8) Impaired fasting glucose: Plan: last HbA1C < 6% [id number], because of steroids, glucoses had been high increased lantus to 15 units BID now with better glucoses (9) Morbid obesity: Plan: BMI 44.4 (10) SHIRA (obstructive sleep apnea): Plan: typically on CPAP at home (11) Hypokalemia: Plan: replaced and resolved Plan: VTE Prophylaxis - Eliquis Diet - T2DM Disposition - continue to med/tele continue CPAP HS and high flow during the day if he is uncomfortable or gets into distress then transition to comfort care main goal is to get family in for a visit he is not getting worse but also not getting better with significant oxygen requirement will need LTAC at this time Admission and Anticipated Discharge Date Admission Date: March 14, 2021 Subjective Stable but critically unwell requiring 100% FiO2. He is unable to hear me well due to high flow oxygen and hearing deficit despite hearing aids in. He denies any new issues. No new issues reported by nursing staff. Eating well. Just about to have a bowel movement when seen. Review of Systems Review of Systems: All systems reviewed & are unremarkable except as noted in HPI & below Physical Exam Constitutional: + not well nourished Eyes: + anicteric sclerae; normal pupil size ENMT: external ear and nose normal, oropharynx normal Respiratory: + retractions, + uses accessory muscles and able to speak in complete sentences Auscultation: + crackles (mid zone posteriorly); no wheezes Cardiovascular: Rate/Rhythm: regular rate and + irregularly irregular Heart Sounds: no murmur Extremities: no calf tenderness Gastrointestinal (Abdomen): Inspection/Auscultation: normal bowel sounds Percussion/Palpation: abdomen soft; abdomen nontender Skin: no rashes, warm and dry Neurologic: moves all extremities and awake; not confused Psychiatric: Orientation: alert Results & Data Results & Data ([facility]) Vital Signs (Past 12 Hours) Vital Signs Temp Pulse Resp BP Pulse Ox 04/06/21 07:49 84 18 92 04/06/21 07:33 36.6 C 82 20 106/72 92 04/06/21 00:08 26 H 94 04/05/21 22:31 36.6 C 88 20 113/67 92 PG Care Time/CCT Total # of Minutes Spent Total Time Spent with Patient: Total time spent is greater than 50% in coordination of care (as documented) at patient's floor/unit and/or counseling patient: Coding Level of Care Code 20916 Subseq Hosp Care Lvl 2 Diagnoses Pneumonia due to COVID-19 virus U07.1; J12.82 Acute on chronic respiratory failure with hypoxia and hypercapnia J96.21; J96.22 Acute on chronic diastolic (congestive) heart failure I50.33 Atrial fibrillation, permanent I48.21 CAD (coronary artery disease) I25.10 Associated angina: without angina Coronary Disease-Associated Artery/Lesion type: [place] artery [place] vs. transplanted heart: [place] heart COPD (chronic obstructive pulmonary disease) J44.1 COPD type: COPD with acute exacerbation HTN (hypertension), benign I10 Impaired fasting glucose R73.01 Morbid obesity E66.01 SHIRA (obstructive sleep apnea) G47.33 Hypokalemia E87.6 (1) CAD (coronary artery disease) Associated angina: without angina Coronary Disease-Associated Artery/Lesion type: [place] artery [place] vs. transplanted heart: [place] heart Qualified Code(s): I25.10 - Atherosclerotic heart disease of [place] coronary artery without angina pectoris (2) COPD (chronic obstructive pulmonary disease) COPD type: COPD with acute exacerbation Qualified Code(s): J44.1 - Chronic obstructive pulmonary disease with (acute) exacerbation
[2021-04-06] MEDS: FERROUS SULFATE 325 MG TAB PO SCH (09:12)
[2021-04-06] MEDS: INSULIN GLARGINE SOLOSTAR 100 UNITS/ML 3 ML PEN SC SCH ×2 (09:13→20:34)
[2021-04-06 09:42] LABS: Basophils # (auto) 0.02 K/uL (0-0.2); Basophils % (auto) 0.1 %; Eosinophils # (auto) 0.39 K/uL (0-0.5); Eosinophils % (auto) 2.5 %; Hematocrit (blood only) 43.4 % (42-52); Hemoglobin 13.8 g/dL (14.0-18.0); Immature Granulocytes # (auto) 0.07 K/uL (0.00-0.02); Immature Granulocytes % (auto) 0.5 %; Lymphocytes # (auto) 1.07 K/uL (1.2-3.4); Mean Corpuscular Hgb Conc 31.8 g/dL (32-36); Mean Corpuscular Volume 100.7 fL (80-100); Monocytes # (auto) 0.28 K/uL (0.11-0.59); Monocytes % (auto) 1.8 %; Neutrophils % (auto) 88.1 %; Nucleated RBC # (auto) 0.03 K/uL (0-0); Nucleated RBC % (auto) 0.2 %; Platelet Count 211 K/uL (130-400); RDW Coefficient of Variation 15.8 % (11.5-14.5); RDW Standard Deviation 58.7 fL (36.4-46.3); Red Blood Count 4.31 M/uL (4.7-6.1); White Blood Count 15.33 K/uL (4.8-10.8)
[2021-04-06 10:28] LABS: Albumin Level 2.3 gm/dl (3.4-5.0); BUN Creatinine Ratio 56.7 (10-20); C Reactive Protein 0.73 mg/dl (0-0.29); Calcium 9.3 mg/dl (8.5-10.1); Creatinine Clr Calc Pharmacy 81.2 ml/min; Est GFR (African American) 85.1 ml/min; Est GFR (Non-African American) 73.4 ml/min; Potassium 4.4 mmol/L (3.5-5.1)
[2021-04-06 10:31] LABS: Albumin Globulin Ratio 0.6 (0.9-2); Bilirubin,Total 0.9 mg/dl (0.2-1); Globulin 4.1 gm/dl (2.5-4.0); Total Protein 6.4 gm/dl (6.4-8.2)
[2021-04-06] MEDS: POTASSIUM CHLORIDE CRTAB 20 MEQ TABCR PO SCH ×2 (10:55→20:34)
[2021-04-06] MEDS: TRIAMCINOLONE ACET NASAL SPRAY 10.8ML BTL NAE SCH (10:55)
[2021-04-06] MEDS: MULTIVITAMIN TAB PO SCH (15:52)
[2021-04-06] MEDS: ATORVASTATIN 40 MG TAB PO SCH (20:31)
[2021-04-06] MEDS: MELATONIN 3 MG TAB PO PRN (20:31)
[2021-04-07] MEDS: ALBUT/IPRATROP 3MG/0.5MG NEB 3 ML VIAL INH SCH ×2 (07:27→20:03)
[2021-04-07] MEDS: ACETAMINOPHEN 325 MG TAB PO PRN ×3 (07:47→20:52)
[2021-04-07] MEDS: METOPROLOL SUCC 50MG EXT REL TAB PO SCH ×2 (07:50→20:54)
[2021-04-07] MEDS: APIXABAN 5 MG TABLET PO SCH ×2 (07:50→20:34)
[2021-04-07] MEDS: CALCIUM 600MG + VIT D 400 IU TAB PO SCH ×2 (07:51→20:33)
[2021-04-07] MEDS: CYANOCOBALAMIN 500 MCG TABLET (VITAMIN B-12) PO SCH (07:51)
[2021-04-07] MEDS: PANTOprazole 40 MG TAB PO SCH (07:52)
[2021-04-07] MEDS: OMEGA-3 (PURIFIED FISH OIL) 1 GM CAP PO SCH (07:52)
[2021-04-07] MEDS: FERROUS SULFATE 325 MG TAB PO SCH (07:53)
[2021-04-07] MEDS: BUMETANIDE 4 MG in SYRINGE 0 ML IV SCH ×2 (07:54→16:48)
[2021-04-07] MEDS: dexAMETHasone 6 MG in SYRINGE 0 ML IV SCH (07:55)
[2021-04-07] MEDS: INSULIN ASPART PER UNIT SC SCH ×5 (07:55→20:38)
[2021-04-07] MEDS: TRIAMCINOLONE ACET NASAL SPRAY 10.8ML BTL NAE SCH (07:57)
[2021-04-07] MEDS: INSULIN GLARGINE SOLOSTAR 100 UNITS/ML 3 ML PEN SC SCH ×2 (08:07→20:35)
[2021-04-07] MEDS: POTASSIUM CHLORIDE CRTAB 20 MEQ TABCR PO SCH ×2 (08:15→20:34)
[2021-04-07] MEDS: FLUTICASONE FUROATE 100MCG 14 PUFFS/INHALER INH SCH (08:15)
[2021-04-07] MEDS: UMECLIDINIUM/VILANTEROL 62.5/25MCG 7 PUFFS/INHALER INH SCH (08:16)
--- NOTE | 2021-04-07 10:55 | Hospitalist Progress Note ---
Date of Service April 07, 2021 Assessment & Plan (1) Pneumonia due to COVID-19 virus: Plan: able to stay on high flow 40L 100%, eating and drinking, moving his bowels Previous providers confirm he does not want intubated, he understands it would not offer him any benefit If he gets into respiratory distress he wants to be on comfort care. currently remains comfortable on high flow and CPAP HS over 2 weeks now of needing max high flow and/or CPAP Discussed with his and started process of transfer to LTAC, I do not feel there is any more optimization of his pulmonary status at this point slowly taper dexamethasone, recommend last day 04/10 completed 5-day course of Remdesivir. completed 7-day course of IV abx in the event of bacterial superinfection. (2) Acute on chronic respiratory failure with hypoxia and hypercapnia: Plan: acute component - now 3 weeks here chronic - COPD usually on 4 L NC O2 at home. able to stay on 40L and 100%, CPAP/BIPAP HS, unlikely able to optimize this any further but will add metolazone and closely monitor Cr as examines euvolemic. (3) Acute on chronic diastolic (congestive) heart failure: Plan: cont IV bumex diuresis had lost 10kg+ of weight but then his diuresis stalled despite 4mg IV BID of bumex dry weight is uncertain. some records suggest 120kg. Unknown how accurate I&Os are but running a negative balance and weight appears to have decreased cont bumex 4mg IV BID, will add metolazone 5mg PO tomorrow and monitor BMP daily, if Cr bumps will have to discontinue. (4) Atrial fibrillation, permanent: Plan: rates acceptable cont metoprolol cont eliquis BID currently on medical status (5) CAD (coronary artery disease): Plan: no ischemic sx's at this time cont Eliquis, statin, BB (6) COPD (chronic obstructive pulmonary disease): Plan: cont bronchodilators, steroids, home inhalers, etc see above (7) HTN (hypertension), benign: Plan: controlled (8) Impaired fasting glucose: Plan: last HbA1C < 6% [id number], because of steroids, glucoses had been high increased lantus to 15 units BID now with better glucoses (9) Morbid obesity: Plan: BMI 44.4 (10) SHIRA (obstructive sleep apnea): Plan: typically on CPAP at home (11) Hypokalemia: Plan: replaced and resolved Plan: VTE Prophylaxis - Eliquis Diet - T2DM Disposition - continue to med/tele continue CPAP HS and high flow during the day if he is uncomfortable or gets into distress then transition to comfort care main goal is to get family in for a visit - unable to visit today due to snowsto rm he is not getting worse but also not getting better with significant oxygen requirement will need LTAC at this time Admission and Anticipated Discharge Date Admission Date: March 14, 2021 Subjective Able to communicate using writing on paper as he is unable to hear me with his hearing aid. No acute concerns or questions. At his new baseline shortness of breath. BM yesterday. Review of Systems Review of Systems: All systems reviewed & are unremarkable except as noted in HPI & below Physical Exam Constitutional: + not well nourished Eyes: + anicteric sclerae; normal pupil size ENMT: external ear and nose normal, oropharynx normal Respiratory: + retractions, + uses accessory muscles and able to speak in complete sentences Auscultation: + crackles (mid zone posteriorly); no wheezes Cardiovascular: Rate/Rhythm: regular rate and + irregularly irregular Heart Sounds: no murmur Extremities: no calf tenderness Gastrointestinal (Abdomen): Inspection/Auscultation: normal bowel sounds Percussion/Palpation: abdomen soft; abdomen nontender Skin: no rashes, warm and dry Neurologic: moves all extremities and awake; not confused Psychiatric: Orientation: alert Results & Data Results & Data ([facility]) Vital Signs (Past 12 Hours) Vital Signs Temp Pulse Pulse Resp BP Pulse Ox 04/07/21 07:31 75 22 92 04/07/21 07:22 36.1 C L 79 20 118/75 90 04/06/21 23:57 88 88 24 93 04/06/21 22:57 36.5 C 85 20 106/73 87 L Laboratory Results Abnormal lab results 04/07/21 04/07/21 04/07/21 Range/Units 07:18 11:24 17:25 POC Glucose 120 H 124 H 146 H (70-99) mg/dl 04/07/21 Range/Units 20:26 POC Glucose 226 H (70-99) mg/dl PG Care Time/CCT Total # of Minutes Spent Total Time Spent with Patient: Total time spent is greater than 50% in coordination of care (as documented) at patient's floor/unit and/or counseling patient: Coding Level of Care Code 81430 Subseq Hosp Care Lvl 2 Diagnoses Pneumonia due to COVID-19 virus U07.1; J12.82 Acute on chronic respiratory failure with hypoxia and hypercapnia J96.21; J96.22 Acute on chronic diastolic (congestive) heart failure I50.33 Atrial fibrillation, permanent I48.21 CAD (coronary artery disease) I25.10 Associated angina: without angina Coronary Disease-Associated Artery/Lesion type: [place] artery [place] vs. transplanted heart: [place] heart COPD (chronic obstructive pulmonary disease) J44.1 COPD type: COPD with acute exacerbation HTN (hypertension), benign I10 Impaired fasting glucose R73.01 Morbid obesity E66.01 SHIRA (obstructive sleep apnea) G47.33 Hypokalemia E87.6 (1) CAD (coronary artery disease) Associated angina: without angina Coronary Disease-Associated Artery/Lesion type: [place] artery [place] vs. transplanted heart: [place] heart Qualified Code(s): I25.10 - Atherosclerotic heart disease of [place] coronary artery without angina pectoris (2) COPD (chronic obstructive pulmonary disease) COPD type: COPD with acute exacerbation Qualified Code(s): J44.1 - Chronic obstructive pulmonary disease with (acute) exacerbation
--- NOTE | 2021-04-07 11:52 | XRay Report ---
XR chest 1V portable CLINICAL HISTORY: persistant severe hypoxia TECHNIQUE: Single frontal radiograph of the chest was obtained. Comparison: Comparison is made to chest one view 03/25/2021 FINDINGS: Exam is limited by underpenetration. Cardiomegaly is noted. There is prominence and cephalization of the vasculature with Kirit B lines seen. Interval worsening of bilateral lower lobe predominant airs pace opacities. There are likely small bilateral pleural effusions. IMPRESSION: 1. Limited exam. Moderate pulmonary edema, stable to increased from prior. 2. Bilateral airspace opacities which may represent atelectasis, pneumonia, aspiration, and/or layer ing effusion. ACT 112: Negative or not required by law. Electronically signed by: Jared Taveras M.D. 04/07/2021 11:51 AM
[2021-04-07] MEDS: MULTIVITAMIN TAB PO SCH (16:47)
[2021-04-07] MEDS: ATORVASTATIN 40 MG TAB PO SCH (20:34)
[2021-04-07] MEDS: MELATONIN 3 MG TAB PO PRN (20:52)
[2021-04-08] MEDS: ALBUT/IPRATROP 3MG/0.5MG NEB 3 ML VIAL INH SCH ×2 (06:09→19:21)
[2021-04-08 06:58] LABS: BUN Creatinine Ratio 69.2 (10-20); Calcium 8.7 mg/dl (8.5-10.1); Est GFR (African American) 101.7 ml/min; Est GFR (Non-African American) 87.7 ml/min; Potassium 4.4 mmol/L (3.5-5.1)
[2021-04-08] MEDS: ACETAMINOPHEN 325 MG TAB PO PRN ×2 (07:19→18:11)
[2021-04-08] MEDS: PANTOprazole 40 MG TAB PO SCH (07:20)
[2021-04-08] MEDS: CYANOCOBALAMIN 500 MCG TABLET (VITAMIN B-12) PO SCH (07:20)
[2021-04-08] MEDS: OMEGA-3 (PURIFIED FISH OIL) 1 GM CAP PO SCH (07:21)
[2021-04-08] MEDS: METOPROLOL SUCC 50MG EXT REL TAB PO SCH ×2 (07:21→20:48)
[2021-04-08] MEDS: FERROUS SULFATE 325 MG TAB PO SCH (07:21)
[2021-04-08] MEDS: APIXABAN 5 MG TABLET PO SCH ×2 (07:23→20:47)
[2021-04-08] MEDS: CALCIUM 600MG + VIT D 400 IU TAB PO SCH ×2 (07:25→20:49)
[2021-04-08] MEDS: metOLazone 5 MG TABLET PO SCH (07:25)
[2021-04-08] MEDS: POTASSIUM CHLORIDE CRTAB 20 MEQ TABCR PO SCH ×2 (07:25→20:51)
--- NOTE | 2021-04-08 07:47 | Hospitalist Progress Note ---
Date of Service April 08, 2021 Assessment & Plan (1) Pneumonia due to COVID-19 virus: Plan: able to stay on high flow 40L 100%, eating and drinking, moving his bowels Previous providers confirm he does not want intubated, he understands it would not offer him any benefit If he gets into respiratory distress he wants to be on comfort care. currently remains comfortable on high flow and CPAP HS over 2 weeks now of needing max high flow and/or CPAP Discussed with his and started process of transfer to LTAC, I do not feel there is any more optimization of his pulmonary status at this point slowly taper dexamethasone, recommend last day 04/10 completed 5-day course of Remdesivir. completed 7-day course of IV abx in the event of bacterial superinfection. (2) Acute on chronic respiratory failure with hypoxia and hypercapnia: Plan: acute component - now 3 weeks here chronic - COPD usually on 4 L NC O2 at home. able to stay on 40L and 100%, CPAP/BIPAP HS, unlikely able to optimize this any further but will add metolazone and closely monitor Cr as examines euvolemic. (3) Acute on chronic diastolic (congestive) heart failure: Plan: cont IV bumex diuresis had lost 10kg+ of weight but then his diuresis stalled despite 4mg IV BID of bumex dry weight is uncertain. some records suggest 120kg. Unknown how accurate I&Os are but running a negative balance and weight appears to have decreased cont bumex 4mg IV BID, adding metolazone 04/08/21 in attempts of improving diuresis and reducing oxygen (4) Atrial fibrillation, permanent: Plan: rates acceptable cont metoprolol cont eliquis BID currently on medical status (5) CAD (coronary artery disease): Plan: no ischemic sx's at this time cont Eliquis, statin, BB (6) COPD (chronic obstructive pulmonary disease): Plan: cont bronchodilators, steroids, home inhalers, etc see above (7) HTN (hypertension), benign: Plan: controlled (8) Impaired fasting glucose: Plan: last HbA1C < 6% [id number], because of steroids, glucoses had been high increased lantus to 15 units BID (9) Morbid obesity: Plan: BMI 44.4 (10) SHIRA (obstructive sleep apnea): Plan: typically on CPAP at home (11) Hypokalemia: Plan: replaced and resolved Plan: VTE Prophylaxis - Eliquis Diet - T2DM Disposition - continue to med/tele continue CPAP HS and high flow during the day if he is uncomfortable or gets into distress then transition to comfort care with significant oxygen requirement will need LTAC at this time Admission and Anticipated Discharge Date Admission Date: March 14, 2021 Subjective pt is able to state he feels ok, eating and going to bathroom, still not new issues but cannot taper oxygen Review of Systems Review of Systems: Moderate distress and fatigue no headache, no visual changes no speech or swallowing issues no chest pain, pressure or palpitations Continue shortness of breath, nonproductive cough or wheezes no abdominal pain, nausea or vomiting, no diarrhea no dysuria, hematuria or frequency no focal joint pain or swelling no back pain, CVA tenderness or radicular pain no bruising, bleeding or rashes no focal signs of weakness or numbness or altered sensation no complaints of anxiety or depression.. Physical Exam Physical Exam: The patient appeared mild to moderate respiratory distress Vital signs as documented. Head exam is normocephalic atraumatic Neck is without JVD, thyromegaly, or carotid bruits. Lungs are coarse bilaterally in all lung martínez tachypnea Cardiac exam, Rhythm is regular.. No murmurs, rubs or gallops. Abdominal exam reveals normal bowel sounds, soft non tender, no masses Extremities are nonedematous and both pedal pulses are present Neurologic exam is alert and oriented, no focal loss of strength or sensation Skin is without bruises or rashes Psychologically is without concerns for anxiety or depression.. Results & Data Results & Data ([facility]) Vital Signs (Past 12 Hours) Vital Signs Temp Pulse Pulse Resp BP Pulse Ox 04/08/21 07:00 98.2 F 73 22 116/72 87 L 04/08/21 06:11 80 22 91 04/08/21 06:09 81 20 90 04/08/21 03:40 88 22 93 04/07/21 23:21 98.1 F 83 18 106/62 90 04/07/21 23:00 88 24 93 04/07/21 20:05 87 24 92 04/07/21 20:03 81 22 90 PG Care Time/CCT Total # of Minutes Spent Total Time Spent with Patient: Total time spent is greater than 50% in coordination of care (as documented) at patient's floor/unit and/or counseling patient: Coding Level of Care Code 28863 Subseq Hosp Care Lvl 2 Diagnoses Pneumonia due to COVID-19 virus U07.1; J12.82 Acute on chronic respiratory failure with hypoxia and hypercapnia J96.21; J96.22 Acute on chronic diastolic (congestive) heart failure I50.33 Atrial fibrillation, permanent I48.21 CAD (coronary artery disease) I25.10 Associated angina: without angina Coronary Disease-Associated Artery/Lesion type: [place] artery [place] vs. transplanted heart: [place] heart COPD (chronic obstructive pulmonary disease) J44.1 COPD type: COPD with acute exacerbation HTN (hypertension), benign I10 Impaired fasting glucose R73.01 Morbid obesity E66.01 SHIRA (obstructive sleep apnea) G47.33 Hypokalemia E87.6 (1) CAD (coronary artery disease) Associated angina: without angina Coronary Disease-Associated Artery/Lesion type: [place] artery [place] vs. transplanted heart: [place] heart Qualified Code(s): I25.10 - Atherosclerotic heart disease of [place] coronary artery with out angina pectoris (2) COPD (chronic obstructive pulmonary disease) COPD type: COPD with acute exacerbation Qualified Code(s): J44.1 - Chronic obstructive pulmonary disease with (acute) exacerbation
[2021-04-08] MEDS: INSULIN GLARGINE SOLOSTAR 100 UNITS/ML 3 ML PEN SC SCH ×2 (09:24→20:47)
[2021-04-08] MEDS: INSULIN ASPART PER UNIT SC SCH ×4 (09:31→20:46)
[2021-04-08] MEDS: dexAMETHasone 6 MG in SYRINGE 0 ML IV SCH (09:33)
[2021-04-08] MEDS: BUMETANIDE 4 MG in SYRINGE 0 ML IV SCH ×2 (09:33→18:11)
[2021-04-08] MEDS: TRIAMCINOLONE ACET NASAL SPRAY 10.8ML BTL NAE SCH (09:34)
[2021-04-08] MEDS: UMECLIDINIUM/VILANTEROL 62.5/25MCG 7 PUFFS/INHALER INH SCH (13:37)
[2021-04-08] MEDS: FLUTICASONE FUROATE 100MCG 14 PUFFS/INHALER INH SCH (13:38)
[2021-04-08] MEDS: MULTIVITAMIN TAB PO SCH (18:10)
[2021-04-08] MEDS: ATORVASTATIN 40 MG TAB PO SCH (20:48)
[2021-04-08] MEDS: MELATONIN 3 MG TAB PO PRN (21:51)
[2021-04-09] MEDS: DOCUSATE SODIUM 100 MG CAP PO PRN (06:01)
[2021-04-09 06:57] LABS: BUN Creatinine Ratio 67.8 (10-20); Calcium 8.5 mg/dl (8.5-10.1); Creatinine Clr Calc Pharmacy 96.5 ml/min; Est GFR (African American) 100.2 ml/min; Est GFR (Non-African American) 86.4 ml/min; Potassium 3.8 mmol/L (3.5-5.1)
[2021-04-09] MEDS: OMEGA-3 (PURIFIED FISH OIL) 1 GM CAP PO SCH (07:42)
[2021-04-09] MEDS: FERROUS SULFATE 325 MG TAB PO SCH (07:42)
[2021-04-09] MEDS: metOLazone 5 MG TABLET PO SCH (07:42)
[2021-04-09] MEDS: CYANOCOBALAMIN 500 MCG TABLET (VITAMIN B-12) PO SCH (07:42)
[2021-04-09] MEDS: METOPROLOL SUCC 50MG EXT REL TAB PO SCH ×2 (07:43→20:49)
[2021-04-09] MEDS: CALCIUM 600MG + VIT D 400 IU TAB PO SCH ×2 (07:43→20:49)
[2021-04-09] MEDS: TRIAMCINOLONE ACET NASAL SPRAY 10.8ML BTL NAE SCH (07:43)
[2021-04-09] MEDS: PANTOprazole 40 MG TAB PO SCH (07:43)
[2021-04-09] MEDS: ACETAMINOPHEN 325 MG TAB PO PRN ×3 (07:43→18:59)
[2021-04-09] MEDS: FLUTICASONE FUROATE 100MCG 14 PUFFS/INHALER INH SCH (07:44)
[2021-04-09] MEDS: UMECLIDINIUM/VILANTEROL 62.5/25MCG 7 PUFFS/INHALER INH SCH (07:44)
[2021-04-09] MEDS: POTASSIUM CHLORIDE CRTAB 20 MEQ TABCR PO SCH ×2 (07:46→20:50)
[2021-04-09] MEDS: dexAMETHasone 6 MG in SYRINGE 0 ML IV SCH (07:47)
[2021-04-09] MEDS: BUMETANIDE 4 MG in SYRINGE 0 ML IV SCH ×2 (07:47→17:20)
[2021-04-09] MEDS: APIXABAN 5 MG TABLET PO SCH ×2 (07:47→20:49)
--- NOTE | 2021-04-09 07:54 | Hospitalist Progress Note ---
Date of Service April 09, 2021 Assessment & Plan (1) Pneumonia due to COVID-19 virus: Plan: able to stay on high flow 40L 100%, eating and drinking, moving his bowels, no new issues at this time determination of disposition is a question currently remains comfortable on high flow and CPAP HS over 2 weeks now of needing max high flow and/or CPAP Discussed with his and started process of transfer to LTAC, I do not feel there is any more optimization of his pulmonary status at this point slowly taper dexamethasone, recommend last day 04/10 completed 5-day course of Remdesivir. completed 7-day course of IV abx in the event of bacterial superinfection. Previous providers confirm he does not want intubated, he understands it would not offer him any benefit If he gets into respiratory distress he wants to be on comfort care. (2) Acute on chronic respiratory failure with hypoxia and hypercapnia: Plan: acute component - now 3 weeks here chronic - COPD usually on 4 L NC O2 at home. able to stay on 40L and 100%, CPAP/BIPAP HS, unlikely able to optimize this any further but will add metolazone and closely monitor Cr as examines euvolemic. (3) Acute on chronic diastolic (congestive) heart failure: Plan: cont IV bumex diuresis had lost 10kg+ of weight but then his diuresis stalled despite 4mg IV BID of bumex dry weight is uncertain. some records suggest 120kg. Unknown how accurate I&Os are but running a negative balance and weight appears to have decreased cont bumex 4mg IV BID, adding metolazone 04/08/21 in attempts of improving diuresis and reducing oxygen (4) Atrial fibrillation, permanent: Plan: rates acceptable cont metoprolol cont eliquis BID currently on medical status (5) CAD (coronary artery disease): Plan: no ischemic sx's at this time cont Eliquis, statin, BB (6) COPD (chronic obstructive pulmonary disease): Plan: cont bronchodilators, steroids, home inhalers, etc see above (7) HTN (hypertension), benign: Plan: controlled (8) Impaired fasting glucose: Plan: last HbA1C < 6% [id number], because of steroids, glucoses had been high increased lantus to 15 units BID (9) Morbid obesity: Plan: BMI 44.4 (10) SHIRA (obstructive sleep apnea): Plan: typically on CPAP at home (11) Hypokalemia: Plan: replaced and resolved Plan: VTE Prophylaxis - Eliquis Diet - T2DM Disposition - continue to med/tele continue CPAP HS and high flow during the day if he is uncomfortable or gets into distress then transition to comfort care with significant oxygen requirement will need LTAC at this time Admission and Anticipated Discharge Date Admission Date: March 14, 2021 Subjective pt is able to state he feels ok, eating and going to bathroom, still not new issues but cannot taper oxygen, Review of Systems Review of Systems: Moderate distress and fatigue no headache, no visual changes no speech or swallowing issues no chest pain, pressure or palpitations Continue shortness of breath, nonproductive cough or wheezes no abdominal pain, nausea or vomiting, no diarrhea no dysuria, hematuria or frequency no focal joint pain or swelling no back pain, CVA tenderness or radicular pain no bruising, bleeding or rashes no focal signs of weakness or numbness or altered sensation no complaints of anxiety or depression.. Physical Exam Physical Exam: The patient appeared mild to moderate respiratory distress Vital signs as documented. Head exam is normocephalic atraumatic Neck is without JVD, thyromegaly, or carotid bruits. Lungs are coarse bilaterally in all lung martínez tachypnea Cardiac exam, Rhythm is regular.. No murmurs, rubs or gallops. Abdominal exam reveals normal bowel sounds, soft non tender, no masses Extremities are nonedematous and both pedal pulses are present Neurologic exam is alert and oriented, no focal loss of strength or sensation Skin is without bruises or rashes Psychologically is without concerns for anxiety or depression.. Results & Data Results & Data ([facility]) Vital Signs (Past 12 Hours) Vital Signs Temp Pulse Pulse Resp BP BP Pulse Ox 04/09/21 06:55 97.9 F 86 18 116/70 90 04/09/21 06:00 86 20 88 L 04/09/21 03:02 98 H 31 H 89 L 04/08/21 21:47 98.4 F 108 H 20 107/75 90 04/08/21 20:42 100 H 134/83 PG Care Time/CCT Total # of Minutes Spent Total Time Spent with Patient: Total time spent is greater than 50% in coordination of care (as documented) at patient's floor/unit and/or counseling patient: Coding Level of Care Code 87016 Subseq Hosp Care Lvl 2 Diagnoses Pneumonia due to COVID-19 virus U07.1; J12.82 Acute on chronic respiratory failure with hypoxia and hypercapnia J96.21; J96.22 Acute on chronic diastolic (congestive) heart failure I50.33 Atrial fibrillation, permanent I48.21 CAD (coronary artery disease) I25.10 Associated angina: without angina Coronary Disease-Associated Artery/Lesion type: [place] artery [place] vs. transplanted heart: [place] heart COPD (chronic obstructive pulmonary disease) J44.1 COPD type: COPD with acute exacerbation HTN (hypertension), benign I10 Impaired fasting glucose R73.01 Morbid obesity E66.01 SHIRA (obstructive sleep apnea) G47.33 Hypokalemia E87.6 (1) CAD (coronary artery disease) Associated angina: without angina Coronary Disease-Associated Artery/Lesion type: [place] artery [place] vs. transplanted heart: [place] heart Qualified Code(s): I25.10 - Atherosclerotic heart disease of [place] coronary artery without angina pectoris (2) COPD (chronic obstructive pulmonary disease) COPD type: COPD with acute exacerbation Qualified Code(s): J44.1 - Chronic obstructive pulmonary disease with (acute) exacerbation
[2021-04-09] MEDS: ALBUT/IPRATROP 3MG/0.5MG NEB 3 ML VIAL INH SCH ×2 (08:38→19:20)
[2021-04-09] MEDS: INSULIN GLARGINE SOLOSTAR 100 UNITS/ML 3 ML PEN SC SCH ×2 (08:54→20:50)
[2021-04-09] MEDS: INSULIN ASPART PER UNIT SC SCH ×4 (08:55→20:50)
[2021-04-09] MEDS: MULTIVITAMIN TAB PO SCH (17:20)
[2021-04-09] MEDS: ATORVASTATIN 40 MG TAB PO SCH (20:49)
[2021-04-09] MEDS: MELATONIN 3 MG TAB PO PRN (21:31)
[2021-04-10] MEDS: ALBUT/IPRATROP 3MG/0.5MG NEB 3 ML VIAL INH SCH ×2 (05:58→19:50)
[2021-04-10 06:34] LABS: BUN Creatinine Ratio 72.5 (10-20); Creatinine Clr Calc Pharmacy 93.2 ml/min; Est GFR (African American) 98.8 ml/min; Est GFR (Non-African American) 85.2 ml/min; Potassium 3.1 mmol/L (3.5-5.1)
[2021-04-10] MEDS ORDERED: POTASSIUM CHLORIDE CRTAB 20 MEQ TABCR PO STA ×2 (08:35→19:50)
[2021-04-10] MEDS: FERROUS SULFATE 325 MG TAB PO SCH (08:51)
[2021-04-10] MEDS: PANTOprazole 40 MG TAB PO SCH (08:51)
[2021-04-10] MEDS: CALCIUM 600MG + VIT D 400 IU TAB PO SCH ×2 (08:51→20:13)
[2021-04-10] MEDS: CYANOCOBALAMIN 500 MCG TABLET (VITAMIN B-12) PO SCH (08:51)
[2021-04-10] MEDS: METOPROLOL SUCC 50MG EXT REL TAB PO SCH ×2 (08:51→20:14)
[2021-04-10] MEDS: metOLazone 5 MG TABLET PO SCH (08:51)
[2021-04-10] MEDS: OMEGA-3 (PURIFIED FISH OIL) 1 GM CAP PO SCH (08:51)
[2021-04-10] MEDS: APIXABAN 5 MG TABLET PO SCH ×2 (08:51→20:14)
[2021-04-10] MEDS: ACETAMINOPHEN 325 MG TAB PO PRN ×3 (08:52→21:48)
[2021-04-10] MEDS: DOCUSATE SODIUM 100 MG CAP PO PRN (08:52)
[2021-04-10] MEDS: UMECLIDINIUM/VILANTEROL 62.5/25MCG 7 PUFFS/INHALER INH SCH (08:52)
[2021-04-10] MEDS: FLUTICASONE FUROATE 100MCG 14 PUFFS/INHALER INH SCH (08:53)
[2021-04-10] MEDS: INSULIN GLARGINE SOLOSTAR 100 UNITS/ML 3 ML PEN SC SCH ×2 (08:53→21:02)
[2021-04-10] MEDS: BUMETANIDE 4 MG in SYRINGE 0 ML IV SCH ×2 (08:53→17:08)
--- NOTE | 2021-04-10 08:55 | Hospitalist Progress Note ---
Date of Service April 10, 2021 Assessment & Plan (1) Pneumonia due to COVID-19 virus: Plan: able to stay on high flow 40L 100%, eating and drinking, moving his bowels, no new issues at this time determination of disposition is a question currently remains comfortable on high flow and CPAP HS over 2 weeks now of needing max high flow and/or CPAP Discussed with his and started process of transfer to LTAC, I do not feel there is any more optimization of his pulmonary status at this point slowly taper dexamethasone, recommend last day 04/10 however had not been taper until today --> decreased to 4mg for today and will plan to decrease by 2mg every other day to completion completed 5-day course of Remdesivir. completed 7-day course of IV abx in the event of bacterial superinfection. 83-88% on HFNC morning 04/10 but no increased respiratory distress. Just decreased to 4mg dexamethasone and plans to taper as above ABG with Ph 7.47, elevated CO2 with elevated HCO3 for attempted compensation --> Asked RT to place on BiPAP for several hours today and asked RN about compliance with BiPAP as RT stated believed patient to be utilizing at night --> Asked RN to ensure patient utilizing at night and with napping during the day to help with CO2 retention --> Also placed on metolazone 5mg daily starting on 04/08 and will hold dose for AM as asked RN to obtain weight, approx 120kg and this appears to be lower that previous stays for CHF with exacerbation. Remains on bumex 4mg IV BID and Cr remains stable Previous providers confirm he does not want intubated, he understands it would not offer him any benefit If he gets into respiratory distress he wants to be on comfort care. Continue to monitor (2) Acute on chronic respiratory failure with hypoxia and hypercapnia: Plan: acute component - now 3 weeks here chronic - COPD usually on 4 L NC O2 at home. able to stay on 40L and 100%, CPAP/BIPAP HS, unlikely able to optimize this any further but will add metolazone and closely monitor Cr as examines euvolemic. --> ABG 04/10 with continued CO2 retention, placed on BiPAP for several hours today and encouraged use at night to prevent worsening hypercapnia Appears close to euvolemic upon exam and will continue the bumex 4mg IV BID but hold metolazone for AM Continue to monitor (3) Acute on chronic diastolic (congestive) heart failure: Plan: cont IV bumex diuresis had lost 10kg+ of weight but then his diuresis stalled despite 4mg IV BID of bumex dry weight is uncertain. some records suggest ~120kg. Unknown how accurate I&Os are but running a negative balance and weight appears to have decreased cont bumex 4mg IV BID, adding metolazone 04/08/21 in attempts of improving diuresis and reducing oxygen Holding further metolazone after AM dose 04/10, Cr stable. Appears euvolemic Electrolyte replacement --> K 3.1 this morning and ordered additional 40meq to his 20meq PO BID scheduled given metolazone and worsening electrolyte imbalances Wt by RN 120.3kg currently (4) Atrial fibrillation, permanent: Plan: rates acceptable cont metoprolol cont eliquis BID currently on medical status (5) CAD (coronary artery disease): Plan: no ischemic sx's at this time cont Eliquis, statin, BB (6) COPD (chronic obstructive pulmonary disease): Plan: cont bronchodilators, steroids, home inhalers, etc see above (7) HTN (hypertension), benign: Plan: controlled (8) Impaired fasting glucose: Plan: last HbA1C < 6% [id number], because of steroids, glucoses had been high increased lantus to 15 units BID BSGs stable decreased steroids and will need continued adjustments if dropping too low (9) Morbid obesity: Plan: BMI 44.4 (10) SHIRA (obstructive sleep apnea): Plan: typically on CPAP at home --> To utilize BiPAP HS as above, encouraged compliance BiPAP placed currently for hypercapneic resp failure (11) Hypokalemia: Plan: replaced and resolved however again low -- likely from metolazone use Additional replacement 40meq on top of the 20meq BID PO scheduled BMP this afternoon vs AM Plan: VTE Prophylaxis - Eliquis Diet - T2DM continue CPAP/BiPAP HS and high flow during the day (BiPAP today) if he is uncomfortable or gets into distress then transition to comfort care with significant oxygen requirement will need LTAC at this time --> CM following Admission and Anticipated Discharge Date Admission Date: March 14, 2021 Supervising Physician Co-Signing Physician Notes Attending Attestation: Chart reviewed in detail, care plan d/w PA Beth Momin. I agree w/ the blancas components of her documentation. 75yo male - well known to me from earlier in his admission - with ongoing severe acute/chronic hypercarbic/hypoxic respiratory failure. Combination of severe COVID-19 pneumonia and acute/chronic diastolic CHF. Despite aggressive treatment of both issues he remains on max HFNC and BIPAP, alternating between the two. At baseline he has severe O2-dependent COPD. Prognosis remains very, very poor given how long he has been hospitalized and given the lack of any significant improvement with his respiratory support/O2 support. Cont to refine goals of care. Agree w/ plan for diuretics as outlined by Ms Momin. Avila Abraham MD Subjective Patient evaluated this morning. doing alright breathing stable -- used incentive spirometer with nursing this morning to about 750cc on triflow. O2 sat 88-89%, currently 90% on 40L HFNC but discussed CO2 retention and asked RT to place back on BiPAP for couple of hours this afternoon. Patient denies any fever, chills, no chest pain, reflux, abdominal pain, . Eating/drinking no issues. Moved bowels yesterday but not moved anything yet today and states he may need bedpan here shortly. Review of Systems Review of Systems: All systems reviewed & are unremarkable except as noted in HPI & below Physical Exam Physical Exam: WD, WN chronically ill appearing male, no acute distress, laying in hospital bed getting a nebulizer treatment Eyes anicteric, pupils equal and reactive bandage to bridge of nose from prior skin breakdown from BiPAP mask hard of hearing -- with ear plugs in Trachea midline without deviation Lungs: tachypneic (RR 28), no audible wheezing, on HFNC 40L/min SpO2 90%, coarse breath sounds bilaterally, diminished in the bases CV: RRR, no m/r/g, venous stasis changes to b/l LE, no calf edema, pulses palpable GI: +BS, distended/soft, non-tender no guarding or rebound : raphael draining clear yellow urine Skin: chronic venous stasis changes with decreased edema b/l LE from prior diuresis Neuro/Psych: AOx3, cooperative, CN intact, moves all extremities Results & Data Results & Data ([facility]) Vital Signs (Past 12 Hours) Vital Signs Temp Pulse Pulse Resp BP BP Pulse Ox 04/10/21 07:12 36.5 C 81 18 109/69 83 L 04/10/21 05:58 96 H 20 90 04/10/21 03:59 90 28 H 92 04/09/21 23:33 36.4 C L 88 18 110/72 89 L Laboratory Results 04/10/21 04/10/21 04/10/21 Range/Units 09:55 09:45 08:25 ABG pH 7.47 H (7.35-7.45) ABG pCO2 54 H (35-46) mmHg ABG pO2 70 L (80-95) mmHg ABG HCO3 38 H (19-24) mmol/L ABG O2 Saturation 94.7 (90-95) % ABG Base Excess 12.2 H (-9-1.8) mEq/L Speedy Test Pos (Pos) Barometric Pressure 737.4 mm/Hg Oxygen Given 40% Sodium (136-145) mmol/L Potassium (3.5-5.1) mmol/L Chloride (98-107) mmol/L Carbon Dioxide (21-32) mmol/L Anion Gap (3-11) BUN (7-18) mg/dl Creatinine (0.6-1.4) mg/dl Est Cr Clr Drug Dosing ml/min Est GFR ( Amer) ml/min Est GFR (Non-Af Amer) ml/min BUN/Creatinine Ratio (10-20) Glucose (70-99) mg/dl POC Glucose 108 H (70-99) mg/dl Calcium (8.5-10.1) mg/dl Magnesium Iron Ferritin Vitamin B12 Pending Folate Pending 04/10/21 04/10/21 04/09/21 Range/Units 05:50 05:50 20:36 ABG pH (7.35-7.45) ABG pCO2 (35-46) mmHg ABG pO2 (80-95) mmHg ABG HCO3 (19-24) mmol/L ABG O2 Saturation (90-95) % ABG Base Excess (-9-1.8) mEq/L Speedy Test (Pos) Barometric Pressure mm/Hg Oxygen Given Sodium 141 (136-145) mmol/L Potassium 3.1 L D (3.5-5.1) mmol/L Chloride 94 L (98-107) mmol/L Carbon Dioxide 41 H* (21-32) mmol/L Anion Gap 5.0 (3-11) BUN 64 H (7-18) mg/dl Creatinine 0.88 (0.6-1.4) mg/dl Est Cr Clr Drug Dosing 93.2 ml/min Est GFR ( Amer) 98.8 ml/min Est GFR (Non-Af Amer) 85.2 ml/min BUN/Creatinine Ratio 72.5 H (10-20) Glucose 87 (70-99) mg/dl POC Glucose 244 H (70-99) mg/dl Calcium 9.0 (8.5-10.1) mg/dl Magnesium Pending Iron Pending Ferritin Pending Vitamin B12 Folate 04/09/21 04/09/21 Range/Units 17:10 12:26 ABG pH (7.35-7.45) ABG pCO2 (35-46) mmHg ABG pO2 (80-95) mmHg ABG HCO3 (19-24) mmol/L ABG O2 Saturation (90-95) % ABG Base Excess (-9-1.8) mEq/L Speedy Test (Pos) Barometric Pressure mm/Hg Oxygen Given Sodium (136-145) mmol/L Potassium (3.5-5.1) mmol/L Chloride (98-107) mmol/L Carbon Dioxide (21-32) mmol/L Anion Gap (3-11) BUN (7-18) mg/dl Creatinine (0.6-1.4) mg/dl Est Cr Clr Drug Dosing ml/min Est GFR ( Amer) ml/min Est GFR (Non-Af Amer) ml/min BUN/Creatinine Ratio (10-20) Glucose (70-99) mg/dl POC Glucose 121 H 128 H (70-99) mg/dl Calcium (8.5-10.1) mg/dl Magnesium Iron Ferritin Vitamin B12 Folate PG Care Time/CCT Total # of Minutes Spent Total Time Spent with Patient: Total time spent is greater than 50% in coordination of care (as documented) at patient's floor/unit and/or counseling patient: Coding Level of Care Code 47353 Subseq Hosp Care Lvl 3 Diagnoses Pneumonia due to COVID-19 virus U07.1; J12.82 Acute on chronic respiratory failure with hypoxia and hypercapnia J96.21; J96.22 Acute on chronic diastolic (congestive) heart failure I50.33 Atrial fibrillation, permanent I48.21 CAD (coronary artery disease) I25.10 Associated angina: without angina Coronary Disease-Associated Artery/Lesion type: [place] artery [place] vs. transplanted heart: [place] heart COPD (chronic obstructive pulmonary disease) J44.1 COPD type: COPD with acute exacerbation HTN (hypertension), benign I10 Impaired fasting glucose R73.01 Morbid obesity E66.01 SHIRA (obstructive sleep apnea) G47.33 Hypokalemia E87.6 (1) CAD (coronary artery disease) Associated angina: without angina Coronary Disease-Associated Artery/Lesion type: [place] artery [place] vs. transplanted heart: [place] heart Qualified Code(s): I25.10 - Atherosclerotic heart disease of [place] coronary artery without angina pectoris (2) COPD (chronic obstructive pulmonary disease) COPD type: COPD with acute exacerbation Qualified Code(s): J44.1 - Chronic obstructive pulmonary disease with (acute) exacerbation
[2021-04-10] MEDS: TRIAMCINOLONE ACET NASAL SPRAY 10.8ML BTL NAE SCH (08:56)
[2021-04-10] MEDS: INSULIN ASPART PER UNIT SC SCH ×4 (09:01→21:00)
[2021-04-10] MEDS: POTASSIUM CHLORIDE CRTAB 20 MEQ TABCR PO SCH ×2 (09:10→21:42)
[2021-04-10 10:07] LABS: Base Excess ABG 12.2 mEq/L (-9-1.8); HCO3 ABG 38 mmol/L (19-24); Oxygen Saturation ABG 94.7 % (90-95); PCO2 ABG 54 mmHg (35-46); PO2 ABG 70 mmHg (80-95); pH ABG 7.47 (7.35-7.45)
[2021-04-10 10:55] LABS: Allen Test Pos (Pos)
[2021-04-10] MEDS: ALBUT/IPRATROP 3MG/0.5MG NEB 3 ML VIAL NEB PRN (11:08)
[2021-04-10] MEDS: dexAMETHasone 4 MG in SYRINGE 0 ML IV SCH (11:25)
[2021-04-10 13:03] LABS: Ferritin 168.2 ng/ml (8-388); Magnesium 2.8 mg/dl (1.8-2.4)
[2021-04-10 15:34] LABS: Vitamin B12 > 2000 pg/ml (193-986)
[2021-04-10 16:32] LABS: BUN Creatinine Ratio 64.5 (10-20); Calcium 8.9 mg/dl (8.5-10.1); Est GFR (African American) 88.3 ml/min; Est GFR (Non-African American) 76.2 ml/min; Potassium 3.4 mmol/L (3.5-5.1)
[2021-04-10] MEDS: MULTIVITAMIN TAB PO SCH (17:08)
[2021-04-10] MEDS: ATORVASTATIN 40 MG TAB PO SCH (20:14)
[2021-04-11] MEDS: ALBUT/IPRATROP 3MG/0.5MG NEB 3 ML VIAL INH SCH ×2 (07:15→20:01)
--- NOTE | 2021-04-11 07:57 | Hospitalist Progress Note ---
Date of Service April 11, 2021 Assessment & Plan (1) Pneumonia due to COVID-19 virus: Plan: able to stay on high flow 40L 100%, eating and drinking, moving his bowels, no new issues at this time determination of disposition is a question currently remains comfortable on high flow and CPAP HS -- utilizing BiPAP at night/during the day 04/10, 04/11 for elevated CO2, confirmed on ABG completed 5-day course of Remdesivir. completed 7-day course of IV abx in the event of bacterial superinfection. over 2 weeks now of needing max high flow and/or CPAP Discussed with his and started process of transfer to LTAC, I do not feel there is any more optimization of his pulmonary status at this point slowly taper dexamethasone, recommend last day 04/10 however had not been taper until 04/10 and was decreased to 4mg --> Continue 4mg IV daily for 04/12, then decrease to 2mg x 2 days, 1mg x 2 days, then stop to complete course Diuresis for pulm edema/CHF --> Metolazone started 5mg on 04/08, 04/09, 04/10, initially held for this AM but discussed with Sara Kahn and continued for now (already on bumex 4mg IV BID) --> Electrolyte replacement/frequent monitoring --> Potassium 40meq extra x 2 on 04/10, additional 40meq AM 04/11 for K 3.1 and changed scheduled supplementation to 20meq TID (prior 20meq BID) and monitor --> Diuresis for 1.9L 04/08, 2.2L 04/09, 3.2L 04/10 Repeat CXR with interval improvement of bilateral airspace opacities and pulmonary edema with only mild central vascular congestion and small left pleural effusion present. Currently 95% on 40L HFNC --> Titrate to maintain O2 sat 92% or >. Asked RN to check with RT next assessment about weaning/tolerance as LTAC unable to take unless 60% FiO2 or less but they are able to accommodate 30-40L/min HFNC Previous providers confirm he does not want intubated, he understands it would not offer him any benefit If he gets into respiratory distress he wants to be on comfort care. Continue to monitor (2) Acute on chronic respiratory failure with hypoxia and hypercapnia: Plan: acute component - now 3 weeks here, with acute on chronic diastolic CHF chronic - COPD usually on 4 L NC O2 at home. able to stay on 40L and 100%, CPAP/BIPAP HS, unlikely able to optimize this any further but will add metolazone and closely monitor Cr as examines euvolemic. --> ABG 04/10 with continued CO2 retention, placed on BiPAP for several hours and encouraged use at night to prevent worsening hypercapnia, again placed on AM 04/11 for similar hypercapneic CXR improvement in edema Continue metolazone, bumex and monitor/replacement of electrolytes as needed Diuresis for 1.9L 04/08, 2.2L 04/09, 3.2L 04/10 Cr remains stable at this time. ?Diamox for CO2 retention to assist with diuresis if above not helpful for improvement Still slightly volume up due to steroid use --> weaning as above and hopefully will be able to stop metolazone in next 2-3 days pending labs/kidney function Continue to monitor (3) Acute on chronic diastolic (congestive) heart failure: Plan: cont IV bumex diuresis had lost 10kg+ of weight but then his diuresis stalled despite 4mg IV BID of bumex dry weight is uncertain. some records suggest ~120kg. Unknown how accurate I&Os are but running a negative balance and weight appears to have decreased cont bumex 4mg IV BID, added metolazone 04/08/21 in attempts of improving diuresis and reducing oxygen needed Continue bumex, metolazone for now. Cr stable Electrolyte replacement as above Continue to monitor I&O, weights, labs-- ~120.3kg on 04/10 (4) Atrial fibrillation, permanent: Plan: rates acceptable cont metoprolol cont eliquis BID currently on medical status (5) CAD (coronary artery disease): Plan: no ischemic sx's at this time cont Eliquis, statin, BB (6) COPD (chronic obstructive pulmonary disease): Plan: cont bronchodilators, steroids, home inhalers, etc see above (7) HTN (hypertension), benign: Plan: controlled (8) Impaired fasting glucose: Plan: last HbA1C < 6% [id number], because of steroids, glucoses had been high increased lantus to 15 units BID BSGs stable decreased steroids and will need continued adjustments if dropping too low --> monitor as BSGs are trending down, suspect decreased needs tomorrow (9) Morbid obesity: Plan: BMI 44.4 (10) SHIRA (obstructive sleep apnea): Plan: typically on CPAP at home --> To utilize BiPAP HS as above, encouraged compliance BiPAP placed currently for hypercapneic resp failure (11) Hypokalemia: Plan: replaced and resolved however again low -- likely from metolazone use Additional replacement 40meq on top of the 20meq BID PO scheduled on 04/10 Addition K evening 04/11 with hypokalemia on repeat K 3.1 this AM, ordered 40meq x 1 in addition 20BID scheduled and increased scheduled to 20meq TID for now and monitor labs this afternoon Plan: VTE Prophylaxis * Eliquis continue CPAP/BiPAP HS and high flow during the day (BiPAP today) if he is uncomfortable or gets into distress then transition to comfort care with significant oxygen requirement will need LTAC at this time --> CM following Diuresis as above, titration of O2 as needed Monitor labs/electrolyte replacement Admission and Anticipated Discharge Date Admission Date: March 14, 2021 Supervising Physician Co-Signing Physician Notes Attending Attestation: Chart reviewed in detail, care plan d/w ALEXANDRA Momin. I agree w/ the blancas components of her documentation. 75yo male with refractory/severe acute/chronic hypercarbic/hypoxic respiratory failure. Combination of severe COVID-19 pneumonia and acute/chronic diastolic CHF. Remains on max HFNC and BIPAP, alternating between the two, with latter typically at night. No significant improvement over last several days despite attempts at aggressive diuresis. May need to consider diamox given his contraction alkalosis. Avila Abraham MD Subjective patient evaluated this morning on BiPAP, tolerating without issue. elevated CO2 this morning discussed with CHF clinic provider and rec to continue to push metolazone, likely dry weight less than 120kg given recent illness and would continue while Cr stable. Continuing to titrate dexamethasone to competition but would not want to abruptly stop. Patient reports breathing stable -- discussed requirements for LTAC and will plan to update later today, who plans on visiting tomorrow. No fever, chills, sputum production, abdominal pain, nausea or vomiting. +BM yesterday, got cleaned up by nursing this morning. Worked with therapy but no report how it went just yet. No issues reported. Questions/concerns addressed at this time. Updated Rosa via phone this afternoon. Plans to visit tomorrow. Would ideally like [facility]. Discussed stipulations. Review of Systems Review of Systems: All systems reviewed & are unremarkable except as noted in HPI & below Physical Exam Physical Exam: WD, WN chronically ill appearing male, no acute distress, laying in hospital bed sleeping with BiPAP in place Eyes anicteric, pupils equal and reactive bandage to bridge of nose from prior skin breakdown from BiPAP mask hard of hearing -- with ear plugs in (removed for discussion) Trachea midline without deviation Lungs: tachypneic (RR 26), no audible wheezing (decreased end exp wheezing), on HFNC 40L/min SpO2 95%, coarse breath sounds bilaterally, diminished in the bases CV: irregularly irregular, no m/r/g, venous stasis changes to b/l LE, no calf edema, pulses palpable GI: +BS, soft, non-tender no guarding or rebound : raphael draining clear yellow urine Skin: chronic venous stasis changes with decreased edema b/l LE from prior diuresis Neuro/Psych: AOx3, cooperative, CN intact, moves all extremities Results & Data Results & Data ([facility]) Vital Signs (Past 12 Hours) Vital Signs Temp Pulse Pulse Resp BP Pulse Ox 04/11/21 07:18 93 H 20 92 04/11/21 07:05 36.5 C 87 18 130/84 92 04/11/21 02:56 77 23 94 04/10/21 23:06 87 24 91 04/10/21 23:05 87 22 92 04/10/21 21:52 36.7 C 92 H 20 107/70 88 L Laboratory Results 04/11/21 04/11/21 04/10/21 Range/Units 08:07 07:43 20:37 ABG pH (7.35-7.45) ABG pCO2 (35-46) mmHg ABG pO2 (80-95) mmHg ABG HCO3 (19-24) mmol/L ABG O2 Saturation (90-95) % ABG Base Excess (-9-1.8) mEq/L Speedy Test (Pos) Barometric Pressure mm/Hg Oxygen Given Sodium 139 (136-145) mmol/L Potassium 3.1 L (3.5-5.1) mmol/L Chloride 93 L (98-107) mmol/L Carbon Dioxide 42 H* (21-32) mmol/L Anion Gap 5.0 (3-11) BUN 67 H (7-18) mg/dl Creatinine 0.91 (0.6-1.4) mg/dl Est Cr Clr Drug Dosing 88.4 ml/min Est GFR ( Amer) 96.6 ml/min Est GFR (Non-Af Amer) 83.3 ml/min BUN/Creatinine Ratio 73.8 H (10-20) Glucose 88 (70-99) mg/dl POC Glucose 90 166 H (70-99) mg/dl Calcium 8.6 (8.5-10.1) mg/dl Magnesium (1.8-2.4) mg/dl Iron (35-175) mcg/dl Ferritin (8-388) ng/ml Vitamin B12 (193-986) pg/ml Folate (>5.38) ng/ml 04/10/21 04/10/21 04/10/21 Range/Units 17:09 15:54 12:17 ABG pH (7.35-7.45) ABG pCO2 (35-46) mmHg ABG pO2 (80-95) mmHg ABG HCO3 (19-24) mmol/L ABG O2 Saturation (90-95) % ABG Base Excess (-9-1.8) mEq/L Speedy Test (Pos) Barometric Pressure mm/Hg Oxygen Given Sodium 136 (136-145) mmol/L Potassium 3.4 L (3.5-5.1) mmol/L Chloride 92 L (98-107) mmol/L Carbon Dioxide 40 H (21-32) mmol/L Anion Gap 4.0 (3-11) BUN 63 H (7-18) mg/dl Creatinine 0.98 (0.6-1.4) mg/dl Est Cr Clr Drug Dosing 82.0 ml/min Est GFR ( Amer) 88.3 ml/min Est GFR (Non-Af Amer) 76.2 ml/min BUN/Creatinine Ratio 64.5 H (10-20) Glucose 135 H (70-99) mg/dl POC Glucose 138 H 116 H (70-99) mg/dl Calcium 8.9 (8.5-10.1) mg/dl Magnesium (1.8-2.4) mg/dl Iron (35-175) mcg/dl Ferritin (8-388) ng/ml Vitamin B12 (193-986) pg/ml Folate (>5.38) ng/ml 04/10/21 04/10/21 04/10/21 Range/Units 09:55 09:45 05:50 ABG pH 7.47 H (7.35-7.45) ABG pCO2 54 H (35-46) mmHg ABG pO2 70 L (80-95) mmHg ABG HCO3 38 H (19-24) mmol/L ABG O2 Saturation 94.7 (90-95) % ABG Base Excess 12.2 H (-9-1.8) mEq/L Speedy Test Pos (Pos) Barometric Pressure 737.4 mm/Hg Oxygen Given 40% Sodium (136-145) mmol/L Potassium (3.5-5.1) mmol/L Chloride (98-107) mmol/L Carbon Dioxide (21-32) mmol/L Anion Gap (3-11) BUN (7-18) mg/dl Creatinine (0.6-1.4) mg/dl Est Cr Clr Drug Dosing ml/min Est GFR ( Amer) ml/min Est GFR (Non-Af Amer) ml/min BUN/Creatinine Ratio (10-20) Glucose (70-99) mg/dl POC Glucose (70-99) mg/dl Calcium (8.5-10.1) mg/dl Magnesium 2.8 H (1.8-2.4) mg/dl Iron 104 (35-175) mcg/dl Ferritin 168.2 (8-388) ng/ml Vitamin B12 > 2000 H (193-986) pg/ml Folate 18.90 (>5.38) ng/ml Diagnostic Findings Chest X-Ray 04/11/21 08:49 XR chest 1V portable CLINICAL HISTORY: Follow-up bilateral airspace opacities and pulmonary edema. COMPARISON STUDY: 04/07/2021 TECHNIQUE: 1 view of the chest FINDINGS: Single frontal view of the chest demonstrates the heart to again be enlarged. Compared to the previous examination, there has been significant resolution of pulmonary edema with only mild central vascular congestion remains present. There is blunting of left costophrenic angle characteristic of a small left pleural effusion. There is interval decrease in alveolar opacities. There is no acute osseous pathology. IMPRESSION: Interval improvement of bilateral airspace opacities and pulmonary edema with only mild central vascular congestion and small left pleural effusion present. ACT 112: Negative or not required by law. Electronically signed by: Myles Long M.D. 04/11/2021 10:32 AM PG Care Time/CCT Total # of Minutes Spent Total Time Spent with Patient: Total time spent is greater than 50% in coordination of care (as documented) at patient's floor/unit and/or counseling patient: Coding Level of Care Code 86174 Subseq Hosp Care Lvl 3 Diagnoses Pneumonia due to COVID-19 virus U07.1; J12.82 Acute on chronic respiratory failure with hypoxia and hypercapnia J96.21; J96.22 Acute on chronic diastolic (congestive) heart failure I50.33 Atrial fibrillation, permanent I48.21 CAD (coronary artery disease) I25.10 Associated angina: without angina Coronary Disease-Associated Artery/Lesion type: robinson artery [place] vs. transplanted heart: robinson heart COPD (chronic obstructive pulmonary disease) J44.1 COPD type: COPD with acute exacerbation HTN (hypertension), benign I10 Impaired fasting glucose R73.01 Morbid obesity E66.01 SHIRA (obstructive sleep apnea) G47.33 Hypokalemia E87.6 (1) CAD (coronary artery disease) Associated angina: without angina Coronary Disease-Associated Artery/Lesion type: robinson artery [place] vs. transplanted heart: robinson heart Qualified Code(s): I25.10 - Atherosclerotic heart disease of robinson coronary artery without angina pectoris (2) COPD (chronic obstructive pulmonary disease) COPD type: COPD with acute exacerbation Qualified Code(s): J44.1 - Chronic obstructive pulmonary disease with (acute) exacerbation
[2021-04-11] MEDS: INSULIN ASPART PER UNIT SC SCH ×4 (08:22→20:46)
[2021-04-11] MEDS: INSULIN GLARGINE SOLOSTAR 100 UNITS/ML 3 ML PEN SC SCH ×2 (08:23→20:46)
[2021-04-11] MEDS: UMECLIDINIUM/VILANTEROL 62.5/25MCG 7 PUFFS/INHALER INH SCH (08:26)
[2021-04-11] MEDS: FLUTICASONE FUROATE 100MCG 14 PUFFS/INHALER INH SCH (08:26)
[2021-04-11] MEDS: CYANOCOBALAMIN 500 MCG TABLET (VITAMIN B-12) PO SCH (08:27)
[2021-04-11] MEDS: PANTOprazole 40 MG TAB PO SCH (08:27)
[2021-04-11] MEDS: POTASSIUM CHLORIDE CRTAB 20 MEQ TABCR PO SCH ×3 (08:27→20:32)
[2021-04-11] MEDS: FERROUS SULFATE 325 MG TAB PO SCH (08:27)
[2021-04-11] MEDS: METOPROLOL SUCC 50MG EXT REL TAB PO SCH ×2 (08:27→20:33)
[2021-04-11] MEDS: CALCIUM 600MG + VIT D 400 IU TAB PO SCH ×2 (08:27→20:32)
[2021-04-11] MEDS: OMEGA-3 (PURIFIED FISH OIL) 1 GM CAP PO SCH (08:27)
[2021-04-11] MEDS: DOCUSATE SODIUM 100 MG CAP PO PRN (08:27)
[2021-04-11] MEDS: BUMETANIDE 4 MG in SYRINGE 0 ML IV SCH ×2 (08:28→17:37)
[2021-04-11] MEDS: ACETAMINOPHEN 325 MG TAB PO PRN ×2 (08:28→17:34)
[2021-04-11] MEDS: dexAMETHasone 4 MG in SYRINGE 0 ML IV SCH (08:28)
[2021-04-11] MEDS: APIXABAN 5 MG TABLET PO SCH ×2 (08:28→20:32)
[2021-04-11] MEDS: TRIAMCINOLONE ACET NASAL SPRAY 10.8ML BTL NAE SCH (08:28)
[2021-04-11 08:51] LABS: BUN Creatinine Ratio 73.8 (10-20); Calcium 8.6 mg/dl (8.5-10.1); Creatinine Clr Calc Pharmacy 88.4 ml/min; Est GFR (African American) 96.6 ml/min; Est GFR (Non-African American) 83.3 ml/min; Potassium 3.1 mmol/L (3.5-5.1)
[2021-04-11] MEDS ORDERED: POTASSIUM CHLORIDE CRTAB 20 MEQ TABCR PO STA (09:01)
--- NOTE | 2021-04-11 10:33 | XRay Report ---
XR chest 1V portable CLINICAL HISTORY: Follow-up bilateral airspace opacities and pulmonary edema. COMPARISON STUDY: 04/07/2021 TECHNIQUE: 1 view of the chest FINDINGS: Single frontal view of the chest demonstrates the heart to again be enlarged. Compared to the previou s examination, there has been significant resolution of pulmonary edema with only mild central vascul ar congestion remains present. There is blunting of left costophrenic angle characteristic of a small left pleural effusion. There is interval decrease in alveolar opacities. There is no acute osseous p athology. IMPRESSION: Interval improvement of bilateral airspace opacities and pulmonary edema with only mild c entral vascular congestion and small left pleural effusion present. ACT 112: Negative or not required by law. Electronically signed by: Myles Long M.D. 04/11/2021 10:32 AM
[2021-04-11 16:57] LABS: BUN Creatinine Ratio 78.9 (10-20); Calcium 8.4 mg/dl (8.5-10.1); Creatinine Clr Calc Pharmacy 84.6 ml/min; Est GFR (African American) 91.7 ml/min; Est GFR (Non-African American) 79.1 ml/min; Potassium 3.9 mmol/L (3.5-5.1)
[2021-04-11] MEDS: MULTIVITAMIN TAB PO SCH (17:36)
[2021-04-11] MEDS: ATORVASTATIN 40 MG TAB PO SCH (20:32)
[2021-04-11] MEDS: acetaZOLAMIDE 250 MG TAB PO SCH (21:25)
[2021-04-11] MEDS: MELATONIN 3 MG TAB PO PRN (22:17)
[2021-04-12 05:28] LABS: Hematocrit (blood only) 40.4 % (42-52); Hemoglobin 12.9 g/dL (14.0-18.0); Mean Corpuscular Hemoglobin 32.3 pg (25-34); Mean Corpuscular Hgb Conc 31.9 g/dL (32-36); Mean Corpuscular Volume 101.3 fL (80-100); Mean Platelet Volume 11.3 fL (7.4-10.4); Nucleated RBC # (auto) 0.03 K/uL (0-0); Nucleated RBC % (auto) 0.3 %; Platelet Count 180 K/uL (130-400); RDW Coefficient of Variation 15.3 % (11.5-14.5); RDW Standard Deviation 57.2 fL (36.4-46.3); Red Blood Count 3.99 M/uL (4.7-6.1); White Blood Count 11.27 K/uL (4.8-10.8)
[2021-04-12 05:55] LABS: BUN Creatinine Ratio 81.7 (10-20); Calcium 8.8 mg/dl (8.5-10.1); Creatinine Clr Calc Pharmacy 86.5 ml/min; Est GFR (African American) 94.1 ml/min; Est GFR (Non-African American) 81.2 ml/min; Potassium 3.3 mmol/L (3.5-5.1)
[2021-04-12] MEDS ORDERED: POTASSIUM CHLORIDE CRTAB 20 MEQ TABCR PO STA (07:35)
--- NOTE | 2021-04-12 07:39 | Hospitalist Progress Note ---
Date of Service April 12, 2021 Assessment & Plan (1) Pneumonia due to COVID-19 virus: Plan: able to stay on high flow 40L 100%, eating and drinking, moving his bowels, no new issues at this time determination of disposition is a question currently remains comfortable on high flow and CPAP/BiPAP HS for elevated CO2, confirmed on ABG completed 5-day course of Remdesivir. completed 7-day course of IV abx in the event of bacterial superinfection. over 2 weeks now of needing max high flow and/or CPAP Had received dexamethasone continuously and then was to have stopped therapy 04/10 but never weaned until then --> 4mg IV for 04/11, 04/12, then decrease to 2mg IV x 2 days, then 1mg IV x 2 days, then stop CHF Exacerbation with volume overload from continuous steroids (acute on chronic diastolic CHF) * metolazone started 5mg on 04/08 and patient received daily though 04/11 and diamox 250mg BID x 3 days started to help with CO2 retention * --> Continue usual bumex 4mg BID. * Cr stable * --> Lung exam stable and will hold off further metolazone for today, but consi fabiola additional dose tomorrow if Bps tolerate * --> Continued electrolyte replacement --> K increased to 20meq TID. Mag wnl LTAC unable to take unless 60% FiO2 or less but they are able to accommodate 30- 40L/min HFNC --> Currently patient 90% on HFNC @ 35L/min and FiO2 90% Confirmed he does not want intubated, he understands it would not offer him any benefit If he gets into respiratory distress he wants to be on comfort care. Continue to monitor (2) Acute on chronic respiratory failure with hypoxia and hypercapnia: Plan: acute component - now 3 weeks here, with acute on chronic diastolic CHF chronic - COPD, usually on 4 L NC O2 at home. Weaning steroids as above * --> now on 4mg dexamethasone, decrease to 2mg IV daily in AM x 2 days, 1mg IV x 2 days then stop * Nebs prn, add mucinex BID Diuresis for CHF as well --> added metolazone 04/08, continued on bumex 4mg IV BID. Net negative 9L since initiation of metolazone 04/11 CXR improvement in edema, continued hypercapnia * --> Diamox added evening 04/11 and will continue 250mg PO BID x 3 days to see if improvement * --> Continue bumex 4mg IV BID, holding further metolazone at this time while added diamox and will consider repeat dose in AM * Cr remains stable Procal <0.5 not indicating need for abx, and previously did complete Discussed regarding PCP pneumonia, d on bronch and patient not to pursue bronch at this time. Would not start empiric Bactrim for such as discussed with pulmonary Titrate oxygen to maintain sats -- continue to monitor LTAC planned at discharge (3) Acute on chronic diastolic (congestive) heart failure: Plan: see above under #2 Diuresis with bumex (4) Atrial fibrillation, permanent: Plan: rates acceptable cont metoprolol cont eliquis BID currently on medical status (5) CAD (coronary artery disease): Plan: no ischemic sx's at this time cont Eliquis, statin, BB (6) COPD (chronic obstructive pulmonary disease): Plan: cont bronchodilators, steroids, home inhalers, etc see above (7) HTN (hypertension), benign: Plan: controlled (8) Impaired fasting glucose: Plan: last HbA1C < 6% [id number], because of steroids, glucoses had been high continue increased lantus to 15 units BID BSGs stable decreased steroids and will need continued adjustments if dropping too low --> monitor as BSGs are trending down, suspect decreased needs tomorrow but have been acceptable today (9) Morbid obesity: Plan: BMI 44.4 (10) SHIRA (obstructive sleep apnea): Plan: typically on CPAP at home --> To utilize BiPAP HS as above, encouraged compliance BiPAP placed currently for hypercapneic resp failure (11) Hypokalemia: Plan: replaced and resolved however again low -- likely from metolazone use Additional replacement 40meq on top of the 20meq BID PO scheduled on 04/10 Addition K evening 04/11 with hypokalemia on repeat K 3.3 this AM continue increased PO supplementation to TID BMP in AM Plan: VTE Prophylaxis * Eliquis continue CPAP/BiPAP HS and high flow during the day (BiPAP today/HFNC) Unsure if patient will make it out of hospital, but will continue diuresis as above Titration off of decadron with significant oxygen requirement will need LTAC at this time --> CM following. Updated at bedside f he is uncomfortable or gets into distress then transition to comfort care Admission and Anticipated Discharge Date Admission Date: March 14, 2021 Supervising Physician Co-Signing Physician Notes Attending Attestation: Chart reviewed in detail, care plan d/w ALEXANDRA Momin. I agree w/ the blancas components of her documentation. 75yo male with refractory/severe acute/chronic hypercarbic/hypoxic respiratory failure. Combination of severe COVID-19 pneumonia and acute/chronic diastolic CHF. Remains on max HFNC and BIPAP, alternating between the two. Spent the majority of his first 10 days in the hospital on BIPAP/CPAP. No significant improvement over last several days despite attempts at aggressive diuresis. Cont bumex, cont diamox (for contraction alkalosis). Holding metazolone. Prognosis very poor. Avila Abraham MD Subjective Patient evaluated this morning and then seen again this afternoon to update at bedside. Patient with fatigue today. Not in a great mood. Continues to be hard of hearing and shouting at times. Able to read lips of . Eating/drinking without issue. Remains on HFNC at this time, breathing stable, no reported increased shortness of breath/chest pain at this time. Continues to make copious clear yellow urine and diuresis continued as discussed with . Plans for LTAC and they are going to further discuss tonight together and get ba ck to me about the discussion. Ideally patient would like to return home in long run but discussed LTAC in meantime as we will not know how long her will need to remain on increased O2/HFNC. under impression patient "over covid" and this is more from his COPD. Discussed while received steroids/abx/decadron for the covid, this is complications of such and we will not know about residential, however did discuss there is possibility patient may not make it out of the hospital. Patient and agreeable to continue diuretics and weaning of oxygen at this time and see how he does over the next 2 days and then will have further discussions if status changes, but will need to remain inpatient until FiO2 can be weaned to 60% for LTAC to accomodate. Review of Systems Review of Systems: All systems reviewed & are unremarkable except as noted in HPI & below Physical Exam Physical Exam: General: WD/WN, chronically ill appearing, tired male in bed, no acute distress. BiPAP in place this morning (was on HFNC 35L/min this afternoon with SpO2 90%) Eyes anicteric, pupils equal slightly dry mm bandage to bridge of nose from prior skin breakdown from BiPAP mask trachea midline without deviation Lungs: diminished in the bases with associated crackles, end expiratory wheezing, on HFNC CV: irregularly irregular, no m/r/g, venous stasis changes to b/l LE, trace pedal edema, GI: +BS throughout, soft, nontender : Menendez draining clear yellow urine Psych/Neuro: AOx3, flat, depressed affect. CN intact, no focal deficits Results & Data Results & Data ([facility]) Vital Signs (Past 12 Hours) Vital Signs Temp Pulse Pulse Pulse Resp BP Pulse Ox 04/12/21 02:48 92 H 34 H 99 04/11/21 22:29 36.3 C L 93 H 20 105/69 95 04/11/21 22:22 85 30 H 89 L 04/11/21 20:03 92 H 20 87 L 04/11/21 20:02 92 H 20 87 L 04/11/21 20:00 100 H 106/64 Laboratory Results 04/12/21 04/12/21 04/11/21 Range/Units 05:18 05:18 20:44 WBC 11.27 H (4.8-10.8) K/uL RBC 3.99 L (4.7-6.1) M/uL Hgb 12.9 L (14.0-18.0) g/dL Hct 40.4 L (42-52) % MCV 101.3 H (80-100) fL MCH 32.3 (25-34) pg MCHC 31.9 L (32-36) g/dL RDW Std Deviation 57.2 H (36.4-46.3) fL RDW Coeff of Ezekiel 15.3 H (11.5-14.5) % Plt Count 180 (130-400) K/uL MPV 11.3 H (7.4-10.4) fL Absolute Nucleated RBC 0.03 H (0-0) K/uL Nucleated RBC % (auto) 0.3 % Sodium 144 (136-145) mmol/L Potassium 3.3 L (3.5-5.1) mmol/L Chloride 93 L (98-107) mmol/L Carbon Dioxide 43 H* (21-32) mmol/L Anion Gap 8 (3-11) BUN 76 H (7-18) mg/dl Creatinine 0.93 (0.6-1.4) mg/dl Est Cr Clr Drug Dosing 86.5 ml/min Est GFR ( Amer) 94.1 ml/min Est GFR (Non-Af Amer) 81.2 ml/min BUN/Creatinine Ratio 81.7 H (10-20) Glucose 107 H (70-99) mg/dl POC Glucose 134 H (70-99) mg/dl Calcium 8.8 (8.5-10.1) mg/dl 04/11/21 04/11/21 04/11/21 Range/Units 17:18 15:51 12:08 WBC (4.8-10.8) K/uL RBC (4.7-6.1) M/uL Hgb (14.0-18.0) g/dL Hct (42-52) % MCV (80-100) fL MCH (25-34) pg MCHC (32-36) g/dL RDW Std Deviation (36.4-46.3) fL RDW Coeff of Ezekiel (11.5-14.5) % Plt Count (130-400) K/uL MPV (7.4-10.4) fL Absolute Nucleated RBC (0-0) K/uL Nucleated RBC % (auto) % Sodium 140 (136-145) mmol/L Potassium 3.9 (3.5-5.1) mmol/L Chloride 91 L (98-107) mmol/L Carbon Dioxide 42 H* (21-32) mmol/L Anion Gap 7 (3-11) BUN 75 H (7-18) mg/dl Creatinine 0.95 (0.6-1.4) mg/dl Est Cr Clr Drug Dosing 84.6 ml/min Est GFR ( Amer) 91.7 ml/min Est GFR (Non-Af Amer) 79.1 ml/min BUN/Creatinine Ratio 78.9 H (10-20) Glucose 152 H (70-99) mg/dl POC Glucose 133 H 113 H (70-99) mg/dl Calcium 8.4 L (8.5-10.1) mg/dl 04/11/21 04/11/21 Range/Units 08:07 07:43 WBC (4.8-10.8) K/uL RBC (4.7-6.1) M/uL Hgb (14.0-18.0) g/dL Hct (42-52) % MCV (80-100) fL MCH (25-34) pg MCHC (32-36) g/dL RDW Std Deviation (36.4-46.3) fL RDW Coeff of Ezekiel (11.5-14.5) % Plt Count (130-400) K/uL MPV (7.4-10.4) fL Absolute Nucleated RBC (0-0) K/uL Nucleated RBC % (auto) % Sodium 139 (136-145) mmol/L Potassium 3.1 L (3.5-5.1) mmol/L Chloride 93 L (98-107) mmol/L Carbon Dioxide 42 H* (21-32) mmol/L Anion Gap 5.0 (3-11) BUN 67 H (7-18) mg/dl Creatinine 0.91 (0.6-1.4) mg/dl Est Cr Clr Drug Dosing 88.4 ml/min Est GFR ( Amer) 96.6 ml/min Est GFR (Non-Af Amer) 83.3 ml/min BUN/Creatinine Ratio 73.8 H (10-20) Glucose 88 (70-99) mg/dl POC Glucose 90 (70-99) mg/dl Calcium 8.6 (8.5-10.1) mg/dl Diagnostic Findings Chest X-Ray 04/11/21 08:49 XR chest 1V portable CLINICAL HISTORY: Follow-up bilateral airspace opacities and pulmonary edema. COMPARISON STUDY: 04/07/2021 TECHNIQUE: 1 view of the chest FINDINGS: Single frontal view of the chest demonstrates the heart to again be enlarged. Compared to the previous examination, there has been significant resolution of pulmonary edema with only mild central vascular congestion remains present. There is blunting of left costophrenic angle characteristic of a small left pleural effusion. There is interval decrease in alveolar opacities. There is no acute osseous pathology. IMPRESSION: Interval improvement of bilateral airspace opacities and pulmonary edema with only mild central vascular congestion and small left pleural effusion present. ACT 112: Negative or not required by law. Electronically signed by: Myles Long M.D. 04/11/2021 10:32 AM PG Care Time/CCT Total # of Minutes Spent Total Time Spent with Patient: Total time spent is greater than 50% in coordination of care (as documented) at patient's floor/unit and/or counseling patient: Coding Level of Care Code 92029 Subseq Hosp Care Lvl 3 Diagnoses Pneumonia due to COVID-19 virus U07.1; J12.82 Acute on chronic respiratory failure with hypoxia and hypercapnia J96.21; J96 .22 Acute on chronic diastolic (congestive) heart failure I50.33 Atrial fibrillation, permanent I48.21 CAD (coronary artery disease) I25.10 Associated angina: without angina Coronary Disease-Associated Artery/Lesion type: lime artery [place] vs. transplanted heart: lime heart COPD (chronic obstructive pulmonary disease) J44.1 COPD type: COPD with acute exacerbation HTN (hypertension), benign I10 Impaired fasting glucose R73.01 Morbid obesity E66.01 SHIRA (obstructive sleep apnea) G47.33 Hypokalemia E87.6 (1) CAD (coronary artery disease) Associated angina: without angina Coronary Disease-Associated Artery/Lesion type: lime artery [place] vs. transplanted heart: lime heart Qualified Code(s): I25.10 - Atherosclerotic heart disease of lime coronary artery without angina pectoris (2) COPD (chronic obstructive pulmonary disease) COPD type: COPD with acute exacerbation Qualified Code(s): J44.1 - Chronic obstructive pulmonary disease with (acute) exacerbation
[2021-04-12] MEDS: ALBUT/IPRATROP 3MG/0.5MG NEB 3 ML VIAL INH SCH ×2 (07:44→19:19)
[2021-04-12] MEDS: FERROUS SULFATE 325 MG TAB PO SCH (08:12)
[2021-04-12] MEDS: acetaZOLAMIDE 250 MG TAB PO SCH ×2 (08:12→22:12)
[2021-04-12] MEDS: CYANOCOBALAMIN 500 MCG TABLET (VITAMIN B-12) PO SCH (08:13)
[2021-04-12] MEDS: OMEGA-3 (PURIFIED FISH OIL) 1 GM CAP PO SCH (08:14)
[2021-04-12] MEDS: PANTOprazole 40 MG TAB PO SCH (08:14)
[2021-04-12] MEDS: APIXABAN 5 MG TABLET PO SCH ×2 (08:14→22:12)
[2021-04-12] MEDS: FLUTICASONE FUROATE 100MCG 14 PUFFS/INHALER INH SCH (08:15)
[2021-04-12] MEDS: CALCIUM 600MG + VIT D 400 IU TAB PO SCH ×2 (08:15→22:19)
[2021-04-12] MEDS: UMECLIDINIUM/VILANTEROL 62.5/25MCG 7 PUFFS/INHALER INH SCH (08:16)
[2021-04-12] MEDS: TRIAMCINOLONE ACET NASAL SPRAY 10.8ML BTL NAE SCH (08:16)
[2021-04-12] MEDS: METOPROLOL SUCC 50MG EXT REL TAB PO SCH ×2 (08:18→22:17)
[2021-04-12] MEDS: dexAMETHasone 2 MG in SYRINGE 0 ML IV SCH (08:21)
[2021-04-12] MEDS: BUMETANIDE 4 MG in SYRINGE 0 ML IV SCH ×2 (08:21→17:54)
[2021-04-12] MEDS: ACETAMINOPHEN 325 MG TAB PO PRN ×3 (08:23→22:15)
[2021-04-12] MEDS: INSULIN ASPART PER UNIT SC SCH ×4 (09:35→22:20)
--- NOTE | 2021-04-12 09:47 | XRay Report ---
XR chest 1V portable CLINICAL HISTORY: follow up CHF TECHNIQUE: Single frontal radiograph of the chest was obtained. Comparison: Comparison is made to chest one view 04/11/2021 FINDINGS: Lines and tubes are stable. Cardiomegaly is noted. There is prominence and cephalization of the vascu lature with Kirit B lines seen. Bilateral pleural effusions are seen, stable to minimally increased from prior exam. IMPRESSION: Moderate pulmonary edema. Bilateral pleural effusions. Overall findings are stable to minimally incre ased from prior exam. ACT 112: Negative or not required by law. Electronically signed by: Jared Taveras M.D. 04/12/2021 9:46 AM
[2021-04-12] MEDS: POTASSIUM CHLORIDE CRTAB 20 MEQ TABCR PO SCH ×3 (10:43→22:17)
[2021-04-12] MEDS: INSULIN GLARGINE SOLOSTAR 100 UNITS/ML 3 ML PEN SC SCH ×2 (10:43→22:20)
[2021-04-12] MEDS: MULTIVITAMIN TAB PO SCH (17:51)
[2021-04-12] MEDS: ATORVASTATIN 40 MG TAB PO SCH (22:16)
[2021-04-12] MEDS: guaiFENesin 600 MG TABCR PO SCH (22:24)
[2021-04-13 05:43] LABS: Base Excess VBG 16.1 mEq/L; pH VBG 7.37 (7.36-7.41)
[2021-04-13 06:18] LABS: BUN Creatinine Ratio 79.8 (10-20); Calcium 8.5 mg/dl (8.5-10.1); Creatinine Clr Calc Pharmacy 90.3 ml/min; Est GFR (African American) 98.3 ml/min; Est GFR (Non-African American) 84.8 ml/min; Magnesium 2.6 mg/dl (1.7-2.4); Potassium 3.3 mmol/L (3.5-5.1)
[2021-04-13] MEDS ORDERED: POTASSIUM CHLORIDE CRTAB 20 MEQ TABCR PO STA (06:31)
[2021-04-13] MEDS: ALBUT/IPRATROP 3MG/0.5MG NEB 3 ML VIAL INH SCH (07:38)
--- NOTE | 2021-04-13 08:34 | Hospitalist Progress Note ---
Date of Service April 13, 2021 Assessment & Plan (1) Pneumonia due to COVID-19 virus: Plan: able to stay on high flow 40L 100%, eating and drinking, moving his bowels, no new issues at this time determination of disposition is a question currently remains comfortable on high flow and CPAP/BiPAP HS for elevated CO2, confirmed on ABG completed 5-day course of Remdesivir. completed 7-day course of IV abx in the event of bacterial superinfection. over 2 weeks now of needing max high flow and/or CPAP Had received dexamethasone continuously while inpatient (increased to 10mg 03/24 for ARDS then decreased to 8mg 03/30, 6mg on 04/02 and then continued until decreased to 4mg on 04/11. * --> 2mg IV today, plans for 1mg IV 04/14 x 2 days then stop Continued hypercapnia -- CO2 81 on VBG this morning/CO2 43 on bmp * --> placed on BiPAP this morning and instructed to continue use for now, ok to remove for [address] back on after visit with jo * --> continuing diamox 250mg BID * Procal 0.16, no abx at this time CHF with volume overload from continuous steroids (acute on chronic diastolic CHF) * now euvolemic * metolazone started 5mg on 04/08 and patient received daily though 04/11 and diamox 250mg BID x 3 days started to help with CO2 retention -- remains elevated * At baseline weight and will hold further bumex/metolazone (metolazone but on hold 04/12), hold further K supp (did get 60meq total today, for K 3.3 as was initially getting bumex, since placed on hold) * Cr stable Will obtain CT Chest for further eval/effusions Consult pulm for AM -- recs/assistance appreciated with prognosis. has been here almost a month, no formal pulm consult --> ? bactrim for PCP pneumonia possibly, further recs to be able to get patient to LTAC etc. appreciate recs LTAC unable to take unless 60% FiO2 or less but they are able to accommodate 30- 40L/min HFNC Confirmed he does not want intubated, he understands it would not offer him any benefit If he gets into respiratory distress he wants to be on comfort care. However, in meantime, goal to improve hypercapnic state and attempt to wean for LTAC, but understands if no improvement over next couple days with above changes will need continued conversations at bedside for discussion and will need continued discussion. Rec continued print out/writing for communication to demonstrate patient understanding Continue to monitor (2) Acute on chronic respiratory failure with hypoxia and hypercapnia: Plan: acute component - now 4 weeks here, with acute on chronic diastolic CHF (now ~dry weight) chronic - COPD, usually on 4 L NC O2 at home. Weaning steroids as above * --> now on 2mg dexamethasone 04/13, decrease to 1mg IV daily in AM x 2 days, then stop * Nebs prn, add mucinex BID Diuresis for CHF as well --> added metolazone 04/08, continued on bumex 4mg IV BID. Net negative 9.9L since initiation of metolazone (and now diamox since 04/11 evening, x 6 doses) 04/11 CXR improvement in edema, continued hypercapnia. Diamox added evening 04/11 and continued 250mg BID x 3 days to see if any improvement. Holding further bumex/metolazone to prevent worsening electrolyte issues/dehydration. 04/12 CXR without improvement Procal <0.5, no abx indicated at this time, previously completed course earlier in stay Per discussion with pulm, would not start empiric bactrim, however is concern given prolonged course of steroid therapy Diamox BID, continue Bipap and monitor overnight (3) Acute on chronic diastolic (congestive) heart failure: Plan: see above under #2 Diuresis with bumex, now on hold continue to monitor volume status (4) Atrial fibrillation, permanent: Plan: rates acceptable, 90-100 at present cont metoprolol cont eliquis BID currently on medical status (5) CAD (coronary artery disease): Plan: no ischemic sx's at this time cont Eliquis, statin, BB (6) COPD (chronic obstructive pulmonary disease): Plan: cont bronchodilators, steroids, home inhalers, etc see above (7) HTN (hypertension), benign: Plan: controlled (8) Impaired fasting glucose: Plan: last HbA1C < 6% [id number], because of steroids, glucoses had been high continue increased lantus to 18 units BID --> decreased to 16u BID 04/13 Continue to monitor BSGs as steroids decreased (9) Morbid obesity: Plan: BMI 44.4 (10) SHIRA (obstructive sleep apnea): Plan: typically on CPAP at home BiPAP as above for hypercap resp failure (11) Hypokalemia: Plan: replaced and resolved however again low -- likely from metolazone use Replacement ordered. Metolazone and bumex on hold, will hold additional supplementation Mag wnl BMP in am Plan: VTE Prophylaxis * Eliquis continue CPAP/BiPAP HS and high flow during the day (BiPAP today/HFNC) Unsure if patient will make it out of hospital, but will continue diuresis as above Titration off of decadron with significant oxygen requirement will need LTAC at this time --> CM following. Updated at bedside if he is uncomfortable or gets into distress then transition to comfort care CAUTIOUS PATIENT HERE >30 DAYS AND MEDICATIONS FELL OFF MAR THIS MORNING, RESUMED BUT WILL NEED TO CONTINUE MONITORING TO ENSURE Admission and Anticipated Discharge Date Admission Date: March 14, 2021 Supervising Physician Co-Signing Physician Notes Attending Attestation: Chart reviewed in detail, care plan d/w ALEXANDRA Momin. I agree w/ the blancas components of her documentation. 75yo male with refractory/severe acute/chronic hypercarbic/hypoxic respiratory failure. Combination of severe COVID-19 pneumonia and acute/chronic diastolic CHF. Remains on max HFNC and BIPAP, alternating between the two, but now requiring BIPAP >HFNC. Spent the majority of his first 10 days in the hospital on BIPAP/CPAP. No meaningful improvement this week. BUN rising, HCO3 still very high - although may still having decompensated diastolic CHF, intravascularly may be slightly dry. Agree w/ holding bumex/metazolone. Cont diamox. Agree w/ CT chest - ARDS?? Superimposed bacterial pneumonia? edema? combo? other? Agree w/ pulmonary consult. Avila Abrhaam MD Subjective patient evaluated this afternoon no acute distress, laying in bed, BiPAP in place. Printed out questions due to hard of hearing to ensure understanding. Patient specifically denies fever, chills, chest pain, shortness of breath, abdominal pain, nausea, vomiting. Reviewed medication changes and request to continue BiPAP as much as possible and will continue Diamox for CO2 retention. Patient agrees to plan as outlined. Did discuss with patient he may not recover from this illness but we will need to see how he does with medication changes, but he does not want any invasive procedures. He is agreeable to LTAC, but states " is the boss" and motioned to her. Discussed we want this decision to be his and not feel like he is being forced into anything. As discussed with on phone earlier today, patient does have 2 sons living in [place], but they do not visit/not very involved. Patient did have two brothers who committed suicide so is concerned about patient and hopelessness if home on hospice/taking own life. Discussed unable to d/c home on hospice with current O2 needs and discussion had regarding LTAC if able to wean oxygen. Patient and visiting at end of encounter -- RT to place on HFNC for hour, then replace. Patient has been utilizing since this morning. Review of Systems Review of Systems: All systems reviewed & are unremarkable except as noted in HPI & below Physical Exam Physical Exam: General: WD/WN, chronically ill appearing, tired (less) male in bed, no acute distress Eyes anicteric, pupils equal slightly dry mm bandage to bridge of nose from prior skin breakdown from BiPAP mask trachea midline without deviation Lungs: diminished in the bases with associated crackles, end expiratory wheezing, on BiPAP CV: irregularly irregular (96bpm), no m/r/g, venous stasis changes to b/l LE,, no pitting edema GI: +BS throughout, soft, nontender : Menendez draining clear yellow urine Psych/Neuro: AOx3, flat affect. CN intact, no focal deficits Results & Data Results & Data ([facility]) Vital Signs (Past 12 Hours) Vital Signs Temp Pulse Pulse Pulse Resp BP BP 04/13/21 08:22 87 22 04/13/21 08:00 94 H 32 H 04/13/21 07:38 85 28 H 04/13/21 07:10 36.2 C L 96 H 20 124/74 04/13/21 04:51 90 22 04/12/21 22:45 90 24 04/12/21 22:15 36.5 C 101 H 20 119/73 Pulse Ox 04/13/21 08:22 94 04/13/21 08:00 96 04/13/21 07:38 94 04/13/21 07:10 95 04/13/21 04:51 97 04/12/21 22:45 90 04/12/21 22:15 87 L Laboratory Results 04/13/21 04/13/21 04/13/21 Range/Units 08:06 05:27 05:27 VBG pH 7.37 (7.36-7.41) VBG pCO2 81 H (38-50) mmHg VBG pO2 50 mmHg VBG HCO3 45 mmol/L VBG O2 Saturation 81.0 % VBG Base Excess 16.1 mEq/L Barometric Pressure 729.9 mm/Hg Sodium 144 (136-145) mmol/L Potassium 3.3 L (3.5-5.1) mmol/L Chloride 92 L (98-107) mmol/L Carbon Dioxide 43 H* (21-32) mmol/L Anion Gap 9 (3-11) BUN 71 H (6-23) mg/dl Creatinine 0.89 (0.6-1.4) mg/dl Est Cr Clr Drug Dosing 90.3 ml/min Est GFR ( Amer) 98.3 ml/min Est GFR (Non-Af Amer) 84.8 ml/min BUN/Creatinine Ratio 79.8 H (10-20) Glucose 84 (70-99) mg/dl POC Glucose 96 (70-99) mg/dl Calcium 8.5 (8.5-10.1) mg/dl Magnesium 2.6 H (1.7-2.4) mg/dl Procalcitonin (0-0.5) ng/ml 04/12/21 04/12/21 04/12/21 Range/Units 20:33 16:44 13:00 VBG pH (7.36-7.41) VBG pCO2 (38-50) mmHg VBG pO2 mmHg VBG HCO3 mmol/L VBG O2 Saturation % VBG Base Excess mEq/L Barometric Pressure mm/Hg Sodium (136-145) mmol/L Potassium (3.5-5.1) mmol/L Chloride (98-107) mmol/L Carbon Dioxide (21-32) mmol/L Anion Gap (3-11) BUN (6-23) mg/dl Creatinine (0.6-1.4) mg/dl Est Cr Clr Drug Dosing ml/min Est GFR ( Amer) ml/min Est GFR (Non-Af Amer) ml/min BUN/Creatinine Ratio (10-20) Glucose (70-99) mg/dl POC Glucose 162 H 160 H 177 H (70-99) mg/dl Calcium (8.5-10.1) mg/dl Magnesium (1.7-2.4) mg/dl Procalcitonin (0-0.5) ng/ml 04/12/21 04/12/21 Range/Units 09:36 05:18 VBG pH (7.36-7.41) VBG pCO2 (38-50) mmHg VBG pO2 mmHg VBG HCO3 mmol/L VBG O2 Saturation % VBG Base Excess mEq/L Barometric Pressure mm/Hg Sodium (136-145) mmol/L Potassium (3.5-5.1) mmol/L Chloride (98-107) mmol/L Carbon Dioxide (21-32) mmol/L Anion Gap (3-11) BUN (6-23) mg/dl Creatinine (0.6-1.4) mg/dl Est Cr Clr Drug Dosing ml/min Est GFR ( Amer) ml/min Est GFR (Non-Af Amer) ml/min BUN/Creatinine Ratio (10-20) Glucose (70-99) mg/dl POC Glucose (70-99) mg/dl Calcium (8.5-10.1) mg/dl Magnesium 2.6 H (1.7-2.4) mg/dl Procalcitonin 0.16 (0-0.5) ng/ml PG Care Time/CCT Total # of Minutes Spent Total Time Spent with Patient: Total time spent is greater than 50% in coordination of care (as documented) at patient's floor/unit and/or counseling patient: Coding Level of Care Code 20032 Subseq Hosp Care Lvl 3 Diagnoses Pneumonia due to COVID-19 virus U07.1; J12.82 Acute on chronic respiratory failure with hypoxia and hypercapnia J96.21; J96.22 Acute on chronic diastolic (congestive) heart failure I50.33 Atrial fibrillation, permanent I48.21 CAD (coronary artery disease) I25.10 Associated angina: without angina Coronary Disease-Associated Artery/Lesion type: [place] artery [place] vs. transplanted heart: [place] heart COPD (chronic obstructive pulmonary disease) J44.1 COPD type: COPD with acute exacerbation HTN (hypertension), benign I10 Impaired fasting glucose R73.01 Morbid obesity E66.01 SHIRA (obstructive sleep apnea) G47.33 Hypokalemia E87.6 (1) CAD (coronary artery disease) Associated angina: without angina Coronary Disease-Associated Artery/Lesion type: [place] artery [place] vs. transplanted heart: [place] heart Qualified Code(s): I25.10 - Atherosclerotic heart disease of [place] coronary artery without angina pectoris (2) COPD (chronic obstructive pulmonary disease) COPD type: COPD with acute exacerbation Qualified Code(s): J44.1 - Chronic obstructive pulmonary disease with (acute) exacerbation
[2021-04-13] MEDS: INSULIN GLARGINE SOLOSTAR 100 UNITS/ML 3 ML PEN SC SCH (08:55)
[2021-04-13] MEDS: INSULIN ASPART PER UNIT SC SCH ×4 (08:56→21:11)
[2021-04-13] MEDS: CALCIUM 600MG + VIT D 400 IU TAB PO SCH (08:57)
[2021-04-13] MEDS: OMEGA-3 (PURIFIED FISH OIL) 1 GM CAP PO SCH (08:57)
[2021-04-13] MEDS: acetaZOLAMIDE 250 MG TAB PO SCH ×2 (08:57→21:11)
[2021-04-13] MEDS: METOPROLOL SUCC 50MG EXT REL TAB PO SCH ×2 (08:57→21:10)
[2021-04-13] MEDS: FERROUS SULFATE 325 MG TAB PO SCH (08:57)
[2021-04-13] MEDS: CYANOCOBALAMIN 500 MCG TABLET (VITAMIN B-12) PO SCH (08:57)
[2021-04-13] MEDS: PANTOprazole 40 MG TAB PO SCH (08:57)
[2021-04-13] MEDS: guaiFENesin 600 MG TABCR PO SCH ×2 (08:57→21:11)
[2021-04-13] MEDS: APIXABAN 5 MG TABLET PO SCH ×2 (08:57→21:11)
[2021-04-13] MEDS: POTASSIUM CHLORIDE CRTAB 20 MEQ TABCR PO SCH (08:57)
[2021-04-13] MEDS: dexAMETHasone 2 MG in SYRINGE 0 ML IV SCH (08:58)
[2021-04-13] MEDS: ACETAMINOPHEN 325 MG TAB PO PRN ×3 (08:58→21:23)
[2021-04-13] MEDS: TRIAMCINOLONE ACET NASAL SPRAY 10.8ML BTL NAE SCH (08:59)
[2021-04-13] MEDS: UMECLIDINIUM/VILANTEROL 62.5/25MCG 7 PUFFS/INHALER INH SCH (08:59)
[2021-04-13] MEDS: FLUTICASONE FUROATE 100MCG 14 PUFFS/INHALER INH SCH (08:59)
[2021-04-13] MEDS ORDERED: ONDANSETRON INJ 2 MG/ML 2 ML VIAL IV PRN (12:04)
[2021-04-13] MEDS ORDERED: POLYETHYLENE (MIRALAX) 17 GM PACK PO PRN (12:04)
[2021-04-13] MEDS ORDERED: ALBUTEROL HFA 8 GM INHALER INH PRN (12:04)
[2021-04-13] MEDS ORDERED: DOCUSATE SODIUM 100 MG CAP PO PRN (12:04)
[2021-04-13] MEDS ORDERED: OPTIRAY 320 100ml IV ONE (17:45)
--- NOTE | 2021-04-13 18:07 | CT Scan Report ---
CT SCAN OF THE CHEST WITH IV CONTRAST CLINICAL HISTORY: Covid pneumonia. Hypoxia. COMPARISON STUDY: Chest x-ray dated 04/12/2021. Chest CT dated 12/19/2018. TECHNIQUE: Following the IV administration of 91 cc of Optiray 320, CT scan of the thorax was perform ed from the thoracic inlet to the upper abdomen. Images are reviewed in the axial, sagittal, and magdalena nal planes. IV contrast was administered without complication. A dose lowering technique was utilize d adhering to the principles of ALARA. Examination is significantly degraded by motion artifact, as w ell as by streak artifact from the arms which could not be elevated above the chest. There is also st reak artifact from a right shoulder arthroplasty. CT DOSE: 1163.62 mGy.cm FINDINGS: Thyroid: Imaged portions of the thyroid gland are normal in size and attenuation. Thoracic aorta: There is atherosclerotic calcification of the thoracic aorta, which is normal in rubi kaykay and demonstrates standard 3-vessel arch anatomy. No dissection is seen. Pulmonary vasculature: The pulmonary trunk is normal in caliber. There are no filling defects identif ied in the central pulmonary vessels to indicate pulmonary embolus. Note that this examination was no t protocoled for evaluation of the pulmonary arteries. Heart: The heart is enlarged and without pericardial effusion. The coronary arteries are densely calc ified. Lungs and pleural spaces: Evaluation of the lung parenchyma is severely degraded by motion artifact. Emphysema is noted. Multifocal airspace opacities are seen throughout both lungs. No pleural effusion or pneumothorax is identified. The trachea and central airways are patent. Parenchyma scarring is no lucita at both lung bases. Scattered calcified granulomas are noted. Mediastinum: Mildly enlarged right peritracheal node measures up to 11 mm in short axis. Thea: Grossly clear. Axillae: There is no axillary lymphadenopathy. Upper abdomen: The liver is cirrhotic in morphology and heterogeneous in attenuation. There is hypert rophy of the left lobe. A tiny hiatal hernia is observed. A gastric lipoma is incidentally noted on a xial image #[id number]. Skeletal structures: The skeletal structures are osteopenic. The skeletal structures are osteopenic. Degenerative change is noted in the left shoulder and thoracic spine. No lytic or blastic bony lesion s are seen. A right shoulder arthroplasty is in place. There are healed right-sided rib fractures. IMPRESSION: 1. Severely streak and motion compromised examination. 2. Cardiomegaly and emphysema. 3. Airspace opacities are seen throughout both lungs and likely correspond to the reported history of a viral pneumonia. Correlate clinically for evidence of superimposed ARDS or pulmonary edema. Radiog raphic follow-up to resolution is recommended. 4. No pleural effusion or pneumothorax is identified. 5. Cirrhotic liver morphology. 6. Additional findings as above. ACT 112: Negative or not required by law. Electronically signed by: Nicolas Duenas M.D. 04/13/2021 6:06 PM
[2021-04-13] MEDS ORDERED: INSULIN GLARGINE SOLOSTAR 100 UNITS/ML 3 ML PEN SC SCH (21:00)
[2021-04-13] MEDS: ESZOPICLONE 1 MG TAB PO PRN (21:09)
[2021-04-14 05:33] LABS: Hematocrit (blood only) 39.1 % (42-52); Hemoglobin 12.4 g/dL (14.0-18.0); Mean Corpuscular Hemoglobin 32.5 pg (25-34); Mean Corpuscular Hgb Conc 31.7 g/dL (32-36); Mean Corpuscular Volume 102.4 fL (80-100); Mean Platelet Volume 11.2 fL (7.4-10.4); Platelet Count 175 K/uL (130-400); RDW Coefficient of Variation 15.7 % (11.5-14.5); Red Blood Count 3.82 M/uL (4.7-6.1); White Blood Count 9.65 K/uL (4.8-10.8)
[2021-04-14 05:42] LABS: INR 1.1 (0.9-1.1); Prothrombin Time 11.3 Seconds (9.0-12.0)
[2021-04-14 05:53] LABS: Oxygen Saturation VBG 72.5 %; pH VBG 7.37 (7.36-7.41)
[2021-04-14 05:54] LABS: BUN Creatinine Ratio 85.9 (10-20); Calcium 8.5 mg/dl (8.5-10.1); Creatinine Clr Calc Pharmacy 103.1 ml/min; Est GFR (African American) 103.8 ml/min; Est GFR (Non-African American) 89.6 ml/min; Potassium 3.3 mmol/L (3.5-5.1)
[2021-04-14] MEDS ORDERED: POTASSIUM CHLORIDE CRTAB 20 MEQ TABCR PO STA ×2 (06:27→08:28)
[2021-04-14] MEDS: ACETAMINOPHEN 325 MG TAB PO PRN ×3 (07:40→19:37)
[2021-04-14] MEDS: acetaZOLAMIDE 250 MG TAB PO SCH (07:42)
[2021-04-14] MEDS: PANTOprazole 40 MG TAB PO SCH (07:42)
[2021-04-14] MEDS: dexAMETHasone 1 MG in SYRINGE 0 ML IV SCH (07:42)
[2021-04-14] MEDS: guaiFENesin 600 MG TABCR PO SCH ×2 (07:42→19:43)
[2021-04-14] MEDS: APIXABAN 5 MG TABLET PO SCH ×2 (07:43→19:42)
[2021-04-14] MEDS: METOPROLOL SUCC 50MG EXT REL TAB PO SCH ×2 (07:44→20:37)
[2021-04-14] MEDS: FLUTICASONE FUROATE 100MCG 14 PUFFS/INHALER INH SCH (07:44)
[2021-04-14] MEDS: UMECLIDINIUM/VILANTEROL 62.5/25MCG 7 PUFFS/INHALER INH SCH (07:44)
--- NOTE | 2021-04-14 08:35 | Hospitalist Progress Note ---
Date of Service April 14, 2021 Assessment & Plan (1) Pneumonia due to COVID-19 virus: Plan: able to stay on high flow, eating and drinking, moving his bowels currently remains comfortable on high flow and CPAP/BiPAP HS for elevated CO2, confirmed on ABG completed 5-day course of Remdesivir. completed 7-day course of IV abx in the event of bacterial superinfection. over 2 weeks now of needing max high flow and/or CPAP Had received dexamethasone continuously while inpatient (increased to 10mg 03/24 for ARDS then decreased to 8mg 03/30, 6mg on 04/02 and then continued until decreased to 4mg on 04/11. * --> 1mg IV 04/14 x 2 days then stop Continued hypercapnia, NOW IMPROVED 04/14 (CO2 72 on VBG, 40 on BMP) previously CO2 81 on VBG/CO2 43 on bmp * --> placed on BiPAP * --> continuing diamox 250mg BID * Procal 0.16, no abx at this time CHF with volume overload from continuous steroids (acute on chronic diastolic CHF) * metolazone started 5mg on 04/08 and patient received daily though 04/11 and diamox 250mg BID x 3 days started to help with CO2 retention -- remains elevated * At baseline weight and will hold further bumex/metolazone (metolazone but on hold 04/12), hold further K supp (did get 60meq total today, for K 3.3 as was initially getting bumex, since placed on hold) * Cr stable 04/14 --> Net positive 680 yesterday --> Bumex resumed, increased to 4mg IV Q8H. Holding off further metolazone at this time. --> Added potassium back 40meq TID. 40meq x1 this am for continued hypokalemia CRP elevated. Procal still <0.5 but has cough, not bringing up sputum. Requested collection BNP only 147, however will continue to diuresis until SCr bumps CT Chest last evening with airspace opacities are seen throughout both lungs and likely correspond to the reported history of a viral pneumonia. Correlate clinically for evidence of superimposed ARDS or pulmonary edema. Radiographic follow-up to resolution is recommended. Holding oral inhalers and scheduled budesonide nebs BID -- monitor Decreased decadron as above Diamox continued through this evening, consider additional dosing as needed. --> CO2 improved today. Currently on HFNC but requested to be placed on BiPAP when sleeping/napping Consider fluid restriction. Will start with 2000cc and monitor -- patient with significant thirst reported but educated to limit to 2-3 containers/day to prevent volume overload state Pulm on consult -- appreciate recs, consideration for PCP tx empirically if warranted Discussed will see how measures go over the weekend but serious consideration needs to be made for comfort/palliative as has been ongoing issue for several weeks LTAC unable to take unless 60% FiO2 or less but they are able to accommodate 30- 40L/min HFNC --> DISCUSSED WITH RT IN ATTEMPTS AT WEANING --> CURRENTLY 93%, however patient with COPD and likely could titrate to 88-89% but would wait rec from pulm Confirmed he does not want intubated, he understands it would not offer him any benefit If he gets into respiratory distress he wants to be on comfort care. However, in meantime, goal to improve hypercapnic state and attempt to wean for LTAC, but understands if no improvement over next couple days with above changes will need continued conversations at bedside for discussion 04/14 and will need continued discussion after this weekend if increased diuretics/titration without improvement Rec continued print out/writing for communication to demonstrate patient understanding Continue to monitor (2) Acute on chronic respiratory failure with hypoxia and hypercapnia: Plan: acute component - now 4 weeks here, with acute on chronic diastolic CHF (now ~dry weight) chronic - COPD, usually on 4 L NC O2 at home. Weaning steroids as above --> now on 2mg dexamethasone 04/13, decrease to 1mg IV daily in AM x 2 days, then stop * Nebs prn (added budesonide BID 04/14), mucinex BID continued as recently added * Sputum cx if able to produce Diuresis for CHF -- prior elevated BNP, but wt gain on steroids/TPN and holding diuretics --> Bumex 4mg IV BID (held 04/13, since resumed and increased to TID) --> added metolazone 04/08, 04/09, 04/10 sinice held due to contraction alkalosis. Net negative 9.9L over the days metolazone initiated --> Diamox added 04/11 250mg BID x 6 doses --> improvement in CO2 on AM labs/VBG Cr stable and will continue to diurese until Scr bumps Already net neg 400cc this am since resuming therapy Procal increased 0.29 but still <0.5 CRP up to 13.37 CT chest with superimposed ARDS/edema Budesonide BID, holding inhalers --> monitor response Per discussion with pulm, would not start empiric bactrim, however is concern given prolonged course of steroid therapy Continue BiPAP HS and napping -- discussed with RT Pulm on consult --> appreciate recs (3) Acute on chronic diastolic (congestive) heart failure: Plan: see above under #2 continue to monitor volume status -- appears dry but diuresing until Cr bumps. wt 120.4kg -- previous dry wt but expected to be lower. TOtal I/O show cumulative net neg 39L for entire stay, however unsure of how accurate (4) Atrial fibrillation, permanent: Plan: rates acceptable, 90-100 at present cont metoprolol cont eliquis BID currently on medical status monitor on budesonide, expect some increase (5) CAD (coronary artery disease): Plan: no ischemic sx's at this time cont Eliquis, statin, BB (6) COPD (chronic obstructive pulmonary disease): Plan: cont bronchodilators, steroids, home inhalers, etc see above (7) HTN (hypertension), benign: Plan: controlled (8) Impaired fasting glucose: Plan: last HbA1C < 6% [id number], because of steroids, glucoses had been high continue increased lantus to 18 units BID --> decreased to 16u BID 04/13 Continue to monitor BSGs as steroids decreased (9) Morbid obesity: Plan: BMI 44.4 (10) SHIRA (obstructive sleep apnea): Plan: typically on CPAP at home BiPAP as above for hypercap resp failure (11) Hypokalemia: Plan: replaced and resolved however again low -- likely from metolazone use Replacement ordered. additional 40meq this AM --> bumex resumed and will order 40meq TID. Monitor mag, wnl BMP in am Plan: VTE Prophylaxis -- Eliquis continue CPAP/BiPAP HS and high flow during the day (BiPAP today/HFNC) Unsure if patient will make it out of hospital, but will continue diuresis as above Titration off of decadron Added budesonide 0.5mg BID, will decrease to 0.25mg BID Sputum cx if able to produce with significant oxygen requirement will need LTAC at this time --> CM following. Updated at bedside if he is uncomfortable or gets into distress then transition to comfort care CAUTIOUS PATIENT HERE >30 DAYS AND MEDICATIONS FELL OFF MAR THIS MORNING, RESUMED BUT WILL NEED TO CONTINUE MONITORING TO ENSURE Admission and Anticipated Discharge Date Admission Date: March 14, 2021 Supervising Physician Co-Signing Physician Notes Attending Attestation: Chart reviewed in detail, care plan d/w PA Beth Momin. I agree w/ the blancas components of her documentation. 75yo male with refractory/severe acute/chronic hypercarbic/hypoxic respiratory failure. Combination of severe COVID-19 pneumonia and acute/chronic diastolic CHF. Remains on max HFNC and BIPAP. Spent the majority of his first 10 days in the hospital on BIPAP/CPAP. Continues to have No meaningful clinical improvement this week. Has been on IV steroids for 3+ weeks. Has been aggressively diuresed his entire stay with net negative I/O balance and weight now 120kg. CT chest results reviewed. Suspect late-stage ARDS from COVID-19. Ongoing pulmonary edema from diastolic CHF also still possible. Agree w/ trial of IV bumex TID but I am not optimistic this will help. Cont to wean steroids. Cont to refine goals of care - prognosis remains very poor. Low threshold for palliative care. Avila Abraham MD Subjective patient evaluated this afternoon on HFNC upset about fluid restriction and reports increased thirst, and discussed will loosen restriction but to limit intake to 2-3 contained fluid/day, and also CHF clinic PA recs for bumex to be continued, which are increased to TID. Discussed decreased steroids but start budesonide nebs for wheezing/resp status CO2 improved and continued diamox NO fever, chills, chest pain, increased shortness of breath. +Cough but not producing sputum at this time. Discussed if able to produce sample would like to eval. Discussed interventions/monitoring through weekend but if no improvement will need to talk next steps/palliative/comfort. Review of Systems Review of Systems: All systems reviewed & are unremarkable except as noted in HPI & below Physical Exam Physical Exam: General: WD/WN, +fatigued, chronically ill appearing, male in bed, no acute distress Eyes anicteric, pupils equal slightly dry mm (improved from day prior). hard of hearing (ear plugs removed) -- used written questions at times to ensure clarity in questions bandage to bridge of nose from prior skin breakdown from BiPAP mask trachea midline without deviation Lungs: diminished in the bases with associated crackles, inspiratory/end expiratory wheezing, on HFNC 35L/min CV: irregularly irregular (92bpm), no m/r/g, venous stasis changes to b/l LE,pedal edema GI: +BS throughout, soft, nontender : Menendez draining clear yellow urine Psych/Neuro: AOx3, flat affect. CN intact, no focal deficits Results & Data Results & Data ([facility]) Vital Signs (Past 12 Hours) Vital Signs Temp Pulse Pulse Pulse Resp BP BP 04/14/21 08:06 96 H 20 04/14/21 07:20 36.4 C L 101 H 18 92/61 L 04/14/21 04:05 88 20 04/13/21 22:40 81 20 04/13/21 22:15 36.6 C 20 92/56 L 04/13/21 21:09 105 H 110/63 Pulse Ox 04/14/21 08:06 89 L 04/14/21 07:20 90 04/14/21 04:05 91 04/13/21 22:40 96 04/13/21 22:15 91 04/13/21 21:09 Laboratory Results 04/14/21 04/14/21 04/14/21 Range/Units 08:00 05:25 05:23 WBC (4.8-10.8) K/uL RBC (4.7-6.1) M/uL Hgb (14.0-18.0) g/dL Hct (42-52) % MCV (80-100) fL MCH (25-34) pg MCHC (32-36) g/dL RDW Std Deviation (36.4-46.3) fL RDW Coeff of Ezekiel (11.5-14.5) % Plt Count (130-400) K/uL MPV (7.4-10.4) fL PT (9.0-12.0) Seconds INR (0.9-1.1) VBG pH 7.37 (7.36-7.41) VBG pCO2 72 H (38-50) mmHg VBG pO2 42 mmHg VBG HCO3 41 mmol/L VBG O2 Saturation 72.5 % VBG Base Excess 12.0 mEq/L Barometric Pressure 728.4 mm/Hg Sodium (136-145) mmol/L Potassium (3.5-5.1) mmol/L Chloride (98-107) mmol/L Carbon Dioxide (21-32) mmol/L Anion Gap (3-11) BUN (6-23) mg/dl Creatinine (0.6-1.4) mg/dl Est Cr Clr Drug Dosing ml/min Est GFR ( Amer) ml/min Est GFR (Non-Af Amer) ml/min BUN/Creatinine Ratio (10-20) Glucose (70-99) mg/dl POC Glucose 70 (70-99) mg/dl Calcium (8.5-10.1) mg/dl Magnesium 2.7 H (1.7-2.4) mg/dl C-Reactive Protein (0-5.00) mg/dl Procalcitonin (0-0.5) ng/ml 04/14/21 04/14/21 04/14/21 Range/Units 05:23 05:23 05:23 WBC (4.8-10.8) K/uL RBC (4.7-6.1) M/uL Hgb (14.0-18.0) g/dL Hct (42-52) % MCV (80-100) fL MCH (25-34) pg MCHC (32-36) g/dL RDW Std Deviation (36.4-46.3) fL RDW Coeff of Ezekiel (11.5-14.5) % Plt Count (130-400) K/uL MPV (7.4-10.4) fL PT 11.3 (9.0-12.0) Seconds INR 1.1 (0.9-1.1) VBG pH (7.36-7.41) VBG pCO2 (38-50) mmHg VBG pO2 mmHg VBG HCO3 mmol/L VBG O2 Saturation % VBG Base Excess mEq/L Barometric Pressure mm/Hg Sodium 140 (136-145) mmol/L Potassium 3.3 L (3.5-5.1) mmol/L Chloride 93 L (98-107) mmol/L Carbon Dioxide 40 H (21-32) mmol/L Anion Gap 7 (3-11) BUN 67 H (6-23) mg/dl Creatinine 0.78 (0.6-1.4) mg/dl Est Cr Clr Drug Dosing 103.1 ml/min Est GFR ( Amer) 103.8 ml/min Est GFR (Non-Af Amer) 89.6 ml/min BUN/Creatinine Ratio 85.9 H (10-20) Glucose 63 L (70-99) mg/dl POC Glucose (70-99) mg/dl Calcium 8.5 (8.5-10.1) mg/dl Magnesium (1.7-2.4) mg/dl C-Reactive Protein 13.37 H (0-5.00) mg/dl Procalcitonin 0.29 (0-0.5) ng/ml 04/14/21 04/13/21 04/13/21 Range/Units 05:23 20:47 17:07 WBC 9.65 (4.8-10.8) K/uL RBC 3.82 L (4.7-6.1) M/uL Hgb 12.4 L (14.0-18.0) g/dL Hct 39.1 L (42-52) % MCV 102.4 H (80-100) fL MCH 32.5 (25-34) pg MCHC 31.7 L (32-36) g/dL RDW Std Deviation 59.0 H (36.4-46.3) fL RDW Coeff of Ezekiel 15.7 H (11.5-14.5) % Plt Count 175 (130-400) K/uL MPV 11.2 H (7.4-10.4) fL PT (9.0-12.0) Seconds INR (0.9-1.1) VBG pH (7.36-7.41) VBG pCO2 (38-50) mmHg VBG pO2 mmHg VBG HCO3 mmol/L VBG O2 Saturation % VBG Base Excess mEq/L Barometric Pressure mm/Hg Sodium (136-145) mmol/L Potassium (3.5-5.1) mmol/L Chloride (98-107) mmol/L Carbon Dioxide (21-32) mmol/L Anion Gap (3-11) BUN (6-23) mg/dl Creatinine (0.6-1.4) mg/dl Est Cr Clr Drug Dosing ml/min Est GFR ( Amer) ml/min Est GFR (Non-Af Amer) ml/min BUN/Creatinine Ratio (10-20) Glucose (70-99) mg/dl POC Glucose 94 103 H (70-99) mg/dl Calcium (8.5-10.1) mg/dl Magnesium (1.7-2.4) mg/dl C-Reactive Protein (0-5.00) mg/dl Procalcitonin (0-0.5) ng/ml 04/13/21 Range/Units 12:20 WBC (4.8-10.8) K/uL RBC (4.7-6.1) M/uL Hgb (14.0-18.0) g/dL Hct (42-52) % MCV (80-100) fL MCH (25-34) pg MCHC (32-36) g/dL RDW Std Deviation (36.4-46.3) fL RDW Coeff of Ezekiel (11.5-14.5) % Plt Count (130-400) K/uL MPV (7.4-10.4) fL PT (9.0-12.0) Seconds INR (0.9-1.1) VBG pH (7.36-7.41) VBG pCO2 (38-50) mmHg VBG pO2 mmHg VBG HCO3 mmol/L VBG O2 Saturation % VBG Base Excess mEq/L Barometric Pressure mm/Hg Sodium (136-145) mmol/L Potassium (3.5-5.1) mmol/L Chloride (98-107) mmol/L Carbon Dioxide (21-32) mmol/L Anion Gap (3-11) BUN (6-23) mg/dl Creatinine (0.6-1.4) mg/dl Est Cr Clr Drug Dosing ml/min Est GFR ( Amer) ml/min Est GFR (Non-Af Amer) ml/min BUN/Creatinine Ratio (10-20) Glucose (70-99) mg/dl POC Glucose 109 H (70-99) mg/dl Calcium (8.5-10.1) mg/dl Magnesium (1.7-2.4) mg/dl C-Reactive Protein (0-5.00) mg/dl Procalcitonin (0-0.5) ng/ml Diagnostic Findings Chest CT 04/13/21 17:08 CT SCAN OF THE CHEST WITH IV CONTRAST CLINICAL HISTORY: Covid pneumonia. Hypoxia. COMPARISON STUDY: Chest x-ray dated 04/12/2021. Chest CT dated 12/19/2018. TECHNIQUE: Following the IV administration of 91 cc of Optiray 320, CT scan of the thorax was performed from the thoracic inlet to the upper abdomen. Images are reviewed in the axial, sagittal, and coronal planes. IV contrast was administered without complication. A dose lowering technique was utilized ad darwin to the principles of ALARA. Examination is significantly degraded by motion artifact, as well as by streak artifact from the arms which could not be elevated above the chest. There is also streak artifact from a right shoulder arthroplasty. CT DOSE: 1163.62 mGy.cm FINDINGS: Thyroid: Imaged portions of the thyroid gland are normal in size and attenuation. Thoracic aorta: There is atherosclerotic calcification of the thoracic aorta, which is normal in caliber and demonstrates standard 3-vessel arch anatomy. No dissection is seen. Pulmonary vasculature: The pulmonary trunk is normal in caliber. There are no filling defects identified in the central pulmonary vessels to indicate pulmonary embolus. Note that this examination was not protocoled for evaluation of the pulmonary arteries. Heart: The heart is enlarged and without pericardial effusion. The coronary arteries are densely calcified. Lungs and pleural spaces: Evaluation of the lung parenchyma is severely degraded by motion artifact. Emphysema is noted. Multifocal airspace opacities are seen throughout both lungs. No pleural effusion or pneumothorax is identified. The trachea and central airways are patent. Parenchyma scarring is noted at both lung bases. Scattered calcified granulomas are noted. Mediastinum: Mildly enlarged right peritracheal node measures up to 11 mm in short axis. Thea: Grossly clear. Axillae: There is no axillary lymphadenopathy. Upper abdomen: The liver is cirrhotic in morphology and heterogeneous in attenuation. There is hypertrophy of the left lobe. A tiny hiatal hernia is observed. A gastric lipoma is incidentally noted on axial image #278. Skeletal structures: The skeletal structures are osteopenic. The skeletal structures are osteopenic. Degenerative change is noted in the left shoulder and thoracic spine. No lytic or blastic bony lesions are seen. A right shoulder arthroplasty is in place. There are healed right-sided rib fractures. IMPRESSION: 1. Severely streak and motion compromised examination. 2. Cardiomegaly and emphysema. 3. Airspace opacities are seen throughout both lungs and likely correspond to the reported history of a viral pneumonia. Correlate clinically for evidence of superimposed ARDS or pulmonary edema. Radiographic follow-up to resolution is recommended. 4. No pleural effusion or pneumothorax is identified. 5. Cirrhotic liver morphology. 6. Additional findings as above. ACT 112: Negative or not required by law. Electronically signed by: Nicolas Duenas M.D. 04/13/2021 6:06 PM PG Care Time/CCT Total # of Minutes Spent Total Time Spent with Patient: Total time spent is greater than 50% in coordination of care (as documented) at patient's floor/unit and/or counseling patient: Coding Level of Care Code 91808 Subseq Hosp Care Lvl 3 Diagnoses Pneumonia due to COVID-19 virus U07.1; J12.82 Acute on chronic respiratory failure with hypoxia and hypercapnia J96.21; J96.22 Acute on chronic diastolic (congestive) heart failure I50.33 Atrial fibrillation, permanent I48.21 CAD (coronary artery disease) I25.10 Associated angina: without angina Coronary Disease-Associated Artery/Lesion type: [place] artery [place] vs. transplanted heart: [place] heart COPD (chronic obstructive pulmonary disease) J44.1 COPD type: COPD with acute exacerbation HTN (hypertension), benign I10 Impaired fasting glucose R73.01 Morbid obesity E66.01 SHIRA (obstructive sleep apnea) G47.33 Hypokalemia E87.6 (1) CAD (coronary artery disease) Associated angina: without angina Coronary Disease-Associated Artery/Lesion type: [place] artery [place] vs. transplanted heart: [place] heart Qualified Code(s): I25.10 - Atherosclerotic heart disease of [place] coronary artery without angina pectoris (2) COPD (chronic obstructive pulmonary disease) COPD type: COPD with acute exacerbation Qualified Code(s): J44.1 - Chronic obstructive pulmonary disease with (acute) exacerbation
[2021-04-14] MEDS: INSULIN ASPART PER UNIT SC SCH ×4 (08:53→22:38)
[2021-04-14] MEDS ORDERED: INSULIN GLARGINE SOLOSTAR 100 UNITS/ML 3 ML PEN SC SCH ×2 (09:00→21:00)
[2021-04-14] MEDS ORDERED: BUMETANIDE 4 MG in SYRINGE 0 ML IV ONE (09:00)
--- NOTE | 2021-04-14 09:18 | XRay Report ---
XR chest 1V portable CLINICAL HISTORY: Follow-up. COMPARISON STUDY: Chest radiograph April 12, 2021. Chest CT April 13, 2021. FINDINGS: Right shoulder arthroplasty is incidentally noted. Left PICC is in place. Incidental note i s made of osteoarthritis of the left glenohumeral joint. Cardiomegaly is unchanged. There is no pneum othorax or pleural effusion. Underlying emphysema is better depicted on chest CT. Bilateral airspace opacities are similar to prior exam. IMPRESSION: 1. No significant change in in bilateral airspace opacities which favor viral pneumonia. 2. Cardiomegaly. ACT 112: Negative or not required by law. Electronically signed by: Zackery Jensen M.D. 04/14/2021 9:16 AM
[2021-04-14] MEDS ORDERED: BUDESONIDE 0.5 MG/2 ML VIAL (PULMICORT) NEB SCH (13:00)
[2021-04-14] MEDS: POTASSIUM CHLORIDE CRTAB 20 MEQ TABCR PO SCH ×2 (14:21→19:38)
[2021-04-14] MEDS: BUMETANIDE 4 MG in SYRINGE 0 ML IV SCH ×2 (14:22→22:20)
[2021-04-14] MEDS ORDERED: BUDESONIDE 0.25 MG/2 ML VIAL (PULMICORT) NEB SCH (19:00)
[2021-04-14] MEDS: ATORVASTATIN 40 MG TAB PO SCH (22:19)
[2021-04-15] MEDS ORDERED: METOPROLOL TARTRATE 25 MG TAB PO ONE (02:59)
[2021-04-15] MEDS ORDERED: METOPROLOL TARTRATE 25 MG TAB PO STA (06:26)
[2021-04-15] MEDS: BUMETANIDE 4 MG in SYRINGE 0 ML IV SCH ×2 (06:44→13:55)
[2021-04-15] MEDS ORDERED: SODIUM CHLORIDE 0.9% 1000ML 500 ML IV ONE (07:32)
[2021-04-15] MEDS: METOPROLOL SUCC 50MG EXT REL TAB PO SCH ×2 (07:48→21:05)
[2021-04-15] MEDS: CYANOCOBALAMIN 500 MCG TABLET (VITAMIN B-12) PO SCH (07:49)
[2021-04-15] MEDS: FERROUS SULFATE 325 MG TAB PO SCH (07:49)
[2021-04-15] MEDS: guaiFENesin 600 MG TABCR PO SCH ×2 (07:49→21:09)
[2021-04-15] MEDS: CEROVITE ADV FORMULA TAB PO SCH (07:49)
[2021-04-15] MEDS: APIXABAN 5 MG TABLET PO SCH ×2 (07:50→21:09)
[2021-04-15] MEDS: PANTOprazole 40 MG TAB PO SCH (07:50)
[2021-04-15] MEDS: UMECLIDINIUM/VILANTEROL 62.5/25MCG 7 PUFFS/INHALER INH SCH (07:50)
[2021-04-15] MEDS: FLUTICASONE FUROATE 100MCG 14 PUFFS/INHALER INH SCH (07:51)
[2021-04-15] MEDS: dexAMETHasone 1 MG in SYRINGE 0 ML IV SCH (07:51)
[2021-04-15] MEDS: POTASSIUM CHLORIDE CRTAB 20 MEQ TABCR PO SCH (07:52)
[2021-04-15] MEDS: TRIAMCINOLONE ACET NASAL SPRAY 10.8ML BTL NAE SCH (07:53)
[2021-04-15] MEDS ORDERED: INSULIN GLARGINE SOLOSTAR 100 UNITS/ML 3 ML PEN SC SCH (09:00)
[2021-04-15] MEDS: INSULIN ASPART PER UNIT SC SCH ×4 (09:27→21:10)
--- NOTE | 2021-04-15 09:43 | Electrocardiogram Report ---
Test Reason : Blood Pressure : / mmHG Vent. Rate : 131 BPM Atrial Rate : 108 BPM P-R Int : 000 ms QRS Dur : 094 ms QT Int : 316 ms P-R-T Axes : 000 -57 157 degrees QTc Int : 466 ms Atrial fibrillation with rapid ventricular response Left anterior fascicular block Possible Anterior infarct (cited on or before 02-FEB-2020) Nonspecific T wave abnormality Abnormal ECG When compared with ECG of 14-MAR-2021 05:54, Nonspecific T wave abnormality now evident in Lateral leads Confirmed by Harry Schmitt [id number]) on 04/15/2021 9:43:06 AM Referred By: REFERRED SELF Confirmed By:Harry Schmitt
[2021-04-15 10:24] LABS: BUN Creatinine Ratio 82.2 (10-20); Calcium 8.4 mg/dl (8.5-10.1); Creatinine Clr Calc Pharmacy 89.4 ml/min; Est GFR (African American) 97.9 ml/min; Est GFR (Non-African American) 84.4 ml/min; Magnesium 2.7 mg/dl (1.7-2.4); Potassium 4.4 mmol/L (3.5-5.1)
[2021-04-15] MEDS: ACETAMINOPHEN 325 MG TAB PO PRN ×3 (11:16→21:09)
--- NOTE | 2021-04-15 16:03 | Hospitalist Progress Note ---
Date of Service April 15, 2021 Assessment & Plan (1) Pneumonia due to COVID-19 virus: Plan: able to stay on high flow, eating and drinking, moving his bowels currently remains comfortable on high flow and CPAP/BiPAP HS for elevated CO2, confirmed on ABG completed 5-day course of Remdesivir. completed 7-day course of IV abx in the event of bacterial superinfection. over 2-3 weeks now of needing max high flow and/or CPAP Had received dexamethasone continuously while inpatient (increased to 10mg 03/24 for ARDS then decreased to 8mg 03/30, 6mg on 04/02 and then continued until decreased to 4mg on 04/11. * --> 1mg IV 04/14 x 2 days then stop Continued hypercapnia, NOW IMPROVED 04/14 (CO2 72 on VBG, 40 on BMP) previously CO2 81 on VBG/CO2 43 on bmp * --> placed on BiPAP * --> continuing diamox 250mg BID * Procal 0.16, no abx at this time CHF with volume overload from continuous steroids (acute on chronic diastolic CHF) * metolazone started 5mg on 04/08 and patient received daily though 04/11 and diamox 250mg BID x 3 days started to help with CO2 retention -- remains elevated * At baseline weight and will hold further bumex/metolazone (metolazone but on hold 04/12), hold further K supp (did get 60meq total today, for K 3.3 as was initially getting bumex, since placed on hold) * Cr stable 04/15 Tachycardia (afib/rvr to 140-150s this morning), admin 500cc bolus and pressures improved. AM metoprolol given -- (had been held last evening for low BP and 25mg x 1 was ordered by overnight resident) and is on metoprolol succinate 200mg BID [employer] Procal still <0.05, no abx. Cough but no sputum --> cx if able to produce, order in system. CT Chest last evening with airspace opacities are seen throughout both lungs and likely correspond to the reported history of a viral pneumonia. Correlate clinically for evidence of superimposed ARDS or pulmonary edema. Radiographic follow-up to resolution is recommended. Repeat cxr no significant change Switched bumex back to 4mg IV BID from TID, but may need to hold for today and resume in AM vs next days. BNP only elevated to 147 compared to prior 1618 on admission 03/14 Fluid restriction 2L/daily -- may need to tighten but got angry even at request 04/14. Placed back on home inhalers as budesonide worsening tachycardia/causing hypotension as result CO2 finally improved with use of BiPAP for majority of 04/14 and completion of diamox x 6 doses --> 36 on am chemistry compared to previous 43 Decadron completed 04/15, no further doses Pulm consulted --?need for PCP tx LTAC unable to take unless 60% FiO2 or less but they are able to accommodate 30- 40L/min HFNC --> DISCUSSED WITH RT IN ATTEMPTS AT WEANING --> Long discussions with patient/ and do not believe Mr Anderson may win this valles/overcome as has been on continuous BiPAP again for days, additional medications for CO2 retention/hypercapnic resp failure and not much improvement, actually worsening on most recent CT Confirmed he does not want intubated, he understands it would not offer him any benefit If he gets into respiratory distress he wants to be on comfort care. However, in meantime, goal to improve hypercapnic state and attempt to wean for LTAC, but understands if no improvement over next couple days with above changes will need continued conversations (2) Acute on chronic respiratory failure with hypoxia and hypercapnia: Plan: acute component - now 4 weeks here, with acute on chronic diastolic CHF (now ~dry weight) chronic - COPD, usually on 4 L NC O2 at home. Weaning steroids as above -- finished course 04/14 DIuresis until Cr bumps --> backed to 4mg IV BID as above wt 120kg -- ask to recheck if able CRP up to 13.37 CT chest with superimposed ARDS/edema Diamox 250mg BID x 6 doses --> CO2 on chemistry this am actually improved to 36. To utilize BiPAP when sleeping/napping given ongoing retention issues Procal remains <0.5, no abx per pulm unless >0.5 on previous day discussions, consult in place for additional res Sputum cx if able to produce Nebs prn BiPAP napping/HS (3) Acute on chronic diastolic (congestive) heart failure: Plan: see above under #2 continue to monitor volume status -- appears dry but diuresing until Cr bumps as above to see about any benefit at all wt 120.4kg -- previous dry wt but expected to be lower. TOtal I/O show cumulative net neg 39L for entire stay, however unsure of how accurate Consider bumex gtt for slower rate to prevent episodes of hypotension (4) Atrial fibrillation, permanent: Plan: ELEVATED OVERNIGHT --> UP TO 150-160S THIS AM. missed evening dose 200mg given hypotension (78/35 last evening) , given this morning and will continue to monitor. No cp/palpitations/lightheadedness 500CC BOLUS, rates improved to 110-120s. cont metoprolol 200mg BID cont eliquis BID currently on medical status consider bumex gtt over BID dosing as above for diuresis to prevent hypo no further budesonide (5) CAD (coronary artery disease): Plan: no ischemic sx's at this time cont Eliquis, statin, BB (6) COPD (chronic obstructive pulmonary disease): Plan: cont bronchodilators, steroids, home inhalers, etc see above (7) HTN (hypertension), benign: Plan: controlled, episodes of hypotension 2nd to diuresis/afib rvr 2nd to budesonide (since d/c'd) (8) Impaired fasting glucose: Plan: last HbA1C < 6% [id number], because of steroids, glucoses had been high while on increased doses of such and long taper, finished 04/15 Lantus held last evening, reduced to 5u BID. Will hold evening dose and continue SSI for now Monitor BSGs (9) Morbid obesity: Plan: BMI 44.4 (10) SHIRA (obstructive sleep apnea): Plan: typically on CPAP at home BiPAP as above for hypercap resp failure (11) Hypokalemia: Plan: replacement ordered, resolved scheduled while on bumex, k 4.4 this morning and will hold evening dose, resume in AM and monitor BMP Plan: VTE Prophylaxis -- Eliquis with significant oxygen requirement will need LTAC at this time --> CM following. Updated at bedside and again today via phone this morning if he is uncomfortable or gets into distress then transition to comfort care CAUTIOUS PATIENT HERE >30 DAYS AND MEDICATIONS FELL OFF MAR THIS MORNING, RESUMED BUT WILL NEED TO CONTINUE MONITORING TO ENSURE Admission and Anticipated Discharge Date Admission Date: March 14, 2021 Subjective patient seen by attending this morning initially, given 500cc bolus, HR to the 120s from 140s. Given AM medications. No acute distress on exam, but on HFNC. States he is fatigued, ready for nap and to use bedpan. Discussed BiPAP today and when sleeping/napping and asked if that is the way he wants to be, on BiPAP continuously, and he states "whatever". Withdrawn today and did discuss he likely may never recover from COVID or make it out of the hospital. Discussed/reviewed with on phone and encouraged visitation. SHe is having hard time coming to terms but to have discussions in next day or two about making comfortable however yarelis declined wanting morphine/comfort at this time. Still with cough, not very productive. Discussed with RT to place back on BiPAP when sleeping/napping. CO2 is improved today, Cr stable and will continue diuresis as planned for any possible benefit but back down to BID dosing given hypotension/tachycardia (HR 110s) Per RN, patient ripped off HFNC this morning, replaced. NUrsing staff noting patient with definite decline in mood overall given whole clinical picture. to visit this afternoon. Review of Systems Review of Systems: All systems reviewed & are unremarkable except as noted in HPI & below Physical Exam Physical Exam: General: WD/WN, +fatigued, chronically ill appearing, male in bed, no acute distress Eyes anicteric, pupils equal mmm. hard of hearing (ear plugs removed) -- used written questions at times to ensure clarity in questions at times bandage to bridge of nose from prior skin breakdown from BiPAP mask trachea midline without deviation Lungs: diminished in the bases with associated scattered crackles throughout, inspiratory/expiratory wheezing, on HFNC @ 40l/min CV: irregularly irregular (112bpm), no m/r/g able to be appreciated, venous stasis changes to b/l LE, +pedal edema GI: +BS throughout, soft, nontender : Menendez draining clear yellow urine Psych/Neuro: AOx3, flat affect. CN intact, no focal deficits Results & Data Results & Data ([facility]) Vital Signs (Past 12 Hours) Vital Signs Temp Pulse Pulse Pulse Resp BP Pulse Ox 04/15/21 15:32 119 H 31 H 91 04/15/21 11:02 124 H 22 90 04/15/21 09:29 128 H 89 L 04/15/21 07:35 96 H 20 88 L 04/15/21 07:08 142 H 89 L 04/15/21 06:58 36.6 C 105 H 24 88/46 L 90 04/15/21 05:52 131 H 04/15/21 04:23 130 H 25 H 90 Laboratory Results 04/15/21 04/15/21 04/15/21 Range/Units 12:31 08:43 07:52 Sodium 143 (136-145) mmol/L Potassium 4.4 (3.5-5.1) mmol/L Chloride 100 (98-107) mmol/L Carbon Dioxide 36 H (21-32) mmol/L Anion Gap 7 (3-11) BUN 74 H (6-23) mg/dl Creatinine 0.90 (0.6-1.4) mg/dl Est Cr Clr Drug Dosing 89.4 ml/min Est GFR ( Amer) 97.9 ml/min Est GFR (Non-Af Amer) 84.4 ml/min BUN/Creatinine Ratio 82.2 H (10-20) Glucose 75 (70-99) mg/dl POC Glucose 116 H 85 (70-99) mg/dl Calcium 8.4 L (8.5-10.1) mg/dl Magnesium 2.7 H (1.7-2.4) mg/dl 04/14/21 04/14/21 Range/Units 20:54 17:18 Sodium (136-145) mmol/L Potassium (3.5-5.1) mmol/L Chloride (98-107) mmol/L Carbon Dioxide (21-32) mmol/L Anion Gap (3-11) BUN (6-23) mg/dl Creatinine (0.6-1.4) mg/dl Est Cr Clr Drug Dosing ml/min Est GFR ( Amer) ml/min Est GFR (Non-Af Amer) ml/min BUN/Creatinine Ratio (10-20) Glucose (70-99) mg/dl POC Glucose 85 104 H (70-99) mg/dl Calcium (8.5-10.1) mg/dl Magnesium (1.7-2.4) mg/dl PG Care Time/CCT Total # of Minutes Spent Total Time Spent with Patient: Total time spent is greater than 50% in coordination of care (as documented) at patient's floor/unit and/or counseling patient: Coding Level of Care Code 29717 Subseq Hosp Care Lvl 3 Diagnoses Pneumonia due to COVID-19 virus U07.1; J12.82 Acute on chronic respiratory failure with hypoxia and hypercapnia J96.21; J96.22 Acute on chronic diastolic (congestive) heart failure I50.33 Atrial fibrillation, permanent I48.21 CAD (coronary artery disease) I25.10 Associated angina: without angina Coronary Disease-Associated Artery/Lesion type: [place] artery [place] vs. transplanted heart: [place] heart COPD (chronic obstructive pulmonary disease) J44.1 COPD type: COPD with acute exacerbation HTN (hypertension), benign I10 Impaired fasting glucose R73.01 Morbid obesity E66.01 SHIRA (obstructive sleep apnea) G47.33 Hypokalemia E87.6 (1) CAD (coronary artery disease) Associated angina: without angina Coronary Disease-Associated Artery/Lesion type: [place] artery [place] vs. transplanted heart: [place] heart Qualified Code(s): I25.10 - Atherosclerotic heart disease of [place] coronary artery without angina pectoris (2) COPD (chronic obstructive pulmonary disease) COPD type: COPD with acute exacerbation Qualified Code(s): J44.1 - Chronic obstructive pulmonary disease with (acute) exacerbation
[2021-04-15] MEDS: ATORVASTATIN 40 MG TAB PO SCH (21:09)
[2021-04-16] MEDS: ACETAMINOPHEN 325 MG TAB PO PRN ×3 (04:41→19:21)
[2021-04-16] MEDS: METOPROLOL SUCC 50MG EXT REL TAB PO SCH ×2 (06:33→21:50)
--- NOTE | 2021-04-16 07:49 | Hospitalist Progress Note ---
Date of Service April 16, 2021 Assessment & Plan (1) Pneumonia due to COVID-19 virus: Plan: able to stay on high flow, eating and drinking, moving his bowels currently remains comfortable on high flow and CPAP/BiPAP HS for elevated CO2, confirmed on ABG completed 5-day course of Remdesivir. completed 7-day course of IV abx in the event of bacterial superinfection. over 2-3 weeks now of needing max high flow and/or CPAP Had received dexamethasone continuously while inpatient (increased to 10mg 03/24 for ARDS then decreased to 8mg 03/30, 6mg on 04/02 and then continued until decreased to 4mg on 04/11, which was decreased to 2mg after 2 days, then 1mg x 2, then stop. Now completed Has been tachycardic, afib/rvr (afib baseline) and not receieved metoprolol at times due to low BP --> order to give this AM for BP 100/[address] HR [address] Chest with * airspace opacities are seen throughout both lungs and likely correspond to the reported history of a viral pneumonia. * Correlate clinically for evidence of superimposed ARDS or pulmonary edema. Radiographic follow-up to resolution is recommended. * Repeat cxr no significant change CHF * -- volume overload from steroids. Metolazone give 5mg x 3 doses. Net neg 9.9L and volume contracted. Holding further, switched bumex to TID but backed to BID for today. Consider bumex gtt for slower infusion/prevention of hypotension. * Received 500cc bolus for hypotension AM 04/15 * Fluid restriction 2L/daily -- may need to tighten but got angry even at request 04/14. Placed back on home inhalers as budesonide worsening tachycardia/causing hypotension as result CO2 finally improved with use of BiPAP for majority of 04/14,04/15, 04/16 and completion of diamox x 6 doses --> 36 on am chemistry compared to previous 43 and remains stable at 36 on AM chemistry Pulm consulted * --?need for PCP tx. Will discuss with supervising about trying this to see if any improvement. Will order to see as no other interventions and CRP trending up but still <0.5. CRP 17.2 * --> START BACTRIM 1 DS TABLET DAILY TO SEE IF ANY POSSIBLE IMPROVEMENT -- MONITOR FOR RESPONSE. NO FURTHER POTASSIUM SUPPLEMENTATION AT THIS TIME, K 4.6 ON AM LABS, ON BUMEX AND WILL CONTINUE TO MONITOR LTAC unable to take unless 60% FiO2 or less but they are able to accommodate 30- 40L/min HFNC --> Long discussions with patient/ and do not believe Mr Anderson may win this valles/overcome as has been on continuous BiPAP again for days, additional medications for CO2 retention/hypercapnic resp failure and not much improvement, actually worsening on most recent CT --> Possible d/c home on comfort with BiPAP if able to accommodate. Discussed wi th . Patient needing time at moment to think about it Confirmed he does not want intubated, he understands it would not offer him any benefit If he gets into respiratory distress he wants to be on comfort care. However, in meantime, goal to improve hypercapnic state and attempt to wean for LTAC, but understands if no improvement over next couple days with above changes will need continued conversations (2) Acute on chronic respiratory failure with hypoxia and hypercapnia: Plan: acute component - now 4 weeks here, with acute on chronic diastolic CHF (now ~dry weight) chronic - COPD, usually on 4 L NC O2 at home. Weaning steroids as above -- finished course 04/14 Bumex BID changed to bumex gtt 0.5mg/hr for total 12mg daily to prevent worsening hypotension and not receiving metoprolol until scr bumps, stable on am labs .097 CRP elevated 17, procal .38 CT chest with superimposed ARDS/edema Already received diamox 250mg BID x 6 doses, continued BiPAP use. CO2 on chemistry remained stable on past two days Sputum cx if able to produce Starting bactrim as last ditch effort to see if any improvement for possible PCP pneumonia as had been on high dose steroids for almost a month now Continue BiPAP napping/HS and HFNC when up/eating Continue to monitor Continued discussions regarding comfort (3) Acute on chronic diastolic (congestive) heart failure: Plan: see above under #2 continue to monitor volume status wt 120.4kg -- previous dry wt but expected to be lower. Appears dry/volume contracted however Cr stable with diuresis and will continue until Cr bumps to see if any benefit given edema on CT/slightly bumped BNP but improved from march Bumex gtt as above Monitor (4) Atrial fibrillation, permanent: Plan: ELEVATED OVERNIGHT --> UP TO 150-160S THIS AM. missed evening dose 200mg given hypotension AGAIN however BP was 90-100s systolic Asked RN to administer metoprol this morning --> HRs 120s but no cp/increased sob reported Bumex transitioned to gtt as above to prevent hypotension and allow for diuresis cont metoprolol 200mg BID and changed parameters to give as long as systolic BP >95 cont eliquis BID currently on medical status (5) CAD (coronary artery disease): Plan: no ischemic sx's at this time cont Eliquis, statin, BB (6) COPD (chronic obstructive pulmonary disease): Plan: cont bronchodilators, steroids, home inhalers, etc see above (7) HTN (hypertension), benign: Plan: controlled, episodes of hypotension 2nd to diuresis/afib rvr 2nd to budesonide (since d/c'd) bumex changed to gtt as above to prevent worsening hypotension. cr stable monitor bps (8) Impaired fasting glucose: Plan: last HbA1C < 6% [id number], because of steroids, glucoses had been high while on increased doses of such and long taper, finished 04/15 Lantus discontinued as no longer on steroids and BSgs acceptable Monitor (9) Morbid obesity: Plan: BMI 44.4 (10) SHIRA (obstructive sleep apnea): Plan: typically on CPAP at home BiPAP as above for hypercap resp failure (11) Hypokalemia: Plan: replacement ordered, resolved. No further replacement as K 4.6 on am labs and placed on bactrim. Monitor BMP in AM on bumex gtt Plan: VTE Prophylaxis -- Eliquis with significant oxygen requirement will need LTAC at this time --> CM following. Updated at bedside days prior and again today via phone this morning if he is uncomfortable or gets into distress then transition to comfort care but she is ok with bactrim/bumex gtt and monitoring response overnight CAUTIOUS PATIENT HERE >30 DAYS AND MEDICATIONS FELL DAYS PRIOR, RESUMED BUT WILL NEED TO CONTINUE MONITORING TO ENSURE Admission and Anticipated Discharge Date Admission Date: March 14, 2021 Subjective patient evaluated this morning, very fatigued/weak. using Bipap HS/napping No acute distress but tachpneic. Discussed with and she is visiting early -- cleared with coordinator. Discussed if possible can consider d/c on hospice/Bipap if able to accommodate. Bicarb stable with continued BiPAP use although unclear if patient actually agreeable/understanding prognosis and stated "whatever" if asked about being on BiPAP 22/10. Switched to bumex gtt to prevent hypotension so he doesn't miss his metoprolol as asked RN to administer early this morning as missed evening dose. No CP/sob reported. CRP further elevated -- discussed grave prognosis with . She is agreeable to bactrim if we would like to try to see if effective. Review of Systems Review of Systems: All systems reviewed & are unremarkable except as noted in HPI & below Physical Exam Physical Exam: General: WD/WN, +fatigued, chronically ill appearing, male in bed, no acute distress but very fatigued, on BiPAP Eyes anicteric, pupils equal mmm. hard of hearing (ear plugs removed) -- used written questions at times to ensure clarity in questions at times bandage to bridge of nose from prior skin breakdown from BiPAP mask trachea midline without deviation Lungs: diminished in the bases with associated scattered crackles throughout, inspiratory/expiratory wheezing, on HFNC @ 40l/min CV: irregularly irregular (120bpm), no m/r/g able to be appreciated, venous stasis changes to b/l LE, +pedal edema GI: +BS throughout, soft, nontender : Menendez draining yellow urine Psych/Neuro: AOx3, flat affect. CN intact, no focal deficits Results & Data Results & Data ([facility]) Vital Signs (Past 12 Hours) Vital Signs Temp Pulse Pulse Resp BP Pulse Ox 04/16/21 03:22 125 H 28 H 92 04/15/21 23:57 36.8 C 127 H 20 100/62 04/15/21 23:08 127 H 37 H 92 Laboratory Results 04/16/21 04/16/21 04/16/21 Range/Units 11:59 09:53 09:53 Sodium (136-145) mmol/L Potassium (3.5-5.1) mmol/L Chloride (98-107) mmol/L Carbon Dioxide (21-32) mmol/L Anion Gap (3-11) BUN (6-23) mg/dl Creatinine (0.6-1.4) mg/dl Est Cr Clr Drug Dosing ml/min Est GFR ( Amer) ml/min Est GFR (Non-Af Amer) ml/min BUN/Creatinine Ratio (10-20) Glucose (70-99) mg/dl POC Glucose 139 H (70-99) mg/dl Calcium (8.5-10.1) mg/dl Iron Pending TIBC Pending Unsaturated IBC Pending Transferrin % Sat Pending C-Reactive Protein (0-5.00) mg/dl Procalcitonin 0.38 (0-0.5) ng/ml 04/16/21 04/16/21 04/15/21 Range/Units 09:53 08:26 20:55 Sodium 144 (136-145) mmol/L Potassium 4.6 (3.5-5.1) mmol/L Chloride 100 (98-107) mmol/L Carbon Dioxide 36 H (21-32) mmol/L Anion Gap 8 (3-11) BUN 80 H (6-23) mg/dl Creatinine 0.97 (0.6-1.4) mg/dl Est Cr Clr Drug Dosing 82.9 ml/min Est GFR ( Amer) 89.4 ml/min Est GFR (Non-Af Amer) 77.1 ml/min BUN/Creatinine Ratio 82.5 H (10-20) Glucose 119 H (70-99) mg/dl POC Glucose 130 H 188 H (70-99) mg/dl Calcium 8.7 (8.5-10.1) mg/dl Iron TIBC Unsaturated IBC Transferrin % Sat C-Reactive Protein 17.28 H (0-5.00) mg/dl Procalcitonin (0-0.5) ng/ml 04/15/21 Range/Units 17:00 Sodium (136-145) mmol/L Potassium (3.5-5.1) mmol/L Chloride (98-107) mmol/L Carbon Dioxide (21-32) mmol/L Anion Gap (3-11) BUN (6-23) mg/dl Creatinine (0.6-1.4) mg/dl Est Cr Clr Drug Dosing ml/min Est GFR ( Amer) ml/min Est GFR (Non-Af Amer) ml/min BUN/Creatinine Ratio (10-20) Glucose (70-99) mg/dl POC Glucose 148 H (70-99) mg/dl Calcium (8.5-10.1) mg/dl Iron TIBC Unsaturated IBC Transferrin % Sat C-Reactive Protein (0-5.00) mg/dl Procalcitonin (0-0.5) ng/ml PG Care Time/CCT Total # of Minutes Spent Total Time Spent with Patient: Total time spent is greater than 50% in coordination of care (as documented) at patient's floor/unit and/or counseling patient: Coding Level of Care Code 46962 Subseq Hosp Care Lvl 3 Diagnoses Pneumonia due to COVID-19 virus U07.1; J12.82 Acute on chronic respiratory failure with hypoxia and hypercapnia J96.21; J96.22 Acute on chronic diastolic (congestive) heart failure I50.33 Atrial fibrillation, permanent I48.21 CAD (coronary artery disease) I25.10 Associated angina: without angina Coronary Disease-Associated Artery/Lesion type: [place] artery [place] vs. transplanted heart: [place] heart COPD (chronic obstructive pulmonary disease) J44.1 COPD type: COPD with acute exacerbation HTN (hypertension), benign I10 Impaired fasting glucose R73.01 Morbid obesity E66.01 SHIRA (obstructive sleep apnea) G47.33 Hypokalemia E87.6 (1) CAD (coronary artery disease) Associated angina: without angina Coronary Disease-Associated Artery/Lesion type: [place] artery [place] vs. transplanted heart: [place] heart Qualified Code(s): I25.10 - Atherosclerotic heart disease of [place] coronary artery without angina pectoris (2) COPD (chronic obstructive pulmonary disease) COPD type: COPD with acute exacerbation Qualified Code(s): J44.1 - Chronic obstructive pulmonary disease with (acute) exacerbation
[2021-04-16] MEDS ORDERED: POTASSIUM CHLORIDE CRTAB 20 MEQ TABCR PO SCH (09:00)
[2021-04-16] MEDS ORDERED: BUMETANIDE 4 MG in SYRINGE 0 ML IV SCH (09:00)
[2021-04-16] MEDS: PANTOprazole 40 MG TAB PO SCH (09:16)
[2021-04-16] MEDS: CEROVITE ADV FORMULA TAB PO SCH (09:17)
[2021-04-16] MEDS: CYANOCOBALAMIN 500 MCG TABLET (VITAMIN B-12) PO SCH (09:17)
[2021-04-16] MEDS: FLUTICASONE FUROATE 100MCG 14 PUFFS/INHALER INH SCH (09:17)
[2021-04-16] MEDS: APIXABAN 5 MG TABLET PO SCH ×2 (09:17→19:21)
[2021-04-16] MEDS: FERROUS SULFATE 325 MG TAB PO SCH (09:17)
[2021-04-16] MEDS: guaiFENesin 600 MG TABCR PO SCH ×2 (09:17→19:22)
[2021-04-16] MEDS: UMECLIDINIUM/VILANTEROL 62.5/25MCG 7 PUFFS/INHALER INH SCH (09:18)
[2021-04-16] MEDS: TRIAMCINOLONE ACET NASAL SPRAY 10.8ML BTL NAE SCH (09:19)
[2021-04-16] MEDS: INSULIN ASPART PER UNIT SC SCH ×4 (09:32→21:51)
[2021-04-16 10:54] LABS: BUN Creatinine Ratio 82.5 (10-20); Calcium 8.7 mg/dl (8.5-10.1); Creatinine Clr Calc Pharmacy 82.9 ml/min; Est GFR (African American) 89.4 ml/min; Est GFR (Non-African American) 77.1 ml/min; Potassium 4.6 mmol/L (3.5-5.1)
[2021-04-16] MEDS ORDERED: SULFAMETHOXAZOLE/TRIMETHOPRIM DS 800/160MG TAB PO ONE (12:39)
[2021-04-16] MEDS: BUMETANIDE 10 MG in DEXTROSE 5% 10 ML IV SCH (13:11)
[2021-04-16 13:28] LABS: Iron 45 mcg/dl (35-175); Total Iron Binding Cap Calc 220 mcg/dl (250-450); Transferrin (FE) Percent Satur 20 % (20-50); Unsaturated Iron Binding Cap 175 mcg/dl (155-355)
[2021-04-16] MEDS: ATORVASTATIN 40 MG TAB PO SCH (19:22)
[2021-04-17] MEDS: ACETAMINOPHEN 325 MG TAB PO PRN ×4 (00:36→18:20)
[2021-04-17] MEDS: BUMETANIDE 10 MG in DEXTROSE 5% 10 ML IV SCH (06:31)
[2021-04-17 06:43] LABS: BUN Creatinine Ratio 81.2 (10-20); Calcium 8.5 mg/dl (8.5-10.1); Creatinine Clr Calc Pharmacy 79.6 ml/min; Est GFR (African American) 85.1 ml/min; Est GFR (Non-African American) 73.4 ml/min
[2021-04-17] MEDS: SULFAMETHOXAZOLE/TRIMETHOPRIM DS 800/160MG TAB PO SCH (08:11)
[2021-04-17] MEDS: UMECLIDINIUM/VILANTEROL 62.5/25MCG 7 PUFFS/INHALER INH SCH (08:11)
[2021-04-17] MEDS: THIAMINE HCL 100 MG TAB PO SCH (08:11)
[2021-04-17] MEDS: PANTOprazole 40 MG TAB PO SCH (08:11)
[2021-04-17] MEDS: APIXABAN 5 MG TABLET PO SCH ×2 (08:11→21:30)
[2021-04-17] MEDS: CEROVITE ADV FORMULA TAB PO SCH (08:11)
[2021-04-17] MEDS: guaiFENesin 600 MG TABCR PO SCH ×2 (08:11→21:30)
[2021-04-17] MEDS: FLUTICASONE FUROATE 100MCG 14 PUFFS/INHALER INH SCH (08:11)
[2021-04-17] MEDS: FERROUS SULFATE 325 MG TAB PO SCH (08:11)
[2021-04-17] MEDS: CYANOCOBALAMIN 500 MCG TABLET (VITAMIN B-12) PO SCH (08:11)
[2021-04-17] MEDS: TRIAMCINOLONE ACET NASAL SPRAY 10.8ML BTL NAE SCH (08:12)
[2021-04-17] MEDS: METOPROLOL SUCC 50MG EXT REL TAB PO SCH ×2 (08:18→21:31)
[2021-04-17] MEDS: INSULIN ASPART PER UNIT SC SCH ×4 (09:01→21:29)
[2021-04-17 12:11] LABS: C Reactive Protein 13.37 mg/dl (0-0.5)
[2021-04-17 12:44] LABS: C Reactive Protein 17.28 mg/dl (0-0.5)
--- NOTE | 2021-04-17 13:20 | Hospitalist Progress Note ---
Date of Service April 17, 2021 Assessment & Plan (1) Pneumonia due to COVID-19 virus: Plan: - Remains on HFNC with FiO2 100% with intermittent desats into 80s with minimal exertion -- Has required 2-3 weeks of max high flow or CPAP/BiPAP - Completed Remdesivir and 7-day Abx course (Zithromax/Cefepime); Completed Dexamethasone with a taper for prolonged coverage and now complete - Chest CT * airspace opacities are seen throughout both lungs and likely correspond to the reported history of a viral pneumonia. * Correlate clinically for evidence of superimposed ARDS or pulmonary edema. Radiographic follow-up to resolution is recommended. * Repeat cxr no significant change - Sputum Cx - gram neg bacilli x 2 organisms - follow culture - Started Bactrim and will monitor for any improvement - Procal remains below threshold; CRP 17.2 - CO2 improved with BiPAP for majority of 14,15, 16th and completion of Diamox - VBG improved - Continue home inhalers LTAC unable to take unless 60% FiO2 or less but they are able to accommodate 30- 40L/min HFNC --> Long discussions with patient/ by previous providers and do not believe Mr Anderson may win this valles/overcome as has been on continuous BiPAP again for days, additional medications for CO2 retention/hypercapnic resp failure and not much improvement, actually worsening on most recent CT --> Possible d/c home on comfort with BiPAP if able to accommodate. Discussed with . Patient needing time at moment to think about it Confirmed he does not want intubated, he understands it would not offer him any benefit If he gets into respiratory distress he wants to be on comfort care. However, in meantime, goal to improve hypercapnic state and attempt to wean for LTAC, but understands if no improvement over next couple days with above changes will need continued conversations (2) Acute on chronic respiratory failure with hypoxia and hypercapnia: Plan: - Acute related to CHF (now at dry weight); chronic related to COPD - usually on 4 L NC at home - Chest CT - superimposed ARDS/Edema - Completed steroid course as above - Continue Bumex gtt - total of 12 mg daily -- Hopefully can reduce hypotension to allow for metoprolol dosing but BPs are giving limitations - Can continue BiPAP napping/HS and HFNC with up/eating - Further treatment as above - Continue to monitor; Continued discussions regarding comfort (3) Acute on chronic diastolic (congestive) heart failure: Plan: - Remains at an overall negative fluid balance per I&Os; Wt 120.4 kg (possibly dry weight) - Bumex gtt as above; will remove fluid restriction as he appears dry and with the high flow having a lot of dry mouth - Continue to monitor volume status - will monitor renal function with diruresis (4) Atrial fibrillation, permanent: Plan: - Remains elevated (100-130 bpm) - BPs limited Metoprolol usage - will continue at current dose of 200 mg BID (parameters for systolic > 95) - Continue Eliquis BID (5) CAD (coronary artery disease): Plan: - no ischemic sx's at this time - cont Eliquis, statin, BB (6) COPD (chronic obstructive pulmonary disease): Plan: - As above (7) HTN (hypertension), benign: Plan: - Controlled, episodes of hypotension 2/2 diuresis/afib RVR (8) Impaired fasting glucose: Plan: - last HbA1C < 6% - Due to steroids was initially more elevated but stabilized - will slightly loosen SSI parameters (9) Morbid obesity: Plan: - Noted; BMI 44.4 (10) SHIRA (obstructive sleep apnea): Plan: - typically on CPAP at home; BiPAP as above for hypercap resp failure Plan: VTE Prophylaxis -- Jennifer Continues with significant oxygen requirement and will need LTAC at this time --> CM following - currently FiO2 requirements too much for LTAC if he is uncomfortable or gets into distress then transition to comfort care but she is ok with bactrim/bumex gtt and monitoring response overnight CAUTIOUS PATIENT HERE >30 DAYS AND MEDICATIONS FELL DAYS PRIOR, RESUMED BUT WILL NEED TO CONTINUE MONITORING TO ENSURE Admission and Anticipated Discharge Date Admission Date: March 14, 2021 Subjective No acute events overnight. Remains on high flow but would take this off when trying to talk with him because he couldn't hear. He would desaturate but seems to rebound quickly once high flow replaced. His only complaint is of fluid restriction and will remove this. He continues to be tachy but BP limited medication use. He verablizes no other complaints Review of Systems Review of Systems: All systems reviewed & are unremarkable except as noted in Subjective Physical Exam Physical Exam: PHYSICAL EXAM General Appearance: WDWN in NAD but fatigued who is A&O x 3 HEENT: Head is normocephalic/atraumatic; Hard of hearing Neck: Supple; Trachea midline Heart: Irregulary irregular; tachy with no M/G/R Lungs: Dimished with scatttered wheeze; HFNC in place Abdomen: Soft, non-tender, non-distended; Positive BS x 4 quadrants Extremities: Neg cyanosis or edema Neurological: Speech clear; Neg focal neurologic deficits Psychiatric: Appropriate mood/affect Skin: Normal Color; Warm/Dr Results & Data Results & Data ([facility]) Vital Signs (Past 12 Hours) Vital Signs Temp Pulse Resp BP Pulse Ox 04/17/21 10:34 123 H 26 H 87 L 04/17/21 08:45 36.6 C 136 H 20 131/64 91 04/17/21 08:18 95/53 L 04/17/21 07:36 115 H 24 90 04/17/21 03:25 128 H 16 88 L PG Care Time/CCT Total # of Minutes Spent Total Time Spent with Patient: Total time spent is greater than 50% in coordination of care (as documented) at patient's floor/unit and/or counseling patient: Coding Level of Care Code 63646 Subseq Hosp Care Lvl 3 Diagnoses Pneumonia due to COVID-19 virus U07.1; J12.82 Acute on chronic respiratory failure with hypoxia and hypercapnia J96.21; J96.22 Acute on chronic diastolic (congestive) heart failure I50.33 Atrial fibrillation, permanent I48.21 CAD (coronary artery disease) I25.10 Associated angina: without angina Coronary Disease-Associated Artery/Lesion type: [place] artery [place] vs. transplanted heart: [place] heart COPD (chronic obstructive pulmonary disease) J44.1 COPD type: COPD with acute exacerbation HTN (hypertension), benign I10 Impaired fasting glucose R73.01 Morbid obesity E66.01 SHIRA (obstructive sleep apnea) G47.33 (1) CAD (coronary artery disease) Associated angina: without angina Coronary Disease-Associated Artery/Lesion type: [place] artery [place] vs. transplanted heart: [place] heart Qualified Code(s): I25.10 - Atherosclerotic heart disease of [place] coronary artery without angina pectoris (2) COPD (chronic obstructive pulmonary disease) COPD type: COPD with acute exacerbation Qualified Code(s): J44.1 - Chronic obstructive pulmonary disease with (acute) exacerbation
[2021-04-17] MEDS: ATORVASTATIN 40 MG TAB PO SCH (21:31)
[2021-04-18] MEDS: BUMETANIDE 10 MG in DEXTROSE 5% 10 ML IV SCH (01:18)
[2021-04-18] MEDS: ACETAMINOPHEN 325 MG TAB PO PRN ×3 (02:50→14:17)
[2021-04-18 05:42] LABS: BUN Creatinine Ratio 69.3 (10-20); Calcium 8.3 mg/dl (8.5-10.1); Creatinine Clr Calc Pharmacy 63.3 ml/min; Est GFR (African American) 64.5 ml/min; Est GFR (Non-African American) 55.7 ml/min
[2021-04-18] MEDS: FERROUS SULFATE 325 MG TAB PO SCH (08:08)
[2021-04-18] MEDS: APIXABAN 5 MG TABLET PO SCH ×2 (08:08→19:50)
[2021-04-18] MEDS: CYANOCOBALAMIN 500 MCG TABLET (VITAMIN B-12) PO SCH (08:08)
[2021-04-18] MEDS: METOPROLOL SUCC 50MG EXT REL TAB PO SCH ×2 (08:09→19:50)
[2021-04-18] MEDS: CEROVITE ADV FORMULA TAB PO SCH (08:09)
[2021-04-18] MEDS: PANTOprazole 40 MG TAB PO SCH (08:09)
[2021-04-18] MEDS: guaiFENesin 600 MG TABCR PO SCH ×2 (08:09→19:50)
[2021-04-18] MEDS: SULFAMETHOXAZOLE/TRIMETHOPRIM DS 800/160MG TAB PO SCH (08:09)
[2021-04-18] MEDS: THIAMINE HCL 100 MG TAB PO SCH (08:09)
[2021-04-18] MEDS: UMECLIDINIUM/VILANTEROL 62.5/25MCG 7 PUFFS/INHALER INH SCH (08:09)
[2021-04-18] MEDS: FLUTICASONE FUROATE 100MCG 14 PUFFS/INHALER INH SCH (08:09)
[2021-04-18] MEDS: TRIAMCINOLONE ACET NASAL SPRAY 10.8ML BTL NAE SCH (08:10)
[2021-04-18] MEDS: INSULIN ASPART PER UNIT SC SCH ×4 (08:12→21:48)
[2021-04-18] MEDS: levoFLOXacin 750 MG TAB PO SCH (12:31)
[2021-04-18] MEDS: ACETAMINOPHEN 325 MG TAB PO SCH ×2 (17:11→19:49)
--- NOTE | 2021-04-18 18:42 | Hospitalist Progress Note ---
Date of Service April 18, 2021 Assessment & Plan (1) Pneumonia due to COVID-19 virus: Plan: - Remains on HFNC with FiO2 100% with intermittent desats into 80s with minimal exertion -- Has required 2-3 weeks of max high flow or CPAP/BiPAP - Completed Remdesivir and 7-day Abx course (Zithromax/Cefepime); Completed Dexamethasone with a taper for prolonged coverage and now complete - Chest CT * airspace opacities are seen throughout both lungs and likely correspond to the reported history of a viral pneumonia. * Correlate clinically for evidence of superimposed ARDS or pulmonary edema. Radiographic follow-up to resolution is recommended. * Repeat cxr no significant change - Sputum Cx - pseudomonas - was on Cefepime earlier in admission - maybe colonization? vs ongoing infection? - Procal remains below threshold; CRP 17.2 - CO2 improved with BiPAP for majority of ,15, 16th and completion of Diamox - VBG improved - Continue home inhalers LTAC unable to take unless 60% FiO2 or less but they are able to accommodate 30- 40L/min HFNC --> Long discussions with patient/ by previous providers (and updated today on 04/18) and do not believe Mr Anderson may win this valles/overcome as has been on continuous BiPAP again for days, additional medications for CO2 r etention/hypercapnic resp failure and not much improvement, actually worsening on most recent CT --> Possible d/c home on comfort with BiPAP if able to accommodate vs remain here. Discussed with . Patient needing time at moment to think about it Confirmed he does not want intubated, he understands it would not offer him any benefit If he gets into respiratory distress he wants to be on comfort care. However, in meantime, goal to improve hypercapnic state and attempt to wean for LTAC, but understands if no improvement over next couple days with above changes will need continued conversations (2) Acute on chronic respiratory failure with hypoxia and hypercapnia: Plan: - Acute related to CHF (now at dry weight); chronic related to COPD - usually on 4 L NC at home - Chest CT - superimposed ARDS/Edema - Completed steroid course as above - Hold Bumex gtt for now- total of 12 mg daily -- Hopefully can reduce hypotension to allow for metoprolol dosing but BPs are giving limitations - Can continue BiPAP napping/HS and HFNC with up/eating - Further treatment as above - Continue to monitor; Continued discussions regarding comfort (3) Acute on chronic diastolic (congestive) heart failure: Plan: - Remains at an overall negative fluid balance per I&Os; Wt 120.4 kg (possibly dry weight) - Bumex gtt as above; will remove fluid restriction as he appears dry and with the high flow having a lot of dry mouth - Continue to monitor volume status - will monitor renal function with diruresis (4) Atrial fibrillation, permanent: Plan: - Remains elevated (100-130 bpm) - BPs limiting Metoprolol usage or other HR controlling meds - will continue at current dose of 200 mg BID (parameters for systolic > 95) -- Tachycardia likely in the setting ongoing hypoxia - can talk to cardiology tomorrow to see if there is any additional option? He is perm A Fib so unlikely able to cardiovert (if patient would even want this let alone if we could even do this given sedation and respiratory drive) - Continue Eliquis BID (5) CAD (coronary artery disease): Plan: - no ischemic sx's at this time - cont Eliquis, statin, BB (6) COPD (chronic obstructive pulmonary disease): Plan: - As above (7) HTN (hypertension), benign: Plan: - Controlled, episodes of hypotension 2/2 diuresis/afib RVR (8) Impaired fasting glucose: Plan: - last HbA1C < 6% - Due to steroids was initially more elevated but stabilized - will slightly loosen SSI parameters (9) Morbid obesity: Plan: - Noted; BMI 44.4 (10) SHIRA (obstructive sleep apnea): Plan: - typically on CPAP at home; BiPAP as above for hypercap resp failure Plan: VTE Prophylaxis -- Eliquis Continues with significant oxygen requirement and will need LTAC at this time (if can wean) --> CM following - currently FiO2 requirements too much for LTAC if he is uncomfortable or gets into distress then patient expressed transition to comfort care but discussed with that she would like us to continue current plan CAUTIOUS PATIENT HERE >30 DAYS AND MEDICATIONS FELL DAYS PRIOR, RESUMED BUT WILL NEED TO CONTINUE MONITORING TO ENSURE Admission and Anticipated Discharge Date Admission Date: March 14, 2021 Subjective Patient continues to require high flow without the ability to wean. He is more fatigued appearing. Intermittent low BPs this afternoon however easily awakens and follows commands. Review of Systems Review of Systems: All systems reviewed & are unremarkable except as noted in Subjective Physical Exam Physical Exam: PHYSICAL EXAM General Appearance: Chronically ill appearing in NAD but fatigued who is alert but more sleepy today; forgetful HEENT: Head is normocephalic/atraumatic; Hard of hearing Neck: Supple; Trachea midline Heart: Irregulary irregular; tachy with no M/G/R Lungs: Diminished with scatttered wheeze; HFNC in place Abdomen: Soft, non-tender, non-distended; Positive BS x 4 quadrants Extremities: Neg cyanosis or edema Neurological: Speech clear; Neg focal neurologic deficits Psychiatric: Appropriate mood/affect Skin: Normal Color; Warm/Dr Results & Data Results & Data ([facility]) Vital Signs (Past 12 Hours) Vital Signs Temp Pulse Pulse Resp BP Pulse Ox 04/18/21 15:23 36.8 C 132 H 18 78/53 L 87 L 04/18/21 14:23 118 H 26 H 89 L 04/18/21 10:50 131 H 24 89 L 04/18/21 07:50 147 H 24 89 L 04/18/21 07:37 36.5 C 128 H 18 136/72 94 PG Care Time/CCT Total # of Minutes Spent Total Time Spent with Patient: Total time spent is greater than 50% in coordination of care (as documented) at patient's floor/unit and/or counseling patient: Coding Level of Care Code 49432 Subseq Hosp Care Lvl 3 Diagnoses Pneumonia due to COVID-19 virus U07.1; J12.82 Acute on chronic respiratory failure with hypoxia and hypercapnia J96.21; J96.22 Acute on chronic diastolic (congestive) heart failure I50.33 Atrial fibrillation, permanent I48.21 CAD (coronary artery disease) I25.10 Coronary Disease-Associated Artery/Lesion type: [place] artery [place] vs. transplanted heart: [place] heart Associated angina: without angina COPD (chronic obstructive pulmonary disease) J44.1 COPD type: COPD with acute exacerbation HTN (hypertension), benign I10 Impaired fasting glucose R73.01 Morbid obesity E66.01 SHIRA (obstructive sleep apnea) G47.33 (1) CAD (coronary artery disease) Coronary Disease-Associated Artery/Lesion type: [place] artery [place] vs. transplanted heart: [place] heart Associated angina: without angina Qualified Code(s): I25.10 - Atherosclerotic heart disease of [place] coronary artery without angina pectoris (2) COPD (chronic obstructive pulmonary disease) COPD type: COPD with acute exacerbation Qualified Code(s): J44.1 - Chronic obstructive pulmonary disease with (acute) exacerbation
[2021-04-18] MEDS: ATORVASTATIN 40 MG TAB PO SCH (19:50)
[2021-04-19] MEDS: ACETAMINOPHEN 325 MG TAB PO SCH ×6 (00:39→21:49)
[2021-04-19] MEDS: CYANOCOBALAMIN 500 MCG TABLET (VITAMIN B-12) PO SCH (08:16)
[2021-04-19] MEDS: CEROVITE ADV FORMULA TAB PO SCH (08:16)
[2021-04-19] MEDS: PANTOprazole 40 MG TAB PO SCH (08:16)
[2021-04-19] MEDS: TRIAMCINOLONE ACET NASAL SPRAY 10.8ML BTL NAE SCH ×2 (08:17→08:33)
[2021-04-19] MEDS: FLUTICASONE FUROATE 100MCG 14 PUFFS/INHALER INH SCH (08:17)
[2021-04-19] MEDS: THIAMINE HCL 100 MG TAB PO SCH (08:17)
[2021-04-19] MEDS: APIXABAN 5 MG TABLET PO SCH ×2 (08:18→21:51)
[2021-04-19] MEDS: UMECLIDINIUM/VILANTEROL 62.5/25MCG 7 PUFFS/INHALER INH SCH (08:18)
[2021-04-19] MEDS: FERROUS SULFATE 325 MG TAB PO SCH (08:18)
[2021-04-19] MEDS: METOPROLOL SUCC 50MG EXT REL TAB PO SCH ×2 (08:21→21:50)
[2021-04-19] MEDS: guaiFENesin 600 MG TABCR PO SCH ×2 (08:22→21:50)
[2021-04-19] MEDS: INSULIN ASPART PER UNIT SC SCH ×4 (08:31→22:14)
[2021-04-19] MEDS: levoFLOXacin 750 MG TAB PO SCH (10:38)
--- NOTE | 2021-04-19 19:16 | Hospitalist Progress Note ---
Date of Service April 19, 2021 Assessment & Plan (1) Pneumonia due to COVID-19 virus: Plan: - Remains on HFNC with FiO2 100% with intermittent desats into 80s with minimal exertion -- Has required 2-3 weeks of max high flow or CPAP/BiPAP - Completed Remdesivir and 7-day Abx course (Zithromax/Cefepime); Completed Dexamethasone with a taper for prolonged coverage and now complete - Chest CT * airspace opacities are seen throughout both lungs and likely correspond to the reported history of a viral pneumonia. * Correlate clinically for evidence of superimposed ARDS or pulmonary edema. Radiographic follow-up to resolution is recommended. * Repeat cxr no significant change - Sputum Cx - pseudomonas - was on Cefepime earlier in admission - maybe colonization? vs ongoing infection? - Procal remains below threshold; CRP 17.2 - CO2 improved with BiPAP for majority of ,15, 16th and completion of Diamox - VBG improved - Continue home inhalers LTAC unable to take unless 60% FiO2 or less but they are able to accommodate 30- 40L/min HFNC --> Long discussions with patient/ by previous providers (and updated on 04/18) and do not believe Mr Anderson may win this valles/overcome as has been on continuous BiPAP again for days, additional medications for CO2 retenti on/hypercapnic resp failure and not much improvement, actually worsening on most recent CT --> Possible d/c home on comfort with BiPAP if able to accommodate vs remain here. Discussed with . Patient needing time at moment to think about it Confirmed he does not want intubated, he understands it would not offer him any benefit If he gets into respiratory distress he wants to be on comfort care. However, in meantime, goal to improve hypercapnic state and attempt to wean for LTAC, but understands if no improvement over next couple days with above changes will need continued conversations (2) Acute on chronic respiratory failure with hypoxia and hypercapnia: Plan: - Acute related to CHF (now at dry weight); chronic related to COPD - usually on 4 L NC at home - Chest CT - superimposed ARDS/Edema - Completed steroid course as above - Hold Bumex gtt for now- total of 12 mg daily -- Hopefully can reduce hypotension to allow for metoprolol dosing but BPs are giving limitations - Can continue BiPAP napping/HS and HFNC with up/eating - Further treatment as above - Continue to monitor; Continued discussions regarding comfort (3) Acute on chronic diastolic (congestive) heart failure: Plan: - Remains at an overall negative fluid balance per I&Os; - Bumex gtt as above; removed fluid restriction as he appears dry and with the high flow having a lot of dry mouth - Continue to monitor volume status - will monitor renal function (4) Atrial fibrillation, permanent: Plan: - Remains elevated (100-130 bpm) - BPs limiting Metoprolol usage or other HR controlling meds - will continue at current dose of 200 mg BID (parameters for systolic > 95) -- Tachycardia likely in the setting ongoing hypoxia - can talk to cardiology tomorrow to see if there is any additional option? He is perm A Fib so unlikely able to cardiovert (if patient would even want this let alone if we could even do this given sedation and respiratory drive) - Continue Eliquis BID (5) CAD (coronary artery disease): Plan: - no ischemic sx's at this time - cont Eliquis, statin, BB (6) COPD (chronic obstructive pulmonary disease): Plan: - As above (7) HTN (hypertension), benign: Plan: - Soft but mentation is intact today and will monitor (8) Impaired fasting glucose: Plan: - last HbA1C < 6% - Due to steroids was initially more elevated but stabilized - will slightly loosen SSI parameters (9) Morbid obesity: Plan: - Noted; BMI 44.4 (10) SHIRA (obstructive sleep apnea): Plan: - typically on CPAP at home; BiPAP as above for hypercap resp failure Plan: VTE Prophylaxis -- Eliquis Continues with significant oxygen requirement and will need LTAC at this time (if can wean) --> CM following - currently FiO2 requirements too much for LTAC if he is uncomfortable or gets into distress then patient expressed transition to comfort care but discussed with that she would like us to continue current plan Will further discuss with patient and about limited improvement and what their goals would be to determine the next steps. Patient reports feeling comfortable but do want to make sure he does not have suffering. Do not suspect his lungs can recover. As well, as he is now not eating he will continue to further decline. CAUTIOUS PATIENT HERE >30 DAYS AND MEDICATIONS FELL DAYS PRIOR, RESUMED BUT WILL NEED TO CONTINUE MONITORING TO ENSURE Admission and Anticipated Discharge Date Admission Date: March 14, 2021 Subjective No acute events overnight. More interactive today with me. However did not eat meals but is drinking fluids. He stated he had a headache but the Tylenol was helping. Asked if he needed anything more for pain but he said the Tylenol was working fine. He reports ongoing fatigue. Review of Systems Review of Systems: All systems reviewed & are unremarkable except as noted in Subjective Physical Exam Physical Exam: PHYSICAL EXAM General Appearance: Chronically ill appearing in NAD but fatigued who is alert and more interactive today HEENT: Head is normocephalic/atraumatic; Hard of hearing Neck: Supple; Trachea midline Heart: Irregulary irregular; tachy with no M/G/R Lungs: Diminished with scattered wheeze; HFNC in place Abdomen: Soft, non-tender, non-distended; Positive BS x 4 quadrants Extremities: Neg cyanosis or edema Neurological: Speech clear; Neg focal neurologic deficits Psychiatric: Appropriate mood/affect Skin: Normal Color; Warm/Dr Results & Data Results & Data ([facility]) Vital Signs (Past 12 Hours) Vital Signs Temp Pulse Pulse Resp BP Pulse Ox 04/19/21 14:03 132 H 27 H 89 L 04/19/21 14:00 36.5 C 124 H 32 H 84/50 L 90 04/19/21 10:44 120 H 20 90 04/19/21 08:19 131 H 20 91 04/19/21 07:28 36.8 C 123 H 30 H 96/61 L 89 L PG Care Time/CCT Total # of Minutes Spent Total Time Spent with Patient: Total time spent is greater than 50% in coordination of care (as documented) at patient's floor/unit and/or counseling patient: Coding Level of Care Code 65313 Subseq Hosp Care Lvl 3 Diagnoses Pneumonia due to COVID-19 virus U07.1; J12.82 Acute on chronic respiratory failure with hypoxia and hypercapnia J96.21; J96.22 Acute on chronic diastolic (congestive) heart failure I50.33 Atrial fibrillation, permanent I48.21 CAD (coronary artery disease) I25.10 Coronary Disease-Associated Artery/Lesion type: [place] artery [place] vs. transplanted heart: [place] heart Associated angina: without angina COPD (chronic obstructive pulmonary disease) J44.1 COPD type: COPD with acute exacerbation HTN (hypertension), benign I10 Impaired fasting glucose R73.01 Morbid obesity E66.01 SHIRA (obstructive sleep apnea) G47.33 (1) CAD (coronary artery disease) Coronary Disease-Associated Artery/Lesion type: [place] artery [place] vs. transplanted heart: [place] heart Associated angina: without angina Qualified Code(s): I25.10 - Atherosclerotic heart disease of [place] coronary artery without angina pectoris (2) COPD (chronic obstructive pulmonary disease) COPD type: COPD with acute exacerbation Qualified Code(s): J44.1 - Chronic obstructive pulmonary disease with (acute) exacerbation
[2021-04-19] MEDS: ATORVASTATIN 40 MG TAB PO SCH (21:51)
[2021-04-20] MEDS: ACETAMINOPHEN 325 MG TAB PO SCH ×5 (00:31→17:12)
[2021-04-20] MEDS ORDERED: ALBUMIN 25% 100 mL 25 GM/100 ML VIAL IV STA (02:24)
[2021-04-20] MEDS ORDERED: STAT IV Infusion **Titration per Protocol STA ×2 (02:40→03:27)
[2021-04-20] MEDS ORDERED: NOREPINEPHRINE/D5W 8 MG/508 ML BAG IV SCH (02:45)
[2021-04-20] MEDS: ALBUMIN 25% 100 mL 25 GM/100 ML VIAL IV SCH ×2 (02:48→05:16)
[2021-04-20] MEDS ORDERED: GLYCOPYRROLATE 0.2 MG/ML VIAL IV PRN (03:27)
[2021-04-20] MEDS ORDERED: ONDANSETRON INJ 2 MG/ML 2 ML VIAL IV PRN (03:27)
[2021-04-20] MEDS ORDERED: ONDANSETRON 4 MG OD TAB SL PRN (03:27)
[2021-04-20] MEDS ORDERED: LORazepam 0.5 MG/1 ML VIAL IV PRN (03:27)
--- NOTE | 2021-04-20 03:27 | Critical Care Consultation ---
Date of Consultation April 20, 2021 Assessment & Plan (1) Acute on chronic respiratory failure with hypoxia and hypercapnia: Assessment and plan 75-year-old male with complex past medical history including COPD, diastolic heart failure, atrial fibrillation who was recently admitted with COVID-19 pneumonia and has remained on high flow nasal cannula for the past 3 weeks with little to no progress and FiO2 requirements are too high for LTAC. He is DNR/DNI. This evening the patient has become increasingly hypoxic. Chest x-ray significantly worse bilateral opacities from previous study. He is currently on 100% FiO2 on high flow nasal cannula and has a nonrebreather attached over that. He has refused BiPAP. Despite this his oxygen saturations remained in the mid 80s. Patient has become increasingly tachycardic and hypotensive. Labs are pending. In evaluating the patient it appears that he has made little to no progress over the past few weeks and is now decompensated from a respiratory and hemodynamic standpoint. If we were to pursue aggressive measures patient would require intubation, however this is against his wishes. I did speak with the patient's as the patient seemed rather confused and unable to carry on conversation when I evaluated him. I spoke with the about the patient's wishes and discussed in detail his current clinical status. She understands the severity of his disease. Even with aggressive measures it is unlikely that the patient would survive this hospitalization. The patient's is adamant that he would not want intubation and palliative measures were discussed in detail. At this time, the patient's has decided to transition him to comfort care knowing that he would likely pass. Morphine, Ativan, and glycopyrrolate were ordered to assist with withdrawal of care and the patient's is coming to the bedside. Plan was discussed with the patient's nurse as well and the resident for primary team. At this time, we are signing off. Please feel free to contact telecommunications administrator team if further assistance is needed. CRITICAL CARE TIME - I have personally spent 40 minutes of critical care time in the direct management of this patient. This is a life/limb threatening event. This includes time spent evaluating patient, direct bedside care, chart review, placing orders, interpretation of diagnostic studies, discussion with consultants, patient, and family members, as well as other required patient management activities. This time is exclusive of all separately billable procedures, and teaching time and separate from and in addition to any other critical care service time. (2) Pneumonia due to COVID-19 virus: (3) Morbid obesity: (4) SHIRA (obstructive sleep apnea): (5) HTN (hypertension), benign: (6) Atrial fibrillation, permanent: (7) Current use of halfway anticoagulation: (8) COPD (chronic obstructive pulmonary disease): (9) CAD (coronary artery disease): (10) CKD (chronic kidney disease): (11) Chronic diastolic congestive heart failure: (12) DVT prophylaxis: (13) Acute on chronic diastolic (congestive) heart failure: (14) Nutrition deficiency due to insufficient food: History of Present Illness Attending Physician: Jared Irby, History of Present Illness I was asked by the primary team to evaluate the patient for possible transfer to the ICU as he is now hypotensive and severely hypoxic. Patient is a 75-year-old male with history of diastolic heart failure, COPD (on 4 L nasal cannula baseline), morbid obesity, SHIRA, HTN, A. fib who was admitted on March 14 with COVID-19 pneumonia. During his hospitalization patient made decision to become DNR/DNI. He has been severely hypoxic throughout his hospitalization has been on high flow nasal cannula at for weeks. Patient had stated during his hospitalization that if he begins to have respiratory distress he would like to be on comfort care. He has been unable to transfer to LTAC as his FiO2 requirements have been greater than 60%. His prognosis is severely guarded. I did evaluate the patient and had a conversation with the patient's . As discussed in his plan, he is being transitioned to comfort measures at this time and family is coming to bedside prior to withdrawal. Allergies Allergy/AdvReac Type Severity Reaction Status Date / Time adhesive Allergy Mild TAPE-RASH Verified 02/22/21 10:01 oxycodone Allergy Mild RASH Verified 02/22/21 10:01 diltiazem Allergy Unknown Verified 02/22/21 10:01 Home Medications Medication Instructions Recorded Confirmed Type calcium carbonate 600 mg-vitamin 1 cap PO BID 08/21/18 03/14/21 History D3 5 mcg (200 unit) capsule (Calcium 600 + D(3)) cyanocobalamin (vitamin B-12) 1,000 mcg PO QAM 11/05/18 03/14/21 History 1,000 mcg tablet,extended release (Vitamin B-12 ER) albuterol sulfate 90 mcg/actuation 1 puff INHALATION Q6H PRN 04/12/20 03/14/21 History aerosol inhaler triamcinolone acetonide 55 mcg 2 spray INTRANASAL DAILY 04/21/20 03/14/21 History nasal spray aerosol (Nasacort) docusate sodium 100 mg capsule 100 mg PO BID PRN 05/18/20 03/14/21 History apixaban 5 mg tablet (Eliquis) 5 mg PO BID #180 tab 05/19/20 03/14/21 Rx ipratropium 0.5 mg-albuterol 3 mg 3 ml INHALATION BID 08/16/20 03/14/21 History (2.5 mg base)/3 mL nebulization soln multivitamin 1 tab PO QDD 08/16/20 03/14/21 History omega 3-lkw-joh-fish oil 1,000 mg 1 cap PO QAM 08/16/20 03/14/21 History (120 mg-180 mg) capsule (Fish Oil) ferrous sulfate 325 mg (65 mg 325 mg PO QAM #30 tab 08/31/20 03/14/21 Rx iron) tablet,delayed release acetaminophen 325 mg tablet 325 mg PO QID PRN 09/14/20 03/14/21 History (Tylenol) ipratropium 20 mcg-albuterol 100 1 puff INHALATION BID PRN g 10/06/20 03/14/21 History mcg/actuation mist for inhalation metoprolol succinate 100 mg 200 mg PO BID 90 Days #360 tab 10/17/20 03/14/21 Rx tablet,extended release 24 hr bumetanide 2 mg tablet 4 mg PO BID #360 tab 11/01/20 03/14/21 Rx potassium chloride 10 mEq 10 meq PO DAILY #90 tab 11/01/20 03/14/21 Rx tablet,extended release (Klor-Con) atorvastatin 80 mg tablet 80 mg PO HS #90 tab 12/27/20 03/14/21 Rx omeprazole 40 mg capsule,delayed See Rx Instructions .ROUTE 12/27/20 03/14/21 Rx release .COMPLEX #60 capsule metolazone 5 mg tablet 5 mg PO DAILY PRN #30 tab 01/25/21 03/14/21 Rx fluticasone fur. 100 mcg-umeclid 1 inh INHALATION QAM #1 inhaler 03/06/21 03/14/21 Rx 62.5 mcg-vilant 25 mcg inhalat.powder (Trelegy Ellipta) Patient History Medical History (Updated 03/24/21 @ 23:48 by Avila Abraham) Acute blood loss anemia Acute exacerbation of CHF (congestive heart failure) Acute GI bleeding Acute hyperkalemia Acute hypotension Acute kidney injury XIOMY (acute kidney injury) Anemia Atrial fibrillation with slow ventricular response Walker esophagus Bilateral cellulitis of lower leg CAD (coronary artery disease) Cellulitis of right lower leg Closed right hip fracture (04/05/13) Coagulopathy COPD (chronic obstructive pulmonary disease) COPD exacerbation Current use of halfway anticoagulation Difficulty swallowing Digoxin toxicity Digoxin toxicity Edema of left upper arm Gastritis, erosive Gastrointestinal hemorrhage GERD (gastroesophageal reflux disease) Hip fracture (04/03/13) History of heart artery stent x1 2008 @ [facility] by Dr. Luna History of prostate cancer HTN (hypertension), benign Hyperlipidemia Hyperlipidemia Leg edema On anticoagulant therapy SHIRA (obstructive sleep apnea) Permanent atrial fibrillation Persistent atrial fibrillation S/P right hip fracture (04/05/13) Subepithelial gastric mass Symptomatic bradycardia Surgical History History of bilateral cataract extraction History of cardiac cath 2008 @ [facility] - HAD STENT X1 History of colonoscopy History of esophagogastroduodenoscopy (EGD) EUS 03/2019 [facility] EUS 11/21/18 Glidescope 4 with grade 1 view History of lumbar surgery hardware in place History of prostate biopsy malignant History of prostatectomy History of right shoulder replacement History of total left hip replacement History of total right hip replacement History of umbilical hernia repair Hx of nasal septoplasty Family History Uncle Prostate cancer Mother Septicemia Father COPD (chronic obstructive pulmonary disease) Pancreatic cancer Other No family history of adverse response to anesthesia Denies family history of Ovarian cancer Breast cancer Colorectal cancer Social History Smoking Status: Former smoker Tobacco Type: Cigarettes Age Started Using Tobacco: 17; Age Quit Using Tobacco: 54; packs per day: 1; Years Smoked: 37; Second Hand Exposure: No; Hx Alcohol Use: Yes Alcohol type: hard liquor Alcohol Intake Frequency Comment: 2-3 daily Hx Substance Use: No Preferred Language: Liberian Communication Ability: Effective Visual Impairment: No Limitations Hearing Ability: Use of Hearing Aid Gasser Machine Operator Required: No Beliefs That Will Affect Care: None marital status: Current Living Situation: Spouse 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 Symmetrical chest wall movement. Tachypneic. Nonlabored breathing. Cardiovascular: Rate/Rhythm: + tachycardic and + irregularly irregular Vessels: no JVD Extremities: + edema Gastrointestinal (Abdomen): Abdomen obese, soft, nontender. Normal bowel sounds auscultated Neurologic: PERRL, EOMI, accommodation nl, no face palsy, no dysarthria Psychiatric: Orientation: oriented to person Results & Data Results & Data ([facility]) Vital Signs (Past 12 Hours) Vital Signs Temp Pulse Pulse Resp BP Pulse Ox 04/20/21 02:41 120 H 20 87 L 04/19/21 23:36 130 H 28 H 90 04/19/21 22:42 36.8 C 135 H 20 103/64 89 L Coding Level of Care Code Critical Care 1st 30-74 mins Diagnoses Acute on chronic respiratory failure with hypoxia and hypercapnia J96.21; J96.22 Pneumonia due to COVID-19 virus U07.1; J12.82 Morbid obesity E66.01 SHIRA (obstructive sleep apnea) G47.33 HTN (hypertension), benign I10 Atrial fibrillation, permanent I48.21 Current use of halfway anticoagulation Z79.01 COPD (chronic obstructive pulmonary disease) J44.1 COPD type: COPD with acute exacerbation CAD (coronary artery disease) I25.10 Coronary Disease-Associated Artery/Lesion type: [place] artery [place] vs. transplanted heart: [place] heart Associated angina: without angina CKD (chronic kidney disease) N18.9 Chronic diastolic congestive heart failure I50.32 DVT prophylaxis Z29.9 Acute on chronic diastolic (congestive) heart failure I50.33 Nutrition deficiency due to insufficient food E63.9; T73.0XXA (1) COPD (chronic obstructive pulmonary disease) COPD type: COPD with acute exacerbation Qualified Code(s): J44.1 - Chronic obstructive pulmonary disease with (acute) exacerbation (2) CAD (coronary artery disease) Coronary Disease-Associated Artery/Lesion type: [place] artery [place] vs. transplanted heart: [place] heart Associated angina: without angina Qualified Code(s): I25.10 - Atherosclerotic heart disease of [place] coronary artery without angina pectoris
[2021-04-20] MEDS ORDERED: MoRPHine SULF/NSS 250 MG/250 ML BTL IV SCH (04:15)
--- NOTE | 2021-04-20 07:03 | XRay Report ---
XR chest 1V portable CLINICAL HISTORY: worsened hypoxia COMPARISON STUDY: Chest CT April 13, 2021. Chest radiograph April 14, 2021. FINDINGS: Left PICC is in place. Right shoulder arthroplasty is noted. Enlargement of the cardiac [place] is unchanged. Bilateral pleural densities favor extrapleural fat although small bilateral ple ural effusions cannot be excluded. Extensive bilateral airspace opacities have progressed. IMPRESSION: 1. Progression of extensive bilateral airspace opacities. 2. Stable cardiomegaly. 3. Bilateral pleural densities which likely reflect extrapleural flat although small bilateral pleura l effusions could appear similar. No pneumothorax. ACT 112: Negative or not required by law. Electronically signed by: Zackery Jensen M.D. 04/20/2021 7:02 AM
--- NOTE | 2021-04-20 07:56 | Communication Note ---
Date of Service: April 20, 2021 I was called to bedside at 2AM regarding patient refusing bipap and desaturating to 70s on max high flow + oxymask. Evaluated patient and ordered cxr. Cxr showed worsened bilateral opacities and significantly decreased aeration vs 04/14/21 cxr. Side proned patient to right given that right lung field had better aeration. O2 sat was 84%. Considered diuresing but BP at the time did not tolerate. Ordered albumin. RVR rate 130s was thought potentially contributory vs hypovolemic shock. Reached out to ICU team regarding upgrading level of care and potential pressor support. ICU provider examined patient, spoke with family, and continued goals of care discussion. After discussion, patient was converted to comfort measures status, main contributor to this decision was that patient has had overall decline in past month and worsening despite maximum supplemental O2 therapy tolerated. Per previous discussions, patient had reaffirmed DNR/DNI status and requested comfort care should he enter into respiratory distress.
[2021-04-20] MEDS: INSULIN ASPART PER UNIT SC SCH ×3 (09:43→17:12)
[2021-04-20] MEDS: APIXABAN 5 MG TABLET PO SCH (09:44)
[2021-04-20] MEDS: CYANOCOBALAMIN 500 MCG TABLET (VITAMIN B-12) PO SCH (09:44)
[2021-04-20] MEDS: FERROUS SULFATE 325 MG TAB PO SCH (09:44)
[2021-04-20] MEDS: THIAMINE HCL 100 MG TAB PO SCH (09:45)
[2021-04-20] MEDS: CEROVITE ADV FORMULA TAB PO SCH (09:45)
[2021-04-20] MEDS: guaiFENesin 600 MG TABCR PO SCH (09:45)
[2021-04-20] MEDS: METOPROLOL SUCC 50MG EXT REL TAB PO SCH (09:45)
[2021-04-20] MEDS: FLUTICASONE FUROATE 100MCG 14 PUFFS/INHALER INH SCH (09:45)
[2021-04-20] MEDS: PANTOprazole 40 MG TAB PO SCH (09:45)
[2021-04-20] MEDS: UMECLIDINIUM/VILANTEROL 62.5/25MCG 7 PUFFS/INHALER INH SCH (09:46)
[2021-04-20] MEDS: TRIAMCINOLONE ACET NASAL SPRAY 10.8ML BTL NAE SCH (09:46)
[2021-04-20] MEDS: levoFLOXacin 750 MG TAB PO SCH (10:57)
--- NOTE | 2021-04-20 14:07 | Hospitalist Progress Note ---
Date of Service April 20, 2021 Assessment & Plan (1) Comfort measures only status: Plan: Overnight of 04/19, patient was not able to tolerate BiPAP and kept removing however was having difficulty maintaining appropriate saturations on high flow. Decision was made to convert to comfort measures only - Patient is currently on a morphine gtt only at 1 mg/hr and looks comfortable at this time; titrate for comfort - signs of pain or respiratory distress - Ativan PRN - If awake can comfort feed/drink (2) Pneumonia due to COVID-19 virus: Plan: - Remains on HFNC with FiO2 100% with intermittent desats into 80s with minimal exertion-- Has required 2-3 weeks of max high flow or CPAP/BiPAP - Completed Remdesivir and 7-day Abx course (Zithromax/Cefepime); Completed Dexamethasone with a taper for prolonged coverage and now complete - Chest CT * airspace opacities are seen throughout both lungs and likely correspond to the reported history of a viral pneumonia. * Correlate clinically for evidence of superimposed ARDS or pulmonary edema. Radiographic follow-up to resolution is recommended. * Repeat cxr no significant change - Sputum Cx - pseudomonas - was on Cefepime earlier in admission - maybe co lonization? vs ongoing infection? - Procal remains below threshold; CRP 17.2 LTAC unable to take unless 60% FiO2 or less but they are able to accommodate 30- 40L/min HFNC --> Long discussions with patient/ by previous providers (and updated on 04/18) and do not believe Mr Anderson may win this valles/overcome as has been on continuous BiPAP again for days, additional medications for CO2 retention/ hypercapnic resp failure and not much improvement, actually worsening on most recent CT Confirmed he does not want intubated, he understands it would not offer him any benefit If he gets into respiratory distress he wants to be on comfort care. (3) Acute on chronic respiratory failure with hypoxia and hypercapnia: Plan: - Acute related to CHF (now at dry weight); chronic related to COPD - usually on 4 L NC at home - Chest CT - superimposed ARDS/Edema - Completed steroid course as above - Hold Bumex gtt for now- total of 12 mg daily (4) Acute on chronic diastolic (congestive) heart failure: Plan: - Remains at an overall negative fluid balance per I&Os; (5) Atrial fibrillation, permanent: Plan: - Remains elevated (100-130 bpm) - BPs limiting Metoprolol usage or other HR controlling meds - will continue at current dose of 200 mg BID (parameters for systolic > 95) -- Tachycardia likely in the setting ongoing hypoxia - He is perm A Fib so unlikely able to cardiovert (if patient would even want this let alone if we could even do this given sedation and respiratory drive) - Comfort approach (6) CAD (coronary artery disease): Plan: - no ischemic sx's at this time (7) COPD (chronic obstructive pulmonary disease): Plan: - As above (8) HTN (hypertension), benign: Plan: - Soft overall - now on comfort (9) Impaired fasting glucose: Plan: - last HbA1C < 6% - Due to steroids was initially more elevated but stabilized - will slightly loosen SSI parameters (10) Morbid obesity: Plan: - Noted; BMI 44.4 (11) SHIRA (obstructive sleep apnea): Plan: - typically on CPAP at home; BiPAP as above for hypercap resp failure Plan: Patient has converted to comfort measures only; Given his high flow O2 needs he is not suitable for discharge for home hospice. Suspect patient may pass in hours to days Admission and Anticipated Discharge Date Admission Date: March 14, 2021 Subjective Overnight patient was intolerant of BiPAP and did not want to keep this placed. However was desaturating with high flow. 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 Patient is on a morphine drip and looks comfortable. Family is at bedside. They report Mr. Anderson looks comfortable at this time. Bereavement cart at bedside. Review of Systems Review of Systems: Unobtainable due to cognitive status Physical Exam Physical Exam: PHYSICAL EXAM General Appearance: Chronically ill appearing in NAD; family at bedside Results & Data Results & Data ([facility]) Vital Signs (Past 12 Hours) Vital Signs Pulse Resp Pulse Ox 04/20/21 02:41 120 H 20 87 L PG Care Time/CCT Total # of Minutes Spent Total Time Spent with Patient: Total time spent is greater than 50% in coordination of care (as documented) at patient's floor/unit and/or counseling patient: Coding Level of Care Code 83803 Subseq Hosp Care Lvl 3 Diagnoses Pneumonia due to COVID-19 virus U07.1; J12.82 Acute on chronic respiratory failure with hypoxia and hypercapnia J96.21; J96.22 Acute on chronic diastolic (congestive) heart failure I50.33 Atrial fibrillation, permanent I48.21 CAD (coronary artery disease) I25.10 Coronary Disease-Associated Artery/Lesion type: [place] artery [place] vs. transplanted heart: [place] heart Associated angina: without angina COPD (chronic obstructive pulmonary disease) J44.1 COPD type: COPD with acute exacerbation HTN (hypertension), benign I10 Impaired fasting glucose R73.01 Morbid obesity E66.01 SHIRA (obstructive sleep apnea) G47.33 Comfort measures only status Z51.5 (1) CAD (coronary artery disease) Coronary Disease-Associated Artery/Lesion type: [place] artery [place] vs. transplanted heart: [place] heart Associated angina: without angina Qualified Code(s): I25.10 - Atherosclerotic heart disease of [place] coronary artery without angina pectoris (2) COPD (chronic obstructive pulmonary disease) COPD type: COPD with acute exacerbation Qualified Code(s): J44.1 - Chronic obstructive pulmonary disease with (acute) exacerbation
--- NOTE | 2021-04-20 19:56 | Death Pronouncement Note ---
Date of Service April 20, 2021 Pronouncement Note Admission Date Admission Date: March 14, 2021 Date and Time of Date of : 04/20/21 Time of : 18:25 Contributing Factors (1) Comfort measures only status: (2) Pneumonia due to COVID-19 virus: (3) Acute on chronic respiratory failure with hypoxia and hypercapnia: (4) Acute on chronic diastolic (congestive) heart failure: (5) Atrial fibrillation, permanent: (6) CAD (coronary artery disease): (7) COPD (chronic obstructive pulmonary disease): (8) HTN (hypertension), benign: (9) Impaired fasting glucose: (10) Morbid obesity: (11) SHIRA (obstructive sleep apnea): Hospital Course Hospital Course: Please see discharge summary Summary Additional details: Please see discharge summary Additional Data Confirmation of : no pulse, no respirations, no heart sounds and pupils fixed and dilated Family: at bedside Attending/PCP notified?: Yes Attending physician: Jared Irby, DO Was code activated?: No Autopsy requested?: No product examiner notified?: Yes Coding Level of Care Code None Diagnoses Comfort measures only status Z51.5 Pneumonia due to COVID-19 virus U07.1; J12.82 Acute on chronic respiratory failure with hypoxia and hypercapnia J96.21; J96.22 Acute on chronic diastolic (congestive) heart failure I50.33 Atrial fibrillation, permanent I48.21 CAD (coronary artery disease) I25.10 Coronary Disease-Associated Artery/Lesion type: [place] artery [place] vs. transplanted heart: [place] heart Associated angina: without angina COPD (chronic obstructive pulmonary disease) J44.1 COPD type: COPD with acute exacerbation HTN (hypertension), benign I10 Impaired fasting glucose R73.01 Morbid obesity E66.01 SHIRA (obstructive sleep apnea) G47.33
--- NOTE | 2021-04-21 08:47 | Discharge Summary ---
Date of Service April 20, 2021 Admission HPI Per Admitting Provider Mr. Anderson is a 75-year-old male with a history of CAD s/p Cardiac Catheterization 2008 performed for Exertional Angina Pectoris revealed 30%-40% Ostial LMCA, 20% distal LMCA, 30% LAD Diagonal, 20% Proximal RCA, 95% Mid RCA, and 20% Distal RCA stenoses. TAXUS 2.5 x 16 mm JANETH deployed in mid RCA. Postdilated with 3.25 mm balloon. Residual stenosis 0%. Stress Echocardiogram 2013 negative for evidence of myocardial ischemia. Patient also has a history of Hypertension, Permanent Atrial Fibrillation, COPD (on chronic O2 at 4L/min), Sleep Apnea (on BiPAP), Exertional Hypoxemia (on 6 min walk test August 2016), PAD, Chronic Diastolic CHF, and Dyslipidemia who presents to [facility] ER today with generalized weakness, hypotension, and tachycardia. Patient does admit to a "croupy", non-productive cough over the past 2 to 3 days and has had chills at times but denies any fever. This morning he sat up to get out of bed and upon trying to stand he felt weak and could not support his own weight. He tried to sit back down but instead slid down off the side of the mattress. He was unable to get up off of the floor. He called for help from his , but she could not get him up either. Therefore, they called 911 and he was transported here. Patient has otherwise been at baseline. His appetite is typically poor, but that has not changed recently. As far as he knows his body weight is staying stable although he doesn't consistently weigh himself. Leg edema is minimal and his breathing is at baseline. He denies any SOB, unusual RIVERA, orthopnea, or PND. He denies any chest pain or angina pectoris. He denies any pleuritic chest pain, sputum production, or hemoptysis. No loss of sense of taste or smell. No urinary symptoms. He denies any diarrhea, nausea, or vomiting. He denies any recent sick contacts. Please note the patient did not take any of his home medications today. Principal Diagnosis Pseudomonas Pneumonia; Covid-19 Pneumonia; Acute CHF Discharge Exam PHYSICAL EXAM General Appearance: Frail elderly male confirmed with no heart tones/pulse. No respirations or breath sounds. Pupils fixed. 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 Decision was made to convert to comfort measures only - Patient placed on morphine gtt - Ativan PRN (2) Pneumonia due to COVID-19 virus: - Remained on HFNC with FiO2 100% with intermittent desats into 80s with minimal exertion-- Has required 2-3 weeks of max high flow or CPAP/BiPAP - Completed Remdesivir and 7-day Abx course (Zithromax/Cefepime); Completed Dexamethasone with a taper for prolonged coverage and now complete - Chest CT * airspace opacities are seen throughout both lungs and likely correspond to the reported history of a viral pneumonia. * Correlate clinically for evidence of superimposed ARDS or pulmonary edema. Radiographic follow-up to resolution is recommended. * Repeat cxr no significant change - Sputum Cx - pseudomonas - was on Cefepime earlier in admission - maybe colonization? vs ongoing infection? - Procal remains below threshold; CRP 17.2 LT[facility] unable to take unless 60% FiO2 or less but they are able to accommodate 30- 40L/min HFNC Confirmed he did not want intubated, he understands it would not offer him any benefit If he gets into respiratory distress he wanted to be on comfort care. (3) Acute on chronic respiratory failure with hypoxia and hypercapnia: - Acute related to CHF (now at dry weight); chronic related to COPD - usually on 4 L NC at home - Chest CT - superimposed ARDS/Edema - Completed steroid course as above (4) Acute on chronic diastolic (congestive) heart failure: - Remains at an overall negative fluid balance per I&Os; (5) Atrial fibrillation, permanent: - Remains elevated (100-130 bpm) - BPs limiting Metoprolol usage or other HR controlling meds -- Tachycardia likely in the setting ongoing hypoxia - He is perm A Fib so unlikely able to cardiovert (if patient would even want this let alone if we could even do this given sedation and respiratory drive) - Comfort approach (6) CAD (coronary artery disease): - no ischemic sx's at this time (7) COPD (chronic obstructive pulmonary disease): - As above (8) HTN (hypertension), benign: - Soft overall - now on comfort (9) Impaired fasting glucose: - last HbA1C < 6% - Due to steroids was initially more elevated but stabilized (10) Morbid obesity: - Noted; BMI 44.4 (11) SHIRA (obstructive sleep apnea): - typically on CPAP at home; BiPAP as above for hypercap resp failure Patient has converted to comfort measures only; Given his high flow O2 needs he was not suitable for discharge for home hospice. Patient with family present by his side. Total Time Total Time Spent Total Time Spent (In Minutes): Spent greater than 30 minutes preparing patient for discharge. This includes discussion with patient/family, assessment, intervention, medication reconciliation, and coordination of care. Discharge Plan Discharge Items Patient Disposition: Other Date/Time: 04/20/21 18:25 Supervising Physician Co-Signing Physician Notes Attending note: I agree with the summary above. Patient hospitalized for over 3 weeks, he struggled with acute on chronic hypoxic respiratory failure due to COVID 19 pneumonia. He was on BIPAP and high flow his entire stay. He was eating and drinking well for the first 2 weeks but started to get weaker, eat and drink less. He was transitioned to comfort care as it became clear he would not come off high flow or every get out of the hospital. He peacefully with family at his side Coding Level of Care Code D/C DAY MANAGEMENT >30 MINS Diagnoses Comfort measures only status Z51.5 Pneumonia due to COVID-19 virus U07.1; J12.82 Acute on chronic respiratory failure with hypoxia and hypercapnia J96.21; J96.22 Acute on chronic diastolic (congestive) heart failure I50.33 Atrial fibrillation, permanent I48.21 CAD (coronary artery disease) I25.10 Associated angina: without angina Coronary Disease-Associated Artery/Lesion type: [place] artery [place] vs. transplanted heart: [place] heart COPD (chronic obstructive pulmonary disease) J44.1 COPD type: COPD with acute exacerbation HTN (hypertension), benign I10 Impaired fasting glucose R73.01 Morbid obesity E66.01 SHIRA (obstructive sleep apnea) G47.33
== END 2021-04-20 20:25 | disposition expired | DRG 871 ==
LOC: ED 05:48 → EDINP 09:36 → SUATTDRO 09:36 → 2W 11:57 → 3W 04-07 15:58